=== PATIENT | male | born 1940 | race Caucasian/White ===

== ENCOUNTER 2017-08-26 16:28 | Inpatient (IN) | payer MEDICARE ==
--- NOTE | 2017-08-26 17:01 | C.PDOC ---
History Of Present Illness 76-year-old male BIBA s/p syncopal episode. As per him and , he went to the bathroom to have a bowel movement after which he got up, and became diaphoretic and lightheaed. states his lips turned blue, and he syncopized for "ten minutes". She denies head injury. Patient denies palpitations, chest pain or shortness of breath prior to episode. Patient had a similar episode in past, was told he had a mild stroke at the time. Patient denies visual changes, slurred speech, sensory changes, extremity weakness, facial droop. Time Seen by Provider: 08/26/17 16:44 Chief Complaint (Nursing): Weakness/Neurological Deficit History Per: Patient, Family History/Exam Limitations: no limitations Onset/Duration Of Symptoms: Other (Prior to arrival) Activity At Onset Of Symptoms: Standing Associated Symptoms Preceding Syncopal Episode: Lightheadedness Seizure Or Post-ictal Symptoms: None Fall Associated With With Symptoms: Yes, No Injury As Result Of Fall Past Medical History Reviewed: Historical Data, Nursing Documentation, Vital Signs Vital Signs: Last Vital Signs Temp 97.8 F 08/30/17 16:00 Pulse 87 08/30/17 16:00 Resp 20 08/30/17 16:00 BP 120/80 08/30/17 16:00 Pulse Ox 95 08/30/17 16:00 - Medical History PMH: No Chronic Diseases Family History: States: No Known Family Hx Review Of Systems Except As Marked, All Systems Reviewed And Found Negative. Constitutional: Negative for: Fever, Chills Cardiovascular: Negative for: Chest Pain, Palpitations Respiratory: Negative for: Shortness of Breath Gastrointestinal: Negative for: Nausea, Vomiting, Abdominal Pain, Diarrhea Musculoskeletal: Negative for: Neck Pain Neurological: Positive for: Dizziness, Other (syncope). Negative for: Weakness , Numbness, Change in Speech, Altered Mental Status, Headache Physical Exam - Physical Exam Appears: Well, Non-toxic, No Acute Distress Skin: Warm, Dry, No Rash Head: Atraumatic, Normacephalic Eye(s): bilateral: Normal Inspection (no nystagmus), PERRL, EOMI Oral Mucosa: Moist Neck: Normal, Normal ROM Cardiovascular: Rhythm Regular Respiratory: Normal Breath Sounds, No Rales, No Rhonchi, No Wheezing Gastrointestinal/Abdominal: Normal Exam, Bowel Sounds, Soft, No Tenderness Extremity: Normal ROM Extremity: Bilateral: Atraumatic, Normal Color And Temperature, Normal ROM Neurological/Psych: Oriented x3, Normal Speech, Normal Cognition, Normal Cranial Nerves, No Cerebellar Signs, Normal Motor, Normal Sensation ED Course And Treatment - Laboratory Results Result Diagrams: 08/29/17 08:35 08/30/17 08:12 ECG: Interpreted By Me, Viewed By Me ECG Rhythm: Sinus Rhythm ECG Interpretation: No Acute Changes (normal axis, no acute ST/T wave changes) O2 Sat by Pulse Oximetry: 100 (on RA) Pulse Ox Interpretation: Normal - CT Scan/US CT HEAD Other Rad Studies (CT/US): Read By Radiologist, Radiology Report Reviewed CT/US Interpretation: Accession No. : [id number]. Patient Name / ID : DAVID GONZALEZ / [id number]. Exam Date : 08/26/2017 17:40:21 ( Approved ). Study Comment : Sex / Age : M / 76Y. Creator : TAYO GONZALES. Dictator : Welder Experimental : Psychiatric Clinical Nurse Specialist : TAYO GONZALES. Approver2 : Report Date : 08/26/2017 18:03:00. My Comment : . [facility] Division of Radiology. [address] [place] [address]. Tel. no. . . . Patient Name: LISA HERNANDEZ . Pt. Address: [address] [place] [address] Rec #: [id number]. [place] [address]: Claudine Addison DO Pt Phone: Order Location: [facility] : 1940 Male Age: 76 Order #: [id number]. Reason for exam: syncope. . . . . . CT Scan. . . HEAD W/O CONTRAST Exam Date: 08/26/17. . This imaging exam was performed at [facility]. EXAM: CT Head Without Intravenous Contrast. . EXAM DATE/TIME: 08/26/2017 5:00 PM. . CLINICAL HISTORY: 76 years old, male; Signs and symptoms; Syncope and collapse. . TECHNIQUE: Axial computed tomography images of the head/brain without intravenous. contrast. All CT scans at this facility use one or more dose reduction. techniques, viz.: automated exposure control; ma/kV adjustment per patient size. (including targeted exams where dose is matched to indication; i.e. head); or. iterative reconstruction technique. . COMPARISON: There are no prior studies for comparison. . FINDINGS: Brain: There is dilatation of sulci gyri and ventricles. There is no midline. shift. There is decreased attenuation in periventricular white matter. There. are multiple small age-indeterminate lacunar infarcts in the basal ganglia. bilaterally. There are small focal age indeterminate lacunar type infarcts in. periventricular white matter bilaterally. There are no focal masses. There are. no focal hemorrhages. Garg- white differentiation is visualized. Ventricles: See above. Bones: Cranial vault is intact. Soft tissues: unremarkable. Sinuses: There is no acute sinusitis. Ears and mastoids: Middle ears and mastoids are unremarkable. Orbits: Orbital contents are unremarkable. . IMPRESSION: Atrophy and small vessel disease; age indeterminate basal ganglia. and white matter lacunar infarcts, and oblique. . Dictated By: Tayo Gonzales MD., MD. Dictated Date/Time: 08/26/171802. Signed By: Tayo Gonzales MD. Date Signed: 08/26/171802. Transcribed By: [facility] [place]. Transcribe Date/Time: 1802. MERVAT/CARMEN Progress Note: Blood work, EKG, CT Head and UA ordered and reviewed. Patient given PO tylenol for headache, IV NS bolus, IV insulin for hyperglycemia. PO ASA given after CT head (-) for bleed. - Physician Consult Information Physician Contacted: Jeana Brothers Outcome Of Conversation: Discussed patient with Dr. Brothers, agrees with admission for syncope, hypergylcemia, elevated BUN. Patient's production superintendent hydro is Dr. Unger, will enter consult. Medical Decision Making Medical Decision Making: differential diagnoses considered: syncope - vasovagal vs cardiogenic vs neurogenic, dehydration, renal failure, CVA/TIA,, PE Disposition - Disposition Disposition: HOSPITALIZED Disposition Time: 18:25 Condition: STABLE - Clinical Impression Clinical Impression: Hyperglycemia, Elevated BUN, Syncope - Scribe Statement The provider has reviewed the documentation as recorded by the Scribe (Francisca Chinchilla) All medical record entries made by the Scribe were at my direction and personally dictated by me. I have reviewed the chart and agree that the record accurately reflects my personal performance of the history, physical exam, medical decision making, and the department course for this patient. I have also personally directed, reviewed, and agree with the discharge instructions and disposition. Decision To Admit - Pt Status Changed To: Hospital Disposition Of: Inpatient - Admit Certification Admit to Inpatient:: After my assessment, the patient will require hospitalization for at least two midnights. This is because of the severity of symptoms shown, intensity of services needed, and/or the medical risk in this patient being treated as an outpatient. - InPatient: Physician Admission Certification: I certify that this patient requires 2 or more midnights of care for the following reason:: see notes - . Bed Request Type: Telemetry Admitting Physician: Jeana Brothers Patient Diagnosis: Syncope, Hyperglycemia, Elevated BUN
[2017-08-26 17:40] LABS: BASO # 0.1 K/uL (0.0-0.2); BASO % 1.1 % (0.0-2.0); EOS # 0.1 K/uL (0.0-0.7); EOS % 1.3 % (0.0-4.0); HEMATOCRIT 39.8 % (35.0-51.0); LYMPH % 9.1 % (20.0-40.0); MEAN CELL VOLUME 91.2 fL (80.0-94.0); MEAN CORPUSCULAR HEMOGLOBIN 30.5 pg (27.0-31.0); MEAN CORPUSCULAR HGB CONC 33.4 g/dL (33.0-37.0); MONO # 0.7 K/uL (0.0-0.8); MONO % 6.9 % (0.0-10.0); PLATELET COUNT 203 K/uL (130-400); RED CELL DISTRIBUTION WIDTH 12.3 % (11.5-14.5); WHITE BLOOD COUNT 10.4 K/uL (4.8-10.8)
[2017-08-26 17:58] LABS: TROPONIN I 0.028 ng/mL (0.00-0.120)
--- NOTE | 2017-08-26 18:04 | CT ---
EXAM: CT Head Without Intravenous Contrast EXAM DATE/TIME: 08/26/2017 5:00 PM CLINICAL HISTORY: 76 years old, male; Signs and symptoms; Syncope and collapse TECHNIQUE: Axial computed tomography images of the head/brain without intravenous contrast. All CT scans at this facility use one or more dose reduction techniques, viz.: automated exposure control; ma/kV adjustment per patient size (including targeted exams where dose is matched to indication; i.e. head); or iterative reconstruction technique. COMPARISON: There are no prior studies for comparison. FINDINGS: Brain: There is dilatation of sulci gyri and ventricles. There is no midline shift. There is decreased attenuation in periventricular white matter. There are multiple small age-indeterminate lacunar infarcts in the basal ganglia bilaterally. There are small focal age indeterminate lacunar type infarcts in periventricular white matter bilaterally. There are no focal masses. There are no focal hemorrhages. Garg-white differentiation is visualized. Ventricles: See above Bones: Cranial vault is intact. Soft tissues: unremarkable Sinuses: There is no acute sinusitis. Ears and mastoids: Middle ears and mastoids are unremarkable. Orbits: Orbital contents are unremarkable. IMPRESSION: Atrophy and small vessel disease; age indeterminate basal ganglia and white matter lacunar infarcts, and oblique
[2017-08-26 18:15] LABS: ALB/GLOB RATIO 1.3 (1.0-2.1); CALCIUM 9.7 mg/dl (8.6-10.4); POTASSIUM 5.1 mmol/L (3.6-5.2); TOTAL PROTEIN 7.3 g/dL (6.3-8.3)
[2017-08-26] MEDS ORDERED: Sodium Chloride 0.9% 1,000 ML IV ONE (18:15)
[2017-08-26] MEDS ORDERED: (Novolin R) Insulin Human Regular 100 units/ml vial IV STA (18:16)
[2017-08-26] MEDS ORDERED: Sodium Chloride 0.9% 1,000 ML ONE (18:21)
[2017-08-26] MEDS ORDERED: (Novolin R) Insulin Human Regular 100 units/ml vial ONE (18:21)
[2017-08-26 18:33] LABS: NEUTROPHIL 80 % (50-75); TOTAL CELLS COUNTED 100
[2017-08-27] MEDS ORDERED: (Novolin R) Insulin Human Regular 100 units/ml vial IV ONE (02:33)
[2017-08-27 07:23] LABS: HEMATOCRIT 33.9 % (35.0-51.0); MEAN CELL VOLUME 90.6 fL (80.0-94.0); MEAN CORPUSCULAR HEMOGLOBIN 30.9 pg (27.0-31.0); MEAN CORPUSCULAR HGB CONC 34.1 g/dL (33.0-37.0); MEAN PLATELET VOLUME 10.1 fL (7.2-11.7); RED CELL DISTRIBUTION WIDTH 12.1 % (11.5-14.5); WHITE BLOOD COUNT 9.1 K/uL (4.8-10.8)
[2017-08-27 08:07] LABS: CHOLESTEROL 114 mg/dL (0-199); IRON 34 ug/dL (49-181)
[2017-08-27 08:13] LABS: CALCIUM 9.1 mg/dl (8.6-10.4); POTASSIUM 4.2 mmol/L (3.6-5.2)
[2017-08-27] MEDS: (Novolin R) Insulin Human Regular 100 units/ml vial SC SCH ×4 (08:21→21:39)
[2017-08-27 08:28] LABS: THYROID STIMULATING HORMONE 1.4 mIU/L (0.46-4.68)
[2017-08-27 09:03] LABS: FOLATE > 20.0 ng/mL
[2017-08-27] MEDS ORDERED: Metoprolol Succinate 100 mg XL Tab PO SCH (10:00)
[2017-08-27] MEDS ORDERED: Pantoprazole 20 mg EC Tab PO SCH (10:00)
[2017-08-27 10:24] LABS: FREE T4 0.86 ng/dL (0.78-2.19)
[2017-08-27] MEDS: Multiple Vitamins Tab PO SCH (10:24)
[2017-08-27 10:38] LABS: THYROID STIMULATING HORMONE 1.51 mIU/L (0.46-4.68)
--- NOTE | 2017-08-27 12:52 | CP.PCM.CON ---
History of Present Illness - History of Present Illness History of Present Illness: I was asked to evaluate patient by Dr Brothers. Patient is a 76 year old male with PMH HTN, IDDM who present after a syncopal event. The patient states he was at home and attemtped to use the bathroom. After leaving the bathroom, he was noted to have dizziness and syncope. The patient denies associated chest pain or dyspnea. he i snot clear as to the stes of the events after his syncope. He was brought to [facility] for further evaluation. Review of Systems - Constitutional Constitutional: absent: As Per HPI, Anorexia, Chills, Daytime Sleepiness, Excessive Sweating, Fatigue, Fever, Frequent Falls, Headache, Increased Appetite , Lethargy, Malaise, Night Sweats, Snoring, Sleep Apnea, Weight Gain, Weight Loss, Weakness, Other - EENT Eyes: absent: As Per HPI, Blind Spots, Blurred Vision, Change in Vision, Decreased Night Vision, Diplopia, Discharge, Dry Eye, Exophthalmos, Floaters, Irritation, Itchy Eyes, Loss of Peripheral Vision, Pain, Photophobia, Requires Corrective Lenses, Sees Flashes, Spots in Vision, Tunnel Vision, Other Visual Disturbances, Loss of Vision, Other Ears: absent: As Per HPI, Decreased Hearing, Ear Discharge, Ear Pain, Tinnitus, Abnormal Hearing, Disequilibrium, Dizziness, Other Nose/Mouth/Throat: absent: As Per HPI, Epistaxis, Nasal Congestion, Nasal Discharge, Nasal Obstruction, Nasal Trauma, Nose Pain, Post Nasal Drip, Sinus Pain, Sinus Pressure, Bleeding Gums, Change in Voice, Dental Pain, Dry Mouth, Dysphagia, Halitosis, Hoarsness, Lip Swelling, Mouth Lesions, Mouth Pain, Odynophagia, Sore Throat, Throat Swelling, Tongue Swelling, Facial Pain, Neck Pain, Neck Mass, Other - Cardiovascular Cardiovascular: absent: As Per HPI, Acrocyanosis, Chest Pain, Chest Pain at Rest , Chest Pain with Activity, Claudication, Diaphoresis, Dyspnea, Dyspnea on Exertion, Edema, Irregular Heart Rhythm, Pain Radiating to Arm/Neck/Jaw, Leg Edema, Leg Ulcers, Lightheadedness, Orthopnea, Palpitations, Paroxysmal Nocturnal Dyspnea, Pedal Edema, Radiating Pain, Rapid Heart Rate, Slow Heart Rate, Syncope, Other - Respiratory Respiratory: absent: As Per HPI, Cough, Dyspnea, Hemoptysis, Dyspnea on Exertion , Wheezing, Snoring, Stridor, Pain on Inspiration, Chest Congestion, Excessive Mucous Production, Change in Mucous Color, Pain with Coughing, Other - Gastrointestinal Gastrointestinal: absent: As Per HPI, Abdominal Pain, Belching, Bloating, Change in Bowel Habits, Change in Stool Character, Coffee Ground Emesis, Constipation, Cramping, Diarrhea, Dyspepsia, Dysphagia, Early Satiety, Excessive Flatus, Fecal Incontinence, Heartburn, Hematemesis, Hematochezia, Loose Stools, Melena, Nausea, Odynophagia, Temesmus, Vomiting, Other - Genitourinary Genitourinary: absent: As Per HPI, Change in Urinary Stream, Difficulty Urinating, Dysuria, Flank Pain, Hematuria, Pyuria, Nocturia, Urinary Incontinence, Urinary Frequency, Urinary Hesitance, Urinary Urgency, Voiding Freq/Small Amts, Freq UTI, Hx Renal/Bladder Calculi, Hx /Renal Surgery, Bladder Distension, Other - Musculoskeletal Musculoskeletal: absent: As Per HPI, Abnormal Gait, Arthralgias, Atrophy, Back Pain, Deformity, Joint Swelling, Limited Range of Motion, Loss of Height, Muscle Cramps, Muscle Weakness, Myalgias, Neck Pain, Numbness, Radiating Pain into Limb, Stiffness, Tingling, Other - Integumentary Integumentary: absent: As Per HPI, Acne, Alopecia, Bleeding Lesions, Change in Hair, Change in Nails, Change in Pigmentation, Changing Lesions, Dry Skin, Erythema, Furuncle, Hirsutism, Lesions, New Lesions, Non-Healing Lesions, Photosensitivity, Pruritus, Rash, Skin Pain, Skin Ulcer, Sores, Striae, Swelling , Unusual Bruising, Wounds, Jaundice, Other - Neurological Neurological: Syncope - Psychiatric Psychiatric: absent: As Per HPI, Abnormal Sleep Pattern, Anhedonia, Anxiety, Auditory Hallucinations, Behavioral Changes, Change in Appetite, Change in Libido, Confusion, Depression, Difficulty Concentrating, Hallucinations, Homicidal Ideation, Hopelessness, Irritability, Memory Loss, Mood Swings, Panic Attacks, Paranoia, Suicidal Ideation, Visual Hallucinations, Tactile Hallucinations, Other - Endocrine Endocrine: absent: As Per HPI, Change in Body Appearance, Change in Libido, Cold Intolorance, Deepening of Voice, Excessive Sweating, Fatigue, Flushing, Heat Intolorance, Increase in Ring/Shoe/Hat Size, Palpitations, Polydipsia, Polyphagia, Polyuria, Other - Hematologic/Lymphatic Hematologic: absent: As Per HPI, Easy Bleeding, Easy Bruising, Lymphadenopathy, Other Past Patient History - Infectious Disease Hx of Infectious Diseases: None - Past Medical History & Family History Past Medical History?: Yes - Past Social History Smoking Status: Never Smoked - CARDIAC Hx Hypertension: Yes Other/Comment: hx of rheumatic fever - PULMONARY Hx Respiratory Disorders: No - NEUROLOGICAL Hx Neurological Disorder: Yes Hx Syncope: Yes - HEENT Hx HEENT Problems: No - RENAL Hx Chronic Kidney Disease: No - ENDOCRINE/METABOLIC Hx Endocrine Disorders: Yes Hx Diabetes Mellitus Type 2: Yes - HEMATOLOGICAL/ONCOLOGICAL Hx Blood Disorders: No - INTEGUMENTARY Hx Dermatological Problems: No - MUSCULOSKELETAL/RHEUMATOLOGICAL Hx Musculoskeletal Disorders: No Hx Falls: Yes - GASTROINTESTINAL Hx Gastrointestinal Disorders: No - GENITOURINARY/GYNECOLOGICAL Hx Genitourinary Disorders: No - PSYCHIATRIC Hx Psychophysiologic Disorder: No Hx Substance Use: No - SURGICAL HISTORY Hx Surgeries: Yes Other/Comment: left knee replacement, and left nerve repair, left and right hand nerve repair - ANESTHESIA Hx Anesthesia: Yes Hx Anesthesia Reactions: No Hx Malignant Hyperthermia: No Has any member of the family had a problem w/ anesthesia?: No Meds Allergies/Adverse Reactions: Allergies Allergy/AdvReac Type Severity Reaction Status Date / Time Penicillins Allergy Mild Verified 08/26/17 16:58 - Medications Medications: Current Medications Glipizide (Glucotrol) 10 mg PO BID [facility] Last Admin: 08/27/17 10:23 Dose: 10 mg Insulin Human Regular (Novolin R) 0 unit SC [facility] PRN Reason: Protocol Last Admin: 08/27/17 12:30 Dose: 5 unit Metoprolol Tartrate (Lopressor) 100 mg PO DAILY [facility] Last Admin: 08/27/17 10:23 Dose: 100 mg Multivitamins (Hexavitamin) 1 tab PO DAILY [facility] Last Admin: 08/27/17 10:24 Dose: 1 tab Pantoprazole Sodium (Protonix Ec Tab) 20 mg PO DAILY [facility] Last Admin: 08/27/17 10:23 Dose: 20 mg Rosuvastatin Calcium (Crestor) 5 mg PO [facility] Physical Exam - Constitutional Appears: Non-toxic - Head Exam Head Exam: NORMAL INSPECTION - Eye Exam Eye Exam: Normal appearance - Neck Exam Neck exam: Positive for: Full Rom - Respiratory Exam Respiratory Exam: NORMAL BREATHING PATTERN - Cardiovascular Exam Cardiovascular Exam: REGULAR RHYTHM - GI/Abdominal Exam GI & Abdominal Exam: Normal Bowel Sounds - Rectal Exam Rectal Exam: Deferred - Extremities Exam Extremities exam: Positive for: normal inspection, tenderness - Neurological Exam Neurological exam: Alert - Psychiatric Exam Psychiatric exam: Normal Mood - Skin Skin Exam: Intact Results - Vital Signs Recent Vital Signs: Last Vital Signs Temp 98.0 F 08/27/17 09:03 Pulse 79 08/27/17 09:03 Resp 20 08/27/17 09:03 BP 94/58 L 08/27/17 09:03 Pulse Ox 96 08/27/17 09:03 - Labs Result Diagrams: 08/27/17 07:12 08/27/17 07:12 Labs: Laboratory Results - last 24 hr 08/26/17 08/26/17 08/26/17 17:28 17:28 17:28 WBC 10.4 RBC 4.36 L Hgb 13.3 Hct 39.8 MCV 91.2 MCH 30.5 MCHC 33.4 RDW 12.3 Plt Count 203 MPV 10.0 Neut % (Auto) 81.6 H Lymph % (Auto) 9.1 L Child[place] % (Auto) 6.9 Eos % (Auto) 1.3 Baso % (Auto) 1.1 Neut # 8.5 H Lymph # 1.0 Childress # 0.7 Eos # 0.1 Baso # 0.1 Neutrophils % (Manual) 80 H Lymphocytes % (Manual) 16 L Monocytes % (Manual) 4 Platelet Estimate Normal PT 10.6 INR 1.0 APTT 27 Sodium 135 Potassium 5.1 Chloride 97 L Carbon Dioxide 26 Anion Gap 18 BUN 41 H Creatinine 2.1 H Est GFR ( Amer) 37 Est GFR (Non-Af Amer) 31 POC Glucose (mg/dL) Random Glucose 558 H* Hemoglobin A1c Calcium 9.7 Iron TIBC % Saturation Total Bilirubin 1.0 AST 25 ALT 36 Alkaline Phosphatase 92 Total Creatine Kinase 48 L CK-MB (Mass) 1.84 Troponin I 0.0280 Total Protein 7.3 Albumin 4.2 Globulin 3.1 Albumin/Globulin Ratio 1.3 Triglycerides Cholesterol LDL Cholesterol Direct HDL Cholesterol Vitamin B12 Folate Free T4 TSH 3rd Generation Prolactin Serum Ketones 08/26/17 08/26/17 08/26/17 19:50 20:00 21:12 WBC RBC Hgb Hct MCV MCH MCHC RDW Plt Count MPV Neut % (Auto) Lymph % (Auto) Child[place] % (Auto) Eos % (Auto) Baso % (Auto) Neut # Lymph # Child[place] # Eos # Baso # Neutrophils % (Manual) Lymphocytes % (Manual) Monocytes % (Manual) Platelet Estimate PT INR APTT Sodium Potassium Chloride Carbon Dioxide Anion Gap BUN Creatinine Est GFR ( Amer) Est GFR (Non-Af Amer) POC Glucose (mg/dL) 422 H* 438 H* Random Glucose Hemoglobin A1c Calcium Iron TIBC % Saturation Total Bilirubin AST ALT Alkaline Phosphatase Total Creatine Kinase CK-MB (Mass) Troponin I Total Protein Albumin Globulin Albumin/Globulin Ratio Triglycerides Cholesterol LDL Cholesterol Direct HDL Cholesterol Vitamin B12 Folate Free T4 TSH 3rd Generation Prolactin Serum Ketones Negative 08/27/17 08/27/17 08/27/17 02:01 06:39 07:12 WBC RBC Hgb Hct MCV MCH MCHC RDW Plt Count MPV Neut % (Auto) Lymph % (Auto) Child[place] % (Auto) Eos % (Auto) Baso % (Auto) Neut # Lymph # Child[place] # Eos # Baso # Neutrophils % (Manual) Lymphocytes % (Manual) Monocytes % (Manual) Platelet Estimate PT INR APTT Sodium Potassium Chloride Carbon Dioxide Anion Gap BUN Creatinine Est GFR ( Amer) Est GFR (Non-Af Amer) POC Glucose (mg/dL) 416 H* 316 H Random Glucose Hemoglobin A1c Calcium Iron TIBC % Saturation Total Bilirubin AST ALT Alkaline Phosphatase Total Creatine Kinase CK-MB (Mass) Troponin I Total Protein Albumin Globulin Albumin/Globulin Ratio Triglycerides 114 Cholesterol 114 LDL Cholesterol Direct 43 HDL Cholesterol 38 Vitamin B12 751 Folate > 20.0 Free T4 TSH 3rd Generation Prolactin 5.2 Serum Ketones 08/27/17 08/27/17 08/27/17 07:12 07:12 07:12 WBC 9.1 RBC 3.75 L Hgb 11.6 L Hct 33.9 L MCV 90.6 MCH 30.9 MCHC 34.1 RDW 12.1 Plt Count 175 MPV 10.1 Neut % (Auto) Lymph % (Auto) Child[place] % (Auto) Eos % (Auto) Baso % (Auto) Neut # Lymph # Child[place] # Eos # Baso # Neutrophils % (Manual) Lymphocytes % (Manual) Monocytes % (Manual) Platelet Estimate PT INR APTT Sodium Potassium Chloride Carbon Dioxide Anion Gap BUN Creatinine Est GFR ( Amer) Est GFR (Non-Af Amer) POC Glucose (mg/dL) Random Glucose Hemoglobin A1c 12.6 H Calcium Iron 34 L TIBC 265 % Saturation 13 L Total Bilirubin AST ALT Alkaline Phosphatase Total Creatine Kinase CK-MB (Mass) Troponin I Total Protein Albumin Globulin Albumin/Globulin Ratio Triglycerides Cholesterol LDL Cholesterol Direct HDL Cholesterol Vitamin B12 Folate Free T4 TSH 3rd Generation Prolactin Serum Ketones 08/27/17 08/27/17 08/27/17 07:12 09:54 12:11 WBC RBC Hgb Hct MCV MCH MCHC RDW Plt Count MPV Neut % (Auto) Lymph % (Auto) Child[place] % (Auto) Eos % (Auto) Baso % (Auto) Neut # Lymph # Child[place] # Eos # Baso # Neutrophils % (Manual) Lymphocytes % (Manual) Monocytes % (Manual) Platelet Estimate PT INR APTT Sodium 138 Potassium 4.2 Chloride 103 Carbon Dioxide 28 Anion Gap 11 BUN 37 H Creatinine 1.8 H Est GFR ( Amer) 44 Est GFR (Non-Af Amer) 37 POC Glucose (mg/dL) 352 H Random Glucose 316 H Hemoglobin A1c Calcium 9.1 Iron TIBC % Saturation Total Bilirubin AST ALT Alkaline Phosphatase Total Creatine Kinase CK-MB (Mass) Troponin I Total Protein Albumin Globulin Albumin/Globulin Ratio Triglycerides Cholesterol LDL Cholesterol Direct HDL Cholesterol Vitamin B12 Folate Free T4 0.86 TSH 3rd Generation 1.40 1.51 Prolactin Serum Ketones - EKG Data EKG Interpreted by: Myself EKG shows normal: Sinus rhythm Assessment & Plan (1) Syncope Assessment and Plan: uclear etiology. recommend evaluation of left ventricular function with echocardiogram. monitor on telemetry. neuro work up is in progress. Status: Acute (2) Diabetes mellitus Assessment and Plan: medical therapy and management of blood glucose. Status: Acute
[2017-08-27] MEDS: Enoxaparin 30 mg Syringe SC SCH (21:48)
--- NOTE | 2017-08-28 05:04 | CON ---
DATE: 08/27/2017 UNIT NUMBER: [id number] ATTENDING PHYSICIAN: Jeana Brothers MD. The patient is in room number 564, bed 8. REASON FOR CONSULTATION: Syncopal attack. CHIEF COMPLAINT: The patient was brought in by family members via ambulance with a history of passing out spell in the bathroom of his home. From neurologic point of view, I was called in to evaluate him for further management. HISTORY OF PRESENT ILLNESS: Mr. Suresh Aldana is 76-year-old right-handed male, usual state of health, around 1:30 p.m., he went to the bathroom for defecation. Following defecation, before he stood up, he felt dizzy and lightheaded. In spite of that, he went on to get up and then he realized he was on the floor for about 10 minutes. From the fall, he regained his consciousness. He called his grandson for help. They came in to help him out and they brought him here for further evaluation. PAST MEDICAL HISTORY: Hypertension, cardiac failure. History of similar attacks happened 4 years ago. He could not recall what workup was done at that time. History of significant weight loss and sleep disturbances, diabetes mellitus. PERSONAL HISTORY: Denies smoking or alcohol use. ALLERGIES: No known allergies. REVIEW OF SYSTEMS: Sixteen-point system been reviewed. From neuro, syncopal attack. MEDICATIONS: He is on glipizide,Crestor, Glucotrol XL, vitamin, Lopressor, Lovenox, Novolin and Protonix. PHYSICAL EXAMINATION: VITAL SIGNS: Blood pressure 118/75, mean arterial pressure of 89, respiratory rate 16, temperature afebrile. NECK: Supple. No carotid bruit. HEART: Sounds regular. CHEST: Fair entry. EXTREMITIES: No edema. NEUROLOGIC EXAMINATION: Mental status: He is awake, alert and oriented to person, place and time. No anterograde amnesia. Significant retrograde amnesia. No confabulation. No suicidal ideation. No sign of depression. Cranial nerve examination: Visual field intact. Pupil reactive. Extraocular movement normal. No nystagmus. No facial sensory deficit. Significant facial asymmetry manifesting as flattening of the right nasolabial fold. Hearing is normal. Tongue is midline. Good gag. Motor examination: On outpatient hand with eyes closed, no drift noted. Power is symmetric on either side. Sensory tremor noted on outstretched hand with eyes closed. No asterixis. Deep tendon reflexes are absent, both knees are absent, both ankles are absent. Plantars are upgoing on the right side. Right leg was externally rotated during the resting position. Coordination: Mild [id number] dysmetria noted on both sides, right more than his left side. LABORATORY DATA: Blood workup: WBC 9.1, hemoglobin 11.6, hematocrit 33.9, platelet 175. Sodium 138, potassium 4.2, chloride 103, bicarbonate 28, BUN 37, creatinine 1.8, GFR 37, glucose 273. Cholesterol 114, LDL 114, HDL 43. B12 of 751, prolactin 5.2. TSH 1.40. During the admission, the initial CAT scan was reviewed, no acute pathology is noted except atrophy and periventricular ischemic changes. CONCLUSION: 1. As per neurologic examination, patient does show the evidence of syncopal attack, which probably is secondary to his defecation. From neurological point of view, vertebrobasilar insufficiency and drop attack should be ruled out. There is also evidence of bilateral distal symmetric sensory motor neuropathy, which probably is secondary to his diabetes mellitus. 3. The patient also showed evidence of left subcortical dysfunction manifesting as mild right nasolabial fold flattening with Babinski sign on his right side. RECOMMENDATIONS: 1. MRI of the brain. 2. The patient should be on antiplatelets. 3. Blood pressure medication and statin can be given at a lower dose. 4. The patient should be kept out of the bed and physical therapy should be initiated while he is in the hospital. Salas Boyce MD
[2017-08-28] MEDS: (Novolin R) Insulin Human Regular 100 units/ml vial SC SCH ×5 (08:10→21:56)
[2017-08-28] MEDS ORDERED: Perflutren Lipid Microsphere 1.5 ML SUS IV ONE ×2 (08:43→09:00)
[2017-08-28] MEDS: Multiple Vitamins Tab PO SCH (11:06)
[2017-08-28] MEDS: Enoxaparin 30 mg Syringe SC SCH ×2 (11:07→22:45)
--- NOTE | 2017-08-28 11:57 | HP ---
CHIEF COMPLAINT: Syncopal attack. HISTORY OF PRESENT ILLNESS: Mr. Suresh Aldana is a 76-year-old male with past medical history of hypertension and insulin-dependent diabetes mellitus, who came to the emergency room after syncopal attack. The patient stated that he was at home and attempted to use the bathroom. After getting into the bathroom, he was noted to have dizziness and syncope and passed out. He does not remember what happened. Then, patient's nephew called 911. Patient denies associated chest pain or dyspnea. He was brought to [facility] for evaluation, admitted the patient, called Neurology consult, and Cardiology consulted to rule out arrhythmia. The patient's private quality assistant is Dr. Justin Unger, and his consult was called. PAST MEDICAL HISTORY: History of hypertension. FAMILY HISTORY: Father and mother, noncontributory. HABITS: No smoking. No drug. No ethanol. ALLERGIES: PATIENT IS ALLERGIC TO PENICILLIN. HOME MEDICATIONS: Reviewed by me. REVIEW OF SYSTEMS: Patient was seen and examined at the bedside, looking comfortable at the time of examination. No chest pain. No shortness of breath. No nausea, vomiting, or diarrhea. No hematochezia. No swelling of the legs. No palpitation. No headache or dizziness. PHYSICAL EXAMINATION: VITAL SIGNS: Temperature 98, pulse 78, respiratory rate 20, blood pressure 118/75. HEENT: Head is normocephalic and atraumatic. Eyes, PERRLA. Extraocular muscles intact. Conjunctivae clear. Nose patent. Mucous membranes are moist. NECK: Supple. No carotid bruits, JVD, or thyromegaly. CHEST: Bilaterally symmetrical. HEART: S1 and S2 positive. LUNGS: Clear to auscultation. ABDOMEN: Soft. Bowel sounds present. No organomegaly. EXTREMITIES: No edema. No cyanosis. NEUROLOGIC: The patient is awake and alert. Moving all four extremities. No focal deficit. MEDICATIONS: Crestor, Glucotrol, multivitamin, Lopressor, Lovenox, Novolin, Pepcid, and Plavix. LABORATORY DATA: White blood cell is 9.5, hemoglobin 11.6, hematocrit 33.9, platelet 175,000. Sodium 138; potassium 4.2; BUN 37; creatinine 1.8; glucose 272, 273; hemoglobin A1c 12.6. ASSESSMENT AND PLAN: Mr. Suresh Aldana is a 76-year-old male with anemia; renal insufficiency; uncontrolled diabetes mellitus, hemoglobin A1c 12.6. TSH is within normal limits. Cholesterol within normal limits. Serum ketones are negative. CAT scan of the head done, reviewed by me, atrophy and small vessel disease, age indeterminate, basal ganglia and white matter lacunar infarcts on oblique. Required Cardiology consult to rule out arrhythmias and Neurology consult for syncopal attack, but unclear etiology. Recommended evaluation of left ventricular function with echocardiography as per quality assistant. Patient is in telemetry. Neuro workup is in the process. Put patient on sliding scale. Fall precautions. Gastrointestinal and deep venous thrombosis prophylaxes. Repeat labs. We will follow up. Jeana Brothers MD MTDD
--- NOTE | 2017-08-28 18:42 | CP.PCM.PN ---
Subjective - Date & Time of Evaluation Date of Evaluation: 08/28/17 Time of Evaluation: 18:40 - Subjective Subjective: I reviewed the echocardiogram. Left ventricular function is normal. The [facility]'s [facility] Objective - Vital Signs/Intake and Output Vital Signs (last 24 hours): Temp Pulse Resp BP Pulse Ox 98.1 F 68 20 120/70 95 08/28/17 15:26 08/28/17 15:26 08/28/17 15:26 08/28/17 15:26 08/28/17 15:26 Intake and Output: 08/28/17 08/28/17 06:59 18:59 Intake Total 700 850 Balance 700 850 - Medications Medications: Current Medications Clopidogrel Bisulfate (Plavix) 75 mg PO DAILY [facility] Last Admin: 08/28/17 11:06 Dose: 75 mg Enoxaparin Sodium (Lovenox) 30 mg SC Q12 [facility] Last Admin: 08/28/17 11:07 Dose: 30 mg Famotidine (Pepcid) 20 mg PO DAILY [facility] Last Admin: 08/28/17 11:06 Dose: 20 mg Glipizide (Glucotrol) 10 mg PO BID [facility] Last Admin: 08/28/17 18:11 Dose: 10 mg Insulin Human Regular (Novolin R) 0 unit SC ACHS [facility] PRN Reason: Protocol Last Admin: 08/28/17 18:12 Dose: 12 unit Metoprolol Tartrate (Lopressor) 100 mg PO DAILY [facility] Last Admin: 08/28/17 11:10 Dose: 100 mg Multivitamins (Hexavitamin) 1 tab PO DAILY [facility] Last Admin: 08/28/17 11:06 Dose: 1 tab Rosuvastatin Calcium (Crestor) 5 mg PO HS [facility] Last Admin: 08/27/17 21:12 Dose: 5 mg - Labs Labs: 08/27/17 07:12 08/27/17 07:12 PT 10.6 SECONDS (9.7-12.2) 08/26/17 17:28 INR 1.0 08/26/17 17:28 APTT 27 SECONDS (21-34) 08/26/17 17:28 Assessment and Plan (1) Syncope Status: Acute (2) Diabetes mellitus Status: Acute
--- NOTE | 2017-08-28 18:43 | MRI ---
PROCEDURE: MRI BRAIN WITHOUT CONTRAST HISTORY: STROKE COMPARISON: None. TECHNIQUE: Multiplanar, multisequence MR images of the brain were obtained without intravenous contrast enhancement. FINDINGS: HEMORRHAGE: Small cavernoma suggests at the right cerebellum inferomedially as well as at the left caudate head. No additional hemosiderin is appreciated throughout the remaining supra and infratentorial compartments. DWI: No evidence of an acute or early subacute infarction. BRAIN PARENCHYMA: Diffuse cerebral atrophy chronic microangiopathy are reiterated as well as the left thalamic lacune or infarction and likely bilateral basal ganglia and bilateral cerebellar hemispheres inferiorly. There is no mass effect. There is no suspicious extra-axial collection identified. VENTRICLES: Unremarkable. No hydrocephalus. CRANIUM: Unremarkable. ORBITS: Perineural edema is questioned related to the majority of the left optic nerve in the left orbit. Follow-up Orbits MRI without contrast is advised for additional characterization. PARANASAL SINUSES/MASTOIDS: Clear VASCULAR SYSTEM: Skull base flow voids intact. OTHER FINDINGS: None. IMPRESSION: No definite acute intracranial findings are appreciated when correlated with head CT 08/26/2017. 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 Chronic lacune infarcts are appreciated as described above as well as age related neuro degenerative changes. Perineural reaction at the left optic nerve is identified in the left orbit and follow-up Orbits MRI is advised without contrast for additional characterization.
[2017-08-29] MEDS: (Novolin R) Insulin Human Regular 100 units/ml vial SC SCH ×4 (08:50→21:08)
[2017-08-29 08:53] LABS: BASO # 0.1 K/uL (0.0-0.2); BASO % 0.6 % (0.0-2.0); EOS # 0.2 K/uL (0.0-0.7); EOS % 2.7 % (0.0-4.0); HEMATOCRIT 36.1 % (35.0-51.0); LYMPH # 1.5 K/uL (1.0-4.3); LYMPH % 16.7 % (20.0-40.0); MEAN CELL VOLUME 91.4 fL (80.0-94.0); MEAN CORPUSCULAR HEMOGLOBIN 31.2 pg (27.0-31.0); MEAN CORPUSCULAR HGB CONC 34.1 g/dL (33.0-37.0); MEAN PLATELET VOLUME 10.4 fL (7.2-11.7); MONO # 0.8 K/uL (0.0-0.8); RED CELL DISTRIBUTION WIDTH 12.1 % (11.5-14.5); WHITE BLOOD COUNT 9.1 K/uL (4.8-10.8)
[2017-08-29 09:14] LABS: ALB/GLOB RATIO 0.9 (1.0-2.1); CALCIUM 9.9 mg/dl (8.6-10.4); POTASSIUM 4.3 mmol/L (3.6-5.2); TOTAL PROTEIN 7.8 g/dL (6.3-8.3)
[2017-08-29] MEDS: Multiple Vitamins Tab PO SCH (09:37)
[2017-08-29] MEDS: Enoxaparin 30 mg Syringe SC SCH ×2 (09:37→21:53)
--- NOTE | 2017-08-29 12:55 | PN ---
DATE: The patient is a 76-year-old male. SUBJECTIVE: The patient is seen and examined at bedside, looking comfortable. No change in the status. The patient's presentation do not look like cardiac as per utility bag assembler. No fever. No chills. No nausea, vomiting or diarrhea. Now, no headache or dizziness. PHYSICAL EXAMINATION: VITAL SIGNS: Temperature 98.1, pulse 58, respiratory rate 20, blood pressure 130/70, and pulse oximetry 95%. HEENT: Head, normocephalic and atraumatic. Eyes, PERRLA. Extraocular muscles intact. Conjunctivae clear. Nose patent. Mucous membranes moist. NECK: Supple. No carotid bruits, JVD or thyromegaly. CHEST: Bilaterally symmetrical. HEART: S1 and S2 positive. LUNGS: Clear to auscultation. ABDOMEN: Soft. Bowel sounds present. No organomegaly. EXTREMITIES: No edema. No cyanosis. NEUROLOGIC: The patient is awake and alert. Follows simple commands. MEDICATIONS: Lovenox, Pepcid, Glucotrol, Novolin, Lopressor, multivitamins, and Crestor. LABORATORY DATA: White blood cells 9.1, hemoglobin 11.6, hematocrit 36.9, platelets 175,000. Sodium 138, potassium 4.2, BUN 37, creatinine 1.2, and glucose 216. ASSESSMENT: Mr. Rosi Prince is a 76-year-old male with anemia, renal insufficiency, hyperglycemia, came with syncopal attack, seen by the utility bag assembler, Dr. Justin Unger. Of note, per Dr. Unger, any presentation is directly cardiac in origin. The patient went for brain MRI, reviewed by me. No definite acute intracranial findings are appreciated. PLAN: Correlated with the head scan on 08/25/2017; two cavernomas, chronic lacunar infarctions are appreciated. Perineural reaction at the left optic nerve identified the left orbit and need followup orbit MRI. Went for carotid Doppler of the neck, these are pending. Seen by Dr. Salas Boyce, neurologist. According to him, as per neurologic examination, the patient does show the evidence of syncopal attack, which probably was secondary to his desiccation. From neurological point of view, vertebrobasilar insufficiency and drop attack should be ruled out. There is also evidence of bilateral distal asymmetrical level. The patient also showed evidence of left subcortical dysfunction manifested in mild right nasolabial fold attack. Flattening with Babinski sign on the right side. The patient should be on antiplatelets as per Neurology. Blood pressure medication pattern should be given at the lower dose. The patient should be kept out of bed and physical therapy should be appropriate. Gastrointestinal and deep vein thrombosis prophylaxes. Repeat labs. We will follow up. Jeana Brothers MD MTDSiddharth
--- NOTE | 2017-08-29 15:18 | VASCLAB ---
PROCEDURE: HISTORY: syncopy COMPARISON: None available. TECHNIQUE: Grayscale and duplex Doppler evaluation of the cervical carotid and vertebral arteries were performed. The common carotid, carotid bifurcations and cervical Internal Carotid Artery (ICA) and proximal External Carotid Artery (ECA) were evaluated. The vertebral arteries were evaluated for gross patency and flow direction. Report prepared by Elbert Garcia, BS, RVT FINDINGS: RIGHT CAROTID ARTERIES: 1. Common Carotid Artery: No significant focal plaque formation of the right common carotid artery. Maximum Peak Systolic velocity: 93 cm/sec: End-diastolic velocity 16 cm/sec. 2. Carotid Bifurcation: Calcific plaque formation. Maximum Peak Systolic velocity: 80 cm/sec: End-diastolic velocity 15 cm/sec. 3. Internal Carotid Artery: Minimal plaque formation of the right proximal ICA which does not result in hemodynamically significant stenosis. Plaque description: Calcific 3.1. Proximal Segment: Peak systolic velocity 62 cm/sec: End-diastolic velocity 21 cm/sec - % stenosis 0-15% 3.2. Middle Segment: Peak systolic velocity 66 cm/sec: End-diastolic velocity 21 cm/sec - % stenosis 0-15% 3.3. Distal Segment: Peak systolic velocity 60 cm/sec: End-diastolic velocity 22 cm/sec - % stenosis 0-15% 4. External Carotid Artery: No significant focal plaque formation. Peak systolic velocity 54 cm/sec 5. ICA/CCA Ratio: 0.9 LEFT CAROTID ARTERIES: 1. Common Carotid Artery: No significant focal plaque formation of the left common carotid artery. Maximum Peak Systolic velocity: 75 cm/sec: End-diastolic velocity 15 cm/sec. 2. Carotid Bifurcation: Calcific plaque formation. Maximum Peak Systolic velocity: 63 cm/sec: End-diastolic velocity 13 cm/sec. 3. Internal Carotid Artery: Minimal plaque formation of the left proximal ICA which does not result in hemodynamically significant stenosis. Plaque description: Heterogeneous 3.1. Proximal Segment: Peak systolic velocity 77 cm/sec: End-diastolic velocity 25 cm/sec - % stenosis 0-15% 3.2. Middle Segment: Peak systolic velocity 42 cm/sec: End-diastolic velocity 12 cm/sec - % stenosis 0-15% 3.3. Distal Segment: Peak systolic velocity 55 cm/sec: End-diastolic velocity 15 cm/sec - % stenosis 0-15% 4. External Carotid Artery: No significant focal plaque formation. Peak systolic velocity 69 cm/sec 5. ICA/CCA Ratio: 1.0 VERTEBRAL ARTERIES: 1. Right Vertebral Artery: The right vertebral artery flow direction is antegrade. 2. Left Vertebral Artery: The left vertebral artery flow direction is antegrade. OTHER FINDINGS: 1. Right Brachial Blood pressure: 118 mmHg. 2. Left Brachial Blood pressure: 122 mmHg. IMPRESSION: RIGHT: Duplex scan does not suggest hemodynamically significant stenosis of the right extracranial carotid arteries. LEFT: Duplex scan does not suggest hemodynamically significant stenosis of the left extracranial carotid arteries.
--- NOTE | 2017-08-29 16:13 | MRI ---
PROCEDURE: MRI OF THE BRAIN AND ORBITS WITHOUT CONTRAST HISTORY: abnormal mri brain /orbits COMPARISON: None. TECHNIQUE: Multiplanar, multisequence MR images of the brain and orbits were obtained without contrast enhancement. FINDINGS: ORBITS: Fluid signal intensity representing CSF surrounding the head of the left optic nerve is again seen to be somewhat more prominent at the right however no prominent intracranial masses appreciated and this pattern of fluid does not appear masslike. Given that is a unilateral finding and at there is prominent cerebral atrophy comment is likely of there is asymmetric atrophy related to left greater than right optic nerves which is highly favored over other intrinsic pathology such is optic neuritis, particularly in apparently asymptomatic patient relative to the left orbit. The lack of intravenous gadolinium limits interpretation. Clinically correlate further. Globes, extraocular muscles, and retrobulbar fat are unremarkable. No intraorbital mass or infectious/inflammatory changes. PERIORBITAL SPACE: Unremarkable. SINUSES: Grossly clear. BRAIN: No interval change compared to brain MRI 08/28/2017 as imaged. OTHER FINDINGS: None. IMPRESSION: Findings likely represent asymmetric atrophy of the left greater the right optic nerves exposing surrounding CSF greater the left optic nerve at the right as result. Please see discussion above. The lack of intravenous gadolinium limits interpretation somewhat.
[2017-08-29] MEDS ORDERED: Insulin Detemir 100 units/ml Vial (Levemir) SC SCH (22:00)
--- NOTE | 2017-08-29 22:54 | CP.PCM.CON ---
History of Present Illness - History of Present Illness History of Present Illness: uncontrolled DM Past Patient History - Infectious Disease Hx of Infectious Diseases: None - Past Medical History & Family History Past Medical History?: Yes - Past Social History Smoking Status: Never Smoked - CARDIAC Hx Cardiac Disorders: (Cardiac failure) Hx Hypertension: Yes - PULMONARY Hx Respiratory Disorders: No - NEUROLOGICAL Hx Neurological Disorder: Yes Hx Syncope: Yes - HEENT Hx HEENT Problems: No - RENAL Hx Chronic Kidney Disease: No - ENDOCRINE/METABOLIC Hx Endocrine Disorders: Yes Hx Diabetes Mellitus Type 2: Yes - HEMATOLOGICAL/ONCOLOGICAL Hx Blood Disorders: No - INTEGUMENTARY Hx Dermatological Problems: No - MUSCULOSKELETAL/RHEUMATOLOGICAL Hx Musculoskeletal Disorders: No Hx Falls: Yes - GASTROINTESTINAL Hx Gastrointestinal Disorders: No - GENITOURINARY/GYNECOLOGICAL Hx Genitourinary Disorders: No - PSYCHIATRIC Hx Psychophysiologic Disorder: No Hx Substance Use: No - SURGICAL HISTORY Hx Surgeries: Yes Other/Comment: left knee replacement, and left nerve repair, left and right hand nerve repair - ANESTHESIA Hx Anesthesia: Yes Hx Anesthesia Reactions: No Hx Malignant Hyperthermia: No Has any member of the family had a problem w/ anesthesia?: No Meds Allergies/Adverse Reactions: Allergies Allergy/AdvReac Type Severity Reaction Status Date / Time Penicillins Allergy Mild Verified 08/26/17 16:58 - Medications Medications: Current Medications Clopidogrel Bisulfate (Plavix) 75 mg PO DAILY [facility] Last Admin: 08/29/17 09:37 Dose: 75 mg Enoxaparin Sodium (Lovenox) 30 mg SC Q12 [facility] Last Admin: 08/29/17 21:53 Dose: 30 mg Famotidine (Pepcid) 20 mg PO DAILY [facility] Last Admin: 08/29/17 09:38 Dose: 20 mg Glipizide (Glucotrol) 10 mg PO BID [facility] Last Admin: 08/29/17 17:50 Dose: 10 mg Insulin Detemir (Levemir) 15 unit SC HS [facility] Last Admin: 08/29/17 21:53 Dose: 15 unit Insulin Human Regular (Novolin R) 0 unit SC ACHS [facility] PRN Reason: Protocol Last Admin: 08/29/17 21:08 Dose: Not Given Insulin Human Regular (Novolin R) 6 unit SC TIDCC [facility] Metoprolol Tartrate (Lopressor) 100 mg PO DAILY [facility] Last Admin: 08/29/17 09:37 Dose: 100 mg Multivitamins (Hexavitamin) 1 tab PO DAILY [facility] Last Admin: 08/29/17 09:37 Dose: 1 tab Rosuvastatin Calcium (Crestor) 5 mg PO HS [facility] Last Admin: 08/29/17 21:53 Dose: 5 mg Results - Vital Signs Recent Vital Signs: Last Vital Signs Temp 98.0 F 08/29/17 15:15 Pulse 68 08/29/17 18:00 Resp 20 08/29/17 15:15 BP 111/68 08/29/17 15:15 Pulse Ox 95 08/29/17 15:15 - Labs Result Diagrams: 08/29/17 08:35 08/29/17 08:35 Labs: Laboratory Results - last 24 hr 08/29/17 08/29/17 08/29/17 06:14 08:35 08:35 WBC 9.1 RBC 3.95 L Hgb 12.3 Hct 36.1 MCV 91.4 MCH 31.2 H MCHC 34.1 RDW 12.1 Plt Count 169 MPV 10.4 Neut % (Auto) 71.0 Lymph % (Auto) 16.7 L Pacific % (Auto) 9.0 Eos % (Auto) 2.7 Baso % (Auto) 0.6 Neut # 6.4 Lymph # 1.5 Pacific # 0.8 Eos # 0.2 Baso # 0.1 Sodium 134 Potassium 4.3 Chloride 99 Carbon Dioxide 26 Anion Gap 14 BUN 34 H Creatinine 1.7 H Est GFR ( Amer) 48 Est GFR (Non-Af Amer) 39 POC Glucose (mg/dL) 225 H Random Glucose 246 H Calcium 9.9 Total Bilirubin 1.0 AST 19 ALT 29 Alkaline Phosphatase 63 Total Protein 7.8 Albumin 3.6 Globulin 4.2 H Albumin/Globulin Ratio 0.9 L 08/29/17 08/29/17 08/29/17 11:28 16:22 20:59 WBC RBC Hgb Hct MCV MCH MCHC RDW Plt Count MPV Neut % (Auto) Lymph % (Auto) Pacific % (Auto) Eos % (Auto) Baso % (Auto) Neut # Lymph # Pacific # Eos # Baso # Sodium Potassium Chloride Carbon Dioxide Anion Gap BUN Creatinine Est GFR ( Amer) Est GFR (Non-Af Amer) POC Glucose (mg/dL) > 500 H* 293 H 193 H Random Glucose Calcium Total Bilirubin AST ALT Alkaline Phosphatase Total Protein Albumin Globulin Albumin/Globulin Ratio Assessment & Plan (1) Hyperosmolar non-ketotic state in patient with type 2 diabetes mellitus Assessment and Plan: Endocrine consult reason for consult: uncontrolled diabetes Source : patient Mr. Aldana is 76 y/o admitted for syncope , denies hypoglycemia , glucose 558 as per pt. has DM since 1996 (-) neuropathy , (-) retinopathy , (-) nephropathy (-) CAD (-) PVD outpatient diabetes management regimen : glipzide 10 mg po bid inpatient diabetes management regimen : high dose novolog coverage , glipizide 10 mg po bid blood glucose log :200-> 500 , as per nurse in charge eat almost 100 % NO hypoglycemia Allergy PCN Past medical history :HTN , hyperlipidemia Past surgical history : Left knee surgery Psychiatry history : denies Social history : denies smoking , ETOH use , illicit drug use Family history : denies ROS: Constitutional: denies fever ,tiredness/weakness .HEENT: denies earache, change in voice .Respiratory: denies cough, sob . CVS :no chest pain, no palpitations . Abdomen : no abdominal pain, no nausea /vomiting , no change bowel movement . CARTON REPAIRER : denies light-headedness, dizziness. Extremities : no edema , no tremors . Skin: no itching, no rash Physical exam Well developed AAO x3 , ,NAD , frail , pale VSS HEENT: norm cephalic, atraumatic , no lid lag , no exophthalmos NECK: supple, no palpable lymphadenopathy THYROID: no palpable thyromegaly , not tender CHEST: fair air entry, bilateral, CVS: S1,S2 ABDOMEN: bowel sound present, benign, obese, no wide purple striae , no bruises EXTREMITIES: no edema, clubbing or cyanosis, no palpable hand tremors Skin : acanthosis nigricans lab: tsh 1.51 , a1c 12.6 , AG 34, Hco3 26 cr 1.7 was 2 on admission Assessment hyperosmolar hyperglycemic state HHS ?diabetic nephropathy plan start IV NS @ 100 cc /h d/c glipizide start levemir 15 units first today stop Novolog start Novoloin R low dose coverage, no 3 am coverage start novoloin R 6 units tid with meals if eat > 60% obtain c-peptide , serum ketones , bmp plan communicated with nurse in charge who read back the instructions correctly Thank you for allowing me to participate in the care of the patient, we will follow with you. Status: Acute (2) Diabetic nephropathy Status: Acute - Date & Time Time: 09:00
[2017-08-29] MEDS: Sodium Chloride 0.9% 1,000 ML IV SCH (23:40)
--- NOTE | 2017-08-30 03:29 | EEG ---
DATE: This is a 16-channel electroencephalogram of an awake and drowsy adult. During the study, photic stimulation was performed. Hyperventilation was not performed. The resting electroencephalogram consists of 5 Hz to 7 Hz theta activity seen throughout the bilateral cortical leads. There is no focal slowing or paroxysmal activity is noted. The photic stimulation did not evoke driving response noted at 2 Hz to 20 Hz. IMPRESSION: This is a mildly abnormal electroencephalogram because the patient persistent flowing throughout the record suggestive of bilateral cerebral dysfunction This probably is secondary to metabolic, vascular or degenerative process. Please correlate the findings with neurological and radiological studies. I strongly recommend that if the clinical suspicion is high, the patient should have extended-hour ambulatory video electroencephalogram, which can be done as an outpatient. Salas Boyce MD
[2017-08-30] MEDS: (Novolin R) Insulin Human Regular 100 units/ml vial SC SCH ×6 (07:16→19:01)
--- NOTE | 2017-08-30 07:28 | PN ---
DATE: 08/29/2017 NEUROLOGICAL PROBLEM: Syncopal attack. PHYSICAL EXAMINATION: VITAL SIGNS: Blood pressure 117/75, mean arterial pressure of 89, respiratory rate 16, temperature 99.3, pulse rate 86, regular. NEUROLOGIC: The patient is more awake, alert, oriented to person, place and time. No confusion. No depression. Speech is clear. Cranial nerve examination: Sensory, motor examination all within normal as compared with the previous exam. 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 The patient also showed a periventricular old ischemic changes, all consistent with angiopathic changes secondary to his underlying chronic illness. The patient also showed some perineural reaction of MRI brain in left optic nerve. However, the patient does not have clear any evidence of visual disturbances in his left eye. Electroencephalogram had been reviewed. The patient showed bilateral slow activities, theta waves without any focal slowing noted. No paroxysmal activities noted. ASSESSMENT AND PLAN: If medically stable, the patient can be discharged following MRI of the orbits and should have a followup visit with me as outpatient. In the meantime, I do not want to start any antiepileptic drugs for now. Salas Boyce MD
--- NOTE | 2017-08-30 07:41 | PN ---
The patient is 76-year-old male. SUBJECTIVE: The patient is seen and examined at the bedside, looking comfortable. No nausea, vomiting or diarrhea. No hematuria or hematochezia. No swelling of the leg. No chest pain. No palpitations. No headache. No dizziness. PHYSICAL EXAMINATION: VITAL SIGNS: Temperature 98.0, pulse 58, respiratory rate 20, blood pressure 111/68, pulse oximetry of 95%. HEENT: Head: Normocephalic, atraumatic. Eyes: PERRLA. Extraocular muscles are intact. Conjunctivae clear. Nose: Patent. Mucous membranes are moist. NECK: Supple. No carotid bruits. No thyromegaly. CHEST: Bilaterally symmetrical. HEART: S1 and S2 positive. LUNGS: Clear to auscultation. ABDOMEN: Soft. Bowel sounds present. No organomegaly. EXTREMITIES: No edema, no cyanosis. NEUROLOGIC: The patient is awake and alert, moving all 4 extremities. No focal deficit. LABORATORY DATA: White blood cells 9.1, hemoglobin 12.3, hematocrit 36.1, platelets 169. Sodium 135, potassium 4.3, BUN 34, creatinine 1.7, glucose 246. ASSESSMENT AND PLAN: Suresh Mckinnon is a 76-year-old male, admitted for syncope with history of hypertension, hyperlipidemia, has hyperosmolar hyperglycemic state, diabetic nephropathy. Started the patient on IV fluid [address] Epstein discontinued glipizide, started Levemir; stopped Novolog, started Novolin R, low dosage coverage. Start NovoLog R 6 units, tie it with meals if eat more than 50%. Obtain C-peptide, serum ketones, BNP. Discussion done with the nursing staff. Reviewed Dr. Tete Augustin's notes, diabetic nephropathy. Computer Science Teacher is on the case. I did MRA of face and neck. Seen by Dr. Justin Unger, boilermaker ship and neurologist, Dr. Salas Boyce, out of bed physical therapy. Repeat labs. We will follow up. Jeana Brothers MD OLE
[2017-08-30] MEDS: Sodium Chloride 0.9% 1,000 ML IV SCH ×2 (08:50→19:00)
[2017-08-30 08:59] LABS: BLOOD UREA NITROGEN 32 mg/dL (9-20); CALCIUM 9.9 mg/dl (8.6-10.4); CARBON DIOXIDE 28 mmol/L (22-30); CHLORIDE 102 mmol/L (98-107); GFR AFRICAN-AMERICAN 48; GLUCOSE,RANDOM 74 mg/dL (75-110); POTASSIUM 3.9 mmol/L (3.6-5.2); SODIUM 137 mmol/L (132-148)
[2017-08-30] MEDS: Multiple Vitamins Tab PO SCH (10:01)
[2017-08-30] MEDS: Enoxaparin 30 mg Syringe SC SCH (10:01)
--- NOTE | 2017-08-30 14:57 | CP.PCM.PN ---
Subjective - Date & Time of Evaluation Date of Evaluation: 08/30/17 Time of Evaluation: 14:57 - Subjective Subjective: PT SEEN AND CLEARED BY DR. BARTLETT FOR D/C TODAY. CLEARED BY CONSULTS. I LEFT SEVERAL VOICE MESSAGE FOR DR. BOB REGARDING PT'S D/C INSULIN, HOWEVER, NO CALL BACK. [employer] PROVIDED RX FOR ALL MEDS INCLUDING INSULINS. PT STATES HE HAS A GLUCOMETER AT HOME AND HIS SISTER IN LAW CAN ALSO GIVE HIM INSULIN. GURVINDER PEREA TOLD BY ME TO DO INSULIN AND DIABETIC TEACHING W PT WITH [employer]. HOME CARE REFERRAL WITH [facility], BUT PT REFUSED. CM REFERRED TO DIFFERENT COMPANY AND THEY WILL FOLLOW UP WITH THE PT TOMORROW AT THE HOME. [employer] HAD LENGTHY DISCUSSION WITH THE PT REGARDING D/C PLAN, MEDICATIONS, INSULIN, FOLLOW UP VISITS. NO FURTHER ORDERS; BELOW PLEASE SEE THE D/C INFORMATION SENT WITH PT. FOLLOW UP WITH DR. BARTLETT IN HER OFFICE ON 09/05/17 AT 2 PM PER HER REQUEST. FOLLOW UP WITH DR. BOB (DOCTOR FOR YOUR SUGAR) IN HER OFFICE NEXT WEEK---CALL THE OFFICE TOMORROW AND MAKE AN APPOINTMENT FOR NEXT WEEK. DURING THIS VISIT DR. BOB CAN DISCUSS WITH YOU FURTHER RECOMMENDATIONS FOR YOUR DIABETES. FOLLOW UP WITH DR. BOX (NEUROLOGY) AND DR. GAITAN (HEART DOCTOR) IN THE OFFICE WITHIN 1-2 WEEKS----CALL FOR APPT TIME. WE HAVE ARRANGED A HOME CARE COMPANY TO VISIT YOU YOU ARE TAKING INSULIN FOR THE FIRST TIME. THEY WILL CONTACT YOU TO SEE WHAT DAY AND TIME THEY WILL SEE YOU. YOU HAVE SHOWN AND TAUGHT HOW TO GIVE YOURSELF INSULIN. TAKE EXACTLY PRESCRIBED TO YOU: NOVOLOG FLEXPEN 6 UNITS INJECTED 3 TIMES A DAY (BEFORE EACH MEAL); IT IS VERY IMPORTANT FOR YOU TO REMEMBER THAT IF YOU DO NOT EAT A MEAL , DO NOT TAKE YOUR INSULIN DOSE! TAKE THE INSULIN LONG YOU EAT. ALSO, HAVE A BEDTIME SNACK SO THAT YOUR SUGAR WILL NOT DROP WHILE YOU SLEEP. CHECK YOUR SUGAR THREE TIMES DAY BEFORE EACH MEAL, AND RECORD ON PAPER/ TAKE THIS WHEN YOU SEE DR. BOB IN THE OFFICE. CONTINUE YOUR OTHER MEDICATIONS AT HOME USUAL. FOR FURTHER QUESTIONS, CONTACT DR. BARTLETT'S OFFICE. Objective - Vital Signs/Intake and Output Vital Signs (last 24 hours): Temp Pulse Resp BP Pulse Ox 97.2 F L 98 H 18 103/67 95 08/30/17 08:21 08/30/17 10:00 08/30/17 08:21 08/30/17 10:00 08/30/17 08:21 - Medications Medications: Current Medications Clopidogrel Bisulfate (Plavix) 75 mg PO DAILY [facility] Last Admin: 08/30/17 10:01 Dose: 75 mg Enoxaparin Sodium (Lovenox) 30 mg SC Q12 [facility] Last Admin: 08/30/17 10:01 Dose: 30 mg Famotidine (Pepcid) 20 mg PO DAILY [facility] Last Admin: 08/30/17 10:01 Dose: 20 mg Sodium Chloride (Sodium Chloride 0.9%) 1,000 mls @ 100 mls/hr IV .Q10H [facility] Last Admin: 08/30/17 08:50 Dose: Not Given Insulin Detemir (Levemir) 15 unit SC [facility] Last Admin: 08/29/17 21:53 Dose: 15 unit Insulin Human Regular (Novolin R) 0 unit SC ACHS [facility] PRN Reason: Protocol Last Admin: 08/30/17 12:54 Dose: 3 unit Insulin Human Regular (Novolin R) 6 unit SC TIDCC [facility] Last Admin: 08/30/17 12:53 Dose: 6 unit Metoprolol Tartrate (Lopressor) 100 mg PO DAILY [facility] Last Admin: 08/30/17 10:01 Dose: Not Given Multivitamins (Hexavitamin) 1 tab PO DAILY [facility] Last Admin: 08/30/17 10:01 Dose: 1 tab Rosuvastatin Calcium (Crestor) 5 mg PO HS [facility] Last Admin: 08/29/17 21:53 Dose: 5 mg - Labs Labs: 08/29/17 08:35 08/30/17 08:12 PT 10.6 SECONDS (9.7-12.2) 08/26/17 17:28 INR 1.0 08/26/17 17:28 APTT 27 SECONDS (21-34) 08/26/17 17:28
[2017-08-30 16:50] VITALS: BP 120/80; PULSE 87; RESP 20; TEMP 97.8
--- NOTE | 2017-08-30 19:30 | CP.PCM.CON ---
Past Patient History - Infectious Disease Hx of Infectious Diseases: None - Past Medical History & Family History Past Medical History?: Yes - Past Social History Smoking Status: Never Smoked - CARDIAC Hx Cardiac Disorders: (Cardiac failure) Hx Hypertension: Yes - PULMONARY Hx Respiratory Disorders: No - NEUROLOGICAL Hx Neurological Disorder: Yes Hx Syncope: Yes - HEENT Hx HEENT Problems: No - RENAL Hx Chronic Kidney Disease: No - ENDOCRINE/METABOLIC Hx Diabetes Mellitus Type 2: Yes - HEMATOLOGICAL/ONCOLOGICAL Hx Blood Disorders: No - INTEGUMENTARY Hx Dermatological Problems: No - MUSCULOSKELETAL/RHEUMATOLOGICAL Hx Musculoskeletal Disorders: No Hx Falls: Yes - GASTROINTESTINAL Hx Gastrointestinal Disorders: No - GENITOURINARY/GYNECOLOGICAL Hx Genitourinary Disorders: No - PSYCHIATRIC Hx Psychophysiologic Disorder: No Hx Substance Use: No - SURGICAL HISTORY Hx Surgeries: Yes Other/Comment: left knee replacement, and left nerve repair, left and right hand nerve repair - ANESTHESIA Hx Anesthesia: Yes Hx Anesthesia Reactions: No Hx Malignant Hyperthermia: No Has any member of the family had a problem w/ anesthesia?: No Meds Home Medications: Home Medication List Medication Instructions Recorded Confirmed Type Clopidogrel [Plavix] 75 mg PO DAILY #30 tab 08/30/17 Rx Insulin Aspart [Novolog FLEXPEN] 6 unit SQ TIDCC #1 08/30/17 Rx Insulin Detemir [Levemir] 15 unit SQ HS #1 08/30/17 Rx Allergies/Adverse Reactions: Allergies Allergy/AdvReac Type Severity Reaction Status Date / Time Penicillins Allergy Mild Verified 08/26/17 16:58 - Medications Medications: Current Medications Clopidogrel Bisulfate (Plavix) 75 mg PO DAILY [facility] Last Admin: 08/30/17 10:01 Dose: 75 mg Enoxaparin Sodium (Lovenox) 30 mg SC Q12 [facility] Last Admin: 08/30/17 10:01 Dose: 30 mg Famotidine (Pepcid) 20 mg PO DAILY [facility] Last Admin: 08/30/17 10:01 Dose: 20 mg Sodium Chloride (Sodium Chloride 0.9%) 1,000 mls @ 100 mls/hr IV .Q10H [facility] Last Admin: 08/30/17 19:00 Dose: Not Given Insulin Detemir (Levemir) 15 unit SC HS [facility] Last Admin: 08/29/17 21:53 Dose: 15 unit Insulin Human Regular (Novolin R) 0 unit SC ACHS [facility] PRN Reason: Protocol Last Admin: 08/30/17 19:01 Dose: 1 unit Insulin Human Regular (Novolin R) 6 unit SC TIDCC [facility] Last Admin: 08/30/17 18:59 Dose: Not Given Metoprolol Tartrate (Lopressor) 100 mg PO DAILY [facility] Last Admin: 08/30/17 10:01 Dose: Not Given Multivitamins (Hexavitamin) 1 tab PO DAILY [facility] Last Admin: 08/30/17 10:01 Dose: 1 tab Rosuvastatin Calcium (Crestor) 5 mg PO HS [facility] Last Admin: 08/29/17 21:53 Dose: 5 mg Physical Exam - Constitutional Appears: Well - Head Exam Head Exam: ATRAUMATIC, NORMAL INSPECTION, NORMOCEPHALIC - Eye Exam Eye Exam: EOMI, Normal appearance, PERRL Pupil Exam: NORMAL ACCOMODATION, PERRL - ENT Exam ENT Exam: Mucous Membranes Moist, Normal Exam - Neck Exam Neck exam: Positive for: Normal Inspection - Respiratory Exam Respiratory Exam: Decreased Breath Sounds - Cardiovascular Exam Cardiovascular Exam: REGULAR RHYTHM, +S1, +S2 - GI/Abdominal Exam GI & Abdominal Exam: Diminished Bowel Sounds, Soft - Rectal Exam Rectal Exam: Deferred Results - Vital Signs Recent Vital Signs: Last Vital Signs Temp 97.8 F 08/30/17 16:00 Pulse 87 08/30/17 16:00 Resp 20 08/30/17 16:00 BP 120/80 08/30/17 16:00 Pulse Ox 95 08/30/17 16:00 - Labs Result Diagrams: 08/29/17 08:35 08/30/17 08:12 Labs: Laboratory Results - last 24 hr 08/29/17 08/30/17 08/30/17 20:59 06:08 08:12 Sodium 137 Potassium 3.9 Chloride 102 Carbon Dioxide 28 Anion Gap 11 BUN 32 H Creatinine 1.7 H Est GFR ( Amer) 48 Est GFR (Non-Af Amer) 39 POC Glucose (mg/dL) 193 H 77 Random Glucose 74 L Calcium 9.9 Serum Ketones Negative 08/30/17 08/30/17 11:19 16:23 Sodium Potassium Chloride Carbon Dioxide Anion Gap BUN Creatinine Est GFR ( Amer) Est GFR (Non-Af Amer) POC Glucose (mg/dL) 261 H 184 H Random Glucose Calcium Serum Ketones
[2017-08-30 19:38] VITALS: O2SAT 100
--- NOTE | 2017-09-02 13:44 | CARD ---
APPROVED REPORT EXAM: Two-dimensional and M-mode echocardiogram with Doppler, color Doppler with contrast. Other Information Quality : GoodRhythm : INDICATION Syncope Definity Contrast Used. RISK FACTORS Diabetes 2D DIMENSIONS IVSd1.1 (0.7-1.1cm)LVDd4.1 (3.9-5.9cm) PWd1.1 (0.7-1.1cm)LVDs2.9 (2.5-4.0cm) FS (%) 28.0 %LVEF (%)54.6 (>50%) M-Mode DIMENSIONS Left Atrium (MM)3.14 (2.5-4.0cm)Aortic Root4.35 (2.2-3.7cm) Aortic Cusp Exc.2.32 (1.5-2.0cm) Aortic Valve AI P 1/2 [id number] Mitral Valve MV E Qygasulx27.8cm/sMV A Axkdnkul645.4cm/sE/A ratio0.6 TDI E/Lateral E'0.0E/Medial E'0.0 Tricuspid Valve TR Peak [id number]/sTR Peak Gr.[id number] <Conclusion> Technically limited and diffciult study. Normal LV systoli cfunction. Trace to mild AR. Normal chamber size.
--- NOTE | 2017-09-05 22:34 | CARD ---
APPROVED REPORT EKG Measurement Heart [id number] <Conclusion> Sinus rhythm with premature atrial complexes Left axis deviation Abnormal ECG
--- NOTE | 2017-09-06 05:16 | DS ---
CHIEF COMPLAINT: Syncopal attack. HISTORY OF PRESENT ILLNESS: Mr. Suresh Aldana is a 76-year-old male with past medical history of hypertension, syncope, and diabetes mellitus, who came to the emergency room after syncopal attack. The patient stated that he was at home and attempting to use bathroom. After getting into the bathroom, he noted that he has dizziness and syncope and passed out. Does not remember what happened. Then patient's nephew called 911 and transferred the patient to [facility]. We did CAT scan of the head; carotid Doppler of the neck; orbit, face, and neck MRI. Seen by the farm forestry and garden workers. He stayed in the hospital for a couple of days, then cleared by the Neurology and discharged home to follow up with primary care physician. Patient is seen by Dr. Tete Augustin, technical data analyst; Dr. Salas Boyce, neurologist; Dr. Oj Washington, homicide squad sergeant. Prescription of medications is given. PAST MEDICAL HISTORY: Hypertension. FAMILY HISTORY: Father and mother, noncontributory. HABITS: No smoking. No drug. No ethanol. ALLERGIES: PATIENT IS ALLERGIC TO PENICILLIN. HOME MEDICATIONS: Reviewed by me. REVIEW OF SYSTEMS: Patient was seen and examined at the bedside, looking comfortable. No nausea, vomiting, or diarrhea. No hematemesis or hematochezia. No swelling of the legs. No chest pain. No palpitation. No headache. No dizziness. No fever. No chills. PHYSICAL EXAMINATION: VITAL SIGNS: Temperature 97.6, pulse 87, blood pressure 120/80, respiratory rate 20. HEENT: Head is normocephalic and atraumatic. Eyes, PERRLA. Extraocular muscles intact. Conjunctivae clear. Nose patent. Mucous membranes are moist. NECK: Supple. No carotid bruits, JVD, or thyromegaly. CHEST: Bilaterally symmetrical. HEART: S1 and S2 positive. LUNGS: Clear to auscultation. ABDOMEN: Soft. Bowel sounds present. No organomegaly. EXTREMITIES: No edema. No cyanosis. NEUROLOGIC: The patient is awake and alert. Moving all four extremities. No focal deficit. LABORATORY DATA: White blood cells 9.1, hemoglobin 12.3, hematocrit 36.1, platelet 169. Sodium 137, potassium 3.9, BUN 32, creatinine 1.7, glucose 187. ASSESSMENT AND PLAN: Mr. Suresh Aldana is a 76-year-old male, came with syncopal attack, has renal insufficiency, seen by Dr. Kimberly Washington, hyperglycemia, diabetes mellitus, looks like noncompliant. Cholesterol, triglycerides are within normal limits. Did CAT scan and MRI of the head, seen by neurologist. History of hypertension, hypercholesterolemia, hyperosmolar hyperglycemia, diabetic nephropathy, given IV fluid. Dr. Epstein discontinued the glipizide, started patient on Levemir and Novolin. I reviewed Dr. Tete Augustin's notes. Dr. Kimberly Washington is treating him for diabetic nephropathy. MRA of the face and neck done, reviewed by me. Seen by the farm forestry and garden workers, Dr. Justin Unger, patient's private farm forestry and garden workers. Patient improved. Plan was to give physical therapy and send for rehab. Patient refused to go to rehab. PT given and discharged home with prescription to follow primary care physician and Neurology. Jeana Brothers MD
== END 2017-08-30 20:12 | disposition home or self-care (01) | DRG 312 ==
LOC: C.ER 16:28 → C.9E 18:25 → C.5S 19:45
PROVIDERS: ADMIT Internal Medicine; ATTEND Internal Medicine
DX: R55 Syncope and collapse (principal); E11.00 Type 2 diabetes mellitus with hyperosmolarity without nonketotic hyperglycemic-hyperosmolar coma (NKHHC); E11.51 Type 2 diabetes mellitus with diabetic peripheral angiopathy without gangrene; E11.21 Type 2 diabetes mellitus with diabetic nephropathy; G62.9 Polyneuropathy, unspecified; I11.0 Hypertensive heart disease with heart failure; I50.9 Heart failure, unspecified; E78.5 Hyperlipidemia, unspecified; N28.9 Disorder of kidney and ureter, unspecified; D64.9 Anemia, unspecified; Z96.652 Presence of left artificial knee joint; Z79.02 Long term (current) use of antithrombotics/antiplatelets; Z79.4 Long term (current) use of insulin

== ENCOUNTER 2017-10-28 17:28 | Inpatient (IN) | payer MEDICARE ==
[2017-10-28] MEDS ORDERED: Oxycodone/Acetaminophen 5/325 mg Tab PO STA (18:35)
[2017-10-28] MEDS ORDERED: Oxycodone/Acetaminophen 5/325 mg Tab ONE (18:45)
[2017-10-28 18:54] LABS: BASO % 0.8 % (0.0-2.0); EOS # 0.3 K/uL (0.0-0.7); HEMOGLOBIN 12.3 g/dL (12.0-18.0); LYMPH # 1.6 K/uL (1.0-4.3); MEAN CELL VOLUME 90.6 fL (80.0-94.0); MEAN CORPUSCULAR HEMOGLOBIN 30.2 pg (27.0-31.0); MEAN CORPUSCULAR HGB CONC 33.3 g/dL (33.0-37.0); MEAN PLATELET VOLUME 9.1 fL (7.2-11.7); MONO # 0.4 K/uL (0.0-0.8); MONO % 6.9 % (0.0-10.0); NEUT # 3.2 K/uL (1.8-7.0); NEUT % 58.3 % (50.0-75.0); NRBC % 0.1 % (0.0-2.0); RBC 4.07 Mil/uL (4.40-5.90); RED CELL DISTRIBUTION WIDTH 12.7 % (11.5-14.5); WHITE BLOOD COUNT 5.4 K/uL (4.8-10.8)
--- NOTE | 2017-10-28 19:05 | C.PDOC ---
History Of Present Illness Suresh Aldana is a 77 year old male, whose past medical history includes HTN and HLD, who presents to the emergency department complaining of left lower dental pain along with burning chest discomfort with reflux that is not digitally reproducible since last night. Patient notes having a neurological and heart evaluation taken on August 2016 and the results came back negative. According to , patient cannot ambulate due to weakness in bilateral legs and states he is unsafe to be home. Patient denies shortness of breath, headache, fever, chills cough, nausea, vomiting, diarrhea, diaphoresis, jaw pain, back pain, or other complaints. Time Seen by Provider: 10/28/17 18:26 Chief Complaint (Nursing): Chest Pain History Per: Patient, Family History/Exam Limitations: no limitations Onset/Duration Of Symptoms: Days (last night ) Current Symptoms Are (Timing): Still Present Quality: Burning Associated Symptoms: denies: Nausea, Syncope Exacerbating Factors: None Alleviating Factors: None Recent travel outside of the [place]: No Additional History Per: Family Past Medical History Reviewed: Historical Data, Nursing Documentation, Vital Signs Vital Signs: Last Vital Signs Temp 97.4 F L 10/28/17 17:56 Pulse 91 H 10/28/17 17:56 Resp 16 10/28/17 17:56 BP 122/78 10/28/17 17:56 Pulse Ox 96 10/28/17 20:13 - Medical History PMH: HTN, Hyperlipidemia Denies: Chronic Kidney Disease Family History: States: No Known Family Hx - Social History Hx Alcohol Use: No Hx Substance Use: No - Immunization History Hx Tetanus Toxoid Vaccination: No Hx Influenza Vaccination: Yes Hx Pneumococcal Vaccination: Yes Review Of Systems Constitutional: Negative for: Fever, Chills ENT: Positive for: Mouth Pain (left lower dental pain ) Cardiovascular: Positive for: Chest Pain (burning discomfort with reflux) Respiratory: Negative for: Cough, Shortness of Breath Gastrointestinal: Negative for: Nausea, Vomiting, Abdominal Pain Genitourinary: Negative for: Dysuria, Frequency Musculoskeletal: Negative for: Neck Pain Neurological: Positive for: Weakness (bilateral legs). Negative for: Headache Physical Exam - Physical Exam Appears: Well, Non-toxic, In Acute Distress (moderate distress due to dental pain) Skin: Normal Color, Warm, Dry Head: Atraumatic, Normacephalic Eye(s): bilateral: Normal Inspection Teeth: No Normal Dentition, Other (foul mouth odor and cap on left moral area without swelling and no thrush) Throat: Normal, No Erythema, No Exudate Cardiovascular: Rhythm Regular, No Murmur Respiratory: Normal Breath Sounds, No Rales, No Rhonchi, No Wheezing Gastrointestinal/Abdominal: Normal Exam, Bowel Sounds (Normal), Soft, No Tenderness, No Distention, No Guarding, No Rebound Neurological/Psych: Oriented x3, Normal Speech ED Course And Treatment - Laboratory Results Result Diagrams: 10/28/17 18:46 10/28/17 18:46 Lab Interpretation: Normal (bnp/trop neg.) ECG: Interpreted By Me ECG Rhythm: Sinus Rhythm ECG Interpretation: Normal Rate From EC O2 Sat by Pulse Oximetry: 96 (room air) Pulse Ox Interpretation: Normal - Radiology CXR: Interpreted by Me CXR Interpretation: Yes: No Acute Disease Progress Note: clinda, pepcid, percocet Medical Decision Making Medical Decision Making: Impression: 77 y/o male with foul mouth odor and cap on left moral area without swelling and no thrush Differential Diagnosis included but are not limited to: GERD, dental infection vs gingival dz, gait apraxia- feels too unstable gait to take home. Hgb nl Plan: -- EKG -- CXR -- Maalox, Clindamycin, and Oxycodone -- Reassess and disposition Progress Notes: Case discussed with Dr. Srinivasan who admitted patient August 2017 and referred him to on-call medicine. Case also discussed with Dr. Washington, who is on-call medicine, and accepts patient to his care. Disposition Doctor Will See Patient In The: Office Counseled Patient/Family Regarding: Studies Performed, Diagnosis - Disposition Disposition: HOSPITALIZED Disposition Time: 19:23 Condition: GOOD - Clinical Impression Clinical Impression: Chest discomfort, GERD (gastroesophageal reflux disease), Dentalgia, Gait apraxia of elderly - Scribe Statement The provider has reviewed the documentation as recorded by the Scribe Scribe Attestation: Wendy Mendoza MD Scribe Attestation: All medical record entries made by the Scribe were at my direction and personally dictated by me. I have reviewed the chart and agree that the record accurately reflects my personal performance of the history, physical exam, medical decision making, and the department course for this patient. I have also personally directed, reviewed, and agree with the discharge instructions and disposition.
[2017-10-28 19:06] LABS: ALB/GLOB RATIO 1.1 (1.0-2.1); ALBUMIN 4.1 g/dL (3.5-5.0); CALCIUM 10.3 mg/dl (8.6-10.4)
[2017-10-28 19:10] LABS: PROTHROMBIN TIME 11.1 SECONDS (9.7-12.2)
[2017-10-28] MEDS ORDERED: Clindamycin 600mg/50ml D5W 600 MG/50 ML VIAL IVPB SCH (19:15)
[2017-10-28 19:17] LABS: TROPONIN I 0.022 ng/mL (0.00-0.120)
[2017-10-28] MEDS ORDERED: Alum-Mag Hydrox-Simethicone Susp (30 mL) PO STA (19:34)
[2017-10-28] MEDS ORDERED: Aluminum Hydroxide/Magnesium Hydroxide Susp (30 mL) ONE (19:56)
[2017-10-28] MEDS ORDERED: Clindamycin 600mg/50ml NS 600 MG/50 ML BAG IVPB ONE (19:56)
--- NOTE | 2017-10-29 08:18 | RAD ---
PROCEDURE: CHEST RADIOGRAPH, 1 VIEW HISTORY: SOB COMPARISON: None available. FINDINGS: LUNGS: There is focal opacity/consolidation at the left lower lung. There is a smaller consolidation at the right lung base. The possibility of pneumonia or atelectasis should be considered. PLEURA: Blunting of both costophrenic angle larger on the left. CARDIOVASCULAR: The cardiac silhouette is enlarged. OSSEOUS STRUCTURES: No significant abnormalities. VISUALIZED UPPER ABDOMEN: Normal. OTHER FINDINGS: None. IMPRESSION: Bilateral lower lobes consolidation larger on the left. Differential consideration include pneumonia atelectasis or less likely neoplasm. Further assessment is suggested.
--- NOTE | 2017-10-29 08:19 | RAD ---
HISTORY: repeat- prior unacceptble COMPARISON: Comparison is made with the previous same-day exam FINDINGS: LUNGS: Interval significant and almost complete resolving of the previously seen bibasilar opacities compared to the previous exam likely due to atelectasis. The patient is rotated to the right. PLEURA: No significant pleural effusion identified, no pneumothorax apparent. CARDIOVASCULAR: Normal. OSSEOUS STRUCTURES: No significant abnormalities. VISUALIZED UPPER ABDOMEN: Normal. OTHER FINDINGS: None. IMPRESSION: Interval significant improvement and almost complete resolving of the previously seen bilateral lower lobe opacities likely represent atelectasis.
[2017-10-29] MEDS ORDERED: Oxycodone/Acetaminophen 5/325 mg Tab PO PRN (09:34)
[2017-10-29] MEDS ORDERED: Moxifloxacin IV 400mg/250ml NS 400 MG/250 ML BAG IVPB SCH (09:45)
[2017-10-29] MEDS: Pantoprazole 40 mg EC Tab PO SCH (10:33)
[2017-10-29] MEDS: Ciprofloxacin 400mg/200ml D5W 400 MG/200 ML BAG IVPB SCH ×2 (10:33→21:31)
[2017-10-29] MEDS: Enoxaparin 40 mg Syringe SC SCH (10:33)
[2017-10-29] MEDS ORDERED: Oxycodone/Acetaminophen 5/325 mg Tab ONE (10:52)
--- NOTE | 2017-10-29 11:44 | CT ---
PROCEDURE: CT HEAD WITHOUT CONTRAST. HISTORY: r/o stroke COMPARISON: Comparison is made with the previous study dated 08/26/2017 TECHNIQUE: Axial computed tomography images were obtained through the head/brain without intravenous contrast. Radiation dose: Total exam DLP = 997.4 mGy-cm. This CT exam was performed using one or more of the following dose reduction techniques: Automated exposure control, adjustment of the mA and/or kV according to patient size, and/or use of iterative reconstruction technique. FINDINGS: HEMORRHAGE: No intracranial hemorrhage. BRAIN: Moderate atrophy and chronic microvascular ischemic disease are again noted. Small less than 5 millimeter foci of encephalomalacia again noted at the right intraforaminal kilos left caudate head likely represent lacunar chronic infarctions. Small less than 5 millimeter encephalomalacia is also noted at the left thalamus. No evidence of mass effect or midline shift. VENTRICLES: Unremarkable. No hydrocephalus. CALVARIUM: Unremarkable. PARANASAL SINUSES: Unremarkable as visualized. No significant inflammatory changes. MASTOID AIR CELLS: Unremarkable as visualized. No inflammatory changes. OTHER FINDINGS: None. IMPRESSION: No evidence of acute intracranial hemorrhage or territorial infarction. No significant interval change when compared to the previous study dated 08/26/2017.
[2017-10-29] MEDS: Azithromycin 500 MG in Sodium Chloride 0.9% 250 ML IVPB SCH (12:30)
--- NOTE | 2017-10-29 13:09 | CP.PCM.CON ---
History of Present Illness - History of Present Illness History of Present Illness: CONSULT DICTATED 23 YRS OF GAIT DISTURBANCE SEVERE DIABETIC NEUROPATHY NEEDS WORK UP PT EMG/NCV OP NO FURTHER WORK UP FROM NEURO NOW Past Patient History - Infectious Disease Hx of Infectious Diseases: None - Past Medical History & Family History Past Medical History?: Yes - Past Social History Smoking Status: Never Smoked - CARDIAC Hx Hypertension: Yes - PULMONARY Hx Respiratory Disorders: No - NEUROLOGICAL Hx Neurological Disorder: Yes Hx Syncope: Yes - HEENT Hx HEENT Problems: No - RENAL Hx Chronic Kidney Disease: No - ENDOCRINE/METABOLIC Hx Diabetes Mellitus Type 2: Yes - HEMATOLOGICAL/ONCOLOGICAL Hx Blood Disorders: No - INTEGUMENTARY Hx Dermatological Problems: No - MUSCULOSKELETAL/RHEUMATOLOGICAL Hx Musculoskeletal Disorders: No Hx Falls: Yes - GASTROINTESTINAL Hx Gastrointestinal Disorders: No - GENITOURINARY/GYNECOLOGICAL Hx Genitourinary Disorders: No - PSYCHIATRIC Hx Substance Use: No - SURGICAL HISTORY Hx Surgeries: Yes Other/Comment: left knee replacement, and left nerve repair, left and right hand nerve repair - ANESTHESIA Hx Anesthesia: Yes Hx Anesthesia Reactions: No Hx Malignant Hyperthermia: No Meds Allergies/Adverse Reactions: Allergies Allergy/AdvReac Type Severity Reaction Status Date / Time Penicillins Allergy Mild Verified 08/26/17 16:58 - Medications Medications: Current Medications Enoxaparin Sodium (Lovenox) 40 mg SC DAILY [facility] Last Admin: 10/29/17 10:33 Dose: 40 mg Clindamycin Phosphate (Cleocin) 600 mg in 50 mls @ 100 mls/hr IVPB STAT [facility] Azithromycin 500 mg/ Sodium (Chloride) 250 mls @ 250 mls/hr IVPB DAILY [facility] Last Admin: 10/29/17 12:30 Dose: 250 mls/hr Ciprofloxacin (Cipro 400mg/200ml Dsw) 400 mg in 200 mls @ 133 mls/hr IVPB Q12H [facility] Last Admin: 10/29/17 10:33 Dose: 133 mls/hr Oxycodone/Acetaminophen (Percocet 5/325 Mg Tab) 1 tab PO Q6H PRN PRN Reason: Pain, moderate (4-7) Stop: 11/01/17 09:35 Last Admin: 10/29/17 10:52 Dose: 1 tab Pantoprazole Sodium (Protonix Ec Tab) 40 mg PO DAILY [facility] Last Admin: 10/29/17 10:33 Dose: 40 mg Results - Vital Signs Recent Vital Signs: Last Vital Signs Temp 98.0 F 10/29/17 07:25 Pulse 96 H 10/29/17 10:52 Resp 18 10/29/17 10:52 BP 126/79 10/29/17 10:52 Pulse Ox 96 10/29/17 10:52 - Labs Result Diagrams: 10/28/17 18:46 10/28/17 18:46 Labs: Laboratory Results - last 24 hr 10/28/17 10/28/17 10/28/17 18:34 18:46 18:46 WBC 5.4 RBC 4.07 L Hgb 12.3 Hct 36.9 MCV 90.6 MCH 30.2 MCHC 33.3 RDW 12.7 Plt Count 223 MPV 9.1 Neut % (Auto) 58.3 Lymph % (Auto) 29.0 [place] % (Auto) 6.9 Eos % (Auto) 5.0 H Baso % (Auto) 0.8 Neut # (Auto) 3.2 Lymph # (Auto) 1.6 [place] # (Auto) 0.4 Eos # (Auto) 0.3 Baso # (Auto) 0.0 PT 11.1 INR 1.0 APTT 30 Sodium Potassium Chloride Carbon Dioxide Anion Gap BUN Creatinine Est GFR ( Amer) Est GFR (Non-Af Amer) POC Glucose (mg/dL) Random Glucose Hemoglobin A1c Calcium Total Bilirubin AST ALT Alkaline Phosphatase Troponin I NT-Pro-B Natriuret Pep Total Protein Albumin Globulin Albumin/Globulin Ratio Influenza Typ A,B (EIA) Negative for flu a/b 10/28/17 10/29/17 10/29/17 18:46 10:37 12:44 WBC RBC Hgb Hct MCV MCH MCHC RDW Plt Count MPV Neut % (Auto) Lymph % (Auto) [place] % (Auto) Eos % (Auto) Baso % (Auto) Neut # (Auto) Lymph # (Auto) [place] # (Auto) Eos # (Auto) Baso # (Auto) PT INR APTT Sodium 136 Potassium 4.5 Chloride 99 Carbon Dioxide 22 Anion Gap 20 BUN 35 H Creatinine 2.0 H Est GFR ( Amer) 39 Est GFR (Non-Af Amer) 32 POC Glucose (mg/dL) 234 H Random Glucose 160 H Hemoglobin A1c 8.5 H D Calcium 10.3 Total Bilirubin 0.8 AST 19 ALT 19 L D Alkaline Phosphatase 60 Troponin I 0.0220 NT-Pro-B Natriuret Pep 293 Total Protein 7.9 Albumin 4.1 Globulin 3.8 Albumin/Globulin Ratio 1.1 Influenza Typ A,B (EIA)
[2017-10-29 13:46] LABS: FREE T4 1.21 ng/dL (0.78-2.19)
--- NOTE | 2017-10-29 14:04 | CP.PCM.HP ---
Past Patient History - Infectious Disease Hx of Infectious Diseases: None - Past Medical History & Family History Past Medical History?: Yes - Past Social History Smoking Status: Never Smoked - CARDIAC Hx Hypertension: Yes - PULMONARY Hx Respiratory Disorders: No - NEUROLOGICAL Hx Neurological Disorder: Yes Hx Syncope: Yes - HEENT Hx HEENT Problems: No - RENAL Hx Chronic Kidney Disease: No - ENDOCRINE/METABOLIC Hx Diabetes Mellitus Type 2: Yes - HEMATOLOGICAL/ONCOLOGICAL Hx Blood Disorders: No - INTEGUMENTARY Hx Dermatological Problems: No - MUSCULOSKELETAL/RHEUMATOLOGICAL Hx Musculoskeletal Disorders: No Hx Falls: Yes - GASTROINTESTINAL Hx Gastrointestinal Disorders: No - GENITOURINARY/GYNECOLOGICAL Hx Genitourinary Disorders: No - PSYCHIATRIC Hx Substance Use: No - SURGICAL HISTORY Hx Surgeries: Yes Other/Comment: left knee replacement, and left nerve repair, left and right hand nerve repair - ANESTHESIA Hx Anesthesia: Yes Hx Anesthesia Reactions: No Hx Malignant Hyperthermia: No Meds Allergies/Adverse Reactions: Allergies Allergy/AdvReac Type Severity Reaction Status Date / Time Penicillins Allergy Mild Verified 08/26/17 16:58 Physical Exam - Constitutional Appears: Well - Head Exam Head Exam: ATRAUMATIC, NORMAL INSPECTION, NORMOCEPHALIC - Eye Exam Eye Exam: EOMI, Normal appearance, PERRL Pupil Exam: NORMAL ACCOMODATION, PERRL - ENT Exam ENT Exam: Mucous Membranes Moist, Normal Exam - Neck Exam Neck exam: Positive for: Normal Inspection - Respiratory Exam Respiratory Exam: Decreased Breath Sounds - Cardiovascular Exam Cardiovascular Exam: REGULAR RHYTHM, +S1, +S2 - GI/Abdominal Exam GI & Abdominal Exam: Diminished Bowel Sounds, Soft - Rectal Exam Rectal Exam: Deferred Results - Vital Signs Recent Vital Signs: Last Vital Signs Temp 98.0 F 10/29/17 07:25 Pulse 86 10/29/17 12:42 Resp 18 10/29/17 12:42 BP 128/87 10/29/17 12:42 Pulse Ox 96 10/29/17 12:42 - Labs Result Diagrams: 10/28/17 18:46 10/28/17 18:46 Labs: Laboratory Results - last 24 hr 10/28/17 10/28/17 10/28/17 18:34 18:46 18:46 WBC 5.4 RBC 4.07 L Hgb 12.3 Hct 36.9 MCV 90.6 MCH 30.2 MCHC 33.3 RDW 12.7 Plt Count 223 MPV 9.1 Neut % (Auto) 58.3 Lymph % (Auto) 29.0 [place] % (Auto) 6.9 Eos % (Auto) 5.0 H Baso % (Auto) 0.8 Neut # (Auto) 3.2 Lymph # (Auto) 1.6 [place] # (Auto) 0.4 Eos # (Auto) 0.3 Baso # (Auto) 0.0 ESR PT 11.1 INR 1.0 APTT 30 Sodium Potassium Chloride Carbon Dioxide Anion Gap BUN Creatinine Est GFR ( Amer) Est GFR (Non-Af Amer) POC Glucose (mg/dL) Random Glucose Hemoglobin A1c Calcium Total Bilirubin AST ALT Alkaline Phosphatase Troponin I C-React Prot High Sens NT-Pro-B Natriuret Pep Total Protein Albumin Globulin Albumin/Globulin Ratio Free T4 TSH 3rd Generation Influenza Typ A,B (EIA) Negative for flu a/b 10/28/17 10/29/17 10/29/17 18:46 10:37 12:44 WBC RBC Hgb Hct MCV MCH MCHC RDW Plt Count MPV Neut % (Auto) Lymph % (Auto) [place] % (Auto) Eos % (Auto) Baso % (Auto) Neut # (Auto) Lymph # (Auto) [place] # (Auto) Eos # (Auto) Baso # (Auto) ESR 72 H PT INR APTT Sodium 136 Potassium 4.5 Chloride 99 Carbon Dioxide 22 Anion Gap 20 BUN 35 H Creatinine 2.0 H Est GFR ( Amer) 39 Est GFR (Non-Af Amer) 32 POC Glucose (mg/dL) 234 H Random Glucose 160 H Hemoglobin A1c Calcium 10.3 Total Bilirubin 0.8 AST 19 ALT 19 L D Alkaline Phosphatase 60 Troponin I 0.0220 C-React Prot High Sens NT-Pro-B Natriuret Pep 293 Total Protein 7.9 Albumin 4.1 Globulin 3.8 Albumin/Globulin Ratio 1.1 Free T4 TSH 3rd Generation Influenza Typ A,B (EIA) 10/29/17 10/29/17 12:44 12:44 WBC RBC Hgb Hct MCV MCH MCHC RDW Plt Count MPV Neut % (Auto) Lymph % (Auto) [place] % (Auto) Eos % (Auto) Baso % (Auto) Neut # (Auto) Lymph # (Auto) [place] # (Auto) Eos # (Auto) Baso # (Auto) ESR PT INR APTT Sodium Potassium Chloride Carbon Dioxide Anion Gap BUN Creatinine Est GFR ( Amer) Est GFR (Non-Af Amer) POC Glucose (mg/dL) Random Glucose Hemoglobin A1c 8.5 H D Calcium Total Bilirubin AST ALT Alkaline Phosphatase Troponin I C-React Prot High Sens > 15.00 H NT-Pro-B Natriuret Pep Total Protein Albumin Globulin Albumin/Globulin Ratio Free T4 1.21 TSH 3rd Generation 4.69 H Influenza Typ A,B (EIA)
[2017-10-29 14:15] LABS: FOLATE > 20.0 ng/mL
[2017-10-29] MEDS: Clindamycin 300 MG in Sodium Chloride 0.9% 50 ML IVPB SCH ×2 (15:11→20:42)
[2017-10-29 17:30] VITALS: RESP 20
[2017-10-29] MEDS: (Novolog) Insulin Aspart, Recombinant 100 u/ml 10 ml vial SC SCH (17:37)
[2017-10-29] MEDS: Insulin Detemir 100 units/ml Vial (Levemir) SC SCH (21:29)
--- NOTE | 2017-10-29 23:58 | CON ---
DATE: 10/28/2017 ATTENDING PHYSICIAN: Addison Washington M.D. ROOM NUMBER: Emergency room bed 13. REASON FOR CONSULTATION: Poor balance. CHIEF COMPLAINT: The patient was admitted for his worsening toothache. From neurological point of view, I was called into evaluate him because of his poor gait disturbances. HISTORY OF PRESENT ILLNESS: Mr. Suresh Aldana is a 77-year-old thinly built, right-handed male presenting with losing his balance for almost 23 years (since 1994). He has been using a cane. He was diagnosed of diabetes mellitus in 1992. No history of fall. No history of back pain. No history of bowel and bladder incontinence. No history of neck pain. No history of headache. No history of visual or bulbar dysfunction. Speech is clear. No history of involuntary movements. PAST MEDICAL HISTORY: Diabetes mellitus, history of arthritis, knee replacement in 2006 on his left side, hypertension, dyslipidemia. ALLERGIES: NO KNOWN ALLERGIES. PERSONAL HISTORY: Denies smoking or alcohol use. REVIEW OF SYSTEMS: A 12-point system being reviewed from [facility]. PHYSICAL EXAMINATION: VITAL SIGNS: Blood pressure 126/79, mean artery pressure of 94, respiratory 16, temperature 98.0, and pulse rate 96 and irregular. NECK: Supple. No carotid bruits. HEART: Heart sounds regular. CHEST: Fair air entry. EXTREMITIES: Distal muscle groups atrophy. Postsurgical scar seen over the left knee. NEUROLOGIC EXAMINATION: Mental status examination, he is awake, alert and oriented to person, place and time. Speech is clear. Naming, repetition, fluency, comprehension all within normal. CRANIAL NERVE EXAMINATION: Visual field intact. Pupils reactive. Extraocular movement decreased in all directions. No facial sensory deficit. No facial asymmetry. Hearing is normal. Tongue is midline. Good gag. MOTOR EXAMINATION: On an outstretched hand with eyes closed, mild tremor. Tone is equal in all four extremities. Strength is equal in all four extremities. DEEP TENDON REFLEXES: Biceps, brachialis, triceps absent, both knees are absent. Both ankles are absent. Plantars are equivocal in response. SENSORY EXAMINATION: Significant joint position sensed affected in both lower extremities affecting the foot joints. Increased to pinprick distally in both lower extremities. Significant decreased vibration sense also noted in both lower extremities. Finger-nose test is mildly dysmetria proportional to his neuropathy and atrophy of his muscle groups. WORKUP: WBC 5.4, hemoglobin 12.3, hematocrit 36.9, and platelets 223. PT 11.1, INR 1.0, PTT 30. Sodium 136, potassium 4.5, chloride 99, bicarbonate 22, BUN 35, creatinine 2.0, glucose 234. Hemoglobin A1c 8.5. Calcium 10.3. AST 19, ALT 19, and BNP 293. CONCLUSION: Mr. 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 This is probably secondary to his underlying poorly controlled diabetes mellitus, however, other possible causes for his neuropathy should be ruled out. The current examination does not show any long track sign or upper motor neuron dysfunction at this time. WORKUP: CT of the head reviewed by me, no acute pathology; however, significant atrophy and periventricular ischemic changes noted. RECOMMENDATIONS: 1. Aspirin is replaced for stroke prophylaxis. 2. Diabetic control. 3. Fall precaution. 4. Physical therapy. 5. Blood workup, carotid Doppler and MRI should be done to rule out any ischemic process. The patient should be getting physical therapy and should have electrodiagnostic studies and his neuropathy workup should be followed as outpatient. Salas Boyce MD
[2017-10-30] MEDS: Clindamycin 300 MG in Sodium Chloride 0.9% 50 ML IVPB SCH ×4 (02:32→21:00)
[2017-10-30] MEDS: (Novolog) Insulin Aspart, Recombinant 100 u/ml 10 ml vial SC SCH ×3 (08:07→17:02)
--- NOTE | 2017-10-30 08:24 | PN ---
DATE: 10/30/2017 TIME OF EVALUATION: 6:25 a.m. NEUROLOGIC PROBLEM: Ataxia superimposed with peripheral neuropathy. PHYSICAL EXAMINATION: VITAL SIGNS: Blood pressure 134/77, mean arterial pressure 93, respiratory rate 16, temperature 97.3. NEUROLOGIC: The patient is verbally arousable. No confusion. Speech is clear, and cranial nerve examination is normal. Motor examination,Distal sensory motor neuropathy secondary to his diabetes mellitus affecting large fiber more than small fibers. Blood workup and stroke workup had been requested which is all on progress. The patient should be get out of the bed and do physical therapy, with this, diabetic control should be strictly addressed. The patient will be followed closely with you. Salas Boyce MD MTDD
[2017-10-30] MEDS: Multiple Vitamins Tab PO SCH (09:57)
[2017-10-30] MEDS: Pantoprazole 40 mg EC Tab PO SCH (09:58)
[2017-10-30] MEDS: Enoxaparin 40 mg Syringe SC SCH (09:59)
[2017-10-30] MEDS ORDERED: Home Med 1 UNIT (Omeprazole [Omeprazole] 20 MG) PO SCH (10:00)
[2017-10-30] MEDS: Ciprofloxacin 400mg/200ml D5W 400 MG/200 ML BAG IVPB SCH (10:43)
[2017-10-30] MEDS: Azithromycin 500 MG in Sodium Chloride 0.9% 250 ML IVPB SCH (12:21)
--- NOTE | 2017-10-30 15:45 | MRI ---
PROCEDURE: MRI BRAIN WITHOUT CONTRAST HISTORY: EDUCATIONAL AID STROKE COMPARISON: Comparison made with prior scan and MRI of the brain dated 10/29/2017 and 08/28/2017 respectively. TECHNIQUE: Multiplanar, multisequence MR images of the brain were obtained without intravenous contrast enhancement. Note the examination is somewhat limited by motion artifact. FINDINGS: HEMORRHAGE: No acute parenchymal, subarachnoid or extra-axial hemorrhage. No evidence hemosiderin deposition identified on gradient echo weighted sequence. DWI: No evidence of acute or subacute infarcts seen on diffusion imaging. BRAIN PARENCHYMA: Moderate chronic periventricular white matter ischemic changes again seen extending peripherally into deep and subcortical white matter both cerebral hemispheres. Multiple more discrete chronic appearing lacunar type infarcts scattered about the deep and subcortical white matter well both basal nuclei and both cerebellar hemispheres. None of these changes exhibit restricted diffusion. Moderate to fairly significant generalized volume loss. VENTRICLES: No obstructive hydrocephalus. CRANIUM: Calvarium appears grossly intact ORBITS: Orbits and contents unremarkable. PARANASAL SINUSES/MASTOIDS: Minor mucosal thickening seen within the ethmoid air complex. . Mastoid air complexes are clear. VASCULAR SYSTEM: Visualized major vascular flow voids at skull base are patent. OTHER FINDINGS: None. IMPRESSION: The slightly limited motion degraded study. . No evidence of acute intracranial hemorrhage or acute infarct. 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 Moderate to fairly significant generalized volume loss.
--- NOTE | 2017-10-30 17:12 | CP.PCM.PN ---
Subjective - Date & Time of Evaluation Date of Evaluation: 10/30/17 Time of Evaluation: 10:00 - Subjective Subjective: clinically same Objective - Vital Signs/Intake and Output Vital Signs (last 24 hours): Temp Pulse Resp BP Pulse Ox 97.5 F L 110 H 20 99/66 L 95 10/30/17 16:00 10/30/17 16:00 10/30/17 16:00 10/30/17 16:00 10/30/17 16:00 Intake and Output: 10/30/17 10/30/17 06:59 18:59 Intake Total 1100 Balance 1100 - Medications Medications: Current Medications Aspirin (Ecotrin) 81 mg PO DAILY [facility] Aspirin (Aspirin Chewable) 81 mg PO DAILY [facility] Last Admin: 10/30/17 09:56 Dose: 81 mg Enoxaparin Sodium (Lovenox) 40 mg SC DAILY [facility] Last Admin: 10/30/17 09:59 Dose: Not Given Glipizide (Glucotrol) 10 mg PO BID [facility] Last Admin: 10/30/17 09:57 Dose: 10 mg Hydrochlorothiazide (Hydrodiuril) 25 mg PO DAILY [facility] Last Admin: 10/30/17 09:58 Dose: 25 mg Azithromycin 500 mg/ Sodium (Chloride) 250 mls @ 250 mls/hr IVPB DAILY [facility] Last Admin: 10/30/17 12:21 Dose: 250 mls/hr Ciprofloxacin (Cipro 400mg/200ml Dsw) 400 mg in 200 mls @ 133 mls/hr IVPB Q12H [facility] Last Admin: 10/30/17 10:43 Dose: 133 mls/hr Clindamycin Phosphate 300 mg/ (Sodium Chloride) 52 mls @ 104 mls/hr IVPB Q6H [facility] Last Admin: 10/30/17 15:50 Dose: 104 mls/hr Insulin Aspart (Novolog) 6 unit SC TIDCC [facility] Last Admin: 10/30/17 17:02 Dose: 6 unit Insulin Detemir (Levemir) 15 unit SC HS [facility] Last Admin: 10/29/17 21:29 Dose: 15 unit Lidocaine HCl (Lidocaine 2% Viscous) 15 ml PO Q3H PRN PRN Reason: dental pain Last Admin: 10/29/17 20:43 Dose: 15 ml Losartan Potassium (Cozaar) 100 mg PO DAILY [facility] Last Admin: 10/30/17 09:57 Dose: 100 mg Metformin HCl (Glucophage) 500 mg PO BID [facility] Multivitamins (Hexavitamin) 1 tab PO DAILY [facility] Last Admin: 10/30/17 09:57 Dose: 1 tab Oxycodone/Acetaminophen (Percocet 5/325 Mg Tab) 1 tab PO Q6H PRN PRN Reason: Pain, moderate (4-7) Stop: 11/01/17 09:35 Last Admin: 10/29/17 10:52 Dose: 1 tab Pantoprazole Sodium (Protonix Ec Tab) 40 mg PO DAILY [facility] Last Admin: 10/30/17 09:58 Dose: 40 mg Rosuvastatin Calcium (Crestor) 5 mg PO HS [facility] Last Admin: 10/29/17 21:29 Dose: 5 mg - Labs Labs: 10/28/17 18:46 10/28/17 18:46 PT 11.1 SECONDS (9.7-12.2) 10/28/17 18:46 INR 1.0 10/28/17 18:46 APTT 30 SECONDS (21-34) 10/28/17 18:46 - Constitutional Appears: Well - Head Exam Head Exam: ATRAUMATIC, NORMAL INSPECTION, NORMOCEPHALIC - Eye Exam Eye Exam: EOMI, Normal appearance, PERRL Pupil Exam: NORMAL ACCOMODATION, PERRL - ENT Exam ENT Exam: Mucous Membranes Moist, Normal Exam - Neck Exam Neck Exam: Full ROM, Normal Inspection. absent: Lymphadenopathy - Respiratory Exam Respiratory Exam: Decreased Breath Sounds - Cardiovascular Exam Cardiovascular Exam: REGULAR RHYTHM, +S1, +S2 - GI/Abdominal Exam GI & Abdominal Exam: Soft, Diminished Bowel Sounds - Rectal Exam Rectal Exam: Deferred
[2017-10-30] MEDS: Insulin Detemir 100 units/ml Vial (Levemir) SC SCH (21:42)
--- NOTE | 2017-10-30 22:23 | CARD ---
APPROVED REPORT EKG Measurement Heart [id number] <Conclusion> Normal sinus rhythm Left anterior fascicular block Abnormal ECG
[2017-10-31] MEDS: Clindamycin 300 MG in Sodium Chloride 0.9% 50 ML IVPB SCH ×4 (03:02→21:35)
[2017-10-31 07:31] LABS: BASO % 0.8 % (0.0-2.0); EOS # 0.6 K/uL (0.0-0.7); EOS % 11.6 % (0.0-4.0); HEMOGLOBIN 10.8 g/dL (12.0-18.0); LYMPH # 1.5 K/uL (1.0-4.3); LYMPH % 30.5 % (20.0-40.0); MEAN CELL VOLUME 90.2 fL (80.0-94.0); MEAN CORPUSCULAR HEMOGLOBIN 30.6 pg (27.0-31.0); MEAN CORPUSCULAR HGB CONC 33.9 g/dL (33.0-37.0); MEAN PLATELET VOLUME 9.5 fL (7.2-11.7); MONO # 0.5 K/uL (0.0-0.8); MONO % 10.6 % (0.0-10.0); NEUT # 2.3 K/uL (1.8-7.0); NEUT % 46.5 % (50.0-75.0); RBC 3.53 Mil/uL (4.40-5.90); RED CELL DISTRIBUTION WIDTH 12.8 % (11.5-14.5)
[2017-10-31 07:39] LABS: ALB/GLOB RATIO 1.2 (1.0-2.1); ALBUMIN 3.5 g/dL (3.5-5.0); CALCIUM 10.2 mg/dl (8.6-10.4)
[2017-10-31] MEDS: (Novolog) Insulin Aspart, Recombinant 100 u/ml 10 ml vial SC SCH ×3 (08:30→16:19)
[2017-10-31] MEDS: Ciprofloxacin 400mg/200ml D5W 400 MG/200 ML BAG IVPB SCH (09:30)
[2017-10-31] MEDS: Pantoprazole 40 mg EC Tab PO SCH (10:05)
[2017-10-31] MEDS: Multiple Vitamins Tab PO SCH (10:05)
[2017-10-31] MEDS: Enoxaparin 40 mg Syringe SC SCH (10:10)
[2017-10-31] MEDS: Azithromycin 500 MG in Sodium Chloride 0.9% 250 ML IVPB SCH (10:29)
--- NOTE | 2017-10-31 11:09 | PN ---
DATE: 10/31/2017 NEUROLOGICAL PROBLEM: Ataxia secondary to his worsening peripheral neuropathy. PHYSICAL EXAMINATION: VITAL SIGNS: Blood pressure 110/72, mean artery pressure 84, respiratory rate 16, temperature afebrile. The patient's examination was unchanged, consistent with peripheral distal sensory motor neuropathy involving large vessels and small fiber. Workup showed periventricular ischemic changes, all old, no new ischemic process. The patient should continue the current recommendation. The patient should get out of the bed and get physical therapy. Diabetic control is discussed with the patient. If medically stable, the patient can be discharged and should have followup visit with me as an outpatient. Salas Boyce MD
--- NOTE | 2017-10-31 16:22 | CP.PCM.PN ---
Subjective - Date & Time of Evaluation Date of Evaluation: 10/31/17 Time of Evaluation: 08:20 - Subjective Subjective: clinically same Objective - Vital Signs/Intake and Output Vital Signs (last 24 hours): Temp Pulse Resp BP Pulse Ox 98.3 F 76 20 117/78 95 10/31/17 08:13 10/31/17 08:13 10/31/17 08:13 10/31/17 08:13 10/31/17 08:13 Intake and Output: 10/31/17 10/31/17 06:59 18:59 Intake Total 950 900 Output Total 300 Balance 650 900 - Medications Medications: Current Medications Aspirin (Ecotrin) 81 mg PO DAILY [facility] Aspirin (Aspirin Chewable) 81 mg PO DAILY [facility] Last Admin: 10/31/17 10:05 Dose: 81 mg Enoxaparin Sodium (Lovenox) 40 mg SC DAILY [facility] Last Admin: 10/31/17 10:10 Dose: 40 mg Glipizide (Glucotrol) 10 mg PO BID [facility] Last Admin: 10/31/17 10:04 Dose: 10 mg Hydrochlorothiazide (Hydrodiuril) 25 mg PO DAILY [facility] Last Admin: 10/31/17 10:04 Dose: 25 mg Azithromycin 500 mg/ Sodium (Chloride) 250 mls @ 250 mls/hr IVPB DAILY [facility] Last Admin: 10/31/17 10:29 Dose: 250 mls/hr Clindamycin Phosphate 300 mg/ (Sodium Chloride) 52 mls @ 104 mls/hr IVPB Q6H [facility] Last Admin: 10/31/17 09:00 Dose: 104 mls/hr Ciprofloxacin (Cipro 400mg/200ml Dsw) 400 mg in 200 mls @ 133 mls/hr IVPB Q24H [facility] Last Admin: 10/31/17 09:30 Dose: 133 mls/hr Insulin Aspart (Novolog) 6 unit SC TIDCC [facility] Last Admin: 10/31/17 16:19 Dose: Not Given Insulin Detemir (Levemir) 15 unit SC HS [facility] Last Admin: 10/30/17 21:42 Dose: 15 unit Lidocaine HCl (Lidocaine 2% Viscous) 15 ml PO Q3H PRN PRN Reason: dental pain Last Admin: 10/29/17 20:43 Dose: 15 ml Losartan Potassium (Cozaar) 100 mg PO DAILY [facility] Last Admin: 10/31/17 10:05 Dose: 100 mg Multivitamins (Hexavitamin) 1 tab PO DAILY [facility] Last Admin: 10/31/17 10:05 Dose: 1 tab Oxycodone/Acetaminophen (Percocet 5/325 Mg Tab) 1 tab PO Q6H PRN PRN Reason: Pain, moderate (4-7) Stop: 11/01/17 09:35 Last Admin: 10/29/17 10:52 Dose: 1 tab Pantoprazole Sodium (Protonix Ec Tab) 40 mg PO DAILY [facility] Last Admin: 10/31/17 10:05 Dose: 40 mg Rosuvastatin Calcium (Crestor) 5 mg PO HS [facility] Last Admin: 10/30/17 21:40 Dose: 5 mg - Labs Labs: 10/31/17 07:06 10/31/17 07:06 PT 11.1 SECONDS (9.7-12.2) 10/28/17 18:46 INR 1.0 10/28/17 18:46 APTT 30 SECONDS (21-34) 10/28/17 18:46 - Constitutional Appears: Well - Head Exam Head Exam: ATRAUMATIC, NORMAL INSPECTION, NORMOCEPHALIC - Eye Exam Eye Exam: EOMI, Normal appearance, PERRL Pupil Exam: NORMAL ACCOMODATION, PERRL - ENT Exam ENT Exam: Mucous Membranes Moist, Normal Exam - Neck Exam Neck Exam: Full ROM, Normal Inspection. absent: Lymphadenopathy - Respiratory Exam Respiratory Exam: Decreased Breath Sounds - Cardiovascular Exam Cardiovascular Exam: REGULAR RHYTHM, +S1, +S2 - GI/Abdominal Exam GI & Abdominal Exam: Soft, Diminished Bowel Sounds - Rectal Exam Rectal Exam: Deferred
[2017-10-31] MEDS: Insulin Detemir 100 units/ml Vial (Levemir) SC SCH (21:38)
[2017-11-01] MEDS: Clindamycin 300 MG in Sodium Chloride 0.9% 50 ML IVPB SCH ×3 (03:55→14:50)
[2017-11-01] MEDS: (Novolog) Insulin Aspart, Recombinant 100 u/ml 10 ml vial SC SCH ×3 (08:30→17:00)
[2017-11-01] MEDS: Pantoprazole 40 mg EC Tab PO SCH (09:27)
[2017-11-01] MEDS: Multiple Vitamins Tab PO SCH (09:27)
[2017-11-01] MEDS: Enoxaparin 40 mg Syringe SC SCH (09:28)
[2017-11-01] MEDS: Ciprofloxacin 400mg/200ml D5W 400 MG/200 ML BAG IVPB SCH (10:14)
[2017-11-01] MEDS: Azithromycin 500 MG in Sodium Chloride 0.9% 250 ML IVPB SCH (10:15)
--- NOTE | 2017-11-01 13:55 | CP.PCM.PN ---
Subjective - Date & Time of Evaluation Date of Evaluation: 11/01/17 Time of Evaluation: 07:40 - Subjective Subjective: clinically same Objective - Vital Signs/Intake and Output Vital Signs (last 24 hours): Temp Pulse Resp BP Pulse Ox 98.1 F 103 H 20 99/68 L 96 11/01/17 08:57 11/01/17 08:57 11/01/17 08:57 11/01/17 08:57 11/01/17 08:57 Intake and Output: 11/01/17 11/01/17 06:59 18:59 Intake Total 200 Output Total 300 Balance -100 - Medications Medications: Current Medications Aspirin (Ecotrin) 81 mg PO DAILY [facility] Aspirin (Aspirin Chewable) 81 mg PO DAILY [facility] Last Admin: 11/01/17 09:31 Dose: 81 mg Enoxaparin Sodium (Lovenox) 40 mg SC DAILY [facility] Last Admin: 11/01/17 09:28 Dose: 40 mg Glipizide (Glucotrol) 10 mg PO BID [facility] Last Admin: 11/01/17 09:28 Dose: 10 mg Hydrochlorothiazide (Hydrodiuril) 25 mg PO DAILY [facility] Last Admin: 11/01/17 09:28 Dose: Not Given Azithromycin 500 mg/ Sodium (Chloride) 250 mls @ 250 mls/hr IVPB DAILY [facility] Last Admin: 11/01/17 10:15 Dose: 250 mls/hr Clindamycin Phosphate 300 mg/ (Sodium Chloride) 52 mls @ 104 mls/hr IVPB Q6H [facility] Last Admin: 11/01/17 09:27 Dose: 104 mls/hr Ciprofloxacin (Cipro 400mg/200ml Dsw) 400 mg in 200 mls @ 133 mls/hr IVPB Q24H [facility] Last Admin: 11/01/17 10:14 Dose: 133 mls/hr Insulin Aspart (Novolog) 6 unit SC TIDCC [facility] Last Admin: 11/01/17 12:55 Dose: 6 unit Insulin Detemir (Levemir) 15 unit SC HS [facility] Last Admin: 10/31/17 21:38 Dose: Not Given Lidocaine HCl (Lidocaine 2% Viscous) 15 ml PO Q3H PRN PRN Reason: dental pain Last Admin: 10/29/17 20:43 Dose: 15 ml Losartan Potassium (Cozaar) 100 mg PO DAILY [facility] Last Admin: 11/01/17 09:28 Dose: Not Given Multivitamins (Hexavitamin) 1 tab PO DAILY [facility] Last Admin: 11/01/17 09:27 Dose: 1 tab Pantoprazole Sodium (Protonix Ec Tab) 40 mg PO DAILY [facility] Last Admin: 11/01/17 09:27 Dose: 40 mg Rosuvastatin Calcium (Crestor) 5 mg PO HS [facility] Last Admin: 10/31/17 21:34 Dose: 5 mg - Labs Labs: 10/31/17 07:06 10/31/17 07:06 PT 11.1 SECONDS (9.7-12.2) 10/28/17 18:46 INR 1.0 10/28/17 18:46 APTT 30 SECONDS (21-34) 10/28/17 18:46 - Constitutional Appears: Well - Head Exam Head Exam: ATRAUMATIC, NORMAL INSPECTION, NORMOCEPHALIC - Eye Exam Eye Exam: EOMI, Normal appearance, PERRL Pupil Exam: NORMAL ACCOMODATION, PERRL - ENT Exam ENT Exam: Mucous Membranes Moist, Normal Exam - Neck Exam Neck Exam: Full ROM, Normal Inspection. absent: Lymphadenopathy - Respiratory Exam Respiratory Exam: Decreased Breath Sounds - Cardiovascular Exam Cardiovascular Exam: REGULAR RHYTHM, +S1, +S2 - GI/Abdominal Exam GI & Abdominal Exam: Soft, Diminished Bowel Sounds - Rectal Exam Rectal Exam: Deferred
--- NOTE | 2017-11-01 15:55 | CP.PCM.PN ---
Subjective - Date & Time of Evaluation Date of Evaluation: 11/01/17 Time of Evaluation: 15:46 - Subjective Subjective: PT SEEN AND EXAMINED, RESPIRATION EASY AND UNLABORED, NAD. Objective - Vital Signs/Intake and Output Vital Signs (last 24 hours): Temp Pulse Resp BP Pulse Ox 98.1 F 95 H 20 102/59 L 96 11/01/17 08:57 11/01/17 14:45 11/01/17 08:57 11/01/17 14:45 11/01/17 14:45 Intake and Output: 11/01/17 11/01/17 06:59 18:59 Intake Total 200 1030 Output Total 300 Balance -100 1030 - Medications Medications: Current Medications Aspirin (Ecotrin) 81 mg PO DAILY [facility] [place] Aspirin (Aspirin Chewable) 81 mg PO DAILY [facility] Last Admin: 11/01/17 09:31 Dose: 81 mg Enoxaparin Sodium (Lovenox) 40 mg SC DAILY [facility] [place] Last Admin: 11/01/17 09:28 Dose: 40 mg Glipizide (Glucotrol) 10 mg PO BID [facility] Last Admin: 11/01/17 09:28 Dose: 10 mg Hydrochlorothiazide (Hydrodiuril) 25 mg PO DAILY [facility] [place] Last Admin: 11/01/17 09:28 Dose: Not Given Azithromycin 500 mg/ Sodium (Chloride) 250 mls @ 250 mls/hr IVPB DAILY [facility] [place] Last Admin: 11/01/17 10:15 Dose: 250 mls/hr Clindamycin Phosphate 300 mg/ (Sodium Chloride) 52 mls @ 104 mls/hr IVPB Q6H [facility] [place] Last Admin: 11/01/17 14:50 Dose: 104 mls/hr Ciprofloxacin (Cipro 400mg/200ml Dsw) 400 mg in 200 mls @ 133 mls/hr IVPB Q24H [facility] [place] Last Admin: 11/01/17 10:14 Dose: 133 mls/hr Insulin Aspart (Novolog) 6 unit SC TIDCC [facility] [place] Last Admin: 11/01/17 12:55 Dose: 6 unit Insulin Detemir (Levemir) 15 unit SC HS [facility] [place] Last Admin: 10/31/17 21:38 Dose: Not Given Lidocaine HCl (Lidocaine 2% Viscous) 15 ml PO Q3H PRN PRN Reason: dental pain Last Admin: 10/29/17 20:43 Dose: 15 ml Losartan Potassium (Cozaar) 100 mg PO DAILY [facility] [place] Last Admin: 11/01/17 09:28 Dose: Not Given Multivitamins (Hexavitamin) 1 tab PO DAILY [facility] Last Admin: 11/01/17 09:27 Dose: 1 tab Pantoprazole Sodium (Protonix Ec Tab) 40 mg PO DAILY [facility] [place] Last Admin: 11/01/17 09:27 Dose: 40 mg Rosuvastatin Calcium (Crestor) 5 mg PO HS [facility] Last Admin: 10/31/17 21:34 Dose: 5 mg - Labs Labs: 10/31/17 07:06 10/31/17 07:06 PT 11.1 SECONDS (9.7-12.2) 10/28/17 18:46 INR 1.0 10/28/17 18:46 APTT 30 SECONDS (21-34) 10/28/17 18:46 Assessment and Plan - Assessment and Plan (Free Text) Plan: 77 Y/O MALE WITH PMHX HTN, HLD ADMITTED FOR GAIT APRAXIA, DENTAL PAIN, GERD, CHEST DISCOMFORT PT SEEN AND CLEARED BY DR BOX CT HEAD- NO ACUTE FINDINGS, MRI HEAD- NO ACUTE FINDINGS PT DISCHARGE HOME WITH PHYSICAL THERAPY, WALKER CLINDAMYCIN PO FOR 7 DAYS PT EDUCATED TO F/U WITH PMD, DENTIST AND NEURO OUTPT POC DISCUSSED WITH PT AND SISTER, AGREE, VERBALIZE UNDERSTANDING
[2017-11-01 16:15] VITALS: BP 122/74; PULSE 81; TEMP 97.4; O2SAT 95
[2017-11-01] MEDS ORDERED: Pneumococcal 23-Valent Vaccine IM ONE (18:30)
--- NOTE | 2017-11-02 10:10 | EEG ---
DATE: 10/30/2017 This is a 16-channel electroencephalogram of an awake adult. During the study, photic stimulation was performed. Hyperventilation was not performed. The resting electroencephalogram consists of 30 to 40 microvolt, 6 to 7 Hz theta activities noted at parietal and occipital leads. Intermittent muscle artifacts contaminated the background rhythm. There is EKG artifact also contaminating the background rhythm as well. The photic stimulation did not evoke driving response noted at 2 to 20 Hz. IMPRESSION: This is a mildly abnormal electroencephalogram because of persistent slowing throughout the record suggestive of bilateral cerebral dysfunction. This is probably secondary to metabolic, vascular, or degenerative process. However, during the study neither electroencephalographic paroxysmal activities nor focal slowing noted. Salas Boyce MD
== END 2017-11-01 20:10 | disposition home or self-care (01) | DRG 159 ==
LOC: C.ER 17:28 → C.9E 19:18 → C.3T 10-29 14:56
PROVIDERS: ADMIT Internal Medicine Nephrology; ATTEND Internal Medicine Nephrology
DX: K08.89 Other specified disorders of teeth and supporting structures (principal); E11.40 Type 2 diabetes mellitus with diabetic neuropathy, unspecified; E11.65 Type 2 diabetes mellitus with hyperglycemia; E78.5 Hyperlipidemia, unspecified; I10 Essential (primary) hypertension; K21.9 Gastro-esophageal reflux disease without esophagitis; Z96.652 Presence of left artificial knee joint

== ENCOUNTER 2017-12-22 11:37 | Inpatient (IN) | payer MEDICARE ==
[2017-12-22 11:53] VITALS: BMI 19.8
[2017-12-22 12:56] LABS: BASO % 0.4 % (0.0-2.0); HEMOGLOBIN 12.6 g/dL (12.0-18.0); LYMPH % 10.4 % (20.0-40.0); MEAN CELL VOLUME 90.6 fL (80.0-94.0); MEAN CORPUSCULAR HEMOGLOBIN 30.4 pg (27.0-31.0); MEAN CORPUSCULAR HGB CONC 33.5 g/dL (33.0-37.0); MEAN PLATELET VOLUME 9.5 fL (7.2-11.7); MONO # 0.4 K/uL (0.0-0.8); MONO % 3.8 % (0.0-10.0); NEUT # 8.1 K/uL (1.8-7.0); NEUT % 85.4 % (50.0-75.0); NRBC % 0.1 % (0.0-2.0); RBC 4.14 Mil/uL (4.40-5.90); RED CELL DISTRIBUTION WIDTH 12.8 % (11.5-14.5)
[2017-12-22 12:58] LABS: WHITE BLOOD COUNT 9.4 K/uL (4.8-10.8)
[2017-12-22] MEDS ORDERED: Sodium Chloride 0.9% 1,000 ML IV ONE (12:59)
[2017-12-22 13:08] LABS: ALB/GLOB RATIO 1.2 (1.0-2.1); ALBUMIN 4.1 g/dL (3.5-5.0); CALCIUM 10.6 mg/dl (8.6-10.4)
[2017-12-22] MEDS ORDERED: Sodium Chloride 0.9% 1,000 ML ONE (13:08)
--- NOTE | 2017-12-22 13:08 | C.PDOC ---
History Of Present Illness 77 y/o male with history of DM and High Cholesterol presents to ED with complaints of abdominal pain, vomiting and decreased appetite for 4 days. Patient did not take medication today and reports back pain. Patient denies fever, chills, dysuria, hematuria or any other complaints at this time. Time Seen by Provider: 12/22/17 12:20 Chief Complaint (Nursing): Abdominal Pain History Per: Patient History/Exam Limitations: no limitations Onset/Duration Of Symptoms: Days Current Symptoms Are (Timing): Still Present Location Of Pain/Discomfort: Diffuse Past Medical History Reviewed: Historical Data, Nursing Documentation, Vital Signs Vital Signs: Last Vital Signs Temp 98.2 F 12/25/17 18:30 Pulse 94 H 12/25/17 19:06 Resp 22 12/25/17 19:06 BP 110/60 12/25/17 19:06 Pulse Ox 96 12/25/17 19:48 - Medical History PMH: Arthritis (L TKR), HTN, Hypercholesterolemia, Hyperlipidemia Surgical History: No Surg Hx Family History: States: No Known Family Hx - Social History Hx Alcohol Use: No Hx Substance Use: No - Immunization History Hx Tetanus Toxoid Vaccination: No Hx Influenza Vaccination: Yes Hx Pneumococcal Vaccination: Yes Review Of Systems Constitutional: Negative for: Fever, Chills Gastrointestinal: Positive for: Nausea, Vomiting, Abdominal Pain. Negative for : Diarrhea Genitourinary: Negative for: Dysuria, Hematuria Skin: Negative for: Rash Physical Exam - Physical Exam Appears: Non-toxic, No Acute Distress Skin: Warm, Dry, No Rash, Jaundice Head: Atraumatic, Normacephalic Oral Mucosa: Moist Neck: Normal ROM, Supple Cardiovascular: Rhythm Regular Respiratory: Normal Breath Sounds, No Rales, No Rhonchi, No Wheezing Gastrointestinal/Abdominal: Soft, Tenderness (Epigastric), No Guarding, No Rebound Back: No CVA Tenderness Extremity: Normal ROM, Capillary Refill (<2 seconds) Neurological/Psych: Oriented x3, Normal Speech ED Course And Treatment - Laboratory Results Result Diagrams: 12/25/17 06:18 12/25/17 06:18 O2 Sat by Pulse Oximetry: 96 (RA) Pulse Ox Interpretation: Normal Critical Care Time - Critical Care Note Total Time (in mins): 35 Documented critical care: time excludes all time spent performing seperately billable procedures. Medical Decision Making Medical Decision Making: Plan: CT abdomen/pelvis, UA ordered. Toradol, Morphine, Zofran, Protonix and IV fluids administered On first re-exam, patient report only minimal improvement of symptoms. Patient' s states that the patient appears more confused. However patient remains awake, alert, and oriented x3. Radiologist called to state that the patient had perforation likely Duodudenal vs Diverticulitis. Stat surgical consult obtained and the case was discussed with Dr. Villa (surgery oncall) who states to admit the patient to Hospitalist and he will take the patient to the OR today. Patient were evaluated by the surgical residents. Blood cultures ordered. Patient found to now be febrile. NS IVF continued for sepsis protocol. IV antibiotics ordered. The case was discussed with Dr. Siddiqui who agrees to admit the patient medically. Disposition - Disposition Disposition: HOSPITALIZED Disposition Time: 16:15 Condition: GUARDED - POA Present On Arrival: None - Clinical Impression Clinical Impression: Perforated abdominal viscus - PA / SALES ENGINEERING MANAGER / Resident Statement MD/DO has reviewed & agrees with the documentation as recorded. - Scribe Statement The provider has reviewed the documentation as recorded by the [employer] Novoa All medical record entries made by the Sarai were at my direction and personally dictated by me. I have reviewed the chart and agree that the record accurately reflects my personal performance of the history, physical exam, medical decision making, and the department course for this patient. I have also personally directed, reviewed, and agree with the discharge instructions and disposition.
[2017-12-22] MEDS ORDERED: Morphine 4 MG/ML VIAL ONE ×2 (13:09→21:04)
--- NOTE | 2017-12-22 13:43 | RAD ---
PROCEDURE: CHEST RADIOGRAPH, 1 VIEW HISTORY: abd pain COMPARISON: Chest radiograph dated 10/28/2017. FINDINGS: LUNGS: Low lung volumes. Bibasilar atelectasis/scarring. PLEURA: No pneumothorax or pleural fluid seen. CARDIOVASCULAR: Atherosclerotic aortic calcifications. Cardiomediastinal silhouette unchanged. OSSEOUS STRUCTURES: Unchanged. VISUALIZED UPPER ABDOMEN: Normal. OTHER FINDINGS: None. IMPRESSION: No active disease.
[2017-12-22] MEDS ORDERED: Iodixanol 320 MG/ML 100 ML BOTTLE IV ONE (14:26)
[2017-12-22 14:52] LABS: URINE BILIRUBIN NEGATIVE (NEGATIVE); URINE BLOOD NEGATIVE (NEGATIVE); URINE CLARITY Clear (Clear); URINE COLOR Yellow (YELLOW); URINE GLUCOSE (UA) 3+ mg/dL (Normal); URINE LEUKOCYTE ESTERASE NEG Leu/uL (Negative); URINE PROTEIN NEGATIVE (NEGATIVE); URINE UROBILINOGEN NORMAL mg/dL (0.2-1.0)
--- NOTE | 2017-12-22 15:39 | CT ---
PROCEDURE: CT Abdomen and Pelvis with contrast HISTORY: abd pain COMPARISON: None. TECHNIQUE: Contrast dose: 100 mL Visipaque 320 Radiation dose: Total exam DLP = 388.1 mGy-cm. This CT exam was performed using one or more of the following dose reduction techniques: Automated exposure control, adjustment of the mA and/or kV according to patient size, and/or use of iterative reconstruction technique. FINDINGS: LOWER THORAX: Unremarkable. LIVER: Unremarkable. No gross lesion or ductal dilatation. GALLBLADDER AND BILE DUCTS: Gallbladder distention with questionable pericholecystic stranding. PANCREAS: Unremarkable. No gross lesion or ductal dilatation. SPLEEN: Unremarkable. ADRENALS: Unremarkable. No mass. KIDNEYS AND URETERS: Unremarkable. No hydronephrosis. No solid mass. VASCULATURE: Unremarkable. No aortic aneurysm. BOWEL: Colonic diverticulosis. No obstruction. No gross mural thickening. APPENDIX: Normal appendix. PERITONEUM: Trace perihepatic and perisplenic ascites. Small volume fluid in the left pericolic gutter. Foci of free air around the stomach and along the anterior peritoneum. Small right fat containing inguinal hernia. LYMPH NODES: Unremarkable. No enlarged lymph nodes. BLADDER: Unremarkable. REPRODUCTIVE: Unremarkable. BONES: Multilevel spinal degenerative changes. Grade 1-2 anterolisthesis of L5 on S1 OTHER FINDINGS: None. IMPRESSION: Foci of free air on the stomach along the anterior peritoneum consistent with perforated viscus. The source is difficult to discern. There is suggestion of a duodenal ulcer, but evaluation is limited due to motion artifact. There is focal hazy change along the anterior aspect of the mid descending colon which may be reactive or may represent an area of diverticulitis, although no discrete diverticulum is noted in this specific area (diverticulosis predominantly seen in the sigmoid colon). Gallbladder distention with suggestion of pericholecystic hazy change. This may be reactive or may represent in acute gallbladder process. Clinical correlation is recommended. Trace perihepatic, perisplenic and left paracolic gutter fluid. Additional findings as above. Findings conveyed to Dr. Garcia by Dr. Jacobsen at 3:32 p.m. on 12/22/2017.
[2017-12-22] MEDS ORDERED: Ciprofloxacin 400mg/200ml D5W 400 MG/200 ML BAG IV STA (15:58)
[2017-12-22] MEDS ORDERED: metroNIDAZOLE IV 500 mg/100 ml 500 MG/100 ML BAG IV SCH (16:00)
[2017-12-22 16:30] LABS: INR 1.1; PROTHROMBIN TIME 12.5 SECONDS (9.7-12.2)
[2017-12-22] MEDS ORDERED: Ciprofloxacin 400mg/200ml D5W 400 MG/200 ML BAG IVPB ONE (16:35)
[2017-12-22] MEDS ORDERED: HYDROmorphone 0.5 mg/0.5 ml ISec IVP PRN (16:44)
[2017-12-22] MEDS ORDERED: Morphine 4 MG/ML VIAL IVP PRN (16:47)
[2017-12-22] MEDS ORDERED: BUPIVACAINE 0.125%/0.9% NACL 600 ML IJ ONE (16:51)
--- NOTE | 2017-12-22 16:51 | CP.PCM.CON ---
<Albertina Tejada - Last Filed: 12/22/17 21:59> History of Present Illness - History of Present Illness History of Present Illness: General surgery consult note for Dr. Robel Tejada, PGY-1 Pt S & E at bedside. 77M w/PMH sig for reflux on omeprazole consulted for peritonitis. Pt reports severe, diffuse abdominal pain that started at 6am on day of evaluation. Pain is worse in epigastrium, non radiating, constant. Admits to emesis x 4, post- tussive, white fluid, nbnb. Admits to constipation. Last meal was 6pm on day prior to evaluation. Denies F & C, CP, SOB, changes in bladder habits, other complaints. CT in ED w/Foci of free air on the stomach along the anterior peritoneum consistent with perforated viscus. There is focal hazy change along the anterior aspect of the mid descending colon which may be reactive or may represent an area of diverticulitis, although no discrete diverticulum is noted in this specific area (diverticulosis predominantly seen in the sigmoid colon). Gallbladder distention with suggestion of pericholecystic hazy change. No leukocytosis. Febrile. Lactic Acid 2.8. Peritoneal. PMH: HTN, HLD, DM, refux PSH: R knee replacement All: PCN SH: Denies ETOH, tobacco or illicit drug use Review of Systems - Review of Systems All systems: reviewed and no additional remarkable complaints except - Constitutional Constitutional: absent: Chills, Fever - EENT Eyes: absent: Change in Vision Nose/Mouth/Throat: absent: Sore Throat - Cardiovascular Cardiovascular: absent: Chest Pain, Palpitations - Respiratory Respiratory: absent: Cough - Gastrointestinal Gastrointestinal: Abdominal Pain, Bloating, Change in Bowel Habits, Constipation , Nausea, Vomiting. absent: Diarrhea, Hematemesis, Hematochezia - Genitourinary Genitourinary: absent: Change in Urinary Stream - Musculoskeletal Musculoskeletal: absent: Neck Pain - Integumentary Integumentary: absent: Wounds - Neurological Neurological: absent: Dizziness Past Patient History - Infectious Disease Hx of Infectious Diseases: None - Past Medical History & Family History Past Medical History?: Yes - Past Social History Smoking Status: Never Smoked - CARDIAC Hx Hypercholesterolemia: Yes Hx Hypertension: Yes - PULMONARY Hx Respiratory Disorders: No - NEUROLOGICAL Hx Neurological Disorder: Yes Hx Syncope: Yes - HEENT Hx HEENT Problems: No - RENAL Hx Chronic Kidney Disease: No - ENDOCRINE/METABOLIC Hx Diabetes Mellitus Type 2: Yes - HEMATOLOGICAL/ONCOLOGICAL Hx Blood Disorders: No - INTEGUMENTARY Hx Dermatological Problems: No - MUSCULOSKELETAL/RHEUMATOLOGICAL Hx Arthritis: Yes (L TKR) - GASTROINTESTINAL Hx Gastrointestinal Disorders: Yes Hx Gastroesophageal Reflux: Yes - GENITOURINARY/GYNECOLOGICAL Hx Genitourinary Disorders: No - PSYCHIATRIC Hx Substance Use: No - SURGICAL HISTORY Hx Surgeries: Yes Other/Comment: left knee replacement, and left nerve repair, left and right hand nerve repair - ANESTHESIA Hx Anesthesia: Yes Hx Anesthesia Reactions: No Hx Malignant Hyperthermia: No Meds Allergies/Adverse Reactions: Allergies Allergy/AdvReac Type Severity Reaction Status Date / Time Penicillins Allergy Mild Verified 12/22/17 11:50 - Medications Medications: Current Medications Ciprofloxacin (Cipro 400mg/200ml Dsw) 400 mg in 200 mls @ 133.333 mls/hr IV STAT STA PRN Reason: Protocol Stop: 12/22/17 17:27 Last Admin: 12/22/17 16:36 Dose: 133.333 mls/hr Metronidazole (Flagyl) 500 mg in 100 mls @ 100 mls/hr IV STAT KAROLINE PRN Reason: Protocol Lactated Ringer's (Lactated Ringer's) 1,000 mls @ 150 mls/hr IV .Q6H40M KAROLINE Morphine Sulfate (Morphine) 4 mg IVP Q4 PRN PRN Reason: Pain, severe (8-10) Ondansetron HCl (Zofran Inj) 4 mg IVP Q6H PRN PRN Reason: Nausea/Vomiting Physical Exam - Constitutional Appears: Non-toxic, No Acute Distress - Head Exam Head Exam: ATRAUMATIC, NORMAL INSPECTION, NORMOCEPHALIC - Eye Exam Eye Exam: EOMI, Normal appearance - ENT Exam ENT Exam: Mucous Membranes Dry, Normal Exam (poor dentition) - Neck Exam Neck exam: Positive for: Normal Inspection (kyphosis) - Respiratory Exam Respiratory Exam: Clear to Auscultation Bilateral, NORMAL BREATHING PATTERN - Cardiovascular Exam Cardiovascular Exam: Tachycardia, +S1, +S2 - GI/Abdominal Exam GI & Abdominal Exam: Distended, Firm, Guarding, Tenderness (diffuse, sofía epigastric). absent: Hernia, Soft - Extremities Exam Extremities exam: Positive for: normal inspection - Neurological Exam Neurological exam: Alert, CN II-XII Intact, Oriented x3 - Psychiatric Exam Psychiatric exam: Normal Affect, Normal Mood - Skin Skin Exam: Dry, Intact, Normal Color, Warm Results - Vital Signs Recent Vital Signs: Last Vital Signs Temp 100.2 F H 12/22/17 15:54 Pulse 122 H 12/22/17 15:54 Resp 16 12/22/17 15:54 BP 124/72 12/22/17 15:54 Pulse Ox 96 12/22/17 16:15 - Labs Result Diagrams: 12/22/17 12:44 12/22/17 12:44 Labs: Laboratory Results - last 24 hr 12/22/17 12/22/17 12/22/17 11:45 12:44 12:44 WBC 9.4 D RBC 4.14 L Hgb 12.6 Hct 37.5 MCV 90.6 MCH 30.4 MCHC 33.5 RDW 12.8 Plt Count 274 MPV 9.5 Neut % (Auto) 85.4 H Lymph % (Auto) 10.4 L [place] % (Auto) 3.8 Eos % (Auto) 0.0 Baso % (Auto) 0.4 Neut # (Auto) 8.1 H Lymph # (Auto) 1.0 [place] # (Auto) 0.4 Eos # (Auto) 0.0 Baso # (Auto) 0.0 PT INR APTT Sodium 142 Potassium 4.4 Chloride 100 Carbon Dioxide 18 L Anion Gap 28 H BUN 31 H Creatinine 1.5 Est GFR ( Amer) 55 Est GFR (Non-Af Amer) 45 POC Glucose (mg/dL) 277 H Random Glucose 333 H Lactic Acid Calcium 10.6 H Total Bilirubin 0.8 AST 26 ALT 12 L Alkaline Phosphatase 75 Total Protein 7.7 Albumin 4.1 Globulin 3.5 Albumin/Globulin Ratio 1.2 Lipase 180 Urine Color Urine Clarity Urine pH Ur Specific [place] Urine Protein Urine Glucose (UA) Urine Ketones Urine Blood Urine Nitrate Urine Bilirubin Urine Urobilinogen Ur Leukocyte Esterase Urine WBC (Auto) 12/22/17 12/22/17 12/22/17 14:39 16:18 16:18 WBC RBC Hgb Hct MCV MCH MCHC RDW Plt Count MPV Neut % (Auto) Lymph % (Auto) [place] % (Auto) Eos % (Auto) Baso % (Auto) Neut # (Auto) Lymph # (Auto) [place] # (Auto) Eos # (Auto) Baso # (Auto) PT 12.5 H INR 1.1 APTT 25 Sodium Potassium Chloride Carbon Dioxide Anion Gap BUN Creatinine Est GFR ( Amer) Est GFR (Non-Af Amer) POC Glucose (mg/dL) Random Glucose Lactic Acid 2.8 H Calcium Total Bilirubin AST ALT Alkaline Phosphatase Total Protein Albumin Globulin Albumin/Globulin Ratio Lipase Urine Color Yellow Urine Clarity Clear Urine pH 5.0 Ur Specific [place] 1.013 Urine Protein Negative Urine Glucose (UA) 3+ H Urine Ketones 1+ H Urine Blood Negative Urine Nitrate Negative Urine Bilirubin Negative Urine Urobilinogen Normal Ur Leukocyte Esterase Neg Urine WBC (Auto) < 1 Assessment & Plan - Assessment and Plan (Free Text) Assessment: 77M w/PMH sig for reflux consulted for acute abdomen, free air on CT Plan: Plan for OR today Consent in chart NPO Pain control Anti-emetic Type & cross Blood consent in chart FU AM labs IVF ABx DW attending Mallory, PGY-1 - Date & Time Date: 12/22/17 Time: 17:10 <Fred Villa - Last Filed: 12/27/17 15:30> Meds - Medications Medications: Current Medications Aspirin (Aspirin Supp) 300 mg AL DAILY [facility] Last Admin: 12/27/17 11:37 Dose: 300 mg Digoxin (Lanoxin) 0.25 mg IVP DAILY@1800 KAROLINE Metronidazole (Flagyl) 500 mg in 100 mls @ 100 mls/hr IVPB Q8H KAROLINE PRN Reason: Protocol Last Admin: 12/27/17 11:19 Dose: 100 mls/hr Fluconazole (Diflucan Iv 200 Mg/100 Ml Ns) 100 mls @ 100 mls/hr IVPB DAILY KAROLINE PRN Reason: Protocol Last Admin: 12/27/17 10:22 Dose: 100 mls/hr Ciprofloxacin (Cipro 200mg/100ml D5w) 100 mls @ 67 mls/hr IVPB Q12H KAROLINE PRN Reason: Protocol Last Admin: 12/27/17 09:34 Dose: 67 mls/hr BUPIVACAINE 0.125%/0.9% NACL (Bupivacaine-Ns 0.125% On-Q [employer] Customer Service Representative) 600 mls @ 4 mls/ hr IJ ONCE ONE Stop: 12/31/17 16:54 Last Admin: 12/25/17 19:38 Dose: Not Given Furosemide 100 mg/ Sodium (Chloride) 100 mls @ 5 mls/hr IV .Q20H KAROLINE; 5 MG/HR PRN Reason: Protocol Last Admin: 12/27/17 04:00 Dose: Not Given Heparin Sodium/Sodium Chloride (Heparin 25578 Units/250ml 1/2 Normal Saline) 25 ,000 units in 250 mls @ 7.947 mls/hr IV .Q24H PRN; Protocol; 12 UNITS/KG/HR PRN Reason: PROTOCOL Last Admin: 12/26/17 22:50 Dose: 12 units/kg/hr, 7.947 mls/hr Vancomycin/Sodium Chloride (Vancomycin 1 Gm/Ns 200 Ml) 1 gm in 200 mls @ 133.333 mls/hr IVPB Q24H KAROLINE PRN Reason: Protocol Last Admin: 12/27/17 11:37 Dose: 133.333 mls/hr Multivitamins/Vitamin C 10 ml/Chromium/Copper/Manganese/Seleni/Zn 1 ml/ Amino Acids 1,011 mls @ 42 mls/hr IV .Q24H KAROLINE Stop: 12/27/17 17:59 Last Admin: 12/26/17 18:05 Dose: 42 mls/hr Aztreonam 1 gm/ Sodium (Chloride) 100 mls @ 100 mls/hr IVPB Q12H KAROLINE PRN Reason: Protocol Last Admin: 12/27/17 13:00 Dose: 100 mls/hr Acetaminophen (Ofirmev) 100 mls @ 400 mls/hr IV Q6 PRN PRN Reason: Pain, moderate (4-7) Stop: 12/28/17 09:34 Multivitamins/Vitamin C 10 ml/Chromium/Copper/Manganese/Zinc 1 ml/ Amino Acids 1,011 mls @ 42 mls/hr IV .Q24H ONE Stop: 12/28/17 17:59 Insulin Aspart (Novolog) 0 unit SC Q6 KAROLINE PRN Reason: Protocol Metoprolol Tartrate (Lopressor) 2.5 mg IVP Q12H [facility] Last Admin: 12/27/17 11:20 Dose: Not Given Morphine Sulfate (Morphine) 2 mg IVP Q4 PRN PRN Reason: Pain, severe (8-10) Last Admin: 04/18/18 11:19 Dose: 2 mg Ondansetron HCl (Zofran Inj) 4 mg IVP Q6H PRN PRN Reason: Nausea/Vomiting Pantoprazole Sodium (Protonix Inj) 40 mg IVP Q12H KAROLINE Last Admin: 12/27/17 09:35 Dose: 40 mg Results - Vital Signs Recent Vital Signs: Last Vital Signs Temp 98.5 F 12/27/17 12:00 Pulse 79 12/27/17 14:01 Resp 14 12/27/17 14:01 BP 98/62 L 12/27/17 14:01 Pulse Ox 95 12/27/17 14:01 - Labs Result Diagrams: 12/27/17 06:04 12/27/17 06:04 Labs: Laboratory Results - last 24 hr 12/26/17 12/26/17 12/26/17 16:23 17:29 23:29 WBC RBC Hgb Hct MCV MCH MCHC RDW Plt Count MPV Neut % (Auto) Lymph % (Auto) [place] % (Auto) Eos % (Auto) Baso % (Auto) Neut # (Auto) Lymph # (Auto) [place] # (Auto) Eos # (Auto) Baso # (Auto) Neutrophils % (Manual) Band Neutrophils % Lymphocytes % (Manual) Monocytes % (Manual) Toxic Granulation Dohle Bodies Platelet Estimate Large Platelets Poikilocytosis (manual Ovalocytes APTT 51 H D Sodium Potassium Chloride Carbon Dioxide Anion Gap BUN Creatinine Est GFR ( Amer) Est GFR (Non-Af Amer) POC Glucose (mg/dL) 211 H 254 H Random Glucose Calcium Phosphorus Magnesium Total Bilirubin AST ALT Alkaline Phosphatase Troponin I Total Protein Albumin Globulin Albumin/Globulin Ratio Triglycerides Cholesterol LDL Cholesterol Direct HDL Cholesterol 12/27/17 12/27/17 12/27/17 05:50 06:04 06:04 WBC 10.3 RBC 3.48 L Hgb 10.5 L Hct 31.1 L MCV 89.4 MCH 30.3 MCHC 33.9 RDW 13.0 Plt Count 182 MPV 9.7 Neut % (Auto) 90.7 H Lymph % (Auto) 4.2 L [place] % (Auto) 4.0 Eos % (Auto) 0.7 Baso % (Auto) 0.4 Neut # (Auto) 9.4 H Lymph # (Auto) 0.4 L [place] # (Auto) 0.4 Eos # (Auto) 0.1 Baso # (Auto) 0.0 Neutrophils % (Manual) 84 H Band Neutrophils % 3 H Lymphocytes % (Manual) 4 L Monocytes % (Manual) 9 Toxic Granulation Present Dohle Bodies Present Platelet Estimate Normal Large Platelets Present Poikilocytosis (manual Slight Ovalocytes Slight APTT Sodium 136 Potassium 3.1 L Chloride 100 Carbon Dioxide 26 Anion Gap 13 BUN 48 H Creatinine 1.6 H Est GFR ( Amer) 51 Est GFR (Non-Af Amer) 42 POC Glucose (mg/dL) 301 H Random Glucose 306 H Calcium 9.0 Phosphorus 3.3 Magnesium 1.8 Total Bilirubin 0.5 AST 16 L D ALT 26 Alkaline Phosphatase 51 Troponin I Total Protein 5.0 L Albumin 2.2 L Globulin 2.8 Albumin/Globulin Ratio 0.8 L Triglycerides 107 Cholesterol 69 LDL Cholesterol Direct < 30 HDL Cholesterol 25 L 12/27/17 12/27/17 12/27/17 06:04 11:15 13:05 WBC RBC Hgb Hct MCV MCH MCHC RDW Plt Count MPV Neut % (Auto) Lymph % (Auto) [place] % (Auto) Eos % (Auto) Baso % (Auto) Neut # (Auto) Lymph # (Auto) Gibson # (Auto) Eos # (Auto) Baso # (Auto) Neutrophils % (Manual) Band Neutrophils % Lymphocytes % (Manual) Monocytes % (Manual) Toxic Granulation Dohle Bodies Platelet Estimate Large Platelets Poikilocytosis (manual Ovalocytes APTT 54 H Sodium Potassium Chloride Carbon Dioxide Anion Gap BUN Creatinine Est GFR ( Amer) Est GFR (Non-Af Amer) POC Glucose (mg/dL) 267 H Random Glucose Calcium Phosphorus Magnesium Total Bilirubin AST ALT Alkaline Phosphatase Troponin I 2.2300 H* Total Protein Albumin Globulin Albumin/Globulin Ratio Triglycerides Cholesterol LDL Cholesterol Direct HDL Cholesterol Attending/Attestation - Attestation I have personally seen and examined this patient.: Yes I have fully participated in the care of the patient.: Yes I have reviewed all pertinent clinical information: Yes Notes (Text): Pt was seen and examined at bedside Agree with above note and assessment Pt with upper abdominal pain and tenderness Abdomen distended Labs and radiology reviewed Ass: Perforated viscus with leucocytosis IV antibiotics NPO, IVF OR for Exp lap and possible bowel resection Consent Plan d.w pt and in detail Risk and benefit explained in detail.
[2017-12-22] MEDS ORDERED: Lidocaine/Epinephrine 1% 1:100000 10 ML IJ ONE (17:12)
[2017-12-22] MEDS ORDERED: Bupivacaine HCl 0.25% PF (30 ml) Inj ONE (17:12)
--- NOTE | 2017-12-22 17:28 | RAD ---
HISTORY: NGT position COMPARISON: Chest radiograph performed earlier the same day FINDINGS: LUNGS: Low lung volumes. No active pulmonary disease. PLEURA: No significant pleural effusion identified, no pneumothorax apparent. CARDIOVASCULAR: Atherosclerotic aortic calcifications. Cardiomediastinal silhouette unchanged. OSSEOUS STRUCTURES: Unchanged. VISUALIZED UPPER ABDOMEN: Pneumoperitoneum seen under both diaphragms. OTHER FINDINGS: New enteric tube. IMPRESSION: New enteric tube without visualization of the tip. Abdominal radiograph may better penetrated the abdomen for better visualization of enteric tube tip. Pneumoperitoneum.
[2017-12-22] MEDS: Lactated Ringer's 1,000 ML IV SCH ×2 (17:40→23:50)
[2017-12-22] MEDS ORDERED: Propofol 10 mg/ml Inj (20 ML) ONE (17:52)
[2017-12-22] MEDS ORDERED: metroNIDAZOLE IV 500 mg/100 ml 500 MG/100 ML BAG ONE (18:49)
[2017-12-22] MEDS ORDERED: Clindamycin 600mg/50ml NS 600 MG/50 ML BAG IVPB ONE (19:03)
[2017-12-22] MEDS ORDERED: Neostigmine Methylsulfate 3mg/3ml Syringe IV ONE (20:33)
[2017-12-22] MEDS ORDERED: metroNIDAZOLE IV 500 mg/100 ml 500 MG/100 ML BAG IVPB SCH (22:00)
[2017-12-22] MEDS ORDERED: (Novolin R) Insulin Human Regular 100 units/ml vial SC SCH ×2 (22:00→22:15)
--- NOTE | 2017-12-22 22:02 | PCM.SURG1 ---
Surgeon's Initial Post Op Note - Surgeon's Notes Surgeon: Dr. Villa Bolting Machine Operator: Albertina Tejada, PGY-1 Type of Anesthesia: General Endo Pre-Operative Diagnosis: Acute abdomen Operative Findings: See op report Post-Operative Diagnosis: Perforation of duodenal ulcer Operation Performed: Ex-lap with Repair of peptic perforation with Colin patch Specimen/Specimens Removed: Peritoneal fluid Estimated Blood Loss: EBL {In ML}: 100 Blood Products Given: N/A Drains Used: Constantino Post-Op Condition: Fair Date of Surgery/Procedure: 12/22/17 Time of Surgery/Procedure: 22:02
[2017-12-22] MEDS ORDERED: Acetaminophen IV 1,000 MG in Premixed IV 1 EA IV PRN (22:16)
--- NOTE | 2017-12-22 22:22 | CP.PCM.CON ---
History of Present Illness - History of Present Illness History of Present Illness: 77yo M. PMHx HTN, HLD, DM, GERD. p/w perforated duodenal ulcer with peritoneal contamination, s/p rachelle patch repair with ex-lap and washout. Admitted to ICU for post-op monitoring. Review of Systems - Review of Systems All systems: reviewed and no additional remarkable complaints except - Gastrointestinal Gastrointestinal: Abdominal Pain (mild) Past Patient History - Infectious Disease Hx of Infectious Diseases: None - Past Medical History & Family History Past Medical History?: Yes - Past Social History Smoking Status: Never Smoked - CARDIAC Hx Hypercholesterolemia: Yes Hx Hypertension: Yes - PULMONARY Hx Respiratory Disorders: No - NEUROLOGICAL Hx Neurological Disorder: Yes Hx Syncope: Yes - HEENT Hx HEENT Problems: No - RENAL Hx Chronic Kidney Disease: No - ENDOCRINE/METABOLIC Hx Diabetes Mellitus Type 2: Yes - HEMATOLOGICAL/ONCOLOGICAL Hx Blood Disorders: No - INTEGUMENTARY Hx Dermatological Problems: No - MUSCULOSKELETAL/RHEUMATOLOGICAL Hx Arthritis: Yes (L TKR) - GASTROINTESTINAL Hx Gastrointestinal Disorders: Yes Hx Gastroesophageal Reflux: Yes - GENITOURINARY/GYNECOLOGICAL Hx Genitourinary Disorders: No - PSYCHIATRIC Hx Substance Use: No - SURGICAL HISTORY Hx Surgeries: Yes Other/Comment: left knee replacement, and left nerve repair, left and right hand nerve repair - ANESTHESIA Hx Anesthesia: Yes Hx Anesthesia Reactions: No Hx Malignant Hyperthermia: No Meds Allergies/Adverse Reactions: Allergies Allergy/AdvReac Type Severity Reaction Status Date / Time Penicillins Allergy Mild Verified 12/22/17 11:50 - Medications Medications: Current Medications Enoxaparin Sodium (Lovenox) 40 mg SC DAILY [facility] Metronidazole (Flagyl) 500 mg in 100 mls @ 100 mls/hr IV STAT KAROLINE PRN Reason: Protocol Lactated Ringer's (Lactated Ringer's) 1,000 mls @ 150 mls/hr IV .Q6H40M KAROLINE Last Admin: 12/22/17 17:40 Dose: 150 mls/hr BUPIVACAINE 0.125%/0.9% NACL (Bupivacaine-Ns 0.125% On-Q Camera Prototyping Engineer) 600 mls @ 4 mls/ hr IJ ONCE ONE Stop: 12/28/17 22:50 Ciprofloxacin (Cipro 400mg/200ml Dsw) 400 mg in 200 mls @ 133 mls/hr IVPB Q12H KAROLINE PRN Reason: Protocol Metronidazole (Flagyl) 500 mg in 100 mls @ 100 mls/hr IVPB Q8 KAROLINE PRN Reason: Protocol Insulin Human Regular (Novolin R) 0 unit SC Q6H KAROLINE PRN Reason: Protocol Ondansetron HCl (Zofran Inj) 4 mg IVP Q6H PRN PRN Reason: Nausea/Vomiting Pantoprazole Sodium (Protonix Inj) 40 mg IVP Q12H [facility] Physical Exam - Head Exam Head Exam: ATRAUMATIC, NORMAL INSPECTION, NORMOCEPHALIC - Eye Exam Eye Exam: EOMI, Normal appearance, PERRL - Respiratory Exam Respiratory Exam: Clear to Auscultation Bilateral, NORMAL BREATHING PATTERN - Cardiovascular Exam Cardiovascular Exam: REGULAR RHYTHM - GI/Abdominal Exam GI & Abdominal Exam: Tenderness Additional comments: onQ pump in place, surgical wound C/D/I - Neurological Exam Neurological exam: Alert, CN II-XII Intact Results - Vital Signs Recent Vital Signs: Last Vital Signs Temp 99.6 F 12/22/17 17:22 Pulse 89 12/22/17 17:22 Resp 20 12/22/17 17:22 BP 131/71 12/22/17 17:22 Pulse Ox 93 L 12/22/17 17:22 - Labs Result Diagrams: 12/22/17 12:44 12/22/17 12:44 Labs: Laboratory Results - last 24 hr 12/22/17 12/22/17 12/22/17 11:45 12:44 12:44 WBC 9.4 D RBC 4.14 L Hgb 12.6 Hct 37.5 MCV 90.6 MCH 30.4 MCHC 33.5 RDW 12.8 Plt Count 274 MPV 9.5 Neut % (Auto) 85.4 H Lymph % (Auto) 10.4 L [place] % (Auto) 3.8 Eos % (Auto) 0.0 Baso % (Auto) 0.4 Neut # (Auto) 8.1 H Lymph # (Auto) 1.0 [place] # (Auto) 0.4 Eos # (Auto) 0.0 Baso # (Auto) 0.0 PT INR APTT Sodium 142 Potassium 4.4 Chloride 100 Carbon Dioxide 18 L Anion Gap 28 H BUN 31 H Creatinine 1.5 Est GFR ( Amer) 55 Est GFR (Non-Af Amer) 45 POC Glucose (mg/dL) 277 H Random Glucose 333 H Lactic Acid Calcium 10.6 H Total Bilirubin 0.8 AST 26 ALT 12 L Alkaline Phosphatase 75 Total Protein 7.7 Albumin 4.1 Globulin 3.5 Albumin/Globulin Ratio 1.2 Lipase 180 Urine Color Urine Clarity Urine pH Ur Specific [place] Urine Protein Urine Glucose (UA) Urine Ketones Urine Blood Urine Nitrate Urine Bilirubin Urine Urobilinogen Ur Leukocyte Esterase Urine WBC (Auto) Blood Type Antibody Screen 12/22/17 12/22/17 12/22/17 14:39 16:18 16:18 WBC RBC Hgb Hct MCV MCH MCHC RDW Plt Count MPV Neut % (Auto) Lymph % (Auto) [place] % (Auto) Eos % (Auto) Baso % (Auto) Neut # (Auto) Lymph # (Auto) [place] # (Auto) Eos # (Auto) Baso # (Auto) PT 12.5 H INR 1.1 APTT 25 Sodium Potassium Chloride Carbon Dioxide Anion Gap BUN Creatinine Est GFR ( Amer) Est GFR (Non-Af Amer) POC Glucose (mg/dL) Random Glucose Lactic Acid 2.8 H Calcium Total Bilirubin AST ALT Alkaline Phosphatase Total Protein Albumin Globulin Albumin/Globulin Ratio Lipase Urine Color Yellow Urine Clarity Clear Urine pH 5.0 Ur Specific [place] 1.013 Urine Protein Negative Urine Glucose (UA) 3+ H Urine Ketones 1+ H Urine Blood Negative Urine Nitrate Negative Urine Bilirubin Negative Urine Urobilinogen Normal Ur Leukocyte Esterase Neg Urine WBC (Auto) < 1 Blood Type Antibody Screen 12/22/17 16:25 WBC RBC Hgb Hct MCV MCH MCHC RDW Plt Count MPV Neut % (Auto) Lymph % (Auto) [place] % (Auto) Eos % (Auto) Baso % (Auto) Neut # (Auto) Lymph # (Auto) [place] # (Auto) Eos # (Auto) Baso # (Auto) PT INR APTT Sodium Potassium Chloride Carbon Dioxide Anion Gap BUN Creatinine Est GFR ( Amer) Est GFR (Non-Af Amer) POC Glucose (mg/dL) Random Glucose Lactic Acid Calcium Total Bilirubin AST ALT Alkaline Phosphatase Total Protein Albumin Globulin Albumin/Globulin Ratio Lipase Urine Color Urine Clarity Urine pH Ur Specific [place] Urine Protein Urine Glucose (UA) Urine Ketones Urine Blood Urine Nitrate Urine Bilirubin Urine Urobilinogen Ur Leukocyte Esterase Urine WBC (Auto) Blood Type O POSITIVE Antibody Screen Negative Assessment & Plan (1) Perforated abdominal viscus Assessment and Plan: 77yo M. PMHx HTN, HLD, DM, GERD. p/w perforated duodenal ulcer with peritoneal contamination, s/p rachelle patch repair with ex-lap and washout. Admitted to ICU post-op for monitoring. Neuro: alert and oriented, pain control with IV Acetaminophen and Bupivicaine pump. Pulm: no acute issues, breathing spontaneously on room air. CV: hemodynamically stable Hem: no acute issues Renal: no acute issues, will monitor urine output. LR@150 Endo: DM type 2, SISS for coverage GI: NPO ID: sepsis from peritonitis, continue Cipro and Flagyl . DVT proph - lovenox GI proph - protonix moyer for strict I/O's during acute illness Code status - full code Critical Care Time spent 35 minutes The documented time is cumulative and includes review of patient data/exams/labs /chart review and examination of the patient on rounds and throughout the day; time is exclusive of any procedures or teaching time. Status: Acute
[2017-12-22] MEDS ORDERED: (Novolog) Insulin Aspart, Recombinant 100 u/ml 10 ml vial SC SCH (22:30)
[2017-12-22 22:42] LABS: ARTERIAL BLOOD GAS HCO3 16.8 mmol/L (21-28); ARTERIAL BLOOD GAS O2 SAT 93.1 % (95-98); ARTERIAL BLOOD GAS PCO2 36 mm/Hg (35-45); ARTERIAL BLOOD GAS PH 7.26 (7.35-7.45); ARTERIAL BLOOD GAS PO2 60 mm/Hg (80-100); ARTERIAL BLOOD GAS TCO2 17.3 mmol/L (22-28)
[2017-12-22 23:28] LABS: BASO % 0.3 % (0.0-2.0); HEMOGLOBIN 12.8 g/dL (12.0-18.0); LYMPH # 0.6 K/uL (1.0-4.3); LYMPH % 7.5 % (20.0-40.0); MEAN CELL VOLUME 92.2 fL (80.0-94.0); MEAN CORPUSCULAR HEMOGLOBIN 30.5 pg (27.0-31.0); MEAN CORPUSCULAR HGB CONC 33.1 g/dL (33.0-37.0); MEAN PLATELET VOLUME 10.1 fL (7.2-11.7); MONO # 0.4 K/uL (0.0-0.8); MONO % 5.1 % (0.0-10.0); NEUT # 7.3 K/uL (1.8-7.0); NEUT % 87.1 % (50.0-75.0); PLATELET COUNT 212 K/uL (130-400); RBC 4.18 Mil/uL (4.40-5.90); RED CELL DISTRIBUTION WIDTH 12.9 % (11.5-14.5); WHITE BLOOD COUNT 8.3 K/uL (4.8-10.8)
--- NOTE | 2017-12-22 23:41 | CP.PCM.HP ---
History of Present Illness - History of Present Illness History of Present Illness: 77yo M. PMHx HTN, HLD, DM, GERD. p/w perforated duodenal ulcer with peritoneal contamination, s/p rachelle patch repair with ex-lap and washout. Admitted to ICU for post-op monitoring. Past Patient History - Infectious Disease Hx of Infectious Diseases: None - Past Medical History & Family History Past Medical History?: Yes - Past Social History Smoking Status: Never Smoked - CARDIAC Hx Hypercholesterolemia: Yes Hx Hypertension: Yes - PULMONARY Hx Respiratory Disorders: No - NEUROLOGICAL Hx Neurological Disorder: Yes Hx Syncope: Yes - HEENT Hx HEENT Problems: No - RENAL Hx Chronic Kidney Disease: No - ENDOCRINE/METABOLIC Hx Diabetes Mellitus Type 2: Yes - HEMATOLOGICAL/ONCOLOGICAL Hx Blood Disorders: No - INTEGUMENTARY Hx Dermatological Problems: No - MUSCULOSKELETAL/RHEUMATOLOGICAL Hx Arthritis: Yes (L TKR) Hx Falls: No - GASTROINTESTINAL Hx Gastrointestinal Disorders: Yes Hx Gastroesophageal Reflux: Yes - GENITOURINARY/GYNECOLOGICAL Hx Genitourinary Disorders: No - PSYCHIATRIC Hx Substance Use: No - SURGICAL HISTORY Hx Surgeries: Yes Other/Comment: left knee replacement, and left nerve repair, left and right hand nerve repair - ANESTHESIA Hx Anesthesia: Yes Hx Anesthesia Reactions: No Hx Malignant Hyperthermia: No Has any member of the family had a problem w/ anesthesia?: No Meds Allergies/Adverse Reactions: Allergies Allergy/AdvReac Type Severity Reaction Status Date / Time Penicillins Allergy Mild Verified 12/22/17 11:50 Results - Vital Signs Recent Vital Signs: Last Vital Signs Temp 99.6 F 12/22/17 17:22 Pulse 89 12/22/17 17:22 Resp 16 12/22/17 22:34 BP 131/71 12/22/17 17:22 Pulse Ox 98 12/22/17 22:34 - Labs Result Diagrams: 12/22/17 23:25 12/22/17 12:44 Labs: Laboratory Results - last 24 hr 12/22/17 12/22/17 12/22/17 11:45 12:44 12:44 WBC 9.4 D RBC 4.14 L Hgb 12.6 Hct 37.5 MCV 90.6 MCH 30.4 MCHC 33.5 RDW 12.8 Plt Count 274 MPV 9.5 Neut % (Auto) 85.4 H Lymph % (Auto) 10.4 L Ellsworth % (Auto) 3.8 Eos % (Auto) 0.0 Baso % (Auto) 0.4 Neut # (Auto) 8.1 H Lymph # (Auto) 1.0 Ellsworth # (Auto) 0.4 Eos # (Auto) 0.0 Baso # (Auto) 0.0 PT INR APTT Puncture Site pCO2 pO2 HCO3 ABG pH ABG Total CO2 ABG O2 Saturation ABG Base Excess Eyal Test ABG Potassium A-a O2 Difference Respiratory Index Glucose Lactate Liter Flow FiO2 Crit Value Called To Crit Value Called By Crit Value Read Back Blood Gas Notified Time Sodium 142 Potassium 4.4 Chloride 100 Carbon Dioxide 18 L Anion Gap 28 H BUN 31 H Creatinine 1.5 Est GFR ( Amer) 55 Est GFR (Non-Af Amer) 45 POC Glucose (mg/dL) 277 H Random Glucose 333 H Lactic Acid Calcium 10.6 H Total Bilirubin 0.8 AST 26 ALT 12 L Alkaline Phosphatase 75 Total Protein 7.7 Albumin 4.1 Globulin 3.5 Albumin/Globulin Ratio 1.2 Lipase 180 Arterial Blood Potassium Urine Color Urine Clarity Urine pH Ur Specific Brock Urine Protein Urine Glucose (UA) Urine Ketones Urine Blood Urine Nitrate Urine Bilirubin Urine Urobilinogen Ur Leukocyte Esterase Urine WBC (Auto) Blood Type Antibody Screen 12/22/17 12/22/17 12/22/17 14:39 16:18 16:18 WBC RBC Hgb Hct MCV MCH MCHC RDW Plt Count MPV Neut % (Auto) Lymph % (Auto) Ellsworth % (Auto) Eos % (Auto) Baso % (Auto) Neut # (Auto) Lymph # (Auto) Ellsworth # (Auto) Eos # (Auto) Baso # (Auto) PT 12.5 H INR 1.1 APTT 25 Puncture Site pCO2 pO2 HCO3 ABG pH ABG Total CO2 ABG O2 Saturation ABG Base Excess Eyal Test ABG Potassium A-a O2 Difference Respiratory Index Glucose Lactate Liter Flow FiO2 Crit Value Called To Crit Value Called By Crit Value Read Back Blood Gas Notified Time Sodium Potassium Chloride Carbon Dioxide Anion Gap BUN Creatinine Est GFR ( Amer) Est GFR (Non-Af Amer) POC Glucose (mg/dL) Random Glucose Lactic Acid 2.8 H Calcium Total Bilirubin AST ALT Alkaline Phosphatase Total Protein Albumin Globulin Albumin/Globulin Ratio Lipase Arterial Blood Potassium Urine Color Yellow Urine Clarity Clear Urine pH 5.0 Ur Specific Brock 1.013 Urine Protein Negative Urine Glucose (UA) 3+ H Urine Ketones 1+ H Urine Blood Negative Urine Nitrate Negative Urine Bilirubin Negative Urine Urobilinogen Normal Ur Leukocyte Esterase Neg Urine WBC (Auto) < 1 Blood Type Antibody Screen 12/22/17 12/22/17 12/22/17 16:25 22:37 23:25 WBC 8.3 RBC 4.18 L Hgb 12.8 Hct 38.5 MCV 92.2 MCH 30.5 MCHC 33.1 RDW 12.9 Plt Count 212 MPV 10.1 Neut % (Auto) 87.1 H Lymph % (Auto) 7.5 L Ellsworth % (Auto) 5.1 Eos % (Auto) 0.0 Baso % (Auto) 0.3 Neut # (Auto) 7.3 H Lymph # (Auto) 0.6 L Ellsworth # (Auto) 0.4 Eos # (Auto) 0.0 Baso # (Auto) 0.0 PT INR APTT Puncture Site Lra pCO2 36 pO2 60 L HCO3 16.8 L ABG pH 7.26 L ABG Total CO2 17.3 L ABG O2 Saturation 93.1 L ABG Base Excess -10.0 L Eyal Test Na ABG Potassium 4.4 A-a O2 Difference 109.0 Respiratory Index 1.8 Glucose 366 H Lactate 4.3 H* Liter Flow 3.0 FiO2 30.0 Crit Value Called To Maria Luisa agricultural equipment operator Crit Value Called By Harlan Crit Value Read Back Y Blood Gas Notified Time 2241 Sodium 134.0 Potassium Chloride 102.0 Carbon Dioxide Anion Gap BUN Creatinine Est GFR ( Amer) Est GFR (Non-Af Amer) POC Glucose (mg/dL) Random Glucose Lactic Acid Calcium Total Bilirubin AST ALT Alkaline Phosphatase Total Protein Albumin Globulin Albumin/Globulin Ratio Lipase Arterial Blood Potassium 4.4 Urine Color Urine Clarity Urine pH Ur Specific Brock Urine Protein Urine Glucose (UA) Urine Ketones Urine Blood Urine Nitrate Urine Bilirubin Urine Urobilinogen Ur Leukocyte Esterase Urine WBC (Auto) Blood Type O POSITIVE Antibody Screen Negative
[2017-12-22 23:44] LABS: ALBUMIN 3.2 g/dL (3.5-5.0); CALCIUM 8.9 mg/dl (8.6-10.4)
[2017-12-22 23:53] LABS: BANDS 24 % (0-2); LYMPHOCYTE 6 % (20-40); METAMYELOCYTE 1 % (0-0); MONOCYTE 6 % (0-10); MYELOCYTE 1 % (0-0); NEUTROPHIL 62 % (50-75); PLATELET ESTIMATE NORMAL (NORMAL); TOTAL CELLS COUNTED 100
[2017-12-23] MEDS: (Novolog) Insulin Aspart, Recombinant 100 u/ml 10 ml vial SC SCH ×4 (00:09→17:41)
[2017-12-23] MEDS: metroNIDAZOLE IV 500 mg/100 ml 500 MG/100 ML BAG IVPB SCH ×3 (03:30→19:18)
[2017-12-23] MEDS: Ciprofloxacin 400mg/200ml D5W 400 MG/200 ML BAG IVPB SCH ×2 (03:36→16:24)
[2017-12-23 06:14] LABS: BASO % 0.1 % (0.0-2.0); HEMOGLOBIN 12.4 g/dL (12.0-18.0); LYMPH # 0.6 K/uL (1.0-4.3); MEAN CELL VOLUME 91.4 fL (80.0-94.0); MEAN CORPUSCULAR HEMOGLOBIN 30.2 pg (27.0-31.0); MEAN PLATELET VOLUME 9.2 fL (7.2-11.7); MONO # 0.5 K/uL (0.0-0.8); MONO % 4.6 % (0.0-10.0); NEUT # 9.4 K/uL (1.8-7.0); NEUT % 89.3 % (50.0-75.0); NRBC % 0.1 % (0.0-2.0); PLATELET COUNT 212 K/uL (130-400); RBC 4.12 Mil/uL (4.40-5.90); WHITE BLOOD COUNT 10.6 K/uL (4.8-10.8)
--- NOTE | 2017-12-23 06:27 | CP.PCM.PN ---
<Albertina Tejada - Last Filed: 12/23/17 07:09> Subjective - Date & Time of Evaluation Date of Evaluation: 12/23/17 Time of Evaluation: 06:25 - Subjective Subjective: General surgery progress note for Dr. Villa-Albertina Teajda, PGY-1 Pt S & E at bedside. Pt reports minimal pain over surgical site, pain well controlled. Denies N & V , F & C. No acute events per nursing, some tachycardia overnight into low 100' s. Constantino with 110cc/12H, serosanguinous output. UOP 47cc/hr. NGT w/110 cc dark brownish liquid output. Objective - Vital Signs/Intake and Output Vital Signs (last 24 hours): Temp Pulse Resp BP Pulse Ox 98.8 F 113 H 19 110/71 95 12/23/17 04:00 12/23/17 05:04 12/23/17 05:04 12/23/17 05:04 12/23/17 05:04 Intake and Output: 12/22/17 12/23/17 18:59 06:59 Intake Total 1600 1475 Output Total 825 Balance 1600 650 - Medications Medications: Current Medications Enoxaparin Sodium (Lovenox) 40 mg SC DAILY KAROLINE Metronidazole (Flagyl) 500 mg in 100 mls @ 100 mls/hr IV STAT KAROLINE PRN Reason: Protocol Lactated Ringer's (Lactated Ringer's) 1,000 mls @ 150 mls/hr IV .Q6H40M KAROLINE Last Admin: 12/22/17 23:50 Dose: 150 mls/hr BUPIVACAINE 0.125%/0.9% NACL (Bupivacaine-Ns 0.125% On-Q Intramural Director) 600 mls @ 4 mls/ hr IJ ONCE ONE Stop: 12/28/17 22:50 Ciprofloxacin (Cipro 400mg/200ml Dsw) 400 mg in 200 mls @ 133 mls/hr IVPB Q12H KAROLINE PRN Reason: Protocol Last Admin: 12/23/17 03:36 Dose: 133 mls/hr Acetaminophen 1,000 mg/ (Miscellaneous) 100 mls @ 400 mls/hr IV Q6 PRN PRN Reason: Pain, moderate (4-7) Stop: 12/23/17 22:17 Metronidazole (Flagyl) 500 mg in 100 mls @ 100 mls/hr IVPB Q8H KAROLINE PRN Reason: Protocol Last Admin: 12/23/17 03:30 Dose: 100 mls/hr Insulin Aspart (Novolog) 0 unit SC Q6 KAROLINE PRN Reason: Protocol Last Admin: 12/23/17 00:09 Dose: 3 unit Ondansetron HCl (Zofran Inj) 4 mg IVP Q6H PRN PRN Reason: Nausea/Vomiting Pantoprazole Sodium (Protonix Inj) 40 mg IVP Q12H [facility] Last Admin: 12/22/17 22:15 Dose: 40 mg - Labs Labs: 12/23/17 06:07 12/22/17 23:25 PT 12.5 SECONDS (9.7-12.2) H 12/22/17 16:18 INR 1.1 12/22/17 16:18 APTT 25 SECONDS (21-34) 12/22/17 16:18 - Constitutional Appears: Non-toxic, No Acute Distress - Head Exam Head Exam: ATRAUMATIC, NORMAL INSPECTION, NORMOCEPHALIC - Eye Exam Eye Exam: EOMI, Normal appearance - ENT Exam ENT Exam: Mucous Membranes Moist, Normal Exam (poor dentition) Additional comments: NGT in place - Neck Exam Neck Exam: absent: Normal Inspection (khyphosis) - Respiratory Exam Respiratory Exam: NORMAL BREATHING PATTERN. absent: Respiratory Distress - Cardiovascular Exam Cardiovascular Exam: Tachycardia, +S1, +S2 - GI/Abdominal Exam GI & Abdominal Exam: Soft, Tenderness (minimal, along midline incision). absent : Distended, Firm, Guarding, Rigid - Extremities Exam Extremities Exam: Normal Inspection - Neurological Exam Neurological Exam: Alert, Awake, CN II-XII Intact, Oriented x3 - Psychiatric Exam Psychiatric exam: Normal Affect, Normal Mood - Skin Skin Exam: Dry, Intact, Normal Color, Warm Additional comments: Midline dressing over abdomen, clean/dry/intact Assessment and Plan - Assessment and Plan (Free Text) Assessment: 77M POD#1 s/p Ex-lap with Repair of peptic perforation with Colin patch Plan: Cont pain control Cont NPO Maintain NGT, monitor output Monitor Constantino output OOBTC Activity as samantha with assistance Dressing re-inforced Hypomagnesium- replaced Further mgmt as per primary and ICU teams Will DW attending Mallory, PGY-1 <Fred Villa - Last Filed: 12/27/17 15:32> Objective - Vital Signs/Intake and Output Vital Signs (last 24 hours): Temp Pulse Resp BP Pulse Ox 98.5 F 79 14 98/62 L 95 12/27/17 12:00 12/27/17 14:01 12/27/17 14:01 12/27/17 14:01 12/27/17 14:01 Intake and Output: 12/27/17 12/27/17 06:59 18:59 Intake Total 1699.2 1179.2 Output Total 730 Balance 969.2 1179.2 - Medications Medications: Current Medications Aspirin (Aspirin Supp) 300 mg NH DAILY KAROLINE Last Admin: 12/27/17 11:37 Dose: 300 mg Digoxin (Lanoxin) 0.25 mg IVP DAILY@1800 KAROLINE Metronidazole (Flagyl) 500 mg in 100 mls @ 100 mls/hr IVPB Q8H KAROLINE PRN Reason: Protocol Last Admin: 12/27/17 11:19 Dose: 100 mls/hr Fluconazole (Diflucan Iv 200 Mg/100 Ml Ns) 100 mls @ 100 mls/hr IVPB DAILY KAROLINE PRN Reason: Protocol Last Admin: 12/27/17 10:22 Dose: 100 mls/hr Ciprofloxacin (Cipro 200mg/100ml D5w) 100 mls @ 67 mls/hr IVPB Q12H KAROLINE PRN Reason: Protocol Last Admin: 12/27/17 09:34 Dose: 67 mls/hr BUPIVACAINE 0.125%/0.9% NACL (Bupivacaine-Ns 0.125% On-Q Intramural Director) 600 mls @ 4 mls/ hr IJ ONCE ONE Stop: 12/31/17 16:54 Last Admin: 12/25/17 19:38 Dose: Not Given Furosemide 100 mg/ Sodium (Chloride) 100 mls @ 5 mls/hr IV .Q20H KAROLINE; 5 MG/HR PRN Reason: Protocol Last Admin: 12/27/17 04:00 Dose: Not Given Heparin Sodium/Sodium Chloride (Heparin 73477 Units/250ml 1/2 Normal Saline) 25 ,000 units in 250 mls @ 7.947 mls/hr IV .Q24H PRN; Protocol; 12 UNITS/KG/HR PRN Reason: PROTOCOL Last Admin: 12/26/17 22:50 Dose: 12 units/kg/hr, 7.947 mls/hr Vancomycin/Sodium Chloride (Vancomycin 1 Gm/Ns 200 Ml) 1 gm in 200 mls @ 133.333 mls/hr IVPB Q24H KAROLINE PRN Reason: Protocol Last Admin: 12/27/17 11:37 Dose: 133.333 mls/hr Multivitamins/Vitamin C 10 ml/Chromium/Copper/Manganese/Seleni/Zn 1 ml/ Amino Acids 1,011 mls @ 42 mls/hr IV .Q24H [facility] Stop: 12/27/17 17:59 Last Admin: 12/26/17 18:05 Dose: 42 mls/hr Aztreonam 1 gm/ Sodium (Chloride) 100 mls @ 100 mls/hr IVPB Q12H KAROLINE PRN Reason: Protocol Last Admin: 12/27/17 13:00 Dose: 100 mls/hr Acetaminophen (Ofirmev) 100 mls @ 400 mls/hr IV Q6 PRN PRN Reason: Pain, moderate (4-7) Stop: 12/28/17 09:34 Multivitamins/Vitamin C 10 ml/Chromium/Copper/Manganese/Zinc 1 ml/ Amino Acids 1,011 mls @ 42 mls/hr IV .Q24H ONE Stop: 12/28/17 17:59 Insulin Aspart (Novolog) 0 unit SC Q6 KAROLINE PRN Reason: Protocol Metoprolol Tartrate (Lopressor) 2.5 mg IVP Q12H [facility] Last Admin: 12/27/17 11:20 Dose: Not Given Morphine Sulfate (Morphine) 2 mg IVP Q4 PRN PRN Reason: Pain, severe (8-10) Last Admin: 12/27/17 11:19 Dose: 2 mg Ondansetron HCl (Zofran Inj) 4 mg IVP Q6H PRN PRN Reason: Nausea/Vomiting Pantoprazole Sodium (Protonix Inj) 40 mg IVP Q12H [facility] Last Admin: 12/27/17 09:35 Dose: 40 mg - Labs Labs: 12/27/17 06:04 12/27/17 06:04 PT 12.5 SECONDS (9.7-12.2) H 12/22/17 16:18 INR 1.1 12/22/17 16:18 APTT 54 SECONDS (21-34) H 12/27/17 06:04 Attending/Attestation - Attestation I have personally seen and examined this patient.: Yes I have fully participated in the care of the patient.: Yes I have reviewed all pertinent clinical information, including history, physical exam and plan: Yes Notes (Text): Pt was seen and examined at bedside Agree with above note and assessment Pt is improving clinically NPO, IVF, NG to LIS c/w current mx Plan d.w pt in detail
[2017-12-23 06:38] LABS: ALBUMIN 3.1 g/dL (3.5-5.0); CALCIUM 8.7 mg/dl (8.6-10.4)
[2017-12-23] MEDS: Lactated Ringer's 1,000 ML IV SCH ×3 (07:00→23:32)
[2017-12-23] MEDS: Magnesium Sulfate 1 gm in D5W 1 GM/100 ML BAG IVPB SCH ×4 (07:46→11:27)
--- NOTE | 2017-12-23 08:08 | CP.CCUPN ---
CCU Subjective - Physician Review Events Since Last Encounter (Free Text): 12/23/17 08:08 Postoperative day one Perforated duodenal ulcer, repair with a Colin patch. Postoperatively patient is currently doing well. Comparing of mild pain. NG tube drainage minimal He is not in any nausea, no vomiting now. Not in any distress. No chest pain, did not have a bowel movement. Currently on maintenance IV fluid On examination: Vital signs stable. Systolic blood pressure is 92, map 70 Chest good air entry bilaterally irregular heart sound. 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 CCU Objective - Vital Signs / Intake & Output Vital Signs (Last 4 hours): Vital Signs Pulse Resp BP Pulse Ox 12/23/17 08:04 103 H 21 92/64 L 96 12/23/17 08:00 102 H 21 96 12/23/17 07:34 101 H 19 95/58 L 97 12/23/17 07:04 104 H 26 H 94/60 L 97 12/23/17 07:00 105 H 23 97 12/23/17 06:34 110 H 22 94/67 L 96 12/23/17 06:04 108 H 23 111/72 96 12/23/17 06:00 113 H 26 H 97 12/23/17 05:34 107 H 23 101/66 97 12/23/17 05:04 113 H 19 110/71 95 12/23/17 05:00 116 H 22 95 12/23/17 04:34 104 H 16 106/72 97 12/23/17 04:10 102 H 21 97 Intake and Output (Last 8hrs): Intake & Output 12/22/17 12/23/17 12/23/17 22:59 06:59 14:59 Intake Total 2024 1200 150 Output Total 300 660 30 Balance 1725 540 120 Weight 140 lb 0.4 oz Intake: IV 1950 Intake, IV Amount 75 1200 150 Left Forearm 75 1200 150 Output: Gastric Amount 105 Left Nares 105 Drainage 110 Right Lower Abdomen 110 Urine 300 445 30 Urethral (Paulson) 150 445 30 Other: Voiding Method Indwelling Catheter - Medications Active Medications: Active Medications Generic Name Dose Route Start Last Admin Trade Name Freq PRN Reason Stop Dose Admin Enoxaparin Sodium 40 mg 12/23/17 10:00 Lovenox SC DAILY KAROLINE Metronidazole 500 mg in 100 mls @ 100 mls/hr 12/22/17 16:00 Flagyl IV STAT KAROLINE Protocol Lactated Ringer's 1,000 mls @ 150 mls/hr 12/22/17 16:45 12/23/17 07:00 Lactated Ringer's IV Not Given .[id number] KAROLINE BUPIVACAINE 0.125%/0.9% NACL 600 mls @ 4 mls/hr 12/22/17 16:51 Bupivacaine-Ns 0.125% On-Q Planning Specialist IJ 12/28/17 22:50 ONCE ONE Ciprofloxacin 400 mg in 200 mls @ 133 mls/hr 12/23/17 04:30 12/23/17 03:36 Cipro 400mg/200ml Dsw IVPB 133 mls/hr Q12H KAROILNE Administration Protocol Acetaminophen 1,000 mg/ 100 mls @ 400 mls/hr 12/22/17 22:16 Miscellaneous IV 12/23/17 22:17 Q6 PRN Pain, moderate (4-7) Metronidazole 500 mg in 100 mls @ 100 mls/hr 12/23/17 03:00 12/23/17 03:30 Flagyl IVPB 100 mls/hr Q8H KAROLINE Administration Protocol Magnesium Sulfate/Dextrose 1 gm in 100 mls @ 200 mls/hr 12/23/17 07:30 07:46 Magnesium Sulfate 1 Gm/100 Ml D5w IVPB 12/23/17 08:29 200 mls/hr Q30M KAROLINE Administration Magnesium Sulfate/Dextrose 1 gm in 100 mls @ 200 mls/hr 12/23/17 09:00 Magnesium Sulfate 1 Gm/100 Ml D5w IVPB 12/23/17 09:59 Q30M KAROLINE Insulin Aspart 0 unit 12/23/17 00:00 12/23/17 06:00 Novolog SC 6 unit Q6 KAROLINE Administration Protocol Ondansetron HCl 4 mg 12/22/17 16:46 Zofran Inj IVP Q6H PRN Nausea/Vomiting Pantoprazole Sodium 40 mg 12/22/17 22:15 12/22/17 22:15 Protonix Inj IVP 40 mg Q12H KAROLINE Administration - Patient Studies Lab Studies: Lab Studies 12/23/17 12/23/17 12/23/17 Range/Units 06:34 06:07 06:07 WBC 10.6 (4.8-10.8) K/uL RBC 4.12 L (4.40-5.90) Mil/uL Hgb 12.4 (12.0-18.0) g/dL Hct 37.7 (35.0-51.0) % MCV 91.4 (80.0-94.0) fL MCH 30.2 (27.0-31.0) pg MCHC 33.0 (33.0-37.0) g/dL RDW 13.0 (11.5-14.5) % Plt Count 212 (130-400) K/uL MPV 9.2 (7.2-11.7) fL Neut % (Auto) 89.3 H (50.0-75.0) % Lymph % (Auto) 6.0 L (20.0-40.0) % [place] % (Auto) 4.6 (0.0-10.0) % Eos % (Auto) 0.0 (0.0-4.0) % Baso % (Auto) 0.1 (0.0-2.0) % Neut # (Auto) 9.4 H (1.8-7.0) K/uL Lymph # (Auto) 0.6 L (1.0-4.3) K/uL [place] # (Auto) 0.5 (0.0-0.8) K/uL Eos # (Auto) 0.0 (0.0-0.7) K/uL Baso # (Auto) 0.0 (0.0-0.2) K/uL Neutrophils % (Manual) (50-75) % Band Neutrophils % (0-2) % Lymphocytes % (Manual) (20-40) % Monocytes % (Manual) (0-10) % Metamyelocytes % (0-0) % Myelocytes % (0-0) % Platelet Estimate (NORMAL) PT (9.7-12.2) SECONDS INR APTT (21-34) SECONDS Puncture Site pCO2 (35-45) mm/Hg pO2 (80-100) mm/Hg HCO3 (21-28) mmol/L ABG pH (7.35-7.45) ABG Total CO2 (22-28) mmol/L ABG O2 Saturation (95-98) % ABG Base Excess (-2.0-3.0) mmol/L Eyal Test ABG Potassium (3.6-5.2) mmol/L A-a O2 Difference mm/Hg Respiratory Index Glucose (75-110) mg/dl Lactate (0.7-2.1) mmol/L Liter Flow FiO2 % Crit Value Called To Crit Value Called By Crit Value Read Back Blood Gas Notified Time Sodium 138 (132-148) mmol/L Potassium 4.9 (3.6-5.2) mmol/L Chloride 103 (98-107) mmol/L Carbon Dioxide 19 L (22-30) mmol/L Anion Gap 21 H (10-20) BUN 30 H (9-20) mg/dL Creatinine 1.5 (0.8-1.5) mg/dL Est GFR ( Amer) 55 Est GFR (Non-Af Amer) 45 POC Glucose (mg/dL) 302 H (65-110) mg/dL Random Glucose 299 H (75-110) mg/dL Lactic Acid (0.7-2.1) mmol/L Calcium 8.7 (8.6-10.4) mg/dl Phosphorus 3.0 (2.5-4.5) mg/dL Magnesium 0.7 L* (1.6-2.3) mg/dL Total Bilirubin 0.8 (0.2-1.3) mg/dL AST 54 (17-59) U/L ALT 22 (21-72) U/L Alkaline Phosphatase 35 L (38-126) U/L Total Protein 6.0 L (6.3-8.3) g/dL Albumin 3.1 L (3.5-5.0) g/dL Globulin 3.0 (2.2-3.9) gm/dL Albumin/Globulin Ratio 1.0 (1.0-2.1) Lipase (23-300) U/L Arterial Blood Potassium (3.6-5.2) mmol/L Urine Color (YELLOW) Urine Clarity (Clear) Urine pH (5.0-8.0) Ur Specific [place] (1.003-1.030) Urine Protein (NEGATIVE) mg/dL Urine Glucose (UA) (Normal) mg/dL Urine Ketones (NEGATIVE) mg/dL Urine Blood (NEGATIVE) Urine Nitrate (NEGATIVE) Urine Bilirubin (NEGATIVE) Urine Urobilinogen (0.2-1.0) mg/dL Ur Leukocyte Esterase (Negative) [place]/uL Urine WBC (Auto) (0-5) /hpf Blood Type Antibody Screen 12/22/17 12/22/17 12/22/17 Range/Units 23:48 23:25 23:25 WBC 8.3 (4.8-10.8) K/uL RBC 4.18 L (4.40-5.90) Mil/uL Hgb 12.8 (12.0-18.0) g/dL Hct 38.5 (35.0-51.0) % MCV 92.2 (80.0-94.0) fL MCH 30.5 (27.0-31.0) pg MCHC 33.1 (33.0-37.0) g/dL RDW 12.9 (11.5-14.5) % Plt Count 212 (130-400) K/uL MPV 10.1 (7.2-11.7) fL Neut % (Auto) 87.1 H (50.0-75.0) % Lymph % (Auto) 7.5 L (20.0-40.0) % [place] % (Auto) 5.1 (0.0-10.0) % Eos % (Auto) 0.0 (0.0-4.0) % Baso % (Auto) 0.3 (0.0-2.0) % Neut # (Auto) 7.3 H (1.8-7.0) K/uL Lymph # (Auto) 0.6 L (1.0-4.3) K/uL [place] # (Auto) 0.4 (0.0-0.8) K/uL Eos # (Auto) 0.0 (0.0-0.7) K/uL Baso # (Auto) 0.0 (0.0-0.2) K/uL Neutrophils % (Manual) 62 (50-75) % Band Neutrophils % 24 H* (0-2) % Lymphocytes % (Manual) 6 L (20-40) % Monocytes % (Manual) 6 (0-10) % Metamyelocytes % 1 H (0-0) % Myelocytes % 1 H (0-0) % Platelet Estimate Normal (NORMAL) PT (9.7-12.2) SECONDS INR APTT (21-34) SECONDS Puncture Site pCO2 (35-45) mm/Hg pO2 (80-100) mm/Hg HCO3 (21-28) mmol/L ABG pH (7.35-7.45) ABG Total CO2 (22-28) mmol/L ABG O2 Saturation (95-98) % ABG Base Excess (-2.0-3.0) mmol/L Eyal Test ABG Potassium (3.6-5.2) mmol/L A-a O2 Difference mm/Hg Respiratory Index Glucose (75-110) mg/dl Lactate (0.7-2.1) mmol/L Liter Flow FiO2 % Crit Value Called To Crit Value Called By Crit Value Read Back Blood Gas Notified Time Sodium 137 (132-148) mmol/L Potassium 4.7 (3.6-5.2) mmol/L Chloride 103 (98-107) mmol/L Carbon Dioxide 16 L (22-30) mmol/L Anion Gap 23 H (10-20) BUN 28 H (9-20) mg/dL Creatinine 1.4 (0.8-1.5) mg/dL Est GFR ( Amer) 59 Est GFR (Non-Af Amer) 49 POC Glucose (mg/dL) 355 H (65-110) mg/dL Random Glucose 302 H (75-110) mg/dL Lactic Acid (0.7-2.1) mmol/L Calcium 8.9 (8.6-10.4) mg/dl Phosphorus (2.5-4.5) mg/dL Magnesium (1.6-2.3) mg/dL Total Bilirubin 1.3 (0.2-1.3) mg/dL AST 48 (17-59) U/L ALT 20 L D (21-72) U/L Alkaline Phosphatase 36 L D (38-126) U/L Total Protein 6.4 (6.3-8.3) g/dL Albumin 3.2 L D (3.5-5.0) g/dL Globulin 3.2 (2.2-3.9) gm/dL Albumin/Globulin Ratio 1.0 (1.0-2.1) Lipase (23-300) U/L Arterial Blood Potassium (3.6-5.2) mmol/L Urine Color (YELLOW) Urine Clarity (Clear) Urine pH (5.0-8.0) Ur Specific [place] (1.003-1.030) Urine Protein (NEGATIVE) mg/dL Urine Glucose (UA) (Normal) mg/dL Urine Ketones (NEGATIVE) mg/dL Urine Blood (NEGATIVE) Urine Nitrate (NEGATIVE) Urine Bilirubin (NEGATIVE) Urine Urobilinogen (0.2-1.0) mg/dL Ur Leukocyte Esterase (Negative) [place]/uL Urine WBC (Auto) (0-5) /hpf Blood Type Antibody Screen 12/22/17 12/22/17 12/22/17 Range/Units 22:37 16:25 16:18 WBC (4.8-10.8) K/uL RBC (4.40-5.90) Mil/uL Hgb (12.0-18.0) g/dL Hct (35.0-51.0) % MCV (80.0-94.0) fL MCH (27.0-31.0) pg MCHC (33.0-37.0) g/dL RDW (11.5-14.5) % Plt Count (130-400) K/uL MPV (7.2-11.7) fL Neut % (Auto) (50.0-75.0) % Lymph % (Auto) (20.0-40.0) % [place] % (Auto) (0.0-10.0) % Eos % (Auto) (0.0-4.0) % Baso % (Auto) (0.0-2.0) % Neut # (Auto) (1.8-7.0) K/uL Lymph # (Auto) (1.0-4.3) K/uL [place] # (Auto) (0.0-0.8) K/uL Eos # (Auto) (0.0-0.7) K/uL Baso # (Auto) (0.0-0.2) K/uL Neutrophils % (Manual) (50-75) % Band Neutrophils % (0-2) % Lymphocytes % (Manual) (20-40) % Monocytes % (Manual) (0-10) % Metamyelocytes % (0-0) % Myelocytes % (0-0) % Platelet Estimate (NORMAL) PT (9.7-12.2) SECONDS INR APTT (21-34) SECONDS Puncture Site Lra pCO2 36 (35-45) mm/Hg pO2 60 L (80-100) mm/Hg HCO3 16.8 L (21-28) mmol/L ABG pH 7.26 L (7.35-7.45) ABG Total CO2 17.3 L (22-28) mmol/L ABG O2 Saturation 93.1 L (95-98) % ABG Base Excess -10.0 L (-2.0-3.0) mmol/L Eyal Test Na ABG Potassium 4.4 (3.6-5.2) mmol/L A-a O2 Difference 109.0 mm/Hg Respiratory Index 1.8 Glucose 366 H (75-110) mg/dl Lactate 4.3 H* (0.7-2.1) mmol/L Liter Flow 3.0 FiO2 30.0 % Crit Value Called To Maria Luisa olericulturist Crit Value Called By Lendl Crit Value Read Back Y Blood Gas Notified Time 2242 Sodium 134.0 (132-148) mmol/L Potassium (3.6-5.2) mmol/L Chloride 102.0 (98-107) mmol/L Carbon Dioxide (22-30) mmol/L Anion Gap (10-20) BUN (9-20) mg/dL Creatinine (0.8-1.5) mg/dL Est GFR ( Amer) Est GFR (Non-Af Amer) POC Glucose (mg/dL) (65-110) mg/dL Random Glucose (75-110) mg/dL Lactic Acid 2.8 H (0.7-2.1) mmol/L Calcium (8.6-10.4) mg/dl Phosphorus (2.5-4.5) mg/dL Magnesium (1.6-2.3) mg/dL Total Bilirubin (0.2-1.3) mg/dL AST (17-59) U/L ALT (21-72) U/L Alkaline Phosphatase (38-126) U/L Total Protein (6.3-8.3) g/dL Albumin (3.5-5.0) g/dL Globulin (2.2-3.9) gm/dL Albumin/Globulin Ratio (1.0-2.1) Lipase (23-300) U/L Arterial Blood Potassium 4.4 (3.6-5.2) mmol/L Urine Color (YELLOW) Urine Clarity (Clear) Urine pH (5.0-8.0) Ur Specific [place] (1.003-1.030) Urine Protein (NEGATIVE) mg/dL Urine Glucose (UA) (Normal) mg/dL Urine Ketones (NEGATIVE) mg/dL Urine Blood (NEGATIVE) Urine Nitrate (NEGATIVE) Urine Bilirubin (NEGATIVE) Urine Urobilinogen (0.2-1.0) mg/dL Ur Leukocyte Esterase (Negative) [place]/uL Urine WBC (Auto) (0-5) /hpf Blood Type O POSITIVE Antibody Screen Negative 12/22/17 12/22/17 12/22/17 Range/Units 16:18 14:39 12:44 WBC (4.8-10.8) K/uL RBC (4.40-5.90) Mil/uL Hgb (12.0-18.0) g/dL Hct (35.0-51.0) % MCV (80.0-94.0) fL MCH (27.0-31.0) pg MCHC (33.0-37.0) g/dL RDW (11.5-14.5) % Plt Count (130-400) K/uL MPV (7.2-11.7) fL Neut % (Auto) (50.0-75.0) % Lymph % (Auto) (20.0-40.0) % [place] % (Auto) (0.0-10.0) % Eos % (Auto) (0.0-4.0) % Baso % (Auto) (0.0-2.0) % Neut # (Auto) (1.8-7.0) K/uL Lymph # (Auto) (1.0-4.3) K/uL [place] # (Auto) (0.0-0.8) K/uL Eos # (Auto) (0.0-0.7) K/uL Baso # (Auto) (0.0-0.2) K/uL Neutrophils % (Manual) (50-75) % Band Neutrophils % (0-2) % Lymphocytes % (Manual) (20-40) % Monocytes % (Manual) (0-10) % Metamyelocytes % (0-0) % Myelocytes % (0-0) % Platelet Estimate (NORMAL) PT 12.5 H (9.7-12.2) SECONDS INR 1.1 APTT 25 (21-34) SECONDS Puncture Site pCO2 (35-45) mm/Hg pO2 (80-100) mm/Hg HCO3 (21-28) mmol/L ABG pH (7.35-7.45) ABG Total CO2 (22-28) mmol/L ABG O2 Saturation (95-98) % ABG Base Excess (-2.0-3.0) mmol/L Eyal Test ABG Potassium (3.6-5.2) mmol/L A-a O2 Difference mm/Hg Respiratory Index Glucose (75-110) mg/dl Lactate (0.7-2.1) mmol/L Liter Flow FiO2 % Crit Value Called To Crit Value Called By Crit Value Read Back Blood Gas Notified Time Sodium 142 (132-148) mmol/L Potassium 4.4 (3.6-5.2) mmol/L Chloride 100 (98-107) mmol/L Carbon Dioxide 18 L (22-30) mmol/L Anion Gap 28 H (10-20) BUN 31 H (9-20) mg/dL Creatinine 1.5 (0.8-1.5) mg/dL Est GFR ( Amer) 55 Est GFR (Non-Af Amer) 45 POC Glucose (mg/dL) (65-110) mg/dL Random Glucose 333 H (75-110) mg/dL Lactic Acid (0.7-2.1) mmol/L Calcium 10.6 H (8.6-10.4) mg/dl Phosphorus (2.5-4.5) mg/dL Magnesium (1.6-2.3) mg/dL Total Bilirubin 0.8 (0.2-1.3) mg/dL AST 26 (17-59) U/L ALT 12 L (21-72) U/L Alkaline Phosphatase 75 (38-126) U/L Total Protein 7.7 (6.3-8.3) g/dL Albumin 4.1 (3.5-5.0) g/dL Globulin 3.5 (2.2-3.9) gm/dL Albumin/Globulin Ratio 1.2 (1.0-2.1) Lipase 180 (23-300) U/L Arterial Blood Potassium (3.6-5.2) mmol/L Urine Color Yellow (YELLOW) Urine Clarity Clear (Clear) Urine pH 5.0 (5.0-8.0) Ur Specific [place] 1.013 (1.003-1.030) Urine Protein Negative (NEGATIVE) mg/dL Urine Glucose (UA) 3+ H (Normal) mg/dL Urine Ketones 1+ H (NEGATIVE) mg/dL Urine Blood Negative (NEGATIVE) Urine Nitrate Negative (NEGATIVE) Urine Bilirubin Negative (NEGATIVE) Urine Urobilinogen Normal (0.2-1.0) mg/dL Ur Leukocyte Esterase Neg (Negative) [place]/uL Urine WBC (Auto) < 1 (0-5) /hpf Blood Type Antibody Screen 12/22/17 12/22/17 Range/Units 12:44 11:45 WBC 9.4 D (4.8-10.8) K/uL RBC 4.14 L (4.40-5.90) Mil/uL Hgb 12.6 (12.0-18.0) g/dL Hct 37.5 (35.0-51.0) % MCV 90.6 (80.0-94.0) fL MCH 30.4 (27.0-31.0) pg MCHC 33.5 (33.0-37.0) g/dL RDW 12.8 (11.5-14.5) % Plt Count 274 (130-400) K/uL MPV 9.5 (7.2-11.7) fL Neut % (Auto) 85.4 H (50.0-75.0) % Lymph % (Auto) 10.4 L (20.0-40.0) % [place] % (Auto) 3.8 (0.0-10.0) % Eos % (Auto) 0.0 (0.0-4.0) % Baso % (Auto) 0.4 (0.0-2.0) % Neut # (Auto) 8.1 H (1.8-7.0) K/uL Lymph # (Auto) 1.0 (1.0-4.3) K/uL [place] # (Auto) 0.4 (0.0-0.8) K/uL Eos # (Auto) 0.0 (0.0-0.7) K/uL Baso # (Auto) 0.0 (0.0-0.2) K/uL Neutrophils % (Manual) (50-75) % Band Neutrophils % (0-2) % Lymphocytes % (Manual) (20-40) % Monocytes % (Manual) (0-10) % Metamyelocytes % (0-0) % Myelocytes % (0-0) % Platelet Estimate (NORMAL) PT (9.7-12.2) SECONDS INR APTT (21-34) SECONDS Puncture Site pCO2 (35-45) mm/Hg pO2 (80-100) mm/Hg HCO3 (21-28) mmol/L ABG pH (7.35-7.45) ABG Total CO2 (22-28) mmol/L ABG O2 Saturation (95-98) % ABG Base Excess (-2.0-3.0) mmol/L Eyal Test ABG Potassium (3.6-5.2) mmol/L A-a O2 Difference mm/Hg Respiratory Index Glucose (75-110) mg/dl Lactate (0.7-2.1) mmol/L Liter Flow FiO2 % Crit Value Called To Crit Value Called By Crit Value Read Back Blood Gas Notified Time Sodium (132-148) mmol/L Potassium (3.6-5.2) mmol/L Chloride (98-107) mmol/L Carbon Dioxide (22-30) mmol/L Anion Gap (10-20) BUN (9-20) mg/dL Creatinine (0.8-1.5) mg/dL Est GFR ( Amer) Est GFR (Non-Af Amer) POC Glucose (mg/dL) 277 H (65-110) mg/dL Random Glucose (75-110) mg/dL Lactic Acid (0.7-2.1) mmol/L Calcium (8.6-10.4) mg/dl Phosphorus (2.5-4.5) mg/dL Magnesium (1.6-2.3) mg/dL Total Bilirubin (0.2-1.3) mg/dL AST (17-59) U/L ALT (21-72) U/L Alkaline Phosphatase (38-126) U/L Total Protein (6.3-8.3) g/dL Albumin (3.5-5.0) g/dL Globulin (2.2-3.9) gm/dL Albumin/Globulin Ratio (1.0-2.1) Lipase (23-300) U/L Arterial Blood Potassium (3.6-5.2) mmol/L Urine Color (YELLOW) Urine Clarity (Clear) Urine pH (5.0-8.0) Ur Specific [place] (1.003-1.030) Urine Protein (NEGATIVE) mg/dL Urine Glucose (UA) (Normal) mg/dL Urine Ketones (NEGATIVE) mg/dL Urine Blood (NEGATIVE) Urine Nitrate (NEGATIVE) Urine Bilirubin (NEGATIVE) Urine Urobilinogen (0.2-1.0) mg/dL Ur Leukocyte Esterase (Negative) [place]/uL Urine WBC (Auto) (0-5) /hpf Blood Type Antibody Screen Laboratory Results - last 24 hr 12/22/17 12/22/17 12/22/17 11:45 12:44 12:44 WBC 9.4 D RBC 4.14 L Hgb 12.6 Hct 37.5 MCV 90.6 MCH 30.4 MCHC 33.5 RDW 12.8 Plt Count 274 MPV 9.5 Neut % (Auto) 85.4 H Lymph % (Auto) 10.4 L [place] % (Auto) 3.8 Eos % (Auto) 0.0 Baso % (Auto) 0.4 Neut # (Auto) 8.1 H Lymph # (Auto) 1.0 [place] # (Auto) 0.4 Eos # (Auto) 0.0 Baso # (Auto) 0.0 Neutrophils % (Manual) Band Neutrophils % Lymphocytes % (Manual) Monocytes % (Manual) Metamyelocytes % Myelocytes % Platelet Estimate PT INR APTT Puncture Site pCO2 pO2 HCO3 ABG pH ABG Total CO2 ABG O2 Saturation ABG Base Excess Eyal Test ABG Potassium A-a O2 Difference Respiratory Index Glucose Lactate Liter Flow FiO2 Crit Value Called To Crit Value Called By Crit Value Read Back Blood Gas Notified Time Sodium 142 Potassium 4.4 Chloride 100 Carbon Dioxide 18 L Anion Gap 28 H BUN 31 H Creatinine 1.5 Est GFR ( Amer) 55 Est GFR (Non-Af Amer) 45 POC Glucose (mg/dL) 277 H Random Glucose 333 H Lactic Acid Calcium 10.6 H Phosphorus Magnesium Total Bilirubin 0.8 AST 26 ALT 12 L Alkaline Phosphatase 75 Total Protein 7.7 Albumin 4.1 Globulin 3.5 Albumin/Globulin Ratio 1.2 Lipase 180 Arterial Blood Potassium Urine Color Urine Clarity Urine pH Ur Specific [place] Urine Protein Urine Glucose (UA) Urine Ketones Urine Blood Urine Nitrate Urine Bilirubin Urine Urobilinogen Ur Leukocyte Esterase Urine WBC (Auto) Blood Type Antibody Screen 12/22/17 12/22/17 12/22/17 14:39 16:18 16:18 WBC RBC Hgb Hct MCV MCH MCHC RDW Plt Count MPV Neut % (Auto) Lymph % (Auto) [place] % (Auto) Eos % (Auto) Baso % (Auto) Neut # (Auto) Lymph # (Auto) [place] # (Auto) Eos # (Auto) Baso # (Auto) Neutrophils % (Manual) Band Neutrophils % Lymphocytes % (Manual) Monocytes % (Manual) Metamyelocytes % Myelocytes % Platelet Estimate PT 12.5 H INR 1.1 APTT 25 Puncture Site pCO2 pO2 HCO3 ABG pH ABG Total CO2 ABG O2 Saturation ABG Base Excess Eyal Test ABG Potassium A-a O2 Difference Respiratory Index Glucose Lactate Liter Flow FiO2 Crit Value Called To Crit Value Called By Crit Value Read Back Blood Gas Notified Time Sodium Potassium Chloride Carbon Dioxide Anion Gap BUN Creatinine Est GFR ( Amer) Est GFR (Non-Af Amer) POC Glucose (mg/dL) Random Glucose Lactic Acid 2.8 H Calcium Phosphorus Magnesium Total Bilirubin AST ALT Alkaline Phosphatase Total Protein Albumin Globulin Albumin/Globulin Ratio Lipase Arterial Blood Potassium Urine Color Yellow Urine Clarity Clear Urine pH 5.0 Ur Specific [place] 1.013 Urine Protein Negative Urine Glucose (UA) 3+ H Urine Ketones 1+ H Urine Blood Negative Urine Nitrate Negative Urine Bilirubin Negative Urine Urobilinogen Normal Ur Leukocyte Esterase Neg Urine WBC (Auto) < 1 Blood Type Antibody Screen 12/22/17 12/22/17 12/22/17 16:25 22:37 23:25 WBC 8.3 RBC 4.18 L Hgb 12.8 Hct 38.5 MCV 92.2 MCH 30.5 MCHC 33.1 RDW 12.9 Plt Count 212 MPV 10.1 Neut % (Auto) 87.1 H Lymph % (Auto) 7.5 L [place] % (Auto) 5.1 Eos % (Auto) 0.0 Baso % (Auto) 0.3 Neut # (Auto) 7.3 H Lymph # (Auto) 0.6 L [place] # (Auto) 0.4 Eos # (Auto) 0.0 Baso # (Auto) 0.0 Neutrophils % (Manual) 62 Band Neutrophils % 24 H* Lymphocytes % (Manual) 6 L Monocytes % (Manual) 6 Metamyelocytes % 1 H Myelocytes % 1 H Platelet Estimate Normal PT INR APTT Puncture Site Lra pCO2 36 pO2 60 L HCO3 16.8 L ABG pH 7.26 L ABG Total CO2 17.3 L ABG O2 Saturation 93.1 L ABG Base Excess -10.0 L Eyal Test Na ABG Potassium 4.4 A-a O2 Difference 109.0 Respiratory Index 1.8 Glucose 366 H Lactate 4.3 H* Liter Flow 3.0 FiO2 30.0 Crit Value Called To Maria Luisa olericulturist Crit Value Called By Harlan Crit Value Read Back Y Blood Gas Notified Time 2242 Sodium 134.0 Potassium Chloride 102.0 Carbon Dioxide Anion Gap BUN Creatinine Est GFR ( Amer) Est GFR (Non-Af Amer) POC Glucose (mg/dL) Random Glucose Lactic Acid Calcium Phosphorus Magnesium Total Bilirubin AST ALT Alkaline Phosphatase Total Protein Albumin Globulin Albumin/Globulin Ratio Lipase Arterial Blood Potassium 4.4 Urine Color Urine Clarity Urine pH Ur Specific [place] Urine Protein Urine Glucose (UA) Urine Ketones Urine Blood Urine Nitrate Urine Bilirubin Urine Urobilinogen Ur Leukocyte Esterase Urine WBC (Auto) Blood Type O POSITIVE Antibody Screen Negative 12/22/17 12/22/17 12/23/17 23:25 23:48 06:07 WBC 10.6 RBC 4.12 L Hgb 12.4 Hct 37.7 MCV 91.4 MCH 30.2 MCHC 33.0 RDW 13.0 Plt Count 212 MPV 9.2 Neut % (Auto) 89.3 H Lymph % (Auto) 6.0 L [place] % (Auto) 4.6 Eos % (Auto) 0.0 Baso % (Auto) 0.1 Neut # (Auto) 9.4 H Lymph # (Auto) 0.6 L [place] # (Auto) 0.5 Eos # (Auto) 0.0 Baso # (Auto) 0.0 Neutrophils % (Manual) Band Neutrophils % Lymphocytes % (Manual) Monocytes % (Manual) Metamyelocytes % Myelocytes % Platelet Estimate PT INR APTT Puncture Site pCO2 pO2 HCO3 ABG pH ABG Total CO2 ABG O2 Saturation ABG Base Excess Eyal Test ABG Potassium A-a O2 Difference Respiratory Index Glucose Lactate Liter Flow FiO2 Crit Value Called To Crit Value Called By Crit Value Read Back Blood Gas Notified Time Sodium 137 Potassium 4.7 Chloride 103 Carbon Dioxide 16 L Anion Gap 23 H BUN 28 H Creatinine 1.4 Est GFR ( Amer) 59 Est GFR (Non-Af Amer) 49 POC Glucose (mg/dL) 355 H Random Glucose 302 H Lactic Acid Calcium 8.9 Phosphorus Magnesium Total Bilirubin 1.3 AST 48 ALT 20 L D Alkaline Phosphatase 36 L D Total Protein 6.4 Albumin 3.2 L D Globulin 3.2 Albumin/Globulin Ratio 1.0 Lipase Arterial Blood Potassium Urine Color Urine Clarity Urine pH Ur Specific [place] Urine Protein Urine Glucose (UA) Urine Ketones Urine Blood Urine Nitrate Urine Bilirubin Urine Urobilinogen Ur Leukocyte Esterase Urine WBC (Auto) Blood Type Antibody Screen 12/23/17 12/23/17 06:07 06:34 WBC RBC Hgb Hct MCV MCH MCHC RDW Plt Count MPV Neut % (Auto) Lymph % (Auto) [place] % (Auto) Eos % (Auto) Baso % (Auto) Neut # (Auto) Lymph # (Auto) [place] # (Auto) Eos # (Auto) Baso # (Auto) Neutrophils % (Manual) Band Neutrophils % Lymphocytes % (Manual) Monocytes % (Manual) Metamyelocytes % Myelocytes % Platelet Estimate PT INR APTT Puncture Site pCO2 pO2 HCO3 ABG pH ABG Total CO2 ABG O2 Saturation ABG Base Excess Eyal Test ABG Potassium A-a O2 Difference Respiratory Index Glucose Lactate Liter Flow FiO2 Crit Value Called To Crit Value Called By Crit Value Read Back Blood Gas Notified Time Sodium 138 Potassium 4.9 Chloride 103 Carbon Dioxide 19 L Anion Gap 21 H BUN 30 H Creatinine 1.5 Est GFR ( Amer) 55 Est GFR (Non-Af Amer) 45 POC Glucose (mg/dL) 302 H Random Glucose 299 H Lactic Acid Calcium 8.7 Phosphorus 3.0 Magnesium 0.7 L* Total Bilirubin 0.8 AST 54 ALT 22 Alkaline Phosphatase 35 L Total Protein 6.0 L Albumin 3.1 L Globulin 3.0 Albumin/Globulin Ratio 1.0 Lipase Arterial Blood Potassium Urine Color Urine Clarity Urine pH Ur Specific [place] Urine Protein Urine Glucose (UA) Urine Ketones Urine Blood Urine Nitrate Urine Bilirubin Urine Urobilinogen Ur Leukocyte Esterase Urine WBC (Auto) Blood Type Antibody Screen EKG/Cardiology Studies: Cardiology / EKG Studies 12/22/17 12:09 EKG [ELECTROCARDIOGRAM] Stat Comment: Mode Of Transportation: BED Reason For Exam: cp Isolation: Contact 12/22/17 15:55 ELECTROCARDIOGRAM Stat Comment: Mode Of Transportation: Reason For Exam: Sepsis Patient Isolation: Contact 12/22/17 22:04 ELECTROCARDIOGRAM Stat Comment: Mode Of Transportation: Reason For Exam: post op Isolation: Contact Fingerstick Blood Sugar Results: 302 Critical Care Progress Note - Nutrition Nutrition: Nutrition Category Date Time Status NPO Diet [DIET] Diets 12/22/17 Dinner Active
[2017-12-23] MEDS ORDERED: Lactated Ringer's 1,000 ML IV SCH (08:15)
--- NOTE | 2017-12-23 09:05 | OP ---
PROCEDURE DATE: 12/22/2017 PREOPERATIVE DIAGNOSIS: Acute abdomen. POSTOPERATIVE DIAGNOSES: 1. Perforated peptic ulcer. 2. Multiple intraabdominal purulent collection. 3. Acute abdomen. PROCEDURES DONE: 1. Exploratory laparotomy. 2. Colin patch repair of peptic perforation. 3. Drainage of intraabdominal multiple collections. 4. ON-Q pain catheter pump placement bilaterally. SURGEON: Fred Villa MD TELEMARKETER SUPERVISOR: Noreen Tejada, PGY-2. Resident TYPE OF ANESTHESIA: General endotracheal tube anesthesia. ESTIMATED BLOOD LOSS: Around 10 mL DRAINS: None. PATHOLOGY: The pus was sent for culture and sensitivity. COMPLICATIONS: None. INTRAOPERATIVE FINDINGS: The patient had peptic perforation on the superior border of the first part of the duodenum and the left side dissection was done to identify any posterior extension of the perforation and kocherization of the duodenum was also done and the patient had multiple purulent abdominal collections that was drained and abdomen was washed out. DESCRIPTION OF PROCEDURE: On intraoperative steps, this is a 77-year-old male who was diagnosed with acute abdomen with significant finding of free air with possible perforated viscus and the patient was consented for exploratory laparotomy, possible bowel resection, possible ostomy, and patient was brought to the OR, placed supine on operating table, after induction of the anesthesia. The Paulson catheter and NG tube was placed and abdomen was prepped and draped in usual sterile fashion. The upper abdominal midline incision was made after incising skin, subcutaneous tissue and fascia. The peritoneal cavity was entered. The patient found to have multiple purulent collections all over the abdomen and the collection was drained and the patient had adhesions of the omentum at the perforation site and the lysis of adhesion was done in order to identify the perforation. The perforation appeared to be in the superior border of first part of the duodenum and now the lesser sac was opened up and the posterior part of the first part of the duodenum was inspected for any possible extension of the perforation from superior border. There was no extension identified in the posterior part of the duodenum and now the kocherization of the duodenum was done to facilitate further treatment. Now 2-0 silk suture was used to close the perforation and Colin patch repair was done with mobilized tongue of omentum and after proper Colin patch repair, the NG tube was placed close to the repaired part of the duodenum. Approximately 5 L of fluid was used to completely wash out the abdominal cavity and 19-Azeri Constantino drain was placed and after proper hemostasis, the abdominal cavity was closed in two layers, the fascia with #1 PDS continuous suture, and interrupted #1 Prolene suture and the bilateral ON-Q pain catheter pump was placed before closing the fascia and it was connected to the pain catheter pump. The skin was approximated with panda and dry sterile dressing was applied. The patient tolerated the procedure well. Count of instrument and gauze was correct. The patient was extubated in OR and sent to the Postanesthesia Care Unit in stable condition. Fred Villa MD
[2017-12-23 09:07] LABS: BANDS 23 % (0-2); BASOPHIL 1 % (0-2); LYMPHOCYTE 7 % (20-40); METAMYELOCYTE 1 % (0-0); MONOCYTE 4 % (0-10); NEUTROPHIL 64 % (50-75); PLATELET ESTIMATE NORMAL (NORMAL); TOTAL CELLS COUNTED 100
--- NOTE | 2017-12-23 11:19 | RAD ---
HISTORY: post op COMPARISON: Comparison is made to 12/22/2017 FINDINGS: LUNGS: Suboptimal poor inspiratory study. Possible mild pulmonary vascular congestion. PLEURA: No significant pleural effusion identified, no pneumothorax apparent. CARDIOVASCULAR: Normal. OSSEOUS STRUCTURES: No significant abnormalities. VISUALIZED UPPER ABDOMEN: The NG tube seen extending to the abdomen. OTHER FINDINGS: None. IMPRESSION: Poor inspiratory effort with possible bibasilar atelectasis and mild pulmonary congestion. Appropriate position of the NG tube.
[2017-12-23 15:26] LABS: BASO % 0.2 % (0.0-2.0); HEMOGLOBIN 11.2 g/dL (12.0-18.0); LYMPH # 0.5 K/uL (1.0-4.3); MEAN CELL VOLUME 90.1 fL (80.0-94.0); MEAN CORPUSCULAR HEMOGLOBIN 30.3 pg (27.0-31.0); MEAN CORPUSCULAR HGB CONC 33.6 g/dL (33.0-37.0); MEAN PLATELET VOLUME 9.4 fL (7.2-11.7); MONO # 0.4 K/uL (0.0-0.8); MONO % 4.2 % (0.0-10.0); NEUT # 8.2 K/uL (1.8-7.0); NEUT % 89.6 % (50.0-75.0); PLATELET COUNT 187 K/uL (130-400); RBC 3.68 Mil/uL (4.40-5.90); RED CELL DISTRIBUTION WIDTH 12.8 % (11.5-14.5); WHITE BLOOD COUNT 9.2 K/uL (4.8-10.8)
[2017-12-23 15:53] LABS: ALBUMIN 2.6 g/dL (3.5-5.0); CALCIUM 8.4 mg/dl (8.6-10.4)
[2017-12-23 16:02] LABS: BANDS 18 % (0-2); LYMPHOCYTE 10 % (20-40); METAMYELOCYTE 2 % (0-0); MONOCYTE 4 % (0-10); NEUTROPHIL 66 % (50-75); PLATELET ESTIMATE NORMAL (NORMAL); TOTAL CELLS COUNTED 100
--- NOTE | 2017-12-23 23:14 | CP.PCM.PN ---
Subjective - Date & Time of Evaluation Date of Evaluation: 12/23/17 Time of Evaluation: 19:00 - Subjective Subjective: Postoperative day one Perforated duodenal ulcer, repair with a Colin patch. Postoperatively patient is currently doing well. Comparing of mild pain. NG tube drainage minimal He is not in any nausea, no vomiting now. Not in any distress. No chest pain, did not have a bowel movement. Currently on maintenance IV fluid On examination: Vital signs stable. Systolic blood pressure is 92, map 70 Chest good air entry bilaterally irregular heart sound. 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 Objective - Vital Signs/Intake and Output Vital Signs (last 24 hours): Temp Pulse Resp BP Pulse Ox 98.5 F 123 H 27 H 101/69 92 L 12/23/17 20:00 12/23/17 23:04 12/23/17 23:04 12/23/17 23:04 12/23/17 23:04 Intake and Output: 12/23/17 12/24/17 18:59 06:59 Intake Total 1475 725 Output Total 485 400 Balance 990 325 - Medications Medications: Current Medications Enoxaparin Sodium (Lovenox) 40 mg SC DAILY [facility] BUPIVACAINE 0.125%/0.9% NACL (Bupivacaine-Ns 0.125% On-Q Liner Assembler) 600 mls @ 4 mls/ hr IJ ONCE ONE Stop: 12/28/17 22:50 Ciprofloxacin (Cipro 400mg/200ml Dsw) 400 mg in 200 mls @ 133 mls/hr IVPB Q12H [facility] PRN Reason: Protocol Last Admin: 12/23/17 16:24 Dose: 133 mls/hr Metronidazole (Flagyl) 500 mg in 100 mls @ 100 mls/hr IVPB Q8H [facility] PRN Reason: Protocol Last Admin: 12/23/17 19:18 Dose: 100 mls/hr Lactated Ringer's (Lactated Ringer's) 1,000 mls @ 125 mls/hr IV .Q8H [facility] Last Admin: 12/23/17 16:23 Dose: 125 mls/hr Insulin Aspart (Novolog) 0 unit SC Q6 [facility] PRN Reason: Protocol Last Admin: 12/23/17 17:41 Dose: 4 unit Ondansetron HCl (Zofran Inj) 4 mg IVP Q6H PRN PRN Reason: Nausea/Vomiting Pantoprazole Sodium (Protonix Inj) 40 mg IVP Q12H [facility] Last Admin: 12/23/17 21:15 Dose: 40 mg - Labs Labs: 12/23/17 15:12 12/23/17 15:12 PT 12.5 SECONDS (9.7-12.2) H 12/22/17 16:18 INR 1.1 12/22/17 16:18 APTT 25 SECONDS (21-34) 12/22/17 16:18
[2017-12-23 23:59] LABS: ABG ALLEN TEST POS; ARTERIAL BLOOD GAS HCO3 22.7 mmol/L (21-28); ARTERIAL BLOOD GAS O2 SAT 93.9 % (95-98); ARTERIAL BLOOD GAS PCO2 27 mm/Hg (35-45); ARTERIAL BLOOD GAS PH 7.47 (7.35-7.45); ARTERIAL BLOOD GAS PO2 57 mm/Hg (80-100); ARTERIAL BLOOD GAS TCO2 20.5 mmol/L (22-28)
[2017-12-24] MEDS: metroNIDAZOLE IV 500 mg/100 ml 500 MG/100 ML BAG IVPB SCH ×3 (02:27→18:06)
[2017-12-24] MEDS: Lactated Ringer's 1,000 ML IV SCH (02:31)
[2017-12-24] MEDS: Ciprofloxacin 400mg/200ml D5W 400 MG/200 ML BAG IVPB SCH ×2 (05:10→16:58)
[2017-12-24] MEDS: (Novolog) Insulin Aspart, Recombinant 100 u/ml 10 ml vial SC SCH ×4 (06:00→18:20)
[2017-12-24 06:24] LABS: BASO % 0.2 % (0.0-2.0); HEMOGLOBIN 11.2 g/dL (12.0-18.0); LYMPH # 0.5 K/uL (1.0-4.3); LYMPH % 4.3 % (20.0-40.0); MEAN CELL VOLUME 89.5 fL (80.0-94.0); MEAN CORPUSCULAR HGB CONC 34.6 g/dL (33.0-37.0); MEAN PLATELET VOLUME 9.4 fL (7.2-11.7); MONO # 0.3 K/uL (0.0-0.8); MONO % 3.1 % (0.0-10.0); NEUT # 9.8 K/uL (1.8-7.0); NEUT % 92.4 % (50.0-75.0); PLATELET COUNT 183 K/uL (130-400); RBC 3.61 Mil/uL (4.40-5.90); RED CELL DISTRIBUTION WIDTH 12.9 % (11.5-14.5); WHITE BLOOD COUNT 10.6 K/uL (4.8-10.8)
[2017-12-24 06:33] LABS: ALB/GLOB RATIO 0.9 (1.0-2.1); ALBUMIN 2.5 g/dL (3.5-5.0); CALCIUM 8.4 mg/dl (8.6-10.4)
--- NOTE | 2017-12-24 07:49 | CP.CCUPN ---
CCU Subjective - Physician Review Events Since Last Encounter (Free Text): 12/24/17 07:47 patient had an episode of respiratory distress last night. Oxygen flow increased. Currently patient is resting, in no distress Cough noted. NG tube percent. Denies any pain in the chest Abdominal discomfort present. No BM Urine output is improving on examination: Vital signs stable Chest bilateral minimal expiratory wheezing Regular heart sound Abdomen tenderness noted Edema negative Labs reviewed Nonspecific Elevation of the creatinine noted X-ray of the chest pending Assessment/recommendation: 77-year-old male with a history of diabetes, hypertension, hypercholesterolemia admitted with a duodenal ulcer, perforation, status post a surgery postoperative day 2 Currently doing well. But possible aspiration cannot be ruled out Currently on a Cipro and Flagyl Will continue Follow-up x-ray CCU Objective - Vital Signs / Intake & Output Vital Signs (Last 4 hours): Vital Signs Temp Pulse Resp BP Pulse Ox 12/24/17 07:34 108 H 28 H 111/69 98 12/24/17 07:04 108 H 26 H 105/71 99 12/24/17 07:00 108 H 29 H 100 12/24/17 06:34 110 H 29 H 109/72 97 12/24/17 06:04 114 H 26 H 116/76 89 L 12/24/17 06:00 111 H 22 105/75 89 L 12/24/17 05:34 115/71 12/24/17 05:33 109 H 28 H 97 12/24/17 05:04 112 H 31 H 115/77 97 12/24/17 05:00 111 H 29 H 97 12/24/17 04:34 110 H 24 119/76 97 12/24/17 04:04 97/70 L 12/24/17 04:00 98.7 F 111 H 28 H 97/70 L 97 Intake and Output (Last 8hrs): Intake & Output 12/23/17 12/24/17 12/24/17 22:59 06:59 14:59 Intake Total 1075 1008 125 Output Total 280 650 0 Balance 795 358 125 Weight 141 lb 0.2 oz Intake: Intake, IV Amount 1075 1008 125 Left Forearm 1075 1008 125 Output: Gastric Amount 100 60 Left Nares 100 60 Drainage 80 140 Right Lower Abdomen 80 140 Urine 100 450 Urethral (Paulson) 100 Urine, Voided 450 Stool 0 0 Other: # Voids Urine, Voided 0 1 - Medications Active Medications: Active Medications Generic Name Dose Route Start Last Admin Trade Name Freq PRN Reason Stop Dose Admin Enoxaparin Sodium 40 mg 12/23/17 10:00 Lovenox SC DAILY [facility] BUPIVACAINE 0.125%/0.9% NACL 600 mls @ 4 mls/hr 12/22/17 16:51 Bupivacaine-Ns 0.125% On-Q Rectangular Tank Cooper IJ 12/28/17 22:50 ONCE ONE Ciprofloxacin 400 mg in 200 mls @ 133 mls/hr 12/23/17 04:30 12/24/17 05:10 Cipro 400mg/200ml Dsw IVPB 133 mls/hr Q12H [facility] Administration Protocol Metronidazole 500 mg in 100 mls @ 100 mls/hr 12/23/17 03:00 12/24/17 02:27 Flagyl IVPB 100 mls/hr Q8H [facility] Administration Protocol Lactated Ringer's 1,000 mls @ 125 mls/hr 12/23/17 15:32 12/24/17 02:31 Lactated Ringer's IV 125 mls/hr .Q8H [facility] Administration Insulin Aspart 0 unit 12/23/17 00:00 12/24/17 06:00 Novolog SC 1 unit Q6 [facility] Administration Protocol Ondansetron HCl 4 mg 12/22/17 16:46 Zofran Inj IVP Q6H PRN Nausea/Vomiting Pantoprazole Sodium 40 mg 12/22/17 22:15 12/23/17 21:15 Protonix Inj IVP 40 mg Q12H [facility] Administration - Patient Studies Lab Studies: Microbiology Studies 12/22/17 16:24 Blood Culture - Preliminary Blood NO GROWTH AFTER 24 HOURS 12/22/17 16:10 Blood Culture - Preliminary Blood NO GROWTH AFTER 24 HOURS 12/22/17 22:35 Gram Stain - Final Peritoneal Fluid Lab Studies 12/24/17 12/24/17 12/24/17 Range/Units 06:41 06:10 06:10 WBC 10.6 (4.8-10.8) K/uL RBC 3.61 L (4.40-5.90) Mil/uL Hgb 11.2 L (12.0-18.0) g/dL Hct 32.3 L (35.0-51.0) % MCV 89.5 (80.0-94.0) fL MCH 31.0 (27.0-31.0) pg MCHC 34.6 (33.0-37.0) g/dL RDW 12.9 (11.5-14.5) % Plt Count 183 (130-400) K/uL MPV 9.4 (7.2-11.7) fL Neut % (Auto) 92.4 H (50.0-75.0) % Lymph % (Auto) 4.3 L (20.0-40.0) % Ector % (Auto) 3.1 (0.0-10.0) % Eos % (Auto) 0.0 (0.0-4.0) % Baso % (Auto) 0.2 (0.0-2.0) % Neut # (Auto) 9.8 H (1.8-7.0) K/uL Lymph # (Auto) 0.5 L (1.0-4.3) K/uL Ector # (Auto) 0.3 (0.0-0.8) K/uL Eos # (Auto) 0.0 (0.0-0.7) K/uL Baso # (Auto) 0.0 (0.0-0.2) K/uL Neutrophils % (Manual) (50-75) % Band Neutrophils % (0-2) % Lymphocytes % (Manual) (20-40) % Monocytes % (Manual) (0-10) % Basophils % (Manual) (0-2) % Metamyelocytes % (0-0) % Platelet Estimate (NORMAL) RBC Morphology Puncture Site pCO2 (35-45) mm/Hg pO2 (80-100) mm/Hg HCO3 (21-28) mmol/L ABG pH (7.35-7.45) ABG Total CO2 (22-28) mmol/L ABG O2 Saturation (95-98) % ABG Base Excess (-2.0-3.0) mmol/L Eyal Test ABG Potassium (3.6-5.2) mmol/L Glucose (75-110) mg/dl Lactate (0.7-2.1) mmol/L Liter Flow Sodium 135 (132-148) mmol/L Potassium 4.2 (3.6-5.2) mmol/L Chloride 102 (98-107) mmol/L Carbon Dioxide 20 L (22-30) mmol/L Anion Gap 17 (10-20) BUN 34 H (9-20) mg/dL Creatinine 1.9 H (0.8-1.5) mg/dL Est GFR ( Amer) 42 Est GFR (Non-Af Amer) 34 POC Glucose (mg/dL) 269 H (65-110) mg/dL Random Glucose 253 H (75-110) mg/dL Calcium 8.4 L (8.6-10.4) mg/dl Phosphorus 2.9 (2.5-4.5) mg/dL Magnesium 1.8 (1.6-2.3) mg/dL Total Bilirubin 0.6 (0.2-1.3) mg/dL AST 62 H (17-59) U/L ALT 33 (21-72) U/L Alkaline Phosphatase 41 (38-126) U/L Total Protein 5.2 L (6.3-8.3) g/dL Albumin 2.5 L (3.5-5.0) g/dL Globulin 2.7 (2.2-3.9) gm/dL Albumin/Globulin Ratio 0.9 L (1.0-2.1) Arterial Blood Potassium (3.6-5.2) mmol/L 12/23/17 12/23/17 12/23/17 Range/Units 23:37 23:19 17:36 WBC (4.8-10.8) K/uL RBC (4.40-5.90) Mil/uL Hgb (12.0-18.0) g/dL Hct (35.0-51.0) % MCV (80.0-94.0) fL MCH (27.0-31.0) pg MCHC (33.0-37.0) g/dL RDW (11.5-14.5) % Plt Count (130-400) K/uL MPV (7.2-11.7) fL Neut % (Auto) (50.0-75.0) % Lymph % (Auto) (20.0-40.0) % Ector % (Auto) (0.0-10.0) % Eos % (Auto) (0.0-4.0) % Baso % (Auto) (0.0-2.0) % Neut # (Auto) (1.8-7.0) K/uL Lymph # (Auto) (1.0-4.3) K/uL Ector # (Auto) (0.0-0.8) K/uL Eos # (Auto) (0.0-0.7) K/uL Baso # (Auto) (0.0-0.2) K/uL Neutrophils % (Manual) (50-75) % Band Neutrophils % (0-2) % Lymphocytes % (Manual) (20-40) % Monocytes % (Manual) (0-10) % Basophils % (Manual) (0-2) % Metamyelocytes % (0-0) % Platelet Estimate (NORMAL) RBC Morphology Puncture Site Lr pCO2 27 L (35-45) mm/Hg pO2 57 L (80-100) mm/Hg HCO3 22.7 (21-28) mmol/L ABG pH 7.47 H (7.35-7.45) ABG Total CO2 20.5 L (22-28) mmol/L ABG O2 Saturation 93.9 L (95-98) % ABG Base Excess -2.6 L (-2.0-3.0) mmol/L Eyal Test Pos ABG Potassium 4.0 (3.6-5.2) mmol/L Glucose 198 H (75-110) mg/dl Lactate 1.4 (0.7-2.1) mmol/L Liter Flow 4.0 Sodium 137.0 (132-148) mmol/L Potassium (3.6-5.2) mmol/L Chloride 106.0 (98-107) mmol/L Carbon Dioxide (22-30) mmol/L Anion Gap (10-20) BUN (9-20) mg/dL Creatinine (0.8-1.5) mg/dL Est GFR ( Amer) Est GFR (Non-Af Amer) POC Glucose (mg/dL) 178 H 279 H (65-110) mg/dL Random Glucose (75-110) mg/dL Calcium (8.6-10.4) mg/dl Phosphorus (2.5-4.5) mg/dL Magnesium (1.6-2.3) mg/dL Total Bilirubin (0.2-1.3) mg/dL AST (17-59) U/L ALT (21-72) U/L Alkaline Phosphatase (38-126) U/L Total Protein (6.3-8.3) g/dL Albumin (3.5-5.0) g/dL Globulin (2.2-3.9) gm/dL Albumin/Globulin Ratio (1.0-2.1) Arterial Blood Potassium 4.0 (3.6-5.2) mmol/L 12/23/17 12/23/17 12/23/17 Range/Units 15:12 15:12 11:48 WBC 9.2 (4.8-10.8) K/uL RBC 3.68 L (4.40-5.90) Mil/uL Hgb 11.2 L (12.0-18.0) g/dL Hct 33.2 L (35.0-51.0) % MCV 90.1 (80.0-94.0) fL MCH 30.3 (27.0-31.0) pg MCHC 33.6 (33.0-37.0) g/dL RDW 12.8 (11.5-14.5) % Plt Count 187 (130-400) K/uL MPV 9.4 (7.2-11.7) fL Neut % (Auto) 89.6 H (50.0-75.0) % Lymph % (Auto) 6.0 L (20.0-40.0) % Ector % (Auto) 4.2 (0.0-10.0) % Eos % (Auto) 0.0 (0.0-4.0) % Baso % (Auto) 0.2 (0.0-2.0) % Neut # (Auto) 8.2 H (1.8-7.0) K/uL Lymph # (Auto) 0.5 L (1.0-4.3) K/uL Ector # (Auto) 0.4 (0.0-0.8) K/uL Eos # (Auto) 0.0 (0.0-0.7) K/uL Baso # (Auto) 0.0 (0.0-0.2) K/uL Neutrophils % (Manual) 66 (50-75) % Band Neutrophils % 18 H* (0-2) % Lymphocytes % (Manual) 10 L (20-40) % Monocytes % (Manual) 4 (0-10) % Basophils % (Manual) (0-2) % Metamyelocytes % 2 H (0-0) % Platelet Estimate Normal (NORMAL) RBC Morphology Normal Puncture Site pCO2 (35-45) mm/Hg pO2 (80-100) mm/Hg HCO3 (21-28) mmol/L ABG pH (7.35-7.45) ABG Total CO2 (22-28) mmol/L ABG O2 Saturation (95-98) % ABG Base Excess (-2.0-3.0) mmol/L Eyal Test ABG Potassium (3.6-5.2) mmol/L Glucose (75-110) mg/dl Lactate (0.7-2.1) mmol/L Liter Flow Sodium 136 (132-148) mmol/L Potassium 4.3 (3.6-5.2) mmol/L Chloride 101 (98-107) mmol/L Carbon Dioxide 19 L (22-30) mmol/L Anion Gap 21 H (10-20) BUN 31 H (9-20) mg/dL Creatinine 1.6 H (0.8-1.5) mg/dL Est GFR ( Amer) 51 Est GFR (Non-Af Amer) 42 POC Glucose (mg/dL) 270 H (65-110) mg/dL Random Glucose 233 H (75-110) mg/dL Calcium 8.4 L (8.6-10.4) mg/dl Phosphorus (2.5-4.5) mg/dL Magnesium 2.7 H (1.6-2.3) mg/dL Total Bilirubin 0.6 (0.2-1.3) mg/dL AST 73 H D (17-59) U/L ALT 28 (21-72) U/L Alkaline Phosphatase 33 L (38-126) U/L Total Protein 5.4 L (6.3-8.3) g/dL Albumin 2.6 L (3.5-5.0) g/dL Globulin 2.8 (2.2-3.9) gm/dL Albumin/Globulin Ratio 1.0 (1.0-2.1) Arterial Blood Potassium (3.6-5.2) mmol/L 12/23/17 Range/Units 06:07 WBC (4.8-10.8) K/uL RBC (4.40-5.90) Mil/uL Hgb (12.0-18.0) g/dL Hct (35.0-51.0) % MCV (80.0-94.0) fL MCH (27.0-31.0) pg MCHC (33.0-37.0) g/dL RDW (11.5-14.5) % Plt Count (130-400) K/uL MPV (7.2-11.7) fL Neut % (Auto) (50.0-75.0) % Lymph % (Auto) (20.0-40.0) % Ector % (Auto) (0.0-10.0) % Eos % (Auto) (0.0-4.0) % Baso % (Auto) (0.0-2.0) % Neut # (Auto) (1.8-7.0) K/uL Lymph # (Auto) (1.0-4.3) K/uL Ector # (Auto) (0.0-0.8) K/uL Eos # (Auto) (0.0-0.7) K/uL Baso # (Auto) (0.0-0.2) K/uL Neutrophils % (Manual) 64 (50-75) % Band Neutrophils % 23 H* (0-2) % Lymphocytes % (Manual) 7 L (20-40) % Monocytes % (Manual) 4 (0-10) % Basophils % (Manual) 1 (0-2) % Metamyelocytes % 1 H (0-0) % Platelet Estimate Normal (NORMAL) RBC Morphology Normal Puncture Site pCO2 (35-45) mm/Hg pO2 (80-100) mm/Hg HCO3 (21-28) mmol/L ABG pH (7.35-7.45) ABG Total CO2 (22-28) mmol/L ABG O2 Saturation (95-98) % ABG Base Excess (-2.0-3.0) mmol/L Eyal Test ABG Potassium (3.6-5.2) mmol/L Glucose (75-110) mg/dl Lactate (0.7-2.1) mmol/L Liter Flow Sodium (132-148) mmol/L Potassium (3.6-5.2) mmol/L Chloride (98-107) mmol/L Carbon Dioxide (22-30) mmol/L Anion Gap (10-20) BUN (9-20) mg/dL Creatinine (0.8-1.5) mg/dL Est GFR ( Amer) Est GFR (Non-Af Amer) POC Glucose (mg/dL) (65-110) mg/dL Random Glucose (75-110) mg/dL Calcium (8.6-10.4) mg/dl Phosphorus (2.5-4.5) mg/dL Magnesium (1.6-2.3) mg/dL Total Bilirubin (0.2-1.3) mg/dL AST (17-59) U/L ALT (21-72) U/L Alkaline Phosphatase (38-126) U/L Total Protein (6.3-8.3) g/dL Albumin (3.5-5.0) g/dL Globulin (2.2-3.9) gm/dL Albumin/Globulin Ratio (1.0-2.1) Arterial Blood Potassium (3.6-5.2) mmol/L Laboratory Results - last 24 hr 12/23/17 12/23/17 12/23/17 06:07 11:48 15:12 WBC 9.2 RBC 3.68 L Hgb 11.2 L Hct 33.2 L MCV 90.1 MCH 30.3 MCHC 33.6 RDW 12.8 Plt Count 187 MPV 9.4 Neut % (Auto) 89.6 H Lymph % (Auto) 6.0 L Ector % (Auto) 4.2 Eos % (Auto) 0.0 Baso % (Auto) 0.2 Neut # (Auto) 8.2 H Lymph # (Auto) 0.5 L Ector # (Auto) 0.4 Eos # (Auto) 0.0 Baso # (Auto) 0.0 Neutrophils % (Manual) 64 66 Band Neutrophils % 23 H* 18 H* Lymphocytes % (Manual) 7 L 10 L Monocytes % (Manual) 4 4 Basophils % (Manual) 1 Metamyelocytes % 1 H 2 H Platelet Estimate Normal Normal RBC Morphology Normal Normal Puncture Site pCO2 pO2 HCO3 ABG pH ABG Total CO2 ABG O2 Saturation ABG Base Excess Eyal Test ABG Potassium Glucose Lactate Liter Flow Sodium Potassium Chloride Carbon Dioxide Anion Gap BUN Creatinine Est GFR ( Amer) Est GFR (Non-Af Amer) POC Glucose (mg/dL) 270 H Random Glucose Calcium Phosphorus Magnesium Total Bilirubin AST ALT Alkaline Phosphatase Total Protein Albumin Globulin Albumin/Globulin Ratio Arterial Blood Potassium 12/23/17 12/23/17 12/23/17 15:12 17:36 23:19 WBC RBC Hgb Hct MCV MCH MCHC RDW Plt Count MPV Neut % (Auto) Lymph % (Auto) Ector % (Auto) Eos % (Auto) Baso % (Auto) Neut # (Auto) Lymph # (Auto) Ector # (Auto) Eos # (Auto) Baso # (Auto) Neutrophils % (Manual) Band Neutrophils % Lymphocytes % (Manual) Monocytes % (Manual) Basophils % (Manual) Metamyelocytes % Platelet Estimate RBC Morphology Puncture Site pCO2 pO2 HCO3 ABG pH ABG Total CO2 ABG O2 Saturation ABG Base Excess Eyal Test ABG Potassium Glucose Lactate Liter Flow Sodium 136 Potassium 4.3 Chloride 101 Carbon Dioxide 19 L Anion Gap 21 H BUN 31 H Creatinine 1.6 H Est GFR ( Amer) 51 Est GFR (Non-Af Amer) 42 POC Glucose (mg/dL) 279 H 178 H Random Glucose 233 H Calcium 8.4 L Phosphorus Magnesium 2.7 H Total Bilirubin 0.6 AST 73 H D ALT 28 Alkaline Phosphatase 33 L Total Protein 5.4 L Albumin 2.6 L Globulin 2.8 Albumin/Globulin Ratio 1.0 Arterial Blood Potassium 12/23/17 12/24/17 12/24/17 23:37 06:10 06:10 WBC 10.6 RBC 3.61 L Hgb 11.2 L Hct 32.3 L MCV 89.5 MCH 31.0 MCHC 34.6 RDW 12.9 Plt Count 183 MPV 9.4 Neut % (Auto) 92.4 H Lymph % (Auto) 4.3 L Ector % (Auto) 3.1 Eos % (Auto) 0.0 Baso % (Auto) 0.2 Neut # (Auto) 9.8 H Lymph # (Auto) 0.5 L Ector # (Auto) 0.3 Eos # (Auto) 0.0 Baso # (Auto) 0.0 Neutrophils % (Manual) Band Neutrophils % Lymphocytes % (Manual) Monocytes % (Manual) Basophils % (Manual) Metamyelocytes % Platelet Estimate RBC Morphology Puncture Site Lr pCO2 27 L pO2 57 L HCO3 22.7 ABG pH 7.47 H ABG Total CO2 20.5 L ABG O2 Saturation 93.9 L ABG Base Excess -2.6 L Eyal Test Pos ABG Potassium 4.0 Glucose 198 H Lactate 1.4 Liter Flow 4.0 Sodium 137.0 135 Potassium 4.2 Chloride 106.0 102 Carbon Dioxide 20 L Anion Gap 17 BUN 34 H Creatinine 1.9 H Est GFR ( Amer) 42 Est GFR (Non-Af Amer) 34 POC Glucose (mg/dL) Random Glucose 253 H Calcium 8.4 L Phosphorus 2.9 Magnesium 1.8 Total Bilirubin 0.6 AST 62 H ALT 33 Alkaline Phosphatase 41 Total Protein 5.2 L Albumin 2.5 L Globulin 2.7 Albumin/Globulin Ratio 0.9 L Arterial Blood Potassium 4.0 12/24/17 06:41 WBC RBC Hgb Hct MCV MCH MCHC RDW Plt Count MPV Neut % (Auto) Lymph % (Auto) Ector % (Auto) Eos % (Auto) Baso % (Auto) Neut # (Auto) Lymph # (Auto) Ector # (Auto) Eos # (Auto) Baso # (Auto) Neutrophils % (Manual) Band Neutrophils % Lymphocytes % (Manual) Monocytes % (Manual) Basophils % (Manual) Metamyelocytes % Platelet Estimate RBC Morphology Puncture Site pCO2 pO2 HCO3 ABG pH ABG Total CO2 ABG O2 Saturation ABG Base Excess Eyal Test ABG Potassium Glucose Lactate Liter Flow Sodium Potassium Chloride Carbon Dioxide Anion Gap BUN Creatinine Est GFR ( Amer) Est GFR (Non-Af Amer) POC Glucose (mg/dL) 269 H Random Glucose Calcium Phosphorus Magnesium Total Bilirubin AST ALT Alkaline Phosphatase Total Protein Albumin Globulin Albumin/Globulin Ratio Arterial Blood Potassium Fingerstick Blood Sugar Results: 269 Critical Care Progress Note - Nutrition Nutrition: Nutrition Category Date Time Status NPO Diet [DIET] Diets 12/22/17 Dinner Active
[2017-12-24 08:32] LABS: METAMYELOCYTE 1 % (0-0)
[2017-12-24 08:35] LABS: BANDS 14 % (0-2); LYMPHOCYTE 6 % (20-40); MONOCYTE 3 % (0-10); NEUTROPHIL 76 % (50-75); TOTAL CELLS COUNTED 100
[2017-12-24 08:36] LABS: PLATELET ESTIMATE NORMAL (NORMAL)
--- NOTE | 2017-12-24 09:14 | RAD ---
HISTORY: aspiration pneumonia COMPARISON: Comparison is made to 12/22/2017 FINDINGS: LUNGS: Interval improvement in the lungs and partial resolving of the previously seen moderate pulmonary vascular congestion since the previous exam. PLEURA: Suspicious for small bilateral pleural effusions. CARDIOVASCULAR: The cardiac silhouette is enlarged P OSSEOUS STRUCTURES: No significant abnormalities. VISUALIZED UPPER ABDOMEN: NG tube seen extending to the abdomen. OTHER FINDINGS: None. IMPRESSION: Interval improvement in the lung and partial resolving of the pulmonary vascular congestion. Otherwise ,no significant interval change P
--- NOTE | 2017-12-24 09:42 | CP.PCM.PN ---
<Risa Hernandez - Last Filed: 12/24/17 09:39> Subjective - Date & Time of Evaluation Date of Evaluation: 12/24/17 Time of Evaluation: 09:39 - Subjective Subjective: Surgery; Dr. Villa Pt seen and examined. No acute overnight events. s/p Ex-lap for perf duodenal ulcer. Pt states he has post-op incisional pain but otherwise denies complaints. Denies N/V, F/C. Objective - Vital Signs/Intake and Output Vital Signs (last 24 hours): Temp Pulse Resp BP Pulse Ox 98.7 F 108 H 28 H 111/68 98 12/24/17 04:00 12/24/17 07:34 12/24/17 07:34 12/24/17 08:41 12/24/17 07:34 Intake and Output: 12/24/17 12/24/17 06:59 18:59 Intake Total 1608 125 Output Total 750 0 Balance 858 125 - Medications Medications: Current Medications Enoxaparin Sodium (Lovenox) 40 mg SC DAILY [facility] BUPIVACAINE 0.125%/0.9% NACL (Bupivacaine-Ns 0.125% On-Q [facility]) 600 mls @ 4 mls/ hr IJ ONCE ONE Stop: 12/28/17 22:50 Ciprofloxacin (Cipro 400mg/200ml Dsw) 400 mg in 200 mls @ 133 mls/hr IVPB Q12H [facility] PRN Reason: Protocol Last Admin: 12/24/17 05:10 Dose: 133 mls/hr Metronidazole (Flagyl) 500 mg in 100 mls @ 100 mls/hr IVPB Q8H [facility] PRN Reason: Protocol Last Admin: 12/24/17 02:27 Dose: 100 mls/hr Acetaminophen (Ofirmev) 100 mls @ 400 mls/hr IV Q6 PRN PRN Reason: Pain, moderate (4-7) Stop: 12/25/17 08:10 Last Admin: 12/24/17 08:26 Dose: 400 mls/hr Insulin Aspart (Novolog) 0 unit SC Q6 [facility] PRN Reason: Protocol Last Admin: 12/24/17 06:00 Dose: 4 unit Ondansetron HCl (Zofran Inj) 4 mg IVP Q6H PRN PRN Reason: Nausea/Vomiting Pantoprazole Sodium (Protonix Inj) 40 mg IVP Q12H [facility] Last Admin: 12/23/17 21:15 Dose: 40 mg - Labs Labs: 12/24/17 06:10 12/24/17 06:10 PT 12.5 SECONDS (9.7-12.2) H 12/22/17 16:18 INR 1.1 12/22/17 16:18 APTT 25 SECONDS (21-34) 12/22/17 16:18 - Constitutional Appears: No Acute Distress - Head Exam Head Exam: ATRAUMATIC, NORMOCEPHALIC - Respiratory Exam Respiratory Exam: NORMAL BREATHING PATTERN - Cardiovascular Exam Cardiovascular Exam: Tachycardia - GI/Abdominal Exam GI & Abdominal Exam: Soft, Tenderness (midline incision, yovany drain in place with serosang output; 220cc/24 hrs. On-Q catheters in place ) - Neurological Exam Neurological Exam: Alert, Awake, Oriented x3 - Skin Skin Exam: Dry, Warm Assessment and Plan - Assessment and Plan (Free Text) Assessment: 77M s/p Ex-Lap with rachelle patch repair for perforated duodenal ulcer; POD#2 Plan: - Keep NGT in place - Monitor yovany and NGT outputs - cont gentle fluid hydration due to elevated creatinine; monitor UOP - pain mangement - encourage out of bed to chair and ambulation with assistance - IS - d/w Dr. Daisy Hernandez, PGY-3 <Fred Villa B - Last Filed: 12/27/17 15:36> Objective - Vital Signs/Intake and Output Vital Signs (last 24 hours): Temp Pulse Resp BP Pulse Ox 98.5 F 79 14 98/62 L 95 12/27/17 12:00 12/27/17 14:01 12/27/17 14:01 12/27/17 14:01 12/27/17 14:01 Intake and Output: 12/27/17 12/27/17 06:59 18:59 Intake Total 1699.2 1179.2 Output Total 730 Balance 969.2 1179.2 - Medications Medications: Current Medications Aspirin (Aspirin Supp) 300 mg OR DAILY [facility] Last Admin: 12/27/17 11:37 Dose: 300 mg Digoxin (Lanoxin) 0.25 mg IVP DAILY@1800 [facility] Metronidazole (Flagyl) 500 mg in 100 mls @ 100 mls/hr IVPB Q8H [facility] PRN Reason: Protocol Last Admin: 12/27/17 11:19 Dose: 100 mls/hr Fluconazole (Diflucan Iv 200 Mg/100 Ml Ns) 100 mls @ 100 mls/hr IVPB DAILY [facility] PRN Reason: Protocol Last Admin: 12/27/17 10:22 Dose: 100 mls/hr Ciprofloxacin (Cipro 200mg/100ml D5w) 100 mls @ 67 mls/hr IVPB Q12H [facility] PRN Reason: Protocol Last Admin: 12/27/17 09:34 Dose: 67 mls/hr BUPIVACAINE 0.125%/0.9% NACL (Bupivacaine-Ns 0.125% On-Q [facility]) 600 mls @ 4 mls/ hr IJ ONCE ONE Stop: 12/31/17 16:54 Last Admin: 12/25/17 19:38 Dose: Not Given Furosemide 100 mg/ Sodium (Chloride) 100 mls @ 5 mls/hr IV .Q20H [facility]; 5 MG/HR PRN Reason: Protocol Last Admin: 12/27/17 04:00 Dose: Not Given Heparin Sodium/Sodium Chloride (Heparin 45609 Units/250ml 1/2 Normal Saline) 25 ,000 units in 250 mls @ 7.947 mls/hr IV .Q24H PRN; Protocol; 12 UNITS/KG/HR PRN Reason: PROTOCOL Last Admin: 12/26/17 22:50 Dose: 12 units/kg/hr, 7.947 mls/hr Vancomycin/Sodium Chloride (Vancomycin 1 Gm/Ns 200 Ml) 1 gm in 200 mls @ 133.333 mls/hr IVPB Q24H [facility] PRN Reason: Protocol Last Admin: 12/27/17 11:37 Dose: 133.333 mls/hr Multivitamins/Vitamin C 10 ml/Chromium/Copper/Manganese/Seleni/Zn 1 ml/ Amino Acids 1,011 mls @ 42 mls/hr IV .Q24H [facility] Stop: 12/27/17 17:59 Last Admin: 12/26/17 18:05 Dose: 42 mls/hr Aztreonam 1 gm/ Sodium (Chloride) 100 mls @ 100 mls/hr IVPB Q12H [facility] PRN Reason: Protocol Last Admin: 12/27/17 13:00 Dose: 100 mls/hr Acetaminophen (Ofirmev) 100 mls @ 400 mls/hr IV Q6 PRN PRN Reason: Pain, moderate (4-7) Stop: 12/28/17 09:34 Multivitamins/Vitamin C 10 ml/Chromium/Copper/Manganese/Zinc 1 ml/ Amino Acids 1,011 mls @ 42 mls/hr IV .Q24H ONE Stop: 12/28/17 17:59 Insulin Aspart (Novolog) 0 unit SC Q6 [facility] PRN Reason: Protocol Metoprolol Tartrate (Lopressor) 2.5 mg IVP Q12H [facility] Last Admin: 12/27/17 11:20 Dose: Not Given Morphine Sulfate (Morphine) 2 mg IVP Q4 PRN PRN Reason: Pain, severe (8-10) Last Admin: 12/27/17 11:19 Dose: 2 mg Ondansetron HCl (Zofran Inj) 4 mg IVP Q6H PRN PRN Reason: Nausea/Vomiting Pantoprazole Sodium (Protonix Inj) 40 mg IVP Q12H [facility] Last Admin: 12/27/17 09:35 Dose: 40 mg - Labs Labs: 12/27/17 06:04 12/27/17 06:04 PT 12.5 SECONDS (9.7-12.2) H 12/22/17 16:18 INR 1.1 12/22/17 16:18 APTT 54 SECONDS (21-34) H 12/27/17 06:04 Attending/Attestation - Attestation I have personally seen and examined this patient.: Yes I have fully participated in the care of the patient.: Yes I have reviewed all pertinent clinical information, including history, physical exam and plan: Yes Notes (Text): Pt was seen and examined at bedside Agree with above note and assessment Pt is improving clinically OOB to walk NG to LIS Plan d.w pt in detail Risk and benefit explained in detail.
[2017-12-24] MEDS: Enoxaparin 40 mg Syringe SC SCH (10:05)
[2017-12-24 12:06] LABS: ABG ALLEN TEST PO; ARTERIAL BLOOD GAS HCO3 23.7 mmol/L (21-28); ARTERIAL BLOOD GAS O2 SAT 96.5 % (95-98); ARTERIAL BLOOD GAS PCO2 30 mm/Hg (35-45); ARTERIAL BLOOD GAS PH 7.46 (7.35-7.45); ARTERIAL BLOOD GAS PO2 70 mm/Hg (80-100); ARTERIAL BLOOD GAS TCO2 22.2 mmol/L (22-28)
--- NOTE | 2017-12-24 13:19 | CT ---
PROCEDURE: CT Chest, Abdomen and Pelvis without intravenous contrast HISTORY: peritonitis COMPARISON: Comparison is made to the previous CT of the abdomen and pelvis dated 12/23/2027 TECHNIQUE: Radiation dose: Total exam DLP = 1113.3 mGy-cm. This CT exam was performed using one or more of the following dose reduction techniques: Automated exposure control, adjustment of the mA and/or kV according to patient size, and/or use of iterative reconstruction technique. FINDINGS: CT CHEST WITHOUT CONTRAST: LUNGS: Almost complete consolidation of both lower lobes due to compression by pleural effusion. Mild pulmonary vascular congestion noted in the upper lobes. MEDIASTINUM: The heart is mildly to moderately enlarged. The thoracic aorta is ectatic and tortuous. The main pulmonary artery is upper normal limit in size. LYMPH NODES: No evidence of significant lymphadenopathy in the chest. PLEURA: There are moderate to large bilateral pleural effusion larger on the left. BONES: Unremarkable. OTHER FINDINGS: None. CT ABDOMEN AND PELVIS: LIVER: No significant interval change in the liver noted since the previous exam. GALLBLADDER AND BILE DUCTS: High density noted in the gallbladder likely represent concentrated contrast from the prior study PANCREAS: No definite evidence of pancreatitis or dilated main pancreatic duct. SPLEEN: Unremarkable. ADRENALS: Unremarkable. No mass. KIDNEYS AND URETERS: Mild diffuse enlargement of the adrenal glands noted. VASCULATURE: Unremarkable. No aortic aneurysm. BOWEL: There is diffuse wall thickening of the large bowel noted. Scattered colonic diverticulosis are seen without evidence of diverticulitis. There is no evidence of high-grade bowel obstruction. APPENDIX: There is no evidence of appendicitis. PERITONEUM: There is fluid collection contains air-fluid level seen anterior to the pancreatic body and in between the stomach and liver measures 7.2 centimeter in the largest transverse diameter and 4.1 centimeter in the largest AP diameter may represent seroma or an early abscess formation. LYMPH NODES: Unremarkable. No enlarged lymph nodes. BLADDER: Mildly to moderately distended urinary bladder. Consider Paulson catheter insertion. REPRODUCTIVE: Enlargement of the prostate. BONES: Severe degenerative changes. [id number] anterior spondylolisthesis of L5 relative to S1 again noted. OTHER FINDINGS: There is a drainage catheter at the right aspect of the abdomen extending to the epigastric region anterior to the stomach and liver. IMPRESSION: Fluid collection noted in between the stomach and liver and anterior to the pancreas contains air-fluid level may represent seroma or hematoma or an early abscess formation. Moderate to large bilateral pleural effusions associated with atelectasis of the bilateral lower lobes. No definite evidence of pneumonia in the upper lobes. Diffuse large bowel wall thickening may represent colitis. Trace free fluid in the abdomen and pelvis.
--- NOTE | 2017-12-24 22:47 | CP.PCM.PN ---
Subjective - Date & Time of Evaluation Date of Evaluation: 12/24/17 Time of Evaluation: 18:00 - Subjective Subjective: Pt seen and examined, is post op improving, NG tube in suction on Iv fluids Objective - Vital Signs/Intake and Output Vital Signs (last 24 hours): Temp Pulse Resp BP Pulse Ox 98.2 F 107 H 25 H 108/68 95 12/24/17 20:00 12/24/17 22:06 12/24/17 22:06 12/24/17 22:06 12/24/17 22:06 Intake and Output: 12/24/17 12/25/17 18:59 06:59 Intake Total 625 100 Output Total 1375 450 Balance -750 -350 - Medications Medications: Current Medications Enoxaparin Sodium (Lovenox) 40 mg SC DAILY [facility] Last Admin: 12/24/17 10:05 Dose: 40 mg BUPIVACAINE 0.125%/0.9% NACL (Bupivacaine-Ns 0.125% On-Q [employer]) 600 mls @ 4 mls/ hr IJ ONCE ONE Stop: 12/28/17 22:50 Ciprofloxacin (Cipro 400mg/200ml Dsw) 400 mg in 200 mls @ 133 mls/hr IVPB Q12H [facility] PRN Reason: Protocol Last Admin: 12/24/17 16:58 Dose: 133 mls/hr Metronidazole (Flagyl) 500 mg in 100 mls @ 100 mls/hr IVPB Q8H [facility] PRN Reason: Protocol Last Admin: 12/24/17 18:06 Dose: 100 mls/hr Acetaminophen (Ofirmev) 100 mls @ 400 mls/hr IV Q6 PRN PRN Reason: Pain, moderate (4-7) Stop: 12/25/17 08:10 Last Admin: 12/24/17 18:22 Dose: 400 mls/hr Insulin Aspart (Novolog) 0 unit SC Q6 [facility] PRN Reason: Protocol Last Admin: 12/24/17 18:20 Dose: 3 unit Ondansetron HCl (Zofran Inj) 4 mg IVP Q6H PRN PRN Reason: Nausea/Vomiting Pantoprazole Sodium (Protonix Inj) 40 mg IVP Q12H [facility] Last Admin: 12/24/17 22:19 Dose: 40 mg - Labs Labs: 12/24/17 06:10 12/24/17 06:10 PT 12.5 SECONDS (9.7-12.2) H 12/22/17 16:18 INR 1.1 12/22/17 16:18 APTT 25 SECONDS (21-34) 12/22/17 16:18 - Constitutional Appears: No Acute Distress - Head Exam Head Exam: ATRAUMATIC, NORMAL INSPECTION, NORMOCEPHALIC - Eye Exam Eye Exam: EOMI, Normal appearance, PERRL Pupil Exam: NORMAL ACCOMODATION, PERRL - Respiratory Exam Respiratory Exam: Clear to Ausculation Bilateral, NORMAL BREATHING PATTERN - Cardiovascular Exam Cardiovascular Exam: REGULAR RHYTHM, +S1, +S2. absent: Murmur - GI/Abdominal Exam GI & Abdominal Exam: Diminished Bowel Sounds Assessment and Plan (1) Perforated abdominal viscus Assessment & Plan: s/p lapromtomy Status: Acute (2) Diabetes mellitus Status: Acute (3) GERD (gastroesophageal reflux disease) Status: Acute
[2017-12-25] MEDS: (Novolog) Insulin Aspart, Recombinant 100 u/ml 10 ml vial SC SCH ×5 (00:10→18:34)
[2017-12-25] MEDS: metroNIDAZOLE IV 500 mg/100 ml 500 MG/100 ML BAG IVPB SCH ×3 (03:03→18:33)
[2017-12-25] MEDS: Ciprofloxacin 400mg/200ml D5W 400 MG/200 ML BAG IVPB SCH (04:12)
[2017-12-25 06:22] LABS: BASO % 0.2 % (0.0-2.0); EOS % 0.1 % (0.0-4.0); HEMOGLOBIN 10.5 g/dL (12.0-18.0); LYMPH # 0.4 K/uL (1.0-4.3); LYMPH % 3.6 % (20.0-40.0); MEAN CELL VOLUME 89.2 fL (80.0-94.0); MEAN CORPUSCULAR HGB CONC 32.5 g/dL (33.0-37.0); MEAN PLATELET VOLUME 9.1 fL (7.2-11.7); MONO # 0.3 K/uL (0.0-0.8); MONO % 2.9 % (0.0-10.0); NEUT # 10.8 K/uL (1.8-7.0); NEUT % 93.2 % (50.0-75.0); PLATELET COUNT 190 K/uL (130-400); RBC 3.63 Mil/uL (4.40-5.90); RED CELL DISTRIBUTION WIDTH 13.4 % (11.5-14.5); WHITE BLOOD COUNT 11.6 K/uL (4.8-10.8)
[2017-12-25 07:01] LABS: ALB/GLOB RATIO 0.9 (1.0-2.1); ALBUMIN 2.4 g/dL (3.5-5.0); CALCIUM 8.4 mg/dl (8.6-10.4); CK-MB 3.27 ng/mL (0.0-3.38); TROPONIN I 8.38 ng/mL (0.00-0.120)
[2017-12-25 08:17] LABS: BANDS 7 % (0-2); LYMPHOCYTE 4 % (20-40); MONOCYTE 2 % (0-10); NEUTROPHIL 86 % (50-75); OVALOCYTES SLIGHT; PLASMACYTES 1 (0-0); PLATELET ESTIMATE NORMAL (NORMAL); POIKILOCYTOSIS SLIGHT; TOTAL CELLS COUNTED 100
[2017-12-25 08:18] LABS: BURR CELLS SLIGHT; TOXIC GRANULATION PRESENT
[2017-12-25] MEDS: Fluconazole IV 200mg/100 ml NS 100 ML IVPB SCH (09:57)
[2017-12-25] MEDS: Metoprolol 1 mg/ml Inj IVP SCH ×2 (10:06→21:44)
[2017-12-25] MEDS: Ciprofloxacin 200mg/100ml D5W 100 ML IVPB SCH ×2 (10:26→21:44)
[2017-12-25] MEDS: Enoxaparin 40 mg Syringe SC SCH (10:45)
--- NOTE | 2017-12-25 10:46 | RAD ---
Chest x-ray single frontal view History: Fluid status. Comparison: 12/24/2017 Findings: Moderate to severe venous congestion with patchy bibasilar airspace opacities and small bilateral pleural effusions. Enlarged ectatic aorta. Right hilar prominence. Cardiomegaly. Degenerative changes in the spine and shoulders. Scoliotic curvature of the spine. Lines and tubes in stable position. Impression: Moderate to severe venous congestion with patchy bibasilar airspace opacities and small bilateral pleural effusions. Enlarged ectatic aorta. Right hilar prominence. Cardiomegaly. Degenerative changes in the spine and shoulders. Scoliotic curvature of the spine. Lines and tubes in stable position.
[2017-12-25] MEDS ORDERED: BUPIVACAINE 0.125%/0.9% NACL 600 ML IJ ONE (10:55)
--- NOTE | 2017-12-25 11:01 | CP.PCM.PN ---
<Albertina Tejada - Last Filed: 12/25/17 18:59> Subjective - Date & Time of Evaluation Date of Evaluation: 12/25/17 Time of Evaluation: 07:20 - Subjective Subjective: General surgery progress note for Dr. Villa-Albertina Tejada, PGY-1 Pt S & E at bedside. Pt reports increased abdominal pain. Denies N & V, F & C. NGT with 150 cc dark brown output. Voiding. Objective - Vital Signs/Intake and Output Vital Signs (last 24 hours): Temp Pulse Resp BP Pulse Ox 98.2 F 102 H 21 118/77 96 12/25/17 08:00 12/25/17 08:06 12/25/17 08:06 12/25/17 09:50 12/25/17 08:06 Intake and Output: 12/25/17 12/25/17 06:59 18:59 Intake Total 500 Output Total 1160 Balance -660 - Medications Medications: Current Medications Enoxaparin Sodium (Lovenox) 40 mg SC DAILY [facility] Last Admin: 12/25/17 10:45 Dose: 40 mg Furosemide (Lasix) 20 mg IVP DAILY [facility] Last Admin: 12/25/17 09:50 Dose: 20 mg BUPIVACAINE 0.125%/0.9% NACL (Bupivacaine-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) 600 mls @ 4 mls/ hr IJ ONCE ONE Stop: 12/28/17 22:50 Metronidazole (Flagyl) 500 mg in 100 mls @ 100 mls/hr IVPB Q8H [facility] PRN Reason: Protocol Last Admin: 12/25/17 03:03 Dose: 100 mls/hr Fluconazole (Diflucan Iv 200 Mg/100 Ml Ns) 100 mls @ 100 mls/hr IVPB DAILY [facility] PRN Reason: Protocol Last Admin: 12/25/17 09:57 Dose: 100 mls/hr Ciprofloxacin (Cipro 200mg/100ml D5w) 100 mls @ 67 mls/hr IVPB Q12H [facility] PRN Reason: Protocol Last Admin: 12/25/17 10:26 Dose: 67 mls/hr BUPIVACAINE 0.125%/0.9% NACL (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-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) 600 mls @ 4 mls/ hr IJ ONCE ONE Stop: 12/31/17 16:54 Acetaminophen 1,000 mg/ (Miscellaneous) 100 mls @ 400 mls/hr IV Q6 PRN PRN Reason: Pain, moderate (4-7) Stop: 12/26/17 10:58 Insulin Aspart (Novolog) 0 unit SC Q6 [facility] PRN Reason: Protocol Last Admin: 12/25/17 06:49 Dose: 4 unit Metoprolol Tartrate (Lopressor) 2.5 mg IVP Q12H [facility] Last Admin: 12/25/17 10:06 Dose: 2.5 mg Morphine Sulfate (Morphine) 2 mg IVP Q4 PRN PRN Reason: Pain, severe (8-10) Ondansetron HCl (Zofran Inj) 4 mg IVP Q6H PRN PRN Reason: Nausea/Vomiting Pantoprazole Sodium (Protonix Inj) 40 mg IVP Q12H [facility] Last Admin: 12/25/17 09:49 Dose: 40 mg - Labs Labs: 12/25/17 06:18 12/25/17 06:18 PT 12.5 SECONDS (9.7-12.2) H 12/22/17 16:18 INR 1.1 12/22/17 16:18 APTT 25 SECONDS (21-34) 12/22/17 16:18 - Constitutional Appears: Non-toxic, In Acute Distress - Head Exam Head Exam: ATRAUMATIC, NORMAL INSPECTION, NORMOCEPHALIC - Eye Exam Eye Exam: EOMI, Normal appearance - ENT Exam ENT Exam: Mucous Membranes Moist, Normal Exam Additional comments: NGT in place - Neck Exam Neck Exam: Full ROM, Normal Inspection - Respiratory Exam Respiratory Exam: NORMAL BREATHING PATTERN - Cardiovascular Exam Cardiovascular Exam: Tachycardia, +S1, +S2 - GI/Abdominal Exam GI & Abdominal Exam: Guarding, Soft, Tenderness (Diffuse, mostly along incision site). absent: Distended, Firm, Rigid Additional comments: Midline abdominal dressing in place- clean/dry/intact. Constantino dressing in place - saturated with sanguinous output - Extremities Exam Extremities Exam: Normal Inspection. absent: Pedal Edema - Neurological Exam Neurological Exam: Alert, Awake, CN II-XII Intact, Oriented x3 - Psychiatric Exam Psychiatric exam: Normal Affect, Normal Mood - Skin Skin Exam: Dry, Intact, Normal Color, Warm Assessment and Plan - Assessment and Plan (Free Text) Assessment: 77M POD #3 s/p ex-lap with Colin patch repair of duodenal ulcer, now with pneumonia Plan: Cont ICU care for pneumonia Pain control- re-ordered On-Q Cont Abx IVF- gentle hydration Monitor NGT output Monitor UOP OOBTC Ambulation with assistance Encourage IS use Continue On-Q Drain dressing changed Ok to start anticoagulation Will DW attending Mallory, PGY-1 <Fred Villa - Last Filed: 12/27/17 15:39> Objective - Vital Signs/Intake and Output Vital Signs (last 24 hours): Temp Pulse Resp BP Pulse Ox 98.5 F 79 14 98/62 L 95 12/27/17 12:00 12/27/17 14:01 12/27/17 14:01 12/27/17 14:01 12/27/17 14:01 Intake and Output: 12/27/17 12/27/17 06:59 18:59 Intake Total 1699.2 1179.2 Output Total 730 Balance 969.2 1179.2 - Medications Medications: Current Medications Aspirin (Aspirin Supp) 300 mg [place] DAILY [facility] Last Admin: 12/27/17 11:37 Dose: 300 mg Digoxin (Lanoxin) 0.25 mg IVP DAILY@1800 [facility] Metronidazole (Flagyl) 500 mg in 100 mls @ 100 mls/hr IVPB Q8H [facility] PRN Reason: Protocol Last Admin: 12/27/17 11:19 Dose: 100 mls/hr Fluconazole (Diflucan Iv 200 Mg/100 Ml Ns) 100 mls @ 100 mls/hr IVPB DAILY [facility] PRN Reason: Protocol Last Admin: 12/27/17 10:22 Dose: 100 mls/hr Ciprofloxacin (Cipro 200mg/100ml D5w) 100 mls @ 67 mls/hr IVPB Q12H [facility] PRN Reason: Protocol Last Admin: 12/27/17 09:34 Dose: 67 mls/hr BUPIVACAINE 0.125%/0.9% NACL (Bupivacaine-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) 600 mls @ 4 mls/ hr IJ ONCE ONE Stop: 12/31/17 16:54 Last Admin: 12/25/17 19:38 Dose: Not Given Furosemide 100 mg/ Sodium (Chloride) 100 mls @ 5 mls/hr IV .Q20H [facility]; 5 MG/HR PRN Reason: Protocol Last Admin: 12/27/17 04:00 Dose: Not Given Heparin Sodium/Sodium Chloride (Heparin 46707 Units/250ml 1/2 Normal Saline) 25 ,000 units in 250 mls @ 7.947 mls/hr IV .Q24H PRN; Protocol; 12 UNITS/KG/HR PRN Reason: PROTOCOL Last Admin: 12/26/17 22:50 Dose: 12 units/kg/hr, 7.947 mls/hr Vancomycin/Sodium Chloride (Vancomycin 1 Gm/Ns 200 Ml) 1 gm in 200 mls @ 133.333 mls/hr IVPB Q24H [facility] PRN Reason: Protocol Last Admin: 12/27/17 11:37 Dose: 133.333 mls/hr Multivitamins/Vitamin C 10 ml/Chromium/Copper/Manganese/Seleni/Zn 1 ml/ Amino Acids 1,011 mls @ 42 mls/hr IV .Q24H [facility] Stop: 12/27/17 17:59 Last Admin: 12/26/17 18:05 Dose: 42 mls/hr Aztreonam 1 gm/ Sodium (Chloride) 100 mls @ 100 mls/hr IVPB Q12H [facility] PRN Reason: Protocol Last Admin: 12/27/17 13:00 Dose: 100 mls/hr Acetaminophen (Ofirmev) 100 mls @ 400 mls/hr IV Q6 PRN PRN Reason: Pain, moderate (4-7) Stop: 12/28/17 09:34 Multivitamins/Vitamin C 10 ml/Chromium/Copper/Manganese/Zinc 1 ml/ Amino Acids 1,011 mls @ 42 mls/hr IV .Q24H ONE Stop: 12/28/17 17:59 Insulin Aspart (Novolog) 0 unit SC Q6 [facility] PRN Reason: Protocol Metoprolol Tartrate (Lopressor) 2.5 mg IVP Q12H [facility] Last Admin: 12/27/17 11:20 Dose: Not Given Morphine Sulfate (Morphine) 2 mg IVP Q4 PRN PRN Reason: Pain, severe (8-10) Last Admin: 12/27/17 11:19 Dose: 2 mg Ondansetron HCl (Zofran Inj) 4 mg IVP Q6H PRN PRN Reason: Nausea/Vomiting Pantoprazole Sodium (Protonix Inj) 40 mg IVP Q12H [facility] Last Admin: 12/27/17 09:35 Dose: 40 mg - Labs Labs: 12/27/17 06:04 12/27/17 06:04 PT 12.5 SECONDS (9.7-12.2) H 12/22/17 16:18 INR 1.1 12/22/17 16:18 APTT 54 SECONDS (21-34) H 12/27/17 06:04 Attending/Attestation - Attestation I have personally seen and examined this patient.: Yes I have fully participated in the care of the patient.: Yes I have reviewed all pertinent clinical information, including history, physical exam and plan: Yes Notes (Text): Pt was seen and examined at bedside Agree with above note and assessment Pt has pneumonin C.W IV antibiotics C.w management as per ICU team Plan d.w pt in detail Risk and benefit explained in detail.
--- NOTE | 2017-12-25 11:14 | CP.CCUPN ---
<Clement Vincent S - Last Filed: 12/25/17 11:03> CCU Subjective - Physician Review Subjective (Free Text): 12/25/17 11:03 Patient seen and examined. Patient complaining of continued abdominal pain and some dyspnea. Denies chest pain at this time. CCU Objective - Vital Signs / Intake & Output Vital Signs (Last 4 hours): Vital Signs Temp Pulse Resp BP Pulse Ox 12/25/17 09:50 118/77 12/25/17 08:06 102 H 21 84/62 L 96 12/25/17 08:00 98.2 F 107 H 20 95 12/25/17 07:06 104 H 18 101/64 97 Intake and Output (Last 8hrs): Intake & Output 12/24/17 12/25/17 12/25/17 22:59 06:59 14:59 Intake Total 400 400 Output Total 1315 410 Balance -915 -10 Weight 146 lb Intake: Intake, IV Amount 400 400 Left Forearm 400 400 Output: Gastric Amount 150 Left Nares 150 Drainage 20 60 Right Lower Abdomen 20 60 Urine 1295 200 Urine, Voided 1295 200 Other: # Voids Urine, Voided 1 - Physical Exam Head: Positive for: Atraumatic, Normocephalic Pupils: Positive for: PERRL Extroacular Muscles: Positive for: EOMI Mouth: Positive for: Moist Mucous Membranes Respiratory/Chest: Positive for: Clear to Auscultation. Negative for: Wheezes, Rales, Rhonchi Cardiovascular: Positive for: Normal S1, S2, Tachycardic Abdomen: Positive for: Tenderness, Guarding, Other (Abdominal dressing clean,dry ,intact) Upper Extremity: Positive for: Normal Inspection Lower Extremity: Positive for: Normal Inspection Neurological: Positive for: GCS=15 Skin: Positive for: Warm, Dry Psychiatric: Positive for: Alert, Oriented x 3 - Medications Active Medications: Active Medications Generic Name Dose Route Start Last Admin Trade Name Freq PRN Reason Stop Dose Admin Enoxaparin Sodium 40 mg 12/23/17 10:00 12/25/17 10:45 Lovenox SC 40 mg DAILY KAROLINE Administration Furosemide 20 mg 12/25/17 10:00 12/25/17 09:50 Lasix IVP 20 mg DAILY KAROLINE Administration BUPIVACAINE 0.125%/0.9% NACL 600 mls @ 4 mls/hr 12/22/17 16:51 Bupivacaine-Ns 0.125% On-Q Venipuncturist IJ 12/28/17 22:50 ONCE ONE Metronidazole 500 mg in 100 mls @ 100 mls/hr 12/23/17 03:00 12/25/17 03:03 Flagyl IVPB 100 mls/hr Q8H KAROLINE Administration Protocol Fluconazole 100 mls @ 100 mls/hr 12/25/17 10:00 12/25/17 09:57 Diflucan Iv 200 Mg/100 Ml Ns IVPB 100 mls/hr DAILY KAROLINE Administration Protocol Ciprofloxacin 100 mls @ 67 mls/hr 12/25/17 09:30 12/25/17 10:26 Cipro 200mg/100ml D5w IVPB 67 mls/hr Q12H KAROLINE Administration Protocol BUPIVACAINE 0.125%/0.9% NACL 600 mls @ 4 mls/hr 12/25/17 10:55 Bupivacaine-Ns 0.125% On-Q Venipuncturist IJ 12/31/17 16:54 ONCE ONE Acetaminophen 1,000 mg/ 100 mls @ 400 mls/hr 12/25/17 10:57 Miscellaneous IV 12/26/17 10:58 Q6 PRN Pain, moderate (4-7) Insulin Aspart 0 unit 12/23/17 00:00 12/25/17 06:49 Novolog SC 4 unit Q6 KAROLINE Administration Protocol Metoprolol Tartrate 2.5 mg 12/25/17 09:30 12/25/17 10:06 Lopressor IVP 2.5 mg Q12H KAROLINE Administration Morphine Sulfate 2 mg 12/25/17 07:43 Morphine IVP Q4 PRN Pain, severe (8-10) Ondansetron HCl 4 mg 12/22/17 16:46 Zofran Inj IVP Q6H PRN Nausea/Vomiting Pantoprazole Sodium 40 mg 12/22/17 22:15 12/25/17 09:49 Protonix Inj IVP 40 mg Q12H KAROLINE Administration - Patient Studies Lab Studies: Microbiology Studies 12/22/17 16:24 Blood Culture - Preliminary Blood NO GROWTH AFTER 48 HOURS 12/22/17 16:10 Blood Culture - Preliminary Blood NO GROWTH AFTER 48 HOURS 12/22/17 Unknown MRSA Culture (Admit) - Final Nose MRSA NOT DETECTED 12/22/17 17:15 Urine Culture - Final Urine,[place] No Growth (<1,000 CFU/ML) 12/22/17 22:35 Gram Stain - Final Peritoneal Fluid Body Fluid Culture - Preliminary NO GROWTH AFTER 24 HOURS Lab Studies 12/25/17 12/25/17 12/25/17 Range/Units 06:18 06:18 06:00 WBC 11.6 H (4.8-10.8) K/uL RBC 3.63 L (4.40-5.90) Mil/uL Hgb 10.5 L (12.0-18.0) g/dL Hct 32.4 L (35.0-51.0) % MCV 89.2 (80.0-94.0) fL MCH 29.0 (27.0-31.0) pg MCHC 32.5 L (33.0-37.0) g/dL RDW 13.4 (11.5-14.5) % Plt Count 190 (130-400) K/uL MPV 9.1 (7.2-11.7) fL Neut % (Auto) 93.2 H (50.0-75.0) % Lymph % (Auto) 3.6 L (20.0-40.0) % [place] % (Auto) 2.9 (0.0-10.0) % Eos % (Auto) 0.1 (0.0-4.0) % Baso % (Auto) 0.2 (0.0-2.0) % Neut # (Auto) 10.8 H (1.8-7.0) K/uL Lymph # (Auto) 0.4 L (1.0-4.3) K/uL [place] # (Auto) 0.3 (0.0-0.8) K/uL Eos # (Auto) 0.0 (0.0-0.7) K/uL Baso # (Auto) 0.0 (0.0-0.2) K/uL Neutrophils % (Manual) 86 H (50-75) % Band Neutrophils % 7 H (0-2) % Lymphocytes % (Manual) 4 L (20-40) % Monocytes % (Manual) 2 (0-10) % Plasma Cell % (Manual) 1 H (0-0) Toxic Granulation Present Platelet Estimate Normal (NORMAL) Poikilocytosis (manual Slight Ovalocytes Slight Serjio Cells Slight Puncture Site pCO2 (35-45) mm/Hg pO2 (80-100) mm/Hg HCO3 (21-28) mmol/L ABG pH (7.35-7.45) ABG Total CO2 (22-28) mmol/L ABG O2 Saturation (95-98) % ABG Base Excess (-2.0-3.0) mmol/L Eyal Test ABG Potassium (3.6-5.2) mmol/L A-a O2 Difference mm/Hg Respiratory Index Sodium 134 (132-148) mmol/l Chloride 99 (98-107) mmol/L Glucose (75-110) mg/dl Lactate (0.7-2.1) mmol/L Liter Flow FiO2 % Potassium 3.4 L (3.6-5.2) mmol/L Carbon Dioxide 23 (22-30) mmol/L Anion Gap 16 (10-20) BUN 37 H (9-20) mg/dL Creatinine 1.9 H (0.8-1.5) mg/dL Est GFR ( Amer) 42 Est GFR (Non-Af Amer) 34 POC Glucose (mg/dL) 274 H (65-110) mg/dL Random Glucose 252 H (75-110) mg/dL Calcium 8.4 L (8.6-10.4) mg/dl Phosphorus 3.7 (2.5-4.5) mg/dL Magnesium 1.7 (1.6-2.3) mg/dL Total Bilirubin 0.5 (0.2-1.3) mg/dL AST 33 (17-59) U/L ALT 27 (21-72) U/L Alkaline Phosphatase 43 (38-126) U/L Total Creatine Kinase 261 H (55-170) U/L CK-MB (Mass) 3.27 (0.0-3.38) ng/mL Troponin I 8.3800 H* (0.00-0.120) ng/mL Total Protein 5.0 L (6.3-8.3) g/dL Albumin 2.4 L (3.5-5.0) g/dL Globulin 2.6 (2.2-3.9) gm/dL Albumin/Globulin Ratio 0.9 L (1.0-2.1) Arterial Blood Potassium (3.6-5.2) mmol/L 12/24/17 12/24/17 12/24/17 Range/Units 23:33 17:29 12:00 WBC (4.8-10.8) K/uL RBC (4.40-5.90) Mil/uL Hgb (12.0-18.0) g/dL Hct (35.0-51.0) % MCV (80.0-94.0) fL MCH (27.0-31.0) pg MCHC (33.0-37.0) g/dL RDW (11.5-14.5) % Plt Count (130-400) K/uL MPV (7.2-11.7) fL Neut % (Auto) (50.0-75.0) % Lymph % (Auto) (20.0-40.0) % [place] % (Auto) (0.0-10.0) % Eos % (Auto) (0.0-4.0) % Baso % (Auto) (0.0-2.0) % Neut # (Auto) (1.8-7.0) K/uL Lymph # (Auto) (1.0-4.3) K/uL [place] # (Auto) (0.0-0.8) K/uL Eos # (Auto) (0.0-0.7) K/uL Baso # (Auto) (0.0-0.2) K/uL Neutrophils % (Manual) (50-75) % Band Neutrophils % (0-2) % Lymphocytes % (Manual) (20-40) % Monocytes % (Manual) (0-10) % Plasma Cell % (Manual) (0-0) Toxic Granulation Platelet Estimate (NORMAL) Poikilocytosis (manual Ovalocytes Serjio Cells Puncture Site Rra pCO2 30 L (35-45) mm/Hg pO2 70 L (80-100) mm/Hg HCO3 23.7 (21-28) mmol/L ABG pH 7.46 H (7.35-7.45) ABG Total CO2 22.2 (22-28) mmol/L ABG O2 Saturation 96.5 (95-98) % ABG Base Excess -1.5 (-2.0-3.0) mmol/L Eyal Test Po ABG Potassium 3.6 (3.6-5.2) mmol/L A-a O2 Difference 142.0 mm/Hg Respiratory Index 2.0 Sodium 136.0 (132-148) mmol/l Chloride 105.0 (98-107) mmol/L Glucose 219 H (75-110) mg/dl Lactate 1.3 (0.7-2.1) mmol/L Liter Flow 4.0 FiO2 35.0 % Potassium (3.6-5.2) mmol/L Carbon Dioxide (22-30) mmol/L Anion Gap (10-20) BUN (9-20) mg/dL Creatinine (0.8-1.5) mg/dL Est GFR ( Amer) Est GFR (Non-Af Amer) POC Glucose (mg/dL) 220 H 214 H (65-110) mg/dL Random Glucose (75-110) mg/dL Calcium (8.6-10.4) mg/dl Phosphorus (2.5-4.5) mg/dL Magnesium (1.6-2.3) mg/dL Total Bilirubin (0.2-1.3) mg/dL AST (17-59) U/L ALT (21-72) U/L Alkaline Phosphatase (38-126) U/L Total Creatine Kinase (55-170) U/L CK-MB (Mass) (0.0-3.38) ng/mL Troponin I (0.00-0.120) ng/mL Total Protein (6.3-8.3) g/dL Albumin (3.5-5.0) g/dL Globulin (2.2-3.9) gm/dL Albumin/Globulin Ratio (1.0-2.1) Arterial Blood Potassium 3.6 (3.6-5.2) mmol/L 12/24/17 Range/Units 11:36 WBC (4.8-10.8) K/uL RBC (4.40-5.90) Mil/uL Hgb (12.0-18.0) g/dL Hct (35.0-51.0) % MCV (80.0-94.0) fL MCH (27.0-31.0) pg MCHC (33.0-37.0) g/dL RDW (11.5-14.5) % Plt Count (130-400) K/uL MPV (7.2-11.7) fL Neut % (Auto) (50.0-75.0) % Lymph % (Auto) (20.0-40.0) % [place] % (Auto) (0.0-10.0) % Eos % (Auto) (0.0-4.0) % Baso % (Auto) (0.0-2.0) % Neut # (Auto) (1.8-7.0) K/uL Lymph # (Auto) (1.0-4.3) K/uL [place] # (Auto) (0.0-0.8) K/uL Eos # (Auto) (0.0-0.7) K/uL Baso # (Auto) (0.0-0.2) K/uL Neutrophils % (Manual) (50-75) % Band Neutrophils % (0-2) % Lymphocytes % (Manual) (20-40) % Monocytes % (Manual) (0-10) % Plasma Cell % (Manual) (0-0) Toxic Granulation Platelet Estimate (NORMAL) Poikilocytosis (manual Ovalocytes [place] Cells Puncture Site pCO2 (35-45) mm/Hg pO2 (80-100) mm/Hg HCO3 (21-28) mmol/L ABG pH (7.35-7.45) ABG Total CO2 (22-28) mmol/L ABG O2 Saturation (95-98) % ABG Base Excess (-2.0-3.0) mmol/L Eyal Test ABG Potassium (3.6-5.2) mmol/L A-a O2 Difference mm/Hg Respiratory Index Sodium (132-148) mmol/l Chloride (98-107) mmol/L Glucose (75-110) mg/dl Lactate (0.7-2.1) mmol/L Liter Flow FiO2 % Potassium (3.6-5.2) mmol/L Carbon Dioxide (22-30) mmol/L Anion Gap (10-20) BUN (9-20) mg/dL Creatinine (0.8-1.5) mg/dL Est GFR ( Amer) Est GFR (Non-Af Amer) POC Glucose (mg/dL) 207 H (65-110) mg/dL Random Glucose (75-110) mg/dL Calcium (8.6-10.4) mg/dl Phosphorus (2.5-4.5) mg/dL Magnesium (1.6-2.3) mg/dL Total Bilirubin (0.2-1.3) mg/dL AST (17-59) U/L ALT (21-72) U/L Alkaline Phosphatase (38-126) U/L Total Creatine Kinase (55-170) U/L CK-MB (Mass) (0.0-3.38) ng/mL Troponin I (0.00-0.120) ng/mL Total Protein (6.3-8.3) g/dL Albumin (3.5-5.0) g/dL Globulin (2.2-3.9) gm/dL Albumin/Globulin Ratio (1.0-2.1) Arterial Blood Potassium (3.6-5.2) mmol/L Laboratory Results - last 24 hr 12/24/17 12/24/17 12/24/17 11:36 12:00 17:29 WBC RBC Hgb Hct MCV MCH MCHC RDW Plt Count MPV Neut % (Auto) Lymph % (Auto) [place] % (Auto) Eos % (Auto) Baso % (Auto) Neut # (Auto) Lymph # (Auto) [place] # (Auto) Eos # (Auto) Baso # (Auto) Neutrophils % (Manual) Band Neutrophils % Lymphocytes % (Manual) Monocytes % (Manual) Plasma Cell % (Manual) Toxic Granulation Platelet Estimate Poikilocytosis (manual Ovalocytes [place] Cells Puncture Site Rra pCO2 30 L pO2 70 L HCO3 23.7 ABG pH 7.46 H ABG Total CO2 22.2 ABG O2 Saturation 96.5 ABG Base Excess -1.5 Eyal Test Po ABG Potassium 3.6 A-a O2 Difference 142.0 Respiratory Index 2.0 Sodium 136.0 Chloride 105.0 Glucose 219 H Lactate 1.3 Liter Flow 4.0 FiO2 35.0 Potassium Carbon Dioxide Anion Gap BUN Creatinine Est GFR ( Amer) Est GFR (Non-Af Amer) POC Glucose (mg/dL) 207 H 214 H Random Glucose Calcium Phosphorus Magnesium Total Bilirubin AST ALT Alkaline Phosphatase Total Creatine Kinase CK-MB (Mass) Troponin I Total Protein Albumin Globulin Albumin/Globulin Ratio Arterial Blood Potassium 3.6 12/24/17 12/25/17 12/25/17 23:33 06:00 06:18 WBC 11.6 H RBC 3.63 L Hgb 10.5 L Hct 32.4 L MCV 89.2 MCH 29.0 MCHC 32.5 L RDW 13.4 Plt Count 190 MPV 9.1 Neut % (Auto) 93.2 H Lymph % (Auto) 3.6 L [place] % (Auto) 2.9 Eos % (Auto) 0.1 Baso % (Auto) 0.2 Neut # (Auto) 10.8 H Lymph # (Auto) 0.4 L [place] # (Auto) 0.3 Eos # (Auto) 0.0 Baso # (Auto) 0.0 Neutrophils % (Manual) 86 H Band Neutrophils % 7 H Lymphocytes % (Manual) 4 L Monocytes % (Manual) 2 Plasma Cell % (Manual) 1 H Toxic Granulation Present Platelet Estimate Normal Poikilocytosis (manual Slight Ovalocytes Slight Serjio Cells Slight Puncture Site pCO2 pO2 HCO3 ABG pH ABG Total CO2 ABG O2 Saturation ABG Base Excess Eyal Test ABG Potassium A-a O2 Difference Respiratory Index Sodium Chloride Glucose Lactate Liter Flow FiO2 Potassium Carbon Dioxide Anion Gap BUN Creatinine Est GFR ( Amer) Est GFR (Non-Af Amer) POC Glucose (mg/dL) 220 H 274 H Random Glucose Calcium Phosphorus Magnesium Total Bilirubin AST ALT Alkaline Phosphatase Total Creatine Kinase CK-MB (Mass) Troponin I Total Protein Albumin Globulin Albumin/Globulin Ratio Arterial Blood Potassium 12/25/17 06:18 WBC RBC Hgb Hct MCV MCH MCHC RDW Plt Count MPV Neut % (Auto) Lymph % (Auto) [place] % (Auto) Eos % (Auto) Baso % (Auto) Neut # (Auto) Lymph # (Auto) [place] # (Auto) Eos # (Auto) Baso # (Auto) Neutrophils % (Manual) Band Neutrophils % Lymphocytes % (Manual) Monocytes % (Manual) Plasma Cell % (Manual) Toxic Granulation Platelet Estimate Poikilocytosis (manual Ovalocytes Serjio Cells Puncture Site pCO2 pO2 HCO3 ABG pH ABG Total CO2 ABG O2 Saturation ABG Base Excess Eyal Test ABG Potassium A-a O2 Difference Respiratory Index Sodium 134 Chloride 99 Glucose Lactate Liter Flow FiO2 Potassium 3.4 L Carbon Dioxide 23 Anion Gap 16 BUN 37 H Creatinine 1.9 H Est GFR ( Amer) 42 Est GFR (Non-Af Amer) 34 POC Glucose (mg/dL) Random Glucose 252 H Calcium 8.4 L Phosphorus 3.7 Magnesium 1.7 Total Bilirubin 0.5 AST 33 ALT 27 Alkaline Phosphatase 43 Total Creatine Kinase 261 H CK-MB (Mass) 3.27 Troponin I 8.3800 H* Total Protein 5.0 L Albumin 2.4 L Globulin 2.6 Albumin/Globulin Ratio 0.9 L Arterial Blood Potassium Fingerstick Blood Sugar Results: 274 Critical Care Progress Note - Nutrition Nutrition: Nutrition Category Date Time Status NPO Diet [DIET] Diets 12/22/17 Dinner Active Assessment/Plan - Assessment and Plan (Free Text) Assessment: This is a 77 year old male with PMHx diabetes, hypertension, hypercholesterolemia admitted with perforated duodenal ulcer status post exploratory laparotomy with Repair of peptic perforation with Colin patch on . POD #3 Neuro Awake, verbal Cardio Elevated troponins Likely CHF exacerbation Cardiology consulted Echo ordered Lopressor 2.5 mg IV Q12H with holding parameters Lasix drip because patient has borderline BP ASA 300 mg PA Pulm Saturating well on nasal cannula Lasix drip to improve congestion GI NPO for now Protonix 40 mg IV Q12 Endocrine Accuchecks Q6H Novolog sliding scale Q6H Infectious Disease Cipro dose lowered to 200 mg IV Q12 due to renal status Flagyl 500 mg IV Q8H Prophylaxis Lovenox 40 mg SC daily--switched to Heparin SC due to renal status Protonix 40 mg IV Q12 Discussed with Dr. Chavira <Ana Chavira - Last Filed: 01/01/18 08:56> CCU Objective - Vital Signs / Intake & Output Vital Signs (Last 4 hours): Vital Signs Pulse Resp BP Pulse Ox 01/01/18 08:08 101 H 22 124/70 98 01/01/18 08:00 105 H 17 100 01/01/18 07:08 91 H 19 119/63 99 01/01/18 07:00 99 H 18 99 01/01/18 06:08 98 H 20 127/82 98 01/01/18 06:00 100 H 18 97 01/01/18 05:50 112 H 18 126/83 98 01/01/18 05:08 84 17 107/65 97 01/01/18 05:00 86 17 98 Intake and Output (Last 8hrs): Intake & Output 12/31/17 01/01/18 01/01/18 22:59 06:59 14:59 Intake Total 420 340 260 Output Total 400 790 Balance 20 -450 260 Weight 140 lb 9.6 oz Intake: Intake, IV Amount 200 100 200 Left Forearm 0 Left Forearm #2 0 Left Proximal Port 200 100 200 Internal Jugular Right Forearm 0 Oral 0 0 Tube Feeding 220 240 60 Output: Drainage 40 Right Lower Abdomen 40 Urine 400 750 Urine, Voided 400 750 - Medications Active Medications: Active Medications Generic Name Dose Route Start Last Admin Trade Name Freq PRN Reason Stop Dose Admin Albuterol/Ipratropium 3 ml 12/28/17 14:00 01/01/18 02:27 Duoneb 3 Mg/0.5 Mg (3 Ml) Ud INH Not Given RQ6 KAROLINE Aspirin 325 mg 12/29/17 10:00 12/31/17 09:59 Aspirin PO 325 mg DAILY KAROLINE Administration Digoxin 0.25 mg 12/27/17 18:00 12/31/17 17:59 Lanoxin IVP 0.25 mg DAILY@1800 KAROLINE Administration Metronidazole 500 mg in 100 mls @ 100 mls/hr 12/23/17 03:00 01/01/18 02:00 Flagyl IVPB 100 mls/hr Q8H KAROLINE Administration Protocol Aztreonam 1 gm/ Sodium 100 mls @ 100 mls/hr 12/27/17 11:00 12/31/17 22:00 Chloride IVPB 100 mls/hr Q12H KAROLINE Administration Protocol Magnesium Sulfate/Dextrose 1 gm in 100 mls @ 100 mls/hr 01/01/18 07:15 08:42 Magnesium Sulfate 1 Gm/100 Ml D5w IVPB 01/01/18 09:14 100 mls/hr Q1H KAROLINE Administration Insulin Detemir 15 unit 12/31/17 10:00 12/31/17 20:59 Levemir SC 15 unit Q12 KAROLINE Administration Insulin Human Regular 0 unit 12/31/17 12:00 01/01/18 08:46 Novolin R SC Not Given Q4H KAROLINE Protocol Metoprolol Tartrate 12.5 mg 12/29/17 11:00 12/31/17 17:59 Lopressor PO 12.5 mg BID KAROLINE Administration Morphine Sulfate 2 mg 12/25/17 07:43 12/29/17 07:34 Morphine IVP 2 mg Q4 PRN Administration Pain, severe (8-10) Ondansetron HCl 4 mg 12/22/17 16:46 Zofran Inj IVP Q6H PRN Nausea/Vomiting Oxycodone HCl 5 mg 12/30/17 19:24 Oxycodone Immediate Release Tab PO Q6 PRN Pain, moderate (4-7) Pantoprazole Sodium 40 mg 12/22/17 22:15 12/31/17 21:14 Protonix Inj IVP 40 mg Q12H KAROLINE Administration Rosuvastatin Calcium 20 mg 12/28/17 22:00 12/31/17 20:59 Crestor PO 20 mg HS KAROLINE Administration - Patient Studies Lab Studies: Microbiology Studies 12/26/17 11:30 Blood Culture - Final Blood NO GROWTH AFTER 5 DAYS Gram Stain - Final TEST NOT PERFORMED 12/26/17 11:00 Blood Culture - Final Blood NO GROWTH AFTER 5 DAYS Gram Stain - Final TEST NOT PERFORMED Lab Studies 01/01/18 01/01/18 01/01/18 Range/Units 08:46 06:01 06:01 WBC 13.5 H (4.8-10.8) K/uL RBC 3.02 L (4.40-5.90) Mil/uL Hgb 8.8 L (12.0-18.0) g/dL Hct 27.8 L (35.0-51.0) % MCV 92.0 (80.0-94.0) fL MCH 29.3 (27.0-31.0) pg MCHC 31.8 L (33.0-37.0) g/dL RDW 13.6 (11.5-14.5) % Plt Count 334 (130-400) K/uL MPV 10.1 (7.2-11.7) fL Neut % (Auto) 86.4 H (50.0-75.0) % Lymph % (Auto) 5.9 L (20.0-40.0) % [place] % (Auto) 5.1 (0.0-10.0) % Eos % (Auto) 2.3 (0.0-4.0) % Baso % (Auto) 0.3 (0.0-2.0) % Neut # (Auto) 11.7 H (1.8-7.0) K/uL Lymph # (Auto) 0.8 L (1.0-4.3) K/uL [place] # (Auto) 0.7 (0.0-0.8) K/uL Eos # (Auto) 0.3 (0.0-0.7) K/uL Baso # (Auto) 0.0 (0.0-0.2) K/uL Neutrophils % (Manual) 94 H (50-75) % Lymphocytes % (Manual) 4 L (20-40) % Monocytes % (Manual) 1 (0-10) % Eosinophils % (Manual) 1 (0-4) % Toxic Granulation Platelet Estimate Normal (NORMAL) Large Platelets Giant Platelets Polychromasia Slight Hypochromasia (manual) Slight Poikilocytosis (manual Anisocytosis (manual) Target Cells Slight Ovalocytes Sodium 150 H (132-148) mmol/L Potassium 3.6 (3.6-5.2) mmol/L Chloride 115 H (98-107) mmol/L Carbon Dioxide 25 (22-30) mmol/L Anion Gap 14 (10-20) BUN 42 H (9-20) mg/dL Creatinine 1.4 (0.8-1.5) mg/dL Est GFR ( Amer) 59 Est GFR (Non-Af Amer) 49 POC Glucose (mg/dL) 134 H (65-110) mg/dL Random Glucose 114 H (75-110) mg/dL Calcium 9.8 (8.6-10.4) mg/dl Phosphorus 2.3 L (2.5-4.5) mg/dL Magnesium 1.5 L (1.6-2.3) mg/dL Total Bilirubin 0.3 (0.2-1.3) mg/dL AST 31 (17-59) U/L ALT 22 (21-72) U/L Alkaline Phosphatase 89 (38-126) U/L Total Protein 5.4 L (6.3-8.3) g/dL Albumin 2.3 L (3.5-5.0) g/dL Globulin 3.1 (2.2-3.9) gm/dL Albumin/Globulin Ratio 0.7 L (1.0-2.1) 01/01/18 01/01/18 12/31/17 Range/Units 04:52 03:15 23:51 WBC (4.8-10.8) K/uL RBC (4.40-5.90) Mil/uL Hgb (12.0-18.0) g/dL Hct (35.0-51.0) % MCV (80.0-94.0) fL MCH (27.0-31.0) pg MCHC (33.0-37.0) g/dL RDW (11.5-14.5) % Plt Count (130-400) K/uL MPV (7.2-11.7) fL Neut % (Auto) (50.0-75.0) % Lymph % (Auto) (20.0-40.0) % [place] % (Auto) (0.0-10.0) % Eos % (Auto) (0.0-4.0) % Baso % (Auto) (0.0-2.0) % Neut # (Auto) (1.8-7.0) K/uL Lymph # (Auto) (1.0-4.3) K/uL [place] # (Auto) (0.0-0.8) K/uL Eos # (Auto) (0.0-0.7) K/uL Baso # (Auto) (0.0-0.2) K/uL Neutrophils % (Manual) (50-75) % Lymphocytes % (Manual) (20-40) % Monocytes % (Manual) (0-10) % Eosinophils % (Manual) (0-4) % Toxic Granulation Platelet Estimate (NORMAL) Large Platelets Giant Platelets Polychromasia Hypochromasia (manual) Poikilocytosis (manual Anisocytosis (manual) Target Cells Ovalocytes Sodium (132-148) mmol/L Potassium (3.6-5.2) mmol/L Chloride (98-107) mmol/L Carbon Dioxide (22-30) mmol/L Anion Gap (10-20) BUN (9-20) mg/dL Creatinine (0.8-1.5) mg/dL Est GFR ( Amer) Est GFR (Non-Af Amer) POC Glucose (mg/dL) 150 H 181 H 197 H (65-110) mg/dL Random Glucose (75-110) mg/dL Calcium (8.6-10.4) mg/dl Phosphorus (2.5-4.5) mg/dL Magnesium (1.6-2.3) mg/dL Total Bilirubin (0.2-1.3) mg/dL AST (17-59) U/L ALT (21-72) U/L Alkaline Phosphatase (38-126) U/L Total Protein (6.3-8.3) g/dL Albumin (3.5-5.0) g/dL Globulin (2.2-3.9) gm/dL Albumin/Globulin Ratio (1.0-2.1) 12/31/17 12/31/17 12/31/17 Range/Units 19:58 16:01 11:51 WBC (4.8-10.8) K/uL RBC (4.40-5.90) Mil/uL Hgb (12.0-18.0) g/dL Hct (35.0-51.0) % MCV (80.0-94.0) fL MCH (27.0-31.0) pg MCHC (33.0-37.0) g/dL RDW (11.5-14.5) % Plt Count (130-400) K/uL MPV (7.2-11.7) fL Neut % (Auto) (50.0-75.0) % Lymph % (Auto) (20.0-40.0) % [place] % (Auto) (0.0-10.0) % Eos % (Auto) (0.0-4.0) % Baso % (Auto) (0.0-2.0) % Neut # (Auto) (1.8-7.0) K/uL Lymph # (Auto) (1.0-4.3) K/uL [place] # (Auto) (0.0-0.8) K/uL Eos # (Auto) (0.0-0.7) K/uL Baso # (Auto) (0.0-0.2) K/uL Neutrophils % (Manual) (50-75) % Lymphocytes % (Manual) (20-40) % Monocytes % (Manual) (0-10) % Eosinophils % (Manual) (0-4) % Toxic Granulation Platelet Estimate (NORMAL) Large Platelets Giant Platelets Polychromasia Hypochromasia (manual) Poikilocytosis (manual Anisocytosis (manual) Target Cells Ovalocytes Sodium (132-148) mmol/L Potassium (3.6-5.2) mmol/L Chloride (98-107) mmol/L Carbon Dioxide (22-30) mmol/L Anion Gap (10-20) BUN (9-20) mg/dL Creatinine (0.8-1.5) mg/dL Est GFR ( Amer) Est GFR (Non-Af Amer) POC Glucose (mg/dL) 198 H 277 H 323 H (65-110) mg/dL Random Glucose (75-110) mg/dL Calcium (8.6-10.4) mg/dl Phosphorus (2.5-4.5) mg/dL Magnesium (1.6-2.3) mg/dL Total Bilirubin (0.2-1.3) mg/dL AST (17-59) U/L ALT (21-72) U/L Alkaline Phosphatase (38-126) U/L Total Protein (6.3-8.3) g/dL Albumin (3.5-5.0) g/dL Globulin (2.2-3.9) gm/dL Albumin/Globulin Ratio (1.0-2.1) 12/31/17 12/31/17 Range/Units 10:42 06:17 WBC (4.8-10.8) K/uL RBC (4.40-5.90) Mil/uL Hgb (12.0-18.0) g/dL Hct (35.0-51.0) % MCV (80.0-94.0) fL MCH (27.0-31.0) pg MCHC (33.0-37.0) g/dL RDW (11.5-14.5) % Plt Count (130-400) K/uL MPV (7.2-11.7) fL Neut % (Auto) (50.0-75.0) % Lymph % (Auto) (20.0-40.0) % [place] % (Auto) (0.0-10.0) % Eos % (Auto) (0.0-4.0) % Baso % (Auto) (0.0-2.0) % Neut # (Auto) (1.8-7.0) K/uL Lymph # (Auto) (1.0-4.3) K/uL [place] # (Auto) (0.0-0.8) K/uL Eos # (Auto) (0.0-0.7) K/uL Baso # (Auto) (0.0-0.2) K/uL Neutrophils % (Manual) 86 H (50-75) % Lymphocytes % (Manual) 4 L (20-40) % Monocytes % (Manual) 8 (0-10) % Eosinophils % (Manual) 2 (0-4) % Toxic Granulation Present Platelet Estimate Normal (NORMAL) Large Platelets Present Giant Platelets Present Polychromasia Slight Hypochromasia (manual) Slight Poikilocytosis (manual Slight Anisocytosis (manual) Slight Target Cells Ovalocytes Slight Sodium (132-148) mmol/L Potassium (3.6-5.2) mmol/L Chloride (98-107) mmol/L Carbon Dioxide (22-30) mmol/L Anion Gap (10-20) BUN (9-20) mg/dL Creatinine (0.8-1.5) mg/dL Est GFR ( Amer) Est GFR (Non-Af Amer) POC Glucose (mg/dL) 346 H (65-110) mg/dL Random Glucose (75-110) mg/dL Calcium (8.6-10.4) mg/dl Phosphorus (2.5-4.5) mg/dL Magnesium (1.6-2.3) mg/dL Total Bilirubin (0.2-1.3) mg/dL AST (17-59) U/L ALT (21-72) U/L Alkaline Phosphatase (38-126) U/L Total Protein (6.3-8.3) g/dL Albumin (3.5-5.0) g/dL Globulin (2.2-3.9) gm/dL Albumin/Globulin Ratio (1.0-2.1) Laboratory Results - last 24 hr 12/31/17 12/31/17 12/31/17 06:17 10:42 11:51 WBC RBC Hgb Hct MCV MCH MCHC RDW Plt Count MPV Neut % (Auto) Lymph % (Auto) [place] % (Auto) Eos % (Auto) Baso % (Auto) Neut # (Auto) Lymph # (Auto) [place] # (Auto) Eos # (Auto) Baso # (Auto) Neutrophils % (Manual) 86 H Lymphocytes % (Manual) 4 L Monocytes % (Manual) 8 Eosinophils % (Manual) 2 Toxic Granulation Present Platelet Estimate Normal Large Platelets Present Giant Platelets Present Polychromasia Slight Hypochromasia (manual) Slight Poikilocytosis (manual Slight Anisocytosis (manual) Slight Target Cells Ovalocytes Slight Sodium Potassium Chloride Carbon Dioxide Anion Gap BUN Creatinine Est GFR ( Amer) Est GFR (Non-Af Amer) POC Glucose (mg/dL) 346 H 323 H Random Glucose Calcium Phosphorus Magnesium Total Bilirubin AST ALT Alkaline Phosphatase Total Protein Albumin Globulin Albumin/Globulin Ratio 12/31/17 12/31/17 12/31/17 16:01 19:58 23:51 WBC RBC Hgb Hct MCV MCH MCHC RDW Plt Count MPV Neut % (Auto) Lymph % (Auto) [place] % (Auto) Eos % (Auto) Baso % (Auto) Neut # (Auto) Lymph # (Auto) [place] # (Auto) Eos # (Auto) Baso # (Auto) Neutrophils % (Manual) Lymphocytes % (Manual) Monocytes % (Manual) Eosinophils % (Manual) Toxic Granulation Platelet Estimate Large Platelets Giant Platelets Polychromasia Hypochromasia (manual) Poikilocytosis (manual Anisocytosis (manual) Target Cells Ovalocytes Sodium Potassium Chloride Carbon Dioxide Anion Gap BUN Creatinine Est GFR ( Amer) Est GFR (Non-Af Amer) POC Glucose (mg/dL) 277 H 198 H 197 H Random Glucose Calcium Phosphorus Magnesium Total Bilirubin AST ALT Alkaline Phosphatase Total Protein Albumin Globulin Albumin/Globulin Ratio 01/01/18 01/01/18 01/01/18 03:15 04:52 06:01 WBC 13.5 H RBC 3.02 L Hgb 8.8 L Hct 27.8 L MCV 92.0 MCH 29.3 MCHC 31.8 L RDW 13.6 Plt Count 334 MPV 10.1 Neut % (Auto) 86.4 H Lymph % (Auto) 5.9 L [place] % (Auto) 5.1 Eos % (Auto) 2.3 Baso % (Auto) 0.3 Neut # (Auto) 11.7 H Lymph # (Auto) 0.8 L [place] # (Auto) 0.7 Eos # (Auto) 0.3 Baso # (Auto) 0.0 Neutrophils % (Manual) 94 H Lymphocytes % (Manual) 4 L Monocytes % (Manual) 1 Eosinophils % (Manual) 1 Toxic Granulation Platelet Estimate Normal Large Platelets Giant Platelets Polychromasia Slight Hypochromasia (manual) Slight Poikilocytosis (manual Anisocytosis (manual) Target Cells Slight Ovalocytes Sodium Potassium Chloride Carbon Dioxide Anion Gap BUN Creatinine Est GFR ( Amer) Est GFR (Non-Af Amer) POC Glucose (mg/dL) 181 H 150 H Random Glucose Calcium Phosphorus Magnesium Total Bilirubin AST ALT Alkaline Phosphatase Total Protein Albumin Globulin Albumin/Globulin Ratio 01/01/18 01/01/18 06:01 08:46 WBC RBC Hgb Hct MCV MCH MCHC RDW Plt Count MPV Neut % (Auto) Lymph % (Auto) [place] % (Auto) Eos % (Auto) Baso % (Auto) Neut # (Auto) Lymph # (Auto) [place] # (Auto) Eos # (Auto) Baso # (Auto) Neutrophils % (Manual) Lymphocytes % (Manual) Monocytes % (Manual) Eosinophils % (Manual) Toxic Granulation Platelet Estimate Large Platelets Giant Platelets Polychromasia Hypochromasia (manual) Poikilocytosis (manual Anisocytosis (manual) Target Cells Ovalocytes Sodium 150 H Potassium 3.6 Chloride 115 H Carbon Dioxide 25 Anion Gap 14 BUN 42 H Creatinine 1.4 Est GFR ( Amer) 59 Est GFR (Non-Af Amer) 49 POC Glucose (mg/dL) 134 H Random Glucose 114 H Calcium 9.8 Phosphorus 2.3 L Magnesium 1.5 L Total Bilirubin 0.3 AST 31 ALT 22 Alkaline Phosphatase 89 Total Protein 5.4 L Albumin 2.3 L Globulin 3.1 Albumin/Globulin Ratio 0.7 L Critical Care Progress Note - Nutrition Nutrition: Nutrition Category Date Time Status Liquid Diet [DIET] Diets 12/27/17 Lunch Active Attending/Attestation - Attestation I have personally seen and examined this patient.: Yes I have fully participated in the care of the patient.: Yes I have reviewed all pertinent clinical information: Yes
[2017-12-25] MEDS: Furosemide 100 MG in Sodium Chloride 0.9% 90 ML IV SCH (12:00)
[2017-12-25] MEDS ORDERED: Heparin25000 units/250ml 1/2NS 25,000 UNITS/250 ML BAG IV PRN (19:01)
[2017-12-25] MEDS: Morphine 4 MG/ML VIAL IVP PRN (19:55)
[2017-12-25 20:06] LABS: CK-MB 1.88 ng/mL (0.0-3.38); TROPONIN I 5.52 ng/mL (0.00-0.120)
--- NOTE | 2017-12-25 20:35 | CARD ---
APPROVED REPORT EKG Measurement Heart [id number] <Conclusion> Sinus rhythm with premature atrial complexes Low voltage QRS Left anterior fascicular block Abnormal ECG
--- NOTE | 2017-12-25 20:43 | CARD ---
APPROVED REPORT EKG Measurement Heart [id number] <Conclusion> Normal sinus rhythm Left axis deviation Abnormal ECG
--- NOTE | 2017-12-25 22:22 | CP.PCM.CON ---
History of Present Illness - History of Present Illness History of Present Illness: Patient seen and evaluated Denies chest pain and dyspnea s/p Abdominal surgery Review Of Systems Constitutional: Negative for: Fever, Chills Gastrointestinal: Positive for: Nausea, Vomiting, Abdominal Pain. Negative for : Diarrhea Genitourinary: Negative for: Dysuria, Hematuria Skin: Negative for: Rash Physical Exam - Physical Exam Appears: Non-toxic, No Acute Distress Skin: Warm, Dry, No Rash, Jaundice Head: Atraumatic, Normacephalic Oral Mucosa: Moist Neck: Normal ROM, Supple Cardiovascular: Rhythm Regular Respiratory: Normal Breath Sounds, No Rales, No Rhonchi, No Wheezing Gastrointestinal/Abdominal: Soft, Tenderness (Epigastric), No Guarding, No Rebound Back: No CVA Tenderness Extremity: Normal ROM, Capillary Refill (<2 seconds) Neurological/Psych: Oriented x3, Normal Speech Past Patient History - Infectious Disease Hx of Infectious Diseases: None - Past Medical History & Family History Past Medical History?: Yes - Past Social History Smoking Status: Never Smoked - CARDIAC Hx Hypercholesterolemia: Yes Hx Hypertension: Yes - PULMONARY Hx Respiratory Disorders: No - NEUROLOGICAL Hx Neurological Disorder: Yes Hx Syncope: Yes - HEENT Hx HEENT Problems: No - RENAL Hx Chronic Kidney Disease: No - ENDOCRINE/METABOLIC Hx Diabetes Mellitus Type 2: Yes - HEMATOLOGICAL/ONCOLOGICAL Hx Blood Disorders: No - INTEGUMENTARY Hx Dermatological Problems: No - MUSCULOSKELETAL/RHEUMATOLOGICAL Hx Arthritis: Yes (L TKR) - GASTROINTESTINAL Hx Gastrointestinal Disorders: Yes Hx Gastroesophageal Reflux: Yes - GENITOURINARY/GYNECOLOGICAL Hx Genitourinary Disorders: No - PSYCHIATRIC Hx Substance Use: No - SURGICAL HISTORY Hx Surgeries: Yes Other/Comment: left knee replacement, and left nerve repair, left and right hand nerve repair - ANESTHESIA Hx Anesthesia: Yes Hx Anesthesia Reactions: No Hx Malignant Hyperthermia: No Has any member of the family had a problem w/ anesthesia?: No Meds Allergies/Adverse Reactions: Allergies Allergy/AdvReac Type Severity Reaction Status Date / Time Penicillins Allergy Mild Verified 12/22/17 11:50 - Medications Medications: Current Medications Aspirin (Aspirin Supp) 300 mg [place] DAILY [facility] Last Admin: 12/25/17 12:38 Dose: 300 mg Metronidazole (Flagyl) 500 mg in 100 mls @ 100 mls/hr IVPB Q8H [facility] PRN Reason: Protocol Last Admin: 12/25/17 18:33 Dose: 100 mls/hr Fluconazole (Diflucan Iv 200 Mg/100 Ml Ns) 100 mls @ 100 mls/hr IVPB DAILY [facility] PRN Reason: Protocol Last Admin: 12/25/17 09:57 Dose: 100 mls/hr Ciprofloxacin (Cipro 200mg/100ml D5w) 100 mls @ 67 mls/hr IVPB Q12H [facility] PRN Reason: Protocol Last Admin: 12/25/17 21:44 Dose: 67 mls/hr BUPIVACAINE 0.125%/0.9% NACL (Bupivacaine-Ns 0.125% On-Q Mining Speculator) 600 mls @ 4 mls/ hr IJ ONCE ONE Stop: 12/31/17 16:54 Last Admin: 12/25/17 19:38 Dose: Not Given Acetaminophen (Ofirmev) 100 mls @ 400 mls/hr IV Q6 PRN PRN Reason: Pain, moderate (4-7) Stop: 12/26/17 10:58 Last Admin: 12/25/17 12:34 Dose: 400 mls/hr Furosemide 100 mg/ Sodium (Chloride) 100 mls @ 5 mls/hr IV .Q20H [facility]; 5 MG/HR PRN Reason: Protocol Last Admin: 12/25/17 12:00 Dose: 5 mls/hr Heparin Sodium/Sodium Chloride (Heparin 53350 Units/250ml 1/2 Normal Saline) 25 ,000 units in 250 mls @ 6.622 mls/hr IV .Q24H PRN; Protocol; 10 UNITS/KG/HR PRN Reason: PROTOCOL Last Admin: 12/25/17 19:43 Dose: 10 units/kg/hr, 6.622 mls/hr Insulin Aspart (Novolog) 0 unit SC Q6 [facility] PRN Reason: Protocol Last Admin: 12/25/17 18:34 Dose: 3 unit Metoprolol Tartrate (Lopressor) 2.5 mg IVP Q12H [facility] Last Admin: 12/25/17 21:44 Dose: 2.5 mg Morphine Sulfate (Morphine) 2 mg IVP Q4 PRN PRN Reason: Pain, severe (8-10) Last Admin: 12/25/17 19:55 Dose: 2 mg Ondansetron HCl (Zofran Inj) 4 mg IVP Q6H PRN PRN Reason: Nausea/Vomiting Pantoprazole Sodium (Protonix Inj) 40 mg IVP Q12H [facility] Last Admin: 12/25/17 21:43 Dose: 40 mg Results - Vital Signs Recent Vital Signs: Last Vital Signs Temp 98.2 F 12/25/17 18:30 Pulse 98 H 12/25/17 20:06 Resp 20 12/25/17 20:06 BP 101/66 12/25/17 20:06 Pulse Ox 94 L 12/25/17 20:06 - Labs Result Diagrams: 12/25/17 06:18 12/25/17 06:18 Labs: Laboratory Results - last 24 hr 12/24/17 12/25/17 12/25/17 23:33 06:00 06:18 WBC 11.6 H RBC 3.63 L Hgb 10.5 L Hct 32.4 L MCV 89.2 MCH 29.0 MCHC 32.5 L RDW 13.4 Plt Count 190 MPV 9.1 Neut % (Auto) 93.2 H Lymph % (Auto) 3.6 L [place] % (Auto) 2.9 Eos % (Auto) 0.1 Baso % (Auto) 0.2 Neut # (Auto) 10.8 H Lymph # (Auto) 0.4 L [place] # (Auto) 0.3 Eos # (Auto) 0.0 Baso # (Auto) 0.0 Neutrophils % (Manual) 86 H Band Neutrophils % 7 H Lymphocytes % (Manual) 4 L Monocytes % (Manual) 2 Plasma Cell % (Manual) 1 H Toxic Granulation Present Platelet Estimate Normal Poikilocytosis (manual Slight Ovalocytes Slight Serjio Cells Slight APTT Sodium Potassium Chloride Carbon Dioxide Anion Gap BUN Creatinine Est GFR ( Amer) Est GFR (Non-Af Amer) POC Glucose (mg/dL) 220 H 274 H Random Glucose Calcium Phosphorus Magnesium Total Bilirubin AST ALT Alkaline Phosphatase Total Creatine Kinase CK-MB (Mass) Troponin I Total Protein Albumin Globulin Albumin/Globulin Ratio 12/25/17 12/25/17 12/25/17 06:18 12:01 17:46 WBC RBC Hgb Hct MCV MCH MCHC RDW Plt Count MPV Neut % (Auto) Lymph % (Auto) [place] % (Auto) Eos % (Auto) Baso % (Auto) Neut # (Auto) Lymph # (Auto) [place] # (Auto) Eos # (Auto) Baso # (Auto) Neutrophils % (Manual) Band Neutrophils % Lymphocytes % (Manual) Monocytes % (Manual) Plasma Cell % (Manual) Toxic Granulation Platelet Estimate Poikilocytosis (manual Ovalocytes Serjio Cells APTT Sodium 134 Potassium 3.4 L Chloride 99 Carbon Dioxide 23 Anion Gap 16 BUN 37 H Creatinine 1.9 H Est GFR ( Amer) 42 Est GFR (Non-Af Amer) 34 POC Glucose (mg/dL) 219 H 211 H Random Glucose 252 H Calcium 8.4 L Phosphorus 3.7 Magnesium 1.7 Total Bilirubin 0.5 AST 33 ALT 27 Alkaline Phosphatase 43 Total Creatine Kinase 261 H CK-MB (Mass) 3.27 Troponin I 8.3800 H* Total Protein 5.0 L Albumin 2.4 L Globulin 2.6 Albumin/Globulin Ratio 0.9 L 18 12/25/17 19:30 19:30 WBC RBC Hgb Hct MCV MCH MCHC RDW Plt Count MPV Neut % (Auto) Lymph % (Auto) [place] % (Auto) Eos % (Auto) Baso % (Auto) Neut # (Auto) Lymph # (Auto) [place] # (Auto) Eos # (Auto) Baso # (Auto) Neutrophils % (Manual) Band Neutrophils % Lymphocytes % (Manual) Monocytes % (Manual) Plasma Cell % (Manual) Toxic Granulation Platelet Estimate Poikilocytosis (manual Ovalocytes Serjio Cells APTT 34 Sodium Potassium Chloride Carbon Dioxide Anion Gap BUN Creatinine Est GFR ( Amer) Est GFR (Non-Af Amer) POC Glucose (mg/dL) Random Glucose Calcium Phosphorus Magnesium Total Bilirubin AST ALT Alkaline Phosphatase Total Creatine Kinase 153 CK-MB (Mass) 1.88 Troponin I 5.5200 H* Total Protein Albumin Globulin Albumin/Globulin Ratio Assessment & Plan - Assessment and Plan (Free Text) Assessment: This is a 77 year old male with PMHx diabetes, hypertension, hypercholesterolemia admitted with perforated duodenal ulcer status post exploratory laparotomy with Repair of peptic perforation with Colin patch on . POD #3 Neuro Awake, verbal Cardio Elevated troponins/Non ST elevation SC CHF exacerbation Echo pending Lopressor 2.5 mg IV Q12H with holding parameters Lasix drip because patient has borderline BP ASA 300 mg [place] Pulm Saturating well on nasal cannula Lasix drip to improve congestion GI NPO for now Protonix 40 mg IV Q12 Endocrine Accuchecks Q6H Novolog sliding scale Q6H Infectious Disease Cipro dose lowered to 200 mg IV Q12 due to renal status Flagyl 500 mg IV Q8H Prophylaxis Lovenox 40 mg SC daily--switched to Heparin SC due to renal status Protonix 40 mg IV Q12 Recommend IV Heparin with ACLS protocol
--- NOTE | 2017-12-25 22:58 | CP.PCM.PN ---
Subjective - Date & Time of Evaluation Date of Evaluation: 12/25/17 Time of Evaluation: 19:35 - Subjective Subjective: Pt is seen and examined, taycardic with positove troponons, acute non stemi for heparin Objective - Vital Signs/Intake and Output Vital Signs (last 24 hours): Temp Pulse Resp BP Pulse Ox 98.6 F 93 H 20 111/69 92 L 12/25/17 22:00 12/25/17 22:00 12/25/17 22:00 12/25/17 21:06 12/25/17 22:00 Intake and Output: 12/25/17 12/26/17 18:59 06:59 Intake Total 705 134.8 Output Total 1195 750 Balance -490 -615.2 - Medications Medications: Current Medications Aspirin (Aspirin Supp) 300 mg [place] DAILY [facility] Last Admin: 12/25/17 12:38 Dose: 300 mg Metronidazole (Flagyl) 500 mg in 100 mls @ 100 mls/hr IVPB Q8H [facility] PRN Reason: Protocol Last Admin: 12/25/17 18:33 Dose: 100 mls/hr Fluconazole (Diflucan Iv 200 Mg/100 Ml Ns) 100 mls @ 100 mls/hr IVPB DAILY [facility] PRN Reason: Protocol Last Admin: 12/25/17 09:57 Dose: 100 mls/hr Ciprofloxacin (Cipro 200mg/100ml D5w) 100 mls @ 67 mls/hr IVPB Q12H [facility] PRN Reason: Protocol Last Admin: 12/25/17 21:44 Dose: 67 mls/hr BUPIVACAINE 0.125%/0.9% NACL (Bupivacaine-Ns 0.125% On-Q [employer]) 600 mls @ 4 mls/ hr IJ ONCE ONE Stop: 12/31/17 16:54 Last Admin: 12/25/17 19:38 Dose: Not Given Acetaminophen (Ofirmev) 100 mls @ 400 mls/hr IV Q6 PRN PRN Reason: Pain, moderate (4-7) Stop: 12/26/17 10:58 Last Admin: 12/25/17 12:34 Dose: 400 mls/hr Furosemide 100 mg/ Sodium (Chloride) 100 mls @ 5 mls/hr IV .Q20H [facility]; 5 MG/HR PRN Reason: Protocol Last Admin: 12/25/17 12:00 Dose: 5 mls/hr Heparin Sodium/Sodium Chloride (Heparin 24500 Units/250ml 1/2 Normal Saline) 25 ,000 units in 250 mls @ 6.622 mls/hr IV .Q24H PRN; Protocol; 10 UNITS/KG/HR PRN Reason: PROTOCOL Last Admin: 12/25/17 19:43 Dose: 10 units/kg/hr, 6.622 mls/hr Insulin Aspart (Novolog) 0 unit SC Q6 [facility] PRN Reason: Protocol Last Admin: 12/25/17 18:34 Dose: 3 unit Metoprolol Tartrate (Lopressor) 2.5 mg IVP Q12H [facility] Last Admin: 12/25/17 21:44 Dose: 2.5 mg Morphine Sulfate (Morphine) 2 mg IVP Q4 PRN PRN Reason: Pain, severe (8-10) Last Admin: 12/25/17 19:55 Dose: 2 mg Ondansetron HCl (Zofran Inj) 4 mg IVP Q6H PRN PRN Reason: Nausea/Vomiting Pantoprazole Sodium (Protonix Inj) 40 mg IVP Q12H [facility] Last Admin: 12/25/17 21:43 Dose: 40 mg - Labs Labs: 12/25/17 06:18 12/25/17 06:18 PT 12.5 SECONDS (9.7-12.2) H 12/22/17 16:18 INR 1.1 12/22/17 16:18 APTT 34 SECONDS (21-34) 12/25/17 19:30 - Constitutional Appears: No Acute Distress - Head Exam Head Exam: ATRAUMATIC, NORMAL INSPECTION, NORMOCEPHALIC - Eye Exam Eye Exam: EOMI, Normal appearance, PERRL Pupil Exam: NORMAL ACCOMODATION, PERRL - Respiratory Exam Respiratory Exam: Clear to Ausculation Bilateral, NORMAL BREATHING PATTERN - Cardiovascular Exam Cardiovascular Exam: Tachycardia, +S1, +S2. absent: Murmur - GI/Abdominal Exam GI & Abdominal Exam: Soft, Normal Bowel Sounds. absent: Tenderness - Neurological Exam Neurological Exam: Alert, Awake, CN II-XII Intact, Normal Gait, Oriented x3 - Psychiatric Exam Psychiatric exam: Normal Affect, Normal Mood Assessment and Plan (1) Perforated abdominal viscus Status: Acute (2) Diabetes mellitus Status: Acute (3) GERD (gastroesophageal reflux disease) Status: Acute (4) Acute non-ST elevation myocardial infarction (NSTEMI) Assessment & Plan: heparin Status: Acute
[2017-12-26] MEDS: (Novolog) Insulin Aspart, Recombinant 100 u/ml 10 ml vial SC SCH ×4 (00:31→18:11)
--- NOTE | 2017-12-26 01:07 | CARD ---
APPROVED REPORT EXAM: Two-dimensional and M-mode echocardiogram with Doppler and color Doppler. Other Information Quality : TDSRhythm : INDICATION Chest Pain 2D DIMENSIONS IVSd1.4 (0.7-1.1cm)LVDd3.4 (3.9-5.9cm) PWd1.2 (0.7-1.1cm)LVDs2.5 (2.5-4.0cm) FS (%) 26.8 %LVEF (%)55.0 (>50%) M-Mode DIMENSIONS Left Atrium (MM)3.51 (2.5-4.0cm)Aortic Root4.40 (2.2-3.7cm) Aortic Cusp Exc.2.50 (1.5-2.0cm) Aortic Valve AI P 1/2 [id number] Mitral Valve MV E Axzgvtfq87.5cm/sMV A Qqsfwlvm53.8cm/sE/A ratio0.6 TDI E/Lateral E'0.0E/Medial E'0.0 Tricuspid Valve TR Peak [id number] Peak Gr.26mmHg LEFT VENTRICLE The left ventricle is normal size. There is mild concentric left ventricular hypertrophy. Left ventricle systolic function is normal. The Ejection Fraction is 65-70%. There is normal LV segmental wall motion. Transmitral Doppler flow pattern is Grade I-abnormal relaxation pattern. There is no ventricular septal defect visualized. RIGHT VENTRICLE The right ventricle is normal size. The right ventricular systolic function is normal. ATRIA The left atrium is mildly dilated. The right atrium size is normal. AORTIC VALVE The aortic valve is mildly to moderately sclerotic. The aortic valve is tri-cuspid. There is mild aortic regurgitation. There is no aortic valvular stenosis. MITRAL VALVE Mitral annular calcification is moderate. There is no evidence of mitral valve prolapse. Mitral regurgitation is mild. TRICUSPID VALVE The tricuspid valve is normal in structure. There is trace tricuspid regurgitation. Right ventricular systolic pressure is estimated at less than 30 mmHg. There is no pulmonary hypertension. PULMONIC VALVE The pulmonic valve is not well visualized. There is no pulmonic valvular regurgitation. GREAT VESSELS The aortic root is normal in size.not accurate measurement. The IVC was not visualized. <Conclusion> There is mild concentric left ventricular hypertrophy. Left ventricle systolic function is normal. The Ejection Fraction is 65-70%. Transmitral Doppler flow pattern is Grade I-abnormal relaxation pattern. There is mild aortic regurgitation. Mitral regurgitation is mild.
[2017-12-26 02:39] LABS: CK-MB 1.79 ng/mL (0.0-3.38)
[2017-12-26 02:40] LABS: TROPONIN I 4.57 ng/mL (0.00-0.120)
[2017-12-26] MEDS: metroNIDAZOLE IV 500 mg/100 ml 500 MG/100 ML BAG IVPB SCH ×3 (03:09→18:05)
[2017-12-26] MEDS: Heparin25000 units/250ml 1/2NS 25,000 UNITS/250 ML BAG IV PRN ×2 (03:15→22:50)
[2017-12-26 04:08] LABS: ALB/GLOB RATIO 0.9 (1.0-2.1); ALBUMIN 2.7 g/dL (3.5-5.0); CALCIUM 9.3 mg/dl (8.6-10.4)
[2017-12-26] MEDS: Morphine 4 MG/ML VIAL IVP PRN (04:20)
[2017-12-26] MEDS: Magnesium Sulfate 1 gm in D5W 1 GM/100 ML BAG IVPB SCH ×2 (04:41→05:07)
[2017-12-26] MEDS ORDERED: Magnesium Sulfate 1 gm in D5W 1 GM/100 ML BAG IVPB SCH (07:15)
--- NOTE | 2017-12-26 08:56 | CP.CCUPN ---
<Clement Vincent - Last Filed: 12/26/17 15:30> CCU Subjective - Physician Review Subjective (Free Text): 12/25/17 11:03 Patient seen and examined. Patient complaining of continued abdominal pain and some dyspnea. Denies chest pain at this time. 12/26/17 08:54 Patient seen and examined. Patient continues to complain of pain. Overnight, patient had episode of A-fib and was started on Amiodarone drip. CCU Objective - Vital Signs / Intake & Output Vital Signs (Last 4 hours): Vital Signs Temp Pulse Resp BP Pulse Ox 12/26/17 08:06 137 H 20 79/58 L 88 L 12/26/17 08:00 97.4 F L 129 H 17 90 L 12/26/17 07:42 137 H 18 93/60 L 90 L 12/26/17 07:06 152 H 18 84/58 L 90 L 12/26/17 07:00 151 H 17 90 L 12/26/17 06:50 137 H 18 85/65 L 93 L 12/26/17 06:09 130 H 85/65 L 93 L 12/26/17 06:00 98.3 F 134 H 18 91 L 12/26/17 05:06 123 H 16 80/57 L 94 L 12/26/17 05:00 125 H 21 93 L Intake and Output (Last 8hrs): Intake & Output 12/25/17 12/26/17 12/26/17 22:59 06:59 14:59 Intake Total 234.8 528.4 216 Output Total 1415 1130 0 Balance -1180.2 -601.6 216 Weight 141 lb Intake: Intake, IV Amount 234.8 528.4 216 Left Forearm 115 20 Left Upper arm 100 450 200 Right Hand 19.8 58.4 16 Oral 0 Output: Gastric Amount 50 Left Nares 50 Drainage 15 50 Right Lower Abdomen 15 50 Urine 1350 1080 Urine, Voided 1350 1080 Stool 0 0 - Physical Exam Head: Positive for: Atraumatic, Normocephalic Pupils: Positive for: PERRL Extroacular Muscles: Positive for: EOMI Mouth: Positive for: Moist Mucous Membranes Respiratory/Chest: Positive for: Clear to Auscultation. Negative for: Wheezes, Rales, Rhonchi Cardiovascular: Positive for: Normal S1, S2, Irregular Rhythm, Tachycardic Abdomen: Positive for: Tenderness, Guarding, Other (Abdominal dressing clean,dry ,intact) Upper Extremity: Positive for: Normal Inspection Lower Extremity: Positive for: Normal Inspection Neurological: Positive for: GCS=15 Skin: Positive for: Warm, Dry Psychiatric: Positive for: Alert, Oriented x 3 - Medications Active Medications: Active Medications Generic Name Dose Route Start Last Admin Trade Name Freq PRN Reason Stop Dose Admin Aspirin 300 mg 12/25/17 12:00 12/25/17 12:38 Aspirin Supp GA 300 mg DAILY KAROLINE Administration Metronidazole 500 mg in 100 mls @ 100 mls/hr 12/23/17 03:00 12/26/17 03:09 Flagyl IVPB 100 mls/hr Q8H KAROLINE Administration Protocol Fluconazole 100 mls @ 100 mls/hr 12/25/17 10:00 12/25/17 09:57 Diflucan Iv 200 Mg/100 Ml Ns IVPB 100 mls/hr DAILY KAROLINE Administration Protocol Ciprofloxacin 100 mls @ 67 mls/hr 12/25/17 09:30 12/25/17 21:44 Cipro 200mg/100ml D5w IVPB 67 mls/hr Q12H KAROLINE Administration Protocol BUPIVACAINE 0.125%/0.9% NACL 600 mls @ 4 mls/hr 12/25/17 10:55 12/25/17 19:38 Bupivacaine-Ns 0.125% On-Q [employer] IJ 12/31/17 16:54 Not Given ONCE ONE Acetaminophen 100 mls @ 400 mls/hr 12/25/17 10:57 12/26/17 08:13 Ofirmev IV 12/26/17 10:58 400 mls/hr Q6 PRN Administration Pain, moderate (4-7) Furosemide 100 mg/ Sodium 100 mls @ 5 mls/hr 12/25/17 12:00 12/25/17 12:00 Chloride IV 5 mls/hr .Q20H KAROLINE Administration Protocol 5 MG/HR Heparin Sodium/Sodium Chloride 25,000 units in 250 mls @ 7.947 mls/hr 03:15 12/26/17 03:15 Heparin 64631 Units/250ml 1/2 Normal Saline IV 12 units/kg/hr .Q24H PRN 7.947 mls/hr PROTOCOL Administration Protocol 12 UNITS/KG/HR Amiodarone HCl 900 mg/ 500 mls @ 33.33 mls/hr 12/26/17 03:19 12/26/17 06:50 Dextrose IV 12/26/17 18:19 33.33 mls/hr .Q15H1M ONE Administration Protocol 1 MG/MIN Insulin Aspart 0 unit 12/23/17 00:00 12/26/17 06:55 Novolog SC 3 unit Q6 KAROLINE Administration Protocol Metoprolol Tartrate 2.5 mg 12/25/17 09:30 12/25/17 21:44 Lopressor IVP 2.5 mg Q12H KAROLINE Administration Morphine Sulfate 2 mg 12/25/17 07:43 12/26/17 04:20 Morphine IVP 2 mg Q4 PRN Administration Pain, severe (8-10) Ondansetron HCl 4 mg 12/22/17 16:46 Zofran Inj IVP Q6H PRN Nausea/Vomiting Pantoprazole Sodium 40 mg 12/22/17 22:15 12/25/17 21:43 Protonix Inj IVP 40 mg Q12H KAROLINE Administration - Patient Studies Lab Studies: Microbiology Studies 12/22/17 16:24 Blood Culture - Preliminary Blood NO GROWTH AFTER 3 DAYS 12/22/17 16:10 Blood Culture - Preliminary Blood NO GROWTH AFTER 3 DAYS 12/22/17 22:35 Gram Stain - Final Peritoneal Fluid Body Fluid Culture - Preliminary NO GROWTH AFTER 2 DAYS Lab Studies 12/26/17 12/26/17 12/26/17 Range/Units 06:30 03:53 01:50 APTT 41 H D (21-34) SECONDS Sodium 140 (132-148) mmol/L Potassium 3.3 L (3.6-5.2) mmol/L Chloride 103 (98-107) mmol/L Carbon Dioxide 22 (22-30) mmol/L Anion Gap 19 (10-20) BUN 43 H (9-20) mg/dL Creatinine 1.9 H (0.8-1.5) mg/dL Est GFR ( Amer) 42 Est GFR (Non-Af Amer) 34 POC Glucose (mg/dL) 272 H (65-110) mg/dL Random Glucose 238 H (75-110) mg/dL Calcium 9.3 (8.6-10.4) mg/dl Phosphorus 3.2 (2.5-4.5) mg/dL Magnesium 1.5 L (1.6-2.3) mg/dL Total Bilirubin 0.6 (0.2-1.3) mg/dL AST 23 (17-59) U/L ALT 29 (21-72) U/L Alkaline Phosphatase 53 (38-126) U/L Total Creatine Kinase (55-170) U/L CK-MB (Mass) (0.0-3.38) ng/mL Troponin I (0.00-0.120) ng/mL Total Protein 5.6 L (6.3-8.3) g/dL Albumin 2.7 L (3.5-5.0) g/dL Globulin 2.9 (2.2-3.9) gm/dL Albumin/Globulin Ratio 0.9 L (1.0-2.1) 12/26/17 12/26/17 12/25/17 Range/Units 01:50 00:26 19:30 APTT 34 (21-34) SECONDS Sodium (132-148) mmol/L Potassium (3.6-5.2) mmol/L Chloride (98-107) mmol/L Carbon Dioxide (22-30) mmol/L Anion Gap (10-20) BUN (9-20) mg/dL Creatinine (0.8-1.5) mg/dL Est GFR ( Amer) Est GFR (Non-Af Amer) POC Glucose (mg/dL) 229 H (65-110) mg/dL Random Glucose (75-110) mg/dL Calcium (8.6-10.4) mg/dl Phosphorus (2.5-4.5) mg/dL Magnesium (1.6-2.3) mg/dL Total Bilirubin (0.2-1.3) mg/dL AST (17-59) U/L ALT (21-72) U/L Alkaline Phosphatase (38-126) U/L Total Creatine Kinase 108 (55-170) U/L CK-MB (Mass) 1.79 (0.0-3.38) ng/mL Troponin I 4.5700 H* (0.00-0.120) ng/mL Total Protein (6.3-8.3) g/dL Albumin (3.5-5.0) g/dL Globulin (2.2-3.9) gm/dL Albumin/Globulin Ratio (1.0-2.1) 12/25/17 12/25/17 12/25/17 Range/Units 19:30 17:46 12:01 APTT (21-34) SECONDS Sodium (132-148) mmol/L Potassium (3.6-5.2) mmol/L Chloride (98-107) mmol/L Carbon Dioxide (22-30) mmol/L Anion Gap (10-20) BUN (9-20) mg/dL Creatinine (0.8-1.5) mg/dL Est GFR ( Amer) Est GFR (Non-Af Amer) POC Glucose (mg/dL) 211 H 219 H (65-110) mg/dL Random Glucose (75-110) mg/dL Calcium (8.6-10.4) mg/dl Phosphorus (2.5-4.5) mg/dL Magnesium (1.6-2.3) mg/dL Total Bilirubin (0.2-1.3) mg/dL AST (17-59) U/L ALT (21-72) U/L Alkaline Phosphatase (38-126) U/L Total Creatine Kinase 153 (55-170) U/L CK-MB (Mass) 1.88 (0.0-3.38) ng/mL Troponin I 5.5200 H* (0.00-0.120) ng/mL Total Protein (6.3-8.3) g/dL Albumin (3.5-5.0) g/dL Globulin (2.2-3.9) gm/dL Albumin/Globulin Ratio (1.0-2.1) Laboratory Results - last 24 hr 12/25/17 12/25/17 12/25/17 12:01 17:46 19:30 APTT Sodium Potassium Chloride Carbon Dioxide Anion Gap BUN Creatinine Est GFR ( Amer) Est GFR (Non-Af Amer) POC Glucose (mg/dL) 219 H 211 H Random Glucose Calcium Phosphorus Magnesium Total Bilirubin AST ALT Alkaline Phosphatase Total Creatine Kinase 153 CK-MB (Mass) 1.88 Troponin I 5.5200 H* Total Protein Albumin Globulin Albumin/Globulin Ratio 12/25/17 12/26/17 12/26/17 19:30 00:26 01:50 APTT 34 Sodium Potassium Chloride Carbon Dioxide Anion Gap BUN Creatinine Est GFR ( Amer) Est GFR (Non-Af Amer) POC Glucose (mg/dL) 229 H Random Glucose Calcium Phosphorus Magnesium Total Bilirubin AST ALT Alkaline Phosphatase Total Creatine Kinase 108 CK-MB (Mass) 1.79 Troponin I 4.5700 H* Total Protein Albumin Globulin Albumin/Globulin Ratio 12/26/17 12/26/17 12/26/17 01:50 03:53 06:30 APTT 41 H D Sodium 140 Potassium 3.3 L Chloride 103 Carbon Dioxide 22 Anion Gap 19 BUN 43 H Creatinine 1.9 H Est GFR ( Amer) 42 Est GFR (Non-Af Amer) 34 POC Glucose (mg/dL) 272 H Random Glucose 238 H Calcium 9.3 Phosphorus 3.2 Magnesium 1.5 L Total Bilirubin 0.6 AST 23 ALT 29 Alkaline Phosphatase 53 Total Creatine Kinase CK-MB (Mass) Troponin I Total Protein 5.6 L Albumin 2.7 L Globulin 2.9 Albumin/Globulin Ratio 0.9 L EKG/Cardiology Studies: Cardiology / EKG Studies 12/25/17 20:43 EKG [ELECTROCARDIOGRAM] Stat Comment: Mode Of Transportation: PORTABLE Reason For Exam: ELEVATED TROPONIN Isolation: Contact PERFORMING PHYSICIAN/PROVIDER:: Iglesia Moreno Fingerstick Blood Sugar Results: 238 Critical Care Progress Note - Nutrition Nutrition: Nutrition Category Date Time Status NPO Diet [DIET] Diets 12/22/17 Dinner Active Assessment/Plan - Assessment and Plan (Free Text) Assessment: This is a 77 year old male with PMHx diabetes, hypertension, hypercholesterolemia admitted with perforated duodenal ulcer status post exploratory laparotomy with Repair of peptic perforation with Colin patch on . POD #4 Neuro Awake, verbal Cardio Elevated troponins now downtrending Likely CHF exacerbation Cardiology consulted Echo ordered Lopressor 2.5 mg IV Q12H with holding parameters Lasix drip because patient has borderline BP ASA 300 mg GA Heparin drip Amiodarone drip f/u cardiology recommendations Pulm Saturating well on nasal cannula Lasix drip to improve congestion GI NPO for now Protonix 40 mg IV Q12 PPN ordered by surgery at low rate Endocrine Accuchecks Q6H Novolog sliding scale Q6H Infectious Disease Cipro dose lowered to 200 mg IV Q12 due to renal status Flagyl 500 mg IV Q8H ID consulted Vancomycin 1 gm Q24H started on 12/26/17 Prophylaxis Heparin drip Protonix 40 mg IV Q12 PPN ordered by surgery at low rate Disposition: f/u cardiology recommendations Discussed with Dr. Faye <Obed Faye S - Last Filed: 12/26/17 16:04> CCU Objective - Vital Signs / Intake & Output Vital Signs (Last 4 hours): Vital Signs Pulse Resp BP Pulse Ox 12/26/17 15:19 109 H 14 84/49 L 97 12/26/17 15:16 100 H 15 78/53 L 97 12/26/17 15:06 90 14 72/45 L 98 12/26/17 15:00 105 H 13 98 12/26/17 14:27 107 H 17 80/58 L 89 L 12/26/17 14:26 116 H 20 74/52 L 94 L 12/26/17 14:06 116 H 15 76/51 L 95 12/26/17 14:00 109 H 16 94 L 12/26/17 13:06 114 H 18 94/53 L 89 L 12/26/17 13:00 114 H 17 100 12/26/17 12:06 108 H 16 84/43 L 96 Intake and Output (Last 8hrs): Intake & Output 12/26/17 12/26/17 12/26/17 06:59 14:59 22:59 Intake Total 528.4 947.0 24.6 Output Total 1130 200 Balance -601.6 747.0 24.6 Weight 141 lb Intake: Intake, IV Amount 528.4 947.0 24.6 Left Distal Port Forearm 183.0 16.6 Left Forearm 20 Left Upper arm 450 700 Right Hand 58.4 64 8 Output: Drainage 50 Right Lower Abdomen 50 Urine 1080 200 Urine, Voided 1080 200 Stool 0 0 - Medications Active Medications: Active Medications Generic Name Dose Route Start Last Admin Trade Name Freq PRN Reason Stop Dose Admin Aspirin 300 mg 12/25/17 12:00 12/26/17 11:19 Aspirin Supp GA 300 mg DAILY KAROLINE Administration Metronidazole 500 mg in 100 mls @ 100 mls/hr 12/23/17 03:00 12/26/17 11:25 Flagyl IVPB 100 mls/hr Q8H KAROLINE Administration Protocol Fluconazole 100 mls @ 100 mls/hr 12/25/17 10:00 12/26/17 11:20 Diflucan Iv 200 Mg/100 Ml Ns IVPB 100 mls/hr DAILY KAROLINE Administration Protocol Ciprofloxacin 100 mls @ 67 mls/hr 12/25/17 09:30 12/26/17 10:00 Cipro 200mg/100ml D5w IVPB 67 mls/hr Q12H KAROLINE Administration Protocol BUPIVACAINE 0.125%/0.9% NACL 600 mls @ 4 mls/hr 12/25/17 10:55 12/25/17 19:38 Bupivacaine-Ns 0.125% On-Q [employer] IJ 12/31/17 16:54 Not Given ONCE ONE Furosemide 100 mg/ Sodium 100 mls @ 5 mls/hr 12/25/17 12:00 12/25/17 12:00 Chloride IV 5 mls/hr .Q20H KAROLINE Administration Protocol 5 MG/HR Heparin Sodium/Sodium Chloride 25,000 units in 250 mls @ 7.947 mls/hr 03:15 12/26/17 03:15 Heparin 44128 Units/250ml 1/2 Normal Saline IV 12 units/kg/hr .Q24H PRN 7.947 mls/hr PROTOCOL Administration Protocol 12 UNITS/KG/HR Amiodarone HCl 900 mg/ 500 mls @ 33.33 mls/hr 12/26/17 03:19 12/26/17 06:50 Dextrose IV 12/26/17 18:19 33.33 mls/hr .Q15H1M ONE Administration Protocol 1 MG/MIN Vancomycin/Sodium Chloride 1 gm in 200 mls @ 133.333 mls/hr 12/26/17 12:00 12:35 Vancomycin 1 Gm/Ns 200 Ml IVPB 133.333 mls/hr Q24H KAROLINE Administration Protocol Multivitamins/Vitamin C 10 ml/ 1,011 mls @ 42 mls/hr 12/26/17 18:00 Chromium/Copper/Manganese/ IV 12/27/17 17:59 Seleni/Zn 1 ml/ Amino Acids .Q24H KAROLINE Acetaminophen 100 mls @ 400 mls/hr 12/26/17 15:00 Ofirmev IV 12/27/17 15:01 Q6H KAROLINE Insulin Aspart 0 unit 12/23/17 00:00 12/26/17 12:35 Novolog SC 4 unit Q6 KAROLINE Administration Protocol Metoprolol Tartrate 2.5 mg 12/25/17 09:30 12/26/17 11:56 Lopressor IVP Not Given Q12H [facility] Morphine Sulfate 2 mg 12/25/17 07:43 12/26/17 04:20 Morphine IVP 2 mg Q4 PRN Administration Pain, severe (8-10) Ondansetron HCl 4 mg 12/22/17 16:46 Zofran Inj IVP Q6H PRN Nausea/Vomiting Pantoprazole Sodium 40 mg 12/22/17 22:15 12/26/17 11:19 Protonix Inj IVP 40 mg Q12H [facility] Administration - Patient Studies Lab Studies: Microbiology Studies 12/22/17 22:35 Gram Stain - Final Peritoneal Fluid Body Fluid Culture - Preliminary NO GROWTH AFTER 3 DAYS 12/22/17 16:24 Blood Culture - Preliminary Blood NO GROWTH AFTER 3 DAYS 12/22/17 16:10 Blood Culture - Preliminary Blood NO GROWTH AFTER 3 DAYS Lab Studies 12/26/17 12/26/17 12/26/17 Range/Units 11:57 09:03 09:03 WBC (4.8-10.8) K/uL RBC (4.40-5.90) Mil/uL Hgb (12.0-18.0) g/dL Hct (35.0-51.0) % MCV (80.0-94.0) fL MCH (27.0-31.0) pg MCHC (33.0-37.0) g/dL RDW (11.5-14.5) % Plt Count (130-400) K/uL MPV (7.2-11.7) fL Neut % (Auto) (50.0-75.0) % Lymph % (Auto) (20.0-40.0) % [place] % (Auto) (0.0-10.0) % Eos % (Auto) (0.0-4.0) % Baso % (Auto) (0.0-2.0) % Neut # (Auto) (1.8-7.0) K/uL Lymph # (Auto) (1.0-4.3) K/uL [place] # (Auto) (0.0-0.8) K/uL Eos # (Auto) (0.0-0.7) K/uL Baso # (Auto) (0.0-0.2) K/uL Neutrophils % (Manual) (50-75) % Lymphocytes % (Manual) (20-40) % Monocytes % (Manual) (0-10) % Platelet Estimate (NORMAL) Polychromasia Hypochromasia (manual) Ovalocytes APTT 61 H D (21-34) SECONDS Sodium 138 (132-148) mmol/L Potassium 3.5 L (3.6-5.2) mmol/L Chloride 99 (98-107) mmol/L Carbon Dioxide 24 (22-30) mmol/L Anion Gap 19 (10-20) BUN 46 H (9-20) mg/dL Creatinine 1.8 H (0.8-1.5) mg/dL Est GFR ( Amer) 44 Est GFR (Non-Af Amer) 37 POC Glucose (mg/dL) 261 H (65-110) mg/dL Random Glucose 259 H (75-110) mg/dL Calcium 9.2 (8.6-10.4) mg/dl Phosphorus 3.0 (2.5-4.5) mg/dL Magnesium 2.2 (1.6-2.3) mg/dL Total Bilirubin 0.6 (0.2-1.3) mg/dL AST 22 (17-59) U/L ALT 23 (21-72) U/L Alkaline Phosphatase 53 (38-126) U/L Total Creatine Kinase (55-170) U/L CK-MB (Mass) (0.0-3.38) ng/mL Troponin I (0.00-0.120) ng/mL Total Protein 5.8 L (6.3-8.3) g/dL Albumin 2.7 L (3.5-5.0) g/dL Globulin 3.1 (2.2-3.9) gm/dL Albumin/Globulin Ratio 0.9 L (1.0-2.1) 12/26/17 12/26/17 12/26/17 Range/Units 09:03 06:30 03:53 WBC 13.9 H (4.8-10.8) K/uL RBC 3.77 L (4.40-5.90) Mil/uL Hgb 11.2 L (12.0-18.0) g/dL Hct 33.6 L (35.0-51.0) % MCV 89.3 (80.0-94.0) fL MCH 29.7 (27.0-31.0) pg MCHC 33.2 (33.0-37.0) g/dL RDW 13.1 (11.5-14.5) % Plt Count 209 (130-400) K/uL MPV 9.5 (7.2-11.7) fL Neut % (Auto) 93.4 H (50.0-75.0) % Lymph % (Auto) 2.4 L (20.0-40.0) % [place] % (Auto) 3.9 (0.0-10.0) % Eos % (Auto) 0.1 (0.0-4.0) % Baso % (Auto) 0.2 (0.0-2.0) % Neut # (Auto) 12.9 H (1.8-7.0) K/uL Lymph # (Auto) 0.3 L (1.0-4.3) K/uL [place] # (Auto) 0.5 (0.0-0.8) K/uL Eos # (Auto) 0.0 (0.0-0.7) K/uL Baso # (Auto) 0.0 (0.0-0.2) K/uL Neutrophils % (Manual) 90 H (50-75) % Lymphocytes % (Manual) 2 L (20-40) % Monocytes % (Manual) 8 (0-10) % Platelet Estimate Normal (NORMAL) Polychromasia Slight Hypochromasia (manual) Slight Ovalocytes Slight APTT (21-34) SECONDS Sodium 140 (132-148) mmol/L Potassium 3.3 L (3.6-5.2) mmol/L Chloride 103 (98-107) mmol/L Carbon Dioxide 22 (22-30) mmol/L Anion Gap 19 (10-20) BUN 43 H (9-20) mg/dL Creatinine 1.9 H (0.8-1.5) mg/dL Est GFR ( Amer) 42 Est GFR (Non-Af Amer) 34 POC Glucose (mg/dL) 272 H (65-110) mg/dL Random Glucose 238 H (75-110) mg/dL Calcium 9.3 (8.6-10.4) mg/dl Phosphorus 3.2 (2.5-4.5) mg/dL Magnesium 1.5 L (1.6-2.3) mg/dL Total Bilirubin 0.6 (0.2-1.3) mg/dL AST 23 (17-59) U/L ALT 29 (21-72) U/L Alkaline Phosphatase 53 (38-126) U/L Total Creatine Kinase (55-170) U/L CK-MB (Mass) (0.0-3.38) ng/mL Troponin I (0.00-0.120) ng/mL Total Protein 5.6 L (6.3-8.3) g/dL Albumin 2.7 L (3.5-5.0) g/dL Globulin 2.9 (2.2-3.9) gm/dL Albumin/Globulin Ratio 0.9 L (1.0-2.1) 12/26/17 12/26/17 12/26/17 Range/Units 01:50 01:50 00:26 WBC (4.8-10.8) K/uL RBC (4.40-5.90) Mil/uL Hgb (12.0-18.0) g/dL Hct (35.0-51.0) % MCV (80.0-94.0) fL MCH (27.0-31.0) pg MCHC (33.0-37.0) g/dL RDW (11.5-14.5) % Plt Count (130-400) K/uL MPV (7.2-11.7) fL Neut % (Auto) (50.0-75.0) % Lymph % (Auto) (20.0-40.0) % [place] % (Auto) (0.0-10.0) % Eos % (Auto) (0.0-4.0) % Baso % (Auto) (0.0-2.0) % Neut # (Auto) (1.8-7.0) K/uL Lymph # (Auto) (1.0-4.3) K/uL [place] # (Auto) (0.0-0.8) K/uL Eos # (Auto) (0.0-0.7) K/uL Baso # (Auto) (0.0-0.2) K/uL Neutrophils % (Manual) (50-75) % Lymphocytes % (Manual) (20-40) % Monocytes % (Manual) (0-10) % Platelet Estimate (NORMAL) Polychromasia Hypochromasia (manual) Ovalocytes APTT 41 H D (21-34) SECONDS Sodium (132-148) mmol/L Potassium (3.6-5.2) mmol/L Chloride (98-107) mmol/L Carbon Dioxide (22-30) mmol/L Anion Gap (10-20) BUN (9-20) mg/dL Creatinine (0.8-1.5) mg/dL Est GFR ( Amer) Est GFR (Non-Af Amer) POC Glucose (mg/dL) 229 H (65-110) mg/dL Random Glucose (75-110) mg/dL Calcium (8.6-10.4) mg/dl Phosphorus (2.5-4.5) mg/dL Magnesium (1.6-2.3) mg/dL Total Bilirubin (0.2-1.3) mg/dL AST (17-59) U/L ALT (21-72) U/L Alkaline Phosphatase (38-126) U/L Total Creatine Kinase 108 (55-170) U/L CK-MB (Mass) 1.79 (0.0-3.38) ng/mL Troponin I 4.5700 H* (0.00-0.120) ng/mL Total Protein (6.3-8.3) g/dL Albumin (3.5-5.0) g/dL Globulin (2.2-3.9) gm/dL Albumin/Globulin Ratio (1.0-2.1) 12/25/17 12/25/17 12/25/17 Range/Units 19:30 19:30 17:46 WBC (4.8-10.8) K/uL RBC (4.40-5.90) Mil/uL Hgb (12.0-18.0) g/dL Hct (35.0-51.0) % MCV (80.0-94.0) fL MCH (27.0-31.0) pg MCHC (33.0-37.0) g/dL RDW (11.5-14.5) % Plt Count (130-400) K/uL MPV (7.2-11.7) fL Neut % (Auto) (50.0-75.0) % Lymph % (Auto) (20.0-40.0) % [place] % (Auto) (0.0-10.0) % Eos % (Auto) (0.0-4.0) % Baso % (Auto) (0.0-2.0) % Neut # (Auto) (1.8-7.0) K/uL Lymph # (Auto) (1.0-4.3) K/uL [place] # (Auto) (0.0-0.8) K/uL Eos # (Auto) (0.0-0.7) K/uL Baso # (Auto) (0.0-0.2) K/uL Neutrophils % (Manual) (50-75) % Lymphocytes % (Manual) (20-40) % Monocytes % (Manual) (0-10) % Platelet Estimate (NORMAL) Polychromasia Hypochromasia (manual) Ovalocytes APTT 34 (21-34) SECONDS Sodium (132-148) mmol/L Potassium (3.6-5.2) mmol/L Chloride (98-107) mmol/L Carbon Dioxide (22-30) mmol/L Anion Gap (10-20) BUN (9-20) mg/dL Creatinine (0.8-1.5) mg/dL Est GFR ( Amer) Est GFR (Non-Af Amer) POC Glucose (mg/dL) 211 H (65-110) mg/dL Random Glucose (75-110) mg/dL Calcium (8.6-10.4) mg/dl Phosphorus (2.5-4.5) mg/dL Magnesium (1.6-2.3) mg/dL Total Bilirubin (0.2-1.3) mg/dL AST (17-59) U/L ALT (21-72) U/L Alkaline Phosphatase (38-126) U/L Total Creatine Kinase 153 (55-170) U/L CK-MB (Mass) 1.88 (0.0-3.38) ng/mL Troponin I 5.5200 H* (0.00-0.120) ng/mL Total Protein (6.3-8.3) g/dL Albumin (3.5-5.0) g/dL Globulin (2.2-3.9) gm/dL Albumin/Globulin Ratio (1.0-2.1) Laboratory Results - last 24 hr 12/25/17 12/25/17 12/25/17 17:46 19:30 19:30 WBC RBC Hgb Hct MCV MCH MCHC RDW Plt Count MPV Neut % (Auto) Lymph % (Auto) [place] % (Auto) Eos % (Auto) Baso % (Auto) Neut # (Auto) Lymph # (Auto) [place] # (Auto) Eos # (Auto) Baso # (Auto) Neutrophils % (Manual) Lymphocytes % (Manual) Monocytes % (Manual) Platelet Estimate Polychromasia Hypochromasia (manual) Ovalocytes APTT 34 Sodium Potassium Chloride Carbon Dioxide Anion Gap BUN Creatinine Est GFR ( Amer) Est GFR (Non-Af Amer) POC Glucose (mg/dL) 211 H Random Glucose Calcium Phosphorus Magnesium Total Bilirubin AST ALT Alkaline Phosphatase Total Creatine Kinase 153 CK-MB (Mass) 1.88 Troponin I 5.5200 H* Total Protein Albumin Globulin Albumin/Globulin Ratio 12/26/17 12/26/17 12/26/17 00:26 01:50 01:50 WBC RBC Hgb Hct MCV MCH MCHC RDW Plt Count MPV Neut % (Auto) Lymph % (Auto) [place] % (Auto) Eos % (Auto) Baso % (Auto) Neut # (Auto) Lymph # (Auto) [place] # (Auto) Eos # (Auto) Baso # (Auto) Neutrophils % (Manual) Lymphocytes % (Manual) Monocytes % (Manual) Platelet Estimate Polychromasia Hypochromasia (manual) Ovalocytes APTT 41 H D Sodium Potassium Chloride Carbon Dioxide Anion Gap BUN Creatinine Est GFR ( Amer) Est GFR (Non-Af Amer) POC Glucose (mg/dL) 229 H Random Glucose Calcium Phosphorus Magnesium Total Bilirubin AST ALT Alkaline Phosphatase Total Creatine Kinase 108 CK-MB (Mass) 1.79 Troponin I 4.5700 H* Total Protein Albumin Globulin Albumin/Globulin Ratio 12/26/17 12/26/17 12/26/17 03:53 06:30 09:03 WBC 13.9 H RBC 3.77 L Hgb 11.2 L Hct 33.6 L MCV 89.3 MCH 29.7 MCHC 33.2 RDW 13.1 Plt Count 209 MPV 9.5 Neut % (Auto) 93.4 H Lymph % (Auto) 2.[address] [place] % (Auto) 3.9 Eos % (Auto) 0.1 Baso % (Auto) 0.2 Neut # (Auto) 12.9 H Lymph # (Auto) 0.[address] [place] # (Auto) 0.5 Eos # (Auto) 0.0 Baso # (Auto) 0.0 Neutrophils % (Manual) 90 H Lymphocytes % (Manual) 2 L Monocytes % (Manual) 8 Platelet Estimate Normal Polychromasia Slight Hypochromasia (manual) Slight Ovalocytes Slight APTT Sodium 140 Potassium 3.3 L Chloride 103 Carbon Dioxide 22 Anion Gap 19 BUN 43 H Creatinine 1.9 H Est GFR ( Amer) 42 Est GFR (Non-Af Amer) 34 POC Glucose (mg/dL) 272 H Random Glucose 238 H Calcium 9.3 Phosphorus 3.2 Magnesium 1.5 L Total Bilirubin 0.6 AST 23 ALT 29 Alkaline Phosphatase 53 Total Creatine Kinase CK-MB (Mass) Troponin I Total Protein 5.6 L Albumin 2.7 L Globulin 2.9 Albumin/Globulin Ratio 0.9 L 12/26/17 12/26/17 12/26/17 09:03 09:03 11:57 WBC RBC Hgb Hct MCV MCH MCHC RDW Plt Count MPV Neut % (Auto) Lymph % (Auto) [place] % (Auto) Eos % (Auto) Baso % (Auto) Neut # (Auto) Lymph # (Auto) [place] # (Auto) Eos # (Auto) Baso # (Auto) Neutrophils % (Manual) Lymphocytes % (Manual) Monocytes % (Manual) Platelet Estimate Polychromasia Hypochromasia (manual) Ovalocytes APTT 61 H D Sodium 138 Potassium 3.5 L Chloride 99 Carbon Dioxide 24 Anion Gap 19 BUN 46 H Creatinine 1.8 H Est GFR ( Amer) 44 Est GFR (Non-Af Amer) 37 POC Glucose (mg/dL) 261 H Random Glucose 259 H Calcium 9.2 Phosphorus 3.0 Magnesium 2.2 Total Bilirubin 0.6 AST 22 ALT 23 Alkaline Phosphatase 53 Total Creatine Kinase CK-MB (Mass) Troponin I Total Protein 5.8 L Albumin 2.7 L Globulin 3.1 Albumin/Globulin Ratio 0.9 L EKG/Cardiology Studies: Cardiology / EKG Studies 12/25/17 20:43 EKG [ELECTROCARDIOGRAM] Stat Comment: Mode Of Transportation: PORTABLE Reason For Exam: ELEVATED TROPONIN Isolation: Contact PERFORMING PHYSICIAN/PROVIDER:: Iglesia Moreno [facility] Progress Note - Nutrition Nutrition: Nutrition Category Date Time Status NPO Diet [DIET] Diets 12/22/17 Dinner Active Attending/Attestation - Attestation I have personally seen and examined this patient.: Yes I have fully participated in the care of the patient.: Yes I have reviewed all pertinent clinical information: Yes Notes (Text): 12/26/17 16:01 patient seen and examined in the intensive care unit. Case discussed with house staff in the morning. Started on amiodarone drip overnight for A. fib with rapid ventricular rate and hypotension On her both Lopressor Lasix drip discontinued for hypotension Possible cardiac cath once stable Started on IV antibiotics iD evaluation Follow-up culture and sensitivity Continue to monitor in ICU Continue heparin drip Consider cardioversion for A. fib with rapid rate and hypotension
[2017-12-26 09:07] LABS: BASO % 0.2 % (0.0-2.0); EOS % 0.1 % (0.0-4.0); HEMOGLOBIN 11.2 g/dL (12.0-18.0); LYMPH # 0.3 K/uL (1.0-4.3); LYMPH % 2.4 % (20.0-40.0); MEAN CELL VOLUME 89.3 fL (80.0-94.0); MEAN CORPUSCULAR HEMOGLOBIN 29.7 pg (27.0-31.0); MEAN CORPUSCULAR HGB CONC 33.2 g/dL (33.0-37.0); MEAN PLATELET VOLUME 9.5 fL (7.2-11.7); MONO # 0.5 K/uL (0.0-0.8); MONO % 3.9 % (0.0-10.0); NEUT # 12.9 K/uL (1.8-7.0); NEUT % 93.4 % (50.0-75.0); PLATELET COUNT 209 K/uL (130-400); RBC 3.77 Mil/uL (4.40-5.90); RED CELL DISTRIBUTION WIDTH 13.1 % (11.5-14.5); WHITE BLOOD COUNT 13.9 K/uL (4.8-10.8)
[2017-12-26 09:25] LABS: ALB/GLOB RATIO 0.9 (1.0-2.1); ALBUMIN 2.7 g/dL (3.5-5.0); CALCIUM 9.2 mg/dl (8.6-10.4)
[2017-12-26 09:50] LABS: LYMPHOCYTE 2 % (20-40); MONOCYTE 8 % (0-10); NEUTROPHIL 90 % (50-75); TOTAL CELLS COUNTED 100
[2017-12-26 09:51] LABS: PLATELET ESTIMATE NORMAL (NORMAL)
[2017-12-26 09:53] LABS: HYPOCHROMIC SLIGHT; OVALOCYTES SLIGHT; POLYCHROMIC SLIGHT
[2017-12-26] MEDS: Ciprofloxacin 200mg/100ml D5W 100 ML IVPB SCH ×2 (10:00→22:30)
--- NOTE | 2017-12-26 10:18 | CP.PCM.PN ---
<Barby Monteiro - Last Filed: 12/26/17 10:13> Subjective - Date & Time of Evaluation Date of Evaluation: 12/26/17 Time of Evaluation: 06:50 - Subjective Subjective: Patient seen and examined at bedside this AM. Patient has persistent Afib with RVR tachycardia and hypotension. Patient also had NSTEMI yesterday and heparin drip was initiated by cardio. Patient is complaining of pain but denies any nausea, vomiting. Patient has not passed gas or had a BM. NGT has 250cc output per 24 hours. Constantino drain with 95cc/s serosanguinous fluid output Objective - Vital Signs/Intake and Output Vital Signs (last 24 hours): Temp Pulse Resp BP Pulse Ox 97.4 F L 137 H 20 79/58 L 88 L 12/26/17 08:00 12/26/17 08:06 12/26/17 08:06 12/26/17 08:06 12/26/17 08:06 Intake and Output: 12/26/17 12/26/17 06:59 18:59 Intake Total 663.2 216 Output Total 1880 0 Balance -1216.8 216 - Medications Medications: Current Medications Aspirin (Aspirin Supp) 300 mg [place] DAILY K[facility]INE Last Admin: 12/25/17 12:38 Dose: 300 mg Metronidazole (Flagyl) 500 mg in 100 mls @ 100 mls/hr IVPB Q8H [facility] PRN Reason: Protocol Last Admin: 12/26/17 03:09 Dose: 100 mls/hr Fluconazole (Diflucan Iv 200 Mg/100 Ml Ns) 100 mls @ 100 mls/hr IVPB DAILY [facility] PRN Reason: Protocol Last Admin: 12/25/17 09:57 Dose: 100 mls/hr Ciprofloxacin (Cipro 200mg/100ml D5w) 100 mls @ 67 mls/hr IVPB Q12H [facility] PRN Reason: Protocol Last Admin: 12/25/17 21:44 Dose: 67 mls/hr BUPIVACAINE 0.125%/0.9% NACL (Bupivacaine-Ns 0.125% On-Q [employer] Duster) 600 mls @ 4 mls/ hr IJ ONCE ONE Stop: 12/31/17 16:54 Last Admin: 12/25/17 19:38 Dose: Not Given Acetaminophen (Ofirmev) 100 mls @ 400 mls/hr IV Q6 PRN PRN Reason: Pain, moderate (4-7) Stop: 12/26/17 10:58 Last Admin: 12/26/17 08:13 Dose: 400 mls/hr Furosemide 100 mg/ Sodium (Chloride) 100 mls @ 5 mls/hr IV .Q20H [facility]; 5 MG/HR PRN Reason: Protocol Last Admin: 12/25/17 12:00 Dose: 5 mls/hr Heparin Sodium/Sodium Chloride (Heparin 89513 Units/250ml 1/2 Normal Saline) 25 ,000 units in 250 mls @ 7.947 mls/hr IV .Q24H PRN; Protocol; 12 UNITS/KG/HR PRN Reason: PROTOCOL Last Admin: 12/26/17 03:15 Dose: 12 units/kg/hr, 7.947 mls/hr Amiodarone HCl 900 mg/ (Dextrose) 500 mls @ 33.33 mls/hr IV .Q15H1M ONE; 1 MG/ MIN PRN Reason: Protocol Stop: 12/26/17 18:19 Last Admin: 12/26/17 06:50 Dose: 33.33 mls/hr Insulin Aspart (Novolog) 0 unit SC Q6 [facility] PRN Reason: Protocol Last Admin: 12/26/17 06:55 Dose: 3 unit Metoprolol Tartrate (Lopressor) 2.5 mg IVP Q12H [facility] Last Admin: 12/25/17 21:44 Dose: 2.5 mg Morphine Sulfate (Morphine) 2 mg IVP Q4 PRN PRN Reason: Pain, severe (8-10) Last Admin: 12/26/17 04:20 Dose: 2 mg Ondansetron HCl (Zofran Inj) 4 mg IVP Q6H PRN PRN Reason: Nausea/Vomiting Pantoprazole Sodium (Protonix Inj) 40 mg IVP Q12H [facility] Last Admin: 12/25/17 21:43 Dose: 40 mg - Labs Labs: 12/26/17 09:03 12/26/17 09:03 PT 12.5 SECONDS (9.7-12.2) H 12/22/17 16:18 INR 1.1 12/22/17 16:18 APTT 61 SECONDS (21-34) H D 12/26/17 09:03 - Constitutional Appears: Toxic, No Acute Distress - Head Exam Head Exam: ATRAUMATIC, NORMOCEPHALIC - ENT Exam ENT Exam: Mucous Membranes Moist, Normal Oropharynx - Respiratory Exam Respiratory Exam: NORMAL BREATHING PATTERN. absent: Accessory Muscle Use, Respiratory Distress - Cardiovascular Exam Cardiovascular Exam: Tachycardia, Irregular Rhythm - GI/Abdominal Exam GI & Abdominal Exam: Soft, Tenderness (epigastric). absent: Distended Additional comments: Surgical incision well approximated by panda. On-q catheters displaced outside of the skin and leaking--removed by surgery team - Neurological Exam Neurological Exam: Alert, Awake, Oriented x3 - Psychiatric Exam Psychiatric exam: Normal Affect, Normal Mood - Skin Skin Exam: Diaphoretic, Intact, Normal Color, Warm Assessment and Plan - Assessment and Plan (Free Text) Assessment: 77M POD#4 s/p exploratory lap and rachelle patch for duodenal perforation Plan: -Continue NGT to low continuous wall suction and NPO until bowel function -Continue to monitor drain output -Continue IV antibiotics -initiate PPN -Continue ot follow up cardio and ICU recs -Prn pain medication Seen and discussed with Dr. Daisy Monteiro, PGY2 <Fred Villa - Last Filed: 12/27/17 15:45> Objective - Vital Signs/Intake and Output Vital Signs (last 24 hours): Temp Pulse Resp BP Pulse Ox 98.5 F 79 14 98/62 L 95 12/27/17 12:00 12/27/17 14:01 12/27/17 14:01 12/27/17 14:01 12/27/17 14:01 Intake and Output: 12/27/17 12/27/17 06:59 18:59 Intake Total 1699.2 1179.2 Output Total 730 Balance 969.2 1179.2 - Medications Medications: Current Medications Aspirin (Aspirin Supp) 300 mg AK DAILY K[facility]OLINE Last Admin: 12/27/17 11:37 Dose: 300 mg Digoxin (Lanoxin) 0.25 mg IVP DAILY@1800 [facility] Metronidazole (Flagyl) 500 mg in 100 mls @ 100 mls/hr IVPB Q8H [facility] PRN Reason: Protocol Last Admin: 12/27/17 11:19 Dose: 100 mls/hr Fluconazole (Diflucan Iv 200 Mg/100 Ml Ns) 100 mls @ 100 mls/hr IVPB DAILY [facility] PRN Reason: Protocol Last Admin: 12/27/17 10:22 Dose: 100 mls/hr Ciprofloxacin (Cipro 200mg/100ml D5w) 100 mls @ 67 mls/hr IVPB Q12H [facility] PRN Reason: Protocol Last Admin: 12/27/17 09:34 Dose: 67 mls/hr BUPIVACAINE 0.125%/0.9% NACL (Bupivacaine-Ns 0.125% On-Q [employer]) 600 mls @ 4 mls/ hr IJ ONCE ONE Stop: 12/31/17 16:54 Last Admin: 12/25/17 19:38 Dose: Not Given Furosemide 100 mg/ Sodium (Chloride) 100 mls @ 5 mls/hr IV .Q20H [facility]; 5 MG/HR PRN Reason: Protocol Last Admin: 12/27/17 04:00 Dose: Not Given Heparin Sodium/Sodium Chloride (Heparin 62743 Units/250ml 1/2 Normal Saline) 25 ,000 units in 250 mls @ 7.947 mls/hr IV .Q24H PRN; Protocol; 12 UNITS/KG/HR PRN Reason: PROTOCOL Last Admin: 12/26/17 22:50 Dose: 12 units/kg/hr, 7.947 mls/hr Vancomycin/Sodium Chloride (Vancomycin 1 Gm/Ns 200 Ml) 1 gm in 200 mls @ 133.333 mls/hr IVPB Q24H [facility] PRN Reason: Protocol Last Admin: 12/27/17 11:37 Dose: 133.333 mls/hr Multivitamins/Vitamin C 10 ml/Chromium/Copper/Manganese/Seleni/Zn 1 ml/ Amino Acids 1,011 mls @ 42 mls/hr IV .Q24H [facility] Stop: 12/27/17 17:59 Last Admin: 12/26/17 18:05 Dose: 42 mls/hr Aztreonam 1 gm/ Sodium (Chloride) 100 mls @ 100 mls/hr IVPB Q12H [facility] PRN Reason: Protocol Last Admin: 12/27/17 13:00 Dose: 100 mls/hr Acetaminophen (Ofirmev) 100 mls @ 400 mls/hr IV Q6 PRN PRN Reason: Pain, moderate (4-7) Stop: 12/28/17 09:34 Multivitamins/Vitamin C 10 ml/Chromium/Copper/Manganese/Zinc 1 ml/ Amino Acids 1,011 mls @ 42 mls/hr IV .Q24H ONE Stop: 12/28/17 17:59 Insulin Aspart (Novolog) 0 unit SC Q6 [facility] PRN Reason: Protocol Metoprolol Tartrate (Lopressor) 2.5 mg IVP Q12H [facility] Last Admin: 12/27/17 11:20 Dose: Not Given Morphine Sulfate (Morphine) 2 mg IVP Q4 PRN PRN Reason: Pain, severe (8-10) Last Admin: 12/27/17 11:19 Dose: 2 mg Ondansetron HCl (Zofran Inj) 4 mg IVP Q6H PRN PRN Reason: Nausea/Vomiting Pantoprazole Sodium (Protonix Inj) 40 mg IVP Q12H [facility] Last Admin: 12/27/17 09:35 Dose: 40 mg - Labs Labs: 12/27/17 06:04 12/27/17 06:04 PT 12.5 SECONDS (9.7-12.2) H 12/22/17 16:18 INR 1.1 12/22/17 16:18 APTT 54 SECONDS (21-34) H 12/27/17 06:04 Attending/Attestation - Attestation I have personally seen and examined this patient.: Yes I have fully participated in the care of the patient.: Yes I have reviewed all pertinent clinical information, including history, physical exam and plan: Yes Notes (Text): Pt was seen and examined at bedside Agree with above note and assessment Pt has some incisional pain Cardiac enzymes are elevated Cardiology consult c.w current mx DC NG tube in am Plan dLaviniaw pt in detail
[2017-12-26] MEDS: Fluconazole IV 200mg/100 ml NS 100 ML IVPB SCH (11:20)
[2017-12-26] MEDS: Metoprolol 1 mg/ml Inj IVP SCH ×2 (11:56→21:30)
[2017-12-26] MEDS: Vancomycin 1 gm/NS 200 ml 1 GM/200 ML BAG IVPB SCH (12:35)
--- NOTE | 2017-12-26 16:15 | CP.PCM.CON ---
History of Present Illness - History of Present Illness History of Present Illness: INFECTIOUS DISEASE CONSULT; HPI 77yo M. PMHx HTN, HLD, DM, GERD. p/w perforated duodenal ulcer with peritoneal contamination, s/p Colin Patch Repair with Ex-Laparotomy on 12/22/17 and washout. Admitted to ICU for post-op monitoring. POSTOPERATIVE COURSE WITH HYPOTENSION AND POSITIVE TROPONINS CONSISTENT WITH NSTEMI. PATIENT ALSO COMPLAINING OF SHORTNESS OF BREATH WITH LARGE PLEURAL EFFUSIONS, AND PRESENTLY ON HEPARIN DRIP REPORTED BY RN. PATIENT ALSO WITH INCREASING LEUKOCYTOSIS. PATIENT CONTINUES TO COMPLAIN OF ABDOMINAL PAIN. INFECTIOUS DISEASE CONSULTATION REQUESTED BY DR PITTMAN FOR HYPOTENSION/SEPSIS. Patient had a CT chest abdomen and pelvis w/o oral contrast 12/24/17 which showed complete consolidation both lower lobes consistent with compressive atelectasis by pleural effusions.fluid collection between stomach liver anterior to the pancreas consistent with air-fluid levels ? seroma vs hematoma versus developing abscess. Moderate to large bilateral pleural effusions .( see full report ) chest x-ray 12/25/17 consistent with moderate venous congestion. Patchy bibasilar air space opacities with small bilateral pleural effusions. Right hilar prominence also noted. PATIENT PRESENTLY ON CIPRO 200 MG EVERY 12 HOURLY. IV fLAGYL 500 EVERY 8 HOURLY. IV FLUCONAZOLE 100 MG ONCE A DAY. PMH: Arthritis (L TKR), HTN, Hypercholesterolemia, Hyperlipidemia Surgical History: No Surg Hx Family History: States: No Known Family Hx - Social History Hx Alcohol Use: No Hx Substance Use: No - Immunization History Hx Tetanus Toxoid Vaccination: No Hx Influenza Vaccination: Yes Hx Pneumococcal Vaccination: Yes ALLERGY; PENICILLIN. Review of Systems - Constitutional Constitutional: As Per HPI - EENT Eyes: absent: Change in Vision Nose/Mouth/Throat: Dry Mouth. absent: Mouth Lesions - Cardiovascular Cardiovascular: Dyspnea. absent: Chest Pain - Respiratory Respiratory: Chest Congestion. absent: Cough, Hemoptysis - Gastrointestinal Gastrointestinal: Abdominal Pain. absent: Diarrhea, Nausea, Vomiting - Genitourinary Genitourinary: absent: Dysuria, Freq UTI, Hx Renal/Bladder Calculi - Neurological Neurological: As Per HPI. absent: Headaches - Hematologic/Lymphatic Hematologic: As Per HPI. absent: Easy Bleeding, Easy Bruising, Lymphadenopathy Past Patient History - Infectious Disease Hx of Infectious Diseases: None - Past Medical History & Family History Past Medical History?: Yes - Past Social History Smoking Status: Never Smoked - CARDIAC Hx Hypercholesterolemia: Yes Hx Hypertension: Yes - PULMONARY Hx Respiratory Disorders: No - NEUROLOGICAL Hx Neurological Disorder: Yes Hx Syncope: Yes - HEENT Hx HEENT Problems: No - RENAL Hx Chronic Kidney Disease: No - ENDOCRINE/METABOLIC Hx Diabetes Mellitus Type 2: Yes - HEMATOLOGICAL/ONCOLOGICAL Hx Blood Disorders: No - INTEGUMENTARY Hx Dermatological Problems: No - MUSCULOSKELETAL/RHEUMATOLOGICAL Hx Arthritis: Yes (L TKR) - GASTROINTESTINAL Hx Gastrointestinal Disorders: Yes Hx Gastroesophageal Reflux: Yes - GENITOURINARY/GYNECOLOGICAL Hx Genitourinary Disorders: No - PSYCHIATRIC Hx Substance Use: No - SURGICAL HISTORY Hx Surgeries: Yes Other/Comment: left knee replacement, and left nerve repair, left and right hand nerve repair - ANESTHESIA Hx Anesthesia: Yes Hx Anesthesia Reactions: No Hx Malignant Hyperthermia: No Has any member of the family had a problem w/ anesthesia?: No Meds Allergies/Adverse Reactions: Allergies Allergy/AdvReac Type Severity Reaction Status Date / Time Penicillins Allergy Mild Verified 12/22/17 11:50 - Medications Medications: Current Medications Aspirin (Aspirin Supp) 300 mg [place] DAILY KAROLINE Last Admin: 12/26/17 11:19 Dose: 300 mg Metronidazole (Flagyl) 500 mg in 100 mls @ 100 mls/hr IVPB Q8H [facility] PRN Reason: Protocol Last Admin: 12/26/17 11:25 Dose: 100 mls/hr Fluconazole (Diflucan Iv 200 Mg/100 Ml Ns) 100 mls @ 100 mls/hr IVPB DAILY K[facility]OLINE PRN Reason: Protocol Last Admin: 12/26/17 11:20 Dose: 100 mls/hr Ciprofloxacin (Cipro 200mg/100ml D5w) 100 mls @ 67 mls/hr IVPB Q12H [facility] PRN Reason: Protocol Last Admin: 12/26/17 10:00 Dose: 67 mls/hr BUPIVACAINE 0.125%/0.9% NACL (Bupivacaine-Ns 0.125% On-Q Heavy Machinery Assembler) 600 mls @ 4 mls/ hr IJ ONCE ONE Stop: 12/31/17 16:54 Last Admin: 12/25/17 19:38 Dose: Not Given Furosemide 100 mg/ Sodium (Chloride) 100 mls @ 5 mls/hr IV .Q20H [facility]INE; 5 MG/HR PRN Reason: Protocol Last Admin: 12/25/17 12:00 Dose: 5 mls/hr Heparin Sodium/Sodium Chloride (Heparin 48374 Units/250ml 1/2 Normal Saline) 25 ,000 units in 250 mls @ 7.947 mls/hr IV .Q24H PRN; Protocol; 12 UNITS/KG/HR PRN Reason: PROTOCOL Last Admin: 12/26/17 03:15 Dose: 12 units/kg/hr, 7.947 mls/hr Amiodarone HCl 900 mg/ (Dextrose) 500 mls @ 33.33 mls/hr IV .Q15H1M ONE; 1 MG/ MIN PRN Reason: Protocol Stop: 12/26/17 18:19 Last Admin: 12/26/17 06:50 Dose: 33.33 mls/hr Vancomycin/Sodium Chloride (Vancomycin 1 Gm/Ns 200 Ml) 1 gm in 200 mls @ 133.333 mls/hr IVPB Q24H [facility] PRN Reason: Protocol Last Admin: 12/26/17 12:35 Dose: 133.333 mls/hr Multivitamins/Vitamin C 10 ml/Chromium/Copper/Manganese/Seleni/Zn 1 ml/ Amino Acids 1,011 mls @ 42 mls/hr IV .Q24H [facility] Stop: 12/27/17 17:59 Acetaminophen (Ofirmev) 100 mls @ 400 mls/hr IV Q6H [facility] Stop: 12/27/17 15:01 Insulin Aspart (Novolog) 0 unit SC Q6 K[facility]OLINE PRN Reason: Protocol Last Admin: 12/26/17 12:35 Dose: 4 unit Metoprolol Tartrate (Lopressor) 2.5 mg IVP Q12H [facility] Last Admin: 12/26/17 11:56 Dose: Not Given Morphine Sulfate (Morphine) 2 mg IVP Q4 PRN PRN Reason: Pain, severe (8-10) Last Admin: 12/26/17 04:20 Dose: 2 mg Ondansetron HCl (Zofran Inj) 4 mg IVP Q6H PRN PRN Reason: Nausea/Vomiting Pantoprazole Sodium (Protonix Inj) 40 mg IVP Q12H [facility] Last Admin: 12/26/17 11:19 Dose: 40 mg Physical Exam - Constitutional Appears: No Acute Distress, Cachectic - Head Exam Head Exam: NORMAL INSPECTION - Eye Exam Eye Exam: EOMI, PERRL. absent: Scleral icterus - ENT Exam ENT Exam: Normal Oropharynx - Respiratory Exam Respiratory Exam: Decreased Breath Sounds, Rales, Rhonchi - Cardiovascular Exam Cardiovascular Exam: Tachycardia, REGULAR RHYTHM, +S1, +S2 - GI/Abdominal Exam GI & Abdominal Exam: Diminished Bowel Sounds, Soft, Tenderness - Extremities Exam Extremities exam: Positive for: pedal pulses present. Negative for: calf tenderness, pedal edema - Neurological Exam Neurological exam: Alert, CN II-XII Intact, Oriented x3, Reflexes Normal - Psychiatric Exam Psychiatric exam: Normal Mood - Skin Skin Exam: Normal Color, Warm Results - Vital Signs Recent Vital Signs: Last Vital Signs Temp 97.4 F L 12/26/17 12:00 Pulse 109 H 12/26/17 15:19 Resp 14 12/26/17 15:19 BP 84/49 L 12/26/17 15:19 Pulse Ox 97 12/26/17 15:19 - Labs Result Diagrams: 12/26/17 09:03 12/26/17 09:03 Labs: Laboratory Results - last 24 hr 12/25/17 12/25/17 12/25/17 17:46 19:30 19:30 WBC RBC Hgb Hct MCV MCH MCHC RDW Plt Count MPV Neut % (Auto) Lymph % (Auto) Tripp % (Auto) Eos % (Auto) Baso % (Auto) Neut # (Auto) Lymph # (Auto) Tripp # (Auto) Eos # (Auto) Baso # (Auto) Neutrophils % (Manual) Lymphocytes % (Manual) Monocytes % (Manual) Platelet Estimate Polychromasia Hypochromasia (manual) Ovalocytes APTT 34 Sodium Potassium Chloride Carbon Dioxide Anion Gap BUN Creatinine Est GFR ( Amer) Est GFR (Non-Af Amer) POC Glucose (mg/dL) 211 H Random Glucose Calcium Phosphorus Magnesium Total Bilirubin AST ALT Alkaline Phosphatase Total Creatine Kinase 153 CK-MB (Mass) 1.88 Troponin I 5.5200 H* Total Protein Albumin Globulin Albumin/Globulin Ratio 12/26/17 12/26/17 12/26/17 00:26 01:50 01:50 WBC RBC Hgb Hct MCV MCH MCHC RDW Plt Count MPV Neut % (Auto) Lymph % (Auto) Tripp % (Auto) Eos % (Auto) Baso % (Auto) Neut # (Auto) Lymph # (Auto) Tripp # (Auto) Eos # (Auto) Baso # (Auto) Neutrophils % (Manual) Lymphocytes % (Manual) Monocytes % (Manual) Platelet Estimate Polychromasia Hypochromasia (manual) Ovalocytes APTT 41 H D Sodium Potassium Chloride Carbon Dioxide Anion Gap BUN Creatinine Est GFR ( Amer) Est GFR (Non-Af Amer) POC Glucose (mg/dL) 229 H Random Glucose Calcium Phosphorus Magnesium Total Bilirubin AST ALT Alkaline Phosphatase Total Creatine Kinase 108 CK-MB (Mass) 1.79 Troponin I 4.5700 H* Total Protein Albumin Globulin Albumin/Globulin Ratio 12/26/17 12/26/17 12/26/17 03:53 06:30 09:03 WBC 13.9 H RBC 3.77 L Hgb 11.2 L Hct 33.6 L MCV 89.3 MCH 29.7 MCHC 33.2 RDW 13.1 Plt Count 209 MPV 9.5 Neut % (Auto) 93.4 H Lymph % (Auto) 2.4 L Tripp % (Auto) 3.9 Eos % (Auto) 0.1 Baso % (Auto) 0.2 Neut # (Auto) 12.9 H Lymph # (Auto) 0.3 L Tripp # (Auto) 0.5 Eos # (Auto) 0.0 Baso # (Auto) 0.0 Neutrophils % (Manual) 90 H Lymphocytes % (Manual) 2 L Monocytes % (Manual) 8 Platelet Estimate Normal Polychromasia Slight Hypochromasia (manual) Slight Ovalocytes Slight APTT Sodium 140 Potassium 3.3 L Chloride 103 Carbon Dioxide 22 Anion Gap 19 BUN 43 H Creatinine 1.9 H Est GFR ( Amer) 42 Est GFR (Non-Af Amer) 34 POC Glucose (mg/dL) 272 H Random Glucose 238 H Calcium 9.3 Phosphorus 3.2 Magnesium 1.5 L Total Bilirubin 0.6 AST 23 ALT 29 Alkaline Phosphatase 53 Total Creatine Kinase CK-MB (Mass) Troponin I Total Protein 5.6 L Albumin 2.7 L Globulin 2.9 Albumin/Globulin Ratio 0.9 L 12/26/17 12/26/17 12/26/17 09:03 09:03 11:57 WBC RBC Hgb Hct MCV MCH MCHC RDW Plt Count MPV Neut % (Auto) Lymph % (Auto) Tripp % (Auto) Eos % (Auto) Baso % (Auto) Neut # (Auto) Lymph # (Auto) Tripp # (Auto) Eos # (Auto) Baso # (Auto) Neutrophils % (Manual) Lymphocytes % (Manual) Monocytes % (Manual) Platelet Estimate Polychromasia Hypochromasia (manual) Ovalocytes APTT 61 H D Sodium 138 Potassium 3.5 L Chloride 99 Carbon Dioxide 24 Anion Gap 19 BUN 46 H Creatinine 1.8 H Est GFR ( Amer) 44 Est GFR (Non-Af Amer) 37 POC Glucose (mg/dL) 261 H Random Glucose 259 H Calcium 9.2 Phosphorus 3.0 Magnesium 2.2 Total Bilirubin 0.6 AST 22 ALT 23 Alkaline Phosphatase 53 Total Creatine Kinase CK-MB (Mass) Troponin I Total Protein 5.8 L Albumin 2.7 L Globulin 3.1 Albumin/Globulin Ratio 0.9 L - Imaging and Cardiology Chest x-ray Status: Report reviewed by me Assessment & Plan (1) Sepsis associated hypotension Status: Acute (2) Perforated abdominal viscus Status: Acute (3) Status post exploratory laparotomy Status: Acute (4) Acute non-ST elevation myocardial infarction (NSTEMI) Status: Acute (5) CHF (congestive heart failure) Status: Acute (6) Diabetes mellitus Status: Acute - Assessment and Plan (Free Text) Plan: pancultures dc iv Cipro.. Start IV Azactam 1 g IV piggyback every 12 hourly. Infuse first dose slowly over 90 minutes and watch for any rash or itching.12/26/17 Add IV vancomycin 1 g once a day daily for gram-positive/enterococcal coverage with intra-abdominal sepsis.12/26/17 Continue IV Flagyl 500 every 8 hourly 12/22/17 continue IV fluconazole 100 mg once a day daily 12/22/17. follow-up Vanco trough level prior to the third dose and keep it between 10 and 20. Follow-up cultures to adjust antibiotics. IV fluids and diuretics as per surgery and operator engineer. Will check 2-D echo to rule out pericardial effusion because of persistent hypotension. Will follow along with you and make further recommendations as needed.
[2017-12-26] MEDS ORDERED: Sodium Chloride 0.9% 250 ML IV ONE (17:25)
[2017-12-26] MEDS ORDERED: Digoxin 500 mcg/2ml (0.5 mg/2ml) Inj IVP ONE (17:25)
[2017-12-26] MEDS: Furosemide 100 MG in Sodium Chloride 0.9% 90 ML IV SCH (17:59)
[2017-12-26] MEDS ORDERED: Digoxin 500 mcg/2ml (0.5 mg/2ml) Inj IVP SCH (18:00)
[2017-12-26] MEDS ORDERED: PPN IV SCH (18:00)
[2017-12-26] MEDS ORDERED: WATER IVPB ONE (22:51)
[2017-12-26] MEDS ORDERED: DEXTROSE 5% IVPB ONE (22:51)
[2017-12-26] MEDS ORDERED: AMIODARONE IVPB ONE (22:51)
[2017-12-26] MEDS ORDERED: SODIUM CHLORIDE 0.9% IVPB ONE (23:00)
[2017-12-26] MEDS ORDERED: AZTREONAM IVPB ONE (23:00)
--- NOTE | 2017-12-26 23:35 | CP.PCM.PN ---
Subjective - Date & Time of Evaluation Date of Evaluation: 12/26/17 Time of Evaluation: 18:20 - Subjective Subjective: Patient seen and evaluated Denies chest pain and dyspnea Cardiac cath prior to discharge Objective - Vital Signs/Intake and Output Vital Signs (last 24 hours): Temp Pulse Resp BP Pulse Ox 97.8 F 78 19 97/63 L 93 L 12/26/17 16:00 12/26/17 19:06 12/26/17 19:06 12/26/17 19:06 12/26/17 19:06 Intake and Output: 12/26/17 12/27/17 18:59 06:59 Intake Total 1437.4 316.6 Output Total 560 Balance 877.4 316.6 - Medications Medications: Current Medications Aspirin (Aspirin Supp) 300 mg [place] DAILY [facility] Last Admin: 12/26/17 11:19 Dose: 300 mg Digoxin (Lanoxin) 0.25 mg IVP DAILY@1800 [facility] Metronidazole (Flagyl) 500 mg in 100 mls @ 100 mls/hr IVPB Q8H [facility] PRN Reason: Protocol Last Admin: 12/26/17 18:05 Dose: 100 mls/hr Fluconazole (Diflucan Iv 200 Mg/100 Ml Ns) 100 mls @ 100 mls/hr IVPB DAILY [facility] PRN Reason: Protocol Last Admin: 12/26/17 11:20 Dose: 100 mls/hr Ciprofloxacin (Cipro 200mg/100ml D5w) 100 mls @ 67 mls/hr IVPB Q12H [facility] PRN Reason: Protocol Last Admin: 12/26/17 22:30 Dose: 67 mls/hr BUPIVACAINE 0.125%/0.9% NACL (Bupivacaine-Ns 0.125% On-Q Tinning Equipment Tender) 600 mls @ 4 mls/ hr IJ ONCE ONE Stop: 12/31/17 16:54 Last Admin: 12/25/17 19:38 Dose: Not Given Furosemide 100 mg/ Sodium (Chloride) 100 mls @ 5 mls/hr IV .Q20H [facility]; 5 MG/HR PRN Reason: Protocol Last Admin: 12/26/17 17:59 Dose: Not Given Heparin Sodium/Sodium Chloride (Heparin 23497 Units/250ml 1/2 Normal Saline) 25 ,000 units in 250 mls @ 7.947 mls/hr IV .Q24H PRN; Protocol; 12 UNITS/KG/HR PRN Reason: PROTOCOL Last Admin: 12/26/17 22:50 Dose: 12 units/kg/hr, 7.947 mls/hr Vancomycin/Sodium Chloride (Vancomycin 1 Gm/Ns 200 Ml) 1 gm in 200 mls @ 133.333 mls/hr IVPB Q24H [facility] PRN Reason: Protocol Last Admin: 12/26/17 12:35 Dose: 133.333 mls/hr Multivitamins/Vitamin C 10 ml/Chromium/Copper/Manganese/Seleni/Zn 1 ml/ Amino Acids 1,011 mls @ 42 mls/hr IV .Q24H [facility] Stop: 12/27/17 17:59 Last Admin: 12/26/17 18:05 Dose: 42 mls/hr Acetaminophen (Ofirmev) 100 mls @ 400 mls/hr IV Q6H [facility] Stop: 12/27/17 15:01 Last Admin: 12/26/17 22:00 Dose: 400 mls/hr Amiodarone HCl 540 mg/ (Dextrose) 510.8 mls @ 28.37 mls/hr IVPB ONCE ONE; 0.5 MG/MIN PRN Reason: Protocol Stop: 12/27/17 16:51 Insulin Aspart (Novolog) 0 unit SC Q6 [facility] PRN Reason: Protocol Last Admin: 12/26/17 18:11 Dose: 1 unit Metoprolol Tartrate (Lopressor) 2.5 mg IVP Q12H [facility] Last Admin: 12/26/17 21:30 Dose: Not Given Morphine Sulfate (Morphine) 2 mg IVP Q4 PRN PRN Reason: Pain, severe (8-10) Last Admin: 12/26/17 04:20 Dose: 2 mg Ondansetron HCl (Zofran Inj) 4 mg IVP Q6H PRN PRN Reason: Nausea/Vomiting Pantoprazole Sodium (Protonix Inj) 40 mg IVP Q12H [facility] Last Admin: 12/26/17 22:55 Dose: 40 mg - Labs Labs: 12/26/17 09:03 12/26/17 09:03 PT 12.5 SECONDS (9.7-12.2) H 12/22/17 16:18 INR 1.1 12/22/17 16:18 APTT 51 SECONDS (21-34) H D 12/26/17 16:23
[2017-12-26] MEDS ORDERED: Aztreonam 1 GM in Sodium Chloride 0.9% 100 ML IVPB SCH (23:45)
--- NOTE | 2017-12-26 23:57 | CP.PCM.PN ---
Subjective - Date & Time of Evaluation Date of Evaluation: 12/26/17 Time of Evaluation: 17:00 - Subjective Subjective: Patient seen and evaluated Denies chest pain and dyspnea Pt is for Cardiac cath prior to discharge Objective - Vital Signs/Intake and Output Vital Signs (last 24 hours): Temp Pulse Resp BP Pulse Ox 97.2 F L 77 14 125/71 94 L 12/26/17 20:00 12/26/17 23:50 12/26/17 23:50 12/26/17 23:50 12/26/17 23:50 Intake and Output: 12/26/17 12/27/17 18:59 06:59 Intake Total 1437.4 783.0 Output Total 560 200 Balance 877.4 583.0 - Medications Medications: Current Medications Aspirin (Aspirin Supp) 300 mg TX DAILY [facility] Last Admin: 12/26/17 11:19 Dose: 300 mg Digoxin (Lanoxin) 0.25 mg IVP DAILY@1800 [facility] Metronidazole (Flagyl) 500 mg in 100 mls @ 100 mls/hr IVPB Q8H [facility] PRN Reason: Protocol Last Admin: 12/26/17 18:05 Dose: 100 mls/hr Fluconazole (Diflucan Iv 200 Mg/100 Ml Ns) 100 mls @ 100 mls/hr IVPB DAILY [facility] PRN Reason: Protocol Last Admin: 12/26/17 11:20 Dose: 100 mls/hr Ciprofloxacin (Cipro 200mg/100ml D5w) 100 mls @ 67 mls/hr IVPB Q12H [facility] PRN Reason: Protocol Last Admin: 12/26/17 22:30 Dose: 67 mls/hr BUPIVACAINE 0.125%/0.9% NACL (Bupivacaine-Ns 0.125% On-Q [employer]) 600 mls @ 4 mls/ hr IJ ONCE ONE Stop: 12/31/17 16:54 Last Admin: 12/25/17 19:38 Dose: Not Given Furosemide 100 mg/ Sodium (Chloride) 100 mls @ 5 mls/hr IV .Q20H [facility]; 5 MG/HR PRN Reason: Protocol Last Admin: 12/26/17 17:59 Dose: Not Given Heparin Sodium/Sodium Chloride (Heparin 94331 Units/250ml 1/2 Normal Saline) 25 ,000 units in 250 mls @ 7.947 mls/hr IV .Q24H PRN; Protocol; 12 UNITS/KG/HR PRN Reason: PROTOCOL Last Admin: 12/26/17 22:50 Dose: 12 units/kg/hr, 7.947 mls/hr Vancomycin/Sodium Chloride (Vancomycin 1 Gm/Ns 200 Ml) 1 gm in 200 mls @ 133.333 mls/hr IVPB Q24H [facility] PRN Reason: Protocol Last Admin: 12/26/17 12:35 Dose: 133.333 mls/hr Multivitamins/Vitamin C 10 ml/Chromium/Copper/Manganese/Seleni/Zn 1 ml/ Amino Acids 1,011 mls @ 42 mls/hr IV .Q24H [facility] Stop: 12/27/17 17:59 Last Admin: 12/26/17 18:05 Dose: 42 mls/hr Acetaminophen (Ofirmev) 100 mls @ 400 mls/hr IV Q6H [facility] Stop: 12/27/17 15:01 Last Admin: 12/26/17 22:00 Dose: 400 mls/hr Amiodarone HCl 540 mg/ (Dextrose) 510.8 mls @ 28.37 mls/hr IVPB ONCE ONE; 0.5 MG/MIN PRN Reason: Protocol Stop: 12/27/17 16:51 Last Admin: 12/26/17 23:50 Dose: 28.37 mls/hr Aztreonam 1 gm/ Sodium (Chloride) 250 mls @ 100 mls/hr IVPB ONCE ONE PRN Reason: Protocol Stop: 12/27/17 01:29 Aztreonam 1 gm/ Sodium (Chloride) 100 mls @ 100 mls/hr IVPB Q12H [facility] PRN Reason: Protocol Insulin Aspart (Novolog) 0 unit SC Q6 [facility] PRN Reason: Protocol Last Admin: 12/26/17 18:11 Dose: 1 unit Metoprolol Tartrate (Lopressor) 2.5 mg IVP Q12H [facility] Last Admin: 12/26/17 21:30 Dose: Not Given Morphine Sulfate (Morphine) 2 mg IVP Q4 PRN PRN Reason: Pain, severe (8-10) Last Admin: 12/26/17 04:20 Dose: 2 mg Ondansetron HCl (Zofran Inj) 4 mg IVP Q6H PRN PRN Reason: Nausea/Vomiting Pantoprazole Sodium (Protonix Inj) 40 mg IVP Q12H [facility] Last Admin: 12/26/17 22:55 Dose: 40 mg - Labs Labs: 12/26/17 09:03 12/26/17 09:03 PT 12.5 SECONDS (9.7-12.2) H 12/22/17 16:18 INR 1.1 12/22/17 16:18 APTT 51 SECONDS (21-34) H D 12/26/17 16:23 Assessment and Plan (1) Perforated abdominal viscus Status: Acute (2) Diabetes mellitus Status: Acute (3) GERD (gastroesophageal reflux disease) Status: Acute (4) Acute non-ST elevation myocardial infarction (NSTEMI) Status: Acute
[2017-12-27] MEDS: (Novolog) Insulin Aspart, Recombinant 100 u/ml 10 ml vial SC SCH ×5 (00:05→23:45)
[2017-12-27] MEDS: metroNIDAZOLE IV 500 mg/100 ml 500 MG/100 ML BAG IVPB SCH ×3 (04:00→18:04)
[2017-12-27] MEDS: Furosemide 100 MG in Sodium Chloride 0.9% 90 ML IV SCH (04:00)
[2017-12-27 06:15] LABS: BASO % 0.4 % (0.0-2.0); EOS # 0.1 K/uL (0.0-0.7); EOS % 0.7 % (0.0-4.0); HEMOGLOBIN 10.5 g/dL (12.0-18.0); LYMPH # 0.4 K/uL (1.0-4.3); LYMPH % 4.2 % (20.0-40.0); MEAN CELL VOLUME 89.4 fL (80.0-94.0); MEAN CORPUSCULAR HEMOGLOBIN 30.3 pg (27.0-31.0); MEAN CORPUSCULAR HGB CONC 33.9 g/dL (33.0-37.0); MEAN PLATELET VOLUME 9.7 fL (7.2-11.7); MONO # 0.4 K/uL (0.0-0.8); NEUT # 9.4 K/uL (1.8-7.0); NEUT % 90.7 % (50.0-75.0); NRBC % 0.1 % (0.0-2.0); PLATELET COUNT 182 K/uL (130-400); RBC 3.48 Mil/uL (4.40-5.90); WHITE BLOOD COUNT 10.3 K/uL (4.8-10.8)
[2017-12-27 06:40] LABS: ALB/GLOB RATIO 0.8 (1.0-2.1); ALBUMIN 2.2 g/dL (3.5-5.0); ALT/SGPT 26 U/L (21-72); AST/SGOT 16 U/L (17-59); BLOOD UREA NITROGEN 48 mg/dL (9-20); GFR AFRICAN-AMERICAN 51; GFR NON-AFRICAN AMERICAN 42; HDL CHOLESTEROL 25 mg/dL (30-70); LDL CHOLESTEROL < 30 mg/dL (0-129)
[2017-12-27 07:57] LABS: BANDS 3 % (0-2); LYMPHOCYTE 4 % (20-40); MONOCYTE 9 % (0-10); PLATELET ESTIMATE NORMAL (NORMAL); TOTAL CELLS COUNTED 100
[2017-12-27 07:58] LABS: POIKILOCYTOSIS SLIGHT
[2017-12-27 07:59] LABS: LARGE PLATELETS PRESENT; OVALOCYTES SLIGHT; TOXIC GRANULATION PRESENT
[2017-12-27 08:00] LABS: NEUTROPHIL 84 % (50-75)
[2017-12-27] MEDS: Ciprofloxacin 200mg/100ml D5W 100 ML IVPB SCH ×2 (09:34→21:57)
[2017-12-27] MEDS: Fluconazole IV 200mg/100 ml NS 100 ML IVPB SCH (10:22)
--- NOTE | 2017-12-27 10:53 | CP.CCUPN ---
<Clement Vincent - Last Filed: 12/27/17 10:47> CCU Subjective - Physician Review Subjective (Free Text): 12/25/17 11:03 Patient seen and examined. Patient complaining of continued abdominal pain and some dyspnea. Denies chest pain at this time. 12/26/17 08:54 Patient seen and examined. Patient continues to complain of pain. Overnight, patient had episode of A-fib and was started on Amiodarone drip. 12/27/17 10:47 Patient seen and examined. Patient complaining of some dyspnea. Patient states that he is still in pain although it is reduced. CCU Objective - Vital Signs / Intake & Output Vital Signs (Last 4 hours): Vital Signs Temp Pulse Resp BP Pulse Ox 12/27/17 10:01 89 19 100/61 94 L 12/27/17 09:19 100 H 16 106/67 96 12/27/17 08:01 87 15 90/54 L 94 L 12/27/17 08:00 98.1 F 12/27/17 07:01 90 17 103/61 94 L Intake and Output (Last 8hrs): Intake & Output 12/26/17 12/27/17 12/27/17 22:59 06:59 14:59 Intake Total 1206.8 982.8 317.2 Output Total 560 530 Balance 646.8 452.8 317.2 Weight 140 lb 8 oz Intake: IV 250 Intake, IV Amount 956.8 982.8 317.2 Left Distal Port Forearm 83.0 Left Forearm 50.1 133.6 33.4 Left Forearm #2 200 450 100 Left Upper arm 350 Right Forearm 210 336 168 Right Hand 63.7 63.2 15.8 Output: Gastric Amount 300 Left Nares 300 Drainage 60 530 Left Nare 500 Right Lower Abdomen 60 30 Urine 200 Urine, Voided 200 Other: # Voids Urine, Voided 1 - Physical Exam Head: Positive for: Atraumatic, Normocephalic Pupils: Positive for: PERRL Extroacular Muscles: Positive for: EOMI Mouth: Positive for: Moist Mucous Membranes Nose (External): Positive for: Other (NGT in place on suction) Respiratory/Chest: Positive for: Clear to Auscultation. Negative for: Wheezes, Rales, Rhonchi Cardiovascular: Positive for: Normal S1, S2, Irregular Rhythm, Tachycardic Abdomen: Positive for: Tenderness, Guarding, Other (Abdominal dressing clean,dry ,intact) Upper Extremity: Positive for: Normal Inspection Lower Extremity: Positive for: Normal Inspection Neurological: Positive for: GCS=15 Skin: Positive for: Warm, Dry Psychiatric: Positive for: Alert, Oriented x 3 - Medications Active Medications: Active Medications Generic Name Dose Route Start Last Admin Trade Name Freq PRN Reason Stop Dose Admin Aspirin 300 mg 12/25/17 12:00 12/26/17 11:19 Aspirin Supp WV 300 mg DAILY KAROLINE Administration Digoxin 0.25 mg 12/27/17 18:00 Lanoxin IVP DAILY@1800 KAROLINE Metronidazole 500 mg in 100 mls @ 100 mls/hr 12/23/17 03:00 12/27/17 04:00 Flagyl IVPB 100 mls/hr Q8H KAROLINE Administration Protocol Fluconazole 100 mls @ 100 mls/hr 12/25/17 10:00 12/27/17 10:22 Diflucan Iv 200 Mg/100 Ml Ns IVPB 100 mls/hr DAILY KAROLINE Administration Protocol Ciprofloxacin 100 mls @ 67 mls/hr 12/25/17 09:30 12/27/17 09:34 Cipro 200mg/100ml D5w IVPB 67 mls/hr Q12H KAROLINE Administration Protocol BUPIVACAINE 0.125%/0.9% NACL 600 mls @ 4 mls/hr 12/25/17 10:55 12/25/17 19:38 Bupivacaine-Ns 0.125% On-Q [employer] IJ 12/31/17 16:54 Not Given ONCE ONE Furosemide 100 mg/ Sodium 100 mls @ 5 mls/hr 12/25/17 12:00 12/27/17 04:00 Chloride IV Not Given .Q20H KAROLINE Protocol 5 MG/HR Heparin Sodium/Sodium Chloride 25,000 units in 250 mls @ 7.947 mls/hr 03:15 12/26/17 22:50 Heparin 09993 Units/250ml 1/2 Normal Saline IV 12 units/kg/hr .Q24H PRN 7.947 mls/hr PROTOCOL Administration Protocol 12 UNITS/KG/HR Vancomycin/Sodium Chloride 1 gm in 200 mls @ 133.333 mls/hr 12/26/17 12:00 12:35 Vancomycin 1 Gm/Ns 200 Ml IVPB 133.333 mls/hr Q24H KAROLINE Administration Protocol Multivitamins/Vitamin C 10 ml/ 1,011 mls @ 42 mls/hr 12/26/17 18:00 12/26/17 18:05 Chromium/Copper/Manganese/ IV 12/27/17 17:59 42 mls/hr Seleni/Zn 1 ml/ Amino Acids .Q24H KAROLINE Administration Acetaminophen 100 mls @ 400 mls/hr 12/26/17 15:00 12/27/17 09:55 Ofirmev IV 12/27/17 15:01 400 mls/hr Q6H KAROLINE Administration Aztreonam 1 gm/ Sodium 100 mls @ 100 mls/hr 12/27/17 11:00 Chloride IVPB Q12H [facility] Protocol Potassium Chloride 20 meq in 100 mls @ 50 mls/hr 12/27/17 07:30 Potassium Chloride 20 Meq/100 Ml IVPB 12/27/17 12:29 Q3H KAROLINE Acetaminophen 100 mls @ 400 mls/hr 12/27/17 09:33 Ofirmev IV 12/28/17 09:34 Q6 PRN Pain, moderate (4-7) Insulin Aspart 0 unit 12/23/17 00:00 12/27/17 06:55 Novolog SC 6 unit Q6 [facility] Administration Protocol Metoprolol Tartrate 2.5 mg 12/25/17 09:30 12/26/17 21:30 Lopressor IVP Not Given Q12H [facility] Morphine Sulfate 2 mg 12/25/17 07:43 12/26/17 04:20 Morphine IVP 2 mg Q4 PRN Administration Pain, severe (8-10) Ondansetron HCl 4 mg 12/22/17 16:46 Zofran Inj IVP Q6H PRN Nausea/Vomiting Pantoprazole Sodium 40 mg 12/22/17 22:15 12/27/17 09:35 Protonix Inj IVP 40 mg Q12H KAROLINE Administration - Patient Studies Lab Studies: Microbiology Studies 12/22/17 16:24 Blood Culture - Preliminary Blood NO GROWTH AFTER 4 DAYS 12/22/17 16:10 Blood Culture - Preliminary Blood NO GROWTH AFTER 4 DAYS 12/22/17 22:35 Gram Stain - Final Peritoneal Fluid Body Fluid Culture - Preliminary NO GROWTH AFTER 3 DAYS Lab Studies 0412/27/17 12/27/17 Range/Units 06:04 06:04 06:04 WBC 10.3 (4.8-10.8) K/uL RBC 3.48 L (4.40-5.90) Mil/uL Hgb 10.5 L (12.0-18.0) g/dL Hct 31.1 L (35.0-51.0) % MCV 89.4 (80.0-94.0) fL MCH 30.3 (27.0-31.0) pg MCHC 33.9 (33.0-37.0) g/dL RDW 13.0 (11.5-14.5) % Plt Count 182 (130-400) K/uL MPV 9.7 (7.2-11.7) fL Neut % (Auto) 90.7 H (50.0-75.0) % Lymph % (Auto) 4.2 L (20.0-40.0) % Blanco % (Auto) 4.0 (0.0-10.0) % Eos % (Auto) 0.7 (0.0-4.0) % Baso % (Auto) 0.4 (0.0-2.0) % Neut # (Auto) 9.4 H (1.8-7.0) K/uL Lymph # (Auto) 0.4 L (1.0-4.3) K/uL Blanco # (Auto) 0.4 (0.0-0.8) K/uL Eos # (Auto) 0.1 (0.0-0.7) K/uL Baso # (Auto) 0.0 (0.0-0.2) K/uL Neutrophils % (Manual) 84 H (50-75) % Band Neutrophils % 3 H (0-2) % Lymphocytes % (Manual) 4 L (20-40) % Monocytes % (Manual) 9 (0-10) % Toxic Granulation Present Dohle Bodies Present Platelet Estimate Normal (NORMAL) Large Platelets Present Poikilocytosis (manual Slight Ovalocytes Slight APTT 54 H (21-34) SECONDS Sodium 136 (132-148) mmol/L Potassium 3.1 L (3.6-5.2) mmol/L Chloride 100 (98-107) mmol/L Carbon Dioxide 26 (22-30) mmol/L Anion Gap 13 (10-20) BUN 48 H (9-20) mg/dL Creatinine 1.6 H (0.8-1.5) mg/dL Est GFR ( Amer) 51 Est GFR (Non-Af Amer) 42 POC Glucose (mg/dL) (65-110) mg/dL Random Glucose 306 H (75-110) mg/dL Calcium 9.0 (8.6-10.4) mg/dl Phosphorus 3.3 (2.5-4.5) mg/dL Magnesium 1.8 (1.6-2.3) mg/dL Total Bilirubin 0.5 (0.2-1.3) mg/dL AST 16 L D (17-59) U/L ALT 26 (21-72) U/L Alkaline Phosphatase 51 (38-126) U/L Total Protein 5.0 L (6.3-8.3) g/dL Albumin 2.2 L (3.5-5.0) g/dL Globulin 2.8 (2.2-3.9) gm/dL Albumin/Globulin Ratio 0.8 L (1.0-2.1) Triglycerides 107 (0-149) mg/dL Cholesterol 69 (0-199) mg/dL LDL Cholesterol Direct < 30 (0-129) mg/dL HDL Cholesterol 25 L (30-70) mg/dL 12/27/17 12/26/17 12/26/17 Range/Units 05:50 23:29 17:29 WBC (4.8-10.8) K/uL RBC (4.40-5.90) Mil/uL Hgb (12.0-18.0) g/dL Hct (35.0-51.0) % MCV (80.0-94.0) fL MCH (27.0-31.0) pg MCHC (33.0-37.0) g/dL RDW (11.5-14.5) % Plt Count (130-400) K/uL MPV (7.2-11.7) fL Neut % (Auto) (50.0-75.0) % Lymph % (Auto) (20.0-40.0) % Blanco % (Auto) (0.0-10.0) % Eos % (Auto) (0.0-4.0) % Baso % (Auto) (0.0-2.0) % Neut # (Auto) (1.8-7.0) K/uL Lymph # (Auto) (1.0-4.3) K/uL Blanco # (Auto) (0.0-0.8) K/uL Eos # (Auto) (0.0-0.7) K/uL Baso # (Auto) (0.0-0.2) K/uL Neutrophils % (Manual) (50-75) % Band Neutrophils % (0-2) % Lymphocytes % (Manual) (20-40) % Monocytes % (Manual) (0-10) % Toxic Granulation Dohle Bodies Platelet Estimate (NORMAL) Large Platelets Poikilocytosis (manual Ovalocytes APTT (21-34) SECONDS Sodium (132-148) mmol/L Potassium (3.6-5.2) mmol/L Chloride (98-107) mmol/L Carbon Dioxide (22-30) mmol/L Anion Gap (10-20) BUN (9-20) mg/dL Creatinine (0.8-1.5) mg/dL Est GFR ( Amer) Est GFR (Non-Af Amer) POC Glucose (mg/dL) 301 H 254 H 211 H (65-110) mg/dL Random Glucose (75-110) mg/dL Calcium (8.6-10.4) mg/dl Phosphorus (2.5-4.5) mg/dL Magnesium (1.6-2.3) mg/dL Total Bilirubin (0.2-1.3) mg/dL AST (17-59) U/L ALT (21-72) U/L Alkaline Phosphatase (38-126) U/L Total Protein (6.3-8.3) g/dL Albumin (3.5-5.0) g/dL Globulin (2.2-3.9) gm/dL Albumin/Globulin Ratio (1.0-2.1) Triglycerides (0-149) mg/dL Cholesterol (0-199) mg/dL LDL Cholesterol Direct (0-129) mg/dL HDL Cholesterol (30-70) mg/dL 12/26/17 12/26/17 Range/Units 16:23 11:57 WBC (4.8-10.8) K/uL RBC (4.40-5.90) Mil/uL Hgb (12.0-18.0) g/dL Hct (35.0-51.0) % MCV (80.0-94.0) fL MCH (27.0-31.0) pg MCHC (33.0-37.0) g/dL RDW (11.5-14.5) % Plt Count (130-400) K/uL MPV (7.2-11.7) fL Neut % (Auto) (50.0-75.0) % Lymph % (Auto) (20.0-40.0) % Blanco % (Auto) (0.0-10.0) % Eos % (Auto) (0.0-4.0) % Baso % (Auto) (0.0-2.0) % Neut # (Auto) (1.8-7.0) K/uL Lymph # (Auto) (1.0-4.3) K/uL Blanco # (Auto) (0.0-0.8) K/uL Eos # (Auto) (0.0-0.7) K/uL Baso # (Auto) (0.0-0.2) K/uL Neutrophils % (Manual) (50-75) % Band Neutrophils % (0-2) % Lymphocytes % (Manual) (20-40) % Monocytes % (Manual) (0-10) % Toxic Granulation Dohle Bodies Platelet Estimate (NORMAL) Large Platelets Poikilocytosis (manual Ovalocytes APTT 51 H D (21-34) SECONDS Sodium (132-148) mmol/L Potassium (3.6-5.2) mmol/L Chloride (98-107) mmol/L Carbon Dioxide (22-30) mmol/L Anion Gap (10-20) BUN (9-20) mg/dL Creatinine (0.8-1.5) mg/dL Est GFR ( Amer) Est GFR (Non-Af Amer) POC Glucose (mg/dL) 261 H (65-110) mg/dL Random Glucose (75-110) mg/dL Calcium (8.6-10.4) mg/dl Phosphorus (2.5-4.5) mg/dL Magnesium (1.6-2.3) mg/dL Total Bilirubin (0.2-1.3) mg/dL AST (17-59) U/L ALT (21-72) U/L Alkaline Phosphatase (38-126) U/L Total Protein (6.3-8.3) g/dL Albumin (3.5-5.0) g/dL Globulin (2.2-3.9) gm/dL Albumin/Globulin Ratio (1.0-2.1) Triglycerides (0-149) mg/dL Cholesterol (0-199) mg/dL LDL Cholesterol Direct (0-129) mg/dL HDL Cholesterol (30-70) mg/dL Laboratory Results - last 24 hr 12/26/17 12/26/17 12/26/17 11:57 16:23 17:29 WBC RBC Hgb Hct MCV MCH MCHC RDW Plt Count MPV Neut % (Auto) Lymph % (Auto) Blanco % (Auto) Eos % (Auto) Baso % (Auto) Neut # (Auto) Lymph # (Auto) Blanco # (Auto) Eos # (Auto) Baso # (Auto) Neutrophils % (Manual) Band Neutrophils % Lymphocytes % (Manual) Monocytes % (Manual) Toxic Granulation Dohle Bodies Platelet Estimate Large Platelets Poikilocytosis (manual Ovalocytes APTT 51 H D Sodium Potassium Chloride Carbon Dioxide Anion Gap BUN Creatinine Est GFR ( Amer) Est GFR (Non-Af Amer) POC Glucose (mg/dL) 261 H 211 H Random Glucose Calcium Phosphorus Magnesium Total Bilirubin AST ALT Alkaline Phosphatase Total Protein Albumin Globulin Albumin/Globulin Ratio Triglycerides Cholesterol LDL Cholesterol Direct HDL Cholesterol 12/26/17 12/27/17 12/27/17 23:29 05:50 06:04 WBC 10.3 RBC 3.48 L Hgb 10.5 L Hct 31.1 L MCV 89.4 MCH 30.3 MCHC 33.9 RDW 13.0 Plt Count 182 MPV 9.7 Neut % (Auto) 90.7 H Lymph % (Auto) 4.2 L Blanco % (Auto) 4.0 Eos % (Auto) 0.7 Baso % (Auto) 0.4 Neut # (Auto) 9.4 H Lymph # (Auto) 0.4 L Blanco # (Auto) 0.4 Eos # (Auto) 0.1 Baso # (Auto) 0.0 Neutrophils % (Manual) 84 H Band Neutrophils % 3 H Lymphocytes % (Manual) 4 L Monocytes % (Manual) 9 Toxic Granulation Present Dohle Bodies Present Platelet Estimate Normal Large Platelets Present Poikilocytosis (manual Slight Ovalocytes Slight APTT Sodium Potassium Chloride Carbon Dioxide Anion Gap BUN Creatinine Est GFR ( Amer) Est GFR (Non-Af Amer) POC Glucose (mg/dL) 254 H 301 H Random Glucose Calcium Phosphorus Magnesium Total Bilirubin AST ALT Alkaline Phosphatase Total Protein Albumin Globulin Albumin/Globulin Ratio Triglycerides Cholesterol LDL Cholesterol Direct HDL Cholesterol 12/27/17 12/27/17 06:04 06:04 WBC RBC Hgb Hct MCV MCH MCHC RDW Plt Count MPV Neut % (Auto) Lymph % (Auto) Blanco % (Auto) Eos % (Auto) Baso % (Auto) Neut # (Auto) Lymph # (Auto) Blanco # (Auto) Eos # (Auto) Baso # (Auto) Neutrophils % (Manual) Band Neutrophils % Lymphocytes % (Manual) Monocytes % (Manual) Toxic Granulation Dohle Bodies Platelet Estimate Large Platelets Poikilocytosis (manual Ovalocytes APTT 54 H Sodium 136 Potassium 3.1 L Chloride 100 Carbon Dioxide 26 Anion Gap 13 BUN 48 H Creatinine 1.6 H Est GFR ( Amer) 51 Est GFR (Non-Af Amer) 42 POC Glucose (mg/dL) Random Glucose 306 H Calcium 9.0 Phosphorus 3.3 Magnesium 1.8 Total Bilirubin 0.5 AST 16 L D ALT 26 Alkaline Phosphatase 51 Total Protein 5.0 L Albumin 2.2 L Globulin 2.8 Albumin/Globulin Ratio 0.8 L Triglycerides 107 Cholesterol 69 LDL Cholesterol Direct < 30 HDL Cholesterol 25 L Fingerstick Blood Sugar Results: 301 Critical Care Progress Note - Nutrition Nutrition: Nutrition Category Date Time Status NPO Diet [DIET] Diets 12/22/17 Dinner Active Assessment/Plan - Assessment and Plan (Free Text) Assessment: This is a 77 year old male with PMHx diabetes, hypertension, hypercholesterolemia admitted with perforated duodenal ulcer status post exploratory laparotomy with Repair of peptic perforation with Colin patch on . POD #5 Neuro Awake, verbal Cardio Elevated troponins now downtrending Likely CHF exacerbation Cardiology consulted Echo ordered Lopressor 2.5 mg IV Q12H with holding parameters Lasix drip because patient has borderline BP ASA 300 mg WV Heparin drip Digoxin 0.25 mg IV daily Per cardiology, unable to perform cardiac catheterization until patient can take medication by mouth as he will need to be loaded on Plavix first Pulm Saturating well on nasal cannula Lasix drip to improve congestion but is held intermittently due to hypotension GI NPO for now until surgery clears Protonix 40 mg IV Q12 PPN ordered by surgery at low rate Endocrine Accuchecks Q6H Novolog sliding scale Q6H Infectious Disease Cipro 200 mg IV Q12 due to renal status Flagyl 500 mg IV Q8H ID consulted Vancomycin 1 gm Q24H started on 12/26/17 Prophylaxis Heparin drip Protonix 40 mg IV Q12 PPN ordered by surgery at low rate Disposition: Will place central line later today Discussed with Dr. Faye <Obed Faye S - Last Filed: 12/27/17 17:51> CCU Objective - Vital Signs / Intake & Output Vital Signs (Last 4 hours): Vital Signs Temp Pulse Resp BP Pulse Ox 12/27/17 17:10 109 H 19 124/75 92 L 12/27/17 17:06 107 H 24 81/57 L 88 L 12/27/17 17:01 93 H 15 98 12/27/17 16:01 90 15 94/59 L 98 12/27/17 16:00 97.3 F L 103 H 15 98 12/27/17 15:02 91/67 L 12/27/17 15:00 94 H 22 94 L 12/27/17 14:01 79 14 98/62 L 95 12/27/17 14:00 89 19 94 L Intake and Output (Last 8hrs): Intake & Output 12/27/17 12/27/17 12/27/17 06:59 14:59 22:59 Intake Total 982.8 1260.2 341.8 Output Total 530 275 Balance 452.8 1260.2 66.8 Weight 140 lb 8 oz Intake: IV 75 0 Intake, IV Amount 982.8 1185.2 341.8 Left Forearm 133.6 533.4 Left Forearm #2 450 100 Left Medial Port 126 126 Left Proximal Port 200 200 Internal Jugular Right Forearm 336 210 Right Hand 63.2 15.8 15.8 Output: Drainage 530 275 Left Nare 500 275 Right Lower Abdomen 30 - Medications Active Medications: Active Medications Generic Name Dose Route Start Last Admin Trade Name Freq PRN Reason Stop Dose Admin Aspirin 300 mg 12/25/17 12:00 12/27/17 11:37 Aspirin Supp WV 300 mg DAILY KAROLINE Administration Digoxin 0.25 mg 12/27/17 18:00 12/27/17 17:23 Lanoxin IVP 0.25 mg DAILY@1800 KAROLINE Administration Metronidazole 500 mg in 100 mls @ 100 mls/hr 12/23/17 03:00 12/27/17 11:19 Flagyl IVPB 100 mls/hr Q8H KAROLINE Administration Protocol Fluconazole 100 mls @ 100 mls/hr 12/25/17 10:00 12/27/17 10:22 Diflucan Iv 200 Mg/100 Ml Ns IVPB 100 mls/hr DAILY KAROLINE Administration Protocol Ciprofloxacin 100 mls @ 67 mls/hr 12/25/17 09:30 12/27/17 09:34 Cipro 200mg/100ml D5w IVPB 67 mls/hr Q12H KAROLINE Administration Protocol BUPIVACAINE 0.125%/0.9% NACL 600 mls @ 4 mls/hr 12/25/17 10:55 12/25/17 19:38 Bupivacaine-Ns 0.125% On-Q [employer] IJ 12/31/17 16:54 Not Given ONCE ONE Furosemide 100 mg/ Sodium 100 mls @ 5 mls/hr 12/25/17 12:00 12/27/17 04:00 Chloride IV Not Given .Q20H KAROLINE Protocol 5 MG/HR Heparin Sodium/Sodium Chloride 25,000 units in 250 mls @ 7.947 mls/hr 03:15 12/27/17 15:45 Heparin 88928 Units/250ml 1/2 Normal Saline IV 12 units/kg/hr .Q24H PRN 7.947 mls/hr PROTOCOL Titration Protocol 12 UNITS/KG/HR Vancomycin/Sodium Chloride 1 gm in 200 mls @ 133.333 mls/hr 12/26/17 12:00 11:37 Vancomycin 1 Gm/Ns 200 Ml IVPB 133.333 mls/hr Q24H KAROLINE Administration Protocol Multivitamins/Vitamin C 10 ml/ 1,011 mls @ 42 mls/hr 12/26/17 18:00 12/26/17 18:05 Chromium/Copper/Manganese/ IV 12/27/17 17:59 42 mls/hr Seleni/Zn 1 ml/ Amino Acids .Q24H KAROLINE Administration Aztreonam 1 gm/ Sodium 100 mls @ 100 mls/hr 12/27/17 11:00 12/27/17 13:00 Chloride IVPB 100 mls/hr Q12H [facility] Administration Protocol Acetaminophen 100 mls @ 400 mls/hr 12/27/17 09:33 Ofirmev IV 12/28/17 09:34 Q6 PRN Pain, moderate (4-7) Multivitamins/Vitamin C 10 ml/ 1,011 mls @ 42 mls/hr 12/27/17 18:00 12/27/17 17:20 Chromium/Copper/Manganese/ IV 12/28/17 17:59 42 mls/hr Zinc 1 ml/ Amino Acids .Q24H ONE Administration Insulin Aspart 0 unit 12/27/17 13:17 Novolog SC Q6 [facility] Protocol Metoprolol Tartrate 2.5 mg 12/25/17 09:30 12/27/17 11:20 Lopressor IVP Not Given Q12H [facility] Morphine Sulfate 2 mg 12/25/17 07:43 12/27/17 11:19 Morphine IVP 2 mg Q4 PRN Administration Pain, severe (8-10) Ondansetron HCl 4 mg 12/22/17 16:46 Zofran Inj IVP Q6H PRN Nausea/Vomiting Pantoprazole Sodium 40 mg 12/22/17 22:15 12/27/17 09:35 Protonix Inj IVP 40 mg Q12H [facility] Administration - Patient Studies Lab Studies: Microbiology Studies 12/26/17 11:30 Blood Culture - Preliminary Blood NO GROWTH AFTER 24 HOURS 12/26/17 11:00 Blood Culture - Preliminary Blood NO GROWTH AFTER 24 HOURS 12/22/17 22:35 Gram Stain - Final Peritoneal Fluid Body Fluid Culture - Final No growth. 12/22/17 16:24 Blood Culture - Preliminary Blood NO GROWTH AFTER 4 DAYS 12/22/17 16:10 Blood Culture - Preliminary Blood NO GROWTH AFTER 4 DAYS Lab Studies 12/27/17 12/27/17 12/27/17 Range/Units 13:05 11:15 06:04 WBC (4.8-10.8) K/uL RBC (4.40-5.90) Mil/uL Hgb (12.0-18.0) g/dL Hct (35.0-51.0) % MCV (80.0-94.0) fL MCH (27.0-31.0) pg MCHC (33.0-37.0) g/dL RDW (11.5-14.5) % Plt Count (130-400) K/uL MPV (7.2-11.7) fL Neut % (Auto) (50.0-75.0) % Lymph % (Auto) (20.0-40.0) % Blanco % (Auto) (0.0-10.0) % Eos % (Auto) (0.0-4.0) % Baso % (Auto) (0.0-2.0) % Neut # (Auto) (1.8-7.0) K/uL Lymph # (Auto) (1.0-4.3) K/uL Blanco # (Auto) (0.0-0.8) K/uL Eos # (Auto) (0.0-0.7) K/uL Baso # (Auto) (0.0-0.2) K/uL Neutrophils % (Manual) (50-75) % Band Neutrophils % (0-2) % Lymphocytes % (Manual) (20-40) % Monocytes % (Manual) (0-10) % Toxic Granulation Dohle Bodies Platelet Estimate (NORMAL) Large Platelets Poikilocytosis (manual Ovalocytes APTT 54 H (21-34) SECONDS Sodium (132-148) mmol/L Potassium (3.6-5.2) mmol/L Chloride (98-107) mmol/L Carbon Dioxide (22-30) mmol/L Anion Gap (10-20) BUN (9-20) mg/dL Creatinine (0.8-1.5) mg/dL Est GFR ( Amer) Est GFR (Non-Af Amer) POC Glucose (mg/dL) 267 H (65-110) mg/dL Random Glucose (75-110) mg/dL Calcium (8.6-10.4) mg/dl Phosphorus (2.5-4.5) mg/dL Magnesium (1.6-2.3) mg/dL Total Bilirubin (0.2-1.3) mg/dL AST (17-59) U/L ALT (21-72) U/L Alkaline Phosphatase (38-126) U/L Troponin I 2.2300 H* (0.00-0.120) ng/mL Total Protein (6.3-8.3) g/dL Albumin (3.5-5.0) g/dL Globulin (2.2-3.9) gm/dL Albumin/Globulin Ratio (1.0-2.1) Triglycerides (0-149) mg/dL Cholesterol (0-199) mg/dL LDL Cholesterol Direct (0-129) mg/dL HDL Cholesterol (30-70) mg/dL 12/27/17 12/27/17 12/27/17 Range/Units 06:04 06:04 05:50 WBC 10.3 (4.8-10.8) K/uL RBC 3.48 L (4.40-5.90) Mil/uL Hgb 10.5 L (12.0-18.0) g/dL Hct 31.1 L (35.0-51.0) % MCV 89.4 (80.0-94.0) fL MCH 30.3 (27.0-31.0) pg MCHC 33.9 (33.0-37.0) g/dL RDW 13.0 (11.5-14.5) % Plt Count 182 (130-400) K/uL MPV 9.7 (7.2-11.7) fL Neut % (Auto) 90.7 H (50.0-75.0) % Lymph % (Auto) 4.2 L (20.0-40.0) % Blanco % (Auto) 4.0 (0.0-10.0) % Eos % (Auto) 0.7 (0.0-4.0) % Baso % (Auto) 0.4 (0.0-2.0) % Neut # (Auto) 9.4 H (1.8-7.0) K/uL Lymph # (Auto) 0.4 L (1.0-4.3) K/uL Blanco # (Auto) 0.4 (0.0-0.8) K/uL Eos # (Auto) 0.1 (0.0-0.7) K/uL Baso # (Auto) 0.0 (0.0-0.2) K/uL Neutrophils % (Manual) 84 H (50-75) % Band Neutrophils % 3 H (0-2) % Lymphocytes % (Manual) 4 L (20-40) % Monocytes % (Manual) 9 (0-10) % Toxic Granulation Present Dohle Bodies Present Platelet Estimate Normal (NORMAL) Large Platelets Present Poikilocytosis (manual Slight Ovalocytes Slight APTT (21-34) SECONDS Sodium 136 (132-148) mmol/L Potassium 3.1 L (3.6-5.2) mmol/L Chloride 100 (98-107) mmol/L Carbon Dioxide 26 (22-30) mmol/L Anion Gap 13 (10-20) BUN 48 H (9-20) mg/dL Creatinine 1.6 H (0.8-1.5) mg/dL Est GFR ( Amer) 51 Est GFR (Non-Af Amer) 42 POC Glucose (mg/dL) 301 H (65-110) mg/dL Random Glucose 306 H (75-110) mg/dL Calcium 9.0 (8.6-10.4) mg/dl Phosphorus 3.3 (2.5-4.5) mg/dL Magnesium 1.8 (1.6-2.3) mg/dL Total Bilirubin 0.5 (0.2-1.3) mg/dL AST 16 L D (17-59) U/L ALT 26 (21-72) U/L Alkaline Phosphatase 51 (38-126) U/L Troponin I (0.00-0.120) ng/mL Total Protein 5.0 L (6.3-8.3) g/dL Albumin 2.2 L (3.5-5.0) g/dL Globulin 2.8 (2.2-3.9) gm/dL Albumin/Globulin Ratio 0.8 L (1.0-2.1) Triglycerides 107 (0-149) mg/dL Cholesterol 69 (0-199) mg/dL LDL Cholesterol Direct < 30 (0-129) mg/dL HDL Cholesterol 25 L (30-70) mg/dL 12/26/17 12/26/17 Range/Units 23:29 17:29 WBC (4.8-10.8) K/uL RBC (4.40-5.90) Mil/uL Hgb (12.0-18.0) g/dL Hct (35.0-51.0) % MCV (80.0-94.0) fL MCH (27.0-31.0) pg MCHC (33.0-37.0) g/dL RDW (11.5-14.5) % Plt Count (130-400) K/uL MPV (7.2-11.7) fL Neut % (Auto) (50.0-75.0) % Lymph % (Auto) (20.0-40.0) % Blanco % (Auto) (0.0-10.0) % Eos % (Auto) (0.0-4.0) % Baso % (Auto) (0.0-2.0) % Neut # (Auto) (1.8-7.0) K/uL Lymph # (Auto) (1.0-4.3) K/uL Blanco # (Auto) (0.0-0.8) K/uL Eos # (Auto) (0.0-0.7) K/uL Baso # (Auto) (0.0-0.2) K/uL Neutrophils % (Manual) (50-75) % Band Neutrophils % (0-2) % Lymphocytes % (Manual) (20-40) % Monocytes % (Manual) (0-10) % Toxic Granulation Dohle Bodies Platelet Estimate (NORMAL) Large Platelets Poikilocytosis (manual Ovalocytes APTT (21-34) SECONDS Sodium (132-148) mmol/L Potassium (3.6-5.2) mmol/L Chloride (98-107) mmol/L Carbon Dioxide (22-30) mmol/L Anion Gap (10-20) BUN (9-20) mg/dL Creatinine (0.8-1.5) mg/dL Est GFR ( Amer) Est GFR (Non-Af Amer) POC Glucose (mg/dL) 254 H 211 H (65-110) mg/dL Random Glucose (75-110) mg/dL Calcium (8.6-10.4) mg/dl Phosphorus (2.5-4.5) mg/dL Magnesium (1.6-2.3) mg/dL Total Bilirubin (0.2-1.3) mg/dL AST (17-59) U/L ALT (21-72) U/L Alkaline Phosphatase (38-126) U/L Troponin I (0.00-0.120) ng/mL Total Protein (6.3-8.3) g/dL Albumin (3.5-5.0) g/dL Globulin (2.2-3.9) gm/dL Albumin/Globulin Ratio (1.0-2.1) Triglycerides (0-149) mg/dL Cholesterol (0-199) mg/dL LDL Cholesterol Direct (0-129) mg/dL HDL Cholesterol (30-70) mg/dL Laboratory Results - last 24 hr 12/26/17 12/26/17 12/27/17 17:29 23:29 05:50 WBC RBC Hgb Hct MCV MCH MCHC RDW Plt Count MPV Neut % (Auto) Lymph % (Auto) Blanco % (Auto) Eos % (Auto) Baso % (Auto) Neut # (Auto) Lymph # (Auto) Blanco # (Auto) Eos # (Auto) Baso # (Auto) Neutrophils % (Manual) Band Neutrophils % Lymphocytes % (Manual) Monocytes % (Manual) Toxic Granulation Dohle Bodies Platelet Estimate Large Platelets Poikilocytosis (manual Ovalocytes APTT Sodium Potassium Chloride Carbon Dioxide Anion Gap BUN Creatinine Est GFR ( Amer) Est GFR (Non-Af Amer) POC Glucose (mg/dL) 211 H 254 H 301 H Random Glucose Calcium Phosphorus Magnesium Total Bilirubin AST ALT Alkaline Phosphatase Troponin I Total Protein Albumin Globulin Albumin/Globulin Ratio Triglycerides Cholesterol LDL Cholesterol Direct HDL Cholesterol 12/27/17 12/27/17 12/27/17 06:04 06:04 06:04 WBC 10.3 RBC 3.48 L Hgb 10.5 L Hct 31.1 L MCV 89.4 MCH 30.3 MCHC 33.9 RDW 13.0 Plt Count 182 MPV 9.7 Neut % (Auto) 90.7 H Lymph % (Auto) 4.2 L Blanco % (Auto) 4.0 Eos % (Auto) 0.7 Baso % (Auto) 0.4 Neut # (Auto) 9.4 H Lymph # (Auto) 0.4 L Blanco # (Auto) 0.4 Eos # (Auto) 0.1 Baso # (Auto) 0.0 Neutrophils % (Manual) 84 H Band Neutrophils % 3 H Lymphocytes % (Manual) 4 L Monocytes % (Manual) 9 Toxic Granulation Present Dohle Bodies Present Platelet Estimate Normal Large Platelets Present Poikilocytosis (manual Slight Ovalocytes Slight APTT 54 H Sodium 136 Potassium 3.1 L Chloride 100 Carbon Dioxide 26 Anion Gap 13 BUN 48 H Creatinine 1.6 H Est GFR ( Amer) 51 Est GFR (Non-Af Amer) 42 POC Glucose (mg/dL) Random Glucose 306 H Calcium 9.0 Phosphorus 3.3 Magnesium 1.8 Total Bilirubin 0.5 AST 16 L D ALT 26 Alkaline Phosphatase 51 Troponin I Total Protein 5.0 L Albumin 2.2 L Globulin 2.8 Albumin/Globulin Ratio 0.8 L Triglycerides 107 Cholesterol 69 LDL Cholesterol Direct < 30 HDL Cholesterol 25 L 12/27/17 12/27/17 11:15 13:05 WBC RBC Hgb Hct MCV MCH MCHC RDW Plt Count MPV Neut % (Auto) Lymph % (Auto) Blanco % (Auto) Eos % (Auto) Baso % (Auto) Neut # (Auto) Lymph # (Auto) Blanco # (Auto) Eos # (Auto) Baso # (Auto) Neutrophils % (Manual) Band Neutrophils % Lymphocytes % (Manual) Monocytes % (Manual) Toxic Granulation Dohle Bodies Platelet Estimate Large Platelets Poikilocytosis (manual Ovalocytes APTT Sodium Potassium Chloride Carbon Dioxide Anion Gap BUN Creatinine Est GFR ( Amer) Est GFR (Non-Af Amer) POC Glucose (mg/dL) 267 H Random Glucose Calcium Phosphorus Magnesium Total Bilirubin AST ALT Alkaline Phosphatase Troponin I 2.2300 H* Total Protein Albumin Globulin Albumin/Globulin Ratio Triglycerides Cholesterol LDL Cholesterol Direct HDL Cholesterol Critical Care Progress Note - Nutrition Nutrition: Nutrition Category Date Time Status Liquid Diet [DIET] Diets 12/27/17 Lunch Active Attending/Attestation - Attestation I have personally seen and examined this patient.: Yes I have fully participated in the care of the patient.: Yes I have reviewed all pertinent clinical information: Yes Notes (Text): 12/27/17 17:38 Patient seen and examined in the intensive care unit. Case discussed with staff in the morning around Triple lumen catheter inserted and left internal jugular vein under aseptic conditions Continue patient on IV antibiotics as per infectious disease Seen by cardiology and the plan is for cardiac cath once patient is stable Patient is off amiodarone drip Continue heparin drip Monitor renal function
[2017-12-27] MEDS: Morphine 4 MG/ML VIAL IVP PRN (11:19)
[2017-12-27] MEDS: Metoprolol 1 mg/ml Inj IVP SCH ×2 (11:20→21:56)
[2017-12-27] MEDS: Vancomycin 1 gm/NS 200 ml 1 GM/200 ML BAG IVPB SCH (11:37)
[2017-12-27] MEDS ORDERED: PPN#2 IV ONE ×3 (12:00→18:00)
--- NOTE | 2017-12-27 12:05 | CP.PCM.PN ---
<Rafi Ferrari - Last Filed: 12/27/17 17:39> Subjective - Date & Time of Evaluation Date of Evaluation: 12/27/17 Time of Evaluation: 12:03 - Subjective Subjective: PGY-[address] Milan's service: Pt seen and examined at bedside. Nursing reports not acute events overnight. Patient found lying in chair at bedside. Patient only complains that his mouth is dry but denies chest pain, palpitations, SOB Objective - Vital Signs/Intake and Output Vital Signs (last 24 hours): Temp Pulse Resp BP Pulse Ox 98.1 F 95 H 20 116/60 94 L 12/27/17 08:00 12/27/17 11:02 12/27/17 11:02 12/27/17 11:02 12/27/17 11:02 Intake and Output: 12/27/17 12/27/17 06:59 18:59 Intake Total 1699.2 659.2 Output Total 730 Balance 969.2 659.2 - Medications Medications: Current Medications Aspirin (Aspirin Supp) 300 mg [place] DAILY [facility]INE Last Admin: 12/27/17 11:37 Dose: 300 mg Digoxin (Lanoxin) 0.25 mg IVP DAILY@1800 [facility] Metronidazole (Flagyl) 500 mg in 100 mls @ 100 mls/hr IVPB Q8H [facility] PRN Reason: Protocol Last Admin: 12/27/17 11:19 Dose: 100 mls/hr Fluconazole (Diflucan Iv 200 Mg/100 Ml Ns) 100 mls @ 100 mls/hr IVPB DAILY [facility] PRN Reason: Protocol Last Admin: 12/27/17 10:22 Dose: 100 mls/hr Ciprofloxacin (Cipro 200mg/100ml D5w) 100 mls @ 67 mls/hr IVPB Q12H [facility] PRN Reason: Protocol Last Admin: 12/27/17 09:34 Dose: 67 mls/hr BUPIVACAINE 0.125%/0.9% NACL (Bupivacaine-Ns 0.125% On-Q Electronic Induction Hardener) 600 mls @ 4 mls/ hr IJ ONCE ONE Stop: 12/31/17 16:54 Last Admin: 12/25/17 19:38 Dose: Not Given Furosemide 100 mg/ Sodium (Chloride) 100 mls @ 5 mls/hr IV .Q20H [facility]; 5 MG/HR PRN Reason: Protocol Last Admin: 12/27/17 04:00 Dose: Not Given Heparin Sodium/Sodium Chloride (Heparin 85952 Units/250ml 1/2 Normal Saline) 25 ,000 units in 250 mls @ 7.947 mls/hr IV .Q24H PRN; Protocol; 12 UNITS/KG/HR PRN Reason: PROTOCOL Last Admin: 12/26/17 22:50 Dose: 12 units/kg/hr, 7.947 mls/hr Vancomycin/Sodium Chloride (Vancomycin 1 Gm/Ns 200 Ml) 1 gm in 200 mls @ 133.333 mls/hr IVPB Q24H [facility] PRN Reason: Protocol Last Admin: 12/27/17 11:37 Dose: 133.333 mls/hr Multivitamins/Vitamin C 10 ml/Chromium/Copper/Manganese/Seleni/Zn 1 ml/ Amino Acids 1,011 mls @ 42 mls/hr IV .Q24H [facility] Stop: 12/27/17 17:59 Last Admin: 12/26/17 18:05 Dose: 42 mls/hr Acetaminophen (Ofirmev) 100 mls @ 400 mls/hr IV Q6H [facility] Stop: 12/27/17 15:01 Last Admin: 12/27/17 09:55 Dose: 400 mls/hr Aztreonam 1 gm/ Sodium (Chloride) 100 mls @ 100 mls/hr IVPB Q12H [facility] PRN Reason: Protocol Potassium Chloride (Potassium Chloride 20 Meq/100 Ml) 20 meq in 100 mls @ 50 mls/hr IVPB Q3H [facility] Stop: 12/27/17 12:29 Acetaminophen (Ofirmev) 100 mls @ 400 mls/hr IV Q6 PRN PRN Reason: Pain, moderate (4-7) Stop: 12/28/17 09:34 Insulin Aspart (Novolog) 0 unit SC Q6 [facility] PRN Reason: Protocol Last Admin: 12/27/17 11:38 Dose: 4 unit Metoprolol Tartrate (Lopressor) 2.5 mg IVP Q12H [facility] Last Admin: 12/27/17 11:20 Dose: Not Given Morphine Sulfate (Morphine) 2 mg IVP Q4 PRN PRN Reason: Pain, severe (8-10) Last Admin: 12/27/17 11:19 Dose: 2 mg Ondansetron HCl (Zofran Inj) 4 mg IVP Q6H PRN PRN Reason: Nausea/Vomiting Pantoprazole Sodium (Protonix Inj) 40 mg IVP Q12H [facility] Last Admin: 12/27/17 09:35 Dose: 40 mg - Labs Labs: 12/27/17 06:04 12/27/17 06:04 PT 12.5 SECONDS (9.7-12.2) H 12/22/17 16:18 INR 1.1 12/22/17 16:18 APTT 54 SECONDS (21-34) H 12/27/17 06:04 - Constitutional Appears: Older Than Stated Age, Chronically Ill - Head Exam Head Exam: ATRAUMATIC, NORMAL INSPECTION - Eye Exam Eye Exam: EOMI. absent: Scleral icterus Pupil Exam: PERRL - ENT Exam ENT Exam: Mucous Membranes Dry (NGT suction in place) - Respiratory Exam Respiratory Exam: Clear to Ausculation Bilateral, NORMAL BREATHING PATTERN - Cardiovascular Exam Cardiovascular Exam: Irregular Rhythm, +S1, +S2 - GI/Abdominal Exam GI & Abdominal Exam: Soft, Normal Bowel Sounds Additional comments: Dressing on abdomen d/c/i - Extremities Exam Extremities Exam: Normal Inspection. absent: Pedal Edema - Back Exam Back Exam: absent: CVA tenderness (L), CVA tenderness (R) - Neurological Exam Neurological Exam: Alert, Awake, Oriented x3 - Psychiatric Exam Psychiatric exam: Normal Affect - Skin Skin Exam: Normal Color, Warm Assessment and Plan - Assessment and Plan (Free Text) Plan: Elevated troponins/NSTEMI Continue heparin drip Following EKG/troponin daily to monitor for worsening blockage Patient will need cardiac cath; potentially on Monday, if he is able to tolerate oral feeds - Pt will need to be loaded with plavix first - f/u troponin - anticipate downtrending ECHO (12/25/17): EF 65-70%, mild LVH. Grade I abnml relaxation pattern. Mild Aortic regurgitation. ASA 300mg IL Afib/HTN Digoxin 0.25mg IV Daily Lopressor 2.5mg IV Q12H Discussed with Dr. Bjorn Ferrari PGY-2 <Brandon Milan - Last Filed: 12/27/17 22:03> Objective - Vital Signs/Intake and Output Vital Signs (last 24 hours): Temp Pulse Resp BP Pulse Ox 97.3 F L 87 19 108/59 L 94 L 12/27/17 16:00 12/27/17 19:01 12/27/17 19:01 12/27/17 19:01 12/27/17 19:01 Intake and Output: 12/27/17 12/28/17 18:59 06:59 Intake Total 1851.9 49.9 Output Total 915 40 Balance 936.9 9.9 - Medications Medications: Current Medications Aspirin (Aspirin Supp) 300 mg [place] DAILY KAROLINE Last Admin: 12/27/17 11:37 Dose: 300 mg Digoxin (Lanoxin) 0.25 mg IVP DAILY@1800 [facility] Last Admin: 12/27/17 17:23 Dose: 0.25 mg Metronidazole (Flagyl) 500 mg in 100 mls @ 100 mls/hr IVPB Q8H [facility] PRN Reason: Protocol Last Admin: 12/27/17 18:04 Dose: 100 mls/hr Fluconazole (Diflucan Iv 200 Mg/100 Ml Ns) 100 mls @ 100 mls/hr IVPB DAILY [facility] PRN Reason: Protocol Last Admin: 12/27/17 10:22 Dose: 100 mls/hr Ciprofloxacin (Cipro 200mg/100ml D5w) 100 mls @ 67 mls/hr IVPB Q12H [facility] PRN Reason: Protocol Last Admin: 12/27/17 21:57 Dose: 67 mls/hr BUPIVACAINE 0.125%/0.9% NACL (Bupivacaine-Ns 0.125% On-Q Electronic Induction Hardener) 600 mls @ 4 mls/ hr IJ ONCE ONE Stop: 12/31/17 16:54 Last Admin: 12/25/17 19:38 Dose: Not Given Furosemide 100 mg/ Sodium (Chloride) 100 mls @ 5 mls/hr IV .Q20H [facility]; 5 MG/HR PRN Reason: Protocol Last Admin: 12/27/17 04:00 Dose: Not Given Heparin Sodium/Sodium Chloride (Heparin 79678 Units/250ml 1/2 Normal Saline) 25 ,000 units in 250 mls @ 7.947 mls/hr IV .Q24H PRN; Protocol; 12 UNITS/KG/HR PRN Reason: PROTOCOL Last Titration: 12/27/17 15:45 Dose: 12 units/kg/hr, 7.947 mls/hr Vancomycin/Sodium Chloride (Vancomycin 1 Gm/Ns 200 Ml) 1 gm in 200 mls @ 133.333 mls/hr IVPB Q24H [facility] PRN Reason: Protocol Last Admin: 12/27/17 11:37 Dose: 133.333 mls/hr Aztreonam 1 gm/ Sodium (Chloride) 100 mls @ 100 mls/hr IVPB Q12H [facility] PRN Reason: Protocol Last Admin: 12/27/17 22:00 Dose: 100 mls/hr Acetaminophen (Ofirmev) 100 mls @ 400 mls/hr IV Q6 PRN PRN Reason: Pain, moderate (4-7) Stop: 12/28/17 09:34 Multivitamins/Vitamin C 10 ml/Chromium/Copper/Manganese/Zinc 1 ml/ Amino Acids 1,011 mls @ 42 mls/hr IV .Q24H ONE Stop: 12/28/17 17:59 Last Admin: 12/27/17 17:20 Dose: 42 mls/hr Insulin Aspart (Novolog) 0 unit SC Q6 [facility] PRN Reason: Protocol Last Admin: 12/27/17 18:03 Dose: 4 unit Metoprolol Tartrate (Lopressor) 2.5 mg IVP Q12H [facility] Last Admin: 12/27/17 21:56 Dose: 2.5 mg Morphine Sulfate (Morphine) 2 mg IVP Q4 PRN PRN Reason: Pain, severe (8-10) Last Admin: 12/27/17 11:19 Dose: 2 mg Ondansetron HCl (Zofran Inj) 4 mg IVP Q6H PRN PRN Reason: Nausea/Vomiting Pantoprazole Sodium (Protonix Inj) 40 mg IVP Q12H [facility] Last Admin: 12/27/17 21:56 Dose: 40 mg - Labs Labs: 12/27/17 06:04 12/27/17 06:04 PT 12.5 SECONDS (9.7-12.2) H 12/22/17 16:18 INR 1.1 12/22/17 16:18 APTT 54 SECONDS (21-34) H 12/27/17 06:04 Assessment and Plan - Assessment and Plan (Free Text) Plan: Patient seen and evaluated personally by me Plan of care d/w the medical social consultant and as documented
[2017-12-27] MEDS: Aztreonam 1 GM in Sodium Chloride 0.9% 100 ML IVPB SCH ×2 (13:00→22:00)
--- NOTE | 2017-12-27 13:16 | CP.PCM.PN ---
<Albertina Tejada - Last Filed: 12/27/17 13:17> Subjective - Date & Time of Evaluation Date of Evaluation: 12/27/17 Time of Evaluation: 13:14 - Subjective Subjective: General surgery progress note for Dr. Villa-Albertina Tejada, PGY-1 Pt S & E at bedside. Pt reports continued ab pain. Pt off cardizem, now on heparin drip for NSTEMI- per ICU, cardio with plans to cath on Monday. Currently on PPN. Denies N & V, F & C, CP, SOB, BM or flatus, other complaints. Constantino with 55 cc serosanguinous output/12H. Objective - Vital Signs/Intake and Output Vital Signs (last 24 hours): Temp Pulse Resp BP Pulse Ox 98.1 F 95 H 20 116/60 94 L 12/27/17 08:00 12/27/17 11:02 12/27/17 11:02 12/27/17 11:02 12/27/17 11:02 Intake and Output: 12/27/17 12/27/17 06:59 18:59 Intake Total 1699.2 659.2 Output Total 730 Balance 969.2 659.2 - Medications Medications: Current Medications Aspirin (Aspirin Supp) 300 mg [place] DAILY KAROLINE Last Admin: 12/27/17 11:37 Dose: 300 mg Digoxin (Lanoxin) 0.25 mg IVP DAILY@1800 [facility] Metronidazole (Flagyl) 500 mg in 100 mls @ 100 mls/hr IVPB Q8H [facility] PRN Reason: Protocol Last Admin: 12/27/17 11:19 Dose: 100 mls/hr Fluconazole (Diflucan Iv 200 Mg/100 Ml Ns) 100 mls @ 100 mls/hr IVPB DAILY [facility] PRN Reason: Protocol Last Admin: 12/27/17 10:22 Dose: 100 mls/hr Ciprofloxacin (Cipro 200mg/100ml D5w) 100 mls @ 67 mls/hr IVPB Q12H [facility] PRN Reason: Protocol Last Admin: 12/27/17 09:34 Dose: 67 mls/hr BUPIVACAINE 0.125%/0.9% NACL (Bupivacaine-Ns 0.125% On-Q Finance Administrator) 600 mls @ 4 mls/ hr IJ ONCE ONE Stop: 12/31/17 16:54 Last Admin: 12/25/17 19:38 Dose: Not Given Furosemide 100 mg/ Sodium (Chloride) 100 mls @ 5 mls/hr IV .Q20H [facility]; 5 MG/HR PRN Reason: Protocol Last Admin: 12/27/17 04:00 Dose: Not Given Heparin Sodium/Sodium Chloride (Heparin 08911 Units/250ml 1/2 Normal Saline) 25 ,000 units in 250 mls @ 7.947 mls/hr IV .Q24H PRN; Protocol; 12 UNITS/KG/HR PRN Reason: PROTOCOL Last Admin: 12/26/17 22:50 Dose: 12 units/kg/hr, 7.947 mls/hr Vancomycin/Sodium Chloride (Vancomycin 1 Gm/Ns 200 Ml) 1 gm in 200 mls @ 133.333 mls/hr IVPB Q24H [facility] PRN Reason: Protocol Last Admin: 12/27/17 11:37 Dose: 133.333 mls/hr Multivitamins/Vitamin C 10 ml/Chromium/Copper/Manganese/Seleni/Zn 1 ml/ Amino Acids 1,011 mls @ 42 mls/hr IV .Q24H [facility] Stop: 12/27/17 17:59 Last Admin: 12/26/17 18:05 Dose: 42 mls/hr Acetaminophen (Ofirmev) 100 mls @ 400 mls/hr IV Q6H [facility] Stop: 12/27/17 15:01 Last Admin: 12/27/17 09:55 Dose: 400 mls/hr Aztreonam 1 gm/ Sodium (Chloride) 100 mls @ 100 mls/hr IVPB Q12H [facility] PRN Reason: Protocol Last Admin: 12/27/17 13:00 Dose: 100 mls/hr Acetaminophen (Ofirmev) 100 mls @ 400 mls/hr IV Q6 PRN PRN Reason: Pain, moderate (4-7) Stop: 12/28/17 09:34 Multivitamins/Vitamin C 10 ml/Chromium/Copper/Manganese/Zinc 1 ml/ Amino Acids 1,011 mls @ 42 mls/hr IV .Q24H ONE Stop: 12/28/17 17:59 Insulin Aspart (Novolog) 0 unit SC Q6 [facility] PRN Reason: Protocol Last Admin: 12/27/17 11:38 Dose: 4 unit Metoprolol Tartrate (Lopressor) 2.5 mg IVP Q12H [facility] Last Admin: 12/27/17 11:20 Dose: Not Given Morphine Sulfate (Morphine) 2 mg IVP Q4 PRN PRN Reason: Pain, severe (8-10) Last Admin: 12/27/17 11:19 Dose: 2 mg Ondansetron HCl (Zofran Inj) 4 mg IVP Q6H PRN PRN Reason: Nausea/Vomiting Pantoprazole Sodium (Protonix Inj) 40 mg IVP Q12H [facility] Last Admin: 12/27/17 09:35 Dose: 40 mg - Labs Labs: 12/27/17 06:04 12/27/17 06:04 PT 12.5 SECONDS (9.7-12.2) H 12/22/17 16:18 INR 1.1 12/22/17 16:18 APTT 54 SECONDS (21-34) H 12/27/17 06:04 - Constitutional Appears: Non-toxic, No Acute Distress - Head Exam Head Exam: ATRAUMATIC, NORMAL INSPECTION, NORMOCEPHALIC Additional comments: NGT in place - Eye Exam Eye Exam: EOMI, Normal appearance - ENT Exam ENT Exam: Mucous Membranes Moist, Normal Exam - Neck Exam Neck Exam: absent: Normal Inspection ([facility] TLC in place) - Respiratory Exam Respiratory Exam: NORMAL BREATHING PATTERN - Cardiovascular Exam Cardiovascular Exam: REGULAR RHYTHM, +S1, +S2 - GI/Abdominal Exam GI & Abdominal Exam: Soft, Tenderness (around incision sites). absent: Distended, Firm, Guarding, Rigid Additional comments: Midline dressing -clean/dry/intact. Constantino with 25 cc serosanguinous output - Extremities Exam Extremities Exam: Normal Inspection. absent: Pedal Edema - Neurological Exam Neurological Exam: Alert, Awake, CN II-XII Intact, Oriented x3 - Psychiatric Exam Psychiatric exam: Normal Affect, Normal Mood - Skin Skin Exam: Dry, Intact, Normal Color, Warm Assessment and Plan - Assessment and Plan (Free Text) Assessment: 77M POD#5 s/p ex-lap & Colin patch for duodenal perforation now with NSTEMI Plan: Cont NGT to low-cont suction NPO until bowel function Cont to monitor drain output Cont IV Abx Cont PPN Plan per cardio- cath on Monday 01/01 Further mgmt as per ICU & primary teams Cont pain mgmt Replace lytes PRN Will DW attending Mallory, PGY-1 <Fred Villa B - Last Filed: 12/27/17 15:46> Objective - Vital Signs/Intake and Output Vital Signs (last 24 hours): Temp Pulse Resp BP Pulse Ox 98.5 F 79 14 98/62 L 95 12/27/17 12:00 12/27/17 14:01 12/27/17 14:01 12/27/17 14:01 12/27/17 14:01 Intake and Output: 12/27/17 12/27/17 06:59 18:59 Intake Total 1699.2 1179.2 Output Total 730 Balance 969.2 1179.2 - Medications Medications: Current Medications Aspirin (Aspirin Supp) 300 mg SD DAILY K[facility]OLINE Last Admin: 12/27/17 11:37 Dose: 300 mg Digoxin (Lanoxin) 0.25 mg IVP DAILY@1800 [facility] Metronidazole (Flagyl) 500 mg in 100 mls @ 100 mls/hr IVPB Q8H [facility] PRN Reason: Protocol Last Admin: 12/27/17 11:19 Dose: 100 mls/hr Fluconazole (Diflucan Iv 200 Mg/100 Ml Ns) 100 mls @ 100 mls/hr IVPB DAILY [facility] PRN Reason: Protocol Last Admin: 12/27/17 10:22 Dose: 100 mls/hr Ciprofloxacin (Cipro 200mg/100ml D5w) 100 mls @ 67 mls/hr IVPB Q12H [facility] PRN Reason: Protocol Last Admin: 12/27/17 09:34 Dose: 67 mls/hr BUPIVACAINE 0.125%/0.9% NACL (Bupivacaine-Ns 0.125% On-Q Finance Administrator) 600 mls @ 4 mls/ hr IJ ONCE ONE Stop: 12/31/17 16:54 Last Admin: 12/25/17 19:38 Dose: Not Given Furosemide 100 mg/ Sodium (Chloride) 100 mls @ 5 mls/hr IV .Q20H [facility]; 5 MG/HR PRN Reason: Protocol Last Admin: 12/27/17 04:00 Dose: Not Given Heparin Sodium/Sodium Chloride (Heparin 74997 Units/250ml 1/2 Normal Saline) 25 ,000 units in 250 mls @ 7.947 mls/hr IV .Q24H PRN; Protocol; 12 UNITS/KG/HR PRN Reason: PROTOCOL Last Admin: 12/26/17 22:50 Dose: 12 units/kg/hr, 7.947 mls/hr Vancomycin/Sodium Chloride (Vancomycin 1 Gm/Ns 200 Ml) 1 gm in 200 mls @ 133.333 mls/hr IVPB Q24H [facility] PRN Reason: Protocol Last Admin: 12/27/17 11:37 Dose: 133.333 mls/hr Multivitamins/Vitamin C 10 ml/Chromium/Copper/Manganese/Seleni/Zn 1 ml/ Amino Acids 1,011 mls @ 42 mls/hr IV .Q24H [facility] Stop: 12/27/17 17:59 Last Admin: 12/26/17 18:05 Dose: 42 mls/hr Aztreonam 1 gm/ Sodium (Chloride) 100 mls @ 100 mls/hr IVPB Q12H [facility] PRN Reason: Protocol Last Admin: 12/27/17 13:00 Dose: 100 mls/hr Acetaminophen (Ofirmev) 100 mls @ 400 mls/hr IV Q6 PRN PRN Reason: Pain, moderate (4-7) Stop: 12/28/17 09:34 Multivitamins/Vitamin C 10 ml/Chromium/Copper/Manganese/Zinc 1 ml/ Amino Acids 1,011 mls @ 42 mls/hr IV .Q24H ONE Stop: 12/28/17 17:59 Insulin Aspart (Novolog) 0 unit SC Q6 [facility] PRN Reason: Protocol Metoprolol Tartrate (Lopressor) 2.5 mg IVP Q12H [facility] Last Admin: 12/27/17 11:20 Dose: Not Given Morphine Sulfate (Morphine) 2 mg IVP Q4 PRN PRN Reason: Pain, severe (8-10) Last Admin: 12/27/17 11:19 Dose: 2 mg Ondansetron HCl (Zofran Inj) 4 mg IVP Q6H PRN PRN Reason: Nausea/Vomiting Pantoprazole Sodium (Protonix Inj) 40 mg IVP Q12H [facility] Last Admin: 12/27/17 09:35 Dose: 40 mg - Labs Labs: 12/27/17 06:04 12/27/17 06:04 PT 12.5 SECONDS (9.7-12.2) H 12/22/17 16:18 INR 1.1 12/22/17 16:18 APTT 54 SECONDS (21-34) H 12/27/17 06:04 Attending/Attestation - Attestation I have personally seen and examined this patient.: Yes I have fully participated in the care of the patient.: Yes I have reviewed all pertinent clinical information, including history, physical exam and plan: Yes Notes (Text): Pt was seen and examined at bedside Agree with above note and assessment DC NG tube Start on liquid diet c.w current mx OOB to chair Plan d.w pt in detail
--- NOTE | 2017-12-27 13:34 | RAD ---
HISTORY: Left IJ TLC placed COMPARISON: 12/25/2017 FINDINGS: LUNGS: No active pulmonary disease. PLEURA: Small bilateral pleural effusion. No pneumothorax. CARDIOVASCULAR: Nasogastric tube grossly unchanged. New left internal jugular central venous catheter. OSSEOUS STRUCTURES: No significant abnormalities. VISUALIZED UPPER ABDOMEN: Normal. OTHER FINDINGS: None. IMPRESSION: New left IJ central venous catheter. No pneumothorax. Small bilateral pleural effusion.
--- NOTE | 2017-12-27 14:12 | CP.PCM.PN ---
Subjective - Date & Time of Evaluation Date of Evaluation: 12/27/17 Time of Evaluation: 14:12 - Subjective Subjective: CHIEF COMPLAINTS TODAY : afebrile. c/o abdominal pain but much less Started on clear liquids ROS. HEENT : N. Resp : No cough, wheezing ,pleuritic CP ,or hemoptysis Cardio : No anginal CP, PND, orthopnea, palpitation GI : +VE ABDOMINAL PAIN, NO n/v ,diarrhea or GI bleeding . PHARMACY CLERK : No headache, vertigo, focal deficit. Musculoskel : No joint swelling , Derm : No rash Psych : Normal affect. Ext : No swelling ,calf pain PE. Pt. is alert awake in no distress. V.S As noted in the chart Head ,ear nose,throat and eyes : Normal. Neck : Supple with normal carotids. Lungs: Clear air entry. Heart : S1 & S2 normal with S4. No murmur. Abd : SOFT, MILD TENDERNESS POSTOPERATIVE SITE, +VE J.PEREZ SEROUS SANGUINOUS DRAINAGE Neuro : Moves all ext. with no localized deficit. Ext : No edema with intact pulses.Non tender calves Derm : No rashes or decubitus ulcer. LABS/RADIOLOGY: REVIEWED cREATININE 1.6/bun 48 wbc 10.3 tROPONINS DECREASING. BLOOD CULTURES 12/26/17 -VE GROWTH TO DATE. chest x-ray 12/27/17-no active disease. Objective - Vital Signs/Intake and Output Vital Signs (last 24 hours): Temp Pulse Resp BP Pulse Ox 98.5 F 91 H 16 102/64 92 L 12/27/17 12:00 12/27/17 13:01 12/27/17 13:01 12/27/17 13:01 12/27/17 13:01 Intake and Output: 12/27/17 12/27/17 06:59 18:59 Intake Total 1699.2 1139.2 Output Total 730 Balance 969.2 1139.2 - Medications Medications: Current Medications Aspirin (Aspirin Supp) 300 mg [place] DAILY [facility] Last Admin: 12/27/17 11:37 Dose: 300 mg Digoxin (Lanoxin) 0.25 mg IVP DAILY@1800 [facility] Metronidazole (Flagyl) 500 mg in 100 mls @ 100 mls/hr IVPB Q8H [facility] PRN Reason: Protocol Last Admin: 12/27/17 11:19 Dose: 100 mls/hr Fluconazole (Diflucan Iv 200 Mg/100 Ml Ns) 100 mls @ 100 mls/hr IVPB DAILY [facility] PRN Reason: Protocol Last Admin: 12/27/17 10:22 Dose: 100 mls/hr Ciprofloxacin (Cipro 200mg/100ml D5w) 100 mls @ 67 mls/hr IVPB Q12H [facility] PRN Reason: Protocol Last Admin: 12/27/17 09:34 Dose: 67 mls/hr BUPIVACAINE 0.125%/0.9% NACL (Bupivacaine-Ns 0.125% On-Q Supervisor Telephone Information) 600 mls @ 4 mls/ hr IJ ONCE ONE Stop: 12/31/17 16:54 Last Admin: 12/25/17 19:38 Dose: Not Given Furosemide 100 mg/ Sodium (Chloride) 100 mls @ 5 mls/hr IV .Q20H [facility]; 5 MG/HR PRN Reason: Protocol Last Admin: 12/27/17 04:00 Dose: Not Given Heparin Sodium/Sodium Chloride (Heparin 89983 Units/250ml 1/2 Normal Saline) 25 ,000 units in 250 mls @ 7.947 mls/hr IV .Q24H PRN; Protocol; 12 UNITS/KG/HR PRN Reason: PROTOCOL Last Admin: 12/26/17 22:50 Dose: 12 units/kg/hr, 7.947 mls/hr Vancomycin/Sodium Chloride (Vancomycin 1 Gm/Ns 200 Ml) 1 gm in 200 mls @ 133.333 mls/hr IVPB Q24H [facility] PRN Reason: Protocol Last Admin: 12/27/17 11:37 Dose: 133.333 mls/hr Multivitamins/Vitamin C 10 ml/Chromium/Copper/Manganese/Seleni/Zn 1 ml/ Amino Acids 1,011 mls @ 42 mls/hr IV .Q24H [facility] Stop: 12/27/17 17:59 Last Admin: 12/26/17 18:05 Dose: 42 mls/hr Acetaminophen (Ofirmev) 100 mls @ 400 mls/hr IV Q6H [facility] Stop: 12/27/17 15:01 Last Admin: 12/27/17 09:55 Dose: 400 mls/hr Aztreonam 1 gm/ Sodium (Chloride) 100 mls @ 100 mls/hr IVPB Q12H [facility] PRN Reason: Protocol Last Admin: 12/27/17 13:00 Dose: 100 mls/hr Acetaminophen (Ofirmev) 100 mls @ 400 mls/hr IV Q6 PRN PRN Reason: Pain, moderate (4-7) Stop: 12/28/17 09:34 Multivitamins/Vitamin C 10 ml/Chromium/Copper/Manganese/Zinc 1 ml/ Amino Acids 1,011 mls @ 42 mls/hr IV .Q24H ONE Stop: 12/28/17 17:59 Potassium Chloride (Potassium Chloride 20 Meq/100 Ml) 20 meq in 100 mls @ 50 mls/hr IVPB ONCE ONE Stop: 12/27/17 15:29 Last Admin: 12/27/17 14:09 Dose: 50 mls/hr Insulin Aspart (Novolog) 0 unit SC Q6 KAROLINE PRN Reason: Protocol Metoprolol Tartrate (Lopressor) 2.5 mg IVP Q12H KAROLINE Last Admin: 12/27/17 11:20 Dose: Not Given Morphine Sulfate (Morphine) 2 mg IVP Q4 PRN PRN Reason: Pain, severe (8-10) Last Admin: 12/27/17 11:19 Dose: 2 mg Ondansetron HCl (Zofran Inj) 4 mg IVP Q6H PRN PRN Reason: Nausea/Vomiting Pantoprazole Sodium (Protonix Inj) 40 mg IVP Q12H [facility] Last Admin: 12/27/17 09:35 Dose: 40 mg - Labs Labs: 12/27/17 06:04 12/27/17 06:04 PT 12.5 SECONDS (9.7-12.2) H 12/22/17 16:18 INR 1.1 12/22/17 16:18 APTT 54 SECONDS (21-34) H 12/27/17 06:04 Assessment and Plan (1) Sepsis associated hypotension Status: Acute (2) Perforated abdominal viscus Status: Acute (3) Status post exploratory laparotomy Status: Acute (4) Acute non-ST elevation myocardial infarction (NSTEMI) Status: Acute (5) CHF (congestive heart failure) Status: Acute (6) Diabetes mellitus Status: Acute - Assessment and Plan (Free Text) Plan: CONTINUE IV Azactam 1 g IV piggyback every 12 hourly. 12/26/17 PATIENT TOLERATED FIRST DOSE WITHOUT ANY REACTIONS. ON IV vancomycin 1 g once a day daily for gram-positive/enterococcal coverage with intra-abdominal sepsis.12/26/17 Continue IV Flagyl 500 every 8 hourly 12/22/17 continue IV fluconazole 100 mg once a day daily 12/22/17. follow-up cultures and adjust antibiotics.
[2017-12-27] MEDS: Digoxin 500 mcg/2ml (0.5 mg/2ml) Inj IVP SCH (17:23)
--- NOTE | 2017-12-27 23:07 | CP.PCM.PN ---
Subjective - Date & Time of Evaluation Date of Evaluation: 12/27/17 Time of Evaluation: 18:45 - Subjective Subjective: Patient seen and examined Objective - Vital Signs/Intake and Output Vital Signs (last 24 hours): Temp Pulse Resp BP Pulse Ox 97.3 F L 87 19 108/59 L 94 L 12/27/17 16:00 12/27/17 19:01 12/27/17 19:01 12/27/17 19:01 12/27/17 19:01 Intake and Output: 12/27/17 12/28/17 18:59 06:59 Intake Total 1851.9 49.9 Output Total 915 40 Balance 936.9 9.9 - Medications Medications: Current Medications Aspirin (Aspirin Supp) 300 mg OR DAILY [facility] Last Admin: 12/27/17 11:37 Dose: 300 mg Digoxin (Lanoxin) 0.25 mg IVP DAILY@1800 [facility] Last Admin: 12/27/17 17:23 Dose: 0.25 mg Metronidazole (Flagyl) 500 mg in 100 mls @ 100 mls/hr IVPB Q8H [facility] PRN Reason: Protocol Last Admin: 12/27/17 18:04 Dose: 100 mls/hr Fluconazole (Diflucan Iv 200 Mg/100 Ml Ns) 100 mls @ 100 mls/hr IVPB DAILY [facility] PRN Reason: Protocol Last Admin: 12/27/17 10:22 Dose: 100 mls/hr Ciprofloxacin (Cipro 200mg/100ml D5w) 100 mls @ 67 mls/hr IVPB Q12H [facility] PRN Reason: Protocol Last Admin: 12/27/17 21:57 Dose: 67 mls/hr BUPIVACAINE 0.125%/0.9% NACL (Bupivacaine-Ns 0.125% On-Q [employer]) 600 mls @ 4 mls/ hr IJ ONCE ONE Stop: 12/31/17 16:54 Last Admin: 12/25/17 19:38 Dose: Not Given Heparin Sodium/Sodium Chloride (Heparin 18954 Units/250ml 1/2 Normal Saline) 25 ,000 units in 250 mls @ 7.947 mls/hr IV .Q24H PRN; Protocol; 12 UNITS/KG/HR PRN Reason: PROTOCOL Last Titration: 12/27/17 15:45 Dose: 12 units/kg/hr, 7.947 mls/hr Vancomycin/Sodium Chloride (Vancomycin 1 Gm/Ns 200 Ml) 1 gm in 200 mls @ 133.333 mls/hr IVPB Q24H [facility] PRN Reason: Protocol Last Admin: 12/27/17 11:37 Dose: 133.333 mls/hr Aztreonam 1 gm/ Sodium (Chloride) 100 mls @ 100 mls/hr IVPB Q12H [facility] PRN Reason: Protocol Last Admin: 12/27/17 22:00 Dose: 100 mls/hr Acetaminophen (Ofirmev) 100 mls @ 400 mls/hr IV Q6 PRN PRN Reason: Pain, moderate (4-7) Stop: 12/28/17 09:34 Multivitamins/Vitamin C 10 ml/Chromium/Copper/Manganese/Zinc 1 ml/ Amino Acids 1,011 mls @ 42 mls/hr IV .Q24H ONE Stop: 12/28/17 17:59 Last Admin: 12/27/17 17:20 Dose: 42 mls/hr Insulin Aspart (Novolog) 0 unit SC Q6 [facility] PRN Reason: Protocol Last Admin: 12/27/17 18:03 Dose: 4 unit Metoprolol Tartrate (Lopressor) 2.5 mg IVP Q12H [facility] Last Admin: 12/27/17 21:56 Dose: 2.5 mg Morphine Sulfate (Morphine) 2 mg IVP Q4 PRN PRN Reason: Pain, severe (8-10) Last Admin: 12/27/17 11:19 Dose: 2 mg Ondansetron HCl (Zofran Inj) 4 mg IVP Q6H PRN PRN Reason: Nausea/Vomiting Pantoprazole Sodium (Protonix Inj) 40 mg IVP Q12H [facility] Last Admin: 12/27/17 21:56 Dose: 40 mg - Labs Labs: 12/27/17 06:04 12/27/17 06:04 PT 12.5 SECONDS (9.7-12.2) H 12/22/17 16:18 INR 1.1 12/22/17 16:18 APTT 42 SECONDS (21-34) H D 12/27/17 21:54 Assessment and Plan (1) Perforated abdominal viscus Status: Acute (2) Diabetes mellitus Status: Acute (3) GERD (gastroesophageal reflux disease) Status: Acute (4) Acute non-ST elevation myocardial infarction (NSTEMI) Status: Acute
[2017-12-28] MEDS: Morphine 4 MG/ML VIAL IVP PRN ×4 (01:16→19:03)
[2017-12-28] MEDS: metroNIDAZOLE IV 500 mg/100 ml 500 MG/100 ML BAG IVPB SCH ×4 (02:49→18:00)
[2017-12-28 06:02] LABS: BASO # 0.1 K/uL (0.0-0.2); BASO % 0.5 % (0.0-2.0); EOS # 0.1 K/uL (0.0-0.7); EOS % 0.5 % (0.0-4.0); HEMOGLOBIN 9.9 g/dL (12.0-18.0); LYMPH # 0.7 K/uL (1.0-4.3); LYMPH % 6.3 % (20.0-40.0); MEAN CELL VOLUME 90.6 fL (80.0-94.0); MEAN CORPUSCULAR HEMOGLOBIN 29.4 pg (27.0-31.0); MEAN CORPUSCULAR HGB CONC 32.4 g/dL (33.0-37.0); MEAN PLATELET VOLUME 10.1 fL (7.2-11.7); MONO # 0.6 K/uL (0.0-0.8); MONO % 5.7 % (0.0-10.0); NEUT # 9.6 K/uL (1.8-7.0); PLATELET COUNT 193 K/uL (130-400); RBC 3.37 Mil/uL (4.40-5.90)
[2017-12-28] MEDS: (Novolog) Insulin Aspart, Recombinant 100 u/ml 10 ml vial SC SCH ×4 (06:13→22:32)
[2017-12-28 06:36] LABS: ALB/GLOB RATIO 0.8 (1.0-2.1); ALBUMIN 2.4 g/dL (3.5-5.0); CALCIUM 9.3 mg/dl (8.6-10.4)
[2017-12-28 08:28] LABS: EOSINOPHIL 1 % (0-4); NEUTROPHIL 86 % (50-75); TOTAL CELLS COUNTED 100
[2017-12-28 08:29] LABS: ANISOCYTOSIS SLIGHT; BURR CELLS SLIGHT; HYPOCHROMIC SLIGHT; LYMPHOCYTE 8 % (20-40); MONOCYTE 5 % (0-10); OVALOCYTES SLIGHT; PLATELET ESTIMATE NORMAL (NORMAL); POIKILOCYTOSIS SLIGHT
[2017-12-28 08:30] LABS: GIANT PLATELETS PRESENT; LARGE PLATELETS PRESENT
[2017-12-28] MEDS: Metoprolol 1 mg/ml Inj IVP SCH ×2 (08:55→21:43)
[2017-12-28] MEDS ORDERED: Magnesium Sulfate 1 gm in D5W 1 GM/100 ML BAG IVPB ONE (09:00)
--- NOTE | 2017-12-28 10:05 | CP.PCM.PN ---
<Sophie Gutierrez - Last Filed: 12/28/17 10:02> Subjective - Date & Time of Evaluation Date of Evaluation: 12/28/17 Time of Evaluation: 10:03 - Subjective Subjective: General Surgery - Dr. Villa Pt S&E. JYOTI. Pt has mild abdominal pain from incision and complaints of being thirsty. Otherwise no complaints. He is going for cardiac cath today, remains NPO this morning for procedure. He tolerated clear liquids yesterday. no N/V, F/C, SOb/Cp. Objective - Vital Signs/Intake and Output Vital Signs (last 24 hours): Temp Pulse Resp BP Pulse Ox 99.4 F 83 17 116/69 91 L 12/28/17 08:00 12/28/17 09:01 12/28/17 09:01 12/28/17 09:01 12/28/17 08:01 Intake and Output: 12/28/17 12/28/17 06:59 18:59 Intake Total 959.2 253.6 Output Total 1160 Balance -200.8 253.6 - Medications Medications: Current Medications Albuterol/Ipratropium (Duoneb 3 Mg/0.5 Mg (3 Ml) Ud) 3 ml INH RQ6 [facility] Aspirin (Aspirin Supp) 300 mg IN DAILY [facility] Last Admin: 12/28/17 09:14 Dose: 300 mg Digoxin (Lanoxin) 0.25 mg IVP DAILY@1800 [facility] Last Admin: 12/27/17 17:23 Dose: 0.25 mg Metronidazole (Flagyl) 500 mg in 100 mls @ 100 mls/hr IVPB Q8H [facility] PRN Reason: Protocol Last Admin: 12/28/17 03:30 Dose: 100 mls/hr Fluconazole (Diflucan Iv 200 Mg/100 Ml Ns) 100 mls @ 100 mls/hr IVPB DAILY [facility] PRN Reason: Protocol Last Admin: 12/27/17 10:22 Dose: 100 mls/hr BUPIVACAINE 0.125%/0.9% NACL (Bupivacaine-Ns 0.125% On-Q [employer]) 600 mls @ 4 mls/ hr IJ ONCE ONE Stop: 12/31/17 16:54 Last Admin: 12/25/17 19:38 Dose: Not Given Heparin Sodium/Sodium Chloride (Heparin 51622 Units/250ml 1/2 Normal Saline) 25 ,000 units in 250 mls @ 7.947 mls/hr IV .Q24H PRN; Protocol; 12 UNITS/KG/HR PRN Reason: PROTOCOL Last Titration: 12/27/17 15:45 Dose: 12 units/kg/hr, 7.947 mls/hr Vancomycin/Sodium Chloride (Vancomycin 1 Gm/Ns 200 Ml) 1 gm in 200 mls @ 133.333 mls/hr IVPB Q24H [facility] PRN Reason: Protocol Last Admin: 12/27/17 11:37 Dose: 133.333 mls/hr Aztreonam 1 gm/ Sodium (Chloride) 100 mls @ 100 mls/hr IVPB Q12H [facility] PRN Reason: Protocol Last Admin: 12/27/17 22:00 Dose: 100 mls/hr Multivitamins/Vitamin C 10 ml/Chromium/Copper/Manganese/Zinc 1 ml/ Amino Acids 1,011 mls @ 42 mls/hr IV .Q24H ONE Stop: 12/28/17 17:59 Last Admin: 12/27/17 17:20 Dose: 42 mls/hr Insulin Aspart (Novolog) 0 unit SC Q6 [facility] PRN Reason: Protocol Last Admin: 12/28/17 06:13 Dose: 6 unit Metoprolol Tartrate (Lopressor) 2.5 mg IVP Q12H [facility] Last Admin: 12/28/17 08:55 Dose: 2.5 mg Morphine Sulfate (Morphine) 2 mg IVP Q4 PRN PRN Reason: Pain, severe (8-10) Last Admin: 12/28/17 06:44 Dose: 2 mg Ondansetron HCl (Zofran Inj) 4 mg IVP Q6H PRN PRN Reason: Nausea/Vomiting Pantoprazole Sodium (Protonix Inj) 40 mg IVP Q12H [facility] Last Admin: 12/28/17 09:14 Dose: 40 mg - Labs Labs: 12/28/17 05:53 12/28/17 05:53 PT 12.5 SECONDS (9.7-12.2) H 12/22/17 16:18 INR 1.1 12/22/17 16:18 APTT 48 SECONDS (21-34) H D 12/28/17 05:53 - Constitutional Appears: No Acute Distress - Head Exam Head Exam: ATRAUMATIC, NORMAL INSPECTION, NORMOCEPHALIC - Eye Exam Eye Exam: Normal appearance - Respiratory Exam Respiratory Exam: NORMAL BREATHING PATTERN. absent: Respiratory Distress - Cardiovascular Exam Cardiovascular Exam: Tachycardia - GI/Abdominal Exam GI & Abdominal Exam: Soft. absent: Distended, Guarding, Tenderness, Rebound Additional comments: incision C/D/I with panda, Constantino drain in RLQ with serosanguinous drainage, 150cc/24hrs - Neurological Exam Neurological Exam: Alert, Oriented x3 - Psychiatric Exam Psychiatric exam: Normal Affect, Normal Mood - Skin Skin Exam: Dry, Intact Assessment and Plan - Assessment and Plan (Free Text) Assessment: 77M POD#6 s/p ex-lap & Colin patch for duodenal perforation, post-op NSTEMI Plan: NPO until Cardiac cath today, then may resume Clear liquid diet Continue PPN until adequate PO intake Encourage OOB to chair Physical therapy Pain control PRN Dw Dr Villa <Fred Villa - Last Filed: 01/06/18 18:45> Objective - Vital Signs/Intake and Output Vital Signs (last 24 hours): Temp Pulse Resp BP Pulse Ox 97.1 F L 94 H 16 137/77 95 01/06/18 18:00 01/06/18 18:00 01/06/18 18:00 01/06/18 18:22 01/06/18 18:00 Intake and Output: 01/06/18 01/06/18 06:59 18:59 Intake Total 960 Output Total 300 Balance 660 - Medications Medications: Current Medications Albuterol/Ipratropium (Duoneb 3 Mg/0.5 Mg (3 Ml) Ud) 3 ml INH RQ6 [facility] Last Admin: 01/06/18 07:36 Dose: 3 ml Aspirin (Aspirin) 325 mg PO DAILY [facility] Last Admin: 01/06/18 09:52 Dose: 325 mg Heparin Sodium (Porcine) (Heparin) 5,000 units SC Q12 [facility] Last Admin: 01/06/18 09:52 Dose: 5,000 units Insulin Detemir (Levemir) 15 unit SC Q12 [facility] Last Admin: 01/06/18 09:52 Dose: 15 unit Insulin Human Regular (Novolin R) 0 unit SC Q6H [facility] PRN Reason: Protocol Last Admin: 01/06/18 18:22 Dose: 6 unit Metoprolol Tartrate (Lopressor) 25 mg PO BID [facility] Last Admin: 01/06/18 18:22 Dose: 25 mg Ondansetron HCl (Zofran Inj) 4 mg IVP Q6H PRN PRN Reason: Nausea/Vomiting Oxycodone/Acetaminophen (Percocet 5/325 Mg Tab) 1 tab PO Q4H PRN PRN Reason: Pain, moderate (4-7) Stop: 01/07/18 20:10 Last Admin: 01/05/18 04:38 Dose: 1 tab Pantoprazole Sodium (Protonix Inj) 40 mg IVP Q12H [facility] Last Admin: 01/06/18 09:51 Dose: 40 mg Rosuvastatin Calcium (Crestor) 20 mg PO HS [facility] Last Admin: 01/05/18 21:19 Dose: 20 mg Sertraline HCl (Zoloft) 25 mg PO DAILY [facility] Last Admin: 01/06/18 09:53 Dose: 25 mg Trazodone HCl (Desyrel) 25 mg PO [facility] Last Admin: 01/05/18 21:19 Dose: 25 mg - Labs Labs: 01/06/18 06:21 01/06/18 06:21 PT 12.5 SECONDS (9.7-12.2) H 12/22/17 16:18 INR 1.1 12/22/17 16:18 APTT 48 SECONDS (21-34) H D 12/28/17 05:53 Attending/Attestation - Attestation I have personally seen and examined this patient.: Yes I have fully participated in the care of the patient.: Yes I have reviewed all pertinent clinical information, including history, physical exam and plan: Yes Notes (Text): Pt was seen and examined at bedside Agree with above note and assessment Pt is stable with Pneumonia and post op DC Tolerating liquids only Passing gas, No BM C/w IV antibiotics c/w current mx Plan d.w pt and primary team in detail
[2017-12-28] MEDS ORDERED: Verapamil 2 ML ONE (10:06)
[2017-12-28] MEDS ORDERED: Midazolam 2 MG/2 ML VIAL ONE (10:06)
[2017-12-28] MEDS ORDERED: DiphenhydrAMINE 50 mg/ml Inj ONE (10:35)
[2017-12-28] MEDS ORDERED: Lidocaine/Epinephrine 1% 1:100000 10 ML IJ ONE ×2 (10:58→11:35)
--- NOTE | 2017-12-28 11:51 | CP.PCM.PN ---
Subjective - Date & Time of Evaluation Date of Evaluation: 12/28/17 Time of Evaluation: 11:48 - Subjective Subjective: Patient s/p cath 1. L Main: Distal 60% 2. LAD: Ostial and proximal 85%, Mid LAD 90% stenosis 3. L Cx: patent 4. RCA: Mid 60% 5. EF by ECHO 65% CT surgery consult for CABG. If Surgery refuses will schedule for high risk PCI of Lt. Main after 1 week ASA, Statins, b blockers D/C IV Heparin and change to HepSQ for DVT prophylaxis Objective - Vital Signs/Intake and Output Vital Signs (last 24 hours): Temp Pulse Resp BP Pulse Ox 99.4 F 83 17 116/69 91 L 12/28/17 08:00 12/28/17 09:01 12/28/17 09:01 12/28/17 09:01 12/28/17 08:01 Intake and Output: 12/28/17 12/28/17 06:59 18:59 Intake Total 959.2 253.6 Output Total 1160 Balance -200.8 253.6 - Medications Medications: Current Medications Albuterol/Ipratropium (Duoneb 3 Mg/0.5 Mg (3 Ml) Ud) 3 ml INH RQ6 [facility] Aspirin (Aspirin) 325 mg PO DAILY [facility] Digoxin (Lanoxin) 0.25 mg IVP DAILY@1800 [facility] Last Admin: 12/27/17 17:23 Dose: 0.25 mg Metronidazole (Flagyl) 500 mg in 100 mls @ 100 mls/hr IVPB Q8H [facility] PRN Reason: Protocol Last Admin: 12/28/17 03:30 Dose: 100 mls/hr Fluconazole (Diflucan Iv 200 Mg/100 Ml Ns) 100 mls @ 100 mls/hr IVPB DAILY [facility] PRN Reason: Protocol Last Admin: 12/27/17 10:22 Dose: 100 mls/hr BUPIVACAINE 0.125%/0.9% NACL (Bupivacaine-Ns 0.125% On-Q [employer]) 600 mls @ 4 mls/ hr IJ ONCE ONE Stop: 12/31/17 16:54 Last Admin: 12/25/17 19:38 Dose: Not Given Heparin Sodium/Sodium Chloride (Heparin 74051 Units/250ml 1/2 Normal Saline) 25 ,000 units in 250 mls @ 7.947 mls/hr IV .Q24H PRN; Protocol; 12 UNITS/KG/HR PRN Reason: PROTOCOL Last Titration: 12/27/17 15:45 Dose: 12 units/kg/hr, 7.947 mls/hr Vancomycin/Sodium Chloride (Vancomycin 1 Gm/Ns 200 Ml) 1 gm in 200 mls @ 133.333 mls/hr IVPB Q24H [facility] PRN Reason: Protocol Last Admin: 12/27/17 11:37 Dose: 133.333 mls/hr Aztreonam 1 gm/ Sodium (Chloride) 100 mls @ 100 mls/hr IVPB Q12H [facility] PRN Reason: Protocol Last Admin: 12/27/17 22:00 Dose: 100 mls/hr Multivitamins/Vitamin C 10 ml/Chromium/Copper/Manganese/Zinc 1 ml/ Amino Acids 1,011 mls @ 42 mls/hr IV .Q24H ONE Stop: 12/28/17 17:59 Last Admin: 12/27/17 17:20 Dose: 42 mls/hr Insulin Aspart (Novolog) 0 unit SC Q6 [facility] PRN Reason: Protocol Last Admin: 12/28/17 06:13 Dose: 6 unit Metoprolol Tartrate (Lopressor) 2.5 mg IVP Q12H [facility] Last Admin: 12/28/17 08:55 Dose: 2.5 mg Morphine Sulfate (Morphine) 2 mg IVP Q4 PRN PRN Reason: Pain, severe (8-10) Last Admin: 12/28/17 06:44 Dose: 2 mg Ondansetron HCl (Zofran Inj) 4 mg IVP Q6H PRN PRN Reason: Nausea/Vomiting Pantoprazole Sodium (Protonix Inj) 40 mg IVP Q12H [facility] Last Admin: 12/28/17 09:14 Dose: 40 mg Rosuvastatin Calcium (Crestor) 20 mg PO HS [facility] - Labs Labs: 12/28/17 05:53 12/28/17 05:53 PT 12.5 SECONDS (9.7-12.2) H 12/22/17 16:18 INR 1.1 12/22/17 16:18 APTT 48 SECONDS (21-34) H D 12/28/17 05:53
--- NOTE | 2017-12-28 12:05 | CARD ---
APPROVED REPORT EKG Measurement Heart [id number] <Conclusion> Atrial fibrillation Left axis deviation Inferior infarct, age undetermined Anterolateral infarct, age undetermined Abnormal ECG
[2017-12-28] MEDS: Fluconazole IV 200mg/100 ml NS 100 ML IVPB SCH (12:38)
[2017-12-28] MEDS: Aztreonam 1 GM in Sodium Chloride 0.9% 100 ML IVPB SCH ×2 (12:38→23:47)
[2017-12-28] MEDS: Sodium Chloride 0.45% 1,000 ML IV SCH (12:40)
--- NOTE | 2017-12-28 13:08 | CP.CCUPN ---
<Clement Vincent - Last Filed: 12/28/17 12:51> CCU Subjective - Physician Review Subjective (Free Text): 12/25/17 11:03 Patient seen and examined. Patient complaining of continued abdominal pain and some dyspnea. Denies chest pain at this time. 12/26/17 08:54 Patient seen and examined. Patient continues to complain of pain. Overnight, patient had episode of A-fib and was started on Amiodarone drip. 12/27/17 10:47 Patient seen and examined. Patient complaining of some dyspnea. Patient states that he is still in pain although it is reduced. 12/28/17 12:52 Patient seen and examined. Patient reports continued intermittent dyspnea. Patient went for cardiac cath this morning. CCU Objective - Vital Signs / Intake & Output Vital Signs (Last 4 hours): Vital Signs Pulse Resp BP 12/28/17 09:01 83 17 116/69 Intake and Output (Last 8hrs): Intake & Output 12/27/17 12/28/17 12/28/17 22:59 06:59 14:59 Intake Total 941.3 609.6 253.6 Output Total 955 1120 Balance -13.7 -510.4 253.6 Weight 143 lb 7 oz Intake: IV 0 Intake, IV Amount 791.3 609.6 253.6 Left Medial Port 336 336 126 Left Proximal Port 400 200 100 Internal Jugular Right Hand 55.3 73.6 27.6 Oral 150 0 Output: Drainage 355 70 Left Nare 275 Right Lower Abdomen 80 70 Urine 600 1050 Urine, Voided 600 1050 - Physical Exam Head: Positive for: Atraumatic, Normocephalic Pupils: Positive for: PERRL Extroacular Muscles: Positive for: EOMI Mouth: Positive for: Moist Mucous Membranes Nose (External): Positive for: Other (NGT in place on suction) Neck: Positive for: Other (left IJ TLC) Respiratory/Chest: Positive for: Clear to Auscultation. Negative for: Wheezes, Rales, Rhonchi Cardiovascular: Positive for: Normal S1, S2, Irregular Rhythm, Tachycardic Abdomen: Positive for: Tenderness, Guarding, Other (Abdominal dressing clean,dry ,intact) Upper Extremity: Positive for: Normal Inspection Lower Extremity: Positive for: Normal Inspection Neurological: Positive for: GCS=15 Skin: Positive for: Warm, Dry Psychiatric: Positive for: Alert, Oriented x 3 - Medications Active Medications: Active Medications Generic Name Dose Route Start Last Admin Trade Name Freq PRN Reason Stop Dose Admin Albuterol/Ipratropium 3 ml 12/28/17 14:00 Duoneb 3 Mg/0.5 Mg (3 Ml) Ud INH RQ6 [facility] Aspirin 325 mg 12/29/17 10:00 Aspirin PO DAILY [facility] Digoxin 0.25 mg 12/27/17 18:00 12/27/17 17:23 Lanoxin IVP 0.25 mg DAILY@1800 [facility] Administration Heparin Sodium (Porcine) 5,000 units 12/28/17 22:00 Heparin SC Q12 [facility] Metronidazole 500 mg in 100 mls @ 100 mls/hr 12/23/17 03:00 12/28/17 03:30 Flagyl IVPB 100 mls/hr Q8H [facility] Administration Protocol Fluconazole 100 mls @ 100 mls/hr 12/25/17 10:00 12/28/17 12:38 Diflucan Iv 200 Mg/100 Ml Ns IVPB 100 mls/hr DAILY [facility] Administration Protocol BUPIVACAINE 0.125%/0.9% NACL 600 mls @ 4 mls/hr 12/25/17 10:55 12/25/17 19:38 Bupivacaine-Ns 0.125% On-Q [employer] IJ 12/31/17 16:54 Not Given ONCE ONE Vancomycin/Sodium Chloride 1 gm in 200 mls @ 133.333 mls/hr 12/26/17 12:00 11:37 Vancomycin 1 Gm/Ns 200 Ml IVPB 133.333 mls/hr Q24H [facility] Administration Protocol Aztreonam 1 gm/ Sodium 100 mls @ 100 mls/hr 12/27/17 11:00 12/28/17 12:38 Chloride IVPB 100 mls/hr Q12H [facility] Administration Protocol Multivitamins/Vitamin C 10 ml/ 1,011 mls @ 42 mls/hr 12/27/17 18:00 12/27/17 17:20 Chromium/Copper/Manganese/ IV 12/28/17 17:59 42 mls/hr Zinc 1 ml/ Amino Acids .Q24H ONE Administration Sodium Chloride 1,000 mls @ 50 mls/hr 12/28/17 12:00 12/28/17 12:40 Sodium Chloride 0.45% IV 12/29/17 23:59 50 mls/hr .Q20H [facility] Administration Insulin Aspart 0 unit 12/27/17 13:17 12/28/17 12:39 Novolog SC 4 unit Q6 [facility] Administration Protocol Metoprolol Tartrate 2.5 mg 12/25/17 09:30 12/28/17 08:55 Lopressor IVP 2.5 mg Q12H [facility] Administration Morphine Sulfate 2 mg 12/25/17 07:43 12/28/17 06:44 Morphine IVP 2 mg Q4 PRN Administration Pain, severe (8-10) Ondansetron HCl 4 mg 12/22/17 16:46 Zofran Inj IVP Q6H PRN Nausea/Vomiting Pantoprazole Sodium 40 mg 12/22/17 22:15 12/28/17 09:14 Protonix Inj IVP 40 mg Q12H [facility] Administration Rosuvastatin Calcium 20 mg 12/28/17 22:00 Crestor PO HS [facility] - Patient Studies Lab Studies: Microbiology Studies 12/22/17 16:24 Blood Culture - Final Blood NO GROWTH AFTER 5 DAYS Gram Stain - Final TEST NOT PERFORMED 12/22/17 16:10 Blood Culture - Final Blood NO GROWTH AFTER 5 DAYS Gram Stain - Final TEST NOT PERFORMED 12/26/17 11:30 Blood Culture - Preliminary Blood NO GROWTH AFTER 24 HOURS 12/26/17 11:00 Blood Culture - Preliminary Blood NO GROWTH AFTER 24 HOURS 12/22/17 22:35 Gram Stain - Final Peritoneal Fluid Body Fluid Culture - Final No growth. Lab Studies 12/28/17 12/28/17 12/28/17 Range/Units 12:14 05:53 05:53 WBC (4.8-10.8) K/uL RBC (4.40-5.90) Mil/uL Hgb (12.0-18.0) g/dL Hct (35.0-51.0) % MCV (80.0-94.0) fL MCH (27.0-31.0) pg MCHC (33.0-37.0) g/dL RDW (11.5-14.5) % Plt Count (130-400) K/uL MPV (7.2-11.7) fL Neut % (Auto) (50.0-75.0) % Lymph % (Auto) (20.0-40.0) % [place] % (Auto) (0.0-10.0) % Eos % (Auto) (0.0-4.0) % Baso % (Auto) (0.0-2.0) % Neut # (Auto) (1.8-7.0) K/uL Lymph # (Auto) (1.0-4.3) K/uL [place] # (Auto) (0.0-0.8) K/uL Eos # (Auto) (0.0-0.7) K/uL Baso # (Auto) (0.0-0.2) K/uL Neutrophils % (Manual) (50-75) % Lymphocytes % (Manual) (20-40) % Monocytes % (Manual) (0-10) % Eosinophils % (Manual) (0-4) % Platelet Estimate (NORMAL) Large Platelets Giant Platelets Hypochromasia (manual) Poikilocytosis (manual Anisocytosis (manual) Ovalocytes Serjio Cells APTT 48 H D (21-34) SECONDS Sodium (132-148) mmol/L Potassium (3.6-5.2) mmol/L Chloride (98-107) mmol/L Carbon Dioxide (22-30) mmol/L Anion Gap (10-20) BUN (9-20) mg/dL Creatinine (0.8-1.5) mg/dL Est GFR ( Amer) Est GFR (Non-Af Amer) POC Glucose (mg/dL) 249 H (65-110) mg/dL Random Glucose (75-110) mg/dL Calcium (8.6-10.4) mg/dl Phosphorus (2.5-4.5) mg/dL Magnesium (1.6-2.3) mg/dL Total Bilirubin (0.2-1.3) mg/dL AST (17-59) U/L ALT (21-72) U/L Alkaline Phosphatase (38-126) U/L Troponin I (0.00-0.120) ng/mL Total Protein (6.3-8.3) g/dL Albumin (3.5-5.0) g/dL Globulin (2.2-3.9) gm/dL Albumin/Globulin Ratio (1.0-2.1) Digoxin 1.7 (0.8-2.0) ng/mL 12/28/17 12/28/17 12/28/17 Range/Units 05:53 05:53 05:42 WBC 11.0 H (4.8-10.8) K/uL RBC 3.37 L (4.40-5.90) Mil/uL Hgb 9.9 L (12.0-18.0) g/dL Hct 30.6 L (35.0-51.0) % MCV 90.6 (80.0-94.0) fL MCH 29.4 (27.0-31.0) pg MCHC 32.4 L (33.0-37.0) g/dL RDW 13.0 (11.5-14.5) % Plt Count 193 (130-400) K/uL MPV 10.1 (7.2-11.7) fL Neut % (Auto) 87.0 H (50.0-75.0) % Lymph % (Auto) 6.3 L (20.0-40.0) % [place] % (Auto) 5.7 (0.0-10.0) % Eos % (Auto) 0.5 (0.0-4.0) % Baso % (Auto) 0.5 (0.0-2.0) % Neut # (Auto) 9.6 H (1.8-7.0) K/uL Lymph # (Auto) 0.7 L (1.0-4.3) K/uL [place] # (Auto) 0.6 (0.0-0.8) K/uL Eos # (Auto) 0.1 (0.0-0.7) K/uL Baso # (Auto) 0.1 (0.0-0.2) K/uL Neutrophils % (Manual) 86 H (50-75) % Lymphocytes % (Manual) 8 L (20-40) % Monocytes % (Manual) 5 (0-10) % Eosinophils % (Manual) 1 (0-4) % Platelet Estimate Normal (NORMAL) Large Platelets Present Giant Platelets Present Hypochromasia (manual) Slight Poikilocytosis (manual Slight Anisocytosis (manual) Slight Ovalocytes Slight [place] Cells Slight APTT (21-34) SECONDS Sodium 138 (132-148) mmol/L Potassium 4.0 (3.6-5.2) mmol/L Chloride 102 (98-107) mmol/L Carbon Dioxide 24 (22-30) mmol/L Anion Gap 16 (10-20) BUN 46 H (9-20) mg/dL Creatinine 1.4 (0.8-1.5) mg/dL Est GFR ( Amer) 59 Est GFR (Non-Af Amer) 49 POC Glucose (mg/dL) 277 H (65-110) mg/dL Random Glucose 278 H (75-110) mg/dL Calcium 9.3 (8.6-10.4) mg/dl Phosphorus 3.2 (2.5-4.5) mg/dL Magnesium 1.6 (1.6-2.3) mg/dL Total Bilirubin 0.4 (0.2-1.3) mg/dL AST 19 (17-59) U/L ALT 28 (21-72) U/L Alkaline Phosphatase 65 (38-126) U/L Troponin I (0.00-0.120) ng/mL Total Protein 5.2 L (6.3-8.3) g/dL Albumin 2.4 L (3.5-5.0) g/dL Globulin 2.8 (2.2-3.9) gm/dL Albumin/Globulin Ratio 0.8 L (1.0-2.1) Digoxin (0.8-2.0) ng/mL 12/27/17 12/27/17 12/27/17 Range/Units 23:33 21:54 17:41 WBC (4.8-10.8) K/uL RBC (4.40-5.90) Mil/uL Hgb (12.0-18.0) g/dL Hct (35.0-51.0) % MCV (80.0-94.0) fL MCH (27.0-31.0) pg MCHC (33.0-37.0) g/dL RDW (11.5-14.5) % Plt Count (130-400) K/uL MPV (7.2-11.7) fL Neut % (Auto) (50.0-75.0) % Lymph % (Auto) (20.0-40.0) % [place] % (Auto) (0.0-10.0) % Eos % (Auto) (0.0-4.0) % Baso % (Auto) (0.0-2.0) % Neut # (Auto) (1.8-7.0) K/uL Lymph # (Auto) (1.0-4.3) K/uL [place] # (Auto) (0.0-0.8) K/uL Eos # (Auto) (0.0-0.7) K/uL Baso # (Auto) (0.0-0.2) K/uL Neutrophils % (Manual) (50-75) % Lymphocytes % (Manual) (20-40) % Monocytes % (Manual) (0-10) % Eosinophils % (Manual) (0-4) % Platelet Estimate (NORMAL) Large Platelets Giant Platelets Hypochromasia (manual) Poikilocytosis (manual Anisocytosis (manual) Ovalocytes Serjio Cells APTT 42 H D (21-34) SECONDS Sodium (132-148) mmol/L Potassium (3.6-5.2) mmol/L Chloride (98-107) mmol/L Carbon Dioxide (22-30) mmol/L Anion Gap (10-20) BUN (9-20) mg/dL Creatinine (0.8-1.5) mg/dL Est GFR ( Amer) Est GFR (Non-Af Amer) POC Glucose (mg/dL) 232 H 227 H (65-110) mg/dL Random Glucose (75-110) mg/dL Calcium (8.6-10.4) mg/dl Phosphorus (2.5-4.5) mg/dL Magnesium (1.6-2.3) mg/dL Total Bilirubin (0.2-1.3) mg/dL AST (17-59) U/L ALT (21-72) U/L Alkaline Phosphatase (38-126) U/L Troponin I (0.00-0.120) ng/mL Total Protein (6.3-8.3) g/dL Albumin (3.5-5.0) g/dL Globulin (2.2-3.9) gm/dL Albumin/Globulin Ratio (1.0-2.1) Digoxin (0.8-2.0) ng/mL 12/27/17 Range/Units 13:05 WBC (4.8-10.8) K/uL RBC (4.40-5.90) Mil/uL Hgb (12.0-18.0) g/dL Hct (35.0-51.0) % MCV (80.0-94.0) fL MCH (27.0-31.0) pg MCHC (33.0-37.0) g/dL RDW (11.5-14.5) % Plt Count (130-400) K/uL MPV (7.2-11.7) fL Neut % (Auto) (50.0-75.0) % Lymph % (Auto) (20.0-40.0) % [place] % (Auto) (0.0-10.0) % Eos % (Auto) (0.0-4.0) % Baso % (Auto) (0.0-2.0) % Neut # (Auto) (1.8-7.0) K/uL Lymph # (Auto) (1.0-4.3) K/uL [place] # (Auto) (0.0-0.8) K/uL Eos # (Auto) (0.0-0.7) K/uL Baso # (Auto) (0.0-0.2) K/uL Neutrophils % (Manual) (50-75) % Lymphocytes % (Manual) (20-40) % Monocytes % (Manual) (0-10) % Eosinophils % (Manual) (0-4) % Platelet Estimate (NORMAL) Large Platelets Giant Platelets Hypochromasia (manual) Poikilocytosis (manual Anisocytosis (manual) Ovalocytes Serjio Cells APTT (21-34) SECONDS Sodium (132-148) mmol/L Potassium (3.6-5.2) mmol/L Chloride (98-107) mmol/L Carbon Dioxide (22-30) mmol/L Anion Gap (10-20) BUN (9-20) mg/dL Creatinine (0.8-1.5) mg/dL Est GFR ( Amer) Est GFR (Non-Af Amer) POC Glucose (mg/dL) (65-110) mg/dL Random Glucose (75-110) mg/dL Calcium (8.6-10.4) mg/dl Phosphorus (2.5-4.5) mg/dL Magnesium (1.6-2.3) mg/dL Total Bilirubin (0.2-1.3) mg/dL AST (17-59) U/L ALT (21-72) U/L Alkaline Phosphatase (38-126) U/L Troponin I 2.2300 H* (0.00-0.120) ng/mL Total Protein (6.3-8.3) g/dL Albumin (3.5-5.0) g/dL Globulin (2.2-3.9) gm/dL Albumin/Globulin Ratio (1.0-2.1) Digoxin (0.8-2.0) ng/mL Laboratory Results - last 24 hr 12/27/17 12/27/17 12/27/17 13:05 17:41 21:54 WBC RBC Hgb Hct MCV MCH MCHC RDW Plt Count MPV Neut % (Auto) Lymph % (Auto) [place] % (Auto) Eos % (Auto) Baso % (Auto) Neut # (Auto) Lymph # (Auto) [place] # (Auto) Eos # (Auto) Baso # (Auto) Neutrophils % (Manual) Lymphocytes % (Manual) Monocytes % (Manual) Eosinophils % (Manual) Platelet Estimate Large Platelets Giant Platelets Hypochromasia (manual) Poikilocytosis (manual Anisocytosis (manual) Ovalocytes [place] Cells APTT 42 H D Sodium Potassium Chloride Carbon Dioxide Anion Gap BUN Creatinine Est GFR ( Amer) Est GFR (Non-Af Amer) POC Glucose (mg/dL) 227 H Random Glucose Calcium Phosphorus Magnesium Total Bilirubin AST ALT Alkaline Phosphatase Troponin I 2.2300 H* Total Protein Albumin Globulin Albumin/Globulin Ratio Digoxin 12/27/17 12/28/17 12/28/17 23:33 05:42 05:53 WBC 11.0 H RBC 3.37 L Hgb 9.9 L Hct 30.6 L MCV 90.6 MCH 29.4 MCHC 32.4 L RDW 13.0 Plt Count 193 MPV 10.1 Neut % (Auto) 87.0 H Lymph % (Auto) 6.3 L [place] % (Auto) 5.7 Eos % (Auto) 0.5 Baso % (Auto) 0.5 Neut # (Auto) 9.6 H Lymph # (Auto) 0.7 L [place] # (Auto) 0.6 Eos # (Auto) 0.1 Baso # (Auto) 0.1 Neutrophils % (Manual) 86 H Lymphocytes % (Manual) 8 L Monocytes % (Manual) 5 Eosinophils % (Manual) 1 Platelet Estimate Normal Large Platelets Present Giant Platelets Present Hypochromasia (manual) Slight Poikilocytosis (manual Slight Anisocytosis (manual) Slight Ovalocytes Slight Serjio Cells Slight APTT Sodium Potassium Chloride Carbon Dioxide Anion Gap BUN Creatinine Est GFR ( Amer) Est GFR (Non-Af Amer) POC Glucose (mg/dL) 232 H 277 H Random Glucose Calcium Phosphorus Magnesium Total Bilirubin AST ALT Alkaline Phosphatase Troponin I Total Protein Albumin Globulin Albumin/Globulin Ratio Digoxin 12/28/17 12/28/17 12/28/17 05:53 05:53 05:53 WBC RBC Hgb Hct MCV MCH MCHC RDW Plt Count MPV Neut % (Auto) Lymph % (Auto) [place] % (Auto) Eos % (Auto) Baso % (Auto) Neut # (Auto) Lymph # (Auto) [place] # (Auto) Eos # (Auto) Baso # (Auto) Neutrophils % (Manual) Lymphocytes % (Manual) Monocytes % (Manual) Eosinophils % (Manual) Platelet Estimate Large Platelets Giant Platelets Hypochromasia (manual) Poikilocytosis (manual Anisocytosis (manual) Ovalocytes [place] Cells APTT 48 H D Sodium 138 Potassium 4.0 Chloride 102 Carbon Dioxide 24 Anion Gap 16 BUN 46 H Creatinine 1.4 Est GFR ( Amer) 59 Est GFR (Non-Af Amer) 49 POC Glucose (mg/dL) Random Glucose 278 H Calcium 9.3 Phosphorus 3.2 Magnesium 1.6 Total Bilirubin 0.4 AST 19 ALT 28 Alkaline Phosphatase 65 Troponin I Total Protein 5.2 L Albumin 2.4 L Globulin 2.8 Albumin/Globulin Ratio 0.8 L Digoxin 1.7 12/28/17 12:14 WBC RBC Hgb Hct MCV MCH MCHC RDW Plt Count MPV Neut % (Auto) Lymph % (Auto) [place] % (Auto) Eos % (Auto) Baso % (Auto) Neut # (Auto) Lymph # (Auto) [place] # (Auto) Eos # (Auto) Baso # (Auto) Neutrophils % (Manual) Lymphocytes % (Manual) Monocytes % (Manual) Eosinophils % (Manual) Platelet Estimate Large Platelets Giant Platelets Hypochromasia (manual) Poikilocytosis (manual Anisocytosis (manual) Ovalocytes Serjio Cells APTT Sodium Potassium Chloride Carbon Dioxide Anion Gap BUN Creatinine Est GFR ( Amer) Est GFR (Non-Af Amer) POC Glucose (mg/dL) 249 H Random Glucose Calcium Phosphorus Magnesium Total Bilirubin AST ALT Alkaline Phosphatase Troponin I Total Protein Albumin Globulin Albumin/Globulin Ratio Digoxin Fingerstick Blood Sugar Results: 277 Critical Care Progress Note - Nutrition Nutrition: Nutrition Category Date Time Status Liquid Diet [DIET] Diets 12/27/17 Lunch Active Assessment/Plan - Assessment and Plan (Free Text) Assessment: This is a 77 year old male with PMHx diabetes, hypertension, hypercholesterolemia admitted with perforated duodenal ulcer status post exploratory laparotomy with Repair of peptic perforation with Colin patch on . POD #6. Patient is s/p cardiac cath which showed multi vessel disease. Neuro Awake, verbal Cardio Elevated troponins now downtrending NSTEMI leading to new onset CHF Cardiology consulted Lopressor 2.5 mg IV Q12H with holding parameters ASA 325 mg PO daily Digoxin 0.25 mg IV daily Crestor 20 mg PO HS Cardiac cath on 12/28/17 shows multi-vessel disease. Patient will need CABG, but if CT surgery refuses, high risk PCI will need to be performed. Pulm Saturating well on nasal cannula Duoneb Q6H [facility] Liquid Diet per surgery Protonix 40 mg IV Q12 PPN ordered by surgery at low rate Endocrine Accuchecks ACHS Novolog sliding scale ACHS Renal Gentle IV hydration post cardiac cath Infectious Disease Fluconazole 100 mg IV daily Flagyl 500 mg IV Q8H Vancomycin 1 gm IV Q24H ID on consult Prophylaxis Heparin SC Q12H Protonix 40 mg IV Q12 Discussed with Dr[address] Carter <Jesus Carter - Last Filed: 12/28/17 15:19> CCU Objective - Vital Signs / Intake & Output Vital Signs (Last 4 hours): Vital Signs Temp Pulse Resp BP Pulse Ox 12/28/17 13:15 99 H 16 114/72 12/28/17 13:02 95 H 17 107/66 92 L 12/28/17 13:00 95 H 14 93 L 12/28/17 12:48 97 H 14 107/68 91 L 12/28/17 12:45 94 H 15 107/66 12/28/17 12:32 96 H 16 125/61 90 L 12/28/17 12:30 95 H 15 107/68 12/28/17 12:15 94 H 16 125/61 12/28/17 12:06 120/75 12/28/17 12:00 98.4 F 96 H 17 120/75 Intake and Output (Last 8hrs): Intake & Output 12/27/17 12/28/17 12/28/17 22:59 06:59 14:59 Intake Total 941.3 609.6 473.6 Output Total 955 1120 300 Balance -13.7 -510.4 173.6 Weight 143 lb 7 oz Intake: IV 0 Intake, IV Amount 791.3 609.6 353.6 Left Medial Port 336 336 126 Left Proximal Port 400 200 200 Internal Jugular Right Hand 55.3 73.6 27.6 Oral 150 120 Output: Drainage 355 70 Left Nare 275 Right Lower Abdomen 80 70 Urine 600 1050 300 Urine, Voided 600 1050 300 - Medications Active Medications: Active Medications Generic Name Dose Route Start Last Admin Trade Name Freq PRN Reason Stop Dose Admin Albuterol/Ipratropium 3 ml 12/28/17 14:00 Duoneb 3 Mg/0.5 Mg (3 Ml) Ud INH RQ6 [facility] Aspirin 325 mg 12/29/17 10:00 Aspirin PO DAILY [facility] Digoxin 0.25 mg 12/27/17 18:00 12/27/17 17:23 Lanoxin IVP 0.25 mg DAILY@1800 [facility] Administration Heparin Sodium (Porcine) 5,000 units 12/28/17 22:00 Heparin SC Q12 [facility] Metronidazole 500 mg in 100 mls @ 100 mls/hr 12/23/17 03:00 12/28/17 13:42 Flagyl IVPB 100 mls/hr Q8H [facility] Administration Protocol Fluconazole 100 mls @ 100 mls/hr 12/25/17 10:00 12/28/17 12:38 Diflucan Iv 200 Mg/100 Ml Ns IVPB 100 mls/hr DAILY [facility] Administration Protocol BUPIVACAINE 0.125%/0.9% NACL 600 mls @ 4 mls/hr 12/25/17 10:55 12/25/17 19:38 Bupivacaine-Ns 0.125% On-Q [employer] IJ 12/31/17 16:54 Not Given ONCE ONE Vancomycin/Sodium Chloride 1 gm in 200 mls @ 133.333 mls/hr 12/26/17 12:00 13:43 Vancomycin 1 Gm/Ns 200 Ml IVPB 133.333 mls/hr Q24H [facility] Administration Protocol Aztreonam 1 gm/ Sodium 100 mls @ 100 mls/hr 12/27/17 11:00 12/28/17 12:38 Chloride IVPB 100 mls/hr Q12H [facility] Administration Protocol Sodium Chloride 1,000 mls @ 50 mls/hr 12/28/17 12:00 12/28/17 12:40 Sodium Chloride 0.45% IV 12/29/17 23:59 50 mls/hr .Q20H [facility] Administration Insulin Aspart 0 unit 12/28/17 16:30 Novolog SC ACHS [facility] Protocol Metoprolol Tartrate 2.5 mg 12/25/17 09:30 12/28/17 08:55 Lopressor IVP 2.5 mg Q12H [facility] Administration Morphine Sulfate 2 mg 12/25/17 07:43 12/28/17 06:44 Morphine IVP 2 mg Q4 PRN Administration Pain, severe (8-10) Ondansetron HCl 4 mg 12/22/17 16:46 Zofran Inj IVP Q6H PRN Nausea/Vomiting Pantoprazole Sodium 40 mg 12/22/17 22:15 12/28/17 09:14 Protonix Inj IVP 40 mg Q12H [facility] Administration Rosuvastatin Calcium 20 mg 12/28/17 22:00 Crestor PO HS [facility] - Patient Studies Lab Studies: Microbiology Studies 12/22/17 16:24 Blood Culture - Final Blood NO GROWTH AFTER 5 DAYS Gram Stain - Final TEST NOT PERFORMED 12/22/17 16:10 Blood Culture - Final Blood NO GROWTH AFTER 5 DAYS Gram Stain - Final TEST NOT PERFORMED 12/26/17 11:30 Blood Culture - Preliminary Blood NO GROWTH AFTER 24 HOURS 12/26/17 11:00 Blood Culture - Preliminary Blood NO GROWTH AFTER 24 HOURS 12/22/17 22:35 Gram Stain - Final Peritoneal Fluid Body Fluid Culture - Final No growth. Lab Studies 12/28/17 12/28/17 12/28/17 Range/Units 12:14 05:53 05:53 WBC (4.8-10.8) K/uL RBC (4.40-5.90) Mil/uL Hgb (12.0-18.0) g/dL Hct (35.0-51.0) % MCV (80.0-94.0) fL MCH (27.0-31.0) pg MCHC (33.0-37.0) g/dL RDW (11.5-14.5) % Plt Count (130-400) K/uL MPV (7.2-11.7) fL Neut % (Auto) (50.0-75.0) % Lymph % (Auto) (20.0-40.0) % [place] % (Auto) (0.0-10.0) % Eos % (Auto) (0.0-4.0) % Baso % (Auto) (0.0-2.0) % Neut # (Auto) (1.8-7.0) K/uL Lymph # (Auto) (1.0-4.3) K/uL [place] # (Auto) (0.0-0.8) K/uL Eos # (Auto) (0.0-0.7) K/uL Baso # (Auto) (0.0-0.2) K/uL Neutrophils % (Manual) (50-75) % Lymphocytes % (Manual) (20-40) % Monocytes % (Manual) (0-10) % Eosinophils % (Manual) (0-4) % Platelet Estimate (NORMAL) Large Platelets Giant Platelets Hypochromasia (manual) Poikilocytosis (manual Anisocytosis (manual) Ovalocytes [place] Cells APTT 48 H D (21-34) SECONDS Sodium (132-148) mmol/L Potassium (3.6-5.2) mmol/L Chloride (98-107) mmol/L Carbon Dioxide (22-30) mmol/L Anion Gap (10-20) BUN (9-20) mg/dL Creatinine (0.8-1.5) mg/dL Est GFR ( Amer) Est GFR (Non-Af Amer) POC Glucose (mg/dL) 249 H (65-110) mg/dL Random Glucose (75-110) mg/dL Calcium (8.6-10.4) mg/dl Phosphorus (2.5-4.5) mg/dL Magnesium (1.6-2.3) mg/dL Total Bilirubin (0.2-1.3) mg/dL AST (17-59) U/L ALT (21-72) U/L Alkaline Phosphatase (38-126) U/L Total Protein (6.3-8.3) g/dL Albumin (3.5-5.0) g/dL Globulin (2.2-3.9) gm/dL Albumin/Globulin Ratio (1.0-2.1) Digoxin 1.7 (0.8-2.0) ng/mL 12/28/17 12/28/17 12/28/17 Range/Units 05:53 05:53 05:42 WBC 11.0 H (4.8-10.8) K/uL RBC 3.37 L (4.40-5.90) Mil/uL Hgb 9.9 L (12.0-18.0) g/dL Hct 30.6 L (35.0-51.0) % MCV 90.6 (80.0-94.0) fL MCH 29.4 (27.0-31.0) pg MCHC 32.4 L (33.0-37.0) g/dL RDW 13.0 (11.5-14.5) % Plt Count 193 (130-400) K/uL MPV 10.1 (7.2-11.7) fL Neut % (Auto) 87.0 H (50.0-75.0) % Lymph % (Auto) 6.3 L (20.0-40.0) % [place] % (Auto) 5.7 (0.0-10.0) % Eos % (Auto) 0.5 (0.0-4.0) % Baso % (Auto) 0.5 (0.0-2.0) % Neut # (Auto) 9.6 H (1.8-7.0) K/uL Lymph # (Auto) 0.7 L (1.0-4.3) K/uL [place] # (Auto) 0.6 (0.0-0.8) K/uL Eos # (Auto) 0.1 (0.0-0.7) K/uL Baso # (Auto) 0.1 (0.0-0.2) K/uL Neutrophils % (Manual) 86 H (50-75) % Lymphocytes % (Manual) 8 L (20-40) % Monocytes % (Manual) 5 (0-10) % Eosinophils % (Manual) 1 (0-4) % Platelet Estimate Normal (NORMAL) Large Platelets Present Giant Platelets Present Hypochromasia (manual) Slight Poikilocytosis (manual Slight Anisocytosis (manual) Slight Ovalocytes Slight Serjio Cells Slight APTT (21-34) SECONDS Sodium 138 (132-148) mmol/L Potassium 4.0 (3.6-5.2) mmol/L Chloride 102 (98-107) mmol/L Carbon Dioxide 24 (22-30) mmol/L Anion Gap 16 (10-20) BUN 46 H (9-20) mg/dL Creatinine 1.4 (0.8-1.5) mg/dL Est GFR ( Amer) 59 Est GFR (Non-Af Amer) 49 POC Glucose (mg/dL) 277 H (65-110) mg/dL Random Glucose 278 H (75-110) mg/dL Calcium 9.3 (8.6-10.4) mg/dl Phosphorus 3.2 (2.5-4.5) mg/dL Magnesium 1.6 (1.6-2.3) mg/dL Total Bilirubin 0.4 (0.2-1.3) mg/dL AST 19 (17-59) U/L ALT 28 (21-72) U/L Alkaline Phosphatase 65 (38-126) U/L Total Protein 5.2 L (6.3-8.3) g/dL Albumin 2.4 L (3.5-5.0) g/dL Globulin 2.8 (2.2-3.9) gm/dL Albumin/Globulin Ratio 0.8 L (1.0-2.1) Digoxin (0.8-2.0) ng/mL 12/27/17 12/27/17 12/27/17 Range/Units 23:33 21:54 17:41 WBC (4.8-10.8) K/uL RBC (4.40-5.90) Mil/uL Hgb (12.0-18.0) g/dL Hct (35.0-51.0) % MCV (80.0-94.0) fL MCH (27.0-31.0) pg MCHC (33.0-37.0) g/dL RDW (11.5-14.5) % Plt Count (130-400) K/uL MPV (7.2-11.7) fL Neut % (Auto) (50.0-75.0) % Lymph % (Auto) (20.0-40.0) % [place] % (Auto) (0.0-10.0) % Eos % (Auto) (0.0-4.0) % Baso % (Auto) (0.0-2.0) % Neut # (Auto) (1.8-7.0) K/uL Lymph # (Auto) (1.0-4.3) K/uL [place] # (Auto) (0.0-0.8) K/uL Eos # (Auto) (0.0-0.7) K/uL Baso # (Auto) (0.0-0.2) K/uL Neutrophils % (Manual) (50-75) % Lymphocytes % (Manual) (20-40) % Monocytes % (Manual) (0-10) % Eosinophils % (Manual) (0-4) % Platelet Estimate (NORMAL) Large Platelets Giant Platelets Hypochromasia (manual) Poikilocytosis (manual Anisocytosis (manual) Ovalocytes [place] Cells APTT 42 H D (21-34) SECONDS Sodium (132-148) mmol/L Potassium (3.6-5.2) mmol/L Chloride (98-107) mmol/L Carbon Dioxide (22-30) mmol/L Anion Gap (10-20) BUN (9-20) mg/dL Creatinine (0.8-1.5) mg/dL Est GFR ( Amer) Est GFR (Non-Af Amer) POC Glucose (mg/dL) 232 H 227 H (65-110) mg/dL Random Glucose (75-110) mg/dL Calcium (8.6-10.4) mg/dl Phosphorus (2.5-4.5) mg/dL Magnesium (1.6-2.3) mg/dL Total Bilirubin (0.2-1.3) mg/dL AST (17-59) U/L ALT (21-72) U/L Alkaline Phosphatase (38-126) U/L Total Protein (6.3-8.3) g/dL Albumin (3.5-5.0) g/dL Globulin (2.2-3.9) gm/dL Albumin/Globulin Ratio (1.0-2.1) Digoxin (0.8-2.0) ng/mL Laboratory Results - last 24 hr 12/27/17 12/27/17 12/27/17 17:41 21:54 23:33 WBC RBC Hgb Hct MCV MCH MCHC RDW Plt Count MPV Neut % (Auto) Lymph % (Auto) [place] % (Auto) Eos % (Auto) Baso % (Auto) Neut # (Auto) Lymph # (Auto) [place] # (Auto) Eos # (Auto) Baso # (Auto) Neutrophils % (Manual) Lymphocytes % (Manual) Monocytes % (Manual) Eosinophils % (Manual) Platelet Estimate Large Platelets Giant Platelets Hypochromasia (manual) Poikilocytosis (manual Anisocytosis (manual) Ovalocytes Ser[place]io Cells APTT 42 H D Sodium Potassium Chloride Carbon Dioxide Anion Gap BUN Creatinine Est GFR ( Amer) Est GFR (Non-Af Amer) POC Glucose (mg/dL) 227 H 232 H Random Glucose Calcium Phosphorus Magnesium Total Bilirubin AST ALT Alkaline Phosphatase Total Protein Albumin Globulin Albumin/Globulin Ratio Digoxin 12/28/17 12/28/17 12/28/17 05:42 05:53 05:53 WBC 11.0 H RBC 3.37 L Hgb 9.9 L Hct 30.6 L MCV 90.6 MCH 29.4 MCHC 32.4 L RDW 13.0 Plt Count 193 MPV 10.1 Neut % (Auto) 87.0 H Lymph % (Auto) 6.3 L [place] % (Auto) 5.7 Eos % (Auto) 0.5 Baso % (Auto) 0.5 Neut # (Auto) 9.6 H Lymph # (Auto) 0.7 L [place] # (Auto) 0.6 Eos # (Auto) 0.1 Baso # (Auto) 0.1 Neutrophils % (Manual) 86 H Lymphocytes % (Manual) 8 L Monocytes % (Manual) 5 Eosinophils % (Manual) 1 Platelet Estimate Normal Large Platelets Present Giant Platelets Present Hypochromasia (manual) Slight Poikilocytosis (manual Slight Anisocytosis (manual) Slight Ovalocytes Slight Serjio Cells Slight APTT Sodium 138 Potassium 4.0 Chloride 102 Carbon Dioxide 24 Anion Gap 16 BUN 46 H Creatinine 1.4 Est GFR ( Amer) 59 Est GFR (Non-Af Amer) 49 POC Glucose (mg/dL) 277 H Random Glucose 278 H Calcium 9.3 Phosphorus 3.2 Magnesium 1.6 Total Bilirubin 0.4 AST 19 ALT 28 Alkaline Phosphatase 65 Total Protein 5.2 L Albumin 2.4 L Globulin 2.8 Albumin/Globulin Ratio 0.8 L Digoxin 12/28/17 12/28/17 12/28/17 05:53 05:53 12:14 WBC RBC Hgb Hct MCV MCH MCHC RDW Plt Count MPV Neut % (Auto) Lymph % (Auto) [place] % (Auto) Eos % (Auto) Baso % (Auto) Neut # (Auto) Lymph # (Auto) [place] # (Auto) Eos # (Auto) Baso # (Auto) Neutrophils % (Manual) Lymphocytes % (Manual) Monocytes % (Manual) Eosinophils % (Manual) Platelet Estimate Large Platelets Giant Platelets Hypochromasia (manual) Poikilocytosis (manual Anisocytosis (manual) Ovalocytes [place] Cells APTT 48 H D Sodium Potassium Chloride Carbon Dioxide Anion Gap BUN Creatinine Est GFR ( Amer) Est GFR (Non-Af Amer) POC Glucose (mg/dL) 249 H Random Glucose Calcium Phosphorus Magnesium Total Bilirubin AST ALT Alkaline Phosphatase Total Protein Albumin Globulin Albumin/Globulin Ratio Digoxin 1.7 Critical Care Progress Note - Nutrition Nutrition: Nutrition Category Date Time Status Liquid Diet [DIET] Diets 12/27/17 Lunch Active Assessment/Plan (1) Perforated abdominal viscus Current Visit: Yes Status: Acute Attending/Attestation - Attestation I have personally seen and examined this patient.: Yes I have fully participated in the care of the patient.: Yes I have reviewed all pertinent clinical information: Yes Notes (Text): 12/28/17 14:01 I have seen and examined the patient. Medical records, lab studies, and imaging were reviewed by me and a management plan was formulated on multidisciplinary rounds with resident Dr. Vincent. I agree with their documented assessment and plan. 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 Considering CABG vs re-stenting. Continue medical therapy with ASA, beta blockers and statins. Sepsis from recent duodenal perforation and aspiration pneumonia is stable and improving. Critical Care Time 35 minutes. Multi-disciplinary rounds were performed with house staff, nursing, speech therapy, respiratory therapy, pharmacy and nutrition with integrated input from the primary team/attending and other consulting services. The documented time is cumulative and includes review of patient data/exams/labs/chart review and examination of the patient on rounds and throughout the day; time is exclusive of any procedures or teaching time. 12/28/17 14:12 12/28/17 15:18
[2017-12-28] MEDS: Vancomycin 1 gm/NS 200 ml 1 GM/200 ML BAG IVPB SCH (13:43)
[2017-12-28] MEDS: Albuterol-Ipratrop 3 mg / 0.5 (3 ml) UD INH SCH ×2 (14:40→20:11)
[2017-12-28] MEDS: Digoxin 500 mcg/2ml (0.5 mg/2ml) Inj IVP SCH (17:17)
[2017-12-28] MEDS ORDERED: PPN IV ONE (18:00)
[2017-12-28] MEDS ORDERED: (Lantus) Insulin Glargine, Recombinant SC SCH (22:00)
--- NOTE | 2017-12-28 22:58 | CP.PCM.PN ---
Subjective - Date & Time of Evaluation Date of Evaluation: 12/28/17 Time of Evaluation: 22:58 - Subjective Subjective: CHIEF COMPLAINTS TODAY : afebrile. c/o abdominal pain but much less TOLERATED clear liquids yesterday. He is going for cardiac cath today, remains NPO this morning for procedure. ROS. HEENT : N. Resp : No cough, wheezing ,pleuritic CP ,or hemoptysis Cardio : No anginal CP, PND, orthopnea, palpitation GI : +VE ABDOMINAL PAIN, NO n/v ,diarrhea or GI bleeding . BANKING MANAGER : No headache, vertigo, focal deficit. Musculoskel : No joint swelling , Derm : No rash Psych : Normal affect. Ext : No swelling ,calf pain PE. Pt. is alert awake in no distress. V.S As noted in the chart Head ,ear nose,throat and eyes : Normal. Neck : Supple with normal carotids. Lungs: Clear air entry. Heart : S1 & S2 normal with S4. No murmur. Abd : SOFT, MILD TENDERNESS POSTOPERATIVE SITE, +VE J.PEREZ SEROUS SANGUINOUS DRAINAGE Neuro : Moves all ext. with no localized deficit. Ext : No edema with intact pulses.Non tender calves Derm : No rashes or decubitus ulcer. LABS/RADIOLOGY: REVIEWED CREATININE 1.6/bun 48 wbc 10.3 TROPONINS DECREASING. BLOOD CULTURES 12/26/17 -VE GROWTH TO DATE. chest x-ray 12/27/17-no active disease. Objective - Vital Signs/Intake and Output Vital Signs (last 24 hours): Temp Pulse Resp BP Pulse Ox 98.4 F 111 H 13 120/63 94 L 12/28/17 20:00 12/28/17 21:08 12/28/17 21:08 12/28/17 21:08 12/28/17 21:08 Intake and Output: 12/28/17 12/29/17 18:59 06:59 Intake Total 1213.6 200 Output Total 920 420 Balance 293.6 -220 - Medications Medications: Current Medications Albuterol/Ipratropium (Duoneb 3 Mg/0.5 Mg (3 Ml) Ud) 3 ml INH RQ6 [facility] Last Admin: 12/28/17 20:11 Dose: 3 ml Aspirin (Aspirin) 325 mg PO DAILY [facility] Digoxin (Lanoxin) 0.25 mg IVP DAILY@1800 [facility] Last Admin: 12/28/17 17:17 Dose: 0.25 mg Heparin Sodium (Porcine) (Heparin) 5,000 units SC Q12 [facility] Last Admin: 12/28/17 21:44 Dose: 5,000 units Metronidazole (Flagyl) 500 mg in 100 mls @ 100 mls/hr IVPB Q8H [facility] PRN Reason: Protocol Last Admin: 12/28/17 18:00 Dose: 100 mls/hr Fluconazole (Diflucan Iv 200 Mg/100 Ml Ns) 100 mls @ 100 mls/hr IVPB DAILY [facility] PRN Reason: Protocol Last Admin: 12/28/17 12:38 Dose: 100 mls/hr BUPIVACAINE 0.125%/0.9% NACL (Bupivacaine-Ns 0.125% On-Q Head Still Operator) 600 mls @ 4 mls/ hr IJ ONCE ONE Stop: 12/31/17 16:54 Last Admin: 12/25/17 19:38 Dose: Not Given Vancomycin/Sodium Chloride (Vancomycin 1 Gm/Ns 200 Ml) 1 gm in 200 mls @ 133.333 mls/hr IVPB Q24H [facility] PRN Reason: Protocol Last Admin: 12/28/17 13:43 Dose: 133.333 mls/hr Aztreonam 1 gm/ Sodium (Chloride) 100 mls @ 100 mls/hr IVPB Q12H [facility] PRN Reason: Protocol Last Admin: 12/28/17 12:38 Dose: 100 mls/hr Sodium Chloride (Sodium Chloride 0.45%) 1,000 mls @ 50 mls/hr IV .Q20H [facility] Stop: 12/29/17 23:59 Last Admin: 12/28/17 12:40 Dose: 50 mls/hr Insulin Aspart (Novolog) 0 unit SC ACHS [facility] PRN Reason: Protocol Last Admin: 12/28/17 16:18 Dose: 4 unit Metoprolol Tartrate (Lopressor) 2.5 mg IVP Q12H [facility] Last Admin: 12/28/17 21:43 Dose: 2.5 mg Morphine Sulfate (Morphine) 2 mg IVP Q4 PRN PRN Reason: Pain, severe (8-10) Last Admin: 12/28/17 19:03 Dose: 2 mg Ondansetron HCl (Zofran Inj) 4 mg IVP Q6H PRN PRN Reason: Nausea/Vomiting Pantoprazole Sodium (Protonix Inj) 40 mg IVP Q12H [facility] Last Admin: 12/28/17 21:44 Dose: 40 mg Rosuvastatin Calcium (Crestor) 20 mg PO HS [facility] Last Admin: 12/28/17 21:44 Dose: 20 mg - Labs Labs: 12/28/17 05:53 12/28/17 05:53 PT 12.5 SECONDS (9.7-12.2) H 12/22/17 16:18 INR 1.1 12/22/17 16:18 APTT 48 SECONDS (21-34) H D 12/28/17 05:53 Assessment and Plan (1) Sepsis associated hypotension Status: Acute (2) Perforated abdominal viscus Status: Acute (3) Status post exploratory laparotomy Status: Acute (4) Acute non-ST elevation myocardial infarction (NSTEMI) Status: Acute (5) CHF (congestive heart failure) Status: Acute (6) Diabetes mellitus Status: Acute - Assessment and Plan (Free Text) Plan: CONTINUE IV Azactam 1 g IV piggyback every 12 hourly. 12/26/17 PATIENT TOLERATED FIRST DOSE WITHOUT ANY REACTIONS. ON IV vancomycin 1 g once a day daily for gram-positive/enterococcal coverage with intra-abdominal sepsis.12/26/17 Continue IV Flagyl 500 every 8 hourly 12/22/17 continue IV fluconazole 100 mg once a day daily 12/22/17. PATIENT FOR CARDIAC CATH TODAY. NPO SINCE MIDNIGHT.
--- NOTE | 2017-12-28 23:29 | CP.PCM.PN ---
Objective - Vital Signs/Intake and Output Vital Signs (last 24 hours): Temp Pulse Resp BP Pulse Ox 98.4 F 111 H 13 120/63 94 L 12/28/17 20:00 12/28/17 21:08 12/28/17 21:08 12/28/17 21:08 12/28/17 21:08 Intake and Output: 12/28/17 12/29/17 18:59 06:59 Intake Total 1213.6 200 Output Total 920 420 Balance 293.6 -220 - Medications Medications: Current Medications Albuterol/Ipratropium (Duoneb 3 Mg/0.5 Mg (3 Ml) Ud) 3 ml INH RQ6 [facility] Last Admin: 12/28/17 20:11 Dose: 3 ml Aspirin (Aspirin) 325 mg PO DAILY [facility] Digoxin (Lanoxin) 0.25 mg IVP DAILY@1800 [facility] Last Admin: 12/28/17 17:17 Dose: 0.25 mg Heparin Sodium (Porcine) (Heparin) 5,000 units SC Q12 [facility] Last Admin: 12/28/17 21:44 Dose: 5,000 units Metronidazole (Flagyl) 500 mg in 100 mls @ 100 mls/hr IVPB Q8H [facility] PRN Reason: Protocol Last Admin: 12/28/17 18:00 Dose: 100 mls/hr Fluconazole (Diflucan Iv 200 Mg/100 Ml Ns) 100 mls @ 100 mls/hr IVPB DAILY [facility] PRN Reason: Protocol Last Admin: 12/28/17 12:38 Dose: 100 mls/hr BUPIVACAINE 0.125%/0.9% NACL (Bupivacaine-Ns 0.125% On-Q Tea Leaf Reader) 600 mls @ 4 mls/ hr IJ ONCE ONE Stop: 12/31/17 16:54 Last Admin: 12/25/17 19:38 Dose: Not Given Vancomycin/Sodium Chloride (Vancomycin 1 Gm/Ns 200 Ml) 1 gm in 200 mls @ 133.333 mls/hr IVPB Q24H [facility] PRN Reason: Protocol Last Admin: 12/28/17 13:43 Dose: 133.333 mls/hr Aztreonam 1 gm/ Sodium (Chloride) 100 mls @ 100 mls/hr IVPB Q12H [facility] PRN Reason: Protocol Last Admin: 12/28/17 12:38 Dose: 100 mls/hr Sodium Chloride (Sodium Chloride 0.45%) 1,000 mls @ 50 mls/hr IV .Q20H [facility] Stop: 12/29/17 23:59 Last Admin: 12/28/17 12:40 Dose: 50 mls/hr Insulin Aspart (Novolog) 0 unit SC ACHS [facility] PRN Reason: Protocol Last Admin: 12/28/17 16:18 Dose: 4 unit Metoprolol Tartrate (Lopressor) 2.5 mg IVP Q12H [facility] Last Admin: 12/28/17 21:43 Dose: 2.5 mg Morphine Sulfate (Morphine) 2 mg IVP Q4 PRN PRN Reason: Pain, severe (8-10) Last Admin: 12/28/17 19:03 Dose: 2 mg Ondansetron HCl (Zofran Inj) 4 mg IVP Q6H PRN PRN Reason: Nausea/Vomiting Pantoprazole Sodium (Protonix Inj) 40 mg IVP Q12H [facility] Last Admin: 12/28/17 21:44 Dose: 40 mg Rosuvastatin Calcium (Crestor) 20 mg PO HS [facility] Last Admin: 12/28/17 21:44 Dose: 20 mg - Labs Labs: 12/28/17 05:53 12/28/17 05:53 PT 12.5 SECONDS (9.7-12.2) H 12/22/17 16:18 INR 1.1 12/22/17 16:18 APTT 48 SECONDS (21-34) H D 12/28/17 05:53 Assessment and Plan (1) Perforated abdominal viscus Status: Acute (2) Diabetes mellitus Status: Acute (3) GERD (gastroesophageal reflux disease) Status: Acute (4) Acute non-ST elevation myocardial infarction (NSTEMI) Status: Acute
[2017-12-29] MEDS: Albuterol-Ipratrop 3 mg / 0.5 (3 ml) UD INH SCH ×4 (01:52→21:04)
[2017-12-29] MEDS: Morphine 4 MG/ML VIAL IVP PRN ×2 (02:40→07:34)
[2017-12-29 06:24] LABS: BASO % 0.3 % (0.0-2.0); EOS % 0.1 % (0.0-4.0); HEMOGLOBIN 9.2 g/dL (12.0-18.0); LYMPH # 0.4 K/uL (1.0-4.3); LYMPH % 3.3 % (20.0-40.0); MEAN CELL VOLUME 90.9 fL (80.0-94.0); MEAN PLATELET VOLUME 9.8 fL (7.2-11.7); MONO # 0.6 K/uL (0.0-0.8); MONO % 5.2 % (0.0-10.0); NEUT # 10.6 K/uL (1.8-7.0); NEUT % 91.1 % (50.0-75.0); PLATELET COUNT 244 K/uL (130-400); RBC 3.07 Mil/uL (4.40-5.90); WHITE BLOOD COUNT 11.6 K/uL (4.8-10.8)
[2017-12-29 06:44] LABS: ALB/GLOB RATIO 0.8 (1.0-2.1); ALBUMIN 2.4 g/dL (3.5-5.0); CALCIUM 9.2 mg/dl (8.6-10.4)
[2017-12-29] MEDS: Magnesium Sulfate 1 gm in D5W 1 GM/100 ML BAG IVPB ONE ×2 (08:01→08:02)
[2017-12-29] MEDS: (Novolog) Insulin Aspart, Recombinant 100 u/ml 10 ml vial SC SCH ×4 (08:01→21:43)
[2017-12-29] MEDS: Sodium Chloride 0.45% 1,000 ML IV SCH (08:02)
[2017-12-29 08:13] LABS: ANISOCYTOSIS SLIGHT; HYPOCHROMIC SLIGHT; LYMPHOCYTE 2 % (20-40); MONOCYTE 5 % (0-10); NEUTROPHIL 93 % (50-75); PLATELET ESTIMATE NORMAL (NORMAL); POIKILOCYTOSIS SLIGHT; TOTAL CELLS COUNTED 100
[2017-12-29 08:14] LABS: BURR CELLS SLIGHT
--- NOTE | 2017-12-29 08:49 | CP.PCM.PN ---
<Albertina Tejada - Last Filed: 12/29/17 09:05> Subjective - Date & Time of Evaluation Date of Evaluation: 12/29/17 Time of Evaluation: 07:30 - Subjective Subjective: General surgery progress note for Dr. Villa-Albertina Tejada, PGY-1 Pt S & E at bedside. Pt reports continued pain overnight, is on VM due to poor saturation. Tolerating CLD. Reports some SOB, no CP. Denies N & V, F & C. Has a [place] catheter in place. Had cardiac cath yesterday with findings of multivessel disease, CT surgery consulted. Constantino with 20cc serosanguinous output/12H. Objective - Vital Signs/Intake and Output Vital Signs (last 24 hours): Temp Pulse Resp BP Pulse Ox 98.5 F 105 H 12 106/60 97 12/29/17 04:00 12/29/17 06:08 12/29/17 06:08 12/29/17 06:08 12/29/17 06:08 Intake and Output: 12/29/17 12/29/17 06:59 18:59 Intake Total 990 Output Total 1270 Balance -280 - Medications Medications: Current Medications Albuterol/Ipratropium (Duoneb 3 Mg/0.5 Mg (3 Ml) Ud) 3 ml INH RQ6 [facility] Last Admin: 12/29/17 08:31 Dose: Not Given Aspirin (Aspirin) 325 mg PO DAILY [facility] Digoxin (Lanoxin) 0.25 mg IVP DAILY@1800 [facility] Last Admin: 12/28/17 17:17 Dose: 0.25 mg Heparin Sodium (Porcine) (Heparin) 5,000 units SC Q12 [facility] Last Admin: 12/28/17 21:44 Dose: 5,000 units Metronidazole (Flagyl) 500 mg in 100 mls @ 100 mls/hr IVPB Q8H [facility] PRN Reason: Protocol Last Admin: 12/28/17 18:00 Dose: 100 mls/hr Fluconazole (Diflucan Iv 200 Mg/100 Ml Ns) 100 mls @ 100 mls/hr IVPB DAILY [facility] PRN Reason: Protocol Last Admin: 12/28/17 12:38 Dose: 100 mls/hr BUPIVACAINE 0.125%/0.9% NACL (Bupivacaine-Ns 0.125% On-Q Marketing Information Coordinator) 600 mls @ 4 mls/ hr IJ ONCE ONE Stop: 12/31/17 16:54 Last Admin: 12/25/17 19:38 Dose: Not Given Vancomycin/Sodium Chloride (Vancomycin 1 Gm/Ns 200 Ml) 1 gm in 200 mls @ 133.333 mls/hr IVPB Q24H [facility] PRN Reason: Protocol Last Admin: 12/28/17 13:43 Dose: 133.333 mls/hr Aztreonam 1 gm/ Sodium (Chloride) 100 mls @ 100 mls/hr IVPB Q12H [facility] PRN Reason: Protocol Last Admin: 12/28/17 23:47 Dose: 100 mls/hr Sodium Chloride (Sodium Chloride 0.45%) 1,000 mls @ 50 mls/hr IV .Q20H [facility] Stop: 12/29/17 23:59 Last Admin: 12/29/17 08:02 Dose: Not Given Magnesium Sulfate/Dextrose (Magnesium Sulfate 1 Gm/100 Ml D5w) 1 gm in 100 mls @ 100 mls/hr IVPB ONCE ONE Stop: 12/29/17 08:59 Last Admin: 12/29/17 08:02 Dose: Not Given Insulin Aspart (Novolog) 0 unit SC ACHS [facility] PRN Reason: Protocol Last Admin: 12/29/17 08:01 Dose: 8 unit Metoprolol Tartrate (Lopressor) 2.5 mg IVP Q12H [facility] Last Admin: 12/28/17 21:43 Dose: 2.5 mg Morphine Sulfate (Morphine) 2 mg IVP Q4 PRN PRN Reason: Pain, severe (8-10) Last Admin: 12/29/17 07:34 Dose: 2 mg Ondansetron HCl (Zofran Inj) 4 mg IVP Q6H PRN PRN Reason: Nausea/Vomiting Pantoprazole Sodium (Protonix Inj) 40 mg IVP Q12H [facility] Last Admin: 12/28/17 21:44 Dose: 40 mg Rosuvastatin Calcium (Crestor) 20 mg PO HS [facility] Last Admin: 12/28/17 21:44 Dose: 20 mg - Labs Labs: 12/29/17 06:15 12/29/17 06:15 PT 12.5 SECONDS (9.7-12.2) H 12/22/17 16:18 INR 1.1 12/22/17 16:18 APTT 48 SECONDS (21-34) H D 12/28/17 05:53 - Constitutional Appears: Non-toxic, No Acute Distress - Head Exam Head Exam: ATRAUMATIC, NORMAL INSPECTION, NORMOCEPHALIC - Eye Exam Eye Exam: EOMI, Normal appearance - ENT Exam ENT Exam: Mucous Membranes Moist, Normal Exam - Neck Exam Neck Exam: Full ROM. absent: Normal Inspection ([facility] TLC in place) - Respiratory Exam Respiratory Exam: NORMAL BREATHING PATTERN (on VM) - Cardiovascular Exam Cardiovascular Exam: REGULAR RHYTHM, +S1, +S2 - GI/Abdominal Exam GI & Abdominal Exam: Guarding, Soft, Tenderness (Over surgical midline incision site). absent: Distended, Firm - Extremities Exam Extremities Exam: Normal Inspection - Neurological Exam Neurological Exam: Alert, Awake, CN II-XII Intact, Oriented x3 - Psychiatric Exam Psychiatric exam: Normal Affect, Normal Mood - Skin Skin Exam: Dry, Intact, Normal Color, Warm Additional comments: Midline incision with panda in place, no erythema or drainage noted. Constantino insertion site with dressing in place- clean/dry/intact Assessment and Plan - Assessment and Plan (Free Text) Assessment: 77M POD#7 s/p ex-lap & Colin patch for duodenal perforation, post-op NSTEMI Plan: Cont CLD Con PPN until adequate PO intake OOBTC PT Pain control Monitor drain output Encourage IS use Further mgmt as per ICU, primary, cardiac and CT surgery teams DW attending Mallory, PGY-1 <Fred Villa B - Last Filed: 01/06/18 18:46> Objective - Vital Signs/Intake and Output Vital Signs (last 24 hours): Temp Pulse Resp BP Pulse Ox 97.1 F L 94 H 16 137/77 95 01/06/18 18:00 01/06/18 18:00 01/06/18 18:00 01/06/18 18:22 01/06/18 18:00 Intake and Output: 01/06/18 01/06/18 06:59 18:59 Intake Total 960 Output Total 300 Balance 660 - Medications Medications: Current Medications Albuterol/Ipratropium (Duoneb 3 Mg/0.5 Mg (3 Ml) Ud) 3 ml INH RQ6 [facility] Last Admin: 01/06/18 07:36 Dose: 3 ml Aspirin (Aspirin) 325 mg PO DAILY [facility] Last Admin: 01/06/18 09:52 Dose: 325 mg Heparin Sodium (Porcine) (Heparin) 5,000 units SC Q12 [facility] Last Admin: 01/06/18 09:52 Dose: 5,000 units Insulin Detemir (Levemir) 15 unit SC Q12 [facility] Last Admin: 01/06/18 09:52 Dose: 15 unit Insulin Human Regular (Novolin R) 0 unit SC Q6H [facility] PRN Reason: Protocol Last Admin: 01/06/18 18:22 Dose: 6 unit Metoprolol Tartrate (Lopressor) 25 mg PO BID [facility] Last Admin: 01/06/18 18:22 Dose: 25 mg Ondansetron HCl (Zofran Inj) 4 mg IVP Q6H PRN PRN Reason: Nausea/Vomiting Oxycodone/Acetaminophen (Percocet 5/325 Mg Tab) 1 tab PO Q4H PRN PRN Reason: Pain, moderate (4-7) Stop: 01/07/18 20:10 Last Admin: 01/05/18 04:38 Dose: 1 tab Pantoprazole Sodium (Protonix Inj) 40 mg IVP Q12H [facility] Last Admin: 01/06/18 09:51 Dose: 40 mg Rosuvastatin Calcium (Crestor) 20 mg PO [facility] Last Admin: 01/05/18 21:19 Dose: 20 mg Sertraline HCl (Zoloft) 25 mg PO DAILY [facility] Last Admin: 01/06/18 09:53 Dose: 25 mg Trazodone HCl (Desyrel) 25 mg PO [facility] Last Admin: 01/05/18 21:19 Dose: 25 mg - Labs Labs: 01/06/18 06:21 01/06/18 06:21 PT 12.5 SECONDS (9.7-12.2) H 12/22/17 16:18 INR 1.1 12/22/17 16:18 APTT 48 SECONDS (21-34) H D 12/28/17 05:53 Attending/Attestation - Attestation I have personally seen and examined this patient.: Yes I have fully participated in the care of the patient.: Yes I have reviewed all pertinent clinical information, including history, physical exam and plan: Yes Notes (Text): Pt was seen and examined at bedside Agree with above note and assessment Pt is stable Tolerating liquids, Unable to eat soft diet C/w IV antibiotics c/w current mx as per ICU team Plan d.w pt and primary team in detail
--- NOTE | 2017-12-29 08:55 | CP.PCM.CON ---
History of Present Illness - History of Present Illness History of Present Illness: Cardiothoracic consult for Dr. Martinez Consulted for: CAD with need for CABG Patient is a 77M with PMH of GERD, HTN, DM, and HLD who presented to the ED 7 days ago for perforated duodenal ulcer and underwent exploratory laparotomy with rachelle patch. Patient was admitted tot the ICU and had severe tachycardia post op. Patient was found to have pneumonia, pleural effusions, and an elevated troponin on hospital day 3. EKG showed no ST elevations and patient was started on IV heparin for NSTEMI, echo was performed showing normal EF. Patient went for a cardiac catheterization on 12/28 which showed, L Main: Distal 60%, LAD: Ostial and proximal 85%, Mid LAD 90% stenosis, RCA: Mid 60%. Consult for cardiothoracic surgery for CABG was placed. Patient was placed on non-rebreather mask after the cardiac cath for low SPO2 and has some SOB and epigastric pain. Patient denies any chest pain, pain radiating to the jaw or left arm. Patient has no history of any coronary events or heart disease. PMH: HTN, HLD, DM, refux PSH: R knee replacement All: PCN SH: Denies ETOH, tobacco or illicit drug use Review of Systems - Review of Systems All systems: reviewed and no additional remarkable complaints except (as per HPI ) Past Patient History - Infectious Disease Hx of Infectious Diseases: None - Past Medical History & Family History Past Medical History?: Yes - Past Social History Smoking Status: Never Smoked Alcohol: None Drugs: Denies - CARDIAC Hx Hypercholesterolemia: Yes Hx Hypertension: Yes - PULMONARY Hx Respiratory Disorders: No - NEUROLOGICAL Hx Neurological Disorder: Yes Hx Syncope: Yes - HEENT Hx HEENT Problems: No - RENAL Hx Chronic Kidney Disease: No - ENDOCRINE/METABOLIC Hx Diabetes Mellitus Type 2: Yes - HEMATOLOGICAL/ONCOLOGICAL Hx Blood Disorders: No - INTEGUMENTARY Hx Dermatological Problems: No - MUSCULOSKELETAL/RHEUMATOLOGICAL Hx Arthritis: Yes (L TKR) - GASTROINTESTINAL Hx Gastrointestinal Disorders: Yes Hx Gastroesophageal Reflux: Yes - GENITOURINARY/GYNECOLOGICAL Hx Genitourinary Disorders: No - PSYCHIATRIC Hx Substance Use: No - SURGICAL HISTORY Hx Surgeries: Yes Other/Comment: left knee replacement, and left nerve repair, left and right hand nerve repair - ANESTHESIA Hx Anesthesia: Yes Hx Anesthesia Reactions: No Hx Malignant Hyperthermia: No Has any member of the family had a problem w/ anesthesia?: No Meds Allergies/Adverse Reactions: Allergies Allergy/AdvReac Type Severity Reaction Status Date / Time Penicillins Allergy Mild Verified 12/22/17 11:50 - Medications Medications: Current Medications Albuterol/Ipratropium (Duoneb 3 Mg/0.5 Mg (3 Ml) Ud) 3 ml INH RQ6 [facility] Last Admin: 12/29/17 08:31 Dose: Not Given Aspirin (Aspirin) 325 mg PO DAILY [facility] Digoxin (Lanoxin) 0.25 mg IVP DAILY@1800 [facility] Last Admin: 12/28/17 17:17 Dose: 0.25 mg Heparin Sodium (Porcine) (Heparin) 5,000 units SC Q12 [facility] Last Admin: 12/28/17 21:44 Dose: 5,000 units Metronidazole (Flagyl) 500 mg in 100 mls @ 100 mls/hr IVPB Q8H [facility] PRN Reason: Protocol Last Admin: 12/28/17 18:00 Dose: 100 mls/hr Fluconazole (Diflucan Iv 200 Mg/100 Ml Ns) 100 mls @ 100 mls/hr IVPB DAILY [facility] PRN Reason: Protocol Last Admin: 12/28/17 12:38 Dose: 100 mls/hr BUPIVACAINE 0.125%/0.9% NACL (Bupivacaine-Ns 0.125% On-Q Engine [place]) 600 mls @ 4 mls/ hr IJ ONCE ONE Stop: 12/31/17 16:54 Last Admin: 12/25/17 19:38 Dose: Not Given Vancomycin/Sodium Chloride (Vancomycin 1 Gm/Ns 200 Ml) 1 gm in 200 mls @ 133.333 mls/hr IVPB Q24H [facility] PRN Reason: Protocol Last Admin: 12/28/17 13:43 Dose: 133.333 mls/hr Aztreonam 1 gm/ Sodium (Chloride) 100 mls @ 100 mls/hr IVPB Q12H [facility] PRN Reason: Protocol Last Admin: 12/28/17 23:47 Dose: 100 mls/hr Sodium Chloride (Sodium Chloride 0.45%) 1,000 mls @ 50 mls/hr IV .Q20H [facility] Stop: 12/29/17 23:59 Last Admin: 12/29/17 08:02 Dose: Not Given Magnesium Sulfate/Dextrose (Magnesium Sulfate 1 Gm/100 Ml D5w) 1 gm in 100 mls @ 100 mls/hr IVPB ONCE ONE Stop: 12/29/17 08:59 Last Admin: 12/29/17 08:02 Dose: Not Given Insulin Aspart (Novolog) 0 unit SC ACHS [facility] PRN Reason: Protocol Last Admin: 12/29/17 08:01 Dose: 8 unit Metoprolol Tartrate (Lopressor) 2.5 mg IVP Q12H [facility] Last Admin: 12/28/17 21:43 Dose: 2.5 mg Morphine Sulfate (Morphine) 2 mg IVP Q4 PRN PRN Reason: Pain, severe (8-10) Last Admin: 12/29/17 07:34 Dose: 2 mg Ondansetron HCl (Zofran Inj) 4 mg IVP Q6H PRN PRN Reason: Nausea/Vomiting Pantoprazole Sodium (Protonix Inj) 40 mg IVP Q12H [facility] Last Admin: 12/28/17 21:44 Dose: 40 mg Rosuvastatin Calcium (Crestor) 20 mg PO HS [facility] Last Admin: 12/28/17 21:44 Dose: 20 mg Physical Exam - Constitutional Appears: In Acute Distress (d/t pain) - Head Exam Head Exam: ATRAUMATIC, NORMOCEPHALIC - Eye Exam Eye Exam: Normal appearance. absent: Conjunctival injection, Scleral icterus - ENT Exam ENT Exam: Mucous Membranes Moist, Normal Oropharynx - Respiratory Exam Respiratory Exam: Rhonchi. absent: Accessory Muscle Use Additional comments: tachypnea - GI/Abdominal Exam GI & Abdominal Exam: Soft, Tenderness (epigastric and dariusz-incisional tenderness ). absent: Distended, Rebound Additional comments: incision well approximated with panda, no drainage, Constantino drain with minimal amount of sero-sanguinous output - Extremities Exam Extremities exam: Negative for: calf tenderness, pedal edema - Neurological Exam Neurological exam: Alert, Oriented x3 - Psychiatric Exam Psychiatric exam: Normal Affect, Normal Mood - Skin Skin Exam: Dry, Normal Color, Warm Results - Vital Signs Recent Vital Signs: Last Vital Signs Temp 98.5 F 12/29/17 04:00 Pulse 105 H 12/29/17 06:08 Resp 12 12/29/17 06:08 BP 106/60 12/29/17 06:08 Pulse Ox 97 12/29/17 06:08 - Labs Result Diagrams: 12/29/17 06:15 12/29/17 06:15 Labs: Laboratory Results - last 24 hr 12/28/17 12/28/17 12/28/17 12:14 16:06 21:11 WBC RBC Hgb Hct MCV MCH MCHC RDW Plt Count MPV Neut % (Auto) Lymph % (Auto) [place] % (Auto) Eos % (Auto) Baso % (Auto) Neut # (Auto) Lymph # (Auto) [place] # (Auto) Eos # (Auto) Baso # (Auto) Neutrophils % (Manual) Lymphocytes % (Manual) Monocytes % (Manual) Platelet Estimate Hypochromasia (manual) Poikilocytosis (manual Anisocytosis (manual) Serjio Cells Sodium Potassium Chloride Carbon Dioxide Anion Gap BUN Creatinine Est GFR ( Amer) Est GFR (Non-Af Amer) POC Glucose (mg/dL) 249 H 241 H 230 H Random Glucose Calcium Phosphorus Magnesium Total Bilirubin AST ALT Alkaline Phosphatase Total Protein Albumin Globulin Albumin/Globulin Ratio Vancomycin Trough 12/29/17 12/29/17 12/29/17 06:15 06:15 06:15 WBC 11.6 H RBC 3.07 L Hgb 9.2 L Hct 27.9 L MCV 90.9 MCH 30.0 MCHC 33.0 RDW 13.0 Plt Count 244 MPV 9.8 Neut % (Auto) 91.1 H Lymph % (Auto) 3.3 L [place] % (Auto) 5.2 Eos % (Auto) 0.1 Baso % (Auto) 0.3 Neut # (Auto) 10.6 H Lymph # (Auto) 0.4 L [place] # (Auto) 0.6 Eos # (Auto) 0.0 Baso # (Auto) 0.0 Neutrophils % (Manual) 93 H Lymphocytes % (Manual) 2 L Monocytes % (Manual) 5 Platelet Estimate Normal Hypochromasia (manual) Slight Poikilocytosis (manual Slight Anisocytosis (manual) Slight Serjio Cells Slight Sodium 140 Potassium 4.3 Chloride 103 Carbon Dioxide 21 L Anion Gap 21 H BUN 42 H Creatinine 1.4 Est GFR ( Amer) 59 Est GFR (Non-Af Amer) 49 POC Glucose (mg/dL) Random Glucose 309 H Calcium 9.2 Phosphorus 4.2 Magnesium 1.6 Total Bilirubin 0.5 AST 20 ALT 21 D Alkaline Phosphatase 63 Total Protein 5.4 L Albumin 2.4 L Globulin 3.0 Albumin/Globulin Ratio 0.8 L Vancomycin Trough 14.2 H 12/29/17 07:43 WBC RBC Hgb Hct MCV MCH MCHC RDW Plt Count MPV Neut % (Auto) Lymph % (Auto) [place] % (Auto) Eos % (Auto) Baso % (Auto) Neut # (Auto) Lymph # (Auto) [place] # (Auto) Eos # (Auto) Baso # (Auto) Neutrophils % (Manual) Lymphocytes % (Manual) Monocytes % (Manual) Platelet Estimate Hypochromasia (manual) Poikilocytosis (manual Anisocytosis (manual) Serjio Cells Sodium Potassium Chloride Carbon Dioxide Anion Gap BUN Creatinine Est GFR ( Amer) Est GFR (Non-Af Amer) POC Glucose (mg/dL) 304 H Random Glucose Calcium Phosphorus Magnesium Total Bilirubin AST ALT Alkaline Phosphatase Total Protein Albumin Globulin Albumin/Globulin Ratio Vancomycin Trough Assessment & Plan - Assessment and Plan (Free Text) Assessment: 77M with multivessel coronary disease Plan: -Troponin 2 today, down from 8 5 days ago -Continue heparin drip -ICU management -Follow cardiology consult -Dr. Martinez contacted, awaiting further plans per him Barby Monteiro, PGY2
--- NOTE | 2017-12-29 09:20 | RAD ---
Chest x-ray single frontal view History: Shortness of breath. Comparison: 12/27/2017 Findings: Moderate to severe venous congestion. Moderate bilateral pleural effusions. Moderate airspace opacification in the mid to lower lung zones. Cardiomegaly. Scoliotic curvature of the spine. Impression: Moderate to severe venous congestion. Moderate bilateral pleural effusions. Moderate airspace opacification in the mid to lower lung zones. Cardiomegaly.
--- NOTE | 2017-12-29 09:24 | RAD ---
Chest x-ray single frontal view History: Dyspnea. Comparison: 12/28/2017 Findings: Left central venous catheter tip extending to the confluence of the right brachial /SVC junction. Moderate venous congestion. Patchy bibasilar airspace opacities. Small bilateral pleural effusions. Cardiomegaly. Enlarged ectatic aorta. Scoliotic curvature of the spine. Degenerative changes in the spine and shoulders. Impression: Left central venous catheter tip extending to the confluence of the right brachial /SVC junction. Moderate venous congestion. Patchy bibasilar airspace opacities. Small bilateral pleural effusions. Cardiomegaly. Enlarged ectatic aorta. Scoliotic curvature of the spine.
[2017-12-29] MEDS: Fluconazole IV 200mg/100 ml NS 100 ML IVPB SCH (09:55)
--- NOTE | 2017-12-29 10:02 | CT ---
PROCEDURE: CT Chest without contrast HISTORY: assess for effusions COMPARISON: 12/24/2017 TECHNIQUE: Contiguous axial images were obtained through the chest without intravenous contrast enhancement. Sagittal and coronal reconstructions were performed. Radiation dose (DLP): 734.87 mGy-cm. This CT exam was performed using one or more of the following dose reduction techniques: Automated exposure control, adjustment of the mA and/or kV according to patient size, and/or use of iterative reconstruction technique. FINDINGS: LUNGS: Persistent consolidative changes both lower lobes with air bronchograms. Modest interval improvement, a re-expansion bilaterally. MEDIASTINUM: Unremarkable thoracic aorta. No aneurysm. Normal sized heart. Main pulmonary artery unremarkable. No vascular congestion. No lymphadenopathy. PLEURA: Decrease in pleural effusions bilaterally. BONES: No fracture. No destructive lesion. UPPER ABDOMEN: Stable loculated collection primarily in the lesser sac interposed between the stomach and pancreas. Distended gallbladder. OTHER FINDINGS: None. IMPRESSION: Decrease in bilateral pleural effusions, commensurate albeit mild improved aeration of both lower lobes. Stable collection of air in the lesser sac without associated pathologic process.
[2017-12-29] MEDS: Aztreonam 1 GM in Sodium Chloride 0.9% 100 ML IVPB SCH ×2 (10:56→21:59)
[2017-12-29] MEDS: metroNIDAZOLE IV 500 mg/100 ml 500 MG/100 ML BAG IVPB SCH ×2 (10:56→18:37)
[2017-12-29] MEDS: Metoprolol 1 mg/ml Inj IVP SCH (10:57)
--- NOTE | 2017-12-29 11:03 | CP.CCUPN ---
<Clement Vincent - Last Filed: 12/29/17 10:44> CCU Subjective - Physician Review Subjective (Free Text): 12/25/17 11:03 Patient seen and examined. Patient complaining of continued abdominal pain and some dyspnea. Denies chest pain at this time. 12/26/17 08:54 Patient seen and examined. Patient continues to complain of pain. Overnight, patient had episode of A-fib and was started on Amiodarone drip. 12/27/17 10:47 Patient seen and examined. Patient complaining of some dyspnea. Patient states that he is still in pain although it is reduced. 12/28/17 12:52 Patient seen and examined. Patient reports continued intermittent dyspnea. Patient went for cardiac cath this morning. 12/29/17 10:45 Patient seen and examined. Patient reports that he is very short of breath and is not eating very much. He was counselled on the need to ingest protein to aid in recovery. CCU Objective - Vital Signs / Intake & Output Vital Signs (Last 4 hours): Vital Signs Pulse Resp BP Pulse Ox 12/29/17 09:08 94 H 14 111/63 96 12/29/17 09:00 102 H 16 94 L 12/29/17 08:00 104 H 12 95 12/29/17 07:08 97 H 14 109/64 97 12/29/17 07:00 101 H 14 98 Intake and Output (Last 8hrs): Intake & Output 12/28/17 12/29/17 12/29/17 22:59 06:59 14:59 Intake Total 890 740 50 Output Total 1240 650 35 Balance -350 90 15 Intake: Intake, IV Amount 650 500 50 Left Proximal Port 650 500 50 Internal Jugular Oral 240 240 0 Output: Drainage 40 10 Right Lower Abdomen 40 10 Urine 1200 650 25 Urine, Voided 1200 650 25 - Physical Exam Head: Positive for: Atraumatic, Normocephalic Pupils: Positive for: PERRL Extroacular Muscles: Positive for: EOMI Mouth: Positive for: Moist Mucous Membranes Nose (External): Positive for: Other (NGT in place on suction) Neck: Positive for: Other (left IJ TLC) Respiratory/Chest: Positive for: Clear to Auscultation. Negative for: Wheezes, Rales, Rhonchi Cardiovascular: Positive for: Normal S1, S2, Irregular Rhythm, Tachycardic Abdomen: Positive for: Tenderness, Guarding, Other (Abdominal dressing clean,dry ,intact) Upper Extremity: Positive for: Normal Inspection Lower Extremity: Positive for: Normal Inspection Neurological: Positive for: GCS=15 Skin: Positive for: Warm, Dry Psychiatric: Positive for: Alert, Oriented x 3 - Medications Active Medications: Active Medications Generic Name Dose Route Start Last Admin Trade Name Freq PRN Reason Stop Dose Admin Albuterol/Ipratropium 3 ml 12/28/17 14:00 12/29/17 08:31 Duoneb 3 Mg/0.5 Mg (3 Ml) Ud INH Not Given RQ6 K[facility]INE Aspirin 325 mg 12/29/17 10:00 Aspirin PO DAILY K[facility]INE Digoxin 0.25 mg 12/27/17 18:00 12/28/17 17:17 Lanoxin IVP 0.25 mg DAILY@1800 K[facility]INE Administration Heparin Sodium (Porcine) 5,000 units 12/28/17 22:00 12/28/17 21:44 Heparin SC 5,000 units Q12 K[facility]INE Administration Metronidazole 500 mg in 100 mls @ 100 mls/hr 12/23/17 03:00 12/28/17 18:00 Flagyl IVPB 100 mls/hr Q8H K[facility]INE Administration Protocol Fluconazole 100 mls @ 100 mls/hr 12/25/17 10:00 12/28/17 12:38 Diflucan Iv 200 Mg/100 Ml Ns IVPB 100 mls/hr DAILY K[facility]OLINE Administration Protocol BUPIVACAINE 0.125%/0.9% NACL 600 mls @ 4 mls/hr 12/25/17 10:55 12/25/17 19:38 Bupivacaine-Ns 0.125% On-Q Maintenance Mechanic Elevators IJ 12/31/17 16:54 Not Given ONCE ONE Vancomycin/Sodium Chloride 1 gm in 200 mls @ 133.333 mls/hr 12/26/17 12:00 13:43 Vancomycin 1 Gm/Ns 200 Ml IVPB 133.333 mls/hr Q24H [facility] Administration Protocol Aztreonam 1 gm/ Sodium 100 mls @ 100 mls/hr 12/27/17 11:00 12/28/17 23:47 Chloride IVPB 100 mls/hr Q12H [facility] Administration Protocol Sodium Chloride 1,000 mls @ 50 mls/hr 12/28/17 12:00 12/29/17 08:02 Sodium Chloride 0.45% IV 12/29/17 23:59 Not Given .Q20H [facility] Insulin Aspart 0 unit 12/28/17 16:30 12/29/17 08:01 Novolog SC 8 unit ACHS K[facility]OLINE Administration Protocol Metoprolol Tartrate 2.5 mg 12/25/17 09:30 12/28/17 21:43 Lopressor IVP 2.5 mg Q12H [facility]INE Administration Morphine Sulfate 2 mg 12/25/17 07:43 12/29/17 07:34 Morphine IVP 2 mg Q4 PRN Administration Pain, severe (8-10) Ondansetron HCl 4 mg 12/22/17 16:46 Zofran Inj IVP Q6H PRN Nausea/Vomiting Pantoprazole Sodium 40 mg 12/22/17 22:15 12/28/17 21:44 Protonix Inj IVP 40 mg Q12H [facility] Administration Rosuvastatin Calcium 20 mg 12/28/17 22:00 12/28/17 21:44 Crestor PO 20 mg HS [facility]INE Administration - Patient Studies Lab Studies: Microbiology Studies 12/26/17 11:30 Blood Culture - Preliminary Blood NO GROWTH AFTER 48 HOURS 12/26/17 11:00 Blood Culture - Preliminary Blood NO GROWTH AFTER 48 HOURS Lab Studies 12/29/17 12/29/17 12/29/17 Range/Units 07:43 06:15 06:15 WBC 11.6 H (4.8-10.8) K/uL RBC 3.07 L (4.40-5.90) Mil/uL Hgb 9.2 L (12.0-18.0) g/dL Hct 27.9 L (35.0-51.0) % MCV 90.9 (80.0-94.0) fL MCH 30.0 (27.0-31.0) pg MCHC 33.0 (33.0-37.0) g/dL RDW 13.0 (11.5-14.5) % Plt Count 244 (130-400) K/uL MPV 9.8 (7.2-11.7) fL Neut % (Auto) 91.1 H (50.0-75.0) % Lymph % (Auto) 3.3 L (20.0-40.0) % Bracken % (Auto) 5.2 (0.0-10.0) % Eos % (Auto) 0.1 (0.0-4.0) % Baso % (Auto) 0.3 (0.0-2.0) % Neut # (Auto) 10.6 H (1.8-7.0) K/uL Lymph # (Auto) 0.4 L (1.0-4.3) K/uL Bracken # (Auto) 0.6 (0.0-0.8) K/uL Eos # (Auto) 0.0 (0.0-0.7) K/uL Baso # (Auto) 0.0 (0.0-0.2) K/uL Neutrophils % (Manual) 93 H (50-75) % Lymphocytes % (Manual) 2 L (20-40) % Monocytes % (Manual) 5 (0-10) % Platelet Estimate Normal (NORMAL) Hypochromasia (manual) Slight Poikilocytosis (manual Slight Anisocytosis (manual) Slight Serjio Cells Slight Sodium 140 (132-148) mmol/L Potassium 4.3 (3.6-5.2) mmol/L Chloride 103 (98-107) mmol/L Carbon Dioxide 21 L (22-30) mmol/L Anion Gap 21 H (10-20) BUN 42 H (9-20) mg/dL Creatinine 1.4 (0.8-1.5) mg/dL Est GFR ( Amer) 59 Est GFR (Non-Af Amer) 49 POC Glucose (mg/dL) 304 H (65-110) mg/dL Random Glucose 309 H (75-110) mg/dL Calcium 9.2 (8.6-10.4) mg/dl Phosphorus 4.2 (2.5-4.5) mg/dL Magnesium 1.6 (1.6-2.3) mg/dL Total Bilirubin 0.5 (0.2-1.3) mg/dL AST 20 (17-59) U/L ALT 21 D (21-72) U/L Alkaline Phosphatase 63 (38-126) U/L Total Protein 5.4 L (6.3-8.3) g/dL Albumin 2.4 L (3.5-5.0) g/dL Globulin 3.0 (2.2-3.9) gm/dL Albumin/Globulin Ratio 0.8 L (1.0-2.1) Vancomycin Trough (5.0-10.0) ug/mL 12/29/17 12/28/17 12/28/17 Range/Units 06:15 21:11 16:06 WBC (4.8-10.8) K/uL RBC (4.40-5.90) Mil/uL Hgb (12.0-18.0) g/dL Hct (35.0-51.0) % MCV (80.0-94.0) fL MCH (27.0-31.0) pg MCHC (33.0-37.0) g/dL RDW (11.5-14.5) % Plt Count (130-400) K/uL MPV (7.2-11.7) fL Neut % (Auto) (50.0-75.0) % Lymph % (Auto) (20.0-40.0) % Bracken % (Auto) (0.0-10.0) % Eos % (Auto) (0.0-4.0) % Baso % (Auto) (0.0-2.0) % Neut # (Auto) (1.8-7.0) K/uL Lymph # (Auto) (1.0-4.3) K/uL Bracken # (Auto) (0.0-0.8) K/uL Eos # (Auto) (0.0-0.7) K/uL Baso # (Auto) (0.0-0.2) K/uL Neutrophils % (Manual) (50-75) % Lymphocytes % (Manual) (20-40) % Monocytes % (Manual) (0-10) % Platelet Estimate (NORMAL) Hypochromasia (manual) Poikilocytosis (manual Anisocytosis (manual) Serjio Cells Sodium (132-148) mmol/L Potassium (3.6-5.2) mmol/L Chloride (98-107) mmol/L Carbon Dioxide (22-30) mmol/L Anion Gap (10-20) BUN (9-20) mg/dL Creatinine (0.8-1.5) mg/dL Est GFR ( Amer) Est GFR (Non-Af Amer) POC Glucose (mg/dL) 230 H 241 H (65-110) mg/dL Random Glucose (75-110) mg/dL Calcium (8.6-10.4) mg/dl Phosphorus (2.5-4.5) mg/dL Magnesium (1.6-2.3) mg/dL Total Bilirubin (0.2-1.3) mg/dL AST (17-59) U/L ALT (21-72) U/L Alkaline Phosphatase (38-126) U/L Total Protein (6.3-8.3) g/dL Albumin (3.5-5.0) g/dL Globulin (2.2-3.9) gm/dL Albumin/Globulin Ratio (1.0-2.1) Vancomycin Trough 14.2 H (5.0-10.0) ug/mL 12/28/17 Range/Units 12:14 WBC (4.8-10.8) K/uL RBC (4.40-5.90) Mil/uL Hgb (12.0-18.0) g/dL Hct (35.0-51.0) % MCV (80.0-94.0) fL MCH (27.0-31.0) pg MCHC (33.0-37.0) g/dL RDW (11.5-14.5) % Plt Count (130-400) K/uL MPV (7.2-11.7) fL Neut % (Auto) (50.0-75.0) % Lymph % (Auto) (20.0-40.0) % Bracken % (Auto) (0.0-10.0) % Eos % (Auto) (0.0-4.0) % Baso % (Auto) (0.0-2.0) % Neut # (Auto) (1.8-7.0) K/uL Lymph # (Auto) (1.0-4.3) K/uL Bracken # (Auto) (0.0-0.8) K/uL Eos # (Auto) (0.0-0.7) K/uL Baso # (Auto) (0.0-0.2) K/uL Neutrophils % (Manual) (50-75) % Lymphocytes % (Manual) (20-40) % Monocytes % (Manual) (0-10) % Platelet Estimate (NORMAL) Hypochromasia (manual) Poikilocytosis (manual Anisocytosis (manual) Dent Cells Sodium (132-148) mmol/L Potassium (3.6-5.2) mmol/L Chloride (98-107) mmol/L Carbon Dioxide (22-30) mmol/L Anion Gap (10-20) BUN (9-20) mg/dL Creatinine (0.8-1.5) mg/dL Est GFR ( Amer) Est GFR (Non-Af Amer) POC Glucose (mg/dL) 249 H (65-110) mg/dL Random Glucose (75-110) mg/dL Calcium (8.6-10.4) mg/dl Phosphorus (2.5-4.5) mg/dL Magnesium (1.6-2.3) mg/dL Total Bilirubin (0.2-1.3) mg/dL AST (17-59) U/L ALT (21-72) U/L Alkaline Phosphatase (38-126) U/L Total Protein (6.3-8.3) g/dL Albumin (3.5-5.0) g/dL Globulin (2.2-3.9) gm/dL Albumin/Globulin Ratio (1.0-2.1) Vancomycin Trough (5.0-10.0) ug/mL Laboratory Results - last 24 hr 12/28/17 12/28/17 12/28/17 12:14 16:06 21:11 WBC RBC Hgb Hct MCV MCH MCHC RDW Plt Count MPV Neut % (Auto) Lymph % (Auto) Bracken % (Auto) Eos % (Auto) Baso % (Auto) Neut # (Auto) Lymph # (Auto) Bracken # (Auto) Eos # (Auto) Baso # (Auto) Neutrophils % (Manual) Lymphocytes % (Manual) Monocytes % (Manual) Platelet Estimate Hypochromasia (manual) Poikilocytosis (manual Anisocytosis (manual) Serjio Cells Sodium Potassium Chloride Carbon Dioxide Anion Gap BUN Creatinine Est GFR ( Amer) Est GFR (Non-Af Amer) POC Glucose (mg/dL) 249 H 241 H 230 H Random Glucose Calcium Phosphorus Magnesium Total Bilirubin AST ALT Alkaline Phosphatase Total Protein Albumin Globulin Albumin/Globulin Ratio Vancomycin Trough 12/29/17 12/29/17 12/29/17 06:15 06:15 06:15 WBC 11.6 H RBC 3.07 L Hgb 9.2 L Hct 27.9 L MCV 90.9 MCH 30.0 MCHC 33.0 RDW 13.0 Plt Count 244 MPV 9.8 Neut % (Auto) 91.1 H Lymph % (Auto) 3.3 L Bracken % (Auto) 5.2 Eos % (Auto) 0.1 Baso % (Auto) 0.3 Neut # (Auto) 10.6 H Lymph # (Auto) 0.4 L Bracken # (Auto) 0.6 Eos # (Auto) 0.0 Baso # (Auto) 0.0 Neutrophils % (Manual) 93 H Lymphocytes % (Manual) 2 L Monocytes % (Manual) 5 Platelet Estimate Normal Hypochromasia (manual) Slight Poikilocytosis (manual Slight Anisocytosis (manual) Slight Serjio Cells Slight Sodium 140 Potassium 4.3 Chloride 103 Carbon Dioxide 21 L Anion Gap 21 H BUN 42 H Creatinine 1.4 Est GFR ( Amer) 59 Est GFR (Non-Af Amer) 49 POC Glucose (mg/dL) Random Glucose 309 H Calcium 9.2 Phosphorus 4.2 Magnesium 1.6 Total Bilirubin 0.5 AST 20 ALT 21 D Alkaline Phosphatase 63 Total Protein 5.4 L Albumin 2.4 L Globulin 3.0 Albumin/Globulin Ratio 0.8 L Vancomycin Trough 14.2 H 12/29/17 07:43 WBC RBC Hgb Hct MCV MCH MCHC RDW Plt Count MPV Neut % (Auto) Lymph % (Auto) Bracken % (Auto) Eos % (Auto) Baso % (Auto) Neut # (Auto) Lymph # (Auto) Bracken # (Auto) Eos # (Auto) Baso # (Auto) Neutrophils % (Manual) Lymphocytes % (Manual) Monocytes % (Manual) Platelet Estimate Hypochromasia (manual) Poikilocytosis (manual Anisocytosis (manual) Dent Cells Sodium Potassium Chloride Carbon Dioxide Anion Gap BUN Creatinine Est GFR ( Amer) Est GFR (Non-Af Amer) POC Glucose (mg/dL) 304 H Random Glucose Calcium Phosphorus Magnesium Total Bilirubin AST ALT Alkaline Phosphatase Total Protein Albumin Globulin Albumin/Globulin Ratio Vancomycin Trough Fingerstick Blood Sugar Results: 230 Critical Care Progress Note - Nutrition Nutrition: Nutrition Category Date Time Status Liquid Diet [DIET] Diets 12/27/17 Lunch Active Assessment/Plan - Assessment and Plan (Free Text) Assessment: This is a 77 year old male with PMHx diabetes, hypertension, hypercholesterolemia admitted with perforated duodenal ulcer status post exploratory laparotomy with Repair of peptic perforation with Colin patch on . POD #7. Patient is s/p cardiac cath which showed multi vessel disease. Patient will need CABG, but if CT surgery refuses, high risk PCI will need to be performed. Tentative plan is for CABG after improvement in patient's clinical picture. Patient hypoxic this morning, switched onto BiPAP and will assess for PE. 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 f/u CTA PE protocol Duoneb Q6H [facility] GI Assessment: s/p Duodenal perforation Liquid Diet per surgery--encouraged eating Protonix 40 mg IV Q12 Supplements: Ensure Clear 2 with every meal Endocrine Assessment: DM 2 Accuchecks ACHS Novolog sliding scale ACHS Renal Gentle IV hydration due to contrast from cardiac cath and now for CTA Infectious Disease Assessment: Purulent drainage from duodenal perforation (POD #7) Azactam 1 gm IV Q12H Vancomycin 1 gm IV Q24H ID on consult Prophylaxis Heparin SC Q12H Protonix 40 mg IV Q12 Discussed with Dr[address] Carter <Jesus Carter - Last Filed: 01/12/18 14:05> CCU Objective - Vital Signs / Intake & Output Vital Signs (Last 4 hours): Vital Signs Pulse Resp BP Pulse Ox 12/29/17 09:30 111 H 12/29/17 09:08 94 H 14 111/63 96 12/29/17 09:00 102 H 16 94 L Intake and Output (Last 8hrs): Intake & Output 12/28/17 12/29/17 12/29/17 22:59 06:59 14:59 Intake Total 890 740 50 Output Total 1240 650 35 Balance -350 90 15 Intake: Intake, IV Amount 650 500 50 Left Proximal Port 650 500 50 Internal Jugular Oral 240 240 0 Output: Drainage 40 10 Right Lower Abdomen 40 10 Urine 1200 650 25 Urine, Voided 1200 650 25 - Medications Active Medications: Active Medications Generic Name Dose Route Start Last Admin Trade Name Freq PRN Reason Stop Dose Admin Albuterol/Ipratropium 3 ml 12/28/17 14:00 12/29/17 08:31 Duoneb 3 Mg/0.5 Mg (3 Ml) Ud INH Not Given RQ6 K[facility]INE Aspirin 325 mg 12/29/17 10:00 12/29/17 10:55 Aspirin PO 325 mg DAILY KAROLINE Administration Digoxin 0.25 mg 12/27/17 18:00 12/28/17 17:17 Lanoxin IVP 0.25 mg DAILY@1800 KAROLINE Administration Heparin Sodium (Porcine) 5,000 units 12/28/17 22:00 12/29/17 10:55 Heparin SC 5,000 units Q12 KAROLINE Administration Metronidazole 500 mg in 100 mls @ 100 mls/hr 12/23/17 03:00 12/29/17 10:56 Flagyl IVPB 100 mls/hr Q8H K[facility]OLINE Administration Protocol Fluconazole 100 mls @ 100 mls/hr 12/25/17 10:00 12/29/17 09:55 Diflucan Iv 200 Mg/100 Ml Ns IVPB 100 mls/hr DAILY KAROLINE Administration Protocol BUPIVACAINE 0.125%/0.9% NACL 600 mls @ 4 mls/hr 12/25/17 10:55 12/25/17 19:38 Bupivacaine-Ns 0.125% On-Q Maintenance Mechanic Elevators IJ 12/31/17 16:54 Not Given ONCE ONE Vancomycin/Sodium Chloride 1 gm in 200 mls @ 133.333 mls/hr 12/26/17 12:00 11:05 Vancomycin 1 Gm/Ns 200 Ml IVPB 133.333 mls/hr Q24H K[facility]OLINE Administration Protocol Aztreonam 1 gm/ Sodium 100 mls @ 100 mls/hr 12/27/17 11:00 12/29/17 10:56 Chloride IVPB 100 mls/hr Q12H K[facility]OLINE Administration Protocol Sodium Chloride 1,000 mls @ 50 mls/hr 12/28/17 12:00 12/29/17 08:02 Sodium Chloride 0.45% IV 12/29/17 23:59 Not Given .Q20H K[facility]INE Insulin Aspart 0 unit 12/28/17 16:30 12/29/17 08:01 Novolog SC 8 unit ACHS KAROLINE Administration Protocol Metoprolol Tartrate 12.5 mg 12/29/17 11:00 12/29/17 11:07 Lopressor PO 12.5 mg BID KAROLINE Administration Morphine Sulfate 2 mg 12/25/17 07:43 12/29/17 07:34 Morphine IVP 2 mg Q4 PRN Administration Pain, severe (8-10) Ondansetron HCl 4 mg 12/22/17 16:46 Zofran Inj IVP Q6H PRN Nausea/Vomiting Pantoprazole Sodium 40 mg 12/22/17 22:15 12/29/17 10:55 Protonix Inj IVP 40 mg Q12H K[facility]OLINE Administration Rosuvastatin Calcium 20 mg 12/28/17 22:00 12/28/17 21:44 Crestor PO 20 mg HS KAROLINE Administration - Patient Studies Lab Studies: Microbiology Studies 12/26/17 11:30 Blood Culture - Preliminary Blood NO GROWTH AFTER 48 HOURS 12/26/17 11:00 Blood Culture - Preliminary Blood NO GROWTH AFTER 48 HOURS Lab Studies 12/29/17 12/29/17 12/29/17 Range/Units 11:01 07:43 06:15 WBC (4.8-10.8) K/uL RBC (4.40-5.90) Mil/uL Hgb (12.0-18.0) g/dL Hct (35.0-51.0) % MCV (80.0-94.0) fL MCH (27.0-31.0) pg MCHC (33.0-37.0) g/dL RDW (11.5-14.5) % Plt Count (130-400) K/uL MPV (7.2-11.7) fL Neut % (Auto) (50.0-75.0) % Lymph % (Auto) (20.0-40.0) % Bracken % (Auto) (0.0-10.0) % Eos % (Auto) (0.0-4.0) % Baso % (Auto) (0.0-2.0) % Neut # (Auto) (1.8-7.0) K/uL Lymph # (Auto) (1.0-4.3) K/uL Bracken # (Auto) (0.0-0.8) K/uL Eos # (Auto) (0.0-0.7) K/uL Baso # (Auto) (0.0-0.2) K/uL Neutrophils % (Manual) (50-75) % Lymphocytes % (Manual) (20-40) % Monocytes % (Manual) (0-10) % Platelet Estimate (NORMAL) Hypochromasia (manual) Poikilocytosis (manual Anisocytosis (manual) Serjio Cells Sodium 140 (132-148) mmol/L Potassium 4.3 (3.6-5.2) mmol/L Chloride 103 (98-107) mmol/L Carbon Dioxide 21 L (22-30) mmol/L Anion Gap 21 H (10-20) BUN 42 H (9-20) mg/dL Creatinine 1.4 (0.8-1.5) mg/dL Est GFR ( Amer) 59 Est GFR (Non-Af Amer) 49 POC Glucose (mg/dL) 274 H 304 H (65-110) mg/dL Random Glucose 309 H (75-110) mg/dL Calcium 9.2 (8.6-10.4) mg/dl Phosphorus 4.2 (2.5-4.5) mg/dL Magnesium 1.6 (1.6-2.3) mg/dL Total Bilirubin 0.5 (0.2-1.3) mg/dL AST 20 (17-59) U/L ALT 21 D (21-72) U/L Alkaline Phosphatase 63 (38-126) U/L Total Protein 5.4 L (6.3-8.3) g/dL Albumin 2.4 L (3.5-5.0) g/dL Globulin 3.0 (2.2-3.9) gm/dL Albumin/Globulin Ratio 0.8 L (1.0-2.1) Vancomycin Trough (5.0-10.0) ug/mL 12/29/17 12/29/17 12/28/17 Range/Units 06:15 06:15 21:11 WBC 11.6 H (4.8-10.8) K/uL RBC 3.07 L (4.40-5.90) Mil/uL Hgb 9.2 L (12.0-18.0) g/dL Hct 27.9 L (35.0-51.0) % MCV 90.9 (80.0-94.0) fL MCH 30.0 (27.0-31.0) pg MCHC 33.0 (33.0-37.0) g/dL RDW 13.0 (11.5-14.5) % Plt Count 244 (130-400) K/uL MPV 9.8 (7.2-11.7) fL Neut % (Auto) 91.1 H (50.0-75.0) % Lymph % (Auto) 3.3 L (20.0-40.0) % Bracken % (Auto) 5.2 (0.0-10.0) % Eos % (Auto) 0.1 (0.0-4.0) % Baso % (Auto) 0.3 (0.0-2.0) % Neut # (Auto) 10.6 H (1.8-7.0) K/uL Lymph # (Auto) 0.4 L (1.0-4.3) K/uL Bracken # (Auto) 0.6 (0.0-0.8) K/uL Eos # (Auto) 0.0 (0.0-0.7) K/uL Baso # (Auto) 0.0 (0.0-0.2) K/uL Neutrophils % (Manual) 93 H (50-75) % Lymphocytes % (Manual) 2 L (20-40) % Monocytes % (Manual) 5 (0-10) % Platelet Estimate Normal (NORMAL) Hypochromasia (manual) Slight Poikilocytosis (manual Slight Anisocytosis (manual) Slight Serjio Cells Slight Sodium (132-148) mmol/L Potassium (3.6-5.2) mmol/L Chloride (98-107) mmol/L Carbon Dioxide (22-30) mmol/L Anion Gap (10-20) BUN (9-20) mg/dL Creatinine (0.8-1.5) mg/dL Est GFR ( Amer) Est GFR (Non-Af Amer) POC Glucose (mg/dL) 230 H (65-110) mg/dL Random Glucose (75-110) mg/dL Calcium (8.6-10.4) mg/dl Phosphorus (2.5-4.5) mg/dL Magnesium (1.6-2.3) mg/dL Total Bilirubin (0.2-1.3) mg/dL AST (17-59) U/L ALT (21-72) U/L Alkaline Phosphatase (38-126) U/L Total Protein (6.3-8.3) g/dL Albumin (3.5-5.0) g/dL Globulin (2.2-3.9) gm/dL Albumin/Globulin Ratio (1.0-2.1) Vancomycin Trough 14.2 H (5.0-10.0) ug/mL 12/28/17 12/28/17 Range/Units 16:06 12:14 WBC (4.8-10.8) K/uL RBC (4.40-5.90) Mil/uL Hgb (12.0-18.0) g/dL Hct (35.0-51.0) % MCV (80.0-94.0) fL MCH (27.0-31.0) pg MCHC (33.0-37.0) g/dL RDW (11.5-14.5) % Plt Count (130-400) K/uL MPV (7.2-11.7) fL Neut % (Auto) (50.0-75.0) % Lymph % (Auto) (20.0-40.0) % Bracken % (Auto) (0.0-10.0) % Eos % (Auto) (0.0-4.0) % Baso % (Auto) (0.0-2.0) % Neut # (Auto) (1.8-7.0) K/uL Lymph # (Auto) (1.0-4.3) K/uL Bracken # (Auto) (0.0-0.8) K/uL Eos # (Auto) (0.0-0.7) K/uL Baso # (Auto) (0.0-0.2) K/uL Neutrophils % (Manual) (50-75) % Lymphocytes % (Manual) (20-40) % Monocytes % (Manual) (0-10) % Platelet Estimate (NORMAL) Hypochromasia (manual) Poikilocytosis (manual Anisocytosis (manual) Serjio Cells Sodium (132-148) mmol/L Potassium (3.6-5.2) mmol/L Chloride (98-107) mmol/L Carbon Dioxide (22-30) mmol/L Anion Gap (10-20) BUN (9-20) mg/dL Creatinine (0.8-1.5) mg/dL Est GFR ( Amer) Est GFR (Non-Af Amer) POC Glucose (mg/dL) 241 H 249 H (65-110) mg/dL Random Glucose (75-110) mg/dL Calcium (8.6-10.4) mg/dl Phosphorus (2.5-4.5) mg/dL Magnesium (1.6-2.3) mg/dL Total Bilirubin (0.2-1.3) mg/dL AST (17-59) U/L ALT (21-72) U/L Alkaline Phosphatase (38-126) U/L Total Protein (6.3-8.3) g/dL Albumin (3.5-5.0) g/dL Globulin (2.2-3.9) gm/dL Albumin/Globulin Ratio (1.0-2.1) Vancomycin Trough (5.0-10.0) ug/mL Laboratory Results - last 24 hr 12/28/17 12/28/17 12/28/17 12:14 16:06 21:11 WBC RBC Hgb Hct MCV MCH MCHC RDW Plt Count MPV Neut % (Auto) Lymph % (Auto) Bracken % (Auto) Eos % (Auto) Baso % (Auto) Neut # (Auto) Lymph # (Auto) [place]acken # (Auto) Eos # (Auto) Baso # (Auto) Neutrophils % (Manual) Lymphocytes % (Manual) Monocytes % (Manual) Platelet Estimate Hypochromasia (manual) Poikilocytosis (manual Anisocytosis (manual) Dent Cells Sodium Potassium Chloride Carbon Dioxide Anion Gap BUN Creatinine Est GFR ( Amer) Est GFR (Non-Af Amer) POC Glucose (mg/dL) 249 H 241 H 230 H Random Glucose Calcium Phosphorus Magnesium Total Bilirubin AST ALT Alkaline Phosphatase Total Protein Albumin Globulin Albumin/Globulin Ratio Vancomycin Trough 12/29/17 12/29/17 12/29/17 06:15 06:15 06:15 WBC 11.6 H RBC 3.07 L Hgb 9.2 L Hct 27.9 L MCV 90.9 MCH 30.0 MCHC 33.0 RDW 13.0 Plt Count 244 MPV 9.8 Neut % (Auto) 91.1 H Lymph % (Auto) 3.3 L [place]acken % (Auto) 5.2 Eos % (Auto) 0.1 Baso % (Auto) 0.3 Neut # (Auto) 10.6 H Lymph # (Auto) 0.4 L [place]acken # (Auto) 0.6 Eos # (Auto) 0.0 Baso # (Auto) 0.0 Neutrophils % (Manual) 93 H Lymphocytes % (Manual) 2 L Monocytes % (Manual) 5 Platelet Estimate Normal Hypochromasia (manual) Slight Poikilocytosis (manual Slight Anisocytosis (manual) Slight Dent Cells Slight Sodium 140 Potassium 4.3 Chloride 103 Carbon Dioxide 21 L Anion Gap 21 H BUN 42 H Creatinine 1.4 Est GFR ( Amer) 59 Est GFR (Non-Af Amer) 49 POC Glucose (mg/dL) Random Glucose 309 H Calcium 9.2 Phosphorus 4.2 Magnesium 1.6 Total Bilirubin 0.5 AST 20 ALT 21 D Alkaline Phosphatase 63 Total Protein 5.4 L Albumin 2.4 L Globulin 3.0 Albumin/Globulin Ratio 0.8 L Vancomycin Trough 14.2 H 12/29/17 12/29/17 07:43 11:01 WBC RBC Hgb Hct MCV MCH MCHC RDW Plt Count MPV Neut % (Auto) Lymph % (Auto) [place]ack[place] % (Auto) Eos % (Auto) Baso % (Auto) Neut # (Auto) Lymph # (Auto) [place]acken # (Auto) Eos # (Auto) Baso # (Auto) Neutrophils % (Manual) Lymphocytes % (Manual) Monocytes % (Manual) Platelet Estimate Hypochromasia (manual) Poikilocytosis (manual Anisocytosis (manual) Serjio Cells Sodium Potassium Chloride Carbon Dioxide Anion Gap BUN Creatinine Est GFR ( Amer) Est GFR (Non-Af Amer) POC Glucose (mg/dL) 304 H 274 H Random Glucose Calcium Phosphorus Magnesium Total Bilirubin AST ALT Alkaline Phosphatase Total Protein Albumin Globulin Albumin/Globulin Ratio Vancomycin Trough Critical Care Progress Note - Nutrition Nutrition: Nutrition Category Date Time Status Liquid Diet [DIET] Diets 12/27/17 Lunch Active Assessment/Plan (1) Perforated abdominal viscus Current Visit: Yes Status: Acute Attending/Attestation - Attestation I have personally seen and examined this patient.: Yes I have fully participated in the care of the patient.: Yes I have reviewed all pertinent clinical information: Yes Notes (Text): I have seen and examined the patient. Medical records, lab studies, and imaging were reviewed by me and a management plan was formulated on multidisciplinary rounds with resident Dr. Vincent. I agree with their documented assessment and plan. Critical Care Time 35 minutes. Multi-disciplinary rounds were performed with house staff, nursing, speech therapy, respiratory therapy, pharmacy and nutrition with integrated input from the primary team/attending and other consulting services. The documented time is cumulative and includes review of patient data/exams/labs/chart review and examination of the patient on rounds and throughout the day; time is exclusive of any procedures or teaching time.
[2017-12-29] MEDS: Vancomycin 1 gm/NS 200 ml 1 GM/200 ML BAG IVPB SCH (11:05)
[2017-12-29] MEDS ORDERED: Iodixanol 320 MG/ML 100 ML BOTTLE IV ONE (13:39)
--- NOTE | 2017-12-29 16:24 | CT ---
PROCEDURE: CT Chest with contrast (Pulmonary Angiogram) HISTORY: severe hypoxia. r/o PE COMPARISON: None available. TECHNIQUE: Axial computed tomography images were obtained of the chest in the pulmonary arterial phase of enhancement. Coronal and sagittal reformatted images were created and reviewed. Intravenous contrast dose: Visipaque 320, 100 cc Radiation dose: Total exam DLP = 499.76 mGy-cm. This CT exam was performed using one or more of the following dose reduction techniques: Automated exposure control, adjustment of the mA and/or kV according to patient size, and/or use of iterative reconstruction technique. FINDINGS: No pulmonary embolism. Clinically correlate for potential pulmonary artery hypertension. bilateral pleural effusions persist however remained moderate to large in overall volume but greater the left and right sides. Extensive compressive atelectasis further affects the bilateral lower lobes with nearly the entire left lower lobe atelectatic. There is no pneumothorax and limited bilateral dependent atelectasis is seen related to the bilateral upper lobes which are otherwise well aerated. The central airways appear clear. Limited septal changes at the bilateral apices may reflect an element pulmonary vascular congestion. Left central venous line is again identified with the thoracic inlet otherwise unremarkable. Cardiomegaly is stable with trace pericardial thickening or effusion evident. The main pulmonary artery appears somewhat prominent measuring 3.3 cm. LYMPH NODES: No lymphadenopathy. BONES, CHEST WALL: Unremarkable. No fracture or destructive lesion OTHER FINDINGS: Sliding hiatal hernia increased in volume. Distended gallbladder. No radiodense cholelithiasis. IMPRESSION: A limited increase in moderate to large bilateral pleural effusions is seen with left side remaining greater in volume than the right. Extensive compression atelectasis affects the bilateral lower lobes once again with nearly although left lower lobe appearing atelectatic and more than half of the right lower lobe. The interval change does not not appear dramatic however. Subtle pulmonary vascular congestion pattern questioned. Cardiomegaly and prominent main pulmonary artery. Clinically correlate for potential pulmonary artery hypertension.
[2017-12-29] MEDS: Digoxin 500 mcg/2ml (0.5 mg/2ml) Inj IVP SCH (18:36)
--- NOTE | 2017-12-29 19:55 | CP.PCM.PN ---
Subjective - Date & Time of Evaluation Date of Evaluation: 12/29/17 Time of Evaluation: 19:55 - Subjective Subjective: CHIEF COMPLAINTS TODAY : afebrile. C/O SOB on rebreather mask denies any chest pain. c/o abdominal pain but much less. s/p cardiac catheterization 12/28/17- triple vessel disease Patient for cardiothoracic surgical evaluation for CABG as noted. ROS. HEENT : N. Resp : No cough, wheezing ,pleuritic CP ,or hemoptysis Cardio : No anginal CP, PND, orthopnea, palpitation GI : +VE ABDOMINAL PAIN, NO n/v ,diarrhea or GI bleeding . VENEER SORTER : No headache, vertigo, focal deficit. Musculoskel : No joint swelling , Derm : No rash Psych : Normal affect. Ext : No swelling ,calf pain PE. Pt. is alert awake in no distress. V.S As noted in the chart Head ,ear nose,throat and eyes : Normal. Neck : Supple with normal carotids. Lungs: Clear air entry. Heart : S1 & S2 normal with S4. No murmur. Abd : SOFT, MILD TENDERNESS POSTOPERATIVE SITE Midline incision with panda in place, no erythema or drainage noted. Constantino insertion site with dressing in place- clean/dry/intact Neuro : Moves all ext. with no localized deficit. Ext : No edema with intact pulses.Non tender calves Derm : No rashes or decubitus ulcer. LABS/RADIOLOGY: REVIEWED CREATININE 1.4/bun 46 vanco trough 14.5 OK wbc 10.3 TROPONINS DECREASING. BLOOD CULTURES 12/26/17 -VE GROWTH TO DATE. chest x-ray 12/27/17-no active disease. Objective - Vital Signs/Intake and Output Vital Signs (last 24 hours): Temp Pulse Resp BP Pulse Ox 97.8 F 94 H 17 116/63 93 L 12/29/17 16:00 12/29/17 18:00 12/29/17 18:00 12/29/17 15:08 12/29/17 18:00 Intake and Output: 12/29/17 12/30/17 18:59 06:59 Intake Total 1165 Output Total 545 Balance 620 - Medications Medications: Current Medications Albuterol/Ipratropium (Duoneb 3 Mg/0.5 Mg (3 Ml) Ud) 3 ml INH RQ6 [facility] Last Admin: 12/29/17 13:47 Dose: 3 ml Aspirin (Aspirin) 325 mg PO DAILY [facility] Last Admin: 12/29/17 10:55 Dose: 325 mg Digoxin (Lanoxin) 0.25 mg IVP DAILY@1800 [facility] Last Admin: 12/29/17 18:36 Dose: 0.25 mg Heparin Sodium (Porcine) (Heparin) 5,000 units SC Q12 [facility] Last Admin: 12/29/17 10:55 Dose: 5,000 units Metronidazole (Flagyl) 500 mg in 100 mls @ 100 mls/hr IVPB Q8H [facility] PRN Reason: Protocol Last Admin: 12/29/17 18:37 Dose: 100 mls/hr Fluconazole (Diflucan Iv 200 Mg/100 Ml Ns) 100 mls @ 100 mls/hr IVPB DAILY [facility] PRN Reason: Protocol Last Admin: 12/29/17 09:55 Dose: 100 mls/hr BUPIVACAINE 0.125%/0.9% NACL (Bupivacaine-Ns 0.125% On-Q Japanese Interpreter) 600 mls @ 4 mls/ hr IJ ONCE ONE Stop: 12/31/17 16:54 Last Admin: 12/25/17 19:38 Dose: Not Given Vancomycin/Sodium Chloride (Vancomycin 1 Gm/Ns 200 Ml) 1 gm in 200 mls @ 133.333 mls/hr IVPB Q24H [facility] PRN Reason: Protocol Last Admin: 12/29/17 11:05 Dose: 133.333 mls/hr Aztreonam 1 gm/ Sodium (Chloride) 100 mls @ 100 mls/hr IVPB Q12H [facility] PRN Reason: Protocol Last Admin: 12/29/17 10:56 Dose: 100 mls/hr Sodium Chloride (Sodium Chloride 0.45%) 1,000 mls @ 50 mls/hr IV .Q20H [facility] Stop: 12/29/17 23:59 Last Admin: 12/29/17 08:02 Dose: Not Given Insulin Aspart (Novolog) 0 unit SC ACHS [facility] PRN Reason: Protocol Last Admin: 12/29/17 17:20 Dose: 8 unit Insulin Glargine (Lantus) 5 unit SC QAM [facility] Metoprolol Tartrate (Lopressor) 12.5 mg PO BID [facility] Last Admin: 12/29/17 18:37 Dose: 12.5 mg Morphine Sulfate (Morphine) 2 mg IVP Q4 PRN PRN Reason: Pain, severe (8-10) Last Admin: 12/29/17 07:34 Dose: 2 mg Ondansetron HCl (Zofran Inj) 4 mg IVP Q6H PRN PRN Reason: Nausea/Vomiting Pantoprazole Sodium (Protonix Inj) 40 mg IVP Q12H [facility] Last Admin: 12/29/17 10:55 Dose: 40 mg Rosuvastatin Calcium (Crestor) 20 mg PO HS [facility] Last Admin: 12/28/17 21:44 Dose: 20 mg - Labs Labs: 12/29/17 06:15 12/29/17 06:15 PT 12.5 SECONDS (9.7-12.2) H 12/22/17 16:18 INR 1.1 12/22/17 16:18 APTT 48 SECONDS (21-34) H D 12/28/17 05:53 Assessment and Plan (1) Sepsis associated hypotension Status: Acute (2) Perforated abdominal viscus Status: Acute (3) Status post exploratory laparotomy Status: Acute (4) Acute non-ST elevation myocardial infarction (NSTEMI) Assessment & Plan: S/P CARDIAC CATH 12/28/17. CARDIOTHORACIC SURGERY ON BOARD FOR EVAL FOR CABG, Status: Acute (5) CHF (congestive heart failure) Status: Acute (6) Diabetes mellitus Status: Acute - Assessment and Plan (Free Text) Plan: CONTINUE IV Azactam 1 g IV piggyback every 12 hourly. 12/26/17 ( PATIENT TOLERATED FIRST DOSE WITHOUT ANY REACTIONS. ) ON IV vancomycin 1 g once a day daily for gram-positive/enterococcal coverage with intra-abdominal sepsis.12/26/17 Continue IV Flagyl 500 every 8 hourly 12/22/17 dc IV fluconazole 100 mg once a day daily 12/22/17.-day 8
[2017-12-29] MEDS ORDERED: (Lantus) Insulin Glargine, Recombinant SC SCH (22:00)
--- NOTE | 2017-12-29 23:34 | CP.PCM.PN ---
Subjective - Date & Time of Evaluation Date of Evaluation: 12/29/17 Time of Evaluation: 19:00 - Subjective Subjective: Pt seen and examined at bedside Objective - Vital Signs/Intake and Output Vital Signs (last 24 hours): Temp Pulse Resp BP Pulse Ox 97.8 F 83 20 118/64 96 12/29/17 16:00 12/29/17 21:07 12/29/17 20:08 12/29/17 20:08 12/29/17 20:08 Intake and Output: 12/29/17 12/30/17 18:59 06:59 Intake Total 1165 Output Total 545 Balance 620 - Medications Medications: Current Medications Albuterol/Ipratropium (Duoneb 3 Mg/0.5 Mg (3 Ml) Ud) 3 ml INH RQ6 [facility] Last Admin: 12/29/17 21:04 Dose: 3 ml Aspirin (Aspirin) 325 mg PO DAILY [facility] Last Admin: 12/29/17 10:55 Dose: 325 mg Digoxin (Lanoxin) 0.25 mg IVP DAILY@1800 [facility] Last Admin: 12/29/17 18:36 Dose: 0.25 mg Heparin Sodium (Porcine) (Heparin) 5,000 units SC Q12 [facility] Last Admin: 12/29/17 21:44 Dose: 5,000 units Metronidazole (Flagyl) 500 mg in 100 mls @ 100 mls/hr IVPB Q8H [facility] PRN Reason: Protocol Last Admin: 12/29/17 18:37 Dose: 100 mls/hr Fluconazole (Diflucan Iv 200 Mg/100 Ml Ns) 100 mls @ 100 mls/hr IVPB DAILY [facility] PRN Reason: Protocol Last Admin: 12/29/17 09:55 Dose: 100 mls/hr BUPIVACAINE 0.125%/0.9% NACL (Bupivacaine-Ns 0.125% On-Q Application Services Manager) 600 mls @ 4 mls/ hr IJ ONCE ONE Stop: 12/31/17 16:54 Last Admin: 12/25/17 19:38 Dose: Not Given Vancomycin/Sodium Chloride (Vancomycin 1 Gm/Ns 200 Ml) 1 gm in 200 mls @ 133.333 mls/hr IVPB Q24H [facility] PRN Reason: Protocol Last Admin: 12/29/17 11:05 Dose: 133.333 mls/hr Aztreonam 1 gm/ Sodium (Chloride) 100 mls @ 100 mls/hr IVPB Q12H [facility] PRN Reason: Protocol Last Admin: 12/29/17 21:59 Dose: 100 mls/hr Sodium Chloride (Sodium Chloride 0.45%) 1,000 mls @ 50 mls/hr IV .Q20H [facility] Stop: 12/29/17 23:59 Last Admin: 12/29/17 08:02 Dose: Not Given Insulin Aspart (Novolog) 0 unit SC Q4H [facility] PRN Reason: Protocol Last Admin: 12/29/17 21:43 Dose: 4 unit Insulin Glargine (Lantus) 20 unit SC [facility] Last Admin: 12/29/17 21:43 Dose: 20 u Metoprolol Tartrate (Lopressor) 12.5 mg PO BID [facility] Last Admin: 12/29/17 18:37 Dose: 12.5 mg Morphine Sulfate (Morphine) 2 mg IVP Q4 PRN PRN Reason: Pain, severe (8-10) Last Admin: 12/29/17 07:34 Dose: 2 mg Ondansetron HCl (Zofran Inj) 4 mg IVP Q6H PRN PRN Reason: Nausea/Vomiting Pantoprazole Sodium (Protonix Inj) 40 mg IVP Q12H [facility] Last Admin: 12/29/17 21:44 Dose: 40 mg Rosuvastatin Calcium (Crestor) 20 mg PO [facility] Last Admin: 12/28/17 21:44 Dose: 20 mg - Labs Labs: 12/29/17 06:15 12/29/17 06:15 PT 12.5 SECONDS (9.7-12.2) H 12/22/17 16:18 INR 1.1 12/22/17 16:18 APTT 48 SECONDS (21-34) H D 12/28/17 05:53 Assessment and Plan (1) Perforated abdominal viscus Status: Acute (2) Diabetes mellitus Status: Acute (3) GERD (gastroesophageal reflux disease) Status: Acute (4) Acute non-ST elevation myocardial infarction (NSTEMI) Status: Acute
[2017-12-30] MEDS: Albuterol-Ipratrop 3 mg / 0.5 (3 ml) UD INH SCH ×4 (01:15→20:30)
[2017-12-30] MEDS: metroNIDAZOLE IV 500 mg/100 ml 500 MG/100 ML BAG IVPB SCH ×3 (02:00→18:56)
[2017-12-30] MEDS: (Novolog) Insulin Aspart, Recombinant 100 u/ml 10 ml vial SC SCH ×5 (02:07→20:53)
[2017-12-30] MEDS ORDERED: (Lantus) Insulin Glargine, Recombinant SC SCH (05:00)
[2017-12-30] MEDS ORDERED: (Novolog) Insulin Aspart, Recombinant 100 u/ml 10 ml vial SC SCH ×2 (05:13→06:00)
--- NOTE | 2017-12-30 05:50 | CP.PCM.PN ---
<Albertina Tejada - Last Filed: 12/30/17 05:48> Subjective - Date & Time of Evaluation Date of Evaluation: 12/30/17 Time of Evaluation: 05:00 - Subjective Subjective: General surgery progress note for Dr. Villa-Albertina Tejada, PGY-1 Pt S & E at bedside. Pt with desaturation overnight, now on Bipap. Continues to c/o of abdominal pain. Now c/o SOB. Tolerating CLD, denies N & V, F & C, flatus, BM, chest pain. Constantino with ~20cc serous output. Objective - Vital Signs/Intake and Output Vital Signs (last 24 hours): Temp Pulse Resp BP Pulse Ox 98.2 F 82 16 123/66 98 12/30/17 04:00 12/30/17 05:08 12/30/17 05:08 12/30/17 05:08 12/30/17 05:08 Intake and Output: 12/29/17 12/30/17 18:59 06:59 Intake Total 1165 810 Output Total 545 Balance 620 810 - Medications Medications: Current Medications Albuterol/Ipratropium (Duoneb 3 Mg/0.5 Mg (3 Ml) Ud) 3 ml INH RQ6 [facility] Last Admin: 12/30/17 01:15 Dose: 3 ml Aspirin (Aspirin) 325 mg PO DAILY [facility] Last Admin: 12/29/17 10:55 Dose: 325 mg Digoxin (Lanoxin) 0.25 mg IVP DAILY@1800 [facility] Last Admin: 12/29/17 18:36 Dose: 0.25 mg Heparin Sodium (Porcine) (Heparin) 5,000 units SC Q12 [facility] Last Admin: 12/29/17 21:44 Dose: 5,000 units Metronidazole (Flagyl) 500 mg in 100 mls @ 100 mls/hr IVPB Q8H [facility] PRN Reason: Protocol Last Admin: 12/30/17 02:00 Dose: 100 mls/hr BUPIVACAINE 0.125%/0.9% NACL (Bupivacaine-Ns 0.125% On-Q Chemical Applicator) 600 mls @ 4 mls/ hr IJ ONCE ONE Stop: 12/31/17 16:54 Last Admin: 12/25/17 19:38 Dose: Not Given Vancomycin/Sodium Chloride (Vancomycin 1 Gm/Ns 200 Ml) 1 gm in 200 mls @ 133.333 mls/hr IVPB Q24H [facility] PRN Reason: Protocol Last Admin: 12/29/17 11:05 Dose: 133.333 mls/hr Aztreonam 1 gm/ Sodium (Chloride) 100 mls @ 100 mls/hr IVPB Q12H [facility] PRN Reason: Protocol Last Admin: 12/29/17 21:59 Dose: 100 mls/hr Insulin Aspart (Novolog) 0 unit SC Q4H [facility] PRN Reason: Protocol Last Admin: 12/30/17 05:38 Dose: Not Given Insulin Glargine (Lantus) 20 unit SC [facility] Last Admin: 12/29/17 21:43 Dose: 20 u Metoprolol Tartrate (Lopressor) 12.5 mg PO BID [facility] Last Admin: 12/29/17 18:37 Dose: 12.5 mg Morphine Sulfate (Morphine) 2 mg IVP Q4 PRN PRN Reason: Pain, severe (8-10) Last Admin: 12/29/17 07:34 Dose: 2 mg Ondansetron HCl (Zofran Inj) 4 mg IVP Q6H PRN PRN Reason: Nausea/Vomiting Pantoprazole Sodium (Protonix Inj) 40 mg IVP Q12H [facility] Last Admin: 12/29/17 21:44 Dose: 40 mg Rosuvastatin Calcium (Crestor) 20 mg PO [facility] Last Admin: 12/29/17 22:00 Dose: 20 mg - Labs Labs: 12/29/17 06:15 12/29/17 06:15 PT 12.5 SECONDS (9.7-12.2) H 12/22/17 16:18 INR 1.1 12/22/17 16:18 APTT 48 SECONDS (21-34) H D 12/28/17 05:53 - Constitutional Appears: Non-toxic, No Acute Distress - Head Exam Head Exam: ATRAUMATIC, NORMAL INSPECTION, NORMOCEPHALIC - Eye Exam Eye Exam: EOMI, Normal appearance - ENT Exam ENT Exam: Mucous Membranes Moist, Normal Exam - Neck Exam Neck Exam: Full ROM Additional comments: LIJ TLC in place - Respiratory Exam Respiratory Exam: NORMAL BREATHING PATTERN (on Bipap). absent: Chest Wall Tenderness, Respiratory Distress - Cardiovascular Exam Cardiovascular Exam: REGULAR RHYTHM, +S1, +S2 - GI/Abdominal Exam GI & Abdominal Exam: Soft, Tenderness (Along midline incision site, Constantino insertion site). absent: Distended, Firm, Guarding, Rigid, Mass Additional comments: Midline panda in place, no drainage noted - Extremities Exam Extremities Exam: Normal Inspection. absent: Tenderness - Neurological Exam Neurological Exam: Alert, Awake, CN II-XII Intact, Oriented x3 - Psychiatric Exam Psychiatric exam: Normal Affect, Normal Mood - Skin Skin Exam: Dry, Intact, Normal Color, Warm Assessment and Plan - Assessment and Plan (Free Text) Assessment: 77M POD#8 s/p ex-lap & Colin patch for duodenal perforation, post-op NSTEMI and pneumonia Plan: Monitor for bowel function Cont CLD Con PPN until adequate PO intake OOBTC PT Pain control Monitor drain output Encourage IS use Cont ABx for Pneumonia Further mgmt as per ICU, primary, cardiac and CT surgery teams DW attending Mallory, PGY-1 <Fred Villa B - Last Filed: 01/06/18 18:47> Objective - Vital Signs/Intake and Output Vital Signs (last 24 hours): Temp Pulse Resp BP Pulse Ox 97.1 F L 94 H 16 137/77 95 01/06/18 18:00 01/06/18 18:00 01/06/18 18:00 01/06/18 18:22 01/06/18 18:00 Intake and Output: 01/06/18 01/06/18 06:59 18:59 Intake Total 960 Output Total 300 Balance 660 - Medications Medications: Current Medications Albuterol/Ipratropium (Duoneb 3 Mg/0.5 Mg (3 Ml) Ud) 3 ml INH RQ6 [facility] Last Admin: 01/06/18 07:36 Dose: 3 ml Aspirin (Aspirin) 325 mg PO DAILY [facility] Last Admin: 01/06/18 09:52 Dose: 325 mg Heparin Sodium (Porcine) (Heparin) 5,000 units SC Q12 [facility] Last Admin: 01/06/18 09:52 Dose: 5,000 units Insulin Detemir (Levemir) 15 unit SC Q12 [facility] Last Admin: 01/06/18 09:52 Dose: 15 unit Insulin Human Regular (Novolin R) 0 unit SC Q6H [facility] PRN Reason: Protocol Last Admin: 01/06/18 18:22 Dose: 6 unit Metoprolol Tartrate (Lopressor) 25 mg PO BID [facility] Last Admin: 01/06/18 18:22 Dose: 25 mg Ondansetron HCl (Zofran Inj) 4 mg IVP Q6H PRN PRN Reason: Nausea/Vomiting Oxycodone/Acetaminophen (Percocet 5/325 Mg Tab) 1 tab PO Q4H PRN PRN Reason: Pain, moderate (4-7) Stop: 01/07/18 20:10 Last Admin: 01/05/18 04:38 Dose: 1 tab Pantoprazole Sodium (Protonix Inj) 40 mg IVP Q12H [facility] Last Admin: 01/06/18 09:51 Dose: 40 mg Rosuvastatin Calcium (Crestor) 20 mg PO HS [facility] Last Admin: 01/05/18 21:19 Dose: 20 mg Sertraline HCl (Zoloft) 25 mg PO DAILY [facility] Last Admin: 01/06/18 09:53 Dose: 25 mg Trazodone HCl (Desyrel) 25 mg PO HS [facility] Last Admin: 01/05/18 21:19 Dose: 25 mg - Labs Labs: 01/06/18 06:21 01/06/18 06:21 PT 12.5 SECONDS (9.7-12.2) H 12/22/17 16:18 INR 1.1 12/22/17 16:18 APTT 48 SECONDS (21-34) H D 12/28/17 05:53 Attending/Attestation - Attestation I have fully participated in the care of the patient.: Yes I have reviewed all pertinent clinical information, including history, physical exam and plan: Yes Notes (Text): Pt is stable with Pneumonia and post op SD start tube feed C/w IV antibiotics c/w current mx Plan d.w pt and primary team in detail
[2017-12-30 06:25] LABS: BASO % 0.3 % (0.0-2.0); EOS # 0.1 K/uL (0.0-0.7); EOS % 1.1 % (0.0-4.0); HEMOGLOBIN 9.1 g/dL (12.0-18.0); LYMPH # 0.6 K/uL (1.0-4.3); LYMPH % 5.3 % (20.0-40.0); MEAN CELL VOLUME 90.4 fL (80.0-94.0); MEAN CORPUSCULAR HEMOGLOBIN 29.6 pg (27.0-31.0); MEAN CORPUSCULAR HGB CONC 32.7 g/dL (33.0-37.0); MEAN PLATELET VOLUME 9.9 fL (7.2-11.7); MONO # 0.6 K/uL (0.0-0.8); MONO % 5.5 % (0.0-10.0); NEUT # 10.1 K/uL (1.8-7.0); NEUT % 87.8 % (50.0-75.0); PLATELET COUNT 270 K/uL (130-400); RBC 3.09 Mil/uL (4.40-5.90); RED CELL DISTRIBUTION WIDTH 13.2 % (11.5-14.5); WHITE BLOOD COUNT 11.5 K/uL (4.8-10.8)
[2017-12-30 06:53] LABS: ALB/GLOB RATIO 0.8 (1.0-2.1); ALBUMIN 2.4 g/dL (3.5-5.0); CALCIUM 9.7 mg/dl (8.6-10.4)
--- NOTE | 2017-12-30 07:45 | CP.PCM.PN ---
Subjective - Date & Time of Evaluation Date of Evaluation: 12/30/17 Time of Evaluation: 06:30 - Subjective Subjective: Cardiothoracic progress note for Dr. Martinez Patient seen and examined this AM in the ICU. Pt's respiratory status deteriorated since yesterday and is now on BIPAP. CTA was negative for embolism but showed persistent BL pleural effusions and compressive atelectasis. IR was consulted but stated collections were too small to be drained percutaneously. Patient reports persistent epigastric pain but no nausea or vomiting. Per nursing his is passing flatus yesterday but no BM, patient is tolerating clear liquid ensure Objective - Vital Signs/Intake and Output Vital Signs (last 24 hours): Temp Pulse Resp BP Pulse Ox 98.2 F 83 16 99/53 L 96 12/30/17 04:00 12/30/17 06:08 12/30/17 06:08 12/30/17 06:08 12/30/17 06:08 Intake and Output: 12/30/17 12/30/17 06:59 18:59 Intake Total 930 Output Total 420 Balance 510 - Medications Medications: Current Medications Albuterol/Ipratropium (Duoneb 3 Mg/0.5 Mg (3 Ml) Ud) 3 ml INH RQ6 [facility] Last Admin: 12/30/17 01:15 Dose: 3 ml Aspirin (Aspirin) 325 mg PO DAILY [facility] Last Admin: 12/29/17 10:55 Dose: 325 mg Digoxin (Lanoxin) 0.25 mg IVP DAILY@1800 [facility] Last Admin: 12/29/17 18:36 Dose: 0.25 mg Heparin Sodium (Porcine) (Heparin) 5,000 units SC Q12 [facility] Last Admin: 12/29/17 21:44 Dose: 5,000 units Metronidazole (Flagyl) 500 mg in 100 mls @ 100 mls/hr IVPB Q8H [facility] PRN Reason: Protocol Last Admin: 12/30/17 02:00 Dose: 100 mls/hr BUPIVACAINE 0.125%/0.9% [facility] (Bupivacaine-Ns 0.125% On-Q Insurance Claims Representative) 600 mls @ 4 mls/ hr IJ ONCE ONE Stop: 12/31/17 16:54 Last Admin: 12/25/17 19:38 Dose: Not Given Vancomycin/Sodium Chloride (Vancomycin 1 Gm/Ns 200 Ml) 1 gm in 200 mls @ 133.333 mls/hr IVPB Q24H [facility] PRN Reason: Protocol Last Admin: 12/29/17 11:05 Dose: 133.333 mls/hr Aztreonam 1 gm/ Sodium (Chloride) 100 mls @ 100 mls/hr IVPB Q12H [facility] PRN Reason: Protocol Last Admin: 12/29/17 21:59 Dose: 100 mls/hr Insulin Aspart (Novolog) 0 unit SC Q4H [facility] PRN Reason: Protocol Last Admin: 12/30/17 05:38 Dose: Not Given Insulin Glargine (Lantus) 20 unit SC [facility] Last Admin: 12/29/17 21:43 Dose: 20 u Metoprolol Tartrate (Lopressor) 12.5 mg PO BID [facility] Last Admin: 12/29/17 18:37 Dose: 12.5 mg Morphine Sulfate (Morphine) 2 mg IVP Q4 PRN PRN Reason: Pain, severe (8-10) Last Admin: 12/29/17 07:34 Dose: 2 mg Ondansetron HCl (Zofran Inj) 4 mg IVP Q6H PRN PRN Reason: Nausea/Vomiting Pantoprazole Sodium (Protonix Inj) 40 mg IVP Q12H [facility] Last Admin: 12/29/17 21:44 Dose: 40 mg Rosuvastatin Calcium (Crestor) 20 mg PO [facility] Last Admin: 12/29/17 22:00 Dose: 20 mg - Labs Labs: 12/30/17 06:18 12/30/17 06:18 PT 12.5 SECONDS (9.7-12.2) H 12/22/17 16:18 INR 1.1 12/22/17 16:18 APTT 48 SECONDS (21-34) H D 12/28/17 05:53 - Constitutional Appears: No Acute Distress - Head Exam Head Exam: ATRAUMATIC, NORMOCEPHALIC - Eye Exam Eye Exam: Normal appearance. absent: Conjunctival injection, Scleral icterus - ENT Exam ENT Exam: Mucous Membranes Moist, Normal Oropharynx - Respiratory Exam Respiratory Exam: absent: Respiratory Distress (on BIPAP) - Cardiovascular Exam Cardiovascular Exam: Irregular Rhythm. absent: Bradycardia, Tachycardia - GI/Abdominal Exam GI & Abdominal Exam: Soft, Tenderness (in the epigastrium). absent: Distended Additional comments: surgical incision well approximated by panda - Extremities Exam Extremities Exam: absent: Calf Tenderness, Pedal Edema - Neurological Exam Neurological Exam: Alert, Awake, Oriented x3 - Psychiatric Exam Psychiatric exam: Flat Affect, Normal Mood - Skin Skin Exam: Dry, Normal Color, Warm Assessment and Plan - Assessment and Plan (Free Text) Assessment: 77M with multivessel coronary artery disease Plan: -Patient is a very poor surgical candidate at this time with his poor respiratory status, recent surgery, and overall health. No surgical intervention in the near future--will need to recover and be medically optimized , and then may consider surgery in a month's time. -Please re-consult the cardiothoracic surgery team for any further questions or concerns. Thank you for this consult Discussed with Dr. Martinez who agrees with above Barby Monteiro, PGY2
[2017-12-30 08:47] LABS: BANDS 1 % (0-2); EOSINOPHIL 1 % (0-4); LYMPHOCYTE 6 % (20-40); MONOCYTE 4 % (0-10); NEUTROPHIL 88 % (50-75); PLATELET ESTIMATE NORMAL (NORMAL); TOTAL CELLS COUNTED 100
[2017-12-30 08:50] LABS: ANISOCYTOSIS SLIGHT
[2017-12-30 08:51] LABS: HYPOCHROMIC SLIGHT; OVALOCYTES SLIGHT; POIKILOCYTOSIS SLIGHT; POLYCHROMIC SLIGHT
[2017-12-30 08:52] LABS: BURR CELLS SLIGHT; LARGE PLATELETS PRESENT; TOXIC GRANULATION PRESENT
[2017-12-30] MEDS: Aztreonam 1 GM in Sodium Chloride 0.9% 100 ML IVPB SCH ×2 (10:05→22:00)
--- NOTE | 2017-12-30 10:20 | CP.PCM.PN ---
Subjective - Date & Time of Evaluation Date of Evaluation: 12/29/17 Time of Evaluation: 21:05 - Subjective Subjective: Patient seen and evaluated On BiPAP Denies chest pain and palpitations Physical Exam - Constitutional Appears: In Acute Distress (d/t pain) - Head Exam Head Exam: ATRAUMATIC, NORMOCEPHALIC - Eye Exam Eye Exam: Normal appearance. absent: Conjunctival injection, Scleral icterus - ENT Exam ENT Exam: Mucous Membranes Moist, Normal Oropharynx - Respiratory Exam Respiratory Exam: Rhonchi. absent: Accessory Muscle Use Additional comments: tachypnea - GI/Abdominal Exam GI & Abdominal Exam: Soft, Tenderness (epigastric and dariusz-incisional tenderness ). absent: Distended, Rebound Additional comments: incision well approximated with panda, no drainage, Constantino drain with minimal amount of sero-sanguinous output - Extremities Exam Extremities exam: Negative for: calf tenderness, pedal edema - Neurological Exam Neurological exam: Alert, Oriented x3 - Psychiatric Exam Psychiatric exam: Normal Affect, Normal Mood - Skin Skin Exam: Dry, Normal Color, Warm Objective - Vital Signs/Intake and Output Vital Signs (last 24 hours): Temp Pulse Resp BP Pulse Ox 98.2 F 98 H 16 99/53 L 96 12/30/17 04:00 12/30/17 08:10 12/30/17 06:08 12/30/17 06:08 12/30/17 06:08 Intake and Output: 12/30/17 12/30/17 06:59 18:59 Intake Total 930 Output Total 420 Balance 510 - Medications Medications: Current Medications Albuterol/Ipratropium (Duoneb 3 Mg/0.5 Mg (3 Ml) Ud) 3 ml INH RQ6 [facility] Last Admin: 12/30/17 08:10 Dose: 3 ml Aspirin (Aspirin) 325 mg PO DAILY [facility] Last Admin: 12/30/17 09:30 Dose: 325 mg Digoxin (Lanoxin) 0.25 mg IVP DAILY@1800 [facility] Last Admin: 12/29/17 18:36 Dose: 0.25 mg Heparin Sodium (Porcine) (Heparin) 5,000 units SC Q12 [facility] Last Admin: 12/30/17 09:29 Dose: 5,000 units Metronidazole (Flagyl) 500 mg in 100 mls @ 100 mls/hr IVPB Q8H [facility] PRN Reason: Protocol Last Admin: 12/30/17 10:06 Dose: 100 mls/hr BUPIVACAINE 0.125%/0.9% NACL (Bupivacaine-Ns 0.125% On-Q Field Staff) 600 mls @ 4 mls/ hr IJ ONCE ONE Stop: 12/31/17 16:54 Last Admin: 12/25/17 19:38 Dose: Not Given Vancomycin/Sodium Chloride (Vancomycin 1 Gm/Ns 200 Ml) 1 gm in 200 mls @ 133.333 mls/hr IVPB Q24H [facility] PRN Reason: Protocol Last Admin: 12/29/17 11:05 Dose: 133.333 mls/hr Aztreonam 1 gm/ Sodium (Chloride) 100 mls @ 100 mls/hr IVPB Q12H [facility] PRN Reason: Protocol Last Admin: 12/30/17 10:05 Dose: 100 mls/hr Insulin Aspart (Novolog) 0 unit SC Q4H [facility] PRN Reason: Protocol Insulin Glargine (Lantus) 20 unit SC [facility] Last Admin: 12/29/17 21:43 Dose: 20 u Metoprolol Tartrate (Lopressor) 12.5 mg PO BID [facility] Last Admin: 12/30/17 09:29 Dose: 12.5 mg Morphine Sulfate (Morphine) 2 mg IVP Q4 PRN PRN Reason: Pain, severe (8-10) Last Admin: 12/29/17 07:34 Dose: 2 mg Ondansetron HCl (Zofran Inj) 4 mg IVP Q6H PRN PRN Reason: Nausea/Vomiting Pantoprazole Sodium (Protonix Inj) 40 mg IVP Q12H [facility] Last Admin: 12/30/17 09:29 Dose: 40 mg Rosuvastatin Calcium (Crestor) 20 mg PO [facility] Last Admin: 12/29/17 22:00 Dose: 20 mg - Labs Labs: 12/30/17 06:18 12/30/17 06:18 PT 12.5 SECONDS (9.7-12.2) H 12/22/17 16:18 INR 1.1 12/22/17 16:18 APTT 48 SECONDS (21-34) H D 12/28/17 05:53 Assessment and Plan - Assessment and Plan (Free Text) Assessment: This is a 77 year old male with PMHx diabetes, hypertension, hypercholesterolemia admitted with perforated duodenal ulcer status post exploratory laparotomy with Repair of peptic perforation with Colin patch on 18. POD #7. Patient is s/p cardiac cath which showed multi vessel disease. Patient will need CABG, but if CT surgery refuses, high risk PCI will need to be performed. Tentative plan is for CABG after improvement in patient's clinical picture. Patient hypoxic this morning, switched onto BiPAP and will assess for PE. 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 f/u CTA PE protocol Duoneb Q6H [facility] Assessment: s/p Duodenal perforation Liquid Diet per surgery--encouraged eating Protonix 40 mg IV Q12 Supplements: Ensure Clear 2 with every meal Endocrine Assessment: DM 2 Accuchecks ACHS Novolog sliding scale ACHS Renal Gentle IV hydration due to contrast from cardiac cath and now for CTA Infectious Disease Assessment: Purulent drainage from duodenal perforation (POD #7) Azactam 1 gm IV Q12H Vancomycin 1 gm IV Q24H ID on consult Prophylaxis Heparin SC Q12H Protonix 40 mg IV Q12 Patient for CABG after 3-4 weeks once patient is more stable
--- NOTE | 2017-12-30 11:27 | RAD ---
HISTORY: evaluate for abdominal free air COMPARISON: Portable chest 12/29/2017. FINDINGS: Left central venous line unchanged in position. LUNGS: Pulmonary venous congestion pattern appears to have nearly completely resolved with left pleural effusion slightly increased in right pleural effusion remaining minimal. No pneumothorax bilaterally. Cardiac size appears stable. Left basilar atelectasis or infiltrate is unchanged. PLEURA: As above. CARDIOVASCULAR: As above. OSSEOUS STRUCTURES: No significant abnormalities. VISUALIZED UPPER ABDOMEN: Postop changes are again identified including skin panda at the midline and surgical tubing at the upper abdomen. Gas identified within what appears to be bowel loops and likely stomach. A large amount of free intrarenal gas is not identified. OTHER FINDINGS: None. IMPRESSION: Diminished if not resolved CHF pattern. Limited right pleural effusions a again evident with slight increase in a mild left pleural effusion. Rule tubing is again seen in the upper abdomen with skin panda also noted near the midline. A prominent free intrarenal gas collection is not evident. A free intrarenal gas is of clinical concern than consider follow-up abdomen radiograph obstructive series if patient is able to stand. If not then CT of the abdomen can be performed.
[2017-12-30] MEDS: Vancomycin 1 gm/NS 200 ml 1 GM/200 ML BAG IVPB SCH (12:58)
--- NOTE | 2017-12-30 15:22 | CP.CCUPN ---
CCU Subjective - Physician Review Events Since Last Encounter (Free Text): 12/30/17 15:20 alert and oriented, no complaints. CCU Objective - Vital Signs / Intake & Output Vital Signs (Last 4 hours): Vital Signs Pulse Resp BP Pulse Ox 12/30/17 14:08 103 H 23 138/70 97 12/30/17 14:00 100 H 24 92 L 12/30/17 13:08 108 H 20 134/69 92 L 12/30/17 13:00 102 H 25 H 96 12/30/17 12:08 105 H 25 H 116/67 96 12/30/17 12:00 97 H 19 96 Intake and Output (Last 8hrs): Intake & Output 12/30/17 12/30/17 12/30/17 06:59 14:59 22:59 Intake Total 560 750 Output Total 420 Balance 140 750 Intake: Intake, IV Amount 200 400 Left Proximal Port 200 400 Internal Jugular Oral 360 350 Output: Drainage 20 Right Lower Abdomen 20 Urine 400 Urine, Voided 400 - Physical Exam Head: Positive for: Atraumatic, Normocephalic Pupils: Positive for: PERRL Extroacular Muscles: Positive for: EOMI Mouth: Positive for: Moist Mucous Membranes Nose (External): Positive for: Other (NGT in place on suction) Neck: Positive for: Other (left IJ TLC) Respiratory/Chest: Positive for: Clear to Auscultation, Decreased Breath Sounds (at bases). Negative for: Wheezes, Rales, Rhonchi Cardiovascular: Positive for: Normal S1, S2, Irregular Rhythm, Tachycardic Abdomen: Positive for: Tenderness, Guarding, Other (Abdominal dressing clean,dry ,intact) Upper Extremity: Positive for: Normal Inspection Lower Extremity: Positive for: Normal Inspection Neurological: Positive for: GCS=15 Skin: Positive for: Warm, Dry Psychiatric: Positive for: Alert, Oriented x 3 Other physical findings (Free Text): cachexia - Medications Active Medications: Active Medications Generic Name Dose Route Start Last Admin Trade Name Freq PRN Reason Stop Dose Admin Albuterol/Ipratropium 3 ml 12/28/17 14:00 12/30/17 08:10 Duoneb 3 Mg/0.5 Mg (3 Ml) Ud INH 3 ml RQ6 [facility] Administration Aspirin 325 mg 12/29/17 10:00 12/30/17 09:30 Aspirin PO 325 mg DAILY [facility] Administration Digoxin 0.25 mg 12/27/17 18:00 12/29/17 18:36 Lanoxin IVP 0.25 mg DAILY@1800 [facility] Administration Heparin Sodium (Porcine) 5,000 units 12/28/17 22:00 12/30/17 09:29 Heparin SC 5,000 units Q12 [facility] Administration Metronidazole 500 mg in 100 mls @ 100 mls/hr 12/23/17 03:00 12/30/17 10:06 Flagyl IVPB 100 mls/hr Q8H [facility] Administration Protocol BUPIVACAINE 0.125%/0.9% NACL 600 mls @ 4 mls/hr 12/25/17 10:55 12/25/17 19:38 Bupivacaine-Ns 0.125% On-Q Finishing Supervisor [employer] IJ 12/31/17 16:54 Not Given ONCE ONE Vancomycin/Sodium Chloride 1 gm in 200 mls @ 133.333 mls/hr 12/26/17 12:00 11:05 Vancomycin 1 Gm/Ns 200 Ml IVPB 133.333 mls/hr Q24H [facility] Administration Protocol Aztreonam 1 gm/ Sodium 100 mls @ 100 mls/hr 12/27/17 11:00 12/30/17 10:05 Chloride IVPB 100 mls/hr Q12H [facility] Administration Protocol Insulin Aspart 0 unit 12/30/17 12:00 Novolog SC Q4H [facility] Protocol Insulin Glargine 20 unit 12/29/17 22:00 12/29/17 21:43 Lantus SC 20 u HS [facility] Administration Metoprolol Tartrate 12.5 mg 12/29/17 11:00 12/30/17 09:29 Lopressor PO 12.5 mg BID [facility] Administration Morphine Sulfate 2 mg 12/25/17 07:43 12/29/17 07:34 Morphine IVP 2 mg Q4 PRN Administration Pain, severe (8-10) Ondansetron HCl 4 mg 12/22/17 16:46 Zofran Inj IVP Q6H PRN Nausea/Vomiting Pantoprazole Sodium 40 mg 12/22/17 22:15 12/30/17 09:29 Protonix Inj IVP 40 mg Q12H [facility] Administration Rosuvastatin Calcium 20 mg 12/28/17 22:00 12/29/17 22:00 Crestor PO 20 mg HS [facility] Administration - Patient Studies Lab Studies: Microbiology Studies 12/26/17 11:30 Blood Culture - Preliminary Blood NO GROWTH AFTER 3 DAYS 12/26/17 11:00 Blood Culture - Preliminary Blood NO GROWTH AFTER 3 DAYS Lab Studies 12/30/17 12/30/17 12/30/17 Range/Units 12:18 06:18 06:18 WBC (4.8-10.8) K/uL RBC (4.40-5.90) Mil/uL Hgb (12.0-18.0) g/dL Hct (35.0-51.0) % MCV (80.0-94.0) fL MCH (27.0-31.0) pg MCHC (33.0-37.0) g/dL RDW (11.5-14.5) % Plt Count (130-400) K/uL MPV (7.2-11.7) fL Neut % (Auto) (50.0-75.0) % Lymph % (Auto) (20.0-40.0) % [place] % (Auto) (0.0-10.0) % Eos % (Auto) (0.0-4.0) % Baso % (Auto) (0.0-2.0) % Neut # (Auto) (1.8-7.0) K/uL Lymph # (Auto) (1.0-4.3) K/uL [place] # (Auto) (0.0-0.8) K/uL Eos # (Auto) (0.0-0.7) K/uL Baso # (Auto) (0.0-0.2) K/uL Neutrophils % (Manual) (50-75) % Band Neutrophils % (0-2) % Lymphocytes % (Manual) (20-40) % Monocytes % (Manual) (0-10) % Eosinophils % (Manual) (0-4) % Toxic Granulation Platelet Estimate (NORMAL) Large Platelets Polychromasia Hypochromasia (manual) Poikilocytosis (manual Anisocytosis (manual) Ovalocytes [place] Cells Sodium 144 (132-148) mmol/L Potassium 3.6 (3.6-5.2) mmol/L Chloride 106 (98-107) mmol/L Carbon Dioxide 26 (22-30) mmol/L Anion Gap 15 (10-20) BUN 46 H (9-20) mg/dL Creatinine 1.5 (0.8-1.5) mg/dL Est GFR ( Amer) 55 Est GFR (Non-Af Amer) 45 POC Glucose (mg/dL) 276 H (65-110) mg/dL Random Glucose 253 H (75-110) mg/dL Calcium 9.7 (8.6-10.4) mg/dl Phosphorus 2.5 (2.5-4.5) mg/dL Magnesium 1.9 (1.6-2.3) mg/dL Total Bilirubin 0.4 (0.2-1.3) mg/dL AST 18 (17-59) U/L ALT 22 (21-72) U/L Alkaline Phosphatase 79 (38-126) U/L Total Protein 5.6 L (6.3-8.3) g/dL Albumin 2.4 L (3.5-5.0) g/dL Globulin 3.2 (2.2-3.9) gm/dL Albumin/Globulin Ratio 0.8 L (1.0-2.1) Serum Ketones Negative (NEGATIVE) 12/30/17 12/30/17 12/30/17 Range/Units 06:18 05:03 01:23 WBC 11.5 H (4.8-10.8) K/uL RBC 3.09 L (4.40-5.90) Mil/uL Hgb 9.1 L (12.0-18.0) g/dL Hct 27.9 L (35.0-51.0) % MCV 90.4 (80.0-94.0) fL MCH 29.6 (27.0-31.0) pg MCHC 32.7 L (33.0-37.0) g/dL RDW 13.2 (11.5-14.5) % Plt Count 270 (130-400) K/uL MPV 9.9 (7.2-11.7) fL Neut % (Auto) 87.8 H (50.0-75.0) % Lymph % (Auto) 5.3 L (20.0-40.0) % [place] % (Auto) 5.5 (0.0-10.0) % Eos % (Auto) 1.1 (0.0-4.0) % Baso % (Auto) 0.3 (0.0-2.0) % Neut # (Auto) 10.1 H (1.8-7.0) K/uL Lymph # (Auto) 0.6 L (1.0-4.3) K/uL [place] # (Auto) 0.6 (0.0-0.8) K/uL Eos # (Auto) 0.1 (0.0-0.7) K/uL Baso # (Auto) 0.0 (0.0-0.2) K/uL Neutrophils % (Manual) 88 H (50-75) % Band Neutrophils % 1 (0-2) % Lymphocytes % (Manual) 6 L (20-40) % Monocytes % (Manual) 4 (0-10) % Eosinophils % (Manual) 1 (0-4) % Toxic Granulation Present Platelet Estimate Normal (NORMAL) Large Platelets Present Polychromasia Slight Hypochromasia (manual) Slight Poikilocytosis (manual Slight Anisocytosis (manual) Slight Ovalocytes Slight Ser[place]io Cells Slight Sodium (132-148) mmol/L Potassium (3.6-5.2) mmol/L Chloride (98-107) mmol/L Carbon Dioxide (22-30) mmol/L Anion Gap (10-20) BUN (9-20) mg/dL Creatinine (0.8-1.5) mg/dL Est GFR ( Amer) Est GFR (Non-Af Amer) POC Glucose (mg/dL) 278 H 382 H (65-110) mg/dL Random Glucose (75-110) mg/dL Calcium (8.6-10.4) mg/dl Phosphorus (2.5-4.5) mg/dL Magnesium (1.6-2.3) mg/dL Total Bilirubin (0.2-1.3) mg/dL AST (17-59) U/L ALT (21-72) U/L Alkaline Phosphatase (38-126) U/L Total Protein (6.3-8.3) g/dL Albumin (3.5-5.0) g/dL Globulin (2.2-3.9) gm/dL Albumin/Globulin Ratio (1.0-2.1) Serum Ketones (NEGATIVE) 04/20/18 04/20/18 04/20/18 Range/Units 21:23 21:20 16:07 WBC (4.8-10.8) K/uL RBC (4.40-5.90) Mil/uL Hgb (12.0-18.0) g/dL Hct (35.0-51.0) % MCV (80.0-94.0) fL MCH (27.0-31.0) pg MCHC (33.0-37.0) g/dL RDW (11.5-14.5) % Plt Count (130-400) K/uL MPV (7.2-11.7) fL Neut % (Auto) (50.0-75.0) % Lymph % (Auto) (20.0-40.0) % [place] % (Auto) (0.0-10.0) % Eos % (Auto) (0.0-4.0) % Baso % (Auto) (0.0-2.0) % Neut # (Auto) (1.8-7.0) K/uL Lymph # (Auto) (1.0-4.3) K/uL [place] # (Auto) (0.0-0.8) K/uL Eos # (Auto) (0.0-0.7) K/uL Baso # (Auto) (0.0-0.2) K/uL Neutrophils % (Manual) (50-75) % Band Neutrophils % (0-2) % Lymphocytes % (Manual) (20-40) % Monocytes % (Manual) (0-10) % Eosinophils % (Manual) (0-4) % Toxic Granulation Platelet Estimate (NORMAL) Large Platelets Polychromasia Hypochromasia (manual) Poikilocytosis (manual Anisocytosis (manual) Ovalocytes [place] Cells Sodium (132-148) mmol/L Potassium (3.6-5.2) mmol/L Chloride (98-107) mmol/L Carbon Dioxide (22-30) mmol/L Anion Gap (10-20) BUN (9-20) mg/dL Creatinine (0.8-1.5) mg/dL Est GFR ( Amer) Est GFR (Non-Af Amer) POC Glucose (mg/dL) > 500 H* > 500 H* 339 H (65-110) mg/dL Random Glucose (75-110) mg/dL Calcium (8.6-10.4) mg/dl Phosphorus (2.5-4.5) mg/dL Magnesium (1.6-2.3) mg/dL Total Bilirubin (0.2-1.3) mg/dL AST (17-59) U/L ALT (21-72) U/L Alkaline Phosphatase (38-126) U/L Total Protein (6.3-8.3) g/dL Albumin (3.5-5.0) g/dL Globulin (2.2-3.9) gm/dL Albumin/Globulin Ratio (1.0-2.1) Serum Ketones (NEGATIVE) Laboratory Results - last 24 hr 12/29/17 12/29/17 12/29/17 16:07 21:20 21:23 WBC RBC Hgb Hct MCV MCH MCHC RDW Plt Count MPV Neut % (Auto) Lymph % (Auto) [place] % (Auto) Eos % (Auto) Baso % (Auto) Neut # (Auto) Lymph # (Auto) [place] # (Auto) Eos # (Auto) Baso # (Auto) Neutrophils % (Manual) Band Neutrophils % Lymphocytes % (Manual) Monocytes % (Manual) Eosinophils % (Manual) Toxic Granulation Platelet Estimate Large Platelets Polychromasia Hypochromasia (manual) Poikilocytosis (manual Anisocytosis (manual) Ovalocytes [place] Cells Sodium Potassium Chloride Carbon Dioxide Anion Gap BUN Creatinine Est GFR ( Amer) Est GFR (Non-Af Amer) POC Glucose (mg/dL) 339 H > 500 H* > 500 H* Random Glucose Calcium Phosphorus Magnesium Total Bilirubin AST ALT Alkaline Phosphatase Total Protein Albumin Globulin Albumin/Globulin Ratio Serum Ketones 12/30/17 12/30/17 12/30/17 01:23 05:03 06:18 WBC 11.5 H RBC 3.09 L Hgb 9.1 L Hct 27.9 L MCV 90.4 MCH 29.6 MCHC 32.7 L RDW 13.2 Plt Count 270 MPV 9.9 Neut % (Auto) 87.8 H Lymph % (Auto) 5.3 L [place] % (Auto) 5.5 Eos % (Auto) 1.1 Baso % (Auto) 0.3 Neut # (Auto) 10.1 H Lymph # (Auto) 0.6 L [place] # (Auto) 0.6 Eos # (Auto) 0.1 Baso # (Auto) 0.0 Neutrophils % (Manual) 88 H Band Neutrophils % 1 Lymphocytes % (Manual) 6 L Monocytes % (Manual) 4 Eosinophils % (Manual) 1 Toxic Granulation Present Platelet Estimate Normal Large Platelets Present Polychromasia Slight Hypochromasia (manual) Slight Poikilocytosis (manual Slight Anisocytosis (manual) Slight Ovalocytes Slight [place] Cells Slight Sodium Potassium Chloride Carbon Dioxide Anion Gap BUN Creatinine Est GFR ( Amer) Est GFR (Non-Af Amer) POC Glucose (mg/dL) 382 H 278 H Random Glucose Calcium Phosphorus Magnesium Total Bilirubin AST ALT Alkaline Phosphatase Total Protein Albumin Globulin Albumin/Globulin Ratio Serum Ketones 12/30/17 12/30/17 12/30/17 06:18 06:18 12:18 WBC RBC Hgb Hct MCV MCH MCHC RDW Plt Count MPV Neut % (Auto) Lymph % (Auto) [place] % (Auto) Eos % (Auto) Baso % (Auto) Neut # (Auto) Lymph # (Auto) [place] # (Auto) Eos # (Auto) Baso # (Auto) Neutrophils % (Manual) Band Neutrophils % Lymphocytes % (Manual) Monocytes % (Manual) Eosinophils % (Manual) Toxic Granulation Platelet Estimate Large Platelets Polychromasia Hypochromasia (manual) Poikilocytosis (manual Anisocytosis (manual) Ovalocytes [place] Cells Sodium 144 Potassium 3.6 Chloride 106 Carbon Dioxide 26 Anion Gap 15 BUN 46 H Creatinine 1.5 Est GFR ( Amer) 55 Est GFR (Non-Af Amer) 45 POC Glucose (mg/dL) 276 H Random Glucose 253 H Calcium 9.7 Phosphorus 2.5 Magnesium 1.9 Total Bilirubin 0.4 AST 18 ALT 22 Alkaline Phosphatase 79 Total Protein 5.6 L Albumin 2.4 L Globulin 3.2 Albumin/Globulin Ratio 0.8 L Serum Ketones Negative Fingerstick Blood Sugar Results: 382 Review of Systems - Review of Systems All systems: reviewed and no additional remarkable complaints except (no complaints) Critical Care Progress Note - Nutrition Nutrition: Nutrition Category Date Time Status Liquid Diet [DIET] Diets 12/27/17 Lunch Active Assessment/Plan (1) Perforated abdominal viscus Assessment and plan: 77 year old male with PMHx diabetes, hypertension, hypercholesterolemia admitted with perforated duodenal ulcer status post exploratory laparotomy with Repair of peptic perforation with Colin patch on 12/22/17. POD #7. 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 Patient will need CABG, but if CT surgery refuses, high risk PCI will need to be performed. Tentative plan is for CABG after improvement in patient's clinical picture. Neuro: alert and oriented x 3. Weak, cachectic and deconditioned. Pulm: acute hypoxic respiratory failure secondary to atlectasis with shunting. CT chest showed significant bibasilar atelecatsis, no PE, no PNA. Encouraging incentive spirometer use, OOB to chair and Physical Therapy. Weaned off BIPAP to 40% NRB. With every use of incentive spirometer his oxygen saturation improves. CV: hemodynamically stable. Hem: anemia of chronic disease Renal: urine output wnl. Endo: DM type 2, hyperglycemic on Clinamix. Lantus 20 units qhs and SISS for coverage. GI: advanced to full liquid diet, with protein supplementation, Prostat tid and ensure clear tid. high dose protonix for recent perforated duodenal ulcer. ID: sepsis from duodenal ulcer perforation with peritonitis now improved and stable, continue Azactam 1 g IV piggyback every 12 hourly (12/26/17), vancomycin 1 g once a day daily for gram-positive/enterococcal coverage with intra-abdominal sepsis (12/26/17), Continue IV Flagyl 500 every 8 hourly (). D/C IV fluconazole 100 mg once a day (12/22/17-day 8). ID - Dr. Ly DVT proph - heparin sq GI proph - protonix IV q12h moyer for strict I/O's during acute illness Code status - full code Critical Care Time spent 35 minutes Multi-disciplinary rounds were performed with house staff, nursing, speech therapy, respiratory therapy, pharmacy and nutrition with integrated input from the primary team/attending and other consulting services. The documented time is cumulative and includes review of patient data/exams/labs/chart review and examination of the patient on rounds and throughout the day; time is exclusive of any procedures or teaching time. Current Visit: Yes Status: Acute
--- NOTE | 2017-12-30 18:07 | CP.PCM.PN ---
Subjective - Date & Time of Evaluation Date of Evaluation: 12/30/17 Time of Evaluation: 19:00 - Subjective Subjective: Pt seen and examined, afebrile, is feeling better Objective - Vital Signs/Intake and Output Vital Signs (last 24 hours): Temp Pulse Resp BP Pulse Ox 98.0 F 108 H 28 H 138/70 94 L 12/30/17 16:05 12/30/17 17:00 12/30/17 17:00 12/30/17 14:08 12/30/17 17:00 Intake and Output: 12/30/17 12/30/17 06:59 18:59 Intake Total 930 750 Output Total 420 Balance 510 750 - Medications Medications: Current Medications Albuterol/Ipratropium (Duoneb 3 Mg/0.5 Mg (3 Ml) Ud) 3 ml INH RQ6 [facility] Last Admin: 12/30/17 08:10 Dose: 3 ml Aspirin (Aspirin) 325 mg PO DAILY [facility] Last Admin: 12/30/17 09:30 Dose: 325 mg Digoxin (Lanoxin) 0.25 mg IVP DAILY@1800 [facility] Last Admin: 12/29/17 18:36 Dose: 0.25 mg Heparin Sodium (Porcine) (Heparin) 5,000 units SC Q12 [facility] Last Admin: 12/30/17 09:29 Dose: 5,000 units Metronidazole (Flagyl) 500 mg in 100 mls @ 100 mls/hr IVPB Q8H [facility] PRN Reason: Protocol Last Admin: 12/30/17 10:06 Dose: 100 mls/hr BUPIVACAINE 0.125%/0.9% NACL (Bupivacaine-Ns 0.125% On-Q Nuclear Medicine Specialist) 600 mls @ 4 mls/ hr IJ ONCE ONE Stop: 12/31/17 16:54 Last Admin: 12/25/17 19:38 Dose: Not Given Vancomycin/Sodium Chloride (Vancomycin 1 Gm/Ns 200 Ml) 1 gm in 200 mls @ 133.333 mls/hr IVPB Q24H [facility] PRN Reason: Protocol Last Admin: 12/29/17 11:05 Dose: 133.333 mls/hr Aztreonam 1 gm/ Sodium (Chloride) 100 mls @ 100 mls/hr IVPB Q12H [facility] PRN Reason: Protocol Last Admin: 12/30/17 10:05 Dose: 100 mls/hr Insulin Aspart (Novolog) 0 unit SC Q4H [facility] PRN Reason: Protocol Insulin Glargine (Lantus) 20 unit SC HS [facility] Last Admin: 12/29/17 21:43 Dose: 20 u Metoprolol Tartrate (Lopressor) 12.5 mg PO BID [facility] Last Admin: 12/30/17 09:29 Dose: 12.5 mg Morphine Sulfate (Morphine) 2 mg IVP Q4 PRN PRN Reason: Pain, severe (8-10) Last Admin: 12/29/17 07:34 Dose: 2 mg Ondansetron HCl (Zofran Inj) 4 mg IVP Q6H PRN PRN Reason: Nausea/Vomiting Pantoprazole Sodium (Protonix Inj) 40 mg IVP Q12H [facility] Last Admin: 12/30/17 09:29 Dose: 40 mg Rosuvastatin Calcium (Crestor) 20 mg PO [facility] Last Admin: 12/29/17 22:00 Dose: 20 mg - Labs Labs: 12/30/17 06:18 12/30/17 06:18 PT 12.5 SECONDS (9.7-12.2) H 12/22/17 16:18 INR 1.1 12/22/17 16:18 APTT 48 SECONDS (21-34) H D 12/28/17 05:53 Assessment and Plan (1) Perforated abdominal viscus Status: Acute (2) Diabetes mellitus Status: Acute (3) GERD (gastroesophageal reflux disease) Status: Acute (4) Acute non-ST elevation myocardial infarction (NSTEMI) Status: Acute
[2017-12-30] MEDS: Digoxin 500 mcg/2ml (0.5 mg/2ml) Inj IVP SCH (18:56)
[2017-12-30] MEDS ORDERED: oxyCODONE 5 mg Immediate Release Tab PO PRN (19:24)
[2017-12-30] MEDS ORDERED: Insulin Human Regular 100 UNIT in Sodium Chloride 0.9% 99 ML SC SCH (21:00)
[2017-12-30] MEDS ORDERED: Insulin Human Regular 100 UNIT in Sodium Chloride 0.9% 99 ML SC PRN ×4 (22:00→23:00)
[2017-12-30] MEDS ORDERED: Insulin Human Regular 100 UNIT in Sodium Chloride 0.9% 99 ML IV SCH (22:45)
--- NOTE | 2017-12-30 23:33 | CP.PCM.PN ---
Subjective - Date & Time of Evaluation Date of Evaluation: 12/30/17 Time of Evaluation: 19:05 - Subjective Subjective: Patient seen and evaluated On BiPAP Denies chest pain and palpitations Physical Exam - Constitutional Appears: In Acute Distress (d/t pain) - Head Exam Head Exam: ATRAUMATIC, NORMOCEPHALIC - Eye Exam Eye Exam: Normal appearance. absent: Conjunctival injection, Scleral icterus - ENT Exam ENT Exam: Mucous Membranes Moist, Normal Oropharynx - Respiratory Exam Respiratory Exam: Rhonchi. absent: Accessory Muscle Use Additional comments: tachypnea - GI/Abdominal Exam GI & Abdominal Exam: Soft, Tenderness (epigastric and dariusz-incisional tenderness ). absent: Distended, Rebound Additional comments: incision well approximated with panda, no drainage, Constantino drain with minimal amount of sero-sanguinous output - Extremities Exam Extremities exam: Negative for: calf tenderness, pedal edema - Neurological Exam Neurological exam: Alert, Oriented x3 - Psychiatric Exam Psychiatric exam: Normal Affect, Normal Mood - Skin Skin Exam: Dry, Normal Color, Warm Objective - Vital Signs/Intake and Output Vital Signs (last 24 hours): Temp Pulse Resp BP Pulse Ox 98.0 F 97 H 18 108/65 99 12/30/17 16:05 12/30/17 23:00 12/30/17 23:00 12/30/17 22:08 12/30/17 23:00 Intake and Output: 12/30/17 12/31/17 18:59 06:59 Intake Total 870 Output Total 530 Balance 340 - Medications Medications: Current Medications Albuterol/Ipratropium (Duoneb 3 Mg/0.5 Mg (3 Ml) Ud) 3 ml INH RQ6 [facility] Last Admin: 12/30/17 20:30 Dose: 3 ml Aspirin (Aspirin) 325 mg PO DAILY [facility] Last Admin: 12/30/17 09:30 Dose: 325 mg Digoxin (Lanoxin) 0.25 mg IVP DAILY@1800 [facility] Last Admin: 12/30/17 18:56 Dose: 0.25 mg Heparin Sodium (Porcine) (Heparin) 5,000 units SC Q12 [facility] Last Admin: 12/30/17 20:59 Dose: 5,000 units Metronidazole (Flagyl) 500 mg in 100 mls @ 100 mls/hr IVPB Q8H [facility] PRN Reason: Protocol Last Admin: 12/30/17 18:56 Dose: 100 mls/hr BUPIVACAINE 0.125%/0.9% NACL (Bupivacaine-Ns 0.125% On-Q Hat Measurer) 600 mls @ 4 mls/ hr IJ ONCE ONE Stop: 12/31/17 16:54 Last Admin: 12/25/17 19:38 Dose: Not Given Vancomycin/Sodium Chloride (Vancomycin 1 Gm/Ns 200 Ml) 1 gm in 200 mls @ 133.333 mls/hr IVPB Q24H [facility] PRN Reason: Protocol Last Admin: 12/30/17 12:58 Dose: 133.333 mls/hr Aztreonam 1 gm/ Sodium (Chloride) 100 mls @ 100 mls/hr IVPB Q12H [facility] PRN Reason: Protocol Last Admin: 12/30/17 22:00 Dose: 100 mls/hr Insulin Human Regular 100 unit (/ Sodium Chloride) 100 mls @ 16 mls/hr SC .Q6H15M PRN PRN Reason: Protocol Last Admin: 12/30/17 23:00 Dose: 16 mls/hr Metoprolol Tartrate (Lopressor) 12.5 mg PO BID [facility] Last Admin: 12/30/17 18:56 Dose: 12.5 mg Morphine Sulfate (Morphine) 2 mg IVP Q4 PRN PRN Reason: Pain, severe (8-10) Last Admin: 12/29/17 07:34 Dose: 2 mg Ondansetron HCl (Zofran Inj) 4 mg IVP Q6H PRN PRN Reason: Nausea/Vomiting Oxycodone HCl (Oxycodone Immediate Release Tab) 5 mg PO Q6 PRN PRN Reason: Pain, moderate (4-7) Pantoprazole Sodium (Protonix Inj) 40 mg IVP Q12H [facility] Last Admin: 12/30/17 21:17 Dose: 40 mg Rosuvastatin Calcium (Crestor) 20 mg PO HS [facility] Last Admin: 12/30/17 20:59 Dose: 20 mg - Labs Labs: 12/30/17 06:18 12/30/17 06:18 PT 12.5 SECONDS (9.7-12.2) H 12/22/17 16:18 INR 1.1 12/22/17 16:18 APTT 48 SECONDS (21-34) H D 04/19/18 05:53 Assessment and Plan - Assessment and Plan (Free Text) Assessment: This is a 77 year old male with PMHx diabetes, hypertension, hypercholesterolemia admitted with perforated duodenal ulcer status post exploratory laparotomy with Repair of peptic perforation with Colin patch on 418. POD #7. Patient is s/p cardiac cath which showed multi vessel disease. Patient will need CABG, but if CT surgery refuses, high risk PCI will need to be performed. Tentative plan is for CABG after improvement in patient's clinical picture. Patient hypoxic this morning, switched onto BiPAP and will assess for PE. 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 f/u CTA PE protocol Duoneb Q6H [facility] GI Assessment: s/p Duodenal perforation Liquid Diet per surgery--encouraged eating Protonix 40 mg IV Q12 Supplements: Ensure Clear 2 with every meal Endocrine Assessment: DM 2 Accuchecks ACHS Novolog sliding scale ACHS Renal Gentle IV hydration due to contrast from cardiac cath and now for CTA Infectious Disease Assessment: Purulent drainage from duodenal perforation (POD #7) Azactam 1 gm IV Q12H Vancomycin 1 gm IV Q24H ID on consult Prophylaxis Heparin SC Q12H Protonix 40 mg IV Q12 Patient for CABG after 3-4 weeks once patient is more stable
--- NOTE | 2017-12-30 23:53 | CP.PCM.PN ---
Subjective - Date & Time of Evaluation Date of Evaluation: 12/30/17 Time of Evaluation: 23:52 - Subjective Subjective: CHIEF COMPLAINTS TODAY : TEMP 99.4 ON BIPAP C/O ABDOMINAL DISCMFORT s/p cardiac catheterization 12/28/17- triple vessel disease Patient for cardiothoracic surgical evaluation for CABG as noted. ROS. HEENT : N. Resp : No cough, wheezing ,pleuritic CP ,or hemoptysis Cardio : No anginal CP, PND, orthopnea, palpitation GI : +VE ABDOMINAL PAIN, NO n/v ,diarrhea or GI bleeding . INDUSTRIAL PRODUCTION MANAGER : No headache, vertigo, focal deficit. Musculoskel : No joint swelling , Derm : No rash Psych : Normal affect. Ext : No swelling ,calf pain PE. Pt. awake in no distress. V.S As noted in the chart Head ,ear nose,throat and eyes : Normal. Neck : Supple with normal carotids. Lungs: DIMINISHED BS AT BASIS. Heart : S1 & S2 normal with S4. No murmur. Abd : SOFT, MILD TENDERNESS POSTOPERATIVE SITE Midline incision with panda in place, no erythema or drainage noted. Constantino insertion site with dressing in place- clean/dry/intact Neuro : Moves all ext. with no localized deficit. Ext : No edema with intact pulses.Non tender calves Derm : No rashes or decubitus ulcer. LABS/RADIOLOGY: REVIEWED CREATININE 1.4/bun 46 vanco trough 14.5 OK wbc 10.3 TROPONINS DECREASING. BLOOD CULTURES 12/26/17 -VE GROWTH TO DATE. chest x-ray 12/27/17-no active disease. Objective - Vital Signs/Intake and Output Vital Signs (last 24 hours): Temp Pulse Resp BP Pulse Ox 98.0 F 97 H 18 108/65 99 12/30/17 16:05 12/30/17 23:00 12/30/17 23:00 12/30/17 22:08 12/30/17 23:00 Intake and Output: 12/30/17 12/31/17 18:59 06:59 Intake Total 870 Output Total 530 Balance 340 - Medications Medications: Current Medications Albuterol/Ipratropium (Duoneb 3 Mg/0.5 Mg (3 Ml) Ud) 3 ml INH RQ6 [facility] Last Admin: 12/30/17 20:30 Dose: 3 ml Aspirin (Aspirin) 325 mg PO DAILY [facility] Last Admin: 12/30/17 09:30 Dose: 325 mg Digoxin (Lanoxin) 0.25 mg IVP DAILY@1800 [facility] Last Admin: 12/30/17 18:56 Dose: 0.25 mg Heparin Sodium (Porcine) (Heparin) 5,000 units SC Q12 [facility] Last Admin: 12/30/17 20:59 Dose: 5,000 units Metronidazole (Flagyl) 500 mg in 100 mls @ 100 mls/hr IVPB Q8H [facility] PRN Reason: Protocol Last Admin: 12/30/17 18:56 Dose: 100 mls/hr BUPIVACAINE 0.125%/0.9% NACL (Bupivacaine-Ns 0.125% On-Q Analytic Manager) 600 mls @ 4 mls/ hr IJ ONCE ONE Stop: 12/31/17 16:54 Last Admin: 12/25/17 19:38 Dose: Not Given Vancomycin/Sodium Chloride (Vancomycin 1 Gm/Ns 200 Ml) 1 gm in 200 mls @ 133.333 mls/hr IVPB Q24H [facility] PRN Reason: Protocol Last Admin: 12/30/17 12:58 Dose: 133.333 mls/hr Aztreonam 1 gm/ Sodium (Chloride) 100 mls @ 100 mls/hr IVPB Q12H [facility] PRN Reason: Protocol Last Admin: 12/30/17 22:00 Dose: 100 mls/hr Insulin Human Regular 100 unit (/ Sodium Chloride) 100 mls @ 16 mls/hr SC .Q6H15M PRN PRN Reason: Protocol Last Admin: 12/30/17 23:00 Dose: 16 mls/hr Metoprolol Tartrate (Lopressor) 12.5 mg PO BID [facility] Last Admin: 12/30/17 18:56 Dose: 12.5 mg Morphine Sulfate (Morphine) 2 mg IVP Q4 PRN PRN Reason: Pain, severe (8-10) Last Admin: 12/29/17 07:34 Dose: 2 mg Ondansetron HCl (Zofran Inj) 4 mg IVP Q6H PRN PRN Reason: Nausea/Vomiting Oxycodone HCl (Oxycodone Immediate Release Tab) 5 mg PO Q6 PRN PRN Reason: Pain, moderate (4-7) Pantoprazole Sodium (Protonix Inj) 40 mg IVP Q12H [facility] Last Admin: 12/30/17 21:17 Dose: 40 mg Rosuvastatin Calcium (Crestor) 20 mg PO HS [facility] Last Admin: 12/30/17 20:59 Dose: 20 mg - Labs Labs: 12/30/17 06:18 12/30/17 06:18 PT 12.5 SECONDS (9.7-12.2) H 12/22/17 16:18 INR 1.1 12/22/17 16:18 APTT 48 SECONDS (21-34) H D 12/28/17 05:53 Assessment and Plan (1) Sepsis associated hypotension Status: Acute (2) Perforated abdominal viscus Status: Acute (3) Status post exploratory laparotomy Status: Acute (4) Acute non-ST elevation myocardial infarction (NSTEMI) Status: Acute (5) CHF (congestive heart failure) Status: Acute (6) Diabetes mellitus Status: Acute - Assessment and Plan (Free Text) Plan: CONTINUE IV Azactam 1 g IV piggyback every 12 hourly. 12/26/17 ( PATIENT TOLERATED FIRST DOSE WITHOUT ANY REACTIONS. ) ON IV vancomycin 1 g once a day daily for gram-positive/enterococcal coverage with intra-abdominal sepsis.12/26/17 Continue IV Flagyl 500 every 8 hourly 12/22/17 PULMONARY TOILET
[2017-12-31] MEDS ORDERED: Insulin Human Regular 100 UNIT in Sodium Chloride 0.9% 99 ML SC PRN ×3 (01:06→03:00)
[2017-12-31] MEDS: Albuterol-Ipratrop 3 mg / 0.5 (3 ml) UD INH SCH ×4 (01:18→19:35)
[2017-12-31] MEDS: metroNIDAZOLE IV 500 mg/100 ml 500 MG/100 ML BAG IVPB SCH ×3 (02:00→18:00)
[2017-12-31 06:26] LABS: BASO % 0.2 % (0.0-2.0); EOS # 0.2 K/uL (0.0-0.7); EOS % 1.2 % (0.0-4.0); HEMOGLOBIN 9.4 g/dL (12.0-18.0); LYMPH # 0.6 K/uL (1.0-4.3); LYMPH % 4.2 % (20.0-40.0); MEAN CELL VOLUME 91.1 fL (80.0-94.0); MEAN CORPUSCULAR HEMOGLOBIN 29.3 pg (27.0-31.0); MEAN CORPUSCULAR HGB CONC 32.2 g/dL (33.0-37.0); MEAN PLATELET VOLUME 9.9 fL (7.2-11.7); MONO % 6.9 % (0.0-10.0); NEUT # 13.3 K/uL (1.8-7.0); NEUT % 87.5 % (50.0-75.0); PLATELET COUNT 344 K/uL (130-400); RBC 3.21 Mil/uL (4.40-5.90); RED CELL DISTRIBUTION WIDTH 13.4 % (11.5-14.5); WHITE BLOOD COUNT 15.2 K/uL (4.8-10.8)
[2017-12-31 06:41] LABS: ALB/GLOB RATIO 0.8 (1.0-2.1); ALBUMIN 2.5 g/dL (3.5-5.0)
--- NOTE | 2017-12-31 08:36 | CP.PCM.PN ---
<Sophie Gutierrez - Last Filed: 12/31/17 08:33> Subjective - Date & Time of Evaluation Date of Evaluation: 12/31/17 Time of Evaluation: 08:33 - Subjective Subjective: General Surgery- Dr. Villa Pt S&ELavinia MONTES. Pt is OOB in chair this morning. On non-rebreather. He complains of epigastric abdominal pain. He is tolerating full liquid diet. No N/V, F/C, SOB/CP. Objective - Vital Signs/Intake and Output Vital Signs (last 24 hours): Temp Pulse Resp BP Pulse Ox 98.4 F 111 H 22 122/78 98 12/31/17 04:00 12/31/17 07:09 12/31/17 07:09 12/31/17 07:09 12/31/17 07:09 Intake and Output: 12/31/17 12/31/17 06:59 18:59 Intake Total 611 0 Output Total 1000 Balance -389 0 - Medications Medications: Current Medications Albuterol/Ipratropium (Duoneb 3 Mg/0.5 Mg (3 Ml) Ud) 3 ml INH RQ6 [facility] Last Admin: 12/31/17 01:18 Dose: 3 ml Aspirin (Aspirin) 325 mg PO DAILY [facility] Last Admin: 12/30/17 09:30 Dose: 325 mg Digoxin (Lanoxin) 0.25 mg IVP DAILY@1800 [facility] Last Admin: 12/30/17 18:56 Dose: 0.25 mg Heparin Sodium (Porcine) (Heparin) 5,000 units SC Q12 [facility] Last Admin: 12/30/17 20:59 Dose: 5,000 units Metronidazole (Flagyl) 500 mg in 100 mls @ 100 mls/hr IVPB Q8H [facility] PRN Reason: Protocol Last Admin: 12/31/17 02:00 Dose: 100 mls/hr BUPIVACAINE 0.125%/0.9% NACL (Bupivacaine-Ns 0.125% On-Q Health Assessment And Treatment Teacher) 600 mls @ 4 mls/ hr IJ ONCE ONE Stop: 12/31/17 16:54 Last Admin: 12/25/17 19:38 Dose: Not Given Vancomycin/Sodium Chloride (Vancomycin 1 Gm/Ns 200 Ml) 1 gm in 200 mls @ 133.333 mls/hr IVPB Q24H [facility] PRN Reason: Protocol Last Admin: 12/30/17 12:58 Dose: 133.333 mls/hr Aztreonam 1 gm/ Sodium (Chloride) 100 mls @ 100 mls/hr IVPB Q12H [facility] PRN Reason: Protocol Last Admin: 12/30/17 22:00 Dose: 100 mls/hr Insulin Human Regular 100 unit (/ Sodium Chloride) 100 mls @ 4 mls/hr SC .Q24H PRN PRN Reason: Protocol Last Admin: 12/31/17 03:00 Dose: 4 mls/hr Metoprolol Tartrate (Lopressor) 12.5 mg PO BID [facility] Last Admin: 12/30/17 18:56 Dose: 12.5 mg Morphine Sulfate (Morphine) 2 mg IVP Q4 PRN PRN Reason: Pain, severe (8-10) Last Admin: 12/29/17 07:34 Dose: 2 mg Ondansetron HCl (Zofran Inj) 4 mg IVP Q6H PRN PRN Reason: Nausea/Vomiting Oxycodone HCl (Oxycodone Immediate Release Tab) 5 mg PO Q6 PRN PRN Reason: Pain, moderate (4-7) Pantoprazole Sodium (Protonix Inj) 40 mg IVP Q12H [facility] Last Admin: 12/30/17 21:17 Dose: 40 mg Rosuvastatin Calcium (Crestor) 20 mg PO HS [facility] Last Admin: 12/30/17 20:59 Dose: 20 mg - Labs Labs: 12/31/17 06:17 12/31/17 06:17 PT 12.5 SECONDS (9.7-12.2) H 12/22/17 16:18 INR 1.1 12/22/17 16:18 APTT 48 SECONDS (21-34) H D 12/28/17 05:53 - Constitutional Appears: No Acute Distress - Head Exam Head Exam: ATRAUMATIC, NORMAL INSPECTION, NORMOCEPHALIC - Eye Exam Eye Exam: Normal appearance - Respiratory Exam Respiratory Exam: NORMAL BREATHING PATTERN. absent: Respiratory Distress - GI/Abdominal Exam GI & Abdominal Exam: Guarding, Soft, Tenderness (epigastric). absent: Distended , Firm, Rigid, Rebound Additional comments: staple line c/d/i Constantino drain with serosanguinous drainage - Neurological Exam Neurological Exam: Alert, Oriented x3 - Psychiatric Exam Psychiatric exam: Normal Affect, Normal Mood - Skin Skin Exam: Dry, Intact Assessment and Plan - Assessment and Plan (Free Text) Assessment: 77M POD#9 s/p ex-lap & Colin patch for duodenal perforation, post-op NSTEMI and pneumonia Plan: Cont Full liquid diet and PPN until adequate PO intake OOB to chair and Physical therapy Pain control prn Encourage IS Further management as per primary team DW Dr Villa <Fred Villa - Last Filed: 01/06/18 18:40> Objective - Vital Signs/Intake and Output Vital Signs (last 24 hours): Temp Pulse Resp BP Pulse Ox 97.1 F L 94 H 16 137/77 95 01/06/18 18:00 01/06/18 18:00 01/06/18 18:00 01/06/18 18:22 01/06/18 18:00 Intake and Output: 01/06/18 01/06/18 06:59 18:59 Intake Total 960 Output Total 300 Balance 660 - Medications Medications: Current Medications Albuterol/Ipratropium (Duoneb 3 Mg/0.5 Mg (3 Ml) Ud) 3 ml INH RQ6 [facility] Last Admin: 01/06/18 07:36 Dose: 3 ml Aspirin (Aspirin) 325 mg PO DAILY [facility] Last Admin: 01/06/18 09:52 Dose: 325 mg Heparin Sodium (Porcine) (Heparin) 5,000 units SC Q12 [facility] Last Admin: 01/06/18 09:52 Dose: 5,000 units Insulin Detemir (Levemir) 15 unit SC Q12 [facility] Last Admin: 01/06/18 09:52 Dose: 15 unit Insulin Human Regular (Novolin R) 0 unit SC Q6H [facility] PRN Reason: Protocol Last Admin: 01/06/18 18:22 Dose: 6 unit Metoprolol Tartrate (Lopressor) 25 mg PO BID [facility] Last Admin: 01/06/18 18:22 Dose: 25 mg Ondansetron HCl (Zofran Inj) 4 mg IVP Q6H PRN PRN Reason: Nausea/Vomiting Oxycodone/Acetaminophen (Percocet 5/325 Mg Tab) 1 tab PO Q4H PRN PRN Reason: Pain, moderate (4-7) Stop: 01/07/18 20:10 Last Admin: 01/05/18 04:38 Dose: 1 tab Pantoprazole Sodium (Protonix Inj) 40 mg IVP Q12H [facility] Last Admin: 01/06/18 09:51 Dose: 40 mg Rosuvastatin Calcium (Crestor) 20 mg PO HS [facility] Last Admin: 01/05/18 21:19 Dose: 20 mg Sertraline HCl (Zoloft) 25 mg PO DAILY [facility] Last Admin: 01/06/18 09:53 Dose: 25 mg Trazodone HCl (Desyrel) 25 mg PO HS [facility] Last Admin: 01/05/18 21:19 Dose: 25 mg - Labs Labs: 01/06/18 06:21 01/06/18 06:21 PT 12.5 SECONDS (9.7-12.2) H 12/22/17 16:18 INR 1.1 12/22/17 16:18 APTT 48 SECONDS (21-34) H D 12/28/17 05:53 Attending/Attestation - Attestation I have fully participated in the care of the patient.: Yes I have reviewed all pertinent clinical information, including history, physical exam and plan: Yes Notes (Text): Pt is stable with Pneumonia and post op RI On tube feed C/w IV antibiotics c/w current mx Plan d.w pt and primary team in detail
[2017-12-31] MEDS: Insulin Detemir 100 units/ml Vial (Levemir) SC SCH ×2 (09:58→20:59)
[2017-12-31] MEDS: Aztreonam 1 GM in Sodium Chloride 0.9% 100 ML IVPB SCH ×2 (10:39→22:00)
--- NOTE | 2017-12-31 10:40 | CARDCATH ---
PROCEDURE DATE: 12/25/2017. PROCEDURES: 1. Left heart catheterization. 2. Coronary angiogram. 3. Radiological supervision and radiological interpretation of the above-mentioned procedure. CLINICAL INDICATIONS: 1. Chest pain. 2. Mwy-HY-rosfhdgmc myocardial infarction. 3. Coronary artery disease. 4. Hypertension. 5. Hyperlipidemia. 6. Diabetes. REFERRING PHYSICIAN: Alex Siddiqui MD. PERFORMING PHYSICIAN: Brandon Milan MD. BRIEF CLINICAL HISTORY: Suresh Aldana is a 77-year-old gentleman originally admitted to [facility] Intensive [facility] Unit after abdominal surgery. During the postop recovery time, the patient sustained a [id number] myocardial infarction with a peak troponin of 8. The patient was started on anti-ischemic therapy and anticoagulation therapy and today the patient brought to cardiac distillery laborer to study the coronary anatomy. PROCEDURE: After informed consent, the patient was prepped and draped in the usual sterile fashion. A 2% lidocaine was given in the right wrist for local anesthesia. Using micropuncture technique, a 6-Icelandic sheath was introduced into the right common femoral artery. However, radiologic catheterizations were not successful as the patient has extreme tortuosities in the axillary and subclavian area. The procedure was switched to right groin access. A 6-Icelandic JL4 diagnostic catheter engaged into the left main coronary artery. Contrast injected and left coronary angiogram was done. Then a JR4 6-Icelandic diagnostic catheter engaged into right coronary artery. The contrast injected and right coronary angiogram was done. The patient tolerated the procedures well. FINDINGS: 1. Distal left main coronary artery has a 50% to 60% concentric stenosis. 2. Proximal LAD has a 80% to 85% concentric stenosis. Distal LAD has a 95% eccentric stenosis. Diagonal branches are patent. 3. Left circumflex and obtuse marginal branches are patent. 4. Right coronary artery is dominant. Distal right coronary artery has 60% eccentric stenosis. PDA and PLV branches are patent. 5. LV ejection fraction by echo is approximately 70%. IMPRESSION: Distal left main 50% to 60% and significant left anterior descending (coronary artery) disease. PLAN: Recommend coronary artery bypass grafting, but he is not a candidate for CT surgery due to high risk intervention of the left main and LAD coronary arteries. Brandon Milan MD [facility] # [id number]
[2017-12-31 10:53] LABS: EOSINOPHIL 2 % (0-4); LYMPHOCYTE 4 % (20-40); MONOCYTE 8 % (0-10); NEUTROPHIL 86 % (50-75); PLATELET ESTIMATE NORMAL (NORMAL); TOTAL CELLS COUNTED 100
[2017-12-31 10:54] LABS: ANISOCYTOSIS SLIGHT; LARGE PLATELETS PRESENT
[2017-12-31 10:55] LABS: HYPOCHROMIC SLIGHT; POIKILOCYTOSIS SLIGHT; POLYCHROMIC SLIGHT; TOXIC GRANULATION PRESENT
[2017-12-31 10:56] LABS: GIANT PLATELETS PRESENT; OVALOCYTES SLIGHT
[2017-12-31] MEDS ORDERED: (Novolin R) Insulin Human Regular 100 units/ml vial SC SCH (11:45)
[2017-12-31] MEDS ORDERED: (Novolin R) Insulin Human Regular 100 units/ml vial IV ONE (12:04)
[2017-12-31] MEDS: Vancomycin 1 gm/NS 200 ml 1 GM/200 ML BAG IVPB SCH (12:24)
[2017-12-31] MEDS: (Novolin R) Insulin Human Regular 100 units/ml vial SC SCH ×3 (12:25→20:55)
--- NOTE | 2017-12-31 13:43 | CP.CCUPN ---
CCU Subjective - Physician Review Events Since Last Encounter (Free Text): 12/31/17 13:23 weak, cachectic, deconditioned, alert, oriented, no complaints. CCU Objective - Vital Signs / Intake & Output Vital Signs (Last 4 hours): Vital Signs Temp Pulse Resp BP Pulse Ox 12/31/17 12:08 89 15 106/61 99 12/31/17 12:00 98.8 F 88 17 114/69 98 12/31/17 11:10 94 H 22 114/69 96 12/31/17 10:08 103 H 21 113/70 95 12/31/17 10:00 111 H 20 100 Intake and Output (Last 8hrs): Intake & Output 12/30/17 12/31/17 12/31/17 22:59 06:59 14:59 Intake Total 460 271 810 Output Total 530 1000 Balance -70 -729 810 Weight 140 lb 141 lb 4.8 oz Intake: Intake, IV Amount 100 151 500 Left Forearm 0 Left Forearm #2 0 Left Medial Port 51 100 Left Proximal Port 100 100 400 Internal Jugular Right Forearm 0 Oral 360 120 310 Output: Drainage 30 Right Lower Abdomen 30 Urine 500 1000 Urine, Voided 500 1000 - Physical Exam Head: Positive for: Atraumatic, Normocephalic Pupils: Positive for: PERRL Extroacular Muscles: Positive for: EOMI Mouth: Positive for: Moist Mucous Membranes Nose (External): Positive for: Other (NGT in place on suction) Neck: Positive for: Other (left IJ TLC) Respiratory/Chest: Positive for: Clear to Auscultation, Decreased Breath Sounds (at bases). Negative for: Wheezes, Rales, Rhonchi Cardiovascular: Positive for: Normal S1, S2, Irregular Rhythm, Tachycardic Abdomen: Positive for: Tenderness, Guarding, Other (Abdominal dressing clean,dry ,intact) Upper Extremity: Positive for: Normal Inspection Lower Extremity: Positive for: Normal Inspection Neurological: Positive for: GCS=15 Skin: Positive for: Warm, Dry Psychiatric: Positive for: Alert, Oriented x 3 - Medications Active Medications: Active Medications Generic Name Dose Route Start Last Admin Trade Name Freq PRN Reason Stop Dose Admin Albuterol/Ipratropium 3 ml 12/28/17 14:00 12/31/17 08:40 Duoneb 3 Mg/0.5 Mg (3 Ml) Ud INH 3 ml RQ6 KAROLINE Administration Aspirin 325 mg 12/29/17 10:00 12/31/17 09:59 Aspirin PO 325 mg DAILY KAROLINE Administration Digoxin 0.25 mg 12/27/17 18:00 12/30/17 18:56 Lanoxin IVP 0.25 mg DAILY@1800 KAROLINE Administration Heparin Sodium (Porcine) 5,000 units 12/28/17 22:00 12/31/17 09:59 Heparin SC 5,000 units Q12 KAROLINE Administration Metronidazole 500 mg in 100 mls @ 100 mls/hr 12/23/17 03:00 12/31/17 10:39 Flagyl IVPB 100 mls/hr Q8H KAROLINE Administration Protocol BUPIVACAINE 0.125%/0.9% NACL 600 mls @ 4 mls/hr 12/25/17 10:55 12/25/17 19:38 Bupivacaine-Ns 0.125% On-Q Developmental Writing Instructor IJ 12/31/17 16:54 Not Given ONCE ONE Aztreonam 1 gm/ Sodium 100 mls @ 100 mls/hr 12/27/17 11:00 12/31/17 10:39 Chloride IVPB 100 mls/hr Q12H [facility] Administration Protocol Potassium Chloride 20 meq in 100 mls @ 50 mls/hr 12/31/17 11:43 12/31/17 12: 22 Potassium Chloride 20 Meq/100 Ml IVPB 12/31/17 13:42 50 mls/hr ONCE ONE Administration Insulin Detemir 15 unit 12/31/17 10:00 12/31/17 09:58 Levemir SC 15 unit Q12 KAROLINE Administration Insulin Human Regular 0 unit 12/31/17 12:00 12/31/17 12:25 Novolin R SC Not Given Q4H [facility] Protocol Metoprolol Tartrate 12.5 mg 12/29/17 11:00 12/31/17 09:59 Lopressor PO 12.5 mg BID KAROLINE Administration Morphine Sulfate 2 mg 12/25/17 07:43 12/29/17 07:34 Morphine IVP 2 mg Q4 PRN Administration Pain, severe (8-10) Ondansetron HCl 4 mg 12/22/17 16:46 Zofran Inj IVP Q6H PRN Nausea/Vomiting Oxycodone HCl 5 mg 12/30/17 19:24 Oxycodone Immediate Release Tab PO Q6 PRN Pain, moderate (4-7) Pantoprazole Sodium 40 mg 12/22/17 22:15 12/31/17 09:59 Protonix Inj IVP 40 mg Q12H KAROLINE Administration Rosuvastatin Calcium 20 mg 12/28/17 22:00 12/30/17 20:59 Crestor PO 20 mg HS KAROLINE Administration - Patient Studies Lab Studies: Microbiology Studies 12/26/17 11:30 Blood Culture - Preliminary Blood NO GROWTH AFTER 4 DAYS 12/26/17 11:00 Blood Culture - Preliminary Blood NO GROWTH AFTER 4 DAYS Lab Studies 12/31/17 12/31/17 12/31/17 Range/Units 10:42 08:33 07:14 WBC (4.8-10.8) K/uL RBC (4.40-5.90) Mil/uL Hgb (12.0-18.0) g/dL Hct (35.0-51.0) % MCV (80.0-94.0) fL MCH (27.0-31.0) pg MCHC (33.0-37.0) g/dL RDW (11.5-14.5) % Plt Count (130-400) K/uL MPV (7.2-11.7) fL Neut % (Auto) (50.0-75.0) % Lymph % (Auto) (20.0-40.0) % Vilas % (Auto) (0.0-10.0) % Eos % (Auto) (0.0-4.0) % Baso % (Auto) (0.0-2.0) % Neut # (Auto) (1.8-7.0) K/uL Lymph # (Auto) (1.0-4.3) K/uL Vilas # (Auto) (0.0-0.8) K/uL Eos # (Auto) (0.0-0.7) K/uL Baso # (Auto) (0.0-0.2) K/uL Neutrophils % (Manual) (50-75) % Lymphocytes % (Manual) (20-40) % Monocytes % (Manual) (0-10) % Eosinophils % (Manual) (0-4) % Toxic Granulation Platelet Estimate (NORMAL) Large Platelets Giant Platelets Polychromasia Hypochromasia (manual) Poikilocytosis (manual Anisocytosis (manual) Ovalocytes Sodium (132-148) mmol/L Potassium (3.6-5.2) mmol/L Chloride (98-107) mmol/L Carbon Dioxide (22-30) mmol/L Anion Gap (10-20) BUN (9-20) mg/dL Creatinine (0.8-1.5) mg/dL Est GFR ( Amer) Est GFR (Non-Af Amer) POC Glucose (mg/dL) 346 H 200 H 169 H (65-110) mg/dL Random Glucose (75-110) mg/dL Calcium (8.6-10.4) mg/dl Phosphorus (2.5-4.5) mg/dL Magnesium (1.6-2.3) mg/dL Total Bilirubin (0.2-1.3) mg/dL AST (17-59) U/L ALT (21-72) U/L Alkaline Phosphatase (38-126) U/L Total Protein (6.3-8.3) g/dL Albumin (3.5-5.0) g/dL Globulin (2.2-3.9) gm/dL Albumin/Globulin Ratio (1.0-2.1) 12/31/17 12/31/17 12/31/17 Range/Units 06:17 06:17 06:14 WBC 15.2 H (4.8-10.8) K/uL RBC 3.21 L (4.40-5.90) Mil/uL Hgb 9.4 L (12.0-18.0) g/dL Hct 29.2 L (35.0-51.0) % MCV 91.1 (80.0-94.0) fL MCH 29.3 (27.0-31.0) pg MCHC 32.2 L (33.0-37.0) g/dL RDW 13.4 (11.5-14.5) % Plt Count 344 (130-400) K/uL MPV 9.9 (7.2-11.7) fL Neut % (Auto) 87.5 H (50.0-75.0) % Lymph % (Auto) 4.2 L (20.0-40.0) % Vilas % (Auto) 6.9 (0.0-10.0) % Eos % (Auto) 1.2 (0.0-4.0) % Baso % (Auto) 0.2 (0.0-2.0) % Neut # (Auto) 13.3 H (1.8-7.0) K/uL Lymph # (Auto) 0.6 L (1.0-4.3) K/uL Vilas # (Auto) 1.0 H (0.0-0.8) K/uL Eos # (Auto) 0.2 (0.0-0.7) K/uL Baso # (Auto) 0.0 (0.0-0.2) K/uL Neutrophils % (Manual) 86 H (50-75) % Lymphocytes % (Manual) 4 L (20-40) % Monocytes % (Manual) 8 (0-10) % Eosinophils % (Manual) 2 (0-4) % Toxic Granulation Present Platelet Estimate Normal (NORMAL) Large Platelets Present Giant Platelets Present Polychromasia Slight Hypochromasia (manual) Slight Poikilocytosis (manual Slight Anisocytosis (manual) Slight Ovalocytes Slight Sodium 149 H (132-148) mmol/L Potassium 3.3 L (3.6-5.2) mmol/L Chloride 112 H (98-107) mmol/L Carbon Dioxide 25 (22-30) mmol/L Anion Gap 15 (10-20) BUN 43 H (9-20) mg/dL Creatinine 1.5 (0.8-1.5) mg/dL Est GFR ( Amer) 55 Est GFR (Non-Af Amer) 45 POC Glucose (mg/dL) 122 H (65-110) mg/dL Random Glucose 74 L (75-110) mg/dL Calcium 10.0 (8.6-10.4) mg/dl Phosphorus 2.1 L (2.5-4.5) mg/dL Magnesium 1.7 (1.6-2.3) mg/dL Total Bilirubin 0.4 (0.2-1.3) mg/dL AST 21 (17-59) U/L ALT 18 L (21-72) U/L Alkaline Phosphatase 85 (38-126) U/L Total Protein 5.8 L (6.3-8.3) g/dL Albumin 2.5 L (3.5-5.0) g/dL Globulin 3.3 (2.2-3.9) gm/dL Albumin/Globulin Ratio 0.8 L (1.0-2.1) 12/31/17 12/31/17 12/31/17 Range/Units 04:59 04:06 02:51 WBC (4.8-10.8) K/uL RBC (4.40-5.90) Mil/uL Hgb (12.0-18.0) g/dL Hct (35.0-51.0) % MCV (80.0-94.0) fL MCH (27.0-31.0) pg MCHC (33.0-37.0) g/dL RDW (11.5-14.5) % Plt Count (130-400) K/uL MPV (7.2-11.7) fL Neut % (Auto) (50.0-75.0) % Lymph % (Auto) (20.0-40.0) % Vilas % (Auto) (0.0-10.0) % Eos % (Auto) (0.0-4.0) % Baso % (Auto) (0.0-2.0) % Neut # (Auto) (1.8-7.0) K/uL Lymph # (Auto) (1.0-4.3) K/uL Vilas # (Auto) (0.0-0.8) K/uL Eos # (Auto) (0.0-0.7) K/uL Baso # (Auto) (0.0-0.2) K/uL Neutrophils % (Manual) (50-75) % Lymphocytes % (Manual) (20-40) % Monocytes % (Manual) (0-10) % Eosinophils % (Manual) (0-4) % Toxic Granulation Platelet Estimate (NORMAL) Large Platelets Giant Platelets Polychromasia Hypochromasia (manual) Poikilocytosis (manual Anisocytosis (manual) Ovalocytes Sodium (132-148) mmol/L Potassium (3.6-5.2) mmol/L Chloride (98-107) mmol/L Carbon Dioxide (22-30) mmol/L Anion Gap (10-20) BUN (9-20) mg/dL Creatinine (0.8-1.5) mg/dL Est GFR ( Amer) Est GFR (Non-Af Amer) POC Glucose (mg/dL) 89 108 175 H (65-110) mg/dL Random Glucose (75-110) mg/dL Calcium (8.6-10.4) mg/dl Phosphorus (2.5-4.5) mg/dL Magnesium (1.6-2.3) mg/dL Total Bilirubin (0.2-1.3) mg/dL AST (17-59) U/L ALT (21-72) U/L Alkaline Phosphatase (38-126) U/L Total Protein (6.3-8.3) g/dL Albumin (3.5-5.0) g/dL Globulin (2.2-3.9) gm/dL Albumin/Globulin Ratio (1.0-2.1) 12/31/17 12/31/17 12/31/17 Range/Units 02:03 01:04 00:03 WBC (4.8-10.8) K/uL RBC (4.40-5.90) Mil/uL Hgb (12.0-18.0) g/dL Hct (35.0-51.0) % MCV (80.0-94.0) fL MCH (27.0-31.0) pg MCHC (33.0-37.0) g/dL RDW (11.5-14.5) % Plt Count (130-400) K/uL MPV (7.2-11.7) fL Neut % (Auto) (50.0-75.0) % Lymph % (Auto) (20.0-40.0) % Vilas % (Auto) (0.0-10.0) % Eos % (Auto) (0.0-4.0) % Baso % (Auto) (0.0-2.0) % Neut # (Auto) (1.8-7.0) K/uL Lymph # (Auto) (1.0-4.3) K/uL Vilas # (Auto) (0.0-0.8) K/uL Eos # (Auto) (0.0-0.7) K/uL Baso # (Auto) (0.0-0.2) K/uL Neutrophils % (Manual) (50-75) % Lymphocytes % (Manual) (20-40) % Monocytes % (Manual) (0-10) % Eosinophils % (Manual) (0-4) % Toxic Granulation Platelet Estimate (NORMAL) Large Platelets Giant Platelets Polychromasia Hypochromasia (manual) Poikilocytosis (manual Anisocytosis (manual) Ovalocytes Sodium (132-148) mmol/L Potassium (3.6-5.2) mmol/L Chloride (98-107) mmol/L Carbon Dioxide (22-30) mmol/L Anion Gap (10-20) BUN (9-20) mg/dL Creatinine (0.8-1.5) mg/dL Est GFR ( Amer) Est GFR (Non-Af Amer) POC Glucose (mg/dL) 198 H 295 H 457 H* (65-110) mg/dL Random Glucose (75-110) mg/dL Calcium (8.6-10.4) mg/dl Phosphorus (2.5-4.5) mg/dL Magnesium (1.6-2.3) mg/dL Total Bilirubin (0.2-1.3) mg/dL AST (17-59) U/L ALT (21-72) U/L Alkaline Phosphatase (38-126) U/L Total Protein (6.3-8.3) g/dL Albumin (3.5-5.0) g/dL Globulin (2.2-3.9) gm/dL Albumin/Globulin Ratio (1.0-2.1) 12/30/17 12/30/17 12/30/17 Range/Units 23:12 22:05 19:59 WBC (4.8-10.8) K/uL RBC (4.40-5.90) Mil/uL Hgb (12.0-18.0) g/dL Hct (35.0-51.0) % MCV (80.0-94.0) fL MCH (27.0-31.0) pg MCHC (33.0-37.0) g/dL RDW (11.5-14.5) % Plt Count (130-400) K/uL MPV (7.2-11.7) fL Neut % (Auto) (50.0-75.0) % Lymph % (Auto) (20.0-40.0) % Vilas % (Auto) (0.0-10.0) % Eos % (Auto) (0.0-4.0) % Baso % (Auto) (0.0-2.0) % Neut # (Auto) (1.8-7.0) K/uL Lymph # (Auto) (1.0-4.3) K/uL Vilas # (Auto) (0.0-0.8) K/uL Eos # (Auto) (0.0-0.7) K/uL Baso # (Auto) (0.0-0.2) K/uL Neutrophils % (Manual) (50-75) % Lymphocytes % (Manual) (20-40) % Monocytes % (Manual) (0-10) % Eosinophils % (Manual) (0-4) % Toxic Granulation Platelet Estimate (NORMAL) Large Platelets Giant Platelets Polychromasia Hypochromasia (manual) Poikilocytosis (manual Anisocytosis (manual) Ovalocytes Sodium (132-148) mmol/L Potassium (3.6-5.2) mmol/L Chloride (98-107) mmol/L Carbon Dioxide (22-30) mmol/L Anion Gap (10-20) BUN (9-20) mg/dL Creatinine (0.8-1.5) mg/dL Est GFR ( Amer) Est GFR (Non-Af Amer) POC Glucose (mg/dL) 441 H* > 500 H* > 500 H* (65-110) mg/dL Random Glucose (75-110) mg/dL Calcium (8.6-10.4) mg/dl Phosphorus (2.5-4.5) mg/dL Magnesium (1.6-2.3) mg/dL Total Bilirubin (0.2-1.3) mg/dL AST (17-59) U/L ALT (21-72) U/L Alkaline Phosphatase (38-126) U/L Total Protein (6.3-8.3) g/dL Albumin (3.5-5.0) g/dL Globulin (2.2-3.9) gm/dL Albumin/Globulin Ratio (1.0-2.1) 12/30/17 12/30/17 Range/Units 19:56 16:14 WBC (4.8-10.8) K/uL RBC (4.40-5.90) Mil/uL Hgb (12.0-18.0) g/dL Hct (35.0-51.0) % MCV (80.0-94.0) fL MCH (27.0-31.0) pg MCHC (33.0-37.0) g/dL RDW (11.5-14.5) % Plt Count (130-400) K/uL MPV (7.2-11.7) fL Neut % (Auto) (50.0-75.0) % Lymph % (Auto) (20.0-40.0) % Vilas % (Auto) (0.0-10.0) % Eos % (Auto) (0.0-4.0) % Baso % (Auto) (0.0-2.0) % Neut # (Auto) (1.8-7.0) K/uL Lymph # (Auto) (1.0-4.3) K/uL Vil[place] # (Auto) (0.0-0.8) K/uL Eos # (Auto) (0.0-0.7) K/uL Baso # (Auto) (0.0-0.2) K/uL Neutrophils % (Manual) (50-75) % Lymphocytes % (Manual) (20-40) % Monocytes % (Manual) (0-10) % Eosinophils % (Manual) (0-4) % Toxic Granulation Platelet Estimate (NORMAL) Large Platelets Giant Platelets Polychromasia Hypochromasia (manual) Poikilocytosis (manual Anisocytosis (manual) Ovalocytes Sodium (132-148) mmol/L Potassium (3.6-5.2) mmol/L Chloride (98-107) mmol/L Carbon Dioxide (22-30) mmol/L Anion Gap (10-20) BUN (9-20) mg/dL Creatinine (0.8-1.5) mg/dL Est GFR ( Amer) Est GFR (Non-Af Amer) POC Glucose (mg/dL) > 500 H* > 500 H* (65-110) mg/dL Random Glucose (75-110) mg/dL Calcium (8.6-10.4) mg/dl Phosphorus (2.5-4.5) mg/dL Magnesium (1.6-2.3) mg/dL Total Bilirubin (0.2-1.3) mg/dL AST (17-59) U/L ALT (21-72) U/L Alkaline Phosphatase (38-126) U/L Total Protein (6.3-8.3) g/dL Albumin (3.5-5.0) g/dL Globulin (2.2-3.9) gm/dL Albumin/Globulin Ratio (1.0-2.1) Laboratory Results - last 24 hr 12/30/17 12/30/17 12/30/17 16:14 19:56 19:59 WBC RBC Hgb Hct MCV MCH MCHC RDW Plt Count MPV Neut % (Auto) Lymph % (Auto) Vilas % (Auto) Eos % (Auto) Baso % (Auto) Neut # (Auto) Lymph # (Auto) Vil[place] # (Auto) Eos # (Auto) Baso # (Auto) Neutrophils % (Manual) Lymphocytes % (Manual) Monocytes % (Manual) Eosinophils % (Manual) Toxic Granulation Platelet Estimate Large Platelets Giant Platelets Polychromasia Hypochromasia (manual) Poikilocytosis (manual Anisocytosis (manual) Ovalocytes Sodium Potassium Chloride Carbon Dioxide Anion Gap BUN Creatinine Est GFR ( Amer) Est GFR (Non-Af Amer) POC Glucose (mg/dL) > 500 H* > 500 H* > 500 H* Random Glucose Calcium Phosphorus Magnesium Total Bilirubin AST ALT Alkaline Phosphatase Total Protein Albumin Globulin Albumin/Globulin Ratio 12/30/17 12/30/17 12/31/17 22:05 23:12 00:03 WBC RBC Hgb Hct MCV MCH MCHC RDW Plt Count MPV Neut % (Auto) Lymph % (Auto) Vil[place] % (Auto) Eos % (Auto) Baso % (Auto) Neut # (Auto) Lymph # (Auto) [place] # (Auto) Eos # (Auto) Baso # (Auto) Neutrophils % (Manual) Lymphocytes % (Manual) Monocytes % (Manual) Eosinophils % (Manual) Toxic Granulation Platelet Estimate Large Platelets Giant Platelets Polychromasia Hypochromasia (manual) Poikilocytosis (manual Anisocytosis (manual) Ovalocytes Sodium Potassium Chloride Carbon Dioxide Anion Gap BUN Creatinine Est GFR ( Amer) Est GFR (Non-Af Amer) POC Glucose (mg/dL) > 500 H* 441 H* 457 H* Random Glucose Calcium Phosphorus Magnesium Total Bilirubin AST ALT Alkaline Phosphatase Total Protein Albumin Globulin Albumin/Globulin Ratio 12/31/17 12/31/17 12/31/17 01:04 02:03 02:51 WBC RBC Hgb Hct MCV MCH MCHC RDW Plt Count MPV Neut % (Auto) Lymph % (Auto) Vil[place] % (Auto) Eos % (Auto) Baso % (Auto) Neut # (Auto) Lymph # (Auto) [place] # (Auto) Eos # (Auto) Baso # (Auto) Neutrophils % (Manual) Lymphocytes % (Manual) Monocytes % (Manual) Eosinophils % (Manual) Toxic Granulation Platelet Estimate Large Platelets Giant Platelets Polychromasia Hypochromasia (manual) Poikilocytosis (manual Anisocytosis (manual) Ovalocytes Sodium Potassium Chloride Carbon Dioxide Anion Gap BUN Creatinine Est GFR ( Amer) Est GFR (Non-Af Amer) POC Glucose (mg/dL) 295 H 198 H 175 H Random Glucose Calcium Phosphorus Magnesium Total Bilirubin AST ALT Alkaline Phosphatase Total Protein Albumin Globulin Albumin/Globulin Ratio 12/31/17 12/31/17 12/31/17 04:06 04:59 06:14 WBC RBC Hgb Hct MCV MCH MCHC RDW Plt Count MPV Neut % (Auto) Lymph % (Auto) Vil[place] % (Auto) Eos % (Auto) Baso % (Auto) Neut # (Auto) Lymph # (Auto) [place] # (Auto) Eos # (Auto) Baso # (Auto) Neutrophils % (Manual) Lymphocytes % (Manual) Monocytes % (Manual) Eosinophils % (Manual) Toxic Granulation Platelet Estimate Large Platelets Giant Platelets Polychromasia Hypochromasia (manual) Poikilocytosis (manual Anisocytosis (manual) Ovalocytes Sodium Potassium Chloride Carbon Dioxide Anion Gap BUN Creatinine Est GFR ( Amer) Est GFR (Non-Af Amer) POC Glucose (mg/dL) 108 89 122 H Random Glucose Calcium Phosphorus Magnesium Total Bilirubin AST ALT Alkaline Phosphatase Total Protein Albumin Globulin Albumin/Globulin Ratio 12/31/17 12/31/17 12/31/17 06:17 06:17 07:14 WBC 15.2 H RBC 3.21 L Hgb 9.4 L Hct 29.2 L MCV 91.1 MCH 29.3 MCHC 32.2 L RDW 13.4 Plt Count 344 MPV 9.9 Neut % (Auto) 87.5 H Lymph % (Auto) 4.2 L Vil[place] % (Auto) 6.9 Eos % (Auto) 1.2 Baso % (Auto) 0.2 Neut # (Auto) 13.3 H Lymph # (Auto) 0.6 L [place] # (Auto) 1.0 H Eos # (Auto) 0.2 Baso # (Auto) 0.0 Neutrophils % (Manual) 86 H Lymphocytes % (Manual) 4 L Monocytes % (Manual) 8 Eosinophils % (Manual) 2 Toxic Granulation Present Platelet Estimate Normal Large Platelets Present Giant Platelets Present Polychromasia Slight Hypochromasia (manual) Slight Poikilocytosis (manual Slight Anisocytosis (manual) Slight Ovalocytes Slight Sodium 149 H Potassium 3.3 L Chloride 112 H Carbon Dioxide 25 Anion Gap 15 BUN 43 H Creatinine 1.5 Est GFR ( Amer) 55 Est GFR (Non-Af Amer) 45 POC Glucose (mg/dL) 169 H Random Glucose 74 L Calcium 10.0 Phosphorus 2.1 L Magnesium 1.7 Total Bilirubin 0.4 AST 21 ALT 18 L Alkaline Phosphatase 85 Total Protein 5.8 L Albumin 2.5 L Globulin 3.3 Albumin/Globulin Ratio 0.8 L 12/31/17 12/31/17 08:33 10:42 WBC RBC Hgb Hct MCV MCH MCHC RDW Plt Count MPV Neut % (Auto) Lymph % (Auto) Vil[place] % (Auto) Eos % (Auto) Baso % (Auto) Neut # (Auto) Lymph # (Auto) [place] # (Auto) Eos # (Auto) Baso # (Auto) Neutrophils % (Manual) Lymphocytes % (Manual) Monocytes % (Manual) Eosinophils % (Manual) Toxic Granulation Platelet Estimate Large Platelets Giant Platelets Polychromasia Hypochromasia (manual) Poikilocytosis (manual Anisocytosis (manual) Ovalocytes Sodium Potassium Chloride Carbon Dioxide Anion Gap BUN Creatinine Est GFR ( Amer) Est GFR (Non-Af Amer) POC Glucose (mg/dL) 200 H 346 H Random Glucose Calcium Phosphorus Magnesium Total Bilirubin AST ALT Alkaline Phosphatase Total Protein Albumin Globulin Albumin/Globulin Ratio Fingerstick Blood Sugar Results: 323 Review of Systems - Review of Systems All systems: reviewed and no additional remarkable complaints except (no complaints) Critical Care Progress Note - Nutrition Nutrition: Nutrition Category Date Time Status Liquid Diet [DIET] Diets 12/27/17 Lunch Active Assessment/Plan (1) Perforated abdominal viscus Assessment and plan: 77 year old male with PMHx diabetes, hypertension, hypercholesterolemia admitted with perforated duodenal ulcer status post exploratory laparotomy with Repair of peptic perforation with Colin patch on 12/22/17. POD #7. 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 Patient will need CABG, but if CT surgery refuses, high risk PCI will need to be performed. Tentative plan is for CABG after improvement in patient's clinical picture. Neuro: alert and oriented x 3. Weak, cachectic and deconditioned. Pulm: acute hypoxic respiratory failure secondary to atlectasis with shunting. CT chest showed significant bibasilar atelecatsis, no PE, no PNA. Encouraging incentive spirometer use, OOB to chair and Physical Therapy. Weaned off BIPAP to 40% NRB. With every use of incentive spirometer his oxygen saturation improves. CV: hemodynamically stable. Hem: anemia of chronic disease Renal: urine output wnl. Endo: DM type 2, hyperglycemic on Clinamix. Levemir 15 units q12h and Regular ISS for coverage. GI: severe protein calorie malnutrition, advanced to full liquid diet, with protein supplementation, Prostat tid and ensure clear tid. Poor oral intake, will drop an NGT and start tube feeds, Glucerna. q12h protonix for recent perforated duodenal ulcer. ID: sepsis from duodenal ulcer perforation with peritonitis now improved and stable, continue Azactam 1 g IV piggyback every 12 hourly (12/26/17), vancomycin 1 g once a day daily for gram-positive/enterococcal coverage with intra-abdominal sepsis (12/26/17), Continue IV Flagyl 500 every 8 hourly (). D/C IV fluconazole 100 mg once a day (12/22/17-day 8). ID - Dr. Ly DVT proph - heparin sq GI proph - protonix IV q12h moyer for strict I/O's during acute illness Code status - full code Critical Care Time spent 35 minutes Multi-disciplinary rounds were performed with house staff, nursing, speech therapy, respiratory therapy, pharmacy and nutrition with integrated input from the primary team/attending and other consulting services. The documented time is cumulative and includes review of patient data/exams/labs/chart review and examination of the patient on rounds and throughout the day; time is exclusive of any procedures or teaching time. Current Visit: Yes Status: Acute
--- NOTE | 2017-12-31 16:00 | RAD ---
HISTORY: ngt placement COMPARISON: Portable chest 12/30/2017. FINDINGS: LUNGS: Inspiratory volume appears diminished. Left basilar airspace disease unchanged. Limited atelectasis is suggests at the right base. PLEURA: No interval change in mild left pleural effusion. None is seen the right. No pneumothorax bilaterally. Patient's lower face obscures the medial apices bilaterally. CARDIOVASCULAR: Left central venous line unchanged. Limited CHF pattern in question. OSSEOUS STRUCTURES: No significant abnormalities. VISUALIZED UPPER ABDOMEN: Median or paramedian skin panda again seen as well as surgical tubing in the upper abdomen. OTHER FINDINGS: None. IMPRESSION: Normal change in mild left pleural effusion and left basilar airspace disease. Limited atelectasis favored over infiltrate right base. Minimal CHF pattern questioned.
[2017-12-31] MEDS: Digoxin 500 mcg/2ml (0.5 mg/2ml) Inj IVP SCH (17:59)
--- NOTE | 2017-12-31 20:40 | CP.PCM.PN ---
Subjective - Date & Time of Evaluation Date of Evaluation: 12/31/17 Time of Evaluation: 18:30 - Subjective Subjective: Pt seen and evaluated. On bipap Feels weak Denies any chest pain and shortness of breath. Objective - Vital Signs/Intake and Output Vital Signs (last 24 hours): Temp Pulse Resp BP Pulse Ox 97.7 F 81 16 103/68 98 12/31/17 16:00 12/31/17 19:08 12/31/17 19:08 12/31/17 19:08 12/31/17 19:08 Intake and Output: 12/31/17 01/01/18 18:59 06:59 Intake Total 1510 30 Output Total 400 Balance 1110 30 - Medications Medications: Current Medications Albuterol/Ipratropium (Duoneb 3 Mg/0.5 Mg (3 Ml) Ud) 3 ml INH RQ6 [facility] Last Admin: 12/31/17 19:35 Dose: 3 ml Aspirin (Aspirin) 325 mg PO DAILY [facility] Last Admin: 12/31/17 09:59 Dose: 325 mg Digoxin (Lanoxin) 0.25 mg IVP DAILY@1800 [facility] Last Admin: 12/31/17 17:59 Dose: 0.25 mg Heparin Sodium (Porcine) (Heparin) 5,000 units SC Q12 [facility] Last Admin: 12/31/17 09:59 Dose: 5,000 units Metronidazole (Flagyl) 500 mg in 100 mls @ 100 mls/hr IVPB Q8H [facility] PRN Reason: Protocol Last Admin: 12/31/17 18:00 Dose: 100 mls/hr Aztreonam 1 gm/ Sodium (Chloride) 100 mls @ 100 mls/hr IVPB Q12H [facility] PRN Reason: Protocol Last Admin: 12/31/17 10:39 Dose: 100 mls/hr Insulin Detemir (Levemir) 15 unit SC Q12 [facility] Last Admin: 12/31/17 09:58 Dose: 15 unit Insulin Human Regular (Novolin R) 0 unit SC Q4H [facility] PRN Reason: Protocol Last Admin: 12/31/17 16:19 Dose: 6 unit Metoprolol Tartrate (Lopressor) 12.5 mg PO BID [facility] Last Admin: 12/31/17 17:59 Dose: 12.5 mg Morphine Sulfate (Morphine) 2 mg IVP Q4 PRN PRN Reason: Pain, severe (8-10) Last Admin: 12/29/17 07:34 Dose: 2 mg Ondansetron HCl (Zofran Inj) 4 mg IVP Q6H PRN PRN Reason: Nausea/Vomiting Oxycodone HCl (Oxycodone Immediate Release Tab) 5 mg PO Q6 PRN PRN Reason: Pain, moderate (4-7) Pantoprazole Sodium (Protonix Inj) 40 mg IVP Q12H [facility] Last Admin: 12/31/17 09:59 Dose: 40 mg Rosuvastatin Calcium (Crestor) 20 mg PO HS [facility] Last Admin: 12/30/17 20:59 Dose: 20 mg - Labs Labs: 12/31/17 06:17 12/31/17 06:17 PT 12.5 SECONDS (9.7-12.2) H 12/22/17 16:18 INR 1.1 12/22/17 16:18 APTT 48 SECONDS (21-34) H D 12/28/17 05:53 - Constitutional Appears: Other (appears ill) - Eye Exam Eye Exam: EOMI, Normal appearance - ENT Exam ENT Exam: Mucous Membranes Moist - Neck Exam Neck Exam: Normal Inspection - Respiratory Exam Respiratory Exam: Decreased Breath Sounds - Cardiovascular Exam Cardiovascular Exam: REGULAR RHYTHM, +S1, +S2. absent: Murmur - GI/Abdominal Exam GI & Abdominal Exam: Tenderness - Extremities Exam Extremities Exam: absent: Pedal Edema - Neurological Exam Additional comments: drowsy - Skin Skin Exam: Dry, Intact Assessment and Plan - Assessment and Plan (Free Text) Assessment: 1. 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 s/p NSTEMI 3.S/P Abdominal surgery 4. Respiratory insufficiency Plan: 1. Patient at present is not a candidate for CABG or PCI due to his general condition. 2. Continue Aspirin, statin and subcu Heparin. 3. Add beta blockers if pt can tolerate.
--- NOTE | 2017-12-31 23:35 | CP.PCM.PN ---
Subjective - Date & Time of Evaluation Date of Evaluation: 12/31/17 Time of Evaluation: 17:00 - Subjective Subjective: Pt is seen and examined today during rounds Objective - Vital Signs/Intake and Output Vital Signs (last 24 hours): Temp Pulse Resp BP Pulse Ox 97.7 F 81 16 103/68 98 12/31/17 16:00 12/31/17 19:08 12/31/17 19:08 12/31/17 19:08 12/31/17 19:08 Intake and Output: 12/31/17 01/01/18 18:59 06:59 Intake Total 1510 30 Output Total 400 Balance 1110 30 - Medications Medications: Current Medications Albuterol/Ipratropium (Duoneb 3 Mg/0.5 Mg (3 Ml) Ud) 3 ml INH RQ6 [facility] Last Admin: 12/31/17 19:35 Dose: 3 ml Aspirin (Aspirin) 325 mg PO DAILY [facility] Last Admin: 12/31/17 09:59 Dose: 325 mg Digoxin (Lanoxin) 0.25 mg IVP DAILY@1800 [facility] Last Admin: 12/31/17 17:59 Dose: 0.25 mg Metronidazole (Flagyl) 500 mg in 100 mls @ 100 mls/hr IVPB Q8H [facility] PRN Reason: Protocol Last Admin: 12/31/17 18:00 Dose: 100 mls/hr Aztreonam 1 gm/ Sodium (Chloride) 100 mls @ 100 mls/hr IVPB Q12H [facility] PRN Reason: Protocol Last Admin: 12/31/17 10:39 Dose: 100 mls/hr Insulin Detemir (Levemir) 15 unit SC Q12 [facility] Last Admin: 12/31/17 20:59 Dose: 15 unit Insulin Human Regular (Novolin R) 0 unit SC Q4H [facility] PRN Reason: Protocol Last Admin: 12/31/17 20:55 Dose: 2 unit Metoprolol Tartrate (Lopressor) 12.5 mg PO BID [facility] Last Admin: 12/31/17 17:59 Dose: 12.5 mg Morphine Sulfate (Morphine) 2 mg IVP Q4 PRN PRN Reason: Pain, severe (8-10) Last Admin: 12/29/17 07:34 Dose: 2 mg Ondansetron HCl (Zofran Inj) 4 mg IVP Q6H PRN PRN Reason: Nausea/Vomiting Oxycodone HCl (Oxycodone Immediate Release Tab) 5 mg PO Q6 PRN PRN Reason: Pain, moderate (4-7) Pantoprazole Sodium (Protonix Inj) 40 mg IVP Q12H [facility] Last Admin: 12/31/17 21:14 Dose: 40 mg Rosuvastatin Calcium (Crestor) 20 mg PO HS [facility] Last Admin: 12/31/17 20:59 Dose: 20 mg - Labs Labs: 12/31/17 06:17 12/31/17 06:17 PT 12.5 SECONDS (9.7-12.2) H 12/22/17 16:18 INR 1.1 12/22/17 16:18 APTT 48 SECONDS (21-34) H D 12/28/17 05:53 Assessment and Plan (1) Perforated abdominal viscus Status: Acute (2) Diabetes mellitus Status: Acute (3) GERD (gastroesophageal reflux disease) Status: Acute (4) Acute non-ST elevation myocardial infarction (NSTEMI) Status: Acute
[2018-01-01] MEDS: (Novolin R) Insulin Human Regular 100 units/ml vial SC SCH ×7 (01:00→23:37)
[2018-01-01] MEDS: metroNIDAZOLE IV 500 mg/100 ml 500 MG/100 ML BAG IVPB SCH ×3 (02:00→18:11)
[2018-01-01] MEDS: Albuterol-Ipratrop 3 mg / 0.5 (3 ml) UD INH SCH ×4 (02:27→20:32)
[2018-01-01 06:26] LABS: BASO % 0.3 % (0.0-2.0); EOS # 0.3 K/uL (0.0-0.7); EOS % 2.3 % (0.0-4.0); HEMOGLOBIN 8.8 g/dL (12.0-18.0); LYMPH # 0.8 K/uL (1.0-4.3); LYMPH % 5.9 % (20.0-40.0); MEAN CORPUSCULAR HEMOGLOBIN 29.3 pg (27.0-31.0); MEAN CORPUSCULAR HGB CONC 31.8 g/dL (33.0-37.0); MEAN PLATELET VOLUME 10.1 fL (7.2-11.7); MONO # 0.7 K/uL (0.0-0.8); MONO % 5.1 % (0.0-10.0); NEUT # 11.7 K/uL (1.8-7.0); NEUT % 86.4 % (50.0-75.0); PLATELET COUNT 334 K/uL (130-400); RBC 3.02 Mil/uL (4.40-5.90); RED CELL DISTRIBUTION WIDTH 13.6 % (11.5-14.5); WHITE BLOOD COUNT 13.5 K/uL (4.8-10.8)
[2018-01-01 06:41] LABS: ALB/GLOB RATIO 0.7 (1.0-2.1); ALBUMIN 2.3 g/dL (3.5-5.0); CALCIUM 9.8 mg/dl (8.6-10.4)
--- NOTE | 2018-01-01 07:35 | CP.PCM.PN ---
Subjective - Date & Time of Evaluation Date of Evaluation: 01/01/18 Time of Evaluation: 07:34 - Subjective Subjective: General surgery progress note for Dr. Robel Tejada, PGY-1 Pt S & E at bedside. Pt sitting up in chair on venti mask. Continues to c/o of ab pain, is not taking liquids- NGT placed for enternal feeds. Denies N & V, F & C, SOB, CP. Constantino with 40cc serous output/12H Objective - Vital Signs/Intake and Output Vital Signs (last 24 hours): Temp Pulse Resp BP Pulse Ox 98.8 F 91 H 19 119/63 99 01/01/18 04:00 01/01/18 07:08 01/01/18 07:08 01/01/18 07:08 01/01/18 07:08 Intake and Output: 01/01/18 01/01/18 06:59 18:59 Intake Total 560 30 Output Total 790 Balance -230 30 - Medications Medications: Current Medications Albuterol/Ipratropium (Duoneb 3 Mg/0.5 Mg (3 Ml) Ud) 3 ml INH RQ6 [facility] Last Admin: 01/01/18 02:27 Dose: Not Given Aspirin (Aspirin) 325 mg PO DAILY [facility] Last Admin: 12/31/17 09:59 Dose: 325 mg Digoxin (Lanoxin) 0.25 mg IVP DAILY@1800 [facility] Last Admin: 12/31/17 17:59 Dose: 0.25 mg Metronidazole (Flagyl) 500 mg in 100 mls @ 100 mls/hr IVPB Q8H [facility] PRN Reason: Protocol Last Admin: 01/01/18 02:00 Dose: 100 mls/hr Aztreonam 1 gm/ Sodium (Chloride) 100 mls @ 100 mls/hr IVPB Q12H [facility] PRN Reason: Protocol Last Admin: 12/31/17 22:00 Dose: 100 mls/hr Magnesium Sulfate/Dextrose (Magnesium Sulfate 1 Gm/100 Ml D5w) 1 gm in 100 mls @ 100 mls/hr IVPB Q1H [facility] Stop: 01/01/18 09:14 Insulin Detemir (Levemir) 15 unit SC Q12 [facility] Last Admin: 12/31/17 20:59 Dose: 15 unit Insulin Human Regular (Novolin R) 0 unit SC Q4H [facility] PRN Reason: Protocol Last Admin: 01/01/18 03:16 Dose: Not Given Metoprolol Tartrate (Lopressor) 12.5 mg PO BID [facility] Last Admin: 12/31/17 17:59 Dose: 12.5 mg Morphine Sulfate (Morphine) 2 mg IVP Q4 PRN PRN Reason: Pain, severe (8-10) Last Admin: 12/29/17 07:34 Dose: 2 mg Ondansetron HCl (Zofran Inj) 4 mg IVP Q6H PRN PRN Reason: Nausea/Vomiting Oxycodone HCl (Oxycodone Immediate Release Tab) 5 mg PO Q6 PRN PRN Reason: Pain, moderate (4-7) Pantoprazole Sodium (Protonix Inj) 40 mg IVP Q12H [facility] Last Admin: 12/31/17 21:14 Dose: 40 mg Rosuvastatin Calcium (Crestor) 20 mg PO HS [facility] Last Admin: 12/31/17 20:59 Dose: 20 mg - Labs Labs: 01/01/18 06:01 01/01/18 06:01 PT 12.5 SECONDS (9.7-12.2) H 12/22/17 16:18 INR 1.1 12/22/17 16:18 APTT 48 SECONDS (21-34) H D 12/28/17 05:53 - Constitutional Appears: Non-toxic, No Acute Distress - Head Exam Head Exam: ATRAUMATIC, NORMAL INSPECTION, NORMOCEPHALIC - Eye Exam Eye Exam: EOMI, Normal appearance - ENT Exam ENT Exam: Mucous Membranes Moist, Normal Exam - Neck Exam Neck Exam: Full ROM - Respiratory Exam Respiratory Exam: NORMAL BREATHING PATTERN - Cardiovascular Exam Cardiovascular Exam: REGULAR RHYTHM, +S1, +S2 - GI/Abdominal Exam GI & Abdominal Exam: Soft, Tenderness (Along midline incision). absent: Distended, Firm, Guarding, Rigid, Diminished Bowel Sounds Additional comments: Some induration at distal aspect of midline incision, no fluctuance or drainage noted - Extremities Exam Extremities Exam: Normal Inspection - Neurological Exam Neurological Exam: Alert, Awake, CN II-XII Intact, Oriented x3 - Psychiatric Exam Psychiatric exam: Normal Affect, Normal Mood - Skin Skin Exam: Dry, Intact, Normal Color, Warm Assessment and Plan - Assessment and Plan (Free Text) Assessment: 77M POD#10 s/p ex-lap & Colin patch for duodenal perforation, post-op NSTEMI and pneumonia Plan: NGT w/enteral feeds OOBTC PT Pain control PRN Encourage IS use Further mgmt as per primary team Will SHERLY attending Mallory, PGY-1
[2018-01-01 08:09] LABS: EOSINOPHIL 1 % (0-4); LYMPHOCYTE 4 % (20-40); MONOCYTE 1 % (0-10); NEUTROPHIL 94 % (50-75); PLATELET ESTIMATE NORMAL (NORMAL); TOTAL CELLS COUNTED 100
[2018-01-01 08:10] LABS: HYPOCHROMIC SLIGHT; POLYCHROMIC SLIGHT; TARGET CELLS SLIGHT
--- NOTE | 2018-01-01 08:36 | CP.CCUPN ---
CCU Subjective - Physician Review Subjective (Free Text): 01/01/18 08:31 Patient seen and examined. Patient remains with some abdominal pain from his surgery. He states that his breathing is so-so. CCU Objective - Vital Signs / Intake & Output Vital Signs (Last 4 hours): Vital Signs Pulse Resp BP Pulse Ox 01/01/18 07:08 91 H 19 119/63 99 01/01/18 07:00 99 H 18 99 01/01/18 06:08 98 H 20 127/82 98 01/01/18 06:00 100 H 18 97 01/01/18 05:50 112 H 18 126/83 98 01/01/18 05:08 84 17 107/65 97 01/01/18 05:00 86 17 98 Intake and Output (Last 8hrs): Intake & Output 12/31/17 01/01/18 01/01/18 22:59 06:59 14:59 Intake Total 420 340 30 Output Total 400 790 Balance 20 -450 30 Intake: Intake, IV Amount 200 100 0 Left Forearm 0 Left Forearm #2 0 Left Proximal Port 200 100 Internal Jugular Right Forearm 0 Oral 0 0 Tube Feeding 220 240 30 Output: Drainage 40 Right Lower Abdomen 40 Urine 400 750 Urine, Voided 400 750 - Physical Exam Head: Positive for: Atraumatic, Normocephalic Pupils: Positive for: PERRL Extroacular Muscles: Positive for: EOMI Mouth: Positive for: Moist Mucous Membranes Nose (External): Positive for: Other (NGT in place) Neck: Positive for: Other (left IJ TLC) Respiratory/Chest: Positive for: Clear to Auscultation, Decreased Breath Sounds (at bases). Negative for: Wheezes, Rales, Rhonchi Cardiovascular: Positive for: Normal S1, S2, Irregular Rhythm, Tachycardic Abdomen: Positive for: Tenderness, Guarding, Other (Abdominal dressing clean,dry ,intact) Upper Extremity: Positive for: Normal Inspection Lower Extremity: Positive for: Normal Inspection Neurological: Positive for: GCS=15 Skin: Positive for: Warm, Dry Psychiatric: Positive for: Alert, Oriented x 3 - Medications Active Medications: Active Medications Generic Name Dose Route Start Last Admin Trade Name Freq PRN Reason Stop Dose Admin Albuterol/Ipratropium 3 ml 12/28/17 14:00 01/01/18 02:27 Duoneb 3 Mg/0.5 Mg (3 Ml) Ud INH Not Given RQ6 [facility] Aspirin 325 mg 12/29/17 10:00 12/31/17 09:59 Aspirin PO 325 mg DAILY [facility] Administration Digoxin 0.25 mg 12/27/17 18:00 12/31/17 17:59 Lanoxin IVP 0.25 mg DAILY@1800 [facility] Administration Metronidazole 500 mg in 100 mls @ 100 mls/hr 12/23/17 03:00 01/01/18 02:00 Flagyl IVPB 100 mls/hr Q8H [facility] Administration Protocol Aztreonam 1 gm/ Sodium 100 mls @ 100 mls/hr 12/27/17 11:00 12/31/17 22:00 Chloride IVPB 100 mls/hr Q12H [facility] Administration Protocol Magnesium Sulfate/Dextrose 1 gm in 100 mls @ 100 mls/hr 01/01/18 07:15 Magnesium Sulfate 1 Gm/100 Ml D5w IVPB 01/01/18 09:14 Q1H [facility] Insulin Detemir 15 unit 12/31/17 10:00 12/31/17 20:59 Levemir SC 15 unit Q12 [facility] Administration Insulin Human Regular 0 unit 12/31/17 12:00 01/01/18 03:16 Novolin R SC Not Given Q4H [facility] Protocol Metoprolol Tartrate 12.5 mg 12/29/17 11:00 12/31/17 17:59 Lopressor PO 12.5 mg BID [facility] Administration Morphine Sulfate 2 mg 12/25/17 07:43 12/29/17 07:34 Morphine IVP 2 mg Q4 PRN Administration Pain, severe (8-10) Ondansetron HCl 4 mg 12/22/17 16:46 Zofran Inj IVP Q6H PRN Nausea/Vomiting Oxycodone HCl 5 mg 12/30/17 19:24 Oxycodone Immediate Release Tab PO Q6 PRN Pain, moderate (4-7) Pantoprazole Sodium 40 mg 12/22/17 22:15 12/31/17 21:14 Protonix Inj IVP 40 mg Q12H [facility] Administration Rosuvastatin Calcium 20 mg 12/28/17 22:00 12/31/17 20:59 Crestor PO 20 mg HS [facility] Administration - Patient Studies Lab Studies: Microbiology Studies 12/26/17 11:30 Blood Culture - Final Blood NO GROWTH AFTER 5 DAYS Gram Stain - Final TEST NOT PERFORMED 12/26/17 11:00 Blood Culture - Final Blood NO GROWTH AFTER 5 DAYS Gram Stain - Final TEST NOT PERFORMED Lab Studies 01/01/18 01/01/18 01/01/18 Range/Units 06:01 06:01 04:52 WBC 13.5 H (4.8-10.8) K/uL RBC 3.02 L (4.40-5.90) Mil/uL Hgb 8.8 L (12.0-18.0) g/dL Hct 27.8 L (35.0-51.0) % MCV 92.0 (80.0-94.0) fL MCH 29.3 (27.0-31.0) pg MCHC 31.8 L (33.0-37.0) g/dL RDW 13.6 (11.5-14.5) % Plt Count 334 (130-400) K/uL MPV 10.1 (7.2-11.7) fL Neut % (Auto) 86.4 H (50.0-75.0) % Lymph % (Auto) 5.9 L (20.0-40.0) % Stephens % (Auto) 5.1 (0.0-10.0) % Eos % (Auto) 2.3 (0.0-4.0) % Baso % (Auto) 0.3 (0.0-2.0) % Neut # (Auto) 11.7 H (1.8-7.0) K/uL Lymph # (Auto) 0.8 L (1.0-4.3) K/uL Stephens # (Auto) 0.7 (0.0-0.8) K/uL Eos # (Auto) 0.3 (0.0-0.7) K/uL Baso # (Auto) 0.0 (0.0-0.2) K/uL Neutrophils % (Manual) 94 H (50-75) % Lymphocytes % (Manual) 4 L (20-40) % Monocytes % (Manual) 1 (0-10) % Eosinophils % (Manual) 1 (0-4) % Toxic Granulation Platelet Estimate Normal (NORMAL) Large Platelets Giant Platelets Polychromasia Slight Hypochromasia (manual) Slight Poikilocytosis (manual Anisocytosis (manual) Target Cells Slight Ovalocytes Sodium 150 H (132-148) mmol/L Potassium 3.6 (3.6-5.2) mmol/L Chloride 115 H (98-107) mmol/L Carbon Dioxide 25 (22-30) mmol/L Anion Gap 14 (10-20) BUN 42 H (9-20) mg/dL Creatinine 1.4 (0.8-1.5) mg/dL Est GFR ( Amer) 59 Est GFR (Non-Af Amer) 49 POC Glucose (mg/dL) 150 H (65-110) mg/dL Random Glucose 114 H (75-110) mg/dL Calcium 9.8 (8.6-10.4) mg/dl Phosphorus 2.3 L (2.5-4.5) mg/dL Magnesium 1.5 L (1.6-2.3) mg/dL Total Bilirubin 0.3 (0.2-1.3) mg/dL AST 31 (17-59) U/L ALT 22 (21-72) U/L Alkaline Phosphatase 89 (38-126) U/L Total Protein 5.4 L (6.3-8.3) g/dL Albumin 2.3 L (3.5-5.0) g/dL Globulin 3.1 (2.2-3.9) gm/dL Albumin/Globulin Ratio 0.7 L (1.0-2.1) 01/01/18 12/31/17 12/31/17 Range/Units 03:15 23:51 19:58 WBC (4.8-10.8) K/uL RBC (4.40-5.90) Mil/uL Hgb (12.0-18.0) g/dL Hct (35.0-51.0) % MCV (80.0-94.0) fL MCH (27.0-31.0) pg MCHC (33.0-37.0) g/dL RDW (11.5-14.5) % Plt Count (130-400) K/uL MPV (7.2-11.7) fL Neut % (Auto) (50.0-75.0) % Lymph % (Auto) (20.0-40.0) % Stephens % (Auto) (0.0-10.0) % Eos % (Auto) (0.0-4.0) % Baso % (Auto) (0.0-2.0) % Neut # (Auto) (1.8-7.0) K/uL Lymph # (Auto) (1.0-4.3) K/uL Stephens # (Auto) (0.0-0.8) K/uL Eos # (Auto) (0.0-0.7) K/uL Baso # (Auto) (0.0-0.2) K/uL Neutrophils % (Manual) (50-75) % Lymphocytes % (Manual) (20-40) % Monocytes % (Manual) (0-10) % Eosinophils % (Manual) (0-4) % Toxic Granulation Platelet Estimate (NORMAL) Large Platelets Giant Platelets Polychromasia Hypochromasia (manual) Poikilocytosis (manual Anisocytosis (manual) Target Cells Ovalocytes Sodium (132-148) mmol/L Potassium (3.6-5.2) mmol/L Chloride (98-107) mmol/L Carbon Dioxide (22-30) mmol/L Anion Gap (10-20) BUN (9-20) mg/dL Creatinine (0.8-1.5) mg/dL Est GFR ( Amer) Est GFR (Non-Af Amer) POC Glucose (mg/dL) 181 H 197 H 198 H (65-110) mg/dL Random Glucose (75-110) mg/dL Calcium (8.6-10.4) mg/dl Phosphorus (2.5-4.5) mg/dL Magnesium (1.6-2.3) mg/dL Total Bilirubin (0.2-1.3) mg/dL AST (17-59) U/L ALT (21-72) U/L Alkaline Phosphatase (38-126) U/L Total Protein (6.3-8.3) g/dL Albumin (3.5-5.0) g/dL Globulin (2.2-3.9) gm/dL Albumin/Globulin Ratio (1.0-2.1) 12/31/17 12/31/17 12/31/17 Range/Units 16:01 11:51 10:42 WBC (4.8-10.8) K/uL RBC (4.40-5.90) Mil/uL Hgb (12.0-18.0) g/dL Hct (35.0-51.0) % MCV (80.0-94.0) fL MCH (27.0-31.0) pg MCHC (33.0-37.0) g/dL RDW (11.5-14.5) % Plt Count (130-400) K/uL MPV (7.2-11.7) fL Neut % (Auto) (50.0-75.0) % Lymph % (Auto) (20.0-40.0) % Stephens % (Auto) (0.0-10.0) % Eos % (Auto) (0.0-4.0) % Baso % (Auto) (0.0-2.0) % Neut # (Auto) (1.8-7.0) K/uL Lymph # (Auto) (1.0-4.3) K/uL Stephens # (Auto) (0.0-0.8) K/uL Eos # (Auto) (0.0-0.7) K/uL Baso # (Auto) (0.0-0.2) K/uL Neutrophils % (Manual) (50-75) % Lymphocytes % (Manual) (20-40) % Monocytes % (Manual) (0-10) % Eosinophils % (Manual) (0-4) % Toxic Granulation Platelet Estimate (NORMAL) Large Platelets Giant Platelets Polychromasia Hypochromasia (manual) Poikilocytosis (manual Anisocytosis (manual) Target Cells Ovalocytes Sodium (132-148) mmol/L Potassium (3.6-5.2) mmol/L Chloride (98-107) mmol/L Carbon Dioxide (22-30) mmol/L Anion Gap (10-20) BUN (9-20) mg/dL Creatinine (0.8-1.5) mg/dL Est GFR ( Amer) Est GFR (Non-Af Amer) POC Glucose (mg/dL) 277 H 323 H 346 H (65-110) mg/dL Random Glucose (75-110) mg/dL Calcium (8.6-10.4) mg/dl Phosphorus (2.5-4.5) mg/dL Magnesium (1.6-2.3) mg/dL Total Bilirubin (0.2-1.3) mg/dL AST (17-59) U/L ALT (21-72) U/L Alkaline Phosphatase (38-126) U/L Total Protein (6.3-8.3) g/dL Albumin (3.5-5.0) g/dL Globulin (2.2-3.9) gm/dL Albumin/Globulin Ratio (1.0-2.1) 12/31/17 12/31/17 Range/Units 08:33 06:17 WBC (4.8-10.8) K/uL RBC (4.40-5.90) Mil/uL Hgb (12.0-18.0) g/dL Hct (35.0-51.0) % MCV (80.0-94.0) fL MCH (27.0-31.0) pg MCHC (33.0-37.0) g/dL RDW (11.5-14.5) % Plt Count (130-400) K/uL MPV (7.2-11.7) fL Neut % (Auto) (50.0-75.0) % Lymph % (Auto) (20.0-40.0) % Stephens % (Auto) (0.0-10.0) % Eos % (Auto) (0.0-4.0) % Baso % (Auto) (0.0-2.0) % Neut # (Auto) (1.8-7.0) K/uL Lymph # (Auto) (1.0-4.3) K/uL Stephens # (Auto) (0.0-0.8) K/uL Eos # (Auto) (0.0-0.7) K/uL Baso # (Auto) (0.0-0.2) K/uL Neutrophils % (Manual) 86 H (50-75) % Lymphocytes % (Manual) 4 L (20-40) % Monocytes % (Manual) 8 (0-10) % Eosinophils % (Manual) 2 (0-4) % Toxic Granulation Present Platelet Estimate Normal (NORMAL) Large Platelets Present Giant Platelets Present Polychromasia Slight Hypochromasia (manual) Slight Poikilocytosis (manual Slight Anisocytosis (manual) Slight Target Cells Ovalocytes Slight Sodium (132-148) mmol/L Potassium (3.6-5.2) mmol/L Chloride (98-107) mmol/L Carbon Dioxide (22-30) mmol/L Anion Gap (10-20) BUN (9-20) mg/dL Creatinine (0.8-1.5) mg/dL Est GFR ( Amer) Est GFR (Non-Af Amer) POC Glucose (mg/dL) 200 H (65-110) mg/dL Random Glucose (75-110) mg/dL Calcium (8.6-10.4) mg/dl Phosphorus (2.5-4.5) mg/dL Magnesium (1.6-2.3) mg/dL Total Bilirubin (0.2-1.3) mg/dL AST (17-59) U/L ALT (21-72) U/L Alkaline Phosphatase (38-126) U/L Total Protein (6.3-8.3) g/dL Albumin (3.5-5.0) g/dL Globulin (2.2-3.9) gm/dL Albumin/Globulin Ratio (1.0-2.1) Laboratory Results - last 24 hr 12/31/17 12/31/17 12/31/17 06:17 08:33 10:42 WBC RBC Hgb Hct MCV MCH MCHC RDW Plt Count MPV Neut % (Auto) Lymph % (Auto) Stephens % (Auto) Eos % (Auto) Baso % (Auto) Neut # (Auto) Lymph # (Auto) Stephens # (Auto) Eos # (Auto) Baso # (Auto) Neutrophils % (Manual) 86 H Lymphocytes % (Manual) 4 L Monocytes % (Manual) 8 Eosinophils % (Manual) 2 Toxic Granulation Present Platelet Estimate Normal Large Platelets Present Giant Platelets Present Polychromasia Slight Hypochromasia (manual) Slight Poikilocytosis (manual Slight Anisocytosis (manual) Slight Target Cells Ovalocytes Slight Sodium Potassium Chloride Carbon Dioxide Anion Gap BUN Creatinine Est GFR ( Amer) Est GFR (Non-Af Amer) POC Glucose (mg/dL) 200 H 346 H Random Glucose Calcium Phosphorus Magnesium Total Bilirubin AST ALT Alkaline Phosphatase Total Protein Albumin Globulin Albumin/Globulin Ratio 12/31/17 12/31/17 12/31/17 11:51 16:01 19:58 WBC RBC Hgb Hct MCV MCH MCHC RDW Plt Count MPV Neut % (Auto) Lymph % (Auto) Stephens % (Auto) Eos % (Auto) Baso % (Auto) Neut # (Auto) Lymph # (Auto) Stephens # (Auto) Eos # (Auto) Baso # (Auto) Neutrophils % (Manual) Lymphocytes % (Manual) Monocytes % (Manual) Eosinophils % (Manual) Toxic Granulation Platelet Estimate Large Platelets Giant Platelets Polychromasia Hypochromasia (manual) Poikilocytosis (manual Anisocytosis (manual) Target Cells Ovalocytes Sodium Potassium Chloride Carbon Dioxide Anion Gap BUN Creatinine Est GFR ( Amer) Est GFR (Non-Af Amer) POC Glucose (mg/dL) 323 H 277 H 198 H Random Glucose Calcium Phosphorus Magnesium Total Bilirubin AST ALT Alkaline Phosphatase Total Protein Albumin Globulin Albumin/Globulin Ratio 12/31/17 01/01/18 01/01/18 23:51 03:15 04:52 WBC RBC Hgb Hct MCV MCH MCHC RDW Plt Count MPV Neut % (Auto) Lymph % (Auto) Stephens % (Auto) Eos % (Auto) Baso % (Auto) Neut # (Auto) Lymph # (Auto) Stephens # (Auto) Eos # (Auto) Baso # (Auto) Neutrophils % (Manual) Lymphocytes % (Manual) Monocytes % (Manual) Eosinophils % (Manual) Toxic Granulation Platelet Estimate Large Platelets Giant Platelets Polychromasia Hypochromasia (manual) Poikilocytosis (manual Anisocytosis (manual) Target Cells Ovalocytes Sodium Potassium Chloride Carbon Dioxide Anion Gap BUN Creatinine Est GFR ( Amer) Est GFR (Non-Af Amer) POC Glucose (mg/dL) 197 H 181 H 150 H Random Glucose Calcium Phosphorus Magnesium Total Bilirubin AST ALT Alkaline Phosphatase Total Protein Albumin Globulin Albumin/Globulin Ratio 01/01/18 01/01/18 06:01 06:01 WBC 13.5 H RBC 3.02 L Hgb 8.8 L Hct 27.8 L MCV 92.0 MCH 29.3 MCHC 31.8 L RDW 13.6 Plt Count 334 MPV 10.1 Neut % (Auto) 86.4 H Lymph % (Auto) 5.9 L Stephens % (Auto) 5.1 Eos % (Auto) 2.3 Baso % (Auto) 0.3 Neut # (Auto) 11.7 H Lymph # (Auto) 0.8 L Stephens # (Auto) 0.7 Eos # (Auto) 0.3 Baso # (Auto) 0.0 Neutrophils % (Manual) 94 H Lymphocytes % (Manual) 4 L Monocytes % (Manual) 1 Eosinophils % (Manual) 1 Toxic Granulation Platelet Estimate Normal Large Platelets Giant Platelets Polychromasia Slight Hypochromasia (manual) Slight Poikilocytosis (manual Anisocytosis (manual) Target Cells Slight Ovalocytes Sodium 150 H Potassium 3.6 Chloride 115 H Carbon Dioxide 25 Anion Gap 14 BUN 42 H Creatinine 1.4 Est GFR ( Amer) 59 Est GFR (Non-Af Amer) 49 POC Glucose (mg/dL) Random Glucose 114 H Calcium 9.8 Phosphorus 2.3 L Magnesium 1.5 L Total Bilirubin 0.3 AST 31 ALT 22 Alkaline Phosphatase 89 Total Protein 5.4 L Albumin 2.3 L Globulin 3.1 Albumin/Globulin Ratio 0.7 L Fingerstick Blood Sugar Results: 197 Critical Care Progress Note - Nutrition Nutrition: Nutrition Category Date Time Status Liquid Diet [DIET] Diets 18 Lunch Active Assessment/Plan - Assessment and Plan (Free Text) Assessment: This is a 77 year old male with PMHx diabetes, hypertension, hypercholesterolemia admitted with perforated duodenal ulcer status post exploratory laparotomy with Repair of peptic perforation with Colin patch on 18. POD #10. Patient is s/p cardiac cath which showed multi vessel disease. Patient will need CABG, but if CT surgery refuses, high risk PCI will need to be performed. Tentative plan is for CABG after improvement in patient's clinical picture. 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 Duoneb Q6H [facility] Incentive spirometer GI Assessment: s/p Duodenal perforation, failure to thrive Liquid Diet per surgery--encouraged eating Tube feeds Protonix 40 mg IV Q12 Supplements: Ensure Clear 2 with every meal along with Prostat Endocrine Assessment: DM 2 Accuchecks ACHS Novolog sliding scale ACHS Levemir 15 units SC Q12H Infectious Disease Assessment: Purulent drainage from duodenal perforation (POD #10) Azactam 1 gm IV Q12H Flagyl 500 mg IV Q8H ID on consult Prophylaxis Protonix 40 mg IV Q12 Heparin SC Q12 Discuss[address] Chavira
[2018-01-01] MEDS: Magnesium Sulfate 1 gm in D5W 1 GM/100 ML BAG IVPB SCH (08:42)
[2018-01-01] MEDS: Insulin Detemir 100 units/ml Vial (Levemir) SC SCH ×2 (10:16→21:28)
[2018-01-01] MEDS: Aztreonam 1 GM in Sodium Chloride 0.9% 100 ML IVPB SCH ×2 (10:21→22:29)
[2018-01-01] MEDS: Digoxin 500 mcg/2ml (0.5 mg/2ml) Inj IVP SCH (18:11)
--- NOTE | 2018-01-01 18:41 | CP.PCM.PN ---
Subjective - Date & Time of Evaluation Date of Evaluation: 01/01/18 Time of Evaluation: 18:41 - Subjective Subjective: CHIEF COMPLAINTS TODAY : AFEBRILE C/O ABDOMINAL DISCMFORT. +VE NGT -FEEDINGS. REFUSES TO EAT. 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 ROS. HEENT : N. Resp : No cough, wheezing ,pleuritic CP ,or hemoptysis Cardio : No anginal CP, PND, orthopnea, palpitation GI : +VE ABDOMINAL PAIN, NO n/v ,diarrhea or GI bleeding . [employer]TENA[employer]CE [employer] : No headache, vertigo, focal deficit. Musculoskel : No joint swelling , Derm : No rash Psych : Normal affect. Ext : No swelling ,calf pain PE. Pt. awake in no distress. V.S As noted in the chart Head ,ear nose,throat and eyes : Normal. Neck : Supple with normal carotids. Lungs: DIMINISHED BS AT BASIS. Heart : S1 & S2 normal with S4. No murmur. Abd : SOFT, MILD TENDERNESS POSTOPERATIVE SITE Midline incision with panda in place, no erythema or drainage noted. DRESSING DRY ,CLEAN. Neuro : Moves all ext. with no localized deficit. Ext : No edema with intact pulses.Non tender calves Derm : No rashes or decubitus ulcer. LABS/RADIOLOGY: REVIEWED WBC13.5 H/H 8.8/27.8 CREAT 1.4 NA150 BLOOD CULTURES 12/26/17 -VE GROWTH TO DATE. chest x-ray 12/27/17-no active disease. Objective - Vital Signs/Intake and Output Vital Signs (last 24 hours): Temp Pulse Resp BP Pulse Ox 98.1 F 88 18 134/68 98 01/01/18 16:00 01/01/18 18:08 01/01/18 18:08 01/01/18 18:08 01/01/18 18:08 Intake and Output: 01/01/18 01/01/18 06:59 18:59 Intake Total 560 880 Output Total 790 450 Balance -230 430 - Medications Medications: Current Medications Albuterol/Ipratropium (Duoneb 3 Mg/0.5 Mg (3 Ml) Ud) 3 ml INH RQ6 [facility] Last Admin: 01/01/18 13:53 Dose: 3 ml Aspirin (Aspirin) 325 mg PO DAILY [facility] [place] Last Admin: 01/01/18 10:15 Dose: 325 mg Digoxin (Lanoxin) 0.25 mg IVP DAILY@1800 [facility] [place] Last Admin: 01/01/18 18:11 Dose: 0.25 mg Heparin Sodium (Porcine) (Heparin) 5,000 units SC Q12 [facility] [place] Last Admin: 01/01/18 10:19 Dose: 5,000 units Metronidazole (Flagyl) 500 mg in 100 mls @ 100 mls/hr IVPB Q8H [facility] [place] PRN Reason: Protocol Last Admin: 01/01/18 18:11 Dose: 100 mls/hr Aztreonam 1 gm/ Sodium (Chloride) 100 mls @ 100 mls/hr IVPB Q12H [facility] [place] PRN Reason: Protocol Last Admin: 01/01/18 10:21 Dose: 100 mls/hr Insulin Detemir (Levemir) 15 unit SC Q12 [facility] [place] Last Admin: 01/01/18 10:16 Dose: 15 unit Insulin Human Regular (Novolin R) 0 unit SC Q4H [facility] [place] PRN Reason: Protocol Last Admin: 01/01/18 16:24 Dose: 6 unit Metoprolol Tartrate (Lopressor) 12.5 mg PO BID [facility] [place] Last Admin: 01/01/18 18:11 Dose: 12.5 mg Morphine Sulfate (Morphine) 2 mg IVP Q4 PRN PRN Reason: Pain, severe (8-10) Last Admin: 12/29/17 07:34 Dose: 2 mg Ondansetron HCl (Zofran Inj) 4 mg IVP Q6H PRN PRN Reason: Nausea/Vomiting Oxycodone HCl (Oxycodone Immediate Release Tab) 5 mg PO Q6 PRN PRN Reason: Pain, moderate (4-7) Pantoprazole Sodium (Protonix Inj) 40 mg IVP Q12H [facility] [place] Last Admin: 01/01/18 10:15 Dose: 40 mg Rosuvastatin Calcium (Crestor) 20 mg PO HS [facility] [place] Last Admin: 12/31/17 20:59 Dose: 20 mg - Labs Labs: 01/01/18 06:01 01/01/18 06:01 PT 12.5 SECONDS (9.7-12.2) H 12/22/17 16:18 INR 1.1 12/22/17 16:18 APTT 48 SECONDS (21-34) H D 12/28/17 05:53 Assessment and Plan (1) Sepsis associated hypotension Status: Acute (2) Perforated abdominal viscus Status: Acute (3) Status post exploratory laparotomy Status: Acute (4) Acute non-ST elevation myocardial infarction (NSTEMI) Status: Acute (5) CHF (congestive heart failure) Status: Acute (6) Diabetes mellitus Status: Acute - Assessment and Plan (Free Text) Plan: CONTINUE IV Azactam 1 g IV piggyback every 12 hourly. 12/26/17 ( PATIENT TOLERATED FIRST DOSE WITHOUT ANY REACTIONS. ) ON IV vancomycin 1 g once a day daily for gram-positive/enterococcal coverage with intra-abdominal sepsis.12/26/17 Continue IV Flagyl 500 every 8 hourly 12/22/17 PULMONARY TOILET
--- NOTE | 2018-01-01 23:35 | CP.PCM.PN ---
Subjective - Date & Time of Evaluation Date of Evaluation: 01/01/18 Time of Evaluation: 19:00 - Subjective Subjective: Pt seen and examined at bedside Objective - Vital Signs/Intake and Output Vital Signs (last 24 hours): Temp Pulse Resp BP Pulse Ox 98.3 F 86 20 118/58 L 98 01/01/18 20:00 01/01/18 23:08 01/01/18 23:08 01/01/18 23:08 01/01/18 23:08 Intake and Output: 01/01/18 01/02/18 18:59 06:59 Intake Total 880 350 Output Total 450 50 Balance 430 300 - Medications Medications: Current Medications Albuterol/Ipratropium (Duoneb 3 Mg/0.5 Mg (3 Ml) Ud) 3 ml INH RQ6 [facility] Last Admin: 01/01/18 20:32 Dose: 3 ml Aspirin (Aspirin) 325 mg PO DAILY [facility] Last Admin: 01/01/18 10:15 Dose: 325 mg Digoxin (Lanoxin) 0.25 mg IVP DAILY@1800 [facility] Last Admin: 01/01/18 18:11 Dose: 0.25 mg Heparin Sodium (Porcine) (Heparin) 5,000 units SC Q12 [facility] Last Admin: 01/01/18 21:28 Dose: 5,000 units Metronidazole (Flagyl) 500 mg in 100 mls @ 100 mls/hr IVPB Q8H [facility] PRN Reason: Protocol Last Admin: 01/01/18 18:11 Dose: 100 mls/hr Aztreonam 1 gm/ Sodium (Chloride) 100 mls @ 100 mls/hr IVPB Q12H [facility] PRN Reason: Protocol Last Admin: 01/01/18 22:29 Dose: 100 mls/hr Insulin Detemir (Levemir) 15 unit SC Q12 [facility] Last Admin: 01/01/18 21:28 Dose: 15 unit Insulin Human Regular (Novolin R) 0 unit SC Q4H [facility] PRN Reason: Protocol Last Admin: 01/01/18 20:00 Dose: 4 unit Metoprolol Tartrate (Lopressor) 12.5 mg PO BID [facility] Last Admin: 01/01/18 18:11 Dose: 12.5 mg Morphine Sulfate (Morphine) 2 mg IVP Q4 PRN PRN Reason: Pain, severe (8-10) Last Admin: 12/29/17 07:34 Dose: 2 mg Ondansetron HCl (Zofran Inj) 4 mg IVP Q6H PRN PRN Reason: Nausea/Vomiting Oxycodone HCl (Oxycodone Immediate Release Tab) 5 mg PO Q6 PRN PRN Reason: Pain, moderate (4-7) Pantoprazole Sodium (Protonix Inj) 40 mg IVP Q12H [facility] Last Admin: 01/01/18 21:27 Dose: 40 mg Rosuvastatin Calcium (Crestor) 20 mg PO HS [facility] Last Admin: 01/01/18 21:28 Dose: 20 mg - Labs Labs: 01/01/18 06:01 01/01/18 06:01 PT 12.5 SECONDS (9.7-12.2) H 12/22/17 16:18 INR 1.1 12/22/17 16:18 APTT 48 SECONDS (21-34) H D 12/28/17 05:53 Assessment and Plan (1) Perforated abdominal viscus Status: Acute (2) Diabetes mellitus Status: Acute (3) GERD (gastroesophageal reflux disease) Status: Acute (4) Acute non-ST elevation myocardial infarction (NSTEMI) Status: Acute
--- NOTE | 2018-01-01 23:46 | CP.PCM.PN ---
Subjective - Date & Time of Evaluation Date of Evaluation: 01/01/18 Time of Evaluation: 09:05 Objective - Vital Signs/Intake and Output Vital Signs (last 24 hours): Temp Pulse Resp BP Pulse Ox 98.3 F 86 20 118/58 L 98 01/01/18 20:00 01/01/18 23:08 01/01/18 23:08 01/01/18 23:08 01/01/18 23:08 Intake and Output: 01/01/18 01/02/18 18:59 06:59 Intake Total 880 350 Output Total 450 50 Balance 430 300 - Medications Medications: Current Medications Albuterol/Ipratropium (Duoneb 3 Mg/0.5 Mg (3 Ml) Ud) 3 ml INH RQ6 [facility] Last Admin: 01/01/18 20:32 Dose: 3 ml Aspirin (Aspirin) 325 mg PO DAILY [facility] Last Admin: 01/01/18 10:15 Dose: 325 mg Digoxin (Lanoxin) 0.25 mg IVP DAILY@1800 [facility] Last Admin: 01/01/18 18:11 Dose: 0.25 mg Heparin Sodium (Porcine) (Heparin) 5,000 units SC Q12 [facility] Last Admin: 01/01/18 21:28 Dose: 5,000 units Metronidazole (Flagyl) 500 mg in 100 mls @ 100 mls/hr IVPB Q8H [facility] PRN Reason: Protocol Last Admin: 01/01/18 18:11 Dose: 100 mls/hr Aztreonam 1 gm/ Sodium (Chloride) 100 mls @ 100 mls/hr IVPB Q12H [facility] PRN Reason: Protocol Last Admin: 01/01/18 22:29 Dose: 100 mls/hr Insulin Detemir (Levemir) 15 unit SC Q12 [facility] Last Admin: 01/01/18 21:28 Dose: 15 unit Insulin Human Regular (Novolin R) 0 unit SC Q4H [facility] PRN Reason: Protocol Last Admin: 01/01/18 23:37 Dose: 2 unit Metoprolol Tartrate (Lopressor) 12.5 mg PO BID [facility] Last Admin: 01/01/18 18:11 Dose: 12.5 mg Morphine Sulfate (Morphine) 2 mg IVP Q4 PRN PRN Reason: Pain, severe (8-10) Last Admin: 12/29/17 07:34 Dose: 2 mg Ondansetron HCl (Zofran Inj) 4 mg IVP Q6H PRN PRN Reason: Nausea/Vomiting Oxycodone HCl (Oxycodone Immediate Release Tab) 5 mg PO Q6 PRN PRN Reason: Pain, moderate (4-7) Pantoprazole Sodium (Protonix Inj) 40 mg IVP Q12H [facility] Last Admin: 01/01/18 21:27 Dose: 40 mg Rosuvastatin Calcium (Crestor) 20 mg PO HS [facility] Last Admin: 01/01/18 21:28 Dose: 20 mg - Labs Labs: 01/01/18 06:01 01/01/18 06:01 PT 12.5 SECONDS (9.7-12.2) H 12/22/17 16:18 INR 1.1 12/22/17 16:18 APTT 48 SECONDS (21-34) H D 12/28/17 05:53
[2018-01-02] MEDS: Albuterol-Ipratrop 3 mg / 0.5 (3 ml) UD INH SCH ×4 (01:05→19:54)
[2018-01-02] MEDS: metroNIDAZOLE IV 500 mg/100 ml 500 MG/100 ML BAG IVPB SCH ×3 (03:22→18:09)
[2018-01-02] MEDS: (Novolin R) Insulin Human Regular 100 units/ml vial SC SCH ×5 (03:57→20:00)
[2018-01-02] MEDS ORDERED: Vancomycin 1 gm/NS 200 ml 1 GM/200 ML BAG IVPB SCH ×2 (04:00→05:00)
[2018-01-02 06:15] LABS: BASO # 0.1 K/uL (0.0-0.2); BASO % 0.5 % (0.0-2.0); EOS # 0.2 K/uL (0.0-0.7); EOS % 1.4 % (0.0-4.0); HEMOGLOBIN 9.1 g/dL (12.0-18.0); LYMPH # 0.6 K/uL (1.0-4.3); LYMPH % 4.6 % (20.0-40.0); MEAN CELL VOLUME 91.1 fL (80.0-94.0); MEAN CORPUSCULAR HEMOGLOBIN 30.1 pg (27.0-31.0); MEAN CORPUSCULAR HGB CONC 33.1 g/dL (33.0-37.0); MONO # 0.6 K/uL (0.0-0.8); MONO % 4.9 % (0.0-10.0); NEUT # 11.6 K/uL (1.8-7.0); NEUT % 88.6 % (50.0-75.0); PLATELET COUNT 343 K/uL (130-400); RBC 3.02 Mil/uL (4.40-5.90); WHITE BLOOD COUNT 13.1 K/uL (4.8-10.8)
[2018-01-02 06:38] LABS: ALB/GLOB RATIO 0.7 (1.0-2.1); ALBUMIN 2.4 g/dL (3.5-5.0); ALT/SGPT 18 U/L (21-72); AST/SGOT 25 U/L (17-59); BLOOD UREA NITROGEN 37 mg/dL (9-20); CALCIUM 9.6 mg/dl (8.6-10.4); GFR AFRICAN-AMERICAN > 60; GFR NON-AFRICAN AMERICAN 53
--- NOTE | 2018-01-02 08:13 | CP.CCUPN ---
<Clement Vincent - Last Filed: 01/02/18 10:28> CCU Subjective - Physician Review Subjective (Free Text): 01/01/18 08:31 Patient seen and examined. Patient remains with some abdominal pain from his surgery. He states that his breathing is so-so. 01/02/18 08:09 Patient seen and examined. Patient complaining of general malaise. He was again encouraged not to refuse physical therapy. CCU Objective - Vital Signs / Intake & Output Vital Signs (Last 4 hours): Vital Signs Pulse Resp BP Pulse Ox 01/02/18 07:08 112 H 26 H 125/74 98 01/02/18 07:00 92 H 22 98 01/02/18 06:00 100 H 23 97 01/02/18 05:08 105 H 21 117/68 96 01/02/18 05:00 104 H 25 H 96 Intake and Output (Last 8hrs): Intake & Output 01/01/18 01/02/18 01/02/18 22:59 06:59 14:59 Intake Total 460 640 30 Output Total 500 800 Balance -40 -160 30 Intake: Intake, IV Amount 100 200 Left Forearm 0 Left Forearm #2 0 Left Proximal Port 100 200 Internal Jugular Right Forearm 0 Oral 20 100 Tube Feeding 240 240 30 Other 100 100 Output: Drainage 50 Right Lower Abdomen 50 Urine 450 800 Urine, Voided 450 800 Other: # Voids Urine, Voided 3 # Bowel Movements 0 - Physical Exam Head: Positive for: Atraumatic, Normocephalic Pupils: Positive for: PERRL Extroacular Muscles: Positive for: EOMI Mouth: Positive for: Moist Mucous Membranes Nose (External): Positive for: Other (NGT in place) Neck: Positive for: Other (left IJ TLC) Respiratory/Chest: Positive for: Clear to Auscultation, Decreased Breath Sounds (at bases). Negative for: Wheezes, Rales, Rhonchi Cardiovascular: Positive for: Normal S1, S2, Irregular Rhythm, Tachycardic Abdomen: Positive for: Tenderness, Guarding, Other (Abdominal dressing clean,dry ,intact) Upper Extremity: Positive for: Normal Inspection Lower Extremity: Positive for: Normal Inspection Neurological: Positive for: GCS=15 Skin: Positive for: Warm, Dry Psychiatric: Positive for: Alert, Oriented x 3 - Medications Active Medications: Active Medications Generic Name Dose Route Start Last Admin Trade Name Freq PRN Reason Stop Dose Admin Albuterol/Ipratropium 3 ml 12/28/17 14:00 01/02/18 07:56 Duoneb 3 Mg/0.5 Mg (3 Ml) Ud INH 3 ml RQ6 KAROLINE Administration Aspirin 325 mg 12/29/17 10:00 01/01/18 10:15 Aspirin PO 325 mg DAILY KAROLINE Administration Digoxin 0.25 mg 12/27/17 18:00 01/01/18 18:11 Lanoxin IVP 0.25 mg DAILY@1800 KAROLINE Administration Heparin Sodium (Porcine) 5,000 units 01/01/18 10:00 01/01/18 21:28 Heparin SC 5,000 units Q12 KAROLINE Administration Metronidazole 500 mg in 100 mls @ 100 mls/hr 12/23/17 03:00 01/02/18 03:22 Flagyl IVPB 100 mls/hr Q8H KAROLINE Administration Protocol Aztreonam 1 gm/ Sodium 100 mls @ 100 mls/hr 12/27/17 11:00 01/01/18 22:29 Chloride IVPB 100 mls/hr Q12H KAROLINE Administration Protocol Vancomycin/Sodium Chloride 1 gm in 200 mls @ 166.7 mls/hr 01/02/18 10:00 Vancomycin 1 Gm/Ns 200 Ml IVPB 01/07/18 10:01 Q24H KAROLINE Protocol Insulin Detemir 15 unit 12/31/17 10:00 01/01/18 21:28 Levemir SC 15 unit Q12 KAROLINE Administration Insulin Human Regular 0 unit 12/31/17 12:00 01/02/18 07:50 Novolin R SC 4 unit Q4H KAROLINE Administration Protocol Metoprolol Tartrate 12.5 mg 12/29/17 11:00 01/01/18 18:11 Lopressor PO 12.5 mg BID KAROLINE Administration Morphine Sulfate 2 mg 12/25/17 07:43 12/29/17 07:34 Morphine IVP 2 mg Q4 PRN Administration Pain, severe (8-10) Ondansetron HCl 4 mg 12/22/17 16:46 Zofran Inj IVP Q6H PRN Nausea/Vomiting Oxycodone HCl 5 mg 12/30/17 19:24 Oxycodone Immediate Release Tab PO Q6 PRN Pain, moderate (4-7) Pantoprazole Sodium 40 mg 12/22/17 22:15 01/01/18 21:27 Protonix Inj IVP 40 mg Q12H KAROLINE Administration Rosuvastatin Calcium 20 mg 12/28/17 22:00 01/01/18 21:28 Crestor PO 20 mg HS KAROLINE Administration - Patient Studies Lab Studies: Lab Studies 01/02/18 01/02/18 01/02/18 Range/Units 07:39 06:07 06:06 WBC 13.1 H (4.8-10.8) K/uL RBC 3.02 L (4.40-5.90) Mil/uL Hgb 9.1 L (12.0-18.0) g/dL Hct 27.5 L (35.0-51.0) % MCV 91.1 (80.0-94.0) fL MCH 30.1 (27.0-31.0) pg MCHC 33.1 (33.0-37.0) g/dL RDW 14.0 (11.5-14.5) % Plt Count 343 (130-400) K/uL MPV 10.0 (7.2-11.7) fL Neut % (Auto) 88.6 H (50.0-75.0) % Lymph % (Auto) 4.6 L (20.0-40.0) % [place] % (Auto) 4.9 (0.0-10.0) % Eos % (Auto) 1.4 (0.0-4.0) % Baso % (Auto) 0.5 (0.0-2.0) % Neut # (Auto) 11.6 H (1.8-7.0) K/uL Lymph # (Auto) 0.6 L (1.0-4.3) K/uL [place] # (Auto) 0.6 (0.0-0.8) K/uL Eos # (Auto) 0.2 (0.0-0.7) K/uL Baso # (Auto) 0.1 (0.0-0.2) K/uL Neutrophils % (Manual) (50-75) % Lymphocytes % (Manual) (20-40) % Monocytes % (Manual) (0-10) % Eosinophils % (Manual) (0-4) % Platelet Estimate (NORMAL) Polychromasia Hypochromasia (manual) Target Cells Sodium 149 H (132-148) mmol/L Potassium 3.9 (3.6-5.2) mmol/L Chloride 114 H (98-107) mmol/L Carbon Dioxide 26 (22-30) mmol/L Anion Gap 14 (10-20) BUN 37 H (9-20) mg/dL Creatinine 1.3 (0.8-1.5) mg/dL Est GFR ( Amer) > 60 Est GFR (Non-Af Amer) 53 POC Glucose (mg/dL) 221 H (65-110) mg/dL Random Glucose 183 H (75-110) mg/dL Calcium 9.6 (8.6-10.4) mg/dl Phosphorus 2.5 (2.5-4.5) mg/dL Magnesium 1.8 (1.6-2.3) mg/dL Total Bilirubin 0.2 (0.2-1.3) mg/dL AST 25 (17-59) U/L ALT 18 L (21-72) U/L Alkaline Phosphatase 102 (38-126) U/L Total Protein 5.6 L (6.3-8.3) g/dL Albumin 2.4 L (3.5-5.0) g/dL Globulin 3.2 (2.2-3.9) gm/dL Albumin/Globulin Ratio 0.7 L (1.0-2.1) 01/02/18 01/01/18 01/01/18 Range/Units 03:53 23:24 19:51 WBC (4.8-10.8) K/uL RBC (4.40-5.90) Mil/uL Hgb (12.0-18.0) g/dL Hct (35.0-51.0) % MCV (80.0-94.0) fL MCH (27.0-31.0) pg MCHC (33.0-37.0) g/dL RDW (11.5-14.5) % Plt Count (130-400) K/uL MPV (7.2-11.7) fL Neut % (Auto) (50.0-75.0) % Lymph % (Auto) (20.0-40.0) % [place] % (Auto) (0.0-10.0) % Eos % (Auto) (0.0-4.0) % Baso % (Auto) (0.0-2.0) % Neut # (Auto) (1.8-7.0) K/uL Lymph # (Auto) (1.0-4.3) K/uL [place] # (Auto) (0.0-0.8) K/uL Eos # (Auto) (0.0-0.7) K/uL Baso # (Auto) (0.0-0.2) K/uL Neutrophils % (Manual) (50-75) % Lymphocytes % (Manual) (20-40) % Monocytes % (Manual) (0-10) % Eosinophils % (Manual) (0-4) % Platelet Estimate (NORMAL) Polychromasia Hypochromasia (manual) Target Cells Sodium (132-148) mmol/L Potassium (3.6-5.2) mmol/L Chloride (98-107) mmol/L Carbon Dioxide (22-30) mmol/L Anion Gap (10-20) BUN (9-20) mg/dL Creatinine (0.8-1.5) mg/dL Est GFR ( Amer) Est GFR (Non-Af Amer) POC Glucose (mg/dL) 189 H 192 H 238 H (65-110) mg/dL Random Glucose (75-110) mg/dL Calcium (8.6-10.4) mg/dl Phosphorus (2.5-4.5) mg/dL Magnesium (1.6-2.3) mg/dL Total Bilirubin (0.2-1.3) mg/dL AST (17-59) U/L ALT (21-72) U/L Alkaline Phosphatase (38-126) U/L Total Protein (6.3-8.3) g/dL Albumin (3.5-5.0) g/dL Globulin (2.2-3.9) gm/dL Albumin/Globulin Ratio (1.0-2.1) 01/01/18 01/01/18 01/01/18 Range/Units 15:50 11:13 08:46 WBC (4.8-10.8) K/uL RBC (4.40-5.90) Mil/uL Hgb (12.0-18.0) g/dL Hct (35.0-51.0) % MCV (80.0-94.0) fL MCH (27.0-31.0) pg MCHC (33.0-37.0) g/dL RDW (11.5-14.5) % Plt Count (130-400) K/uL MPV (7.2-11.7) fL Neut % (Auto) (50.0-75.0) % Lymph % (Auto) (20.0-40.0) % [place] % (Auto) (0.0-10.0) % Eos % (Auto) (0.0-4.0) % Baso % (Auto) (0.0-2.0) % Neut # (Auto) (1.8-7.0) K/uL Lymph # (Auto) (1.0-4.3) K/uL [place] # (Auto) (0.0-0.8) K/uL Eos # (Auto) (0.0-0.7) K/uL Baso # (Auto) (0.0-0.2) K/uL Neutrophils % (Manual) (50-75) % Lymphocytes % (Manual) (20-40) % Monocytes % (Manual) (0-10) % Eosinophils % (Manual) (0-4) % Platelet Estimate (NORMAL) Polychromasia Hypochromasia (manual) Target Cells Sodium (132-148) mmol/L Potassium (3.6-5.2) mmol/L Chloride (98-107) mmol/L Carbon Dioxide (22-30) mmol/L Anion Gap (10-20) BUN (9-20) mg/dL Creatinine (0.8-1.5) mg/dL Est GFR ( Amer) Est GFR (Non-Af Amer) POC Glucose (mg/dL) 278 H 334 H 134 H (65-110) mg/dL Random Glucose (75-110) mg/dL Calcium (8.6-10.4) mg/dl Phosphorus (2.5-4.5) mg/dL Magnesium (1.6-2.3) mg/dL Total Bilirubin (0.2-1.3) mg/dL AST (17-59) U/L ALT (21-72) U/L Alkaline Phosphatase (38-126) U/L Total Protein (6.3-8.3) g/dL Albumin (3.5-5.0) g/dL Globulin (2.2-3.9) gm/dL Albumin/Globulin Ratio (1.0-2.1) 01/01/18 Range/Units 06:01 WBC (4.8-10.8) K/uL RBC (4.40-5.90) Mil/uL Hgb (12.0-18.0) g/dL Hct (35.0-51.0) % MCV (80.0-94.0) fL MCH (27.0-31.0) pg MCHC (33.0-37.0) g/dL RDW (11.5-14.5) % Plt Count (130-400) K/uL MPV (7.2-11.7) fL Neut % (Auto) (50.0-75.0) % Lymph % (Auto) (20.0-40.0) % [place] % (Auto) (0.0-10.0) % Eos % (Auto) (0.0-4.0) % Baso % (Auto) (0.0-2.0) % Neut # (Auto) (1.8-7.0) K/uL Lymph # (Auto) (1.0-4.3) K/uL [place] # (Auto) (0.0-0.8) K/uL Eos # (Auto) (0.0-0.7) K/uL Baso # (Auto) (0.0-0.2) K/uL Neutrophils % (Manual) 94 H (50-75) % Lymphocytes % (Manual) 4 L (20-40) % Monocytes % (Manual) 1 (0-10) % Eosinophils % (Manual) 1 (0-4) % Platelet Estimate Normal (NORMAL) Polychromasia Slight Hypochromasia (manual) Slight Target Cells Slight Sodium (132-148) mmol/L Potassium (3.6-5.2) mmol/L Chloride (98-107) mmol/L Carbon Dioxide (22-30) mmol/L Anion Gap (10-20) BUN (9-20) mg/dL Creatinine (0.8-1.5) mg/dL Est GFR ( Amer) Est GFR (Non-Af Amer) POC Glucose (mg/dL) (65-110) mg/dL Random Glucose (75-110) mg/dL Calcium (8.6-10.4) mg/dl Phosphorus (2.5-4.5) mg/dL Magnesium (1.6-2.3) mg/dL Total Bilirubin (0.2-1.3) mg/dL AST (17-59) U/L ALT (21-72) U/L Alkaline Phosphatase (38-126) U/L Total Protein (6.3-8.3) g/dL Albumin (3.5-5.0) g/dL Globulin (2.2-3.9) gm/dL Albumin/Globulin Ratio (1.0-2.1) Laboratory Results - last 24 hr 01/01/18 01/01/18 01/01/18 06:01 08:46 11:13 WBC RBC Hgb Hct MCV MCH MCHC RDW Plt Count MPV Neut % (Auto) Lymph % (Auto) [place] % (Auto) Eos % (Auto) Baso % (Auto) Neut # (Auto) Lymph # (Auto) [place] # (Auto) Eos # (Auto) Baso # (Auto) Neutrophils % (Manual) 94 H Lymphocytes % (Manual) 4 L Monocytes % (Manual) 1 Eosinophils % (Manual) 1 Platelet Estimate Normal Polychromasia Slight Hypochromasia (manual) Slight Target Cells Slight Sodium Potassium Chloride Carbon Dioxide Anion Gap BUN Creatinine Est GFR ( Amer) Est GFR (Non-Af Amer) POC Glucose (mg/dL) 134 H 334 H Random Glucose Calcium Phosphorus Magnesium Total Bilirubin AST ALT Alkaline Phosphatase Total Protein Albumin Globulin Albumin/Globulin Ratio 01/01/18 01/01/18 01/01/18 15:50 19:51 23:24 WBC RBC Hgb Hct MCV MCH MCHC RDW Plt Count MPV Neut % (Auto) Lymph % (Auto) [place] % (Auto) Eos % (Auto) Baso % (Auto) Neut # (Auto) Lymph # (Auto) [place] # (Auto) Eos # (Auto) Baso # (Auto) Neutrophils % (Manual) Lymphocytes % (Manual) Monocytes % (Manual) Eosinophils % (Manual) Platelet Estimate Polychromasia Hypochromasia (manual) Target Cells Sodium Potassium Chloride Carbon Dioxide Anion Gap BUN Creatinine Est GFR ( Amer) Est GFR (Non-Af Amer) POC Glucose (mg/dL) 278 H 238 H 192 H Random Glucose Calcium Phosphorus Magnesium Total Bilirubin AST ALT Alkaline Phosphatase Total Protein Albumin Globulin Albumin/Globulin Ratio 01/02/18 01/02/18 01/02/18 03:53 06:06 06:07 WBC 13.1 H RBC 3.02 L Hgb 9.1 L Hct 27.5 L MCV 91.1 MCH 30.1 MCHC 33.1 RDW 14.0 Plt Count 343 MPV 10.0 Neut % (Auto) 88.6 H Lymph % (Auto) 4.6 L [place] % (Auto) 4.9 Eos % (Auto) 1.4 Baso % (Auto) 0.5 Neut # (Auto) 11.6 H Lymph # (Auto) 0.6 L [place] # (Auto) 0.6 Eos # (Auto) 0.2 Baso # (Auto) 0.1 Neutrophils % (Manual) Lymphocytes % (Manual) Monocytes % (Manual) Eosinophils % (Manual) Platelet Estimate Polychromasia Hypochromasia (manual) Target Cells Sodium 149 H Potassium 3.9 Chloride 114 H Carbon Dioxide 26 Anion Gap 14 BUN 37 H Creatinine 1.3 Est GFR ( Amer) > 60 Est GFR (Non-Af Amer) 53 POC Glucose (mg/dL) 189 H Random Glucose 183 H Calcium 9.6 Phosphorus 2.5 Magnesium 1.8 Total Bilirubin 0.2 AST 25 ALT 18 L Alkaline Phosphatase 102 Total Protein 5.6 L Albumin 2.4 L Globulin 3.2 Albumin/Globulin Ratio 0.7 L 01/02/18 07:39 WBC RBC Hgb Hct MCV MCH MCHC RDW Plt Count MPV Neut % (Auto) Lymph % (Auto) [place] % (Auto) Eos % (Auto) Baso % (Auto) Neut # (Auto) Lymph # (Auto) [place] # (Auto) Eos # (Auto) Baso # (Auto) Neutrophils % (Manual) Lymphocytes % (Manual) Monocytes % (Manual) Eosinophils % (Manual) Platelet Estimate Polychromasia Hypochromasia (manual) Target Cells Sodium Potassium Chloride Carbon Dioxide Anion Gap BUN Creatinine Est GFR ( Amer) Est GFR (Non-Af Amer) POC Glucose (mg/dL) 221 H Random Glucose Calcium Phosphorus Magnesium Total Bilirubin AST ALT Alkaline Phosphatase Total Protein Albumin Globulin Albumin/Globulin Ratio Fingerstick Blood Sugar Results: 221 Critical Care Progress Note - Nutrition Nutrition: Nutrition Category Date Time Status Liquid Diet [DIET] Diets 12/27/17 Lunch Active Assessment/Plan - Assessment and Plan (Free Text) Assessment: This is a 77 year old male with PMHx diabetes, hypertension, hypercholesterolemia admitted with perforated duodenal ulcer status post exploratory laparotomy with Repair of peptic perforation with Colin patch on . POD #11. Patient is s/p cardiac cath which showed multi vessel disease. Patient will need CABG, but if CT surgery refuses, high risk PCI will need to be performed. Tentative plan is for CABG after improvement in patient's clinical picture. However, the current issue is failure to thrive. 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 Duoneb Q6H KAROLINE Incentive spirometer--however patient refuses intermittently GI Assessment: s/p Duodenal perforation, failure to thrive Liquid Diet per surgery--encouraged eating and pleasure feeds Tube feeds Protonix 40 mg IV Q12 Dietary Supplements Endocrine Assessment: DM 2 Accuchecks ACHS Novolog sliding scale ACHS Levemir 15 units SC Q12H Infectious Disease Assessment: Purulent drainage from duodenal perforation (POD #11) Azactam 1 gm IV Q12H Flagyl 500 mg IV Q8H ID on consult Prophylaxis Protonix 40 mg IV Q12 Heparin SC Q[address]iscuss[address] Faye <Obed Faye S - Last Filed: 01/02/18 16:18> CCU Objective - Vital Signs / Intake & Output Vital Signs (Last 4 hours): Vital Signs Temp Pulse Resp BP Pulse Ox 01/02/18 16:09 102 H 19 107/54 L 100 01/02/18 16:00 98 F 101 H 17 99 01/02/18 15:09 107 H 15 102/55 L 94 L 01/02/18 15:00 95 H 17 99 01/02/18 14:09 87 17 110/54 L 100 01/02/18 14:00 98 H 18 100 01/02/18 13:09 94 H 19 123/69 95 01/02/18 13:00 98 H 18 100 Intake and Output (Last 8hrs): Intake & Output 01/02/18 01/02/18 01/02/18 06:59 14:59 22:59 Intake Total 640 790 60 Output Total 800 Balance -160 790 60 Weight 145 lb 5 oz Intake: Intake, IV Amount 200 400 Left Proximal Port 200 400 Internal Jugular Oral 100 Tube Feeding 240 240 60 Other 100 150 Output: Urine 800 Urine, Voided 800 Other: # Bowel Movements 0 1 - Medications Active Medications: Active Medications Generic Name Dose Route Start Last Admin Trade Name Freq PRN Reason Stop Dose Admin Albuterol/Ipratropium 3 ml 12/28/17 14:00 01/02/18 14:12 Duoneb 3 Mg/0.5 Mg (3 Ml) Ud INH 3 ml RQ6 KAROLINE Administration Aspirin 325 mg 12/29/17 10:00 01/02/18 09:12 Aspirin PO 325 mg DAILY KAROLINE Administration Digoxin 0.25 mg 12/27/17 18:00 01/01/18 18:11 Lanoxin IVP 0.25 mg DAILY@1800 KAROLINE Administration Heparin Sodium (Porcine) 5,000 units 01/01/18 10:00 01/02/18 09:12 Heparin SC 5,000 units Q12 KAROLINE Administration Metronidazole 500 mg in 100 mls @ 100 mls/hr 12/23/17 03:00 01/02/18 11:03 Flagyl IVPB 100 mls/hr Q8H KAROLINE Administration Protocol Aztreonam 1 gm/ Sodium 100 mls @ 100 mls/hr 12/27/17 11:00 01/02/18 11:21 Chloride IVPB 100 mls/hr Q12H KAROLINE Administration Protocol Vancomycin/Sodium Chloride 1 gm in 200 mls @ 166.7 mls/hr 01/02/18 10:00 09:30 Vancomycin 1 Gm/Ns 200 Ml IVPB 01/07/18 10:01 166.7 mls/hr Q24H KAROLINE Administration Protocol Insulin Detemir 15 unit 12/31/17 10:00 01/02/18 09:12 Levemir SC 15 unit Q12 KAROLINE Administration Insulin Human Regular 0 unit 12/31/17 12:00 01/02/18 12:11 Novolin R SC 4 unit Q4H KAROLINE Administration Protocol Metoprolol Tartrate 12.5 mg 12/29/17 11:00 01/02/18 09:11 Lopressor PO 12.5 mg BID KAROLINE Administration Morphine Sulfate 2 mg 12/25/17 07:43 12/29/17 07:34 Morphine IVP 2 mg Q4 PRN Administration Pain, severe (8-10) Ondansetron HCl 4 mg 12/22/17 16:46 Zofran Inj IVP Q6H PRN Nausea/Vomiting Oxycodone HCl 5 mg 12/30/17 19:24 Oxycodone Immediate Release Tab PO Q6 PRN Pain, moderate (4-7) Pantoprazole Sodium 40 mg 12/22/17 22:15 01/02/18 09:27 Protonix Inj IVP 40 mg Q12H KAROLINE Administration Rosuvastatin Calcium 20 mg 12/28/17 22:00 01/01/18 21:28 Crestor PO 20 mg HS KAROLINE Administration - Patient Studies Lab Studies: Lab Studies 01/02/18 01/02/18 01/02/18 Range/Units 15:53 12:01 07:39 WBC (4.8-10.8) K/uL RBC (4.40-5.90) Mil/uL Hgb (12.0-18.0) g/dL Hct (35.0-51.0) % MCV (80.0-94.0) fL MCH (27.0-31.0) pg MCHC (33.0-37.0) g/dL RDW (11.5-14.5) % Plt Count (130-400) K/uL MPV (7.2-11.7) fL Neut % (Auto) (50.0-75.0) % Lymph % (Auto) (20.0-40.0) % [place] % (Auto) (0.0-10.0) % Eos % (Auto) (0.0-4.0) % Baso % (Auto) (0.0-2.0) % Neut # (Auto) (1.8-7.0) K/uL Lymph # (Auto) (1.0-4.3) K/uL [place] # (Auto) (0.0-0.8) K/uL Eos # (Auto) (0.0-0.7) K/uL Baso # (Auto) (0.0-0.2) K/uL Neutrophils % (Manual) (50-75) % Lymphocytes % (Manual) (20-40) % Monocytes % (Manual) (0-10) % Platelet Estimate (NORMAL) Large Platelets RBC Morphology Sodium (132-148) mmol/L Potassium (3.6-5.2) mmol/L Chloride (98-107) mmol/L Carbon Dioxide (22-30) mmol/L Anion Gap (10-20) BUN (9-20) mg/dL Creatinine (0.8-1.5) mg/dL Est GFR ( Amer) Est GFR (Non-Af Amer) POC Glucose (mg/dL) 185 H 213 H 221 H (65-110) mg/dL Random Glucose (75-110) mg/dL Calcium (8.6-10.4) mg/dl Phosphorus (2.5-4.5) mg/dL Magnesium (1.6-2.3) mg/dL Total Bilirubin (0.2-1.3) mg/dL AST (17-59) U/L ALT (21-72) U/L Alkaline Phosphatase (38-126) U/L Total Protein (6.3-8.3) g/dL Albumin (3.5-5.0) g/dL Globulin (2.2-3.9) gm/dL Albumin/Globulin Ratio (1.0-2.1) 01/02/18 01/02/18 01/02/18 Range/Units 06:07 06:06 03:53 WBC 13.1 H (4.8-10.8) K/uL RBC 3.02 L (4.40-5.90) Mil/uL Hgb 9.1 L (12.0-18.0) g/dL Hct 27.5 L (35.0-51.0) % MCV 91.1 (80.0-94.0) fL MCH 30.1 (27.0-31.0) pg MCHC 33.1 (33.0-37.0) g/dL RDW 14.0 (11.5-14.5) % Plt Count 343 (130-400) K/uL MPV 10.0 (7.2-11.7) fL Neut % (Auto) 88.6 H (50.0-75.0) % Lymph % (Auto) 4.6 L (20.0-40.0) % [place] % (Auto) 4.9 (0.0-10.0) % Eos % (Auto) 1.4 (0.0-4.0) % Baso % (Auto) 0.5 (0.0-2.0) % Neut # (Auto) 11.6 H (1.8-7.0) K/uL Lymph # (Auto) 0.6 L (1.0-4.3) K/uL [place] # (Auto) 0.6 (0.0-0.8) K/uL Eos # (Auto) 0.2 (0.0-0.7) K/uL Baso # (Auto) 0.1 (0.0-0.2) K/uL Neutrophils % (Manual) 90 H (50-75) % Lymphocytes % (Manual) 4 L (20-40) % Monocytes % (Manual) 6 (0-10) % Platelet Estimate Normal (NORMAL) Large Platelets Present RBC Morphology Normal Sodium 149 H (132-148) mmol/L Potassium 3.9 (3.6-5.2) mmol/L Chloride 114 H (98-107) mmol/L Carbon Dioxide 26 (22-30) mmol/L Anion Gap 14 (10-20) BUN 37 H (9-20) mg/dL Creatinine 1.3 (0.8-1.5) mg/dL Est GFR ( Amer) > 60 Est GFR (Non-Af Amer) 53 POC Glucose (mg/dL) 189 H (65-110) mg/dL Random Glucose 183 H (75-110) mg/dL Calcium 9.6 (8.6-10.4) mg/dl Phosphorus 2.5 (2.5-4.5) mg/dL Magnesium 1.8 (1.6-2.3) mg/dL Total Bilirubin 0.2 (0.2-1.3) mg/dL AST 25 (17-59) U/L ALT 18 L (21-72) U/L Alkaline Phosphatase 102 (38-126) U/L Total Protein 5.6 L (6.3-8.3) g/dL Albumin 2.4 L (3.5-5.0) g/dL Globulin 3.2 (2.2-3.9) gm/dL Albumin/Globulin Ratio 0.7 L (1.0-2.1) 01/01/18 01/01/18 Range/Units 23:24 19:51 WBC (4.8-10.8) K/uL RBC (4.40-5.90) Mil/uL Hgb (12.0-18.0) g/dL Hct (35.0-51.0) % MCV (80.0-94.0) fL MCH (27.0-31.0) pg MCHC (33.0-37.0) g/dL RDW (11.5-14.5) % Plt Count (130-400) K/uL MPV (7.2-11.7) fL Neut % (Auto) (50.0-75.0) % Lymph % (Auto) (20.0-40.0) % [place] % (Auto) (0.0-10.0) % Eos % (Auto) (0.0-4.0) % Baso % (Auto) (0.0-2.0) % Neut # (Auto) (1.8-7.0) K/uL Lymph # (Auto) (1.0-4.3) K/uL [place] # (Auto) (0.0-0.8) K/uL Eos # (Auto) (0.0-0.7) K/uL Baso # (Auto) (0.0-0.2) K/uL Neutrophils % (Manual) (50-75) % Lymphocytes % (Manual) (20-40) % Monocytes % (Manual) (0-10) % Platelet Estimate (NORMAL) Large Platelets RBC Morphology Sodium (132-148) mmol/L Potassium (3.6-5.2) mmol/L Chloride (98-107) mmol/L Carbon Dioxide (22-30) mmol/L Anion Gap (10-20) BUN (9-20) mg/dL Creatinine (0.8-1.5) mg/dL Est GFR ( Amer) Est GFR (Non-Af Amer) POC Glucose (mg/dL) 192 H 238 H (65-110) mg/dL Random Glucose (75-110) mg/dL Calcium (8.6-10.4) mg/dl Phosphorus (2.5-4.5) mg/dL Magnesium (1.6-2.3) mg/dL Total Bilirubin (0.2-1.3) mg/dL AST (17-59) U/L ALT (21-72) U/L Alkaline Phosphatase (38-126) U/L Total Protein (6.3-8.3) g/dL Albumin (3.5-5.0) g/dL Globulin (2.2-3.9) gm/dL Albumin/Globulin Ratio (1.0-2.1) Laboratory Results - last 24 hr 01/01/18 01/01/18 01/02/18 19:51 23:24 03:53 WBC RBC Hgb Hct MCV MCH MCHC RDW Plt Count MPV Neut % (Auto) Lymph % (Auto) [place] % (Auto) Eos % (Auto) Baso % (Auto) Neut # (Auto) Lymph # (Auto) [place] # (Auto) Eos # (Auto) Baso # (Auto) Neutrophils % (Manual) Lymphocytes % (Manual) Monocytes % (Manual) Platelet Estimate Large Platelets RBC Morphology Sodium Potassium Chloride Carbon Dioxide Anion Gap BUN Creatinine Est GFR ( Amer) Est GFR (Non-Af Amer) POC Glucose (mg/dL) 238 H 192 H 189 H Random Glucose Calcium Phosphorus Magnesium Total Bilirubin AST ALT Alkaline Phosphatase Total Protein Albumin Globulin Albumin/Globulin Ratio 01/02/18 01/02/18 01/02/18 06:06 06:07 07:39 WBC 13.1 H RBC 3.02 L Hgb 9.1 L Hct 27.5 L MCV 91.1 MCH 30.1 MCHC 33.1 RDW 14.0 Plt Count 343 MPV 10.0 Neut % (Auto) 88.6 H Lymph % (Auto) 4.6 L [place] % (Auto) 4.9 Eos % (Auto) 1.4 Baso % (Auto) 0.5 Neut # (Auto) 11.6 H Lymph # (Auto) 0.6 L [place] # (Auto) 0.6 Eos # (Auto) 0.2 Baso # (Auto) 0.1 Neutrophils % (Manual) 90 H Lymphocytes % (Manual) 4 L Monocytes % (Manual) 6 Platelet Estimate Normal Large Platelets Present RBC Morphology Normal Sodium 149 H Potassium 3.9 Chloride 114 H Carbon Dioxide 26 Anion Gap 14 BUN 37 H Creatinine 1.3 Est GFR ( Amer) > 60 Est GFR (Non-Af Amer) 53 POC Glucose (mg/dL) 221 H Random Glucose 183 H Calcium 9.6 Phosphorus 2.5 Magnesium 1.8 Total Bilirubin 0.2 AST 25 ALT 18 L Alkaline Phosphatase 102 Total Protein 5.6 L Albumin 2.4 L Globulin 3.2 Albumin/Globulin Ratio 0.7 L 01/02/18 01/02/18 12:01 15:53 WBC RBC Hgb Hct MCV MCH MCHC RDW Plt Count MPV Neut % (Auto) Lymph % (Auto) [place] % (Auto) Eos % (Auto) Baso % (Auto) Neut # (Auto) Lymph # (Auto) [place] # (Auto) Eos # (Auto) Baso # (Auto) Neutrophils % (Manual) Lymphocytes % (Manual) Monocytes % (Manual) Platelet Estimate Large Platelets RBC Morphology Sodium Potassium Chloride Carbon Dioxide Anion Gap BUN Creatinine Est GFR ( Amer) Est GFR (Non-Af Amer) POC Glucose (mg/dL) 213 H 185 H Random Glucose Calcium Phosphorus Magnesium Total Bilirubin AST ALT Alkaline Phosphatase Total Protein Albumin Globulin Albumin/Globulin Ratio Critical Care Progress Note - Nutrition Nutrition: Nutrition Category Date Time Status Liquid Diet [DIET] Diets 12/27/17 Lunch Active Attending/Attestation - Attestation I have personally seen and examined this patient.: Yes I have fully participated in the care of the patient.: Yes I have reviewed all pertinent clinical information: Yes Notes (Text): 01/02/18 16:17 Patient seen and examined in the intensive care unit. Off BiPAP in no respiratory distress Continue IV antibiotics Tolerating feeding Non-ST elevation MD status post cardiac cath with triple-vessel disease Continue present treatment for now Physical therapy
[2018-01-02 08:20] LABS: LYMPHOCYTE 4 % (20-40); MONOCYTE 6 % (0-10); NEUTROPHIL 90 % (50-75); PLATELET ESTIMATE NORMAL (NORMAL); TOTAL CELLS COUNTED 100
[2018-01-02 08:21] LABS: LARGE PLATELETS PRESENT
--- NOTE | 2018-01-02 09:06 | CP.PCM.PN ---
<Albertina Tejada - Last Filed: 01/02/18 09:04> Subjective - Date & Time of Evaluation Date of Evaluation: 01/02/18 Time of Evaluation: 07:30 - Subjective Subjective: General surgery progress note for Dr. Villa-Albertina Tejada, PGY-1 Pt S & E at chair side. Pt resting comfortably in chair on non-rebreather. Pt continues to c/o diffuse abdominal pain, SOB, CP. Denies N & V, F & C, flatus, BM. Is refusing PT. NGT in place for tube feeds. Constantino with 50cc serous output. Objective - Vital Signs/Intake and Output Vital Signs (last 24 hours): Temp Pulse Resp BP Pulse Ox 97.3 F L 111 H 27 H 128/72 99 01/02/18 08:00 01/02/18 08:08 01/02/18 08:08 01/02/18 08:08 01/02/18 08:08 Intake and Output: 01/02/18 01/02/18 06:59 18:59 Intake Total 860 60 Output Total 850 Balance 10 60 - Medications Medications: Current Medications Albuterol/Ipratropium (Duoneb 3 Mg/0.5 Mg (3 Ml) Ud) 3 ml INH RQ6 [facility] Last Admin: 01/02/18 07:56 Dose: 3 ml Aspirin (Aspirin) 325 mg PO DAILY [facility] Last Admin: 01/01/18 10:15 Dose: 325 mg Digoxin (Lanoxin) 0.25 mg IVP DAILY@1800 [facility] Last Admin: 01/01/18 18:11 Dose: 0.25 mg Heparin Sodium (Porcine) (Heparin) 5,000 units SC Q12 [facility] Last Admin: 01/01/18 21:28 Dose: 5,000 units Metronidazole (Flagyl) 500 mg in 100 mls @ 100 mls/hr IVPB Q8H [facility] PRN Reason: Protocol Last Admin: 01/02/18 03:22 Dose: 100 mls/hr Aztreonam 1 gm/ Sodium (Chloride) 100 mls @ 100 mls/hr IVPB Q12H [facility] PRN Reason: Protocol Last Admin: 01/01/18 22:29 Dose: 100 mls/hr Vancomycin/Sodium Chloride (Vancomycin 1 Gm/Ns 200 Ml) 1 gm in 200 mls @ 166.7 mls/hr IVPB Q24H [facility] PRN Reason: Protocol Stop: 01/07/18 10:01 Insulin Detemir (Levemir) 15 unit SC Q12 [facility] Last Admin: 01/01/18 21:28 Dose: 15 unit Insulin Human Regular (Novolin R) 0 unit SC Q4H [facility] PRN Reason: Protocol Last Admin: 01/02/18 07:50 Dose: 4 unit Metoprolol Tartrate (Lopressor) 12.5 mg PO BID [facility] Last Admin: 01/01/18 18:11 Dose: 12.5 mg Morphine Sulfate (Morphine) 2 mg IVP Q4 PRN PRN Reason: Pain, severe (8-10) Last Admin: 12/29/17 07:34 Dose: 2 mg Ondansetron HCl (Zofran Inj) 4 mg IVP Q6H PRN PRN Reason: Nausea/Vomiting Oxycodone HCl (Oxycodone Immediate Release Tab) 5 mg PO Q6 PRN PRN Reason: Pain, moderate (4-7) Pantoprazole Sodium (Protonix Inj) 40 mg IVP Q12H [facility] Last Admin: 01/01/18 21:27 Dose: 40 mg Rosuvastatin Calcium (Crestor) 20 mg PO HS [facility] Last Admin: 01/01/18 21:28 Dose: 20 mg - Labs Labs: 01/02/18 06:06 01/02/18 06:07 PT 12.5 SECONDS (9.7-12.2) H 12/22/17 16:18 INR 1.1 12/22/17 16:18 APTT 48 SECONDS (21-34) H D 12/28/17 05:53 - Constitutional Appears: Non-toxic, No Acute Distress - Head Exam Head Exam: ATRAUMATIC, NORMAL INSPECTION, NORMOCEPHALIC - Eye Exam Eye Exam: EOMI, Normal appearance - ENT Exam ENT Exam: Mucous Membranes Moist, Normal Exam - Neck Exam Neck Exam: Full ROM, Normal Inspection Additional comments: LIJ TLC - Respiratory Exam Respiratory Exam: NORMAL BREATHING PATTERN - Cardiovascular Exam Cardiovascular Exam: REGULAR RHYTHM, +S1, +S2 - GI/Abdominal Exam GI & Abdominal Exam: Soft, Tenderness (Minimal over surgical incision site). absent: Distended, Firm, Guarding - Extremities Exam Extremities Exam: Normal Inspection - Neurological Exam Neurological Exam: Alert, Awake, CN II-XII Intact, Oriented x3 - Psychiatric Exam Psychiatric exam: Normal Affect, Normal Mood - Skin Skin Exam: Dry, Intact, Normal Color, Warm Assessment and Plan - Assessment and Plan (Free Text) Assessment: 77M POD#11 s/p ex-lap & Colin patch for duodenal perforation, post-op NSTEMI and pneumonia Plan: Monitor bowel function NGT for tube feeds OOBTC Encouraged to participate in PT Encourge IS use Pain control PRN Needs to be optimized for CABG Further mgmt as per primary and ICU teams Will DW attending Mallory, PGY-1 <Fred Villa B - Last Filed: 01/06/18 18:40> Objective - Vital Signs/Intake and Output Vital Signs (last 24 hours): Temp Pulse Resp BP Pulse Ox 97.1 F L 94 H 16 137/77 95 01/06/18 18:00 01/06/18 18:00 01/06/18 18:00 01/06/18 18:22 01/06/18 18:00 Intake and Output: 01/06/18 01/06/18 06:59 18:59 Intake Total 960 Output Total 300 Balance 660 - Medications Medications: Current Medications Albuterol/Ipratropium (Duoneb 3 Mg/0.5 Mg (3 Ml) Ud) 3 ml INH RQ6 [facility] Last Admin: 01/06/18 07:36 Dose: 3 ml Aspirin (Aspirin) 325 mg PO DAILY [facility] Last Admin: 01/06/18 09:52 Dose: 325 mg Heparin Sodium (Porcine) (Heparin) 5,000 units SC Q12 [facility] Last Admin: 01/06/18 09:52 Dose: 5,000 units Insulin Detemir (Levemir) 15 unit SC Q12 [facility] Last Admin: 01/06/18 09:52 Dose: 15 unit Insulin Human Regular (Novolin R) 0 unit SC Q6H [facility] PRN Reason: Protocol Last Admin: 01/06/18 18:22 Dose: 6 unit Metoprolol Tartrate (Lopressor) 25 mg PO BID [facility] Last Admin: 01/06/18 18:22 Dose: 25 mg Ondansetron HCl (Zofran Inj) 4 mg IVP Q6H PRN PRN Reason: Nausea/Vomiting Oxycodone/Acetaminophen (Percocet 5/325 Mg Tab) 1 tab PO Q4H PRN PRN Reason: Pain, moderate (4-7) Stop: 01/07/18 20:10 Last Admin: 01/05/18 04:38 Dose: 1 tab Pantoprazole Sodium (Protonix Inj) 40 mg IVP Q12H [facility] Last Admin: 01/06/18 09:51 Dose: 40 mg Rosuvastatin Calcium (Crestor) 20 mg PO HS [facility] Last Admin: 01/05/18 21:19 Dose: 20 mg Sertraline HCl (Zoloft) 25 mg PO DAILY [facility] Last Admin: 01/06/18 09:53 Dose: 25 mg Trazodone HCl (Desyrel) 25 mg PO HS [facility] Last Admin: 01/05/18 21:19 Dose: 25 mg - Labs Labs: 01/06/18 06:21 01/06/18 06:21 PT 12.5 SECONDS (9.7-12.2) H 12/22/17 16:18 INR 1.1 12/22/17 16:18 APTT 48 SECONDS (21-34) H D 12/28/17 05:53 Attending/Attestation - Attestation I have personally seen and examined this patient.: Yes I have fully participated in the care of the patient.: Yes I have reviewed all pertinent clinical information, including history, physical exam and plan: Yes Notes (Text): Pt was seen and examined at bedside Agree with above note and assessment Pt is stable Toleratin tube feed C/w IV antibiotics c/w current mx Plan d.w pt and primary team in detail
[2018-01-02] MEDS: Insulin Detemir 100 units/ml Vial (Levemir) SC SCH ×2 (09:12→21:20)
[2018-01-02] MEDS: Vancomycin 1 gm/NS 200 ml 1 GM/200 ML BAG IVPB SCH (09:30)
[2018-01-02] MEDS: Aztreonam 1 GM in Sodium Chloride 0.9% 100 ML IVPB SCH ×2 (11:21→23:00)
[2018-01-02] MEDS: Digoxin 500 mcg/2ml (0.5 mg/2ml) Inj IVP SCH (17:05)
--- NOTE | 2018-01-02 20:43 | CP.PCM.PN ---
Subjective - Date & Time of Evaluation Date of Evaluation: 01/02/18 Time of Evaluation: 18:20 - Subjective Subjective: Patient seen and examined. Patient remains with some abdominal pain from his surgery. He states that his breathing is not better Physical examination - Physical Exam Head: Positive for: Atraumatic, Normocephalic Pupils: Positive for: PERRL Extroacular Muscles: Positive for: EOMI Mouth: Positive for: Moist Mucous Membranes Nose (External): Positive for: Other (NGT in place) Neck: Positive for: Other (left IJ TLC) Respiratory/Chest: Positive for: Clear to Auscultation, Decreased Breath Sounds (at bases). Negative for: Wheezes, Rales, Rhonchi Cardiovascular: Positive for: Normal S1, S2, Irregular Rhythm, Tachycardic Abdomen: Positive for: Tenderness, Guarding, Other (Abdominal dressing clean,dry ,intact) Upper Extremity: Positive for: Normal Inspection Lower Extremity: Positive for: Normal Inspection Neurological: Positive for: GCS=15 Skin: Positive for: Warm, Dry Psychiatric: Positive for: Alert, Oriented x 3 Objective - Vital Signs/Intake and Output Vital Signs (last 24 hours): Temp Pulse Resp BP Pulse Ox 98 F 95 H 22 120/60 100 01/02/18 16:00 01/02/18 19:09 01/02/18 19:09 01/02/18 19:09 01/02/18 19:09 Intake and Output: 01/02/18 01/03/18 18:59 06:59 Intake Total 1280 30 Output Total 350 Balance 930 30 - Medications Medications: Current Medications Albuterol/Ipratropium (Duoneb 3 Mg/0.5 Mg (3 Ml) Ud) 3 ml INH RQ6 [facility] Last Admin: 01/02/18 19:54 Dose: 3 ml Aspirin (Aspirin) 325 mg PO DAILY [facility] Last Admin: 01/02/18 09:12 Dose: 325 mg Digoxin (Lanoxin) 0.25 mg IVP DAILY@1800 [facility] Last Admin: 01/02/18 17:05 Dose: 0.25 mg Heparin Sodium (Porcine) (Heparin) 5,000 units SC Q12 [facility] Last Admin: 01/02/18 09:12 Dose: 5,000 units Metronidazole (Flagyl) 500 mg in 100 mls @ 100 mls/hr IVPB Q8H [facility] PRN Reason: Protocol Last Admin: 01/02/18 18:09 Dose: 100 mls/hr Aztreonam 1 gm/ Sodium (Chloride) 100 mls @ 100 mls/hr IVPB Q12H [facility] PRN Reason: Protocol Last Admin: 01/02/18 11:21 Dose: 100 mls/hr Vancomycin/Sodium Chloride (Vancomycin 1 Gm/Ns 200 Ml) 1 gm in 200 mls @ 166.7 mls/hr IVPB Q24H [facility] PRN Reason: Protocol Stop: 01/07/18 10:01 Last Admin: 01/02/18 09:30 Dose: 166.7 mls/hr Insulin Detemir (Levemir) 15 unit SC Q12 [facility] Last Admin: 01/02/18 09:12 Dose: 15 unit Insulin Human Regular (Novolin R) 0 unit SC Q4H [facility] PRN Reason: Protocol Last Admin: 01/02/18 16:27 Dose: 2 unit Metoprolol Tartrate (Lopressor) 12.5 mg PO BID [facility] Last Admin: 01/02/18 17:05 Dose: 12.5 mg Morphine Sulfate (Morphine) 2 mg IVP Q4 PRN PRN Reason: Pain, severe (8-10) Last Admin: 12/29/17 07:34 Dose: 2 mg Ondansetron HCl (Zofran Inj) 4 mg IVP Q6H PRN PRN Reason: Nausea/Vomiting Oxycodone HCl (Oxycodone Immediate Release Tab) 5 mg PO Q6 PRN PRN Reason: Pain, moderate (4-7) Pantoprazole Sodium (Protonix Inj) 40 mg IVP Q12H [facility] Last Admin: 01/02/18 09:27 Dose: 40 mg Rosuvastatin Calcium (Crestor) 20 mg PO HS [facility] Last Admin: 01/01/18 21:28 Dose: 20 mg - Labs Labs: 01/02/18 06:06 01/02/18 06:07 PT 12.5 SECONDS (9.7-12.2) H 12/22/17 16:18 INR 1.1 12/22/17 16:18 APTT 48 SECONDS (21-34) H D 12/28/17 05:53 Assessment and Plan - Assessment and Plan (Free Text) Plan: This is a 77 year old male with PMHx diabetes, hypertension, hypercholesterolemia admitted with perforated duodenal ulcer status post exploratory laparotomy with Repair of peptic perforation with Colin patch on 18. POD #11. Patient is s/p cardiac cath which showed multi vessel disease. Patient will need CABG, but if CT surgery refuses, high risk PCI will need to be performed. Tentative plan is for CABG after improvement in patient's clinical picture. However, the current issue is failure to thrive. 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 Duoneb Q6H [facility] Incentive spirometer--however patient refuses intermittently GI Assessment: s/p Duodenal perforation, failure to thrive Liquid Diet per surgery--encouraged eating and pleasure feeds Tube feeds Protonix 40 mg IV Q12 Dietary Supplements Endocrine Assessment: DM 2 Accuchecks ACHS Novolog sliding scale ACHS Levemir 15 units SC Q12H Infectious Disease Assessment: Purulent drainage from duodenal perforation (POD #11) Azactam 1 gm IV Q12H Flagyl 500 mg IV Q8H ID on consult Prophylaxis Protonix 40 mg IV Q12 Heparin SC Q12
--- NOTE | 2018-01-02 23:50 | CP.PCM.PN ---
Subjective - Date & Time of Evaluation Date of Evaluation: 01/02/18 Time of Evaluation: 18:00 - Subjective Subjective: Pt seen and examined at bedside Objective - Vital Signs/Intake and Output Vital Signs (last 24 hours): Temp Pulse Resp BP Pulse Ox 98.7 F 93 H 18 135/76 97 01/02/18 20:00 01/02/18 23:09 01/02/18 23:09 01/02/18 23:09 01/02/18 23:09 Intake and Output: 01/02/18 01/03/18 18:59 06:59 Intake Total 1280 310 Output Total 350 Balance 930 310 - Medications Medications: Current Medications Albuterol/Ipratropium (Duoneb 3 Mg/0.5 Mg (3 Ml) Ud) 3 ml INH RQ6 [facility] Last Admin: 01/02/18 19:54 Dose: 3 ml Aspirin (Aspirin) 325 mg PO DAILY [facility] Last Admin: 01/02/18 09:12 Dose: 325 mg Digoxin (Lanoxin) 0.25 mg IVP DAILY@1800 [facility] Last Admin: 01/02/18 17:05 Dose: 0.25 mg Heparin Sodium (Porcine) (Heparin) 5,000 units SC Q12 [facility] Last Admin: 01/02/18 21:21 Dose: 5,000 units Metronidazole (Flagyl) 500 mg in 100 mls @ 100 mls/hr IVPB Q8H [facility] PRN Reason: Protocol Last Admin: 01/02/18 18:09 Dose: 100 mls/hr Aztreonam 1 gm/ Sodium (Chloride) 100 mls @ 100 mls/hr IVPB Q12H [facility] PRN Reason: Protocol Last Admin: 01/02/18 23:00 Dose: 100 mls/hr Vancomycin/Sodium Chloride (Vancomycin 1 Gm/Ns 200 Ml) 1 gm in 200 mls @ 166.7 mls/hr IVPB Q24H [facility] PRN Reason: Protocol Stop: 01/07/18 10:01 Last Admin: 01/02/18 09:30 Dose: 166.7 mls/hr Insulin Detemir (Levemir) 15 unit SC Q12 [facility] Last Admin: 01/02/18 21:20 Dose: 15 unit Insulin Human Regular (Novolin R) 0 unit SC Q4H [facility] PRN Reason: Protocol Last Admin: 01/02/18 20:00 Dose: 4 unit Metoprolol Tartrate (Lopressor) 12.5 mg PO BID [facility] Last Admin: 01/02/18 17:05 Dose: 12.5 mg Morphine Sulfate (Morphine) 2 mg IVP Q4 PRN PRN Reason: Pain, severe (8-10) Last Admin: 12/29/17 07:34 Dose: 2 mg Ondansetron HCl (Zofran Inj) 4 mg IVP Q6H PRN PRN Reason: Nausea/Vomiting Oxycodone HCl (Oxycodone Immediate Release Tab) 5 mg PO Q6 PRN PRN Reason: Pain, moderate (4-7) Pantoprazole Sodium (Protonix Inj) 40 mg IVP Q12H [facility] Last Admin: 01/02/18 21:22 Dose: 40 mg Rosuvastatin Calcium (Crestor) 20 mg PO HS [facility] Last Admin: 01/02/18 21:21 Dose: 20 mg - Labs Labs: 01/02/18 06:06 01/02/18 06:07 PT 12.5 SECONDS (9.7-12.2) H 12/22/17 16:18 INR 1.1 12/22/17 16:18 APTT 48 SECONDS (21-34) H D 12/28/17 05:53 Assessment and Plan (1) Perforated abdominal viscus Status: Acute (2) Diabetes mellitus Status: Acute (3) GERD (gastroesophageal reflux disease) Status: Acute (4) Acute non-ST elevation myocardial infarction (NSTEMI) Status: Acute
[2018-01-03] MEDS: Albuterol-Ipratrop 3 mg / 0.5 (3 ml) UD INH SCH ×4 (01:32→19:28)
[2018-01-03] MEDS: metroNIDAZOLE IV 500 mg/100 ml 500 MG/100 ML BAG IVPB SCH ×3 (02:58→18:32)
[2018-01-03] MEDS: Morphine 4 MG/ML VIAL IVP PRN (03:33)
[2018-01-03] MEDS: (Novolin R) Insulin Human Regular 100 units/ml vial SC SCH ×6 (04:00→20:00)
[2018-01-03 06:38] LABS: BASO % 0.4 % (0.0-2.0); EOS # 0.1 K/uL (0.0-0.7); HEMOGLOBIN 9.1 g/dL (12.0-18.0); LYMPH # 0.6 K/uL (1.0-4.3); LYMPH % 4.8 % (20.0-40.0); MEAN CELL VOLUME 91.4 fL (80.0-94.0); MEAN CORPUSCULAR HEMOGLOBIN 29.3 pg (27.0-31.0); MEAN CORPUSCULAR HGB CONC 32.1 g/dL (33.0-37.0); MEAN PLATELET VOLUME 9.9 fL (7.2-11.7); MONO # 0.8 K/uL (0.0-0.8); MONO % 6.5 % (0.0-10.0); NEUT # 10.1 K/uL (1.8-7.0); NEUT % 87.3 % (50.0-75.0); PLATELET COUNT 394 K/uL (130-400); RBC 3.09 Mil/uL (4.40-5.90); RED CELL DISTRIBUTION WIDTH 13.5 % (11.5-14.5); WHITE BLOOD COUNT 11.6 K/uL (4.8-10.8)
[2018-01-03 06:53] LABS: ALB/GLOB RATIO 0.8 (1.0-2.1); ALBUMIN 2.4 g/dL (3.5-5.0); ALT/SGPT 19 U/L (21-72); AST/SGOT 29 U/L (17-59); BLOOD UREA NITROGEN 34 mg/dL (9-20); CALCIUM 9.5 mg/dl (8.6-10.4); GFR AFRICAN-AMERICAN > 60; GFR NON-AFRICAN AMERICAN > 60
[2018-01-03] MEDS: Insulin Detemir 100 units/ml Vial (Levemir) SC SCH ×2 (10:10→22:40)
[2018-01-03] MEDS: Aztreonam 1 GM in Sodium Chloride 0.9% 100 ML IVPB SCH (10:13)
[2018-01-03] MEDS: Vancomycin 1 gm/NS 200 ml 1 GM/200 ML BAG IVPB SCH (10:27)
--- NOTE | 2018-01-03 10:54 | CP.CCUPN ---
<Clement Vincent - Last Filed: 01/03/18 10:48> CCU Subjective - Physician Review Subjective (Free Text): 01/01/18 08:31 Patient seen and examined. Patient remains with some abdominal pain from his surgery. He states that his breathing is so-so. 01/02/18 08:09 Patient seen and examined. Patient complaining of general malaise. He was again encouraged not to refuse physical therapy. 01/03/18 10:48 Patient seen and examined. Patient has no new complaints at this time. CCU Objective - Vital Signs / Intake & Output Vital Signs (Last 4 hours): Vital Signs Temp Pulse Resp BP Pulse Ox 01/03/18 10:19 120 H 29 H 117/69 97 01/03/18 10:00 108 H 25 H 99 01/03/18 09:13 114 H 30 H 112/68 93 L 01/03/18 09:00 110 H 26 H 93 L 01/03/18 08:13 117 H 19 116/64 94 L 01/03/18 08:00 98.3 F 111 H 20 97 01/03/18 07:13 113/65 01/03/18 07:00 100 H 16 98 Intake and Output (Last 8hrs): Intake & Output 01/02/18 01/03/18 01/03/18 22:59 06:59 14:59 Intake Total 650 440 80 Output Total 350 1450 Balance 300 -1010 80 Intake: Intake, IV Amount 100 200 Left Proximal Port 100 200 Internal Jugular Oral 110 20 Tube Feeding 240 240 60 Other 200 Output: Drainage 50 Right Lower Abdomen 50 Urine 350 1400 Urine, Voided 350 1400 Other: # Bowel Movements 1 - Physical Exam Head: Positive for: Atraumatic, Normocephalic Pupils: Positive for: PERRL Extroacular Muscles: Positive for: EOMI Mouth: Positive for: Moist Mucous Membranes Nose (External): Positive for: Other (NGT in place) Neck: Positive for: Other (left IJ TLC) Respiratory/Chest: Positive for: Clear to Auscultation, Decreased Breath Sounds (at bases). Negative for: Wheezes, Rales, Rhonchi Cardiovascular: Positive for: Normal S1, S2, Irregular Rhythm, Tachycardic Abdomen: Positive for: Tenderness, Guarding, Other (Abdominal dressing clean,dry ,intact) Upper Extremity: Positive for: Normal Inspection Lower Extremity: Positive for: Normal Inspection Neurological: Positive for: GCS=15 Skin: Positive for: Warm, Dry Psychiatric: Positive for: Alert, Oriented x 3 - Medications Active Medications: Active Medications Generic Name Dose Route Start Last Admin Trade Name Freq PRN Reason Stop Dose Admin Albuterol/Ipratropium 3 ml 12/28/17 14:00 01/03/18 07:20 Duoneb 3 Mg/0.5 Mg (3 Ml) Ud INH 3 ml RQ6 KAROLINE Administration Aspirin 325 mg 12/29/17 10:00 01/03/18 10:12 Aspirin PO 325 mg DAILY KAROLINE Administration Digoxin 0.25 mg 12/27/17 18:00 01/02/18 17:05 Lanoxin IVP 0.25 mg DAILY@1800 KAROLINE Administration Heparin Sodium (Porcine) 5,000 units 01/01/18 10:00 01/03/18 10:09 Heparin SC 5,000 units Q12 KAROLINE Administration Metronidazole 500 mg in 100 mls @ 100 mls/hr 12/23/17 03:00 01/03/18 10:12 Flagyl IVPB 100 mls/hr Q8H KAROLINE Administration Protocol Aztreonam 1 gm/ Sodium 100 mls @ 100 mls/hr 12/27/17 11:00 01/03/18 10:13 Chloride IVPB 100 mls/hr Q12H KAROLINE Administration Protocol Vancomycin/Sodium Chloride 1 gm in 200 mls @ 166.7 mls/hr 01/02/18 10:00 10:27 Vancomycin 1 Gm/Ns 200 Ml IVPB 01/07/18 10:01 166.7 mls/hr Q24H KAROLINE Administration Protocol Insulin Detemir 15 unit 12/31/17 10:00 01/03/18 10:10 Levemir SC 15 unit Q12 KAROLINE Administration Insulin Human Regular 0 unit 12/31/17 12:00 01/03/18 08:00 Novolin R SC 2 unit Q4H KAROLINE Administration Protocol Metoprolol Tartrate 12.5 mg 12/29/17 11:00 01/03/18 10:12 Lopressor PO 12.5 mg BID KAROLINE Administration Morphine Sulfate 2 mg 12/25/17 07:43 01/03/18 03:33 Morphine IVP 2 mg Q4 PRN Administration Pain, severe (8-10) Ondansetron HCl 4 mg 12/22/17 16:46 Zofran Inj IVP Q6H PRN Nausea/Vomiting Oxycodone HCl 5 mg 12/30/17 19:24 Oxycodone Immediate Release Tab PO Q6 PRN Pain, moderate (4-7) Pantoprazole Sodium 40 mg 12/22/17 22:15 01/03/18 10:10 Protonix Inj IVP 40 mg Q12H KAROLINE Administration Rosuvastatin Calcium 20 mg 12/28/17 22:00 01/02/18 21:21 Crestor PO 20 mg HS KAROLINE Administration - Patient Studies Lab Studies: Lab Studies 01/03/18 01/03/18 01/03/18 Range/Units 07:57 06:28 06:28 WBC 11.6 H (4.8-10.8) K/uL RBC 3.09 L (4.40-5.90) Mil/uL Hgb 9.1 L (12.0-18.0) g/dL Hct 28.3 L (35.0-51.0) % MCV 91.4 (80.0-94.0) fL MCH 29.3 (27.0-31.0) pg MCHC 32.1 L (33.0-37.0) g/dL RDW 13.5 (11.5-14.5) % Plt Count 394 (130-400) K/uL MPV 9.9 (7.2-11.7) fL Neut % (Auto) 87.3 H (50.0-75.0) % Lymph % (Auto) 4.8 L (20.0-40.0) % [place] % (Auto) 6.5 (0.0-10.0) % Eos % (Auto) 1.0 (0.0-4.0) % Baso % (Auto) 0.4 (0.0-2.0) % Neut # (Auto) 10.1 H (1.8-7.0) K/uL Lymph # (Auto) 0.6 L (1.0-4.3) K/uL [place] # (Auto) 0.8 (0.0-0.8) K/uL Eos # (Auto) 0.1 (0.0-0.7) K/uL Baso # (Auto) 0.0 (0.0-0.2) K/uL Sodium 152 H (132-148) mmol/L Potassium 3.6 (3.6-5.2) mmol/L Chloride 115 H (98-107) mmol/L Carbon Dioxide 27 (22-30) mmol/L Anion Gap 15 (10-20) BUN 34 H (9-20) mg/dL Creatinine 1.1 (0.8-1.5) mg/dL Est GFR ( Amer) > 60 Est GFR (Non-Af Amer) > 60 POC Glucose (mg/dL) 157 H (65-110) mg/dL Random Glucose 110 (75-110) mg/dL Calcium 9.5 (8.6-10.4) mg/dl Phosphorus 2.7 (2.5-4.5) mg/dL Magnesium 1.6 (1.6-2.3) mg/dL Total Bilirubin 0.3 (0.2-1.3) mg/dL AST 29 (17-59) U/L ALT 19 L (21-72) U/L Alkaline Phosphatase 95 (38-126) U/L Total Protein 5.6 L (6.3-8.3) g/dL Albumin 2.4 L (3.5-5.0) g/dL Globulin 3.1 (2.2-3.9) gm/dL Albumin/Globulin Ratio 0.8 L (1.0-2.1) 01/03/18 01/02/18 01/02/18 Range/Units 05:02 23:26 19:58 WBC (4.8-10.8) K/uL RBC (4.40-5.90) Mil/uL Hgb (12.0-18.0) g/dL Hct (35.0-51.0) % MCV (80.0-94.0) fL MCH (27.0-31.0) pg MCHC (33.0-37.0) g/dL RDW (11.5-14.5) % Plt Count (130-400) K/uL MPV (7.2-11.7) fL Neut % (Auto) (50.0-75.0) % Lymph % (Auto) (20.0-40.0) % [place] % (Auto) (0.0-10.0) % Eos % (Auto) (0.0-4.0) % Baso % (Auto) (0.0-2.0) % Neut # (Auto) (1.8-7.0) K/uL Lymph # (Auto) (1.0-4.3) K/uL [place] # (Auto) (0.0-0.8) K/uL Eos # (Auto) (0.0-0.7) K/uL Baso # (Auto) (0.0-0.2) K/uL Sodium (132-148) mmol/L Potassium (3.6-5.2) mmol/L Chloride (98-107) mmol/L Carbon Dioxide (22-30) mmol/L Anion Gap (10-20) BUN (9-20) mg/dL Creatinine (0.8-1.5) mg/dL Est GFR ( Amer) Est GFR (Non-Af Amer) POC Glucose (mg/dL) 127 H 226 H 207 H (65-110) mg/dL Random Glucose (75-110) mg/dL Calcium (8.6-10.4) mg/dl Phosphorus (2.5-4.5) mg/dL Magnesium (1.6-2.3) mg/dL Total Bilirubin (0.2-1.3) mg/dL AST (17-59) U/L ALT (21-72) U/L Alkaline Phosphatase (38-126) U/L Total Protein (6.3-8.3) g/dL Albumin (3.5-5.0) g/dL Globulin (2.2-3.9) gm/dL Albumin/Globulin Ratio (1.0-2.1) 01/02/18 01/02/18 Range/Units 15:53 12:01 WBC (4.8-10.8) K/uL RBC (4.40-5.90) Mil/uL Hgb (12.0-18.0) g/dL Hct (35.0-51.0) % MCV (80.0-94.0) fL MCH (27.0-31.0) pg MCHC (33.0-37.0) g/dL RDW (11.5-14.5) % Plt Count (130-400) K/uL MPV (7.2-11.7) fL Neut % (Auto) (50.0-75.0) % Lymph % (Auto) (20.0-40.0) % [place] % (Auto) (0.0-10.0) % Eos % (Auto) (0.0-4.0) % Baso % (Auto) (0.0-2.0) % Neut # (Auto) (1.8-7.0) K/uL Lymph # (Auto) (1.0-4.3) K/uL [place] # (Auto) (0.0-0.8) K/uL Eos # (Auto) (0.0-0.7) K/uL Baso # (Auto) (0.0-0.2) K/uL Sodium (132-148) mmol/L Potassium (3.6-5.2) mmol/L Chloride (98-107) mmol/L Carbon Dioxide (22-30) mmol/L Anion Gap (10-20) BUN (9-20) mg/dL Creatinine (0.8-1.5) mg/dL Est GFR ( Amer) Est GFR (Non-Af Amer) POC Glucose (mg/dL) 185 H 213 H (65-110) mg/dL Random Glucose (75-110) mg/dL Calcium (8.6-10.4) mg/dl Phosphorus (2.5-4.5) mg/dL Magnesium (1.6-2.3) mg/dL Total Bilirubin (0.2-1.3) mg/dL AST (17-59) U/L ALT (21-72) U/L Alkaline Phosphatase (38-126) U/L Total Protein (6.3-8.3) g/dL Albumin (3.5-5.0) g/dL Globulin (2.2-3.9) gm/dL Albumin/Globulin Ratio (1.0-2.1) Laboratory Results - last 24 hr 01/02/18 01/02/18 01/02/18 12:01 15:53 19:58 WBC RBC Hgb Hct MCV MCH MCHC RDW Plt Count MPV Neut % (Auto) Lymph % (Auto) [place] % (Auto) Eos % (Auto) Baso % (Auto) Neut # (Auto) Lymph # (Auto) [place] # (Auto) Eos # (Auto) Baso # (Auto) Sodium Potassium Chloride Carbon Dioxide Anion Gap BUN Creatinine Est GFR ( Amer) Est GFR (Non-Af Amer) POC Glucose (mg/dL) 213 H 185 H 207 H Random Glucose Calcium Phosphorus Magnesium Total Bilirubin AST ALT Alkaline Phosphatase Total Protein Albumin Globulin Albumin/Globulin Ratio 01/02/18 01/03/18 01/03/18 23:26 05:02 06:28 WBC 11.6 H RBC 3.09 L Hgb 9.1 L Hct 28.3 L MCV 91.4 MCH 29.3 MCHC 32.1 L RDW 13.5 Plt Count 394 MPV 9.9 Neut % (Auto) 87.3 H Lymph % (Auto) 4.8 L [place] % (Auto) 6.5 Eos % (Auto) 1.0 Baso % (Auto) 0.4 Neut # (Auto) 10.1 H Lymph # (Auto) 0.6 L [place] # (Auto) 0.8 Eos # (Auto) 0.1 Baso # (Auto) 0.0 Sodium Potassium Chloride Carbon Dioxide Anion Gap BUN Creatinine Est GFR ( Amer) Est GFR (Non-Af Amer) POC Glucose (mg/dL) 226 H 127 H Random Glucose Calcium Phosphorus Magnesium Total Bilirubin AST ALT Alkaline Phosphatase Total Protein Albumin Globulin Albumin/Globulin Ratio 01/03/18 01/03/18 06:28 07:57 WBC RBC Hgb Hct MCV MCH MCHC RDW Plt Count MPV Neut % (Auto) Lymph % (Auto) [place] % (Auto) Eos % (Auto) Baso % (Auto) Neut # (Auto) Lymph # (Auto) [place] # (Auto) Eos # (Auto) Baso # (Auto) Sodium 152 H Potassium 3.6 Chloride 115 H Carbon Dioxide 27 Anion Gap 15 BUN 34 H Creatinine 1.1 Est GFR ( Amer) > 60 Est GFR (Non-Af Amer) > 60 POC Glucose (mg/dL) 157 H Random Glucose 110 Calcium 9.5 Phosphorus 2.7 Magnesium 1.6 Total Bilirubin 0.3 AST 29 ALT 19 L Alkaline Phosphatase 95 Total Protein 5.6 L Albumin 2.4 L Globulin 3.1 Albumin/Globulin Ratio 0.8 L Fingerstick Blood Sugar Results: 157 Critical Care Progress Note - Nutrition Nutrition: Nutrition Category Date Time Status Liquid Diet [DIET] Diets 12/27/17 Lunch Active Assessment/Plan - Assessment and Plan (Free Text) Assessment: This is a 77 year old male with PMHx diabetes, hypertension, hypercholesterolemia admitted with perforated duodenal ulcer status post exploratory laparotomy with Repair of peptic perforation with Colin patch on . POD #12. Patient is s/p cardiac cath which showed multi vessel disease. Patient will need CABG, but if CT surgery refuses, high risk PCI will need to be performed. Tentative plan is for CABG after improvement in patient's clinical picture. However, the current issue is failure to thrive. 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 Duoneb Q6H KAROLINE Incentive spirometer--however patient refuses intermittently GI Assessment: s/p Duodenal perforation, failure to thrive Liquid Diet per surgery--encouraged eating and pleasure feeds Tube feeds Protonix 40 mg IV Q12 Dietary Supplements Endocrine Assessment: DM 2 Accuchecks ACHS Novolog sliding scale ACHS Levemir 15 units SC Q12H Infectious Disease Assessment: Purulent drainage from duodenal perforation (POD #12) Azactam 1 gm IV Q12H Flagyl 500 mg IV Q8H ID on consult Prophylaxis Protonix 40 mg IV Q12 Heparin SC Q12 Disposition: Will remove TLC and downgrade to telemetry. Discussed with Dr. Faye <Obed Faye S - Last Filed: 01/03/18 15:40> CCU Objective - Vital Signs / Intake & Output Vital Signs (Last 4 hours): Vital Signs Temp Pulse Resp BP Pulse Ox 01/03/18 14:00 96 H 21 99 01/03/18 13:13 96 H 19 136/67 95 01/03/18 13:00 92 H 16 96 01/03/18 12:13 97 H 22 133/76 98 01/03/18 12:00 98.8 F 95 H 22 98 Intake and Output (Last 8hrs): Intake & Output 01/03/18 01/03/18 01/03/18 06:59 14:59 22:59 Intake Total 440 860 Output Total 1450 200 Balance -1010 660 Intake: Intake, IV Amount 200 400 Left Proximal Port 200 400 Internal Jugular Oral 120 Tube Feeding 240 240 Other 100 Output: Drainage 50 Right Lower Abdomen 50 Urine 1400 200 Urine, Voided 1400 200 Other: # Bowel Movements 1 1 - Medications Active Medications: Active Medications Generic Name Dose Route Start Last Admin Trade Name Elizabeth PRN Reason Stop Dose Admin Albuterol/Ipratropium 3 ml 12/28/17 14:00 01/03/18 13:33 Duoneb 3 Mg/0.5 Mg (3 Ml) Ud INH 3 ml RQ6 KAROLINE Administration Aspirin 325 mg 12/29/17 10:00 01/03/18 10:12 Aspirin PO 325 mg DAILY KAROLINE Administration Digoxin 0.25 mg 12/27/17 18:00 01/02/18 17:05 Lanoxin IVP 0.25 mg DAILY@1800 KAROLINE Administration Heparin Sodium (Porcine) 5,000 units 01/01/18 10:00 01/03/18 10:09 Heparin SC 5,000 units Q12 KAROLINE Administration Metronidazole 500 mg in 100 mls @ 100 mls/hr 12/23/17 03:00 01/03/18 10:12 Flagyl IVPB 100 mls/hr Q8H KAROLINE Administration Protocol Aztreonam 1 gm/ Sodium 100 mls @ 100 mls/hr 12/27/17 11:00 01/03/18 10:13 Chloride IVPB 100 mls/hr Q12H KAROLINE Administration Protocol Vancomycin/Sodium Chloride 1 gm in 200 mls @ 166.7 mls/hr 01/02/18 10:00 10:27 Vancomycin 1 Gm/Ns 200 Ml IVPB 01/07/18 10:01 166.7 mls/hr Q24H KAROLINE Administration Protocol Insulin Detemir 15 unit 12/31/17 10:00 01/03/18 10:10 Levemir SC 15 unit Q12 KAROLINE Administration Insulin Human Regular 0 unit 12/31/17 12:00 01/03/18 12:53 Novolin R SC 2 unit Q4H KAROLINE Administration Protocol Metoprolol Tartrate 12.5 mg 12/29/17 11:00 01/03/18 10:12 Lopressor PO 12.5 mg BID KAROLINE Administration Morphine Sulfate 2 mg 12/25/17 07:43 01/03/18 03:33 Morphine IVP 2 mg Q4 PRN Administration Pain, severe (8-10) Ondansetron HCl 4 mg 12/22/17 16:46 Zofran Inj IVP Q6H PRN Nausea/Vomiting Oxycodone HCl 5 mg 12/30/17 19:24 Oxycodone Immediate Release Tab PO Q6 PRN Pain, moderate (4-7) Pantoprazole Sodium 40 mg 12/22/17 22:15 01/03/18 10:10 Protonix Inj IVP 40 mg Q12H KAROLINE Administration Rosuvastatin Calcium 20 mg 12/28/17 22:00 01/02/18 21:21 Crestor PO 20 mg HS KAROLINE Administration Sertraline HCl 25 mg 01/03/18 12:30 01/03/18 13:53 Zoloft PO 25 mg DAILY KAROLINE Administration Trazodone HCl 25 mg 01/03/18 22:00 Desyrel PO HS KAROLINE - Patient Studies Lab Studies: Lab Studies 01/03/18 01/03/18 01/03/18 Range/Units 11:25 07:57 06:28 WBC (4.8-10.8) K/uL RBC (4.40-5.90) Mil/uL Hgb (12.0-18.0) g/dL Hct (35.0-51.0) % MCV (80.0-94.0) fL MCH (27.0-31.0) pg MCHC (33.0-37.0) g/dL RDW (11.5-14.5) % Plt Count (130-400) K/uL MPV (7.2-11.7) fL Neut % (Auto) (50.0-75.0) % Lymph % (Auto) (20.0-40.0) % [place] % (Auto) (0.0-10.0) % Eos % (Auto) (0.0-4.0) % Baso % (Auto) (0.0-2.0) % Neut # (Auto) (1.8-7.0) K/uL Lymph # (Auto) (1.0-4.3) K/uL [place] # (Auto) (0.0-0.8) K/uL Eos # (Auto) (0.0-0.7) K/uL Baso # (Auto) (0.0-0.2) K/uL Neutrophils % (Manual) (50-75) % Band Neutrophils % (0-2) % Lymphocytes % (Manual) (20-40) % Monocytes % (Manual) (0-10) % Eosinophils % (Manual) (0-4) % Platelet Estimate (NORMAL) Hypochromasia (manual) Sodium 152 H (132-148) mmol/L Potassium 3.6 (3.6-5.2) mmol/L Chloride 115 H (98-107) mmol/L Carbon Dioxide 27 (22-30) mmol/L Anion Gap 15 (10-20) BUN 34 H (9-20) mg/dL Creatinine 1.1 (0.8-1.5) mg/dL Est GFR ( Amer) > 60 Est GFR (Non-Af Amer) > 60 POC Glucose (mg/dL) 184 H 157 H (65-110) mg/dL Random Glucose 110 (75-110) mg/dL Calcium 9.5 (8.6-10.4) mg/dl Phosphorus 2.7 (2.5-4.5) mg/dL Magnesium 1.6 (1.6-2.3) mg/dL Total Bilirubin 0.3 (0.2-1.3) mg/dL AST 29 (17-59) U/L ALT 19 L (21-72) U/L Alkaline Phosphatase 95 (38-126) U/L Total Protein 5.6 L (6.3-8.3) g/dL Albumin 2.4 L (3.5-5.0) g/dL Globulin 3.1 (2.2-3.9) gm/dL Albumin/Globulin Ratio 0.8 L (1.0-2.1) 01/03/18 01/03/18 01/02/18 Range/Units 06:28 05:02 23:26 WBC 11.6 H (4.8-10.8) K/uL RBC 3.09 L (4.40-5.90) Mil/uL Hgb 9.1 L (12.0-18.0) g/dL Hct 28.3 L (35.0-51.0) % MCV 91.4 (80.0-94.0) fL MCH 29.3 (27.0-31.0) pg MCHC 32.1 L (33.0-37.0) g/dL RDW 13.5 (11.5-14.5) % Plt Count 394 (130-400) K/uL MPV 9.9 (7.2-11.7) fL Neut % (Auto) 87.3 H (50.0-75.0) % Lymph % (Auto) 4.8 L (20.0-40.0) % [place] % (Auto) 6.5 (0.0-10.0) % Eos % (Auto) 1.0 (0.0-4.0) % Baso % (Auto) 0.4 (0.0-2.0) % Neut # (Auto) 10.1 H (1.8-7.0) K/uL Lymph # (Auto) 0.6 L (1.0-4.3) K/uL [place] # (Auto) 0.8 (0.0-0.8) K/uL Eos # (Auto) 0.1 (0.0-0.7) K/uL Baso # (Auto) 0.0 (0.0-0.2) K/uL Neutrophils % (Manual) 84 H (50-75) % Band Neutrophils % 3 H (0-2) % Lymphocytes % (Manual) 5 L (20-40) % Monocytes % (Manual) 6 (0-10) % Eosinophils % (Manual) 2 (0-4) % Platelet Estimate Normal (NORMAL) Hypochromasia (manual) Slight Sodium (132-148) mmol/L Potassium (3.6-5.2) mmol/L Chloride (98-107) mmol/L Carbon Dioxide (22-30) mmol/L Anion Gap (10-20) BUN (9-20) mg/dL Creatinine (0.8-1.5) mg/dL Est GFR ( Amer) Est GFR (Non-Af Amer) POC Glucose (mg/dL) 127 H 226 H (65-110) mg/dL Random Glucose (75-110) mg/dL Calcium (8.6-10.4) mg/dl Phosphorus (2.5-4.5) mg/dL Magnesium (1.6-2.3) mg/dL Total Bilirubin (0.2-1.3) mg/dL AST (17-59) U/L ALT (21-72) U/L Alkaline Phosphatase (38-126) U/L Total Protein (6.3-8.3) g/dL Albumin (3.5-5.0) g/dL Globulin (2.2-3.9) gm/dL Albumin/Globulin Ratio (1.0-2.1) 01/02/18 01/02/18 Range/Units 19:58 15:53 WBC (4.8-10.8) K/uL RBC (4.40-5.90) Mil/uL Hgb (12.0-18.0) g/dL Hct (35.0-51.0) % MCV (80.0-94.0) fL MCH (27.0-31.0) pg MCHC (33.0-37.0) g/dL RDW (11.5-14.5) % Plt Count (130-400) K/uL MPV (7.2-11.7) fL Neut % (Auto) (50.0-75.0) % Lymph % (Auto) (20.0-40.0) % [place] % (Auto) (0.0-10.0) % Eos % (Auto) (0.0-4.0) % Baso % (Auto) (0.0-2.0) % Neut # (Auto) (1.8-7.0) K/uL Lymph # (Auto) (1.0-4.3) K/uL [place] # (Auto) (0.0-0.8) K/uL Eos # (Auto) (0.0-0.7) K/uL Baso # (Auto) (0.0-0.2) K/uL Neutrophils % (Manual) (50-75) % Band Neutrophils % (0-2) % Lymphocytes % (Manual) (20-40) % Monocytes % (Manual) (0-10) % Eosinophils % (Manual) (0-4) % Platelet Estimate (NORMAL) Hypochromasia (manual) Sodium (132-148) mmol/L Potassium (3.6-5.2) mmol/L Chloride (98-107) mmol/L Carbon Dioxide (22-30) mmol/L Anion Gap (10-20) BUN (9-20) mg/dL Creatinine (0.8-1.5) mg/dL Est GFR ( Amer) Est GFR (Non-Af Amer) POC Glucose (mg/dL) 207 H 185 H (65-110) mg/dL Random Glucose (75-110) mg/dL Calcium (8.6-10.4) mg/dl Phosphorus (2.5-4.5) mg/dL Magnesium (1.6-2.3) mg/dL Total Bilirubin (0.2-1.3) mg/dL AST (17-59) U/L ALT (21-72) U/L Alkaline Phosphatase (38-126) U/L Total Protein (6.3-8.3) g/dL Albumin (3.5-5.0) g/dL Globulin (2.2-3.9) gm/dL Albumin/Globulin Ratio (1.0-2.1) Laboratory Results - last 24 hr 01/02/18 01/02/18 01/02/18 15:53 19:58 23:26 WBC RBC Hgb Hct MCV MCH MCHC RDW Plt Count MPV Neut % (Auto) Lymph % (Auto) [place] % (Auto) Eos % (Auto) Baso % (Auto) Neut # (Auto) Lymph # (Auto) [place] # (Auto) Eos # (Auto) Baso # (Auto) Neutrophils % (Manual) Band Neutrophils % Lymphocytes % (Manual) Monocytes % (Manual) Eosinophils % (Manual) Platelet Estimate Hypochromasia (manual) Sodium Potassium Chloride Carbon Dioxide Anion Gap BUN Creatinine Est GFR ( Amer) Est GFR (Non-Af Amer) POC Glucose (mg/dL) 185 H 207 H 226 H Random Glucose Calcium Phosphorus Magnesium Total Bilirubin AST ALT Alkaline Phosphatase Total Protein Albumin Globulin Albumin/Globulin Ratio 01/03/18 01/03/18 01/03/18 05:02 06:28 06:28 WBC 11.6 H RBC 3.09 L Hgb 9.1 L Hct 28.3 L MCV 91.4 MCH 29.3 MCHC 32.1 L RDW 13.5 Plt Count 394 MPV 9.9 Neut % (Auto) 87.3 H Lymph % (Auto) 4.8 L [place] % (Auto) 6.5 Eos % (Auto) 1.0 Baso % (Auto) 0.4 Neut # (Auto) 10.1 H Lymph # (Auto) 0.6 L [place] # (Auto) 0.8 Eos # (Auto) 0.1 Baso # (Auto) 0.0 Neutrophils % (Manual) 84 H Band Neutrophils % 3 H Lymphocytes % (Manual) 5 L Monocytes % (Manual) 6 Eosinophils % (Manual) 2 Platelet Estimate Normal Hypochromasia (manual) Slight Sodium 152 H Potassium 3.6 Chloride 115 H Carbon Dioxide 27 Anion Gap 15 BUN 34 H Creatinine 1.1 Est GFR ( Amer) > 60 Est GFR (Non-Af Amer) > 60 POC Glucose (mg/dL) 127 H Random Glucose 110 Calcium 9.5 Phosphorus 2.7 Magnesium 1.6 Total Bilirubin 0.3 AST 29 ALT 19 L Alkaline Phosphatase 95 Total Protein 5.6 L Albumin 2.4 L Globulin 3.1 Albumin/Globulin Ratio 0.8 L 01/03/18 01/03/18 07:57 11:25 WBC RBC Hgb Hct MCV MCH MCHC RDW Plt Count MPV Neut % (Auto) Lymph % (Auto) [place] % (Auto) Eos % (Auto) Baso % (Auto) Neut # (Auto) Lymph # (Auto) [place] # (Auto) Eos # (Auto) Baso # (Auto) Neutrophils % (Manual) Band Neutrophils % Lymphocytes % (Manual) Monocytes % (Manual) Eosinophils % (Manual) Platelet Estimate Hypochromasia (manual) Sodium Potassium Chloride Carbon Dioxide Anion Gap BUN Creatinine Est GFR ( Amer) Est GFR (Non-Af Amer) POC Glucose (mg/dL) 157 H 184 H Random Glucose Calcium Phosphorus Magnesium Total Bilirubin AST ALT Alkaline Phosphatase Total Protein Albumin Globulin Albumin/Globulin Ratio Critical Care Progress Note - Nutrition Nutrition: Nutrition Category Date Time Status Liquid Diet [DIET] Diets 12/27/17 Lunch Active Attending/Attestation - Attestation I have personally seen and examined this patient.: Yes I have fully participated in the care of the patient.: Yes I have reviewed all pertinent clinical information: Yes Notes (Text): 01/03/18 15:38 Patient seen and examined in the intensive care unit. Case discussed with house staff in the morning. Seen by psychiatry for possible depression Started on clear liquid Stable for transfer to floor Continue present treatment
[2018-01-03 12:19] LABS: BANDS 3 % (0-2); EOSINOPHIL 2 % (0-4); LYMPHOCYTE 5 % (20-40); MONOCYTE 6 % (0-10); NEUTROPHIL 84 % (50-75); PLATELET ESTIMATE NORMAL (NORMAL); TOTAL CELLS COUNTED 100
[2018-01-03 12:20] LABS: HYPOCHROMIC SLIGHT
--- NOTE | 2018-01-03 12:26 | PCM.PSYCH ---
Initial Psychiatric Evaluation - Initial Psychiatric Evaluation Type of Admission: Voluntary Legal Status: Capacity Chief Complaint (in patient's own words): I am feeling depressed.' History of Present Illness and Precipitating Events: Pt is a 77 y/o male with history of DM and High Cholesterol presents to ED with complaints of abdominal pain, vomiting and decreased appetite. Pt was operated. Pt appeared very depressed soon after operation. Today pt was consulted for depressed mood. As per the staff, pt became isolated, depressed and withdrawn. He reports depressed mood and reports feelings of hopelessness and helplessness. He also reports difficulty in going to sleep. However he denies any suicidal ideation or any homicidal ideation. He denies any auditory or visual hallucinations or any paranoia. He denies any drinking or any substance abuse. Current Medications: Active Medications Generic Name Dose Route Start Last Admin Trade Name Stevenq PRN Reason Stop Dose Admin Albuterol/Ipratropium 3 ml 12/28/17 14:00 01/03/18 07:20 Duoneb 3 Mg/0.5 Mg (3 Ml) Ud INH 3 ml RQ6 [facility] Administration Aspirin 325 mg 12/29/17 10:00 01/03/18 10:12 Aspirin PO 325 mg DAILY [facility] Administration Digoxin 0.25 mg 12/27/17 18:00 01/02/18 17:05 Lanoxin IVP 0.25 mg DAILY@1800 [facility] Administration Heparin Sodium (Porcine) 5,000 units 01/01/18 10:00 01/03/18 10:09 Heparin SC 5,000 units Q12 [facility] Administration Metronidazole 500 mg in 100 mls @ 100 mls/hr 12/23/17 03:00 01/03/18 10:12 Flagyl IVPB 100 mls/hr Q8H [facility] Administration Protocol Aztreonam 1 gm/ Sodium 100 mls @ 100 mls/hr 12/27/17 11:00 01/03/18 10:13 Chloride IVPB 100 mls/hr Q12H [facility] Administration Protocol Vancomycin/Sodium Chloride 1 gm in 200 mls @ 166.7 mls/hr 01/02/18 10:00 10:27 Vancomycin 1 Gm/Ns 200 Ml IVPB 01/07/18 10:01 166.7 mls/hr Q24H [facility] Administration Protocol Insulin Detemir 15 unit 12/31/17 10:00 01/03/18 10:10 Levemir SC 15 unit Q12 [facility] Administration Insulin Human Regular 0 unit 12/31/17 12:00 01/03/18 08:00 Novolin R SC 2 unit Q4H [facility] Administration Protocol Metoprolol Tartrate 12.5 mg 12/29/17 11:00 01/03/18 10:12 Lopressor PO 12.5 mg BID [facility] Administration Morphine Sulfate 2 mg 12/25/17 07:43 01/03/18 03:33 Morphine IVP 2 mg Q4 PRN Administration Pain, severe (8-10) Ondansetron HCl 4 mg 12/22/17 16:46 Zofran Inj IVP Q6H PRN Nausea/Vomiting Oxycodone HCl 5 mg 12/30/17 19:24 Oxycodone Immediate Release Tab PO Q6 PRN Pain, moderate (4-7) Pantoprazole Sodium 40 mg 12/22/17 22:15 01/03/18 10:10 Protonix Inj IVP 40 mg Q12H [facility] Administration Rosuvastatin Calcium 20 mg 12/28/17 22:00 01/02/18 21:21 Crestor PO 20 mg HS [facility] Administration Past Psychiatric History - Past Psychiatric History Previous Treatment History: None Pertinent Medical Hx (Current Medical&Sleep Prob, Allergies): Allergies Allergy/AdvReac Type Severity Reaction Status Date / Time Penicillins Allergy Mild Verified 12/22/17 11:50 GlipiZIDE [Glucotrol] 10 tab PO BID 08/26/17 Losartan/Hydrochlorothiazide [Losartan-Hctz 100-25 mg Tab] 1 each PO DAILY 08/26 Metoprolol Tartrate [Lopressor] 100 mg PO DAILY 08/26/17 Multivitamin/Iron/Folic Acid [Centrum Adults Tablet] 1 each PO DAILY 08/26/17 Omeprazole 20 mg PO DAILY 08/26/17 Simvastatin 10 mg PO HS 08/26/17 metFORMIN [glucOPHAGE] 500 mg PO BID 10/28/17 Aspirin [Ecotrin] 81 mg PO DAILY tabec 11/01/17 Review of Systems - Review of Systems All systems: reviewed and no additional remarkable complaints except - Psychiatric Psychiatric: Anxiety, Depression, Irritability. absent: Suicidal Ideation Mental Status Examination - Personal Presentation Personal Presentation: Looks stated age - Affect Affect: Constricted, Depressed - Motor Activity Motor Activity: Calm - Reliability in Providing Information Reliability in Providing Information: Good - Speech Speech: Organized - Mood Mood: Depressed, Anxious - Formal Thought Process Formal Thought Process: No Impairment - Obsessions/Compulsions Obsessions: No Compulsions: No - Cognitive Functions Orientation: Person, Place, Situation, Time Sensorium: Alert Attention/Concentration: Attentive Abstract Thinking: Garden Estimate of Intelligence: Below average Judgement: Imparied, as evidence by: Poor judgement, Imparied, as evidence by: Lack of insight into illness - Risk Risk: Diminished functioning - Strength & Assets Inventory Strength & Assets Inventory: Family support DSM 5 DX - DSM 5 DSM 5 Diagnosis: Major depressive disorder single episode severe - Recommended/Plan of Treatment Treatment Recommendations and Plan of Treatment: Major depressive disorder single episode severe -Supportive therapy and psychoeducation -Strat Zoloft 25 mg -Strat Trazodone 25 mg - Smoking Cessation Smoking Cessation Initiated: No
--- NOTE | 2018-01-03 12:51 | CP.PCM.PN ---
<Bertin Fink R - Last Filed: 01/03/18 12:49> Subjective - Date & Time of Evaluation Date of Evaluation: 01/03/18 Time of Evaluation: 12:49 - Subjective Subjective: PGY-1 general surgery progress note for Dr. Villa Patient seen and examined resting comfortably in chair on non-rebreather. Pt continues to c/o diffuse abdominal pain, SOB, CP. Denies N & V, F & C, flatus, BM. Is refusing PT. NGT in place for tube feeds. Constantino with 25cc serous output. Objective - Vital Signs/Intake and Output Vital Signs (last 24 hours): Temp Pulse Resp BP Pulse Ox 98.3 F 120 H 29 H 117/69 97 01/03/18 08:00 01/03/18 10:19 01/03/18 10:19 01/03/18 10:19 01/03/18 10:19 Intake and Output: 01/03/18 01/03/18 06:59 18:59 Intake Total 620 80 Output Total 1450 Balance -830 80 - Medications Medications: Current Medications Albuterol/Ipratropium (Duoneb 3 Mg/0.5 Mg (3 Ml) Ud) 3 ml INH RQ6 [facility] Last Admin: 01/03/18 07:20 Dose: 3 ml Aspirin (Aspirin) 325 mg PO DAILY [facility] Last Admin: 01/03/18 10:12 Dose: 325 mg Digoxin (Lanoxin) 0.25 mg IVP DAILY@1800 [facility] Last Admin: 01/02/18 17:05 Dose: 0.25 mg Heparin Sodium (Porcine) (Heparin) 5,000 units SC Q12 [facility] Last Admin: 01/03/18 10:09 Dose: 5,000 units Metronidazole (Flagyl) 500 mg in 100 mls @ 100 mls/hr IVPB Q8H [facility] PRN Reason: Protocol Last Admin: 01/03/18 10:12 Dose: 100 mls/hr Aztreonam 1 gm/ Sodium (Chloride) 100 mls @ 100 mls/hr IVPB Q12H [facility] PRN Reason: Protocol Last Admin: 01/03/18 10:13 Dose: 100 mls/hr Vancomycin/Sodium Chloride (Vancomycin 1 Gm/Ns 200 Ml) 1 gm in 200 mls @ 166.7 mls/hr IVPB Q24H [facility] PRN Reason: Protocol Stop: 01/07/18 10:01 Last Admin: 01/03/18 10:27 Dose: 166.7 mls/hr Insulin Detemir (Levemir) 15 unit SC Q12 [facility] Last Admin: 01/03/18 10:10 Dose: 15 unit Insulin Human Regular (Novolin R) 0 unit SC Q4H [facility] PRN Reason: Protocol Last Admin: 01/03/18 08:00 Dose: 2 unit Metoprolol Tartrate (Lopressor) 12.5 mg PO BID [facility] Last Admin: 01/03/18 10:12 Dose: 12.5 mg Morphine Sulfate (Morphine) 2 mg IVP Q4 PRN PRN Reason: Pain, severe (8-10) Last Admin: 01/03/18 03:33 Dose: 2 mg Ondansetron HCl (Zofran Inj) 4 mg IVP Q6H PRN PRN Reason: Nausea/Vomiting Oxycodone HCl (Oxycodone Immediate Release Tab) 5 mg PO Q6 PRN PRN Reason: Pain, moderate (4-7) Pantoprazole Sodium (Protonix Inj) 40 mg IVP Q12H [facility] Last Admin: 01/03/18 10:10 Dose: 40 mg Rosuvastatin Calcium (Crestor) 20 mg PO HS [facility] Last Admin: 01/02/18 21:21 Dose: 20 mg Sertraline HCl (Zoloft) 25 mg PO DAILY [facility] Trazodone HCl (Desyrel) 25 mg PO [facility] - Labs Labs: 01/03/18 06:28 01/03/18 06:28 PT 12.5 SECONDS (9.7-12.2) H 12/22/17 16:18 INR 1.1 12/22/17 16:18 APTT 48 SECONDS (21-34) H D 12/28/17 05:53 - Additional Findings Additional findings: - Constitutional Appears: Non-toxic, No Acute Distress - Head Exam Head Exam: ATRAUMATIC, NORMAL INSPECTION, NORMOCEPHALIC - Eye Exam Eye Exam: EOMI, Normal appearance - ENT Exam ENT Exam: Mucous Membranes Moist, Normal Exam - Neck Exam Neck Exam: Full ROM, Normal Inspection Additional comments: [facility] TLC - Respiratory Exam Respiratory Exam: NORMAL BREATHING PATTERN - Cardiovascular Exam Cardiovascular Exam: REGULAR RHYTHM, +S1, +S2 - GI/Abdominal Exam GI & Abdominal Exam: Soft, Tenderness (Minimal over surgical incision site). absent: Distended, Firm, Guarding - Extremities Exam Extremities Exam: Normal Inspection - Neurological Exam Neurological Exam: Alert, Awake, CN II-XII Intact, Oriented x3 - Psychiatric Exam Psychiatric exam: Normal Affect, Normal Mood - Skin Skin Exam: Dry, Intact, Normal Color, Warm Assessment and Plan - Assessment and Plan (Free Text) Assessment: 77M POD#12 s/p ex-lap & Colin patch for duodenal perforation, post-op NSTEMI and pneumonia Plan: Monitor bowel function NGT for tube feeds OOBTC Encouraged to participate in PT Encourge IS use Pain control PRN Needs to be optimized for CABG Further mgmt as per primary and ICU teams Will DW attending <Fred Villa - Last Filed: 01/06/18 18:42> Objective - Vital Signs/Intake and Output Vital Signs (last 24 hours): Temp Pulse Resp BP Pulse Ox 97.1 F L 94 H 16 137/77 95 01/06/18 18:00 01/06/18 18:00 01/06/18 18:00 01/06/18 18:22 01/06/18 18:00 Intake and Output: 01/06/18 01/06/18 06:59 18:59 Intake Total 960 Output Total 300 Balance 660 - Medications Medications: Current Medications Albuterol/Ipratropium (Duoneb 3 Mg/0.5 Mg (3 Ml) Ud) 3 ml INH RQ6 [facility] Last Admin: 01/06/18 07:36 Dose: 3 ml Aspirin (Aspirin) 325 mg PO DAILY [facility] Last Admin: 01/06/18 09:52 Dose: 325 mg Heparin Sodium (Porcine) (Heparin) 5,000 units SC Q12 [facility] Last Admin: 01/06/18 09:52 Dose: 5,000 units Insulin Detemir (Levemir) 15 unit SC Q12 [facility] Last Admin: 01/06/18 09:52 Dose: 15 unit Insulin Human Regular (Novolin R) 0 unit SC Q6H [facility] PRN Reason: Protocol Last Admin: 01/06/18 18:22 Dose: 6 unit Metoprolol Tartrate (Lopressor) 25 mg PO BID [facility] Last Admin: 01/06/18 18:22 Dose: 25 mg Ondansetron HCl (Zofran Inj) 4 mg IVP Q6H PRN PRN Reason: Nausea/Vomiting Oxycodone/Acetaminophen (Percocet 5/325 Mg Tab) 1 tab PO Q4H PRN PRN Reason: Pain, moderate (4-7) Stop: 01/07/18 20:10 Last Admin: 01/05/18 04:38 Dose: 1 tab Pantoprazole Sodium (Protonix Inj) 40 mg IVP Q12H [facility] Last Admin: 01/06/18 09:51 Dose: 40 mg Rosuvastatin Calcium (Crestor) 20 mg PO HS [facility] Last Admin: 01/05/18 21:19 Dose: 20 mg Sertraline HCl (Zoloft) 25 mg PO DAILY [facility] Last Admin: 01/06/18 09:53 Dose: 25 mg Trazodone HCl (Desyrel) 25 mg PO HS [facility] Last Admin: 01/05/18 21:19 Dose: 25 mg - Labs Labs: 01/06/18 06:21 01/06/18 06:21 PT 12.5 SECONDS (9.7-12.2) H 12/22/17 16:18 INR 1.1 12/22/17 16:18 APTT 48 SECONDS (21-34) H D 12/28/17 05:53 Attending/Attestation - Attestation I have personally seen and examined this patient.: Yes I have fully participated in the care of the patient.: Yes I have reviewed all pertinent clinical information, including history, physical exam and plan: Yes Notes (Text): Pt was seen and examined at bedside Agree with above note and assessment except Pt is stable and had BM On tube feed C/w IV antibiotics c/w current mx Plan d.w pt and primary team in detail
[2018-01-03] MEDS: Digoxin 500 mcg/2ml (0.5 mg/2ml) Inj IVP SCH (17:11)
--- NOTE | 2018-01-03 19:36 | CP.PCM.PN ---
<Rafi Ferrari - Last Filed: 01/03/18 19:33> Subjective - Date & Time of Evaluation Date of Evaluation: 01/03/18 Time of Evaluation: 19:33 - Subjective Subjective: PGY-[address] Milan's service: Pt seen and examined at bedside. Nursing reports not acute events overnight. Patient found lying in chair at bedside on non-rebreather. Patient c/o abdominal pain, worst in epigastric region. Admits reproducible chest pain as well. Denies SOB, palpitations. Objective - Vital Signs/Intake and Output Vital Signs (last 24 hours): Temp Pulse Resp BP Pulse Ox 97.4 F L 78 20 131/71 95 01/03/18 16:00 01/03/18 19:00 01/03/18 19:00 01/03/18 18:13 01/03/18 19:00 Intake and Output: 01/03/18 01/04/18 18:59 06:59 Intake Total 1080 130 Output Total 200 700 Balance 880 -570 - Medications Medications: Current Medications Albuterol/Ipratropium (Duoneb 3 Mg/0.5 Mg (3 Ml) Ud) 3 ml INH RQ6 [facility] Last Admin: 01/03/18 19:28 Dose: 3 ml Aspirin (Aspirin) 325 mg PO DAILY [facility] Last Admin: 01/03/18 10:12 Dose: 325 mg Digoxin (Lanoxin) 0.25 mg IVP DAILY@1800 [facility] Last Admin: 01/03/18 17:11 Dose: 0.25 mg Heparin Sodium (Porcine) (Heparin) 5,000 units SC Q12 [facility] Last Admin: 01/03/18 10:09 Dose: 5,000 units Metronidazole (Flagyl) 500 mg in 100 mls @ 100 mls/hr IVPB Q8H [facility] PRN Reason: Protocol Last Admin: 01/03/18 18:32 Dose: 100 mls/hr Insulin Detemir (Levemir) 15 unit SC Q12 [facility] Last Admin: 01/03/18 10:10 Dose: 15 unit Insulin Human Regular (Novolin R) 0 unit SC Q4H [facility] PRN Reason: Protocol Last Admin: 01/03/18 17:11 Dose: 2 unit Metoprolol Tartrate (Lopressor) 12.5 mg PO BID [facility] Last Admin: 01/03/18 17:10 Dose: 12.5 mg Ondansetron HCl (Zofran Inj) 4 mg IVP Q6H PRN PRN Reason: Nausea/Vomiting Pantoprazole Sodium (Protonix Inj) 40 mg IVP Q12H [facility] Last Admin: 01/03/18 10:10 Dose: 40 mg Rosuvastatin Calcium (Crestor) 20 mg PO HS [facility] Last Admin: 01/02/18 21:21 Dose: 20 mg Sertraline HCl (Zoloft) 25 mg PO DAILY [facility] Last Admin: 01/03/18 13:53 Dose: 25 mg Trazodone HCl (Desyrel) 25 mg PO HS [facility] - Labs Labs: 01/03/18 06:28 01/03/18 06:28 PT 12.5 SECONDS (9.7-12.2) H 12/22/17 16:18 INR 1.1 12/22/17 16:18 APTT 48 SECONDS (21-34) H D 12/28/17 05:53 - Additional Findings Additional findings: - Constitutional Appears: Non-toxic, No Acute Distress - Head Exam Head Exam: ATRAUMATIC, NORMAL INSPECTION, NORMOCEPHALIC - Eye Exam Eye Exam: EOMI, Normal appearance - ENT Exam ENT Exam: Mucous Membranes Moist, Normal Exam - feeding tube in place - Neck Exam Neck Exam: Full ROM, Normal Inspection Additional comments: [facility] TLC - Respiratory Exam Respiratory Exam: NORMAL BREATHING PATTERN - Cardiovascular Exam Cardiovascular Exam: REGULAR RHYTHM, +S1, +S2 - GI/Abdominal Exam GI & Abdominal Exam: Soft, Tenderness (appropriate over surg incision site). 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 Grade I abnml relaxation pattern. Mild Aortic regurgitation. Digoxin 0.25mg IV Daily Lopressor 12.5mg PO BID Afib/HTN Digoxin 0.25mg IV Daily Lopressor 12.5mg PO BID Discussed with Dr. Bjorn Ferrari PGY-2 <Brandon Milan - Last Filed: 01/03/18 22:22> Objective - Vital Signs/Intake and Output Vital Signs (last 24 hours): Temp Pulse Resp BP Pulse Ox 97.8 F 88 18 135/77 99 01/03/18 20:00 01/03/18 20:00 01/03/18 20:00 01/03/18 20:00 01/03/18 20:00 Intake and Output: 01/03/18 01/04/18 18:59 06:59 Intake Total 1190 220 Output Total 200 700 Balance 990 -480 - Medications Medications: Current Medications Albuterol/Ipratropium (Duoneb 3 Mg/0.5 Mg (3 Ml) Ud) 3 ml INH RQ6 [facility] Last Admin: 01/03/18 19:28 Dose: 3 ml Aspirin (Aspirin) 325 mg PO DAILY [facility] Last Admin: 01/03/18 10:12 Dose: 325 mg Digoxin (Lanoxin) 0.25 mg IVP DAILY@1800 [facility] Last Admin: 01/03/18 17:11 Dose: 0.25 mg Heparin Sodium (Porcine) (Heparin) 5,000 units SC Q12 [facility] Last Admin: 01/03/18 10:09 Dose: 5,000 units Metronidazole (Flagyl) 500 mg in 100 mls @ 100 mls/hr IVPB Q8H [facility] PRN Reason: Protocol Last Admin: 01/03/18 18:32 Dose: 100 mls/hr Insulin Detemir (Levemir) 15 unit SC Q12 [facility] Last Admin: 01/03/18 10:10 Dose: 15 unit Insulin Human Regular (Novolin R) 0 unit SC Q4H [facility] PRN Reason: Protocol Last Admin: 01/03/18 20:00 Dose: Not Given Metoprolol Tartrate (Lopressor) 12.5 mg PO BID [facility] Last Admin: 01/03/18 17:10 Dose: 12.5 mg Ondansetron HCl (Zofran Inj) 4 mg IVP Q6H PRN PRN Reason: Nausea/Vomiting Pantoprazole Sodium (Protonix Inj) 40 mg IVP Q12H [facility] Last Admin: 01/03/18 10:10 Dose: 40 mg Rosuvastatin Calcium (Crestor) 20 mg PO HS [facility] Last Admin: 01/02/18 21:21 Dose: 20 mg Sertraline HCl (Zoloft) 25 mg PO DAILY [facility] Last Admin: 01/03/18 13:53 Dose: 25 mg Trazodone HCl (Desyrel) 25 mg PO HS [facility] - Labs Labs: 01/03/18 06:28 01/03/18 06:28 PT 12.5 SECONDS (9.7-12.2) H 12/22/17 16:18 INR 1.1 12/22/17 16:18 APTT 48 SECONDS (21-34) H D 12/28/17 05:53 Assessment and Plan - Assessment and Plan (Free Text) Plan: Patient seen and evaluated personally by me Plan of care d/w the medical lead and as documented
--- NOTE | 2018-01-03 22:21 | CP.PCM.PN ---
Subjective - Date & Time of Evaluation Date of Evaluation: 01/03/18 Time of Evaluation: 22:20 - Subjective Subjective: CHIEF COMPLAINTS TODAY : AFEBRILE C/O ABDOMINAL DISCMFORT. +VE NGT -FEEDINGS. REFUSES TO EAT. WEAK. +VE LOOSE BM TODAY s/p cardiac catheterization 12/28/17- triple vessel disease Patient for cardiothoracic surgical evaluation for CABG as noted. ROS. HEENT : N. Resp : No cough, wheezing ,pleuritic CP ,or hemoptysis Cardio : No anginal CP, PND, orthopnea, palpitation GI : +VE ABDOMINAL PAIN, NO n/v ,diarrhea or GI bleeding . PROTOZOOLOGIST : No headache, vertigo, focal deficit. Musculoskel : No joint swelling , Derm : No rash Psych : Normal affect. Ext : No swelling ,calf pain PE. Pt. awake in no distress. V.S As noted in the chart Head ,ear nose,throat and eyes : Normal. Neck : Supple with normal carotids. Lungs: DIMINISHED BS AT BASIS. Heart : S1 & S2 normal with S4. No murmur. Abd : SOFT, MILD TENDERNESS POSTOPERATIVE SITE +VE BETH + SEROSANGIOUS DRAINAGE Midline incision with panda in place, no erythema or drainage noted. DRESSING DRY ,CLEAN. Neuro : Moves all ext. with no localized deficit. Ext : No edema with intact pulses.Non tender calves Derm : No rashes or decubitus ulcer. LABS/RADIOLOGY: REVIEWED [facility]-NOTED CXR 12/31/17 MINIMAL CHF/AND B/L ATELECTASIS. BLOOD CULTURES 12/26/17 -VE GROWTH TO DATE. Objective - Vital Signs/Intake and Output Vital Signs (last 24 hours): Temp Pulse Resp BP Pulse Ox 97.8 F 88 18 135/77 99 01/03/18 20:00 01/03/18 20:00 01/03/18 20:00 01/03/18 20:00 01/03/18 20:00 Intake and Output: 01/03/18 01/04/18 18:59 06:59 Intake Total 1190 220 Output Total 200 700 Balance 990 -480 - Medications Medications: Current Medications Albuterol/Ipratropium (Duoneb 3 Mg/0.5 Mg (3 Ml) Ud) 3 ml INH RQ6 [facility] Last Admin: 01/03/18 19:28 Dose: 3 ml Aspirin (Aspirin) 325 mg PO DAILY [facility] Last Admin: 01/03/18 10:12 Dose: 325 mg Digoxin (Lanoxin) 0.25 mg IVP DAILY@1800 [facility] Last Admin: 01/03/18 17:11 Dose: 0.25 mg Heparin Sodium (Porcine) (Heparin) 5,000 units SC Q12 [facility] Last Admin: 01/03/18 10:09 Dose: 5,000 units Metronidazole (Flagyl) 500 mg in 100 mls @ 100 mls/hr IVPB Q8H [facility] PRN Reason: Protocol Last Admin: 01/03/18 18:32 Dose: 100 mls/hr Insulin Detemir (Levemir) 15 unit SC Q12 [facility] Last Admin: 01/03/18 10:10 Dose: 15 unit Insulin Human Regular (Novolin R) 0 unit SC Q4H [facility] PRN Reason: Protocol Last Admin: 01/03/18 20:00 Dose: Not Given Metoprolol Tartrate (Lopressor) 12.5 mg PO BID [facility] Last Admin: 01/03/18 17:10 Dose: 12.5 mg Ondansetron HCl (Zofran Inj) 4 mg IVP Q6H PRN PRN Reason: Nausea/Vomiting Pantoprazole Sodium (Protonix Inj) 40 mg IVP Q12H [facility] Last Admin: 01/03/18 10:10 Dose: 40 mg Rosuvastatin Calcium (Crestor) 20 mg PO HS [facility] Last Admin: 01/02/18 21:21 Dose: 20 mg Sertraline HCl (Zoloft) 25 mg PO DAILY [facility] Last Admin: 01/03/18 13:53 Dose: 25 mg Trazodone HCl (Desyrel) 25 mg PO [facility] - Labs Labs: 01/03/18 06:28 01/03/18 06:28 PT 12.5 SECONDS (9.7-12.2) H 12/22/17 16:18 INR 1.1 12/22/17 16:18 APTT 48 SECONDS (21-34) H D 12/28/17 05:53 Assessment and Plan (1) Sepsis associated hypotension Status: Acute (2) Perforated abdominal viscus Status: Acute (3) Status post exploratory laparotomy Status: Acute (4) Acute non-ST elevation myocardial infarction (NSTEMI) Status: Acute (5) CHF (congestive heart failure) Status: Acute (6) Diabetes mellitus Status: Acute - Assessment and Plan (Free Text) Plan: DC IV Azactam 1 g IV piggyback every 12 hourly. 12/26/17 ( PATIENT TOLERATED FIRST DOSE WITHOUT ANY REACTIONS. ) DC IV vancomycin 1 g once a day daily for gram-positive/enterococcal coverage with intra-abdominal sepsis.12/26/17 Continue IV Flagyl 500 every 8 hourly 12/22/17 PULMONARY TOILET CASE DISCUSSED WITH RESIDENT.
[2018-01-03] MEDS: traZODone 25 mg Tab PO SCH (22:40)
--- NOTE | 2018-01-04 00:32 | CP.PCM.PN ---
Subjective - Date & Time of Evaluation Date of Evaluation: 01/03/18 Time of Evaluation: 18:00 - Subjective Subjective: Pt seen and examined Objective - Vital Signs/Intake and Output Vital Signs (last 24 hours): Temp Pulse Resp BP Pulse Ox 97.8 F 88 18 135/77 99 01/03/18 20:00 01/03/18 20:00 01/03/18 20:00 01/03/18 20:00 01/03/18 20:00 Intake and Output: 01/03/18 01/04/18 18:59 06:59 Intake Total 1190 220 Output Total 200 700 Balance 990 -480 - Medications Medications: Current Medications Albuterol/Ipratropium (Duoneb 3 Mg/0.5 Mg (3 Ml) Ud) 3 ml INH RQ6 [facility] Last Admin: 01/03/18 19:28 Dose: 3 ml Aspirin (Aspirin) 325 mg PO DAILY [facility] Last Admin: 01/03/18 10:12 Dose: 325 mg Digoxin (Lanoxin) 0.25 mg IVP DAILY@1800 [facility] Last Admin: 01/03/18 17:11 Dose: 0.25 mg Heparin Sodium (Porcine) (Heparin) 5,000 units SC Q12 [facility] Last Admin: 01/03/18 22:40 Dose: 5,000 units Metronidazole (Flagyl) 500 mg in 100 mls @ 100 mls/hr IVPB Q8H [facility] PRN Reason: Protocol Last Admin: 01/03/18 18:32 Dose: 100 mls/hr Insulin Detemir (Levemir) 15 unit SC Q12 [facility] Last Admin: 01/03/18 22:40 Dose: 15 unit Insulin Human Regular (Novolin R) 0 unit SC Q4H [facility] PRN Reason: Protocol Last Admin: 01/03/18 20:00 Dose: Not Given Metoprolol Tartrate (Lopressor) 12.5 mg PO BID [facility] Last Admin: 01/03/18 17:10 Dose: 12.5 mg Ondansetron HCl (Zofran Inj) 4 mg IVP Q6H PRN PRN Reason: Nausea/Vomiting Pantoprazole Sodium (Protonix Inj) 40 mg IVP Q12H [facility] Last Admin: 01/03/18 22:40 Dose: 40 mg Rosuvastatin Calcium (Crestor) 20 mg PO HS [facility] Last Admin: 01/03/18 22:40 Dose: 20 mg Sertraline HCl (Zoloft) 25 mg PO DAILY [facility] Last Admin: 01/03/18 13:53 Dose: 25 mg Trazodone HCl (Desyrel) 25 mg PO HS [facility] Last Admin: 01/03/18 22:40 Dose: 25 mg - Labs Labs: 01/03/18 06:28 01/03/18 06:28 PT 12.5 SECONDS (9.7-12.2) H 12/22/17 16:18 INR 1.1 12/22/17 16:18 APTT 48 SECONDS (21-34) H D 12/28/17 05:53 Assessment and Plan (1) Perforated abdominal viscus Status: Acute (2) Diabetes mellitus Status: Acute (3) GERD (gastroesophageal reflux disease) Status: Acute (4) Acute non-ST elevation myocardial infarction (NSTEMI) Status: Acute
[2018-01-04] MEDS: Albuterol-Ipratrop 3 mg / 0.5 (3 ml) UD INH SCH ×4 (01:24→19:43)
[2018-01-04] MEDS: metroNIDAZOLE IV 500 mg/100 ml 500 MG/100 ML BAG IVPB SCH ×3 (04:00→18:10)
[2018-01-04] MEDS: (Novolin R) Insulin Human Regular 100 units/ml vial SC SCH ×6 (04:00→20:25)
[2018-01-04] MEDS: Insulin Detemir 100 units/ml Vial (Levemir) SC SCH ×2 (09:30→21:09)
--- NOTE | 2018-01-04 09:33 | CP.PCM.PN ---
<Bertin Fink R - Last Filed: 01/04/18 09:29> Subjective - Date & Time of Evaluation Date of Evaluation: 01/04/18 Time of Evaluation: 09:29 - Subjective Subjective: PGY-1 general surgery progress note for Dr. Villa No acute events noted overnight. Patient complained of abdominal pain. Patient not very talkative, appears depressed, was seen by psych yesterday. NGT to feeding. Mid-abdominal incision with panda intact. Right BETH intact with serous drainage. Objective - Vital Signs/Intake and Output Vital Signs (last 24 hours): Temp Pulse Resp BP Pulse Ox 97.4 F L 108 H 21 111/60 96 01/04/18 08:00 01/04/18 08:00 01/04/18 08:00 01/04/18 08:00 01/04/18 08:00 Intake and Output: 01/04/18 01/04/18 06:59 18:59 Intake Total 620 Output Total 1540 Balance -920 - Medications Medications: Current Medications Albuterol/Ipratropium (Duoneb 3 Mg/0.5 Mg (3 Ml) Ud) 3 ml INH RQ6 [facility] Last Admin: 01/04/18 07:25 Dose: 3 ml Aspirin (Aspirin) 325 mg PO DAILY [facility] Last Admin: 01/03/18 10:12 Dose: 325 mg Digoxin (Lanoxin) 0.25 mg IVP DAILY@1800 [facility] Last Admin: 01/03/18 17:11 Dose: 0.25 mg Heparin Sodium (Porcine) (Heparin) 5,000 units SC Q12 [facility] Last Admin: 01/03/18 22:40 Dose: 5,000 units Metronidazole (Flagyl) 500 mg in 100 mls @ 100 mls/hr IVPB Q8H [facility] PRN Reason: Protocol Last Admin: 01/04/18 04:00 Dose: 100 mls/hr Insulin Detemir (Levemir) 15 unit SC Q12 [facility] Last Admin: 01/03/18 22:40 Dose: 15 unit Insulin Human Regular (Novolin R) 0 unit SC Q4H [facility] PRN Reason: Protocol Last Admin: 01/04/18 07:46 Dose: 2 unit Metoprolol Tartrate (Lopressor) 12.5 mg PO BID [facility] Last Admin: 01/03/18 17:10 Dose: 12.5 mg Ondansetron HCl (Zofran Inj) 4 mg IVP Q6H PRN PRN Reason: Nausea/Vomiting Pantoprazole Sodium (Protonix Inj) 40 mg IVP Q12H [facility] Last Admin: 01/03/18 22:40 Dose: 40 mg Rosuvastatin Calcium (Crestor) 20 mg PO HS [facility] Last Admin: 01/03/18 22:40 Dose: 20 mg Sertraline HCl (Zoloft) 25 mg PO DAILY [facility] Last Admin: 01/03/18 13:53 Dose: 25 mg Trazodone HCl (Desyrel) 25 mg PO HS [facility] Last Admin: 01/03/18 22:40 Dose: 25 mg - Labs Labs: 01/03/18 06:28 01/03/18 06:28 PT 12.5 SECONDS (9.7-12.2) H 12/22/17 16:18 INR 1.1 12/22/17 16:18 APTT 48 SECONDS (21-34) H D 12/28/17 05:53 - Additional Findings Additional findings: - Constitutional Appears: Non-toxic, No Acute Distress - Head Exam Head Exam: ATRAUMATIC, NORMAL INSPECTION, NORMOCEPHALIC - Eye Exam Eye Exam: EOMI, Normal appearance - ENT Exam ENT Exam: Mucous Membranes Moist, Normal Exam - Neck Exam Neck Exam: Full ROM, Normal Inspection Additional comments: [facility] TLC - Respiratory Exam Respiratory Exam: NORMAL BREATHING PATTERN - Cardiovascular Exam Cardiovascular Exam: REGULAR RHYTHM, +S1, +S2 - GI/Abdominal Exam GI & Abdominal Exam: Soft, Tenderness (Minimal over surgical incision site). absent: Distended, Firm, Guarding +VE BETH + serosanginous drainage, Midline incision with panda in place, no erythema or drainage noted. Dressing d/c/i - Extremities Exam Extremities Exam: Normal Inspection - Neurological Exam Neurological Exam: Alert, Awake, CN II-XII Intact, Oriented x3 - Psychiatric Exam Psychiatric exam: Flat affect - Skin Skin Exam: Dry, Intact, Normal Color, Warm Assessment and Plan - Assessment and Plan (Free Text) Assessment: 77M POD#13 s/p ex-lap & Colin patch for duodenal perforation, post-op NSTEMI and pneumonia Plan: Monitor bowel function NGT for tube feeds OOBTC Encouraged to participate in PT Encourge IS use Pain control PRN Needs to be optimized for CABG Seen by psychiatry Further mgmt as per primary and ICU teams Will DW attending <Fred Villa - Last Filed: 01/06/18 18:44> Objective - Vital Signs/Intake and Output Vital Signs (last 24 hours): Temp Pulse Resp BP Pulse Ox 97.1 F L 94 H 16 137/77 95 01/06/18 18:00 01/06/18 18:00 01/06/18 18:00 01/06/18 18:22 01/06/18 18:00 Intake and Output: 01/06/18 01/06/18 06:59 18:59 Intake Total 960 Output Total 300 Balance 660 - Medications Medications: Current Medications Albuterol/Ipratropium (Duoneb 3 Mg/0.5 Mg (3 Ml) Ud) 3 ml INH RQ6 [facility] Last Admin: 01/06/18 07:36 Dose: 3 ml Aspirin (Aspirin) 325 mg PO DAILY [facility] Last Admin: 01/06/18 09:52 Dose: 325 mg Heparin Sodium (Porcine) (Heparin) 5,000 units SC Q12 [facility] Last Admin: 01/06/18 09:52 Dose: 5,000 units Insulin Detemir (Levemir) 15 unit SC Q12 [facility] Last Admin: 01/06/18 09:52 Dose: 15 unit Insulin Human Regular (Novolin R) 0 unit SC Q6H [facility] PRN Reason: Protocol Last Admin: 01/06/18 18:22 Dose: 6 unit Metoprolol Tartrate (Lopressor) 25 mg PO BID [facility] Last Admin: 01/06/18 18:22 Dose: 25 mg Ondansetron HCl (Zofran Inj) 4 mg IVP Q6H PRN PRN Reason: Nausea/Vomiting Oxycodone/Acetaminophen (Percocet 5/325 Mg Tab) 1 tab PO Q4H PRN PRN Reason: Pain, moderate (4-7) Stop: 01/07/18 20:10 Last Admin: 01/05/18 04:38 Dose: 1 tab Pantoprazole Sodium (Protonix Inj) 40 mg IVP Q12H [facility] Last Admin: 01/06/18 09:51 Dose: 40 mg Rosuvastatin Calcium (Crestor) 20 mg PO HS [facility] Last Admin: 01/05/18 21:19 Dose: 20 mg Sertraline HCl (Zoloft) 25 mg PO DAILY [facility] Last Admin: 01/06/18 09:53 Dose: 25 mg Trazodone HCl (Desyrel) 25 mg PO HS [facility] Last Admin: 01/05/18 21:19 Dose: 25 mg - Labs Labs: 01/06/18 06:21 01/06/18 06:21 PT 12.5 SECONDS (9.7-12.2) H 12/22/17 16:18 INR 1.1 12/22/17 16:18 APTT 48 SECONDS (21-34) H D 12/28/17 05:53 Attending/Attestation - Attestation I have personally seen and examined this patient.: Yes I have fully participated in the care of the patient.: Yes I have reviewed all pertinent clinical information, including history, physical exam and plan: Yes Notes (Text): Pt was seen and examined at bedside Agree with above note and assessment Pt is stable, tolerating TF and have normal BM No acute general surgery issues at present f/u prn c.w current rx as per ICU team Plan d.w pt and primary team in detail
[2018-01-04 17:28] LABS: BETA-HYDROXYBUTYRIC ACID None Detected
[2018-01-04] MEDS: Digoxin 500 mcg/2ml (0.5 mg/2ml) Inj IVP SCH (17:33)
[2018-01-04 17:34] VITALS: PULSE 95
[2018-01-04] MEDS: Oxycodone/Acetaminophen 5/325 mg Tab PO PRN (20:26)
[2018-01-04] MEDS: traZODone 25 mg Tab PO SCH (21:09)
--- NOTE | 2018-01-04 23:19 | CP.PCM.PN ---
Subjective - Date & Time of Evaluation Date of Evaluation: 01/04/18 Time of Evaluation: 23:19 - Subjective Subjective: CHIEF COMPLAINTS TODAY : AFEBRILE C/O ABDOMINAL DISCMFORT. ENCOURAGED TO EAT TO EAT. 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 ROS. HEENT : N. Resp : No cough, wheezing ,pleuritic CP ,or hemoptysis Cardio : No anginal CP, PND, orthopnea, palpitation GI : +VE ABDOMINAL PAIN, NO n/v ,diarrhea or GI bleeding . SEED PELLETER : No headache, vertigo, focal deficit. Musculoskel : No joint swelling , Derm : No rash Psych : Normal affect. Ext : No swelling ,calf pain PE. Pt. awake in no distress. V.S As noted in the chart Head ,ear nose,throat and eyes : Normal. Neck : Supple with normal carotids. Lungs: DIMINISHED BS AT BASIS. Heart : S1 & S2 normal with S4. No murmur. Abd : SOFT, MILD TENDERNESS POSTOPERATIVE SITE +VE BETH + SEROSANGIOUS DRAINAGE Midline incision with panda in place, no erythema or drainage noted. DRESSING DRY ,CLEAN. Neuro : Moves all ext. with no localized deficit. Ext : No edema with intact pulses.Non tender calves Derm : No rashes or decubitus ulcer. LABS/RADIOLOGY: REVIEWED [facility]HEST-NOTED CXR 12/31/17 MINIMAL CHF/AND B/L ATELECTASIS. BLOOD CULTURES 12/26/17 -VE GROWTH TO DATE. Objective - Vital Signs/Intake and Output Vital Signs (last 24 hours): Temp Pulse Resp BP Pulse Ox 98.7 F 93 H 24 122/78 98 01/04/18 20:00 01/04/18 21:00 01/04/18 21:00 01/04/18 20:01 01/04/18 21:00 Intake and Output: 01/04/18 01/05/18 18:59 06:59 Intake Total 870 Output Total 340 Balance 530 - Medications Medications: Current Medications Albuterol/Ipratropium (Duoneb 3 Mg/0.5 Mg (3 Ml) Ud) 3 ml INH RQ6 [facility] Last Admin: 01/04/18 19:43 Dose: 3 ml Aspirin (Aspirin) 325 mg PO DAILY [facility] Last Admin: 01/04/18 09:30 Dose: 325 mg Digoxin (Lanoxin) 0.25 mg IVP DAILY@1800 [facility] Last Admin: 01/04/18 17:33 Dose: 0.25 mg Heparin Sodium (Porcine) (Heparin) 5,000 units SC Q12 [facility] Last Admin: 01/04/18 21:09 Dose: 5,000 units Metronidazole (Flagyl) 500 mg in 100 mls @ 100 mls/hr IVPB Q8H [facility] PRN Reason: Protocol Last Admin: 01/04/18 18:10 Dose: 100 mls/hr Insulin Detemir (Levemir) 15 unit SC Q12 [facility] Last Admin: 01/04/18 21:09 Dose: 15 unit Insulin Human Regular (Novolin R) 0 unit SC Q4H [facility] PRN Reason: Protocol Last Admin: 01/04/18 20:25 Dose: 4 unit Metoprolol Tartrate (Lopressor) 12.5 mg PO BID [facility] Last Admin: 01/04/18 17:33 Dose: 12.5 mg Ondansetron HCl (Zofran Inj) 4 mg IVP Q6H PRN PRN Reason: Nausea/Vomiting Oxycodone/Acetaminophen (Percocet 5/325 Mg Tab) 1 tab PO Q4H PRN PRN Reason: Pain, moderate (4-7) Stop: 01/07/18 20:10 Last Admin: 01/04/18 20:26 Dose: 1 tab Pantoprazole Sodium (Protonix Inj) 40 mg IVP Q12H [facility] Last Admin: 01/04/18 21:17 Dose: 40 mg Rosuvastatin Calcium (Crestor) 20 mg PO [facility] Last Admin: 01/04/18 21:09 Dose: 20 mg Sertraline HCl (Zoloft) 25 mg PO DAILY [facility] Last Admin: 01/04/18 09:33 Dose: 25 mg Trazodone HCl (Desyrel) 25 mg PO HS [facility] Last Admin: 01/04/18 21:09 Dose: 25 mg - Labs Labs: 01/03/18 06:28 01/03/18 06:28 PT 12.5 SECONDS (9.7-12.2) H 12/22/17 16:18 INR 1.1 12/22/17 16:18 APTT 48 SECONDS (21-34) H D 12/28/17 05:53 Assessment and Plan (1) Sepsis associated hypotension Status: Acute (2) Perforated abdominal viscus Status: Acute (3) Status post exploratory laparotomy Status: Acute (4) Acute non-ST elevation myocardial infarction (NSTEMI) Status: Acute (5) CHF (congestive heart failure) Status: Acute (6) Diabetes mellitus Status: Acute - Assessment and Plan (Free Text) Plan: OFF IV AZACTAM OFF IV VANCOMYCIN Continue IV Flagyl 500 every 8 hourly 12/22/17 PULMONARY TOILET CASE DISCUSSED WITH RESIDENT.
--- NOTE | 2018-01-04 23:59 | CP.PCM.PN ---
Subjective - Date & Time of Evaluation Date of Evaluation: 01/04/18 Time of Evaluation: 19:00 Objective - Vital Signs/Intake and Output Vital Signs (last 24 hours): Temp Pulse Resp BP Pulse Ox 98.7 F 93 H 24 122/78 98 01/04/18 20:00 01/04/18 21:00 01/04/18 21:00 01/04/18 20:01 01/04/18 21:00 Intake and Output: 01/04/18 01/05/18 18:59 06:59 Intake Total 870 Output Total 340 Balance 530 - Medications Medications: Current Medications Albuterol/Ipratropium (Duoneb 3 Mg/0.5 Mg (3 Ml) Ud) 3 ml INH RQ6 [facility] Last Admin: 01/04/18 19:43 Dose: 3 ml Aspirin (Aspirin) 325 mg PO DAILY [facility] Last Admin: 01/04/18 09:30 Dose: 325 mg Digoxin (Lanoxin) 0.25 mg IVP DAILY@1800 [facility] Last Admin: 01/04/18 17:33 Dose: 0.25 mg Heparin Sodium (Porcine) (Heparin) 5,000 units SC Q12 [facility] Last Admin: 01/04/18 21:09 Dose: 5,000 units Metronidazole (Flagyl) 500 mg in 100 mls @ 100 mls/hr IVPB Q8H [facility] PRN Reason: Protocol Last Admin: 01/04/18 18:10 Dose: 100 mls/hr Insulin Detemir (Levemir) 15 unit SC Q12 [facility] Last Admin: 01/04/18 21:09 Dose: 15 unit Insulin Human Regular (Novolin R) 0 unit SC Q4H [facility] PRN Reason: Protocol Last Admin: 01/04/18 20:25 Dose: 4 unit Metoprolol Tartrate (Lopressor) 12.5 mg PO BID [facility] Last Admin: 01/04/18 17:33 Dose: 12.5 mg Ondansetron HCl (Zofran Inj) 4 mg IVP Q6H PRN PRN Reason: Nausea/Vomiting Oxycodone/Acetaminophen (Percocet 5/325 Mg Tab) 1 tab PO Q4H PRN PRN Reason: Pain, moderate (4-7) Stop: 01/07/18 20:10 Last Admin: 01/04/18 20:26 Dose: 1 tab Pantoprazole Sodium (Protonix Inj) 40 mg IVP Q12H [facility] Last Admin: 01/04/18 21:17 Dose: 40 mg Rosuvastatin Calcium (Crestor) 20 mg PO HS [facility] Last Admin: 01/04/18 21:09 Dose: 20 mg Sertraline HCl (Zoloft) 25 mg PO DAILY [facility] Last Admin: 01/04/18 09:33 Dose: 25 mg Trazodone HCl (Desyrel) 25 mg PO HS [facility] Last Admin: 01/04/18 21:09 Dose: 25 mg - Labs Labs: 01/03/18 06:28 01/03/18 06:28 PT 12.5 SECONDS (9.7-12.2) H 12/22/17 16:18 INR 1.1 12/22/17 16:18 APTT 48 SECONDS (21-34) H D 12/28/17 05:53 Assessment and Plan (1) Perforated abdominal viscus Status: Acute (2) Diabetes mellitus Status: Acute (3) GERD (gastroesophageal reflux disease) Status: Acute (4) Acute non-ST elevation myocardial infarction (NSTEMI) Status: Acute
[2018-01-05] MEDS: metroNIDAZOLE IV 500 mg/100 ml 500 MG/100 ML BAG IVPB SCH ×3 (03:00→18:24)
[2018-01-05] MEDS: Oxycodone/Acetaminophen 5/325 mg Tab PO PRN (04:38)
[2018-01-05] MEDS: (Novolin R) Insulin Human Regular 100 units/ml vial SC SCH ×5 (04:41→18:25)
--- NOTE | 2018-01-05 07:31 | CP.PCM.PN ---
Subjective - Date & Time of Evaluation Date of Evaluation: 01/04/18 Time of Evaluation: 17:20 - Subjective Subjective: Pt seen and examined at bedside. On non-rebreather. Patient c/o abdominal pain, worst in epigastric region. Admits reproducible chest pain as well. Denies SOB, palpitations. Physical Examination - Additional Findings Additional findings: - Constitutional Appears: Non-toxic, No Acute Distress - Head Exam Head Exam: ATRAUMATIC, NORMAL INSPECTION, NORMOCEPHALIC - Eye Exam Eye Exam: EOMI, Normal appearance - ENT Exam ENT Exam: Mucous Membranes Moist, Normal Exam - feeding tube in place - Neck Exam Neck Exam: Full ROM, Normal Inspection Additional comments: [facility] TLC - Respiratory Exam Respiratory Exam: NORMAL BREATHING PATTERN - Cardiovascular Exam Cardiovascular Exam: REGULAR RHYTHM, +S1, +S2 - GI/Abdominal Exam GI & Abdominal Exam: Soft, Tenderness (appropriate over surg incision site). absent: Distended, Firm, Guarding - Extremities Exam Extremities Exam: Normal Inspection - Neurological Exam Neurological Exam: Alert, Awake, CN II-XII Intact, Oriented x3 - Psychiatric Exam Psychiatric exam: Normal Affect, Normal Mood - Skin Skin Exam: Dry, Intact, Normal Color, Warm Objective - Vital Signs/Intake and Output Vital Signs (last 24 hours): Temp Pulse Resp BP Pulse Ox 98.9 F 94 H 16 111/68 97 01/05/18 04:00 01/05/18 06:00 01/05/18 06:00 01/05/18 05:21 01/05/18 06:00 - Medications Medications: Current Medications Albuterol/Ipratropium (Duoneb 3 Mg/0.5 Mg (3 Ml) Ud) 3 ml INH RQ6 [facility] Last Admin: 01/04/18 19:43 Dose: 3 ml Aspirin (Aspirin) 325 mg PO DAILY [facility] Last Admin: 01/04/18 09:30 Dose: 325 mg Digoxin (Lanoxin) 0.25 mg IVP DAILY@1800 [facility] Last Admin: 01/04/18 17:33 Dose: 0.25 mg Heparin Sodium (Porcine) (Heparin) 5,000 units SC Q12 [facility] Last Admin: 01/04/18 21:09 Dose: 5,000 units Metronidazole (Flagyl) 500 mg in 100 mls @ 100 mls/hr IVPB Q8H [facility] PRN Reason: Protocol Last Admin: 01/05/18 03:00 Dose: 100 mls/hr Insulin Detemir (Levemir) 15 unit SC Q12 [facility] Last Admin: 01/04/18 21:09 Dose: 15 unit Insulin Human Regular (Novolin R) 0 unit SC Q4H [facility] PRN Reason: Protocol Last Admin: 01/05/18 04:41 Dose: Not Given Metoprolol Tartrate (Lopressor) 12.5 mg PO BID [facility] Last Admin: 01/04/18 17:33 Dose: 12.5 mg Ondansetron HCl (Zofran Inj) 4 mg IVP Q6H PRN PRN Reason: Nausea/Vomiting Oxycodone/Acetaminophen (Percocet 5/325 Mg Tab) 1 tab PO Q4H PRN PRN Reason: Pain, moderate (4-7) Stop: 01/07/18 20:10 Last Admin: 01/05/18 04:38 Dose: 1 tab Pantoprazole Sodium (Protonix Inj) 40 mg IVP Q12H [facility] Last Admin: 01/04/18 21:17 Dose: 40 mg Rosuvastatin Calcium (Crestor) 20 mg PO HS [facility] Last Admin: 01/04/18 21:09 Dose: 20 mg Sertraline HCl (Zoloft) 25 mg PO DAILY [facility] Last Admin: 01/04/18 09:33 Dose: 25 mg Trazodone HCl (Desyrel) 25 mg PO HS [facility] Last Admin: 01/04/18 21:09 Dose: 25 mg - Labs Labs: 01/03/18 06:28 01/03/18 06:28 PT 12.5 SECONDS (9.7-12.2) H 12/22/17 16:18 INR 1.1 12/22/17 16:18 APTT 48 SECONDS (21-34) H D 12/28/17 05:53 Assessment and Plan - Assessment and Plan (Free Text) Assessment: Triple vessel Dz--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 Grade I abnml relaxation pattern. Mild Aortic regurgitation. Digoxin 0.25mg IV Daily Lopressor 12.5mg PO BID Afib/HTN Digoxin 0.25mg IV Daily Lopressor 12.5mg PO BID d/c digoxin
[2018-01-05] MEDS: Albuterol-Ipratrop 3 mg / 0.5 (3 ml) UD INH SCH ×3 (07:40→19:39)
[2018-01-05] MEDS: Insulin Detemir 100 units/ml Vial (Levemir) SC SCH ×2 (09:48→21:19)
--- NOTE | 2018-01-05 09:56 | CP.PCM.PN ---
<Rafi Ferrari - Last Filed: 01/05/18 20:37> Subjective - Date & Time of Evaluation Date of Evaluation: 01/05/18 Time of Evaluation: 09:54 - Subjective Subjective: PGY-[address] Milan's Cardio service: Pt seen and examined at bedside. Nursing reports not acute events overnight. Pt deneis chest pain or shortness of breath. Objective - Vital Signs/Intake and Output Vital Signs (last 24 hours): Temp Pulse Resp BP Pulse Ox 97.7 F 100 H 13 101/59 L 98 01/05/18 08:00 01/05/18 08:01 01/05/18 08:01 01/05/18 08:01 01/05/18 08:00 - Medications Medications: Current Medications Albuterol/Ipratropium (Duoneb 3 Mg/0.5 Mg (3 Ml) Ud) 3 ml INH RQ6 [facility] Last Admin: 01/05/18 07:40 Dose: 3 ml Aspirin (Aspirin) 325 mg PO DAILY [facility] Last Admin: 01/05/18 09:46 Dose: 325 mg Heparin Sodium (Porcine) (Heparin) 5,000 units SC Q12 [facility] Last Admin: 01/05/18 09:45 Dose: 5,000 units Metronidazole (Flagyl) 500 mg in 100 mls @ 100 mls/hr IVPB Q8H [facility] PRN Reason: Protocol Last Admin: 01/05/18 03:00 Dose: 100 mls/hr Insulin Detemir (Levemir) 15 unit SC Q12 [facility] Last Admin: 01/05/18 09:48 Dose: 15 unit Insulin Human Regular (Novolin R) 0 unit SC Q4H [facility] PRN Reason: Protocol Last Admin: 01/05/18 07:43 Dose: Not Given Metoprolol Tartrate (Lopressor) 25 mg PO BID [facility] Ondansetron HCl (Zofran Inj) 4 mg IVP Q6H PRN PRN Reason: Nausea/Vomiting Oxycodone/Acetaminophen (Percocet 5/325 Mg Tab) 1 tab PO Q4H PRN PRN Reason: Pain, moderate (4-7) Stop: 01/07/18 20:10 Last Admin: 01/05/18 04:38 Dose: 1 tab Pantoprazole Sodium (Protonix Inj) 40 mg IVP Q12H [facility] Last Admin: 01/05/18 09:45 Dose: 40 mg Rosuvastatin Calcium (Crestor) 20 mg PO HS [facility] Last Admin: 01/04/18 21:09 Dose: 20 mg Sertraline HCl (Zoloft) 25 mg PO DAILY [facility] Last Admin: 01/05/18 09:47 Dose: 25 mg Trazodone HCl (Desyrel) 25 mg PO HS [facility] Last Admin: 01/04/18 21:09 Dose: 25 mg - Labs Labs: 01/03/18 06:28 01/03/18 06:28 PT 12.5 SECONDS (9.7-12.2) H 12/22/17 16:18 INR 1.1 12/22/17 16:18 APTT 48 SECONDS (21-34) H D 12/28/17 05:53 - Additional Findings Additional findings: - Constitutional Appears: Non-toxic, No Acute Distress - Head Exam Head Exam: ATRAUMATIC, NORMAL INSPECTION, NORMOCEPHALIC - Eye Exam Eye Exam: EOMI, Normal appearance - ENT Exam ENT Exam: Mucous Membranes Moist, Normal Exam - feeding tube in place - Neck Exam Neck Exam: Full ROM, Normal Inspection Additional comments: [facility] TLC - Respiratory Exam Respiratory Exam: NORMAL BREATHING PATTERN - Cardiovascular Exam Cardiovascular Exam: REGULAR RHYTHM, +S1, +S2 - GI/Abdominal Exam GI & Abdominal Exam: Soft, Tenderness (appropriate over surg incision site). 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 Grade I abnml relaxation pattern. Mild Aortic regurgitation. Lopressor 12.5mg PO BID Afib/HTN Afib on monitor rate controlled Lopressor 12.5mg PO BID <Brandon Milan - Last Filed: 01/06/18 06:28> Objective - Vital Signs/Intake and Output Vital Signs (last 24 hours): Temp Pulse Resp BP Pulse Ox 98.5 F 97 H 22 113/68 95 01/05/18 16:00 01/06/18 06:00 01/06/18 06:00 01/06/18 04:01 01/06/18 06:00 Intake and Output: 01/05/18 01/06/18 18:59 06:59 Intake Total 760 Output Total 500 Balance 260 - Medications Medications: Current Medications Albuterol/Ipratropium (Duoneb 3 Mg/0.5 Mg (3 Ml) Ud) 3 ml INH RQ6 [facility] Last Admin: 01/06/18 01:17 Dose: 3 ml Aspirin (Aspirin) 325 mg PO DAILY [facility] Last Admin: 01/05/18 09:46 Dose: 325 mg Heparin Sodium (Porcine) (Heparin) 5,000 units SC Q12 [facility] Last Admin: 01/05/18 21:19 Dose: 5,000 units Metronidazole (Flagyl) 500 mg in 100 mls @ 100 mls/hr IVPB Q8H [facility] PRN Reason: Protocol Last Admin: 01/05/18 18:24 Dose: 100 mls/hr Insulin Detemir (Levemir) 15 unit SC Q12 [facility] Last Admin: 01/05/18 21:19 Dose: 15 unit Insulin Human Regular (Novolin R) 0 unit SC Q6H [facility] PRN Reason: Protocol Last Admin: 01/06/18 00:00 Dose: Not Given Metoprolol Tartrate (Lopressor) 25 mg PO BID [facility] Last Admin: 01/05/18 18:25 Dose: 25 mg Ondansetron HCl (Zofran Inj) 4 mg IVP Q6H PRN PRN Reason: Nausea/Vomiting Oxycodone/Acetaminophen (Percocet 5/325 Mg Tab) 1 tab PO Q4H PRN PRN Reason: Pain, moderate (4-7) Stop: 01/07/18 20:10 Last Admin: 01/05/18 04:38 Dose: 1 tab Pantoprazole Sodium (Protonix Inj) 40 mg IVP Q12H [facility] Last Admin: 01/05/18 21:19 Dose: 40 mg Rosuvastatin Calcium (Crestor) 20 mg PO HS [facility] Last Admin: 01/05/18 21:19 Dose: 20 mg Sertraline HCl (Zoloft) 25 mg PO DAILY [facility] Last Admin: 01/05/18 09:47 Dose: 25 mg Trazodone HCl (Desyrel) 25 mg PO HS [facility] Last Admin: 01/05/18 21:19 Dose: 25 mg - Labs Labs: 01/03/18 06:28 01/03/18 06:28 PT 12.5 SECONDS (9.7-12.2) H 12/22/17 16:18 INR 1.1 12/22/17 16:18 APTT 48 SECONDS (21-34) H D 12/28/17 05:53 Assessment and Plan - Assessment and Plan (Free Text) Plan: Patient seen and evaluated personally by me Plan of care d/w the medical billing and coding instructor and as documented
[2018-01-05] MEDS: traZODone 25 mg Tab PO SCH (21:19)
--- NOTE | 2018-01-05 22:27 | CP.PCM.PN ---
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 ROS. HEENT : N. Resp : No cough, wheezing ,pleuritic CP ,or hemoptysis Cardio : No anginal CP, PND, orthopnea, palpitation GI : +VE ABDOMINAL PAIN, NO n/v ,diarrhea or GI bleeding . 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 Musculoskel : No joint swelling , Derm : No rash Psych : Normal affect. Ext : No swelling ,calf pain PE. Pt. awake in no distress. V.S As noted in the chart Head ,ear nose,throat and eyes : Normal. Neck : Supple with normal carotids. Lungs: DIMINISHED BS AT BASIS. Heart : S1 & S2 normal with S4. No murmur. Abd : SOFT, MILD TENDERNESS POSTOPERATIVE SITE +VE BETH + SEROSANGIOUS DRAINAGE Midline incision with panda in place, no erythema or drainage noted. DRESSING DRY ,CLEAN. Neuro : Moves all ext. with no localized deficit. Ext : No edema with intact pulses.Non tender calves Derm : No rashes or decubitus ulcer. LABS/RADIOLOGY: REVIEWED [facility]ST-NOTED CXR 12/31/17 MINIMAL CHF/AND B/L ATELECTASIS. BLOOD CULTURES 12/26/17 -VE GROWTH TO DATE. Objective - Vital Signs/Intake and Output Vital Signs (last 24 hours): Temp Pulse Resp BP Pulse Ox 98.5 F 92 H 21 116/67 95 01/05/18 16:00 01/05/18 20:00 01/05/18 20:00 01/05/18 20:01 01/05/18 20:00 Intake and Output: 01/05/18 01/06/18 18:59 06:59 Intake Total 760 Output Total 500 Balance 260 - Medications Medications: Current Medications Albuterol/Ipratropium (Duoneb 3 Mg/0.5 Mg (3 Ml) Ud) 3 ml INH RQ6 [facility] Last Admin: 01/05/18 19:39 Dose: 3 ml Aspirin (Aspirin) 325 mg PO DAILY [facility] Last Admin: 01/05/18 09:46 Dose: 325 mg Heparin Sodium (Porcine) (Heparin) 5,000 units SC Q12 [facility] Last Admin: 01/05/18 21:19 Dose: 5,000 units Metronidazole (Flagyl) 500 mg in 100 mls @ 100 mls/hr IVPB Q8H [facility] PRN Reason: Protocol Last Admin: 01/05/18 18:24 Dose: 100 mls/hr Insulin Detemir (Levemir) 15 unit SC Q12 [facility] Last Admin: 01/05/18 21:19 Dose: 15 unit Insulin Human Regular (Novolin R) 0 unit SC Q6H [facility] PRN Reason: Protocol Last Admin: 01/05/18 18:25 Dose: 2 unit Metoprolol Tartrate (Lopressor) 25 mg PO BID [facility] Last Admin: 01/05/18 18:25 Dose: 25 mg Ondansetron HCl (Zofran Inj) 4 mg IVP Q6H PRN PRN Reason: Nausea/Vomiting Oxycodone/Acetaminophen (Percocet 5/325 Mg Tab) 1 tab PO Q4H PRN PRN Reason: Pain, moderate (4-7) Stop: 01/07/18 20:10 Last Admin: 01/05/18 04:38 Dose: 1 tab Pantoprazole Sodium (Protonix Inj) 40 mg IVP Q12H [facility] Last Admin: 01/05/18 21:19 Dose: 40 mg Rosuvastatin Calcium (Crestor) 20 mg PO [facility] Last Admin: 01/05/18 21:19 Dose: 20 mg Sertraline HCl (Zoloft) 25 mg PO DAILY [facility] Last Admin: 01/05/18 09:47 Dose: 25 mg Trazodone HCl (Desyrel) 25 mg PO [facility] Last Admin: 01/05/18 21:19 Dose: 25 mg - Labs Labs: 01/03/18 06:28 01/03/18 06:28 PT 12.5 SECONDS (9.7-12.2) H 12/22/17 16:18 INR 1.1 12/22/17 16:18 APTT 48 SECONDS (21-34) H D 12/28/17 05:53 Assessment and Plan (1) Sepsis associated hypotension Status: Acute (2) Perforated abdominal viscus Status: Acute (3) Status post exploratory laparotomy Status: Acute (4) Acute non-ST elevation myocardial infarction (NSTEMI) Status: Acute (5) CHF (congestive heart failure) Status: Acute (6) Diabetes mellitus Status: Acute - Assessment and Plan (Free Text) Plan: Continue IV Flagyl 500 every 8 hourly 12/22/17 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 CASE DISCUSSED WITH RESIDENT.
[2018-01-06] MEDS: Albuterol-Ipratrop 3 mg / 0.5 (3 ml) UD INH SCH ×3 (01:17→19:26)
[2018-01-06] MEDS: metroNIDAZOLE IV 500 mg/100 ml 500 MG/100 ML BAG IVPB SCH ×2 (02:00→10:00)
--- NOTE | 2018-01-06 02:44 | CP.PCM.PN ---
Subjective - Date & Time of Evaluation Date of Evaluation: 01/05/18 Time of Evaluation: 19:00 - Subjective Subjective: Pt seen and evaluated, remains on NGtube feeding, hemodynamaically stable, HR is in 90 Objective - Vital Signs/Intake and Output Vital Signs (last 24 hours): Temp Pulse Resp BP Pulse Ox 98.5 F 92 H 21 116/67 95 01/05/18 16:00 01/05/18 20:00 01/05/18 20:00 01/05/18 20:01 01/05/18 20:00 Intake and Output: 01/05/18 01/06/18 18:59 06:59 Intake Total 760 Output Total 500 Balance 260 - Medications Medications: Current Medications Albuterol/Ipratropium (Duoneb 3 Mg/0.5 Mg (3 Ml) Ud) 3 ml INH RQ6 [facility] Last Admin: 01/06/18 01:17 Dose: 3 ml Aspirin (Aspirin) 325 mg PO DAILY [facility] Last Admin: 01/05/18 09:46 Dose: 325 mg Heparin Sodium (Porcine) (Heparin) 5,000 units SC Q12 [facility] Last Admin: 01/05/18 21:19 Dose: 5,000 units Metronidazole (Flagyl) 500 mg in 100 mls @ 100 mls/hr IVPB Q8H [facility] PRN Reason: Protocol Last Admin: 01/05/18 18:24 Dose: 100 mls/hr Insulin Detemir (Levemir) 15 unit SC Q12 [facility] Last Admin: 01/05/18 21:19 Dose: 15 unit Insulin Human Regular (Novolin R) 0 unit SC Q6H [facility] PRN Reason: Protocol Last Admin: 01/05/18 18:25 Dose: 2 unit Metoprolol Tartrate (Lopressor) 25 mg PO BID [facility] Last Admin: 01/05/18 18:25 Dose: 25 mg Ondansetron HCl (Zofran Inj) 4 mg IVP Q6H PRN PRN Reason: Nausea/Vomiting Oxycodone/Acetaminophen (Percocet 5/325 Mg Tab) 1 tab PO Q4H PRN PRN Reason: Pain, moderate (4-7) Stop: 01/07/18 20:10 Last Admin: 01/05/18 04:38 Dose: 1 tab Pantoprazole Sodium (Protonix Inj) 40 mg IVP Q12H [facility] Last Admin: 01/05/18 21:19 Dose: 40 mg Rosuvastatin Calcium (Crestor) 20 mg PO HS [facility] Last Admin: 01/05/18 21:19 Dose: 20 mg Sertraline HCl (Zoloft) 25 mg PO DAILY [facility] Last Admin: 01/05/18 09:47 Dose: 25 mg Trazodone HCl (Desyrel) 25 mg PO HS [facility] Last Admin: 01/05/18 21:19 Dose: 25 mg - Labs Labs: 01/03/18 06:28 01/03/18 06:28 PT 12.5 SECONDS (9.7-12.2) H 12/22/17 16:18 INR 1.1 12/22/17 16:18 APTT 48 SECONDS (21-34) H D 12/28/17 05:53 - Constitutional Appears: No Acute Distress - Head Exam Head Exam: ATRAUMATIC, NORMAL INSPECTION, NORMOCEPHALIC - Respiratory Exam Respiratory Exam: Decreased Breath Sounds, Rales - Cardiovascular Exam Cardiovascular Exam: REGULAR RHYTHM, +S1, +S2. absent: Murmur - GI/Abdominal Exam GI & Abdominal Exam: Soft, Normal Bowel Sounds. absent: Tenderness Assessment and Plan (1) Perforated abdominal viscus Status: Acute (2) Diabetes mellitus Status: Acute (3) GERD (gastroesophageal reflux disease) Status: Acute (4) Acute non-ST elevation myocardial infarction (NSTEMI) Status: Acute
[2018-01-06 06:31] LABS: BASO # 0.1 K/uL (0.0-0.2); BASO % 0.5 % (0.0-2.0); EOS # 0.2 K/uL (0.0-0.7); EOS % 1.3 % (0.0-4.0); HEMOGLOBIN 9.4 g/dL (12.0-18.0); LYMPH # 1.1 K/uL (1.0-4.3); LYMPH % 9.7 % (20.0-40.0); MEAN CORPUSCULAR HEMOGLOBIN 29.5 pg (27.0-31.0); MEAN PLATELET VOLUME 10.2 fL (7.2-11.7); MONO # 0.9 K/uL (0.0-0.8); MONO % 8.1 % (0.0-10.0); NEUT % 80.4 % (50.0-75.0); PLATELET COUNT 418 K/uL (130-400); RBC 3.18 Mil/uL (4.40-5.90); RED CELL DISTRIBUTION WIDTH 13.7 % (11.5-14.5); WHITE BLOOD COUNT 11.3 K/uL (4.8-10.8)
[2018-01-06] MEDS: (Novolin R) Insulin Human Regular 100 units/ml vial SC SCH ×4 (06:36→18:22)
[2018-01-06 06:50] LABS: ALB/GLOB RATIO 0.7 (1.0-2.1); ALBUMIN 2.4 g/dL (3.5-5.0); ALT/SGPT 18 U/L (21-72); AST/SGOT 31 U/L (17-59); BLOOD UREA NITROGEN 51 mg/dL (9-20); CALCIUM 10.3 mg/dl (8.6-10.4); GFR AFRICAN-AMERICAN > 60; GFR NON-AFRICAN AMERICAN 59
[2018-01-06 09:05] LABS: EOSINOPHIL 3 % (0-4); NEUTROPHIL 78 % (50-75); TOTAL CELLS COUNTED 100
[2018-01-06 09:06] LABS: BANDS 2 % (0-2); LYMPHOCYTE 10 % (20-40); MONOCYTE 7 % (0-10); PLATELET ESTIMATE NORMAL (NORMAL)
--- NOTE | 2018-01-06 09:42 | CP.PCM.PN ---
<Rafi Ferrari - Last Filed: 01/06/18 14:46> Subjective - Date & Time of Evaluation Date of Evaluation: 01/06/18 Time of Evaluation: 09:42 - Subjective Subjective: PGY-[address] Milan's Cardio service: Pt seen and examined at bedside. Nursing reports not acute events overnight. Pt deneis chest pain or shortness of breath. Objective - Vital Signs/Intake and Output Vital Signs (last 24 hours): Temp Pulse Resp BP Pulse Ox 98.6 F 111 H 22 120/77 100 01/06/18 04:00 01/06/18 08:01 01/06/18 08:01 01/06/18 08:01 01/06/18 08:01 - Medications Medications: Current Medications Albuterol/Ipratropium (Duoneb 3 Mg/0.5 Mg (3 Ml) Ud) 3 ml INH RQ6 [facility] Last Admin: 01/06/18 07:36 Dose: 3 ml Aspirin (Aspirin) 325 mg PO DAILY [facility] Last Admin: 01/05/18 09:46 Dose: 325 mg Heparin Sodium (Porcine) (Heparin) 5,000 units SC Q12 [facility] Last Admin: 01/05/18 21:19 Dose: 5,000 units Metronidazole (Flagyl) 500 mg in 100 mls @ 100 mls/hr IVPB Q8H [facility] PRN Reason: Protocol Last Admin: 01/06/18 02:00 Dose: 100 mls/hr Insulin Detemir (Levemir) 15 unit SC Q12 [facility] Last Admin: 01/05/18 21:19 Dose: 15 unit Insulin Human Regular (Novolin R) 0 unit SC Q6H [facility] PRN Reason: Protocol Last Admin: 01/06/18 06:36 Dose: Not Given Metoprolol Tartrate (Lopressor) 25 mg PO BID [facility] Last Admin: 01/05/18 18:25 Dose: 25 mg Ondansetron HCl (Zofran Inj) 4 mg IVP Q6H PRN PRN Reason: Nausea/Vomiting Oxycodone/Acetaminophen (Percocet 5/325 Mg Tab) 1 tab PO Q4H PRN PRN Reason: Pain, moderate (4-7) Stop: 01/07/18 20:10 Last Admin: 01/05/18 04:38 Dose: 1 tab Pantoprazole Sodium (Protonix Inj) 40 mg IVP Q12H [facility] Last Admin: 01/05/18 21:19 Dose: 40 mg Rosuvastatin Calcium (Crestor) 20 mg PO HS [facility] Last Admin: 01/05/18 21:19 Dose: 20 mg Sertraline HCl (Zoloft) 25 mg PO DAILY [facility] Last Admin: 01/05/18 09:47 Dose: 25 mg Trazodone HCl (Desyrel) 25 mg PO HS [facility] Last Admin: 01/05/18 21:19 Dose: 25 mg - Labs Labs: 01/06/18 06:21 01/06/18 06:21 PT 12.5 SECONDS (9.7-12.2) H 12/22/17 16:18 INR 1.1 12/22/17 16:18 APTT 48 SECONDS (21-34) H D 12/28/17 05:53 - Additional Findings Additional findings: - Constitutional Appears: Non-toxic, No Acute Distress - Head Exam Head Exam: ATRAUMATIC, NORMAL INSPECTION, NORMOCEPHALIC - Eye Exam Eye Exam: EOMI, Normal appearance - ENT Exam ENT Exam: Mucous Membranes Moist, Normal Exam - feeding tube in place - Neck Exam Neck Exam: Full ROM, Normal Inspection - Respiratory Exam Respiratory Exam: NORMAL BREATHING PATTERN - Cardiovascular Exam Cardiovascular Exam: REGULAR RHYTHM, +S1, +S2 - GI/Abdominal Exam GI & Abdominal Exam: Soft. 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 Grade I abnml relaxation pattern. Mild Aortic regurgitation. Lopressor 12.5mg PO BID Afib/HTN BP well controlled Afib on monitor rate controlled Lopressor 12.5mg PO BID Rafi Ferrari PGY-2 D/w Dr. Milan <Brandon Milan - Last Filed: 01/06/18 23:08> Objective - Vital Signs/Intake and Output Vital Signs (last 24 hours): Temp Pulse Resp BP Pulse Ox 97.4 F L 94 H 16 137/77 95 01/06/18 20:00 01/06/18 18:00 01/06/18 18:00 01/06/18 18:22 01/06/18 18:00 Intake and Output: 01/06/18 01/07/18 18:59 06:59 Intake Total 960 Output Total 300 Balance 660 - Medications Medications: Current Medications Albuterol/Ipratropium (Duoneb 3 Mg/0.5 Mg (3 Ml) Ud) 3 ml INH RQ6 [facility] Last Admin: 01/06/18 19:26 Dose: 3 ml Aspirin (Aspirin) 325 mg PO DAILY [facility] Last Admin: 01/06/18 09:52 Dose: 325 mg Heparin Sodium (Porcine) (Heparin) 5,000 units SC Q12 [facility] Last Admin: 01/06/18 21:22 Dose: 5,000 units Insulin Detemir (Levemir) 15 unit SC Q12 [facility] Last Admin: 01/06/18 21:22 Dose: 15 unit Insulin Human Regular (Novolin R) 0 unit SC Q6H [facility] PRN Reason: Protocol Last Admin: 01/06/18 18:22 Dose: 6 unit Metoprolol Tartrate (Lopressor) 25 mg PO BID [facility] Last Admin: 01/06/18 18:22 Dose: 25 mg Ondansetron HCl (Zofran Inj) 4 mg IVP Q6H PRN PRN Reason: Nausea/Vomiting Oxycodone/Acetaminophen (Percocet 5/325 Mg Tab) 1 tab PO Q4H PRN PRN Reason: Pain, moderate (4-7) Stop: 01/07/18 20:10 Last Admin: 01/05/18 04:38 Dose: 1 tab Pantoprazole Sodium (Protonix Inj) 40 mg IVP Q12H [facility] Last Admin: 01/06/18 21:22 Dose: 40 mg Rosuvastatin Calcium (Crestor) 20 mg PO HS [facility] Last Admin: 01/06/18 21:22 Dose: 20 mg Sertraline HCl (Zoloft) 25 mg PO DAILY [facility] Last Admin: 01/06/18 09:53 Dose: 25 mg Trazodone HCl (Desyrel) 25 mg PO HS [facility] Last Admin: 01/06/18 21:22 Dose: 25 mg - Labs Labs: 01/06/18 06:21 01/06/18 06:21 PT 12.5 SECONDS (9.7-12.2) H 12/22/17 16:18 INR 1.1 12/22/17 16:18 APTT 48 SECONDS (21-34) H D 12/28/17 05:53 Assessment and Plan - Assessment and Plan (Free Text) Plan: Patient seen and evaluated personally by me Plan of care d/w the medical technologist chief and as documented
[2018-01-06] MEDS: Insulin Detemir 100 units/ml Vial (Levemir) SC SCH ×2 (09:52→21:22)
--- NOTE | 2018-01-06 09:53 | CP.PCM.PN ---
Subjective - Date & Time of Evaluation Date of Evaluation: 01/06/18 - Subjective Subjective: Pt seen and evalauted today Objective - Vital Signs/Intake and Output Vital Signs (last 24 hours): Temp Pulse Resp BP Pulse Ox 98.6 F 111 H 22 120/77 100 01/06/18 04:00 01/06/18 08:01 01/06/18 08:01 01/06/18 08:01 01/06/18 08:01 - Medications Medications: Current Medications Albuterol/Ipratropium (Duoneb 3 Mg/0.5 Mg (3 Ml) Ud) 3 ml INH RQ6 [facility] Last Admin: 01/06/18 07:36 Dose: 3 ml Aspirin (Aspirin) 325 mg PO DAILY [facility] Last Admin: 01/05/18 09:46 Dose: 325 mg Heparin Sodium (Porcine) (Heparin) 5,000 units SC Q12 [facility] Last Admin: 01/05/18 21:19 Dose: 5,000 units Metronidazole (Flagyl) 500 mg in 100 mls @ 100 mls/hr IVPB Q8H [facility] PRN Reason: Protocol Last Admin: 01/06/18 02:00 Dose: 100 mls/hr Insulin Detemir (Levemir) 15 unit SC Q12 [facility] Last Admin: 01/05/18 21:19 Dose: 15 unit Insulin Human Regular (Novolin R) 0 unit SC Q6H [facility] PRN Reason: Protocol Last Admin: 01/06/18 06:36 Dose: Not Given Metoprolol Tartrate (Lopressor) 25 mg PO BID [facility] Last Admin: 01/05/18 18:25 Dose: 25 mg Ondansetron HCl (Zofran Inj) 4 mg IVP Q6H PRN PRN Reason: Nausea/Vomiting Oxycodone/Acetaminophen (Percocet 5/325 Mg Tab) 1 tab PO Q4H PRN PRN Reason: Pain, moderate (4-7) Stop: 01/07/18 20:10 Last Admin: 01/05/18 04:38 Dose: 1 tab Pantoprazole Sodium (Protonix Inj) 40 mg IVP Q12H [facility] Last Admin: 01/05/18 21:19 Dose: 40 mg Rosuvastatin Calcium (Crestor) 20 mg PO HS [facility] Last Admin: 01/05/18 21:19 Dose: 20 mg Sertraline HCl (Zoloft) 25 mg PO DAILY [facility] Last Admin: 01/05/18 09:47 Dose: 25 mg Trazodone HCl (Desyrel) 25 mg PO [facility] Last Admin: 01/05/18 21:19 Dose: 25 mg - Labs Labs: 01/06/18 06:21 01/06/18 06:21 PT 12.5 SECONDS (9.7-12.2) H 12/22/17 16:18 INR 1.1 12/22/17 16:18 APTT 48 SECONDS (21-34) H D 12/28/17 05:53 Assessment and Plan (1) Perforated abdominal viscus Status: Acute (2) Diabetes mellitus Status: Acute (3) GERD (gastroesophageal reflux disease) Status: Acute (4) Acute non-ST elevation myocardial infarction (NSTEMI) Status: Acute
--- NOTE | 2018-01-06 14:26 | CP.PCM.PN ---
Subjective - Date & Time of Evaluation Date of Evaluation: 01/06/18 Time of Evaluation: 14:26 - Subjective Subjective: CHIEF COMPLAINTS TODAY : AFEBRILE NO ACUTE EVENTS VSS ON NGT FEEDINGS DENIES CHEST PAIN. 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 ROS. HEENT : N. Resp : No cough, wheezing ,pleuritic CP ,or hemoptysis Cardio : No anginal CP, PND, orthopnea, palpitation GI : +VE ABDOMINAL PAIN, NO n/v ,diarrhea or GI bleeding . 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 Musculoskel : No joint swelling , Derm : No rash Psych : Normal affect. Ext : No swelling ,calf pain PE. Pt. awake in no distress. V.S As noted in the chart Head ,ear nose,throat and eyes : Normal. Neck : Supple with normal carotids. Lungs: DIMINISHED BS AT BASIS. Heart : S1 & S2 normal with S4. No murmur. Abd : SOFT, MILD TENDERNESS POSTOPERATIVE SITE +VE BETH + SEROSANGIOUS DRAINAGE Midline incision with panda in place, no erythema or drainage noted. DRESSING DRY ,CLEAN. Neuro : Moves all ext. with no localized deficit. Ext : No edema with intact pulses.Non tender calves Derm : No rashes or decubitus ulcer. LABS/RADIOLOGY: REVIEWED CTCHEST-NOTED CXR 12/31/17 MINIMAL CHF/AND B/L ATELECTASIS. BLOOD CULTURES 12/26/17 -VE GROWTH TO DATE. Objective - Vital Signs/Intake and Output Vital Signs (last 24 hours): Temp Pulse Resp BP Pulse Ox 98.6 F 98 H 16 124/75 99 01/06/18 12:00 01/06/18 12:01 01/06/18 12:01 01/06/18 12:01 01/06/18 12:01 - Medications Medications: Current Medications Albuterol/Ipratropium (Duoneb 3 Mg/0.5 Mg (3 Ml) Ud) 3 ml INH RQ6 [facility] Last Admin: 01/06/18 07:36 Dose: 3 ml Aspirin (Aspirin) 325 mg PO DAILY [facility] Last Admin: 01/06/18 09:52 Dose: 325 mg Heparin Sodium (Porcine) (Heparin) 5,000 units SC Q12 [facility] Last Admin: 01/06/18 09:52 Dose: 5,000 units Metronidazole (Flagyl) 500 mg in 100 mls @ 100 mls/hr IVPB Q8H [facility] PRN Reason: Protocol Last Admin: 01/06/18 10:00 Dose: 100 mls/hr Insulin Detemir (Levemir) 15 unit SC Q12 [facility] Last Admin: 01/06/18 09:52 Dose: 15 unit Insulin Human Regular (Novolin R) 0 unit SC Q6H [facility] PRN Reason: Protocol Last Admin: 01/06/18 06:36 Dose: Not Given Metoprolol Tartrate (Lopressor) 25 mg PO BID [facility] Last Admin: 01/06/18 09:52 Dose: 25 mg Ondansetron HCl (Zofran Inj) 4 mg IVP Q6H PRN PRN Reason: Nausea/Vomiting Oxycodone/Acetaminophen (Percocet 5/325 Mg Tab) 1 tab PO Q4H PRN PRN Reason: Pain, moderate (4-7) Stop: 01/07/18 20:10 Last Admin: 01/05/18 04:38 Dose: 1 tab Pantoprazole Sodium (Protonix Inj) 40 mg IVP Q12H [facility] Last Admin: 01/06/18 09:51 Dose: 40 mg Rosuvastatin Calcium (Crestor) 20 mg PO [facility] Last Admin: 01/05/18 21:19 Dose: 20 mg Sertraline HCl (Zoloft) 25 mg PO DAILY [facility] Last Admin: 01/06/18 09:53 Dose: 25 mg Trazodone HCl (Desyrel) 25 mg PO [facility] Last Admin: 01/05/18 21:19 Dose: 25 mg - Labs Labs: 01/06/18 06:21 01/06/18 06:21 PT 12.5 SECONDS (9.7-12.2) H 12/22/17 16:18 INR 1.1 12/22/17 16:18 APTT 48 SECONDS (21-34) H D 12/28/17 05:53 Assessment and Plan (1) Sepsis associated hypotension Status: Acute (2) Perforated abdominal viscus Status: Acute (3) Status post exploratory laparotomy Status: Acute (4) Acute non-ST elevation myocardial infarction (NSTEMI) Status: Acute (5) CHF (congestive heart failure) Status: Acute (6) Diabetes mellitus Status: Acute - Assessment and Plan (Free Text) Plan: DC IV Flagyl 500 every 8 hourly 12/22/17--01/06/18 F/U BLOOD WORKS. CASE DISCUSSED WITH RESIDENT.
[2018-01-06] MEDS: traZODone 25 mg Tab PO SCH (21:22)
[2018-01-07] MEDS: Albuterol-Ipratrop 3 mg / 0.5 (3 ml) UD INH SCH ×4 (01:18→19:21)
[2018-01-07] MEDS: (Novolin R) Insulin Human Regular 100 units/ml vial SC SCH ×4 (06:57→17:48)
--- NOTE | 2018-01-07 07:49 | CP.PCM.PN ---
<Rafi Ferrari - Last Filed: 01/07/18 14:13> Subjective - Date & Time of Evaluation Date of Evaluation: 01/07/18 Time of Evaluation: 07:48 - Subjective Subjective: PGY-[address] Milan's Cardio service: Pt seen and examined at bedside. Nursing reports not acute events overnight. Patient resting in chair at bedside. Pt denies chest pain or shortness of breath. Objective - Vital Signs/Intake and Output Vital Signs (last 24 hours): Temp Pulse Resp BP Pulse Ox 98.9 F 70 17 104/71 99 01/07/18 04:00 01/07/18 07:30 01/07/18 06:23 01/07/18 06:23 01/07/18 06:23 - Medications Medications: Current Medications Albuterol/Ipratropium (Duoneb 3 Mg/0.5 Mg (3 Ml) Ud) 3 ml INH RQ6 [facility] Last Admin: 01/07/18 07:26 Dose: 3 ml Aspirin (Aspirin) 325 mg PO DAILY [facility] Last Admin: 01/06/18 09:52 Dose: 325 mg Heparin Sodium (Porcine) (Heparin) 5,000 units SC Q12 [facility] Last Admin: 01/06/18 21:22 Dose: 5,000 units Insulin Detemir (Levemir) 15 unit SC Q12 [facility] Last Admin: 01/06/18 21:22 Dose: 15 unit Insulin Human Regular (Novolin R) 0 unit SC Q6H [facility] PRN Reason: Protocol Last Admin: 01/07/18 06:57 Dose: Not Given Metoprolol Tartrate (Lopressor) 25 mg PO BID [facility] Last Admin: 01/06/18 18:22 Dose: 25 mg Ondansetron HCl (Zofran Inj) 4 mg IVP Q6H PRN PRN Reason: Nausea/Vomiting Oxycodone/Acetaminophen (Percocet 5/325 Mg Tab) 1 tab PO Q4H PRN PRN Reason: Pain, moderate (4-7) Stop: 01/07/18 20:10 Last Admin: 01/05/18 04:38 Dose: 1 tab Pantoprazole Sodium (Protonix Inj) 40 mg IVP Q12H [facility] Last Admin: 01/06/18 21:22 Dose: 40 mg Rosuvastatin Calcium (Crestor) 20 mg PO HS [facility] Last Admin: 01/06/18 21:22 Dose: 20 mg Sertraline HCl (Zoloft) 25 mg PO DAILY [facility] Last Admin: 01/06/18 09:53 Dose: 25 mg Trazodone HCl (Desyrel) 25 mg PO HS [facility] Last Admin: 01/06/18 21:22 Dose: 25 mg - Labs Labs: 01/06/18 06:21 01/06/18 06:21 PT 12.5 SECONDS (9.7-12.2) H 12/22/17 16:18 INR 1.1 12/22/17 16:18 APTT 48 SECONDS (21-34) H D 12/28/17 05:53 - Additional Findings Additional findings: - Constitutional Appears: Non-toxic, No Acute Distress - Head Exam Head Exam: ATRAUMATIC, NORMAL INSPECTION, NORMOCEPHALIC - Eye Exam Eye Exam: EOMI, Normal appearance - ENT Exam ENT Exam: Mucous Membranes Moist, Normal Exam - feeding tube in place - Neck Exam Neck Exam: Full ROM, Normal Inspection - Respiratory Exam Respiratory Exam: NORMAL BREATHING PATTERN - Cardiovascular Exam Cardiovascular Exam: REGULAR RHYTHM, +S1, +S2 - GI/Abdominal Exam GI & Abdominal Exam: Soft. 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 Grade I abnml relaxation pattern. Mild Aortic regurgitation. Lopressor 12.5mg PO BID Afib/HTN BP well controlled Afib on monitor rate controlled Lopressor 12.5mg PO BID Rafi Ferrari PGY-2 D/w Dr. Milan <Brandon Milan - Last Filed: 01/07/18 20:55> Objective - Vital Signs/Intake and Output Vital Signs (last 24 hours): Temp Pulse Resp BP Pulse Ox 98.2 F 82 17 126/75 97 01/07/18 16:00 01/07/18 18:00 01/07/18 18:00 01/07/18 17:10 01/07/18 18:00 Intake and Output: 01/07/18 01/08/18 18:59 06:59 Intake Total 0 Balance 0 - Medications Medications: Current Medications Albuterol/Ipratropium (Duoneb 3 Mg/0.5 Mg (3 Ml) Ud) 3 ml INH RQ6 [facility] Last Admin: 01/07/18 19:21 Dose: 3 ml Aspirin (Aspirin) 325 mg PO DAILY [facility] Last Admin: 01/07/18 10:24 Dose: 325 mg Heparin Sodium (Porcine) (Heparin) 5,000 units SC Q12 [facility] Last Admin: 01/07/18 10:25 Dose: 5,000 units Insulin Detemir (Levemir) 15 unit SC Q12 [facility] Last Admin: 01/07/18 10:26 Dose: 15 unit Insulin Human Regular (Novolin R) 0 unit SC Q6H [facility] PRN Reason: Protocol Last Admin: 01/07/18 17:48 Dose: 2 unit Metoprolol Tartrate (Lopressor) 25 mg PO BID [facility] Last Admin: 01/07/18 17:10 Dose: 25 mg Ondansetron HCl (Zofran Inj) 4 mg IVP Q6H PRN PRN Reason: Nausea/Vomiting Pantoprazole Sodium (Protonix Susp) 40 mg PO DAILY [facility] Last Admin: 01/07/18 10:26 Dose: 40 mg Rosuvastatin Calcium (Crestor) 20 mg PO HS [facility] Last Admin: 01/06/18 21:22 Dose: 20 mg Sertraline HCl (Zoloft) 25 mg PO DAILY [facility] Last Admin: 01/07/18 10:26 Dose: 25 mg Trazodone HCl (Desyrel) 25 mg PO HS [facility] Last Admin: 01/06/18 21:22 Dose: 25 mg - Labs Labs: 01/06/18 06:21 01/06/18 06:21 PT 12.5 SECONDS (9.7-12.2) H 04/13/18 16:18 INR 1.1 12/22/17 16:18 APTT 48 SECONDS (21-34) H D 12/28/17 05:53 Assessment and Plan - Assessment and Plan (Free Text) Plan: Patient seen and evaluated Plan of care d/w the medical sales associate and as documented
[2018-01-07] MEDS: Pantoprazole 40 mg Susp UD PO SCH (10:26)
[2018-01-07] MEDS: Insulin Detemir 100 units/ml Vial (Levemir) SC SCH ×2 (10:26→21:38)
[2018-01-07] MEDS: traZODone 25 mg Tab PO SCH (21:39)
--- NOTE | 2018-01-08 01:02 | CP.PCM.PN ---
Subjective - Date & Time of Evaluation Date of Evaluation: 01/07/18 Time of Evaluation: 19:00 - Subjective Subjective: Pt seen and examined at bedside Objective - Vital Signs/Intake and Output Vital Signs (last 24 hours): Temp Pulse Resp BP Pulse Ox 98.2 F 82 17 126/75 97 01/07/18 16:00 01/07/18 18:00 01/07/18 18:00 01/07/18 17:10 01/07/18 18:00 Intake and Output: 01/07/18 01/08/18 18:59 06:59 Intake Total 0 Balance 0 - Medications Medications: Current Medications Albuterol/Ipratropium (Duoneb 3 Mg/0.5 Mg (3 Ml) Ud) 3 ml INH RQ6 [facility] Last Admin: 01/07/18 19:21 Dose: 3 ml Aspirin (Aspirin) 325 mg PO DAILY [facility] Last Admin: 01/07/18 10:24 Dose: 325 mg Heparin Sodium (Porcine) (Heparin) 5,000 units SC Q12 [facility] Last Admin: 01/07/18 21:37 Dose: 5,000 units Insulin Detemir (Levemir) 15 unit SC Q12 [facility] Last Admin: 01/07/18 21:38 Dose: 15 unit Insulin Human Regular (Novolin R) 0 unit SC Q6H [facility] PRN Reason: Protocol Last Admin: 01/07/18 17:48 Dose: 2 unit Metoprolol Tartrate (Lopressor) 25 mg PO BID [facility] Last Admin: 01/07/18 17:10 Dose: 25 mg Ondansetron HCl (Zofran Inj) 4 mg IVP Q6H PRN PRN Reason: Nausea/Vomiting Pantoprazole Sodium (Protonix Susp) 40 mg PO DAILY [facility] Last Admin: 01/07/18 10:26 Dose: 40 mg Rosuvastatin Calcium (Crestor) 20 mg PO HS [facility] Last Admin: 01/07/18 21:38 Dose: 20 mg Sertraline HCl (Zoloft) 25 mg PO DAILY [facility] Last Admin: 01/07/18 10:26 Dose: 25 mg Trazodone HCl (Desyrel) 25 mg PO HS [facility] Last Admin: 01/07/18 21:39 Dose: 25 mg - Labs Labs: 01/06/18 06:21 01/06/18 06:21 PT 12.5 SECONDS (9.7-12.2) H 12/22/17 16:18 INR 1.1 12/22/17 16:18 APTT 48 SECONDS (21-34) H D 12/28/17 05:53 Assessment and Plan (1) Perforated abdominal viscus Status: Acute (2) Diabetes mellitus Status: Acute (3) GERD (gastroesophageal reflux disease) Status: Acute (4) Acute non-ST elevation myocardial infarction (NSTEMI) Status: Acute
[2018-01-08] MEDS: Albuterol-Ipratrop 3 mg / 0.5 (3 ml) UD INH SCH ×4 (01:15→20:27)
[2018-01-08] MEDS: (Novolin R) Insulin Human Regular 100 units/ml vial SC SCH ×4 (06:52→18:21)
[2018-01-08 07:11] LABS: BLOOD UREA NITROGEN 36 mg/dL (9-20); CALCIUM 10.1 mg/dl (8.6-10.4); GFR AFRICAN-AMERICAN > 60; GFR NON-AFRICAN AMERICAN > 60
[2018-01-08] MEDS: Insulin Detemir 100 units/ml Vial (Levemir) SC SCH ×2 (09:41→21:23)
[2018-01-08] MEDS: Pantoprazole 40 mg Susp UD PO SCH (09:41)
--- NOTE | 2018-01-08 14:03 | CP.PCM.PN ---
<Rafi Ferrari - Last Filed: 01/08/18 20:55> Subjective - Date & Time of Evaluation Date of Evaluation: 01/08/18 Time of Evaluation: 14:02 - Subjective Subjective: PGY-[address] Milan's Cardio service: Pt seen and examined at bedside. Nursing reports not acute events overnight. Patient resting in chair at bedside. Pt denies chest pain or shortness of breath. Objective - Vital Signs/Intake and Output Vital Signs (last 24 hours): Temp Pulse Resp BP Pulse Ox 98.3 F 81 14 109/35 L 97 01/08/18 12:00 01/08/18 13:00 01/08/18 13:00 01/08/18 12:01 01/08/18 13:00 Intake and Output: 01/08/18 01/08/18 06:59 18:59 Intake Total 360 360 Output Total 420 Balance -60 360 - Medications Medications: Current Medications Albuterol/Ipratropium (Duoneb 3 Mg/0.5 Mg (3 Ml) Ud) 3 ml INH RQ6 [facility] Last Admin: 01/08/18 13:23 Dose: 3 ml Aspirin (Aspirin) 325 mg PO DAILY [facility] Last Admin: 01/08/18 09:40 Dose: 325 mg Heparin Sodium (Porcine) (Heparin) 5,000 units SC Q12 [facility] Last Admin: 01/08/18 09:40 Dose: 5,000 units Insulin Detemir (Levemir) 15 unit SC Q12 [facility] Last Admin: 01/08/18 09:41 Dose: 15 unit Insulin Human Regular (Novolin R) 0 unit SC Q6H [facility] PRN Reason: Protocol Last Admin: 01/08/18 11:44 Dose: Not Given Metoprolol Tartrate (Lopressor) 25 mg PO BID [facility] Last Admin: 01/08/18 09:41 Dose: 25 mg Ondansetron HCl (Zofran Inj) 4 mg IVP Q6H PRN PRN Reason: Nausea/Vomiting Pantoprazole Sodium (Protonix Susp) 40 mg PO DAILY [facility] Last Admin: 01/08/18 09:41 Dose: 40 mg Rosuvastatin Calcium (Crestor) 20 mg PO HS [facility] Last Admin: 01/07/18 21:38 Dose: 20 mg Sertraline HCl (Zoloft) 25 mg PO DAILY [facility] Last Admin: 01/08/18 09:40 Dose: 25 mg Trazodone HCl (Desyrel) 25 mg PO HS [facility] Last Admin: 01/07/18 21:39 Dose: 25 mg - Labs Labs: 01/06/18 06:21 01/08/18 06:20 PT 12.5 SECONDS (9.7-12.2) H 12/22/17 16:18 INR 1.1 12/22/17 16:18 APTT 48 SECONDS (21-34) H D 12/28/17 05:53 - Additional Findings Additional findings: - Constitutional Appears: Non-toxic, No Acute Distress - Head Exam Head Exam: ATRAUMATIC, NORMAL INSPECTION, NORMOCEPHALIC - Eye Exam Eye Exam: EOMI, Normal appearance - ENT Exam ENT Exam: Mucous Membranes Moist, Normal Exam - feeding tube in place - Neck Exam Neck Exam: Full ROM, Normal Inspection - Respiratory Exam Respiratory Exam: NORMAL BREATHING PATTERN - Cardiovascular Exam Cardiovascular Exam: REGULAR RHYTHM, +S1, +S2 - GI/Abdominal Exam GI & Abdominal Exam: Soft. 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 Grade I abnml relaxation pattern. Mild Aortic regurgitation. Lopressor 12.5mg PO BID Afib/HTN BP well controlled Afib on monitor rate controlled Lopressor 12.5mg PO BID Rafi Ferrari PGY-2 D/w Dr. Milan <Brandon Milan - Last Filed: 01/10/18 06:41> Objective - Vital Signs/Intake and Output Vital Signs (last 24 hours): Temp Pulse Resp BP Pulse Ox 99.4 F 108 H 26 H 102/58 L 99 01/10/18 00:00 01/10/18 06:00 01/10/18 06:00 01/10/18 04:01 01/10/18 06:00 Intake and Output: 01/09/18 01/10/18 18:59 06:59 Intake Total 860 1800 Output Total 500 300 Balance 360 1500 - Medications Medications: Current Medications Albuterol/Ipratropium (Duoneb 3 Mg/0.5 Mg (3 Ml) Ud) 3 ml INH RQ6 [facility] Last Admin: 01/10/18 02:28 Dose: 3 ml Aspirin (Aspirin) 325 mg PO DAILY [facility] Last Admin: 01/09/18 09:11 Dose: 325 mg Heparin Sodium (Porcine) (Heparin) 5,000 units SC Q12H [facility] Last Admin: 01/10/18 01:53 Dose: 5,000 units Insulin Detemir (Levemir) 15 unit SC Q12 [facility] Last Admin: 01/09/18 21:44 Dose: 15 unit Insulin Human Regular (Novolin R) 0 unit SC Q6H [facility] PRN Reason: Protocol Last Admin: 01/10/18 05:38 Dose: 2 unit Metoprolol Tartrate (Lopressor) 25 mg PO BID [facility] Last Admin: 01/09/18 17:12 Dose: 25 mg Ondansetron HCl (Zofran Inj) 4 mg IVP Q6H PRN PRN Reason: Nausea/Vomiting Pantoprazole Sodium (Protonix Susp) 40 mg PO DAILY [facility] Last Admin: 01/09/18 09:12 Dose: 40 mg Rosuvastatin Calcium (Crestor) 20 mg PO [facility] Last Admin: 01/09/18 21:47 Dose: 20 mg Sertraline HCl (Zoloft) 25 mg PO DAILY [facility] Last Admin: 01/09/18 09:11 Dose: 25 mg Trazodone HCl (Desyrel) 25 mg PO [facility] Last Admin: 01/09/18 21:47 Dose: 25 mg - Labs Labs: 01/09/18 06:44 01/09/18 06:41 PT 12.5 SECONDS (9.7-12.2) H 12/22/17 16:18 INR 1.1 12/22/17 16:18 APTT 48 SECONDS (21-34) H D 12/28/17 05:53 Assessment and Plan - Assessment and Plan (Free Text) Plan: Patient seen and evaluated personally by me Plan of care d/w the resident and as documented
[2018-01-08] MEDS: traZODone 25 mg Tab PO SCH (21:23)
--- NOTE | 2018-01-08 22:45 | CP.PCM.PN ---
Subjective - Date & Time of Evaluation Date of Evaluation: 01/08/18 Time of Evaluation: 22:45 - Subjective Subjective: CHIEF COMPLAINTS TODAY : AFEBRILE NO ACUTE EVENTS VSS, ON VENTIMASK DENIES CHEST PAIN. s/p cardiac catheterization 12/28/17- triple vessel disease Patient for cardiothoracic surgical evaluation for CABG as noted. ROS. HEENT : N. Resp : No cough, wheezing ,pleuritic CP ,or hemoptysis Cardio : No anginal CP, PND, orthopnea, palpitation GI : SOFT +VE MILD ABD.DISCOMFORT, NO n/v ,diarrhea or GI bleeding . 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 Musculoskel : No joint swelling , Derm : No rash Psych : Normal affect. Ext : No swelling ,calf pain PE. Pt. awake in no distress. V.S As noted in the chart Head ,ear nose,throat and eyes : Normal. Neck : Supple with normal carotids. Lungs: DIMINISHED BS AT BASIS. Heart : S1 & S2 normal with S4. No murmur. Abd : SOFT, MILD TENDERNESS POST OPERATIVE SITE Midline incision with panda in place, no erythema or drainage noted. DRESSING DRY ,CLEAN. Neuro : Moves all ext. with no localized deficit. Ext : No edema with intact pulses.Non tender calves Derm : No rashes or decubitus ulcer. LABS/RADIOLOGY: REVIEWED CT CHEST-NOTED CXR 12/31/17 MINIMAL CHF/AND B/L ATELECTASIS. BLOOD CULTURES 12/26/17 -VE GROWTH TO DATE. Objective - Vital Signs/Intake and Output Vital Signs (last 24 hours): Temp Pulse Resp BP Pulse Ox 98.5 F 90 17 127/58 L 99 01/08/18 16:00 01/08/18 20:01 01/08/18 20:01 01/08/18 20:01 01/08/18 20:01 Intake and Output: 01/08/18 01/09/18 18:59 06:59 Intake Total 690 Output Total 400 Balance 290 - Medications Medications: Current Medications Albuterol/Ipratropium (Duoneb 3 Mg/0.5 Mg (3 Ml) Ud) 3 ml INH RQ6 [facility] Last Admin: 01/08/18 20:27 Dose: 3 ml Aspirin (Aspirin) 325 mg PO DAILY [facility] Last Admin: 01/08/18 09:40 Dose: 325 mg Insulin Detemir (Levemir) 15 unit SC Q12 [facility] Last Admin: 01/08/18 21:23 Dose: 15 unit Insulin Human Regular (Novolin R) 0 unit SC Q6H [facility] PRN Reason: Protocol Last Admin: 01/08/18 18:21 Dose: 2 unit Metoprolol Tartrate (Lopressor) 25 mg PO BID [facility] Last Admin: 01/08/18 18:21 Dose: 25 mg Ondansetron HCl (Zofran Inj) 4 mg IVP Q6H PRN PRN Reason: Nausea/Vomiting Pantoprazole Sodium (Protonix Susp) 40 mg PO DAILY [facility] Last Admin: 01/08/18 09:41 Dose: 40 mg Rosuvastatin Calcium (Crestor) 20 mg PO HS [facility] Last Admin: 01/08/18 21:23 Dose: 20 mg Sertraline HCl (Zoloft) 25 mg PO DAILY [facility] Last Admin: 01/08/18 09:40 Dose: 25 mg Trazodone HCl (Desyrel) 25 mg PO HS [facility] Last Admin: 01/08/18 21:23 Dose: 25 mg - Labs Labs: 01/06/18 06:21 01/08/18 06:20 PT 12.5 SECONDS (9.7-12.2) H 12/22/17 16:18 INR 1.1 12/22/17 16:18 APTT 48 SECONDS (21-34) H D 12/28/17 05:53 Assessment and Plan (1) Sepsis associated hypotension Status: Acute (2) Perforated abdominal viscus Status: Acute (3) Status post exploratory laparotomy Status: Acute (4) Acute non-ST elevation myocardial infarction (NSTEMI) Status: Acute (5) CHF (congestive heart failure) Status: Acute (6) Diabetes mellitus Status: Acute - Assessment and Plan (Free Text) Plan: DC IV Flagyl 500 every 8 hourly 12/22/17--01/06/18 OFF ALL ANTIBIOTICS F/U BLOOD WORKS. CASE DISCUSSED WITH STAFF
--- NOTE | 2018-01-08 23:30 | CP.PCM.PN ---
Subjective - Date & Time of Evaluation Date of Evaluation: 01/08/18 Time of Evaluation: 19:00 - Subjective Subjective: Pt seen and examined at bedside pt c/o some post op pain however his woudn is healing he is on oxygen NG tube present with feeding undergoing Objective - Vital Signs/Intake and Output Vital Signs (last 24 hours): Temp Pulse Resp BP Pulse Ox 98.5 F 90 17 127/58 L 99 01/08/18 16:00 01/08/18 20:01 01/08/18 20:01 01/08/18 20:01 01/08/18 20:01 Intake and Output: 01/08/18 01/09/18 18:59 06:59 Intake Total 690 Output Total 400 Balance 290 - Medications Medications: Current Medications Albuterol/Ipratropium (Duoneb 3 Mg/0.5 Mg (3 Ml) Ud) 3 ml INH RQ6 [facility] Last Admin: 01/08/18 20:27 Dose: 3 ml Aspirin (Aspirin) 325 mg PO DAILY [facility] Last Admin: 01/08/18 09:40 Dose: 325 mg Insulin Detemir (Levemir) 15 unit SC Q12 [facility] Last Admin: 01/08/18 21:23 Dose: 15 unit Insulin Human Regular (Novolin R) 0 unit SC Q6H [facility] PRN Reason: Protocol Last Admin: 01/08/18 18:21 Dose: 2 unit Metoprolol Tartrate (Lopressor) 25 mg PO BID [facility] Last Admin: 01/08/18 18:21 Dose: 25 mg Ondansetron HCl (Zofran Inj) 4 mg IVP Q6H PRN PRN Reason: Nausea/Vomiting Pantoprazole Sodium (Protonix Susp) 40 mg PO DAILY [facility] Last Admin: 01/08/18 09:41 Dose: 40 mg Rosuvastatin Calcium (Crestor) 20 mg PO HS [facility] Last Admin: 01/08/18 21:23 Dose: 20 mg Sertraline HCl (Zoloft) 25 mg PO DAILY [facility] Last Admin: 01/08/18 09:40 Dose: 25 mg Trazodone HCl (Desyrel) 25 mg PO HS [facility] Last Admin: 01/08/18 21:23 Dose: 25 mg - Labs Labs: 01/06/18 06:21 01/08/18 06:20 PT 12.5 SECONDS (9.7-12.2) H 12/22/17 16:18 INR 1.1 12/22/17 16:18 APTT 48 SECONDS (21-34) H D 12/28/17 05:53 - Constitutional Appears: No Acute Distress - Head Exam Head Exam: ATRAUMATIC, NORMAL INSPECTION, NORMOCEPHALIC - Eye Exam Eye Exam: EOMI, Normal appearance, PERRL Pupil Exam: NORMAL ACCOMODATION, PERRL - Respiratory Exam Respiratory Exam: Clear to Ausculation Bilateral, NORMAL BREATHING PATTERN - Cardiovascular Exam Cardiovascular Exam: REGULAR RHYTHM, +S1, +S2. absent: Murmur - GI/Abdominal Exam GI & Abdominal Exam: Soft, Normal Bowel Sounds. absent: Tenderness - Rectal Exam Rectal Exam: Deferred Assessment and Plan (1) Perforated abdominal viscus Status: Acute (2) Diabetes mellitus Status: Acute (3) GERD (gastroesophageal reflux disease) Status: Acute (4) Acute non-ST elevation myocardial infarction (NSTEMI) Status: Acute
[2018-01-09] MEDS: Albuterol-Ipratrop 3 mg / 0.5 (3 ml) UD INH SCH ×4 (01:33→20:05)
[2018-01-09] MEDS: (Novolin R) Insulin Human Regular 100 units/ml vial SC SCH ×4 (06:00→18:09)
[2018-01-09 06:54] LABS: BASO # 0.1 K/uL (0.0-0.2); BASO % 0.7 % (0.0-2.0); EOS # 0.1 K/uL (0.0-0.7); EOS % 1.4 % (0.0-4.0); HEMOGLOBIN 10.1 g/dL (12.0-18.0); LYMPH # 1.1 K/uL (1.0-4.3); LYMPH % 11.5 % (20.0-40.0); MEAN CELL VOLUME 92.3 fL (80.0-94.0); MEAN CORPUSCULAR HEMOGLOBIN 29.8 pg (27.0-31.0); MEAN CORPUSCULAR HGB CONC 32.3 g/dL (33.0-37.0); MEAN PLATELET VOLUME 10.6 fL (7.2-11.7); MONO # 0.8 K/uL (0.0-0.8); MONO % 8.8 % (0.0-10.0); NEUT # 7.3 K/uL (1.8-7.0); NEUT % 77.6 % (50.0-75.0); NRBC % 0.1 % (0.0-2.0); RBC 3.37 Mil/uL (4.40-5.90); RED CELL DISTRIBUTION WIDTH 13.9 % (11.5-14.5); WHITE BLOOD COUNT 9.4 K/uL (4.8-10.8)
[2018-01-09 06:58] LABS: ALB/GLOB RATIO 0.7 (1.0-2.1); ALBUMIN 2.6 g/dL (3.5-5.0); ALT/SGPT 27 U/L (21-72); AST/SGOT 42 U/L (17-59); BLOOD UREA NITROGEN 30 mg/dL (9-20); CALCIUM 10.1 mg/dl (8.6-10.4); GFR AFRICAN-AMERICAN > 60; GFR NON-AFRICAN AMERICAN > 60
[2018-01-09] MEDS: Insulin Detemir 100 units/ml Vial (Levemir) SC SCH ×2 (09:11→21:44)
[2018-01-09] MEDS: Pantoprazole 40 mg Susp UD PO SCH (09:12)
--- NOTE | 2018-01-09 13:34 | RAD ---
HISTORY: chf COMPARISON: 12/31/2017 FINDINGS: LUNGS: No active pulmonary disease. PLEURA: No significant pleural effusion identified, no pneumothorax apparent. CARDIOVASCULAR: Normal heart size. Nasogastric tube extends to left upper quadrant of the abdomen. OSSEOUS STRUCTURES: No significant abnormalities. VISUALIZED UPPER ABDOMEN: Normal. OTHER FINDINGS: None. IMPRESSION: No evidence of pulmonary edema.
--- NOTE | 2018-01-09 16:38 | CP.PCM.PN ---
Subjective - Date & Time of Evaluation Date of Evaluation: 01/09/18 Time of Evaluation: 19:00 - Subjective Subjective: PT SEEN AND EXAMINED, AFEBRILE NO ACUTE EVENTS VSS, ON VENTIMASK DENIES CHEST PAIN. s/p cardiac catheterization 12/28/17- triple vessel disease Patient for cardiothoracic surgical evaluation for CABG as noted. Objective - Vital Signs/Intake and Output Vital Signs (last 24 hours): Temp Pulse Resp BP Pulse Ox 98.2 F 95 H 17 102/62 99 01/09/18 12:00 01/09/18 15:00 01/09/18 15:00 01/09/18 12:01 01/09/18 15:00 Intake and Output: 01/09/18 01/09/18 06:59 18:59 Intake Total 760 Output Total 1001 Balance -241 - Medications Medications: Current Medications Albuterol/Ipratropium (Duoneb 3 Mg/0.5 Mg (3 Ml) Ud) 3 ml INH RQ6 [facility] Last Admin: 01/09/18 13:16 Dose: 3 ml Aspirin (Aspirin) 325 mg PO DAILY [facility] Last Admin: 01/09/18 09:11 Dose: 325 mg Heparin Sodium (Porcine) (Heparin) 5,000 units SC Q12H [facility] Last Admin: 01/09/18 13:28 Dose: 5,000 units Insulin Detemir (Levemir) 15 unit SC Q12 [facility] Last Admin: 01/09/18 09:11 Dose: 15 unit Insulin Human Regular (Novolin R) 0 unit SC Q6H [facility] PRN Reason: Protocol Last Admin: 01/09/18 11:41 Dose: 2 unit Metoprolol Tartrate (Lopressor) 25 mg PO BID [facility] Last Admin: 01/09/18 09:12 Dose: 25 mg Ondansetron HCl (Zofran Inj) 4 mg IVP Q6H PRN PRN Reason: Nausea/Vomiting Pantoprazole Sodium (Protonix Susp) 40 mg PO DAILY [facility] Last Admin: 01/09/18 09:12 Dose: 40 mg Rosuvastatin Calcium (Crestor) 20 mg PO HS [facility] Last Admin: 01/08/18 21:23 Dose: 20 mg Sertraline HCl (Zoloft) 25 mg PO DAILY [facility] Last Admin: 01/09/18 09:11 Dose: 25 mg Trazodone HCl (Desyrel) 25 mg PO HS [facility] Last Admin: 01/08/18 21:23 Dose: 25 mg - Labs Labs: 01/09/18 06:44 01/09/18 06:41 PT 12.5 SECONDS (9.7-12.2) H 12/22/17 16:18 INR 1.1 12/22/17 16:18 APTT 48 SECONDS (21-34) H D 12/28/17 05:53 Assessment and Plan (1) Perforated abdominal viscus Status: Acute (2) Diabetes mellitus Status: Acute (3) GERD (gastroesophageal reflux disease) Status: Acute (4) Acute non-ST elevation myocardial infarction (NSTEMI) Status: Acute
[2018-01-09] MEDS: traZODone 25 mg Tab PO SCH (21:47)
[2018-01-10] MEDS: (Novolin R) Insulin Human Regular 100 units/ml vial SC SCH ×4 (00:08→17:52)
[2018-01-10] MEDS: Albuterol-Ipratrop 3 mg / 0.5 (3 ml) UD INH SCH ×3 (02:28→13:44)
--- NOTE | 2018-01-10 06:27 | CP.PCM.PN ---
Subjective - Date & Time of Evaluation Date of Evaluation: 01/08/18 Time of Evaluation: 16:10 - Subjective Subjective: Patient seen and evaluated On Facemask Remains weak and offers no compaints Objective - Vital Signs/Intake and Output Vital Signs (last 24 hours): Temp Pulse Resp BP Pulse Ox 99.4 F 108 H 26 H 102/58 L 99 01/10/18 00:00 01/10/18 06:00 01/10/18 06:00 01/10/18 04:01 01/10/18 06:00 Intake and Output: 01/09/18 01/10/18 18:59 06:59 Intake Total 860 1800 Output Total 500 300 Balance 360 1500 - Medications Medications: Current Medications Albuterol/Ipratropium (Duoneb 3 Mg/0.5 Mg (3 Ml) Ud) 3 ml INH RQ6 [facility] Last Admin: 01/10/18 02:28 Dose: 3 ml Aspirin (Aspirin) 325 mg PO DAILY [facility] Last Admin: 01/09/18 09:11 Dose: 325 mg Heparin Sodium (Porcine) (Heparin) 5,000 units SC Q12H [facility] Last Admin: 01/10/18 01:53 Dose: 5,000 units Insulin Detemir (Levemir) 15 unit SC Q12 [facility] Last Admin: 01/09/18 21:44 Dose: 15 unit Insulin Human Regular (Novolin R) 0 unit SC Q6H [facility] PRN Reason: Protocol Last Admin: 01/10/18 05:38 Dose: 2 unit Metoprolol Tartrate (Lopressor) 25 mg PO BID [facility] Last Admin: 01/09/18 17:12 Dose: 25 mg Ondansetron HCl (Zofran Inj) 4 mg IVP Q6H PRN PRN Reason: Nausea/Vomiting Pantoprazole Sodium (Protonix Susp) 40 mg PO DAILY [facility] Last Admin: 01/09/18 09:12 Dose: 40 mg Rosuvastatin Calcium (Crestor) 20 mg PO HS [facility] Last Admin: 01/09/18 21:47 Dose: 20 mg Sertraline HCl (Zoloft) 25 mg PO DAILY [facility] Last Admin: 01/09/18 09:11 Dose: 25 mg Trazodone HCl (Desyrel) 25 mg PO HS [facility] Last Admin: 01/09/18 21:47 Dose: 25 mg - Labs Labs: 01/09/18 06:44 05/01/18 06:41 PT 12.5 SECONDS (9.7-12.2) H 12/22/17 16:18 INR 1.1 12/22/17 16:18 APTT 48 SECONDS (21-34) H D 12/28/17 05:53
--- NOTE | 2018-01-10 06:28 | CP.PCM.PN ---
Subjective - Date & Time of Evaluation Date of Evaluation: 01/09/18 Time of Evaluation: 18:05 - Subjective Subjective: Patient seen and evaluated Continue to remain weak Objective - Vital Signs/Intake and Output Vital Signs (last 24 hours): Temp Pulse Resp BP Pulse Ox 99.4 F 108 H 26 H 102/58 L 99 01/10/18 00:00 01/10/18 06:00 01/10/18 06:00 01/10/18 04:01 01/10/18 06:00 Intake and Output: 01/09/18 01/10/18 18:59 06:59 Intake Total 860 1800 Output Total 500 300 Balance 360 1500 - Medications Medications: Current Medications Albuterol/Ipratropium (Duoneb 3 Mg/0.5 Mg (3 Ml) Ud) 3 ml INH RQ6 [facility] Last Admin: 01/10/18 02:28 Dose: 3 ml Aspirin (Aspirin) 325 mg PO DAILY [facility] Last Admin: 01/09/18 09:11 Dose: 325 mg Heparin Sodium (Porcine) (Heparin) 5,000 units SC Q12H [facility] Last Admin: 01/10/18 01:53 Dose: 5,000 units Insulin Detemir (Levemir) 15 unit SC Q12 [facility] Last Admin: 01/09/18 21:44 Dose: 15 unit Insulin Human Regular (Novolin R) 0 unit SC Q6H [facility] PRN Reason: Protocol Last Admin: 01/10/18 05:38 Dose: 2 unit Metoprolol Tartrate (Lopressor) 25 mg PO BID [facility] Last Admin: 01/09/18 17:12 Dose: 25 mg Ondansetron HCl (Zofran Inj) 4 mg IVP Q6H PRN PRN Reason: Nausea/Vomiting Pantoprazole Sodium (Protonix Susp) 40 mg PO DAILY [facility] Last Admin: 01/09/18 09:12 Dose: 40 mg Rosuvastatin Calcium (Crestor) 20 mg PO HS [facility] Last Admin: 01/09/18 21:47 Dose: 20 mg Sertraline HCl (Zoloft) 25 mg PO DAILY [facility] Last Admin: 01/09/18 09:11 Dose: 25 mg Trazodone HCl (Desyrel) 25 mg PO HS [facility] Last Admin: 01/09/18 21:47 Dose: 25 mg - Labs Labs: 01/09/18 06:44 01/09/18 06:41 PT 12.5 SECONDS (9.7-12.2) H 12/22/17 16:18 INR 1.1 12/22/17 16:18 APTT 48 SECONDS (21-34) H D 12/28/17 05:53
[2018-01-10 06:37] LABS: BASO % 0.6 % (0.0-2.0); EOS # 0.1 K/uL (0.0-0.7); EOS % 0.9 % (0.0-4.0); HEMOGLOBIN 8.7 g/dL (12.0-18.0); LYMPH % 12.6 % (20.0-40.0); MEAN CELL VOLUME 92.1 fL (80.0-94.0); MEAN CORPUSCULAR HEMOGLOBIN 30.3 pg (27.0-31.0); MEAN CORPUSCULAR HGB CONC 32.9 g/dL (33.0-37.0); MEAN PLATELET VOLUME 10.6 fL (7.2-11.7); MONO # 0.9 K/uL (0.0-0.8); MONO % 10.7 % (0.0-10.0); NEUT % 75.2 % (50.0-75.0); NRBC % 0.1 % (0.0-2.0); RBC 2.88 Mil/uL (4.40-5.90); RED CELL DISTRIBUTION WIDTH 13.7 % (11.5-14.5)
[2018-01-10 07:06] LABS: ALB/GLOB RATIO 0.8 (1.0-2.1); ALBUMIN 2.6 g/dL (3.5-5.0); ALT/SGPT 39 U/L (21-72); AST/SGOT 50 U/L (17-59); BLOOD UREA NITROGEN 42 mg/dL (9-20); CALCIUM 9.9 mg/dl (8.6-10.4); GFR AFRICAN-AMERICAN > 60; GFR NON-AFRICAN AMERICAN 59
[2018-01-10] MEDS: Pantoprazole 40 mg Susp UD PO SCH (10:05)
[2018-01-10] MEDS: Insulin Detemir 100 units/ml Vial (Levemir) SC SCH ×2 (10:05→21:44)
--- NOTE | 2018-01-10 16:00 | CP.PCM.PN ---
Subjective - Date & Time of Evaluation Date of Evaluation: 01/10/18 Time of Evaluation: 15:58 - Subjective Subjective: PLAN FOR DISPOSITION DISCUSSED WITH DR. PITTMAN AND CONSULTS. PT TO BE REFERRED TO [facility] FOR REHAB AND IF ACCEPTED HE WILL BE D/C'S THERE. PT IS DEPRESSED AND HAS NO DESIRE TO EAT; STILL HAS NGT WITH FEEDINGS IN PLACE. AGREEABLE TO PEG. SURGICAL TEAM TO EVAL PT FOR PEG PLACEMENT. I ALSO SPOKE WITH DR. GUPTA AND PT HAS COMPLETED ABX REGIMEN AND NO LONGER NEEDS ABX. DISCUSSED PLAN WITH DR. BRENNAN AND PT IS NOT A CANDIDATE FOR ANY INTERVENTION PER HIM; PT CAN CONTINUE STATIN, BETA BLOCKERS AND ASA 81 MG LONG HE TOLERATES THESE MEDS. D/C PLAN AT THIS POINT IS PENDING PEG PLACEMENT. DR. PITTMAN TO SEE PT DURING ROUNDS. NO FURTHER ORDERS. Objective - Vital Signs/Intake and Output Vital Signs (last 24 hours): Temp Pulse Resp BP Pulse Ox 97.8 F 87 18 114/70 99 01/10/18 12:00 01/10/18 15:00 01/10/18 15:00 01/10/18 12:01 01/10/18 06:00 Intake and Output: 01/10/18 01/10/18 06:59 18:59 Intake Total 1800 Output Total 300 Balance 1500 - Medications Medications: Current Medications Aspirin (Aspirin) 325 mg PO DAILY [facility] Last Admin: 01/10/18 10:06 Dose: 325 mg Heparin Sodium (Porcine) (Heparin) 5,000 units SC Q12H [facility] Last Admin: 01/10/18 01:53 Dose: 5,000 units Insulin Detemir (Levemir) 15 unit SC Q12 [facility] Last Admin: 01/10/18 10:05 Dose: 15 unit Insulin Human Regular (Novolin R) 0 unit SC Q6H [facility] PRN Reason: Protocol Last Admin: 01/10/18 05:38 Dose: 2 unit Metoprolol Tartrate (Lopressor) 25 mg PO BID [facility] Last Admin: 01/10/18 10:05 Dose: 25 mg Ondansetron HCl (Zofran Inj) 4 mg IVP Q6H PRN PRN Reason: Nausea/Vomiting Pantoprazole Sodium (Protonix Susp) 40 mg PO DAILY [facility] Last Admin: 01/10/18 10:05 Dose: 40 mg Rosuvastatin Calcium (Crestor) 20 mg PO [facility] Last Admin: 01/09/18 21:47 Dose: 20 mg Sertraline HCl (Zoloft) 25 mg PO DAILY [facility] Last Admin: 01/10/18 10:05 Dose: 25 mg Trazodone HCl (Desyrel) 25 mg PO [facility] Last Admin: 01/09/18 21:47 Dose: 25 mg - Labs Labs: 01/10/18 06:25 01/10/18 06:26 PT 12.5 SECONDS (9.7-12.2) H 12/22/17 16:18 INR 1.1 12/22/17 16:18 APTT 48 SECONDS (21-34) H D 12/28/17 05:53
--- NOTE | 2018-01-10 18:54 | CP.PCM.PN ---
<Rafi Ferrari - Last Filed: 01/10/18 18:52> Subjective - Date & Time of Evaluation Date of Evaluation: 01/10/18 Time of Evaluation: 18:52 - Subjective Subjective: PGY-[address] Milan's Cardio service: Pt seen and examined at bedside. Nursing reports not acute events overnight. Patient resting in chair at bedside. Pt denies chest pain or shortness of breath. Objective - Vital Signs/Intake and Output Vital Signs (last 24 hours): Temp Pulse Resp BP Pulse Ox 98.0 F 82 20 115/70 99 01/10/18 18:41 01/10/18 18:41 01/10/18 18:41 01/10/18 18:41 01/10/18 18:41 Intake and Output: 01/10/18 01/10/18 06:59 18:59 Intake Total 1800 Output Total 300 Balance 1500 - Medications Medications: Current Medications Aspirin (Aspirin) 325 mg PO DAILY [facility] Last Admin: 01/10/18 10:06 Dose: 325 mg Heparin Sodium (Porcine) (Heparin) 5,000 units SC Q12H [facility] Last Admin: 01/10/18 14:52 Dose: 5,000 units Insulin Detemir (Levemir) 15 unit SC Q12 [facility] Last Admin: 01/10/18 10:05 Dose: 15 unit Insulin Human Regular (Novolin R) 0 unit SC Q6H [facility] PRN Reason: Protocol Last Admin: 01/10/18 17:52 Dose: 8 unit Metoprolol Tartrate (Lopressor) 25 mg PO BID [facility] Last Admin: 01/10/18 17:52 Dose: 25 mg Ondansetron HCl (Zofran Inj) 4 mg IVP Q6H PRN PRN Reason: Nausea/Vomiting Pantoprazole Sodium (Protonix Susp) 40 mg PO DAILY [facility] Last Admin: 01/10/18 10:05 Dose: 40 mg Rosuvastatin Calcium (Crestor) 20 mg PO [facility] Last Admin: 01/09/18 21:47 Dose: 20 mg Sertraline HCl (Zoloft) 25 mg PO DAILY [facility] Last Admin: 01/10/18 10:05 Dose: 25 mg Trazodone HCl (Desyrel) 25 mg PO HS [facility] Last Admin: 01/09/18 21:47 Dose: 25 mg - Labs Labs: 01/10/18 06:25 01/10/18 06:26 PT 12.5 SECONDS (9.7-12.2) H 12/22/17 16:18 INR 1.1 12/22/17 16:18 APTT 48 SECONDS (21-34) H D 12/28/17 05:53 - Additional Findings Additional findings: - Constitutional Appears: Non-toxic, No Acute Distress - Head Exam Head Exam: ATRAUMATIC, NORMAL INSPECTION, NORMOCEPHALIC - Eye Exam Eye Exam: EOMI, Normal appearance - ENT Exam ENT Exam: Mucous Membranes Moist, Normal Exam - feeding tube in place - Neck Exam Neck Exam: Full ROM, Normal Inspection - Respiratory Exam Respiratory Exam: NORMAL BREATHING PATTERN - Cardiovascular Exam Cardiovascular Exam: REGULAR RHYTHM, +S1, +S2 - GI/Abdominal Exam GI & Abdominal Exam: Soft. 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 Grade I abnml relaxation pattern. Mild Aortic regurgitation. Lopressor 12.5mg PO BID Afib/HTN BP well controlled Afib on monitor rate controlled Lopressor 12.5mg PO BID Disposition: Per primary note, pt stable for discharge to [facility]. Pt not candidate for surgical intervention at this time. Continue ASA, Statin, BB. Rafi Ferrari PGY-2 D/w Dr. Milan <Brandon Milan - Last Filed: 01/10/18 23:26> Objective - Vital Signs/Intake and Output Vital Signs (last 24 hours): Temp Pulse Resp BP Pulse Ox 98.0 F 80 20 115/70 99 01/10/18 18:41 01/10/18 20:28 01/10/18 18:41 01/10/18 18:41 01/10/18 18:41 Intake and Output: 01/10/18 01/11/18 18:59 06:59 Intake Total 90 Output Total 0 Balance 90 - Medications Medications: Current Medications Aspirin (Aspirin) 325 mg PO DAILY [facility] Last Admin: 01/10/18 10:06 Dose: 325 mg Heparin Sodium (Porcine) (Heparin) 5,000 units SC Q12H [facility] Last Admin: 01/10/18 14:52 Dose: 5,000 units Insulin Detemir (Levemir) 15 unit SC Q12 [facility] Last Admin: 01/10/18 21:44 Dose: Not Given Insulin Human Regular (Novolin R) 0 unit SC Q6H [facility] PRN Reason: Protocol Last Admin: 01/10/18 17:52 Dose: 8 unit Metoprolol Tartrate (Lopressor) 25 mg PO BID [facility] Last Admin: 01/10/18 17:52 Dose: 25 mg Ondansetron HCl (Zofran Inj) 4 mg IVP Q6H PRN PRN Reason: Nausea/Vomiting Pantoprazole Sodium (Protonix Susp) 40 mg PO DAILY [facility] Last Admin: 01/10/18 10:05 Dose: 40 mg Rosuvastatin Calcium (Crestor) 20 mg PO [facility] Last Admin: 01/10/18 21:49 Dose: 20 mg Sertraline HCl (Zoloft) 25 mg PO DAILY [facility] Last Admin: 01/10/18 10:05 Dose: 25 mg Trazodone HCl (Desyrel) 25 mg PO HS [facility] Last Admin: 01/10/18 21:49 Dose: 25 mg - Labs Labs: 01/10/18 06:25 01/10/18 06:26 PT 12.5 SECONDS (9.7-12.2) H 12/22/17 16:18 INR 1.1 12/22/17 16:18 APTT 48 SECONDS (21-34) H D 12/28/17 05:53 Assessment and Plan - Assessment and Plan (Free Text) Plan: Patient seen and evaluated personally by nm Plan of care d/w the medical technologist generalist and as documented
[2018-01-10] MEDS: traZODone 25 mg Tab PO SCH (21:49)
--- NOTE | 2018-01-10 22:51 | CP.PCM.PN ---
Subjective - Date & Time of Evaluation Date of Evaluation: 01/10/18 Time of Evaluation: 18:00 Objective - Vital Signs/Intake and Output Vital Signs (last 24 hours): Temp Pulse Resp BP Pulse Ox 98.0 F 80 20 115/70 99 01/10/18 18:41 01/10/18 20:28 01/10/18 18:41 01/10/18 18:41 01/10/18 18:41 Intake and Output: 01/10/18 01/11/18 18:59 06:59 Intake Total 90 Output Total 0 Balance 90 - Medications Medications: Current Medications Aspirin (Aspirin) 325 mg PO DAILY [facility] Last Admin: 01/10/18 10:06 Dose: 325 mg Heparin Sodium (Porcine) (Heparin) 5,000 units SC Q12H [facility] Last Admin: 01/10/18 14:52 Dose: 5,000 units Insulin Detemir (Levemir) 15 unit SC Q12 [facility] Last Admin: 01/10/18 21:44 Dose: Not Given Insulin Human Regular (Novolin R) 0 unit SC Q6H [facility] PRN Reason: Protocol Last Admin: 01/10/18 17:52 Dose: 8 unit Metoprolol Tartrate (Lopressor) 25 mg PO BID [facility] Last Admin: 01/10/18 17:52 Dose: 25 mg Ondansetron HCl (Zofran Inj) 4 mg IVP Q6H PRN PRN Reason: Nausea/Vomiting Pantoprazole Sodium (Protonix Susp) 40 mg PO DAILY [facility] Last Admin: 01/10/18 10:05 Dose: 40 mg Rosuvastatin Calcium (Crestor) 20 mg PO HS [facility] Last Admin: 01/10/18 21:49 Dose: 20 mg Sertraline HCl (Zoloft) 25 mg PO DAILY [facility] Last Admin: 01/10/18 10:05 Dose: 25 mg Trazodone HCl (Desyrel) 25 mg PO HS [facility] Last Admin: 01/10/18 21:49 Dose: 25 mg - Labs Labs: 01/10/18 06:25 01/10/18 06:26 PT 12.5 SECONDS (9.7-12.2) H 12/22/17 16:18 INR 1.1 12/22/17 16:18 APTT 48 SECONDS (21-34) H D 12/28/17 05:53 Assessment and Plan (1) Perforated abdominal viscus Status: Acute (2) Diabetes mellitus Status: Acute (3) GERD (gastroesophageal reflux disease) Status: Acute (4) Acute non-ST elevation myocardial infarction (NSTEMI) Status: Acute
--- NOTE | 2018-01-10 23:22 | CP.PCM.PN ---
Subjective - Date & Time of Evaluation Date of Evaluation: 01/10/18 Time of Evaluation: 23:22 - Subjective Subjective: CHIEF COMPLAINTS TODAY : AFEBRILE NO ACUTE EVENTS VSS, ON VENTIMASK. on NGT feedings no desire to eat DENIES CHEST PAIN/SOB s/p cardiac catheterization 12/28/17- triple vessel disease PT NOT A CANDIDATE FOR SURGERY PER CARDIOLOGY ROS. HEENT : N. Resp : No cough, wheezing ,pleuritic CP ,or hemoptysis Cardio : No anginal CP, PND, orthopnea, palpitation GI : SOFT +VE MILD ABD.DISCOMFORT, NO n/v ,diarrhea or GI bleeding . [employer] : No headache, vertigo, focal deficit. Musculoskel : No joint swelling , Derm : No rash Psych : Normal affect. Ext : No swelling ,calf pain PE. Pt. awake in no distress. V.S As noted in the chart Head ,ear nose,throat and eyes : Normal. Neck : Supple with normal carotids. Lungs: DIMINISHED BS AT BASIS. Heart : S1 & S2 normal with S4. No murmur. Abd : SOFT, MILD TENDERNESS POST OPERATIVE SITE Midline incision with panda in place, no erythema or drainage noted. Neuro : Moves all ext. with no localized deficit. Ext : No edema with intact pulses.Non tender calves Derm : No rashes or decubitus ulcer. LABS/RADIOLOGY: REVIEWED CT CHEST-NOTED CXR 12/31/17 MINIMAL CHF/AND B/L ATELECTASIS. BLOOD CULTURES 12/26/17 -VE GROWTH TO DATE. Objective - Vital Signs/Intake and Output Vital Signs (last 24 hours): Temp Pulse Resp BP Pulse Ox 98.0 F 80 20 115/70 99 01/10/18 18:41 01/10/18 20:28 01/10/18 18:41 01/10/18 18:41 01/10/18 18:41 Intake and Output: 01/10/18 01/11/18 18:59 06:59 Intake Total 90 Output Total 0 Balance 90 - Medications Medications: Current Medications Aspirin (Aspirin) 325 mg PO DAILY [facility] Last Admin: 01/10/18 10:06 Dose: 325 mg Heparin Sodium (Porcine) (Heparin) 5,000 units SC Q12H [facility] Last Admin: 01/10/18 14:52 Dose: 5,000 units Insulin Detemir (Levemir) 15 unit SC Q12 [facility] Last Admin: 01/10/18 21:44 Dose: Not Given Insulin Human Regular (Novolin R) 0 unit SC Q6H [facility] PRN Reason: Protocol Last Admin: 01/10/18 17:52 Dose: 8 unit Metoprolol Tartrate (Lopressor) 25 mg PO BID [facility] Last Admin: 01/10/18 17:52 Dose: 25 mg Ondansetron HCl (Zofran Inj) 4 mg IVP Q6H PRN PRN Reason: Nausea/Vomiting Pantoprazole Sodium (Protonix Susp) 40 mg PO DAILY [facility] Last Admin: 01/10/18 10:05 Dose: 40 mg Rosuvastatin Calcium (Crestor) 20 mg PO HS [facility] Last Admin: 01/10/18 21:49 Dose: 20 mg Sertraline HCl (Zoloft) 25 mg PO DAILY [facility] Last Admin: 01/10/18 10:05 Dose: 25 mg Trazodone HCl (Desyrel) 25 mg PO [facility] Last Admin: 01/10/18 21:49 Dose: 25 mg - Labs Labs: 01/10/18 06:25 01/10/18 06:26 PT 12.5 SECONDS (9.7-12.2) H 12/22/17 16:18 INR 1.1 12/22/17 16:18 APTT 48 SECONDS (21-34) H D 12/28/17 05:53 Assessment and Plan (1) Sepsis associated hypotension Status: Acute (2) Perforated abdominal viscus Assessment & Plan: PT OFF ABX . PANDA IN PLACE. MID ABDOMEN SURGICAL WOUND HEALING. STABLE FROM INF. DISEASE POINT OF VIEW. ON NGT FEEDINGS . ? PEG FOR FEEDINGS. Status: Acute (3) Status post exploratory laparotomy Status: Acute (4) Acute non-ST elevation myocardial infarction (NSTEMI) Assessment & Plan: PER CARDIOLOGY- MEDICAL RX. Status: Acute (5) CHF (congestive heart failure) Status: Acute (6) Diabetes mellitus Status: Acute
[2018-01-11] MEDS: (Novolin R) Insulin Human Regular 100 units/ml vial SC SCH ×4 (00:21→18:32)
[2018-01-11 08:13] LABS: BASO % 0.5 % (0.0-2.0); EOS # 0.1 K/uL (0.0-0.7); EOS % 1.5 % (0.0-4.0); LYMPH % 10.6 % (20.0-40.0); MEAN CELL VOLUME 90.8 fL (80.0-94.0); MEAN PLATELET VOLUME 10.4 fL (7.2-11.7); MONO # 0.9 K/uL (0.0-0.8); MONO % 9.3 % (0.0-10.0); NEUT # 7.4 K/uL (1.8-7.0); NEUT % 78.1 % (50.0-75.0); RBC 3.01 Mil/uL (4.40-5.90); RED CELL DISTRIBUTION WIDTH 13.9 % (11.5-14.5); WHITE BLOOD COUNT 9.4 K/uL (4.8-10.8)
[2018-01-11 08:35] LABS: ALB/GLOB RATIO 0.7 (1.0-2.1); ALBUMIN 2.5 g/dL (3.5-5.0); ALT/SGPT 87 U/L (21-72); AST/SGOT 125 U/L (17-59); BLOOD UREA NITROGEN 39 mg/dL (9-20); CALCIUM 9.7 mg/dl (8.6-10.4); GFR AFRICAN-AMERICAN > 60; GFR NON-AFRICAN AMERICAN > 60
--- NOTE | 2018-01-11 10:14 | CP.PCM.CON ---
History of Present Illness - History of Present Illness History of Present Illness: Palliative consult requested by Gracie LOMAS for goals of care discussion Patient is a 77 yo male admitted from home with abdominal pain, nausea and poor apetite X 4 days. Patient also complained of lower back pain. The CT abdomen and pelvis was significant for bowel perforation and expl lap sugery was performed. patient continued to have poor appetite and refusing meds. NGT was inserted for feedings and meds. PEG tube is being considered if patient's appetite does not improve. PMH: DM, high cholesterol, HTN Soc. Hx: single lives with sister in law, brother , patient is not sure of cause of Fam. Hx: denies known family Hx Review of Systems - Constitutional Constitutional: Weakness - EENT Eyes: absent: As Per HPI, Blind Spots, Blurred Vision, Change in Vision, Decreased Night Vision, Diplopia, Discharge, Dry Eye, Exophthalmos, Floaters, Irritation, Itchy Eyes, Loss of Peripheral Vision, Pain, Photophobia, Requires Corrective Lenses, Sees Flashes, Spots in Vision, Tunnel Vision, Other Visual Disturbances, Loss of Vision, Other Additional comments: NGT - Cardiovascular Cardiovascular: absent: As Per HPI, Acrocyanosis, Chest Pain, Chest Pain at Rest , Chest Pain with Activity, Claudication, Diaphoresis, Dyspnea, Dyspnea on Exertion, Edema, Irregular Heart Rhythm, Pain Radiating to Arm/Neck/Jaw, Leg Edema, Leg Ulcers, Lightheadedness, Orthopnea, Palpitations, Paroxysmal Nocturnal Dyspnea, Pedal Edema, Radiating Pain, Rapid Heart Rate, Slow Heart Rate, Syncope, Other - Respiratory Respiratory: absent: As Per HPI, Cough, Dyspnea, Hemoptysis, Dyspnea on Exertion , Wheezing, Snoring, Stridor, Pain on Inspiration, Chest Congestion, Excessive Mucous Production, Change in Mucous Color, Pain with Coughing, Other - Gastrointestinal Gastrointestinal: Dyspepsia - Genitourinary Genitourinary: Urinary Incontinence - Musculoskeletal Musculoskeletal: Deformity - Integumentary Integumentary: absent: As Per HPI, Acne, Alopecia, Bleeding Lesions, Change in Hair, Change in Nails, Change in Pigmentation, Changing Lesions, Dry Skin, Erythema, Furuncle, Hirsutism, Lesions, New Lesions, Non-Healing Lesions, Photosensitivity, Pruritus, Rash, Skin Pain, Skin Ulcer, Sores, Striae, Swelling , Unusual Bruising, Wounds, Jaundice, Other - Neurological Neurological: Weakness - Psychiatric Psychiatric: Depression - Endocrine Endocrine: absent: As Per HPI, Change in Body Appearance, Change in Libido, Cold Intolorance, Deepening of Voice, Excessive Sweating, Fatigue, Flushing, Heat Intolorance, Increase in Ring/Shoe/Hat Size, Palpitations, Polydipsia, Polyphagia, Polyuria, Other - Hematologic/Lymphatic Hematologic: absent: As Per HPI, Easy Bleeding, Easy Bruising, Lymphadenopathy, Other Past Patient History - Infectious Disease Hx of Infectious Diseases: None - Past Medical History & Family History Past Medical History?: Yes - Past Social History Smoking Status: Never Smoked Alcohol: None Drugs: Denies - CARDIAC Hx Hypercholesterolemia: Yes Hx Hypertension: Yes - PULMONARY Hx Respiratory Disorders: No - NEUROLOGICAL Hx Neurological Disorder: Yes Hx Syncope: Yes - HEENT Hx HEENT Problems: No - RENAL Hx Chronic Kidney Disease: No - ENDOCRINE/METABOLIC Hx Diabetes Mellitus Type 2: Yes - HEMATOLOGICAL/ONCOLOGICAL Hx Blood Disorders: No - INTEGUMENTARY Hx Dermatological Problems: No - MUSCULOSKELETAL/RHEUMATOLOGICAL Hx Arthritis: Yes (L TKR) - GASTROINTESTINAL Hx Gastrointestinal Disorders: Yes Hx Gastroesophageal Reflux: Yes - GENITOURINARY/GYNECOLOGICAL Hx Genitourinary Disorders: No - PSYCHIATRIC Hx Substance Use: No - SURGICAL HISTORY Hx Surgeries: Yes Other/Comment: left knee replacement, and left nerve repair, left and right hand nerve repair - ANESTHESIA Hx Anesthesia: Yes Hx Anesthesia Reactions: No Hx Malignant Hyperthermia: No Has any member of the family had a problem w/ anesthesia?: No Meds Allergies/Adverse Reactions: Allergies Allergy/AdvReac Type Severity Reaction Status Date / Time Penicillins Allergy Mild Verified 12/22/17 11:50 - Medications Medications: Current Medications Aspirin (Aspirin) 325 mg PO DAILY [facility] Last Admin: 01/10/18 10:06 Dose: 325 mg Heparin Sodium (Porcine) (Heparin) 5,000 units SC Q12H [facility] Last Admin: 01/11/18 02:36 Dose: 5,000 units Insulin Detemir (Levemir) 15 unit SC Q12 [facility] Last Admin: 01/10/18 21:44 Dose: Not Given Insulin Human Regular (Novolin R) 0 unit SC Q6H [facility] PRN Reason: Protocol Last Admin: 01/11/18 06:30 Dose: Not Given Metoprolol Tartrate (Lopressor) 25 mg PO BID [facility] Last Admin: 01/10/18 17:52 Dose: 25 mg Ondansetron HCl (Zofran Inj) 4 mg IVP Q6H PRN PRN Reason: Nausea/Vomiting Pantoprazole Sodium (Protonix Susp) 40 mg PO DAILY [facility] Last Admin: 01/10/18 10:05 Dose: 40 mg Rosuvastatin Calcium (Crestor) 20 mg PO [facility] Last Admin: 01/10/18 21:49 Dose: 20 mg Sertraline HCl (Zoloft) 25 mg PO DAILY [facility] Last Admin: 01/10/18 10:05 Dose: 25 mg Trazodone HCl (Desyrel) 25 mg PO [facility] Last Admin: 01/10/18 21:49 Dose: 25 mg Physical Exam - Constitutional Appears: Chronically Ill - Head Exam Head Exam: ATRAUMATIC, NORMOCEPHALIC Additional comments: Neck rigidity and stifness, hyper extended - Eye Exam Eye Exam: EOMI, Normal appearance, PERRL Pupil Exam: NORMAL ACCOMODATION - ENT Exam ENT Exam: Mucous Membranes Dry - Neck Exam Additional comments: contracded - Respiratory Exam Respiratory Exam: NORMAL BREATHING PATTERN - Cardiovascular Exam Cardiovascular Exam: REGULAR RHYTHM - GI/Abdominal Exam GI & Abdominal Exam: Diminished Bowel Sounds - Rectal Exam Rectal Exam: Deferred - Exam Exam: NORMAL INSPECTION - Extremities Exam Extremities exam: Positive for: normal inspection - Back Exam Back exam: NORMAL INSPECTION - Neurological Exam Neurological exam: Alert, Oriented x3 - Psychiatric Exam Psychiatric exam: Depressed, Flat Affect - Skin Skin Exam: Normal Color Results - Vital Signs Recent Vital Signs: Last Vital Signs Temp 97.3 F L 01/11/18 07:40 Pulse 99 H 01/11/18 08:00 Resp 18 01/11/18 07:40 BP 122/65 01/11/18 07:40 Pulse Ox 97 01/11/18 07:40 - Labs Result Diagrams: 01/11/18 07:53 01/11/18 07:53 Labs: Laboratory Results - last 24 hr 01/10/18 01/10/18 01/10/18 11:13 17:40 21:39 WBC RBC Hgb Hct MCV MCH MCHC RDW Plt Count MPV Neut % (Auto) Lymph % (Auto) [place] % (Auto) Eos % (Auto) Baso % (Auto) Neut # (Auto) Lymph # (Auto) [place] # (Auto) Eos # (Auto) Baso # (Auto) Sodium Potassium Chloride Carbon Dioxide Anion Gap BUN Creatinine Est GFR ( Amer) Est GFR (Non-Af Amer) POC Glucose (mg/dL) 242 H 307 H 206 H Random Glucose Calcium Total Bilirubin AST ALT Alkaline Phosphatase Total Protein Albumin Globulin Albumin/Globulin Ratio 01/11/18 01/11/18 01/11/18 00:19 07:53 07:53 WBC 9.4 RBC 3.01 L Hgb 9.0 L Hct 27.4 L MCV 90.8 MCH 30.0 MCHC 33.0 RDW 13.9 Plt Count 306 MPV 10.4 Neut % (Auto) 78.1 H Lymph % (Auto) 10.6 L [place] % (Auto) 9.3 Eos % (Auto) 1.5 Baso % (Auto) 0.5 Neut # (Auto) 7.4 H Lymph # (Auto) 1.0 [place] # (Auto) 0.9 H Eos # (Auto) 0.1 Baso # (Auto) 0.0 Sodium 144 Potassium 4.6 Chloride 105 Carbon Dioxide 33 H Anion Gap 12 BUN 39 H Creatinine 1.1 Est GFR ( Amer) > 60 Est GFR (Non-Af Amer) > 60 POC Glucose (mg/dL) 147 H Random Glucose 167 H Calcium 9.7 Total Bilirubin 0.3 AST 125 H D ALT 87 H D Alkaline Phosphatase 154 H Total Protein 5.8 L Albumin 2.5 L Globulin 3.4 Albumin/Globulin Ratio 0.7 L Assessment & Plan - Assessment and Plan (Free Text) Assessment: Palliative consult Full Code, there is no Advance Directive on chart, PPS 30% I reviewed medical records, all diagnostic studies, examined and interviewed patient in the bed. Patient is alert, cooperative, answers questions appropriately. Affect depressed. NGT in for feedings, clogged as per nursing. Plan to replace NGT. Patient swallows well. I fed him oatmeal and ice cream and he had no difficulties swallowing. Neck is contracted and hyper extended to right side, its chronic condition. No Hx of CVA. Patient denies neck injuries. Breath sounds diminished, no cough, respirations regular. Abdominal surgical side healed. Diminished bowel sounds. Denies abdominal pain. Incontinent of urine, [place] catheter on. All extremities mobile. I discussed with patient his ability to swallow. He confirmed no difficulties. PEG discussed as an alternative if nutrition continues to be poor. Patient was not sure about it. I asked if I could talk to his sister in law for further goals of care. He agreed. Family meeting scheduled for 11 am today with patient's sister in law Laura. Met with patient's sister in law Laura. She reports that prior to this acute event, patient was ambulatory for short disctances in the house, was able to control his urine. Patient did not have issues with his neck, and Laura believes this happened due to decreased mobility. I discussed patient's nutritional status. She was happy to hear that patient ate this morning. per her patient looks much better today. Laura is aware of potential PEG insertion and is opposing it. She would like patient to be given few more days and fed by mouth. I also asked patient if is OK to talk to Laura in the furure regardig medical care in case he is not able to and he said : "Yes'. Impression * Depression * Clogged NGT * Neck stiffness * urinary incontinence * Weakness Suggestions * Remove NGT. That will help patient feel better about him self * Assist with feeds as needed, spoon if necessary * Depression management per Doctor Tony * Remove [place] Catheter and assist patient with using urinal * PT for neck exercises and OOB and crystal * PEG on hold for now * JESSICA planing I will fallow up with patient and his sister in law. Advance planing 45 min
[2018-01-11] MEDS: Pantoprazole 40 mg Susp UD PO SCH (10:52)
[2018-01-11] MEDS: Insulin Detemir 100 units/ml Vial (Levemir) SC SCH ×2 (10:52→21:30)
[2018-01-11] MEDS: traZODone 25 mg Tab PO SCH (21:30)
--- NOTE | 2018-01-11 23:19 | CP.PCM.PN ---
Subjective - Date & Time of Evaluation Date of Evaluation: 01/11/18 Time of Evaluation: 10:20 - Subjective Subjective: Pt seen and examined at bedside. Nursing reports not acute events overnight. Patient resting in chair at bedside. Pt denies chest pain or shortness of breath. Physical Examination - Additional Findings Additional findings: - Constitutional Appears: Non-toxic, No Acute Distress - Head Exam Head Exam: ATRAUMATIC, NORMAL INSPECTION, NORMOCEPHALIC - Eye Exam Eye Exam: EOMI, Normal appearance - ENT Exam ENT Exam: Mucous Membranes Moist, Normal Exam - feeding tube in place - Neck Exam Neck Exam: Full ROM, Normal Inspection - Respiratory Exam Respiratory Exam: NORMAL BREATHING PATTERN - Cardiovascular Exam Cardiovascular Exam: REGULAR RHYTHM, +S1, +S2 - GI/Abdominal Exam GI & Abdominal Exam: Soft. absent: Distended, Firm, Guarding - Extremities Exam Extremities Exam: Normal Inspection - Neurological Exam Neurological Exam: Alert, Awake, CN II-XII Intact, Oriented x3 - Psychiatric Exam Psychiatric exam: Normal Affect, Normal Mood - Skin Skin Exam: Dry, Intact, Normal Color, Wa Objective - Vital Signs/Intake and Output Vital Signs (last 24 hours): Temp Pulse Resp BP Pulse Ox 97.2 F L 89 20 114/63 98 01/11/18 15:00 01/11/18 16:12 01/11/18 15:00 01/11/18 18:34 01/11/18 15:00 Intake and Output: 01/11/18 01/12/18 18:59 06:59 Intake Total 700 Output Total 600 800 Balance 100 -800 - Medications Medications: Current Medications Aspirin (Aspirin) 325 mg PO DAILY [facility] Last Admin: 01/11/18 10:52 Dose: 325 mg Heparin Sodium (Porcine) (Heparin) 5,000 units SC Q12H [facility] Last Admin: 01/11/18 13:33 Dose: 5,000 units Insulin Detemir (Levemir) 15 unit SC Q12 [facility] Last Admin: 01/11/18 21:30 Dose: 15 unit Insulin Human Regular (Novolin R) 0 unit SC Q6H [facility] PRN Reason: Protocol Last Admin: 01/11/18 18:32 Dose: 4 unit Metoprolol Tartrate (Lopressor) 25 mg PO BID [facility] Last Admin: 01/11/18 18:34 Dose: 25 mg Ondansetron HCl (Zofran Inj) 4 mg IVP Q6H PRN PRN Reason: Nausea/Vomiting Pantoprazole Sodium (Protonix Susp) 40 mg PO DAILY [facility] Last Admin: 01/11/18 10:52 Dose: 40 mg Rosuvastatin Calcium (Crestor) 20 mg PO HS [facility] Last Admin: 01/11/18 21:30 Dose: 20 mg Sertraline HCl (Zoloft) 25 mg PO DAILY [facility] Last Admin: 01/11/18 10:52 Dose: 25 mg Trazodone HCl (Desyrel) 25 mg PO HS [facility] Last Admin: 01/11/18 21:30 Dose: 25 mg - Labs Labs: 01/11/18 07:53 01/11/18 07:53 PT 12.5 SECONDS (9.7-12.2) H 12/22/17 16:18 INR 1.1 12/22/17 16:18 APTT 48 SECONDS (21-34) H D 12/28/17 05:53 Assessment and Plan - Assessment and Plan (Free Text) Assessment: 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 Grade I abnml relaxation pattern. Mild Aortic regurgitation. Lopressor 12.5mg PO BID Afib/HTN BP well controlled Afib on monitor rate controlled Lopressor 12.5mg PO BID Disposition: Per primary note, pt stable for discharge to [facility]. Pt not candidate for surgical intervention at this time. Continue ASA, Statin, BB.
[2018-01-12] MEDS: (Novolin R) Insulin Human Regular 100 units/ml vial SC SCH ×3 (00:06→18:58)
[2018-01-12] MEDS ORDERED: Dextrose 50% SYRINGE Inj (50 ml) IV STA (06:55)
[2018-01-12 07:36] LABS: BASO # 0.1 K/uL (0.0-0.2); EOS # 0.1 K/uL (0.0-0.7); EOS % 1.7 % (0.0-4.0); HEMOGLOBIN 9.7 g/dL (12.0-18.0); LYMPH # 1.3 K/uL (1.0-4.3); LYMPH % 18.5 % (20.0-40.0); MEAN CELL VOLUME 91.7 fL (80.0-94.0); MEAN CORPUSCULAR HEMOGLOBIN 29.8 pg (27.0-31.0); MEAN CORPUSCULAR HGB CONC 32.5 g/dL (33.0-37.0); MEAN PLATELET VOLUME 10.7 fL (7.2-11.7); MONO # 0.7 K/uL (0.0-0.8); MONO % 10.2 % (0.0-10.0); NEUT # 4.8 K/uL (1.8-7.0); NEUT % 68.6 % (50.0-75.0); NRBC % 0.1 % (0.0-2.0); RBC 3.26 Mil/uL (4.40-5.90); RED CELL DISTRIBUTION WIDTH 13.8 % (11.5-14.5)
[2018-01-12 08:15] LABS: ALB/GLOB RATIO 0.8 (1.0-2.1); ALBUMIN 2.7 g/dL (3.5-5.0); ALT/SGPT 112 U/L (21-72); AST/SGOT 111 U/L (17-59); BLOOD UREA NITROGEN 33 mg/dL (9-20); CALCIUM 10.1 mg/dl (8.6-10.4); GFR AFRICAN-AMERICAN > 60; GFR NON-AFRICAN AMERICAN > 60
--- NOTE | 2018-01-12 09:15 | CP.PCM.PN ---
<Rafi Ferrari - Last Filed: 01/12/18 19:44> Subjective - Date & Time of Evaluation Date of Evaluation: 01/12/18 Time of Evaluation: 09:15 - Subjective Subjective: PGY-[address] Milan's Cardio service: Pt seen and examined at bedside. Nursing reports hypoglycemia this AM. Patient resting in chair at bedside. Pt denies chest pain or shortness of breath. Objective - Vital Signs/Intake and Output Vital Signs (last 24 hours): Temp Pulse Resp BP Pulse Ox 98.5 F 86 18 118/72 98 01/12/18 07:40 01/12/18 08:39 01/12/18 07:40 01/12/18 07:40 01/12/18 07:40 Intake and Output: 01/12/18 01/12/18 06:59 18:59 Output Total 1175 Balance -1175 - Medications Medications: Current Medications Aspirin (Aspirin) 325 mg PO DAILY [facility] Last Admin: 01/11/18 10:52 Dose: 325 mg Heparin Sodium (Porcine) (Heparin) 5,000 units SC Q12H [facility] Last Admin: 01/12/18 02:14 Dose: 5,000 units Insulin Detemir (Levemir) 15 unit SC Q12 [facility] Last Admin: 01/11/18 21:30 Dose: 15 unit Insulin Human Regular (Novolin R) 0 unit SC Q6H [facility] PRN Reason: Protocol Last Admin: 01/12/18 06:48 Dose: Not Given Metoprolol Tartrate (Lopressor) 25 mg PO BID [facility] Last Admin: 01/11/18 18:34 Dose: 25 mg Ondansetron HCl (Zofran Inj) 4 mg IVP Q6H PRN PRN Reason: Nausea/Vomiting Pantoprazole Sodium (Protonix Susp) 40 mg PO DAILY [facility] Last Admin: 01/11/18 10:52 Dose: 40 mg Rosuvastatin Calcium (Crestor) 20 mg PO [facility] Last Admin: 01/11/18 21:30 Dose: 20 mg Sertraline HCl (Zoloft) 25 mg PO DAILY [facility] Last Admin: 01/11/18 10:52 Dose: 25 mg Trazodone HCl (Desyrel) 25 mg PO HS [facility] Last Admin: 01/11/18 21:30 Dose: 25 mg - Labs Labs: 01/12/18 07:18 01/12/18 07:18 PT 12.5 SECONDS (9.7-12.2) H 12/22/17 16:18 INR 1.1 12/22/17 16:18 APTT 48 SECONDS (21-34) H D 12/28/17 05:53 - Additional Findings Additional findings: - Constitutional Appears: Non-toxic, No Acute Distress - Head Exam Head Exam: ATRAUMATIC, NORMAL INSPECTION, NORMOCEPHALIC - Eye Exam Eye Exam: EOMI, Normal appearance - ENT Exam ENT Exam: Mucous Membranes Moist, Normal Exam - Neck Exam Neck Exam: Full ROM, Normal Inspection - Respiratory Exam Respiratory Exam: NORMAL BREATHING PATTERN - Cardiovascular Exam Cardiovascular Exam: REGULAR RHYTHM, +S1, +S2 - GI/Abdominal Exam GI & Abdominal Exam: Soft. 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 Grade I abnml relaxation pattern. Mild Aortic regurgitation. Lopressor 12.5mg PO BID Afib/HTN BP well controlled Afib on monitor rate controlled Lopressor 12.5mg PO BID Disposition: Pt not candidate for surgical intervention at this time. Continue ASA, Statin, BB. <Brandon Milan - Last Filed: 01/13/18 06:50> Objective - Vital Signs/Intake and Output Vital Signs (last 24 hours): Temp Pulse Resp BP Pulse Ox 98.1 F 95 H 20 110/66 98 01/13/18 04:00 01/13/18 04:00 01/13/18 04:00 01/13/18 04:00 01/13/18 04:00 Intake and Output: 01/12/18 01/13/18 18:59 06:59 Intake Total 360 Output Total 400 900 Balance -400 -540 - Medications Medications: Current Medications Aspirin (Aspirin) 325 mg PO DAILY [facility] Last Admin: 01/12/18 09:23 Dose: 325 mg Heparin Sodium (Porcine) (Heparin) 5,000 units SC Q12H [facility] Last Admin: 01/12/18 02:14 Dose: 5,000 units Insulin Human Regular (Novolin R) 0 unit SC Q6H [facility] PRN Reason: Protocol Last Admin: 01/13/18 00:03 Dose: Not Given Metoprolol Tartrate (Lopressor) 25 mg PO BID [facility] Last Admin: 01/12/18 18:43 Dose: 25 mg Ondansetron HCl (Zofran Inj) 4 mg IVP Q6H PRN PRN Reason: Nausea/Vomiting Pantoprazole Sodium (Protonix Susp) 40 mg PO DAILY [facility] Last Admin: 01/12/18 09:25 Dose: 40 mg Rosuvastatin Calcium (Crestor) 20 mg PO HS [facility] Last Admin: 01/12/18 22:09 Dose: 20 mg Sertraline HCl (Zoloft) 25 mg PO DAILY [facility] Last Admin: 01/12/18 09:23 Dose: 25 mg Trazodone HCl (Desyrel) 25 mg PO HS [facility] Last Admin: 01/12/18 22:09 Dose: 25 mg - Labs Labs: 01/12/18 07:18 01/12/18 07:18 PT 12.5 SECONDS (9.7-12.2) H 12/22/17 16:18 INR 1.1 12/22/17 16:18 APTT 48 SECONDS (21-34) H D 12/28/17 05:53 Assessment and Plan - Assessment and Plan (Free Text) Plan: Patient seen and evaluated personally by nj Plan of care d/w the medical information specialist and as documented
[2018-01-12] MEDS: Pantoprazole 40 mg Susp UD PO SCH (09:25)
[2018-01-12] MEDS: Insulin Detemir 100 units/ml Vial (Levemir) SC SCH (09:25)
--- NOTE | 2018-01-12 12:33 | CP.PCM.PN ---
Subjective - Date & Time of Evaluation Date of Evaluation: 01/11/18 Time of Evaluation: 18:00 - Subjective Subjective: Pt seen and examined at bedside, pt is afebrile, no shortness of breath, more alert, still have NG tibe, pt is out of ICU, pt is for swallowing eval Objective - Vital Signs/Intake and Output Vital Signs (last 24 hours): Temp Pulse Resp BP Pulse Ox 98.5 F 86 18 104/69 98 01/12/18 07:40 01/12/18 08:39 01/12/18 07:40 01/12/18 09:26 01/12/18 07:40 Intake and Output: 01/12/18 01/12/18 06:59 18:59 Output Total 1175 Balance -1175 - Medications Medications: Current Medications Aspirin (Aspirin) 325 mg PO DAILY [facility] Last Admin: 01/12/18 09:23 Dose: 325 mg Heparin Sodium (Porcine) (Heparin) 5,000 units SC Q12H [facility] Last Admin: 01/12/18 02:14 Dose: 5,000 units Insulin Detemir (Levemir) 15 unit SC Q12 [facility] Last Admin: 01/12/18 09:25 Dose: Not Given Insulin Human Regular (Novolin R) 0 unit SC Q6H [facility] PRN Reason: Protocol Last Admin: 01/12/18 06:48 Dose: Not Given Metoprolol Tartrate (Lopressor) 25 mg PO BID [facility] Last Admin: 01/12/18 09:26 Dose: 25 mg Ondansetron HCl (Zofran Inj) 4 mg IVP Q6H PRN PRN Reason: Nausea/Vomiting Pantoprazole Sodium (Protonix Susp) 40 mg PO DAILY [facility] Last Admin: 01/12/18 09:25 Dose: 40 mg Rosuvastatin Calcium (Crestor) 20 mg PO HS [facility] Last Admin: 01/11/18 21:30 Dose: 20 mg Sertraline HCl (Zoloft) 25 mg PO DAILY [facility] Last Admin: 01/12/18 09:23 Dose: 25 mg Trazodone HCl (Desyrel) 25 mg PO HS [facility] Last Admin: 01/11/18 21:30 Dose: 25 mg - Labs Labs: 01/12/18 07:18 01/12/18 07:18 PT 12.5 SECONDS (9.7-12.2) H 12/22/17 16:18 INR 1.1 12/22/17 16:18 APTT 48 SECONDS (21-34) H D 12/28/17 05:53 - Constitutional Appears: No Acute Distress, Chronically Ill - Head Exam Head Exam: ATRAUMATIC, NORMAL INSPECTION, NORMOCEPHALIC - Eye Exam Eye Exam: EOMI, Normal appearance, PERRL Pupil Exam: NORMAL ACCOMODATION, PERRL - ENT Exam ENT Exam: Mucous Membranes Moist, Normal Exam - Neck Exam Neck Exam: Full ROM, Normal Inspection. absent: Lymphadenopathy - Respiratory Exam Respiratory Exam: Decreased Breath Sounds, Rhonchi - Cardiovascular Exam Cardiovascular Exam: REGULAR RHYTHM, +S1, +S2. absent: Murmur - GI/Abdominal Exam GI & Abdominal Exam: Distended, Hypoactive Bowel Sounds Assessment and Plan (1) Perforated abdominal viscus Status: Acute (2) Diabetes mellitus Status: Acute (3) GERD (gastroesophageal reflux disease) Status: Acute (4) Acute non-ST elevation myocardial infarction (NSTEMI) Status: Acute
--- NOTE | 2018-01-12 14:34 | CP.PCM.PN ---
Subjective - Date & Time of Evaluation Date of Evaluation: 01/12/18 Time of Evaluation: 18:00 - Subjective Subjective: Pt is seen and examined at bedside, pt NG tube is out, he is eating bu mounth, he mostly staus drowsy Objective - Vital Signs/Intake and Output Vital Signs (last 24 hours): Temp Pulse Resp BP Pulse Ox 98.5 F 86 18 104/69 98 01/12/18 07:40 01/12/18 08:39 01/12/18 07:40 01/12/18 09:26 01/12/18 07:40 Intake and Output: 01/12/18 01/12/18 06:59 18:59 Output Total 1175 Balance -1175 - Medications Medications: Current Medications Aspirin (Aspirin) 325 mg PO DAILY [facility] Last Admin: 01/12/18 09:23 Dose: 325 mg Heparin Sodium (Porcine) (Heparin) 5,000 units SC Q12H [facility] Last Admin: 01/12/18 02:14 Dose: 5,000 units Insulin Detemir (Levemir) 15 unit SC Q12 [facility] Last Admin: 01/12/18 09:25 Dose: Not Given Insulin Human Regular (Novolin R) 0 unit SC Q6H [facility] PRN Reason: Protocol Last Admin: 01/12/18 06:48 Dose: Not Given Metoprolol Tartrate (Lopressor) 25 mg PO BID [facility] Last Admin: 01/12/18 09:26 Dose: 25 mg Ondansetron HCl (Zofran Inj) 4 mg IVP Q6H PRN PRN Reason: Nausea/Vomiting Pantoprazole Sodium (Protonix Susp) 40 mg PO DAILY [facility] Last Admin: 01/12/18 09:25 Dose: 40 mg Rosuvastatin Calcium (Crestor) 20 mg PO HS [facility] Last Admin: 01/11/18 21:30 Dose: 20 mg Sertraline HCl (Zoloft) 25 mg PO DAILY [facility] Last Admin: 01/12/18 09:23 Dose: 25 mg Trazodone HCl (Desyrel) 25 mg PO HS [facility] Last Admin: 01/11/18 21:30 Dose: 25 mg - Labs Labs: 01/12/18 07:18 01/12/18 07:18 PT 12.5 SECONDS (9.7-12.2) H 12/22/17 16:18 INR 1.1 12/22/17 16:18 APTT 48 SECONDS (21-34) H D 12/28/17 05:53 - Constitutional Appears: No Acute Distress - Head Exam Head Exam: ATRAUMATIC, NORMAL INSPECTION, NORMOCEPHALIC - Eye Exam Eye Exam: EOMI, Normal appearance, PERRL Pupil Exam: NORMAL ACCOMODATION, PERRL - Respiratory Exam Respiratory Exam: Clear to Ausculation Bilateral, NORMAL BREATHING PATTERN - Cardiovascular Exam Cardiovascular Exam: REGULAR RHYTHM, +S1, +S2. absent: Murmur - GI/Abdominal Exam GI & Abdominal Exam: Soft, Normal Bowel Sounds. absent: Tenderness - Rectal Exam Rectal Exam: Deferred Assessment and Plan (1) Perforated abdominal viscus Status: Acute (2) Diabetes mellitus Status: Acute (3) GERD (gastroesophageal reflux disease) Status: Acute (4) Acute non-ST elevation myocardial infarction (NSTEMI) Status: Acute
[2018-01-12] MEDS: traZODone 25 mg Tab PO SCH (22:09)
[2018-01-13] MEDS: (Novolin R) Insulin Human Regular 100 units/ml vial SC SCH ×4 (00:03→17:53)
[2018-01-13 06:38] LABS: BASO # 0.1 K/uL (0.0-0.2); BASO % 0.8 % (0.0-2.0); EOS # 0.1 K/uL (0.0-0.7); EOS % 1.1 % (0.0-4.0); HEMOGLOBIN 9.5 g/dL (12.0-18.0); LYMPH # 0.7 K/uL (1.0-4.3); LYMPH % 9.2 % (20.0-40.0); MEAN CELL VOLUME 91.6 fL (80.0-94.0); MEAN CORPUSCULAR HEMOGLOBIN 30.2 pg (27.0-31.0); MEAN PLATELET VOLUME 10.4 fL (7.2-11.7); MONO # 0.7 K/uL (0.0-0.8); MONO % 9.6 % (0.0-10.0); NEUT # 6.2 K/uL (1.8-7.0); NEUT % 79.3 % (50.0-75.0); NRBC % 0.1 % (0.0-2.0); PLATELET COUNT 275 K/uL (130-400); RBC 3.15 Mil/uL (4.40-5.90); RED CELL DISTRIBUTION WIDTH 13.7 % (11.5-14.5); WHITE BLOOD COUNT 7.8 K/uL (4.8-10.8)
[2018-01-13 06:50] LABS: ALB/GLOB RATIO 0.8 (1.0-2.1); ALBUMIN 2.6 g/dL (3.5-5.0); ALT/SGPT 128 U/L (21-72); AST/SGOT 112 U/L (17-59); BLOOD UREA NITROGEN 29 mg/dL (9-20); CALCIUM 9.9 mg/dl (8.6-10.4); GFR AFRICAN-AMERICAN > 60; GFR NON-AFRICAN AMERICAN 59
--- NOTE | 2018-01-13 08:40 | CP.PCM.PN ---
Subjective - Date & Time of Evaluation Date of Evaluation: 01/13/18 Time of Evaluation: 07:00 - Subjective Subjective: Pt seen and examined today , pt is eating well, adjusted his insulin regime, pt is more alert, undergoing physical therapy. he is for JESSICA. Objective - Vital Signs/Intake and Output Vital Signs (last 24 hours): Temp Pulse Resp BP Pulse Ox 98.8 F 95 H 18 100/65 98 01/13/18 08:10 01/13/18 08:10 01/13/18 08:10 01/13/18 08:10 01/13/18 08:10 Intake and Output: 01/13/18 01/13/18 06:59 18:59 Intake Total 360 Output Total 900 Balance -540 - Medications Medications: Current Medications Aspirin (Aspirin) 325 mg PO DAILY [facility] Last Admin: 01/12/18 09:23 Dose: 325 mg Heparin Sodium (Porcine) (Heparin) 5,000 units SC Q12H [facility] Last Admin: 01/13/18 07:12 Dose: 5,000 units Insulin Human Regular (Novolin R) 0 unit SC Q6H [facility] PRN Reason: Protocol Last Admin: 01/13/18 07:10 Dose: 6 unit Metoprolol Tartrate (Lopressor) 25 mg PO BID [facility] Last Admin: 01/12/18 18:43 Dose: 25 mg Ondansetron HCl (Zofran Inj) 4 mg IVP Q6H PRN PRN Reason: Nausea/Vomiting Pantoprazole Sodium (Protonix Susp) 40 mg PO DAILY [facility] Last Admin: 01/12/18 09:25 Dose: 40 mg Rosuvastatin Calcium (Crestor) 20 mg PO [facility] Last Admin: 01/12/18 22:09 Dose: 20 mg Sertraline HCl (Zoloft) 25 mg PO DAILY [facility] Last Admin: 01/12/18 09:23 Dose: 25 mg Trazodone HCl (Desyrel) 25 mg PO HS [facility] Last Admin: 01/12/18 22:09 Dose: 25 mg - Labs Labs: 01/13/18 06:29 01/13/18 06:29 PT 12.5 SECONDS (9.7-12.2) H 12/22/17 16:18 INR 1.1 12/22/17 16:18 APTT 48 SECONDS (21-34) H D 12/28/17 05:53 - Constitutional Appears: No Acute Distress - Head Exam Head Exam: ATRAUMATIC, NORMAL INSPECTION, NORMOCEPHALIC - Eye Exam Eye Exam: EOMI, Normal appearance, PERRL Pupil Exam: NORMAL ACCOMODATION, PERRL - Respiratory Exam Respiratory Exam: Clear to Ausculation Bilateral, NORMAL BREATHING PATTERN - Cardiovascular Exam Cardiovascular Exam: REGULAR RHYTHM, +S1, +S2. absent: Murmur - GI/Abdominal Exam GI & Abdominal Exam: Soft, Normal Bowel Sounds. absent: Tenderness Assessment and Plan (1) Perforated abdominal viscus Assessment & Plan: s/p OR Status: Acute (2) Diabetes mellitus Assessment & Plan: resume insulin once we know the amonut of insulin pt needs Status: Acute (3) GERD (gastroesophageal reflux disease) Status: Acute (4) Acute non-ST elevation myocardial infarction (NSTEMI) Status: Acute
[2018-01-13] MEDS: Pantoprazole 40 mg Susp UD PO SCH (10:14)
[2018-01-13 10:36] LABS: LYMPHOCYTE 6 % (20-40); MONOCYTE 12 % (0-10); NEUTROPHIL 82 % (50-75); TOTAL CELLS COUNTED 100
[2018-01-13 10:42] LABS: PLATELET ESTIMATE NORMAL (NORMAL)
[2018-01-13 10:50] LABS: ANISOCYTOSIS SLIGHT; LARGE PLATELETS PRESENT; TOXIC GRANULATION PRESENT
[2018-01-13 10:51] LABS: HYPOCHROMIC SLIGHT
[2018-01-13 10:54] LABS: POLYCHROMIC SLIGHT
[2018-01-13] MEDS: traZODone 25 mg Tab PO SCH (21:17)
--- NOTE | 2018-01-13 23:46 | CP.PCM.PN ---
Subjective - Date & Time of Evaluation Date of Evaluation: 01/13/18 Time of Evaluation: 23:46 - Subjective Subjective: CHIEF COMPLAINTS TODAY : AFEBRILE NO ACUTE EVENTS. STATES HE IS TRYING TO EAT DENIES CHEST PAIN/SOB s/p cardiac catheterization 12/28/17- triple vessel disease PT NOT A CANDIDATE FOR SURGERY PER CARDIOLOGY ROS. HEENT : N. Resp : No cough, wheezing ,pleuritic CP ,or hemoptysis Cardio : No anginal CP, PND, orthopnea, palpitation GI : SOFT +VE MILD ABD.DISCOMFORT, NO n/v ,diarrhea or GI bleeding . [employer] INTERIOR SURFACE : No headache, vertigo, focal deficit. Musculoskel : No joint swelling , Derm : No rash Psych : Normal affect. Ext : No swelling ,calf pain PE. Pt. awake in no distress. V.S As noted in the chart Head ,ear nose,throat and eyes : Normal. Neck : Supple with normal carotids. Lungs: DIMINISHED BS AT BASIS. Heart : S1 & S2 normal with S4. No murmur. Abd : SOFT, MILD TENDERNESS POST OPERATIVE SITE Midline incision with panda in place, no erythema or drainage noted. Neuro : Moves all ext. with no localized deficit. Ext : No edema with intact pulses.Non tender calves Derm : No rashes or decubitus ulcer. LABS/RADIOLOGY: REVIEWED CT CHEST-NOTED CXR 12/31/17 MINIMAL CHF/AND B/L ATELECTASIS. BLOOD CULTURES 12/26/17 -VE GROWTH TO DATE. Objective - Vital Signs/Intake and Output Vital Signs (last 24 hours): Temp Pulse Resp BP Pulse Ox 97.3 F L 79 20 107/67 100 01/13/18 15:02 01/13/18 15:02 01/13/18 15:02 01/13/18 17:39 01/13/18 15:02 Intake and Output: 01/13/18 01/14/18 18:59 06:59 Intake Total 600 100 Output Total 200 350 Balance 400 -250 - Medications Medications: Current Medications Aspirin (Aspirin) 325 mg PO DAILY [facility] Last Admin: 01/13/18 10:14 Dose: 325 mg Heparin Sodium (Porcine) (Heparin) 5,000 units SC Q12H [facility] Last Admin: 01/13/18 14:04 Dose: 5,000 units Insulin Human Regular (Novolin R) 0 unit SC Q6H [facility] PRN Reason: Protocol Last Admin: 01/13/18 17:53 Dose: 8 unit Metoprolol Tartrate (Lopressor) 25 mg PO BID [facility] Last Admin: 01/13/18 17:39 Dose: 25 mg Ondansetron HCl (Zofran Inj) 4 mg IVP Q6H PRN PRN Reason: Nausea/Vomiting Pantoprazole Sodium (Protonix Susp) 40 mg PO DAILY [facility] Last Admin: 01/13/18 10:14 Dose: 40 mg Rosuvastatin Calcium (Crestor) 20 mg PO HS [facility] Last Admin: 01/13/18 21:17 Dose: 20 mg Sertraline HCl (Zoloft) 25 mg PO DAILY [facility] Last Admin: 01/13/18 10:14 Dose: 25 mg Trazodone HCl (Desyrel) 25 mg PO HS [facility] Last Admin: 01/13/18 21:17 Dose: 25 mg - Labs Labs: 01/13/18 06:29 01/13/18 06:29 PT 12.5 SECONDS (9.7-12.2) H 12/22/17 16:18 INR 1.1 12/22/17 16:18 APTT 48 SECONDS (21-34) H D 12/28/17 05:53 Assessment and Plan (1) Sepsis associated hypotension Assessment & Plan: ALL CULTURES -VE TO DATE . OBSERVE OFF ANTIBIOTICS. Status: Acute (2) Perforated abdominal viscus Assessment & Plan: PT OFF ABX . PANDA IN PLACE. MID ABDOMEN SURGICAL WOUND HEALING. STABLE. Status: Acute (3) Status post exploratory laparotomy Status: Acute (4) Acute non-ST elevation myocardial infarction (NSTEMI) Status: Acute (5) CHF (congestive heart failure) Status: Acute (6) Diabetes mellitus Status: Acute (7) Failure to thrive in adult Assessment & Plan: PT FOR PT DIET TOLERATING . FOR JESSICA PER PMD. Status: Acute
--- NOTE | 2018-01-14 00:07 | CP.PCM.PN ---
Subjective - Date & Time of Evaluation Date of Evaluation: 01/13/18 Time of Evaluation: 17:10 - Subjective Subjective: Pt seen and examined at bedside. Nursing reports hypoglycemia this AM. Patient resting in chair at bedside. Pt denies chest pain or shortness of breath. Physical Examination - Constitutional Appears: Non-toxic, No Acute Distress - Head Exam Head Exam: ATRAUMATIC, NORMAL INSPECTION, NORMOCEPHALIC - Eye Exam Eye Exam: EOMI, Normal appearance - ENT Exam ENT Exam: Mucous Membranes Moist, Normal Exam - Neck Exam Neck Exam: Full ROM, Normal Inspection - Respiratory Exam Respiratory Exam: NORMAL BREATHING PATTERN - Cardiovascular Exam Cardiovascular Exam: REGULAR RHYTHM, +S1, +S2 - GI/Abdominal Exam GI & Abdominal Exam: Soft. absent: Distended, Firm, Guarding - Extremities Exam Extremities Exam: Normal Inspection - Neurological Exam Neurological Exam: Alert, Awake, CN II-XII Intact, Oriented x3 - Psychiatric Exam Psychiatric exam: Normal Affect, Normal Mood - Skin Skin Exam: Dry, Intact, Normal Color, Wa Objective - Vital Signs/Intake and Output Vital Signs (last 24 hours): Temp Pulse Resp BP Pulse Ox 97.3 F L 79 20 107/67 100 01/13/18 15:02 01/13/18 15:02 01/13/18 15:02 01/13/18 17:39 01/13/18 15:02 Intake and Output: 01/13/18 01/14/18 18:59 06:59 Intake Total 600 100 Output Total 200 350 Balance 400 -250 - Medications Medications: Current Medications Aspirin (Aspirin) 325 mg PO DAILY [facility] Last Admin: 01/13/18 10:14 Dose: 325 mg Heparin Sodium (Porcine) (Heparin) 5,000 units SC Q12H [facility] Last Admin: 01/13/18 14:04 Dose: 5,000 units Insulin Human Regular (Novolin R) 0 unit SC Q6H [facility] PRN Reason: Protocol Last Admin: 01/13/18 17:53 Dose: 8 unit Metoprolol Tartrate (Lopressor) 25 mg PO BID [facility] Last Admin: 01/13/18 17:39 Dose: 25 mg Ondansetron HCl (Zofran Inj) 4 mg IVP Q6H PRN PRN Reason: Nausea/Vomiting Pantoprazole Sodium (Protonix Susp) 40 mg PO DAILY [facility] Last Admin: 01/13/18 10:14 Dose: 40 mg Rosuvastatin Calcium (Crestor) 20 mg PO HS [facility] Last Admin: 01/13/18 21:17 Dose: 20 mg Sertraline HCl (Zoloft) 25 mg PO DAILY [facility] Last Admin: 01/13/18 10:14 Dose: 25 mg Trazodone HCl (Desyrel) 25 mg PO HS [facility] Last Admin: 01/13/18 21:17 Dose: 25 mg - Labs Labs: 01/13/18 06:29 01/13/18 06:29 PT 12.5 SECONDS (9.7-12.2) H 12/22/17 16:18 INR 1.1 12/22/17 16:18 APTT 48 SECONDS (21-34) H D 12/28/17 05:53 Assessment and Plan - Assessment and Plan (Free Text) Assessment: 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 Grade I abnml relaxation pattern. Mild Aortic regurgitation. Lopressor 12.5mg PO BID Afib/HTN BP well controlled Afib on monitor rate controlled Lopressor 12.5mg PO BID Disposition: Pt not candidate for surgical intervention at this time. Continue ASA, Statin, BB.
[2018-01-14] MEDS: (Novolin R) Insulin Human Regular 100 units/ml vial SC SCH ×5 (00:15→23:45)
--- NOTE | 2018-01-14 02:21 | CP.PCM.PN ---
Subjective - Date & Time of Evaluation Date of Evaluation: 01/14/18 Time of Evaluation: 17:00 - Subjective Subjective: pt seen and examined at bedside Objective - Vital Signs/Intake and Output Vital Signs (last 24 hours): Temp Pulse Resp BP Pulse Ox 99 F 80 18 102/59 L 99 01/13/18 23:13 01/13/18 23:13 01/13/18 23:13 01/13/18 23:13 01/13/18 23:13 Intake and Output: 01/13/18 01/14/18 18:59 06:59 Intake Total 600 100 Output Total 200 350 Balance 400 -250 - Medications Medications: Current Medications Aspirin (Aspirin) 325 mg PO DAILY [facility] Last Admin: 01/13/18 10:14 Dose: 325 mg Heparin Sodium (Porcine) (Heparin) 5,000 units SC Q12H [facility] Last Admin: 01/13/18 14:04 Dose: 5,000 units Insulin Human Regular (Novolin R) 0 unit SC Q6H [facility] PRN Reason: Protocol Last Admin: 01/14/18 00:15 Dose: Not Given Metoprolol Tartrate (Lopressor) 25 mg PO BID [facility] Last Admin: 01/13/18 17:39 Dose: 25 mg Ondansetron HCl (Zofran Inj) 4 mg IVP Q6H PRN PRN Reason: Nausea/Vomiting Pantoprazole Sodium (Protonix Susp) 40 mg PO DAILY [facility] Last Admin: 01/13/18 10:14 Dose: 40 mg Rosuvastatin Calcium (Crestor) 20 mg PO [facility] Last Admin: 01/13/18 21:17 Dose: 20 mg Sertraline HCl (Zoloft) 25 mg PO DAILY [facility] Last Admin: 01/13/18 10:14 Dose: 25 mg Trazodone HCl (Desyrel) 25 mg PO HS [facility] Last Admin: 01/13/18 21:17 Dose: 25 mg - Labs Labs: 01/13/18 06:29 01/13/18 06:29 PT 12.5 SECONDS (9.7-12.2) H 12/22/17 16:18 INR 1.1 12/22/17 16:18 APTT 48 SECONDS (21-34) H D 12/28/17 05:53 Assessment and Plan (1) Perforated abdominal viscus Status: Acute (2) Diabetes mellitus Status: Acute (3) GERD (gastroesophageal reflux disease) Status: Acute (4) Acute non-ST elevation myocardial infarction (NSTEMI) Status: Acute
[2018-01-14] MEDS: Pantoprazole 40 mg Susp UD PO SCH (09:21)
--- NOTE | 2018-01-14 21:47 | CP.PCM.PN ---
Subjective - Date & Time of Evaluation Date of Evaluation: 01/14/18 Time of Evaluation: 13:05 - Subjective Subjective: Pt seen and examined at bedside. No additional events noted Physical Examination - Constitutional Appears: Non-toxic, No Acute Distress - Head Exam Head Exam: ATRAUMATIC, NORMAL INSPECTION, NORMOCEPHALIC - Eye Exam Eye Exam: EOMI, Normal appearance - ENT Exam ENT Exam: Mucous Membranes Moist, Normal Exam - Neck Exam Neck Exam: Full ROM, Normal Inspection - Respiratory Exam Respiratory Exam: NORMAL BREATHING PATTERN - Cardiovascular Exam Cardiovascular Exam: REGULAR RHYTHM, +S1, +S2 - GI/Abdominal Exam GI & Abdominal Exam: Soft. absent: Distended, Firm, Guarding - Extremities Exam Extremities Exam: Normal Inspection - Neurological Exam Neurological Exam: Alert, Awake, CN II-XII Intact, Oriented x3 - Psychiatric Exam Psychiatric exam: Normal Affect, Normal Mood - Skin Skin Exam: Dry, Intact, Normal Color, Wa Objective - Vital Signs/Intake and Output Vital Signs (last 24 hours): Temp Pulse Resp BP Pulse Ox 97.2 F L 80 20 124/75 96 01/14/18 15:15 01/14/18 16:36 01/14/18 15:15 01/14/18 17:25 01/14/18 15:15 Intake and Output: 01/14/18 01/15/18 18:59 06:59 Intake Total 400 Output Total 200 Balance 200 - Medications Medications: Current Medications Aspirin (Aspirin) 325 mg PO DAILY [facility] Last Admin: 01/14/18 09:21 Dose: 325 mg Insulin Human Regular (Novolin R) 0 unit SC Q6H [facility] PRN Reason: Protocol Last Admin: 01/14/18 17:25 Dose: 6 unit Metoprolol Tartrate (Lopressor) 25 mg PO BID [facility] Last Admin: 01/14/18 17:25 Dose: 25 mg Ondansetron HCl (Zofran Inj) 4 mg IVP Q6H PRN PRN Reason: Nausea/Vomiting Pantoprazole Sodium (Protonix Susp) 40 mg PO DAILY [facility] Last Admin: 01/14/18 09:21 Dose: 40 mg Rosuvastatin Calcium (Crestor) 20 mg PO HS [facility] Last Admin: 01/13/18 21:17 Dose: 20 mg Sertraline HCl (Zoloft) 25 mg PO DAILY [facility] Last Admin: 01/14/18 09:21 Dose: 25 mg Trazodone HCl (Desyrel) 25 mg PO HS [facility] Last Admin: 01/13/18 21:17 Dose: 25 mg - Labs Labs: 01/13/18 06:29 01/13/18 06:29 PT 12.5 SECONDS (9.7-12.2) H 12/22/17 16:18 INR 1.1 12/22/17 16:18 APTT 48 SECONDS (21-34) H D 12/28/17 05:53 Assessment and Plan - Assessment and Plan (Free Text) Assessment: 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 Grade I abnml relaxation pattern. Mild Aortic regurgitation. Lopressor 12.5mg PO BID Afib/HTN BP well controlled Afib on monitor rate controlled Lopressor 12.5mg PO BID Disposition: Pt not candidate for surgical intervention at this time. Continue ASA, Statin, BB.
[2018-01-14] MEDS: traZODone 25 mg Tab PO SCH (21:54)
[2018-01-15] MEDS: (Novolin R) Insulin Human Regular 100 units/ml vial SC SCH ×3 (07:49→18:52)
[2018-01-15] MEDS: Pantoprazole 40 mg Susp UD PO SCH (09:42)
[2018-01-15] MEDS: traZODone 25 mg Tab PO SCH (22:29)
--- NOTE | 2018-01-16 00:57 | CP.PCM.PN ---
Subjective - Date & Time of Evaluation Date of Evaluation: 01/15/18 Time of Evaluation: 18:00 - Subjective Subjective: Pt is seen at bedside, is feeling better, cardiology also evalauted, Objective - Vital Signs/Intake and Output Vital Signs (last 24 hours): Temp Pulse Resp BP Pulse Ox 98.0 F 79 18 109/66 99 01/15/18 15:00 01/15/18 15:00 01/15/18 15:00 01/15/18 18:58 01/15/18 15:00 Intake and Output: 01/15/18 01/16/18 18:59 06:59 Output Total 550 Balance -550 - Medications Medications: Current Medications Aspirin (Aspirin) 325 mg PO DAILY [facility] Last Admin: 01/15/18 09:42 Dose: 325 mg Insulin Human Regular (Novolin R) 0 unit SC Q6H [facility] PRN Reason: Protocol Last Admin: 01/15/18 18:52 Dose: 8 unit Metoprolol Tartrate (Lopressor) 25 mg PO BID [facility] Last Admin: 01/15/18 18:58 Dose: 25 mg Ondansetron HCl (Zofran Inj) 4 mg IVP Q6H PRN PRN Reason: Nausea/Vomiting Pantoprazole Sodium (Protonix Susp) 40 mg PO DAILY [facility] Last Admin: 01/15/18 09:42 Dose: 40 mg Rosuvastatin Calcium (Crestor) 20 mg PO [facility] Last Admin: 01/15/18 22:28 Dose: 20 mg Sertraline HCl (Zoloft) 25 mg PO DAILY [facility] Last Admin: 01/15/18 09:42 Dose: 25 mg Trazodone HCl (Desyrel) 25 mg PO [facility] Last Admin: 01/15/18 22:29 Dose: 25 mg - Labs Labs: 01/13/18 06:29 01/13/18 06:29 PT 12.5 SECONDS (9.7-12.2) H 12/22/17 16:18 INR 1.1 12/22/17 16:18 APTT 48 SECONDS (21-34) H D 12/28/17 05:53 Assessment and Plan (1) Perforated abdominal viscus Status: Acute (2) Diabetes mellitus Status: Acute (3) GERD (gastroesophageal reflux disease) Status: Acute (4) Acute non-ST elevation myocardial infarction (NSTEMI) Assessment & Plan: 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 Grade I abnml relaxation pattern. Mild Aortic regurgitation. Lopressor 12.5mg PO BID Afib/HTN BP well controlled Afib on monitor rate controlled Lopressor 12.5mg PO BID Disposition: Pt not candidate for surgical intervention at this time. Continue ASA, Statin, BB. Status: Acute
[2018-01-16] MEDS: (Novolin R) Insulin Human Regular 100 units/ml vial SC SCH ×4 (01:00→18:28)
[2018-01-16 07:55] VITALS: O2SAT 100
[2018-01-16] MEDS: Pantoprazole 40 mg Susp UD PO SCH (10:31)
--- NOTE | 2018-01-16 12:35 | CP.PCM.PN ---
Subjective - Date & Time of Evaluation Date of Evaluation: 01/16/18 Time of Evaluation: 12:28 - Subjective Subjective: PT CLEARED FOR D/C TODAY TO [facility] PER DR. PITTMAN. DR. PITTMAN AND I SPOKE WITH THE PT ABOUT THE BENEFITS OF REHAB AND HE NODS "YES" THAT HE AGREES ON THE BENEFITS OF REHAB. HE IS AWARE THAT IT IS TEMPORARY AND AFTER 1-2 WEEKS OF REHAB HE CAN GO BACK HOME. SW TO ARRANGE FOR TRANSPORTATION TO [facility] THIS AFTERNOON. NO FURTHER ORDERS. Objective - Vital Signs/Intake and Output Vital Signs (last 24 hours): Temp Pulse Resp BP Pulse Ox 97.6 F 86 18 106/63 100 01/16/18 07:35 01/16/18 07:35 01/16/18 07:35 01/16/18 10:31 01/16/18 07:35 Intake and Output: 01/16/18 01/16/18 06:59 18:59 Intake Total 350 Output Total 600 Balance -250 - Medications Medications: Current Medications Aspirin (Aspirin) 325 mg PO DAILY [facility] Last Admin: 01/16/18 10:31 Dose: 325 mg Insulin Human Regular (Novolin R) 0 unit SC Q6H [facility] PRN Reason: Protocol Last Admin: 01/16/18 07:47 Dose: 2 unit Metoprolol Tartrate (Lopressor) 25 mg PO BID [facility] Last Admin: 01/16/18 10:31 Dose: 25 mg Ondansetron HCl (Zofran Inj) 4 mg IVP Q6H PRN PRN Reason: Nausea/Vomiting Pantoprazole Sodium (Protonix Susp) 40 mg PO DAILY [facility] Last Admin: 01/16/18 10:31 Dose: 40 mg Rosuvastatin Calcium (Crestor) 20 mg PO [facility] Last Admin: 01/15/18 22:28 Dose: 20 mg Sertraline HCl (Zoloft) 25 mg PO DAILY [facility] Last Admin: 01/16/18 10:31 Dose: 25 mg Sitagliptin Phosphate (Januvia) 50 mg PO DAILY [facility] Trazodone HCl (Desyrel) 25 mg PO [facility] Last Admin: 01/15/18 22:29 Dose: 25 mg - Labs Labs: 01/13/18 06:29 01/13/18 06:29 PT 12.5 SECONDS (9.7-12.2) H 12/22/17 16:18 INR 1.1 12/22/17 16:18 APTT 48 SECONDS (21-34) H D 12/28/17 05:53
[2018-01-16 16:08] VITALS: BP 110/77; PULSE 88; RESP 20; TEMP 97.5
--- NOTE | 2018-01-16 22:17 | CP.PCM.DIS ---
Provider - Provider Date of Admission: 12/22/17 16:17 Attending physician: Alex Siddiqui MD Time Spent in preparation of Discharge (in minutes): 56 Diagnosis - Discharge Diagnosis (1) Perforated abdominal viscus Status: Acute (2) Diabetes mellitus Status: Acute (3) GERD (gastroesophageal reflux disease) Status: Acute (4) Acute non-ST elevation myocardial infarction (NSTEMI) Status: Acute Hospital Course - Lab Results Lab Results: Micro Results 01/10/18 20:11 Nose MRSA Culture - Final MRSA NOT DETECTED 12/26/17 11:30 Blood Blood Culture - Final NO GROWTH AFTER 5 DAYS 12/26/17 11:30 Blood Gram Stain - Final TEST NOT PERFORMED 12/26/17 11:00 Blood Blood Culture - Final NO GROWTH AFTER 5 DAYS 12/26/17 11:00 Blood Gram Stain - Final TEST NOT PERFORMED 12/22/17 16:24 Blood Blood Culture - Final NO GROWTH AFTER 5 DAYS 12/22/17 16:24 Blood Gram Stain - Final TEST NOT PERFORMED 12/22/17 16:10 Blood Blood Culture - Final NO GROWTH AFTER 5 DAYS 12/22/17 16:10 Blood Gram Stain - Final TEST NOT PERFORMED 12/22/17 22:35 Peritoneal Fluid Gram Stain - Final 12/22/17 22:35 Peritoneal Fluid Body Fluid Culture - Final No growth. 12/22/17 Unknown Nose MRSA Culture (Admit) - Final MRSA NOT DETECTED 12/22/17 17:15 Urine,[place] Urine Culture - Final No Growth (<1,000 CFU/ML) Most Recent Lab Values WBC 7.8 K/uL (4.8-10.8) 01/13/18 06:29 RBC 3.15 Mil/uL (4.40-5.90) L 01/13/18 06:29 Hgb 9.5 g/dL (12.0-18.0) L 01/13/18 06:29 Hct 28.8 % (35.0-51.0) L 01/13/18 06:29 MCV 91.6 fL (80.0-94.0) 01/13/18 06:29 MCH 30.2 pg (27.0-31.0) 01/13/18 06:29 MCHC 33.0 g/dL (33.0-37.0) 01/13/18 06:29 RDW 13.7 % (11.5-14.5) 01/13/18 06:29 Plt Count 275 K/uL (130-400) 01/13/18 06:29 MPV 10.4 fL (7.2-11.7) 01/13/18 06:29 Neut % (Auto) 79.3 % (50.0-75.0) H 01/13/18 06:29 Lymph % (Auto) 9.2 % (20.0-40.0) L 01/13/18 06:29 [place] % (Auto) 9.6 % (0.0-10.0) 01/13/18 06:29 Eos % (Auto) 1.1 % (0.0-4.0) 01/13/18 06: Baso % (Auto) 0.8 % (0.0-2.0) 01/13/18 06:29 Neut # (Auto) 6.2 K/uL (1.8-7.0) 01/13/18 06:29 Lymph # (Auto) 0.7 K/uL (1.0-4.3) L 01/13/18 06:29 [place] # (Auto) 0.7 K/uL (0.0-0.8) 01/13/18 06:29 Eos # (Auto) 0.1 K/uL (0.0-0.7) 01/13/18 06:29 Baso # (Auto) 0.1 K/uL (0.0-0.2) 01/13/18 06:29 Neutrophils % (Manual) 82 % (50-75) H 01/13/18 06:29 Band Neutrophils % 2 % (0-2) 01/06/18 06:21 Lymphocytes % (Manual) 6 % (20-40) L 01/13/18 06:29 Monocytes % (Manual) 12 % (0-10) H 01/13/18 06:29 Eosinophils % (Manual) 3 % (0-4) 01/06/18 06:21 Basophils % (Manual) 1 % (0-2) 12/23/17 06:07 Metamyelocytes % 1 % (0-0) H 12/24/17 06:10 Myelocytes % 1 % (0-0) H 12/22/17 23:25 Plasma Cell % (Manual) 1 (0-0) H 12/25/17 06:18 Toxic Granulation Present 01/13/18 06:29 Dohle Bodies Present 12/27/17 06:04 Platelet Estimate Normal (NORMAL) 01/13/18 06:29 Large Platelets Present 01/13/18 06:29 Giant Platelets Present 12/31/17 06:17 RBC Morphology Normal 01/06/18 06:21 Polychromasia Slight 01/13/18 06:29 Hypochromasia (manual) Slight 01/13/18 06:29 Poikilocytosis (manual Slight 12/31/17 06:17 Anisocytosis (manual) Slight 01/13/18 06:29 Target Cells Slight 01/01/18 06:01 Ovalocytes Slight 12/31/17 06:17 [place] Cells Slight 12/30/17 06:18 PT 12.5 SECONDS (9.7-12.2) H 12/22/17 16:18 INR 1.1 12/22/17 16:18 APTT 48 SECONDS (21-34) H D 12/28/17 05:53 Puncture Site Rra 12/24/17 12:00 pCO2 30 mm/Hg (35-45) L 12/24/17 12:00 pO2 70 mm/Hg (80-100) L 12/24/17 12:00 HCO3 23.7 mmol/L (21-28) 12/24/17 12:00 ABG pH 7.46 (7.35-7.45) H 12/24/17 12:00 ABG Total CO2 22.2 mmol/L (22-28) 12/24/17 12:00 ABG O2 Saturation 96.5 % (95-98) 12/24/17 12:00 ABG Base Excess -1.5 mmol/L (-2.0-3.0) 12/24/17 12:00 Eyal Test Po 12/24/17 12:00 ABG Potassium 3.6 mmol/L (3.6-5.2) 12/24/17 12:00 A-a O2 Difference 142.0 mm/Hg 12/24/17 12:00 Respiratory Index 2.0 12/24/17 12:00 Sodium 136.0 mmol/l (132-148) 12/24/17 12:00 Chloride 105.0 mmol/L (98-107) 12/24/17 12:00 Glucose 219 mg/dl (75-110) H 12/24/17 12:00 Lactate 1.3 mmol/L (0.7-2.1) 12/24/17 12:00 Liter Flow 4.0 12/24/17 12:00 FiO2 35.0 % 12/24/17 12:00 Crit Value Called To Maria Luisa agricultural and forestry supervisor 12/22/17 22:37 Crit Value Called By Harlan 12/22/17 22:37 Crit Value Read Back Y 12/22/17 22:37 Blood Gas Notified Time 224112/22/17 22:37 Sodium 144 mmol/L (132-148) 01/13/18 06:29 Potassium 4.7 mmol/L (3.6-5.2) 01/13/18 06:29 Chloride 105 mmol/L (98-107) 01/13/18 06:29 Carbon Dioxide 31 mmol/L (22-30) H 01/13/18 06:29 Anion Gap 14 (10-20) 01/13/18 06:29 BUN 29 mg/dL (9-20) H 01/13/18 06:29 Creatinine 1.2 mg/dL (0.8-1.5) 01/13/18 06:29 Est GFR ( Amer) > 60 01/13/18 06:29 Est GFR (Non-Af Amer) 59 01/13/18 06:29 POC Glucose (mg/dL) 383 mg/dL (65-110) H 01/16/18 16:43 Random Glucose 293 mg/dL (75-110) H 01/13/18 06:29 Lactic Acid 2.8 mmol/L (0.7-2.1) H 12/22/17 16:18 Calcium 9.9 mg/dl (8.6-10.4) 01/13/18 06:29 Phosphorus 2.7 mg/dL (2.5-4.5) 01/03/18 06:28 Magnesium 1.6 mg/dL (1.6-2.3) 01/03/18 06:28 Total Bilirubin 0.5 mg/dL (0.2-1.3) 01/13/18 06:29 AST 112 U/L (17-59) H 01/13/18 06:29 ALT 128 U/L (21-72) H 01/13/18 06:29 Alkaline Phosphatase 173 U/L (38-126) H 01/13/18 06:29 Total Creatine Kinase 108 U/L (55-170) 12/26/17 01:50 CK-MB (Mass) 1.79 ng/mL (0.0-3.38) 12/26/17 01:50 Troponin I 2.2300 ng/mL (0.00-0.120) H* 12/27/17 13:05 Total Protein 6.1 g/dL (6.3-8.3) L 01/13/18 06:29 Albumin 2.6 g/dL (3.5-5.0) L 01/13/18 06:29 Globulin 3.5 gm/dL (2.2-3.9) 01/13/18 06:29 Albumin/Globulin Ratio 0.8 (1.0-2.1) L 01/13/18 06:29 Triglycerides 107 mg/dL (0-149) 12/27/17 06:04 Cholesterol 69 mg/dL (0-199) 12/27/17 06:04 LDL Cholesterol Direct < 30 mg/dL (0-129) 12/27/17 06:04 HDL Cholesterol 25 mg/dL (30-70) L 12/27/17 06:04 Lipase 180 U/L (23-300) 12/22/17 12:44 Beta-Hydroxybutyric Acd None detected mcg/mL 12/30/17 06:18 Arterial Blood Potassium 3.6 mmol/L (3.6-5.2) 12/24/17 12:00 Urine Color Yellow (YELLOW) 12/22/17 14:39 Urine Clarity Clear (Clear) 12/22/17 14:39 Urine pH 5.0 (5.0-8.0) 12/22/17 14:39 Ur Specific [place] 1.013 (1.003-1.030) 12/22/17 14:39 Urine Protein Negative mg/dL (NEGATIVE) 12/22/17 14:39 Urine Glucose (UA) 3+ mg/dL (Normal) H 12/22/17 14:39 Urine Ketones 1+ mg/dL (NEGATIVE) H 12/22/17 14:39 Urine Blood Negative (NEGATIVE) 12/22/17 14:39 Urine Nitrate Negative (NEGATIVE) 12/22/17 14:39 Urine Bilirubin Negative (NEGATIVE) 12/22/17 14:39 Urine Urobilinogen Normal mg/dL (0.2-1.0) 12/22/17 14:39 Ur Leukocyte Esterase Neg Lenore/uL (Negative) 12/22/17 14:39 Urine WBC (Auto) < 1 /hpf (0-5) 12/22/17 14:39 Vancomycin Trough 14.2 ug/mL (5.0-10.0) H 12/29/17 06:15 Digoxin 1.7 ng/mL (0.8-2.0) 12/28/17 05:53 Serum Ketones Negative (NEGATIVE) 12/30/17 06:18 Blood Type O POSITIVE 12/22/17 16:25 Antibody Screen Negative 12/22/17 16:25 - Hospital Course Hospital Course: PT CLEARED FOR D/C TODAY TO [facility] , I SPOKE WITH THE PT ABOUT THE BENEFITS OF REHAB AND HE NODS "YES" THAT HE AGREES ON THE BENEFITS OF REHAB. HE IS AWARE THAT IT IS TEMPORARY AND AFTER 1-2 WEEKS OF REHAB HE CAN GO BACK HOME. SW TO ARRANGE FOR TRANSPORTATION TO [facility] THIS AFTERNOON. NO FURTHER ORDERS. Discharge Exam - Head Exam Head Exam: ATRAUMATIC, NORMAL INSPECTION, NORMOCEPHALIC Discharge Plan - Follow Up Plan Condition: GUARDED Disposition: REHAB FACILITY/REHAB UNIT Instructions: Heart Healthy Diet, Heart Failure, Adult (DC), Cardiac Catheterization (DC), Exploratory Laparotomy (DC), Perforation of the GI Tract ( DC) Additional Instructions: -PLEASE PLACE UNDER THE SERVICE OF DR. SIDDIQUI WHILE AT [facility]--CALL UPON ARRIVAL TO FACILITY FOR ADMITTING ORDERS. -CONTINUE MEDICATIONS PER THE MED REC FORM---CHANGES PER DR. SIDDIQUI. -PHYSICAL THERAPY TOLERATED. -FOR FOLLOW UP WITH DR. MILAN AND DR. OLIVIER AFTER DISCHARGE FROM REHAB. Referrals: Brandon Milan MD [Staff Provider] - Kd Jimenez MD [Staff Provider] - Joselyn Ly MD [Staff Provider] - Alex Siddiqui MD [Staff Provider] - Fred Olivier MD [Staff Provider] - Mark Martinez MD [Medical Doctor] -
== END 2018-01-16 19:45 | DRG 853 ==
LOC: C.ER 11:37 → C.9E 16:17 → C.3T 17:24 → C.9S 18:50 → C.9I 21:16 → UNDODISIN 12-28 16:40 → C.9I 01-03 00:53 → C.6T 01-10 18:28
PROVIDERS: ADMIT Internal Medicine; ATTEND Internal Medicine
PROC: 0W9F00Z Drainage of Abdominal Wall with Drainage Device, Open Approach (ICD-10-PCS; 2017-12-22)
PROC: 0JH80VZ Insertion of Infusion Pump into Abdomen Subcutaneous Tissue and Fascia, Open Approach (ICD-10-PCS; 2017-12-22)
PROC: 3E013NZ Introduction of Analgesics, Hypnotics, Sedatives into Subcutaneous Tissue, Percutaneous Approach (ICD-10-PCS; 2017-12-22)
PROC: 0DU907Z Supplement Duodenum with Autologous Tissue Substitute, Open Approach (ICD-10-PCS; principal; 2017-12-22 18:00)
PROC: 4A023N7 Measurement of Cardiac Sampling and Pressure, Left Heart, Percutaneous Approach (ICD-10-PCS; 2017-12-25)
PROC: B211YZZ Fluoroscopy of Multiple Coronary Arteries using Other Contrast (ICD-10-PCS; 2017-12-25)
PROC: B215YZZ Fluoroscopy of Left Heart using Other Contrast (ICD-10-PCS; 2017-12-25)
PROC: 5A09457 Assistance with Respiratory Ventilation, 24-96 Consecutive Hours, Continuous Positive Airway Pressure (ICD-10-PCS; 2017-12-29)
DX: A41.9 Sepsis, unspecified organism (principal); K26.1 Acute duodenal ulcer with perforation; E43 Unspecified severe protein-calorie malnutrition; I21.4 Non-ST elevation (NSTEMI) myocardial infarction; J18.9 Pneumonia, unspecified organism; J96.01 Acute respiratory failure with hypoxia; K65.9 Peritonitis, unspecified; F32.2 Major depressive disorder, single episode, severe without psychotic features; I50.30 Unspecified diastolic (congestive) heart failure; I97.191 Other postprocedural cardiac functional disturbances following other surgery; I48.1 Persistent atrial fibrillation; J98.11 Atelectasis; R64 Cachexia; E78.00 Pure hypercholesterolemia, unspecified; I25.10 Atherosclerotic heart disease of native coronary artery without angina pectoris; I11.0 Hypertensive heart disease with heart failure; R65.20 Severe sepsis without septic shock; E11.65 Type 2 diabetes mellitus with hyperglycemia; I35.1 Nonrheumatic aortic (valve) insufficiency; Y83.8 Other surgical procedures as the cause of abnormal reaction of the patient, or of later complication, without mention of misadventure at the time of the procedure; R62.7 Adult failure to thrive; K21.9 Gastro-esophageal reflux disease without esophagitis; M43.6 Torticollis; Z88.0 Allergy status to penicillin; Z96.651 Presence of right artificial knee joint; Z79.4 Long term (current) use of insulin

== ENCOUNTER 2018-01-26 14:58 | Inpatient (IN) | payer MEDICARE ==
--- NOTE | 2018-01-26 15:44 | C.PDOC ---
History Of Present Illness Patient is a 77 y/o male who presents to the ED from [facility] for worsening abdominal pain, decreased appetite, and constipation since a surgery performed for perforated gastric ulcer by Dr. Villa. Post surgery, [facility] when weakness and symptoms gradually developed. Patient has no other physical complaints at this time. Time Seen by Provider: 01/26/18 15:29 Chief Complaint (Nursing): Abdominal Pain History Per: Patient, Other (prison) History/Exam Limitations: no limitations Onset/Duration Of Symptoms: Days (surgery on 12/22/17), Gradual, Worse Since Current Symptoms Are (Timing): Still Present Associated Symptoms: Loss Of Appetite, Constipation, Other (weakness) Past Medical History Reviewed: Historical Data, Nursing Documentation, Vital Signs Vital Signs: Last Vital Signs Temp 97.8 F 01/26/18 15:04 Pulse 93 H 01/26/18 18:06 Resp 27 H 01/26/18 18:06 BP 113/64 01/26/18 18:06 Pulse Ox 100 01/26/18 18:06 - Medical History PMH: Arthritis (L TKR), HTN, Hypercholesterolemia, Hyperlipidemia Denies: Chronic Kidney Disease - [facility] Procedures ASSISTANCE WITH RESPIRATORY VENTILATION, 24-96 HRS, CPAP (12/22/17) DRAINAGE OF ABDOMINAL WALL WITH DRAIN DEV, OPEN APPROACH (12/22/17) FLUOROSCOPY OF LEFT HEART USING OTHER CONTRAST (12/22/17) FLUOROSCOPY OF MULTIPLE CORONARY ARTERIES USING OTH CONTRAST (12/22/17) INSERT OF INFUSION PUMP INTO ABD SUBCU/FASCIA, OPEN APPROACH (12/22/17) INTRODUCTION OF ANALG/HYPNOT/SEDAT INTO SUBCU, PERC APPROACH (12/22/17) MEASURE OF CARDIAC SAMPL & PRESSURE, L HEART, PERC APPROACH (12/22/17) SUPPLEMENT DUODENUM WITH AUTOL SUB, OPEN APPROACH (12/22/17) Family History: States: No Known Family Hx - Social History Hx Tobacco Use: No Hx Alcohol Use: No Hx Substance Use: No - Immunization History Hx Tetanus Toxoid Vaccination: No Hx Influenza Vaccination: Yes Hx Pneumococcal Vaccination: Yes Review Of Systems Constitutional: Positive for: Weakness Gastrointestinal: Positive for: Abdominal Pain, Constipation, Other (decreased appetite) Physical Exam - Physical Exam Appears: Non-toxic, No Acute Distress, Chronically Ill, Other (lethargic) Skin: Normal Color, Warm, Dry Head: Atraumatic, Normacephalic Oral Mucosa: Dry Chest: Symmetrical Cardiovascular: Rhythm Regular, No Murmur Respiratory: Normal Breath Sounds, No Rales, No Rhonchi, No Wheezing Gastrointestinal/Abdominal: Soft, Tenderness (upper abdomen), Other (healed midline surgical scar, negative discharge or erythema) Neurological/Psych: Normal Speech, Normal Cognition ED Course And Treatment - Laboratory Results Result Diagrams: 01/26/18 16:27 01/26/18 16:27 O2 Sat by Pulse Oximetry: 97 Progress Note: CT abdomen/pelvis ordered. Zofran and IV fluids administered. Disposition - Disposition Disposition: HOSPITALIZED Disposition Time: 19:00 Condition: SERIOUS Forms: [facility] (Kenyan) - Clinical Impression Clinical Impression: Abdominal pain - Scribe Statement The provider has reviewed the documentation as recorded by the Scribe Lily Norman All medical record entries made by the Scribe were at my direction and personally dictated by me. I have reviewed the chart and agree that the record accurately reflects my personal performance of the history, physical exam, medical decision making, and the department course for this patient. I have also personally directed, reviewed, and agree with the discharge instructions and disposition. Physician Patient Turnover Patient Signed Over To: Dwayne Romero Handoff Comments: CT abd/pelvis, dispo
[2018-01-26] MEDS ORDERED: Sodium Chloride 0.9% 500 ML IV STA (16:09)
[2018-01-26 16:34] LABS: BASO # 0.1 K/uL (0.0-0.2); BASO % 0.7 % (0.0-2.0); EOS % 0.4 % (0.0-4.0); HEMOGLOBIN 10.4 g/dL (12.0-18.0); LYMPH # 1.8 K/uL (1.0-4.3); MEAN CELL VOLUME 91.7 fL (80.0-94.0); MEAN CORPUSCULAR HEMOGLOBIN 29.6 pg (27.0-31.0); MEAN CORPUSCULAR HGB CONC 32.3 g/dL (33.0-37.0); MEAN PLATELET VOLUME 9.9 fL (7.2-11.7); MONO # 0.7 K/uL (0.0-0.8); MONO % 5.1 % (0.0-10.0); NEUT # 10.3 K/uL (1.8-7.0); NEUT % 79.8 % (50.0-75.0); NRBC % 0.1 % (0.0-2.0); RBC 3.5 Mil/uL (4.40-5.90); RED CELL DISTRIBUTION WIDTH 14.3 % (11.5-14.5); WHITE BLOOD COUNT 12.9 K/uL (4.8-10.8)
[2018-01-26] MEDS ORDERED: Sodium Chloride 0.9% 500 ML IV ONE (16:38)
[2018-01-26 16:40] LABS: INR 1.1; PROTHROMBIN TIME 11.6 SECONDS (9.7-12.2)
[2018-01-26 17:21] LABS: ALB/GLOB RATIO 0.8 (1.0-2.1); ALBUMIN 3.2 g/dL (3.5-5.0); ALT/SGPT 138 U/L (21-72); AST/SGOT 86 U/L (17-59); BLOOD UREA NITROGEN 31 mg/dL (9-20); GFR AFRICAN-AMERICAN > 60; GFR NON-AFRICAN AMERICAN > 60; LIPASE 297 U/L (23-300)
[2018-01-26 17:45] LABS: URINE BACTERIA OCC (<OCC); URINE BILIRUBIN NEGATIVE (NEGATIVE); URINE BLOOD NEGATIVE (NEGATIVE); URINE CLARITY Clear (Clear); URINE COLOR Yellow (YELLOW); URINE GLUCOSE (UA) 3+ mg/dL (Normal); URINE LEUKOCYTE ESTERASE NEG Leu/uL (Negative); URINE PROTEIN 1+ mg/dL (NEGATIVE); URINE UROBILINOGEN NORMAL mg/dL (0.2-1.0)
[2018-01-26] MEDS ORDERED: Iodixanol 320 MG/ML 100 ML BOTTLE IV ONE (18:38)
[2018-01-26] MEDS ORDERED: Heparin25000 units/250ml 1/2NS 25,000 UNITS/250 ML BAG IV ONE (21:33)
[2018-01-26] MEDS ORDERED: traZODone 25 mg Tab PO SCH (22:00)
[2018-01-26] MEDS ORDERED: Heparin25000 units/250ml 1/2NS 25,000 UNITS/250 ML BAG IV PRN (22:03)
[2018-01-26] MEDS: (Novolin R) Insulin Human Regular 100 units/ml vial SC SCH (22:29)
[2018-01-27] MEDS ORDERED: Sodium Chloride 0.9% 500 ML IV ONE ×2 (02:39→04:19)
[2018-01-27] MEDS ORDERED: Metoprolol 1 mg/ml Inj IVP ONE ×2 (03:10→11:15)
[2018-01-27 03:29] LABS: BASO # 0.1 K/uL (0.0-0.2); BASO % 0.4 % (0.0-2.0); EOS % 0.1 % (0.0-4.0); HEMOGLOBIN 8.4 g/dL (12.0-18.0); LYMPH # 2.4 K/uL (1.0-4.3); LYMPH % 14.7 % (20.0-40.0); MEAN CELL VOLUME 92.8 fL (80.0-94.0); MEAN CORPUSCULAR HEMOGLOBIN 30.4 pg (27.0-31.0); MEAN CORPUSCULAR HGB CONC 32.7 g/dL (33.0-37.0); MEAN PLATELET VOLUME 9.7 fL (7.2-11.7); MONO % 5.9 % (0.0-10.0); NEUT # 12.9 K/uL (1.8-7.0); NEUT % 78.9 % (50.0-75.0); RBC 2.75 Mil/uL (4.40-5.90); RED CELL DISTRIBUTION WIDTH 14.9 % (11.5-14.5); WHITE BLOOD COUNT 16.4 K/uL (4.8-10.8)
[2018-01-27 03:37] LABS: INR 1.4; PROTHROMBIN TIME 15.5 SECONDS (9.7-12.2)
[2018-01-27 03:41] LABS: ALB/GLOB RATIO 0.8 (1.0-2.1); ALBUMIN 2.4 g/dL (3.5-5.0); ALT/SGPT 92 U/L (21-72); AST/SGOT 45 U/L (17-59); BLOOD UREA NITROGEN 37 mg/dL (9-20); CALCIUM 9.6 mg/dl (8.6-10.4); GFR AFRICAN-AMERICAN > 60; GFR NON-AFRICAN AMERICAN 59
[2018-01-27] MEDS ORDERED: Albumin Human 25% (12.5 gm/50 ml) IV ONE (03:43)
[2018-01-27 03:47] VITALS: BMI 26.4
[2018-01-27 04:20] LABS: VENOUS BLOOD GAS PCO2 40 mmHg (40-60); VENOUS BLOOD GAS PO2 22 mm/Hg (30-55); VENOUS BLOOD PH 7.37 (7.32-7.43)
[2018-01-27] MEDS: Aztreonam 2 GM in Sodium Chloride 0.9% 100 ML IVPB SCH ×3 (05:09→21:00)
--- NOTE | 2018-01-27 05:12 | CP.PCM.PN ---
<Brigitte Tom - Last Filed: 01/27/18 06:22> Subjective - Date & Time of Evaluation Date of Evaluation: 01/27/18 Time of Evaluation: 02:00 - Subjective Subjective: Patient was seen and examined at bedside for hypotension and tachycardia. Patient has been admitted to the hospital for pulmonary embolism. B/P 73/46, HR 135, O2 97 on 3L NC. Patient states he does not feel well and everything hurts. Patient is oriented x3. 500ml of NS is ordered and blood pressure remains the same 79/47 and HR 150. Patient is given 2.5mg Metoprolol IV and blood pressure 91/54 and HR 130. Patient is given albumin 12.5 and another bolus 500ml of NS. Blood work is ordered: CBC, CMP, Mag, Phos, VBG Shock, Type & Cross, 2units of PRBC. Hemoglobin decreased from 10.4 --> 8.4. One unit of PRBC was ordered for administration. Spoke with ICU attending Dr. Chavira for possible transfer to ICU if patient does not improve. Dr. Siddiqui was notified. Dr. Siddiqui requested orders of: Protonix 40mg IV once, stool occult, and Pulmonary consult, Dr. Faye. Objective - Vital Signs/Intake and Output Vital Signs (last 24 hours): Temp Pulse Resp BP Pulse Ox 98.2 F 132 H 20 89/57 L 97 01/27/18 02:35 01/27/18 04:33 01/27/18 02:35 01/27/18 04:55 01/27/18 02:35 - Medications Medications: Current Medications Aspirin (Ecotrin) 81 mg PO DAILY [facility] Heparin Sodium/Sodium Chloride (Heparin 73651 Units/250ml 1/2 Normal Saline) 25 ,000 units in 250 mls @ 10.614 mls/hr IV .[id number] PRN; Protocol; 18 UNITS/KG/HR PRN Reason: ADJUST RATE PER PROTOCOL Last Admin: 01/26/18 22:23 Dose: 18 units/kg/hr, 10.614 mls/hr Aztreonam 2 gm/ Sodium (Chloride) 100 mls @ 200 mls/hr IVPB Q8H [facility] PRN Reason: Protocol Vancomycin HCl 1 gm/ Sodium (Chloride) 200 mls @ 133.333 mls/hr IVPB Q24H [facility] PRN Reason: Protocol Insulin Human Regular (Novolin R) 0 unit SC ACHS [facility] PRN Reason: Protocol Last Admin: 01/26/18 22:29 Dose: Not Given Metoprolol Tartrate (Lopressor) 25 mg PO BID [facility] Multivitamins (Hexavitamin) 1 tab PO DAILY [facility] Pantoprazole Sodium (Protonix Susp) 40 mg PO DAILY [facility] Rosuvastatin Calcium (Crestor) 20 mg PO HS [facility] Last Admin: 01/26/18 22:05 Dose: 20 mg Sertraline HCl (Zoloft) 25 mg PO DAILY [facility] Sitagliptin Phosphate (Januvia) 50 mg PO DAILY [facility] Trazodone HCl (Desyrel) 25 mg PO HS [facility] Last Admin: 01/26/18 22:26 Dose: 25 mg - Labs Labs: 01/27/18 03:25 01/27/18 03:11 PT 15.5 SECONDS (9.7-12.2) H 01/27/18 03:11 INR 1.4 01/27/18 03:11 APTT 104 SECONDS (21-34) H* D 01/27/18 03:11 <Ray Garcia P - Last Filed: 02/10/18 19:24> Objective - Vital Signs/Intake and Output Vital Signs (last 24 hours): Temp Pulse Resp BP Pulse Ox 98.7 F 83 20 115/64 96 02/10/18 16:00 02/10/18 16:30 02/10/18 16:00 02/10/18 16:00 02/10/18 16:00 Intake and Output: 02/10/18 02/11/18 18:59 06:59 Intake Total 964 Output Total 200 Balance 764 - Medications Medications: Current Medications Docusate Sodium (Colace) 100 mg PO BID [facility] Last Admin: 02/10/18 17:42 Dose: 100 mg Hydromorphone HCl (Dilaudid) 0.5 mg IVP Q4H PRN PRN Reason: Pain, severe (8-10) Last Admin: 02/09/18 08:17 Dose: 0.5 mg Multivitamins/Vitamin C 10 ml/Chromium/Copper/Manganese/Zinc 1 ml/ Amino Acids 1,011 mls @ 42 mls/hr IV .Q24H [facility] Stop: 02/11/18 17:59 Last Admin: 02/10/18 17:41 Dose: 42 mls/hr Insulin Aspart (Novolog) 0 unit SC Q6H [facility] PRN Reason: Protocol Last Admin: 02/10/18 18:12 Dose: 4 unit Insulin Glargine (Lantus) 10 unit SC DAILY [facility] Last Admin: 02/10/18 09:38 Dose: 10 units Metoprolol Succinate (Toprol Xl) 12.5 mg PO DAILY [facility] Last Admin: 02/10/18 09:38 Dose: Not Given Midodrine (Proamatine) 2.5 mg PO TID [facility] Last Admin: 02/10/18 17:45 Dose: 2.5 mg Multivitamins (Hexavitamin) 1 tab PO DAILY [facility] Last Admin: 02/09/18 09:35 Dose: 1 tab Pantoprazole Sodium (Protonix Susp) 40 mg PO BID [facility] Last Admin: 02/10/18 17:43 Dose: 40 mg Rosuvastatin Calcium (Crestor) 5 mg PO [facility] Last Admin: 02/09/18 21:22 Dose: 5 mg Sertraline HCl (Zoloft) 25 mg PO DAILY [facility] Last Admin: 02/10/18 09:38 Dose: 25 mg Trazodone HCl (Desyrel) 25 mg PO [facility] Last Admin: 02/09/18 21:21 Dose: 25 mg - Labs Labs: 02/07/18 06:32 02/07/18 06:32 PT 15.9 SECONDS (9.7-12.2) H 02/04/18 06:22 INR 1.5 02/04/18 06:22 APTT 32 SECONDS (21-34) 02/04/18 06:22 Attending/Attestation - Attestation I have personally seen and examined this patient.: Yes I have fully participated in the care of the patient.: Yes I have reviewed all pertinent clinical information, including history, physical exam and plan: Yes
--- NOTE | 2018-01-27 05:53 | CP.PCM.HP ---
History of Present Illness - History of Present Illness History of Present Illness: Patient was seen and examined at bedside for hypotension and tachycardia. Patient has been admitted to the hospital for pulmonary embolism. B/P 73/46, HR 135, O2 97 on 3L NC. Patient states he does not feel well and everything hurts. Patient is oriented x3. 500ml of NS is ordered and blood pressure remains the same 79/47 and HR 150. Patient is given 2.5mg Metoprolol IV and blood pressure 91/54 and HR 130. Patient is given albumin 12.5 and another bolus 500ml of NS. Blood work is ordered: CBC, CMP, Mag, Phos, VBG Shock, Type & Cross, 2units of PRBC. Hemoglobin decreased from 10.4 --> 8.4. One unit of PRBC was ordered for administration. Spoke with ICU attending Dr. Chavira for possible transfer to ICU if patient does not improve. Present on Admission - Present on Admission Any Indicators Present on Admission: No Past Patient History - Infectious Disease Hx of Infectious Diseases: None - Past Medical History & Family History Past Medical History?: Yes - Past Social History Smoking Status: Former Smoker - CARDIAC Hx Hypercholesterolemia: Yes Hx Hypertension: Yes - PULMONARY Hx Respiratory Disorders: No - NEUROLOGICAL Hx Neurological Disorder: Yes Hx Syncope: Yes - HEENT Hx HEENT Problems: No - RENAL Hx Chronic Kidney Disease: No - ENDOCRINE/METABOLIC Hx Diabetes Mellitus Type 2: Yes - HEMATOLOGICAL/ONCOLOGICAL Hx Blood Disorders: No - INTEGUMENTARY Hx Dermatological Problems: No - MUSCULOSKELETAL/RHEUMATOLOGICAL Hx Falls: No - GASTROINTESTINAL Hx Gastrointestinal Disorders: Yes Hx Gastroesophageal Reflux: Yes - GENITOURINARY/GYNECOLOGICAL Hx Genitourinary Disorders: No - PSYCHIATRIC Hx Substance Use: No - SURGICAL HISTORY Hx Surgeries: Yes Other/Comment: left knee replacement, and left nerve repair, left and right hand nerve repair, Exp.Lap 12/22/17, - ANESTHESIA Hx Anesthesia: Yes Hx Anesthesia Reactions: No Hx Malignant Hyperthermia: No Has any member of the family had a problem w/ anesthesia?: No Meds Allergies/Adverse Reactions: Allergies Allergy/AdvReac Type Severity Reaction Status Date / Time Penicillins Allergy Mild Verified 01/26/18 15:08 Results - Vital Signs Recent Vital Signs: Last Vital Signs Temp 98.2 F 01/27/18 02:35 Pulse 132 H 01/27/18 04:33 Resp 20 01/27/18 02:35 BP 89/57 L 01/27/18 04:55 Pulse Ox 97 01/27/18 02:35 - Labs Result Diagrams: 01/30/18 06:06 01/30/18 06:06 Labs: Laboratory Results - last 24 hr 01/26/18 01/26/18 01/26/18 16:27 16:27 16:27 WBC 12.9 H D RBC 3.50 L Hgb 10.4 L Hct 32.1 L MCV 91.7 MCH 29.6 MCHC 32.3 L RDW 14.3 Plt Count 248 MPV 9.9 Neut % (Auto) 79.8 H Lymph % (Auto) 14.0 L Peach % (Auto) 5.1 Eos % (Auto) 0.4 Baso % (Auto) 0.7 Neut # (Auto) 10.3 H Lymph # (Auto) 1.8 [place] # (Auto) 0.7 Eos # (Auto) 0.0 Baso # (Auto) 0.1 PT 11.6 INR 1.1 APTT 27 pO2 VBG pH VBG pCO2 VBG HCO3 VBG Total CO2 VBG O2 Sat (Calc) VBG Base Excess VBG Potassium Glucose Lactate Crit Value Called To Crit Value Called By Crit Value Read Back Blood Gas Notified Time Sodium 142 Potassium 4.2 Chloride 100 Carbon Dioxide 33 H Anion Gap 13 BUN 31 H Creatinine 0.9 Est GFR ( Amer) > 60 Est GFR (Non-Af Amer) > 60 Random Glucose 173 H Lactic Acid Calcium 11.0 H Phosphorus Magnesium Total Bilirubin 0.5 AST 86 H D ALT 138 H Alkaline Phosphatase 174 H Total Protein 7.2 Albumin 3.2 L D Globulin 4.1 H Albumin/Globulin Ratio 0.8 L Lipase 297 Venous Blood Potassium Urine Color Urine Clarity Urine pH Ur Specific Gordon Urine Protein Urine Glucose (UA) Urine Ketones Urine Blood Urine Nitrate Urine Bilirubin Urine Urobilinogen Ur Leukocyte Esterase Urine WBC (Auto) Urine RBC (Auto) Urine Bacteria 01/26/18 01/26/18 01/27/18 16:39 17:31 03:11 WBC RBC Hgb Hct MCV MCH MCHC RDW Plt Count MPV Neut % (Auto) Lymph % (Auto) Peach % (Auto) Eos % (Auto) Baso % (Auto) Neut # (Auto) Lymph # (Auto) Peach # (Auto) Eos # (Auto) Baso # (Auto) PT 15.5 H INR 1.4 APTT 104 H* D pO2 VBG pH VBG pCO2 VBG HCO3 VBG Total CO2 VBG O2 Sat (Calc) VBG Base Excess VBG Potassium Glucose Lactate Crit Value Called To Crit Value Called By Crit Value Read Back Blood Gas Notified Time Sodium Potassium Chloride Carbon Dioxide Anion Gap BUN Creatinine Est GFR ( Amer) Est GFR (Non-Af Amer) Random Glucose Lactic Acid 1.8 Calcium Phosphorus Magnesium Total Bilirubin AST ALT Alkaline Phosphatase Total Protein Albumin Globulin Albumin/Globulin Ratio Lipase Venous Blood Potassium Urine Color Yellow Urine Clarity Clear Urine pH 6.0 Ur Specific Gordon 1.023 Urine Protein 1+ H Urine Glucose (UA) 3+ H Urine Ketones Negative Urine Blood Negative Urine Nitrate Negative Urine Bilirubin Negative Urine Urobilinogen Normal Ur Leukocyte Esterase Neg Urine WBC (Auto) < 1 Urine RBC (Auto) < 1 Urine Bacteria Occ H 01/27/18 01/27/18 01/27/18 03:11 03:25 04:00 WBC 16.4 H RBC 2.75 L Hgb 8.4 L D Hct 25.6 L MCV 92.8 MCH 30.4 MCHC 32.7 L RDW 14.9 H Plt Count 223 MPV 9.7 Neut % (Auto) 78.9 H Lymph % (Auto) 14.7 L Peach % (Auto) 5.9 Eos % (Auto) 0.1 Baso % (Auto) 0.4 Neut # (Auto) 12.9 H Lymph # (Auto) 2.4 Peach # (Auto) 1.0 H Eos # (Auto) 0.0 Baso # (Auto) 0.1 PT INR APTT pO2 22 L VBG pH 7.37 VBG pCO2 40 VBG HCO3 21.7 VBG Total CO2 24.3 VBG O2 Sat (Calc) 40.6 VBG Base Excess -2.0 L VBG Potassium 3.5 L Glucose 273 H Lactate 3.1 H Crit Value Called To Anjana lu 6t rn Crit Value Called By Paulina worley rt Crit Value Read Back Y Blood Gas Notified Time 420 Sodium 144 148.0 Potassium 5.0 Chloride 102 118.0 H Carbon Dioxide 29 Anion Gap 18 BUN 37 H Creatinine 1.2 Est GFR ( Amer) > 60 Est GFR (Non-Af Amer) 59 Random Glucose 360 H Lactic Acid Calcium 9.6 Phosphorus 2.8 Magnesium 1.3 L Total Bilirubin 0.4 AST 45 ALT 92 H D Alkaline Phosphatase 118 Total Protein 5.5 L Albumin 2.4 L D Globulin 3.0 Albumin/Globulin Ratio 0.8 L Lipase Venous Blood Potassium 3.5 L Urine Color Urine Clarity Urine pH Ur Specific Gordon Urine Protein Urine Glucose (UA) Urine Ketones Urine Blood Urine Nitrate Urine Bilirubin Urine Urobilinogen Ur Leukocyte Esterase Urine WBC (Auto) Urine RBC (Auto) Urine Bacteria
[2018-01-27] MEDS ORDERED: Sodium Chloride 0.9% 500 ML IV SCH (07:00)
--- NOTE | 2018-01-27 07:03 | CP.PCM.CON ---
History of Present Illness - History of Present Illness History of Present Illness: Patient was transferred to ICU because of the hypotension, tachycardia. Patient is a [id number] male with a history of hypertension and hypercholesteremia hyperlipidemia osteoarthritis, recently underwent Duodenal ulcer perforation repair. Patient was recovering from detention, but he started having abdominal pain, and unable to go to the bathroom, patient was sent to the emergency room. Patient was admitted to the medical floor, then he started having increasing heart rate, hypotension, then patient was transferred to ICU. The patient did not respond to IV fluid, and also medications. Patient underwent a CAT scan of the abdomen and pelvis, and they have there was mild evidence of PE Patient is now drowsy, sleepy, restless, tachycardia, and dry looking. Past medical history: Hypertension high cholesterol hyperlipidemia recent history of pneumonia. Postoperative, also recently had duodenal ulcer repair. Surgical history noted Allergic to penicillin Personal history nonsmoker nonalcoholic Review of systems noted from the chart. 10.0 system was noted Patient is drowsy sleepy, restless, tachycardia On examination: Vital signs unstable Heartbeat is 138 blood pressure 60/30 Saturation is 99% HEENT PERRLA Chest good air entry Regular heart sound Tachycardia noted. Abdomen soft dehydration noted Extremities edema negative Labs reviewed WBC elevation noted. Neutrophilic Chemistry showing elevated blood glucose liver function test is normal albumin is on the low side Assessment and recommendation: Patient is a 77-year-old male admitted to the hospital with a abdominal pain. CAT scan is nonspecific. Questionable pulmonary embolism Patient is currently on heparin. Hypotension tachycardia Sepsis possible Will start the patient on antibiotic IV fluid IV hydration. We will also do the blood transfusion. Patient may need vasopressors if he does not respond. Blood transfusion. Condition critical. Past Patient History - Infectious Disease Hx of Infectious Diseases: None - Past Medical History & Family History Past Medical History?: Yes - Past Social History Smoking Status: Former Smoker - CARDIAC Hx Hypercholesterolemia: Yes Hx Hypertension: Yes - PULMONARY Hx Respiratory Disorders: No - NEUROLOGICAL Hx Neurological Disorder: Yes Hx Syncope: Yes - HEENT Hx HEENT Problems: No - RENAL Hx Chronic Kidney Disease: No - ENDOCRINE/METABOLIC Hx Diabetes Mellitus Type 2: Yes - HEMATOLOGICAL/ONCOLOGICAL Hx Blood Disorders: No - INTEGUMENTARY Hx Dermatological Problems: No - MUSCULOSKELETAL/RHEUMATOLOGICAL Hx Falls: No - GASTROINTESTINAL Hx Gastrointestinal Disorders: Yes Hx Gastroesophageal Reflux: Yes - GENITOURINARY/GYNECOLOGICAL Hx Genitourinary Disorders: No - PSYCHIATRIC Hx Substance Use: No - SURGICAL HISTORY Hx Surgeries: Yes Other/Comment: left knee replacement, and left nerve repair, left and right hand nerve repair, Exp.Lap 12/22/17, - ANESTHESIA Hx Anesthesia: Yes Hx Anesthesia Reactions: No Hx Malignant Hyperthermia: No Has any member of the family had a problem w/ anesthesia?: No Meds Allergies/Adverse Reactions: Allergies Allergy/AdvReac Type Severity Reaction Status Date / Time Penicillins Allergy Mild Verified 01/26/18 15:08 - Medications Medications: Current Medications Aspirin (Ecotrin) 81 mg PO DAILY [facility] Heparin Sodium/Sodium Chloride (Heparin 71251 Units/250ml 1/2 Normal Saline) 25 ,000 units in 250 mls @ 10.614 mls/hr IV .[id number] PRN; Protocol; 18 UNITS/KG/HR PRN Reason: ADJUST RATE PER PROTOCOL Last Titration: 01/27/18 06:00 Dose: 15 units/kg/hr, 8.845 mls/hr Aztreonam 2 gm/ Sodium (Chloride) 100 mls @ 200 mls/hr IVPB Q8H [facility] PRN Reason: Protocol Last Admin: 01/27/18 05:09 Dose: 200 mls/hr Vancomycin HCl 1 gm/ Sodium (Chloride) 200 mls @ 133.333 mls/hr IVPB Q24H [facility] PRN Reason: Protocol Phenylephrine HCl 30 mg/ (Sodium Chloride) 253 mls @ 10.12 mls/hr IV .Q24H PRN ; Protocol; 20 MCG/MIN PRN Reason: TITRATE PER MD ORDER Sodium Chloride (Sodium Chloride 0.9%) 500 mls @ 999 mls/hr IV .Q31M [facility] Magnesium Sulfate/Dextrose (Magnesium Sulfate 1 Gm/100 Ml D5w) 1 gm in 100 mls @ 200 mls/hr IVPB Q30M [facility] Stop: 01/27/18 07:59 Insulin Human Regular (Novolin R) 0 unit SC ACHS [facility] PRN Reason: Protocol Last Admin: 01/26/18 22:29 Dose: Not Given Metoprolol Tartrate (Lopressor) 25 mg PO BID [facility] Multivitamins (Hexavitamin) 1 tab PO DAILY [facility] Pantoprazole Sodium (Protonix Susp) 40 mg PO DAILY [facility] Rosuvastatin Calcium (Crestor) 20 mg PO HS [facility] Last Admin: 01/26/18 22:05 Dose: 20 mg Sertraline HCl (Zoloft) 25 mg PO DAILY [facility] Sitagliptin Phosphate (Januvia) 50 mg PO DAILY [facility] Trazodone HCl (Desyrel) 25 mg PO HS [facility] Last Admin: 01/26/18 22:26 Dose: 25 mg Results - Vital Signs Recent Vital Signs: Last Vital Signs Temp 98.2 F 01/27/18 02:35 Pulse 132 H 01/27/18 04:33 Resp 20 01/27/18 02:35 BP 89/57 L 01/27/18 04:55 Pulse Ox 97 01/27/18 02:35 - Labs Result Diagrams: 01/27/18 03:25 01/27/18 03:11 Labs: Laboratory Results - last 24 hr 01/26/18 01/26/18 01/26/18 16:27 16:27 16:27 WBC 12.9 H D RBC 3.50 L Hgb 10.4 L Hct 32.1 L MCV 91.7 MCH 29.6 MCHC 32.3 L RDW 14.3 Plt Count 248 MPV 9.9 Neut % (Auto) 79.8 H Lymph % (Auto) 14.0 L Fisher % (Auto) 5.1 Eos % (Auto) 0.4 Baso % (Auto) 0.7 Neut # (Auto) 10.3 H Lymph # (Auto) 1.8 Fisher # (Auto) 0.7 Eos # (Auto) 0.0 Baso # (Auto) 0.1 PT 11.6 INR 1.1 APTT 27 pO2 VBG pH VBG pCO2 VBG HCO3 VBG Total CO2 VBG O2 Sat (Calc) VBG Base Excess VBG Potassium Glucose Lactate Crit Value Called To Crit Value Called By Crit Value Read Back Blood Gas Notified Time Sodium 142 Potassium 4.2 Chloride 100 Carbon Dioxide 33 H Anion Gap 13 BUN 31 H Creatinine 0.9 Est GFR ( Amer) > 60 Est GFR (Non-Af Amer) > 60 Random Glucose 173 H Lactic Acid Calcium 11.0 H Phosphorus Magnesium Total Bilirubin 0.5 AST 86 H D ALT 138 H Alkaline Phosphatase 174 H Total Protein 7.2 Albumin 3.2 L D Globulin 4.1 H Albumin/Globulin Ratio 0.8 L Lipase 297 Venous Blood Potassium Urine Color Urine Clarity Urine pH Ur Specific [place] Urine Protein Urine Glucose (UA) Urine Ketones Urine Blood Urine Nitrate Urine Bilirubin Urine Urobilinogen Ur Leukocyte Esterase Urine WBC (Auto) Urine RBC (Auto) Urine Bacteria Blood Type Antibody Screen 01/26/18 01/26/18 01/27/18 16:39 17:31 03:11 WBC RBC Hgb Hct MCV MCH MCHC RDW Plt Count MPV Neut % (Auto) Lymph % (Auto) Fisher % (Auto) Eos % (Auto) Baso % (Auto) Neut # (Auto) Lymph # (Auto) Fisher # (Auto) Eos # (Auto) Baso # (Auto) PT 15.5 H INR 1.4 APTT 104 H* D pO2 VBG pH VBG pCO2 VBG HCO3 VBG Total CO2 VBG O2 Sat (Calc) VBG Base Excess VBG Potassium Glucose Lactate Crit Value Called To Crit Value Called By Crit Value Read Back Blood Gas Notified Time Sodium Potassium Chloride Carbon Dioxide Anion Gap BUN Creatinine Est GFR ( Amer) Est GFR (Non-Af Amer) Random Glucose Lactic Acid 1.8 Calcium Phosphorus Magnesium Total Bilirubin AST ALT Alkaline Phosphatase Total Protein Albumin Globulin Albumin/Globulin Ratio Lipase Venous Blood Potassium Urine Color Yellow Urine Clarity Clear Urine pH 6.0 Ur Specific [place] 1.023 Urine Protein 1+ H Urine Glucose (UA) 3+ H Urine Ketones Negative Urine Blood Negative Urine Nitrate Negative Urine Bilirubin Negative Urine Urobilinogen Normal Ur Leukocyte Esterase Neg Urine WBC (Auto) < 1 Urine RBC (Auto) < 1 Urine Bacteria Occ H Blood Type Antibody Screen 01/27/18 01/27/18 01/27/18 03:11 03:25 04:00 WBC 16.4 H RBC 2.75 L Hgb 8.4 L D Hct 25.6 L MCV 92.8 MCH 30.4 MCHC 32.7 L RDW 14.9 H Plt Count 223 MPV 9.7 Neut % (Auto) 78.9 H Lymph % (Auto) 14.7 L Fisher % (Auto) 5.9 Eos % (Auto) 0.1 Baso % (Auto) 0.4 Neut # (Auto) 12.9 H Lymph # (Auto) 2.4 Fisher # (Auto) 1.0 H Eos # (Auto) 0.0 Baso # (Auto) 0.1 PT INR APTT pO2 22 L VBG pH 7.37 VBG pCO2 40 VBG HCO3 21.7 VBG Total CO2 24.3 VBG O2 Sat (Calc) 40.6 VBG Base Excess -2.0 L VBG Potassium 3.5 L Glucose 273 H Lactate 3.1 H Crit Value Called To Anjana Bat rn Crit Value Called By Paulina worley rt Crit Value Read Back Y Blood Gas Notified Time 420 Sodium 144 148.0 Potassium 5.0 Chloride 102 118.0 H Carbon Dioxide 29 Anion Gap 18 BUN 37 H Creatinine 1.2 Est GFR ( Amer) > 60 Est GFR (Non-Af Amer) 59 Random Glucose 360 H Lactic Acid Calcium 9.6 Phosphorus 2.8 Magnesium 1.3 L Total Bilirubin 0.4 AST 45 ALT 92 H D Alkaline Phosphatase 118 Total Protein 5.5 L Albumin 2.4 L D Globulin 3.0 Albumin/Globulin Ratio 0.8 L Lipase Venous Blood Potassium 3.5 L Urine Color Urine Clarity Urine pH Ur Specific [place] Urine Protein Urine Glucose (UA) Urine Ketones Urine Blood Urine Nitrate Urine Bilirubin Urine Urobilinogen Ur Leukocyte Esterase Urine WBC (Auto) Urine RBC (Auto) Urine Bacteria Blood Type Antibody Screen 01/27/18 05:17 WBC RBC Hgb Hct MCV MCH MCHC RDW Plt Count MPV Neut % (Auto) Lymph % (Auto) Fisher % (Auto) Eos % (Auto) Baso % (Auto) Neut # (Auto) Lymph # (Auto) Fisher # (Auto) Eos # (Auto) Baso # (Auto) PT INR APTT pO2 VBG pH VBG pCO2 VBG HCO3 VBG Total CO2 VBG O2 Sat (Calc) VBG Base Excess VBG Potassium Glucose Lactate Crit Value Called To Crit Value Called By Crit Value Read Back Blood Gas Notified Time Sodium Potassium Chloride Carbon Dioxide Anion Gap BUN Creatinine Est GFR ( Amer) Est GFR (Non-Af Amer) Random Glucose Lactic Acid Calcium Phosphorus Magnesium Total Bilirubin AST ALT Alkaline Phosphatase Total Protein Albumin Globulin Albumin/Globulin Ratio Lipase Venous Blood Potassium Urine Color Urine Clarity Urine pH Ur Specific [place] Urine Protein Urine Glucose (UA) Urine Ketones Urine Blood Urine Nitrate Urine Bilirubin Urine Urobilinogen Ur Leukocyte Esterase Urine WBC (Auto) Urine RBC (Auto) Urine Bacteria Blood Type O POSITIVE Antibody Screen Negative
[2018-01-27 07:04] LABS: ABG ALLEN TEST POS; ARTERIAL BLOOD GAS HCO3 25.3 mmol/L (21-28); ARTERIAL BLOOD GAS O2 SAT 99.1 % (95-98); ARTERIAL BLOOD GAS PCO2 30 mm/Hg (35-45); ARTERIAL BLOOD GAS PH 7.49 (7.35-7.45); ARTERIAL BLOOD GAS PO2 99 mm/Hg (80-100); ARTERIAL BLOOD GAS TCO2 23.8 mmol/L (22-28)
[2018-01-27] MEDS: Vancomycin 1 GM in Sodium Chloride 0.9% 200 ML IVPB SCH (07:26)
[2018-01-27] MEDS: Magnesium Sulfate 1 gm in D5W 1 GM/100 ML BAG IVPB SCH ×2 (08:38→09:31)
[2018-01-27] MEDS: (Novolin R) Insulin Human Regular 100 units/ml vial SC SCH (08:38)
[2018-01-27] MEDS: (Novolog) Insulin Aspart, Recombinant 100 u/ml 10 ml vial SC SCH ×2 (08:42→11:48)
[2018-01-27] MEDS ORDERED: Lactated Ringer's 1,000 ML IV ONE ×2 (08:45→13:00)
--- NOTE | 2018-01-27 08:54 | RAD ---
Chest x-ray single frontal view History: Pneumonia. Comparison: 01/09/2018 Findings: Patient rotated limiting evaluation. Bibasilar airspace consolidative changes suggestive for infiltrate and or atelectasis; right greater than left. Right hilar prominence/consolidation. Small bilateral pleural effusions. Enlarged ectatic aorta. Cardiomegaly. Degenerative changes in the spine and shoulders. Biapical pleural thickening with upper lobe granulomatous changes. Impression: Patient rotated limiting evaluation. Bibasilar airspace consolidative changes suggestive for infiltrate and or atelectasis; right greater than left. Right hilar prominence/consolidation. Small bilateral pleural effusions. Enlarged ectatic aorta. Cardiomegaly. Degenerative changes in the spine and shoulders. Biapical pleural thickening with upper lobe granulomatous changes.
[2018-01-27] MEDS ORDERED: Magnesium Sulfate 1 gm in D5W 1 GM/100 ML BAG IVPB SCH (09:00)
[2018-01-27] MEDS ORDERED: Digoxin 500 mcg/2ml (0.5 mg/2ml) Inj IVP ONE (09:00)
[2018-01-27] MEDS: Multiple Vitamins Tab PO SCH (09:36)
[2018-01-27] MEDS ORDERED: Pantoprazole 40 mg Susp UD PO SCH (10:00)
--- NOTE | 2018-01-27 10:32 | CP.PCM.CON ---
Past Patient History - Infectious Disease Hx of Infectious Diseases: None - Past Medical History & Family History Past Medical History?: Yes - Past Social History Smoking Status: Former Smoker - CARDIAC Hx Hypercholesterolemia: Yes Hx Hypertension: Yes - PULMONARY Hx Respiratory Disorders: No - NEUROLOGICAL Hx Neurological Disorder: Yes Hx Syncope: Yes - HEENT Hx HEENT Problems: No - RENAL Hx Chronic Kidney Disease: No - ENDOCRINE/METABOLIC Hx Diabetes Mellitus Type 2: Yes - HEMATOLOGICAL/ONCOLOGICAL Hx Blood Disorders: No - INTEGUMENTARY Hx Dermatological Problems: No - MUSCULOSKELETAL/RHEUMATOLOGICAL Hx Falls: No - GASTROINTESTINAL Hx Gastrointestinal Disorders: Yes Hx Gastroesophageal Reflux: Yes - GENITOURINARY/GYNECOLOGICAL Hx Genitourinary Disorders: No - PSYCHIATRIC Hx Substance Use: No - SURGICAL HISTORY Hx Surgeries: Yes Other/Comment: left knee replacement, and left nerve repair, left and right hand nerve repair, Exp.Lap 12/22/17, - ANESTHESIA Hx Anesthesia: Yes Hx Anesthesia Reactions: No Hx Malignant Hyperthermia: No Has any member of the family had a problem w/ anesthesia?: No Meds Allergies/Adverse Reactions: Allergies Allergy/AdvReac Type Severity Reaction Status Date / Time Penicillins Allergy Mild Verified 01/26/18 15:08 - Medications Medications: Current Medications Aspirin (Ecotrin) 81 mg PO DAILY [facility] Aztreonam 2 gm/ Sodium (Chloride) 100 mls @ 200 mls/hr IVPB Q8H [facility] PRN Reason: Protocol Last Admin: 01/27/18 05:09 Dose: 200 mls/hr Vancomycin HCl 1 gm/ Sodium (Chloride) 200 mls @ 133.333 mls/hr IVPB Q24H [facility] PRN Reason: Protocol Last Admin: 01/27/18 07:26 Dose: 133.333 mls/hr Phenylephrine HCl 30 mg/ (Sodium Chloride) 253 mls @ 10.12 mls/hr IV .Q24H PRN ; Protocol; 20 MCG/MIN PRN Reason: TITRATE PER MD ORDER Metronidazole (Flagyl) 500 mg in 100 mls @ 100 mls/hr IVPB Q8 [facility] PRN Reason: Protocol Insulin Aspart (Novolog) 0 unit SC Q4H [facility] PRN Reason: Protocol Last Admin: 01/27/18 08:42 Dose: Not Given Multivitamins (Hexavitamin) 1 tab PO DAILY [facility] Last Admin: 01/27/18 09:36 Dose: Not Given Pantoprazole Sodium (Protonix Inj) 40 mg IVP DAILY [facility] Last Admin: 01/27/18 09:31 Dose: Not Given Rosuvastatin Calcium (Crestor) 20 mg PO HS [facility] Last Admin: 01/26/18 22:05 Dose: 20 mg Results - Vital Signs Recent Vital Signs: Last Vital Signs Temp 98.4 F 01/27/18 07:43 Pulse 139 H 01/27/18 07:43 Resp 25 H 01/27/18 07:43 BP 95/59 L 01/27/18 07:43 Pulse Ox 100 01/27/18 06:00 - Labs Result Diagrams: 01/27/18 03:25 01/27/18 03:11 Labs: Laboratory Results - last 24 hr 01/26/18 01/26/18 01/26/18 16:27 16:27 16:27 WBC 12.9 H D RBC 3.50 L Hgb 10.4 L Hct 32.1 L MCV 91.7 MCH 29.6 MCHC 32.3 L RDW 14.3 Plt Count 248 MPV 9.9 Neut % (Auto) 79.8 H Lymph % (Auto) 14.0 L [place] % (Auto) 5.1 Eos % (Auto) 0.4 Baso % (Auto) 0.7 Neut # (Auto) 10.3 H Lymph # (Auto) 1.8 [place] # (Auto) 0.7 Eos # (Auto) 0.0 Baso # (Auto) 0.1 PT 11.6 INR 1.1 APTT 27 Puncture Site pCO2 pO2 HCO3 ABG pH ABG Total CO2 ABG O2 Saturation ABG Base Excess Eyal Test ABG Potassium VBG pH VBG pCO2 VBG HCO3 VBG Total CO2 VBG O2 Sat (Calc) VBG Base Excess VBG Potassium Glucose Lactate Liter Flow Crit Value Called To Crit Value Called By Crit Value Read Back Blood Gas Notified Time Sodium 142 Potassium 4.2 Chloride 100 Carbon Dioxide 33 H Anion Gap 13 BUN 31 H Creatinine 0.9 Est GFR ( Amer) > 60 Est GFR (Non-Af Amer) > 60 Random Glucose 173 H Lactic Acid Calcium 11.0 H Phosphorus Magnesium Total Bilirubin 0.5 AST 86 H D ALT 138 H Alkaline Phosphatase 174 H Troponin I Total Protein 7.2 Albumin 3.2 L D Globulin 4.1 H Albumin/Globulin Ratio 0.8 L Lipase 297 Arterial Blood Potassium Venous Blood Potassium Urine Color Urine Clarity Urine pH Ur Specific [place] Urine Protein Urine Glucose (UA) Urine Ketones Urine Blood Urine Nitrate Urine Bilirubin Urine Urobilinogen Ur Leukocyte Esterase Urine WBC (Auto) Urine RBC (Auto) Urine Bacteria Stool Occult Blood Blood Type Antibody Screen 01/26/18 01/26/18 01/27/18 16:39 17:31 03:11 WBC RBC Hgb Hct MCV MCH MCHC RDW Plt Count MPV Neut % (Auto) Lymph % (Auto) [place] % (Auto) Eos % (Auto) Baso % (Auto) Neut # (Auto) Lymph # (Auto) [place] # (Auto) Eos # (Auto) Baso # (Auto) PT 15.5 H INR 1.4 APTT 104 H* D Puncture Site pCO2 pO2 HCO3 ABG pH ABG Total CO2 ABG O2 Saturation ABG Base Excess Eyal Test ABG Potassium VBG pH VBG pCO2 VBG HCO3 VBG Total CO2 VBG O2 Sat (Calc) VBG Base Excess VBG Potassium Glucose Lactate Liter Flow Crit Value Called To Crit Value Called By Crit Value Read Back Blood Gas Notified Time Sodium Potassium Chloride Carbon Dioxide Anion Gap BUN Creatinine Est GFR ( Amer) Est GFR (Non-Af Amer) Random Glucose Lactic Acid 1.8 Calcium Phosphorus Magnesium Total Bilirubin AST ALT Alkaline Phosphatase Troponin I Total Protein Albumin Globulin Albumin/Globulin Ratio Lipase Arterial Blood Potassium Venous Blood Potassium Urine Color Yellow Urine Clarity Clear Urine pH 6.0 Ur Specific [place] 1.023 Urine Protein 1+ H Urine Glucose (UA) 3+ H Urine Ketones Negative Urine Blood Negative Urine Nitrate Negative Urine Bilirubin Negative Urine Urobilinogen Normal Ur Leukocyte Esterase Neg Urine WBC (Auto) < 1 Urine RBC (Auto) < 1 Urine Bacteria Occ H Stool Occult Blood Blood Type Antibody Screen 01/27/18 01/27/18 01/27/18 03:11 03:25 04:00 WBC 16.4 H RBC 2.75 L Hgb 8.4 L D Hct 25.6 L MCV 92.8 MCH 30.4 MCHC 32.7 L RDW 14.9 H Plt Count 223 MPV 9.7 Neut % (Auto) 78.9 H Lymph % (Auto) 14.7 L [place] % (Auto) 5.9 Eos % (Auto) 0.1 Baso % (Auto) 0.4 Neut # (Auto) 12.9 H Lymph # (Auto) 2.4 [place] # (Auto) 1.0 H Eos # (Auto) 0.0 Baso # (Auto) 0.1 PT INR APTT Puncture Site pCO2 pO2 22 L HCO3 ABG pH ABG Total CO2 ABG O2 Saturation ABG Base Excess Eyal Test ABG Potassium VBG pH 7.37 VBG pCO2 40 VBG HCO3 21.7 VBG Total CO2 24.3 VBG O2 Sat (Calc) 40.6 VBG Base Excess -2.0 L VBG Potassium 3.5 L Glucose 273 H Lactate 3.1 H Liter Flow Crit Value Called To Anjana Bat rn Crit Value Called By Paulina worley rt Crit Value Read Back Y Blood Gas Notified Time 420 Sodium 144 148.0 Potassium 5.0 Chloride 102 118.0 H Carbon Dioxide 29 Anion Gap 18 BUN 37 H Creatinine 1.2 Est GFR ( Amer) > 60 Est GFR (Non-Af Amer) 59 Random Glucose 360 H Lactic Acid Calcium 9.6 Phosphorus 2.8 Magnesium 1.3 L Total Bilirubin 0.4 AST 45 ALT 92 H D Alkaline Phosphatase 118 Troponin I 0.1310 H* Total Protein 5.5 L Albumin 2.4 L D Globulin 3.0 Albumin/Globulin Ratio 0.8 L Lipase Arterial Blood Potassium Venous Blood Potassium 3.5 L Urine Color Urine Clarity Urine pH Ur Specific [place] Urine Protein Urine Glucose (UA) Urine Ketones Urine Blood Urine Nitrate Urine Bilirubin Urine Urobilinogen Ur Leukocyte Esterase Urine WBC (Auto) Urine RBC (Auto) Urine Bacteria Stool Occult Blood Blood Type Antibody Screen 01/27/18 01/27/18 01/27/18 05:17 06:55 07:55 WBC RBC Hgb Hct MCV MCH MCHC RDW Plt Count MPV Neut % (Auto) Lymph % (Auto) [place] % (Auto) Eos % (Auto) Baso % (Auto) Neut # (Auto) Lymph # (Auto) [place] # (Auto) Eos # (Auto) Baso # (Auto) PT INR APTT Puncture Site Rr pCO2 30 L pO2 99 HCO3 25.3 ABG pH 7.49 H ABG Total CO2 23.8 ABG O2 Saturation 99.1 H ABG Base Excess 0.4 Eyal Test Pos ABG Potassium 5.2 VBG pH VBG pCO2 VBG HCO3 VBG Total CO2 VBG O2 Sat (Calc) VBG Base Excess VBG Potassium Glucose 388 H Lactate 6.6 H* Liter Flow 2.0 Crit Value Called To Dr. chua Crit Value Called By Simon blower feeder dyed raw stock Crit Value Read Back Y Blood Gas Notified Time 703 Sodium 142.0 Potassium Chloride 107.0 Carbon Dioxide Anion Gap BUN Creatinine Est GFR ( Amer) Est GFR (Non-Af Amer) Random Glucose Lactic Acid Calcium Phosphorus Magnesium Total Bilirubin AST ALT Alkaline Phosphatase Troponin I Total Protein Albumin Globulin Albumin/Globulin Ratio Lipase Arterial Blood Potassium 5.2 Venous Blood Potassium Urine Color Urine Clarity Urine pH Ur Specific [place] Urine Protein Urine Glucose (UA) Urine Ketones Urine Blood Urine Nitrate Urine Bilirubin Urine Urobilinogen Ur Leukocyte Esterase Urine WBC (Auto) Urine RBC (Auto) Urine Bacteria Stool Occult Blood Negative Blood Type O POSITIVE Antibody Screen Negative Assessment & Plan - Assessment and Plan (Free Text) Assessment: findings noted PE on ct done to evaluate abdominal pain( filled with stool) plan enemas. hydration full anticoagulation eventually needs venous duplex scan
[2018-01-27 12:09] LABS: HEMOGLOBIN 7.4 g/dL (12.0-18.0); MEAN CELL VOLUME 93.6 fL (80.0-94.0); MEAN CORPUSCULAR HEMOGLOBIN 30.3 pg (27.0-31.0); MEAN CORPUSCULAR HGB CONC 32.4 g/dL (33.0-37.0); MEAN PLATELET VOLUME 9.6 fL (7.2-11.7); RBC 2.44 Mil/uL (4.40-5.90); RED CELL DISTRIBUTION WIDTH 14.3 % (11.5-14.5); WHITE BLOOD COUNT 13.5 K/uL (4.8-10.8)
--- NOTE | 2018-01-27 12:20 | PCM.PROC ---
Procedures Attestation:: I certify that I have explained the specified Operation(s) or Procedure(s), risks, benefits and reasonable alternatives to the Patient and/or other person responsible. The opportunity was given to ask questions and all questions answered - Central Line Placement Left Femoral Triple Lumen Catheter Aseptic technique was employed throughout the procedure: Full sterile barriers ( mask, hair cover, sterile gown, sterile gloves), Full body sterile drape, Chloraprep Antiseptic: 30 second prep for IJ or SC sites, Chloraprep Antiseptic : 2 minute prep for Femoral CVP Time Out Performed: Yes Pt. Placed on Pulse Ox Monitor: Yes Central Line Prep: Chlorhexidine-Alcohol Combination Local Anesthesia Used: Lidocaine 1% Amount of Anesthesia Used (mls): 5 Ultrasound Used for Placement: No Central Line Lumen Inserted: triple Central Line Length: 20 cm Post Procedure: Sutured in Place, Good Blood Return, All Ports Aspirated, Flushed, Capped, Sterile Dressing Applied Secured by: Suture Post procedure dressing: Clear vapor permeable, Chlorhexidine disc (Biopatch) Post Procedure X-Ray: No Patient Tolerated Procedure: Well (NO Ultra sound available)
--- NOTE | 2018-01-27 12:26 | CP.PCM.CON ---
History of Present Illness - History of Present Illness History of Present Illness: Reason for consultatio: pulmonary embolism 77yo M. PMHx HTN, HLD, DM, GERD. perforated duodenal ulcer with peritoneal contamination, s/p Colin Patch Repair with Ex-Laparotomy on 12/22/17 and washout , status post cardiac catheter with triple-vessel disease was transferred from halfway for abdominal pain. Patient transferred to ICU for hypotension, tachycardia and CAT scan of the abdomen showed subsegmental pulmonary embolism. patient ALSO FOUND TO HAVE ELEATED LACTATE LEVEL Past Patient History - Infectious Disease Hx of Infectious Diseases: None - Past Medical History & Family History Past Medical History?: Yes - Past Social History Smoking Status: Former Smoker - CARDIAC Hx Hypercholesterolemia: Yes Hx Hypertension: Yes - PULMONARY Hx Respiratory Disorders: No - NEUROLOGICAL Hx Neurological Disorder: Yes Hx Syncope: Yes - HEENT Hx HEENT Problems: No - RENAL Hx Chronic Kidney Disease: No - ENDOCRINE/METABOLIC Hx Diabetes Mellitus Type 2: Yes - HEMATOLOGICAL/ONCOLOGICAL Hx Blood Disorders: No - INTEGUMENTARY Hx Dermatological Problems: No - MUSCULOSKELETAL/RHEUMATOLOGICAL Hx Falls: No - GASTROINTESTINAL Hx Gastrointestinal Disorders: Yes Hx Gastroesophageal Reflux: Yes - GENITOURINARY/GYNECOLOGICAL Hx Genitourinary Disorders: No - PSYCHIATRIC Hx Substance Use: No - SURGICAL HISTORY Hx Surgeries: Yes Other/Comment: left knee replacement, and left nerve repair, left and right hand nerve repair, Exp.Lap 12/22/17, - ANESTHESIA Hx Anesthesia: Yes Hx Anesthesia Reactions: No Hx Malignant Hyperthermia: No Has any member of the family had a problem w/ anesthesia?: No Meds Allergies/Adverse Reactions: Allergies Allergy/AdvReac Type Severity Reaction Status Date / Time Penicillins Allergy Mild Verified 01/26/18 15:08 - Medications Medications: Current Medications Aspirin (Ecotrin) 81 mg PO DAILY [facility] Last Admin: 01/27/18 11:44 Dose: Not Given Hydromorphone HCl (Dilaudid) 0.5 mg IVP Q4H PRN PRN Reason: Pain, severe (8-10) Aztreonam 2 gm/ Sodium (Chloride) 100 mls @ 200 mls/hr IVPB Q8H KAROLINE PRN Reason: Protocol Last Admin: 01/27/18 11:48 Dose: 200 mls/hr Vancomycin HCl 1 gm/ Sodium (Chloride) 200 mls @ 133.333 mls/hr IVPB Q24H KAROLINE PRN Reason: Protocol Last Admin: 01/27/18 07:26 Dose: 133.333 mls/hr Phenylephrine HCl 30 mg/ (Sodium Chloride) 253 mls @ 10.12 mls/hr IV .Q24H PRN ; Protocol; 20 MCG/MIN PRN Reason: TITRATE PER MD ORDER Metronidazole (Flagyl) 500 mg in 100 mls @ 100 mls/hr IVPB Q8 KAROLINE PRN Reason: Protocol Lactated Ringer's (Lactated Ringer's) 1,000 mls @ 1,000 mls/hr IV .Q1H ONE Stop: 01/27/18 13:20 Lactated Ringer's (Lactated Ringer's) 1,000 mls @ 100 mls/hr IV .Q10H [facility] Norepinephrine Bitartrate 4 mg (/ Sodium Chloride) 254 mls @ 15.24 mls/hr IV .[id number] PRN; Protocol; 4 MCG/MIN PRN Reason: TITRATE PER MD ORDER Insulin Human Regular 100 unit (/ Sodium Chloride) 100 mls @ 1.07 mls/hr SC .Q24H KAROLINE; 0.02 UNIT/KG/HR PRN Reason: Protocol Multivitamins (Hexavitamin) 1 tab PO DAILY [facility] Last Admin: 01/27/18 09:36 Dose: Not Given Pantoprazole Sodium (Protonix Inj) 40 mg IVP DAILY [facility] Last Admin: 01/27/18 09:31 Dose: Not Given Rosuvastatin Calcium (Crestor) 20 mg PO HS [facility] Last Admin: 01/26/18 22:05 Dose: 20 mg Results - Vital Signs Recent Vital Signs: Last Vital Signs Temp 98.4 F 01/27/18 07:43 Pulse 139 H 01/27/18 07:43 Resp 25 H 01/27/18 07:43 BP 95/59 L 01/27/18 07:43 Pulse Ox 100 01/27/18 06:00 - Labs Result Diagrams: 01/27/18 11:58 01/27/18 03:11 Labs: Laboratory Results - last 24 hr 01/26/18 01/26/18 01/26/18 16:27 16:27 16:27 WBC 12.9 H D RBC 3.50 L Hgb 10.4 L Hct 32.1 L MCV 91.7 MCH 29.6 MCHC 32.3 L RDW 14.3 Plt Count 248 MPV 9.9 Neut % (Auto) 79.8 H Lymph % (Auto) 14.0 L [place] % (Auto) 5.1 Eos % (Auto) 0.4 Baso % (Auto) 0.7 Neut # (Auto) 10.3 H Lymph # (Auto) 1.8 [place] # (Auto) 0.7 Eos # (Auto) 0.0 Baso # (Auto) 0.1 PT 11.6 INR 1.1 APTT 27 Puncture Site pCO2 pO2 HCO3 ABG pH ABG Total CO2 ABG O2 Saturation ABG Base Excess Eyal Test ABG Potassium VBG pH VBG pCO2 VBG HCO3 VBG Total CO2 VBG O2 Sat (Calc) VBG Base Excess VBG Potassium Glucose Lactate Liter Flow Crit Value Called To Crit Value Called By Crit Value Read Back Blood Gas Notified Time Sodium 142 Potassium 4.2 Chloride 100 Carbon Dioxide 33 H Anion Gap 13 BUN 31 H Creatinine 0.9 Est GFR ( Amer) > 60 Est GFR (Non-Af Amer) > 60 Random Glucose 173 H Lactic Acid Calcium 11.0 H Phosphorus Magnesium Total Bilirubin 0.5 AST 86 H D ALT 138 H Alkaline Phosphatase 174 H Troponin I Total Protein 7.2 Albumin 3.2 L D Globulin 4.1 H Albumin/Globulin Ratio 0.8 L Lipase 297 Arterial Blood Potassium Venous Blood Potassium Urine Color Urine Clarity Urine pH Ur Specific [place] Urine Protein Urine Glucose (UA) Urine Ketones Urine Blood Urine Nitrate Urine Bilirubin Urine Urobilinogen Ur Leukocyte Esterase Urine WBC (Auto) Urine RBC (Auto) Urine Bacteria Stool Occult Blood Blood Type Antibody Screen 01/26/18 01/26/18 01/27/18 16:39 17:31 03:11 WBC RBC Hgb Hct MCV MCH MCHC RDW Plt Count MPV Neut % (Auto) Lymph % (Auto) [place] % (Auto) Eos % (Auto) Baso % (Auto) Neut # (Auto) Lymph # (Auto) [place] # (Auto) Eos # (Auto) Baso # (Auto) PT 15.5 H INR 1.4 APTT 104 H* D Puncture Site pCO2 pO2 HCO3 ABG pH ABG Total CO2 ABG O2 Saturation ABG Base Excess Eyal Test ABG Potassium VBG pH VBG pCO2 VBG HCO3 VBG Total CO2 VBG O2 Sat (Calc) VBG Base Excess VBG Potassium Glucose Lactate Liter Flow Crit Value Called To Crit Value Called By Crit Value Read Back Blood Gas Notified Time Sodium Potassium Chloride Carbon Dioxide Anion Gap BUN Creatinine Est GFR ( Amer) Est GFR (Non-Af Amer) Random Glucose Lactic Acid 1.8 Calcium Phosphorus Magnesium Total Bilirubin AST ALT Alkaline Phosphatase Troponin I Total Protein Albumin Globulin Albumin/Globulin Ratio Lipase Arterial Blood Potassium Venous Blood Potassium Urine Color Yellow Urine Clarity Clear Urine pH 6.0 Ur Specific [place] 1.023 Urine Protein 1+ H Urine Glucose (UA) 3+ H Urine Ketones Negative Urine Blood Negative Urine Nitrate Negative Urine Bilirubin Negative Urine Urobilinogen Normal Ur Leukocyte Esterase Neg Urine WBC (Auto) < 1 Urine RBC (Auto) < 1 Urine Bacteria Occ H Stool Occult Blood Blood Type Antibody Screen 01/27/18 01/27/18 01/27/18 03:11 03:25 04:00 WBC 16.4 H RBC 2.75 L Hgb 8.4 L D Hct 25.6 L MCV 92.8 MCH 30.4 MCHC 32.7 L RDW 14.9 H Plt Count 223 MPV 9.7 Neut % (Auto) 78.9 H Lymph % (Auto) 14.7 L [place] % (Auto) 5.9 Eos % (Auto) 0.1 Baso % (Auto) 0.4 Neut # (Auto) 12.9 H Lymph # (Auto) 2.4 [place] # (Auto) 1.0 H Eos # (Auto) 0.0 Baso # (Auto) 0.1 PT INR APTT Puncture Site pCO2 pO2 22 L HCO3 ABG pH ABG Total CO2 ABG O2 Saturation ABG Base Excess Eyal Test ABG Potassium VBG pH 7.37 VBG pCO2 40 VBG HCO3 21.7 VBG Total CO2 24.3 VBG O2 Sat (Calc) 40.6 VBG Base Excess -2.0 L VBG Potassium 3.5 L Glucose 273 H Lactate 3.1 H Liter Flow Crit Value Called To Anjana Bat rn Crit Value Called By Paulina worley rt Crit Value Read Back Y Blood Gas Notified Time 420 Sodium 144 148.0 Potassium 5.0 Chloride 102 118.0 H Carbon Dioxide 29 Anion Gap 18 BUN 37 H Creatinine 1.2 Est GFR ( Amer) > 60 Est GFR (Non-Af Amer) 59 Random Glucose 360 H Lactic Acid Calcium 9.6 Phosphorus 2.8 Magnesium 1.3 L Total Bilirubin 0.4 AST 45 ALT 92 H D Alkaline Phosphatase 118 Troponin I 0.1310 H* Total Protein 5.5 L Albumin 2.4 L D Globulin 3.0 Albumin/Globulin Ratio 0.8 L Lipase Arterial Blood Potassium Venous Blood Potassium 3.5 L Urine Color Urine Clarity Urine pH Ur Specific [place] Urine Protein Urine Glucose (UA) Urine Ketones Urine Blood Urine Nitrate Urine Bilirubin Urine Urobilinogen Ur Leukocyte Esterase Urine WBC (Auto) Urine RBC (Auto) Urine Bacteria Stool Occult Blood Blood Type Antibody Screen 01/27/18 01/27/18 01/27/18 05:17 06:55 07:55 WBC RBC Hgb Hct MCV MCH MCHC RDW Plt Count MPV Neut % (Auto) Lymph % (Auto) [place] % (Auto) Eos % (Auto) Baso % (Auto) Neut # (Auto) Lymph # (Auto) [place] # (Auto) Eos # (Auto) Baso # (Auto) PT INR APTT Puncture Site Rr pCO2 30 L pO2 99 HCO3 25.3 ABG pH 7.49 H ABG Total CO2 23.8 ABG O2 Saturation 99.1 H ABG Base Excess 0.4 Eyal Test Pos ABG Potassium 5.2 VBG pH VBG pCO2 VBG HCO3 VBG Total CO2 VBG O2 Sat (Calc) VBG Base Excess VBG Potassium Glucose 388 H Lactate 6.6 H* Liter Flow 2.0 Crit Value Called To Dr. chua Crit Value Called By Simon analog design engineer Crit Value Read Back Y Blood Gas Notified Time 703 Sodium 142.0 Potassium Chloride 107.0 Carbon Dioxide Anion Gap BUN Creatinine Est GFR ( Amer) Est GFR (Non-Af Amer) Random Glucose Lactic Acid Calcium Phosphorus Magnesium Total Bilirubin AST ALT Alkaline Phosphatase Troponin I Total Protein Albumin Globulin Albumin/Globulin Ratio Lipase Arterial Blood Potassium 5.2 Venous Blood Potassium Urine Color Urine Clarity Urine pH Ur Specific [place] Urine Protein Urine Glucose (UA) Urine Ketones Urine Blood Urine Nitrate Urine Bilirubin Urine Urobilinogen Ur Leukocyte Esterase Urine WBC (Auto) Urine RBC (Auto) Urine Bacteria Stool Occult Blood Negative Blood Type O POSITIVE Antibody Screen Negative 01/27/18 01/27/18 01/27/18 10:56 10:56 11:58 WBC 13.5 H RBC 2.44 L Hgb 7.4 L Hct 22.8 L MCV 93.6 MCH 30.3 MCHC 32.4 L RDW 14.3 Plt Count 197 MPV 9.6 Neut % (Auto) Lymph % (Auto) [place] % (Auto) Eos % (Auto) Baso % (Auto) Neut # (Auto) Lymph # (Auto) [place] # (Auto) Eos # (Auto) Baso # (Auto) PT INR APTT Puncture Site pCO2 pO2 HCO3 ABG pH ABG Total CO2 ABG O2 Saturation ABG Base Excess Eyal Test ABG Potassium VBG pH VBG pCO2 VBG HCO3 VBG Total CO2 VBG O2 Sat (Calc) VBG Base Excess VBG Potassium Glucose Lactate Liter Flow Crit Value Called To Crit Value Called By Crit Value Read Back Blood Gas Notified Time Sodium Potassium Chloride Carbon Dioxide Anion Gap BUN Creatinine Est GFR ( Amer) Est GFR (Non-Af Amer) Random Glucose Lactic Acid 9.0 H* Calcium Phosphorus Magnesium Total Bilirubin AST ALT Alkaline Phosphatase Troponin I 0.3250 H* Total Protein Albumin Globulin Albumin/Globulin Ratio Lipase Arterial Blood Potassium Venous Blood Potassium Urine Color Urine Clarity Urine pH Ur Specific [place] Urine Protein Urine Glucose (UA) Urine Ketones Urine Blood Urine Nitrate Urine Bilirubin Urine Urobilinogen Ur Leukocyte Esterase Urine WBC (Auto) Urine RBC (Auto) Urine Bacteria Stool Occult Blood Blood Type Antibody Screen
[2018-01-27 12:29] LABS: ARTERIAL BLOOD GAS HCO3 20.6 mmol/L (21-28); ARTERIAL BLOOD GAS O2 SAT 99.3 % (95-98); ARTERIAL BLOOD GAS PCO2 29 mm/Hg (35-45); ARTERIAL BLOOD GAS PO2 98 mm/Hg (80-100); ARTERIAL BLOOD GAS TCO2 18.9 mmol/L (22-28)
[2018-01-27] MEDS: Phenylephrine 30 MG in Sodium Chloride 0.9% 250 ML IV PRN (12:35)
--- NOTE | 2018-01-27 12:37 | CP.PCM.CON ---
History of Present Illness - History of Present Illness History of Present Illness: Reason for consultatio: pulmonary embolism 77yo M. PMHx HTN, HLD, DM, GERD. perforated duodenal ulcer with peritoneal contamination, s/p Colin Patch Repair with Ex-Laparotomy on 12/22/17 and washout , status post cardiac catheter with triple-vessel disease was transferred from care home for abdominal pain. Patient transferred to ICU for hypotension, tachycardia and CAT scan of the abdomen showed subsegmental pulmonary embolism. patient also found to have elevated lactate level and started on IV antibiotic Patient remains hypotensive after fluid challenge. Echocardiogram done during last admission showed ejection fraction of 60%. Review of Systems - Review of Systems All systems: reviewed and no additional remarkable complaints except ( complaining of abdominal pain) Past Patient History - Infectious Disease Hx of Infectious Diseases: None - Past Medical History & Family History Past Medical History?: Yes - Past Social History Smoking Status: Former Smoker - CARDIAC Hx Hypercholesterolemia: Yes Hx Hypertension: Yes - PULMONARY Hx Respiratory Disorders: No - NEUROLOGICAL Hx Neurological Disorder: Yes Hx Syncope: Yes - HEENT Hx HEENT Problems: No - RENAL Hx Chronic Kidney Disease: No - ENDOCRINE/METABOLIC Hx Diabetes Mellitus Type 2: Yes - HEMATOLOGICAL/ONCOLOGICAL Hx Blood Disorders: No - INTEGUMENTARY Hx Dermatological Problems: No - MUSCULOSKELETAL/RHEUMATOLOGICAL Hx Falls: No - GASTROINTESTINAL Hx Gastrointestinal Disorders: Yes Hx Gastroesophageal Reflux: Yes - GENITOURINARY/GYNECOLOGICAL Hx Genitourinary Disorders: No - PSYCHIATRIC Hx Substance Use: No - SURGICAL HISTORY Hx Surgeries: Yes Other/Comment: left knee replacement, and left nerve repair, left and right hand nerve repair, Exp.Lap 12/22/17, - ANESTHESIA Hx Anesthesia: Yes Hx Anesthesia Reactions: No Hx Malignant Hyperthermia: No Has any member of the family had a problem w/ anesthesia?: No Meds Allergies/Adverse Reactions: Allergies Allergy/AdvReac Type Severity Reaction Status Date / Time Penicillins Allergy Mild Verified 01/26/18 15:08 - Medications Medications: Current Medications Aspirin (Ecotrin) 81 mg PO DAILY [facility] Last Admin: 01/27/18 11:44 Dose: Not Given Hydrocortisone Sodium Succinate (Solu-Cortef) 100 mg IV Q8H KAROLINE Hydromorphone HCl (Dilaudid) 0.5 mg IVP Q4H PRN PRN Reason: Pain, severe (8-10) Aztreonam 2 gm/ Sodium (Chloride) 100 mls @ 200 mls/hr IVPB Q8H KAROLINE PRN Reason: Protocol Last Admin: 01/27/18 11:48 Dose: 200 mls/hr Vancomycin HCl 1 gm/ Sodium (Chloride) 200 mls @ 133.333 mls/hr IVPB Q24H KAROLINE PRN Reason: Protocol Last Admin: 01/27/18 07:26 Dose: 133.333 mls/hr Phenylephrine HCl 30 mg/ (Sodium Chloride) 253 mls @ 10.12 mls/hr IV .Q24H PRN ; Protocol; 20 MCG/MIN PRN Reason: TITRATE PER MD ORDER Metronidazole (Flagyl) 500 mg in 100 mls @ 100 mls/hr IVPB Q8 KAROLINE PRN Reason: Protocol Lactated Ringer's (Lactated Ringer's) 1,000 mls @ 1,000 mls/hr IV .Q1H ONE Stop: 01/27/18 13:20 Lactated Ringer's (Lactated Ringer's) 1,000 mls @ 100 mls/hr IV .Q10H [facility] Norepinephrine Bitartrate 4 mg (/ Sodium Chloride) 254 mls @ 15.24 mls/hr IV .[id number] PRN; Protocol; 4 MCG/MIN PRN Reason: TITRATE PER MD ORDER Insulin Human Regular 100 unit (/ Sodium Chloride) 100 mls @ 1.07 mls/hr SC .Q24H KAROLINE; 0.02 UNIT/KG/HR PRN Reason: Protocol Multivitamins (Hexavitamin) 1 tab PO DAILY [facility] Last Admin: 01/27/18 09:36 Dose: Not Given Pantoprazole Sodium (Protonix Inj) 40 mg IVP DAILY [facility] Last Admin: 01/27/18 09:31 Dose: Not Given Rosuvastatin Calcium (Crestor) 20 mg PO HS [facility] Last Admin: 01/26/18 22:05 Dose: 20 mg Physical Exam - Head Exam Head Exam: ATRAUMATIC, NORMOCEPHALIC - ENT Exam ENT Exam: Mucous Membranes Moist - Neck Exam Neck exam: Positive for: Normal Inspection - Respiratory Exam Respiratory Exam: Clear to Auscultation Bilateral - Cardiovascular Exam Cardiovascular Exam: REGULAR RHYTHM - GI/Abdominal Exam GI & Abdominal Exam: Normal Bowel Sounds, Soft - Extremities Exam Extremities exam: Positive for: normal inspection - Neurological Exam Neurological exam: Alert Results - Vital Signs Recent Vital Signs: Last Vital Signs Temp 98.4 F 01/27/18 07:43 Pulse 139 H 01/27/18 07:43 Resp 25 H 01/27/18 07:43 BP 95/59 L 01/27/18 07:43 Pulse Ox 100 01/27/18 06:00 - Labs Result Diagrams: 01/28/18 07:09 01/28/18 07:09 Labs: Laboratory Results - last 24 hr 01/26/18 01/26/18 01/26/18 16:27 16:27 16:27 WBC 12.9 H D RBC 3.50 L Hgb 10.4 L Hct 32.1 L MCV 91.7 MCH 29.6 MCHC 32.3 L RDW 14.3 Plt Count 248 MPV 9.9 Neut % (Auto) 79.8 H Lymph % (Auto) 14.0 L [place] % (Auto) 5.1 Eos % (Auto) 0.4 Baso % (Auto) 0.7 Neut # (Auto) 10.3 H Lymph # (Auto) 1.8 [place] # (Auto) 0.7 Eos # (Auto) 0.0 Baso # (Auto) 0.1 PT 11.6 INR 1.1 APTT 27 Puncture Site pCO2 pO2 HCO3 ABG pH ABG Total CO2 ABG O2 Saturation ABG Base Excess Eyal Test ABG Potassium VBG pH VBG pCO2 VBG HCO3 VBG Total CO2 VBG O2 Sat (Calc) VBG Base Excess VBG Potassium A-a O2 Difference Respiratory Index Glucose Lactate Liter Flow FiO2 Crit Value Called To Crit Value Called By Crit Value Read Back Blood Gas Notified Time Sodium 142 Potassium 4.2 Chloride 100 Carbon Dioxide 33 H Anion Gap 13 BUN 31 H Creatinine 0.9 Est GFR ( Amer) > 60 Est GFR (Non-Af Amer) > 60 Random Glucose 173 H Lactic Acid Calcium 11.0 H Phosphorus Magnesium Total Bilirubin 0.5 AST 86 H D ALT 138 H Alkaline Phosphatase 174 H Troponin I Total Protein 7.2 Albumin 3.2 L D Globulin 4.1 H Albumin/Globulin Ratio 0.8 L Lipase 297 Arterial Blood Potassium Venous Blood Potassium Urine Color Urine Clarity Urine pH Ur Specific [place] Urine Protein Urine Glucose (UA) Urine Ketones Urine Blood Urine Nitrate Urine Bilirubin Urine Urobilinogen Ur Leukocyte Esterase Urine WBC (Auto) Urine RBC (Auto) Urine Bacteria Stool Occult Blood Blood Type Antibody Screen 01/26/18 01/26/18 01/27/18 16:39 17:31 03:11 WBC RBC Hgb Hct MCV MCH MCHC RDW Plt Count MPV Neut % (Auto) Lymph % (Auto) [place] % (Auto) Eos % (Auto) Baso % (Auto) Neut # (Auto) Lymph # (Auto) [place] # (Auto) Eos # (Auto) Baso # (Auto) PT 15.5 H INR 1.4 APTT 104 H* D Puncture Site pCO2 pO2 HCO3 ABG pH ABG Total CO2 ABG O2 Saturation ABG Base Excess Eyal Test ABG Potassium VBG pH VBG pCO2 VBG HCO3 VBG Total CO2 VBG O2 Sat (Calc) VBG Base Excess VBG Potassium A-a O2 Difference Respiratory Index Glucose Lactate Liter Flow FiO2 Crit Value Called To Crit Value Called By Crit Value Read Back Blood Gas Notified Time Sodium Potassium Chloride Carbon Dioxide Anion Gap BUN Creatinine Est GFR ( Amer) Est GFR (Non-Af Amer) Random Glucose Lactic Acid 1.8 Calcium Phosphorus Magnesium Total Bilirubin AST ALT Alkaline Phosphatase Troponin I Total Protein Albumin Globulin Albumin/Globulin Ratio Lipase Arterial Blood Potassium Venous Blood Potassium Urine Color Yellow Urine Clarity Clear Urine pH 6.0 Ur Specific [place] 1.023 Urine Protein 1+ H Urine Glucose (UA) 3+ H Urine Ketones Negative Urine Blood Negative Urine Nitrate Negative Urine Bilirubin Negative Urine Urobilinogen Normal Ur Leukocyte Esterase Neg Urine WBC (Auto) < 1 Urine RBC (Auto) < 1 Urine Bacteria Occ H Stool Occult Blood Blood Type Antibody Screen 01/27/18 01/27/18 01/27/18 03:11 03:25 04:00 WBC 16.4 H RBC 2.75 L Hgb 8.4 L D Hct 25.6 L MCV 92.8 MCH 30.4 MCHC 32.7 L RDW 14.9 H Plt Count 223 MPV 9.7 Neut % (Auto) 78.9 H Lymph % (Auto) 14.7 L [place] % (Auto) 5.9 Eos % (Auto) 0.1 Baso % (Auto) 0.4 Neut # (Auto) 12.9 H Lymph # (Auto) 2.4 [place] # (Auto) 1.0 H Eos # (Auto) 0.0 Baso # (Auto) 0.1 PT INR APTT Puncture Site pCO2 pO2 22 L HCO3 ABG pH ABG Total CO2 ABG O2 Saturation ABG Base Excess Eyal Test ABG Potassium VBG pH 7.37 VBG pCO2 40 VBG HCO3 21.7 VBG Total CO2 24.3 VBG O2 Sat (Calc) 40.6 VBG Base Excess -2.0 L VBG Potassium 3.5 L A-a O2 Difference Respiratory Index Glucose 273 H Lactate 3.1 H Liter Flow FiO2 Crit Value Called To Anjana Bat rn Crit Value Called By Paulina worley rt Crit Value Read Back Y Blood Gas Notified Time 420 Sodium 144 148.0 Potassium 5.0 Chloride 102 118.0 H Carbon Dioxide 29 Anion Gap 18 BUN 37 H Creatinine 1.2 Est GFR ( Amer) > 60 Est GFR (Non-Af Amer) 59 Random Glucose 360 H Lactic Acid Calcium 9.6 Phosphorus 2.8 Magnesium 1.3 L Total Bilirubin 0.4 AST 45 ALT 92 H D Alkaline Phosphatase 118 Troponin I 0.1310 H* Total Protein 5.5 L Albumin 2.4 L D Globulin 3.0 Albumin/Globulin Ratio 0.8 L Lipase Arterial Blood Potassium Venous Blood Potassium 3.5 L Urine Color Urine Clarity Urine pH Ur Specific [place] Urine Protein Urine Glucose (UA) Urine Ketones Urine Blood Urine Nitrate Urine Bilirubin Urine Urobilinogen Ur Leukocyte Esterase Urine WBC (Auto) Urine RBC (Auto) Urine Bacteria Stool Occult Blood Blood Type Antibody Screen 01/27/18 01/27/18 01/27/18 05:17 06:55 07:55 WBC RBC Hgb Hct MCV MCH MCHC RDW Plt Count MPV Neut % (Auto) Lymph % (Auto) [place] % (Auto) Eos % (Auto) Baso % (Auto) Neut # (Auto) Lymph # (Auto) [place] # (Auto) Eos # (Auto) Baso # (Auto) PT INR APTT Puncture Site Rr pCO2 30 L pO2 99 HCO3 25.3 ABG pH 7.49 H ABG Total CO2 23.8 ABG O2 Saturation 99.1 H ABG Base Excess 0.4 Eyal Test Pos ABG Potassium 5.2 VBG pH VBG pCO2 VBG HCO3 VBG Total CO2 VBG O2 Sat (Calc) VBG Base Excess VBG Potassium A-a O2 Difference Respiratory Index Glucose 388 H Lactate 6.6 H* Liter Flow 2.0 FiO2 Crit Value Called To Dr. harshil Crit Value Called By Simon cream separator operator Crit Value Read Back Y Blood Gas Notified Time 703 Sodium 142.0 Potassium Chloride 107.0 Carbon Dioxide Anion Gap BUN Creatinine Est GFR ( Amer) Est GFR (Non-Af Amer) Random Glucose Lactic Acid Calcium Phosphorus Magnesium Total Bilirubin AST ALT Alkaline Phosphatase Troponin I Total Protein Albumin Globulin Albumin/Globulin Ratio Lipase Arterial Blood Potassium 5.2 Venous Blood Potassium Urine Color Urine Clarity Urine pH Ur Specific [place] Urine Protein Urine Glucose (UA) Urine Ketones Urine Blood Urine Nitrate Urine Bilirubin Urine Urobilinogen Ur Leukocyte Esterase Urine WBC (Auto) Urine RBC (Auto) Urine Bacteria Stool Occult Blood Negative Blood Type O POSITIVE Antibody Screen Negative 01/27/18 01/27/18 01/27/18 10:56 10:56 11:58 WBC 13.5 H RBC 2.44 L Hgb 7.4 L Hct 22.8 L MCV 93.6 MCH 30.3 MCHC 32.4 L RDW 14.3 Plt Count 197 MPV 9.6 Neut % (Auto) Lymph % (Auto) [place] % (Auto) Eos % (Auto) Baso % (Auto) Neut # (Auto) Lymph # (Auto) [place] # (Auto) Eos # (Auto) Baso # (Auto) PT INR APTT Puncture Site pCO2 pO2 HCO3 ABG pH ABG Total CO2 ABG O2 Saturation ABG Base Excess Eyal Test ABG Potassium VBG pH VBG pCO2 VBG HCO3 VBG Total CO2 VBG O2 Sat (Calc) VBG Base Excess VBG Potassium A-a O2 Difference Respiratory Index Glucose Lactate Liter Flow FiO2 Crit Value Called To Crit Value Called By Crit Value Read Back Blood Gas Notified Time Sodium Potassium Chloride Carbon Dioxide Anion Gap BUN Creatinine Est GFR ( Amer) Est GFR (Non-Af Amer) Random Glucose Lactic Acid 9.0 H* Calcium Phosphorus Magnesium Total Bilirubin AST ALT Alkaline Phosphatase Troponin I 0.3250 H* Total Protein Albumin Globulin Albumin/Globulin Ratio Lipase Arterial Blood Potassium Venous Blood Potassium Urine Color Urine Clarity Urine pH Ur Specific [place] Urine Protein Urine Glucose (UA) Urine Ketones Urine Blood Urine Nitrate Urine Bilirubin Urine Urobilinogen Ur Leukocyte Esterase Urine WBC (Auto) Urine RBC (Auto) Urine Bacteria Stool Occult Blood Blood Type Antibody Screen 01/27/18 12:24 WBC RBC Hgb Hct MCV MCH MCHC RDW Plt Count MPV Neut % (Auto) Lymph % (Auto) [place] % (Auto) Eos % (Auto) Baso % (Auto) Neut # (Auto) Lymph # (Auto) [place] # (Auto) Eos # (Auto) Baso # (Auto) PT INR APTT Puncture Site Rb pCO2 29 L pO2 98 HCO3 20.6 L ABG pH 7.40 ABG Total CO2 18.9 L ABG O2 Saturation 99.3 H ABG Base Excess -5.5 L Eyal Test Na ABG Potassium 4.3 VBG pH VBG pCO2 VBG HCO3 VBG Total CO2 VBG O2 Sat (Calc) VBG Base Excess VBG Potassium A-a O2 Difference 80.0 Respiratory Index 0.8 Glucose 406 H* Lactate 4.2 H* Liter Flow 3.0 FiO2 30.0 Crit Value Called To Dr sherine mcleod Crit Value Called By Sonam hinkle cream separator operator Crit Value Read Back Y Blood Gas Notified Time 1230 Sodium 140.0 Potassium Chloride 111.0 H Carbon Dioxide Anion Gap BUN Creatinine Est GFR ( Amer) Est GFR (Non-Af Amer) Random Glucose Lactic Acid Calcium Phosphorus Magnesium Total Bilirubin AST ALT Alkaline Phosphatase Troponin I Total Protein Albumin Globulin Albumin/Globulin Ratio Lipase Arterial Blood Potassium 4.3 Venous Blood Potassium Urine Color Urine Clarity Urine pH Ur Specific [place] Urine Protein Urine Glucose (UA) Urine Ketones Urine Blood Urine Nitrate Urine Bilirubin Urine Urobilinogen Ur Leukocyte Esterase Urine WBC (Auto) Urine RBC (Auto) Urine Bacteria Stool Occult Blood Blood Type Antibody Screen Assessment & Plan (1) Hypotension (arterial) Status: Acute Comment: unlikely secondary to subsegmental pulmonary embolism. Hypotension multifactorial. Sepsis/anemia/ CAD. Transfuse packed RBCs. surgical evaluation. Pressors. Continue IV antibiotic. Followup lactate level. Intubation if condition worsen. Cardiology for evaluation. Heparin on hold because of anemia (2) Abdominal pain Status: Acute (3) Pulmonary embolism Status: Acute (4) Acute non-ST elevation myocardial infarction (NSTEMI) Status: Acute
[2018-01-27] MEDS ORDERED: Insulin Human Regular 100 UNIT in Sodium Chloride 0.9% 99 ML IV SCH (13:00)
[2018-01-27] MEDS: HYDROmorphone 0.5 mg/0.5 ml ISec IVP PRN (13:15)
[2018-01-27] MEDS ORDERED: metroNIDAZOLE IV 250mg/50 ml 250 MG/50 ML BAG IVPB SCH (14:00)
[2018-01-27] MEDS: Lactated Ringer's 1,000 ML IV SCH ×2 (14:40→21:54)
[2018-01-27] MEDS: metroNIDAZOLE IV 500 mg/100 ml 500 MG/100 ML BAG IVPB SCH ×2 (14:51→21:52)
--- NOTE | 2018-01-27 14:52 | CP.PCM.CON ---
<Kobi Schwartz - Last Filed: 01/27/18 14:54> History of Present Illness - History of Present Illness History of Present Illness: General Surgery- Dr. Villa Reason for Consult: Abdominal Pain 77M pmhx significant for perforated duodenal ulcer 12/2017 s/p exlap and rachelle patch repair, CAD s/p cardiac cath, chronic constipation presents to [facility] from assisted with abdominal pain, and shortness of breath. During work up patient was found to have a pulmonary embolism. Surgery was consulted due to abdominal pain on examination. Patient is a poor historian. Denies: fevers, chills, nausea, numbness/tingling in extremities PMH: CAD w/ tripple vessel disease, HTN, HLD, DM, GERD, perforated duodenal ulcer PSH: perforated duodenal ulcer exlap & rachelle patch, CABG ALL: PCN SocialHx: Denies tobacco, etoh, recreational drug use Review of Systems - Review of Systems All systems: reviewed and no additional remarkable complaints except - Constitutional Constitutional: As Per HPI Past Patient History - Infectious Disease Hx of Infectious Diseases: None - Past Medical History & Family History Past Medical History?: Yes - Past Social History Smoking Status: Former Smoker - CARDIAC Hx Hypercholesterolemia: Yes Hx Hypertension: Yes - PULMONARY Hx Respiratory Disorders: No - NEUROLOGICAL Hx Neurological Disorder: Yes Hx Syncope: Yes - HEENT Hx HEENT Problems: No - RENAL Hx Chronic Kidney Disease: No - ENDOCRINE/METABOLIC Hx Diabetes Mellitus Type 2: Yes - HEMATOLOGICAL/ONCOLOGICAL Hx Blood Disorders: No - INTEGUMENTARY Hx Dermatological Problems: No - MUSCULOSKELETAL/RHEUMATOLOGICAL Hx Falls: No - GASTROINTESTINAL Hx Gastrointestinal Disorders: Yes Hx Gastroesophageal Reflux: Yes - GENITOURINARY/GYNECOLOGICAL Hx Genitourinary Disorders: No - PSYCHIATRIC Hx Substance Use: No - SURGICAL HISTORY Hx Surgeries: Yes Other/Comment: left knee replacement, and left nerve repair, left and right hand nerve repair, Exp.Lap 12/22/17, - ANESTHESIA Hx Anesthesia: Yes Hx Anesthesia Reactions: No Hx Malignant Hyperthermia: No Has any member of the family had a problem w/ anesthesia?: No Meds Allergies/Adverse Reactions: Allergies Allergy/AdvReac Type Severity Reaction Status Date / Time Penicillins Allergy Mild Verified 01/26/18 15:08 - Medications Medications: Current Medications Aspirin (Ecotrin) 81 mg PO DAILY [facility] Last Admin: 01/27/18 11:44 Dose: Not Given Hydrocortisone Sodium Succinate (Solu-Cortef) 100 mg IV Q8H [facility] Last Admin: 01/27/18 13:15 Dose: 100 mg Hydromorphone HCl (Dilaudid) 0.5 mg IVP Q4H PRN PRN Reason: Pain, severe (8-10) Last Admin: 01/27/18 13:15 Dose: 0.5 mg Aztreonam 2 gm/ Sodium (Chloride) 100 mls @ 200 mls/hr IVPB Q8H [facility]INE PRN Reason: Protocol Last Admin: 01/27/18 11:48 Dose: 200 mls/hr Vancomycin HCl 1 gm/ Sodium (Chloride) 200 mls @ 133.333 mls/hr IVPB Q24H [facility] PRN Reason: Protocol Last Admin: 01/27/18 07:26 Dose: 133.333 mls/hr Phenylephrine HCl 30 mg/ (Sodium Chloride) 253 mls @ 10.12 mls/hr IV .Q24H PRN ; Protocol; 20 MCG/MIN PRN Reason: TITRATE PER MD ORDER Last Admin: 01/27/18 12:35 Dose: 30 mcg/min, 15.18 mls/hr Metronidazole (Flagyl) 500 mg in 100 mls @ 100 mls/hr IVPB Q8 [facility] PRN Reason: Protocol Lactated Ringer's (Lactated Ringer's) 1,000 mls @ 100 mls/hr IV .Q10H [facility] Norepinephrine Bitartrate 4 mg (/ Sodium Chloride) 250 mls @ 15 mls/hr IV .[id number] PRN; Protocol; 4 MCG/MIN PRN Reason: TITRATE PER MD ORDER Insulin Human Regular 100 unit (/ Sodium Chloride) 100 mls @ 1.07 mls/hr IV .Q24H [facility]OLINE; 0.02 UNIT/KG/HR PRN Reason: Protocol Pantoprazole Sodium 80 mg/ (Sodium Chloride) 100 mls @ 10 mls/hr IVP .Q10H [facility] PRN Reason: 8 MG/HR Multivitamins (Hexavitamin) 1 tab PO DAILY [facility] Last Admin: 01/27/18 09:36 Dose: Not Given Rosuvastatin Calcium (Crestor) 20 mg PO HS [facility] Last Admin: 01/26/18 22:05 Dose: 20 mg Physical Exam - Constitutional Appears: No Acute Distress, Chronically Ill - Head Exam Head Exam: ATRAUMATIC - Eye Exam Eye Exam: EOMI - ENT Exam ENT Exam: Mucous Membranes Moist - Respiratory Exam Respiratory Exam: NORMAL BREATHING PATTERN. absent: Accessory Muscle Use, Respiratory Distress - Cardiovascular Exam Cardiovascular Exam: +S1, +S2. absent: Bradycardia, Tachycardia - GI/Abdominal Exam GI & Abdominal Exam: Soft, Tenderness (tender in LLQ). absent: Firm, Guarding, Hernia Additional comments: Incision from surgery clean dry intact, no erythema or discharge noted - Neurological Exam Neurological exam: Alert - Psychiatric Exam Psychiatric exam: Normal Affect - Skin Skin Exam: Intact, Warm Results - Vital Signs Recent Vital Signs: Last Vital Signs Temp 98.4 F 01/27/18 07:43 Pulse 115 H 01/27/18 12:35 Resp 25 H 01/27/18 07:43 BP 76/54 L 01/27/18 12:35 Pulse Ox 100 01/27/18 06:00 - Labs Result Diagrams: 01/27/18 11:58 01/27/18 03:11 Labs: Laboratory Results - last 24 hr 01/26/18 01/26/18 01/26/18 16:27 16:27 16:27 WBC 12.9 H D RBC 3.50 L Hgb 10.4 L Hct 32.1 L MCV 91.7 MCH 29.6 MCHC 32.3 L RDW 14.3 Plt Count 248 MPV 9.9 Neut % (Auto) 79.8 H Lymph % (Auto) 14.0 L [place] % (Auto) 5.1 Eos % (Auto) 0.4 Baso % (Auto) 0.7 Neut # (Auto) 10.3 H Lymph # (Auto) 1.8 [place] # (Auto) 0.7 Eos # (Auto) 0.0 Baso # (Auto) 0.1 PT 11.6 INR 1.1 APTT 27 Puncture Site pCO2 pO2 HCO3 ABG pH ABG Total CO2 ABG O2 Saturation ABG Base Excess Eyal Test ABG Potassium VBG pH VBG pCO2 VBG HCO3 VBG Total CO2 VBG O2 Sat (Calc) VBG Base Excess VBG Potassium A-a O2 Difference Respiratory Index Glucose Lactate Liter Flow FiO2 Crit Value Called To Crit Value Called By Crit Value Read Back Blood Gas Notified Time Sodium 142 Potassium 4.2 Chloride 100 Carbon Dioxide 33 H Anion Gap 13 BUN 31 H Creatinine 0.9 Est GFR ( Amer) > 60 Est GFR (Non-Af Amer) > 60 Random Glucose 173 H Lactic Acid Calcium 11.0 H Phosphorus Magnesium Total Bilirubin 0.5 AST 86 H D ALT 138 H Alkaline Phosphatase 174 H Troponin I Total Protein 7.2 Albumin 3.2 L D Globulin 4.1 H Albumin/Globulin Ratio 0.8 L Lipase 297 Arterial Blood Potassium Venous Blood Potassium Urine Color Urine Clarity Urine pH Ur Specific [place] Urine Protein Urine Glucose (UA) Urine Ketones Urine Blood Urine Nitrate Urine Bilirubin Urine Urobilinogen Ur Leukocyte Esterase Urine WBC (Auto) Urine RBC (Auto) Urine Bacteria Stool Occult Blood Blood Type Antibody Screen 01/26/18 01/26/18 01/27/18 16:39 17:31 03:11 WBC RBC Hgb Hct MCV MCH MCHC RDW Plt Count MPV Neut % (Auto) Lymph % (Auto) [place] % (Auto) Eos % (Auto) Baso % (Auto) Neut # (Auto) Lymph # (Auto) [place] # (Auto) Eos # (Auto) Baso # (Auto) PT 15.5 H INR 1.4 APTT 104 H* D Puncture Site pCO2 pO2 HCO3 ABG pH ABG Total CO2 ABG O2 Saturation ABG Base Excess Eyal Test ABG Potassium VBG pH VBG pCO2 VBG HCO3 VBG Total CO2 VBG O2 Sat (Calc) VBG Base Excess VBG Potassium A-a O2 Difference Respiratory Index Glucose Lactate Liter Flow FiO2 Crit Value Called To Crit Value Called By Crit Value Read Back Blood Gas Notified Time Sodium Potassium Chloride Carbon Dioxide Anion Gap BUN Creatinine Est GFR ( Amer) Est GFR (Non-Af Amer) Random Glucose Lactic Acid 1.8 Calcium Phosphorus Magnesium Total Bilirubin AST ALT Alkaline Phosphatase Troponin I Total Protein Albumin Globulin Albumin/Globulin Ratio Lipase Arterial Blood Potassium Venous Blood Potassium Urine Color Yellow Urine Clarity Clear Urine pH 6.0 Ur Specific [place] 1.023 Urine Protein 1+ H Urine Glucose (UA) 3+ H Urine Ketones Negative Urine Blood Negative Urine Nitrate Negative Urine Bilirubin Negative Urine Urobilinogen Normal Ur Leukocyte Esterase Neg Urine WBC (Auto) < 1 Urine RBC (Auto) < 1 Urine Bacteria Occ H Stool Occult Blood Blood Type Antibody Screen 01/27/18 01/27/18 01/27/18 03:11 03:25 04:00 WBC 16.4 H RBC 2.75 L Hgb 8.4 L D Hct 25.6 L MCV 92.8 MCH 30.4 MCHC 32.7 L RDW 14.9 H Plt Count 223 MPV 9.7 Neut % (Auto) 78.9 H Lymph % (Auto) 14.7 L [place] % (Auto) 5.9 Eos % (Auto) 0.1 Baso % (Auto) 0.4 Neut # (Auto) 12.9 H Lymph # (Auto) 2.4 [place] # (Auto) 1.0 H Eos # (Auto) 0.0 Baso # (Auto) 0.1 PT INR APTT Puncture Site pCO2 pO2 22 L HCO3 ABG pH ABG Total CO2 ABG O2 Saturation ABG Base Excess Eyal Test ABG Potassium VBG pH 7.37 VBG pCO2 40 VBG HCO3 21.7 VBG Total CO2 24.3 VBG O2 Sat (Calc) 40.6 VBG Base Excess -2.0 L VBG Potassium 3.5 L A-a O2 Difference Respiratory Index Glucose 273 H Lactate 3.1 H Liter Flow FiO2 Crit Value Called To Anjana Bat rn Crit Value Called By Paulina worley rt Crit Value Read Back Y Blood Gas Notified Time 420 Sodium 144 148.0 Potassium 5.0 Chloride 102 118.0 H Carbon Dioxide 29 Anion Gap 18 BUN 37 H Creatinine 1.2 Est GFR ( Amer) > 60 Est GFR (Non-Af Amer) 59 Random Glucose 360 H Lactic Acid Calcium 9.6 Phosphorus 2.8 Magnesium 1.3 L Total Bilirubin 0.4 AST 45 ALT 92 H D Alkaline Phosphatase 118 Troponin I 0.1310 H* Total Protein 5.5 L Albumin 2.4 L D Globulin 3.0 Albumin/Globulin Ratio 0.8 L Lipase Arterial Blood Potassium Venous Blood Potassium 3.5 L Urine Color Urine Clarity Urine pH Ur Specific [place] Urine Protein Urine Glucose (UA) Urine Ketones Urine Blood Urine Nitrate Urine Bilirubin Urine Urobilinogen Ur Leukocyte Esterase Urine WBC (Auto) Urine RBC (Auto) Urine Bacteria Stool Occult Blood Blood Type Antibody Screen 01/27/18 01/27/18 01/27/18 05:17 06:55 07:55 WBC RBC Hgb Hct MCV MCH MCHC RDW Plt Count MPV Neut % (Auto) Lymph % (Auto) [place] % (Auto) Eos % (Auto) Baso % (Auto) Neut # (Auto) Lymph # (Auto) [place] # (Auto) Eos # (Auto) Baso # (Auto) PT INR APTT Puncture Site Rr pCO2 30 L pO2 99 HCO3 25.3 ABG pH 7.49 H ABG Total CO2 23.8 ABG O2 Saturation 99.1 H ABG Base Excess 0.4 Eyal Test Pos ABG Potassium 5.2 VBG pH VBG pCO2 VBG HCO3 VBG Total CO2 VBG O2 Sat (Calc) VBG Base Excess VBG Potassium A-a O2 Difference Respiratory Index Glucose 388 H Lactate 6.6 H* Liter Flow 2.0 FiO2 Crit Value Called To Dr. chua Crit Value Called By Simon process designer Crit Value Read Back Y Blood Gas Notified Time 703 Sodium 142.0 Potassium Chloride 107.0 Carbon Dioxide Anion Gap BUN Creatinine Est GFR ( Amer) Est GFR (Non-Af Amer) Random Glucose Lactic Acid Calcium Phosphorus Magnesium Total Bilirubin AST ALT Alkaline Phosphatase Troponin I Total Protein Albumin Globulin Albumin/Globulin Ratio Lipase Arterial Blood Potassium 5.2 Venous Blood Potassium Urine Color Urine Clarity Urine pH Ur Specific [place] Urine Protein Urine Glucose (UA) Urine Ketones Urine Blood Urine Nitrate Urine Bilirubin Urine Urobilinogen Ur Leukocyte Esterase Urine WBC (Auto) Urine RBC (Auto) Urine Bacteria Stool Occult Blood Negative Blood Type O POSITIVE Antibody Screen Negative 01/27/18 01/27/18 01/27/18 10:56 10:56 11:58 WBC 13.5 H RBC 2.44 L Hgb 7.4 L Hct 22.8 L MCV 93.6 MCH 30.3 MCHC 32.4 L RDW 14.3 Plt Count 197 MPV 9.6 Neut % (Auto) Lymph % (Auto) [place] % (Auto) Eos % (Auto) Baso % (Auto) Neut # (Auto) Lymph # (Auto) [place] # (Auto) Eos # (Auto) Baso # (Auto) PT INR APTT Puncture Site pCO2 pO2 HCO3 ABG pH ABG Total CO2 ABG O2 Saturation ABG Base Excess Eyal Test ABG Potassium VBG pH VBG pCO2 VBG HCO3 VBG Total CO2 VBG O2 Sat (Calc) VBG Base Excess VBG Potassium A-a O2 Difference Respiratory Index Glucose Lactate Liter Flow FiO2 Crit Value Called To Crit Value Called By Crit Value Read Back Blood Gas Notified Time Sodium Potassium Chloride Carbon Dioxide Anion Gap BUN Creatinine Est GFR ( Amer) Est GFR (Non-Af Amer) Random Glucose Lactic Acid 9.0 H* Calcium Phosphorus Magnesium Total Bilirubin AST ALT Alkaline Phosphatase Troponin I 0.3250 H* Total Protein Albumin Globulin Albumin/Globulin Ratio Lipase Arterial Blood Potassium Venous Blood Potassium Urine Color Urine Clarity Urine pH Ur Specific [place] Urine Protein Urine Glucose (UA) Urine Ketones Urine Blood Urine Nitrate Urine Bilirubin Urine Urobilinogen Ur Leukocyte Esterase Urine WBC (Auto) Urine RBC (Auto) Urine Bacteria Stool Occult Blood Blood Type Antibody Screen 01/27/18 12:24 WBC RBC Hgb Hct MCV MCH MCHC RDW Plt Count MPV Neut % (Auto) Lymph % (Auto) [place] % (Auto) Eos % (Auto) Baso % (Auto) Neut # (Auto) Lymph # (Auto) [place] # (Auto) Eos # (Auto) Baso # (Auto) PT INR APTT Puncture Site Rb pCO2 29 L pO2 98 HCO3 20.6 L ABG pH 7.40 ABG Total CO2 18.9 L ABG O2 Saturation 99.3 H ABG Base Excess -5.5 L Eyal Test Na ABG Potassium 4.3 VBG pH VBG pCO2 VBG HCO3 VBG Total CO2 VBG O2 Sat (Calc) VBG Base Excess VBG Potassium A-a O2 Difference 80.0 Respiratory Index 0.8 Glucose 406 H* Lactate 4.2 H* Liter Flow 3.0 FiO2 30.0 Crit Value Called To Dr sherine mcleod Crit Value Called By Sonam hinkle process designer Crit Value Read Back Y Blood Gas Notified Time 1230 Sodium 140.0 Potassium Chloride 111.0 H Carbon Dioxide Anion Gap BUN Creatinine Est GFR ( Amer) Est GFR (Non-Af Amer) Random Glucose Lactic Acid Calcium Phosphorus Magnesium Total Bilirubin AST ALT Alkaline Phosphatase Troponin I Total Protein Albumin Globulin Albumin/Globulin Ratio Lipase Arterial Blood Potassium 4.3 Venous Blood Potassium Urine Color Urine Clarity Urine pH Ur Specific [place] Urine Protein Urine Glucose (UA) Urine Ketones Urine Blood Urine Nitrate Urine Bilirubin Urine Urobilinogen Ur Leukocyte Esterase Urine WBC (Auto) Urine RBC (Auto) Urine Bacteria Stool Occult Blood Blood Type Antibody Screen Assessment & Plan - Assessment and Plan (Free Text) Assessment: 77M pmhx perforated duodenal ulcer, currently dx of PE CT Scan reviewed: shows large amount of stool in the rectum Plan: - recommend NGT placement - soap water enema - serial abd exams - medical management for PE per primary and ICU team - will follow - [facility] w/ [facility] <Fred Villa - Last Filed: 01/27/18 22:36> Meds - Medications Medications: Current Medications Aspirin (Ecotrin) 81 mg PO DAILY [facility] Last Admin: 01/27/18 11:44 Dose: Not Given Hydrocortisone Sodium Succinate (Solu-Cortef) 100 mg IV Q8H [facility] Last Admin: 01/27/18 21:54 Dose: 100 mg Hydromorphone HCl (Dilaudid) 0.5 mg IVP Q4H PRN PRN Reason: Pain, severe (8-10) Last Admin: 01/27/18 13:15 Dose: 0.5 mg Aztreonam 2 gm/ Sodium (Chloride) 100 mls @ 200 mls/hr IVPB Q8H [facility] PRN Reason: Protocol Last Admin: 01/27/18 21:00 Dose: 200 mls/hr Vancomycin HCl 1 gm/ Sodium (Chloride) 200 mls @ 133.333 mls/hr IVPB Q24H [facility] PRN Reason: Protocol Last Admin: 01/27/18 07:26 Dose: 133.333 mls/hr Phenylephrine HCl 30 mg/ (Sodium Chloride) 253 mls @ 10.12 mls/hr IV .Q24H PRN ; Protocol; 20 MCG/MIN PRN Reason: TITRATE PER MD ORDER Last Admin: 01/27/18 12:35 Dose: 30 mcg/min, 15.18 mls/hr Metronidazole (Flagyl) 500 mg in 100 mls @ 100 mls/hr IVPB Q8 [facility]INE PRN Reason: Protocol Last Admin: 01/27/18 21:52 Dose: 100 mls/hr Lactated Ringer's (Lactated Ringer's) 1,000 mls @ 100 mls/hr IV .Q10H [facility] Last Admin: 01/27/18 21:54 Dose: Not Given Norepinephrine Bitartrate 4 mg (/ Sodium Chloride) 250 mls @ 15 mls/hr IV .[id number] PRN; Protocol; 4 MCG/MIN PRN Reason: TITRATE PER MD ORDER Pantoprazole Sodium 80 mg/ (Sodium Chloride) 100 mls @ 10 mls/hr IVP .Q10H [facility] PRN Reason: 8 MG/HR Last Admin: 01/27/18 15:43 Dose: 10 mls/hr Insulin Aspart (Novolog) 0 unit SC Q6H [facility] PRN Reason: Protocol Multivitamins (Hexavitamin) 1 tab PO DAILY [facility] Last Admin: 01/27/18 09:36 Dose: Not Given Rosuvastatin Calcium (Crestor) 20 mg PO HS [facility] Last Admin: 01/27/18 21:53 Dose: 20 mg Results - Vital Signs Recent Vital Signs: Last Vital Signs Temp 97.7 F 01/27/18 18:15 Pulse 77 01/27/18 18:15 Resp 18 01/27/18 18:15 BP 113/68 01/27/18 18:15 Pulse Ox 93 L 01/27/18 18:00 - Labs Result Diagrams: 01/27/18 21:01 01/27/18 03:11 Labs: Laboratory Results - last 24 hr 01/27/18 01/27/18 01/27/18 03:11 03:11 03:25 WBC 16.4 H RBC 2.75 L Hgb 8.4 L D Hct 25.6 L MCV 92.8 MCH 30.4 MCHC 32.7 L RDW 14.9 H Plt Count 223 MPV 9.7 Neut % (Auto) 78.9 H Lymph % (Auto) 14.7 L [place] % (Auto) 5.9 Eos % (Auto) 0.1 Baso % (Auto) 0.4 Neut # (Auto) 12.9 H Lymph # (Auto) 2.4 [place] # (Auto) 1.0 H Eos # (Auto) 0.0 Baso # (Auto) 0.1 PT 15.5 H INR 1.4 APTT 104 H* D Puncture Site pCO2 pO2 HCO3 ABG pH ABG Total CO2 ABG O2 Saturation ABG Base Excess Eyal Test ABG Potassium VBG pH VBG pCO2 VBG HCO3 VBG Total CO2 VBG O2 Sat (Calc) VBG Base Excess VBG Potassium A-a O2 Difference Respiratory Index Glucose Lactate Liter Flow FiO2 Crit Value Called To Crit Value Called By Crit Value Read Back Blood Gas Notified Time Sodium 144 Potassium 5.0 Chloride 102 Carbon Dioxide 29 Anion Gap 18 BUN 37 H Creatinine 1.2 Est GFR ( Amer) > 60 Est GFR (Non-Af Amer) 59 Random Glucose 360 H Lactic Acid Calcium 9.6 Phosphorus 2.8 Magnesium 1.3 L Total Bilirubin 0.4 AST 45 ALT 92 H D Alkaline Phosphatase 118 Troponin I 0.1310 H* Total Protein 5.5 L Albumin 2.4 L D Globulin 3.0 Albumin/Globulin Ratio 0.8 L Arterial Blood Potassium Venous Blood Potassium Stool Occult Blood Urine Opiates Screen Urine Methadone Screen Ur Barbiturates Screen Ur Phencyclidine Scrn Ur Amphetamines Screen U Benzodiazepines Scrn U Oth Cocaine Metabols U Cannabinoids Screen Blood Type Antibody Screen 01/27/18 01/27/18 01/27/18 04:00 05:17 06:55 WBC RBC Hgb Hct MCV MCH MCHC RDW Plt Count MPV Neut % (Auto) Lymph % (Auto) [place] % (Auto) Eos % (Auto) Baso % (Auto) Neut # (Auto) Lymph # (Auto) [place] # (Auto) Eos # (Auto) Baso # (Auto) PT INR APTT Puncture Site Rr pCO2 30 L pO2 22 L 99 HCO3 25.3 ABG pH 7.49 H ABG Total CO2 23.8 ABG O2 Saturation 99.1 H ABG Base Excess 0.4 Eyal Test Pos ABG Potassium 5.2 VBG pH 7.37 VBG pCO2 40 VBG HCO3 21.7 VBG Total CO2 24.3 VBG O2 Sat (Calc) 40.6 VBG Base Excess -2.0 L VBG Potassium 3.5 L A-a O2 Difference Respiratory Index Glucose 273 H 388 H Lactate 3.1 H 6.6 H* Liter Flow 2.0 FiO2 Crit Value Called To Anjana chua Crit Value Called By Paulina Montes process designer Crit Value Read Back Y Y Blood Gas Notified Time 420 703 Sodium 148.0 142.0 Potassium Chloride 118.0 H 107.0 Carbon Dioxide Anion Gap BUN Creatinine Est GFR ( Amer) Est GFR (Non-Af Amer) Random Glucose Lactic Acid Calcium Phosphorus Magnesium Total Bilirubin AST ALT Alkaline Phosphatase Troponin I Total Protein Albumin Globulin Albumin/Globulin Ratio Arterial Blood Potassium 5.2 Venous Blood Potassium 3.5 L Stool Occult Blood Urine Opiates Screen Urine Methadone Screen Ur Barbiturates Screen Ur Phencyclidine Scrn Ur Amphetamines Screen U Benzodiazepines Scrn U Oth Cocaine Metabols U Cannabinoids Screen Blood Type O POSITIVE Antibody Screen Negative 01/27/18 01/27/18 01/27/18 07:55 10:56 10:56 WBC RBC Hgb Hct MCV MCH MCHC RDW Plt Count MPV Neut % (Auto) Lymph % (Auto) [place] % (Auto) Eos % (Auto) Baso % (Auto) Neut # (Auto) Lymph # (Auto) [place] # (Auto) Eos # (Auto) Baso # (Auto) PT INR APTT Puncture Site pCO2 pO2 HCO3 ABG pH ABG Total CO2 ABG O2 Saturation ABG Base Excess Eyal Test ABG Potassium VBG pH VBG pCO2 VBG HCO3 VBG Total CO2 VBG O2 Sat (Calc) VBG Base Excess VBG Potassium A-a O2 Difference Respiratory Index Glucose Lactate Liter Flow FiO2 Crit Value Called To Crit Value Called By Crit Value Read Back Blood Gas Notified Time Sodium Potassium Chloride Carbon Dioxide Anion Gap BUN Creatinine Est GFR ( Amer) Est GFR (Non-Af Amer) Random Glucose Lactic Acid 9.0 H* Calcium Phosphorus Magnesium Total Bilirubin AST ALT Alkaline Phosphatase Troponin I 0.3250 H* Total Protein Albumin Globulin Albumin/Globulin Ratio Arterial Blood Potassium Venous Blood Potassium Stool Occult Blood Negative Urine Opiates Screen Urine Methadone Screen Ur Barbiturates Screen Ur Phencyclidine Scrn Ur Amphetamines Screen U Benzodiazepines Scrn U Oth Cocaine Metabols U Cannabinoids Screen Blood Type Antibody Screen 01/27/18 01/27/18 01/27/18 11:58 12:24 14:56 WBC 13.5 H RBC 2.44 L Hgb 7.4 L Hct 22.8 L MCV 93.6 MCH 30.3 MCHC 32.4 L RDW 14.3 Plt Count 197 MPV 9.6 Neut % (Auto) Lymph % (Auto) [place] % (Auto) Eos % (Auto) Baso % (Auto) Neut # (Auto) Lymph # (Auto) [place] # (Auto) Eos # (Auto) Baso # (Auto) PT INR APTT Puncture Site Rb pCO2 29 L pO2 98 HCO3 20.6 L ABG pH 7.40 ABG Total CO2 18.9 L ABG O2 Saturation 99.3 H ABG Base Excess -5.5 L Eyal Test Na ABG Potassium 4.3 VBG pH VBG pCO2 VBG HCO3 VBG Total CO2 VBG O2 Sat (Calc) VBG Base Excess VBG Potassium A-a O2 Difference 80.0 Respiratory Index 0.8 Glucose 406 H* Lactate 4.2 H* Liter Flow 3.0 FiO2 30.0 Crit Value Called To Dr sherine mcleod Crit Value Called By Sonam hinkle process designer Crit Value Read Back Y Blood Gas Notified Time 1230 Sodium 140.0 Potassium Chloride 111.0 H Carbon Dioxide Anion Gap BUN Creatinine Est GFR ( Amer) Est GFR (Non-Af Amer) Random Glucose Lactic Acid Calcium Phosphorus Magnesium Total Bilirubin AST ALT Alkaline Phosphatase Troponin I Total Protein Albumin Globulin Albumin/Globulin Ratio Arterial Blood Potassium 4.3 Venous Blood Potassium Stool Occult Blood Urine Opiates Screen Negative Urine Methadone Screen Negative Ur Barbiturates Screen Positive H Ur Phencyclidine Scrn Negative Ur Amphetamines Screen Negative U Benzodiazepines Scrn Negative U Oth Cocaine Metabols Negative U Cannabinoids Screen Negative Blood Type Antibody Screen 01/27/18 01/27/18 01/27/18 17:01 17:01 21:01 WBC 13.5 H RBC 3.03 L Hgb 9.2 L Hct 27.4 L MCV 90.2 D MCH 30.4 MCHC 33.7 RDW 14.3 Plt Count 171 MPV 9.3 Neut % (Auto) Lymph % (Auto) [place] % (Auto) Eos % (Auto) Baso % (Auto) Neut # (Auto) Lymph # (Auto) [place] # (Auto) Eos # (Auto) Baso # (Auto) PT INR APTT Puncture Site pCO2 pO2 HCO3 ABG pH ABG Total CO2 ABG O2 Saturation ABG Base Excess Eyal Test ABG Potassium VBG pH VBG pCO2 VBG HCO3 VBG Total CO2 VBG O2 Sat (Calc) VBG Base Excess VBG Potassium A-a O2 Difference Respiratory Index Glucose Lactate Liter Flow FiO2 Crit Value Called To Crit Value Called By Crit Value Read Back Blood Gas Notified Time Sodium Potassium Chloride Carbon Dioxide Anion Gap BUN Creatinine Est GFR ( Amer) Est GFR (Non-Af Amer) Random Glucose Lactic Acid 1.6 Calcium Phosphorus Magnesium Total Bilirubin AST ALT Alkaline Phosphatase Troponin I 0.4990 H* Total Protein Albumin Globulin Albumin/Globulin Ratio Arterial Blood Potassium Venous Blood Potassium Stool Occult Blood Urine Opiates Screen Urine Methadone Screen Ur Barbiturates Screen Ur Phencyclidine Scrn Ur Amphetamines Screen U Benzodiazepines Scrn U Oth Cocaine Metabols U Cannabinoids Screen Blood Type Antibody Screen Attending/Attestation - Attestation I have personally seen and examined this patient.: Yes I have fully participated in the care of the patient.: Yes I have reviewed all pertinent clinical information: Yes Notes (Text): Pt was seen and examined at bedside Agree with above note and assessment Pt with abdominal pain and tenderness Labs and radiology reviewed Ass: PE, RI, fluid collection in upper abdomen Plan : NG tube to LIS IV antibiotics NPO, IVF IR consult for drainage collection Plan d.w primary team in detail Risk and benefit explained in detail.
[2018-01-27 15:16] LABS: BENZODIAZEPINES, UR NEGATIVE (NEGATIVE); OPIATES, UR NEGATIVE (NEGATIVE); PHENCYCLIDINE, UR NEGATIVE (NEGATIVE)
[2018-01-27 15:17] LABS: BARBITURATES, UR POSITIVE (NEGATIVE)
--- NOTE | 2018-01-27 15:34 | CT ---
CT abdomen and pelvis History: Abdominal pain. Comparison: 12/24/2017 Technique multiple contiguous axial images were performed through the abdomen and pelvis without the use of intravenous contrast. Subsequently, sagittal and coronal reformatted images were obtained. This CT exam was performed using one or more of the following dose reduction techniques: Automated exposure control, adjustment of the mA and/or kV according to patient size, and/or use of iterative reconstruction technique. Findings: Atelectasis and or fibrosis at the lung bases. Some focal areas of nodular consolidation at the lung bases. Pulmonary emboli are noted in the lower lobe arteries images 4-10 bilaterally. Clinical correlation. Mild fatty infiltration of the liver. Contracted and or resected gallbladder. Clinical correlation. Spleen preserved. Perisplenic ascites. Pancreas grossly preserved. Nodular thickening of the adrenal glands bilaterally for example a 1 centimeter adrenal nodule is seen in the left adrenal gland demonstrating a Hounsfield unit attenuation of 87, indeterminate. This may be better evaluated with multiphasic CT. Kidneys and ureters are grossly preserved. Heterogeneous prostate and seminal vesicles. Moderate to severe fecal retention in the colon. Wall thickening identified in the distal stomach and possible duodenal region with an air-fluid level in the stomach. Correlate for gastroduodenitis. Appendix not well identified. Fluid in the upper abdomen is again identified measuring up to 6.6 x 1.7 centimeters with peripheral enhancement and a few punctate foci of air. This is of uncertain clinical etiology and may represent a seroma or abscess or additional etiology. Degenerative changes in the spine with a spinal stenosis noted. Prominent anterior listhesis of L5 on S1. Vascular calcifications in the coronary arteries. Stranding in the right upper quadrant presumably postprocedural. Patient had a drainage catheter previously. Impression: Pulmonary emboli are noted in the lower lobe pulmonary arteries as described above. Clinical correlation. Fluid collection which appears enhancing and containing air seen in the upper abdomen measuring up to 6.6 centimeters. This is of uncertain clinical etiology and may represent an abscess and or seroma and or additional etiology. Clinical correlation. Stranding in the right upper quadrant may represent some postprocedural changes. Patient had a drainage catheter in prior reports. Clinical correlation. Moderate to severe fecal retention. Wall thickening identified at the level of the distal stomach and possible duodenal region with an air-fluid level in the stomach. Correlate for gastroduodenitis. Additional findings as above. These findings were preliminarily reported at 9:13 p.m. on 01/26/[address] Arash Lamb from [employer].
[2018-01-27] MEDS ORDERED: Pantoprazole 80 MG in Sodium Chloride 0.9% 100 ML IVP SCH (16:00)
--- NOTE | 2018-01-27 19:31 | CP.PCM.CON ---
History of Present Illness - History of Present Illness History of Present Illness: GI EMERGENCY CONSULT. I was asked today to see pt for GI bleed- coffee frounds NG tube. PMH: CAD, perf ulcer surgery 12/27 with abdom wall infection s/p drain, HTN Now admitted with abdom pain and hypotension. Found to have pulm embolii on CT > Given IV heparin. Hb dropped 9 to 7 and NG tube shows coffee grounds. Stool recently reported as brown. No melena. Discussed with tableau analyst of Systems - Constitutional Constitutional: Weight Loss. absent: Fever - EENT Eyes: absent: Photophobia - Cardiovascular Cardiovascular: Dyspnea. absent: Chest Pain - Respiratory Respiratory: Dyspnea. absent: Hemoptysis - Gastrointestinal Gastrointestinal: Abdominal Pain, Bloating, Coffee Ground Emesis, Constipation. absent: Diarrhea, Hematochezia, Loose Stools, Melena, Vomiting - Genitourinary Genitourinary: absent: Hematuria - Musculoskeletal Musculoskeletal: absent: Muscle Cramps - Integumentary Integumentary: absent: Jaundice - Neurological Neurological: absent: Convulsions Past Patient History - Infectious Disease Hx of Infectious Diseases: None - Past Medical History & Family History Past Medical History?: Yes - Past Social History Smoking Status: Former Smoker - CARDIAC Hx Hypercholesterolemia: Yes Hx Hypertension: Yes - PULMONARY Hx Respiratory Disorders: No - NEUROLOGICAL Hx Neurological Disorder: Yes Hx Syncope: Yes - HEENT Hx HEENT Problems: No - RENAL Hx Chronic Kidney Disease: No - ENDOCRINE/METABOLIC Hx Diabetes Mellitus Type 2: Yes - HEMATOLOGICAL/ONCOLOGICAL Hx Blood Disorders: No - INTEGUMENTARY Hx Dermatological Problems: No - MUSCULOSKELETAL/RHEUMATOLOGICAL Hx Falls: No - GASTROINTESTINAL Hx Gastrointestinal Disorders: Yes Hx Gastroesophageal Reflux: Yes - GENITOURINARY/GYNECOLOGICAL Hx Genitourinary Disorders: No - PSYCHIATRIC Hx Substance Use: No - SURGICAL HISTORY Hx Surgeries: Yes Other/Comment: left knee replacement, and left nerve repair, left and right hand nerve repair, Exp.Lap 12/22/17, - ANESTHESIA Hx Anesthesia: Yes Hx Anesthesia Reactions: No Hx Malignant Hyperthermia: No Has any member of the family had a problem w/ anesthesia?: No Meds Allergies/Adverse Reactions: Allergies Allergy/AdvReac Type Severity Reaction Status Date / Time Penicillins Allergy Mild Verified 01/26/18 15:08 - Medications Medications: Current Medications Aspirin (Ecotrin) 81 mg PO DAILY [facility] Last Admin: 01/27/18 11:44 Dose: Not Given Hydrocortisone Sodium Succinate (Solu-Cortef) 100 mg IV Q8H [facility] Last Admin: 01/27/18 13:15 Dose: 100 mg Hydromorphone HCl (Dilaudid) 0.5 mg IVP Q4H PRN PRN Reason: Pain, severe (8-10) Last Admin: 01/27/18 13:15 Dose: 0.5 mg Aztreonam 2 gm/ Sodium (Chloride) 100 mls @ 200 mls/hr IVPB Q8H [facility]OL[facility] PRN Reason: Protocol Last Admin: 01/27/18 11:48 Dose: 200 mls/hr Vancomycin HCl 1 gm/ Sodium (Chloride) 200 mls @ 133.333 mls/hr IVPB Q24H [facility] PRN Reason: Protocol Last Admin: 01/27/18 07:26 Dose: 133.333 mls/hr Phenylephrine HCl 30 mg/ (Sodium Chloride) 253 mls @ 10.12 mls/hr IV .Q24H PRN ; Protocol; 20 MCG/MIN PRN Reason: TITRATE PER MD ORDER Last Admin: 01/27/18 12:35 Dose: 30 mcg/min, 15.18 mls/hr Metronidazole (Flagyl) 500 mg in 100 mls @ 100 mls/hr IVPB Q8 [facility] PRN Reason: Protocol Last Admin: 01/27/18 14:51 Dose: 100 mls/hr Lactated Ringer's (Lactated Ringer's) 1,000 mls @ 100 mls/hr IV .Q10H [facility] Last Admin: 01/27/18 14:40 Dose: 100 mls/hr Norepinephrine Bitartrate 4 mg (/ Sodium Chloride) 250 mls @ 15 mls/hr IV .[id number] PRN; Protocol; 4 MCG/MIN PRN Reason: TITRATE PER MD ORDER Pantoprazole Sodium 80 mg/ (Sodium Chloride) 100 mls @ 10 mls/hr IVP .Q10H [facility]OLINE PRN Reason: 8 MG/HR Last Admin: 01/27/18 15:43 Dose: 10 mls/hr Insulin Aspart (Novolog) 0 unit SC Q6H [facility] PRN Reason: Protocol Multivitamins (Hexavitamin) 1 tab PO DAILY [facility] Last Admin: 01/27/18 09:36 Dose: Not Given Rosuvastatin Calcium (Crestor) 20 mg PO HS [facility]INE Last Admin: 01/26/18 22:05 Dose: 20 mg Physical Exam - Constitutional Additional comments: Appears ill. - Neck Exam Neck exam: Negative for: Tenderness - Respiratory Exam Respiratory Exam: Rhonchi - Cardiovascular Exam Cardiovascular Exam: Tachycardia - GI/Abdominal Exam GI & Abdominal Exam: Normal Bowel Sounds, Soft. absent: Distended, Guarding, Mass, Rebound, Tenderness Additional comments: scar noted. - Neurological Exam Additional comments: Responds, confused Results - Vital Signs Recent Vital Signs: Last Vital Signs Temp 97.7 F 01/27/18 16:00 Pulse 79 01/27/18 18:00 Resp 14 01/27/18 18:00 BP 113/69 01/27/18 17:56 Pulse Ox 93 L 01/27/18 18:00 - Labs Result Diagrams: 01/27/18 11:58 01/27/18 03:11 Labs: Laboratory Results - last 24 hr 01/27/18 01/27/18 01/27/18 03:11 03:11 03:25 WBC 16.4 H RBC 2.75 L Hgb 8.4 L D Hct 25.6 L MCV 92.8 MCH 30.4 MCHC 32.7 L RDW 14.9 H Plt Count 223 MPV 9.7 Neut % (Auto) 78.9 H Lymph % (Auto) 14.7 L [place] % (Auto) 5.9 Eos % (Auto) 0.1 Baso % (Auto) 0.4 Neut # (Auto) 12.9 H Lymph # (Auto) 2.4 [place] # (Auto) 1.0 H Eos # (Auto) 0.0 Baso # (Auto) 0.1 PT 15.5 H INR 1.4 APTT 104 H* D Puncture Site pCO2 pO2 HCO3 ABG pH ABG Total CO2 ABG O2 Saturation ABG Base Excess Eyal Test ABG Potassium VBG pH VBG pCO2 VBG HCO3 VBG Total CO2 VBG O2 Sat (Calc) VBG Base Excess VBG Potassium A-a O2 Difference Respiratory Index Glucose Lactate Liter Flow FiO2 Crit Value Called To Crit Value Called By Crit Value Read Back Blood Gas Notified Time Sodium 144 Potassium 5.0 Chloride 102 Carbon Dioxide 29 Anion Gap 18 BUN 37 H Creatinine 1.2 Est GFR ( Amer) > 60 Est GFR (Non-Af Amer) 59 Random Glucose 360 H Lactic Acid Calcium 9.6 Phosphorus 2.8 Magnesium 1.3 L Total Bilirubin 0.4 AST 45 ALT 92 H D Alkaline Phosphatase 118 Troponin I 0.1310 H* Total Protein 5.5 L Albumin 2.4 L D Globulin 3.0 Albumin/Globulin Ratio 0.8 L Arterial Blood Potassium Venous Blood Potassium Stool Occult Blood Urine Opiates Screen Urine Methadone Screen Ur Barbiturates Screen Ur Phencyclidine Scrn Ur Amphetamines Screen U Benzodiazepines Scrn U Oth Cocaine Metabols U Cannabinoids Screen Blood Type Antibody Screen 01/27/18 01/27/18 01/27/18 04:00 05:17 06:55 WBC RBC Hgb Hct MCV MCH MCHC RDW Plt Count MPV Neut % (Auto) Lymph % (Auto) [place] % (Auto) Eos % (Auto) Baso % (Auto) Neut # (Auto) Lymph # (Auto) [place] # (Auto) Eos # (Auto) Baso # (Auto) PT INR APTT Puncture Site Rr pCO2 30 L pO2 22 L 99 HCO3 25.3 ABG pH 7.49 H ABG Total CO2 23.8 ABG O2 Saturation 99.1 H ABG Base Excess 0.4 Eyal Test Pos ABG Potassium 5.2 VBG pH 7.37 VBG pCO2 40 VBG HCO3 21.7 VBG Total CO2 24.3 VBG O2 Sat (Calc) 40.6 VBG Base Excess -2.0 L VBG Potassium 3.5 L A-a O2 Difference Respiratory Index Glucose 273 H 388 H Lactate 3.1 H 6.6 H* Liter Flow 2.0 FiO2 Crit Value Called To Anjana Bat felisa chua Crit Value Called By Paulina Montes asset protection specialist Crit Value Read Back Y Y Blood Gas Notified Time 420 703 Sodium 148.0 142.0 Potassium Chloride 118.0 H 107.0 Carbon Dioxide Anion Gap BUN Creatinine Est GFR ( Amer) Est GFR (Non-Af Amer) Random Glucose Lactic Acid Calcium Phosphorus Magnesium Total Bilirubin AST ALT Alkaline Phosphatase Troponin I Total Protein Albumin Globulin Albumin/Globulin Ratio Arterial Blood Potassium 5.2 Venous Blood Potassium 3.5 L Stool Occult Blood Urine Opiates Screen Urine Methadone Screen Ur Barbiturates Screen Ur Phencyclidine Scrn Ur Amphetamines Screen U Benzodiazepines Scrn U Oth Cocaine Metabols U Cannabinoids Screen Blood Type O POSITIVE Antibody Screen Negative 01/27/18 01/27/18 01/27/18 07:55 10:56 10:56 WBC RBC Hgb Hct MCV MCH MCHC RDW Plt Count MPV Neut % (Auto) Lymph % (Auto) [place] % (Auto) Eos % (Auto) Baso % (Auto) Neut # (Auto) Lymph # (Auto) [place] # (Auto) Eos # (Auto) Baso # (Auto) PT INR APTT Puncture Site pCO2 pO2 HCO3 ABG pH ABG Total CO2 ABG O2 Saturation ABG Base Excess Eyal Test ABG Potassium VBG pH VBG pCO2 VBG HCO3 VBG Total CO2 VBG O2 Sat (Calc) VBG Base Excess VBG Potassium A-a O2 Difference Respiratory Index Glucose Lactate Liter Flow FiO2 Crit Value Called To Crit Value Called By Crit Value Read Back Blood Gas Notified Time Sodium Potassium Chloride Carbon Dioxide Anion Gap BUN Creatinine Est GFR ( Amer) Est GFR (Non-Af Amer) Random Glucose Lactic Acid 9.0 H* Calcium Phosphorus Magnesium Total Bilirubin AST ALT Alkaline Phosphatase Troponin I 0.3250 H* Total Protein Albumin Globulin Albumin/Globulin Ratio Arterial Blood Potassium Venous Blood Potassium Stool Occult Blood Negative Urine Opiates Screen Urine Methadone Screen Ur Barbiturates Screen Ur Phencyclidine Scrn Ur Amphetamines Screen U Benzodiazepines Scrn U Oth Cocaine Metabols U Cannabinoids Screen Blood Type Antibody Screen 01/27/18 01/27/18 01/27/18 11:58 12:24 14:56 WBC 13.5 H RBC 2.44 L Hgb 7.4 L Hct 22.8 L MCV 93.6 MCH 30.3 MCHC 32.4 L RDW 14.3 Plt Count 197 MPV 9.6 Neut % (Auto) Lymph % (Auto) [place] % (Auto) Eos % (Auto) Baso % (Auto) Neut # (Auto) Lymph # (Auto) [place] # (Auto) Eos # (Auto) Baso # (Auto) PT INR APTT Puncture Site Rb pCO2 29 L pO2 98 HCO3 20.6 L ABG pH 7.40 ABG Total CO2 18.9 L ABG O2 Saturation 99.3 H ABG Base Excess -5.5 L Eyal Test Na ABG Potassium 4.3 VBG pH VBG pCO2 VBG HCO3 VBG Total CO2 VBG O2 Sat (Calc) VBG Base Excess VBG Potassium A-a O2 Difference 80.0 Respiratory Index 0.8 Glucose 406 H* Lactate 4.2 H* Liter Flow 3.0 FiO2 30.0 Crit Value Called To Dr sherine mcleod Crit Value Called By Sonam hinkle asset protection specialist Crit Value Read Back Y Blood Gas Notified Time 1230 Sodium 140.0 Potassium Chloride 111.0 H Carbon Dioxide Anion Gap BUN Creatinine Est GFR ( Amer) Est GFR (Non-Af Amer) Random Glucose Lactic Acid Calcium Phosphorus Magnesium Total Bilirubin AST ALT Alkaline Phosphatase Troponin I Total Protein Albumin Globulin Albumin/Globulin Ratio Arterial Blood Potassium 4.3 Venous Blood Potassium Stool Occult Blood Urine Opiates Screen Negative Urine Methadone Screen Negative Ur Barbiturates Screen Positive H Ur Phencyclidine Scrn Negative Ur Amphetamines Screen Negative U Benzodiazepines Scrn Negative U Oth Cocaine Metabols Negative U Cannabinoids Screen Negative Blood Type Antibody Screen 01/27/18 01/27/18 17:01 17:01 WBC RBC Hgb Hct MCV MCH MCHC RDW Plt Count MPV Neut % (Auto) Lymph % (Auto) [place] % (Auto) Eos % (Auto) Baso % (Auto) Neut # (Auto) Lymph # (Auto) [place] # (Auto) Eos # (Auto) Baso # (Auto) PT INR APTT Puncture Site pCO2 pO2 HCO3 ABG pH ABG Total CO2 ABG O2 Saturation ABG Base Excess Eyal Test ABG Potassium VBG pH VBG pCO2 VBG HCO3 VBG Total CO2 VBG O2 Sat (Calc) VBG Base Excess VBG Potassium A-a O2 Difference Respiratory Index Glucose Lactate Liter Flow FiO2 Crit Value Called To Crit Value Called By Crit Value Read Back Blood Gas Notified Time Sodium Potassium Chloride Carbon Dioxide Anion Gap BUN Creatinine Est GFR ( Amer) Est GFR (Non-Af Amer) Random Glucose Lactic Acid 1.6 Calcium Phosphorus Magnesium Total Bilirubin AST ALT Alkaline Phosphatase Troponin I 0.4990 H* Total Protein Albumin Globulin Albumin/Globulin Ratio Arterial Blood Potassium Venous Blood Potassium Stool Occult Blood Urine Opiates Screen Urine Methadone Screen Ur Barbiturates Screen Ur Phencyclidine Scrn Ur Amphetamines Screen U Benzodiazepines Scrn U Oth Cocaine Metabols U Cannabinoids Screen Blood Type Antibody Screen Assessment & Plan (1) Upper GI bleed Assessment and Plan: Coffee grounds in NG tube. No vomiting red blood. No melena. Stool now is brown. Most likely is gastritis or stress gastritis. Had recent surgery 1 mo ago for perforated ulcer.I discussed the case in person now with Meter Reader Inspector. Recommends observing, following Hb, IV protonix, and hold EGD at this time. Holding heparin due to GI bleed and drop in Hb. If bleeding worsens, will consider EGD if stable. Other severe medical issues: PE, CAD, NSTEMI, hypotension, sepsis, lactate elev, recent surgery for perf ulcer. Status: Acute (2) Constipation Assessment and Plan: On CT. Now having BMs. Enemas given. Status: Acute (3) Abdominal pain Assessment and Plan: Consider from constipation. Abdom is soft. Consdier gastritis, ulcer Status: Acute (4) Hypotension (arterial) Assessment and Plan: Multifactorial: sepsis, cardiac, GI bleed, PE. On pressors. Status: Acute (5) Pulmonary embolism Status: Acute (6) Acute non-ST elevation myocardial infarction (NSTEMI) Status: Acute (7) Diabetes mellitus Status: Acute (8) GERD (gastroesophageal reflux disease) Assessment and Plan: GERD reported on last admission. Status: Acute (9) Perforated abdominal viscus Status: Acute (10) Sepsis associated hypotension Status: Acute (11) Status post exploratory laparotomy Assessment and Plan: For ulcer Status: Acute
[2018-01-27 21:03] LABS: HEMOGLOBIN 9.2 g/dL (12.0-18.0); MEAN CELL VOLUME 90.2 fL (80.0-94.0); MEAN CORPUSCULAR HEMOGLOBIN 30.4 pg (27.0-31.0); MEAN CORPUSCULAR HGB CONC 33.7 g/dL (33.0-37.0); MEAN PLATELET VOLUME 9.3 fL (7.2-11.7); RBC 3.03 Mil/uL (4.40-5.90); RED CELL DISTRIBUTION WIDTH 14.3 % (11.5-14.5); WHITE BLOOD COUNT 13.5 K/uL (4.8-10.8)
--- NOTE | 2018-01-27 22:37 | CT ---
EXAM: CT Angiography Chest With Intravenous Contrast EXAM DATE/TIME: 01/27/2018 9:25 PM CLINICAL HISTORY: 77 years old, male; Pain and signs and symptoms; Shortness of breath; Chest pain; Additional info: Pulm. Embolism TECHNIQUE: Axial computed tomographic angiography images of the chest with intravenous contrast using pulmonary embolism protocol. All CT scans at this facility use one or more dose reduction techniques, viz.: automated exposure control; ma/kV adjustment per patient size (including targeted exams where dose is matched to indication; i.e. head); or iterative reconstruction technique. MIP reconstructed images were created and reviewed. Coronal and sagittal reformatted images were created and reviewed. CONTRAST: 100 mL of visipaque 320 administered intravenously. COMPARISON: There are no prior studies for comparison. FINDINGS: Artifacts: Motion artifact degrades image quality. Heart, aorta and Pulmonary arteries: The heart is enlarged. There are coronary artery calcifications. Aorta is ectatic. There is perfusion of the 3 arch vessels. There are vascular calcifications. There is iatrogenic air in the main pulmonary artery with streak artifact. Patient motion and streak artifact limit evaluation of pulmonary arteries. There is a nonocclusive embolus in the right main pulmonary artery. Embolus extends into upper and lower lobe vessels. There are small peripheral left lower lobe pulmonary emboli. Lungs and pleural spaces: Trachea and main bronchi are patent. The lungs are mildly hyperinflated. There is atelectasis in thickening along the right major fissure. There is elevation of the right diaphragm with compressive atelectasis at the right base. There is a left pleural effusion. There is left lower lobe airspace disease. There is subsegmental atelectasis in the left lower lobe.There is nodular thickening along the left major fissure. Mediastinum: The esophagus is collapsed around the nasogastric tube. There are no pathologically enlarged mediastinal or hilar nodes. Thyroid: Right lobe of the thyroid is prominent. Thyroid is heterogeneous and Bones/joints: There is exaggeration of the thoracic kyphosis. There is multilevel degenerative change. Soft tissues: unremarkable Upper abdomen: There are no acute abnormalities in the visualized portion of the abdomen. There is nodular thickening of both adrenals. Nasogastric tube tip is in the stomach IMPRESSION: Limited by patient motion and artifact, small bilateral pulmonary emboli most likely acute; small left effusion with left lower lobe airspace disease atelectasis and/or infiltrate; compressive atelectasis at the right base Additional nonemergent findings as described above.
[2018-01-28] MEDS: (Novolog) Insulin Aspart, Recombinant 100 u/ml 10 ml vial SC SCH ×4 (00:22→18:10)
[2018-01-28] MEDS: HYDROmorphone 0.5 mg/0.5 ml ISec IVP PRN ×3 (01:57→17:05)
[2018-01-28] MEDS: Phenylephrine 30 MG in Sodium Chloride 0.9% 250 ML IV PRN (03:04)
[2018-01-28] MEDS: Pantoprazole 80 MG in Sodium Chloride 0.9% 100 ML IVPB SCH ×3 (03:15→23:48)
[2018-01-28] MEDS: Aztreonam 2 GM in Sodium Chloride 0.9% 100 ML IVPB SCH ×3 (04:45→20:06)
[2018-01-28] MEDS: metroNIDAZOLE IV 500 mg/100 ml 500 MG/100 ML BAG IVPB SCH ×3 (05:50→21:27)
[2018-01-28] MEDS: Vancomycin 1 GM in Sodium Chloride 0.9% 200 ML IVPB SCH (05:52)
--- NOTE | 2018-01-28 05:59 | CP.PCM.PN ---
<Kobi Schwartz - Last Filed: 01/28/18 05:56> Subjective - Date & Time of Evaluation Date of Evaluation: 01/28/18 Time of Evaluation: 05:30 - Subjective Subjective: Surgery- Dr. Villa Patient seen and examined at bedside this AM. NGT in place w/ coffee ground emesis. Pt awake however falls asleep during encounter. No abd pain at this time. Afebrile overnight Objective - Vital Signs/Intake and Output Vital Signs (last 24 hours): Temp Pulse Resp BP Pulse Ox 68.3 F L 94 H 16 105/60 95 01/28/18 01:00 01/28/18 01:00 01/28/18 01:00 01/28/18 03:04 01/28/18 01:00 Intake and Output: 01/27/18 01/28/18 18:59 06:59 Intake Total 3942.1 1378 Output Total 680 500 Balance 3262.1 878 - Medications Medications: Current Medications Aspirin (Ecotrin) 81 mg PO DAILY [facility] Last Admin: 01/27/18 11:44 Dose: Not Given Hydrocortisone Sodium Succinate (Solu-Cortef) 100 mg IV Q8H [facility] Last Admin: 01/28/18 05:51 Dose: 100 mg Hydromorphone HCl (Dilaudid) 0.5 mg IVP Q4H PRN PRN Reason: Pain, severe (8-10) Last Admin: 01/28/18 01:57 Dose: 0.5 mg Aztreonam 2 gm/ Sodium (Chloride) 100 mls @ 200 mls/hr IVPB Q8H [facility] PRN Reason: Protocol Last Admin: 01/28/18 04:45 Dose: 200 mls/hr Vancomycin HCl 1 gm/ Sodium (Chloride) 200 mls @ 133.333 mls/hr IVPB Q24H [facility] PRN Reason: Protocol Last Admin: 01/28/18 05:52 Dose: 133.333 mls/hr Phenylephrine HCl 30 mg/ (Sodium Chloride) 253 mls @ 10.12 mls/hr IV .Q24H PRN ; Protocol; 20 MCG/MIN PRN Reason: TITRATE PER MD ORDER Last Admin: 01/28/18 03:04 Dose: 30 mcg/min, 15.18 mls/hr Metronidazole (Flagyl) 500 mg in 100 mls @ 100 mls/hr IVPB Q8 [facility] PRN Reason: Protocol Last Admin: 01/28/18 05:50 Dose: 100 mls/hr Lactated Ringer's (Lactated Ringer's) 1,000 mls @ 100 mls/hr IV .Q10H [facility] Last Admin: 01/27/18 21:54 Dose: Not Given Norepinephrine Bitartrate 4 mg (/ Sodium Chloride) 250 mls @ 15 mls/hr IV .[id number] PRN; Protocol; 4 MCG/MIN PRN Reason: TITRATE PER MD ORDER Pantoprazole Sodium 80 mg/ (Sodium Chloride) 100 mls @ 10 mls/hr IVPB .Q10H [facility] PRN Reason: 8 MG/HR Last Admin: 01/28/18 03:15 Dose: 10 mls/hr Insulin Aspart (Novolog) 0 unit SC Q6H [facility] PRN Reason: Protocol Last Admin: 01/28/18 00:22 Dose: Not Given Multivitamins (Hexavitamin) 1 tab PO DAILY [facility] Last Admin: 01/27/18 09:36 Dose: Not Given Rosuvastatin Calcium (Crestor) 20 mg PO HS [facility] Last Admin: 01/27/18 21:53 Dose: 20 mg - Labs Labs: 01/27/18 21:01 01/27/18 03:11 PT 15.5 SECONDS (9.7-12.2) H 01/27/18 03:11 INR 1.4 01/27/18 03:11 APTT 104 SECONDS (21-34) H* D 01/27/18 03:11 - Constitutional Appears: Non-toxic, No Acute Distress, Chronically Ill - Head Exam Head Exam: ATRAUMATIC - Eye Exam Eye Exam: absent: Scleral icterus - ENT Exam ENT Exam: Mucous Membranes Moist - Respiratory Exam Respiratory Exam: NORMAL BREATHING PATTERN. absent: Accessory Muscle Use, Respiratory Distress - Cardiovascular Exam Cardiovascular Exam: +S1, +S2. absent: Bradycardia, Tachycardia - GI/Abdominal Exam GI & Abdominal Exam: Guarding (voluntary guarding). absent: Distended, Firm, Rigid, Soft, Tenderness Additional comments: Incision C/D/I no signs of erythema or discharge - Neurological Exam Neurological Exam: Awake - Skin Skin Exam: Intact, Warm Assessment and Plan - Assessment and Plan (Free Text) Assessment: 77M w/ PE, chronic constipation, intra-abdominal abscess on CT Plan: - NPO - NGT to suction - monitor I/O - IR consult drainage of abscess - Monitor H/H; transfuse PRN - medical management for PE per primary and ICU team - d/w Dr. Villa surgical attending [facility] PGY1 <Fred Villa - Last Filed: 01/29/18 19:44> Objective - Vital Signs/Intake and Output Vital Signs (last 24 hours): Temp Pulse Resp BP Pulse Ox 98.6 F 97 H 17 128/69 99 01/29/18 16:00 01/29/18 19:00 01/29/18 19:00 01/29/18 18:45 01/29/18 19:00 Intake and Output: 01/29/18 01/30/18 18:59 06:59 Intake Total 1314 184 Output Total 610 40 Balance 704 144 - Medications Medications: Current Medications Hydrocortisone Sodium Succinate (Solu-Cortef) 50 mg IV Q12 [facility] Last Admin: 01/29/18 09:40 Dose: 50 mg Aztreonam 2 gm/ Sodium (Chloride) 100 mls @ 200 mls/hr IVPB Q8H [facility] PRN Reason: Protocol Last Admin: 01/29/18 11:59 Dose: 200 mls/hr Vancomycin HCl 1 gm/ Sodium (Chloride) 200 mls @ 133.333 mls/hr IVPB Q24H [facility] PRN Reason: Protocol Last Admin: 01/29/18 04:28 Dose: 133.333 mls/hr Phenylephrine HCl 30 mg/ (Sodium Chloride) 253 mls @ 10.12 mls/hr IV .Q24H PRN ; Protocol; 20 MCG/MIN PRN Reason: TITRATE PER MD ORDER Last Titration: 01/28/18 11:00 Dose: 10 mcg/min, 5.05 mls/hr Metronidazole (Flagyl) 500 mg in 100 mls @ 100 mls/hr IVPB Q8 [facility] PRN Reason: Protocol Last Admin: 01/29/18 13:14 Dose: 100 mls/hr Norepinephrine Bitartrate 4 mg (/ Sodium Chloride) 250 mls @ 15 mls/hr IV .[id number] PRN; Protocol; 4 MCG/MIN PRN Reason: TITRATE PER MD ORDER Multivitamins/Vitamin C 10 ml/Chromium/Copper/Manganese/Zinc 1 ml/ Insulin Human Regular 10 unit/ Amino Acids 1,011.1 mls @ 42.129 mls/hr IV .Q24H [facility] Stop: 01/30/18 17:59 Last Admin: 01/29/18 17:32 Dose: 42.129 mls/hr Fat Emulsion Intravenous (Intralipid 20%) 500 mls @ 42 mls/hr IV QOD [facility] Last Admin: 01/29/18 17:28 Dose: 42 mls/hr Insulin Aspart (Novolog) 0 unit SC Q6H [facility] PRN Reason: Protocol Last Admin: 01/29/18 18:31 Dose: 4 unit Multivitamins (Hexavitamin) 1 tab PO DAILY [facility] Last Admin: 01/29/18 09:39 Dose: 1 tab Pantoprazole Sodium (Protonix Inj) 40 mg IVP Q12 [facility] Last Admin: 01/29/18 09:39 Dose: 40 mg Rosuvastatin Calcium (Crestor) 20 mg PO HS [facility] Last Admin: 01/28/18 21:26 Dose: 20 mg - Labs Labs: 01/29/18 06:55 01/29/18 06:55 PT 15.5 SECONDS (9.7-12.2) H 01/27/18 03:11 INR 1.4 01/27/18 03:11 APTT 29 SECONDS (21-34) D 01/28/18 07:09 Attending/Attestation - Attestation I have fully participated in the care of the patient.: Yes I have reviewed all pertinent clinical information, including history, physical exam and plan: Yes Notes (Text): Pt is improving clinically IR drainage of abdominal collection in am c.w current mx Plan d.w primary team in detail.
[2018-01-28 07:13] LABS: BASO % 0.2 % (0.0-2.0); HEMOGLOBIN 8.5 g/dL (12.0-18.0); LYMPH % 7.9 % (20.0-40.0); MEAN CELL VOLUME 91.5 fL (80.0-94.0); MEAN CORPUSCULAR HGB CONC 32.7 g/dL (33.0-37.0); MEAN PLATELET VOLUME 9.5 fL (7.2-11.7); MONO # 0.4 K/uL (0.0-0.8); MONO % 3.2 % (0.0-10.0); NEUT # 11.4 K/uL (1.8-7.0); NEUT % 88.7 % (50.0-75.0); PLATELET COUNT 177 K/uL (130-400); RBC 2.82 Mil/uL (4.40-5.90); RED CELL DISTRIBUTION WIDTH 14.7 % (11.5-14.5); WHITE BLOOD COUNT 12.9 K/uL (4.8-10.8)
[2018-01-28 07:26] LABS: ALB/GLOB RATIO 0.9 (1.0-2.1); ALBUMIN 2.7 g/dL (3.5-5.0); ALT/SGPT 75 U/L (21-72); AST/SGOT 38 U/L (17-59); BLOOD UREA NITROGEN 55 mg/dL (9-20); GFR AFRICAN-AMERICAN > 60; GFR NON-AFRICAN AMERICAN > 60
[2018-01-28 08:50] LABS: ANISOCYTOSIS SLIGHT; BANDS 4 % (0-2); LYMPHOCYTE 3 % (20-40); MONOCYTE 2 % (0-10); NEUTROPHIL 91 % (50-75); PLATELET ESTIMATE NORMAL (NORMAL); TOTAL CELLS COUNTED 100
[2018-01-28 08:51] LABS: HYPOCHROMIC SLIGHT; LARGE PLATELETS PRESENT; POLYCHROMIC SLIGHT
[2018-01-28 08:53] LABS: GIANT PLATELETS PRESENT
[2018-01-28 08:54] LABS: TOXIC GRANULATION PRESENT
--- NOTE | 2018-01-28 09:43 | CP.PCM.PN ---
Subjective - Date & Time of Evaluation Date of Evaluation: 01/28/18 Time of Evaluation: 09:20 - Subjective Subjective: F/u GI bleed. Coffee grounds in NG time. BMs brown- no black stool. No vomiting, vomiting blood, RB, SZ, hematuria, hemoptysis, HOLLAND, tremor, myalgia , dysuria, diarrhea, constip Objective - Vital Signs/Intake and Output Vital Signs (last 24 hours): Temp Pulse Resp BP Pulse Ox 97.9 F 100 H 14 123/68 100 01/28/18 08:38 01/28/18 08:30 01/28/18 08:30 01/28/18 08:11 01/28/18 08:30 Intake and Output: 01/28/18 01/28/18 06:59 18:59 Intake Total 1853 370 Output Total 715 355 Balance 1138 15 - Medications Medications: Current Medications Aspirin (Ecotrin) 81 mg PO DAILY [facility] Last Admin: 01/27/18 11:44 Dose: Not Given Hydrocortisone Sodium Succinate (Solu-Cortef) 100 mg IV Q8H [facility] Last Admin: 01/28/18 05:51 Dose: 100 mg Hydromorphone HCl (Dilaudid) 0.5 mg IVP Q4H PRN PRN Reason: Pain, severe (8-10) Last Admin: 01/28/18 01:57 Dose: 0.5 mg Aztreonam 2 gm/ Sodium (Chloride) 100 mls @ 200 mls/hr IVPB Q8H [facility] PRN Reason: Protocol Last Admin: 01/28/18 04:45 Dose: 200 mls/hr Vancomycin HCl 1 gm/ Sodium (Chloride) 200 mls @ 133.333 mls/hr IVPB Q24H [facility] PRN Reason: Protocol Last Admin: 01/28/18 05:52 Dose: 133.333 mls/hr Phenylephrine HCl 30 mg/ (Sodium Chloride) 253 mls @ 10.12 mls/hr IV .Q24H PRN ; Protocol; 20 MCG/MIN PRN Reason: TITRATE PER MD ORDER Last Admin: 01/28/18 03:04 Dose: 30 mcg/min, 15.18 mls/hr Metronidazole (Flagyl) 500 mg in 100 mls @ 100 mls/hr IVPB Q8 [facility] PRN Reason: Protocol Last Admin: 01/28/18 05:50 Dose: 100 mls/hr Lactated Ringer's (Lactated Ringer's) 1,000 mls @ 100 mls/hr IV .Q10H [facility] Last Admin: 01/27/18 21:54 Dose: Not Given Norepinephrine Bitartrate 4 mg (/ Sodium Chloride) 250 mls @ 15 mls/hr IV .[id number] PRN; Protocol; 4 MCG/MIN PRN Reason: TITRATE PER MD ORDER Pantoprazole Sodium 80 mg/ (Sodium Chloride) 100 mls @ 10 mls/hr IVPB .Q10H [facility] PRN Reason: 8 MG/HR Last Admin: 01/28/18 03:15 Dose: 10 mls/hr Insulin Aspart (Novolog) 0 unit SC Q6H [facility] PRN Reason: Protocol Last Admin: 01/28/18 06:00 Dose: 8 unit Multivitamins (Hexavitamin) 1 tab PO DAILY [facility] Last Admin: 01/27/18 09:36 Dose: Not Given Rosuvastatin Calcium (Crestor) 20 mg PO HS [facility] Last Admin: 01/27/18 21:53 Dose: 20 mg - Labs Labs: 01/28/18 07:09 01/28/18 07:09 PT 15.5 SECONDS (9.7-12.2) H 01/27/18 03:11 INR 1.4 01/27/18 03:11 APTT 29 SECONDS (21-34) D 01/28/18 07:09 - Constitutional Appears: Confused - Neck Exam Neck Exam: absent: Tenderness - Respiratory Exam Respiratory Exam: Clear to Ausculation Bilateral - Cardiovascular Exam Cardiovascular Exam: RRR - GI/Abdominal Exam GI & Abdominal Exam: Soft, Tenderness, Normal Bowel Sounds. absent: Guarding, Mass, Rebound - Extremities Exam Extremities Exam: absent: Pedal Edema - Neurological Exam Neurological Exam: Alert, Awake. absent: Oriented x3 Assessment and Plan (1) Upper GI bleed Assessment & Plan: Coffee grounds. No melena. Stool brown. Does not seem like significant upper GI bleed. Likely gastritis. Transfused 2 units. Status: Acute (2) Constipation Assessment & Plan: Having BMs Status: Acute (3) Abdominal pain Assessment & Plan: GAstritis, abdominal collection, constipation Status: Acute (4) Hypotension (arterial) Status: Acute (5) Pulmonary embolism Assessment & Plan: Chest CT done Status: Acute (6) Acute non-ST elevation myocardial infarction (NSTEMI) Status: Acute (7) Diabetes mellitus Status: Acute (8) GERD (gastroesophageal reflux disease) Status: Acute (9) Perforated abdominal viscus Assessment & Plan: 1 mo ago- s/p surgery for ulcer Status: Acute (10) Sepsis associated hypotension Status: Acute (11) Status post exploratory laparotomy Status: Acute (12) Abnormal CT of the abdomen Assessment & Plan: upper abdomen collection. Consider abscess or blood collection. For tap. Status: Acute
[2018-01-28] MEDS: Lactated Ringer's 1,000 ML IV SCH ×3 (09:57→23:53)
[2018-01-28] MEDS: Multiple Vitamins Tab PO SCH (09:57)
[2018-01-28] MEDS ORDERED: Sodium Phosphate 15 MMOLE in Dextrose 5% In Water 250 ML IV SCH (16:30)
--- NOTE | 2018-01-28 16:34 | CP.CCUPN ---
CCU Subjective - Physician Review Subjective (Free Text): Patient seen and examined at bedside. Patient's abdominal pain better, tachycardia resolved and urine output good. Patient had multiple bowel movement with enema. 01/28/18 16:22 Critical Care Time Spent (in minutes): 35 CCU Objective - Vital Signs / Intake & Output Intake and Output (Last 8hrs): Intake & Output 01/28/18 01/28/18 01/28/18 06:59 14:59 22:59 Intake Total 1353 943 Output Total 500 545 Balance 853 398 Weight 121 lb 0.7 oz Intake: IV 253 103 Intake, IV Amount 1100 840 Right Medial Port Femoral 120 70 Right Proximal 1 900 700 Right Proximal 2 80 70 Output: Gastric Amount 175 Left Nares 175 Urine 500 370 Urethral (Paulson) 500 370 - Physical Exam Physical Exam Limitations: Positive for: Clinical Condition Head: Positive for: Atraumatic, Normocephalic Pupils: Positive for: PERRL Mouth: Positive for: Moist Mucous Membranes Neck: Positive for: Normal Range of Motion Cardiovascular: Positive for: Regular Rate and Rhythm, Normal S1, S2 Abdomen: Positive for: Normal Bowel Sounds. Negative for: Tenderness, Peritoneal Signs Upper Extremity: Positive for: Normal Inspection Lower Extremity: Positive for: Normal Inspection - Medications Active Medications: Active Medications Generic Name Dose Route Start Last Admin Trade Name Freq PRN Reason Stop Dose Admin Aspirin 81 mg 01/27/18 10:00 01/28/18 09:57 Ecotrin PO 81 mg DAILY [facility] Administration Hydrocortisone Sodium Succinate 100 mg 01/27/18 13:00 01/28/18 12:17 Solu-Cortef IV 100 mg Q8H [facility] Administration Hydromorphone HCl 0.5 mg 01/27/18 11:38 01/28/18 09:47 Dilaudid IVP 0.5 mg Q4H PRN Administration Pain, severe (8-10) Aztreonam 2 gm/ Sodium 100 mls @ 200 mls/hr 01/27/18 04:45 01/28/18 12:14 Chloride IVPB 200 mls/hr Q8H [facility] Administration Protocol Vancomycin HCl 1 gm/ Sodium 200 mls @ 133.333 mls/hr 01/27/18 05:00 01/28/18 05:52 Chloride IVPB 133.333 mls/hr Q24H [facility] Administration Protocol Phenylephrine HCl 30 mg/ 253 mls @ 10.12 mls/hr 01/27/18 06:45 01/28/18 08:00 Sodium Chloride IV 20 mcg/min .Q24H PRN 10.12 mls/hr TITRATE PER MD ORDER Titration Protocol 20 MCG/MIN Metronidazole 500 mg in 100 mls @ 100 mls/hr 01/27/18 14:00 01/28/18 05:50 Flagyl IVPB 100 mls/hr Q8 [facility] Administration Protocol Lactated Ringer's 1,000 mls @ 100 mls/hr 01/27/18 12:30 01/28/18 09:57 Lactated Ringer's IV 100 mls/hr .Q10H [facility] Administration Norepinephrine Bitartrate 4 mg 250 mls @ 15 mls/hr 01/27/18 13:00 / Sodium Chloride IV .[id number] PRN TITRATE PER MD ORDER Protocol 4 MCG/MIN Pantoprazole Sodium 80 mg/ 100 mls @ 10 mls/hr 01/28/18 03:15 01/28/18 12:17 Sodium Chloride IVPB 10 mls/hr .Q10H [facility] Administration 8 MG/HR Sodium Phosphate 15 mmole/ 255 mls @ 50 mls/hr 01/28/18 16:30 Dextrose IV 01/29/18 02:29 .Q5H6M [facility] Insulin Aspart 0 unit 01/28/18 00:00 01/28/18 12:15 Novolog SC 6 unit Q6H [facility] Administration Protocol Multivitamins 1 tab 01/27/18 10:00 01/28/18 09:57 Hexavitamin PO 1 tab DAILY [facility] Administration Rosuvastatin Calcium 20 mg 01/26/18 22:00 01/27/18 21:53 Crestor PO 20 mg HS [facility] Administration - Patient Studies Lab Studies: Microbiology Studies 01/27/18 08:57 Urine Culture - Final Urine,Catheterized No Growth (<1,000 CFU/ML) 01/27/18 07:09 MRSA Culture (Admit) - Final Nose MRSA NOT DETECTED 01/27/18 08:57 Blood Culture - Preliminary Blood-Venous NO GROWTH AFTER 24 HOURS 01/27/18 08:57 Blood Culture - Preliminary Blood-Venous NO GROWTH AFTER 24 HOURS Lab Studies 01/28/18 01/28/18 01/28/18 Range/Units 07:09 07:09 07:09 WBC (4.8-10.8) K/uL RBC (4.40-5.90) Mil/uL Hgb (12.0-18.0) g/dL Hct (35.0-51.0) % MCV (80.0-94.0) fL MCH (27.0-31.0) pg MCHC (33.0-37.0) g/dL RDW (11.5-14.5) % Plt Count (130-400) K/uL MPV (7.2-11.7) fL Neut % (Auto) (50.0-75.0) % Lymph % (Auto) (20.0-40.0) % Dundy % (Auto) (0.0-10.0) % Eos % (Auto) (0.0-4.0) % Baso % (Auto) (0.0-2.0) % Neut # (Auto) (1.8-7.0) K/uL Lymph # (Auto) (1.0-4.3) K/uL Dundy # (Auto) (0.0-0.8) K/uL Eos # (Auto) (0.0-0.7) K/uL Baso # (Auto) (0.0-0.2) K/uL Neutrophils % (Manual) (50-75) % Band Neutrophils % (0-2) % Lymphocytes % (Manual) (20-40) % Monocytes % (Manual) (0-10) % Toxic Granulation Platelet Estimate (NORMAL) Large Platelets Giant Platelets Polychromasia Hypochromasia (manual) Anisocytosis (manual) APTT (21-34) SECONDS Sodium (132-148) mmol/L Potassium (3.6-5.2) mmol/L Chloride (98-107) mmol/L Carbon Dioxide (22-30) mmol/L Anion Gap (10-20) BUN (9-20) mg/dL Creatinine (0.8-1.5) mg/dL Est GFR ( Amer) Est GFR (Non-Af Amer) Random Glucose (75-110) mg/dL Lactic Acid 0.7 (0.7-2.1) mmol/L Calcium (8.6-10.4) mg/dl Phosphorus 2.4 L (2.5-4.5) mg/dL Magnesium 1.9 (1.6-2.3) mg/dL Total Bilirubin (0.2-1.3) mg/dL AST (17-59) U/L ALT (21-72) U/L Alkaline Phosphatase (38-126) U/L Troponin I 0.5170 H* (0.00-0.120) ng/mL Total Protein (6.3-8.3) g/dL Albumin (3.5-5.0) g/dL Globulin (2.2-3.9) gm/dL Albumin/Globulin Ratio (1.0-2.1) 01/28/18 01/28/18 01/28/18 Range/Units 07:09 07:09 07:09 WBC 12.9 H (4.8-10.8) K/uL RBC 2.82 L (4.40-5.90) Mil/uL Hgb 8.5 L (12.0-18.0) g/dL Hct 25.8 L (35.0-51.0) % MCV 91.5 (80.0-94.0) fL MCH 30.0 (27.0-31.0) pg MCHC 32.7 L (33.0-37.0) g/dL RDW 14.7 H (11.5-14.5) % Plt Count 177 (130-400) K/uL MPV 9.5 (7.2-11.7) fL Neut % (Auto) 88.7 H (50.0-75.0) % Lymph % (Auto) 7.9 L (20.0-40.0) % Dundy % (Auto) 3.2 (0.0-10.0) % Eos % (Auto) 0.0 (0.0-4.0) % Baso % (Auto) 0.2 (0.0-2.0) % Neut # (Auto) 11.4 H (1.8-7.0) K/uL Lymph # (Auto) 1.0 (1.0-4.3) K/uL Dundy # (Auto) 0.4 (0.0-0.8) K/uL Eos # (Auto) 0.0 (0.0-0.7) K/uL Baso # (Auto) 0.0 (0.0-0.2) K/uL Neutrophils % (Manual) 91 H (50-75) % Band Neutrophils % 4 H (0-2) % Lymphocytes % (Manual) 3 L (20-40) % Monocytes % (Manual) 2 (0-10) % Toxic Granulation Present Platelet Estimate Normal (NORMAL) Large Platelets Present Giant Platelets Present Polychromasia Slight Hypochromasia (manual) Slight Anisocytosis (manual) Slight APTT 29 D (21-34) SECONDS Sodium 143 (132-148) mmol/L Potassium 5.2 (3.6-5.2) mmol/L Chloride 110 H (98-107) mmol/L Carbon Dioxide 25 (22-30) mmol/L Anion Gap 13 (10-20) BUN 55 H (9-20) mg/dL Creatinine 1.1 (0.8-1.5) mg/dL Est GFR ( Amer) > 60 Est GFR (Non-Af Amer) > 60 Random Glucose 136 H (75-110) mg/dL Lactic Acid (0.7-2.1) mmol/L Calcium 9.0 (8.6-10.4) mg/dl Phosphorus (2.5-4.5) mg/dL Magnesium (1.6-2.3) mg/dL Total Bilirubin 1.0 (0.2-1.3) mg/dL AST 38 (17-59) U/L ALT 75 H (21-72) U/L Alkaline Phosphatase 113 (38-126) U/L Troponin I (0.00-0.120) ng/mL Total Protein 5.7 L (6.3-8.3) g/dL Albumin 2.7 L (3.5-5.0) g/dL Globulin 3.0 (2.2-3.9) gm/dL Albumin/Globulin Ratio 0.9 L (1.0-2.1) 01/27/18 01/27/18 01/27/18 Range/Units 21:01 17:01 17:01 WBC 13.5 H (4.8-10.8) K/uL RBC 3.03 L (4.40-5.90) Mil/uL Hgb 9.2 L (12.0-18.0) g/dL Hct 27.4 L (35.0-51.0) % MCV 90.2 D (80.0-94.0) fL MCH 30.4 (27.0-31.0) pg MCHC 33.7 (33.0-37.0) g/dL RDW 14.3 (11.5-14.5) % Plt Count 171 (130-400) K/uL MPV 9.3 (7.2-11.7) fL Neut % (Auto) (50.0-75.0) % Lymph % (Auto) (20.0-40.0) % Dundy % (Auto) (0.0-10.0) % Eos % (Auto) (0.0-4.0) % Baso % (Auto) (0.0-2.0) % Neut # (Auto) (1.8-7.0) K/uL Lymph # (Auto) (1.0-4.3) K/uL Dundy # (Auto) (0.0-0.8) K/uL Eos # (Auto) (0.0-0.7) K/uL Baso # (Auto) (0.0-0.2) K/uL Neutrophils % (Manual) (50-75) % Band Neutrophils % (0-2) % Lymphocytes % (Manual) (20-40) % Monocytes % (Manual) (0-10) % Toxic Granulation Platelet Estimate (NORMAL) Large Platelets Giant Platelets Polychromasia Hypochromasia (manual) Anisocytosis (manual) APTT (21-34) SECONDS Sodium (132-148) mmol/L Potassium (3.6-5.2) mmol/L Chloride (98-107) mmol/L Carbon Dioxide (22-30) mmol/L Anion Gap (10-20) BUN (9-20) mg/dL Creatinine (0.8-1.5) mg/dL Est GFR ( Amer) Est GFR (Non-Af Amer) Random Glucose (75-110) mg/dL Lactic Acid 1.6 (0.7-2.1) mmol/L Calcium (8.6-10.4) mg/dl Phosphorus (2.5-4.5) mg/dL Magnesium (1.6-2.3) mg/dL Total Bilirubin (0.2-1.3) mg/dL AST (17-59) U/L ALT (21-72) U/L Alkaline Phosphatase (38-126) U/L Troponin I 0.4990 H* (0.00-0.120) ng/mL Total Protein (6.3-8.3) g/dL Albumin (3.5-5.0) g/dL Globulin (2.2-3.9) gm/dL Albumin/Globulin Ratio (1.0-2.1) Laboratory Results - last 24 hr 01/27/18 01/27/18 01/27/18 17:01 17:01 21:01 WBC 13.5 H RBC 3.03 L Hgb 9.2 L Hct 27.4 L MCV 90.2 D MCH 30.4 MCHC 33.7 RDW 14.3 Plt Count 171 MPV 9.3 Neut % (Auto) Lymph % (Auto) Dundy % (Auto) Eos % (Auto) Baso % (Auto) Neut # (Auto) Lymph # (Auto) Dundy # (Auto) Eos # (Auto) Baso # (Auto) Neutrophils % (Manual) Band Neutrophils % Lymphocytes % (Manual) Monocytes % (Manual) Toxic Granulation Platelet Estimate Large Platelets Giant Platelets Polychromasia Hypochromasia (manual) Anisocytosis (manual) APTT Sodium Potassium Chloride Carbon Dioxide Anion Gap BUN Creatinine Est GFR ( Amer) Est GFR (Non-Af Amer) Random Glucose Lactic Acid 1.6 Calcium Phosphorus Magnesium Total Bilirubin AST ALT Alkaline Phosphatase Troponin I 0.4990 H* Total Protein Albumin Globulin Albumin/Globulin Ratio 01/28/18 01/28/18 01/28/18 07:09 07:09 07:09 WBC 12.9 H RBC 2.82 L Hgb 8.5 L Hct 25.8 L MCV 91.5 MCH 30.0 MCHC 32.7 L RDW 14.7 H Plt Count 177 MPV 9.5 Neut % (Auto) 88.7 H Lymph % (Auto) 7.9 L Dundy % (Auto) 3.2 Eos % (Auto) 0.0 Baso % (Auto) 0.2 Neut # (Auto) 11.4 H Lymph # (Auto) 1.0 Dundy # (Auto) 0.4 Eos # (Auto) 0.0 Baso # (Auto) 0.0 Neutrophils % (Manual) 91 H Band Neutrophils % 4 H Lymphocytes % (Manual) 3 L Monocytes % (Manual) 2 Toxic Granulation Present Platelet Estimate Normal Large Platelets Present Giant Platelets Present Polychromasia Slight Hypochromasia (manual) Slight Anisocytosis (manual) Slight APTT 29 D Sodium 143 Potassium 5.2 Chloride 110 H Carbon Dioxide 25 Anion Gap 13 BUN 55 H Creatinine 1.1 Est GFR ( Amer) > 60 Est GFR (Non-Af Amer) > 60 Random Glucose 136 H Lactic Acid Calcium 9.0 Phosphorus Magnesium Total Bilirubin 1.0 AST 38 ALT 75 H Alkaline Phosphatase 113 Troponin I Total Protein 5.7 L Albumin 2.7 L Globulin 3.0 Albumin/Globulin Ratio 0.9 L 01/28/18 01/28/18 01/28/18 07:09 07:09 07:09 WBC RBC Hgb Hct MCV MCH MCHC RDW Plt Count MPV Neut % (Auto) Lymph % (Auto) Dundy % (Auto) Eos % (Auto) Baso % (Auto) Neut # (Auto) Lymph # (Auto) Dundy # (Auto) Eos # (Auto) Baso # (Auto) Neutrophils % (Manual) Band Neutrophils % Lymphocytes % (Manual) Monocytes % (Manual) Toxic Granulation Platelet Estimate Large Platelets Giant Platelets Polychromasia Hypochromasia (manual) Anisocytosis (manual) APTT Sodium Potassium Chloride Carbon Dioxide Anion Gap BUN Creatinine Est GFR ( Amer) Est GFR (Non-Af Amer) Random Glucose Lactic Acid 0.7 Calcium Phosphorus 2.4 L Magnesium 1.9 Total Bilirubin AST ALT Alkaline Phosphatase Troponin I 0.5170 H* Total Protein Albumin Globulin Albumin/Globulin Ratio Fingerstick Blood Sugar Results: 318 Review of Systems - Review of Systems Review of Systems: ROS reviewed, see subjective Assessment/Plan - Assessment and Plan (Free Text) Plan: 77 y/o amle with pmx of DM, PVD, h/o duodenal perforation s/p surgical correction presents to [facility] with abdominal pain and dx with incidental finding of pulmonary embolism. -Abdominal pain: suspect 2nd Upper Gi bleed, protoinx ggt, s/p 2 units PRBC transfusion, NPO, GI follow up, conservative measure -Sepsis: empirically rx with abx, lactic resolved with resusitation, titrate off pressors, CT reveals fluid collection, possible IR guided drainage -PE: Oxygen requirement low, nasal canula, obtain LE dopplers, if LE dopplers (+ ), offer IVC filter, currently given upper Gi bleed, Systemic AC is contraindicated, benefits of no-IV heparin more than IV heparin (Gastric bleeding) -NSTEMI: likely type II ID, hold asa and IV heparin (2nd Gi bleed), dig and verapail as BP tolerates -Anemia: s/p 2 units of PRBC infusion, monitor serial cbc to keep hb/hct > 8/24 -NPO -DVT ppx SCD -PUD ppx protonix continue to monitor d/w nursing - Date & Time Date: 01/28/18 Time: 16:34
--- NOTE | 2018-01-28 16:41 | CP.PCM.PN ---
Subjective - Date & Time of Evaluation Date of Evaluation: 01/28/18 Time of Evaluation: 15:30 - Subjective Subjective: patient seen and examined Response to vocal commands Afebrile On low-dose pressors Good urine output No more abdominal pain Status post transfusion of packed RBCs Possible IR drainage of abdominal fluid collection Continue IV antibiotics Patient oxygenating well and given small subsegmental defect on CT of abdomen and anemia there is no indication for full anticoagulation. Objective - Vital Signs/Intake and Output Vital Signs (last 24 hours): Temp Pulse Resp BP Pulse Ox 97.9 F 100 H 14 123/68 100 01/28/18 08:38 01/28/18 08:30 01/28/18 08:30 01/28/18 08:11 01/28/18 08:30 Intake and Output: 01/28/18 01/28/18 06:59 18:59 Intake Total 1853 943 Output Total 715 545 Balance 1138 398 - Medications Medications: Current Medications Hydrocortisone Sodium Succinate (Solu-Cortef) 100 mg IV Q8H [facility] Last Admin: 01/28/18 12:17 Dose: 100 mg Hydromorphone HCl (Dilaudid) 0.5 mg IVP Q4H PRN PRN Reason: Pain, severe (8-10) Last Admin: 01/28/18 09:47 Dose: 0.5 mg Aztreonam 2 gm/ Sodium (Chloride) 100 mls @ 200 mls/hr IVPB Q8H [facility] PRN Reason: Protocol Last Admin: 01/28/18 12:14 Dose: 200 mls/hr Vancomycin HCl 1 gm/ Sodium (Chloride) 200 mls @ 133.333 mls/hr IVPB Q24H [facility] PRN Reason: Protocol Last Admin: 01/28/18 05:52 Dose: 133.333 mls/hr Phenylephrine HCl 30 mg/ (Sodium Chloride) 253 mls @ 10.12 mls/hr IV .Q24H PRN ; Protocol; 20 MCG/MIN PRN Reason: TITRATE PER MD ORDER Last Titration: 01/28/18 08:00 Dose: 20 mcg/min, 10.12 mls/hr Metronidazole (Flagyl) 500 mg in 100 mls @ 100 mls/hr IVPB Q8 [facility] PRN Reason: Protocol Last Admin: 01/28/18 05:50 Dose: 100 mls/hr Lactated Ringer's (Lactated Ringer's) 1,000 mls @ 100 mls/hr IV .Q10H [facility] Last Admin: 01/28/18 09:57 Dose: 100 mls/hr Norepinephrine Bitartrate 4 mg (/ Sodium Chloride) 250 mls @ 15 mls/hr IV .[id number] PRN; Protocol; 4 MCG/MIN PRN Reason: TITRATE PER MD ORDER Pantoprazole Sodium 80 mg/ (Sodium Chloride) 100 mls @ 10 mls/hr IVPB .Q10H [facility] PRN Reason: 8 MG/HR Last Admin: 01/28/18 12:17 Dose: 10 mls/hr Sodium Phosphate 15 mmole/ (Dextrose) 255 mls @ 50 mls/hr IV .Q5H6M [facility] Stop: 01/29/18 02:29 Insulin Aspart (Novolog) 0 unit SC Q6H [facility] PRN Reason: Protocol Last Admin: 01/28/18 12:15 Dose: 6 unit Multivitamins (Hexavitamin) 1 tab PO DAILY [facility] Last Admin: 01/28/18 09:57 Dose: 1 tab Rosuvastatin Calcium (Crestor) 20 mg PO HS [facility] Last Admin: 01/27/18 21:53 Dose: 20 mg - Labs Labs: 01/28/18 07:09 01/28/18 07:09 PT 15.5 SECONDS (9.7-12.2) H 01/27/18 03:11 INR 1.4 01/27/18 03:11 APTT 29 SECONDS (21-34) D 01/28/18 07:09 Assessment and Plan (1) Hypotension (arterial) Status: Acute (2) Abdominal pain Status: Acute (3) Pulmonary embolism Status: Acute (4) Acute non-ST elevation myocardial infarction (NSTEMI) Status: Acute
--- NOTE | 2018-01-28 22:28 | CP.PCM.PN ---
Subjective - Date & Time of Evaluation Date of Evaluation: 01/28/18 Time of Evaluation: 18:45 - Subjective Subjective: Pt seen and examined at bedside Objective - Vital Signs/Intake and Output Vital Signs (last 24 hours): Temp Pulse Resp BP Pulse Ox 97.6 F 89 17 121/67 98 01/28/18 20:00 01/28/18 21:18 01/28/18 21:18 01/28/18 21:18 01/28/18 21:18 Intake and Output: 01/28/18 01/29/18 18:59 06:59 Intake Total 1653 510 Output Total 915 90 Balance 738 420 - Medications Medications: Current Medications Hydrocortisone Sodium Succinate (Solu-Cortef) 100 mg IV Q8H [facility] Last Admin: 01/28/18 20:14 Dose: 100 mg Hydromorphone HCl (Dilaudid) 0.5 mg IVP Q4H PRN PRN Reason: Pain, severe (8-10) Last Admin: 01/28/18 17:05 Dose: 0.5 mg Aztreonam 2 gm/ Sodium (Chloride) 100 mls @ 200 mls/hr IVPB Q8H [facility] PRN Reason: Protocol Last Admin: 01/28/18 20:06 Dose: 200 mls/hr Vancomycin HCl 1 gm/ Sodium (Chloride) 200 mls @ 133.333 mls/hr IVPB Q24H [facility] PRN Reason: Protocol Last Admin: 01/28/18 05:52 Dose: 133.333 mls/hr Phenylephrine HCl 30 mg/ (Sodium Chloride) 253 mls @ 10.12 mls/hr IV .Q24H PRN ; Protocol; 20 MCG/MIN PRN Reason: TITRATE PER MD ORDER Last Titration: 01/28/18 11:00 Dose: 10 mcg/min, 5.05 mls/hr Metronidazole (Flagyl) 500 mg in 100 mls @ 100 mls/hr IVPB Q8 [facility] PRN Reason: Protocol Last Admin: 01/28/18 21:27 Dose: 100 mls/hr Lactated Ringer's (Lactated Ringer's) 1,000 mls @ 100 mls/hr IV .Q10H [facility] Last Admin: 01/28/18 18:46 Dose: Not Given Norepinephrine Bitartrate 4 mg (/ Sodium Chloride) 250 mls @ 15 mls/hr IV .[id number] PRN; Protocol; 4 MCG/MIN PRN Reason: TITRATE PER MD ORDER Pantoprazole Sodium 80 mg/ (Sodium Chloride) 100 mls @ 10 mls/hr IVPB .Q10H [facility] PRN Reason: 8 MG/HR Last Admin: 01/28/18 12:17 Dose: 10 mls/hr Sodium Phosphate 15 mmole/ (Dextrose) 255 mls @ 50 mls/hr IV .Q5H6M [facility] Stop: 01/29/18 02:29 Last Admin: 01/28/18 17:04 Dose: 50 mls/hr Insulin Aspart (Novolog) 0 unit SC Q6H [facility] PRN Reason: Protocol Last Admin: 01/28/18 18:10 Dose: 6 unit Multivitamins (Hexavitamin) 1 tab PO DAILY [facility] Last Admin: 01/28/18 09:57 Dose: 1 tab Rosuvastatin Calcium (Crestor) 20 mg PO HS [facility] Last Admin: 01/28/18 21:26 Dose: 20 mg - Labs Labs: 01/28/18 07:09 01/28/18 07:09 PT 15.5 SECONDS (9.7-12.2) H 01/27/18 03:11 INR 1.4 01/27/18 03:11 APTT 29 SECONDS (21-34) D 01/28/18 07:09
[2018-01-28 23:00] LABS: BASO % 0.2 % (0.0-2.0); EOS % 0.1 % (0.0-4.0); LYMPH # 0.8 K/uL (1.0-4.3); LYMPH % 7.9 % (20.0-40.0); MEAN CELL VOLUME 90.3 fL (80.0-94.0); MEAN CORPUSCULAR HEMOGLOBIN 29.9 pg (27.0-31.0); MEAN CORPUSCULAR HGB CONC 33.1 g/dL (33.0-37.0); MEAN PLATELET VOLUME 8.8 fL (7.2-11.7); MONO # 0.4 K/uL (0.0-0.8); MONO % 3.7 % (0.0-10.0); NEUT # 8.8 K/uL (1.8-7.0); NEUT % 88.1 % (50.0-75.0); PLATELET COUNT 183 K/uL (130-400); RBC 2.67 Mil/uL (4.40-5.90); RED CELL DISTRIBUTION WIDTH 14.8 % (11.5-14.5); WHITE BLOOD COUNT 9.9 K/uL (4.8-10.8)
[2018-01-28 23:39] LABS: LYMPHOCYTE 4 % (20-40); MONOCYTE 3 % (0-10); NEUTROPHIL 93 % (50-75); TOTAL CELLS COUNTED 100
[2018-01-28 23:40] LABS: PLATELET ESTIMATE NORMAL (NORMAL)
[2018-01-28 23:41] LABS: ANISOCYTOSIS SLIGHT; OVALOCYTES SLIGHT; POIKILOCYTOSIS SLIGHT
[2018-01-29] MEDS: HYDROmorphone 0.5 mg/0.5 ml ISec IVP PRN (00:07)
[2018-01-29] MEDS: Aztreonam 2 GM in Sodium Chloride 0.9% 100 ML IVPB SCH ×3 (04:21→20:45)
[2018-01-29] MEDS: Vancomycin 1 GM in Sodium Chloride 0.9% 200 ML IVPB SCH (04:28)
[2018-01-29] MEDS: Lactated Ringer's 1,000 ML IV SCH ×3 (04:31→16:35)
[2018-01-29] MEDS: metroNIDAZOLE IV 500 mg/100 ml 500 MG/100 ML BAG IVPB SCH ×3 (05:25→21:36)
[2018-01-29] MEDS: (Novolog) Insulin Aspart, Recombinant 100 u/ml 10 ml vial SC SCH ×4 (05:35→18:31)
--- NOTE | 2018-01-29 06:57 | CP.PCM.PN ---
<Kobi Schwartz - Last Filed: 01/29/18 06:54> Subjective - Date & Time of Evaluation Date of Evaluation: 01/29/18 Time of Evaluation: 06:50 - Subjective Subjective: Surgery- Dr. Villa Patient seen and examined at bedside this AM. NGT in place w/ 275cc of bilious output. Unable to obtain ROS due to mental status. Objective - Vital Signs/Intake and Output Vital Signs (last 24 hours): Temp Pulse Resp BP Pulse Ox 97.7 F 88 18 121/67 100 01/29/18 04:00 01/29/18 04:00 01/29/18 04:00 01/28/18 21:18 01/29/18 04:00 Intake and Output: 01/28/18 01/29/18 18:59 06:59 Intake Total 1653 1250 Output Total 915 375 Balance 738 875 - Medications Medications: Current Medications Hydrocortisone Sodium Succinate (Solu-Cortef) 100 mg IV Q8H [facility] Last Admin: 01/29/18 04:30 Dose: 100 mg Hydromorphone HCl (Dilaudid) 0.5 mg IVP Q4H PRN PRN Reason: Pain, severe (8-10) Last Admin: 01/29/18 00:07 Dose: 0.5 mg Aztreonam 2 gm/ Sodium (Chloride) 100 mls @ 200 mls/hr IVPB Q8H [facility] PRN Reason: Protocol Last Admin: 01/29/18 04:21 Dose: 200 mls/hr Vancomycin HCl 1 gm/ Sodium (Chloride) 200 mls @ 133.333 mls/hr IVPB Q24H [facility] PRN Reason: Protocol Last Admin: 01/29/18 04:28 Dose: 133.333 mls/hr Phenylephrine HCl 30 mg/ (Sodium Chloride) 253 mls @ 10.12 mls/hr IV .Q24H PRN ; Protocol; 20 MCG/MIN PRN Reason: TITRATE PER MD ORDER Last Titration: 01/28/18 11:00 Dose: 10 mcg/min, 5.05 mls/hr Metronidazole (Flagyl) 500 mg in 100 mls @ 100 mls/hr IVPB Q8 [facility] PRN Reason: Protocol Last Admin: 01/29/18 05:25 Dose: 100 mls/hr Lactated Ringer's (Lactated Ringer's) 1,000 mls @ 100 mls/hr IV .Q10H [facility] Last Admin: 01/29/18 04:31 Dose: Not Given Norepinephrine Bitartrate 4 mg (/ Sodium Chloride) 250 mls @ 15 mls/hr IV .[id number] PRN; Protocol; 4 MCG/MIN PRN Reason: TITRATE PER MD ORDER Pantoprazole Sodium 80 mg/ (Sodium Chloride) 100 mls @ 10 mls/hr IVPB .Q10H [facility] PRN Reason: 8 MG/HR Last Admin: 01/28/18 23:48 Dose: 10 mls/hr Insulin Aspart (Novolog) 0 unit SC Q6H [facility] PRN Reason: Protocol Last Admin: 01/29/18 05:35 Dose: 8 unit Multivitamins (Hexavitamin) 1 tab PO DAILY [facility] Last Admin: 01/28/18 09:57 Dose: 1 tab Rosuvastatin Calcium (Crestor) 20 mg PO HS [facility] Last Admin: 01/28/18 21:26 Dose: 20 mg - Labs Labs: 01/28/18 22:58 01/28/18 07:09 PT 15.5 SECONDS (9.7-12.2) H 01/27/18 03:11 INR 1.4 01/27/18 03:11 APTT 29 SECONDS (21-34) D 01/28/18 07:09 - Constitutional Appears: No Acute Distress, Chronically Ill - Head Exam Head Exam: ATRAUMATIC - Eye Exam Eye Exam: absent: Scleral icterus - ENT Exam ENT Exam: Mucous Membranes Moist - Respiratory Exam Respiratory Exam: NORMAL BREATHING PATTERN. absent: Accessory Muscle Use, Respiratory Distress - Cardiovascular Exam Cardiovascular Exam: +S1, +S2. absent: Bradycardia, Tachycardia - GI/Abdominal Exam GI & Abdominal Exam: Soft, Tenderness (patient would moan during abdominal examination. Unable to specfically identify if patient has a tender abdomen). absent: Distended, Firm, Guarding, Rigid, Rebound - Extremities Exam Extremities Exam: absent: Calf Tenderness - Neurological Exam Neurological Exam: Awake - Skin Skin Exam: Intact, Warm Assessment and Plan - Assessment and Plan (Free Text) Assessment: 77M w/ PE and intra-abdominal abscess Plan: - IR consult for intra-abdominal abscess- all recs appreciated - monitor H/H - transfue PRN - medical management per primary and ICU team - no acute surgical intervention at this time - will follow - further recs [facility] Dr[facility]Y1 <Fred Villa - Last Filed: 01/29/18 20:05> Objective - Vital Signs/Intake and Output Vital Signs (last 24 hours): Temp Pulse Resp BP Pulse Ox 98.6 F 97 H 17 128/69 99 01/29/18 16:00 01/29/18 19:00 01/29/18 19:00 01/29/18 18:45 01/29/18 19:00 Intake and Output: 01/29/18 01/30/18 18:59 06:59 Intake Total 1314 184 Output Total 610 40 Balance 704 144 - Medications Medications: Current Medications Hydrocortisone Sodium Succinate (Solu-Cortef) 50 mg IV Q12 [facility] Last Admin: 01/29/18 09:40 Dose: 50 mg Aztreonam 2 gm/ Sodium (Chloride) 100 mls @ 200 mls/hr IVPB Q8H [facility] PRN Reason: Protocol Last Admin: 01/29/18 11:59 Dose: 200 mls/hr Vancomycin HCl 1 gm/ Sodium (Chloride) 200 mls @ 133.333 mls/hr IVPB Q24H [facility] PRN Reason: Protocol Last Admin: 01/29/18 04:28 Dose: 133.333 mls/hr Phenylephrine HCl 30 mg/ (Sodium Chloride) 253 mls @ 10.12 mls/hr IV .Q24H PRN ; Protocol; 20 MCG/MIN PRN Reason: TITRATE PER MD ORDER Last Titration: 01/28/18 11:00 Dose: 10 mcg/min, 5.05 mls/hr Metronidazole (Flagyl) 500 mg in 100 mls @ 100 mls/hr IVPB Q8 [facility] PRN Reason: Protocol Last Admin: 01/29/18 13:14 Dose: 100 mls/hr Norepinephrine Bitartrate 4 mg (/ Sodium Chloride) 250 mls @ 15 mls/hr IV .[id number] PRN; Protocol; 4 MCG/MIN PRN Reason: TITRATE PER MD ORDER Multivitamins/Vitamin C 10 ml/Chromium/Copper/Manganese/Zinc 1 ml/ Insulin Human Regular 10 unit/ Amino Acids 1,011.1 mls @ 42.129 mls/hr IV .Q24H [facility] Stop: 01/30/18 17:59 Last Admin: 01/29/18 17:32 Dose: 42.129 mls/hr Fat Emulsion Intravenous (Intralipid 20%) 500 mls @ 42 mls/hr IV QOD [facility] Last Admin: 01/29/18 17:28 Dose: 42 mls/hr Insulin Aspart (Novolog) 0 unit SC Q6H [facility] PRN Reason: Protocol Last Admin: 01/29/18 18:31 Dose: 4 unit Multivitamins (Hexavitamin) 1 tab PO DAILY [facility] Last Admin: 01/29/18 09:39 Dose: 1 tab Pantoprazole Sodium (Protonix Inj) 40 mg IVP Q12 [facility] Last Admin: 01/29/18 09:39 Dose: 40 mg Rosuvastatin Calcium (Crestor) 20 mg PO HS [facility] Last Admin: 01/28/18 21:26 Dose: 20 mg - Labs Labs: 01/29/18 06:55 01/29/18 06:55 PT 15.5 SECONDS (9.7-12.2) H 01/27/18 03:11 INR 1.4 01/27/18 03:11 APTT 29 SECONDS (21-34) D 01/28/18 07:09 Attending/Attestation - Attestation I have personally seen and examined this patient.: Yes I have fully participated in the care of the patient.: Yes I have reviewed all pertinent clinical information, including history, physical exam and plan: Yes Notes (Text): Pt was seen and examined at bedside Agree with above note and assessment Pt is improving clinically Awaiting IR drainage of collection C/w current mx IV antibiotics Plan d.w pt in detail.
[2018-01-29 07:03] LABS: BASO % 0.1 % (0.0-2.0); HEMOGLOBIN 8.3 g/dL (12.0-18.0); LYMPH # 1.2 K/uL (1.0-4.3); LYMPH % 12.2 % (20.0-40.0); MEAN CELL VOLUME 91.3 fL (80.0-94.0); MEAN PLATELET VOLUME 9.2 fL (7.2-11.7); MONO # 0.4 K/uL (0.0-0.8); MONO % 3.7 % (0.0-10.0); NEUT # 8.1 K/uL (1.8-7.0); NRBC % 0.1 % (0.0-2.0); RBC 2.67 Mil/uL (4.40-5.90); RED CELL DISTRIBUTION WIDTH 15.1 % (11.5-14.5); WHITE BLOOD COUNT 9.6 K/uL (4.8-10.8)
[2018-01-29 07:40] LABS: ALB/GLOB RATIO 0.8 (1.0-2.1); ALT/SGPT 61 U/L (21-72); AST/SGOT 23 U/L (17-59); BLOOD UREA NITROGEN 45 mg/dL (9-20); CALCIUM 9.5 mg/dl (8.6-10.4); GFR AFRICAN-AMERICAN > 60; GFR NON-AFRICAN AMERICAN > 60
--- NOTE | 2018-01-29 08:00 | CP.PCM.CON ---
History of Present Illness - History of Present Illness History of Present Illness: I was asked to see patient by Dr aguila. Patient is a 77 year old male with PNHHTn hypercholestrolemia, CAD who presents with tachycardia and hypotension. He had a previous duodenal perforeation, s/p surgery. He had a post op NSTEMI. he was found to have multivessel CAD, but will require medical therapy as he is not a candidate for CABG. He currently has a NGT in place. Review of Systems - Constitutional Constitutional: absent: As Per HPI, Anorexia, Chills, Daytime Sleepiness, Excessive Sweating, Fatigue, Fever, Frequent Falls, Headache, Increased Appetite , Lethargy, Malaise, Night Sweats, Snoring, Sleep Apnea, Weight Gain, Weight Loss, Weakness, Other - EENT Eyes: absent: As Per HPI, Blind Spots, Blurred Vision, Change in Vision, Decreased Night Vision, Diplopia, Discharge, Dry Eye, Exophthalmos, Floaters, Irritation, Itchy Eyes, Loss of Peripheral Vision, Pain, Photophobia, Requires Corrective Lenses, Sees Flashes, Spots in Vision, Tunnel Vision, Other Visual Disturbances, Loss of Vision, Other Ears: absent: As Per HPI, Decreased Hearing, Ear Discharge, Ear Pain, Tinnitus, Abnormal Hearing, Disequilibrium, Dizziness, Other Nose/Mouth/Throat: absent: As Per HPI, Epistaxis, Nasal Congestion, Nasal Discharge, Nasal Obstruction, Nasal Trauma, Nose Pain, Post Nasal Drip, Sinus Pain, Sinus Pressure, Bleeding Gums, Change in Voice, Dental Pain, Dry Mouth, Dysphagia, Halitosis, Hoarsness, Lip Swelling, Mouth Lesions, Mouth Pain, Odynophagia, Sore Throat, Throat Swelling, Tongue Swelling, Facial Pain, Neck Pain, Neck Mass, Other - Cardiovascular Cardiovascular: absent: As Per HPI, Acrocyanosis, Chest Pain, Chest Pain at Rest , Chest Pain with Activity, Claudication, Diaphoresis, Dyspnea, Dyspnea on Exertion, Edema, Irregular Heart Rhythm, Pain Radiating to Arm/Neck/Jaw, Leg Edema, Leg Ulcers, Lightheadedness, Orthopnea, Palpitations, Paroxysmal Nocturnal Dyspnea, Pedal Edema, Radiating Pain, Rapid Heart Rate, Slow Heart Rate, Syncope, Other - Respiratory Respiratory: absent: As Per HPI, Cough, Dyspnea, Hemoptysis, Dyspnea on Exertion , Wheezing, Snoring, Stridor, Pain on Inspiration, Chest Congestion, Excessive Mucous Production, Change in Mucous Color, Pain with Coughing, Other - Gastrointestinal Gastrointestinal: Abdominal Pain - Genitourinary Genitourinary: absent: As Per HPI, Change in Urinary Stream, Difficulty Urinating, Dysuria, Flank Pain, Hematuria, Pyuria, Nocturia, Urinary Incontinence, Urinary Frequency, Urinary Hesitance, Urinary Urgency, Voiding Freq/Small Amts, Freq UTI, Hx Renal/Bladder Calculi, Hx /Renal Surgery, Bladder Distension, Other - Musculoskeletal Musculoskeletal: absent: As Per HPI, Abnormal Gait, Arthralgias, Atrophy, Back Pain, Deformity, Joint Swelling, Limited Range of Motion, Loss of Height, Muscle Cramps, Muscle Weakness, Myalgias, Neck Pain, Numbness, Radiating Pain into Limb, Stiffness, Tingling, Other - Integumentary Integumentary: absent: As Per HPI, Acne, Alopecia, Bleeding Lesions, Change in Hair, Change in Nails, Change in Pigmentation, Changing Lesions, Dry Skin, Erythema, Furuncle, Hirsutism, Lesions, New Lesions, Non-Healing Lesions, Photosensitivity, Pruritus, Rash, Skin Pain, Skin Ulcer, Sores, Striae, Swelling , Unusual Bruising, Wounds, Jaundice, Other - Neurological Neurological: absent: As Per HPI, Abnormal Gait, Abnormal Hearing, Abnormal Movements, Abnormal Speech, Behavioral Changes, Burning Sensations, Confusion, Convulsions, Disequilibrium, Dizziness, Numbness, Focal Weakness, Frequent Falls , Headaches, Lack of Coordination, Loss of Vision, Memory Loss, Paresthesias, Radicular Pain, Restless Legs, Sensory Deficit, Syncope, Tingling, Tremor, Vertigo, Weakness, Other Visual Disturbances, Other - Psychiatric Psychiatric: absent: As Per HPI, Abnormal Sleep Pattern, Anhedonia, Anxiety, Auditory Hallucinations, Behavioral Changes, Change in Appetite, Change in Libido, Confusion, Depression, Difficulty Concentrating, Hallucinations, Homicidal Ideation, Hopelessness, Irritability, Memory Loss, Mood Swings, Panic Attacks, Paranoia, Suicidal Ideation, Visual Hallucinations, Tactile Hallucinations, Other - Endocrine Endocrine: absent: As Per HPI, Change in Body Appearance, Change in Libido, Cold Intolorance, Deepening of Voice, Excessive Sweating, Fatigue, Flushing, Heat Intolorance, Increase in Ring/Shoe/Hat Size, Palpitations, Polydipsia, Polyphagia, Polyuria, Other - Hematologic/Lymphatic Hematologic: absent: As Per HPI, Easy Bleeding, Easy Bruising, Lymphadenopathy, Other Past Patient History - Infectious Disease Hx of Infectious Diseases: None - Past Medical History & Family History Past Medical History?: Yes - Past Social History Smoking Status: Former Smoker - CARDIAC Hx Hypercholesterolemia: Yes Hx Hypertension: Yes - PULMONARY Hx Respiratory Disorders: No - NEUROLOGICAL Hx Neurological Disorder: Yes Hx Syncope: Yes - HEENT Hx HEENT Problems: No - RENAL Hx Chronic Kidney Disease: No - ENDOCRINE/METABOLIC Hx Diabetes Mellitus Type 2: Yes - HEMATOLOGICAL/ONCOLOGICAL Hx Blood Disorders: No - INTEGUMENTARY Hx Dermatological Problems: No - MUSCULOSKELETAL/RHEUMATOLOGICAL Hx Falls: No - GASTROINTESTINAL Hx Gastrointestinal Disorders: Yes Hx Gastroesophageal Reflux: Yes - GENITOURINARY/GYNECOLOGICAL Hx Genitourinary Disorders: No - PSYCHIATRIC Hx Substance Use: No - SURGICAL HISTORY Hx Surgeries: Yes Other/Comment: left knee replacement, and left nerve repair, left and right hand nerve repair, Exp.Lap 12/22/17, - ANESTHESIA Hx Anesthesia: Yes Hx Anesthesia Reactions: No Hx Malignant Hyperthermia: No Has any member of the family had a problem w/ anesthesia?: No Meds Allergies/Adverse Reactions: Allergies Allergy/AdvReac Type Severity Reaction Status Date / Time Penicillins Allergy Mild Verified 01/26/18 15:08 - Medications Medications: Current Medications Hydrocortisone Sodium Succinate (Solu-Cortef) 100 mg IV Q8H [facility] Last Admin: 01/29/18 04:30 Dose: 100 mg Hydromorphone HCl (Dilaudid) 0.5 mg IVP Q4H PRN PRN Reason: Pain, severe (8-10) Last Admin: 01/29/18 00:07 Dose: 0.5 mg Aztreonam 2 gm/ Sodium (Chloride) 100 mls @ 200 mls/hr IVPB Q8H [facility] PRN Reason: Protocol Last Admin: 01/29/18 04:21 Dose: 200 mls/hr Vancomycin HCl 1 gm/ Sodium (Chloride) 200 mls @ 133.333 mls/hr IVPB Q24H [facility] PRN Reason: Protocol Last Admin: 01/29/18 04:28 Dose: 133.333 mls/hr Phenylephrine HCl 30 mg/ (Sodium Chloride) 253 mls @ 10.12 mls/hr IV .Q24H PRN ; Protocol; 20 MCG/MIN PRN Reason: TITRATE PER MD ORDER Last Titration: 01/28/18 11:00 Dose: 10 mcg/min, 5.05 mls/hr Metronidazole (Flagyl) 500 mg in 100 mls @ 100 mls/hr IVPB Q8 [facility] PRN Reason: Protocol Last Admin: 01/29/18 05:25 Dose: 100 mls/hr Lactated Ringer's (Lactated Ringer's) 1,000 mls @ 100 mls/hr IV .Q10H [facility] Last Admin: 01/29/18 04:31 Dose: Not Given Norepinephrine Bitartrate 4 mg (/ Sodium Chloride) 250 mls @ 15 mls/hr IV .[id number] PRN; Protocol; 4 MCG/MIN PRN Reason: TITRATE PER MD ORDER Pantoprazole Sodium 80 mg/ (Sodium Chloride) 100 mls @ 10 mls/hr IVPB .Q10H [facility] PRN Reason: 8 MG/HR Last Admin: 01/28/18 23:48 Dose: 10 mls/hr Insulin Aspart (Novolog) 0 unit SC Q6H [facility] PRN Reason: Protocol Last Admin: 01/29/18 05:35 Dose: 8 unit Multivitamins (Hexavitamin) 1 tab PO DAILY [facility] Last Admin: 01/28/18 09:57 Dose: 1 tab Rosuvastatin Calcium (Crestor) 20 mg PO HS [facility] Last Admin: 01/28/18 21:26 Dose: 20 mg Physical Exam - Constitutional Appears: Chronically Ill - Head Exam Head Exam: NORMAL INSPECTION - Eye Exam Eye Exam: Normal appearance - ENT Exam ENT Exam: Mucous Membranes Moist - Neck Exam Neck exam: Positive for: Normal Inspection - Respiratory Exam Respiratory Exam: Decreased Breath Sounds - Cardiovascular Exam Cardiovascular Exam: REGULAR RHYTHM - GI/Abdominal Exam GI & Abdominal Exam: Hypoactive Bowel Sounds - Rectal Exam Rectal Exam: Deferred - Extremities Exam Extremities exam: Negative for: pedal edema - Back Exam Back exam: NORMAL INSPECTION - Neurological Exam Neurological exam: Alert - Skin Skin Exam: Normal Color Results - Vital Signs Recent Vital Signs: Last Vital Signs Temp 97.7 F 01/29/18 04:00 Pulse 88 01/29/18 04:00 Resp 18 01/29/18 04:00 BP 121/67 01/28/18 21:18 Pulse Ox 100 05/21/18 04:00 - Labs Result Diagrams: 01/29/18 06:55 01/29/18 06:55 Labs: Laboratory Results - last 24 hr 01/28/18 01/28/18 01/28/18 07:09 07:09 22:58 WBC 9.9 RBC 2.67 L Hgb 8.0 L Hct 24.1 L MCV 90.3 MCH 29.9 MCHC 33.1 RDW 14.8 H Plt Count 183 MPV 8.8 Neut % (Auto) 88.1 H Lymph % (Auto) 7.9 L [place] % (Auto) 3.7 Eos % (Auto) 0.1 Baso % (Auto) 0.2 Neut # (Auto) 8.8 H Lymph # (Auto) 0.8 L [place] # (Auto) 0.4 Eos # (Auto) 0.0 Baso # (Auto) 0.0 Neutrophils % (Manual) 91 H 93 H Band Neutrophils % 4 H Lymphocytes % (Manual) 3 L 4 L Monocytes % (Manual) 2 3 Toxic Granulation Present Platelet Estimate Normal Normal Large Platelets Present Giant Platelets Present Polychromasia Slight Hypochromasia (manual) Slight Poikilocytosis (manual Slight Anisocytosis (manual) Slight Slight Ovalocytes Slight APTT 29 D Sodium Potassium Chloride Carbon Dioxide Anion Gap BUN Creatinine Est GFR ( Amer) Est GFR (Non-Af Amer) Random Glucose Calcium Phosphorus Magnesium Total Bilirubin AST ALT Alkaline Phosphatase Total Protein Albumin Globulin Albumin/Globulin Ratio 01/29/18 01/29/18 06:55 06:55 WBC 9.6 RBC 2.67 L Hgb 8.3 L Hct 24.3 L MCV 91.3 MCH 31.0 MCHC 34.0 RDW 15.1 H Plt Count 185 MPV 9.2 Neut % (Auto) 84.0 H Lymph % (Auto) 12.2 L [place] % (Auto) 3.7 Eos % (Auto) 0.0 Baso % (Auto) 0.1 Neut # (Auto) 8.1 H Lymph # (Auto) 1.2 [place] # (Auto) 0.4 Eos # (Auto) 0.0 Baso # (Auto) 0.0 Neutrophils % (Manual) Band Neutrophils % Lymphocytes % (Manual) Monocytes % (Manual) Toxic Granulation Platelet Estimate Large Platelets Giant Platelets Polychromasia Hypochromasia (manual) Poikilocytosis (manual Anisocytosis (manual) Ovalocytes APTT Sodium 145 Potassium 3.6 Chloride 114 H Carbon Dioxide 20 L Anion Gap 15 BUN 45 H Creatinine 1.0 Est GFR ( Amer) > 60 Est GFR (Non-Af Amer) > 60 Random Glucose 273 H Calcium 9.5 Phosphorus 4.2 Magnesium 1.6 Total Bilirubin 0.4 AST 23 ALT 61 Alkaline Phosphatase 90 Total Protein 4.6 L Albumin 2.0 L D Globulin 2.6 Albumin/Globulin Ratio 0.8 L - EKG Data EKG Interpreted by: Myself Assessment & Plan (1) CAD (coronary artery disease) Assessment and Plan: medical therapy. patient is not a candidate for CABG. supportive care. betablocker as blood pressure permits. Status: Acute
--- NOTE | 2018-01-29 09:16 | VASCLAB ---
PROCEDURE: Lower Extremity Venous Duplex Exam. HISTORY: r/o DVT B/L LE Kingsley, Resp failure/Sepsis PRIORS: None. TECHNIQUE: Bilateral common femoral, femoral, popliteal and posterior tibial, peroneal and great saphenous veins were evaluated. Flow was assessed with color Doppler, compressibility, assessment of phasic flow and augmentation response. Report prepared by Aly Smyth, T FINDINGS: RIGHT: 1. Common Femoral Vein: 1.1. Compressibility - : Thrombus - : Flow - : Augmentation -: Reflux - . 2. Femoral Vein: 2.1. Compressibility - Fully compressible: Thrombus - None : Flow - Phasic: Augmentation -Normal: Reflux - . 3. Popliteal Vein: 3.1. Compressibility - Fully compressible: Thrombus - None : Flow - Phasic: Augmentation -Normal: Reflux - . 4. Posterior Tibial Vein: 4.1. Compressibility - Fully compressible: Thrombus - None: Flow - : Augmentation -: Reflux - . 5. Peroneal Vein: 5.1. Compressibility - Fully compressible: Thrombus - None: Flow - : Augmentation -: Reflux - . 6. Great Saphenous Vein: 6.1. Compressibility - Fully compressible: Thrombus - None: Flow - Phasic: Augmentation - l: Reflux - . LEFT: 1. Common Femoral Vein: 1.1. Compressibility - Fully compressible: Thrombus - None: Flow - Phasic: Augmentation -Normal: Reflux - . 2. Femoral Vein: 2.1. Compressibility - Fully compressible: Thrombus - None: Flow - Phasic: Augmentation -Normal: Reflux - . 3. Popliteal Vein: 3.1. Compressibility - Fully compressible: Thrombus - None : Flow - Phasic: Augmentation -Normal: Reflux - . 4. Posterior Tibial Vein: 4.1. Compressibility - Fully compressible: Thrombus - None: Flow - : Augmentation -: Reflux - . 5. Peroneal Vein: 5.1. Compressibility - Fully compressible: Thrombus - None: Flow - : Augmentation -: Reflux - . 6. Great Saphenous Vein: 6.1. Compressibility - Fully compressible: Thrombus - None: Flow - Phasic: Augmentation - : Reflux - . OTHER FINDINGS: Right: None significant. Left: None significant. IMPRESSION: Right: The common femoral vein and the sapheno-femoral junction were not evaluated due to central IV line in place. Limited Study. No evidence of deep or superficial vein thrombosis for those clearly visualized veins in the right lower extremity. Left: No evidence of deep or superficial vein thrombosis of the left lower extremity.
--- NOTE | 2018-01-29 09:29 | PCM.IRP ---
History of Present Illness - History of Present Illness History of Present Illness: IR consulted for abdominal fluid collection. CT reviewed. Peripancreatic fluid collection measured 7 cm x 4 cm on 12/24/2017. It currently measures 6 x 1. 5cm. The small peripancreatic fluid collection is not amenable to percutaneous drainage. Objective - Vital Signs/Intake and Output Vital Signs (last 24 hours): Vital Signs - 24 hr 01/28/18 01/28/18 01/28/18 12:48 13:00 13:17 Temperature 97.4 F L Pulse Rate 93 H 94 H 101 H Respiratory 11 L 15 19 Rate Blood Pressure 87/46 L O2 Sat by Pulse 98 100 97 Oximetry 01/28/18 01/28/18 01/28/18 13:22 13:48 14:00 Temperature Pulse Rate 97 H 102 H 94 H Respiratory 16 10 L 12 Rate Blood Pressure 100/40 L 90/44 L O2 Sat by Pulse 98 98 96 Oximetry 01/28/18 01/28/18 01/28/18 14:18 14:41 14:47 Temperature Pulse Rate 95 H 85 87 Respiratory 11 L 10 L 11 L Rate Blood Pressure 83/44 L 85/43 L 88/48 L O2 Sat by Pulse 99 99 98 Oximetry 01/28/18 01/28/18 01/28/18 14:53 15:00 15:18 Temperature Pulse Rate 89 87 93 H Respiratory 10 L 11 L 12 Rate Blood Pressure 89/46 L 126/75 O2 Sat by Pulse 97 100 Oximetry 01/28/18 01/28/18 01/28/18 15:48 16:00 16:18 Temperature Pulse Rate 84 95 H 96 H Respiratory 16 18 17 Rate Blood Pressure 122/61 96/54 L O2 Sat by Pulse 92 L 100 100 Oximetry 01/28/18 01/28/18 01/28/18 16:48 17:00 17:18 Temperature 97.4 F L Pulse Rate 95 H 94 H 93 H Respiratory 19 22 12 Rate Blood Pressure 106/61 111/60 O2 Sat by Pulse 98 96 100 Oximetry 01/28/18 01/28/18 01/28/18 17:48 18:00 18:18 Temperature Pulse Rate 88 88 91 H Respiratory 10 L 10 L 11 L Rate Blood Pressure 99/60 L 107/69 O2 Sat by Pulse 98 96 98 Oximetry 01/28/18 01/28/18 01/28/18 18:48 19:00 19:18 Temperature Pulse Rate 88 89 88 Respiratory 10 L 11 L 10 L Rate Blood Pressure 119/65 107/62 O2 Sat by Pulse 94 L 93 L 96 Oximetry 01/28/18 01/28/18 01/28/18 19:48 20:00 20:18 Temperature 97.6 F Pulse Rate 84 87 Respiratory 10 L 15 Rate Blood Pressure 105/53 L 111/63 O2 Sat by Pulse 98 100 Oximetry 01/28/18 01/28/18 01/29/18 20:48 21:18 00:00 Temperature 97.3 F L Pulse Rate 89 88 Respiratory 17 15 Rate Blood Pressure 114/57 L 121/67 O2 Sat by Pulse 98 100 Oximetry 01/29/18 01/29/18 04:00 08:00 Temperature 97.7 F 97.6 F Pulse Rate 88 95 H Respiratory 18 18 Rate Blood Pressure O2 Sat by Pulse 100 99 Oximetry Intake and Output (last 12 hours): Intake & Output 01/28/18 01/29/18 01/29/18 18:59 06:59 18:59 Intake Total 1653 1360 220 Output Total 915 655 130 Balance 738 705 90 Weight 126 lb Intake: IV 123 Intake, IV Amount 1530 1360 220 Right Medial Port Femoral 100 90 20 Right Proximal 1 1300 1250 200 Right Proximal 2 130 20 Output: Gastric Amount 275 200 Left Nares 275 200 Urine 640 455 130 Urethral (Paulson) 640 455 130 Other: # Bowel Movements 1 0 - Medications Medications: Current Medications Hydrocortisone Sodium Succinate (Solu-Cortef) 50 mg IV Q12 [facility] Aztreonam 2 gm/ Sodium (Chloride) 100 mls @ 200 mls/hr IVPB Q8H [facility] PRN Reason: Protocol Last Admin: 01/29/18 04:21 Dose: 200 mls/hr Vancomycin HCl 1 gm/ Sodium (Chloride) 200 mls @ 133.333 mls/hr IVPB Q24H [facility] PRN Reason: Protocol Last Admin: 01/29/18 04:28 Dose: 133.333 mls/hr Phenylephrine HCl 30 mg/ (Sodium Chloride) 253 mls @ 10.12 mls/hr IV .Q24H PRN ; Protocol; 20 MCG/MIN PRN Reason: TITRATE PER MD ORDER Last Titration: 01/28/18 11:00 Dose: 10 mcg/min, 5.05 mls/hr Metronidazole (Flagyl) 500 mg in 100 mls @ 100 mls/hr IVPB Q8 [facility] PRN Reason: Protocol Last Admin: 01/29/18 05:25 Dose: 100 mls/hr Lactated Ringer's (Lactated Ringer's) 1,000 mls @ 100 mls/hr IV .Q10H [facility] Last Admin: 01/29/18 04:31 Dose: Not Given Norepinephrine Bitartrate 4 mg (/ Sodium Chloride) 250 mls @ 15 mls/hr IV .[id number] PRN; Protocol; 4 MCG/MIN PRN Reason: TITRATE PER MD ORDER Acetaminophen (Ofirmev) 100 mls @ 100 mls/hr IV BID ONE Stop: 01/29/18 10:10 Insulin Aspart (Novolog) 0 unit SC Q6H [facility] PRN Reason: Protocol Last Admin: 01/29/18 05:35 Dose: 8 unit Multivitamins (Hexavitamin) 1 tab PO DAILY [facility] Last Admin: 01/28/18 09:57 Dose: 1 tab Pantoprazole Sodium (Protonix Inj) 40 mg IVP Q12 [facility] Rosuvastatin Calcium (Crestor) 20 mg PO HS [facility] Last Admin: 01/28/18 21:26 Dose: 20 mg - Labs Labs (last 24 hours): Laboratory Results - last 24 hr 01/28/18 01/29/18 01/29/18 22:58 06:55 06:55 WBC 9.9 9.6 RBC 2.67 L 2.67 L Hgb 8.0 L 8.3 L Hct 24.1 L 24.3 L MCV 90.3 91.3 MCH 29.9 31.0 MCHC 33.1 34.0 RDW 14.8 H 15.1 H Plt Count 183 185 MPV 8.8 9.2 Neut % (Auto) 88.1 H 84.0 H Lymph % (Auto) 7.9 L 12.2 L Jones % (Auto) 3.7 3.7 Eos % (Auto) 0.1 0.0 Baso % (Auto) 0.2 0.1 Neut # (Auto) 8.8 H 8.1 H Lymph # (Auto) 0.8 L 1.2 Jones # (Auto) 0.4 0.4 Eos # (Auto) 0.0 0.0 Baso # (Auto) 0.0 0.0 Neutrophils % (Manual) 93 H Lymphocytes % (Manual) 4 L Monocytes % (Manual) 3 Platelet Estimate Normal Poikilocytosis (manual Slight Anisocytosis (manual) Slight Ovalocytes Slight Sodium 145 Potassium 3.6 Chloride 114 H Carbon Dioxide 20 L Anion Gap 15 BUN 45 H Creatinine 1.0 Est GFR ( Amer) > 60 Est GFR (Non-Af Amer) > 60 Random Glucose 273 H Calcium 9.5 Phosphorus 4.2 Magnesium 1.6 Total Bilirubin 0.4 AST 23 ALT 61 Alkaline Phosphatase 90 Total Protein 4.6 L Albumin 2.0 L D Globulin 2.6 Albumin/Globulin Ratio 0.8 L
[2018-01-29] MEDS: Multiple Vitamins Tab PO SCH (09:39)
--- NOTE | 2018-01-29 10:55 | CP.CCUPN ---
CCU Subjective - Physician Review Subjective (Free Text): Patient has been seen and examined at bedside. ROS difficult due to patient's mental status but when asked if he has abdominal pain he answers "yes" with a head nod. CCU Objective - Vital Signs / Intake & Output Vital Signs (Last 4 hours): Vital Signs Temp Pulse Resp Pulse Ox 01/29/18 08:00 97.6 F 95 H 18 99 Intake and Output (Last 8hrs): Intake & Output 01/28/18 01/29/18 01/29/18 22:59 06:59 14:59 Intake Total 940 880 220 Output Total 430 515 130 Balance 510 365 90 Weight 126 lb Intake: Intake, IV Amount 940 880 220 Right Medial Port Femoral 30 80 20 Right Proximal 1 850 800 200 Right Proximal 2 60 Output: Gastric Amount 100 200 Left Nares 100 200 Urine 330 315 130 Urethral (Paulson) 330 315 130 Other: # Bowel Movements 0 - Physical Exam Head: Positive for: Atraumatic, Normocephalic Pupils: Positive for: PERRL Mouth: Positive for: Moist Mucous Membranes Neck: Positive for: Normal Range of Motion Cardiovascular: Positive for: Regular Rate and Rhythm, Normal S1, S2 Abdomen: Positive for: Tenderness (Diffuse), Normal Bowel Sounds, Other ( midline surgical Scar). Negative for: Peritoneal Signs Upper Extremity: Positive for: Edema Lower Extremity: Positive for: Edema - Medications Active Medications: Active Medications Generic Name Dose Route Start Last Admin Trade Name Freq PRN Reason Stop Dose Admin Hydrocortisone Sodium Succinate 50 mg 01/29/18 10:00 01/29/18 09:40 Solu-Cortef IV 50 mg Q12 KAROLINE Administration Aztreonam 2 gm/ Sodium 100 mls @ 200 mls/hr 01/27/18 04:45 01/29/18 04:21 Chloride IVPB 200 mls/hr Q8H [facility]OLINE Administration Protocol Vancomycin HCl 1 gm/ Sodium 200 mls @ 133.333 mls/hr 01/27/18 05:00 01/29/18 04:28 Chloride IVPB 133.333 mls/hr Q24H [facility]INE Administration Protocol Phenylephrine HCl 30 mg/ 253 mls @ 10.12 mls/hr 01/27/18 06:45 01/28/18 11:00 Sodium Chloride IV 10 mcg/min .Q24H PRN 5.05 mls/hr TITRATE PER MD ORDER Titration Protocol 20 MCG/MIN Metronidazole 500 mg in 100 mls @ 100 mls/hr 01/27/18 14:00 01/29/18 05:25 Flagyl IVPB 100 mls/hr Q8 [facility]OLINE Administration Protocol Lactated Ringer's 1,000 mls @ 100 mls/hr 01/27/18 12:30 01/29/18 04:31 Lactated Ringer's IV Not Given .Q10H [facility]OLINE Norepinephrine Bitartrate 4 mg 250 mls @ 15 mls/hr 01/27/18 13:00 / Sodium Chloride IV .[id number] PRN TITRATE PER MD ORDER Protocol 4 MCG/MIN Insulin Aspart 0 unit 01/28/18 00:00 01/29/18 05:35 Novolog SC 8 unit Q6H [facility]OLINE Administration Protocol Multivitamins 1 tab 01/27/18 10:00 01/29/18 09:39 Hexavitamin PO 1 tab DAILY [facility] Administration Pantoprazole Sodium 40 mg 01/29/18 10:00 01/29/18 09:39 Protonix Inj IVP 40 mg Q12 [facility]AROLINE Administration Rosuvastatin Calcium 20 mg 01/26/18 22:00 01/28/18 21:26 Crestor PO 20 mg HS [facility]INE Administration - Patient Studies Lab Studies: Microbiology Studies 01/27/18 08:57 Blood Culture - Preliminary Blood-Venous NO GROWTH AFTER 48 HOURS 01/27/18 08:57 Blood Culture - Preliminary Blood-Venous NO GROWTH AFTER 48 HOURS 01/27/18 08:57 Urine Culture - Final Urine,Catheterized No Growth (<1,000 CFU/ML) 01/27/18 07:09 MRSA Culture (Admit) - Final Nose MRSA NOT DETECTED Lab Studies 01/29/18 01/29/18 01/28/18 Range/Units 06:55 06:55 22:58 WBC 9.6 9.9 (4.8-10.8) K/uL RBC 2.67 L 2.67 L (4.40-5.90) Mil/uL Hgb 8.3 L 8.0 L (12.0-18.0) g/dL Hct 24.3 L 24.1 L (35.0-51.0) % MCV 91.3 90.3 (80.0-94.0) fL MCH 31.0 29.9 (27.0-31.0) pg MCHC 34.0 33.1 (33.0-37.0) g/dL RDW 15.1 H 14.8 H (11.5-14.5) % Plt Count 185 183 (130-400) K/uL MPV 9.2 8.8 (7.2-11.7) fL Neut % (Auto) 84.0 H 88.1 H (50.0-75.0) % Lymph % (Auto) 12.2 L 7.9 L (20.0-40.0) % Harper % (Auto) 3.7 3.7 (0.0-10.0) % Eos % (Auto) 0.0 0.1 (0.0-4.0) % Baso % (Auto) 0.1 0.2 (0.0-2.0) % Neut # (Auto) 8.1 H 8.8 H (1.8-7.0) K/uL Lymph # (Auto) 1.2 0.8 L (1.0-4.3) K/uL Harper # (Auto) 0.4 0.4 (0.0-0.8) K/uL Eos # (Auto) 0.0 0.0 (0.0-0.7) K/uL Baso # (Auto) 0.0 0.0 (0.0-0.2) K/uL Neutrophils % (Manual) 93 H (50-75) % Lymphocytes % (Manual) 4 L (20-40) % Monocytes % (Manual) 3 (0-10) % Platelet Estimate Normal (NORMAL) Poikilocytosis (manual Slight Anisocytosis (manual) Slight Ovalocytes Slight Sodium 145 (132-148) mmol/L Potassium 3.6 (3.6-5.2) mmol/L Chloride 114 H (98-107) mmol/L Carbon Dioxide 20 L (22-30) mmol/L Anion Gap 15 (10-20) BUN 45 H (9-20) mg/dL Creatinine 1.0 (0.8-1.5) mg/dL Est GFR ( Amer) > 60 Est GFR (Non-Af Amer) > 60 Random Glucose 273 H (75-110) mg/dL Calcium 9.5 (8.6-10.4) mg/dl Phosphorus 4.2 (2.5-4.5) mg/dL Magnesium 1.6 (1.6-2.3) mg/dL Total Bilirubin 0.4 (0.2-1.3) mg/dL AST 23 (17-59) U/L ALT 61 (21-72) U/L Alkaline Phosphatase 90 (38-126) U/L Total Protein 4.6 L (6.3-8.3) g/dL Albumin 2.0 L D (3.5-5.0) g/dL Globulin 2.6 (2.2-3.9) gm/dL Albumin/Globulin Ratio 0.8 L (1.0-2.1) Laboratory Results - last 24 hr 01/28/18 01/29/18 01/29/18 22:58 06:55 06:55 WBC 9.9 9.6 RBC 2.67 L 2.67 L Hgb 8.0 L 8.3 L Hct 24.1 L 24.3 L MCV 90.3 91.3 MCH 29.9 31.0 MCHC 33.1 34.0 RDW 14.8 H 15.1 H Plt Count 183 185 MPV 8.8 9.2 Neut % (Auto) 88.1 H 84.0 H Lymph % (Auto) 7.9 L 12.2 L Harper % (Auto) 3.7 3.7 Eos % (Auto) 0.1 0.0 Baso % (Auto) 0.2 0.1 Neut # (Auto) 8.8 H 8.1 H Lymph # (Auto) 0.8 L 1.2 Harper # (Auto) 0.4 0.4 Eos # (Auto) 0.0 0.0 Baso # (Auto) 0.0 0.0 Neutrophils % (Manual) 93 H Lymphocytes % (Manual) 4 L Monocytes % (Manual) 3 Platelet Estimate Normal Poikilocytosis (manual Slight Anisocytosis (manual) Slight Ovalocytes Slight Sodium 145 Potassium 3.6 Chloride 114 H Carbon Dioxide 20 L Anion Gap 15 BUN 45 H Creatinine 1.0 Est GFR ( Amer) > 60 Est GFR (Non-Af Amer) > 60 Random Glucose 273 H Calcium 9.5 Phosphorus 4.2 Magnesium 1.6 Total Bilirubin 0.4 AST 23 ALT 61 Alkaline Phosphatase 90 Total Protein 4.6 L Albumin 2.0 L D Globulin 2.6 Albumin/Globulin Ratio 0.8 L Fingerstick Blood Sugar Results: 310 Review of Systems - Constitutional Constitutional: absent: Fever, Chills - Cardiovascular Cardiovascular: absent: Chest Pain - Respiratory Respiratory: absent: Dyspnea - Gastrointestinal Gastrointestinal: Abdominal Pain Assessment/Plan - Assessment and Plan (Free Text) Assessment: 77 y/o male with pmx of DM, PVD, h/o duodenal perforation s/p surgical correction presents to [facility] with abdominal pain and dx with incidental finding of pulmonary embolism. Plan: Neuro: GCS: 15 Sedation: None Cardio: A: NSTEMI (Type II), Hypotension, HLD, Multivessel CAD, Wide Complex Tachycardia (Resolved) Pressors: Levophed 4mcg/min | Phenlyephrine 20mcg/min ECHO on 12/25 showed 65%-70% EF and Grade I Abnormal Relaxation Pattern. Heparin Held 2/2 to GI Bleed Cardiology on Consult, Recs Appreciated Not a candidate for CABG per Cardiology Continue Crestor 20 HS Dig and Verapamil as BP Tolerates Pulm: A: PE No indication for full Anticoagulation due to adequate Oxygenation, only a small subsegmental defect on CT and Anemia Pulmonology on Consult, Recs Appreciated. ID A: Sepsis Blood Culture - NEGATIVE | Urine Culture - NEGATIVE | MRSA - Negative Flagyl 500 Q8H, Vancomycin 1g Daily, Aztreonam 2gm Q8H [facility] GI A: s/p Duodenal ulcer perforation repair, Abdominal Abcess Peripancreatic fluid collection measured 7 cm x 4 cm on 12/24/2017. It currently measures 6 x 1. 5cm Small peripancreatic fluid collection is not amendable to percutaneious drainage per IR. GI on Conuslt, Recs Appreciated IR on Consult, Recs Appreciated Gen Surg on Consult, Recs Appreciated Intralipid 20% IV QOD| Clinimix Heme/Onc A: Anemia, S/P 2 Units of PRBC Monitor H/H Proph Protonix 40 IV Q12 SCD's PICC Line Ordered Femoral TLC to be removed. Patient seen and discussed with Attending
--- NOTE | 2018-01-29 12:20 | RAD ---
HISTORY: S/P PICC LINE INSERTION COMPARISON: Chest radiograph dated 01/27/2018 FINDINGS: LUNGS: Stable chronic prominence of the bilateral interstitial markings. Bibasilar atelectasis. PLEURA: Trace left pleural effusion. No pneumothorax apparent. CARDIOVASCULAR: Atherosclerotic aortic calcifications. Cardiomediastinal silhouette stably enlarged. OSSEOUS STRUCTURES: Unchanged. VISUALIZED UPPER ABDOMEN: Normal. OTHER FINDINGS: New right upper extremity PICC with tip at the cavoatrial junction. Enteric tube, unchanged. IMPRESSION: Right upper extremity PICC in satisfactory position. Trace left pleural effusion. No other significant interval change.
--- NOTE | 2018-01-29 17:11 | CP.PCM.PN ---
Subjective - Date & Time of Evaluation Date of Evaluation: 01/29/18 Time of Evaluation: 09:00 - Subjective Subjective: the patient seen and examined complaining of abdominal pain On pressors Number shortness of breath Afebrile Not enough peripancreatic fluid for drainage On antibiotics Objective - Vital Signs/Intake and Output Vital Signs (last 24 hours): Temp Pulse Resp BP Pulse Ox 98.8 F 92 H 14 126/73 96 01/29/18 12:00 01/29/18 15:00 01/29/18 15:00 01/29/18 14:45 01/29/18 15:00 Intake and Output: 01/29/18 01/29/18 06:59 18:59 Intake Total 1360 930 Output Total 655 340 Balance 705 590 - Medications Medications: Current Medications Hydrocortisone Sodium Succinate (Solu-Cortef) 50 mg IV Q12 [facility] Last Admin: 01/29/18 09:40 Dose: 50 mg Aztreonam 2 gm/ Sodium (Chloride) 100 mls @ 200 mls/hr IVPB Q8H [facility] PRN Reason: Protocol Last Admin: 01/29/18 11:59 Dose: 200 mls/hr Vancomycin HCl 1 gm/ Sodium (Chloride) 200 mls @ 133.333 mls/hr IVPB Q24H [facility]INE PRN Reason: Protocol Last Admin: 01/29/18 04:28 Dose: 133.333 mls/hr Phenylephrine HCl 30 mg/ (Sodium Chloride) 253 mls @ 10.12 mls/hr IV .Q24H PRN ; Protocol; 20 MCG/MIN PRN Reason: TITRATE PER MD ORDER Last Titration: 01/28/18 11:00 Dose: 10 mcg/min, 5.05 mls/hr Metronidazole (Flagyl) 500 mg in 100 mls @ 100 mls/hr IVPB Q8 [facility]INE PRN Reason: Protocol Last Admin: 01/29/18 13:14 Dose: 100 mls/hr Lactated Ringer's (Lactated Ringer's) 1,000 mls @ 100 mls/hr IV .Q10H [facility] Last Admin: 01/29/18 16:35 Dose: 100 mls/hr Norepinephrine Bitartrate 4 mg (/ Sodium Chloride) 250 mls @ 15 mls/hr IV .[id number] PRN; Protocol; 4 MCG/MIN PRN Reason: TITRATE PER MD ORDER Multivitamins/Vitamin C 10 ml/Chromium/Copper/Manganese/Zinc 1 ml/ Insulin Human Regular 10 unit/ Amino Acids 1,011.1 mls @ 42.129 mls/hr IV .Q24H [facility] Stop: 01/30/18 17:59 Fat Emulsion Intravenous (Intralipid 20%) 500 mls @ 42 mls/hr IV QOD [facility] Insulin Aspart (Novolog) 0 unit SC Q6H [facility]INE PRN Reason: Protocol Last Admin: 01/29/18 12:20 Dose: 6 unit Multivitamins (Hexavitamin) 1 tab PO DAILY [facility] Last Admin: 01/29/18 09:39 Dose: 1 tab Pantoprazole Sodium (Protonix Inj) 40 mg IVP Q12 [facility] Last Admin: 01/29/18 09:39 Dose: 40 mg Rosuvastatin Calcium (Crestor) 20 mg PO HS [facility] Last Admin: 01/28/18 21:26 Dose: 20 mg - Labs Labs: 01/29/18 06:55 01/29/18 06:55 PT 15.5 SECONDS (9.7-12.2) H 01/27/18 03:11 INR 1.4 01/27/18 03:11 APTT 29 SECONDS (21-34) D 01/28/18 07:09 Assessment and Plan (1) Hypotension (arterial) Status: Acute (2) Abdominal pain Status: Acute (3) Pulmonary embolism Status: Acute (4) Acute non-ST elevation myocardial infarction (NSTEMI) Status: Acute
[2018-01-29] MEDS: Fat Emulsion 20% IV 500 ML IV SCH (17:28)
--- NOTE | 2018-01-29 17:43 | CP.PCM.PN ---
Subjective - Date & Time of Evaluation Date of Evaluation: 01/29/18 Time of Evaluation: 17:25 - Subjective Subjective: F/U GI bleed. NG tube- less coffee grounds,. Abdom pain- ? - pt confused No report of melena, SZ, hematuria, hemoptysis, chills, HOLLAND, cough Objective - Vital Signs/Intake and Output Vital Signs (last 24 hours): Temp Pulse Resp BP Pulse Ox 98.8 F 92 H 14 126/73 96 01/29/18 12:00 01/29/18 15:00 01/29/18 15:00 01/29/18 14:45 01/29/18 15:00 Intake and Output: 01/29/18 01/29/18 06:59 18:59 Intake Total 1360 930 Output Total 655 340 Balance 705 590 - Medications Medications: Current Medications Hydrocortisone Sodium Succinate (Solu-Cortef) 50 mg IV Q12 [facility] Last Admin: 01/29/18 09:40 Dose: 50 mg Aztreonam 2 gm/ Sodium (Chloride) 100 mls @ 200 mls/hr IVPB Q8H [facility]OLINE PRN Reason: Protocol Last Admin: 01/29/18 11:59 Dose: 200 mls/hr Vancomycin HCl 1 gm/ Sodium (Chloride) 200 mls @ 133.333 mls/hr IVPB Q24H [facility]OLINE PRN Reason: Protocol Last Admin: 01/29/18 04:28 Dose: 133.333 mls/hr Phenylephrine HCl 30 mg/ (Sodium Chloride) 253 mls @ 10.12 mls/hr IV .Q24H PRN ; Protocol; 20 MCG/MIN PRN Reason: TITRATE PER MD ORDER Last Titration: 01/28/18 11:00 Dose: 10 mcg/min, 5.05 mls/hr Metronidazole (Flagyl) 500 mg in 100 mls @ 100 mls/hr IVPB Q8 [facility]OLINE PRN Reason: Protocol Last Admin: 01/29/18 13:14 Dose: 100 mls/hr Lactated Ringer's (Lactated Ringer's) 1,000 mls @ 100 mls/hr IV .Q10H [facility] Last Admin: 01/29/18 16:35 Dose: 100 mls/hr Norepinephrine Bitartrate 4 mg (/ Sodium Chloride) 250 mls @ 15 mls/hr IV .[id number] PRN; Protocol; 4 MCG/MIN PRN Reason: TITRATE PER MD ORDER Multivitamins/Vitamin C 10 ml/Chromium/Copper/Manganese/Zinc 1 ml/ Insulin Human Regular 10 unit/ Amino Acids 1,011.1 mls @ 42.129 mls/hr IV .Q24H [facility] Stop: 01/30/18 17:59 Last Admin: 01/29/18 17:32 Dose: 42.129 mls/hr Fat Emulsion Intravenous (Intralipid 20%) 500 mls @ 42 mls/hr IV QOD [facility] Last Admin: 01/29/18 17:28 Dose: 42 mls/hr Insulin Aspart (Novolog) 0 unit SC Q6H [facility]OLINE PRN Reason: Protocol Last Admin: 01/29/18 12:20 Dose: 6 unit Multivitamins (Hexavitamin) 1 tab PO DAILY [facility] Last Admin: 01/29/18 09:39 Dose: 1 tab Pantoprazole Sodium (Protonix Inj) 40 mg IVP Q12 [facility] Last Admin: 01/29/18 09:39 Dose: 40 mg Rosuvastatin Calcium (Crestor) 20 mg PO HS [facility] Last Admin: 01/28/18 21:26 Dose: 20 mg - Labs Labs: 01/29/18 06:55 01/29/18 06:55 PT 15.5 SECONDS (9.7-12.2) H 01/27/18 03:11 INR 1.4 01/27/18 03:11 APTT 29 SECONDS (21-34) D 01/28/18 07:09 - Constitutional Appears: Confused - Respiratory Exam Respiratory Exam: Rhonchi - Cardiovascular Exam Cardiovascular Exam: REGULAR RHYTHM - GI/Abdominal Exam GI & Abdominal Exam: Soft, Tenderness, Normal Bowel Sounds. absent: Guarding, Mass, Rebound Additional comments: mild epig tenderness - Extremities Exam Extremities Exam: absent: Calf Tenderness - Neurological Exam Neurological Exam: Alert. absent: Oriented x3 Assessment and Plan (1) Upper GI bleed Assessment & Plan: No melena. Hb about same at 8.3 REc: cont PPI, check Hb, consider EGD in future when stable., Status: Acute (2) Constipation Assessment & Plan: Better BMs- and brown. Status: Acute (3) Abdominal pain Status: Acute (4) Hypotension (arterial) Status: Acute (5) Pulmonary embolism Status: Acute (6) Acute non-ST elevation myocardial infarction (NSTEMI) Assessment & Plan: Seen by Dr Unger. Status: Acute (7) Diabetes mellitus Status: Acute (8) GERD (gastroesophageal reflux disease) Status: Acute (9) Perforated abdominal viscus Assessment & Plan: s/p surg 1 mo ago Status: Acute (10) Sepsis associated hypotension Assessment & Plan: WBC improving Status: Acute (11) Status post exploratory laparotomy Status: Acute (12) Abnormal CT of the abdomen Assessment & Plan: 7 cm collection. Seen by IR. WBC decreasing Status: Acute
[2018-01-29] MEDS ORDERED: TPN # 1 IV SCH (18:00)
[2018-01-29] MEDS ORDERED: Morphine 4 MG/ML VIAL IVP STA (21:01)
[2018-01-30] MEDS: (Novolog) Insulin Aspart, Recombinant 100 u/ml 10 ml vial SC SCH ×4 (00:08→19:00)
[2018-01-30] MEDS: Aztreonam 2 GM in Sodium Chloride 0.9% 100 ML IVPB SCH ×3 (03:58→20:53)
[2018-01-30] MEDS: metroNIDAZOLE IV 500 mg/100 ml 500 MG/100 ML BAG IVPB SCH ×3 (05:15→21:57)
[2018-01-30 06:15] LABS: BASO % 0.2 % (0.0-2.0); HEMOGLOBIN 8.3 g/dL (12.0-18.0); LYMPH # 0.9 K/uL (1.0-4.3); LYMPH % 9.8 % (20.0-40.0); MEAN CELL VOLUME 91.5 fL (80.0-94.0); MEAN CORPUSCULAR HEMOGLOBIN 33.5 pg (27.0-31.0); MEAN CORPUSCULAR HGB CONC 36.6 g/dL (33.0-37.0); MEAN PLATELET VOLUME 9.2 fL (7.2-11.7); MONO # 0.3 K/uL (0.0-0.8); NEUT # 7.6 K/uL (1.8-7.0); NRBC % 0.3 % (0.0-2.0); PLATELET COUNT 162 K/uL (130-400); RBC 2.47 Mil/uL (4.40-5.90); RED CELL DISTRIBUTION WIDTH 14.7 % (11.5-14.5); WHITE BLOOD COUNT 8.8 K/uL (4.8-10.8)
[2018-01-30 06:32] LABS: ALB/GLOB RATIO 0.8 (1.0-2.1); ALBUMIN 2.1 g/dL (3.5-5.0); ALT/SGPT 44 U/L (21-72); AST/SGOT 19 U/L (17-59); BLOOD UREA NITROGEN 39 mg/dL (9-20); CALCIUM 8.8 mg/dl (8.6-10.4); GFR AFRICAN-AMERICAN > 60; GFR NON-AFRICAN AMERICAN 59
[2018-01-30] MEDS: Vancomycin 1 GM in Sodium Chloride 0.9% 200 ML IVPB SCH (06:41)
--- NOTE | 2018-01-30 07:29 | CP.PCM.PN ---
<Kobi Schwartz - Last Filed: 01/30/18 07:20> Subjective - Date & Time of Evaluation Date of Evaluation: 01/30/18 Time of Evaluation: 07:00 - Subjective Subjective: Surgery Dr. Villa Patient seen and examined at bedside. Patient unable to provide full ROS. NGT to suction 250 out overnight.Multiple BM per day Objective - Vital Signs/Intake and Output Vital Signs (last 24 hours): Temp Pulse Resp BP Pulse Ox 98.4 F 95 H 14 118/64 92 L 01/30/18 04:00 01/30/18 06:45 01/30/18 06:45 01/30/18 06:45 01/30/18 06:45 Intake and Output: 01/30/18 01/30/18 06:59 18:59 Intake Total 1557 109 Output Total 665 30 Balance 892 79 - Medications Medications: Current Medications Hydrocortisone Sodium Succinate (Solu-Cortef) 50 mg IV Q12 [facility] Last Admin: 01/29/18 21:32 Dose: 50 mg Aztreonam 2 gm/ Sodium (Chloride) 100 mls @ 200 mls/hr IVPB Q8H [facility] PRN Reason: Protocol Last Admin: 01/30/18 03:58 Dose: 200 mls/hr Vancomycin HCl 1 gm/ Sodium (Chloride) 200 mls @ 133.333 mls/hr IVPB Q24H [facility] PRN Reason: Protocol Last Admin: 01/30/18 06:41 Dose: 133.333 mls/hr Phenylephrine HCl 30 mg/ (Sodium Chloride) 253 mls @ 10.12 mls/hr IV .Q24H PRN ; Protocol; 20 MCG/MIN PRN Reason: TITRATE PER MD ORDER Last Titration: 01/28/18 11:00 Dose: 10 mcg/min, 5.05 mls/hr Metronidazole (Flagyl) 500 mg in 100 mls @ 100 mls/hr IVPB Q8 [facility] PRN Reason: Protocol Last Admin: 01/30/18 05:15 Dose: 100 mls/hr Norepinephrine Bitartrate 4 mg (/ Sodium Chloride) 250 mls @ 15 mls/hr IV .[id number] PRN; Protocol; 4 MCG/MIN PRN Reason: TITRATE PER MD ORDER Multivitamins/Vitamin C 10 ml/Chromium/Copper/Manganese/Zinc 1 ml/ Insulin Human Regular 10 unit/ Amino Acids 1,011.1 mls @ 42.129 mls/hr IV .Q24H [facility] Stop: 01/30/18 17:59 Last Admin: 01/29/18 17:32 Dose: 42.129 mls/hr Fat Emulsion Intravenous (Intralipid 20%) 500 mls @ 42 mls/hr IV QOD [facility] Last Admin: 01/29/18 17:28 Dose: 42 mls/hr Insulin Aspart (Novolog) 0 unit SC Q6H [facility] PRN Reason: Protocol Last Admin: 01/30/18 06:40 Dose: 8 unit Multivitamins (Hexavitamin) 1 tab PO DAILY [facility] Last Admin: 01/29/18 09:39 Dose: 1 tab Pantoprazole Sodium (Protonix Inj) 40 mg IVP Q12 [facility] Last Admin: 01/29/18 21:33 Dose: 40 mg Rosuvastatin Calcium (Crestor) 20 mg PO HS [facility] Last Admin: 01/29/18 21:44 Dose: 20 mg - Labs Labs: 01/30/18 06:06 01/30/18 06:06 PT 15.5 SECONDS (9.7-12.2) H 01/27/18 03:11 INR 1.4 01/27/18 03:11 APTT 29 SECONDS (21-34) D 01/28/18 07:09 - Constitutional Appears: No Acute Distress, Chronically Ill - Head Exam Head Exam: ATRAUMATIC - Eye Exam Eye Exam: absent: Scleral icterus - Respiratory Exam Respiratory Exam: NORMAL BREATHING PATTERN. absent: Accessory Muscle Use, Respiratory Distress - Cardiovascular Exam Cardiovascular Exam: Tachycardia, +S1, +S2. absent: Bradycardia - GI/Abdominal Exam GI & Abdominal Exam: Soft. absent: Distended, Firm, Guarding, Rigid, Tenderness Additional comments: abdomen soft w/ multiple BM per day. - Extremities Exam Extremities Exam: absent: Calf Tenderness - Neurological Exam Neurological Exam: Awake - Skin Skin Exam: Intact, Warm Assessment and Plan - Assessment and Plan (Free Text) Assessment: 77M w/ PE, intra-abdominal abscess, and chronic constipation Plan: - recommend NGT off suction and start tube feeds - swallow Eval - transfuse H/H PRN - no acute surgical intervention at this time - further recs per Dr. Villa surgical attending [facility] PGY1 <Fred Villa B - Last Filed: 01/30/18 19:32> Objective - Vital Signs/Intake and Output Vital Signs (last 24 hours): Temp Pulse Resp BP Pulse Ox 97.7 F 79 14 131/81 100 01/30/18 16:00 01/30/18 17:00 01/30/18 17:00 01/30/18 16:45 01/30/18 17:00 Intake and Output: 01/30/18 01/31/18 18:59 06:59 Intake Total 1129 Output Total 270 Balance 859 - Medications Medications: Current Medications Hydrocortisone Sodium Succinate (Solu-Cortef) 50 mg IV Q12 [facility] Last Admin: 01/30/18 10:13 Dose: 50 mg Hydromorphone HCl (Dilaudid) 0.5 mg IVP Q4H PRN PRN Reason: Pain, severe (8-10) Last Admin: 01/30/18 17:04 Dose: 0.5 mg Aztreonam 2 gm/ Sodium (Chloride) 100 mls @ 200 mls/hr IVPB Q8H [facility] PRN Reason: Protocol Last Admin: 01/30/18 12:07 Dose: 200 mls/hr Vancomycin HCl 1 gm/ Sodium (Chloride) 200 mls @ 133.333 mls/hr IVPB Q24H [facility] PRN Reason: Protocol Last Admin: 01/30/18 06:41 Dose: 133.333 mls/hr Metronidazole (Flagyl) 500 mg in 100 mls @ 100 mls/hr IVPB Q8 [facility] PRN Reason: Protocol Last Admin: 01/30/18 13:35 Dose: 100 mls/hr Fat Emulsion Intravenous (Intralipid 20%) 500 mls @ 42 mls/hr IV QOD [facility] Last Admin: 01/29/18 17:28 Dose: 42 mls/hr Insulin Human Regular 20 unit/Chromium/Copper/Manganese/Zinc 1 ml/ Multivitamins /Vitamin C 10 ml/ Amino Acids 1,011.2 mls @ 60 mls/hr IV .[id number] [facility] Stop: 01/31/18 10:51 Last Admin: 01/30/18 17:03 Dose: 60 mls/hr Insulin Human Regular 20 unit/Chromium/Copper/Manganese/Zinc 1 ml/ Amino Acids 1,001.2 mls @ 60 mls/hr IV .[id number] [facility] Stop: 01/31/18 11:01 Insulin Aspart (Novolog) 0 unit SC Q6H [facility] PRN Reason: Protocol Last Admin: 01/30/18 19:00 Dose: 4 unit Multivitamins (Hexavitamin) 1 tab PO DAILY [facility] Last Admin: 01/30/18 10:09 Dose: 1 tab Pantoprazole Sodium (Protonix Inj) 40 mg IVP Q12 [facility] Last Admin: 01/30/18 10:10 Dose: 40 mg Rosuvastatin Calcium (Crestor) 20 mg PO HS [facility] Last Admin: 01/29/18 21:44 Dose: 20 mg - Labs Labs: 01/30/18 06:06 01/30/18 06:06 PT 15.5 SECONDS (9.7-12.2) H 01/27/18 03:11 INR 1.4 01/27/18 03:11 APTT 29 SECONDS (21-34) D 01/28/18 07:09 Attending/Attestation - Attestation I have personally seen and examined this patient.: Yes I have fully participated in the care of the patient.: Yes I have reviewed all pertinent clinical information, including history, physical exam and plan: Yes Notes (Text): Pt was seen and examined at bedside Agree with above note and assessment Pt is improving clinically As per IR, Collection is nondrainable. Can start liquid diet. Advance as tolerated Plan d.w pt and primary team in detail
[2018-01-30] MEDS ORDERED: Magnesium Sulfate 1 gm in D5W 1 GM/100 ML BAG IVPB ONE (08:00)
[2018-01-30 08:13] LABS: LYMPHOCYTE 2 % (20-40); MONOCYTE 2 % (0-10); NEUTROPHIL 96 % (50-75); TOTAL CELLS COUNTED 100
[2018-01-30 08:14] LABS: PLATELET ESTIMATE NORMAL (NORMAL)
[2018-01-30 08:17] LABS: HYPOCHROMIC SLIGHT; POLYCHROMIC SLIGHT
--- NOTE | 2018-01-30 08:18 | CP.PCM.PN ---
Subjective - Date & Time of Evaluation Date of Evaluation: 01/30/18 Time of Evaluation: 08:16 - Subjective Subjective: F/U GI bleed. Ni melena, RB, feever, SZ, cough, hematuria, hemoptysis, myalgia Objective - Vital Signs/Intake and Output Vital Signs (last 24 hours): Temp Pulse Resp BP Pulse Ox 98.4 F 97 H 15 105/56 L 95 01/30/18 04:00 01/30/18 07:18 01/30/18 07:18 01/30/18 07:19 01/30/18 07:18 Intake and Output: 01/30/18 01/30/18 06:59 18:59 Intake Total 1557 109 Output Total 665 30 Balance 892 79 - Medications Medications: Current Medications Hydrocortisone Sodium Succinate (Solu-Cortef) 50 mg IV Q12 [facility] Last Admin: 01/29/18 21:32 Dose: 50 mg Aztreonam 2 gm/ Sodium (Chloride) 100 mls @ 200 mls/hr IVPB Q8H [facility] PRN Reason: Protocol Last Admin: 01/30/18 03:58 Dose: 200 mls/hr Vancomycin HCl 1 gm/ Sodium (Chloride) 200 mls @ 133.333 mls/hr IVPB Q24H [facility] PRN Reason: Protocol Last Admin: 01/30/18 06:41 Dose: 133.333 mls/hr Metronidazole (Flagyl) 500 mg in 100 mls @ 100 mls/hr IVPB Q8 [facility] PRN Reason: Protocol Last Admin: 01/30/18 05:15 Dose: 100 mls/hr Multivitamins/Vitamin C 10 ml/Chromium/Copper/Manganese/Zinc 1 ml/ Insulin Human Regular 10 unit/ Amino Acids 1,011.1 mls @ 42.129 mls/hr IV .Q24H [facility] Stop: 01/30/18 17:59 Last Admin: 01/29/18 17:32 Dose: 42.129 mls/hr Fat Emulsion Intravenous (Intralipid 20%) 500 mls @ 42 mls/hr IV QOD [facility] Last Admin: 01/29/18 17:28 Dose: 42 mls/hr Potassium Chloride (Potassium Chloride 20 Meq/100 Ml) 20 meq in 100 mls @ 100 mls/hr IVPB ONCE ONE Stop: 01/30/18 08:27 Last Admin: 01/30/18 08:00 Dose: 100 mls/hr Potassium Chloride (Potassium Chloride 20 Meq/100 Ml) 20 meq in 100 mls @ 100 mls/hr IVPB ONCE ONE Stop: 01/30/18 09:29 Potassium Chloride (Potassium Chloride 20 Meq/100 Ml) 20 meq in 100 mls @ 100 mls/hr IVPB ONCE ONE Stop: 01/30/18 10:29 Potassium Chloride (Potassium Chloride 20 Meq/100 Ml) 20 meq in 100 mls @ 100 mls/hr IVPB ONCE ONE Stop: 01/30/18 10:29 Magnesium Sulfate/Dextrose (Magnesium Sulfate 1 Gm/100 Ml D5w) 1 gm in 100 mls @ 100 mls/hr IVPB ONCE ONE Stop: 01/30/18 08:59 Last Admin: 01/30/18 08:08 Dose: 100 mls/hr Insulin Aspart (Novolog) 0 unit SC Q6H [facility] PRN Reason: Protocol Last Admin: 01/30/18 06:40 Dose: 8 unit Multivitamins (Hexavitamin) 1 tab PO DAILY [facility] Last Admin: 01/29/18 09:39 Dose: 1 tab Pantoprazole Sodium (Protonix Inj) 40 mg IVP Q12 [facility] Last Admin: 01/29/18 21:33 Dose: 40 mg Rosuvastatin Calcium (Crestor) 20 mg PO HS [facility] Last Admin: 01/29/18 21:44 Dose: 20 mg - Labs Labs: 01/30/18 06:06 01/30/18 06:06 PT 15.5 SECONDS (9.7-12.2) H 01/27/18 03:11 INR 1.4 01/27/18 03:11 APTT 29 SECONDS (21-34) D 01/28/18 07:09 - Constitutional Appears: Confused - Respiratory Exam Respiratory Exam: Clear to Ausculation Bilateral - Cardiovascular Exam Cardiovascular Exam: RRR - GI/Abdominal Exam GI & Abdominal Exam: Soft, Normal Bowel Sounds. absent: Guarding, Mass, Rebound - Neurological Exam Neurological Exam: Awake. absent: Oriented x3 Assessment and Plan (1) Upper GI bleed Assessment & Plan: Hb is stable Status: Acute (2) Constipation Assessment & Plan: Better Status: Acute (3) Abdominal pain Status: Acute (4) Hypotension (arterial) Status: Acute (5) Pulmonary embolism Status: Acute (6) Acute non-ST elevation myocardial infarction (NSTEMI) Status: Acute (7) Diabetes mellitus Status: Acute (8) GERD (gastroesophageal reflux disease) Status: Acute (9) Perforated abdominal viscus Status: Acute (10) Sepsis associated hypotension Status: Acute (11) Status post exploratory laparotomy Status: Acute (12) Abnormal CT of the abdomen Assessment & Plan: collection 7 cm. Seen by IR. Collection was present 1 mo ago Status: Acute
--- NOTE | 2018-01-30 09:21 | CP.PCM.PN ---
Subjective - Date & Time of Evaluation Date of Evaluation: 01/29/18 Time of Evaluation: 20:00 - Subjective Subjective: Pt seen and examine at bedside Objective - Vital Signs/Intake and Output Vital Signs (last 24 hours): Temp Pulse Resp BP Pulse Ox 97.8 F 92 H 13 103/56 L 97 01/30/18 08:00 01/30/18 08:00 01/30/18 08:00 01/30/18 07:45 01/30/18 08:00 Intake and Output: 01/30/18 01/30/18 06:59 18:59 Intake Total 1557 251 Output Total 665 70 Balance 892 181 - Medications Medications: Current Medications Hydrocortisone Sodium Succinate (Solu-Cortef) 50 mg IV Q12 [facility] Last Admin: 01/29/18 21:32 Dose: 50 mg Hydromorphone HCl (Dilaudid) 0.5 mg IVP Q4H PRN PRN Reason: Pain, severe (8-10) Aztreonam 2 gm/ Sodium (Chloride) 100 mls @ 200 mls/hr IVPB Q8H [facility] PRN Reason: Protocol Last Admin: 01/30/18 03:58 Dose: 200 mls/hr Vancomycin HCl 1 gm/ Sodium (Chloride) 200 mls @ 133.333 mls/hr IVPB Q24H [facility] PRN Reason: Protocol Last Admin: 01/30/18 06:41 Dose: 133.333 mls/hr Metronidazole (Flagyl) 500 mg in 100 mls @ 100 mls/hr IVPB Q8 [facility] PRN Reason: Protocol Last Admin: 01/30/18 05:15 Dose: 100 mls/hr Multivitamins/Vitamin C 10 ml/Chromium/Copper/Manganese/Zinc 1 ml/ Insulin Human Regular 10 unit/ Amino Acids 1,011.1 mls @ 42.129 mls/hr IV .Q24H [facility] Stop: 01/30/18 17:59 Last Admin: 01/29/18 17:32 Dose: 42.129 mls/hr Fat Emulsion Intravenous (Intralipid 20%) 500 mls @ 42 mls/hr IV QOD [facility] Last Admin: 01/29/18 17:28 Dose: 42 mls/hr Potassium Chloride (Potassium Chloride 20 Meq/100 Ml) 20 meq in 100 mls @ 100 mls/hr IVPB ONCE ONE Stop: 01/30/18 09:29 Potassium Chloride (Potassium Chloride 20 Meq/100 Ml) 20 meq in 100 mls @ 100 mls/hr IVPB ONCE ONE Stop: 01/30/18 10:29 Potassium Chloride (Potassium Chloride 20 Meq/100 Ml) 20 meq in 100 mls @ 100 mls/hr IVPB ONCE ONE Stop: 01/30/18 10:29 Insulin Aspart (Novolog) 0 unit SC Q6H [facility] PRN Reason: Protocol Last Admin: 01/30/18 06:40 Dose: 8 unit Multivitamins (Hexavitamin) 1 tab PO DAILY [facility] Last Admin: 01/29/18 09:39 Dose: 1 tab Pantoprazole Sodium (Protonix Inj) 40 mg IVP Q12 [facility] Last Admin: 01/29/18 21:33 Dose: 40 mg Rosuvastatin Calcium (Crestor) 20 mg PO HS [facility] Last Admin: 01/29/18 21:44 Dose: 20 mg - Labs Labs: 01/30/18 06:06 01/30/18 06:06 PT 15.5 SECONDS (9.7-12.2) H 01/27/18 03:11 INR 1.4 01/27/18 03:11 APTT 29 SECONDS (21-34) D 01/28/18 07:09
[2018-01-30] MEDS: Multiple Vitamins Tab PO SCH (10:09)
--- NOTE | 2018-01-30 10:27 | CP.CCUPN ---
"<Francisco Baker - Last Filed: 01/30/18 10:24> CCU Subjective - Physician Review Subjective (Free Text): Patient has been seen and examined at bedside. ROS difficult due to patient's mental status but he states he has pain all over. Especially in the abdomen. CCU Objective - Vital Signs / Intake & Output Vital Signs (Last 4 hours): Vital Signs Temp Pulse Resp BP Pulse Ox 01/30/18 09:45 86 14 103/56 L 100 01/30/18 09:00 85 14 95 01/30/18 08:45 87 15 97/54 L 98 01/30/18 08:00 97.8 F 92 H 13 97 01/30/18 07:45 89 14 103/56 L 97 01/30/18 07:19 105/56 L 01/30/18 07:18 97 H 15 95 01/30/18 06:45 95 H 14 118/64 92 L Intake and Output (Last 8hrs): Intake & Output 01/29/18 01/30/18 01/30/18 22:59 06:59 14:59 Intake Total 1120 921 393 Output Total 445 520 120 Balance 675 401 273 Weight 126 lb 0.8 oz Intake: Intake, IV Amount 1120 921 393 Right Distal Port PICC 210 336 126 Right Medial Port Femoral 0 Right Proximal 1 310 252 Right Proximal Port PICC 600 333 267 Oral 0 0 0 Output: Gastric Amount 150 250 Left Nares 150 250 Urine 295 270 120 Urethral (Paulson) 295 270 120 Other: # Bowel Movements 0 0 0 - Physical Exam Head: Positive for: Atraumatic, Normocephalic Pupils: Positive for: PERRL Mouth: Positive for: Moist Mucous Membranes Neck: Positive for: Normal Range of Motion Cardiovascular: Positive for: Regular Rate and Rhythm, Normal S1, S2 Abdomen: Positive for: Tenderness (Diffuse), Normal Bowel Sounds, Other ( midline surgical Scar). Negative for: Peritoneal Signs Upper Extremity: Positive for: Edema Lower Extremity: Positive for: Edema - Medications Active Medications: Active Medications Generic Name Dose Route Start Last Admin Trade Name Freq PRN Reason Stop Dose Admin Hydrocortisone Sodium Succinate 50 mg 01/29/18 10:00 01/30/18 10:13 Solu-Cortef IV 50 mg Q12 KAROLINE Administration Hydromorphone HCl 0.5 mg 01/30/18 09:10 Dilaudid IVP Q4H PRN Pain, severe (8-10) Aztreonam 2 gm/ Sodium 100 mls @ 200 mls/hr 01/27/18 04:45 01/30/18 03:58 Chloride IVPB 200 mls/hr Q8H KAROLINE Administration Protocol Vancomycin HCl 1 gm/ Sodium 200 mls @ 133.333 mls/hr 01/27/18 05:00 01/30/18 06:41 Chloride IVPB 133.333 mls/hr Q24H KAROLINE Administration Protocol Metronidazole 500 mg in 100 mls @ 100 mls/hr 01/27/18 14:00 01/30/18 05:15 Flagyl IVPB 100 mls/hr Q8 KAROLINE Administration Protocol Multivitamins/Vitamin C 10 ml/ 1,011.1 mls @ 42.129 mls/hr 01/29/18 18:00 17:32 Chromium/Copper/Manganese/ IV 01/30/18 17:59 42.129 mls/hr Zinc 1 ml/ Insulin Human .Q24H KAROLINE Administration Regular 10 unit/ Amino Acids Fat Emulsion Intravenous 500 mls @ 42 mls/hr 01/29/18 18:00 01/29/18 17:28 Intralipid 20% IV 42 mls/hr QOD KAROLINE Administration Potassium Chloride 20 meq in 100 mls @ 100 mls/hr 01/30/18 09:30 Potassium Chloride 20 Meq/100 Ml IVPB 01/30/18 10:29 ONCE ONE Potassium Chloride 20 meq in 100 mls @ 100 mls/hr 01/30/18 09:30 Potassium Chloride 20 Meq/100 Ml IVPB 01/30/18 10:29 ONCE ONE Insulin Aspart 0 unit 01/28/18 00:00 01/30/18 06:40 Novolog SC 8 unit Q6H KAROLINE Administration Protocol Multivitamins 1 tab 01/27/18 10:00 01/30/18 10:09 Hexavitamin PO 1 tab DAILY KAROLINE Administration Pantoprazole Sodium 40 mg 01/29/18 10:00 01/30/18 10:10 Protonix Inj IVP 40 mg Q12 KAROLINE Administration Rosuvastatin Calcium 20 mg 01/26/18 22:00 01/29/18 21:44 Crestor PO 20 mg HS KAROLINE Administration - Patient Studies Lab Studies: Microbiology Studies 01/27/18 08:57 Blood Culture - Preliminary Blood-Venous NO GROWTH AFTER 3 DAYS 01/27/18 08:57 Blood Culture - Preliminary Blood-Venous NO GROWTH AFTER 3 DAYS Lab Studies 01/30/18 01/30/18 01/30/18 Range/Units 06:24 06:06 06:06 WBC 8.8 (4.8-10.8) K/uL RBC 2.47 L (4.40-5.90) Mil/uL Hgb 8.3 L (12.0-18.0) g/dL Hct 22.7 L (35.0-51.0) % MCV 91.5 (80.0-94.0) fL MCH 33.5 H (27.0-31.0) pg MCHC 36.6 (33.0-37.0) g/dL RDW 14.7 H (11.5-14.5) % Plt Count 162 (130-400) K/uL MPV 9.2 (7.2-11.7) fL Neut % (Auto) 86.0 H (50.0-75.0) % Lymph % (Auto) 9.8 L (20.0-40.0) % Hayes % (Auto) 4.0 (0.0-10.0) % Eos % (Auto) 0.0 (0.0-4.0) % Baso % (Auto) 0.2 (0.0-2.0) % Neut # (Auto) 7.6 H (1.8-7.0) K/uL Lymph # (Auto) 0.9 L (1.0-4.3) K/uL Hayes # (Auto) 0.3 (0.0-0.8) K/uL Eos # (Auto) 0.0 (0.0-0.7) K/uL Baso # (Auto) 0.0 (0.0-0.2) K/uL Neutrophils % (Manual) 96 H (50-75) % Lymphocytes % (Manual) 2 L (20-40) % Monocytes % (Manual) 2 (0-10) % Platelet Estimate Normal (NORMAL) Polychromasia Slight Hypochromasia (manual) Slight Sodium 145 (132-148) mmol/L Potassium 2.9 L (3.6-5.2) mmol/L Chloride 116 H (98-107) mmol/L Carbon Dioxide 20 L (22-30) mmol/L Anion Gap 12 (10-20) BUN 39 H (9-20) mg/dL Creatinine 1.2 (0.8-1.5) mg/dL Est GFR ( Amer) > 60 Est GFR (Non-Af Amer) 59 POC Glucose (mg/dL) 328 H (65-110) mg/dL Random Glucose 277 H (75-110) mg/dL Calcium 8.8 (8.6-10.4) mg/dl Phosphorus 3.5 (2.5-4.5) mg/dL Magnesium 1.5 L (1.6-2.3) mg/dL Total Bilirubin 0.4 (0.2-1.3) mg/dL AST 19 (17-59) U/L ALT 44 (21-72) U/L Alkaline Phosphatase 76 (38-126) U/L Total Protein 4.7 L (6.3-8.3) g/dL Albumin 2.1 L (3.5-5.0) g/dL Globulin 2.6 (2.2-3.9) gm/dL Albumin/Globulin Ratio 0.8 L (1.0-2.1) Random Vancomycin ug/mL 01/30/18 01/29/18 01/29/18 Range/Units 06:06 23:17 17:24 WBC (4.8-10.8) K/uL RBC (4.40-5.90) Mil/uL Hgb (12.0-18.0) g/dL Hct (35.0-51.0) % MCV (80.0-94.0) fL MCH (27.0-31.0) pg MCHC (33.0-37.0) g/dL RDW (11.5-14.5) % Plt Count (130-400) K/uL MPV (7.2-11.7) fL Neut % (Auto) (50.0-75.0) % Lymph % (Auto) (20.0-40.0) % Hayes % (Auto) (0.0-10.0) % Eos % (Auto) (0.0-4.0) % Baso % (Auto) (0.0-2.0) % Neut # (Auto) (1.8-7.0) K/uL Lymph # (Auto) (1.0-4.3) K/uL Hayes # (Auto) (0.0-0.8) K/uL Eos # (Auto) (0.0-0.7) K/uL Baso # (Auto) (0.0-0.2) K/uL Neutrophils % (Manual) (50-75) % Lymphocytes % (Manual) (20-40) % Monocytes % (Manual) (0-10) % Platelet Estimate (NORMAL) Polychromasia Hypochromasia (manual) Sodium (132-148) mmol/L Potassium (3.6-5.2) mmol/L Chloride (98-107) mmol/L Carbon Dioxide (22-30) mmol/L Anion Gap (10-20) BUN (9-20) mg/dL Creatinine (0.8-1.5) mg/dL Est GFR ( Amer) Est GFR (Non-Af Amer) POC Glucose (mg/dL) 228 H 243 H (65-110) mg/dL Random Glucose (75-110) mg/dL Calcium (8.6-10.4) mg/dl Phosphorus (2.5-4.5) mg/dL Magnesium (1.6-2.3) mg/dL Total Bilirubin (0.2-1.3) mg/dL AST (17-59) U/L ALT (21-72) U/L Alkaline Phosphatase (38-126) U/L Total Protein (6.3-8.3) g/dL Albumin (3.5-5.0) g/dL Globulin (2.2-3.9) gm/dL Albumin/Globulin Ratio (1.0-2.1) Random Vancomycin 15.3 ug/mL 01/29/18 01/29/18 01/28/18 Range/Units 11:45 05:33 23:41 WBC (4.8-10.8) K/uL RBC (4.40-5.90) Mil/uL Hgb (12.0-18.0) g/dL Hct (35.0-51.0) % MCV (80.0-94.0) fL MCH (27.0-31.0) pg MCHC (33.0-37.0) g/dL RDW (11.5-14.5) % Plt Count (130-400) K/uL MPV (7.2-11.7) fL Neut % (Auto) (50.0-75.0) % Lymph % (Auto) (20.0-40.0) % Hayes % (Auto) (0.0-10.0) % Eos % (Auto) (0.0-4.0) % Baso % (Auto) (0.0-2.0) % Neut # (Auto) (1.8-7.0) K/uL Lymph # (Auto) (1.0-4.3) K/uL Hayes # (Auto) (0.0-0.8) K/uL Eos # (Auto) (0.0-0.7) K/uL Baso # (Auto) (0.0-0.2) K/uL Neutrophils % (Manual) (50-75) % Lymphocytes % (Manual) (20-40) % Monocytes % (Manual) (0-10) % Platelet Estimate (NORMAL) Polychromasia Hypochromasia (manual) Sodium (132-148) mmol/L Potassium (3.6-5.2) mmol/L Chloride (98-107) mmol/L Carbon Dioxide (22-30) mmol/L Anion Gap (10-20) BUN (9-20) mg/dL Creatinine (0.8-1.5) mg/dL Est GFR ( Amer) Est GFR (Non-Af Amer) POC Glucose (mg/dL) 275 H 310 H 265 H (65-110) mg/dL Random Glucose (75-110) mg/dL Calcium (8.6-10.4) mg/dl Phosphorus (2.5-4.5) mg/dL Magnesium (1.6-2.3) mg/dL Total Bilirubin (0.2-1.3) mg/dL AST (17-59) U/L ALT (21-72) U/L Alkaline Phosphatase (38-126) U/L Total Protein (6.3-8.3) g/dL Albumin (3.5-5.0) g/dL Globulin (2.2-3.9) gm/dL Albumin/Globulin Ratio (1.0-2.1) Random Vancomycin ug/mL 05/20/18 05/20/18 05/20/18 Range/Units 17:42 11:39 07:02 WBC (4.8-10.8) K/uL RBC (4.40-5.90) Mil/uL Hgb (12.0-18.0) g/dL Hct (35.0-51.0) % MCV (80.0-94.0) fL MCH (27.0-31.0) pg MCHC (33.0-37.0) g/dL RDW (11.5-14.5) % Plt Count (130-400) K/uL MPV (7.2-11.7) fL Neut % (Auto) (50.0-75.0) % Lymph % (Auto) (20.0-40.0) % Hayes % (Auto) (0.0-10.0) % Eos % (Auto) (0.0-4.0) % Baso % (Auto) (0.0-2.0) % Neut # (Auto) (1.8-7.0) K/uL Lymph # (Auto) (1.0-4.3) K/uL Hayes # (Auto) (0.0-0.8) K/uL Eos # (Auto) (0.0-0.7) K/uL Baso # (Auto) (0.0-0.2) K/uL Neutrophils % (Manual) (50-75) % Lymphocytes % (Manual) (20-40) % Monocytes % (Manual) (0-10) % Platelet Estimate (NORMAL) Polychromasia Hypochromasia (manual) Sodium (132-148) mmol/L Potassium (3.6-5.2) mmol/L Chloride (98-107) mmol/L Carbon Dioxide (22-30) mmol/L Anion Gap (10-20) BUN (9-20) mg/dL Creatinine (0.8-1.5) mg/dL Est GFR ( Amer) Est GFR (Non-Af Amer) POC Glucose (mg/dL) 276 H 275 H 318 H (65-110) mg/dL Random Glucose (75-110) mg/dL Calcium (8.6-10.4) mg/dl Phosphorus (2.5-4.5) mg/dL Magnesium (1.6-2.3) mg/dL Total Bilirubin (0.2-1.3) mg/dL AST (17-59) U/L ALT (21-72) U/L Alkaline Phosphatase (38-126) U/L Total Protein (6.3-8.3) g/dL Albumin (3.5-5.0) g/dL Globulin (2.2-3.9) gm/dL Albumin/Globulin Ratio (1.0-2.1) Random Vancomycin ug/mL 01/27/18 01/27/18 01/27/18 Range/Units 23:44 17:55 17:02 WBC (4.8-10.8) K/uL RBC (4.40-5.90) Mil/uL Hgb (12.0-18.0) g/dL Hct (35.0-51.0) % MCV (80.0-94.0) fL MCH (27.0-31.0) pg MCHC (33.0-37.0) g/dL RDW (11.5-14.5) % Plt Count (130-400) K/uL MPV (7.2-11.7) fL Neut % (Auto) (50.0-75.0) % Lymph % (Auto) (20.0-40.0) % Hayes % (Auto) (0.0-10.0) % Eos % (Auto) (0.0-4.0) % Baso % (Auto) (0.0-2.0) % Neut # (Auto) (1.8-7.0) K/uL Lymph # (Auto) (1.0-4.3) K/uL Hayes # (Auto) (0.0-0.8) K/uL Eos # (Auto) (0.0-0.7) K/uL Baso # (Auto) (0.0-0.2) K/uL Neutrophils % (Manual) (50-75) % Lymphocytes % (Manual) (20-40) % Monocytes % (Manual) (0-10) % Platelet Estimate (NORMAL) Polychromasia Hypochromasia (manual) Sodium (132-148) mmol/L Potassium (3.6-5.2) mmol/L Chloride (98-107) mmol/L Carbon Dioxide (22-30) mmol/L Anion Gap (10-20) BUN (9-20) mg/dL Creatinine (0.8-1.5) mg/dL Est GFR ( Amer) Est GFR (Non-Af Amer) POC Glucose (mg/dL) 243 H 151 H 179 H (65-110) mg/dL Random Glucose (75-110) mg/dL Calcium (8.6-10.4) mg/dl Phosphorus (2.5-4.5) mg/dL Magnesium (1.6-2.3) mg/dL Total Bilirubin (0.2-1.3) mg/dL AST (17-59) U/L ALT (21-72) U/L Alkaline Phosphatase (38-126) U/L Total Protein (6.3-8.3) g/dL Albumin (3.5-5.0) g/dL Globulin (2.2-3.9) gm/dL Albumin/Globulin Ratio (1.0-2.1) Random Vancomycin ug/mL 01/27/18 01/27/18 01/27/18 Range/Units 16:00 14:53 11:33 WBC (4.8-10.8) K/uL RBC (4.40-5.90) Mil/uL Hgb (12.0-18.0) g/dL Hct (35.0-51.0) % MCV (80.0-94.0) fL MCH (27.0-31.0) pg MCHC (33.0-37.0) g/dL RDW (11.5-14.5) % Plt Count (130-400) K/uL MPV (7.2-11.7) fL Neut % (Auto) (50.0-75.0) % Lymph % (Auto) (20.0-40.0) % Hayes % (Auto) (0.0-10.0) % Eos % (Auto) (0.0-4.0) % Baso % (Auto) (0.0-2.0) % Neut # (Auto) (1.8-7.0) K/uL Lymph # (Auto) (1.0-4.3) K/uL Hayes # (Auto) (0.0-0.8) K/uL Eos # (Auto) (0.0-0.7) K/uL Baso # (Auto) (0.0-0.2) K/uL Neutrophils % (Manual) (50-75) % Lymphocytes % (Manual) (20-40) % Monocytes % (Manual) (0-10) % Platelet Estimate (NORMAL) Polychromasia Hypochromasia (manual) Sodium (132-148) mmol/L Potassium (3.6-5.2) mmol/L Chloride (98-107) mmol/L Carbon Dioxide (22-30) mmol/L Anion Gap (10-20) BUN (9-20) mg/dL Creatinine (0.8-1.5) mg/dL Est GFR ( Amer) Est GFR (Non-Af Amer) POC Glucose (mg/dL) 240 H 294 H 418 H* (65-110) mg/dL Random Glucose (75-110) mg/dL Calcium (8.6-10.4) mg/dl Phosphorus (2.5-4.5) mg/dL Magnesium (1.6-2.3) mg/dL Total Bilirubin (0.2-1.3) mg/dL AST (17-59) U/L ALT (21-72) U/L Alkaline Phosphatase (38-126) U/L Total Protein (6.3-8.3) g/dL Albumin (3.5-5.0) g/dL Globulin (2.2-3.9) gm/dL Albumin/Globulin Ratio (1.0-2.1) Random Vancomycin ug/mL 01/27/18 01/27/18 01/27/18 Range/Units 11:30 07:48 07:45 WBC (4.8-10.8) K/uL RBC (4.40-5.90) Mil/uL Hgb (12.0-18.0) g/dL Hct (35.0-51.0) % MCV (80.0-94.0) fL MCH (27.0-31.0) pg MCHC (33.0-37.0) g/dL RDW (11.5-14.5) % Plt Count (130-400) K/uL MPV (7.2-11.7) fL Neut % (Auto) (50.0-75.0) % Lymph % (Auto) (20.0-40.0) % Hayes % (Auto) (0.0-10.0) % Eos % (Auto) (0.0-4.0) % Baso % (Auto) (0.0-2.0) % Neut # (Auto) (1.8-7.0) K/uL Lymph # (Auto) (1.0-4.3) K/uL Hayes # (Auto) (0.0-0.8) K/uL Eos # (Auto) (0.0-0.7) K/uL Baso # (Auto) (0.0-0.2) K/uL Neutrophils % (Manual) (50-75) % Lymphocytes % (Manual) (20-40) % Monocytes % (Manual) (0-10) % Platelet Estimate (NORMAL) Polychromasia Hypochromasia (manual) Sodium (132-148) mmol/L Potassium (3.6-5.2) mmol/L Chloride (98-107) mmol/L Carbon Dioxide (22-30) mmol/L Anion Gap (10-20) BUN (9-20) mg/dL Creatinine (0.8-1.5) mg/dL Est GFR ( Amer) Est GFR (Non-Af Amer) POC Glucose (mg/dL) 428 H* 400 H* 430 H* (65-110) mg/dL Random Glucose (75-110) mg/dL Calcium (8.6-10.4) mg/dl Phosphorus (2.5-4.5) mg/dL Magnesium (1.6-2.3) mg/dL Total Bilirubin (0.2-1.3) mg/dL AST (17-59) U/L ALT (21-72) U/L Alkaline Phosphatase (38-126) U/L Total Protein (6.3-8.3) g/dL Albumin (3.5-5.0) g/dL Globulin (2.2-3.9) gm/dL Albumin/Globulin Ratio (1.0-2.1) Random Vancomycin ug/mL 01/26/18 Range/Units 22:18 WBC (4.8-10.8) K/uL RBC (4.40-5.90) Mil/uL Hgb (12.0-18.0) g/dL Hct (35.0-51.0) % MCV (80.0-94.0) fL MCH (27.0-31.0) pg MCHC (33.0-37.0) g/dL RDW (11.5-14.5) % Plt Count (130-400) K/uL MPV (7.2-11.7) fL Neut % (Auto) (50.0-75.0) % Lymph % (Auto) (20.0-40.0) % Hayes % (Auto) (0.0-10.0) % Eos % (Auto) (0.0-4.0) % Baso % (Auto) (0.0-2.0) % Neut # (Auto) (1.8-7.0) K/uL Lymph # (Auto) (1.0-4.3) K/uL Hayes # (Auto) (0.0-0.8) K/uL Eos # (Auto) (0.0-0.7) K/uL Baso # (Auto) (0.0-0.2) K/uL Neutrophils % (Manual) (50-75) % Lymphocytes % (Manual) (20-40) % Monocytes % (Manual) (0-10) % Platelet Estimate (NORMAL) Polychromasia Hypochromasia (manual) Sodium (132-148) mmol/L Potassium (3.6-5.2) mmol/L Chloride (98-107) mmol/L Carbon Dioxide (22-30) mmol/L Anion Gap (10-20) BUN (9-20) mg/dL Creatinine (0.8-1.5) mg/dL Est GFR ( Amer) Est GFR (Non-Af Amer) POC Glucose (mg/dL) 304 H (65-110) mg/dL Random Glucose (75-110) mg/dL Calcium (8.6-10.4) mg/dl Phosphorus (2.5-4.5) mg/dL Magnesium (1.6-2.3) mg/dL Total Bilirubin (0.2-1.3) mg/dL AST (17-59) U/L ALT (21-72) U/L Alkaline Phosphatase (38-126) U/L Total Protein (6.3-8.3) g/dL Albumin (3.5-5.0) g/dL Globulin (2.2-3.9) gm/dL Albumin/Globulin Ratio (1.0-2.1) Random Vancomycin ug/mL Laboratory Results - last 24 hr 01/26/18 01/27/18 01/27/18 22:18 07:45 07:48 WBC RBC Hgb Hct MCV MCH MCHC RDW Plt Count MPV Neut % (Auto) Lymph % (Auto) Hayes % (Auto) Eos % (Auto) Baso % (Auto) Neut # (Auto) Lymph # (Auto) Hayes # (Auto) Eos # (Auto) Baso # (Auto) Neutrophils % (Manual) Lymphocytes % (Manual) Monocytes % (Manual) Platelet Estimate Polychromasia Hypochromasia (manual) Sodium Potassium Chloride Carbon Dioxide Anion Gap BUN Creatinine Est GFR ( Amer) Est GFR (Non-Af Amer) POC Glucose (mg/dL) 304 H 430 H* 400 H* Random Glucose Calcium Phosphorus Magnesium Total Bilirubin AST ALT Alkaline Phosphatase Total Protein Albumin Globulin Albumin/Globulin Ratio Random Vancomycin 01/27/18 01/27/18 01/27/18 11:30 11:33 14:53 WBC RBC Hgb Hct MCV MCH MCHC RDW Plt Count MPV Neut % (Auto) Lymph % (Auto) Hayes % (Auto) Eos % (Auto) Baso % (Auto) Neut # (Auto) Lymph # (Auto) Hayes # (Auto) Eos # (Auto) Baso # (Auto) Neutrophils % (Manual) Lymphocytes % (Manual) Monocytes % (Manual) Platelet Estimate Polychromasia Hypochromasia (manual) Sodium Potassium Chloride Carbon Dioxide Anion Gap BUN Creatinine Est GFR ( Amer) Est GFR (Non-Af Amer) POC Glucose (mg/dL) 428 H* 418 H* 294 H Random Glucose Calcium Phosphorus Magnesium Total Bilirubin AST ALT Alkaline Phosphatase Total Protein Albumin Globulin Albumin/Globulin Ratio Random Vancomycin 01/27/18 01/27/18 01/27/18 16:00 17:02 17:55 WBC RBC Hgb Hct MCV MCH MCHC RDW Plt Count MPV Neut % (Auto) Lymph % (Auto) Hayes % (Auto) Eos % (Auto) Baso % (Auto) Neut # (Auto) Lymph # (Auto) Hayes # (Auto) Eos # (Auto) Baso # (Auto) Neutrophils % (Manual) Lymphocytes % (Manual) Monocytes % (Manual) Platelet Estimate Polychromasia Hypochromasia (manual) Sodium Potassium Chloride Carbon Dioxide Anion Gap BUN Creatinine Est GFR ( Amer) Est GFR (Non-Af Amer) POC Glucose (mg/dL) 240 H 179 H 151 H Random Glucose Calcium Phosphorus Magnesium Total Bilirubin AST ALT Alkaline Phosphatase Total Protein Albumin Globulin Albumin/Globulin Ratio Random Vancomycin 01/27/18 01/28/18 01/28/18 23:44 07:02 11:39 WBC RBC Hgb Hct MCV MCH MCHC RDW Plt Count MPV Neut % (Auto) Lymph % (Auto) Hayes % (Auto) Eos % (Auto) Baso % (Auto) Neut # (Auto) Lymph # (Auto) Hayes # (Auto) Eos # (Auto) Baso # (Auto) Neutrophils % (Manual) Lymphocytes % (Manual) Monocytes % (Manual) Platelet Estimate Polychromasia Hypochromasia (manual) Sodium Potassium Chloride Carbon Dioxide Anion Gap BUN Creatinine Est GFR ( Amer) Est GFR (Non-Af Amer) POC Glucose (mg/dL) 243 H 318 H 275 H Random Glucose Calcium Phosphorus Magnesium Total Bilirubin AST ALT Alkaline Phosphatase Total Protein Albumin Globulin Albumin/Globulin Ratio Random Vancomycin 01/28/18 01/28/18 01/29/18 17:42 23:41 05:33 WBC RBC Hgb Hct MCV MCH MCHC RDW Plt Count MPV Neut % (Auto) Lymph % (Auto) Hayes % (Auto) Eos % (Auto) Baso % (Auto) Neut # (Auto) Lymph # (Auto) Hayes # (Auto) Eos # (Auto) Baso # (Auto) Neutrophils % (Manual) Lymphocytes % (Manual) Monocytes % (Manual) Platelet Estimate Polychromasia Hypochromasia (manual) Sodium Potassium Chloride Carbon Dioxide Anion Gap BUN Creatinine Est GFR ( Amer) Est GFR (Non-Af Amer) POC Glucose (mg/dL) 276 H 265 H 310 H Random Glucose Calcium Phosphorus Magnesium Total Bilirubin AST ALT Alkaline Phosphatase Total Protein Albumin Globulin Albumin/Globulin Ratio Random Vancomycin 01/29/18 01/29/18 01/29/18 11:45 17:24 23:17 WBC RBC Hgb Hct MCV MCH MCHC RDW Plt Count MPV Neut % (Auto) Lymph % (Auto) Hayes % (Auto) Eos % (Auto) Baso % (Auto) Neut # (Auto) Lymph # (Auto) Hayes # (Auto) Eos # (Auto) Baso # (Auto) Neutrophils % (Manual) Lymphocytes % (Manual) Monocytes % (Manual) Platelet Estimate Polychromasia Hypochromasia (manual) Sodium Potassium Chloride Carbon Dioxide Anion Gap BUN Creatinine Est GFR ( Amer) Est GFR (Non-Af Amer) POC Glucose (mg/dL) 275 H 243 H 228 H Random Glucose Calcium Phosphorus Magnesium Total Bilirubin AST ALT Alkaline Phosphatase Total Protein Albumin Globulin Albumin/Globulin Ratio Random Vancomycin 01/30/18 01/30/18 01/30/18 06:06 06:06 06:06 WBC 8.8 RBC 2.47 L Hgb 8.3 L Hct 22.7 L MCV 91.5 MCH 33.5 H MCHC 36.6 RDW 14.7 H Plt Count 162 MPV 9.2 Neut % (Auto) 86.0 H Lymph % (Auto) 9.8 L Hayes % (Auto) 4.0 Eos % (Auto) 0.0 Baso % (Auto) 0.2 Neut # (Auto) 7.6 H Lymph # (Auto) 0.9 L Hayes # (Auto) 0.3 Eos # (Auto) 0.0 Baso # (Auto) 0.0 Neutrophils % (Manual) 96 H Lymphocytes % (Manual) 2 L Monocytes % (Manual) 2 Platelet Estimate Normal Polychromasia Slight Hypochromasia (manual) Slight Sodium 145 Potassium 2.9 L Chloride 116 H Carbon Dioxide 20 L Anion Gap 12 BUN 39 H Creatinine 1.2 Est GFR ( Amer) > 60 Est GFR (Non-Af Amer) 59 POC Glucose (mg/dL) Random Glucose 277 H Calcium 8.8 Phosphorus 3.5 Magnesium 1.5 L Total Bilirubin 0.4 AST 19 ALT 44 Alkaline Phosphatase 76 Total Protein 4.7 L Albumin 2.1 L Globulin 2.6 Albumin/Globulin Ratio 0.8 L Random Vancomycin 15.3 01/30/18 06:24 WBC RBC Hgb Hct MCV MCH MCHC RDW Plt Count MPV Neut % (Auto) Lymph % (Auto) Hayes % (Auto) Eos % (Auto) Baso % (Auto) Neut # (Auto) Lymph # (Auto) Hayes # (Auto) Eos # (Auto) Baso # (Auto) Neutrophils % (Manual) Lymphocytes % (Manual) Monocytes % (Manual) Platelet Estimate Polychromasia Hypochromasia (manual) Sodium Potassium Chloride Carbon Dioxide Anion Gap BUN Creatinine Est GFR ( Amer) Est GFR (Non-Af Amer) POC Glucose (mg/dL) 328 H Random Glucose Calcium Phosphorus Magnesium Total Bilirubin AST ALT Alkaline Phosphatase Total Protein Albumin Globulin Albumin/Globulin Ratio Random Vancomycin Fingerstick Blood Sugar Results: 328 Review of Systems - Constitutional Constitutional: absent: Fever, Chills - Cardiovascular Cardiovascular: absent: Chest Pain - Gastrointestinal Gastrointestinal: Abdominal Pain - Musculoskeletal Musculoskeletal: UNREMARKABLE - Integumentary Integumentary: UNREMARKABLE - Neurological Neurological: UNREMARKABLE Assessment/Plan - Assessment and Plan (Free Text) Assessment: 77 y/o male with pmx of DM, PVD, h/o duodenal perforation s/p surgical correction presents to [facility] with abdominal pain and dx with incidental finding of pulmonary embolism. Plan: Neuro: GCS: 15 Sedation: None Cardio: A: NSTEMI (Type II), Hypotension, HLD, Multivessel CAD, Wide Complex Tachycardia (Resolved) Pressors: Levophed 4mcg/min | Phenlyephrine 20mcg/min ECHO on 12/25 showed 65%-70% EF and Grade I Abnormal Relaxation Pattern. Heparin Held 2/2 to GI Bleed Cardiology on Consult, Recs Appreciated Not a candidate for CABG per Cardiology Continue Crestor 20 HS Dig and Verapamil as BP Tolerates Pulm: A: PE No indication for full Anticoagulation due to adequate Oxygenation, only a small subsegmental defect on CT and Anemia Pulmonology on Consult, Recs Appreciated. ID A: Sepsis Blood Culture - NEGATIVE | Urine Culture - NEGATIVE | MRSA - Negative Flagyl 500 Q8H, Vancomycin 1g Daily, Aztreonam 2gm Q8H [employer] Coverage GI A: s/p Duodenal ulcer perforation repair, Abdominal Abcess Peripancreatic fluid collection measured 7 cm x 4 cm on 12/24/2017. It currently measures 6 x 1. 5cm Small peripancreatic fluid collection is not amendable to percutaneious drainage per IR. GI on Conuslt, Recs Appreciated IR on Consult, Recs Appreciated Gen Surg on Consult, Recs Appreciated Intralipid 20% IV QOD| Clinimix Heme/Onc A: Anemia, S/P 2 Units of PRBC Monitor H/H Proph Protonix 40 IV Q12 SCD's Patient seen and discussed with Attending Francisco Willis, PGY-1 <Obed Faye S - Last Filed: 01/30/18 17:13> CCU Objective - Vital Signs / Intake & Output Intake and Output (Last 8hrs): Intake & Output 01/30/18 01/30/18 01/30/18 06:59 14:59 22:59 Intake Total 921 961 Output Total 520 230 Balance 401 731 Weight 126 lb 0.8 oz Intake: Intake, IV Amount 921 961 Right Distal Port PICC 336 294 Right Proximal 1 252 Right Proximal Port PICC 333 667 Oral 0 0 Output: Gastric Amount 250 Left Nares 250 Urine 270 230 Urethral (Paulson) 270 230 Other: # Bowel Movements 0 0 - Medications Active Medications: Active Medications Generic Name Dose Route Start Last Admin Trade Name Freq PRN Reason Stop Dose Admin Hydrocortisone Sodium Succinate 50 mg 01/29/18 10:00 01/30/18 10:13 Solu-Cortef IV 50 mg Q12 KAROLINE Administration Hydromorphone HCl 0.5 mg 01/30/18 09:10 01/30/18 17:04 Dilaudid IVP 0.5 mg Q4H PRN Administration Pain, severe (8-10) Aztreonam 2 gm/ Sodium 100 mls @ 200 mls/hr 01/27/18 04:45 01/30/18 12:07 Chloride IVPB 200 mls/hr Q8H KAROLINE Administration Protocol Vancomycin HCl 1 gm/ Sodium 200 mls @ 133.333 mls/hr 01/27/18 05:00 01/30/18 06:41 Chloride IVPB 133.333 mls/hr Q24H KAROLINE Administration Protocol Metronidazole 500 mg in 100 mls @ 100 mls/hr 01/27/18 14:00 01/30/18 13:35 Flagyl IVPB 100 mls/hr Q8 KAROLINE Administration Protocol Multivitamins/Vitamin C 10 ml/ 1,011.1 mls @ 42.129 mls/hr 01/29/18 18:00 17:32 Chromium/Copper/Manganese/ IV 01/30/18 17:59 42.129 mls/hr Zinc 1 ml/ Insulin Human .Q24H KAROLINE Administration Regular 10 unit/ Amino Acids Fat Emulsion Intravenous 500 mls @ 42 mls/hr 01/29/18 18:00 01/29/18 17:28 Intralipid 20% IV 42 mls/hr QOD KAROLINE Administration Insulin Human Regular 20 unit/ 1,011.2 mls @ 60 mls/hr 01/30/18 18:00 17:03 Chromium/Copper/Manganese/ IV 01/31/18 10:51 60 mls/hr Zinc 1 ml/ Multivitamins/ .[id number] KAROLINE Administration Vitamin C 10 ml/ Amino Acids Insulin Human Regular 20 unit/ 1,001.2 mls @ 60 mls/hr 01/31/18 11:00 Chromium/Copper/Manganese/ IV 01/31/18 11:01 Zinc 1 ml/ Amino Acids .[id number] KAROLINE Insulin Aspart 0 unit 01/28/18 00:00 01/30/18 12:32 Novolog SC 6 unit Q6H KAROLINE Administration Protocol Multivitamins 1 tab 01/27/18 10:00 01/30/18 10:09 Hexavitamin PO 1 tab DAILY KAROLINE Administration Pantoprazole Sodium 40 mg 01/29/18 10:00 01/30/18 10:10 Protonix Inj IVP 40 mg Q12 KAROLINE Administration Rosuvastatin Calcium 20 mg 01/26/18 22:00 01/29/18 21:44 Crestor PO 20 mg HS KAROLINE Administration - Patient Studies Lab Studies: Microbiology Studies 01/27/18 08:57 Blood Culture - Preliminary Blood-Venous NO GROWTH AFTER 3 DAYS 01/27/18 08:57 Blood Culture - Preliminary Blood-Venous NO GROWTH AFTER 3 DAYS Lab Studies 01/30/18 01/30/18 01/30/18 Range/Units 12:04 06:24 06:06 WBC (4.8-10.8) K/uL RBC (4.40-5.90) Mil/uL Hgb (12.0-18.0) g/dL Hct (35.0-51.0) % MCV (80.0-94.0) fL MCH (27.0-31.0) pg MCHC (33.0-37.0) g/dL RDW (11.5-14.5) % Plt Count (130-400) K/uL MPV (7.2-11.7) fL Neut % (Auto) (50.0-75.0) % Lymph % (Auto) (20.0-40.0) % Hayes % (Auto) (0.0-10.0) % Eos % (Auto) (0.0-4.0) % Baso % (Auto) (0.0-2.0) % Neut # (Auto) (1.8-7.0) K/uL Lymph # (Auto) (1.0-4.3) K/uL Hayes # (Auto) (0.0-0.8) K/uL Eos # (Auto) (0.0-0.7) K/uL Baso # (Auto) (0.0-0.2) K/uL Neutrophils % (Manual) (50-75) % Lymphocytes % (Manual) (20-40) % Monocytes % (Manual) (0-10) % Platelet Estimate (NORMAL) Polychromasia Hypochromasia (manual) Sodium 145 (132-148) mmol/L Potassium 2.9 L (3.6-5.2) mmol/L Chloride 116 H (98-107) mmol/L Carbon Dioxide 20 L (22-30) mmol/L Anion Gap 12 (10-20) BUN 39 H (9-20) mg/dL Creatinine 1.2 (0.8-1.5) mg/dL Est GFR ( Amer) > 60 Est GFR (Non-Af Amer) 59 POC Glucose (mg/dL) 262 H 328 H (65-110) mg/dL Random Glucose 277 H (75-110) mg/dL Calcium 8.8 (8.6-10.4) mg/dl Phosphorus 3.5 (2.5-4.5) mg/dL Magnesium 1.5 L (1.6-2.3) mg/dL Total Bilirubin 0.4 (0.2-1.3) mg/dL AST 19 (17-59) U/L ALT 44 (21-72) U/L Alkaline Phosphatase 76 (38-126) U/L Total Protein 4.7 L (6.3-8.3) g/dL Albumin 2.1 L (3.5-5.0) g/dL Globulin 2.6 (2.2-3.9) gm/dL Albumin/Globulin Ratio 0.8 L (1.0-2.1) Random Vancomycin ug/mL 01/30/18 01/30/18 01/29/18 Range/Units 06:06 06:06 23:17 WBC 8.8 (4.8-10.8) K/uL RBC 2.47 L (4.40-5.90) Mil/uL Hgb 8.3 L (12.0-18.0) g/dL Hct 22.7 L (35.0-51.0) % MCV 91.5 (80.0-94.0) fL MCH 33.5 H (27.0-31.0) pg MCHC 36.6 (33.0-37.0) g/dL RDW 14.7 H (11.5-14.5) % Plt Count 162 (130-400) K/uL MPV 9.2 (7.2-11.7) fL Neut % (Auto) 86.0 H (50.0-75.0) % Lymph % (Auto) 9.8 L (20.0-40.0) % Hayes % (Auto) 4.0 (0.0-10.0) % Eos % (Auto) 0.0 (0.0-4.0) % Baso % (Auto) 0.2 (0.0-2.0) % Neut # (Auto) 7.6 H (1.8-7.0) K/uL Lymph # (Auto) 0.9 L (1.0-4.3) K/uL Hayes # (Auto) 0.3 (0.0-0.8) K/uL Eos # (Auto) 0.0 (0.0-0.7) K/uL Baso # (Auto) 0.0 (0.0-0.2) K/uL Neutrophils % (Manual) 96 H (50-75) % Lymphocytes % (Manual) 2 L (20-40) % Monocytes % (Manual) 2 (0-10) % Platelet Estimate Normal (NORMAL) Polychromasia Slight Hypochromasia (manual) Slight Sodium (132-148) mmol/L Potassium (3.6-5.2) mmol/L Chloride (98-107) mmol/L Carbon Dioxide (22-30) mmol/L Anion Gap (10-20) BUN (9-20) mg/dL Creatinine (0.8-1.5) mg/dL Est GFR ( Amer) Est GFR (Non-Af Amer) POC Glucose (mg/dL) 228 H (65-110) mg/dL Random Glucose (75-110) mg/dL Calcium (8.6-10.4) mg/dl Phosphorus (2.5-4.5) mg/dL Magnesium (1.6-2.3) mg/dL Total Bilirubin (0.2-1.3) mg/dL AST (17-59) U/L ALT (21-72) U/L Alkaline Phosphatase (38-126) U/L Total Protein (6.3-8.3) g/dL Albumin (3.5-5.0) g/dL Globulin (2.2-3.9) gm/dL Albumin/Globulin Ratio (1.0-2.1) Random Vancomycin 15.3 ug/mL 01/29/18 01/29/18 01/29/18 Range/Units 17:24 11:45 05:33 WBC (4.8-10.8) K/uL RBC (4.40-5.90) Mil/uL Hgb (12.0-18.0) g/dL Hct (35.0-51.0) % MCV (80.0-94.0) fL MCH (27.0-31.0) pg MCHC (33.0-37.0) g/dL RDW (11.5-14.5) % Plt Count (130-400) K/uL MPV (7.2-11.7) fL Neut % (Auto) (50.0-75.0) % Lymph % (Auto) (20.0-40.0) % Hayes % (Auto) (0.0-10.0) % Eos % (Auto) (0.0-4.0) % Baso % (Auto) (0.0-2.0) % Neut # (Auto) (1.8-7.0) K/uL Lymph # (Auto) (1.0-4.3) K/uL Hayes # (Auto) (0.0-0.8) K/uL Eos # (Auto) (0.0-0.7) K/uL Baso # (Auto) (0.0-0.2) K/uL Neutrophils % (Manual) (50-75) % Lymphocytes % (Manual) (20-40) % Monocytes % (Manual) (0-10) % Platelet Estimate (NORMAL) Polychromasia Hypochromasia (manual) Sodium (132-148) mmol/L Potassium (3.6-5.2) mmol/L Chloride (98-107) mmol/L Carbon Dioxide (22-30) mmol/L Anion Gap (10-20) BUN (9-20) mg/dL Creatinine (0.8-1.5) mg/dL Est GFR ( Amer) Est GFR (Non-Af Amer) POC Glucose (mg/dL) 243 H 275 H 310 H (65-110) mg/dL Random Glucose (75-110) mg/dL Calcium (8.6-10.4) mg/dl Phosphorus (2.5-4.5) mg/dL Magnesium (1.6-2.3) mg/dL Total Bilirubin (0.2-1.3) mg/dL AST (17-59) U/L ALT (21-72) U/L Alkaline Phosphatase (38-126) U/L Total Protein (6.3-8.3) g/dL Albumin (3.5-5.0) g/dL Globulin (2.2-3.9) gm/dL Albumin/Globulin Ratio (1.0-2.1) Random Vancomycin ug/mL 01/28/18 01/28/18 01/27/18 Range/Units 11:39 07:02 23:44 WBC (4.8-10.8) K/uL RBC (4.40-5.90) Mil/uL Hgb (12.0-18.0) g/dL Hct (35.0-51.0) % MCV (80.0-94.0) fL MCH (27.0-31.0) pg MCHC (33.0-37.0) g/dL RDW (11.5-14.5) % Plt Count (130-400) K/uL MPV (7.2-11.7) fL Neut % (Auto) (50.0-75.0) % Lymph % (Auto) (20.0-40.0) % Hayes % (Auto) (0.0-10.0) % Eos % (Auto) (0.0-4.0) % Baso % (Auto) (0.0-2.0) % Neut # (Auto) (1.8-7.0) K/uL Lymph # (Auto) (1.0-4.3) K/uL Hayes # (Auto) (0.0-0.8) K/uL Eos # (Auto) (0.0-0.7) K/uL Baso # (Auto) (0.0-0.2) K/uL Neutrophils % (Manual) (50-75) % Lymphocytes % (Manual) (20-40) % Monocytes % (Manual) (0-10) % Platelet Estimate (NORMAL) Polychromasia Hypochromasia (manual) Sodium (132-148) mmol/L Potassium (3.6-5.2) mmol/L Chloride (98-107) mmol/L Carbon Dioxide (22-30) mmol/L Anion Gap (10-20) BUN (9-20) mg/dL Creatinine (0.8-1.5) mg/dL Est GFR ( Amer) Est GFR (Non-Af Amer) POC Glucose (mg/dL) 275 H 318 H 243 H (65-110) mg/dL Random Glucose (75-110) mg/dL Calcium (8.6-10.4) mg/dl Phosphorus (2.5-4.5) mg/dL Magnesium (1.6-2.3) mg/dL Total Bilirubin (0.2-1.3) mg/dL AST (17-59) U/L ALT (21-72) U/L Alkaline Phosphatase (38-126) U/L Total Protein (6.3-8.3) g/dL Albumin (3.5-5.0) g/dL Globulin (2.2-3.9) gm/dL Albumin/Globulin Ratio (1.0-2.1) Random Vancomycin ug/mL 01/27/18 01/27/18 01/27/18 Range/Units 17:55 17:02 16:00 WBC (4.8-10.8) K/uL RBC (4.40-5.90) Mil/uL Hgb (12.0-18.0) g/dL Hct (35.0-51.0) % MCV (80.0-94.0) fL MCH (27.0-31.0) pg MCHC (33.0-37.0) g/dL RDW (11.5-14.5) % Plt Count (130-400) K/uL MPV (7.2-11.7) fL Neut % (Auto) (50.0-75.0) % Lymph % (Auto) (20.0-40.0) % Hayes % (Auto) (0.0-10.0) % Eos % (Auto) (0.0-4.0) % Baso % (Auto) (0.0-2.0) % Neut # (Auto) (1.8-7.0) K/uL Lymph # (Auto) (1.0-4.3) K/uL Hayes # (Auto) (0.0-0.8) K/uL Eos # (Auto) (0.0-0.7) K/uL Baso # (Auto) (0.0-0.2) K/uL Neutrophils % (Manual) (50-75) % Lymphocytes % (Manual) (20-40) % Monocytes % (Manual) (0-10) % Platelet Estimate (NORMAL) Polychromasia Hypochromasia (manual) Sodium (132-148) mmol/L Potassium (3.6-5.2) mmol/L Chloride (98-107) mmol/L Carbon Dioxide (22-30) mmol/L Anion Gap (10-20) BUN (9-20) mg/dL Creatinine (0.8-1.5) mg/dL Est GFR ( Amer) Est GFR (Non-Af Amer) POC Glucose (mg/dL) 151 H 179 H 240 H (65-110) mg/dL Random Glucose (75-110) mg/dL Calcium (8.6-10.4) mg/dl Phosphorus (2.5-4.5) mg/dL Magnesium (1.6-2.3) mg/dL Total Bilirubin (0.2-1.3) mg/dL AST (17-59) U/L ALT (21-72) U/L Alkaline Phosphatase (38-126) U/L Total Protein (6.3-8.3) g/dL Albumin (3.5-5.0) g/dL Globulin (2.2-3.9) gm/dL Albumin/Globulin Ratio (1.0-2.1) Random Vancomycin ug/mL 01/27/18 01/27/18 01/27/18 Range/Units 14:53 11:33 11:30 WBC (4.8-10.8) K/uL RBC (4.40-5.90) Mil/uL Hgb (12.0-18.0) g/dL Hct (35.0-51.0) % MCV (80.0-94.0) fL MCH (27.0-31.0) pg MCHC (33.0-37.0) g/dL RDW (11.5-14.5) % Plt Count (130-400) K/uL MPV (7.2-11.7) fL Neut % (Auto) (50.0-75.0) % Lymph % (Auto) (20.0-40.0) % Hayes % (Auto) (0.0-10.0) % Eos % (Auto) (0.0-4.0) % Baso % (Auto) (0.0-2.0) % Neut # (Auto) (1.8-7.0) K/uL Lymph # (Auto) (1.0-4.3) K/uL Hayes # (Auto) (0.0-0.8) K/uL Eos # (Auto) (0.0-0.7) K/uL Baso # (Auto) (0.0-0.2) K/uL Neutrophils % (Manual) (50-75) % Lymphocytes % (Manual) (20-40) % Monocytes % (Manual) (0-10) % Platelet Estimate (NORMAL) Polychromasia Hypochromasia (manual) Sodium (132-148) mmol/L Potassium (3.6-5.2) mmol/L Chloride (98-107) mmol/L Carbon Dioxide (22-30) mmol/L Anion Gap (10-20) BUN (9-20) mg/dL Creatinine (0.8-1.5) mg/dL Est GFR ( Amer) Est GFR (Non-Af Amer) POC Glucose (mg/dL) 294 H 418 H* 428 H* (65-110) mg/dL Random Glucose (75-110) mg/dL Calcium (8.6-10.4) mg/dl Phosphorus (2.5-4.5) mg/dL Magnesium (1.6-2.3) mg/dL Total Bilirubin (0.2-1.3) mg/dL AST (17-59) U/L ALT (21-72) U/L Alkaline Phosphatase (38-126) U/L Total Protein (6.3-8.3) g/dL Albumin (3.5-5.0) g/dL Globulin (2.2-3.9) gm/dL Albumin/Globulin Ratio (1.0-2.1) Random Vancomycin ug/mL 01/27/18 01/27/18 Range/Units 07:48 07:45 WBC (4.8-10.8) K/uL RBC (4.40-5.90) Mil/uL Hgb (12.0-18.0) g/dL Hct (35.0-51.0) % MCV (80.0-94.0) fL MCH (27.0-31.0) pg MCHC (33.0-37.0) g/dL RDW (11.5-14.5) % Plt Count (130-400) K/uL MPV (7.2-11.7) fL Neut % (Auto) (50.0-75.0) % Lymph % (Auto) (20.0-40.0) % Hayes % (Auto) (0.0-10.0) % Eos % (Auto) (0.0-4.0) % Baso % (Auto) (0.0-2.0) % Neut # (Auto) (1.8-7.0) K/uL Lymph # (Auto) (1.0-4.3) K/uL Hayes # (Auto) (0.0-0.8) K/uL Eos # (Auto) (0.0-0.7) K/uL Baso # (Auto) (0.0-0.2) K/uL Neutrophils % (Manual) (50-75) % Lymphocytes % (Manual) (20-40) % Monocytes % (Manual) (0-10) % Platelet Estimate (NORMAL) Polychromasia Hypochromasia (manual) Sodium (132-148) mmol/L Potassium (3.6-5.2) mmol/L Chloride (98-107) mmol/L Carbon Dioxide (22-30) mmol/L Anion Gap (10-20) BUN (9-20) mg/dL Creatinine (0.8-1.5) mg/dL Est GFR ( Amer) Est GFR (Non-Af Amer) POC Glucose (mg/dL) 400 H* 430 H* (65-110) mg/dL Random Glucose (75-110) mg/dL Calcium (8.6-10.4) mg/dl Phosphorus (2.5-4.5) mg/dL Magnesium (1.6-2.3) mg/dL Total Bilirubin (0.2-1.3) mg/dL AST (17-59) U/L ALT (21-72) U/L Alkaline Phosphatase (38-126) U/L Total Protein (6.3-8.3) g/dL Albumin (3.5-5.0) g/dL Globulin (2.2-3.9) gm/dL Albumin/Globulin Ratio (1.0-2.1) Random Vancomycin ug/mL Laboratory Results - last 24 hr 01/27/18 01/27/18 01/27/18 07:45 07:48 11:30 WBC RBC Hgb Hct MCV MCH MCHC RDW Plt Count MPV Neut % (Auto) Lymph % (Auto) Hayes % (Auto) Eos % (Auto) Baso % (Auto) Neut # (Auto) Lymph # (Auto) Hayes # (Auto) Eos # (Auto) Baso # (Auto) Neutrophils % (Manual) Lymphocytes % (Manual) Monocytes % (Manual) Platelet Estimate Polychromasia Hypochromasia (manual) Sodium Potassium Chloride Carbon Dioxide Anion Gap BUN Creatinine Est GFR ( Amer) Est GFR (Non-Af Amer) POC Glucose (mg/dL) 430 H* 400 H* 428 H* Random Glucose Calcium Phosphorus Magnesium Total Bilirubin AST ALT Alkaline Phosphatase Total Protein Albumin Globulin Albumin/Globulin Ratio Random Vancomycin 01/27/18 01/27/18 01/27/18 11:33 14:53 16:00 WBC RBC Hgb Hct MCV MCH MCHC RDW Plt Count MPV Neut % (Auto) Lymph % (Auto) Hayes % (Auto) Eos % (Auto) Baso % (Auto) Neut # (Auto) Lymph # (Auto) Hayes # (Auto) Eos # (Auto) Baso # (Auto) Neutrophils % (Manual) Lymphocytes % (Manual) Monocytes % (Manual) Platelet Estimate Polychromasia Hypochromasia (manual) Sodium Potassium Chloride Carbon Dioxide Anion Gap BUN Creatinine Est GFR ( Amer) Est GFR (Non-Af Amer) POC Glucose (mg/dL) 418 H* 294 H 240 H Random Glucose Calcium Phosphorus Magnesium Total Bilirubin AST ALT Alkaline Phosphatase Total Protein Albumin Globulin Albumin/Globulin Ratio Random Vancomycin 01/27/18 01/27/18 01/27/18 17:02 17:55 23:44 WBC RBC Hgb Hct MCV MCH MCHC RDW Plt Count MPV Neut % (Auto) Lymph % (Auto) Hayes % (Auto) Eos % (Auto) Baso % (Auto) Neut # (Auto) Lymph # (Auto) Hayes # (Auto) Eos # (Auto) Baso # (Auto) Neutrophils % (Manual) Lymphocytes % (Manual) Monocytes % (Manual) Platelet Estimate Polychromasia Hypochromasia (manual) Sodium Potassium Chloride Carbon Dioxide Anion Gap BUN Creatinine Est GFR ( Amer) Est GFR (Non-Af Amer) POC Glucose (mg/dL) 179 H 151 H 243 H Random Glucose Calcium Phosphorus Magnesium Total Bilirubin AST ALT Alkaline Phosphatase Total Protein Albumin Globulin Albumin/Globulin Ratio Random Vancomycin 01/28/18 01/28/18 01/29/18 07:02 11:39 05:33 WBC RBC Hgb Hct MCV MCH MCHC RDW Plt Count MPV Neut % (Auto) Lymph % (Auto) Hayes % (Auto) Eos % (Auto) Baso % (Auto) Neut # (Auto) Lymph # (Auto) Hayes # (Auto) Eos # (Auto) Baso # (Auto) Neutrophils % (Manual) Lymphocytes % (Manual) Monocytes % (Manual) Platelet Estimate Polychromasia Hypochromasia (manual) Sodium Potassium Chloride Carbon Dioxide Anion Gap BUN Creatinine Est GFR ( Amer) Est GFR (Non-Af Amer) POC Glucose (mg/dL) 318 H 275 H 310 H Random Glucose Calcium Phosphorus Magnesium Total Bilirubin AST ALT Alkaline Phosphatase Total Protein Albumin Globulin Albumin/Globulin Ratio Random Vancomycin 01/29/18 01/29/18 01/29/18 11:45 17:24 23:17 WBC RBC Hgb Hct MCV MCH MCHC RDW Plt Count MPV Neut % (Auto) Lymph % (Auto) Hayes % (Auto) Eos % (Auto) Baso % (Auto) Neut # (Auto) Lymph # (Auto) Hayes # (Auto) Eos # (Auto) Baso # (Auto) Neutrophils % (Manual) Lymphocytes % (Manual) Monocytes % (Manual) Platelet Estimate Polychromasia Hypochromasia (manual) Sodium Potassium Chloride Carbon Dioxide Anion Gap BUN Creatinine Est GFR ( Amer) Est GFR (Non-Af Amer) POC Glucose (mg/dL) 275 H 243 H 228 H Random Glucose Calcium Phosphorus Magnesium Total Bilirubin AST ALT Alkaline Phosphatase Total Protein Albumin Globulin Albumin/Globulin Ratio Random Vancomycin 01/30/18 01/30/18 01/30/18 06:06 06:06 06:06 WBC 8.8 RBC 2.47 L Hgb 8.3 L Hct 22.7 L MCV 91.5 MCH 33.5 H MCHC 36.6 RDW 14.7 H Plt Count 162 MPV 9.2 Neut % (Auto) 86.0 H Lymph % (Auto) 9.8 L Hayes % (Auto) 4.0 Eos % (Auto) 0.0 Baso % (Auto) 0.2 Neut # (Auto) 7.6 H Lymph # (Auto) 0.9 L Hayes # (Auto) 0.3 Eos # (Auto) 0.0 Baso # (Auto) 0.0 Neutrophils % (Manual) 96 H Lymphocytes % (Manual) 2 L Monocytes % (Manual) 2 Platelet Estimate Normal Polychromasia Slight Hypochromasia (manual) Slight Sodium 145 Potassium 2.9 L Chloride 116 H Carbon Dioxide 20 L Anion Gap 12 BUN 39 H Creatinine 1.2 Est GFR ( Amer) > 60 Est GFR (Non-Af Amer) 59 POC Glucose (mg/dL) Random Glucose 277 H Calcium 8.8 Phosphorus 3.5 Magnesium 1.5 L Total Bilirubin 0.4 AST 19 ALT 44 Alkaline Phosphatase 76 Total Protein 4.7 L Albumin 2.1 L Globulin 2.6 Albumin/Globulin Ratio 0.8 L Random Vancomycin 15.3 01/30/18 01/30/18 06:24 12:04 WBC RBC Hgb Hct MCV MCH MCHC RDW Plt Count MPV Neut % (Auto) Lymph % (Auto) Hayes % (Auto) Eos % (Auto) Baso % (Auto) Neut # (Auto) Lymph # (Auto) Hayes # (Auto) Eos # (Auto) Baso # (Auto) Neutrophils % (Manual) Lymphocytes % (Manual) Monocytes % (Manual) Platelet Estimate Polychromasia Hypochromasia (manual) Sodium Potassium Chloride Carbon Dioxide Anion Gap BUN Creatinine Est GFR ( Amer) Est GFR (Non-Af Amer) POC Glucose (mg/dL) 328 H 262 H Random Glucose Calcium Phosphorus Magnesium Total Bilirubin AST ALT Alkaline Phosphatase Total Protein Albumin Globulin Albumin/Globulin Ratio Random Vancomycin Assessment/Plan (1) Hypotension (arterial) Current Visit: Yes Status: Acute (2) Abdominal pain Current Visit: Yes Status: Acute (3) Pulmonary embolism Current Visit: Yes Status: Acute (4) Acute non-ST elevation myocardial infarction (NSTEMI) Current Visit: No Status: Acute Attending/Attestation - Attestation I have personally seen and examined this patient.: Yes I have fully participated in the care of the patient.: Yes I have reviewed all pertinent clinical information: Yes Notes (Text): 01/30/18 17:12 patient seen and examined in the intensive care unit. Still complaining of abdominal pain though much better Afebrile Patient is off pressors On IV antibiotics Not enough fluid for drainage by IR Seen by surgery Continue TPN"
--- NOTE | 2018-01-30 10:30 | CP.PCM.PN ---
Subjective - Date & Time of Evaluation Date of Evaluation: 01/30/18 Time of Evaluation: 10:10 - Subjective Subjective: patient remains in ICU. no clincal change Objective - Vital Signs/Intake and Output Vital Signs (last 24 hours): Temp Pulse Resp BP Pulse Ox 97.8 F 86 14 103/56 L 100 01/30/18 08:00 01/30/18 09:45 01/30/18 09:45 01/30/18 09:45 01/30/18 09:45 Intake and Output: 01/30/18 01/30/18 06:59 18:59 Intake Total 1557 393 Output Total 665 120 Balance 892 273 - Medications Medications: Current Medications Hydrocortisone Sodium Succinate (Solu-Cortef) 50 mg IV Q12 [facility] Last Admin: 01/30/18 10:13 Dose: 50 mg Hydromorphone HCl (Dilaudid) 0.5 mg IVP Q4H PRN PRN Reason: Pain, severe (8-10) Aztreonam 2 gm/ Sodium (Chloride) 100 mls @ 200 mls/hr IVPB Q8H [facility] PRN Reason: Protocol Last Admin: 01/30/18 03:58 Dose: 200 mls/hr Vancomycin HCl 1 gm/ Sodium (Chloride) 200 mls @ 133.333 mls/hr IVPB Q24H [facility] PRN Reason: Protocol Last Admin: 01/30/18 06:41 Dose: 133.333 mls/hr Metronidazole (Flagyl) 500 mg in 100 mls @ 100 mls/hr IVPB Q8 [facility] PRN Reason: Protocol Last Admin: 01/30/18 05:15 Dose: 100 mls/hr Multivitamins/Vitamin C 10 ml/Chromium/Copper/Manganese/Zinc 1 ml/ Insulin Human Regular 10 unit/ Amino Acids 1,011.1 mls @ 42.129 mls/hr IV .Q24H [facility] Stop: 01/30/18 17:59 Last Admin: 01/29/18 17:32 Dose: 42.129 mls/hr Fat Emulsion Intravenous (Intralipid 20%) 500 mls @ 42 mls/hr IV QOD [facility] Last Admin: 01/29/18 17:28 Dose: 42 mls/hr Potassium Chloride (Potassium Chloride 20 Meq/100 Ml) 20 meq in 100 mls @ 100 mls/hr IVPB ONCE ONE Stop: 01/30/18 10:29 Potassium Chloride (Potassium Chloride 20 Meq/100 Ml) 20 meq in 100 mls @ 100 mls/hr IVPB ONCE ONE Stop: 01/30/18 10:29 Insulin Aspart (Novolog) 0 unit SC Q6H [facility] PRN Reason: Protocol Last Admin: 01/30/18 06:40 Dose: 8 unit Multivitamins (Hexavitamin) 1 tab PO DAILY [facility] Last Admin: 01/30/18 10:09 Dose: 1 tab Pantoprazole Sodium (Protonix Inj) 40 mg IVP Q12 [facility] Last Admin: 01/30/18 10:10 Dose: 40 mg Rosuvastatin Calcium (Crestor) 20 mg PO HS [facility] Last Admin: 01/29/18 21:44 Dose: 20 mg - Labs Labs: 01/30/18 06:06 01/30/18 06:06 PT 15.5 SECONDS (9.7-12.2) H 01/27/18 03:11 INR 1.4 01/27/18 03:11 APTT 29 SECONDS (21-34) D 01/28/18 07:09 - Constitutional Appears: Non-toxic, Cachectic, Chronically Ill - Head Exam Head Exam: NORMAL INSPECTION - Eye Exam Eye Exam: Normal appearance - ENT Exam ENT Exam: Mucous Membranes Dry - Neck Exam Neck Exam: Normal Inspection - Respiratory Exam Respiratory Exam: Decreased Breath Sounds - Cardiovascular Exam Cardiovascular Exam: REGULAR RHYTHM - GI/Abdominal Exam GI & Abdominal Exam: Hypoactive Bowel Sounds - Rectal Exam Rectal Exam: Deferred - Extremities Exam Extremities Exam: Pedal Edema - Back Exam Back Exam: NORMAL INSPECTION - Psychiatric Exam Psychiatric exam: Flat Affect - Skin Skin Exam: Normal Color Assessment and Plan (1) CAD (coronary artery disease) Assessment & Plan: medical therapy. not candidate for CABG. Status: Acute
[2018-01-30] MEDS: HYDROmorphone 0.5 mg/0.5 ml ISec IVP PRN ×2 (11:00→17:04)
--- NOTE | 2018-01-30 15:34 | CARD ---
APPROVED REPORT EKG Measurement Heart [id number] <Conclusion> Sinus tachycardia Left anterior fascicular block Cannot rule out Inferior infarct (masked by fascicular block?), age undetermined Possible Anterolateral infarct, age undetermined Abnormal ECG
[2018-01-30] MEDS ORDERED: *** PPN # 2 IV SCH (18:00)
[2018-01-31] MEDS: (Novolog) Insulin Aspart, Recombinant 100 u/ml 10 ml vial SC SCH ×4 (00:30→17:48)
--- NOTE | 2018-01-31 01:16 | CP.PCM.PN ---
Subjective - Date & Time of Evaluation Date of Evaluation: 01/30/18 Time of Evaluation: 20:00 - Subjective Subjective: Pt is weak, he has generalized aches and pain, he is seen by surgery, he is on accucheck, sliding scale insulin, pt power of assistant city attorney Laura is on bedside, she is considering DNR, DNI due to pt poor prognosis Objective - Vital Signs/Intake and Output Vital Signs (last 24 hours): Temp Pulse Resp BP Pulse Ox 97.5 F L 74 10 L 135/73 100 01/31/18 00:00 01/31/18 00:45 01/31/18 00:45 01/31/18 00:45 01/31/18 00:45 Intake and Output: 01/30/18 01/31/18 18:59 06:59 Intake Total 1189 560 Output Total 270 Balance 919 560 - Medications Medications: Current Medications Hydrocortisone Sodium Succinate (Solu-Cortef) 50 mg IV Q12 [facility] Last Admin: 01/30/18 21:58 Dose: 50 mg Hydromorphone HCl (Dilaudid) 0.5 mg IVP Q4H PRN PRN Reason: Pain, severe (8-10) Last Admin: 01/30/18 17:04 Dose: 0.5 mg Aztreonam 2 gm/ Sodium (Chloride) 100 mls @ 200 mls/hr IVPB Q8H [facility] PRN Reason: Protocol Last Admin: 01/30/18 20:53 Dose: 200 mls/hr Vancomycin HCl 1 gm/ Sodium (Chloride) 200 mls @ 133.333 mls/hr IVPB Q24H [facility] PRN Reason: Protocol Last Admin: 01/30/18 06:41 Dose: 133.333 mls/hr Metronidazole (Flagyl) 500 mg in 100 mls @ 100 mls/hr IVPB Q8 [facility] PRN Reason: Protocol Last Admin: 01/30/18 21:57 Dose: 100 mls/hr Fat Emulsion Intravenous (Intralipid 20%) 500 mls @ 42 mls/hr IV QOD [facility] Last Admin: 01/29/18 17:28 Dose: 42 mls/hr Insulin Human Regular 20 unit/Chromium/Copper/Manganese/Zinc 1 ml/ Multivitamins /Vitamin C 10 ml/ Amino Acids 1,011.2 mls @ 60 mls/hr IV .[id number] [facility] Stop: 01/31/18 10:51 Last Admin: 01/30/18 17:03 Dose: 60 mls/hr Insulin Human Regular 20 unit/Chromium/Copper/Manganese/Zinc 1 ml/ Amino Acids 1,001.2 mls @ 60 mls/hr IV .[id number] [facility] Stop: 01/31/18 11:01 Insulin Aspart (Novolog) 0 unit SC Q6H [facility] PRN Reason: Protocol Last Admin: 01/30/18 19:00 Dose: 4 unit Multivitamins (Hexavitamin) 1 tab PO DAILY [facility] Last Admin: 01/30/18 10:09 Dose: 1 tab Pantoprazole Sodium (Protonix Inj) 40 mg IVP Q12 [facility] Last Admin: 01/30/18 21:58 Dose: 40 mg Rosuvastatin Calcium (Crestor) 20 mg PO HS [facility] Last Admin: 01/30/18 21:50 Dose: Not Given - Labs Labs: 01/30/18 06:06 01/30/18 06:06 PT 15.5 SECONDS (9.7-12.2) H 01/27/18 03:11 INR 1.4 01/27/18 03:11 APTT 29 SECONDS (21-34) D 01/28/18 07:09 - Constitutional Appears: No Acute Distress - Head Exam Head Exam: ATRAUMATIC, NORMAL INSPECTION, NORMOCEPHALIC - Eye Exam Eye Exam: EOMI, Normal appearance, PERRL Pupil Exam: NORMAL ACCOMODATION, PERRL - Respiratory Exam Respiratory Exam: Clear to Ausculation Bilateral, NORMAL BREATHING PATTERN - Cardiovascular Exam Cardiovascular Exam: REGULAR RHYTHM, +S1, +S2. absent: Murmur - GI/Abdominal Exam GI & Abdominal Exam: Soft, Normal Bowel Sounds. absent: Tenderness Assessment and Plan (1) Abdominal pain Status: Acute (2) Hypotension (arterial) Status: Acute (3) Pulmonary embolism Status: Acute (4) Upper GI bleed Status: Acute (5) Acute non-ST elevation myocardial infarction (NSTEMI) Status: Acute (6) CHF (congestive heart failure) Status: Acute (7) Diabetes mellitus Status: Acute (8) Diabetic nephropathy Status: Acute (9) Failure to thrive in adult Status: Acute
[2018-01-31] MEDS: Aztreonam 2 GM in Sodium Chloride 0.9% 100 ML IVPB SCH ×3 (04:13→20:07)
[2018-01-31] MEDS: Vancomycin 1 GM in Sodium Chloride 0.9% 200 ML IVPB SCH (04:55)
[2018-01-31 06:35] LABS: BASO % 0.1 % (0.0-2.0); EOS % 0.3 % (0.0-4.0); HEMOGLOBIN 7.7 g/dL (12.0-18.0); LYMPH # 1.1 K/uL (1.0-4.3); LYMPH % 15.3 % (20.0-40.0); MEAN CELL VOLUME 90.6 fL (80.0-94.0); MEAN CORPUSCULAR HEMOGLOBIN 30.1 pg (27.0-31.0); MEAN CORPUSCULAR HGB CONC 33.2 g/dL (33.0-37.0); MEAN PLATELET VOLUME 8.9 fL (7.2-11.7); MONO # 0.4 K/uL (0.0-0.8); MONO % 5.4 % (0.0-10.0); NEUT # 5.5 K/uL (1.8-7.0); NEUT % 78.9 % (50.0-75.0); NRBC % 0.2 % (0.0-2.0); RBC 2.57 Mil/uL (4.40-5.90); RED CELL DISTRIBUTION WIDTH 14.7 % (11.5-14.5)
[2018-01-31] MEDS: metroNIDAZOLE IV 500 mg/100 ml 500 MG/100 ML BAG IVPB SCH ×3 (06:40→21:36)
[2018-01-31 06:48] LABS: ALB/GLOB RATIO 0.8 (1.0-2.1); ALBUMIN 2.1 g/dL (3.5-5.0); ALT/SGPT 36 U/L (21-72); AST/SGOT 23 U/L (17-59); BLOOD UREA NITROGEN 38 mg/dL (9-20); GFR AFRICAN-AMERICAN > 60; GFR NON-AFRICAN AMERICAN > 60
[2018-01-31] MEDS: *** PPN # 3 IV SCH ×2 (09:25→11:35)
--- NOTE | 2018-01-31 10:00 | CP.PCM.PN ---
<Kobi Schwartz - Last Filed: 01/31/18 14:40> Subjective - Date & Time of Evaluation Date of Evaluation: 01/31/18 Time of Evaluation: 09:00 - Subjective Subjective: Surgery- Dr. Villa Patient seen and examined at bedside this AM. upright in chair. Pt refused PO intake yesterday by speech and language patholgist. Continuing to pass flatus and have BM. Objective - Vital Signs/Intake and Output Vital Signs (last 24 hours): Temp Pulse Resp BP Pulse Ox 97.8 F 73 13 123/66 100 01/31/18 08:00 01/31/18 08:00 01/31/18 08:00 01/31/18 07:45 01/31/18 08:00 Intake and Output: 01/31/18 01/31/18 06:59 18:59 Intake Total 1220 220 Output Total 450 Balance 770 220 - Medications Medications: Current Medications Hydrocortisone Sodium Succinate (Solu-Cortef) 50 mg IV Q12 [facility] Last Admin: 01/31/18 09:27 Dose: 50 mg Hydromorphone HCl (Dilaudid) 0.5 mg IVP Q4H PRN PRN Reason: Pain, severe (8-10) Last Admin: 01/30/18 17:04 Dose: 0.5 mg Aztreonam 2 gm/ Sodium (Chloride) 100 mls @ 200 mls/hr IVPB Q8H [facility] PRN Reason: Protocol Last Admin: 01/31/18 04:13 Dose: 200 mls/hr Vancomycin HCl 1 gm/ Sodium (Chloride) 200 mls @ 133.333 mls/hr IVPB Q24H [facility] PRN Reason: Protocol Last Admin: 01/31/18 04:55 Dose: 133.333 mls/hr Metronidazole (Flagyl) 500 mg in 100 mls @ 100 mls/hr IVPB Q8 [facility] PRN Reason: Protocol Last Admin: 01/31/18 06:40 Dose: 100 mls/hr Fat Emulsion Intravenous (Intralipid 20%) 500 mls @ 42 mls/hr IV QOD [facility] Last Admin: 01/29/18 17:28 Dose: 42 mls/hr Insulin Human Regular 20 unit/Chromium/Copper/Manganese/Zinc 1 ml/ Multivitamins /Vitamin C 10 ml/ Amino Acids 1,011.2 mls @ 60 mls/hr IV .[id number] [facility] Stop: 01/31/18 10:51 Last Admin: 01/30/18 17:03 Dose: 60 mls/hr Insulin Human Regular 20 unit/Chromium/Copper/Manganese/Zinc 1 ml/ Amino Acids 1,001.2 mls @ 60 mls/hr IV .[id number] [facility] Stop: 01/31/18 11:01 Last Admin: 01/31/18 09:25 Dose: 60 mls/hr Insulin Human Regular 20 unit/Chromium/Copper/Manganese/Zinc 1 ml/ Multivitamins /Vitamin C 10 ml/ Amino Acids 1,011.2 mls @ 60 mls/hr IV .[id number] [facility] Stop: 02/01/18 10:51 Insulin Aspart (Novolog) 0 unit SC Q6H [facility] PRN Reason: Protocol Last Admin: 01/31/18 06:46 Dose: 6 unit Multivitamins (Hexavitamin) 1 tab PO DAILY [facility] Last Admin: 01/30/18 10:09 Dose: 1 tab Pantoprazole Sodium (Protonix Inj) 40 mg IVP Q12 [facility] Last Admin: 01/31/18 09:27 Dose: 40 mg Rosuvastatin Calcium (Crestor) 20 mg PO HS [facility] Last Admin: 01/30/18 21:50 Dose: Not Given - Labs Labs: 01/31/18 06:28 01/31/18 06:28 PT 15.5 SECONDS (9.7-12.2) H 01/27/18 03:11 INR 1.4 01/27/18 03:11 APTT 29 SECONDS (21-34) D 01/28/18 07:09 - Constitutional Appears: Non-toxic, No Acute Distress, Chronically Ill - Head Exam Head Exam: ATRAUMATIC - ENT Exam ENT Exam: Mucous Membranes Moist - Respiratory Exam Respiratory Exam: absent: Accessory Muscle Use, Respiratory Distress - Cardiovascular Exam Cardiovascular Exam: +S1, +S2. absent: Bradycardia, Tachycardia - GI/Abdominal Exam GI & Abdominal Exam: Soft. absent: Distended, Firm, Guarding, Rigid, Tenderness - Neurological Exam Neurological Exam: Awake - Skin Skin Exam: Intact, Warm Assessment and Plan - Assessment and Plan (Free Text) Assessment: 77M w/ PE, intra-abdominal abscess, and chronic constipation Plan: - recommend NGT off suction and start tube feeds - can start CLD if pt tolerates - no acute surgical intervention at this time - further recs [facility] Dr[facility] <Fred Villa - Last Filed: 02/04/18 14:48> Objective - Vital Signs/Intake and Output Vital Signs (last 24 hours): Temp Pulse Resp BP Pulse Ox 98.7 F 90 12 124/67 92 L 02/04/18 12:00 02/04/18 13:00 02/04/18 13:00 02/04/18 12:51 02/04/18 13:00 Intake and Output: 02/04/18 02/04/18 06:59 18:59 Intake Total 908 980 Output Total 1300 0 Balance -392 980 - Medications Medications: Current Medications Hydromorphone HCl (Dilaudid) 0.5 mg IVP Q4H PRN PRN Reason: Pain, severe (8-10) Last Admin: 02/03/18 22:41 Dose: 0.5 mg Dextrose (Dextrose 5% In Water 1000 Ml) 1,000 mls @ 42 mls/hr IV .[id number] [facility] Last Admin: 02/04/18 08:21 Dose: Not Given Pantoprazole Sodium 80 mg/ (Sodium Chloride) 100 mls @ 10 mls/hr IVPB .Q10H [facility] PRN Reason: 8 MG/HR Last Admin: 02/04/18 06:00 Dose: 10 mls/hr Aztreonam 2 gm/ Sodium (Chloride) 100 mls @ 100 mls/hr IVPB Q8H [facility] PRN Reason: Protocol Last Admin: 02/04/18 13:44 Dose: 100 mls/hr Metronidazole (Flagyl) 500 mg in 100 mls @ 100 mls/hr IVPB Q8 [facility] PRN Reason: Protocol Last Admin: 02/04/18 13:05 Dose: 100 mls/hr Insulin Aspart (Novolog) 0 unit SC Q6H [facility] PRN Reason: Protocol Last Admin: 02/04/18 12:29 Dose: 6 unit Insulin Glargine (Lantus) 10 unit SC DAILY [facility] Last Admin: 02/04/18 09:18 Dose: 10 units Midodrine (Proamatine) 2.5 mg PO TID [facility] Last Admin: 02/04/18 13:05 Dose: 2.5 mg Multivitamins (Hexavitamin) 1 tab PO DAILY [facility] Last Admin: 02/04/18 09:18 Dose: 1 tab Rosuvastatin Calcium (Crestor) 20 mg PO HS [facility] Last Admin: 02/03/18 21:32 Dose: 20 mg - Labs Labs: 02/04/18 06:19 02/04/18 06:19 PT 15.9 SECONDS (9.7-12.2) H 02/04/18 06:22 INR 1.5 02/04/18 06:22 APTT 32 SECONDS (21-34) 02/04/18 06:22 Attending/Attestation - Attestation I have personally seen and examined this patient.: Yes I have fully participated in the care of the patient.: Yes I have reviewed all pertinent clinical information, including history, physical exam and plan: Yes Notes (Text): Pt was seen and examined at bedside Agree with above note and assessment Pt is improving clinically Can start liquid diet c.w current mx Plan d.w pt in detail Risk and benefit explained in detail.
--- NOTE | 2018-01-31 11:09 | CP.PCM.PN ---
Subjective - Date & Time of Evaluation Date of Evaluation: 01/31/18 Time of Evaluation: 11:06 - Subjective Subjective: CC: GI bleed In ICU. Hgb drifting down without overt signs of GI bleeding. + Abdominal pain, though resting comfortably No reported BMs Objective - Vital Signs/Intake and Output Vital Signs (last 24 hours): Temp Pulse Resp BP Pulse Ox 97.8 F 73 13 123/66 100 01/31/18 08:00 01/31/18 08:00 01/31/18 08:00 01/31/18 07:45 01/31/18 08:00 Intake and Output: 01/31/18 01/31/18 06:59 18:59 Intake Total 1220 220 Output Total 450 Balance 770 220 - Medications Medications: Current Medications Hydrocortisone Sodium Succinate (Solu-Cortef) 50 mg IV Q12 [facility] Last Admin: 01/31/18 09:27 Dose: 50 mg Hydromorphone HCl (Dilaudid) 0.5 mg IVP Q4H PRN PRN Reason: Pain, severe (8-10) Last Admin: 01/30/18 17:04 Dose: 0.5 mg Aztreonam 2 gm/ Sodium (Chloride) 100 mls @ 200 mls/hr IVPB Q8H [facility] PRN Reason: Protocol Last Admin: 01/31/18 04:13 Dose: 200 mls/hr Vancomycin HCl 1 gm/ Sodium (Chloride) 200 mls @ 133.333 mls/hr IVPB Q24H [facility] PRN Reason: Protocol Last Admin: 01/31/18 04:55 Dose: 133.333 mls/hr Metronidazole (Flagyl) 500 mg in 100 mls @ 100 mls/hr IVPB Q8 [facility] PRN Reason: Protocol Last Admin: 01/31/18 06:40 Dose: 100 mls/hr Fat Emulsion Intravenous (Intralipid 20%) 500 mls @ 42 mls/hr IV QOD [facility] Last Admin: 01/29/18 17:28 Dose: 42 mls/hr Insulin Aspart (Novolog) 0 unit SC Q6H [facility] PRN Reason: Protocol Last Admin: 01/31/18 06:46 Dose: 6 unit Multivitamins (Hexavitamin) 1 tab PO DAILY [facility] Last Admin: 01/30/18 10:09 Dose: 1 tab Pantoprazole Sodium (Protonix Inj) 40 mg IVP Q12 [facility] Last Admin: 01/31/18 09:27 Dose: 40 mg Rosuvastatin Calcium (Crestor) 20 mg PO HS [facility] Last Admin: 01/30/18 21:50 Dose: Not Given - Labs Labs: 01/31/18 06:28 01/31/18 06:28 PT 15.5 SECONDS (9.7-12.2) H 01/27/18 03:11 INR 1.4 01/27/18 03:11 APTT 29 SECONDS (21-34) D 01/28/18 07:09 - Constitutional Appears: Chronically Ill - Head Exam Head Exam: NORMOCEPHALIC - Respiratory Exam Respiratory Exam: NORMAL BREATHING PATTERN - Cardiovascular Exam Cardiovascular Exam: REGULAR RHYTHM - GI/Abdominal Exam GI & Abdominal Exam: Soft, Tenderness Assessment and Plan (1) Abdominal pain Assessment & Plan: Stable S/P duodenal perforation last month. Now with collection, deemed not amenable to drainage via IR. Surgery following. This may be source of abdominal pain Status: Acute (2) Pulmonary embolism Assessment & Plan: Managed by pulmonary Status: Acute (3) Upper GI bleed Assessment & Plan: Reported coffee grounds a few days ago. Appears to be presently stable. Keep on Protonix. Too ill to safely do EGD at present. Status: Acute (4) Acute non-ST elevation myocardial infarction (NSTEMI) Status: Acute (5) Perforated abdominal viscus Assessment & Plan: Seroma noted on CT S/P Colin Patch in December 2017. Status: Acute
[2018-01-31] MEDS: Multiple Vitamins Tab PO SCH (11:35)
--- NOTE | 2018-01-31 11:40 | CP.CCUPN ---
"<Francisco Baker - Last Filed: 01/31/18 11:35> CCU Subjective - Physician Review Subjective (Free Text): Patient has been seen and examined at bedside. ROS difficult due to patient's mental status. Clinically the same. CCU Objective - Vital Signs / Intake & Output Vital Signs (Last 4 hours): Vital Signs Temp Pulse Resp BP Pulse Ox 01/31/18 08:00 97.8 F 73 13 100 01/31/18 07:45 76 13 123/66 99 Intake and Output (Last 8hrs): Intake & Output 01/30/18 01/31/18 01/31/18 22:59 06:59 14:59 Intake Total 626 780 220 Output Total 100 350 Balance 526 430 220 Weight 126 lb Intake: Intake, IV Amount 626 780 220 Right Distal Port PICC 426 480 120 Right Proximal Port PICC 200 300 100 Output: Urine 100 350 Urethral (Paulson) 100 350 - Physical Exam Head: Positive for: Atraumatic, Normocephalic Pupils: Positive for: PERRL Mouth: Positive for: Moist Mucous Membranes Neck: Positive for: Normal Range of Motion Cardiovascular: Positive for: Regular Rate and Rhythm, Normal S1, S2 Abdomen: Positive for: Tenderness (Diffuse), Normal Bowel Sounds, Other ( midline surgical Scar). Negative for: Peritoneal Signs Upper Extremity: Positive for: Edema Lower Extremity: Positive for: Edema - Medications Active Medications: Active Medications Generic Name Dose Route Start Last Admin Trade Name Freq PRN Reason Stop Dose Admin Hydrocortisone Sodium Succinate 50 mg 01/29/18 10:00 01/31/18 09:27 Solu-Cortef IV 50 mg Q12 KAROLINE Administration Hydromorphone HCl 0.5 mg 01/30/18 09:10 01/30/18 17:04 Dilaudid IVP 0.5 mg Q4H PRN Administration Pain, severe (8-10) Aztreonam 2 gm/ Sodium 100 mls @ 200 mls/hr 01/27/18 04:45 01/31/18 04:13 Chloride IVPB 200 mls/hr Q8H KAROLINE Administration Protocol Vancomycin HCl 1 gm/ Sodium 200 mls @ 133.333 mls/hr 01/27/18 05:00 01/31/18 04:55 Chloride IVPB 133.333 mls/hr Q24H KAROLINE Administration Protocol Metronidazole 500 mg in 100 mls @ 100 mls/hr 01/27/18 14:00 01/31/18 06:40 Flagyl IVPB 100 mls/hr Q8 KAROLINE Administration Protocol Fat Emulsion Intravenous 500 mls @ 42 mls/hr 01/29/18 18:00 01/29/18 17:28 Intralipid 20% IV 42 mls/hr QOD KAROLINE Administration Insulin Aspart 0 unit 01/28/18 00:00 01/31/18 06:46 Novolog SC 6 unit Q6H KAROLINE Administration Protocol Multivitamins 1 tab 01/27/18 10:00 01/30/18 10:09 Hexavitamin PO 1 tab DAILY KAROLINE Administration Pantoprazole Sodium 40 mg 01/29/18 10:00 01/31/18 09:27 Protonix Inj IVP 40 mg Q12 KAROLINE Administration Rosuvastatin Calcium 20 mg 01/26/18 22:00 01/30/18 21:50 Crestor PO Not Given HS KAROLINE - Patient Studies Lab Studies: Microbiology Studies 01/27/18 08:57 Blood Culture - Preliminary Blood-Venous NO GROWTH AFTER 4 DAYS 01/27/18 08:57 Blood Culture - Preliminary Blood-Venous NO GROWTH AFTER 4 DAYS Lab Studies 01/31/18 01/31/18 01/31/18 Range/Units 10:19 06:43 06:28 WBC (4.8-10.8) K/uL RBC (4.40-5.90) Mil/uL Hgb (12.0-18.0) g/dL Hct (35.0-51.0) % MCV (80.0-94.0) fL MCH (27.0-31.0) pg MCHC (33.0-37.0) g/dL RDW (11.5-14.5) % Plt Count (130-400) K/uL MPV (7.2-11.7) fL Neut % (Auto) (50.0-75.0) % Lymph % (Auto) (20.0-40.0) % [place] % (Auto) (0.0-10.0) % Eos % (Auto) (0.0-4.0) % Baso % (Auto) (0.0-2.0) % Neut # (Auto) (1.8-7.0) K/uL Lymph # (Auto) (1.0-4.3) K/uL [place] # (Auto) (0.0-0.8) K/uL Eos # (Auto) (0.0-0.7) K/uL Baso # (Auto) (0.0-0.2) K/uL Sodium 147 (132-148) mmol/L Potassium 3.8 (3.6-5.2) mmol/L Chloride 118 H (98-107) mmol/L Carbon Dioxide 24 (22-30) mmol/L Anion Gap 9 L (10-20) BUN 38 H (9-20) mg/dL Creatinine 1.0 (0.8-1.5) mg/dL Est GFR ( Amer) > 60 Est GFR (Non-Af Amer) > 60 POC Glucose (mg/dL) 261 H (65-110) mg/dL Random Glucose 196 H (75-110) mg/dL Calcium 9.0 (8.6-10.4) mg/dl Phosphorus 3.3 (2.5-4.5) mg/dL Magnesium 1.7 (1.6-2.3) mg/dL Total Bilirubin 0.3 (0.2-1.3) mg/dL AST 23 (17-59) U/L ALT 36 (21-72) U/L Alkaline Phosphatase 74 (38-126) U/L Total Protein 4.8 L (6.3-8.3) g/dL Albumin 2.1 L (3.5-5.0) g/dL Globulin 2.6 (2.2-3.9) gm/dL Albumin/Globulin Ratio 0.8 L (1.0-2.1) Blood Type O POSITIVE Antibody Screen Negative 01/31/18 01/31/18 01/30/18 Range/Units 06:28 00:03 17:22 WBC 7.0 (4.8-10.8) K/uL RBC 2.57 L (4.40-5.90) Mil/uL Hgb 7.7 L (12.0-18.0) g/dL Hct 23.3 L (35.0-51.0) % MCV 90.6 (80.0-94.0) fL MCH 30.1 (27.0-31.0) pg MCHC 33.2 (33.0-37.0) g/dL RDW 14.7 H (11.5-14.5) % Plt Count 137 (130-400) K/uL MPV 8.9 (7.2-11.7) fL Neut % (Auto) 78.9 H (50.0-75.0) % Lymph % (Auto) 15.3 L (20.0-40.0) % [place] % (Auto) 5.4 (0.0-10.0) % Eos % (Auto) 0.3 (0.0-4.0) % Baso % (Auto) 0.1 (0.0-2.0) % Neut # (Auto) 5.5 (1.8-7.0) K/uL Lymph # (Auto) 1.1 (1.0-4.3) K/uL [place] # (Auto) 0.4 (0.0-0.8) K/uL Eos # (Auto) 0.0 (0.0-0.7) K/uL Baso # (Auto) 0.0 (0.0-0.2) K/uL Sodium (132-148) mmol/L Potassium (3.6-5.2) mmol/L Chloride (98-107) mmol/L Carbon Dioxide (22-30) mmol/L Anion Gap (10-20) BUN (9-20) mg/dL Creatinine (0.8-1.5) mg/dL Est GFR ( Amer) Est GFR (Non-Af Amer) POC Glucose (mg/dL) 207 H 226 H (65-110) mg/dL Random Glucose (75-110) mg/dL Calcium (8.6-10.4) mg/dl Phosphorus (2.5-4.5) mg/dL Magnesium (1.6-2.3) mg/dL Total Bilirubin (0.2-1.3) mg/dL AST (17-59) U/L ALT (21-72) U/L Alkaline Phosphatase (38-126) U/L Total Protein (6.3-8.3) g/dL Albumin (3.5-5.0) g/dL Globulin (2.2-3.9) gm/dL Albumin/Globulin Ratio (1.0-2.1) Blood Type Antibody Screen 01/30/18 Range/Units 12:04 WBC (4.8-10.8) K/uL RBC (4.40-5.90) Mil/uL Hgb (12.0-18.0) g/dL Hct (35.0-51.0) % MCV (80.0-94.0) fL MCH (27.0-31.0) pg MCHC (33.0-37.0) g/dL RDW (11.5-14.5) % Plt Count (130-400) K/uL MPV (7.2-11.7) fL Neut % (Auto) (50.0-75.0) % Lymph % (Auto) (20.0-40.0) % [place] % (Auto) (0.0-10.0) % Eos % (Auto) (0.0-4.0) % Baso % (Auto) (0.0-2.0) % Neut # (Auto) (1.8-7.0) K/uL Lymph # (Auto) (1.0-4.3) K/uL [place] # (Auto) (0.0-0.8) K/uL Eos # (Auto) (0.0-0.7) K/uL Baso # (Auto) (0.0-0.2) K/uL Sodium (132-148) mmol/L Potassium (3.6-5.2) mmol/L Chloride (98-107) mmol/L Carbon Dioxide (22-30) mmol/L Anion Gap (10-20) BUN (9-20) mg/dL Creatinine (0.8-1.5) mg/dL Est GFR ( Amer) Est GFR (Non-Af Amer) POC Glucose (mg/dL) 262 H (65-110) mg/dL Random Glucose (75-110) mg/dL Calcium (8.6-10.4) mg/dl Phosphorus (2.5-4.5) mg/dL Magnesium (1.6-2.3) mg/dL Total Bilirubin (0.2-1.3) mg/dL AST (17-59) U/L ALT (21-72) U/L Alkaline Phosphatase (38-126) U/L Total Protein (6.3-8.3) g/dL Albumin (3.5-5.0) g/dL Globulin (2.2-3.9) gm/dL Albumin/Globulin Ratio (1.0-2.1) Blood Type Antibody Screen Laboratory Results - last 24 hr 01/30/18 01/30/18 01/31/18 12:04 17:22 00:03 WBC RBC Hgb Hct MCV MCH MCHC RDW Plt Count MPV Neut % (Auto) Lymph % (Auto) [place] % (Auto) Eos % (Auto) Baso % (Auto) Neut # (Auto) Lymph # (Auto) [place] # (Auto) Eos # (Auto) Baso # (Auto) Sodium Potassium Chloride Carbon Dioxide Anion Gap BUN Creatinine Est GFR ( Amer) Est GFR (Non-Af Amer) POC Glucose (mg/dL) 262 H 226 H 207 H Random Glucose Calcium Phosphorus Magnesium Total Bilirubin AST ALT Alkaline Phosphatase Total Protein Albumin Globulin Albumin/Globulin Ratio Blood Type Antibody Screen 01/31/18 01/31/18 01/31/18 06:28 06:28 06:43 WBC 7.0 RBC 2.57 L Hgb 7.7 L Hct 23.3 L MCV 90.6 MCH 30.1 MCHC 33.2 RDW 14.7 H Plt Count 137 MPV 8.9 Neut % (Auto) 78.9 H Lymph % (Auto) 15.3 L [place] % (Auto) 5.4 Eos % (Auto) 0.3 Baso % (Auto) 0.1 Neut # (Auto) 5.5 Lymph # (Auto) 1.1 [place] # (Auto) 0.4 Eos # (Auto) 0.0 Baso # (Auto) 0.0 Sodium 147 Potassium 3.8 Chloride 118 H Carbon Dioxide 24 Anion Gap 9 L BUN 38 H Creatinine 1.0 Est GFR ( Amer) > 60 Est GFR (Non-Af Amer) > 60 POC Glucose (mg/dL) 261 H Random Glucose 196 H Calcium 9.0 Phosphorus 3.3 Magnesium 1.7 Total Bilirubin 0.3 AST 23 ALT 36 Alkaline Phosphatase 74 Total Protein 4.8 L Albumin 2.1 L Globulin 2.6 Albumin/Globulin Ratio 0.8 L Blood Type Antibody Screen 01/31/18 10:19 WBC RBC Hgb Hct MCV MCH MCHC RDW Plt Count MPV Neut % (Auto) Lymph % (Auto) [place] % (Auto) Eos % (Auto) Baso % (Auto) Neut # (Auto) Lymph # (Auto) [place] # (Auto) Eos # (Auto) Baso # (Auto) Sodium Potassium Chloride Carbon Dioxide Anion Gap BUN Creatinine Est GFR ( Amer) Est GFR (Non-Af Amer) POC Glucose (mg/dL) Random Glucose Calcium Phosphorus Magnesium Total Bilirubin AST ALT Alkaline Phosphatase Total Protein Albumin Globulin Albumin/Globulin Ratio Blood Type O POSITIVE Antibody Screen Negative Fingerstick Blood Sugar Results: 261 Review of Systems - Review of Systems Systems not reviewed;Unavailable: Altered Mental Status (Baseline?) Assessment/Plan - Assessment and Plan (Free Text) Assessment: 77 y/o male with pmx of DM, PVD, h/o duodenal perforation s/p surgical correction presents to [facility] [place] with abdominal pain and dx with incidental finding of pulmonary embolism. Plan: Neuro: GCS: 15 Sedation: None Cardio: A: NSTEMI (Type II), Hypotension, HLD, Multivessel CAD, Wide Complex Tachycardia (Resolved) Pressors: None ECHO on 12/25 showed 65%-70% EF and Grade I Abnormal Relaxation Pattern. Heparin Held 2/2 to GI Bleed Cardiology on Consult, Recs Appreciated Not a candidate for CABG per Cardiology Continue Crestor 20 HS Dig and Verapamil as BP Tolerates Pulm: A: PE No indication for full Anticoagulation due to adequate Oxygenation, only a small subsegmental defect on CT and Anemia Pulmonology on Consult, Recs Appreciated. ID A: Sepsis Blood Culture - NEGATIVE | Urine Culture - NEGATIVE | MRSA - Negative Flagyl 500 Q8H, Vancomycin 1g Daily, Aztreonam 2gm Q8H [facility] GI A: s/p Duodenal ulcer perforation repair, Abdominal Abcess Peripancreatic fluid collection measured 7 cm x 4 cm on 12/24/2017. It currently measures 6 x 1. 5cm Small peripancreatic fluid collection is not amendable to percutaneious drainage per IR. GI on Conuslt, Recs Appreciated IR on Consult, Recs Appreciated Gen Surg on Consult, Recs Appreciated Intralipid 20% IV QOD| Clinimix Heme/Onc A: Anemia, S/P 2 Units of PRBC Monitor H/H HgB dropped today from 8.3 to 7.7 1 Unit of PRBC ordered. Proph Protonix 40 IV Q12 SCD's Patient seen and discussed with ICU Attending Francisco Baker, PGY-1 <Obed Faye S - Last Filed: 01/31/18 17:12> CCU Objective - Vital Signs / Intake & Output Vital Signs (Last 4 hours): Vital Signs Temp Pulse Resp BP Pulse Ox 01/31/18 15:13 82 18 127/80 100 01/31/18 15:00 84 17 96 01/31/18 14:58 86 21 134/79 96 01/31/18 14:55 97.4 F L 86 17 134/79 01/31/18 14:50 97.3 F L 86 16 141/79 01/31/18 14:43 84 18 141/79 100 01/31/18 14:28 87 19 131/77 94 L 01/31/18 14:13 88 13 132/86 94 L 01/31/18 14:00 88 14 95 01/31/18 13:58 88 20 126/77 93 L 01/31/18 13:50 97.3 F L 87 16 136/84 01/31/18 13:43 93 H 18 136/84 93 L 01/31/18 13:28 92 H 13 136/81 97 01/31/18 13:13 89 12 134/79 98 Intake and Output (Last 8hrs): Intake & Output 01/31/18 01/31/18 01/31/18 06:59 14:59 22:59 Intake Total 780 500 385 Output Total 350 300 Balance 430 200 385 Weight 126 lb Intake: Intake, IV Amount 780 500 60 Right Distal Port PICC 480 300 60 Right Proximal Port PICC 300 200 Blood Product 0 325 Red Blood Cells Cpd As1 0 325 Lr Unit [id number] Output: Urine 350 300 Urethral (Paulson) 350 300 - Medications Active Medications: Active Medications Generic Name Dose Route Start Last Admin Trade Name Freq PRN Reason Stop Dose Admin Hydrocortisone Sodium Succinate 50 mg 01/29/18 10:00 01/31/18 09:27 Solu-Cortef IV 50 mg Q12 KAROLINE Administration Hydromorphone HCl 0.5 mg 01/30/18 09:10 01/31/18 12:10 Dilaudid IVP 0.5 mg Q4H PRN Administration Pain, severe (8-10) Aztreonam 2 gm/ Sodium 100 mls @ 200 mls/hr 01/27/18 04:45 01/31/18 12:41 Chloride IVPB 200 mls/hr Q8H KAROLINE Administration Protocol Vancomycin HCl 1 gm/ Sodium 200 mls @ 133.333 mls/hr 01/27/18 05:00 01/31/18 04:55 Chloride IVPB 133.333 mls/hr Q24H KAROLINE Administration Protocol Metronidazole 500 mg in 100 mls @ 100 mls/hr 01/27/18 14:00 01/31/18 14:30 Flagyl IVPB 100 mls/hr Q8 KAROLINE Administration Protocol Multivitamins/Vitamin C 10 ml/ 1,011.2 mls @ 42 mls/hr 01/31/18 18:00 Chromium/Copper/Manganese/ IV 02/01/18 17:59 Seleni/Zn 1 ml/ Insulin Human .Q24H [facility] Regular 20 unit/ Amino Acids Fat Emulsion Intravenous 500 mls @ 21 mls/hr 02/01/18 10:00 Intralipid 20% IV 02/07/18 10:01 QOD [facility] Insulin Aspart 0 unit 01/28/18 00:00 01/31/18 12:40 Novolog SC 2 unit Q6H [facility] Administration Protocol Multivitamins 1 tab 01/27/18 10:00 01/31/18 11:35 Hexavitamin PO Not Given DAILY [facility] Pantoprazole Sodium 40 mg 01/29/18 10:00 01/31/18 09:27 Protonix Inj IVP 40 mg Q12 [facility] Administration Rosuvastatin Calcium 20 mg 01/26/18 22:00 01/30/18 21:50 Crestor PO Not Given HS KAROLINE - Patient Studies Lab Studies: Microbiology Studies 01/27/18 08:57 Blood Culture - Preliminary Blood-Venous NO GROWTH AFTER 4 DAYS 01/27/18 08:57 Blood Culture - Preliminary Blood-Venous NO GROWTH AFTER 4 DAYS Lab Studies 01/31/18 01/31/18 01/31/18 Range/Units 11:32 10:19 06:43 WBC (4.8-10.8) K/uL RBC (4.40-5.90) Mil/uL Hgb (12.0-18.0) g/dL Hct (35.0-51.0) % MCV (80.0-94.0) fL MCH (27.0-31.0) pg MCHC (33.0-37.0) g/dL RDW (11.5-14.5) % Plt Count (130-400) K/uL MPV (7.2-11.7) fL Neut % (Auto) (50.0-75.0) % Lymph % (Auto) (20.0-40.0) % [place] % (Auto) (0.0-10.0) % Eos % (Auto) (0.0-4.0) % Baso % (Auto) (0.0-2.0) % Neut # (Auto) (1.8-7.0) K/uL Lymph # (Auto) (1.0-4.3) K/uL [place] # (Auto) (0.0-0.8) K/uL Eos # (Auto) (0.0-0.7) K/uL Baso # (Auto) (0.0-0.2) K/uL Sodium (132-148) mmol/L Potassium (3.6-5.2) mmol/L Chloride (98-107) mmol/L Carbon Dioxide (22-30) mmol/L Anion Gap (10-20) BUN (9-20) mg/dL Creatinine (0.8-1.5) mg/dL Est GFR ( Amer) Est GFR (Non-Af Amer) POC Glucose (mg/dL) 181 H 261 H (65-110) mg/dL Random Glucose (75-110) mg/dL Calcium (8.6-10.4) mg/dl Phosphorus (2.5-4.5) mg/dL Magnesium (1.6-2.3) mg/dL Total Bilirubin (0.2-1.3) mg/dL AST (17-59) U/L ALT (21-72) U/L Alkaline Phosphatase (38-126) U/L Total Protein (6.3-8.3) g/dL Albumin (3.5-5.0) g/dL Globulin (2.2-3.9) gm/dL Albumin/Globulin Ratio (1.0-2.1) Blood Type O POSITIVE Antibody Screen Negative 01/31/18 01/31/18 01/31/18 Range/Units 06:28 06:28 00:03 WBC 7.0 (4.8-10.8) K/uL RBC 2.57 L (4.40-5.90) Mil/uL Hgb 7.7 L (12.0-18.0) g/dL Hct 23.3 L (35.0-51.0) % MCV 90.6 (80.0-94.0) fL MCH 30.1 (27.0-31.0) pg MCHC 33.2 (33.0-37.0) g/dL RDW 14.7 H (11.5-14.5) % Plt Count 137 (130-400) K/uL MPV 8.9 (7.2-11.7) fL Neut % (Auto) 78.9 H (50.0-75.0) % Lymph % (Auto) 15.3 L (20.0-40.0) % [place] % (Auto) 5.4 (0.0-10.0) % Eos % (Auto) 0.3 (0.0-4.0) % Baso % (Auto) 0.1 (0.0-2.0) % Neut # (Auto) 5.5 (1.8-7.0) K/uL Lymph # (Auto) 1.1 (1.0-4.3) K/uL [place] # (Auto) 0.4 (0.0-0.8) K/uL Eos # (Auto) 0.0 (0.0-0.7) K/uL Baso # (Auto) 0.0 (0.0-0.2) K/uL Sodium 147 (132-148) mmol/L Potassium 3.8 (3.6-5.2) mmol/L Chloride 118 H (98-107) mmol/L Carbon Dioxide 24 (22-30) mmol/L Anion Gap 9 L (10-20) BUN 38 H (9-20) mg/dL Creatinine 1.0 (0.8-1.5) mg/dL Est GFR ( Amer) > 60 Est GFR (Non-Af Amer) > 60 POC Glucose (mg/dL) 207 H (65-110) mg/dL Random Glucose 196 H (75-110) mg/dL Calcium 9.0 (8.6-10.4) mg/dl Phosphorus 3.3 (2.5-4.5) mg/dL Magnesium 1.7 (1.6-2.3) mg/dL Total Bilirubin 0.3 (0.2-1.3) mg/dL AST 23 (17-59) U/L ALT 36 (21-72) U/L Alkaline Phosphatase 74 (38-126) U/L Total Protein 4.8 L (6.3-8.3) g/dL Albumin 2.1 L (3.5-5.0) g/dL Globulin 2.6 (2.2-3.9) gm/dL Albumin/Globulin Ratio 0.8 L (1.0-2.1) Blood Type Antibody Screen 01/30/18 Range/Units 17:22 WBC (4.8-10.8) K/uL RBC (4.40-5.90) Mil/uL Hgb (12.0-18.0) g/dL Hct (35.0-51.0) % MCV (80.0-94.0) fL MCH (27.0-31.0) pg MCHC (33.0-37.0) g/dL RDW (11.5-14.5) % Plt Count (130-400) K/uL MPV (7.2-11.7) fL Neut % (Auto) (50.0-75.0) % Lymph % (Auto) (20.0-40.0) % [place] % (Auto) (0.0-10.0) % Eos % (Auto) (0.0-4.0) % Baso % (Auto) (0.0-2.0) % Neut # (Auto) (1.8-7.0) K/uL Lymph # (Auto) (1.0-4.3) K/uL [place] # (Auto) (0.0-0.8) K/uL Eos # (Auto) (0.0-0.7) K/uL Baso # (Auto) (0.0-0.2) K/uL Sodium (132-148) mmol/L Potassium (3.6-5.2) mmol/L Chloride (98-107) mmol/L Carbon Dioxide (22-30) mmol/L Anion Gap (10-20) BUN (9-20) mg/dL Creatinine (0.8-1.5) mg/dL Est GFR ( Amer) Est GFR (Non-Af Amer) POC Glucose (mg/dL) 226 H (65-110) mg/dL Random Glucose (75-110) mg/dL Calcium (8.6-10.4) mg/dl Phosphorus (2.5-4.5) mg/dL Magnesium (1.6-2.3) mg/dL Total Bilirubin (0.2-1.3) mg/dL AST (17-59) U/L ALT (21-72) U/L Alkaline Phosphatase (38-126) U/L Total Protein (6.3-8.3) g/dL Albumin (3.5-5.0) g/dL Globulin (2.2-3.9) gm/dL Albumin/Globulin Ratio (1.0-2.1) Blood Type Antibody Screen Laboratory Results - last 24 hr 01/30/18 01/31/18 01/31/18 17:22 00:03 06:28 WBC 7.0 RBC 2.57 L Hgb 7.7 L Hct 23.3 L MCV 90.6 MCH 30.1 MCHC 33.2 RDW 14.7 H Plt Count 137 MPV 8.9 Neut % (Auto) 78.9 H Lymph % (Auto) 15.3 L [place] % (Auto) 5.4 Eos % (Auto) 0.3 Baso % (Auto) 0.1 Neut # (Auto) 5.5 Lymph # (Auto) 1.1 [place] # (Auto) 0.4 Eos # (Auto) 0.0 Baso # (Auto) 0.0 Sodium Potassium Chloride Carbon Dioxide Anion Gap BUN Creatinine Est GFR ( Amer) Est GFR (Non-Af Amer) POC Glucose (mg/dL) 226 H 207 H Random Glucose Calcium Phosphorus Magnesium Total Bilirubin AST ALT Alkaline Phosphatase Total Protein Albumin Globulin Albumin/Globulin Ratio Blood Type Antibody Screen 01/31/18 01/31/18 01/31/18 06:28 06:43 10:19 WBC RBC Hgb Hct MCV MCH MCHC RDW Plt Count MPV Neut % (Auto) Lymph % (Auto) [place] % (Auto) Eos % (Auto) Baso % (Auto) Neut # (Auto) Lymph # (Auto) [place] # (Auto) Eos # (Auto) Baso # (Auto) Sodium 147 Potassium 3.8 Chloride 118 H Carbon Dioxide 24 Anion Gap 9 L BUN 38 H Creatinine 1.0 Est GFR ( Amer) > 60 Est GFR (Non-Af Amer) > 60 POC Glucose (mg/dL) 261 H Random Glucose 196 H Calcium 9.0 Phosphorus 3.3 Magnesium 1.7 Total Bilirubin 0.3 AST 23 ALT 36 Alkaline Phosphatase 74 Total Protein 4.8 L Albumin 2.1 L Globulin 2.6 Albumin/Globulin Ratio 0.8 L Blood Type O POSITIVE Antibody Screen Negative 01/31/18 11:32 WBC RBC Hgb Hct MCV MCH MCHC RDW Plt Count MPV Neut % (Auto) Lymph % (Auto) [place] % (Auto) Eos % (Auto) Baso % (Auto) Neut # (Auto) Lymph # (Auto) [place] # (Auto) Eos # (Auto) Baso # (Auto) Sodium Potassium Chloride Carbon Dioxide Anion Gap BUN Creatinine Est GFR ( Amer) Est GFR (Non-Af Amer) POC Glucose (mg/dL) 181 H Random Glucose Calcium Phosphorus Magnesium Total Bilirubin AST ALT Alkaline Phosphatase Total Protein Albumin Globulin Albumin/Globulin Ratio Blood Type Antibody Screen Assessment/Plan (1) Hypotension (arterial) Current Visit: Yes Status: Acute (2) Abdominal pain Current Visit: Yes Status: Acute (3) Pulmonary embolism Current Visit: Yes Status: Acute (4) Acute non-ST elevation myocardial infarction (NSTEMI) Current Visit: No Status: Acute Attending/Attestation - Attestation I have personally seen and examined this patient.: Yes I have fully participated in the care of the patient.: Yes I have reviewed all pertinent clinical information: Yes Notes (Text): 01/31/18 17:10 PATIENT SEEN AND EXAMINED Out of bed to chair, no respiratory distress Still very frail Continue PPN Continue IV antibiotics"
[2018-01-31] MEDS: HYDROmorphone 0.5 mg/0.5 ml ISec IVP PRN ×2 (12:10→21:31)
[2018-01-31] MEDS: Fat Emulsion 20% IV 500 ML IV SCH (14:31)
[2018-01-31] MEDS ORDERED: PPN IV SCH (18:00)
[2018-01-31] MEDS ORDERED: PPN#1 IV SCH (18:00)
--- NOTE | 2018-01-31 23:53 | CP.PCM.PN ---
Subjective - Date & Time of Evaluation Date of Evaluation: 01/31/18 Time of Evaluation: 19:35 - Subjective Subjective: Pt is seen and evaluated at bedside, pt is weak, septic and prognosis is poor, i discussed the case with her sister and advised her to consider DNR/DNI Objective - Vital Signs/Intake and Output Vital Signs (last 24 hours): Temp Pulse Resp BP Pulse Ox 98.7 F 79 12 115/67 100 01/31/18 16:00 01/31/18 19:00 01/31/18 19:00 01/31/18 18:58 01/31/18 19:00 Intake and Output: 01/31/18 02/01/18 18:59 06:59 Intake Total 1047 42 Output Total 300 Balance 747 42 - Medications Medications: Current Medications Hydrocortisone Sodium Succinate (Solu-Cortef) 50 mg IV Q12 [facility] Last Admin: 01/31/18 21:37 Dose: 50 mg Hydromorphone HCl (Dilaudid) 0.5 mg IVP Q4H PRN PRN Reason: Pain, severe (8-10) Last Admin: 01/31/18 21:31 Dose: 0.5 mg Aztreonam 2 gm/ Sodium (Chloride) 100 mls @ 200 mls/hr IVPB Q8H [facility] PRN Reason: Protocol Last Admin: 01/31/18 20:07 Dose: 200 mls/hr Vancomycin HCl 1 gm/ Sodium (Chloride) 200 mls @ 133.333 mls/hr IVPB Q24H [facility] PRN Reason: Protocol Last Admin: 01/31/18 04:55 Dose: 133.333 mls/hr Metronidazole (Flagyl) 500 mg in 100 mls @ 100 mls/hr IVPB Q8 [facility] PRN Reason: Protocol Last Admin: 01/31/18 21:36 Dose: 100 mls/hr Multivitamins/Vitamin C 10 ml/Chromium/Copper/Manganese/Seleni/Zn 1 ml/ Insulin Human Regular 20 unit/ Amino Acids 1,011.2 mls @ 42 mls/hr IV .Q24H [facility] Stop: 02/01/18 17:59 Last Admin: 01/31/18 17:29 Dose: 42 mls/hr Fat Emulsion Intravenous (Intralipid 20%) 500 mls @ 21 mls/hr IV QOD [facility] Stop: 02/07/18 10:01 Insulin Aspart (Novolog) 0 unit SC Q6H [facility] PRN Reason: Protocol Last Admin: 01/31/18 17:48 Dose: 6 unit Multivitamins (Hexavitamin) 1 tab PO DAILY [facility] Last Admin: 01/31/18 11:35 Dose: Not Given Pantoprazole Sodium (Protonix Inj) 40 mg IVP Q12 [facility] Last Admin: 01/31/18 21:37 Dose: 40 mg Rosuvastatin Calcium (Crestor) 20 mg PO HS [facility] Last Admin: 01/31/18 21:38 Dose: Not Given - Labs Labs: 01/31/18 06:28 01/31/18 06:28 PT 15.5 SECONDS (9.7-12.2) H 01/27/18 03:11 INR 1.4 01/27/18 03:11 APTT 29 SECONDS (21-34) D 01/28/18 07:09 - Constitutional Appears: Confused, Chronically Ill, Other (pt has generalizd Anasarca) - Head Exam Head Exam: ATRAUMATIC, NORMAL INSPECTION, NORMOCEPHALIC - Eye Exam Eye Exam: EOMI, Normal appearance, PERRL Pupil Exam: NORMAL ACCOMODATION, PERRL - Respiratory Exam Respiratory Exam: Decreased Breath Sounds, Rales, Rhonchi - Cardiovascular Exam Cardiovascular Exam: REGULAR RHYTHM, +S1, +S2. absent: Murmur - Neurological Exam Neurological Exam: Awake, CN II-XII Intact - Psychiatric Exam Psychiatric exam: Anxious, Normal Affect, Normal Mood Assessment and Plan (1) Abdominal pain Status: Acute (2) Hypotension (arterial) Status: Acute (3) Pulmonary embolism Status: Acute (4) Upper GI bleed Status: Acute (5) Acute non-ST elevation myocardial infarction (NSTEMI) Status: Acute (6) CHF (congestive heart failure) Status: Acute (7) Diabetes mellitus Status: Acute (8) Diabetic nephropathy Status: Acute (9) Failure to thrive in adult Status: Acute (10) Intraabdominal fluid collection Status: Acute (11) Pulmonary emboli Status: Suspected
[2018-02-01] MEDS: (Novolog) Insulin Aspart, Recombinant 100 u/ml 10 ml vial SC SCH ×5 (00:10→23:57)
[2018-02-01] MEDS: Aztreonam 2 GM in Sodium Chloride 0.9% 100 ML IVPB SCH ×3 (03:50→20:00)
[2018-02-01] MEDS: Vancomycin 1 GM in Sodium Chloride 0.9% 200 ML IVPB SCH (04:49)
[2018-02-01] MEDS: metroNIDAZOLE IV 500 mg/100 ml 500 MG/100 ML BAG IVPB SCH ×3 (06:25→21:00)
[2018-02-01 06:47] LABS: BASO % 0.1 % (0.0-2.0); EOS % 0.1 % (0.0-4.0); LYMPH # 1.1 K/uL (1.0-4.3); LYMPH % 14.3 % (20.0-40.0); MEAN CORPUSCULAR HEMOGLOBIN 30.5 pg (27.0-31.0); MEAN PLATELET VOLUME 9.1 fL (7.2-11.7); MONO # 0.3 K/uL (0.0-0.8); MONO % 4.2 % (0.0-10.0); NEUT # 6.1 K/uL (1.8-7.0); NEUT % 81.3 % (50.0-75.0); NRBC % 0.2 % (0.0-2.0); RBC 2.96 Mil/uL (4.40-5.90); RED CELL DISTRIBUTION WIDTH 16.6 % (11.5-14.5); WHITE BLOOD COUNT 7.5 K/uL (4.8-10.8)
[2018-02-01 06:57] LABS: ALB/GLOB RATIO 0.7 (1.0-2.1); ALBUMIN 1.8 g/dL (3.5-5.0); ALT/SGPT 31 U/L (21-72); AST/SGOT 16 U/L (17-59); BLOOD UREA NITROGEN 38 mg/dL (9-20); CALCIUM 9.2 mg/dl (8.6-10.4); GFR AFRICAN-AMERICAN > 60; GFR NON-AFRICAN AMERICAN > 60
--- NOTE | 2018-02-01 08:33 | CP.PCM.PN ---
Subjective - Date & Time of Evaluation Date of Evaluation: 02/01/18 Time of Evaluation: 08:30 - Subjective Subjective: f/u GI bleed. NG tube removed. feeling better. Denies chills, SZ, LOC, HOLLAND, cough, Rb melena, hematuria, hemoptysis, tremor, malgia Objective - Vital Signs/Intake and Output Vital Signs (last 24 hours): Temp Pulse Resp BP Pulse Ox 97.9 F 80 17 132/74 100 02/01/18 04:00 02/01/18 07:16 02/01/18 07:16 02/01/18 07:16 02/01/18 07:16 Intake and Output: 02/01/18 02/01/18 06:59 18:59 Intake Total 1004 142 Balance 1004 142 - Medications Medications: Current Medications Hydrocortisone Sodium Succinate (Solu-Cortef) 50 mg IV Q12 [facility] Last Admin: 01/31/18 21:37 Dose: 50 mg Hydromorphone HCl (Dilaudid) 0.5 mg IVP Q4H PRN PRN Reason: Pain, severe (8-10) Last Admin: 01/31/18 21:31 Dose: 0.5 mg Aztreonam 2 gm/ Sodium (Chloride) 100 mls @ 200 mls/hr IVPB Q8H [facility] PRN Reason: Protocol Last Admin: 02/01/18 03:50 Dose: 200 mls/hr Metronidazole (Flagyl) 500 mg in 100 mls @ 100 mls/hr IVPB Q8 [facility] PRN Reason: Protocol Last Admin: 02/01/18 06:25 Dose: 100 mls/hr Multivitamins/Vitamin C 10 ml/Chromium/Copper/Manganese/Seleni/Zn 1 ml/ Insulin Human Regular 20 unit/ Amino Acids 1,011.2 mls @ 42 mls/hr IV .Q24H [facility] Stop: 02/01/18 17:59 Last Admin: 01/31/18 17:29 Dose: 42 mls/hr Fat Emulsion Intravenous (Intralipid 20%) 500 mls @ 21 mls/hr IV QOD [facility] Stop: 02/07/18 10:01 Insulin Aspart (Novolog) 0 unit SC Q6H [facility] PRN Reason: Protocol Last Admin: 02/01/18 06:34 Dose: 6 unit Multivitamins (Hexavitamin) 1 tab PO DAILY [facility] Last Admin: 01/31/18 11:35 Dose: Not Given Pantoprazole Sodium (Protonix Inj) 40 mg IVP Q12 [facility] Last Admin: 01/31/18 21:37 Dose: 40 mg Rosuvastatin Calcium (Crestor) 20 mg PO HS [facility] Last Admin: 01/31/18 21:38 Dose: Not Given - Labs Labs: 02/01/18 06:28 02/01/18 06:28 PT 15.5 SECONDS (9.7-12.2) H 01/27/18 03:11 INR 1.4 01/27/18 03:11 APTT 29 SECONDS (21-34) D 01/28/18 07:09 - Constitutional Appears: No Acute Distress - Neck Exam Neck Exam: absent: Tenderness - Respiratory Exam Respiratory Exam: Clear to Ausculation Bilateral - Cardiovascular Exam Cardiovascular Exam: RRR - GI/Abdominal Exam GI & Abdominal Exam: Soft, Normal Bowel Sounds. absent: Tenderness, Mass, Rebound - Neurological Exam Neurological Exam: Alert. absent: Oriented x3 Assessment and Plan (1) Upper GI bleed Assessment & Plan: Hb 9. No melena. Status: Acute (2) Constipation Assessment & Plan: Check BMs. Laxatives Status: Acute (3) Abdominal pain Assessment & Plan: Improving Status: Acute (4) Hypotension (arterial) Status: Acute (5) Pulmonary embolism Status: Acute (6) Acute non-ST elevation myocardial infarction (NSTEMI) Status: Acute (7) Diabetes mellitus Status: Acute (8) GERD (gastroesophageal reflux disease) Status: Acute (9) Perforated abdominal viscus Assessment & Plan: surg 1 mo ago Status: Acute (10) Sepsis associated hypotension Status: Acute (11) Status post exploratory laparotomy Status: Acute (12) Abnormal CT of the abdomen Assessment & Plan: collection- consider abscess or hematoma.. Check Hb Status: Acute
[2018-02-01] MEDS ORDERED: Fat Emulsion 20% IV 500 ML IV SCH (10:00)
--- NOTE | 2018-02-01 10:13 | RAD ---
Chest x-ray single frontal view History: Shortness of breath. Comparison: 01/29/2018 Findings: Interval removal of the nasogastric tube. Other lines and tubes in stable position. Moderate venous congestion. Confluent opacification of the mid to lower lung zones bilaterally with associated moderate bilateral pleural effusions. Cardiomegaly. Enlarged ectatic aorta. Scoliotic curvature of the spine. Degenerative changes in the spine and shoulders. Impression: Interval removal of the nasogastric tube. Other lines and tubes in stable position. Moderate venous congestion. Confluent opacification of the mid to lower lung zones bilaterally with associated moderate bilateral pleural effusions. Cardiomegaly. Enlarged ectatic aorta. Scoliotic curvature of the spine. Degenerative changes in the spine and shoulders.
[2018-02-01] MEDS: Multiple Vitamins Tab PO SCH (10:22)
[2018-02-01 17:23] LABS: BASO % 0.2 % (0.0-2.0); EOS % 0.2 % (0.0-4.0); MONO # 0.3 K/uL (0.0-0.8)
--- NOTE | 2018-02-01 17:59 | CP.CCUPN ---
"<Francisco Baker - Last Filed: 02/01/18 17:56> CCU Subjective - Physician Review Subjective (Free Text): Patient has been seen and examined at bedside. Patients has no complaints today except generalized weakness. Denies fever, chills, headache, abdominal pain, N/V/ changes in bowel habits or urinary symptoms. CCU Objective - Vital Signs / Intake & Output Vital Signs (Last 4 hours): Vital Signs Temp Pulse Resp BP Pulse Ox 02/01/18 17:00 100 H 21 97 02/01/18 16:16 93 H 18 150/83 97 02/01/18 16:00 97.1 F L 91 H 24 95 02/01/18 15:16 90 19 155/80 H 98 02/01/18 15:00 83 16 98 02/01/18 14:16 102 H 18 145/71 95 02/01/18 14:00 88 17 97 Intake and Output (Last 8hrs): Intake & Output 02/01/18 02/01/18 02/01/18 06:59 14:59 22:59 Intake Total 636 720 189 Output Total 240 80 Balance 636 480 109 Weight 126 lb 1.6 oz Intake: Intake, IV Amount 636 342 Right Distal Port PICC 336 42 Right Proximal Port PICC 300 300 TPN/PPN 294 126 Lipid 84 63 Output: Urine 240 80 Urethral (Paulson) 240 80 Emesis 0 0 Other: # Voids Urethral (Paulson) 200 # Bowel Movements 1 0 0 - Physical Exam Head: Positive for: Atraumatic, Normocephalic Pupils: Positive for: PERRL Mouth: Positive for: Moist Mucous Membranes Neck: Positive for: Normal Range of Motion Cardiovascular: Positive for: Regular Rate and Rhythm, Normal S1, S2 Abdomen: Positive for: Normal Bowel Sounds, Other (midline surgical Scar). Negative for: Tenderness, Peritoneal Signs Upper Extremity: Positive for: Edema Lower Extremity: Positive for: Edema - Medications Active Medications: Active Medications Generic Name Dose Route Start Last Admin Trade Name Freq PRN Reason Stop Dose Admin Heparin Sodium (Porcine) 5,000 units 02/01/18 14:00 02/01/18 15:00 Heparin SC 5,000 units Q8 [facility] Administration Hydrocortisone Sodium Succinate 50 mg 01/29/18 10:00 02/01/18 10:22 Solu-Cortef IV 50 mg Q12 [facility] Administration Hydromorphone HCl 0.5 mg 01/30/18 09:10 01/31/18 21:31 Dilaudid IVP 0.5 mg Q4H PRN Administration Pain, severe (8-10) Metronidazole 500 mg in 100 mls @ 100 mls/hr 01/27/18 14:00 02/01/18 14:00 Flagyl IVPB 100 mls/hr Q8 [facility] Administration Protocol Multivitamins/Vitamin C 10 ml/ 1,011.2 mls @ 42 mls/hr 01/31/18 18:00 17:29 Chromium/Copper/Manganese/ IV 02/01/18 17:59 42 mls/hr Seleni/Zn 1 ml/ Insulin Human .Q24H [facility]INE Administration Regular 20 unit/ Amino Acids Fat Emulsion Intravenous 500 mls @ 21 mls/hr 02/01/18 10:00 02/01/18 10:29 Intralipid 20% IV 02/07/18 10:01 21 mls/hr QOD [facility] Administration Aztreonam 2 gm/ Sodium 100 mls @ 100 mls/hr 02/01/18 12:00 02/01/18 12:59 Chloride IVPB 100 mls/hr Q8H [facility] Administration Protocol Multivitamins/Vitamin C 10 ml/ 1,011.2 mls @ 42 mls/hr 02/01/18 18:00 17:24 Chromium/Copper/Manganese/ IV 02/02/18 17:59 42 mls/hr Seleni/Zn 1 ml/ Insulin Human .Q24H [facility]INE Administration Regular 20 unit/ Amino Acids Insulin Aspart 0 unit 01/28/18 00:00 02/01/18 17:28 Novolog SC 4 unit Q6H [facility] Administration Protocol Multivitamins 1 tab 01/27/18 10:00 02/01/18 10:22 Hexavitamin PO 1 tab DAILY [facility] Administration Rosuvastatin Calcium 20 mg 01/26/18 22:00 01/31/18 21:38 Crestor PO Not Given HS [facility] - Patient Studies Lab Studies: Microbiology Studies 01/27/18 08:57 Blood Culture - Final Blood-Venous NO GROWTH AFTER 5 DAYS 01/27/18 08:57 Blood Culture - Final Blood-Venous NO GROWTH AFTER 5 DAYS Lab Studies 05/2402/01/18 02/01/18 Range/Units 17:25 11:40 06:30 WBC (4.8-10.8) K/uL RBC (4.40-5.90) Mil/uL Hgb (12.0-18.0) g/dL Hct (35.0-51.0) % MCV (80.0-94.0) fL MCH (27.0-31.0) pg MCHC (33.0-37.0) g/dL RDW (11.5-14.5) % Plt Count (130-400) K/uL MPV (7.2-11.7) fL Neut % (Auto) (50.0-75.0) % Lymph % (Auto) (20.0-40.0) % [place] % (Auto) (0.0-10.0) % Eos % (Auto) (0.0-4.0) % Baso % (Auto) (0.0-2.0) % Neut # (Auto) (1.8-7.0) K/uL Lymph # (Auto) (1.0-4.3) K/uL [place] # (Auto) (0.0-0.8) K/uL Eos # (Auto) (0.0-0.7) K/uL Baso # (Auto) (0.0-0.2) K/uL Sodium (132-148) mmol/L Potassium (3.6-5.2) mmol/L Chloride (98-107) mmol/L Carbon Dioxide (22-30) mmol/L Anion Gap (10-20) BUN (9-20) mg/dL Creatinine (0.8-1.5) mg/dL Est GFR ( Amer) Est GFR (Non-Af Amer) POC Glucose (mg/dL) 263 H 231 H 277 H (65-110) mg/dL Random Glucose (75-110) mg/dL Calcium (8.6-10.4) mg/dl Phosphorus (2.5-4.5) mg/dL Magnesium (1.6-2.3) mg/dL Total Bilirubin (0.2-1.3) mg/dL AST (17-59) U/L ALT (21-72) U/L Alkaline Phosphatase (38-126) U/L Total Protein (6.3-8.3) g/dL Albumin (3.5-5.0) g/dL Globulin (2.2-3.9) gm/dL Albumin/Globulin Ratio (1.0-2.1) 02/01/18 02/01/18 01/31/18 Range/Units 06:28 06:28 23:43 WBC 7.5 (4.8-10.8) K/uL RBC 2.96 L (4.40-5.90) Mil/uL Hgb 9.0 L (12.0-18.0) g/dL Hct 26.6 L (35.0-51.0) % MCV 90.0 (80.0-94.0) fL MCH 30.5 (27.0-31.0) pg MCHC 34.0 (33.0-37.0) g/dL RDW 16.6 H (11.5-14.5) % Plt Count 113 L D (130-400) K/uL MPV 9.1 (7.2-11.7) fL Neut % (Auto) 81.3 H (50.0-75.0) % Lymph % (Auto) 14.3 L (20.0-40.0) % [place] % (Auto) 4.2 (0.0-10.0) % Eos % (Auto) 0.1 (0.0-4.0) % Baso % (Auto) 0.1 (0.0-2.0) % Neut # (Auto) 6.1 (1.8-7.0) K/uL Lymph # (Auto) 1.1 (1.0-4.3) K/uL [place] # (Auto) 0.3 (0.0-0.8) K/uL Eos # (Auto) 0.0 (0.0-0.7) K/uL Baso # (Auto) 0.0 (0.0-0.2) K/uL Sodium 147 (132-148) mmol/L Potassium 3.9 (3.6-5.2) mmol/L Chloride 116 H (98-107) mmol/L Carbon Dioxide 24 (22-30) mmol/L Anion Gap 11 (10-20) BUN 38 H (9-20) mg/dL Creatinine 0.9 (0.8-1.5) mg/dL Est GFR ( Amer) > 60 Est GFR (Non-Af Amer) > 60 POC Glucose (mg/dL) 197 H (65-110) mg/dL Random Glucose 210 H (75-110) mg/dL Calcium 9.2 (8.6-10.4) mg/dl Phosphorus 3.1 (2.5-4.5) mg/dL Magnesium 1.6 (1.6-2.3) mg/dL Total Bilirubin 0.3 (0.2-1.3) mg/dL AST 16 L D (17-59) U/L ALT 31 (21-72) U/L Alkaline Phosphatase 65 (38-126) U/L Total Protein 4.4 L (6.3-8.3) g/dL Albumin 1.8 L (3.5-5.0) g/dL Globulin 2.6 (2.2-3.9) gm/dL Albumin/Globulin Ratio 0.7 L (1.0-2.1) Laboratory Results - last 24 hr 01/31/18 02/01/18 02/01/18 23:43 06:28 06:28 WBC 7.5 RBC 2.96 L Hgb 9.0 L Hct 26.6 L MCV 90.0 MCH 30.5 MCHC 34.0 RDW 16.6 H Plt Count 113 L D MPV 9.1 Neut % (Auto) 81.3 H Lymph % (Auto) 14.3 L [place] % (Auto) 4.2 Eos % (Auto) 0.1 Baso % (Auto) 0.1 Neut # (Auto) 6.1 Lymph # (Auto) 1.1 [place] # (Auto) 0.3 Eos # (Auto) 0.0 Baso # (Auto) 0.0 Sodium 147 Potassium 3.9 Chloride 116 H Carbon Dioxide 24 Anion Gap 11 BUN 38 H Creatinine 0.9 Est GFR ( Amer) > 60 Est GFR (Non-Af Amer) > 60 POC Glucose (mg/dL) 197 H Random Glucose 210 H Calcium 9.2 Phosphorus 3.1 Magnesium 1.6 Total Bilirubin 0.3 AST 16 L D ALT 31 Alkaline Phosphatase 65 Total Protein 4.4 L Albumin 1.8 L Globulin 2.6 Albumin/Globulin Ratio 0.7 L 0502/01/18 02/01/18 06:30 11:40 17:25 WBC RBC Hgb Hct MCV MCH MCHC RDW Plt Count MPV Neut % (Auto) Lymph % (Auto) [place] % (Auto) Eos % (Auto) Baso % (Auto) Neut # (Auto) Lymph # (Auto) [place] # (Auto) Eos # (Auto) Baso # (Auto) Sodium Potassium Chloride Carbon Dioxide Anion Gap BUN Creatinine Est GFR ( Amer) Est GFR (Non-Af Amer) POC Glucose (mg/dL) 277 H 231 H 263 H Random Glucose Calcium Phosphorus Magnesium Total Bilirubin AST ALT Alkaline Phosphatase Total Protein Albumin Globulin Albumin/Globulin Ratio Fingerstick Blood Sugar Results: 263 Review of Systems - Review of Systems Review of Systems: As per subjective Assessment/Plan - Assessment and Plan (Free Text) Assessment: 77 y/o male with pmx of DM, PVD, h/o duodenal perforation s/p surgical correction presents to [facility] with abdominal pain and dx with incidental finding of pulmonary embolism. Plan: Neuro: GCS: 15 Sedation: None Cardio: A: NSTEMI (Type II), Hypotension, HLD, Multivessel CAD, Wide Complex Tachycardia (Resolved) Pressors: None ECHO on 12/25 showed 65%-70% EF and Grade I Abnormal Relaxation Pattern. Heparin Held 2/2 to GI Bleed Cardiology on Consult, Recs Appreciated Not a candidate for CABG per Cardiology Continue Crestor 20 HS Dig and Verapamil as BP Tolerates Pulm: A: PE No indication for full Anticoagulation due to adequate Oxygenation, only a small subsegmental defect on CT and Anemia Pulmonology on Consult, Recs Appreciated. ID A: Sepsis Blood Culture - NEGATIVE | Urine Culture - NEGATIVE | MRSA - Negative Flagyl 500 Q8H, Vancomycin 1g Daily, Aztreonam 2gm Q8H [employer] GI A: s/p Duodenal ulcer perforation repair, Abdominal Abcess Peripancreatic fluid collection measured 7 cm x 4 cm on 12/24/2017. It currently measures 6 x 1. 5cm Small peripancreatic fluid collection is not amendable to percutaneious drainage per IR. GI on Conuslt, Recs Appreciated IR on Consult, Recs Appreciated Gen Surg on Consult, Recs Appreciated Intralipid 20% IV QOD| Clinimix Heme/Onc A: Anemia, S/P 2 Units of PRBC, Thrombocytopenia Monitor H/H HgB Stable Monitor plts. Proph No indication for GI Proph . SCD's Patient seen and discussed with ICU Attending Francisco Baker, PGY-1 <Erasmo Estrella M - Last Filed: 02/01/18 18:39> CCU Objective - Vital Signs / Intake & Output Vital Signs (Last 4 hours): Vital Signs Temp Pulse Resp BP Pulse Ox 02/01/18 18:00 105 H 19 97 02/01/18 17:16 106 H 21 126/80 97 02/01/18 17:00 100 H 21 97 02/01/18 16:16 93 H 18 150/83 97 02/01/18 16:00 97.1 F L 91 H 24 95 02/01/18 15:16 90 19 155/80 H 98 02/01/18 15:00 83 16 98 Intake and Output (Last 8hrs): Intake & Output 02/01/18 02/01/18 02/01/18 06:59 14:59 22:59 Intake Total 636 720 252 Output Total 240 180 Balance 636 480 72 Weight 126 lb 1.6 oz Intake: Intake, IV Amount 636 342 Right Distal Port PICC 336 42 Right Proximal Port PICC 300 300 TPN/PPN 294 168 Lipid 84 84 Output: Urine 240 180 Urethral (Paulson) 240 180 Emesis 0 0 Other: # Voids Urethral (Paulson) 200 # Bowel Movements 1 0 1 - Medications Active Medications: Active Medications Generic Name Dose Route Start Last Admin Trade Name Freq PRN Reason Stop Dose Admin Hydrocortisone Sodium Succinate 50 mg 01/29/18 10:00 02/01/18 10:22 Solu-Cortef IV 50 mg Q12 [facility] Administration Hydromorphone HCl 0.5 mg 01/30/18 09:10 01/31/18 21:31 Dilaudid IVP 0.5 mg Q4H PRN Administration Pain, severe (8-10) Metronidazole 500 mg in 100 mls @ 100 mls/hr 01/27/18 14:00 02/01/18 14:00 Flagyl IVPB 100 mls/hr Q8 [facility] Administration Protocol Fat Emulsion Intravenous 500 mls @ 21 mls/hr 02/01/18 10:00 02/01/18 10:29 Intralipid 20% IV 02/07/18 10:01 21 mls/hr QOD [facility] Administration Aztreonam 2 gm/ Sodium 100 mls @ 100 mls/hr 02/01/18 12:00 02/01/18 12:59 Chloride IVPB 100 mls/hr Q8H [facility] Administration Protocol Multivitamins/Vitamin C 10 ml/ 1,011.2 mls @ 42 mls/hr 02/01/18 18:00 17:24 Chromium/Copper/Manganese/ IV 02/02/18 17:59 42 mls/hr Seleni/Zn 1 ml/ Insulin Human .Q24H K[facility]OLINE Administration Regular 20 unit/ Amino Acids Insulin Aspart 0 unit 01/28/18 00:00 02/01/18 17:28 Novolog SC 4 unit Q6H [facility] Administration Protocol Multivitamins 1 tab 01/27/18 10:00 02/01/18 10:22 Hexavitamin PO 1 tab DAILY [facility] Administration Pantoprazole Sodium 40 mg 02/01/18 18:45 Protonix Inj IVP Q12H [facility] Rosuvastatin Calcium 20 mg 01/26/18 22:00 01/31/18 21:38 Crestor PO Not Given HS K[facility]OLINE - Patient Studies Lab Studies: Microbiology Studies 01/27/18 08:57 Blood Culture - Final Blood-Venous NO GROWTH AFTER 5 DAYS 01/27/18 08:57 Blood Culture - Final Blood-Venous NO GROWTH AFTER 5 DAYS Lab Studies 02/01/18 02/01/18 02/01/18 Range/Units 17:25 17:20 11:40 WBC 7.1 (4.8-10.8) K/uL RBC 2.79 L (4.40-5.90) Mil/uL Hgb 9.3 L (12.0-18.0) g/dL Hct 25.4 L (35.0-51.0) % MCV 91.2 (80.0-94.0) fL MCH 33.2 H (27.0-31.0) pg MCHC 36.4 (33.0-37.0) g/dL RDW 17.8 H (11.5-14.5) % Plt Count 102 L (130-400) K/uL MPV 10.4 (7.2-11.7) fL Neut % (Auto) 85.3 H (50.0-75.0) % Lymph % (Auto) 10.6 L (20.0-40.0) % [place] % (Auto) 3.7 (0.0-10.0) % Eos % (Auto) 0.2 (0.0-4.0) % Baso % (Auto) 0.2 (0.0-2.0) % Neut # (Auto) 6.0 (1.8-7.0) K/uL Lymph # (Auto) 0.8 L (1.0-4.3) K/uL [place] # (Auto) 0.3 (0.0-0.8) K/uL Eos # (Auto) 0.0 (0.0-0.7) K/uL Baso # (Auto) 0.0 (0.0-0.2) K/uL Sodium (132-148) mmol/L Potassium (3.6-5.2) mmol/L Chloride (98-107) mmol/L Carbon Dioxide (22-30) mmol/L Anion Gap (10-20) BUN (9-20) mg/dL Creatinine (0.8-1.5) mg/dL Est GFR ( Amer) Est GFR (Non-Af Amer) POC Glucose (mg/dL) 263 H 231 H (65-110) mg/dL Random Glucose (75-110) mg/dL Calcium (8.6-10.4) mg/dl Phosphorus (2.5-4.5) mg/dL Magnesium (1.6-2.3) mg/dL Total Bilirubin (0.2-1.3) mg/dL AST (17-59) U/L ALT (21-72) U/L Alkaline Phosphatase (38-126) U/L Total Protein (6.3-8.3) g/dL Albumin (3.5-5.0) g/dL Globulin (2.2-3.9) gm/dL Albumin/Globulin Ratio (1.0-2.1) 02/01/18 02/01/18 02/01/18 Range/Units 06:30 06:28 06:28 WBC 7.5 (4.8-10.8) K/uL RBC 2.96 L (4.40-5.90) Mil/uL Hgb 9.0 L (12.0-18.0) g/dL Hct 26.6 L (35.0-51.0) % MCV 90.0 (80.0-94.0) fL MCH 30.5 (27.0-31.0) pg MCHC 34.0 (33.0-37.0) g/dL RDW 16.6 H (11.5-14.5) % Plt Count 113 L D (130-400) K/uL MPV 9.1 (7.2-11.7) fL Neut % (Auto) 81.3 H (50.0-75.0) % Lymph % (Auto) 14.3 L (20.0-40.0) % [place] % (Auto) 4.2 (0.0-10.0) % Eos % (Auto) 0.1 (0.0-4.0) % Baso % (Auto) 0.1 (0.0-2.0) % Neut # (Auto) 6.1 (1.8-7.0) K/uL Lymph # (Auto) 1.1 (1.0-4.3) K/uL [place] # (Auto) 0.3 (0.0-0.8) K/uL Eos # (Auto) 0.0 (0.0-0.7) K/uL Baso # (Auto) 0.0 (0.0-0.2) K/uL Sodium 147 (132-148) mmol/L Potassium 3.9 (3.6-5.2) mmol/L Chloride 116 H (98-107) mmol/L Carbon Dioxide 24 (22-30) mmol/L Anion Gap 11 (10-20) BUN 38 H (9-20) mg/dL Creatinine 0.9 (0.8-1.5) mg/dL Est GFR ( Amer) > 60 Est GFR (Non-Af Amer) > 60 POC Glucose (mg/dL) 277 H (65-110) mg/dL Random Glucose 210 H (75-110) mg/dL Calcium 9.2 (8.6-10.4) mg/dl Phosphorus 3.1 (2.5-4.5) mg/dL Magnesium 1.6 (1.6-2.3) mg/dL Total Bilirubin 0.3 (0.2-1.3) mg/dL AST 16 L D (17-59) U/L ALT 31 (21-72) U/L Alkaline Phosphatase 65 (38-126) U/L Total Protein 4.4 L (6.3-8.3) g/dL Albumin 1.8 L (3.5-5.0) g/dL Globulin 2.6 (2.2-3.9) gm/dL Albumin/Globulin Ratio 0.7 L (1.0-2.1) 01/31/18 Range/Units 23:43 WBC (4.8-10.8) K/uL RBC (4.40-5.90) Mil/uL Hgb (12.0-18.0) g/dL Hct (35.0-51.0) % MCV (80.0-94.0) fL MCH (27.0-31.0) pg MCHC (33.0-37.0) g/dL RDW (11.5-14.5) % Plt Count (130-400) K/uL MPV (7.2-11.7) fL Neut % (Auto) (50.0-75.0) % Lymph % (Auto) (20.0-40.0) % [place] % (Auto) (0.0-10.0) % Eos % (Auto) (0.0-4.0) % Baso % (Auto) (0.0-2.0) % Neut # (Auto) (1.8-7.0) K/uL Lymph # (Auto) (1.0-4.3) K/uL [place] # (Auto) (0.0-0.8) K/uL Eos # (Auto) (0.0-0.7) K/uL Baso # (Auto) (0.0-0.2) K/uL Sodium (132-148) mmol/L Potassium (3.6-5.2) mmol/L Chloride (98-107) mmol/L Carbon Dioxide (22-30) mmol/L Anion Gap (10-20) BUN (9-20) mg/dL Creatinine (0.8-1.5) mg/dL Est GFR ( Amer) Est GFR (Non-Af Amer) POC Glucose (mg/dL) 197 H (65-110) mg/dL Random Glucose (75-110) mg/dL Calcium (8.6-10.4) mg/dl Phosphorus (2.5-4.5) mg/dL Magnesium (1.6-2.3) mg/dL Total Bilirubin (0.2-1.3) mg/dL AST (17-59) U/L ALT (21-72) U/L Alkaline Phosphatase (38-126) U/L Total Protein (6.3-8.3) g/dL Albumin (3.5-5.0) g/dL Globulin (2.2-3.9) gm/dL Albumin/Globulin Ratio (1.0-2.1) Laboratory Results - last 24 hr 01/31/18 02/01/18 02/01/18 23:43 06:28 06:28 WBC 7.5 RBC 2.96 L Hgb 9.0 L Hct 26.6 L MCV 90.0 MCH 30.5 MCHC 34.0 RDW 16.6 H Plt Count 113 L D MPV 9.1 Neut % (Auto) 81.3 H Lymph % (Auto) 14.3 L [place] % (Auto) 4.2 Eos % (Auto) 0.1 Baso % (Auto) 0.1 Neut # (Auto) 6.1 Lymph # (Auto) 1.1 [place] # (Auto) 0.3 Eos # (Auto) 0.0 Baso # (Auto) 0.0 Sodium 147 Potassium 3.9 Chloride 116 H Carbon Dioxide 24 Anion Gap 11 BUN 38 H Creatinine 0.9 Est GFR ( Amer) > 60 Est GFR (Non-Af Amer) > 60 POC Glucose (mg/dL) 197 H Random Glucose 210 H Calcium 9.2 Phosphorus 3.1 Magnesium 1.6 Total Bilirubin 0.3 AST 16 L D ALT 31 Alkaline Phosphatase 65 Total Protein 4.4 L Albumin 1.8 L Globulin 2.6 Albumin/Globulin Ratio 0.7 L 02/01/18 02/01/18 02/01/18 06:30 11:40 17:20 WBC 7.1 RBC 2.79 L Hgb 9.3 L Hct 25.4 L MCV 91.2 MCH 33.2 H MCHC 36.4 RDW 17.8 H Plt Count 102 L MPV 10.4 Neut % (Auto) 85.3 H Lymph % (Auto) 10.6 L [place] % (Auto) 3.7 Eos % (Auto) 0.2 Baso % (Auto) 0.2 Neut # (Auto) 6.0 Lymph # (Auto) 0.8 L [place] # (Auto) 0.3 Eos # (Auto) 0.0 Baso # (Auto) 0.0 Sodium Potassium Chloride Carbon Dioxide Anion Gap BUN Creatinine Est GFR ( Amer) Est GFR (Non-Af Amer) POC Glucose (mg/dL) 277 H 231 H Random Glucose Calcium Phosphorus Magnesium Total Bilirubin AST ALT Alkaline Phosphatase Total Protein Albumin Globulin Albumin/Globulin Ratio 02/01/18 17:25 WBC RBC Hgb Hct MCV MCH MCHC RDW Plt Count MPV Neut % (Auto) Lymph % (Auto) [place] % (Auto) Eos % (Auto) Baso % (Auto) Neut # (Auto) Lymph # (Auto) [place] # (Auto) Eos # (Auto) Baso # (Auto) Sodium Potassium Chloride Carbon Dioxide Anion Gap BUN Creatinine Est GFR ( Amer) Est GFR (Non-Af Amer) POC Glucose (mg/dL) 263 H Random Glucose Calcium Phosphorus Magnesium Total Bilirubin AST ALT Alkaline Phosphatase Total Protein Albumin Globulin Albumin/Globulin Ratio Attending/Attestation - Attestation I have personally seen and examined this patient.: Yes I have fully participated in the care of the patient.: Yes I have reviewed all pertinent clinical information: Yes Notes (Text): 02/01/18 18:34 The Patient was seen and examined at the bedside, Medical records reviewed, and management issues were discussed and formulated with the house staff. I have reviewed all the relevant clinical, laboratory, hemodynamic, radiographic data and medications Events reviewed Pain issues, skin care, head of the bed elevation, glycemic control were addressed. Agree with above resident's assessment and treatment plans of care as transcribed in Dr. Vasquez note. Patient confused, intermittently follow commands Afebrile Critically ill patient with acute hypoxemic respiratory failure, septic shock ( Patient now off pressors) and Toxic metabolic Now with Acute GI bleeding, will hold SQ heparin, start IV Protonix BID, close monitoring of H/H Continue current management, medications reviewed, IV antibiotics, avoid all sedative. Seen by surgery and IR Swallow evaluation, Continue TPN Discussed with the family in details diagnosis, treatment plans and alternatives. Code status: Full code Total critical care time 38 minutes"
[2018-02-01] MEDS ORDERED: PPN#2 IV SCH (18:00)
[2018-02-01 18:20] LABS: LYMPH # 0.8 K/uL (1.0-4.3); LYMPH % 10.6 % (20.0-40.0); MONO % 3.7 % (0.0-10.0); NEUT % 85.3 % (50.0-75.0); NRBC % 0.1 % (0.0-2.0); WHITE BLOOD COUNT 7.1 K/uL (4.8-10.8)
[2018-02-01 18:21] LABS: HEMOGLOBIN 9.3 g/dL (12.0-18.0); MEAN CELL VOLUME 91.2 fL (80.0-94.0); MEAN CORPUSCULAR HEMOGLOBIN 33.2 pg (27.0-31.0); MEAN CORPUSCULAR HGB CONC 36.4 g/dL (33.0-37.0); RBC 2.79 Mil/uL (4.40-5.90); RED CELL DISTRIBUTION WIDTH 17.8 % (11.5-14.5)
[2018-02-01 18:22] LABS: MEAN PLATELET VOLUME 10.4 fL (7.2-11.7)
[2018-02-01] MEDS: HYDROmorphone 0.5 mg/0.5 ml ISec IVP PRN (20:09)
[2018-02-01] MEDS ORDERED: Albumin Human 25% (12.5 gm/50 ml) IV ONE (22:01)
[2018-02-01 22:22] LABS: MEAN CORPUSCULAR HEMOGLOBIN 33.6 pg (27.0-31.0); RBC 2.68 Mil/uL (4.40-5.90); RED CELL DISTRIBUTION WIDTH 17.2 % (11.5-14.5); WHITE BLOOD COUNT 9.6 K/uL (4.8-10.8)
[2018-02-01 22:23] LABS: MEAN PLATELET VOLUME 9.2 fL (7.2-11.7)
[2018-02-01] MEDS: Pantoprazole 80 MG in Sodium Chloride 0.9% 100 ML IVP SCH (23:20)
[2018-02-02] MEDS: Aztreonam 2 GM in Sodium Chloride 0.9% 100 ML IVPB SCH (03:00)
[2018-02-02] MEDS: metroNIDAZOLE IV 500 mg/100 ml 500 MG/100 ML BAG IVPB SCH (05:00)
[2018-02-02] MEDS: HYDROmorphone 0.5 mg/0.5 ml ISec IVP PRN ×2 (05:41→21:31)
[2018-02-02] MEDS: (Novolog) Insulin Aspart, Recombinant 100 u/ml 10 ml vial SC SCH ×3 (05:42→17:50)
--- NOTE | 2018-02-02 05:50 | CP.PCM.PN ---
Subjective - Date & Time of Evaluation Date of Evaluation: 02/01/18 Time of Evaluation: 17:00 - Subjective Subjective: Patient has been seen and examined at bedside. Patients has no complaints today except generalized weakness. Denies fever, chills, headache, abdominal pain, N/V/ changes in bowel habits or urinary symptoms. Objective - Vital Signs/Intake and Output Vital Signs (last 24 hours): Temp Pulse Resp BP Pulse Ox 97.1 F L 103 H 14 119/62 97 02/01/18 16:00 02/02/18 03:16 02/02/18 03:16 02/02/18 03:16 02/02/18 03:16 Intake and Output: 02/01/18 02/02/18 18:59 06:59 Intake Total 972 1117 Output Total 420 0 Balance 552 1117 - Medications Medications: Current Medications Hydromorphone HCl (Dilaudid) 0.5 mg IVP Q4H PRN PRN Reason: Pain, severe (8-10) Last Admin: 02/02/18 05:41 Dose: 0.5 mg Metronidazole (Flagyl) 500 mg in 100 mls @ 100 mls/hr IVPB Q8 [facility] PRN Reason: Protocol Last Admin: 02/02/18 05:00 Dose: 100 mls/hr Fat Emulsion Intravenous (Intralipid 20%) 500 mls @ 21 mls/hr IV QOD [facility] Stop: 02/07/18 10:01 Last Admin: 02/01/18 10:29 Dose: 21 mls/hr Aztreonam 2 gm/ Sodium (Chloride) 100 mls @ 100 mls/hr IVPB Q8H [facility] PRN Reason: Protocol Last Admin: 02/02/18 03:00 Dose: 100 mls/hr Multivitamins/Vitamin C 10 ml/Chromium/Copper/Manganese/Seleni/Zn 1 ml/ Insulin Human Regular 20 unit/ Amino Acids 1,011.2 mls @ 42 mls/hr IV .Q24H [facility] Stop: 02/02/18 17:59 Last Admin: 02/01/18 17:24 Dose: 42 mls/hr Pantoprazole Sodium 80 mg/ (Sodium Chloride) 100 mls @ 10 mls/hr IVP .Q10H [facility] PRN Reason: 8 MG/HR Last Admin: 02/01/18 23:20 Dose: 10 mls/hr Insulin Aspart (Novolog) 0 unit SC Q6H [facility] PRN Reason: Protocol Last Admin: 02/02/18 05:42 Dose: 10 unit Multivitamins (Hexavitamin) 1 tab PO DAILY [facility] Last Admin: 02/01/18 10:22 Dose: 1 tab Rosuvastatin Calcium (Crestor) 20 mg PO HS [facility] Last Admin: 02/01/18 21:55 Dose: 20 mg - Labs Labs: 02/01/18 22:05 02/01/18 06:28 PT 15.5 SECONDS (9.7-12.2) H 01/27/18 03:11 INR 1.4 01/27/18 03:11 APTT 29 SECONDS (21-34) D 01/28/18 07:09 Assessment and Plan (1) Abdominal pain Status: Acute (2) Hypotension (arterial) Status: Acute (3) Pulmonary embolism Status: Acute (4) Upper GI bleed Status: Acute (5) Acute non-ST elevation myocardial infarction (NSTEMI) Status: Acute (6) CHF (congestive heart failure) Status: Acute (7) Diabetes mellitus Status: Acute (8) Diabetic nephropathy Status: Acute (9) Failure to thrive in adult Status: Acute (10) Intraabdominal fluid collection Status: Acute (11) Pulmonary emboli Status: Suspected
[2018-02-02 06:16] LABS: EOS % 0.1 % (0.0-4.0); HEMOGLOBIN 7.1 g/dL (12.0-18.0); LYMPH # 1.2 K/uL (1.0-4.3); LYMPH % 15.2 % (20.0-40.0); MEAN CELL VOLUME 90.5 fL (80.0-94.0); MEAN CORPUSCULAR HEMOGLOBIN 30.3 pg (27.0-31.0); MEAN CORPUSCULAR HGB CONC 33.5 g/dL (33.0-37.0); MEAN PLATELET VOLUME 10.1 fL (7.2-11.7); MONO # 0.2 K/uL (0.0-0.8); MONO % 2.8 % (0.0-10.0); NEUT # 6.7 K/uL (1.8-7.0); NEUT % 81.9 % (50.0-75.0); NRBC % 0.1 % (0.0-2.0); RBC 2.35 Mil/uL (4.40-5.90); RED CELL DISTRIBUTION WIDTH 16.6 % (11.5-14.5); WHITE BLOOD COUNT 8.2 K/uL (4.8-10.8)
[2018-02-02 06:40] LABS: ALB/GLOB RATIO 0.9 (1.0-2.1); ALBUMIN 2.1 g/dL (3.5-5.0); ALT/SGPT 24 U/L (21-72); AST/SGOT 23 U/L (17-59); BLOOD UREA NITROGEN 46 mg/dL (9-20); CALCIUM 9.1 mg/dl (8.6-10.4); GFR AFRICAN-AMERICAN > 60; GFR NON-AFRICAN AMERICAN > 60
--- NOTE | 2018-02-02 08:39 | CP.PCM.PN ---
Subjective - Date & Time of Evaluation Date of Evaluation: 02/02/18 Time of Evaluation: 08:30 - Subjective Subjective: remains weak. Objective - Vital Signs/Intake and Output Vital Signs (last 24 hours): Temp Pulse Resp BP Pulse Ox 98.2 F 114 H 12 103/55 L 94 L 02/02/18 04:00 02/02/18 06:16 02/02/18 06:16 02/02/18 06:16 02/02/18 06:16 Intake and Output: 02/02/18 02/02/18 06:59 18:59 Intake Total 1436 Output Total 600 Balance 836 - Medications Medications: Current Medications Hydromorphone HCl (Dilaudid) 0.5 mg IVP Q4H PRN PRN Reason: Pain, severe (8-10) Last Admin: 02/02/18 05:41 Dose: 0.5 mg Metronidazole (Flagyl) 500 mg in 100 mls @ 100 mls/hr IVPB Q8 [facility] PRN Reason: Protocol Last Admin: 02/02/18 05:00 Dose: 100 mls/hr Fat Emulsion Intravenous (Intralipid 20%) 500 mls @ 21 mls/hr IV QOD [facility] Stop: 02/07/18 10:01 Last Admin: 02/01/18 10:29 Dose: 21 mls/hr Aztreonam 2 gm/ Sodium (Chloride) 100 mls @ 100 mls/hr IVPB Q8H [facility] PRN Reason: Protocol Last Admin: 02/02/18 03:00 Dose: 100 mls/hr Multivitamins/Vitamin C 10 ml/Chromium/Copper/Manganese/Seleni/Zn 1 ml/ Insulin Human Regular 20 unit/ Amino Acids 1,011.2 mls @ 42 mls/hr IV .Q24H [facility] Stop: 02/02/18 17:59 Last Admin: 02/01/18 17:24 Dose: 42 mls/hr Pantoprazole Sodium 80 mg/ (Sodium Chloride) 100 mls @ 10 mls/hr IVP .Q10H [facility] PRN Reason: 8 MG/HR Last Admin: 02/01/18 23:20 Dose: 10 mls/hr Insulin Aspart (Novolog) 0 unit SC Q6H [facility] PRN Reason: Protocol Last Admin: 02/02/18 05:42 Dose: 10 unit Multivitamins (Hexavitamin) 1 tab PO DAILY [facility] Last Admin: 02/01/18 10:22 Dose: 1 tab Rosuvastatin Calcium (Crestor) 20 mg PO HS [facility] Last Admin: 02/01/18 21:55 Dose: 20 mg - Labs Labs: 02/02/18 05:53 02/02/18 05:55 PT 15.5 SECONDS (9.7-12.2) H 01/27/18 03:11 INR 1.4 01/27/18 03:11 APTT 29 SECONDS (21-34) D 01/28/18 07:09 - Constitutional Appears: Toxic, Chronically Ill - Head Exam Head Exam: NORMAL INSPECTION - Eye Exam Eye Exam: Normal appearance - ENT Exam ENT Exam: Mucous Membranes Dry - Neck Exam Neck Exam: Normal Inspection - Respiratory Exam Respiratory Exam: Decreased Breath Sounds - Cardiovascular Exam Cardiovascular Exam: Irregular Rhythm - Rectal Exam Rectal Exam: Deferred - Extremities Exam Extremities Exam: absent: Pedal Edema - Back Exam Back Exam: NORMAL INSPECTION - Neurological Exam Neurological Exam: Alert - Psychiatric Exam Psychiatric exam: Normal Affect - Skin Skin Exam: Normal Color Assessment and Plan (1) CAD (coronary artery disease) Assessment & Plan: not a candidate for CABG Status: Acute (2) Atrial fibrillation Assessment & Plan: rate control. not a candidate for anticaogulation Status: Acute
[2018-02-02] MEDS ORDERED: Digoxin 500 mcg/2ml (0.5 mg/2ml) Inj IVP ONE (09:30)
[2018-02-02] MEDS: Pantoprazole 80 MG in Sodium Chloride 0.9% 100 ML IVP SCH (09:31)
[2018-02-02] MEDS: (Lantus) Insulin Glargine, Recombinant SC SCH (09:58)
[2018-02-02] MEDS: Multiple Vitamins Tab PO SCH (09:58)
[2018-02-02] MEDS ORDERED: Magnesium Sulfate 1 gm in D5W 1 GM/100 ML BAG IVPB SCH (10:00)
[2018-02-02] MEDS: Magnesium Sulfate 1 gm in D5W 1 GM/100 ML BAG IVPB SCH (10:03)
[2018-02-02 10:54] LABS: INR 1.8; PROTHROMBIN TIME 19.5 SECONDS (9.7-12.2)
--- NOTE | 2018-02-02 13:23 | CP.CCUPN ---
"Addendum entered and electronically signed by Francisco Baker DO 02/02/18 14:33: GI plans for endoscopy tomorrow. Patient needs Cardiac Clearance. Original Note: <Francisco Baker - Last Filed: 02/02/18 13:17> CCU Subjective - Physician Review Subjective (Free Text): Patient has been seen and examined at bedside. Patients still complains of generalized weakness Denies fever, chills, headache, abdominal pain, N/V or urinary symptoms. CCU Objective - Vital Signs / Intake & Output Vital Signs (Last 4 hours): Vital Signs Temp Pulse Resp BP Pulse Ox 02/02/18 12:42 97.6 F 116 H 20 97/58 L 02/02/18 12:00 116 H 25 H 02/02/18 11:54 97.7 F 02/02/18 11:16 126 H 21 97/50 L 100 02/02/18 11:00 115 H 13 83 L 02/02/18 10:16 129 H 21 102/67 99 02/02/18 10:00 129 H 17 Intake and Output (Last 8hrs): Intake & Output 02/01/18 02/02/18 02/02/18 22:59 06:59 14:59 Intake Total 704 984 409 Output Total 180 600 Balance 524 384 409 Weight 124 lb 10 oz Intake: Intake, IV Amount 200 480 220 Right Distal Port PICC 80 220 Right Proximal Port PICC 200 400 TPN/PPN 336 336 126 Blood Product 0 Apheresis Rbc Cp2d As3 Lr 0 1st Unit [id number] Lipid 168 168 63 Output: Urine 180 600 Urethral (Paulson) 180 600 Emesis 0 Other: # Bowel Movements 0 3 - Physical Exam Head: Positive for: Atraumatic, Normocephalic Pupils: Positive for: PERRL Mouth: Positive for: Moist Mucous Membranes Neck: Positive for: Normal Range of Motion Cardiovascular: Positive for: Regular Rate and Rhythm, Normal S1, S2 Abdomen: Positive for: Normal Bowel Sounds, Other (midline surgical Scar). Negative for: Tenderness, Peritoneal Signs Upper Extremity: Positive for: Edema Lower Extremity: Positive for: Edema - Medications Active Medications: Active Medications Generic Name Dose Route Start Last Admin Trade Name Freq PRN Reason Stop Dose Admin Hydromorphone HCl 0.5 mg 01/30/18 09:10 02/02/18 05:41 Dilaudid IVP 0.5 mg Q4H PRN Administration Pain, severe (8-10) Insulin Aspart 0 unit 02/02/18 12:00 Novolog SC Q6H KAROLINE Protocol Insulin Glargine 10 unit 02/02/18 10:00 02/02/18 09:58 Lantus SC 10 units DAILY KAROLINE Administration Midodrine 2.5 mg 02/02/18 10:00 02/02/18 10:29 Proamatine PO 2.5 mg TID KAROLINE Administration Multivitamins 1 tab 01/27/18 10:00 02/02/18 09:58 Hexavitamin PO 1 tab DAILY KAROLINE Administration Pantoprazole Sodium 40 mg 02/02/18 09:45 02/02/18 09:58 Protonix Inj IVP 40 mg Q12H KAROLINE Administration Rosuvastatin Calcium 20 mg 01/26/18 22:00 02/01/18 21:55 Crestor PO 20 mg HS KAROLINE Administration - Patient Studies Lab Studies: Lab Studies 02/02/18 02/02/18 02/02/18 Range/Units 11:11 10:21 05:55 WBC (4.8-10.8) K/uL RBC (4.40-5.90) Mil/uL Hgb (12.0-18.0) g/dL Hct (35.0-51.0) % MCV (80.0-94.0) fL MCH (27.0-31.0) pg MCHC (33.0-37.0) g/dL RDW (11.5-14.5) % Plt Count (130-400) K/uL MPV (7.2-11.7) fL Neut % (Auto) (50.0-75.0) % Lymph % (Auto) (20.0-40.0) % Starr % (Auto) (0.0-10.0) % Eos % (Auto) (0.0-4.0) % Baso % (Auto) (0.0-2.0) % Neut # (Auto) (1.8-7.0) K/uL Lymph # (Auto) (1.0-4.3) K/uL Starr # (Auto) (0.0-0.8) K/uL Eos # (Auto) (0.0-0.7) K/uL Baso # (Auto) (0.0-0.2) K/uL PT 19.5 H (9.7-12.2) SECONDS INR 1.8 APTT 36 H (21-34) SECONDS Sodium 148 (132-148) mmol/L Potassium 4.5 (3.6-5.2) mmol/L Chloride 119 H (98-107) mmol/L Carbon Dioxide 20 L (22-30) mmol/L Anion Gap 13 (10-20) BUN 46 H (9-20) mg/dL Creatinine 0.9 (0.8-1.5) mg/dL Est GFR ( Amer) > 60 Est GFR (Non-Af Amer) > 60 POC Glucose (mg/dL) 315 H (65-110) mg/dL Random Glucose 256 H (75-110) mg/dL Calcium 9.1 (8.6-10.4) mg/dl Phosphorus 3.0 (2.5-4.5) mg/dL Magnesium 1.4 L (1.6-2.3) mg/dL Total Bilirubin 0.4 (0.2-1.3) mg/dL AST 23 (17-59) U/L ALT 24 (21-72) U/L Alkaline Phosphatase 44 (38-126) U/L Total Protein 4.5 L (6.3-8.3) g/dL Albumin 2.1 L (3.5-5.0) g/dL Globulin 2.4 (2.2-3.9) gm/dL Albumin/Globulin Ratio 0.9 L (1.0-2.1) Blood Type Antibody Screen 02/02/18 02/02/18 02/02/18 Range/Units 05:53 05:30 05:28 WBC 8.2 (4.8-10.8) K/uL RBC 2.35 L (4.40-5.90) Mil/uL Hgb 7.1 L (12.0-18.0) g/dL Hct 21.2 L (35.0-51.0) % MCV 90.5 (80.0-94.0) fL MCH 30.3 (27.0-31.0) pg MCHC 33.5 (33.0-37.0) g/dL RDW 16.6 H (11.5-14.5) % Plt Count 107 L (130-400) K/uL MPV 10.1 (7.2-11.7) fL Neut % (Auto) 81.9 H (50.0-75.0) % Lymph % (Auto) 15.2 L (20.0-40.0) % Starr % (Auto) 2.8 (0.0-10.0) % Eos % (Auto) 0.1 (0.0-4.0) % Baso % (Auto) 0.0 (0.0-2.0) % Neut # (Auto) 6.7 (1.8-7.0) K/uL Lymph # (Auto) 1.2 (1.0-4.3) K/uL Starr # (Auto) 0.2 (0.0-0.8) K/uL Eos # (Auto) 0.0 (0.0-0.7) K/uL Baso # (Auto) 0.0 (0.0-0.2) K/uL PT (9.7-12.2) SECONDS INR APTT (21-34) SECONDS Sodium (132-148) mmol/L Potassium (3.6-5.2) mmol/L Chloride (98-107) mmol/L Carbon Dioxide (22-30) mmol/L Anion Gap (10-20) BUN (9-20) mg/dL Creatinine (0.8-1.5) mg/dL Est GFR ( Amer) Est GFR (Non-Af Amer) POC Glucose (mg/dL) 383 H 340 H (65-110) mg/dL Random Glucose (75-110) mg/dL Calcium (8.6-10.4) mg/dl Phosphorus (2.5-4.5) mg/dL Magnesium (1.6-2.3) mg/dL Total Bilirubin (0.2-1.3) mg/dL AST (17-59) U/L ALT (21-72) U/L Alkaline Phosphatase (38-126) U/L Total Protein (6.3-8.3) g/dL Albumin (3.5-5.0) g/dL Globulin (2.2-3.9) gm/dL Albumin/Globulin Ratio (1.0-2.1) Blood Type Antibody Screen 02/01/18 02/01/18 02/01/18 Range/Units 23:22 22:05 17:25 WBC 9.6 (4.8-10.8) K/uL RBC 2.68 L (4.40-5.90) Mil/uL Hgb 9.0 L (12.0-18.0) g/dL Hct 24.4 L (35.0-51.0) % MCV 91.0 (80.0-94.0) fL MCH 33.6 H (27.0-31.0) pg MCHC 37.0 (33.0-37.0) g/dL RDW 17.2 H (11.5-14.5) % Plt Count 108 L (130-400) K/uL MPV 9.2 (7.2-11.7) fL Neut % (Auto) (50.0-75.0) % Lymph % (Auto) (20.0-40.0) % Starr % (Auto) (0.0-10.0) % Eos % (Auto) (0.0-4.0) % Baso % (Auto) (0.0-2.0) % Neut # (Auto) (1.8-7.0) K/uL Lymph # (Auto) (1.0-4.3) K/uL Starr # (Auto) (0.0-0.8) K/uL Eos # (Auto) (0.0-0.7) K/uL Baso # (Auto) (0.0-0.2) K/uL PT (9.7-12.2) SECONDS INR APTT (21-34) SECONDS Sodium (132-148) mmol/L Potassium (3.6-5.2) mmol/L Chloride (98-107) mmol/L Carbon Dioxide (22-30) mmol/L Anion Gap (10-20) BUN (9-20) mg/dL Creatinine (0.8-1.5) mg/dL Est GFR ( Amer) Est GFR (Non-Af Amer) POC Glucose (mg/dL) 308 H 263 H (65-110) mg/dL Random Glucose (75-110) mg/dL Calcium (8.6-10.4) mg/dl Phosphorus (2.5-4.5) mg/dL Magnesium (1.6-2.3) mg/dL Total Bilirubin (0.2-1.3) mg/dL AST (17-59) U/L ALT (21-72) U/L Alkaline Phosphatase (38-126) U/L Total Protein (6.3-8.3) g/dL Albumin (3.5-5.0) g/dL Globulin (2.2-3.9) gm/dL Albumin/Globulin Ratio (1.0-2.1) Blood Type Antibody Screen 02/01/18 01/31/18 Range/Units 17:20 10:19 WBC 7.1 (4.8-10.8) K/uL RBC 2.79 L (4.40-5.90) Mil/uL Hgb 9.3 L (12.0-18.0) g/dL Hct 25.4 L (35.0-51.0) % MCV 91.2 (80.0-94.0) fL MCH 33.2 H (27.0-31.0) pg MCHC 36.4 (33.0-37.0) g/dL RDW 17.8 H (11.5-14.5) % Plt Count 102 L (130-400) K/uL MPV 10.4 (7.2-11.7) fL Neut % (Auto) 85.3 H (50.0-75.0) % Lymph % (Auto) 10.6 L (20.0-40.0) % Starr % (Auto) 3.7 (0.0-10.0) % Eos % (Auto) 0.2 (0.0-4.0) % Baso % (Auto) 0.2 (0.0-2.0) % Neut # (Auto) 6.0 (1.8-7.0) K/uL Lymph # (Auto) 0.8 L (1.0-4.3) K/uL Starr # (Auto) 0.3 (0.0-0.8) K/uL Eos # (Auto) 0.0 (0.0-0.7) K/uL Baso # (Auto) 0.0 (0.0-0.2) K/uL PT (9.7-12.2) SECONDS INR APTT (21-34) SECONDS Sodium (132-148) mmol/L Potassium (3.6-5.2) mmol/L Chloride (98-107) mmol/L Carbon Dioxide (22-30) mmol/L Anion Gap (10-20) BUN (9-20) mg/dL Creatinine (0.8-1.5) mg/dL Est GFR ( Amer) Est GFR (Non-Af Amer) POC Glucose (mg/dL) (65-110) mg/dL Random Glucose (75-110) mg/dL Calcium (8.6-10.4) mg/dl Phosphorus (2.5-4.5) mg/dL Magnesium (1.6-2.3) mg/dL Total Bilirubin (0.2-1.3) mg/dL AST (17-59) U/L ALT (21-72) U/L Alkaline Phosphatase (38-126) U/L Total Protein (6.3-8.3) g/dL Albumin (3.5-5.0) g/dL Globulin (2.2-3.9) gm/dL Albumin/Globulin Ratio (1.0-2.1) Blood Type O POSITIVE Antibody Screen Negative Laboratory Results - last 24 hr 01/31/18 02/01/18 02/01/18 10:19 17:20 17:25 WBC 7.1 RBC 2.79 L Hgb 9.3 L Hct 25.4 L MCV 91.2 MCH 33.2 H MCHC 36.4 RDW 17.8 H Plt Count 102 L MPV 10.4 Neut % (Auto) 85.3 H Lymph % (Auto) 10.6 L Starr % (Auto) 3.7 Eos % (Auto) 0.2 Baso % (Auto) 0.2 Neut # (Auto) 6.0 Lymph # (Auto) 0.8 L Starr # (Auto) 0.3 Eos # (Auto) 0.0 Baso # (Auto) 0.0 PT INR APTT Sodium Potassium Chloride Carbon Dioxide Anion Gap BUN Creatinine Est GFR ( Amer) Est GFR (Non-Af Amer) POC Glucose (mg/dL) 263 H Random Glucose Calcium Phosphorus Magnesium Total Bilirubin AST ALT Alkaline Phosphatase Total Protein Albumin Globulin Albumin/Globulin Ratio Blood Type O POSITIVE Antibody Screen Negative 02/01/18 02/01/18 02/02/18 22:05 23:22 05:28 WBC 9.6 RBC 2.68 L Hgb 9.0 L Hct 24.4 L MCV 91.0 MCH 33.6 H MCHC 37.0 RDW 17.2 H Plt Count 108 L MPV 9.2 Neut % (Auto) Lymph % (Auto) Starr % (Auto) Eos % (Auto) Baso % (Auto) Neut # (Auto) Lymph # (Auto) Starr # (Auto) Eos # (Auto) Baso # (Auto) PT INR APTT Sodium Potassium Chloride Carbon Dioxide Anion Gap BUN Creatinine Est GFR ( Amer) Est GFR (Non-Af Amer) POC Glucose (mg/dL) 308 H 340 H Random Glucose Calcium Phosphorus Magnesium Total Bilirubin AST ALT Alkaline Phosphatase Total Protein Albumin Globulin Albumin/Globulin Ratio Blood Type Antibody Screen 02/02/18 02/02/18 02/02/18 05:30 05:53 05:55 WBC 8.2 RBC 2.35 L Hgb 7.1 L Hct 21.2 L MCV 90.5 MCH 30.3 MCHC 33.5 RDW 16.6 H Plt Count 107 L MPV 10.1 Neut % (Auto) 81.9 H Lymph % (Auto) 15.2 L Starr % (Auto) 2.8 Eos % (Auto) 0.1 Baso % (Auto) 0.0 Neut # (Auto) 6.7 Lymph # (Auto) 1.2 Starr # (Auto) 0.2 Eos # (Auto) 0.0 Baso # (Auto) 0.0 PT INR APTT Sodium 148 Potassium 4.5 Chloride 119 H Carbon Dioxide 20 L Anion Gap 13 BUN 46 H Creatinine 0.9 Est GFR ( Amer) > 60 Est GFR (Non-Af Amer) > 60 POC Glucose (mg/dL) 383 H Random Glucose 256 H Calcium 9.1 Phosphorus 3.0 Magnesium 1.4 L Total Bilirubin 0.4 AST 23 ALT 24 Alkaline Phosphatase 44 Total Protein 4.5 L Albumin 2.1 L Globulin 2.4 Albumin/Globulin Ratio 0.9 L Blood Type Antibody Screen 02/02/18 02/02/18 10:21 11:11 WBC RBC Hgb Hct MCV MCH MCHC RDW Plt Count MPV Neut % (Auto) Lymph % (Auto) Starr % (Auto) Eos % (Auto) Baso % (Auto) Neut # (Auto) Lymph # (Auto) Starr # (Auto) Eos # (Auto) Baso # (Auto) PT 19.5 H INR 1.8 APTT 36 H Sodium Potassium Chloride Carbon Dioxide Anion Gap BUN Creatinine Est GFR ( Amer) Est GFR (Non-Af Amer) POC Glucose (mg/dL) 315 H Random Glucose Calcium Phosphorus Magnesium Total Bilirubin AST ALT Alkaline Phosphatase Total Protein Albumin Globulin Albumin/Globulin Ratio Blood Type Antibody Screen Fingerstick Blood Sugar Results: 263 Review of Systems - Review of Systems Review of Systems: As per HPI Assessment/Plan - Assessment and Plan (Free Text) Assessment: 77 y/o male with PMhx of DM, PVD, h/o duodenal perforation s/p surgical correction presents to [facility] (formerly [facility]) with abdominal pain and dx with incidental finding of pulmonary embolism. 02/01/18: Patient found to have acute GI Bleed. Plan: Neuro: GCS: 15 Sedation: None Cardio: A: NSTEMI (Type II), Hypotension, HLD, Multivessel CAD, Wide Complex Tachycardia (Resolved) Pressors: None ECHO on 12/25 showed 65%-70% EF and Grade I Abnormal Relaxation Pattern. Heparin Held 2/2 to GI Bleed Cardiology on Consult, Recs Appreciated Not a candidate for CABG per Cardiology Continue Crestor 20 HS Digoxin BP Tolerates Started Midodrine 2.5 mg PO TID Pulm: A: PE No indication for full Anticoagulation due to adequate Oxygenation, only a small subsegmental defect on CT and Anemia Pulmonology on Consult, Recs Appreciated. ID A: Sepsis (Resolve) Afebrile,No Leukocytosis Blood Culture - NEGATIVE | Urine Culture - NEGATIVE | MRSA - Negative Flagyl 500 Q8H, Vancomycin 1g Daily, Aztreonam 2gm Q8H [employer] Coverage - DISCONTINUED GI A: s/p Duodenal ulcer perforation repair, Abdominal Abcess, Upper GI Bleed? Peripancreatic fluid collection measured 7 cm x 4 cm on 12/24/2017. It currently measures 6 x 1. 5cm Small peripancreatic fluid collection is not amendable to percutaneious drainage per IR. GI on Conuslt, Recs Appreciated IR on Consult, Recs Appreciated Gen Surg on Consult, Recs Appreciated Diet: Puree Diet w/ Thin Liquids Protonix 40 IV Q12H Renal A: Hypomagnesemia Replenished magnesium Endo A: Elevated Blood Sugar Novolog ISS Q6H Lantus 10 SC Daily Consider HgBA1C Heme/Onc A: Anemia, Thrombocytopenia Monitor H/H Low HgB Today, Transfused 1 Unit of PRBC's Monitor plts. Proph Protonix 40 IV Q12 SCD's Patient seen and discussed with ICU Attending Francisco Baker, PGY-1 <Rosa Washington M - Last Filed: 02/02/18 18:47> CCU Objective - Vital Signs / Intake & Output Vital Signs (Last 4 hours): Vital Signs Temp Pulse Resp BP Pulse Ox 02/02/18 18:00 108 H 14 100 02/02/18 17:58 96 H 18 102/66 100 02/02/18 17:00 110 H 16 98 02/02/18 16:59 99 H 15 102/68 98 02/02/18 16:00 97.8 F 120 H 14 97 02/02/18 15:58 102 H 15 104/79 98 02/02/18 15:00 106 H 14 100 02/02/18 14:57 105 H 19 101/47 L 97 02/02/18 14:42 95 H 15 108/57 L 100 Intake and Output (Last 8hrs): Intake & Output 02/02/18 02/02/18 02/02/18 06:59 14:59 22:59 Intake Total 984 692 283 Output Total 600 500 Balance 384 692 -217 Weight 124 lb 10 oz Intake: Intake, IV Amount 480 220 0 Right Distal Port PICC 80 220 Right Proximal Port PICC 400 0 TPN/PPN 336 126 Blood Product 283 283 Apheresis Rbc Cp2d As3 Lr 283 1st Unit [id number] Lipid 168 63 Output: Urine 600 500 Urethral (Paulson) 600 Urine, Voided 500 Other: # Bowel Movements 3 1 - Medications Active Medications: Active Medications Generic Name Dose Route Start Last Admin Trade Name Freq PRN Reason Stop Dose Admin Hydromorphone HCl 0.5 mg 01/30/18 09:10 02/02/18 05:41 Dilaudid IVP 0.5 mg Q4H PRN Administration Pain, severe (8-10) Insulin Aspart 0 unit 02/02/18 12:00 02/02/18 17:50 Novolog SC 3 unit Q6H KAROLINE Administration Protocol Insulin Glargine 10 unit 02/02/18 10:00 02/02/18 09:58 Lantus SC 10 units DAILY KAROLINE Administration Midodrine 2.5 mg 02/02/18 10:00 02/02/18 17:07 Proamatine PO 2.5 mg TID KAROLINE Administration Multivitamins 1 tab 01/27/18 10:00 02/02/18 09:58 Hexavitamin PO 1 tab DAILY KAROLINE Administration Pantoprazole Sodium 40 mg 02/02/18 09:45 02/02/18 09:58 Protonix Inj IVP 40 mg Q12H KAROLINE Administration Rosuvastatin Calcium 20 mg 01/26/18 22:00 02/01/18 21:55 Crestor PO 20 mg HS KAROLINE Administration - Patient Studies Lab Studies: Lab Studies 02/02/18 02/02/18 02/02/18 Range/Units 11:11 10:21 05:55 WBC (4.8-10.8) K/uL RBC (4.40-5.90) Mil/uL Hgb (12.0-18.0) g/dL Hct (35.0-51.0) % MCV (80.0-94.0) fL MCH (27.0-31.0) pg MCHC (33.0-37.0) g/dL RDW (11.5-14.5) % Plt Count (130-400) K/uL MPV (7.2-11.7) fL Neut % (Auto) (50.0-75.0) % Lymph % (Auto) (20.0-40.0) % Starr % (Auto) (0.0-10.0) % Eos % (Auto) (0.0-4.0) % Baso % (Auto) (0.0-2.0) % Neut # (Auto) (1.8-7.0) K/uL Lymph # (Auto) (1.0-4.3) K/uL Starr # (Auto) (0.0-0.8) K/uL Eos # (Auto) (0.0-0.7) K/uL Baso # (Auto) (0.0-0.2) K/uL PT 19.5 H (9.7-12.2) SECONDS INR 1.8 APTT 36 H (21-34) SECONDS Sodium 148 (132-148) mmol/L Potassium 4.5 (3.6-5.2) mmol/L Chloride 119 H (98-107) mmol/L Carbon Dioxide 20 L (22-30) mmol/L Anion Gap 13 (10-20) BUN 46 H (9-20) mg/dL Creatinine 0.9 (0.8-1.5) mg/dL Est GFR ( Amer) > 60 Est GFR (Non-Af Amer) > 60 POC Glucose (mg/dL) 315 H (65-110) mg/dL Random Glucose 256 H (75-110) mg/dL Calcium 9.1 (8.6-10.4) mg/dl Phosphorus 3.0 (2.5-4.5) mg/dL Magnesium 1.4 L (1.6-2.3) mg/dL Total Bilirubin 0.4 (0.2-1.3) mg/dL AST 23 (17-59) U/L ALT 24 (21-72) U/L Alkaline Phosphatase 44 (38-126) U/L Total Protein 4.5 L (6.3-8.3) g/dL Albumin 2.1 L (3.5-5.0) g/dL Globulin 2.4 (2.2-3.9) gm/dL Albumin/Globulin Ratio 0.9 L (1.0-2.1) Blood Type Antibody Screen 02/02/18 02/02/18 02/02/18 Range/Units 05:53 05:30 05:28 WBC 8.2 (4.8-10.8) K/uL RBC 2.35 L (4.40-5.90) Mil/uL Hgb 7.1 L (12.0-18.0) g/dL Hct 21.2 L (35.0-51.0) % MCV 90.5 (80.0-94.0) fL MCH 30.3 (27.0-31.0) pg MCHC 33.5 (33.0-37.0) g/dL RDW 16.6 H (11.5-14.5) % Plt Count 107 L (130-400) K/uL MPV 10.1 (7.2-11.7) fL Neut % (Auto) 81.9 H (50.0-75.0) % Lymph % (Auto) 15.2 L (20.0-40.0) % Starr % (Auto) 2.8 (0.0-10.0) % Eos % (Auto) 0.1 (0.0-4.0) % Baso % (Auto) 0.0 (0.0-2.0) % Neut # (Auto) 6.7 (1.8-7.0) K/uL Lymph # (Auto) 1.2 (1.0-4.3) K/uL Starr # (Auto) 0.2 (0.0-0.8) K/uL Eos # (Auto) 0.0 (0.0-0.7) K/uL Baso # (Auto) 0.0 (0.0-0.2) K/uL PT (9.7-12.2) SECONDS INR APTT (21-34) SECONDS Sodium (132-148) mmol/L Potassium (3.6-5.2) mmol/L Chloride (98-107) mmol/L Carbon Dioxide (22-30) mmol/L Anion Gap (10-20) BUN (9-20) mg/dL Creatinine (0.8-1.5) mg/dL Est GFR ( Amer) Est GFR (Non-Af Amer) POC Glucose (mg/dL) 383 H 340 H (65-110) mg/dL Random Glucose (75-110) mg/dL Calcium (8.6-10.4) mg/dl Phosphorus (2.5-4.5) mg/dL Magnesium (1.6-2.3) mg/dL Total Bilirubin (0.2-1.3) mg/dL AST (17-59) U/L ALT (21-72) U/L Alkaline Phosphatase (38-126) U/L Total Protein (6.3-8.3) g/dL Albumin (3.5-5.0) g/dL Globulin (2.2-3.9) gm/dL Albumin/Globulin Ratio (1.0-2.1) Blood Type Antibody Screen 02/01/18 02/01/18 01/31/18 Range/Units 23:22 22:05 10:19 WBC 9.6 (4.8-10.8) K/uL RBC 2.68 L (4.40-5.90) Mil/uL Hgb 9.0 L (12.0-18.0) g/dL Hct 24.4 L (35.0-51.0) % MCV 91.0 (80.0-94.0) fL MCH 33.6 H (27.0-31.0) pg MCHC 37.0 (33.0-37.0) g/dL RDW 17.2 H (11.5-14.5) % Plt Count 108 L (130-400) K/uL MPV 9.2 (7.2-11.7) fL Neut % (Auto) (50.0-75.0) % Lymph % (Auto) (20.0-40.0) % Starr % (Auto) (0.0-10.0) % Eos % (Auto) (0.0-4.0) % Baso % (Auto) (0.0-2.0) % Neut # (Auto) (1.8-7.0) K/uL Lymph # (Auto) (1.0-4.3) K/uL Starr # (Auto) (0.0-0.8) K/uL Eos # (Auto) (0.0-0.7) K/uL Baso # (Auto) (0.0-0.2) K/uL PT (9.7-12.2) SECONDS INR APTT (21-34) SECONDS Sodium (132-148) mmol/L Potassium (3.6-5.2) mmol/L Chloride (98-107) mmol/L Carbon Dioxide (22-30) mmol/L Anion Gap (10-20) BUN (9-20) mg/dL Creatinine (0.8-1.5) mg/dL Est GFR ( Amer) Est GFR (Non-Af Amer) POC Glucose (mg/dL) 308 H (65-110) mg/dL Random Glucose (75-110) mg/dL Calcium (8.6-10.4) mg/dl Phosphorus (2.5-4.5) mg/dL Magnesium (1.6-2.3) mg/dL Total Bilirubin (0.2-1.3) mg/dL AST (17-59) U/L ALT (21-72) U/L Alkaline Phosphatase (38-126) U/L Total Protein (6.3-8.3) g/dL Albumin (3.5-5.0) g/dL Globulin (2.2-3.9) gm/dL Albumin/Globulin Ratio (1.0-2.1) Blood Type O POSITIVE Antibody Screen Negative Laboratory Results - last 24 hr 01/31/18 02/01/18 02/01/18 10:19 22:05 23:22 WBC 9.6 RBC 2.68 L Hgb 9.0 L Hct 24.4 L MCV 91.0 MCH 33.6 H MCHC 37.0 RDW 17.2 H Plt Count 108 L MPV 9.2 Neut % (Auto) Lymph % (Auto) Starr % (Auto) Eos % (Auto) Baso % (Auto) Neut # (Auto) Lymph # (Auto) Starr # (Auto) Eos # (Auto) Baso # (Auto) PT INR APTT Sodium Potassium Chloride Carbon Dioxide Anion Gap BUN Creatinine Est GFR ( Amer) Est GFR (Non-Af Amer) POC Glucose (mg/dL) 308 H Random Glucose Calcium Phosphorus Magnesium Total Bilirubin AST ALT Alkaline Phosphatase Total Protein Albumin Globulin Albumin/Globulin Ratio Blood Type O POSITIVE Antibody Screen Negative 02/02/18 02/02/18 02/02/18 05:28 05:30 05:53 WBC 8.2 RBC 2.35 L Hgb 7.1 L Hct 21.2 L MCV 90.5 MCH 30.3 MCHC 33.5 RDW 16.6 H Plt Count 107 L MPV 10.1 Neut % (Auto) 81.9 H Lymph % (Auto) 15.2 L Starr % (Auto) 2.8 Eos % (Auto) 0.1 Baso % (Auto) 0.0 Neut # (Auto) 6.7 Lymph # (Auto) 1.2 Starr # (Auto) 0.2 Eos # (Auto) 0.0 Baso # (Auto) 0.0 PT INR APTT Sodium Potassium Chloride Carbon Dioxide Anion Gap BUN Creatinine Est GFR ( Amer) Est GFR (Non-Af Amer) POC Glucose (mg/dL) 340 H 383 H Random Glucose Calcium Phosphorus Magnesium Total Bilirubin AST ALT Alkaline Phosphatase Total Protein Albumin Globulin Albumin/Globulin Ratio Blood Type Antibody Screen 0502/02/18 02/02/18 05:55 10:21 11:11 WBC RBC Hgb Hct MCV MCH MCHC RDW Plt Count MPV Neut % (Auto) Lymph % (Auto) Starr % (Auto) Eos % (Auto) Baso % (Auto) Neut # (Auto) Lymph # (Auto) Starr # (Auto) Eos # (Auto) Baso # (Auto) PT 19.5 H INR 1.8 APTT 36 H Sodium 148 Potassium 4.5 Chloride 119 H Carbon Dioxide 20 L Anion Gap 13 BUN 46 H Creatinine 0.9 Est GFR ( Amer) > 60 Est GFR (Non-Af Amer) > 60 POC Glucose (mg/dL) 315 H Random Glucose 256 H Calcium 9.1 Phosphorus 3.0 Magnesium 1.4 L Total Bilirubin 0.4 AST 23 ALT 24 Alkaline Phosphatase 44 Total Protein 4.5 L Albumin 2.1 L Globulin 2.4 Albumin/Globulin Ratio 0.9 L Blood Type Antibody Screen Critical Care Progress Note - Nutrition Nutrition: Nutrition Category Date Time Status NPO Diet [DIET] Diets 02/02/18 Dinner Active Assessment/Plan - Assessment and Plan (Free Text) Plan: Above resident note reviewed and verified. Patient seen and examined at bedside. Patient with h/o duodenal bleeding admitted to ICU for hypotension and adn tachycardia. Acute on chronic blood loss anemia -Suspect slow and chronic GI bleed now requiring 3 units of blood and episodic decrease in hb, continue serial cbc and transfuse to keep hemodynamic stability -NPO -IV PPI -b/l pleural effusion: would hold IVF as patient is (+)balance -it hypoglycemic, would start D5 at 42 ml/hr (~ 1liter per day) -NPO for endoscopy in AM -Prognosis guarded. -cbc at 9 PM - Date & Time Date: 02/02/18 Time: 09:10"
--- NOTE | 2018-02-02 14:20 | CP.PCM.PN ---
Subjective - Date & Time of Evaluation Date of Evaluation: 02/02/18 Time of Evaluation: 14:15 - Subjective Subjective: CC: Follow up GI bleed Hgb dropped again. Review of RN notes reveals "tarry " stool yesterday afternoon. Patient ate today. Receiving PRBC transfusion at present. pt is laying in black bloody stool D/W resident and RN Objective - Vital Signs/Intake and Output Vital Signs (last 24 hours): Temp Pulse Resp BP Pulse Ox 97.6 F 106 H 16 113/59 L 99 02/02/18 12:42 02/02/18 14:12 02/02/18 14:12 02/02/18 14:12 02/02/18 14:12 Intake and Output: 02/02/18 02/02/18 06:59 18:59 Intake Total 1436 409 Output Total 600 Balance 836 409 - Medications Medications: Current Medications Hydromorphone HCl (Dilaudid) 0.5 mg IVP Q4H PRN PRN Reason: Pain, severe (8-10) Last Admin: 02/02/18 05:41 Dose: 0.5 mg Insulin Aspart (Novolog) 0 unit SC Q6H KAROLINE PRN Reason: Protocol Last Admin: 02/02/18 13:31 Dose: 6 unit Insulin Glargine (Lantus) 10 unit SC DAILY [facility] Last Admin: 02/02/18 09:58 Dose: 10 units Midodrine (Proamatine) 2.5 mg PO TID [facility] Last Admin: 02/02/18 13:31 Dose: 2.5 mg Multivitamins (Hexavitamin) 1 tab PO DAILY [facility] Last Admin: 02/02/18 09:58 Dose: 1 tab Pantoprazole Sodium (Protonix Inj) 40 mg IVP Q12H [facility]AROLINE Last Admin: 02/02/18 09:58 Dose: 40 mg Rosuvastatin Calcium (Crestor) 20 mg PO HS [facility] Last Admin: 02/01/18 21:55 Dose: 20 mg - Labs Labs: 02/02/18 05:53 02/02/18 05:55 PT 19.5 SECONDS (9.7-12.2) H 02/02/18 10:21 INR 1.8 02/02/18 10:21 APTT 36 SECONDS (21-34) H 02/02/18 10:21 - Constitutional Appears: Chronically Ill - Respiratory Exam Respiratory Exam: Decreased Breath Sounds - Cardiovascular Exam Cardiovascular Exam: Tachycardia, REGULAR RHYTHM - GI/Abdominal Exam GI & Abdominal Exam: Soft, Normal Bowel Sounds. absent: Tenderness, Mass Assessment and Plan (1) Abdominal pain Status: Acute (2) Pulmonary embolism Status: Acute (3) Upper GI bleed Assessment & Plan: Recurrent melena, with Hgb drop. Patient had duodenal patch surgery in December for perforated DU. Rec: transfuse PRBCs as needed. Will make NPO and plan on EGD within next 24 hrs. No family presently available. Will need medical clearance for EGD in view of recent PE and STEMI. Status: Acute (4) Acute non-ST elevation myocardial infarction (NSTEMI) Status: Acute (5) Perforated abdominal viscus Status: Acute
[2018-02-03] MEDS: (Novolog) Insulin Aspart, Recombinant 100 u/ml 10 ml vial SC SCH ×5 (00:59→23:53)
--- NOTE | 2018-02-03 04:37 | CP.PCM.PN ---
Subjective - Date & Time of Evaluation Date of Evaluation: 02/02/18 Time of Evaluation: 19:40 - Subjective Subjective: Pt seen and examined at bedside, Hgb dropped again. Review of RN notes reveals "tarry " stool yesterday afternoon. Patient ate today. Receiving PRBC transfusion at present. pt is laying in black bloody stool, pt is for GI eval and possible EGD Objective - Vital Signs/Intake and Output Vital Signs (last 24 hours): Temp Pulse Resp BP Pulse Ox 97.3 F L 106 H 11 L 130/66 97 02/03/18 00:00 02/03/18 03:00 02/03/18 03:00 02/03/18 02:59 02/03/18 03:00 Intake and Output: 02/02/18 02/03/18 18:59 06:59 Intake Total 975 0 Output Total 500 Balance 475 0 - Medications Medications: Current Medications Hydromorphone HCl (Dilaudid) 0.5 mg IVP Q4H PRN PRN Reason: Pain, severe (8-10) Last Admin: 02/02/18 21:31 Dose: 0.5 mg Insulin Aspart (Novolog) 0 unit SC Q6H [facility] PRN Reason: Protocol Last Admin: 02/03/18 00:59 Dose: Not Given Insulin Glargine (Lantus) 10 unit SC DAILY [facility] Last Admin: 02/02/18 09:58 Dose: 10 units Midodrine (Proamatine) 2.5 mg PO TID [facility] Last Admin: 02/02/18 17:07 Dose: 2.5 mg Multivitamins (Hexavitamin) 1 tab PO DAILY [facility] Last Admin: 02/02/18 09:58 Dose: 1 tab Pantoprazole Sodium (Protonix Inj) 40 mg IVP Q12H [facility] Last Admin: 02/02/18 21:31 Dose: 40 mg Rosuvastatin Calcium (Crestor) 20 mg PO HS [facility] Last Admin: 02/02/18 21:31 Dose: 20 mg - Labs Labs: 02/02/18 05:53 02/02/18 05:55 PT 19.5 SECONDS (9.7-12.2) H 02/02/18 10:21 INR 1.8 02/02/18 10:21 APTT 36 SECONDS (21-34) H 02/02/18 10:21 - Constitutional Appears: No Acute Distress - Head Exam Head Exam: ATRAUMATIC, NORMAL INSPECTION, NORMOCEPHALIC - Eye Exam Eye Exam: EOMI, Normal appearance, PERRL Pupil Exam: NORMAL ACCOMODATION, PERRL - ENT Exam ENT Exam: Mucous Membranes Moist, Normal Exam - Neck Exam Neck Exam: Full ROM, Normal Inspection. absent: Lymphadenopathy - Respiratory Exam Respiratory Exam: Clear to Ausculation Bilateral, NORMAL BREATHING PATTERN - Cardiovascular Exam Cardiovascular Exam: REGULAR RHYTHM, +S1, +S2. absent: Murmur - GI/Abdominal Exam GI & Abdominal Exam: Soft, Normal Bowel Sounds. absent: Tenderness - Rectal Exam Rectal Exam: Deferred Assessment and Plan (1) Abdominal pain Status: Acute (2) Hypotension (arterial) Status: Acute (3) Pulmonary embolism Status: Acute (4) Upper GI bleed Status: Acute (5) Acute non-ST elevation myocardial infarction (NSTEMI) Status: Acute (6) CHF (congestive heart failure) Status: Acute (7) Diabetes mellitus Status: Acute (8) Diabetic nephropathy Status: Acute (9) Failure to thrive in adult Status: Acute (10) Intraabdominal fluid collection Status: Acute (11) Pulmonary emboli Status: Suspected
[2018-02-03 06:28] LABS: HEMOGLOBIN 7.1 g/dL (12.0-18.0); MEAN CELL VOLUME 86.2 fL (80.0-94.0); MEAN CORPUSCULAR HEMOGLOBIN 28.3 pg (27.0-31.0); MEAN CORPUSCULAR HGB CONC 32.8 g/dL (33.0-37.0); MEAN PLATELET VOLUME 10.5 fL (7.2-11.7); RBC 2.52 Mil/uL (4.40-5.90); RED CELL DISTRIBUTION WIDTH 19.5 % (11.5-14.5)
[2018-02-03 06:45] LABS: ALB/GLOB RATIO 0.8 (1.0-2.1); ALBUMIN 1.8 g/dL (3.5-5.0); ALT/SGPT 24 U/L (21-72); AST/SGOT 18 U/L (17-59); BLOOD UREA NITROGEN 50 mg/dL (9-20); CALCIUM 9.2 mg/dl (8.6-10.4); GFR AFRICAN-AMERICAN > 60; GFR NON-AFRICAN AMERICAN > 60
[2018-02-03 06:51] LABS: INR 1.6; PROTHROMBIN TIME 17.6 SECONDS (9.7-12.2)
[2018-02-03] MEDS ORDERED: Phytonadione 10 mg/ml Inj (Adult) IV STA ×2 (07:24→10:19)
--- NOTE | 2018-02-03 07:25 | CP.PCM.PN ---
Subjective - Date & Time of Evaluation Date of Evaluation: 02/03/18 Time of Evaluation: 07:00 - Subjective Subjective: PAtient seen and examined at bedside. Patient with baseline tachycardia, Objective - Vital Signs/Intake and Output Vital Signs (last 24 hours): Temp Pulse Resp BP Pulse Ox 97.3 F L 102 H 11 L 119/70 100 02/03/18 04:00 02/03/18 06:00 02/03/18 06:00 02/03/18 05:58 02/03/18 06:00 Intake and Output: 02/03/18 02/03/18 06:59 18:59 Intake Total 240 Output Total 450 Balance -210 - Medications Medications: Current Medications Hydromorphone HCl (Dilaudid) 0.5 mg IVP Q4H PRN PRN Reason: Pain, severe (8-10) Last Admin: 02/02/18 21:31 Dose: 0.5 mg Insulin Aspart (Novolog) 0 unit SC Q6H [facility] PRN Reason: Protocol Last Admin: 02/03/18 05:40 Dose: Not Given Insulin Glargine (Lantus) 10 unit SC DAILY [facility] Last Admin: 02/02/18 09:58 Dose: 10 units Midodrine (Proamatine) 2.5 mg PO TID [facility] Last Admin: 02/02/18 17:07 Dose: 2.5 mg Multivitamins (Hexavitamin) 1 tab PO DAILY [facility] Last Admin: 02/02/18 09:58 Dose: 1 tab Pantoprazole Sodium (Protonix Inj) 40 mg IVP Q12H [facility] Last Admin: 02/02/18 21:31 Dose: 40 mg Phytonadione (Vitamin K Inj) 10 mg IV STAT STA Stop: 02/03/18 07:25 Rosuvastatin Calcium (Crestor) 20 mg PO HS [facility] Last Admin: 02/02/18 21:31 Dose: 20 mg - Labs Labs: 02/03/18 06:18 02/03/18 06:16 PT 17.6 SECONDS (9.7-12.2) H 02/03/18 06:18 INR 1.6 02/03/18 06:18 APTT 36 SECONDS (21-34) H 02/02/18 10:21 - Constitutional Appears: Non-toxic - Head Exam Head Exam: ATRAUMATIC, NORMAL INSPECTION - Eye Exam Eye Exam: EOMI - ENT Exam ENT Exam: Mucous Membranes Moist - Respiratory Exam Respiratory Exam: Rales, NORMAL BREATHING PATTERN - Cardiovascular Exam Cardiovascular Exam: Irregular Rhythm, +S1, +S2 - GI/Abdominal Exam GI & Abdominal Exam: Soft. absent: Guarding, Rigid, Tenderness - Extremities Exam Extremities Exam: Pedal Edema - Neurological Exam Neurological Exam: Alert, Awake, Oriented x3 Assessment and Plan - Assessment and Plan (Free Text) Assessment: Acute on chronic blood loss anemia -Suspect slow and chronic GI bleed now requiring 3 units of blood and episodic decrease in hb, continue serial cbc and transfuse to keep hemodynamic stability -02/02/2018 9PM CBC pending -today morning cbc reveals decrease in cbc -will transfuse 2 units -hypernatremia: continue D5 at 42 ml/hr -NPO -IV PPI -b/l pleural effusion: chronic -it hypoglycemic, would start D5 at 42 ml/hr (~ 1liter per day) -pending endoscopy today -Prognosis guarded.
[2018-02-03] MEDS ORDERED: Digoxin 500 mcg/2ml (0.5 mg/2ml) Inj IVP ONE ×2 (07:43→10:30)
--- NOTE | 2018-02-03 07:47 | CP.PCM.PN ---
Subjective - Date & Time of Evaluation Date of Evaluation: 02/03/18 Time of Evaluation: 07:35 - Subjective Subjective: patient has black tarry stools. appears comfortable, but chronically ill. denies chest pain Objective - Vital Signs/Intake and Output Vital Signs (last 24 hours): Temp Pulse Resp BP Pulse Ox 97.3 F L 102 H 11 L 119/70 100 02/03/18 04:00 02/03/18 06:00 02/03/18 06:00 02/03/18 05:58 02/03/18 06:00 Intake and Output: 02/03/18 02/03/18 06:59 18:59 Intake Total 240 Output Total 450 Balance -210 - Medications Medications: Current Medications Digoxin (Lanoxin) 0.5 mg IVP ONCE ONE Stop: 02/03/18 07:44 Hydromorphone HCl (Dilaudid) 0.5 mg IVP Q4H PRN PRN Reason: Pain, severe (8-10) Last Admin: 02/02/18 21:31 Dose: 0.5 mg Dextrose (Dextrose 5% In Water 1000 Ml) 1,000 mls @ 42 mls/hr IV .[id number] [facility] [place] Insulin Aspart (Novolog) 0 unit SC Q6H [facility] PRN Reason: Protocol Last Admin: 02/03/18 05:40 Dose: Not Given Insulin Glargine (Lantus) 10 unit SC DAILY [facility] Last Admin: 02/02/18 09:58 Dose: 10 units Midodrine (Proamatine) 2.5 mg PO TID [facility] [place] Last Admin: 02/02/18 17:07 Dose: 2.5 mg Multivitamins (Hexavitamin) 1 tab PO DAILY [facility] Last Admin: 02/02/18 09:58 Dose: 1 tab Pantoprazole Sodium (Protonix Inj) 40 mg IVP Q12H [facility] Last Admin: 02/02/18 21:31 Dose: 40 mg Rosuvastatin Calcium (Crestor) 20 mg PO HS [facility] [place] Last Admin: 02/02/18 21:31 Dose: 20 mg - Labs Labs: 02/03/18 06:18 02/03/18 06:16 PT 17.6 SECONDS (9.7-12.2) H 02/03/18 06:18 INR 1.6 02/03/18 06:18 APTT 36 SECONDS (21-34) H 02/02/18 10:21 - Constitutional Appears: Chronically Ill - Head Exam Head Exam: NORMAL INSPECTION - Eye Exam Eye Exam: Normal appearance - ENT Exam ENT Exam: Mucous Membranes Dry - Neck Exam Neck Exam: Normal Inspection - Respiratory Exam Respiratory Exam: Decreased Breath Sounds - Cardiovascular Exam Cardiovascular Exam: Tachycardia, Irregular Rhythm - GI/Abdominal Exam GI & Abdominal Exam: Hypoactive Bowel Sounds - Rectal Exam Rectal Exam: Deferred - Extremities Exam Extremities Exam: absent: Pedal Edema - Back Exam Back Exam: NORMAL INSPECTION - Neurological Exam Neurological Exam: Alert - Psychiatric Exam Psychiatric exam: Normal Affect - Skin Skin Exam: Normal Color Assessment and Plan (1) CAD (coronary artery disease) Assessment & Plan: not a candidate for CABG medical therapy Status: Acute (2) Atrial fibrillation Assessment & Plan: tachcyardic. will give digoxin now. not a candidate for anticoagulation due to bleeding Status: Acute (3) Upper GI bleed Assessment & Plan: requires endoscopy. this is a low riks procedure. patient has multiple comorbiidiites which increases his risk for complications, however this is a necessary procedure. will give digoxin now to assist with rate control and proceed with endoscopy Status: Acute
[2018-02-03] MEDS ORDERED: Propofol 10 mg/ml Inj (20 ML) ONE (08:43)
[2018-02-03] MEDS ORDERED: Etomidate 20 mg/10ml Inj IV ONE (08:49)
[2018-02-03] MEDS ORDERED: Phenylephrine 10 mg/ml Inj ONE (08:49)
[2018-02-03 10:25] VITALS: PULSE 105
[2018-02-03] MEDS: Multiple Vitamins Tab PO SCH (10:26)
[2018-02-03] MEDS ORDERED: Pantoprazole 80 MG in Sodium Chloride 0.9% 100 ML IVP SCH (10:30)
[2018-02-03] MEDS: Pantoprazole 80 MG in Sodium Chloride 0.9% 100 ML IVPB SCH ×2 (10:50→20:31)
[2018-02-03] MEDS: (Lantus) Insulin Glargine, Recombinant SC SCH (10:53)
--- NOTE | 2018-02-03 12:12 | CP.PCM.PN ---
Subjective - Date & Time of Evaluation Date of Evaluation: 02/03/18 Time of Evaluation: 12:12 - Subjective Subjective: Pulmonary Follow up Covering Dr. Faye The Patient was seen and examined at the bedside, Medical records reviewed, and management issues were discussed and formulated with the house staff. Events reviewed Pain issues, skin care, head of the bed elevation, glycemic control were addressed. Patient confused, intermittently follow commands Patient complains of generalized weakness. Denies any fevers, chills, SOB, chest pain or abdominal pain. Afebrile Critically ill patient with acute hypoxemic respiratory failure ( Atelectasis, pleural effusion, Pulmonary venous congestion and small subsegmental defect on CT), septic shock ( Patient now off pressors) and Toxic metabolic encephalopathy Now with Acute GI bleeding, seen by GI, Scheduled for endoscopy Pt on Protonix BID SQ heparin on Hold Failed swallow evaluation, Pt NPO On TPN Objective - Vital Signs/Intake and Output Vital Signs (last 24 hours): Temp Pulse Resp BP Pulse Ox 97.4 F L 100 H 12 109/57 L 100 02/03/18 08:05 02/03/18 08:05 02/03/18 08:05 02/03/18 08:05 02/03/18 06:00 Intake and Output: 02/03/18 02/03/18 06:59 18:59 Intake Total 240 50 Output Total 450 Balance -210 50 - Medications Medications: Current Medications Hydromorphone HCl (Dilaudid) 0.5 mg IVP Q4H PRN PRN Reason: Pain, severe (8-10) Last Admin: 02/02/18 21:31 Dose: 0.5 mg Dextrose (Dextrose 5% In Water 1000 Ml) 1,000 mls @ 42 mls/hr IV .[id number] [facility] Last Admin: 02/03/18 10:50 Dose: 42 mls/hr Pantoprazole Sodium 80 mg/ (Sodium Chloride) 100 mls @ 10 mls/hr IVPB .Q10H [facility] PRN Reason: 8 MG/HR Last Admin: 02/03/18 10:50 Dose: 10 mls/hr Insulin Aspart (Novolog) 0 unit SC Q6H [facility] PRN Reason: Protocol Last Admin: 02/03/18 12:06 Dose: 4 unit Insulin Glargine (Lantus) 10 unit SC DAILY [facility] Last Admin: 02/03/18 10:53 Dose: 10 units Midodrine (Proamatine) 2.5 mg PO TID [facility] Last Admin: 02/03/18 12:00 Dose: 2.5 mg Multivitamins (Hexavitamin) 1 tab PO DAILY [facility] Last Admin: 02/03/18 10:26 Dose: 1 tab Rosuvastatin Calcium (Crestor) 20 mg PO HS [facility] Last Admin: 02/02/18 21:31 Dose: 20 mg - Labs Labs: 02/03/18 06:18 02/03/18 06:16 PT 17.6 SECONDS (9.7-12.2) H 02/03/18 06:18 INR 1.6 02/03/18 06:18 APTT 36 SECONDS (21-34) H 02/02/18 10:21 - Constitutional Appears: Well, Older Than Stated Age, Confused, Chronically Ill - Head Exam Head Exam: ATRAUMATIC, NORMAL INSPECTION - Eye Exam Eye Exam: EOMI, Normal appearance. absent: Conjunctival injection Pupil Exam: NORMAL ACCOMODATION, PERRL - ENT Exam ENT Exam: Mucous Membranes Moist - Neck Exam Neck Exam: Full ROM. absent: Lymphadenopathy, Tenderness, Thyromegaly - Respiratory Exam Respiratory Exam: Decreased Breath Sounds, Rales, Rhonchi. absent: Accessory Muscle Use, Chest Wall Tenderness, Clear to Ausculation Bilateral, Prolonged Expiratory Phase, Wheezes, Respiratory Distress, Stridor - Cardiovascular Exam Cardiovascular Exam: REGULAR RHYTHM, RRR, +S1, +S2. absent: Bradycardia, Tachycardia, JVD - Rectal Exam Rectal Exam: Black Stool - Extremities Exam Extremities Exam: Full ROM, Pedal Edema. absent: Normal Inspection, Tenderness - Back Exam Back Exam: absent: CVA tenderness (L), CVA tenderness (R) - Neurological Exam Neurological Exam: Alert, Altered, Awake Assessment and Plan (1) Acute respiratory failure with hypoxia Status: Acute (2) Pulmonary embolism Status: Acute (3) Toxic metabolic encephalopathy Status: Acute (4) Sepsis associated hypotension Status: Acute (5) Atrial fibrillation Status: Acute (6) CAD (coronary artery disease) Status: Acute - Assessment and Plan (Free Text) Assessment: Critically ill patient with acute hypoxemic respiratory failure ( Atelectasis, pleural effusion, Pulmonary venous congestion and small subsegmental defect on CT), septic shock ( Patient now off pressors) and Toxic metabolic encephalopathy Now with Acute GI bleeding, seen by GI, Scheduled for endoscopy Continue current management, IV antibiotics, avoid all sedative, medications reviewed. Holding all AC and antiplatelets/ASA in light of acute Gi bleeding Supplemental Oxygen to keep Sat >94% No need for throacocentsis Neuro checks Continue Protonix BID SQ heparin on Hold Failed swallow evaluation, Pt NPO On TPN Aggressive pulmonary toilet Maintain aspiration precautions HOB maintained at 30 degrees GI/DVT PPX BS control, it hypoglycemic, would start IV fluids with D5W I have reviewed all the relevant clinical, laboratory, hemodynamic, radiographic data and medications Discussed with the family in details diagnosis, treatment plans and alternatives. Code status: Full code Total critical care time 38 minutes
[2018-02-03] MEDS ORDERED: Albumin Human 25% (12.5 gm/50 ml) IV ONE (14:02)
[2018-02-03] MEDS ORDERED: Vancomycin 1 gm/NS 200 ml 1 GM/200 ML BAG IVPB STA (14:03)
[2018-02-03 14:36] LABS: BASO % 0.2 % (0.0-2.0); EOS % 0.3 % (0.0-4.0); HEMOGLOBIN 8.6 g/dL (12.0-18.0); LYMPH # 1.4 K/uL (1.0-4.3); LYMPH % 16.8 % (20.0-40.0); MEAN CORPUSCULAR HEMOGLOBIN 29.6 pg (27.0-31.0); MEAN CORPUSCULAR HGB CONC 33.4 g/dL (33.0-37.0); MEAN PLATELET VOLUME 10.1 fL (7.2-11.7); MONO # 0.5 K/uL (0.0-0.8); MONO % 5.5 % (0.0-10.0); NEUT # 6.5 K/uL (1.8-7.0); NEUT % 77.2 % (50.0-75.0); NRBC % 0.1 % (0.0-2.0); RBC 2.91 Mil/uL (4.40-5.90); RED CELL DISTRIBUTION WIDTH 19.8 % (11.5-14.5); WHITE BLOOD COUNT 8.4 K/uL (4.8-10.8)
[2018-02-03 14:39] LABS: MEAN CELL VOLUME 88.8 fL (80.0-94.0)
[2018-02-03] MEDS: Aztreonam 2 GM in Sodium Chloride 0.9% 100 ML IVPB SCH ×2 (15:19→21:00)
--- NOTE | 2018-02-03 17:34 | RAD ---
HISTORY: post endoscopy abdominal pain COMPARISON: No prior. FINDINGS: BOWEL: Normal. No obstruction. No gross free air. BONES: Normal. OTHER FINDINGS: Phleboliths disease at the inferior left pelvis soft tissues. Incidental note is made of dense mitral annular calcification heart. IMPRESSION: Nonobstructive bowel gas pattern.
[2018-02-03 21:23] LABS: BASO # 0.1 K/uL (0.0-0.2); BASO % 0.8 % (0.0-2.0); EOS % 0.6 % (0.0-4.0); HEMOGLOBIN 8.7 g/dL (12.0-18.0); LYMPH # 1.3 K/uL (1.0-4.3); LYMPH % 16.8 % (20.0-40.0); MEAN CORPUSCULAR HEMOGLOBIN 30.3 pg (27.0-31.0); MEAN CORPUSCULAR HGB CONC 33.7 g/dL (33.0-37.0); MEAN PLATELET VOLUME 9.7 fL (7.2-11.7); MONO # 0.4 K/uL (0.0-0.8); MONO % 5.4 % (0.0-10.0); NEUT # 5.8 K/uL (1.8-7.0); NEUT % 76.4 % (50.0-75.0); NRBC % 0.1 % (0.0-2.0); RBC 2.88 Mil/uL (4.40-5.90); RED CELL DISTRIBUTION WIDTH 18.7 % (11.5-14.5); WHITE BLOOD COUNT 7.6 K/uL (4.8-10.8)
[2018-02-03] MEDS: metroNIDAZOLE IV 500 mg/100 ml 500 MG/100 ML BAG IVPB SCH (21:59)
[2018-02-03] MEDS: HYDROmorphone 0.5 mg/0.5 ml ISec IVP PRN (22:41)
[2018-02-04] MEDS: metroNIDAZOLE IV 500 mg/100 ml 500 MG/100 ML BAG IVPB SCH ×3 (05:00→21:21)
[2018-02-04] MEDS: Pantoprazole 80 MG in Sodium Chloride 0.9% 100 ML IVPB SCH ×2 (06:00→16:15)
[2018-02-04] MEDS: Aztreonam 2 GM in Sodium Chloride 0.9% 100 ML IVPB SCH ×3 (06:00→21:22)
[2018-02-04] MEDS: (Novolog) Insulin Aspart, Recombinant 100 u/ml 10 ml vial SC SCH ×3 (06:35→17:44)
[2018-02-04 06:37] LABS: INR 1.5; PROTHROMBIN TIME 15.9 SECONDS (9.7-12.2)
[2018-02-04 06:37] LABS: BASO % 0.3 % (0.0-2.0); EOS # 0.1 K/uL (0.0-0.7); EOS % 1.3 % (0.0-4.0); HEMOGLOBIN 9.3 g/dL (12.0-18.0); LYMPH # 1.1 K/uL (1.0-4.3); LYMPH % 14.9 % (20.0-40.0); MEAN CELL VOLUME 90.8 fL (80.0-94.0); MEAN CORPUSCULAR HEMOGLOBIN 30.8 pg (27.0-31.0); MEAN CORPUSCULAR HGB CONC 33.9 g/dL (33.0-37.0); MEAN PLATELET VOLUME 9.8 fL (7.2-11.7); MONO # 0.4 K/uL (0.0-0.8); MONO % 5.5 % (0.0-10.0); NEUT # 5.9 K/uL (1.8-7.0); NRBC % 0.1 % (0.0-2.0); RBC 3.02 Mil/uL (4.40-5.90); RED CELL DISTRIBUTION WIDTH 18.9 % (11.5-14.5); WHITE BLOOD COUNT 7.6 K/uL (4.8-10.8)
[2018-02-04 06:46] LABS: ALBUMIN 2.3 g/dL (3.5-5.0); ALT/SGPT 26 U/L (21-72); AST/SGOT 18 U/L (17-59); BLOOD UREA NITROGEN 34 mg/dL (9-20); CALCIUM 8.8 mg/dl (8.6-10.4); GFR AFRICAN-AMERICAN > 60; GFR NON-AFRICAN AMERICAN > 60
--- NOTE | 2018-02-04 07:08 | CP.PCM.PN ---
Subjective - Date & Time of Evaluation Date of Evaluation: 02/04/18 Time of Evaluation: 19:00 - Subjective Subjective: pt seen and examined at bedside, he is weak and pt is chronically sick, his condition is some what stable, no shortness of breath, chest pain Objective - Vital Signs/Intake and Output Vital Signs (last 24 hours): Temp Pulse Resp BP Pulse Ox 98.2 F 87 12 121/64 99 02/04/18 04:00 02/04/18 06:51 02/04/18 06:51 02/04/18 06:51 02/04/18 06:51 Intake and Output: 02/04/18 02/04/18 06:59 18:59 Intake Total 908 Output Total 1300 Balance -392 - Medications Medications: Current Medications Hydromorphone HCl (Dilaudid) 0.5 mg IVP Q4H PRN PRN Reason: Pain, severe (8-10) Last Admin: 02/03/18 22:41 Dose: 0.5 mg Dextrose (Dextrose 5% In Water 1000 Ml) 1,000 mls @ 42 mls/hr IV .[id number] [facility] Last Admin: 02/03/18 10:50 Dose: 42 mls/hr Pantoprazole Sodium 80 mg/ (Sodium Chloride) 100 mls @ 10 mls/hr IVPB .Q10H [facility] PRN Reason: 8 MG/HR Last Admin: 02/04/18 06:00 Dose: 10 mls/hr Aztreonam 2 gm/ Sodium (Chloride) 100 mls @ 100 mls/hr IVPB Q8H [facility] PRN Reason: Protocol Last Admin: 02/04/18 06:00 Dose: 100 mls/hr Metronidazole (Flagyl) 500 mg in 100 mls @ 100 mls/hr IVPB Q8 [facility] PRN Reason: Protocol Last Admin: 02/04/18 05:00 Dose: 100 mls/hr Insulin Aspart (Novolog) 0 unit SC Q6H [facility] PRN Reason: Protocol Last Admin: 02/04/18 06:35 Dose: 4 unit Insulin Glargine (Lantus) 10 unit SC DAILY [facility] Last Admin: 02/03/18 10:53 Dose: 10 units Midodrine (Proamatine) 2.5 mg PO TID [facility] Last Admin: 02/03/18 17:12 Dose: 2.5 mg Multivitamins (Hexavitamin) 1 tab PO DAILY [facility] Last Admin: 02/03/18 10:26 Dose: 1 tab Rosuvastatin Calcium (Crestor) 20 mg PO HS [facility] Last Admin: 02/03/18 21:32 Dose: 20 mg - Labs Labs: 02/04/18 06:19 02/04/18 06:19 PT 15.9 SECONDS (9.7-12.2) H 02/04/18 06:22 INR 1.5 02/04/18 06:22 APTT 32 SECONDS (21-34) 02/04/18 06:22 Assessment and Plan (1) Abdominal pain Status: Acute (2) Hypotension (arterial) Status: Acute (3) Pulmonary embolism Status: Acute (4) Upper GI bleed Status: Acute (5) Acute non-ST elevation myocardial infarction (NSTEMI) Status: Acute (6) CHF (congestive heart failure) Status: Acute (7) Diabetes mellitus Status: Acute (8) Diabetic nephropathy Status: Acute (9) Failure to thrive in adult Status: Acute (10) Intraabdominal fluid collection Status: Acute (11) Pulmonary emboli Status: Suspected
--- NOTE | 2018-02-04 07:08 | CP.PCM.PN ---
Subjective - Date & Time of Evaluation Date of Evaluation: 02/03/18 Time of Evaluation: 19:00 - Subjective Subjective: pt seen and examined, improving, he is weak and anemic, s/p endoscopy which shows an ulcer, pt is NAD, afebrile Objective - Vital Signs/Intake and Output Vital Signs (last 24 hours): Temp Pulse Resp BP Pulse Ox 98.2 F 87 12 121/64 99 02/04/18 04:00 02/04/18 06:51 02/04/18 06:51 02/04/18 06:51 02/04/18 06:51 Intake and Output: 02/04/18 02/04/18 06:59 18:59 Intake Total 908 Output Total 1300 Balance -392 - Medications Medications: Current Medications Hydromorphone HCl (Dilaudid) 0.5 mg IVP Q4H PRN PRN Reason: Pain, severe (8-10) Last Admin: 02/03/18 22:41 Dose: 0.5 mg Dextrose (Dextrose 5% In Water 1000 Ml) 1,000 mls @ 42 mls/hr IV .[id number] [facility] Last Admin: 02/03/18 10:50 Dose: 42 mls/hr Pantoprazole Sodium 80 mg/ (Sodium Chloride) 100 mls @ 10 mls/hr IVPB .Q10H [facility] PRN Reason: 8 MG/HR Last Admin: 02/04/18 06:00 Dose: 10 mls/hr Aztreonam 2 gm/ Sodium (Chloride) 100 mls @ 100 mls/hr IVPB Q8H [facility] PRN Reason: Protocol Last Admin: 02/04/18 06:00 Dose: 100 mls/hr Metronidazole (Flagyl) 500 mg in 100 mls @ 100 mls/hr IVPB Q8 [facility] PRN Reason: Protocol Last Admin: 02/04/18 05:00 Dose: 100 mls/hr Insulin Aspart (Novolog) 0 unit SC Q6H [facility] PRN Reason: Protocol Last Admin: 02/04/18 06:35 Dose: 4 unit Insulin Glargine (Lantus) 10 unit SC DAILY [facility] Last Admin: 02/03/18 10:53 Dose: 10 units Midodrine (Proamatine) 2.5 mg PO TID [facility] Last Admin: 02/03/18 17:12 Dose: 2.5 mg Multivitamins (Hexavitamin) 1 tab PO DAILY [facility] Last Admin: 02/03/18 10:26 Dose: 1 tab Rosuvastatin Calcium (Crestor) 20 mg PO HS [facility] Last Admin: 02/03/18 21:32 Dose: 20 mg - Labs Labs: 02/04/18 06:19 02/04/18 06:19 PT 15.9 SECONDS (9.7-12.2) H 02/04/18 06:22 INR 1.5 02/04/18 06:22 APTT 32 SECONDS (21-34) 02/04/18 06:22 - Constitutional Appears: No Acute Distress, Chronically Ill - Head Exam Head Exam: ATRAUMATIC, NORMAL INSPECTION, NORMOCEPHALIC - Eye Exam Eye Exam: EOMI, Normal appearance, PERRL Pupil Exam: NORMAL ACCOMODATION, PERRL - Respiratory Exam Respiratory Exam: Decreased Breath Sounds, Rhonchi, Wheezes - Cardiovascular Exam Cardiovascular Exam: REGULAR RHYTHM, +S1, +S2. absent: Murmur - GI/Abdominal Exam GI & Abdominal Exam: Soft, Normal Bowel Sounds. absent: Tenderness - Rectal Exam Rectal Exam: Deferred Assessment and Plan (1) Abdominal pain Status: Acute (2) Hypotension (arterial) Status: Acute (3) Pulmonary embolism Status: Acute (4) Upper GI bleed Status: Acute (5) Acute non-ST elevation myocardial infarction (NSTEMI) Status: Acute (6) CHF (congestive heart failure) Status: Acute (7) Diabetes mellitus Status: Acute (8) Diabetic nephropathy Status: Acute (9) Failure to thrive in adult Status: Acute (10) Intraabdominal fluid collection Status: Acute (11) Pulmonary emboli Status: Suspected
[2018-02-04] MEDS: Magnesium Sulfate 1 gm in D5W 1 GM/100 ML BAG IVPB SCH ×2 (08:40→09:05)
[2018-02-04] MEDS: Potassium Chloride 20 mEq/15 ml LIQ UD PO SCH ×2 (08:41→13:44)
[2018-02-04] MEDS: (Lantus) Insulin Glargine, Recombinant SC SCH (09:18)
[2018-02-04] MEDS: Multiple Vitamins Tab PO SCH (09:18)
--- NOTE | 2018-02-04 11:28 | CP.PCM.PN ---
Subjective - Date & Time of Evaluation Date of Evaluation: 02/04/18 Time of Evaluation: 08:00 - Subjective Subjective: Patient seen and examined at bedside. Patient denies any abdominal pain, denies any chest pain. HR controlled, no events overnight Objective - Vital Signs/Intake and Output Vital Signs (last 24 hours): Temp Pulse Resp BP Pulse Ox 98.5 F 83 14 126/66 100 02/04/18 08:00 02/04/18 09:51 02/04/18 09:51 02/04/18 09:51 02/04/18 09:51 Intake and Output: 02/04/18 02/04/18 06:59 18:59 Intake Total 908 364 Output Total 1300 0 Balance -392 364 - Medications Medications: Current Medications Hydromorphone HCl (Dilaudid) 0.5 mg IVP Q4H PRN PRN Reason: Pain, severe (8-10) Last Admin: 02/03/18 22:41 Dose: 0.5 mg Dextrose (Dextrose 5% In Water 1000 Ml) 1,000 mls @ 42 mls/hr IV .[id number] [facility] Last Admin: 02/04/18 08:21 Dose: Not Given Pantoprazole Sodium 80 mg/ (Sodium Chloride) 100 mls @ 10 mls/hr IVPB .Q10H [facility] PRN Reason: 8 MG/HR Last Admin: 02/04/18 06:00 Dose: 10 mls/hr Aztreonam 2 gm/ Sodium (Chloride) 100 mls @ 100 mls/hr IVPB Q8H [facility] PRN Reason: Protocol Last Admin: 02/04/18 06:00 Dose: 100 mls/hr Metronidazole (Flagyl) 500 mg in 100 mls @ 100 mls/hr IVPB Q8 [facility] PRN Reason: Protocol Last Admin: 02/04/18 05:00 Dose: 100 mls/hr Potassium Chloride (Potassium Chloride 10 Meq/100 Ml) 10 meq in 100 mls @ 100 mls/hr IVPB Q1H [facility] Stop: 02/04/18 11:29 Last Admin: 02/04/18 11:00 Dose: 100 mls/hr Insulin Aspart (Novolog) 0 unit SC Q6H [facility] PRN Reason: Protocol Last Admin: 02/04/18 06:35 Dose: 4 unit Insulin Glargine (Lantus) 10 unit SC DAILY [facility] Last Admin: 02/04/18 09:18 Dose: 10 units Midodrine (Proamatine) 2.5 mg PO TID [facility] Last Admin: 02/04/18 09:20 Dose: 2.5 mg Multivitamins (Hexavitamin) 1 tab PO DAILY [facility] Last Admin: 02/04/18 09:18 Dose: 1 tab Potassium Chloride (Potassium Chloride Oral Soln) 40 meq PO Q6H [facility] Stop: 02/04/18 14:31 Last Admin: 02/04/18 08:41 Dose: 40 meq Rosuvastatin Calcium (Crestor) 20 mg PO HS [facility] Last Admin: 02/03/18 21:32 Dose: 20 mg - Labs Labs: 02/04/18 06:19 02/04/18 06:19 PT 15.9 SECONDS (9.7-12.2) H 02/04/18 06:22 INR 1.5 02/04/18 06:22 APTT 32 SECONDS (21-34) 02/04/18 06:22 - Constitutional Appears: Well, Non-toxic, No Acute Distress - Head Exam Head Exam: NORMAL INSPECTION - Eye Exam Eye Exam: Normal appearance - ENT Exam ENT Exam: Mucous Membranes Moist - Cardiovascular Exam Cardiovascular Exam: Irregular Rhythm, +S1, +S2, Murmur - GI/Abdominal Exam GI & Abdominal Exam: Soft, Normal Bowel Sounds. absent: Firm, Guarding, Rigid, Tenderness - Rectal Exam Rectal Exam: Black Stool - Extremities Exam Extremities Exam: Pedal Edema - Neurological Exam Neurological Exam: Alert, Awake Assessment and Plan - Assessment and Plan (Free Text) Assessment: 77 y/o amle with pmx of DM, PVD, h/o duodenal perforation s/p surgical correction presents to [facility] with abdominal pain and dx with incidental finding of pulmonary embolism. -Abdominal pain: suspect 2nd Upper Gi bleed, protoinx ggt, s/p endoscopy confirming Duodenal bleeding, monitor serial cbc -Sepsis: empirically rx with abx, lactic resolved, will de-escalate abx if no source found -PE: Oxygen requirement low, nasal canula, LE dopplers neg, will benefit from IVC filter placement as antocoagulation is contraindicated in light of GI bleeding -NSTEMI: likely type II [place], hold asa and IV heparin (2nd Gi bleed), rate control with lopressor as BP tolerates /(dig if BP low) -Anemia: s/p 2 units of PRBC infusion, monitor serial cbc to keep hb/hct > 8/24 -on clear liquid as per GI -DVT ppx SCD -PUD ppx protonix -check and replace electrolytes Patient remains hemodynamically stable. f/u cbc t 9 PM no moyer, no central line -offer IVC filter placement
--- NOTE | 2018-02-04 11:47 | CP.PCM.PN ---
Subjective - Date & Time of Evaluation Date of Evaluation: 02/04/18 Time of Evaluation: 11:44 - Subjective Subjective: CC: follow up GI bleed Hemodynamically stable. No further melenic BMs. Hgb stable In ICU On PPI continuous infusion for bleeding Duodenal ulcer Objective - Vital Signs/Intake and Output Vital Signs (last 24 hours): Temp Pulse Resp BP Pulse Ox 98.5 F 88 13 130/69 100 02/04/18 08:00 02/04/18 11:21 02/04/18 11:21 02/04/18 11:21 02/04/18 11:21 Intake and Output: 02/04/18 02/04/18 06:59 18:59 Intake Total 908 826 Output Total 1300 0 Balance -392 826 - Medications Medications: Current Medications Hydromorphone HCl (Dilaudid) 0.5 mg IVP Q4H PRN PRN Reason: Pain, severe (8-10) Last Admin: 02/03/18 22:41 Dose: 0.5 mg Dextrose (Dextrose 5% In Water 1000 Ml) 1,000 mls @ 42 mls/hr IV .[id number] [facility] Last Admin: 02/04/18 08:21 Dose: Not Given Pantoprazole Sodium 80 mg/ (Sodium Chloride) 100 mls @ 10 mls/hr IVPB .Q10H [facility] PRN Reason: 8 MG/HR Last Admin: 02/04/18 06:00 Dose: 10 mls/hr Aztreonam 2 gm/ Sodium (Chloride) 100 mls @ 100 mls/hr IVPB Q8H [facility] PRN Reason: Protocol Last Admin: 02/04/18 06:00 Dose: 100 mls/hr Metronidazole (Flagyl) 500 mg in 100 mls @ 100 mls/hr IVPB Q8 [facility] PRN Reason: Protocol Last Admin: 02/04/18 05:00 Dose: 100 mls/hr Insulin Aspart (Novolog) 0 unit SC Q6H [facility] PRN Reason: Protocol Last Admin: 02/04/18 06:35 Dose: 4 unit Insulin Glargine (Lantus) 10 unit SC DAILY [facility] Last Admin: 02/04/18 09:18 Dose: 10 units Midodrine (Proamatine) 2.5 mg PO TID [facility] Last Admin: 02/04/18 09:20 Dose: 2.5 mg Multivitamins (Hexavitamin) 1 tab PO DAILY [facility] Last Admin: 02/04/18 09:18 Dose: 1 tab Potassium Chloride (Potassium Chloride Oral Soln) 40 meq PO Q6H [facility] Stop: 02/04/18 14:31 Last Admin: 02/04/18 08:41 Dose: 40 meq Rosuvastatin Calcium (Crestor) 20 mg PO HS [facility] Last Admin: 02/03/18 21:32 Dose: 20 mg - Labs Labs: 02/04/18 06:19 02/04/18 06:19 PT 15.9 SECONDS (9.7-12.2) H 02/04/18 06:22 INR 1.5 02/04/18 06:22 APTT 32 SECONDS (21-34) 02/04/18 06:22 - Constitutional Appears: Cachectic, Chronically Ill - Head Exam Head Exam: NORMOCEPHALIC - Eye Exam Eye Exam: absent: Scleral icterus - Neck Exam Neck Exam: Normal Inspection - Respiratory Exam Respiratory Exam: NORMAL BREATHING PATTERN - Cardiovascular Exam Cardiovascular Exam: REGULAR RHYTHM - GI/Abdominal Exam GI & Abdominal Exam: Soft. absent: Guarding, Tenderness, Mass - Rectal Exam Rectal Exam: Deferred - Neurological Exam Neurological Exam: Alert, Awake - Psychiatric Exam Psychiatric exam: Flat Affect - Skin Skin Exam: Pallor. absent: Warm Assessment and Plan (1) Abdominal pain Assessment & Plan: Due to DU. Better. Status: Acute (2) Pulmonary embolism Assessment & Plan: Minor. Anticoagulation presently contraindicated due to recent life threatening GI bleed. If embolism is a concern recommend IVC filter Status: Acute (3) Upper GI bleed Assessment & Plan: S/P EGD yesterday- Large DU with blood clot Continue PPI continuous infusion Advance diet as cautiously, tolerated Status: Acute (4) Acute non-ST elevation myocardial infarction (NSTEMI) Assessment & Plan: management by ICU team Status: Acute (5) Perforated abdominal viscus Assessment & Plan: Duodenal patch last month Status: Acute
[2018-02-04 21:28] LABS: BASO % 0.4 % (0.0-2.0); EOS # 0.1 K/uL (0.0-0.7); EOS % 1.2 % (0.0-4.0); HEMOGLOBIN 9.4 g/dL (12.0-18.0); LYMPH # 1.3 K/uL (1.0-4.3); LYMPH % 17.1 % (20.0-40.0); MEAN CELL VOLUME 89.6 fL (80.0-94.0); MEAN CORPUSCULAR HEMOGLOBIN 30.1 pg (27.0-31.0); MEAN CORPUSCULAR HGB CONC 33.6 g/dL (33.0-37.0); MEAN PLATELET VOLUME 9.7 fL (7.2-11.7); MONO # 0.4 K/uL (0.0-0.8); MONO % 5.8 % (0.0-10.0); NEUT # 5.6 K/uL (1.8-7.0); NEUT % 75.5 % (50.0-75.0); RBC 3.12 Mil/uL (4.40-5.90); RED CELL DISTRIBUTION WIDTH 19.2 % (11.5-14.5); WHITE BLOOD COUNT 7.4 K/uL (4.8-10.8)
--- NOTE | 2018-02-04 21:44 | CP.PCM.PN ---
Subjective - Date & Time of Evaluation Date of Evaluation: 02/04/18 Time of Evaluation: 21:44 - Subjective Subjective: Pulmonary Follow up Covering Dr. Faye The Patient was seen and examined at the bedside, Medical records reviewed, and management issues were discussed and formulated with the house staff. Events reviewed Patient confused, intermittently follow commands Patient complains of generalized weakness. Denies any fevers, chills, SOB, chest pain or abdominal pain. Afebrile Underwent endoscopy Pt on Protonix BID ASA/AC on Hold On TPN Objective - Vital Signs/Intake and Output Vital Signs (last 24 hours): Temp Pulse Resp BP Pulse Ox 97.5 F L 76 15 129/67 96 02/04/18 20:00 02/04/18 20:36 02/04/18 20:36 02/04/18 20:36 02/04/18 20:36 Intake and Output: 02/04/18 02/05/18 18:59 06:59 Intake Total 1456 104 Output Total 650 0 Balance 806 104 - Medications Medications: Current Medications Hydromorphone HCl (Dilaudid) 0.5 mg IVP Q4H PRN PRN Reason: Pain, severe (8-10) Last Admin: 02/03/18 22:41 Dose: 0.5 mg Dextrose (Dextrose 5% In Water 1000 Ml) 1,000 mls @ 42 mls/hr IV .[id number] [facility] Last Admin: 02/04/18 17:17 Dose: 42 mls/hr Pantoprazole Sodium 80 mg/ (Sodium Chloride) 100 mls @ 10 mls/hr IVPB .Q10H [facility] PRN Reason: 8 MG/HR Last Admin: 02/04/18 16:15 Dose: 10 mls/hr Aztreonam 2 gm/ Sodium (Chloride) 100 mls @ 100 mls/hr IVPB Q8H [facility] PRN Reason: Protocol Last Admin: 02/04/18 21:22 Dose: 100 mls/hr Metronidazole (Flagyl) 500 mg in 100 mls @ 100 mls/hr IVPB Q8 [facility] PRN Reason: Protocol Last Admin: 02/04/18 21:21 Dose: 100 mls/hr Insulin Aspart (Novolog) 0 unit SC Q6H [facility] PRN Reason: Protocol Last Admin: 02/04/18 17:44 Dose: 4 unit Insulin Glargine (Lantus) 10 unit SC DAILY [facility] Last Admin: 02/04/18 09:18 Dose: 10 units Midodrine (Proamatine) 2.5 mg PO TID [facility] Last Admin: 02/04/18 17:15 Dose: 2.5 mg Multivitamins (Hexavitamin) 1 tab PO DAILY [facility] Last Admin: 02/04/18 09:18 Dose: 1 tab Rosuvastatin Calcium (Crestor) 20 mg PO HS [facility] Last Admin: 02/04/18 21:21 Dose: 20 mg - Labs Labs: 02/04/18 21:19 02/04/18 06:19 PT 15.9 SECONDS (9.7-12.2) H 02/04/18 06:22 INR 1.5 02/04/18 06:22 APTT 32 SECONDS (21-34) 02/04/18 06:22 - Head Exam Head Exam: ATRAUMATIC, NORMAL INSPECTION, NORMOCEPHALIC - Eye Exam Pupil Exam: NORMAL ACCOMODATION, PERRL - ENT Exam ENT Exam: Mucous Membranes Moist - Neck Exam Neck Exam: Full ROM, Normal Inspection - Respiratory Exam Respiratory Exam: Decreased Breath Sounds, Rales, Rhonchi. absent: Accessory Muscle Use, Chest Wall Tenderness, Wheezes, Stridor - Cardiovascular Exam Cardiovascular Exam: REGULAR RHYTHM, RRR, +S1, +S2. absent: JVD, Murmur - GI/Abdominal Exam GI & Abdominal Exam: Distended, Normal Bowel Sounds. absent: Firm, Guarding, Rigid, Soft - Extremities Exam Extremities Exam: Full ROM, Normal Capillary Refill, Pedal Edema. absent: Calf Tenderness, Joint Swelling, Normal Inspection Assessment and Plan (1) Respiratory insufficiency Assessment & Plan: Acute hypoxemic respiratory failure ( Atelectasis, pleural effusion, Pulmonary venous congestion and small subsegmental defect on CT) No indication for full Anticoagulation due to Improved Oxygenation, only a small subsegmental defect on CT, GI bleeding and Anemia Status: Acute (2) Pulmonary embolism Status: Acute (3) Upper GI bleed Status: Acute (4) Sepsis associated hypotension Status: Acute
--- NOTE | 2018-02-04 23:23 | CP.PCM.PN ---
Subjective - Date & Time of Evaluation Date of Evaluation: 02/04/18 Time of Evaluation: 20:30 - Subjective Subjective: Patient seen and evaluated denies chest pain and dyspnea C/O Abdominal pain Objective - Vital Signs/Intake and Output Vital Signs (last 24 hours): Temp Pulse Resp BP Pulse Ox 97.5 F L 74 27 H 127/67 96 02/04/18 20:00 02/04/18 22:00 02/04/18 22:00 02/04/18 22:01 02/04/18 22:00 Intake and Output: 02/04/18 02/05/18 18:59 06:59 Intake Total 1456 324 Output Total 650 0 Balance 806 324 - Medications Medications: Current Medications Hydromorphone HCl (Dilaudid) 0.5 mg IVP Q4H PRN PRN Reason: Pain, severe (8-10) Last Admin: 02/03/18 22:41 Dose: 0.5 mg Dextrose (Dextrose 5% In Water 1000 Ml) 1,000 mls @ 42 mls/hr IV .[id number] [facility] Last Admin: 02/04/18 17:17 Dose: 42 mls/hr Pantoprazole Sodium 80 mg/ (Sodium Chloride) 100 mls @ 10 mls/hr IVPB .Q10H [facility] PRN Reason: 8 MG/HR Last Admin: 02/04/18 16:15 Dose: 10 mls/hr Aztreonam 2 gm/ Sodium (Chloride) 100 mls @ 100 mls/hr IVPB Q8H [facility] PRN Reason: Protocol Last Admin: 02/04/18 21:22 Dose: 100 mls/hr Metronidazole (Flagyl) 500 mg in 100 mls @ 100 mls/hr IVPB Q8 [facility] PRN Reason: Protocol Last Admin: 02/04/18 21:21 Dose: 100 mls/hr Insulin Aspart (Novolog) 0 unit SC Q6H [facility] PRN Reason: Protocol Last Admin: 02/04/18 17:44 Dose: 4 unit Insulin Glargine (Lantus) 10 unit SC DAILY [facility] Last Admin: 02/04/18 09:18 Dose: 10 units Midodrine (Proamatine) 2.5 mg PO TID [facility] Last Admin: 02/04/18 17:15 Dose: 2.5 mg Multivitamins (Hexavitamin) 1 tab PO DAILY [facility] Last Admin: 02/04/18 09:18 Dose: 1 tab Rosuvastatin Calcium (Crestor) 20 mg PO HS [facility] Last Admin: 02/04/18 21:21 Dose: 20 mg - Labs Labs: 02/04/18 21:19 02/04/18 06:19 PT 15.9 SECONDS (9.7-12.2) H 02/04/18 06:22 INR 1.5 02/04/18 06:22 APTT 32 SECONDS (21-34) 02/04/18 06:22 - Constitutional Appears: Chronically Ill - Head Exam Head Exam: ATRAUMATIC - Eye Exam Eye Exam: EOMI Pupil Exam: NORMAL ACCOMODATION - ENT Exam ENT Exam: Mucous Membranes Moist - Neck Exam Neck Exam: Full ROM - Respiratory Exam Respiratory Exam: Clear to Ausculation Bilateral - Cardiovascular Exam Cardiovascular Exam: +S1, +S2 - GI/Abdominal Exam GI & Abdominal Exam: Soft - Extremities Exam Extremities Exam: Full ROM - Neurological Exam Neurological Exam: Alert - Skin Skin Exam: Warm Assessment and Plan - Assessment and Plan (Free Text) Assessment: Assessment and Plan (1) CAD (coronary artery disease) Assessment & Plan: not a candidate for CABG medical therapy Status: Acute (2) Atrial fibrillation Assessment & Plan: tachcyardic. will give digoxin now. not a candidate for anticoagulation due to bleeding Status: Acute (3) Upper GI bleed Assessment & Plan: requires endoscopy. this is a low riks procedure. patient has multiple comorbiidiites which increases his risk for complications, however this is a necessary procedure. will give digoxin now to assist with rate control and proceed with endoscopy Status: Acute
[2018-02-05] MEDS: (Novolog) Insulin Aspart, Recombinant 100 u/ml 10 ml vial SC SCH ×4 (00:59→17:18)
[2018-02-05] MEDS: Pantoprazole 80 MG in Sodium Chloride 0.9% 100 ML IVPB SCH ×2 (02:50→13:16)
[2018-02-05] MEDS: metroNIDAZOLE IV 500 mg/100 ml 500 MG/100 ML BAG IVPB SCH ×3 (05:02→22:07)
[2018-02-05] MEDS: Aztreonam 2 GM in Sodium Chloride 0.9% 100 ML IVPB SCH ×3 (05:15→22:07)
[2018-02-05 06:33] LABS: BASO % 0.2 % (0.0-2.0); EOS # 0.1 K/uL (0.0-0.7); EOS % 1.9 % (0.0-4.0); LYMPH # 1.3 K/uL (1.0-4.3); LYMPH % 16.7 % (20.0-40.0); MEAN CELL VOLUME 89.7 fL (80.0-94.0); MEAN CORPUSCULAR HEMOGLOBIN 30.7 pg (27.0-31.0); MEAN CORPUSCULAR HGB CONC 34.2 g/dL (33.0-37.0); MONO # 0.4 K/uL (0.0-0.8); MONO % 5.3 % (0.0-10.0); NEUT # 5.9 K/uL (1.8-7.0); NEUT % 75.9 % (50.0-75.0); NRBC % 0.2 % (0.0-2.0); RBC 2.94 Mil/uL (4.40-5.90); WHITE BLOOD COUNT 7.8 K/uL (4.8-10.8)
[2018-02-05 06:59] LABS: ALB/GLOB RATIO 0.9 (1.0-2.1); ALBUMIN 2.2 g/dL (3.5-5.0); ALT/SGPT 30 U/L (21-72); AST/SGOT 22 U/L (17-59); BLOOD UREA NITROGEN 24 mg/dL (9-20); CALCIUM 9.1 mg/dl (8.6-10.4); GFR AFRICAN-AMERICAN > 60; GFR NON-AFRICAN AMERICAN > 60
[2018-02-05] MEDS ORDERED: Potassium Phosphate 15 MMOLE in Dextrose 5% In Water 250 ML IVPB ONE (07:29)
[2018-02-05] MEDS ORDERED: Potassium Phosphate 15 MMOLE in Sodium Chloride 0.9% 250 ML IVPB ONE (08:30)
[2018-02-05] MEDS: (Lantus) Insulin Glargine, Recombinant SC SCH (09:27)
[2018-02-05] MEDS: Multiple Vitamins Tab PO SCH (09:27)
--- NOTE | 2018-02-05 10:11 | CP.PCM.PN ---
Subjective - Date & Time of Evaluation Date of Evaluation: 02/05/18 Time of Evaluation: 10:09 - Subjective Subjective: CC: GI bleed No BMs. Hgb stable Poor appetite In ICU. On PPI drip Objective - Vital Signs/Intake and Output Vital Signs (last 24 hours): Temp Pulse Resp BP Pulse Ox 98.9 F 90 19 132/73 94 L 02/05/18 08:00 02/05/18 08:01 02/05/18 08:01 02/05/18 08:01 02/05/18 08:01 Intake and Output: 02/05/18 02/05/18 06:59 18:59 Intake Total 856 182 Output Total 200 0 Balance 656 182 - Medications Medications: Current Medications Hydromorphone HCl (Dilaudid) 0.5 mg IVP Q4H PRN PRN Reason: Pain, severe (8-10) Last Admin: 02/03/18 22:41 Dose: 0.5 mg Pantoprazole Sodium 80 mg/ (Sodium Chloride) 100 mls @ 10 mls/hr IVPB .Q10H [facility] PRN Reason: 8 MG/HR Last Admin: 02/05/18 02:50 Dose: 10 mls/hr Aztreonam 2 gm/ Sodium (Chloride) 100 mls @ 100 mls/hr IVPB Q8H [facility] PRN Reason: Protocol Last Admin: 02/05/18 05:15 Dose: 100 mls/hr Metronidazole (Flagyl) 500 mg in 100 mls @ 100 mls/hr IVPB Q8 [facility] PRN Reason: Protocol Last Admin: 02/05/18 05:02 Dose: 100 mls/hr Potassium Phosphate 15 mmole/ (Sodium Chloride) 255 mls @ 42.5 mls/hr IVPB ONCE ONE Stop: 02/05/18 14:29 Last Admin: 02/05/18 09:27 Dose: 42.5 mls/hr Multivitamins/Vitamin C 10 ml/Insulin Human Regular 10 unit / Amino Acids 1, 010.1 mls @ 42 mls/hr IV .Q24H [facility] Stop: 02/06/18 17:59 Insulin Aspart (Novolog) 0 unit SC Q6H [facility] PRN Reason: Protocol Last Admin: 02/05/18 06:22 Dose: Not Given Insulin Glargine (Lantus) 10 unit SC DAILY [facility] Last Admin: 02/05/18 09:27 Dose: 10 units Midodrine (Proamatine) 2.5 mg PO TID [facility] Last Admin: 02/05/18 09:27 Dose: 2.5 mg Multivitamins (Hexavitamin) 1 tab PO DAILY [facility] Last Admin: 02/05/18 09:27 Dose: 1 tab - Labs Labs: 02/05/18 06:26 02/05/18 06:26 PT 15.9 SECONDS (9.7-12.2) H 02/04/18 06:22 INR 1.5 02/04/18 06:22 APTT 32 SECONDS (21-34) 02/04/18 06:22 - Constitutional Appears: Older Than Stated Age, Cachectic, Chronically Ill - Eye Exam Eye Exam: absent: Scleral icterus - Respiratory Exam Respiratory Exam: Decreased Breath Sounds - Cardiovascular Exam Cardiovascular Exam: REGULAR RHYTHM - GI/Abdominal Exam GI & Abdominal Exam: Soft. absent: Tenderness - Neurological Exam Neurological Exam: Awake Assessment and Plan (1) Abdominal pain Assessment & Plan: Resolved Status: Acute (2) Pulmonary embolism Assessment & Plan: Management per medical team Status: Acute (3) Upper GI bleed Assessment & Plan: Stable Continue PPI drip today then change to bolus Status: Acute (4) Acute non-ST elevation myocardial infarction (NSTEMI) Status: Acute (5) Perforated abdominal viscus Status: Acute
--- NOTE | 2018-02-05 13:11 | CP.CCUPN ---
CCU Subjective - Physician Review Events Since Last Encounter (Free Text): 02/05/18 13:08 Patient is currently sitting up in the chair. Mild shortness of breath noted. Patient is eating liquid diet, soft diet. Tolerating well. No abdominal pain. No chest pain. Vital signs otherwise stable. Critical Care Time Spent (in minutes): 45 CCU Objective - Vital Signs / Intake & Output Vital Signs (Last 4 hours): Vital Signs Temp Pulse Resp BP Pulse Ox 02/05/18 13:02 117/72 02/05/18 13:01 98 H 13 95 02/05/18 13:00 105 H 17 94 L 02/05/18 12:02 97 H 18 133/74 95 02/05/18 12:00 98.5 F 96 H 15 95 02/05/18 11:01 100 H 14 130/73 94 L 02/05/18 11:00 103 H 19 93 L 02/05/18 10:02 96 H 15 129/71 95 02/05/18 10:00 99 H 14 96 Intake and Output (Last 8hrs): Intake & Output 02/04/18 02/05/18 02/05/18 22:59 06:59 14:59 Intake Total 690 532 442 Output Total 650 200 300 Balance 40 332 142 Weight 128 lb 9.6 oz Intake: Intake, IV Amount 590 532 322 Right Distal Port PICC 510 452 252 Right Proximal Port PICC 80 80 70 Oral 100 120 Output: Urine 650 200 300 Urine, Voided 650 200 300 Emesis 0 0 Other: # Bowel Movements 0 0 - Physical Exam Narrative Physical Exam (Free Text): 02/05/18 13:11 On examination: Chest minimal expiratory wheezing noted Regular heart sound Abdomen minimal tenderness noted. But nonspecific. Edema 1+ noted. [employer] alert awake oriented 3 no function illogical deficit Head: Positive for: Atraumatic, Normocephalic Pupils: Positive for: PERRL Mouth: Positive for: Moist Mucous Membranes Neck: Positive for: Normal Range of Motion Cardiovascular: Positive for: Regular Rate and Rhythm, Normal S1, S2 Abdomen: Positive for: Normal Bowel Sounds, Other (midline surgical Scar). Negative for: Tenderness, Peritoneal Signs Upper Extremity: Positive for: Edema Lower Extremity: Positive for: Edema - Medications Active Medications: Active Medications Generic Name Dose Route Start Last Admin Trade Name Freq PRN Reason Stop Dose Admin Hydromorphone HCl 0.5 mg 01/30/18 09:10 02/03/18 22:41 Dilaudid IVP 0.5 mg Q4H PRN Administration Pain, severe (8-10) Pantoprazole Sodium 80 mg/ 100 mls @ 10 mls/hr 02/03/18 10:30 02/05/18 02:50 Sodium Chloride IVPB 10 mls/hr .Q10H [facility] Administration 8 MG/HR Aztreonam 2 gm/ Sodium 100 mls @ 100 mls/hr 02/03/18 14:15 02/05/18 05:15 Chloride IVPB 100 mls/hr Q8H [facility] Administration Protocol Metronidazole 500 mg in 100 mls @ 100 mls/hr 02/03/18 22:00 02/05/18 05:02 Flagyl IVPB 100 mls/hr Q8 [facility] Administration Protocol Potassium Phosphate 15 mmole/ 255 mls @ 42.5 mls/hr 02/05/18 08:30 02/05/18 09:27 Sodium Chloride IVPB 02/05/18 14:29 42.5 mls/hr ONCE ONE Administration Multivitamins/Vitamin C 10 ml/ 1,010.1 mls @ 42 mls/hr 02/05/18 18:00 Insulin Human Regular 10 unit IV 02/06/18 17:59 / Amino Acids .Q24H [facility] Insulin Aspart 0 unit 02/02/18 12:00 02/05/18 11:38 Novolog SC 3 unit Q6H [facility] Administration Protocol Insulin Glargine 10 unit 02/02/18 10:00 02/05/18 09:27 Lantus SC 10 units DAILY [facility] Administration Midodrine 2.5 mg 02/02/18 10:00 02/05/18 09:27 Proamatine PO 2.5 mg TID [facility] Administration Multivitamins 1 tab 01/27/18 10:00 02/05/18 09:27 Hexavitamin PO 1 tab DAILY [facility] Administration - Patient Studies Lab Studies: Lab Studies 02/05/18 02/05/18 02/05/18 Range/Units 11:27 06:26 06:26 WBC 7.8 (4.8-10.8) K/uL RBC 2.94 L (4.40-5.90) Mil/uL Hgb 9.0 L (12.0-18.0) g/dL Hct 26.4 L (35.0-51.0) % MCV 89.7 (80.0-94.0) fL MCH 30.7 (27.0-31.0) pg MCHC 34.2 (33.0-37.0) g/dL RDW 19.0 H (11.5-14.5) % Plt Count 111 L (130-400) K/uL MPV 10.0 (7.2-11.7) fL Neut % (Auto) 75.9 H (50.0-75.0) % Lymph % (Auto) 16.7 L (20.0-40.0) % [place] % (Auto) 5.3 (0.0-10.0) % Eos % (Auto) 1.9 (0.0-4.0) % Baso % (Auto) 0.2 (0.0-2.0) % Neut # (Auto) 5.9 (1.8-7.0) K/uL Lymph # (Auto) 1.3 (1.0-4.3) K/uL [place] # (Auto) 0.4 (0.0-0.8) K/uL Eos # (Auto) 0.1 (0.0-0.7) K/uL Baso # (Auto) 0.0 (0.0-0.2) K/uL Sodium 149 H (132-148) mmol/L Potassium 3.8 (3.6-5.2) mmol/L Chloride 119 H (98-107) mmol/L Carbon Dioxide 24 (22-30) mmol/L Anion Gap 10 (10-20) BUN 24 H (9-20) mg/dL Creatinine 0.8 (0.8-1.5) mg/dL Est GFR ( Amer) > 60 Est GFR (Non-Af Amer) > 60 POC Glucose (mg/dL) 240 H (65-110) mg/dL Random Glucose 158 H (75-110) mg/dL Calcium 9.1 (8.6-10.4) mg/dl Phosphorus 1.7 L (2.5-4.5) mg/dL Magnesium 1.6 (1.6-2.3) mg/dL Total Bilirubin 0.6 (0.2-1.3) mg/dL AST 22 (17-59) U/L ALT 30 (21-72) U/L Alkaline Phosphatase 53 (38-126) U/L Total Protein 4.7 L (6.3-8.3) g/dL Albumin 2.2 L (3.5-5.0) g/dL Globulin 2.5 (2.2-3.9) gm/dL Albumin/Globulin Ratio 0.9 L (1.0-2.1) Toxicology Panel 02/05/18 02/04/18 02/04/18 Range/Units 05:56 23:44 21:19 WBC 7.4 (4.8-10.8) K/uL RBC 3.12 L (4.40-5.90) Mil/uL Hgb 9.4 L (12.0-18.0) g/dL Hct 27.9 L (35.0-51.0) % MCV 89.6 (80.0-94.0) fL MCH 30.1 (27.0-31.0) pg MCHC 33.6 (33.0-37.0) g/dL RDW 19.2 H (11.5-14.5) % Plt Count 116 L (130-400) K/uL MPV 9.7 (7.2-11.7) fL Neut % (Auto) 75.5 H (50.0-75.0) % Lymph % (Auto) 17.1 L (20.0-40.0) % [place] % (Auto) 5.8 (0.0-10.0) % Eos % (Auto) 1.2 (0.0-4.0) % Baso % (Auto) 0.4 (0.0-2.0) % Neut # (Auto) 5.6 (1.8-7.0) K/uL Lymph # (Auto) 1.3 (1.0-4.3) K/uL [place] # (Auto) 0.4 (0.0-0.8) K/uL Eos # (Auto) 0.1 (0.0-0.7) K/uL Baso # (Auto) 0.0 (0.0-0.2) K/uL Sodium (132-148) mmol/L Potassium (3.6-5.2) mmol/L Chloride (98-107) mmol/L Carbon Dioxide (22-30) mmol/L Anion Gap (10-20) BUN (9-20) mg/dL Creatinine (0.8-1.5) mg/dL Est GFR ( Amer) Est GFR (Non-Af Amer) POC Glucose (mg/dL) 186 H 293 H (65-110) mg/dL Random Glucose (75-110) mg/dL Calcium (8.6-10.4) mg/dl Phosphorus (2.5-4.5) mg/dL Magnesium (1.6-2.3) mg/dL Total Bilirubin (0.2-1.3) mg/dL AST (17-59) U/L ALT (21-72) U/L Alkaline Phosphatase (38-126) U/L Total Protein (6.3-8.3) g/dL Albumin (3.5-5.0) g/dL Globulin (2.2-3.9) gm/dL Albumin/Globulin Ratio (1.0-2.1) Toxicology Panel 02/04/18 01/27/18 Range/Units 17:41 17:10 WBC (4.8-10.8) K/uL RBC (4.40-5.90) Mil/uL Hgb (12.0-18.0) g/dL Hct (35.0-51.0) % MCV (80.0-94.0) fL MCH (27.0-31.0) pg MCHC (33.0-37.0) g/dL RDW (11.5-14.5) % Plt Count (130-400) K/uL MPV (7.2-11.7) fL Neut % (Auto) (50.0-75.0) % Lymph % (Auto) (20.0-40.0) % [place] % (Auto) (0.0-10.0) % Eos % (Auto) (0.0-4.0) % Baso % (Auto) (0.0-2.0) % Neut # (Auto) (1.8-7.0) K/uL Lymph # (Auto) (1.0-4.3) K/uL [place] # (Auto) (0.0-0.8) K/uL Eos # (Auto) (0.0-0.7) K/uL Baso # (Auto) (0.0-0.2) K/uL Sodium (132-148) mmol/L Potassium (3.6-5.2) mmol/L Chloride (98-107) mmol/L Carbon Dioxide (22-30) mmol/L Anion Gap (10-20) BUN (9-20) mg/dL Creatinine (0.8-1.5) mg/dL Est GFR ( Amer) Est GFR (Non-Af Amer) POC Glucose (mg/dL) 281 H (65-110) mg/dL Random Glucose (75-110) mg/dL Calcium (8.6-10.4) mg/dl Phosphorus (2.5-4.5) mg/dL Magnesium (1.6-2.3) mg/dL Total Bilirubin (0.2-1.3) mg/dL AST (17-59) U/L ALT (21-72) U/L Alkaline Phosphatase (38-126) U/L Total Protein (6.3-8.3) g/dL Albumin (3.5-5.0) g/dL Globulin (2.2-3.9) gm/dL Albumin/Globulin Ratio (1.0-2.1) Toxicology Panel see note Laboratory Results - last 24 hr 01/27/18 02/04/18 02/04/18 17:10 17:41 21:19 WBC 7.4 RBC 3.12 L Hgb 9.4 L Hct 27.9 L MCV 89.6 MCH 30.1 MCHC 33.6 RDW 19.2 H Plt Count 116 L MPV 9.7 Neut % (Auto) 75.5 H Lymph % (Auto) 17.1 L [place] % (Auto) 5.8 Eos % (Auto) 1.2 Baso % (Auto) 0.4 Neut # (Auto) 5.6 Lymph # (Auto) 1.3 [place] # (Auto) 0.4 Eos # (Auto) 0.1 Baso # (Auto) 0.0 Sodium Potassium Chloride Carbon Dioxide Anion Gap BUN Creatinine Est GFR ( Amer) Est GFR (Non-Af Amer) POC Glucose (mg/dL) 281 H Random Glucose Calcium Phosphorus Magnesium Total Bilirubin AST ALT Alkaline Phosphatase Total Protein Albumin Globulin Albumin/Globulin Ratio Toxicology Panel see note 02/04/18 02/05/18 02/05/18 23:44 05:56 06:26 WBC 7.8 RBC 2.94 L Hgb 9.0 L Hct 26.4 L MCV 89.7 MCH 30.7 MCHC 34.2 RDW 19.0 H Plt Count 111 L MPV 10.0 Neut % (Auto) 75.9 H Lymph % (Auto) 16.7 L [place] % (Auto) 5.3 Eos % (Auto) 1.9 Baso % (Auto) 0.2 Neut # (Auto) 5.9 Lymph # (Auto) 1.3 [place] # (Auto) 0.4 Eos # (Auto) 0.1 Baso # (Auto) 0.0 Sodium Potassium Chloride Carbon Dioxide Anion Gap BUN Creatinine Est GFR ( Amer) Est GFR (Non-Af Amer) POC Glucose (mg/dL) 293 H 186 H Random Glucose Calcium Phosphorus Magnesium Total Bilirubin AST ALT Alkaline Phosphatase Total Protein Albumin Globulin Albumin/Globulin Ratio Toxicology Panel 02/05/18 02/05/18 06:26 11:27 WBC RBC Hgb Hct MCV MCH MCHC RDW Plt Count MPV Neut % (Auto) Lymph % (Auto) [place] % (Auto) Eos % (Auto) Baso % (Auto) Neut # (Auto) Lymph # (Auto) [place] # (Auto) Eos # (Auto) Baso # (Auto) Sodium 149 H Potassium 3.8 Chloride 119 H Carbon Dioxide 24 Anion Gap 10 BUN 24 H Creatinine 0.8 Est GFR ( Amer) > 60 Est GFR (Non-Af Amer) > 60 POC Glucose (mg/dL) 240 H Random Glucose 158 H Calcium 9.1 Phosphorus 1.7 L Magnesium 1.6 Total Bilirubin 0.6 AST 22 ALT 30 Alkaline Phosphatase 53 Total Protein 4.7 L Albumin 2.2 L Globulin 2.5 Albumin/Globulin Ratio 0.9 L Toxicology Panel Fingerstick Blood Sugar Results: 240 Review of Systems - Review of Systems All systems: reviewed and no additional remarkable complaints except Critical Care Progress Note - Nutrition Nutrition: Nutrition Category Date Time Status Liquid Diet [DIET] Diets 02/03/18 Dinner Active Assessment/Plan (1) Abdominal pain Assessment and plan: Patient underwent duodenal ulcer perforation surgery. Patient readmitted with abdominal pain Patient had a GI bleed Received a blood transfusion, on PPI. Patient also had an episode PE, DVT. Patient is not on anticoagulation because of the GI bleed. He will be closely monitored. Will need to possibly IVC filter given the high risk of bleeding. Clinical stable. Possibly transfer to floor Current Visit: Yes Status: Acute (2) Pulmonary embolism Current Visit: Yes Status: Acute
--- NOTE | 2018-02-05 16:30 | CP.PCM.PN ---
Subjective - Date & Time of Evaluation Date of Evaluation: 02/05/18 Time of Evaluation: 12:05 - Subjective Subjective: Patient seen and evaluated Denies chest pain and dyspnea CAD: Multi vessel disease s/p Abdominal surgery Medical management Objective - Vital Signs/Intake and Output Vital Signs (last 24 hours): Temp Pulse Resp BP Pulse Ox 98.5 F 94 H 19 114/69 95 02/05/18 12:00 02/05/18 15:02 02/05/18 15:02 02/05/18 15:02 02/05/18 15:02 Intake and Output: 02/05/18 02/05/18 06:59 18:59 Intake Total 856 804 Output Total 200 300 Balance 656 504 - Medications Medications: Current Medications Hydromorphone HCl (Dilaudid) 0.5 mg IVP Q4H PRN PRN Reason: Pain, severe (8-10) Last Admin: 02/03/18 22:41 Dose: 0.5 mg Pantoprazole Sodium 80 mg/ (Sodium Chloride) 100 mls @ 10 mls/hr IVPB .Q10H [facility] PRN Reason: 8 MG/HR Last Admin: 02/05/18 13:16 Dose: 10 mls/hr Aztreonam 2 gm/ Sodium (Chloride) 100 mls @ 100 mls/hr IVPB Q8H [facility] PRN Reason: Protocol Last Admin: 02/05/18 13:18 Dose: 100 mls/hr Metronidazole (Flagyl) 500 mg in 100 mls @ 100 mls/hr IVPB Q8 [facility] PRN Reason: Protocol Last Admin: 02/05/18 13:10 Dose: 100 mls/hr Multivitamins/Vitamin C 10 ml/Insulin Human Regular 10 unit / Amino Acids 1, 010.1 mls @ 42 mls/hr IV .Q24H [facility] Stop: 02/06/18 17:59 Insulin Aspart (Novolog) 0 unit SC Q6H [facility] PRN Reason: Protocol Last Admin: 02/05/18 11:38 Dose: 3 unit Insulin Glargine (Lantus) 10 unit SC DAILY [facility] Last Admin: 02/05/18 09:27 Dose: 10 units Midodrine (Proamatine) 2.5 mg PO TID [facility] Last Admin: 02/05/18 13:09 Dose: 2.5 mg Multivitamins (Hexavitamin) 1 tab PO DAILY [facility] Last Admin: 02/05/18 09:27 Dose: 1 tab - Labs Labs: 02/05/18 06:26 02/05/18 06:26 PT 15.9 SECONDS (9.7-12.2) H 02/04/18 06:22 INR 1.5 02/04/18 06:22 APTT 32 SECONDS (21-34) 02/04/18 06:22
[2018-02-05] MEDS ORDERED: PPN # 1 IV SCH (18:00)
--- NOTE | 2018-02-05 22:31 | CP.PCM.PN ---
Subjective - Date & Time of Evaluation Date of Evaluation: 02/05/18 Time of Evaluation: 19:00 - Subjective Subjective: Pt is weak and pt is chronically sick, his condition is some what stable, no shortness of breath, chest pain Objective - Vital Signs/Intake and Output Vital Signs (last 24 hours): Temp Pulse Resp BP Pulse Ox 97.8 F 86 15 141/72 97 02/05/18 20:00 02/05/18 21:00 02/05/18 21:00 02/05/18 21:02 02/05/18 21:00 Intake and Output: 02/05/18 02/06/18 18:59 06:59 Intake Total 976 156 Output Total 740 0 Balance 236 156 - Medications Medications: Current Medications Hydromorphone HCl (Dilaudid) 0.5 mg IVP Q4H PRN PRN Reason: Pain, severe (8-10) Last Admin: 02/03/18 22:41 Dose: 0.5 mg Pantoprazole Sodium 80 mg/ (Sodium Chloride) 100 mls @ 10 mls/hr IVPB .Q10H [facility] PRN Reason: 8 MG/HR Last Admin: 02/05/18 13:16 Dose: 10 mls/hr Aztreonam 2 gm/ Sodium (Chloride) 100 mls @ 100 mls/hr IVPB Q8H [facility] PRN Reason: Protocol Last Admin: 02/05/18 22:07 Dose: 100 mls/hr Metronidazole (Flagyl) 500 mg in 100 mls @ 100 mls/hr IVPB Q8 [facility] PRN Reason: Protocol Last Admin: 02/05/18 22:07 Dose: 100 mls/hr Multivitamins/Vitamin C 10 ml/Insulin Human Regular 10 unit / Amino Acids 1, 010.1 mls @ 42 mls/hr IV .Q24H [facility] Stop: 02/06/18 17:59 Last Admin: 02/05/18 17:07 Dose: 42 mls/hr Insulin Aspart (Novolog) 0 unit SC Q6H [facility] PRN Reason: Protocol Last Admin: 02/05/18 17:18 Dose: 3 unit Insulin Glargine (Lantus) 10 unit SC DAILY [facility] Last Admin: 02/05/18 09:27 Dose: 10 units Midodrine (Proamatine) 2.5 mg PO TID [facility] Last Admin: 02/05/18 17:07 Dose: 2.5 mg Multivitamins (Hexavitamin) 1 tab PO DAILY [facility] Last Admin: 02/05/18 09:27 Dose: 1 tab - Labs Labs: 02/05/18 06:26 02/05/18 06:26 PT 15.9 SECONDS (9.7-12.2) H 02/04/18 06:22 INR 1.5 02/04/18 06:22 APTT 32 SECONDS (21-34) 02/04/18 06:22 - Constitutional Appears: No Acute Distress, Chronically Ill - Head Exam Head Exam: ATRAUMATIC, NORMAL INSPECTION, NORMOCEPHALIC - Eye Exam Eye Exam: EOMI, Normal appearance, PERRL Pupil Exam: NORMAL ACCOMODATION, PERRL - ENT Exam ENT Exam: Mucous Membranes Moist, Normal Exam - Respiratory Exam Respiratory Exam: Decreased Breath Sounds - Cardiovascular Exam Cardiovascular Exam: REGULAR RHYTHM, +S1, +S2. absent: Murmur - GI/Abdominal Exam GI & Abdominal Exam: Soft, Normal Bowel Sounds. absent: Tenderness - Rectal Exam Rectal Exam: Fecal Impaction Assessment and Plan (1) Abdominal pain Status: Acute (2) Hypotension (arterial) Status: Acute (3) Pulmonary embolism Status: Acute (4) Upper GI bleed Status: Acute (5) Acute non-ST elevation myocardial infarction (NSTEMI) Status: Acute (6) CHF (congestive heart failure) Status: Acute (7) Diabetes mellitus Status: Acute (8) Diabetic nephropathy Status: Acute (9) Failure to thrive in adult Status: Acute (10) Intraabdominal fluid collection Status: Acute (11) Pulmonary emboli Status: Suspected
[2018-02-06] MEDS: (Novolog) Insulin Aspart, Recombinant 100 u/ml 10 ml vial SC SCH ×4 (00:50→17:46)
[2018-02-06] MEDS: Pantoprazole 80 MG in Sodium Chloride 0.9% 100 ML IVPB SCH ×4 (00:51→13:18)
[2018-02-06] MEDS: metroNIDAZOLE IV 500 mg/100 ml 500 MG/100 ML BAG IVPB SCH ×3 (05:06→22:00)
[2018-02-06] MEDS: Aztreonam 2 GM in Sodium Chloride 0.9% 100 ML IVPB SCH ×3 (05:23→22:29)
[2018-02-06 06:44] LABS: BASO % 0.2 % (0.0-2.0); EOS # 0.2 K/uL (0.0-0.7); EOS % 2.1 % (0.0-4.0); HEMOGLOBIN 9.3 g/dL (12.0-18.0); LYMPH # 1.8 K/uL (1.0-4.3); LYMPH % 20.4 % (20.0-40.0); MEAN CELL VOLUME 89.6 fL (80.0-94.0); MEAN CORPUSCULAR HEMOGLOBIN 30.5 pg (27.0-31.0); MEAN PLATELET VOLUME 9.9 fL (7.2-11.7); MONO # 0.5 K/uL (0.0-0.8); MONO % 5.4 % (0.0-10.0); NEUT # 6.5 K/uL (1.8-7.0); NEUT % 71.9 % (50.0-75.0); NRBC % 0.2 % (0.0-2.0); RBC 3.05 Mil/uL (4.40-5.90); RED CELL DISTRIBUTION WIDTH 19.1 % (11.5-14.5)
[2018-02-06 07:01] LABS: ALB/GLOB RATIO 0.8 (1.0-2.1); ALT/SGPT 36 U/L (21-72); AST/SGOT 28 U/L (17-59); BLOOD UREA NITROGEN 21 mg/dL (9-20); CALCIUM 8.9 mg/dl (8.6-10.4); GFR AFRICAN-AMERICAN > 60; GFR NON-AFRICAN AMERICAN > 60
[2018-02-06] MEDS: Magnesium Sulfate 1 gm in D5W 1 GM/100 ML BAG IVPB SCH ×2 (09:39→10:11)
[2018-02-06] MEDS: Multiple Vitamins Tab PO SCH (09:40)
[2018-02-06] MEDS: (Lantus) Insulin Glargine, Recombinant SC SCH (09:41)
--- NOTE | 2018-02-06 11:20 | CP.CCUPN ---
"<Francisco Baker - Last Filed: 02/06/18 11:17> CCU Subjective - Physician Review Subjective (Free Text): Patient seen and examined at bedside. No overnight events reported. Patient reports denies any abdominal pain, fever, chills, SOB, chest pain, or new changes in bowel habits. CCU Objective - Vital Signs / Intake & Output Intake and Output (Last 8hrs): Intake & Output 02/05/18 02/06/18 02/06/18 22:59 06:59 14:59 Intake Total 620 716 Output Total 740 Balance -120 716 Weight 129 lb 1.6 oz Intake: Intake, IV Amount 490 716 Right Distal Port PICC 410 636 Right Proximal Port PICC 80 80 Oral 130 Output: Urine 740 Urine, Voided 740 Emesis 0 Other: # Bowel Movements 1 - Physical Exam Head: Positive for: Atraumatic, Normocephalic Pupils: Positive for: PERRL Mouth: Positive for: Moist Mucous Membranes Neck: Positive for: Normal Range of Motion Cardiovascular: Positive for: Regular Rate and Rhythm, Normal S1, S2 Abdomen: Positive for: Normal Bowel Sounds, Other (midline surgical Scar). Negative for: Tenderness, Peritoneal Signs Upper Extremity: Positive for: Edema Lower Extremity: Positive for: Edema Neurological: Positive for: GCS=15 Psychiatric: Positive for: Alert, Oriented x 3 - Medications Active Medications: Active Medications Generic Name Dose Route Start Last Admin Trade Name Freq PRN Reason Stop Dose Admin Hydromorphone HCl 0.5 mg 01/30/18 09:10 02/03/18 22:41 Dilaudid IVP 0.5 mg Q4H PRN Administration Pain, severe (8-10) Pantoprazole Sodium 80 mg/ 100 mls @ 10 mls/hr 02/03/18 10:30 02/06/18 09:40 Sodium Chloride IVPB Not Given .Q10H [facility]INE 8 MG/HR Aztreonam 2 gm/ Sodium 100 mls @ 100 mls/hr 02/03/18 14:15 02/06/18 05:23 Chloride IVPB 100 mls/hr Q8H [facility] Administration Protocol Metronidazole 500 mg in 100 mls @ 100 mls/hr 02/03/18 22:00 02/06/18 05:06 Flagyl IVPB 100 mls/hr Q8 [facility] Administration Protocol Multivitamins/Vitamin C 10 ml/ 1,010.1 mls @ 42 mls/hr 02/05/18 18:00 17:07 Insulin Human Regular 10 unit IV 02/06/18 17:59 42 mls/hr / Amino Acids .Q24H [facility] Administration Insulin Aspart 0 unit 02/02/18 12:00 02/06/18 05:39 Novolog SC Not Given Q6H [facility] Protocol Insulin Glargine 10 unit 02/02/18 10:00 02/06/18 09:41 Lantus SC 10 units DAILY [facility] Administration Midodrine 2.5 mg 02/02/18 10:00 02/06/18 09:40 Proamatine PO 2.5 mg TID [facility] Administration Multivitamins 1 tab 01/27/18 10:00 02/06/18 09:40 Hexavitamin PO 1 tab DAILY [facility] Administration - Patient Studies Lab Studies: Lab Studies 02/06/18 02/06/18 02/06/18 Range/Units 06:36 06:35 05:32 WBC 9.0 (4.8-10.8) K/uL RBC 3.05 L (4.40-5.90) Mil/uL Hgb 9.3 L (12.0-18.0) g/dL Hct 27.3 L (35.0-51.0) % MCV 89.6 (80.0-94.0) fL MCH 30.5 (27.0-31.0) pg MCHC 34.0 (33.0-37.0) g/dL RDW 19.1 H (11.5-14.5) % Plt Count 102 L (130-400) K/uL MPV 9.9 (7.2-11.7) fL Neut % (Auto) 71.9 (50.0-75.0) % Lymph % (Auto) 20.4 (20.0-40.0) % Wayne % (Auto) 5.4 (0.0-10.0) % Eos % (Auto) 2.1 (0.0-4.0) % Baso % (Auto) 0.2 (0.0-2.0) % Neut # (Auto) 6.5 (1.8-7.0) K/uL Lymph # (Auto) 1.8 (1.0-4.3) K/uL Wayne # (Auto) 0.5 (0.0-0.8) K/uL Eos # (Auto) 0.2 (0.0-0.7) K/uL Baso # (Auto) 0.0 (0.0-0.2) K/uL Sodium 146 (132-148) mmol/L Potassium 3.8 (3.6-5.2) mmol/L Chloride 117 H (98-107) mmol/L Carbon Dioxide 23 (22-30) mmol/L Anion Gap 10 (10-20) BUN 21 H (9-20) mg/dL Creatinine 0.7 L (0.8-1.5) mg/dL Est GFR ( Amer) > 60 Est GFR (Non-Af Amer) > 60 POC Glucose (mg/dL) 86 (65-110) mg/dL Random Glucose 77 (75-110) mg/dL Calcium 8.9 (8.6-10.4) mg/dl Phosphorus 2.5 (2.5-4.5) mg/dL Magnesium 1.3 L (1.6-2.3) mg/dL Total Bilirubin 0.5 (0.2-1.3) mg/dL AST 28 (17-59) U/L ALT 36 (21-72) U/L Alkaline Phosphatase 52 (38-126) U/L Total Protein 4.5 L (6.3-8.3) g/dL Albumin 2.0 L (3.5-5.0) g/dL Globulin 2.5 (2.2-3.9) gm/dL Albumin/Globulin Ratio 0.8 L (1.0-2.1) 02/05/18 02/05/18 02/05/18 Range/Units 23:48 17:13 11:27 WBC (4.8-10.8) K/uL RBC (4.40-5.90) Mil/uL Hgb (12.0-18.0) g/dL Hct (35.0-51.0) % MCV (80.0-94.0) fL MCH (27.0-31.0) pg MCHC (33.0-37.0) g/dL RDW (11.5-14.5) % Plt Count (130-400) K/uL MPV (7.2-11.7) fL Neut % (Auto) (50.0-75.0) % Lymph % (Auto) (20.0-40.0) % Wayne % (Auto) (0.0-10.0) % Eos % (Auto) (0.0-4.0) % Baso % (Auto) (0.0-2.0) % Neut # (Auto) (1.8-7.0) K/uL Lymph # (Auto) (1.0-4.3) K/uL Wayne # (Auto) (0.0-0.8) K/uL Eos # (Auto) (0.0-0.7) K/uL Baso # (Auto) (0.0-0.2) K/uL Sodium (132-148) mmol/L Potassium (3.6-5.2) mmol/L Chloride (98-107) mmol/L Carbon Dioxide (22-30) mmol/L Anion Gap (10-20) BUN (9-20) mg/dL Creatinine (0.8-1.5) mg/dL Est GFR ( Amer) Est GFR (Non-Af Amer) POC Glucose (mg/dL) 108 201 H 240 H (65-110) mg/dL Random Glucose (75-110) mg/dL Calcium (8.6-10.4) mg/dl Phosphorus (2.5-4.5) mg/dL Magnesium (1.6-2.3) mg/dL Total Bilirubin (0.2-1.3) mg/dL AST (17-59) U/L ALT (21-72) U/L Alkaline Phosphatase (38-126) U/L Total Protein (6.3-8.3) g/dL Albumin (3.5-5.0) g/dL Globulin (2.2-3.9) gm/dL Albumin/Globulin Ratio (1.0-2.1) Laboratory Results - last 24 hr 02/05/18 02/05/18 02/05/18 11:27 17:13 23:48 WBC RBC Hgb Hct MCV MCH MCHC RDW Plt Count MPV Neut % (Auto) Lymph % (Auto) Wayne % (Auto) Eos % (Auto) Baso % (Auto) Neut # (Auto) Lymph # (Auto) Wayne # (Auto) Eos # (Auto) Baso # (Auto) Sodium Potassium Chloride Carbon Dioxide Anion Gap BUN Creatinine Est GFR ( Amer) Est GFR (Non-Af Amer) POC Glucose (mg/dL) 240 H 201 H 108 Random Glucose Calcium Phosphorus Magnesium Total Bilirubin AST ALT Alkaline Phosphatase Total Protein Albumin Globulin Albumin/Globulin Ratio 02/06/18 02/06/18 02/06/18 05:32 06:35 06:36 WBC 9.0 RBC 3.05 L Hgb 9.3 L Hct 27.3 L MCV 89.6 MCH 30.5 MCHC 34.0 RDW 19.1 H Plt Count 102 L MPV 9.9 Neut % (Auto) 71.9 Lymph % (Auto) 20.4 Wayne % (Auto) 5.4 Eos % (Auto) 2.1 Baso % (Auto) 0.2 Neut # (Auto) 6.5 Lymph # (Auto) 1.8 Wayne # (Auto) 0.5 Eos # (Auto) 0.2 Baso # (Auto) 0.0 Sodium 146 Potassium 3.8 Chloride 117 H Carbon Dioxide 23 Anion Gap 10 BUN 21 H Creatinine 0.7 L Est GFR ( Amer) > 60 Est GFR (Non-Af Amer) > 60 POC Glucose (mg/dL) 86 Random Glucose 77 Calcium 8.9 Phosphorus 2.5 Magnesium 1.3 L Total Bilirubin 0.5 AST 28 ALT 36 Alkaline Phosphatase 52 Total Protein 4.5 L Albumin 2.0 L Globulin 2.5 Albumin/Globulin Ratio 0.8 L Fingerstick Blood Sugar Results: 83 Review of Systems - Review of Systems Review of Systems: As per subjective Critical Care Progress Note - Nutrition Nutrition: Nutrition Category Date Time Status Liquid Diet [DIET] Diets 02/03/18 Dinner Active Assessment/Plan - Assessment and Plan (Free Text) Assessment: 77 y/o male with PMhx of DM, PVD, h/o duodenal perforation s/p surgical correction presents to [facility] with abdominal pain and dx with incidental finding of pulmonary embolism. 02/01/18: Patient found to have acute GI Bleed. Plan: Neuro: GCS: 15 Sedation: None Cardio: A: NSTEMI (Type II), Hypotension (Stable), HLD, Multivessel CAD, Wide Complex Tachycardia (Resolved) Pressors: None ECHO on 4/16 showed 65%-70% EF and Grade I Abnormal Relaxation Pattern. Heparin Held 2/2 to GI Bleed Cardiology on Consult, Recs Appreciated Not a candidate for CABG per Cardiology Continue Crestor 20 HS Digoxin BP Tolerates Continue Midodrine 2.5 mg PO TID Pulm: A: PE No indication for full Anticoagulation due to adequate Oxygenation, only a small subsegmental defect on CT and Anemia Pulmonology on Consult, Recs Appreciated. ID A: Sepsis (Resolve) Afebrile,No Leukocytosis Blood Culture - NEGATIVE | Urine Culture - NEGATIVE | MRSA - Negative Flagyl 500 Q8H, Vancomycin 1g Daily, Aztreonam 2gm Q8H [employer] - DISCONTINUED GI A: s/p Duodenal ulcer perforation repair, Abdominal Abcess, Upper GI Bleed? Peripancreatic fluid collection measured 7 cm x 4 cm on 12/24/2017. It currently measures 6 x 1. 5cm Small peripancreatic fluid collection is not amendable to percutaneious drainage per IR. Endoscopy (02/03): Clotted Blood without active bleeding in the duodenal bulb. One non-bleeding duodenal ulcer with adherant clot. GI on Conuslt, Recs Appreciated IR on Consult, Recs Appreciated Gen Surg on Consult, Recs Appreciated Cont. Protonix IV Drip (Day 3) Diet: Clear Liquid Renal A: Hypomagnesemia Replenished magnesium Endo A: Elevated Blood Sugar Novolog ISS Q6H Lantus 10 SC Daily Consider HgBA1C Heme/Onc A: Anemia (Stale), Thrombocytopenia Monitor H/H HgB 9.3 Today which is up form 9.0 Yesterday. Proph Protonix IVP Pharm DVT Proph Contraindicated due to Thrombocytopenia/GI Bleed SCD's Patient seen and discussed with ICU Attending Francisco Baker, PGY-1 <Obed Faey S - Last Filed: 02/06/18 17:25> CCU Objective - Vital Signs / Intake & Output Vital Signs (Last 4 hours): Vital Signs Pulse Resp BP Pulse Ox 02/06/18 15:02 105 H 20 126/78 96 02/06/18 14:01 114 H 19 130/85 96 Intake and Output (Last 8hrs): Intake & Output 02/06/18 02/06/18 02/06/18 06:59 14:59 22:59 Intake Total 716 916 142 Balance 716 916 142 Weight 129 lb 1.6 oz Intake: Intake, IV Amount 716 716 142 Right Distal Port PICC 636 336 42 Right Proximal 2 300 100 Right Proximal Port PICC 80 80 0 Oral 200 Other: # Bowel Movements 1 - Medications Active Medications: Active Medications Generic Name Dose Route Start Last Admin Trade Name Freq PRN Reason Stop Dose Admin Hydromorphone HCl 0.5 mg 01/30/18 09:10 02/03/18 22:41 Dilaudid IVP 0.5 mg Q4H PRN Administration Pain, severe (8-10) Aztreonam 2 gm/ Sodium 100 mls @ 100 mls/hr 02/03/18 14:15 02/06/18 14:30 Chloride IVPB 100 mls/hr Q8H [facility] Administration Protocol Metronidazole 500 mg in 100 mls @ 100 mls/hr 02/03/18 22:00 02/06/18 13:12 Flagyl IVPB 100 mls/hr Q8 [facility] Administration Protocol Multivitamins/Vitamin C 10 ml/ 1,010.1 mls @ 42 mls/hr 02/05/18 18:00 17:07 Insulin Human Regular 10 unit IV 02/06/18 17:59 42 mls/hr / Amino Acids .Q24H [facility] Administration Multivitamins/Vitamin C 10 ml/ 1,010.1 mls @ 42 mls/hr 02/06/18 18:00 Insulin Human Regular 10 unit IV 02/07/18 17:59 / Amino Acids .Q24H [facility] Insulin Aspart 0 unit 02/02/18 12:00 02/06/18 13:15 Novolog SC 3 unit Q6H [facility] Administration Protocol Insulin Glargine 10 unit 02/02/18 10:00 02/06/18 09:41 Lantus SC 10 units DAILY [facility] Administration Midodrine 2.5 mg 02/02/18 10:00 02/06/18 13:27 Proamatine PO 2.5 mg TID [facility] Administration Multivitamins 1 tab 01/27/18 10:00 02/06/18 09:40 Hexavitamin PO 1 tab DAILY [facility] Administration Pantoprazole Sodium 40 mg 02/06/18 18:00 Protonix Susp GT BID [facility]OLINE - Patient Studies Lab Studies: Lab Studies 02/06/18 02/06/18 02/06/18 Range/Units 11:25 06:36 06:35 WBC 9.0 (4.8-10.8) K/uL RBC 3.05 L (4.40-5.90) Mil/uL Hgb 9.3 L (12.0-18.0) g/dL Hct 27.3 L (35.0-51.0) % MCV 89.6 (80.0-94.0) fL MCH 30.5 (27.0-31.0) pg MCHC 34.0 (33.0-37.0) g/dL RDW 19.1 H (11.5-14.5) % Plt Count 102 L (130-400) K/uL MPV 9.9 (7.2-11.7) fL Neut % (Auto) 71.9 (50.0-75.0) % Lymph % (Auto) 20.4 (20.0-40.0) % Wayne % (Auto) 5.4 (0.0-10.0) % Eos % (Auto) 2.1 (0.0-4.0) % Baso % (Auto) 0.2 (0.0-2.0) % Neut # (Auto) 6.5 (1.8-7.0) K/uL Lymph # (Auto) 1.8 (1.0-4.3) K/uL Wayne # (Auto) 0.5 (0.0-0.8) K/uL Eos # (Auto) 0.2 (0.0-0.7) K/uL Baso # (Auto) 0.0 (0.0-0.2) K/uL Sodium 146 (132-148) mmol/L Potassium 3.8 (3.6-5.2) mmol/L Chloride 117 H (98-107) mmol/L Carbon Dioxide 23 (22-30) mmol/L Anion Gap 10 (10-20) BUN 21 H (9-20) mg/dL Creatinine 0.7 L (0.8-1.5) mg/dL Est GFR ( Amer) > 60 Est GFR (Non-Af Amer) > 60 POC Glucose (mg/dL) 219 H (65-110) mg/dL Random Glucose 77 (75-110) mg/dL Calcium 8.9 (8.6-10.4) mg/dl Phosphorus 2.5 (2.5-4.5) mg/dL Magnesium 1.3 L (1.6-2.3) mg/dL Total Bilirubin 0.5 (0.2-1.3) mg/dL AST 28 (17-59) U/L ALT 36 (21-72) U/L Alkaline Phosphatase 52 (38-126) U/L Total Protein 4.5 L (6.3-8.3) g/dL Albumin 2.0 L (3.5-5.0) g/dL Globulin 2.5 (2.2-3.9) gm/dL Albumin/Globulin Ratio 0.8 L (1.0-2.1) 02/06/18 02/05/18 02/05/18 Range/Units 05:32 23:48 17:13 WBC (4.8-10.8) K/uL RBC (4.40-5.90) Mil/uL Hgb (12.0-18.0) g/dL Hct (35.0-51.0) % MCV (80.0-94.0) fL MCH (27.0-31.0) pg MCHC (33.0-37.0) g/dL RDW (11.5-14.5) % Plt Count (130-400) K/uL MPV (7.2-11.7) fL Neut % (Auto) (50.0-75.0) % Lymph % (Auto) (20.0-40.0) % Wayne % (Auto) (0.0-10.0) % Eos % (Auto) (0.0-4.0) % Baso % (Auto) (0.0-2.0) % Neut # (Auto) (1.8-7.0) K/uL Lymph # (Auto) (1.0-4.3) K/uL Wayne # (Auto) (0.0-0.8) K/uL Eos # (Auto) (0.0-0.7) K/uL Baso # (Auto) (0.0-0.2) K/uL Sodium (132-148) mmol/L Potassium (3.6-5.2) mmol/L Chloride (98-107) mmol/L Carbon Dioxide (22-30) mmol/L Anion Gap (10-20) BUN (9-20) mg/dL Creatinine (0.8-1.5) mg/dL Est GFR ( Amer) Est GFR (Non-Af Amer) POC Glucose (mg/dL) 86 108 201 H (65-110) mg/dL Random Glucose (75-110) mg/dL Calcium (8.6-10.4) mg/dl Phosphorus (2.5-4.5) mg/dL Magnesium (1.6-2.3) mg/dL Total Bilirubin (0.2-1.3) mg/dL AST (17-59) U/L ALT (21-72) U/L Alkaline Phosphatase (38-126) U/L Total Protein (6.3-8.3) g/dL Albumin (3.5-5.0) g/dL Globulin (2.2-3.9) gm/dL Albumin/Globulin Ratio (1.0-2.1) Laboratory Results - last 24 hr 02/05/18 02/05/18 02/06/18 17:13 23:48 05:32 WBC RBC Hgb Hct MCV MCH MCHC RDW Plt Count MPV Neut % (Auto) Lymph % (Auto) Wayne % (Auto) Eos % (Auto) Baso % (Auto) Neut # (Auto) Lymph # (Auto) Wayne # (Auto) Eos # (Auto) Baso # (Auto) Sodium Potassium Chloride Carbon Dioxide Anion Gap BUN Creatinine Est GFR ( Amer) Est GFR (Non-Af Amer) POC Glucose (mg/dL) 201 H 108 86 Random Glucose Calcium Phosphorus Magnesium Total Bilirubin AST ALT Alkaline Phosphatase Total Protein Albumin Globulin Albumin/Globulin Ratio 02/06/18 02/06/18 02/06/18 06:35 06:36 11:25 WBC 9.0 RBC 3.05 L Hgb 9.3 L Hct 27.3 L MCV 89.6 MCH 30.5 MCHC 34.0 RDW 19.1 H Plt Count 102 L MPV 9.9 Neut % (Auto) 71.9 Lymph % (Auto) 20.4 Wayne % (Auto) 5.4 Eos % (Auto) 2.1 Baso % (Auto) 0.2 Neut # (Auto) 6.5 Lymph # (Auto) 1.8 Wayne # (Auto) 0.5 Eos # (Auto) 0.2 Baso # (Auto) 0.0 Sodium 146 Potassium 3.8 Chloride 117 H Carbon Dioxide 23 Anion Gap 10 BUN 21 H Creatinine 0.7 L Est GFR ( Amer) > 60 Est GFR (Non-Af Amer) > 60 POC Glucose (mg/dL) 219 H Random Glucose 77 Calcium 8.9 Phosphorus 2.5 Magnesium 1.3 L Total Bilirubin 0.5 AST 28 ALT 36 Alkaline Phosphatase 52 Total Protein 4.5 L Albumin 2.0 L Globulin 2.5 Albumin/Globulin Ratio 0.8 L Critical Care Progress Note - Nutrition Nutrition: Nutrition Category Date Time Status Consistent Carbohydrate [DIET] Diets 02/06/18 Dinner Active Assessment/Plan (1) Hypotension (arterial) Current Visit: Yes Status: Acute (2) Abdominal pain Current Visit: Yes Status: Acute (3) Pulmonary embolism Current Visit: Yes Status: Acute (4) Acute non-ST elevation myocardial infarction (NSTEMI) Current Visit: No Status: Acute Attending/Attestation - Attestation I have personally seen and examined this patient.: Yes I have fully participated in the care of the patient.: Yes I have reviewed all pertinent clinical information: Yes Notes (Text): 02/06/18 17:24 Patient seen and examined in the intensive care unit. Case discussed with house staff in the morning. No further bleeding noted with H&H stable Continue Protonix Continue PPN IV antibiotics Physical therapy"
--- NOTE | 2018-02-06 14:15 | CP.PCM.PN ---
Subjective - Date & Time of Evaluation Date of Evaluation: 02/06/18 Time of Evaluation: 14:14 - Subjective Subjective: CC: F/U GI bleed Remains in ICU. Frail. Poor appetite No Further bleeding noted. Hgb stable On PPI drip Objective - Vital Signs/Intake and Output Vital Signs (last 24 hours): Temp Pulse Resp BP Pulse Ox 97.1 F L 96 H 21 145/81 94 L 02/06/18 04:00 02/06/18 06:00 02/06/18 06:00 02/06/18 06:02 02/06/18 06:00 Intake and Output: 02/06/18 02/06/18 06:59 18:59 Intake Total 1054 Output Total 300 Balance 754 - Medications Medications: Current Medications Hydromorphone HCl (Dilaudid) 0.5 mg IVP Q4H PRN PRN Reason: Pain, severe (8-10) Last Admin: 02/03/18 22:41 Dose: 0.5 mg Pantoprazole Sodium 80 mg/ (Sodium Chloride) 100 mls @ 10 mls/hr IVPB .Q10H [facility] PRN Reason: 8 MG/HR Last Admin: 02/06/18 13:18 Dose: 10 mls/hr Aztreonam 2 gm/ Sodium (Chloride) 100 mls @ 100 mls/hr IVPB Q8H [facility] PRN Reason: Protocol Last Admin: 02/06/18 05:23 Dose: 100 mls/hr Metronidazole (Flagyl) 500 mg in 100 mls @ 100 mls/hr IVPB Q8 [facility] PRN Reason: Protocol Last Admin: 02/06/18 13:12 Dose: 100 mls/hr Multivitamins/Vitamin C 10 ml/Insulin Human Regular 10 unit / Amino Acids 1, 010.1 mls @ 42 mls/hr IV .Q24H [facility]OLINE Stop: 02/06/18 17:59 Last Admin: 02/05/18 17:07 Dose: 42 mls/hr Multivitamins/Vitamin C 10 ml/Insulin Human Regular 10 unit / Amino Acids 1, 010.1 mls @ 42 mls/hr IV .Q24H [facility]OLINE Stop: 02/07/18 17:59 Insulin Aspart (Novolog) 0 unit SC Q6H K[facility]OLINE PRN Reason: Protocol Last Admin: 05/29/18 13:15 Dose: 3 unit Insulin Glargine (Lantus) 10 unit SC DAILY [facility] Last Admin: 02/06/18 09:41 Dose: 10 units Midodrine (Proamatine) 2.5 mg PO TID [facility] Last Admin: 02/06/18 13:27 Dose: 2.5 mg Multivitamins (Hexavitamin) 1 tab PO DAILY [facility] Last Admin: 02/06/18 09:40 Dose: 1 tab - Labs Labs: 02/06/18 06:35 02/06/18 06:36 PT 15.9 SECONDS (9.7-12.2) H 02/04/18 06:22 INR 1.5 02/04/18 06:22 APTT 32 SECONDS (21-34) 02/04/18 06:22 - Constitutional Appears: Chronically Ill - Respiratory Exam Respiratory Exam: NORMAL BREATHING PATTERN - Cardiovascular Exam Cardiovascular Exam: REGULAR RHYTHM - GI/Abdominal Exam GI & Abdominal Exam: Soft, Normal Bowel Sounds. absent: Tenderness Assessment and Plan (1) Abdominal pain Assessment & Plan: DU Resolved Status: Acute (2) Pulmonary embolism Status: Acute (3) Upper GI bleed Assessment & Plan: Resolved May change Protonix to PO Status: Acute (4) Acute non-ST elevation myocardial infarction (NSTEMI) Status: Acute (5) Perforated abdominal viscus Status: Acute
--- NOTE | 2018-02-06 17:01 | CP.PCM.PN ---
Subjective - Date & Time of Evaluation Date of Evaluation: 02/06/18 Time of Evaluation: 11:55 - Subjective Subjective: Patient seen and evaluated denies chest pain and dyspnea Objective - Vital Signs/Intake and Output Vital Signs (last 24 hours): Temp Pulse Resp BP Pulse Ox 97.1 F L 105 H 20 126/78 96 02/06/18 04:00 02/06/18 15:02 02/06/18 15:02 02/06/18 15:02 02/06/18 15:02 Intake and Output: 02/06/18 02/06/18 06:59 18:59 Intake Total 1054 1058 Output Total 300 Balance 754 1058 - Medications Medications: Current Medications Hydromorphone HCl (Dilaudid) 0.5 mg IVP Q4H PRN PRN Reason: Pain, severe (8-10) Last Admin: 02/03/18 22:41 Dose: 0.5 mg Aztreonam 2 gm/ Sodium (Chloride) 100 mls @ 100 mls/hr IVPB Q8H [facility] PRN Reason: Protocol Last Admin: 02/06/18 14:30 Dose: 100 mls/hr Metronidazole (Flagyl) 500 mg in 100 mls @ 100 mls/hr IVPB Q8 [facility] PRN Reason: Protocol Last Admin: 02/06/18 13:12 Dose: 100 mls/hr Multivitamins/Vitamin C 10 ml/Insulin Human Regular 10 unit / Amino Acids 1, 010.1 mls @ 42 mls/hr IV .Q24H [facility] Stop: 02/06/18 17:59 Last Admin: 02/05/18 17:07 Dose: 42 mls/hr Multivitamins/Vitamin C 10 ml/Insulin Human Regular 10 unit / Amino Acids 1, 010.1 mls @ 42 mls/hr IV .Q24H [facility] Stop: 02/07/18 17:59 Insulin Aspart (Novolog) 0 unit SC Q6H [facility] PRN Reason: Protocol Last Admin: 02/06/18 13:15 Dose: 3 unit Insulin Glargine (Lantus) 10 unit SC DAILY [facility] Last Admin: 02/06/18 09:41 Dose: 10 units Midodrine (Proamatine) 2.5 mg PO TID [facility] Last Admin: 02/06/18 13:27 Dose: 2.5 mg Multivitamins (Hexavitamin) 1 tab PO DAILY [facility] Last Admin: 02/06/18 09:40 Dose: 1 tab Pantoprazole Sodium (Protonix Ec Tab) 40 mg PO BID [facility] - Labs Labs: 02/06/18 06:35 02/06/18 06:36 PT 15.9 SECONDS (9.7-12.2) H 02/04/18 06:22 INR 1.5 02/04/18 06:22 APTT 32 SECONDS (21-34) 02/04/18 06:22 - Head Exam Head Exam: ATRAUMATIC, NORMAL INSPECTION - Eye Exam Eye Exam: EOMI, Normal appearance Pupil Exam: NORMAL ACCOMODATION - ENT Exam ENT Exam: Mucous Membranes Moist, Normal Exam - Neck Exam Neck Exam: Full ROM, Normal Inspection - Respiratory Exam Respiratory Exam: Clear to Ausculation Bilateral, NORMAL BREATHING PATTERN - Cardiovascular Exam Cardiovascular Exam: REGULAR RHYTHM, +S1, +S2 - GI/Abdominal Exam GI & Abdominal Exam: Soft, Normal Bowel Sounds - Extremities Exam Extremities Exam: Full ROM - Neurological Exam Neurological Exam: Alert, Awake - Psychiatric Exam Psychiatric exam: Normal Affect - Skin Skin Exam: Dry, Warm Assessment and Plan - Assessment and Plan (Free Text) Assessment: (1) CAD (coronary artery disease) Assessment & Plan: not a candidate for CABG medical therapy at present Status: Acute (2) Atrial fibrillation Assessment & Plan: tachcyardic. will give digoxin now. not a candidate for anticoagulation due to bleeding Status: Acute (3) Upper GI bleed Assessment & Plan: Mgt as per GI Status: Acute
[2018-02-06] MEDS: Pantoprazole 40 mg Susp UD GT SCH (17:51)
[2018-02-06] MEDS ORDERED: PPN # 2 IV SCH (18:00)
[2018-02-06] MEDS: HYDROmorphone 0.5 mg/0.5 ml ISec IVP PRN (20:17)
--- NOTE | 2018-02-06 23:03 | CP.PCM.PN ---
Subjective - Date & Time of Evaluation Date of Evaluation: 02/06/18 Time of Evaluation: 20:00 - Subjective Subjective: PT SEEN AND EXAMINED Objective - Vital Signs/Intake and Output Vital Signs (last 24 hours): Temp Pulse Resp BP Pulse Ox 97.3 F L 94 H 15 116/62 96 02/06/18 20:00 02/06/18 21:01 02/06/18 21:01 02/06/18 21:01 02/06/18 21:01 Intake and Output: 02/06/18 02/07/18 18:59 06:59 Intake Total 1264 126 Output Total 400 Balance 864 126 - Medications Medications: Current Medications Hydromorphone HCl (Dilaudid) 0.5 mg IVP Q4H PRN PRN Reason: Pain, severe (8-10) Last Admin: 02/06/18 20:17 Dose: 0.5 mg Aztreonam 2 gm/ Sodium (Chloride) 100 mls @ 100 mls/hr IVPB Q8H [facility] PRN Reason: Protocol Last Admin: 02/06/18 22:29 Dose: 100 mls/hr Metronidazole (Flagyl) 500 mg in 100 mls @ 100 mls/hr IVPB Q8 [facility] PRN Reason: Protocol Last Admin: 02/06/18 22:00 Dose: 100 mls/hr Multivitamins/Vitamin C 10 ml/Insulin Human Regular 10 unit / Amino Acids 1, 010.1 mls @ 42 mls/hr IV .Q24H [facility] Stop: 02/07/18 17:59 Last Admin: 02/06/18 17:37 Dose: 42 mls/hr Insulin Aspart (Novolog) 0 unit SC Q6H [facility] PRN Reason: Protocol Last Admin: 02/06/18 17:46 Dose: 4 unit Insulin Glargine (Lantus) 10 unit SC DAILY [facility] Last Admin: 02/06/18 09:41 Dose: 10 units Midodrine (Proamatine) 2.5 mg PO TID [facility] Last Admin: 02/06/18 17:50 Dose: 2.5 mg Multivitamins (Hexavitamin) 1 tab PO DAILY [facility] Last Admin: 02/06/18 09:40 Dose: 1 tab Pantoprazole Sodium (Protonix Susp) 40 mg GT BID [facility] Last Admin: 02/06/18 17:51 Dose: 40 mg - Labs Labs: 02/06/18 06:35 02/06/18 06:36 PT 15.9 SECONDS (9.7-12.2) H 02/04/18 06:22 INR 1.5 02/04/18 06:22 APTT 32 SECONDS (21-34) 02/04/18 06:22 - Constitutional Appears: No Acute Distress, Chronically Ill - Head Exam Head Exam: ATRAUMATIC, NORMAL INSPECTION, NORMOCEPHALIC - Eye Exam Eye Exam: EOMI, Normal appearance, PERRL Pupil Exam: NORMAL ACCOMODATION, PERRL - Respiratory Exam Respiratory Exam: Clear to Ausculation Bilateral, NORMAL BREATHING PATTERN - Cardiovascular Exam Cardiovascular Exam: REGULAR RHYTHM, +S1, +S2. absent: Murmur - GI/Abdominal Exam GI & Abdominal Exam: Soft, Normal Bowel Sounds. absent: Tenderness Assessment and Plan (1) Abdominal pain Status: Acute (2) Hypotension (arterial) Status: Acute (3) Pulmonary embolism Status: Acute (4) Upper GI bleed Status: Acute (5) Acute non-ST elevation myocardial infarction (NSTEMI) Status: Acute (6) CHF (congestive heart failure) Status: Acute (7) Diabetes mellitus Status: Acute (8) Diabetic nephropathy Status: Acute (9) Failure to thrive in adult Status: Acute (10) Intraabdominal fluid collection Status: Acute (11) Pulmonary emboli Status: Suspected
[2018-02-07] MEDS: metroNIDAZOLE IV 500 mg/100 ml 500 MG/100 ML BAG IVPB SCH ×3 (05:45→21:23)
[2018-02-07] MEDS: Aztreonam 2 GM in Sodium Chloride 0.9% 100 ML IVPB SCH ×3 (05:46→21:22)
[2018-02-07] MEDS: (Novolog) Insulin Aspart, Recombinant 100 u/ml 10 ml vial SC SCH ×4 (06:00→17:57)
[2018-02-07 06:35] LABS: BASO % 0.3 % (0.0-2.0); EOS # 0.3 K/uL (0.0-0.7); EOS % 3.2 % (0.0-4.0); HEMOGLOBIN 10.3 g/dL (12.0-18.0); LYMPH # 2.4 K/uL (1.0-4.3); LYMPH % 25.6 % (20.0-40.0); MEAN CELL VOLUME 90.2 fL (80.0-94.0); MEAN CORPUSCULAR HEMOGLOBIN 30.3 pg (27.0-31.0); MEAN CORPUSCULAR HGB CONC 33.6 g/dL (33.0-37.0); MEAN PLATELET VOLUME 9.7 fL (7.2-11.7); MONO # 0.4 K/uL (0.0-0.8); MONO % 4.8 % (0.0-10.0); NEUT # 6.1 K/uL (1.8-7.0); NEUT % 66.1 % (50.0-75.0); NRBC % 0.1 % (0.0-2.0); RBC 3.4 Mil/uL (4.40-5.90); RED CELL DISTRIBUTION WIDTH 19.6 % (11.5-14.5); WHITE BLOOD COUNT 9.3 K/uL (4.8-10.8)
[2018-02-07 06:55] LABS: ALB/GLOB RATIO 0.8 (1.0-2.1); ALBUMIN 2.1 g/dL (3.5-5.0); ALT/SGPT 26 U/L (21-72); AST/SGOT 30 U/L (17-59); BLOOD UREA NITROGEN 21 mg/dL (9-20); CALCIUM 8.9 mg/dl (8.6-10.4); GFR AFRICAN-AMERICAN > 60; GFR NON-AFRICAN AMERICAN > 60
[2018-02-07] MEDS: (Lantus) Insulin Glargine, Recombinant SC SCH (09:56)
[2018-02-07] MEDS: Pantoprazole 40 mg Susp UD GT SCH ×2 (09:57→17:18)
[2018-02-07] MEDS: Multiple Vitamins Tab PO SCH (09:58)
[2018-02-07] MEDS: Metoprolol Succinate 12.5 mg XL PO SCH (09:58)
--- NOTE | 2018-02-07 10:11 | CP.PCM.PN ---
Subjective - Date & Time of Evaluation Date of Evaluation: 02/07/18 Time of Evaluation: 10:08 - Subjective Subjective: CC: GI bleed No further bleeding. Hgb stable On oral PPI Poor appetite. Discussed with RN- patient will eat if puree and if assistance provided Objective - Vital Signs/Intake and Output Vital Signs (last 24 hours): Temp Pulse Resp BP Pulse Ox 98.1 F 95 H 16 102/60 99 02/07/18 04:00 02/07/18 07:01 02/07/18 07:01 02/07/18 07:01 02/07/18 07:01 Intake and Output: 02/07/18 02/07/18 06:59 18:59 Intake Total 884 142 Output Total 450 Balance 434 142 - Medications Medications: Current Medications Hydromorphone HCl (Dilaudid) 0.5 mg IVP Q4H PRN PRN Reason: Pain, severe (8-10) Last Admin: 02/06/18 20:17 Dose: 0.5 mg Aztreonam 2 gm/ Sodium (Chloride) 100 mls @ 100 mls/hr IVPB Q8H [facility] PRN Reason: Protocol Last Admin: 02/07/18 05:46 Dose: 100 mls/hr Metronidazole (Flagyl) 500 mg in 100 mls @ 100 mls/hr IVPB Q8 [facility] PRN Reason: Protocol Last Admin: 02/07/18 05:45 Dose: 100 mls/hr Multivitamins/Vitamin C 10 ml/Insulin Human Regular 10 unit / Amino Acids 1, 010.1 mls @ 42 mls/hr IV .Q24H [facility] Stop: 02/07/18 17:59 Last Admin: 02/06/18 17:37 Dose: 42 mls/hr Insulin Aspart (Novolog) 0 unit SC Q6H [facility] PRN Reason: Protocol Last Admin: 02/07/18 06:00 Dose: Not Given Insulin Glargine (Lantus) 10 unit SC DAILY [facility] Last Admin: 02/07/18 09:56 Dose: 10 units Metoprolol Succinate (Toprol Xl) 12.5 mg PO DAILY [facility] Last Admin: 02/07/18 09:58 Dose: Not Given Midodrine (Proamatine) 2.5 mg PO TID [facility] Last Admin: 02/07/18 09:58 Dose: 2.5 mg Multivitamins (Hexavitamin) 1 tab PO DAILY [facility] Last Admin: 02/07/18 09:58 Dose: 1 tab Pantoprazole Sodium (Protonix Susp) 40 mg GT BID [facility] Last Admin: 02/07/18 09:57 Dose: 40 mg Rosuvastatin Calcium (Crestor) 5 mg PO HS [facility] - Labs Labs: 02/07/18 06:32 02/07/18 06:32 PT 15.9 SECONDS (9.7-12.2) H 02/04/18 06:22 INR 1.5 02/04/18 06:22 APTT 32 SECONDS (21-34) 02/04/18 06:22 - Constitutional Appears: Chronically Ill - Head Exam Head Exam: NORMOCEPHALIC - Respiratory Exam Respiratory Exam: Clear to Ausculation Bilateral - Cardiovascular Exam Cardiovascular Exam: REGULAR RHYTHM - GI/Abdominal Exam GI & Abdominal Exam: Soft. absent: Tenderness Assessment and Plan (1) Abdominal pain Assessment & Plan: Chronic. Stable Status: Acute (2) Pulmonary embolism Status: Acute (3) Upper GI bleed Assessment & Plan: Stable Indefinite PPI recommended If not eating puree, recommend NG insertion and NG feeds (rather than PPN) Status: Acute (4) Acute non-ST elevation myocardial infarction (NSTEMI) Status: Acute (5) Perforated abdominal viscus Status: Acute
[2018-02-07] MEDS ORDERED: PPN#3 IV SCH (18:00)
[2018-02-07] MEDS: traZODone 25 mg Tab PO SCH (21:22)
[2018-02-07] MEDS: HYDROmorphone 0.5 mg/0.5 ml ISec IVP PRN (22:37)
--- NOTE | 2018-02-07 23:58 | CP.PCM.PN ---
Subjective - Date & Time of Evaluation Date of Evaluation: 02/07/18 Time of Evaluation: 18:00 - Subjective Subjective: Pt seen and examined at bedside,pt have LE edema, albumin is low that can be contributing to her LE edema, pt is weak and apetite is poor, i spoke to Laura her power of compliance attorney about her grave prognosis and inabilty to thrive although No further bleeding. Hgb stable On oral PPI Poor appetite. Objective - Vital Signs/Intake and Output Vital Signs (last 24 hours): Temp Pulse Resp BP Pulse Ox 99 F 95 H 17 103/65 97 02/07/18 20:00 02/07/18 20:00 02/07/18 20:00 02/07/18 20:00 02/07/18 20:00 Intake and Output: 02/07/18 02/08/18 18:59 06:59 Intake Total 704 418 Output Total 400 0 Balance 304 418 - Medications Medications: Current Medications Hydromorphone HCl (Dilaudid) 0.5 mg IVP Q4H PRN PRN Reason: Pain, severe (8-10) Last Admin: 02/07/18 22:37 Dose: 0.5 mg Aztreonam 2 gm/ Sodium (Chloride) 100 mls @ 100 mls/hr IVPB Q8H [facility] PRN Reason: Protocol Last Admin: 02/07/18 21:22 Dose: 100 mls/hr Metronidazole (Flagyl) 500 mg in 100 mls @ 100 mls/hr IVPB Q8 [facility] PRN Reason: Protocol Last Admin: 02/07/18 21:23 Dose: 100 mls/hr Multivitamins/Vitamin C 10 ml/Chromium/Copper/Manganese/Zinc 1 ml/ Amino Acids 1,011 mls @ 42 mls/hr IV .Q24H [facility] Stop: 02/08/18 17:59 Last Admin: 02/07/18 17:16 Dose: 42 mls/hr Insulin Aspart (Novolog) 0 unit SC Q6H [facility] PRN Reason: Protocol Last Admin: 02/07/18 17:57 Dose: Not Given Insulin Glargine (Lantus) 10 unit SC DAILY [facility] Last Admin: 02/07/18 09:56 Dose: 10 units Metoprolol Succinate (Toprol Xl) 12.5 mg PO DAILY [facility] Last Admin: 02/07/18 09:58 Dose: Not Given Midodrine (Proamatine) 2.5 mg PO TID [facility] Last Admin: 02/07/18 17:16 Dose: 2.5 mg Multivitamins (Hexavitamin) 1 tab PO DAILY [facility] Last Admin: 02/07/18 09:58 Dose: 1 tab Pantoprazole Sodium (Protonix Susp) 40 mg GT BID [facility] Last Admin: 02/07/18 17:18 Dose: 40 mg Rosuvastatin Calcium (Crestor) 5 mg PO HS [facility] Last Admin: 02/07/18 21:22 Dose: 5 mg Sertraline HCl (Zoloft) 25 mg PO DAILY [facility] Last Admin: 02/07/18 13:22 Dose: 25 mg Trazodone HCl (Desyrel) 25 mg PO HS [facility] Last Admin: 02/07/18 21:22 Dose: 25 mg - Labs Labs: 02/07/18 06:32 02/07/18 06:32 PT 15.9 SECONDS (9.7-12.2) H 02/04/18 06:22 INR 1.5 02/04/18 06:22 APTT 32 SECONDS (21-34) 02/04/18 06:22 - Constitutional Appears: No Acute Distress, Chronically Ill - Head Exam Head Exam: ATRAUMATIC, NORMAL INSPECTION, NORMOCEPHALIC - Eye Exam Eye Exam: EOMI, Normal appearance, PERRL Pupil Exam: NORMAL ACCOMODATION, PERRL - Respiratory Exam Respiratory Exam: Decreased Breath Sounds, Rales - Cardiovascular Exam Cardiovascular Exam: REGULAR RHYTHM, +S1, +S2. absent: Murmur - GI/Abdominal Exam GI & Abdominal Exam: Soft, Normal Bowel Sounds. absent: Tenderness - Rectal Exam Rectal Exam: Deferred Assessment and Plan (1) Abdominal pain Status: Acute (2) Hypotension (arterial) Status: Acute (3) Pulmonary embolism Status: Acute (4) Upper GI bleed Status: Acute (5) Acute non-ST elevation myocardial infarction (NSTEMI) Status: Acute (6) CHF (congestive heart failure) Status: Acute (7) Diabetes mellitus Status: Acute (8) Diabetic nephropathy Status: Acute (9) Failure to thrive in adult Status: Acute (10) Intraabdominal fluid collection Status: Acute (11) Pulmonary emboli Status: Suspected
--- NOTE | 2018-02-08 05:07 | CP.PCM.PN ---
Subjective - Date & Time of Evaluation Date of Evaluation: 02/07/18 Time of Evaluation: 22:35 - Subjective Subjective: Patient seen and evaluated Denies chest pain and dyspnea Poor appetite and not eating well Physical examination - Constitutional Appears: No Acute Distress, Chronically Ill - Head Exam Head Exam: ATRAUMATIC, NORMAL INSPECTION, NORMOCEPHALIC - Eye Exam Eye Exam: EOMI, Normal appearance, PERRL Pupil Exam: NORMAL ACCOMODATION, PERRL - Respiratory Exam Respiratory Exam: Decreased Breath Sounds, Rales - Cardiovascular Exam Cardiovascular Exam: REGULAR RHYTHM, +S1, +S2. absent: Murmur - GI/Abdominal Exam GI & Abdominal Exam: Soft, Normal Bowel Sounds. absent: Tenderness - Rectal Exam Rectal Exam: Deferred Objective - Vital Signs/Intake and Output Vital Signs (last 24 hours): Temp Pulse Resp BP Pulse Ox 97.5 F L 101 H 16 115/78 95 02/08/18 00:00 02/08/18 01:00 02/08/18 00:00 02/08/18 00:00 02/08/18 00:00 Intake and Output: 02/07/18 02/08/18 18:59 06:59 Intake Total 704 586 Output Total 400 0 Balance 304 586 - Medications Medications: Current Medications Hydromorphone HCl (Dilaudid) 0.5 mg IVP Q4H PRN PRN Reason: Pain, severe (8-10) Last Admin: 02/07/18 22:37 Dose: 0.5 mg Aztreonam 2 gm/ Sodium (Chloride) 100 mls @ 100 mls/hr IVPB Q8H [facility] PRN Reason: Protocol Last Admin: 02/07/18 21:22 Dose: 100 mls/hr Metronidazole (Flagyl) 500 mg in 100 mls @ 100 mls/hr IVPB Q8 [facility] PRN Reason: Protocol Last Admin: 02/07/18 21:23 Dose: 100 mls/hr Multivitamins/Vitamin C 10 ml/Chromium/Copper/Manganese/Zinc 1 ml/ Amino Acids 1,011 mls @ 42 mls/hr IV .Q24H [facility] Stop: 02/08/18 17:59 Last Admin: 02/07/18 17:16 Dose: 42 mls/hr Insulin Aspart (Novolog) 0 unit SC Q6H [facility] PRN Reason: Protocol Last Admin: 02/08/18 00:00 Dose: Not Given Insulin Glargine (Lantus) 10 unit SC DAILY [facility] Last Admin: 02/07/18 09:56 Dose: 10 units Metoprolol Succinate (Toprol Xl) 12.5 mg PO DAILY [facility] Last Admin: 02/07/18 09:58 Dose: Not Given Midodrine (Proamatine) 2.5 mg PO TID [facility] Last Admin: 02/07/18 17:16 Dose: 2.5 mg Multivitamins (Hexavitamin) 1 tab PO DAILY [facility] Last Admin: 02/07/18 09:58 Dose: 1 tab Pantoprazole Sodium (Protonix Susp) 40 mg GT BID [facility] Last Admin: 02/07/18 17:18 Dose: 40 mg Rosuvastatin Calcium (Crestor) 5 mg PO HS [facility] Last Admin: 02/07/18 21:22 Dose: 5 mg Sertraline HCl (Zoloft) 25 mg PO DAILY [facility] Last Admin: 02/07/18 13:22 Dose: 25 mg Trazodone HCl (Desyrel) 25 mg PO HS [facility] Last Admin: 02/07/18 21:22 Dose: 25 mg - Labs Labs: 02/07/18 06:32 02/07/18 06:32 PT 15.9 SECONDS (9.7-12.2) H 02/04/18 06:22 INR 1.5 02/04/18 06:22 APTT 32 SECONDS (21-34) 02/04/18 06:22 Assessment and Plan - Assessment and Plan (Free Text) Assessment: (1) CAD (coronary artery disease) Assessment & Plan: not a candidate for CABG medical therapy at present Status: Acute (2) Atrial fibrillation Assessment & Plan: tachcyardic. will give digoxin now. not a candidate for anticoagulation due to bleeding Status: Acute (3) Upper GI bleed Assessment & Plan: Mgt as per GI Status: Acute
[2018-02-08] MEDS: metroNIDAZOLE IV 500 mg/100 ml 500 MG/100 ML BAG IVPB SCH ×3 (05:41→21:42)
[2018-02-08] MEDS: Aztreonam 2 GM in Sodium Chloride 0.9% 100 ML IVPB SCH ×3 (05:42→21:31)
[2018-02-08] MEDS: (Novolog) Insulin Aspart, Recombinant 100 u/ml 10 ml vial SC SCH ×5 (05:43→23:58)
--- NOTE | 2018-02-08 08:31 | CP.PCM.PN ---
Subjective - Date & Time of Evaluation Date of Evaluation: 02/08/18 Time of Evaluation: 08:28 - Subjective Subjective: f/u GI bleed. Pt feeling better. No hematemesis. RN is present. Denies fever, chills, SZ, diarrhea, HOLLAND, cough, RB, melena, hematuria, hemoptysis. + constip x 2 days. Objective - Vital Signs/Intake and Output Vital Signs (last 24 hours): Temp Pulse Resp BP Pulse Ox 98.7 F 93 H 15 104/59 L 95 02/08/18 08:00 02/08/18 08:00 02/08/18 08:00 02/08/18 08:00 02/08/18 08:00 Intake and Output: 02/08/18 02/08/18 06:59 18:59 Intake Total 954 159 Output Total 350 Balance 604 159 - Medications Medications: Current Medications Hydromorphone HCl (Dilaudid) 0.5 mg IVP Q4H PRN PRN Reason: Pain, severe (8-10) Last Admin: 02/07/18 22:37 Dose: 0.5 mg Aztreonam 2 gm/ Sodium (Chloride) 100 mls @ 100 mls/hr IVPB Q8H [facility] PRN Reason: Protocol Last Admin: 02/08/18 05:42 Dose: 100 mls/hr Metronidazole (Flagyl) 500 mg in 100 mls @ 100 mls/hr IVPB Q8 [facility] PRN Reason: Protocol Last Admin: 02/08/18 05:41 Dose: 100 mls/hr Multivitamins/Vitamin C 10 ml/Chromium/Copper/Manganese/Zinc 1 ml/ Amino Acids 1,011 mls @ 42 mls/hr IV .Q24H [facility] Stop: 02/08/18 17:59 Last Admin: 02/07/18 17:16 Dose: 42 mls/hr Insulin Aspart (Novolog) 0 unit SC Q6H [facility] PRN Reason: Protocol Last Admin: 02/08/18 05:43 Dose: 3 unit Insulin Glargine (Lantus) 10 unit SC DAILY [facility] Last Admin: 02/07/18 09:56 Dose: 10 units Metoprolol Succinate (Toprol Xl) 12.5 mg PO DAILY [facility] Last Admin: 02/07/18 09:58 Dose: Not Given Midodrine (Proamatine) 2.5 mg PO TID [facility] Last Admin: 02/07/18 17:16 Dose: 2.5 mg Multivitamins (Hexavitamin) 1 tab PO DAILY [facility] Last Admin: 02/07/18 09:58 Dose: 1 tab Pantoprazole Sodium (Protonix Susp) 40 mg GT BID [facility] Last Admin: 02/07/18 17:18 Dose: 40 mg Rosuvastatin Calcium (Crestor) 5 mg PO HS [facility] Last Admin: 02/07/18 21:22 Dose: 5 mg Sertraline HCl (Zoloft) 25 mg PO DAILY [facility] Last Admin: 02/07/18 13:22 Dose: 25 mg Trazodone HCl (Desyrel) 25 mg PO HS [facility] Last Admin: 02/07/18 21:22 Dose: 25 mg - Labs Labs: 02/07/18 06:32 02/07/18 06:32 PT 15.9 SECONDS (9.7-12.2) H 02/04/18 06:22 INR 1.5 02/04/18 06:22 APTT 32 SECONDS (21-34) 02/04/18 06:22 - Constitutional Appears: Non-toxic - Neck Exam Neck Exam: absent: Tenderness - Respiratory Exam Respiratory Exam: Clear to Ausculation Bilateral - Cardiovascular Exam Cardiovascular Exam: RRR - GI/Abdominal Exam GI & Abdominal Exam: Soft, Normal Bowel Sounds. absent: Rigid, Tenderness, Mass - Extremities Exam Extremities Exam: absent: Calf Tenderness - Neurological Exam Neurological Exam: Alert, Awake Assessment and Plan (1) Upper GI bleed Assessment & Plan: No bleeding.. Hb is stable. Status: Acute (2) Constipation Assessment & Plan: add colace Status: Acute (3) Abdominal pain Assessment & Plan: better Status: Acute (4) Hypotension (arterial) Status: Acute (5) Pulmonary embolism Status: Acute (6) Acute non-ST elevation myocardial infarction (NSTEMI) Status: Acute (7) Diabetes mellitus Status: Acute (8) GERD (gastroesophageal reflux disease) Status: Acute (9) Perforated abdominal viscus Status: Acute (10) Sepsis associated hypotension Status: Acute (11) Status post exploratory laparotomy Status: Acute (12) Abnormal CT of the abdomen Assessment & Plan: collection. Status: Acute
[2018-02-08] MEDS: Pantoprazole 40 mg Susp UD GT SCH ×2 (10:30→17:59)
[2018-02-08] MEDS: Multiple Vitamins Tab PO SCH (10:30)
[2018-02-08] MEDS: Metoprolol Succinate 12.5 mg XL PO SCH (10:32)
[2018-02-08] MEDS: (Lantus) Insulin Glargine, Recombinant SC SCH (10:56)
[2018-02-08] MEDS ORDERED: PPN # 4 IV SCH (18:00)
--- NOTE | 2018-02-08 20:29 | CP.PCM.PN ---
Subjective - Date & Time of Evaluation Date of Evaluation: 02/08/18 Time of Evaluation: 10:25 - Subjective Subjective: Patient seen and evaluated Denies chest pain and dyspnea Poor appetite and not eating well Physical examination - Constitutional Appears: No Acute Distress, Chronically Ill - Head Exam Head Exam: ATRAUMATIC, NORMAL INSPECTION, NORMOCEPHALIC - Eye Exam Eye Exam: EOMI, Normal appearance, PERRL Pupil Exam: NORMAL ACCOMODATION, PERRL - Respiratory Exam Respiratory Exam: Decreased Breath Sounds, Rales - Cardiovascular Exam Cardiovascular Exam: REGULAR RHYTHM, +S1, +S2. absent: Murmur - GI/Abdominal Exam GI & Abdominal Exam: Soft, Normal Bowel Sounds. absent: Tenderness - Rectal Exam Rectal Exam: Deferred Objective - Vital Signs/Intake and Output Vital Signs (last 24 hours): Temp Pulse Resp BP Pulse Ox 98.2 F 84 16 124/71 96 02/08/18 20:00 02/08/18 20:00 02/08/18 20:00 02/08/18 20:00 02/08/18 20:00 Intake and Output: 02/08/18 02/09/18 18:59 06:59 Intake Total 929 84 Balance 929 84 - Medications Medications: Current Medications Docusate Sodium (Colace) 100 mg PO BID [facility] Last Admin: 02/08/18 17:59 Dose: 100 mg Hydromorphone HCl (Dilaudid) 0.5 mg IVP Q4H PRN PRN Reason: Pain, severe (8-10) Last Admin: 02/07/18 22:37 Dose: 0.5 mg Aztreonam 2 gm/ Sodium (Chloride) 100 mls @ 100 mls/hr IVPB Q8H [facility] PRN Reason: Protocol Last Admin: 02/08/18 15:15 Dose: 100 mls/hr Metronidazole (Flagyl) 500 mg in 100 mls @ 100 mls/hr IVPB Q8 [facility] PRN Reason: Protocol Last Admin: 02/08/18 14:00 Dose: 100 mls/hr Multivitamins/Vitamin C 10 ml/Chromium/Copper/Manganese/Zinc 1 ml/ Amino Acids 1,011 mls @ 42 mls/hr IV .Q24H [facility] Stop: 02/09/18 17:59 Last Admin: 02/08/18 18:01 Dose: 42 mls/hr Insulin Aspart (Novolog) 0 unit SC Q6H [facility] PRN Reason: Protocol Last Admin: 02/08/18 17:59 Dose: 3 unit Insulin Glargine (Lantus) 10 unit SC DAILY [facility] Last Admin: 02/08/18 10:56 Dose: 10 units Metoprolol Succinate (Toprol Xl) 12.5 mg PO DAILY [facility] Last Admin: 02/08/18 10:32 Dose: 12.5 mg Midodrine (Proamatine) 2.5 mg PO TID [facility] Last Admin: 02/08/18 17:59 Dose: 2.5 mg Multivitamins (Hexavitamin) 1 tab PO DAILY [facility] Last Admin: 02/08/18 10:30 Dose: 1 tab Pantoprazole Sodium (Protonix Susp) 40 mg GT BID [facility] Last Admin: 02/08/18 17:59 Dose: 40 mg Rosuvastatin Calcium (Crestor) 5 mg PO HS [facility] Last Admin: 02/07/18 21:22 Dose: 5 mg Sertraline HCl (Zoloft) 25 mg PO DAILY [facility] Last Admin: 02/08/18 10:30 Dose: 25 mg Trazodone HCl (Desyrel) 25 mg PO HS [facility] Last Admin: 02/07/18 21:22 Dose: 25 mg - Labs Labs: 02/07/18 06:32 02/07/18 06:32 PT 15.9 SECONDS (9.7-12.2) H 02/04/18 06:22 INR 1.5 02/04/18 06:22 APTT 32 SECONDS (21-34) 02/04/18 06:22 Assessment and Plan - Assessment and Plan (Free Text) Assessment: (1) CAD (coronary artery disease) Assessment & Plan: not a candidate for CABG medical therapy at present Status: Acute (2) Atrial fibrillation Assessment & Plan: tachcyardic. will give digoxin now. not a candidate for anticoagulation due to bleeding Status: Acute (3) Upper GI bleed Assessment & Plan: Mgt as per GI Status: Acute
[2018-02-08] MEDS: traZODone 25 mg Tab PO SCH (21:33)
--- NOTE | 2018-02-08 23:20 | CP.PCM.PN ---
Subjective - Date & Time of Evaluation Date of Evaluation: 02/08/18 Time of Evaluation: 18:35 - Subjective Subjective: PT SEEN AND Examined,, is weak, on peripheral parental nutrition,he is afebrile , no sob, nausea, vomitting, he is also found to be have DVT in UE at site of catherer Objective - Vital Signs/Intake and Output Vital Signs (last 24 hours): Temp Pulse Resp BP Pulse Ox 98.2 F 84 16 124/71 96 02/08/18 20:00 02/08/18 20:00 02/08/18 20:00 02/08/18 20:00 02/08/18 20:00 Intake and Output: 02/08/18 02/09/18 18:59 06:59 Intake Total 929 418 Balance 929 418 - Medications Medications: Current Medications Docusate Sodium (Colace) 100 mg PO BID [facility] Last Admin: 02/08/18 17:59 Dose: 100 mg Hydromorphone HCl (Dilaudid) 0.5 mg IVP Q4H PRN PRN Reason: Pain, severe (8-10) Last Admin: 02/07/18 22:37 Dose: 0.5 mg Aztreonam 2 gm/ Sodium (Chloride) 100 mls @ 100 mls/hr IVPB Q8H [facility] PRN Reason: Protocol Last Admin: 02/08/18 21:31 Dose: 100 mls/hr Metronidazole (Flagyl) 500 mg in 100 mls @ 100 mls/hr IVPB Q8 [facility] PRN Reason: Protocol Last Admin: 02/08/18 21:42 Dose: 100 mls/hr Multivitamins/Vitamin C 10 ml/Chromium/Copper/Manganese/Zinc 1 ml/ Amino Acids 1,011 mls @ 42 mls/hr IV .Q24H [facility] Stop: 02/09/18 17:59 Last Admin: 02/08/18 18:01 Dose: 42 mls/hr Insulin Aspart (Novolog) 0 unit SC Q6H [facility] PRN Reason: Protocol Last Admin: 02/08/18 17:59 Dose: 3 unit Insulin Glargine (Lantus) 10 unit SC DAILY [facility] Last Admin: 02/08/18 10:56 Dose: 10 units Metoprolol Succinate (Toprol Xl) 12.5 mg PO DAILY [facility] Last Admin: 02/08/18 10:32 Dose: 12.5 mg Midodrine (Proamatine) 2.5 mg PO TID [facility] Last Admin: 02/08/18 17:59 Dose: 2.5 mg Multivitamins (Hexavitamin) 1 tab PO DAILY [facility] Last Admin: 02/08/18 10:30 Dose: 1 tab Pantoprazole Sodium (Protonix Susp) 40 mg GT BID [facility] Last Admin: 02/08/18 17:59 Dose: 40 mg Rosuvastatin Calcium (Crestor) 5 mg PO HS [facility] Last Admin: 02/08/18 21:33 Dose: 5 mg Sertraline HCl (Zoloft) 25 mg PO DAILY [facility] Last Admin: 02/08/18 10:30 Dose: 25 mg Trazodone HCl (Desyrel) 25 mg PO HS [facility] Last Admin: 02/08/18 21:33 Dose: 25 mg - Labs Labs: 02/07/18 06:32 02/07/18 06:32 PT 15.9 SECONDS (9.7-12.2) H 02/04/18 06:22 INR 1.5 02/04/18 06:22 APTT 32 SECONDS (21-34) 02/04/18 06:22 - Constitutional Appears: No Acute Distress, Chronically Ill - Head Exam Head Exam: ATRAUMATIC, NORMAL INSPECTION, NORMOCEPHALIC - Eye Exam Eye Exam: EOMI, Normal appearance, PERRL Pupil Exam: NORMAL ACCOMODATION, PERRL - Respiratory Exam Respiratory Exam: Decreased Breath Sounds, Rales, Rhonchi - Cardiovascular Exam Cardiovascular Exam: REGULAR RHYTHM, +S1, +S2. absent: Murmur - GI/Abdominal Exam GI & Abdominal Exam: Soft, Normal Bowel Sounds. absent: Tenderness - Rectal Exam Rectal Exam: Deferred Assessment and Plan (1) Abdominal pain Status: Acute (2) Hypotension (arterial) Status: Acute (3) Pulmonary embolism Status: Acute (4) Upper GI bleed Status: Acute (5) Acute non-ST elevation myocardial infarction (NSTEMI) Status: Acute (6) CHF (congestive heart failure) Status: Acute (7) Diabetes mellitus Status: Acute (8) Diabetic nephropathy Status: Acute (9) Failure to thrive in adult Status: Acute (10) Intraabdominal fluid collection Status: Acute (11) Pulmonary emboli Status: Suspected (12) DVT of upper extremity (deep vein thrombosis) Status: Acute - Assessment and Plan (Free Text) Plan: Monitor pt current medications continued TPN
[2018-02-08] MEDS: HYDROmorphone 0.5 mg/0.5 ml ISec IVP PRN (23:31)
--- NOTE | 2018-02-09 03:27 | CARD ---
APPROVED REPORT EKG Measurement Heart [id number] <Conclusion> Atrial fibrillation with rapid ventricular response Left anterior fascicular block Possible Lateral infarct, age undetermined Cannot rule out Inferior infarct (masked by fascicular block?), age undetermined Abnormal ECG
[2018-02-09] MEDS: metroNIDAZOLE IV 500 mg/100 ml 500 MG/100 ML BAG IVPB SCH (05:37)
[2018-02-09] MEDS: Aztreonam 2 GM in Sodium Chloride 0.9% 100 ML IVPB SCH (05:38)
[2018-02-09] MEDS: (Novolog) Insulin Aspart, Recombinant 100 u/ml 10 ml vial SC SCH ×3 (05:39→18:17)
[2018-02-09] MEDS: HYDROmorphone 0.5 mg/0.5 ml ISec IVP PRN (08:17)
[2018-02-09] MEDS: Metoprolol Succinate 12.5 mg XL PO SCH (09:35)
[2018-02-09] MEDS: Pantoprazole 40 mg Susp UD GT SCH (09:35)
[2018-02-09] MEDS: Multiple Vitamins Tab PO SCH (09:35)
[2018-02-09] MEDS: (Lantus) Insulin Glargine, Recombinant SC SCH (09:36)
--- NOTE | 2018-02-09 10:31 | VASCLAB ---
PROCEDURE: Upper Extremity Venous Duplex Exam HISTORY: Edema PRIORS: None. TECHNIQUE: Bilateral upper extremity, internal jugular, subclavian, axillary, brachial, ulnar, radial, basilic and upper cephalic veins were evaluated. Flow was assessed with color Doppler, compressibility, assessment of phasic flow and augmentation response. Report prepared by JAIDA Lofton, RVT FINDINGS: RIGHT: 1. Internal Jugular: 1.1. Compressibility - Fully compressible: Thrombus - None : Flow - Phasic: Augmentation -Normal: Reflux - None. 2. Subclavian: 2.1. Compressibility - Partial: Thrombus - Acute : Flow - Absent : Augmentation -None: Reflux - None. 3. Axillary: 3.1. Compressibility - Partial: Thrombus - Acute : Flow - Absent : Augmentation -None: Reflux - None. 4. Brachial: 4.1. Compressibility - Partial: Thrombus - Acute: Flow - Absent : Augmentation -None: Reflux - None. 5. Ulnar: 5.1. Compressibility - Fully compressible: Thrombus - None: Flow - Phasic: Augmentation -Normal: Reflux - None. 6. Radial: 6.1. Compressibility - Fully compressible: Thrombus - None: Flow - Phasic: Augmentation - Normal: Reflux - None. 7. Cephalic: 7.1. Compressibility - Fully compressible: Thrombus - None: Flow - Phasic: Augmentation -Normal: Reflux - None. 8. Basilic: 8.1. Compressibility - Partial: Thrombus - Acute: Flow - Absent : Augmentation -None: Reflux - None. LEFT: 1. Internal Jugular: 1.1. Compressibility - Fully compressible: Thrombus - None : Flow - Phasic: Augmentation -Normal: Reflux - None. 2. Subclavian: 2.1. Compressibility - Fully compressible: Thrombus - None : Flow - Phasic: Augmentation -Normal: Reflux - None. 3. Axillary: 3.1. Compressibility - Fully compressible: Thrombus - None : Flow - Phasic: Augmentation -Normal: Reflux - None. 4. Brachial: 4.1. Compressibility - Fully compressible: Thrombus - None: Flow - Phasic: Augmentation -Normal: Reflux - None. 5. Ulnar: 5.1. Compressibility - Fully compressible: Thrombus - None: Flow - Phasic: Augmentation -Normal: Reflux - None. 6. Radial: 6.1. Compressibility - Fully compressible: Thrombus - None: Flow - Phasic: Augmentation - Normal: Reflux - None. 7. Cephalic: 7.1. Compressibility - Partial: Thrombus - Acute: Flow - Absent : Augmentation -None: Reflux - None. 8. Basilic: 8.1. Compressibility - Partial: Thrombus - Acute: Flow - Absent : Augmentation -None: Reflux - None. OTHER FINDINGS: Right: None. Left: None. IMPRESSION: Right: Occlusive acute thrombosis of the right subclavian, axillary, brachial and basilic veins with severe reduction of the venous return. Left: Occlusive superficial acute thrombosis of the left cephalic and basilic veins with severe reduction of the venous return. No evidence of deep vein thrombosis of the left upper extremity with excellent venous flow. Normal valve function noted of the left side. Findings were reported to ICU nurse Homa at 3: 00 p.m.
--- NOTE | 2018-02-09 14:29 | CP.PCM.PN ---
Subjective - Date & Time of Evaluation Date of Evaluation: 02/09/18 Time of Evaluation: 14:27 - Subjective Subjective: CC: follow up GI Bled, duodenal ulcer No further signs of bleeding, stable hemodynamics Ate 50-75% of meals past 12 hours Objective - Vital Signs/Intake and Output Vital Signs (last 24 hours): Temp Pulse Resp BP Pulse Ox 98.3 F 96 H 12 101/65 97 02/09/18 12:00 02/09/18 12:00 02/09/18 12:00 02/09/18 12:00 02/09/18 12:00 Intake and Output: 02/09/18 02/09/18 06:59 18:59 Intake Total 1004 554 Output Total 1000 10 Balance 4 544 - Medications Medications: Current Medications Docusate Sodium (Colace) 100 mg PO BID [facility] Last Admin: 02/09/18 09:35 Dose: 100 mg Hydromorphone HCl (Dilaudid) 0.5 mg IVP Q4H PRN PRN Reason: Pain, severe (8-10) Last Admin: 02/09/18 08:17 Dose: 0.5 mg Multivitamins/Vitamin C 10 ml/Chromium/Copper/Manganese/Zinc 1 ml/ Amino Acids 1,011 mls @ 42 mls/hr IV .Q24H [facility] Stop: 02/09/18 17:59 Last Admin: 02/08/18 18:01 Dose: 42 mls/hr Multivitamins/Vitamin C 10 ml/Chromium/Copper/Manganese/Zinc 1 ml/ Amino Acids 1,011 mls @ 42 mls/hr IV .Q24H [facility] Stop: 02/10/18 17:59 Insulin Aspart (Novolog) 0 unit SC Q6H [facility] PRN Reason: Protocol Last Admin: 02/09/18 12:00 Dose: 4 unit Insulin Glargine (Lantus) 10 unit SC DAILY [facility] Last Admin: 02/09/18 09:36 Dose: 10 units Metoprolol Succinate (Toprol Xl) 12.5 mg PO DAILY [facility] Last Admin: 02/09/18 09:35 Dose: 12.5 mg Midodrine (Proamatine) 2.5 mg PO TID [facility] Last Admin: 02/09/18 13:17 Dose: 2.5 mg Multivitamins (Hexavitamin) 1 tab PO DAILY [facility] Last Admin: 02/09/18 09:35 Dose: 1 tab Pantoprazole Sodium (Protonix Susp) 40 mg PO BID [facility] Rosuvastatin Calcium (Crestor) 5 mg PO HS [facility] Last Admin: 02/08/18 21:33 Dose: 5 mg Sertraline HCl (Zoloft) 25 mg PO DAILY [facility] Last Admin: 02/09/18 09:36 Dose: 25 mg Trazodone HCl (Desyrel) 25 mg PO HS [facility] Last Admin: 02/08/18 21:33 Dose: 25 mg - Labs Labs: 02/07/18 06:32 02/07/18 06:32 PT 15.9 SECONDS (9.7-12.2) H 02/04/18 06:22 INR 1.5 02/04/18 06:22 APTT 32 SECONDS (21-34) 02/04/18 06:22 - Constitutional Appears: Chronically Ill - Head Exam Head Exam: NORMOCEPHALIC - Eye Exam Eye Exam: absent: Scleral icterus - Respiratory Exam Respiratory Exam: NORMAL BREATHING PATTERN - Cardiovascular Exam Cardiovascular Exam: REGULAR RHYTHM - GI/Abdominal Exam GI & Abdominal Exam: Soft. absent: Tenderness Assessment and Plan (1) Abdominal pain Status: Acute (2) Pulmonary embolism Status: Acute (3) Upper GI bleed Assessment & Plan: Stable Continue protonix Monitor PO intake.Recommend nutritional supplements. If needed, NG feeds. Status: Acute (4) Acute non-ST elevation myocardial infarction (NSTEMI) Status: Acute (5) Perforated abdominal viscus Status: Acute
[2018-02-09] MEDS: Pantoprazole 40 mg Susp UD PO SCH (17:43)
[2018-02-09] MEDS ORDERED: PPN # 5 IV SCH (18:00)
[2018-02-09] MEDS: traZODone 25 mg Tab PO SCH (21:21)
[2018-02-10] MEDS: (Novolog) Insulin Aspart, Recombinant 100 u/ml 10 ml vial SC SCH ×4 (00:09→18:12)
--- NOTE | 2018-02-10 01:38 | CP.PCM.PN ---
Subjective - Date & Time of Evaluation Date of Evaluation: 02/09/18 Time of Evaluation: 17:10 - Subjective Subjective: Patient seen and evaluated Denies chest pain and dyspnea Physical examination - Constitutional Appears: No Acute Distress, Chronically Ill - Head Exam Head Exam: ATRAUMATIC, NORMAL INSPECTION, NORMOCEPHALIC - Eye Exam Eye Exam: EOMI, Normal appearance, PERRL Pupil Exam: NORMAL ACCOMODATION, PERRL - Respiratory Exam Respiratory Exam: Decreased Breath Sounds, Rales - Cardiovascular Exam Cardiovascular Exam: REGULAR RHYTHM, +S1, +S2. absent: Murmur - GI/Abdominal Exam GI & Abdominal Exam: Soft, Normal Bowel Sounds. absent: Tenderness - Rectal Exam Rectal Exam: Deferred Objective - Vital Signs/Intake and Output Vital Signs (last 24 hours): Temp Pulse Resp BP Pulse Ox 98.8 F 81 16 108/63 96 02/09/18 20:00 02/09/18 20:00 02/09/18 20:00 02/09/18 20:00 02/09/18 20:00 Intake and Output: 02/09/18 02/10/18 18:59 06:59 Intake Total 882 302 Output Total 310 Balance 572 302 - Medications Medications: Current Medications Docusate Sodium (Colace) 100 mg PO BID [facility] Last Admin: 02/09/18 17:43 Dose: 100 mg Hydromorphone HCl (Dilaudid) 0.5 mg IVP Q4H PRN PRN Reason: Pain, severe (8-10) Last Admin: 02/09/18 08:17 Dose: 0.5 mg Multivitamins/Vitamin C 10 ml/Chromium/Copper/Manganese/Zinc 1 ml/ Amino Acids 1,011 mls @ 42 mls/hr IV .Q24H [facility] Stop: 02/10/18 17:59 Last Admin: 02/09/18 17:44 Dose: 42 mls/hr Insulin Aspart (Novolog) 0 unit SC Q6H [facility] PRN Reason: Protocol Last Admin: 02/10/18 00:09 Dose: Not Given Insulin Glargine (Lantus) 10 unit SC DAILY [facility] Last Admin: 02/09/18 09:36 Dose: 10 units Metoprolol Succinate (Toprol Xl) 12.5 mg PO DAILY [facility] Last Admin: 02/09/18 09:35 Dose: 12.5 mg Midodrine (Proamatine) 2.5 mg PO TID [facility] Last Admin: 02/09/18 17:43 Dose: 2.5 mg Multivitamins (Hexavitamin) 1 tab PO DAILY [facility] Last Admin: 02/09/18 09:35 Dose: 1 tab Pantoprazole Sodium (Protonix Susp) 40 mg PO BID [facility] Last Admin: 02/09/18 17:43 Dose: 40 mg Rosuvastatin Calcium (Crestor) 5 mg PO HS [facility] Last Admin: 02/09/18 21:22 Dose: 5 mg Sertraline HCl (Zoloft) 25 mg PO DAILY [facility] Last Admin: 02/09/18 09:36 Dose: 25 mg Trazodone HCl (Desyrel) 25 mg PO [facility] Last Admin: 02/09/18 21:21 Dose: 25 mg - Labs Labs: 02/07/18 06:32 02/07/18 06:32 PT 15.9 SECONDS (9.7-12.2) H 02/04/18 06:22 INR 1.5 02/04/18 06:22 APTT 32 SECONDS (21-34) 02/04/18 06:22 Assessment and Plan - Assessment and Plan (Free Text) Assessment: (1) CAD (coronary artery disease) Assessment & Plan: not a candidate for CABG medical therapy at present Status: Acute (2) Atrial fibrillation Assessment & Plan: tachcyardic. will give digoxin now. not a candidate for anticoagulation due to bleeding Status: Acute (3) Upper GI bleed Assessment & Plan: Mgt as per GI Status: Acute
--- NOTE | 2018-02-10 03:52 | CP.PCM.PN ---
Subjective - Date & Time of Evaluation Date of Evaluation: 02/09/18 Time of Evaluation: 19:00 - Subjective Subjective: Pt seen and evaluated, is weak, on peripheral parental nutrition,he is afebrile , no sob, nausea, vomitting, he is also found to be have DVT in UE at site of catherer Objective - Vital Signs/Intake and Output Vital Signs (last 24 hours): Temp Pulse Resp BP Pulse Ox 98.2 F 81 17 100/55 L 96 02/10/18 00:00 02/10/18 01:00 02/10/18 00:00 02/10/18 00:00 02/10/18 00:00 Intake and Output: 02/09/18 02/10/18 18:59 06:59 Intake Total 882 386 Output Total 310 Balance 572 386 - Medications Medications: Current Medications Docusate Sodium (Colace) 100 mg PO BID [facility] Last Admin: 02/09/18 17:43 Dose: 100 mg Hydromorphone HCl (Dilaudid) 0.5 mg IVP Q4H PRN PRN Reason: Pain, severe (8-10) Last Admin: 02/09/18 08:17 Dose: 0.5 mg Multivitamins/Vitamin C 10 ml/Chromium/Copper/Manganese/Zinc 1 ml/ Amino Acids 1,011 mls @ 42 mls/hr IV .Q24H [facility] Stop: 02/10/18 17:59 Last Admin: 02/09/18 17:44 Dose: 42 mls/hr Insulin Aspart (Novolog) 0 unit SC Q6H [facility] PRN Reason: Protocol Last Admin: 02/10/18 00:09 Dose: Not Given Insulin Glargine (Lantus) 10 unit SC DAILY [facility] Last Admin: 02/09/18 09:36 Dose: 10 units Metoprolol Succinate (Toprol Xl) 12.5 mg PO DAILY [facility] Last Admin: 02/09/18 09:35 Dose: 12.5 mg Midodrine (Proamatine) 2.5 mg PO TID [facility] Last Admin: 02/09/18 17:43 Dose: 2.5 mg Multivitamins (Hexavitamin) 1 tab PO DAILY [facility] Last Admin: 02/09/18 09:35 Dose: 1 tab Pantoprazole Sodium (Protonix Susp) 40 mg PO BID [facility] Last Admin: 02/09/18 17:43 Dose: 40 mg Rosuvastatin Calcium (Crestor) 5 mg PO HS [facility] Last Admin: 02/09/18 21:22 Dose: 5 mg Sertraline HCl (Zoloft) 25 mg PO DAILY [facility] Last Admin: 02/09/18 09:36 Dose: 25 mg Trazodone HCl (Desyrel) 25 mg PO HS [facility] Last Admin: 02/09/18 21:21 Dose: 25 mg - Labs Labs: 02/07/18 06:32 02/07/18 06:32 PT 15.9 SECONDS (9.7-12.2) H 02/04/18 06:22 INR 1.5 02/04/18 06:22 APTT 32 SECONDS (21-34) 02/04/18 06:22 - Constitutional Appears: Chronically Ill, Other (weak, emaciated) - Eye Exam Eye Exam: EOMI, Normal appearance, PERRL Pupil Exam: NORMAL ACCOMODATION, PERRL - Respiratory Exam Respiratory Exam: Accessory Muscle Use, Rhonchi - Cardiovascular Exam Cardiovascular Exam: REGULAR RHYTHM, +S1, +S2. absent: Murmur - GI/Abdominal Exam GI & Abdominal Exam: Soft, Normal Bowel Sounds. absent: Tenderness Assessment and Plan (1) Abdominal pain Status: Acute (2) Hypotension (arterial) Status: Acute (3) Pulmonary embolism Status: Acute (4) Upper GI bleed Status: Acute (5) Acute non-ST elevation myocardial infarction (NSTEMI) Status: Acute (6) CHF (congestive heart failure) Status: Acute (7) Diabetes mellitus Status: Acute (8) Diabetic nephropathy Status: Acute (9) Failure to thrive in adult Status: Acute (10) Intraabdominal fluid collection Status: Acute (11) Pulmonary emboli Status: Suspected - Assessment and Plan (Free Text) Plan: continue medical managment parental nutrition
--- NOTE | 2018-02-10 06:02 | CP.PCM.PN ---
Subjective - Date & Time of Evaluation Date of Evaluation: 02/10/18 Time of Evaluation: 19:00 - Subjective Subjective: Pt is seen and examined today Objective - Vital Signs/Intake and Output Vital Signs (last 24 hours): Temp Pulse Resp BP Pulse Ox 98.7 F 88 16 109/56 L 98 02/10/18 04:00 02/10/18 04:00 02/10/18 04:00 02/10/18 04:00 02/10/18 04:00 Intake and Output: 02/09/18 02/10/18 18:59 06:59 Intake Total 882 554 Output Total 310 950 Balance 572 -396 - Medications Medications: Current Medications Docusate Sodium (Colace) 100 mg PO BID [facility] Last Admin: 02/09/18 17:43 Dose: 100 mg Hydromorphone HCl (Dilaudid) 0.5 mg IVP Q4H PRN PRN Reason: Pain, severe (8-10) Last Admin: 02/09/18 08:17 Dose: 0.5 mg Multivitamins/Vitamin C 10 ml/Chromium/Copper/Manganese/Zinc 1 ml/ Amino Acids 1,011 mls @ 42 mls/hr IV .Q24H [facility] Stop: 02/10/18 17:59 Last Admin: 02/09/18 17:44 Dose: 42 mls/hr Insulin Aspart (Novolog) 0 unit SC Q6H [facility] PRN Reason: Protocol Last Admin: 02/10/18 05:54 Dose: Not Given Insulin Glargine (Lantus) 10 unit SC DAILY [facility] Last Admin: 02/09/18 09:36 Dose: 10 units Metoprolol Succinate (Toprol Xl) 12.5 mg PO DAILY [facility] Last Admin: 02/09/18 09:35 Dose: 12.5 mg Midodrine (Proamatine) 2.5 mg PO TID [facility] Last Admin: 02/09/18 17:43 Dose: 2.5 mg Multivitamins (Hexavitamin) 1 tab PO DAILY [facility] Last Admin: 02/09/18 09:35 Dose: 1 tab Pantoprazole Sodium (Protonix Susp) 40 mg PO BID [facility] Last Admin: 02/09/18 17:43 Dose: 40 mg Rosuvastatin Calcium (Crestor) 5 mg PO [facility] Last Admin: 06/01/18 21:22 Dose: 5 mg Sertraline HCl (Zoloft) 25 mg PO DAILY [facility] Last Admin: 02/09/18 09:36 Dose: 25 mg Trazodone HCl (Desyrel) 25 mg PO HS [facility] Last Admin: 02/09/18 21:21 Dose: 25 mg - Labs Labs: 02/07/18 06:32 02/07/18 06:32 PT 15.9 SECONDS (9.7-12.2) H 02/04/18 06:22 INR 1.5 02/04/18 06:22 APTT 32 SECONDS (21-34) 02/04/18 06:22 Assessment and Plan (1) Abdominal pain Status: Acute (2) Hypotension (arterial) Status: Acute (3) Pulmonary embolism Status: Acute (4) Upper GI bleed Status: Acute (5) Acute non-ST elevation myocardial infarction (NSTEMI) Status: Acute (6) CHF (congestive heart failure) Status: Acute (7) Diabetes mellitus Status: Acute (8) Diabetic nephropathy Status: Acute (9) Failure to thrive in adult Status: Acute (10) Intraabdominal fluid collection Status: Acute (11) Pulmonary emboli Status: Suspected
[2018-02-10] MEDS: (Lantus) Insulin Glargine, Recombinant SC SCH (09:38)
[2018-02-10] MEDS: Metoprolol Succinate 12.5 mg XL PO SCH (09:38)
[2018-02-10] MEDS: Pantoprazole 40 mg Susp UD PO SCH ×2 (09:38→17:43)
--- NOTE | 2018-02-10 11:23 | CP.PCM.PN ---
Subjective - Date & Time of Evaluation Date of Evaluation: 02/10/18 Time of Evaluation: 11:21 - Subjective Subjective: Patient is lethargic this morning. He complains of abdominal pain during palpation of the abdomen. Objective - Vital Signs/Intake and Output Vital Signs (last 24 hours): Temp Pulse Resp BP Pulse Ox 98.4 F 80 17 103/56 L 96 02/10/18 08:00 02/10/18 08:14 02/10/18 08:00 02/10/18 08:00 02/10/18 08:00 Intake and Output: 02/10/18 02/10/18 06:59 18:59 Intake Total 554 318 Output Total 950 Balance -396 318 - Medications Medications: Current Medications Docusate Sodium (Colace) 100 mg PO BID [facility] Last Admin: 02/10/18 09:38 Dose: 100 mg Hydromorphone HCl (Dilaudid) 0.5 mg IVP Q4H PRN PRN Reason: Pain, severe (8-10) Last Admin: 02/09/18 08:17 Dose: 0.5 mg Multivitamins/Vitamin C 10 ml/Chromium/Copper/Manganese/Zinc 1 ml/ Amino Acids 1,011 mls @ 42 mls/hr IV .Q24H [facility] Stop: 02/10/18 17:59 Last Admin: 02/09/18 17:44 Dose: 42 mls/hr Multivitamins/Vitamin C 10 ml/Chromium/Copper/Manganese/Zinc 1 ml/ Amino Acids 1,011 mls @ 42 mls/hr IV .Q24H [facility] Stop: 02/11/18 17:59 Insulin Aspart (Novolog) 0 unit SC Q6H [facility] PRN Reason: Protocol Last Admin: 02/10/18 05:54 Dose: Not Given Insulin Glargine (Lantus) 10 unit SC DAILY [facility] Last Admin: 02/10/18 09:38 Dose: 10 units Metoprolol Succinate (Toprol Xl) 12.5 mg PO DAILY [facility] Last Admin: 02/10/18 09:38 Dose: Not Given Midodrine (Proamatine) 2.5 mg PO TID [facility] Last Admin: 02/10/18 09:38 Dose: 2.5 mg Multivitamins (Hexavitamin) 1 tab PO DAILY [facility] Last Admin: 06/01/18 09:35 Dose: 1 tab Pantoprazole Sodium (Protonix Susp) 40 mg PO BID [facility] Last Admin: 02/10/18 09:38 Dose: 40 mg Rosuvastatin Calcium (Crestor) 5 mg PO HS [facility] Last Admin: 02/09/18 21:22 Dose: 5 mg Sertraline HCl (Zoloft) 25 mg PO DAILY [facility] Last Admin: 02/10/18 09:38 Dose: 25 mg Trazodone HCl (Desyrel) 25 mg PO HS [facility] Last Admin: 02/09/18 21:21 Dose: 25 mg - Labs Labs: 02/07/18 06:32 02/07/18 06:32 PT 15.9 SECONDS (9.7-12.2) H 02/04/18 06:22 INR 1.5 02/04/18 06:22 APTT 32 SECONDS (21-34) 02/04/18 06:22 - Constitutional Appears: Confused - Head Exam Head Exam: ATRAUMATIC, NORMOCEPHALIC - Eye Exam Eye Exam: EOMI, PERRL - Neck Exam Neck Exam: absent: Lymphadenopathy, Thyromegaly - Respiratory Exam Respiratory Exam: NORMAL BREATHING PATTERN. absent: Rales, Rhonchi, Wheezes - Cardiovascular Exam Cardiovascular Exam: REGULAR RHYTHM, +S1, +S2. absent: Gallop, Rubs, Murmur - GI/Abdominal Exam GI & Abdominal Exam: Soft, Tenderness, Normal Bowel Sounds. absent: Mass, Organomegaly - Rectal Exam Rectal Exam: Deferred - Extremities Exam Extremities Exam: absent: Calf Tenderness, Pedal Edema Assessment and Plan (1) Abdominal pain Assessment & Plan: Patient is more lethargic this morning. Will repeat labs. Status: Acute
[2018-02-10] MEDS ORDERED: PPN # 6 IV SCH (18:00)
[2018-02-10] MEDS: traZODone 25 mg Tab PO SCH (21:07)
[2018-02-10] MEDS: HYDROmorphone 0.5 mg/0.5 ml ISec IVP PRN (23:14)
[2018-02-11 06:06] LABS: BASO # 0.1 K/uL (0.0-0.2); BASO % 1.2 % (0.0-2.0); EOS # 0.1 K/uL (0.0-0.7); EOS % 2.7 % (0.0-4.0); HEMOGLOBIN 8.2 g/dL (12.0-18.0); LYMPH # 1.6 K/uL (1.0-4.3); LYMPH % 35.4 % (20.0-40.0); MEAN CELL VOLUME 91.7 fL (80.0-94.0); MEAN CORPUSCULAR HEMOGLOBIN 30.7 pg (27.0-31.0); MEAN CORPUSCULAR HGB CONC 33.5 g/dL (33.0-37.0); MEAN PLATELET VOLUME 9.8 fL (7.2-11.7); MONO # 0.3 K/uL (0.0-0.8); MONO % 7.5 % (0.0-10.0); NEUT # 2.4 K/uL (1.8-7.0); NEUT % 53.2 % (50.0-75.0); NRBC % 0.2 % (0.0-2.0); RBC 2.68 Mil/uL (4.40-5.90); RED CELL DISTRIBUTION WIDTH 20.2 % (11.5-14.5); WHITE BLOOD COUNT 4.6 K/uL (4.8-10.8)
[2018-02-11 06:26] LABS: ALB/GLOB RATIO 0.7 (1.0-2.1); ALBUMIN 1.9 g/dL (3.5-5.0); ALT/SGPT 23 U/L (21-72); AST/SGOT 24 U/L (17-59); BLOOD UREA NITROGEN 21 mg/dL (9-20); CALCIUM 8.6 mg/dl (8.6-10.4); GFR AFRICAN-AMERICAN > 60; GFR NON-AFRICAN AMERICAN > 60
[2018-02-11 06:26] LABS: INR 1.2; PROTHROMBIN TIME 13.6 SECONDS (9.7-12.2)
[2018-02-11] MEDS: HYDROmorphone 0.5 mg/0.5 ml ISec IVP PRN (06:36)
--- NOTE | 2018-02-11 07:51 | CP.PCM.PN ---
Subjective - Date & Time of Evaluation Date of Evaluation: 02/10/18 Time of Evaluation: 14:50 - Subjective Subjective: Patient seen and evaluated Denies chest pain and dyspnea Physical examination - Constitutional Appears: No Acute Distress, Chronically Ill - Head Exam Head Exam: ATRAUMATIC, NORMAL INSPECTION, NORMOCEPHALIC - Eye Exam Eye Exam: EOMI, Normal appearance, PERRL Pupil Exam: NORMAL ACCOMODATION, PERRL - Respiratory Exam Respiratory Exam: Decreased Breath Sounds, Rales - Cardiovascular Exam Cardiovascular Exam: REGULAR RHYTHM, +S1, +S2. absent: Murmur - GI/Abdominal Exam GI & Abdominal Exam: Soft, Normal Bowel Sounds. absent: Tenderness - Rectal Exam Rectal Exam: Deferred Objective - Vital Signs/Intake and Output Vital Signs (last 24 hours): Temp Pulse Resp BP Pulse Ox 98.5 F 83 12 111/71 95 02/11/18 04:00 02/11/18 04:00 02/11/18 04:00 02/11/18 03:53 02/11/18 04:00 Intake and Output: 02/11/18 02/11/18 06:59 18:59 Intake Total 604 Output Total 800 Balance -196 - Medications Medications: Current Medications Docusate Sodium (Colace) 100 mg PO BID [facility] Last Admin: 02/10/18 17:42 Dose: 100 mg Hydromorphone HCl (Dilaudid) 0.5 mg IVP Q4H PRN PRN Reason: Pain, severe (8-10) Last Admin: 02/11/18 06:36 Dose: 0.5 mg Multivitamins/Vitamin C 10 ml/Chromium/Copper/Manganese/Zinc 1 ml/ Amino Acids 1,011 mls @ 42 mls/hr IV .Q24H [facility] Stop: 02/11/18 17:59 Last Admin: 02/10/18 17:41 Dose: 42 mls/hr Insulin Aspart (Novolog) 0 unit SC ACHS [facility] PRN Reason: Protocol Insulin Glargine (Lantus) 10 unit SC DAILY [facility] Last Admin: 02/10/18 09:38 Dose: 10 units Metoprolol Succinate (Toprol Xl) 12.5 mg PO DAILY [facility] Last Admin: 02/10/18 09:38 Dose: Not Given Midodrine (Proamatine) 2.5 mg PO TID [facility] Last Admin: 02/10/18 17:45 Dose: 2.5 mg Multivitamins (Hexavitamin) 1 tab PO DAILY [facility] Last Admin: 02/09/18 09:35 Dose: 1 tab Pantoprazole Sodium (Protonix Susp) 40 mg PO BID [facility] Last Admin: 02/10/18 17:43 Dose: 40 mg Rosuvastatin Calcium (Crestor) 5 mg PO HS [facility] Last Admin: 02/10/18 21:07 Dose: 5 mg Sertraline HCl (Zoloft) 25 mg PO DAILY [facility] Last Admin: 02/10/18 09:38 Dose: 25 mg Trazodone HCl (Desyrel) 25 mg PO HS [facility] Last Admin: 02/10/18 21:07 Dose: 25 mg - Labs Labs: 02/11/18 06:00 02/11/18 06:00 PT 13.6 SECONDS (9.7-12.2) H 02/11/18 04:00 INR 1.2 02/11/18 04:00 APTT 32 SECONDS (21-34) 02/04/18 06:22 Assessment and Plan - Assessment and Plan (Free Text) Assessment: (1) CAD (coronary artery disease) Assessment & Plan: not a candidate for CABG medical therapy at present Status: Acute (2) Atrial fibrillation Assessment & Plan: tachcyardic. will give digoxin now. not a candidate for anticoagulation due to bleeding Status: Acute (3) Upper GI bleed Assessment & Plan: Mgt as per GI Status: Acute
[2018-02-11] MEDS: (Novolog) Insulin Aspart, Recombinant 100 u/ml 10 ml vial SC SCH ×4 (08:18→21:43)
[2018-02-11] MEDS: (Lantus) Insulin Glargine, Recombinant SC SCH (09:30)
[2018-02-11] MEDS: Pantoprazole 40 mg Susp UD PO SCH ×2 (09:30→17:12)
[2018-02-11] MEDS: Metoprolol Succinate 12.5 mg XL PO SCH (09:31)
--- NOTE | 2018-02-11 09:42 | CP.PCM.PN ---
Subjective - Date & Time of Evaluation Date of Evaluation: 02/11/18 Time of Evaluation: 09:39 - Subjective Subjective: Patient is more alert today. He continues to complain of abdominal pain. He denies having nausea and vomiting. The nursing staff reports no bleeding overnight. Objective - Vital Signs/Intake and Output Vital Signs (last 24 hours): Temp Pulse Resp BP Pulse Ox 98.2 F 82 12 97/57 L 98 02/11/18 08:00 02/11/18 09:31 02/11/18 09:31 02/11/18 09:32 02/11/18 09:31 Intake and Output: 02/11/18 02/11/18 06:59 18:59 Intake Total 604 Output Total 800 Balance -196 - Medications Medications: Current Medications Docusate Sodium (Colace) 100 mg PO BID [facility] Last Admin: 02/11/18 09:30 Dose: 100 mg Hydromorphone HCl (Dilaudid) 0.5 mg IVP Q4H PRN PRN Reason: Pain, severe (8-10) Last Admin: 02/11/18 06:36 Dose: 0.5 mg Multivitamins/Vitamin C 10 ml/Chromium/Copper/Manganese/Zinc 1 ml/ Amino Acids 1,011 mls @ 42 mls/hr IV .Q24H [facility] Stop: 02/11/18 17:59 Last Admin: 02/10/18 17:41 Dose: 42 mls/hr Insulin Aspart (Novolog) 0 unit SC ACHS [facility] PRN Reason: Protocol Last Admin: 02/11/18 08:18 Dose: 3 unit Insulin Glargine (Lantus) 10 unit SC DAILY [facility] Last Admin: 02/11/18 09:30 Dose: 10 units Metoprolol Succinate (Toprol Xl) 12.5 mg PO DAILY [facility] Last Admin: 02/11/18 09:31 Dose: Not Given Midodrine (Proamatine) 2.5 mg PO TID [facility] Last Admin: 02/11/18 09:31 Dose: 2.5 mg Multivitamins (Hexavitamin) 1 tab PO DAILY [facility] Last Admin: 02/09/18 09:35 Dose: 1 tab Pantoprazole Sodium (Protonix Susp) 40 mg PO BID [facility] Last Admin: 02/11/18 09:30 Dose: 40 mg Rosuvastatin Calcium (Crestor) 5 mg PO [facility] Last Admin: 02/10/18 21:07 Dose: 5 mg Sertraline HCl (Zoloft) 25 mg PO DAILY [facility] Last Admin: 02/11/18 09:31 Dose: 25 mg Trazodone HCl (Desyrel) 25 mg PO HS [facility] Last Admin: 02/10/18 21:07 Dose: 25 mg - Labs Labs: 02/11/18 06:00 02/11/18 06:00 PT 13.6 SECONDS (9.7-12.2) H 02/11/18 04:00 INR 1.2 02/11/18 04:00 APTT 32 SECONDS (21-34) 02/04/18 06:22 - Constitutional Appears: No Acute Distress - Head Exam Head Exam: ATRAUMATIC, NORMOCEPHALIC - Eye Exam Eye Exam: EOMI, PERRL - Neck Exam Neck Exam: absent: Lymphadenopathy, Thyromegaly - Respiratory Exam Respiratory Exam: NORMAL BREATHING PATTERN. absent: Rales, Rhonchi, Wheezes - Cardiovascular Exam Cardiovascular Exam: REGULAR RHYTHM, +S1, +S2. absent: Gallop, Rubs, Murmur - GI/Abdominal Exam GI & Abdominal Exam: Soft, Normal Bowel Sounds. absent: Tenderness, Mass, Organomegaly - Rectal Exam Rectal Exam: Deferred - Extremities Exam Extremities Exam: absent: Calf Tenderness, Pedal Edema Assessment and Plan (1) Abdominal pain Assessment & Plan: Pain is essentially unchanged. However, the HGB from this morning is down to 8.2. Will repeat the CBC and check stool for occult blood. Status: Acute
--- NOTE | 2018-02-11 11:06 | CP.PCM.PN ---
Subjective - Date & Time of Evaluation Date of Evaluation: 02/11/18 Time of Evaluation: 11:02 - Subjective Subjective: Pulmonary Follow up, Covering Dr. Faye The Patient was seen and examined at the bedside, Medical records reviewed, and management issues were discussed and formulated with the house staff. Events reviewed Today he looks comfortable and no apparent distress, saturating well at 94-98% on room air. Patient only complains of Abd pain, on PRN Dilauded Denies any fevers, chills, SOB or chest pain. Afebrile On Parentral nutrition Objective - Vital Signs/Intake and Output Vital Signs (last 24 hours): Temp Pulse Resp BP Pulse Ox 98.2 F 84 12 97/57 L 98 02/11/18 08:00 02/11/18 10:00 02/11/18 09:31 02/11/18 09:32 02/11/18 09:31 Intake and Output: 02/11/18 02/11/18 06:59 18:59 Intake Total 604 Output Total 800 Balance -196 - Medications Medications: Current Medications Docusate Sodium (Colace) 100 mg PO BID [facility] Last Admin: 02/11/18 09:30 Dose: 100 mg Hydromorphone HCl (Dilaudid) 0.5 mg IVP Q4H PRN PRN Reason: Pain, severe (8-10) Last Admin: 02/11/18 06:36 Dose: 0.5 mg Multivitamins/Vitamin C 10 ml/Chromium/Copper/Manganese/Zinc 1 ml/ Amino Acids 1,011 mls @ 42 mls/hr IV .Q24H [facility] Stop: 02/11/18 17:59 Last Admin: 02/10/18 17:41 Dose: 42 mls/hr Insulin Aspart (Novolog) 0 unit SC ACHS [facility] PRN Reason: Protocol Last Admin: 02/11/18 08:18 Dose: 3 unit Insulin Glargine (Lantus) 10 unit SC DAILY [facility] Last Admin: 02/11/18 09:30 Dose: 10 units Metoprolol Succinate (Toprol Xl) 12.5 mg PO DAILY [facility] Last Admin: 02/11/18 09:31 Dose: Not Given Midodrine (Proamatine) 2.5 mg PO TID [facility] Last Admin: 02/11/18 09:31 Dose: 2.5 mg Multivitamins (Hexavitamin) 1 tab PO DAILY [facility] Last Admin: 02/09/18 09:35 Dose: 1 tab Pantoprazole Sodium (Protonix Susp) 40 mg PO BID [facility] Last Admin: 02/11/18 09:30 Dose: 40 mg Rosuvastatin Calcium (Crestor) 5 mg PO HS [facility] Last Admin: 02/10/18 21:07 Dose: 5 mg Sertraline HCl (Zoloft) 25 mg PO DAILY [facility] Last Admin: 02/11/18 09:31 Dose: 25 mg Trazodone HCl (Desyrel) 25 mg PO HS [facility] Last Admin: 02/10/18 21:07 Dose: 25 mg - Labs Labs: 02/11/18 06:00 02/11/18 06:00 PT 13.6 SECONDS (9.7-12.2) H 02/11/18 04:00 INR 1.2 02/11/18 04:00 APTT 32 SECONDS (21-34) 02/04/18 06:22 - Constitutional Appears: Well, Non-toxic, No Acute Distress - Head Exam Head Exam: ATRAUMATIC, NORMAL INSPECTION - Eye Exam Eye Exam: EOMI, Normal appearance Pupil Exam: NORMAL ACCOMODATION, PERRL - Neck Exam Neck Exam: Full ROM, Normal Inspection - Respiratory Exam Respiratory Exam: Clear to Ausculation Bilateral, NORMAL BREATHING PATTERN. absent: Accessory Muscle Use, Rales, Rhonchi, Wheezes - Cardiovascular Exam Cardiovascular Exam: REGULAR RHYTHM, RRR, +S1, +S2. absent: Bradycardia, Tachycardia, JVD - GI/Abdominal Exam GI & Abdominal Exam: Distended, Soft, Normal Bowel Sounds. absent: Firm, Guarding, Rigid - Back Exam Back Exam: absent: CVA tenderness (L), CVA tenderness (R) - Neurological Exam Neurological Exam: Alert, Awake Assessment and Plan (1) Respiratory insufficiency Assessment & Plan: Acute hypoxemic respiratory failure ( Atelectasis, pleural effusion, Pulmonary venous congestion and small subsegmental defect on CT) No indication for full Anticoagulation due to Improved Oxygenation, only a small subsegmental defect on CT, GI bleeding and Anemia Today he looks comfortable and no apparent distress, saturating well at 94-98% on room air. Status: Acute (2) Pulmonary embolism Status: Acute (3) Upper GI bleed Status: Acute (4) Sepsis associated hypotension Status: Acute
[2018-02-11 11:36] LABS: EOS # 0.1 K/uL (0.0-0.7); EOS % 2.5 % (0.0-4.0); HEMOGLOBIN 8.1 g/dL (12.0-18.0); LYMPH # 1.3 K/uL (1.0-4.3); LYMPH % 32.4 % (20.0-40.0); MEAN CORPUSCULAR HEMOGLOBIN 30.8 pg (27.0-31.0); MEAN CORPUSCULAR HGB CONC 32.8 g/dL (33.0-37.0); MEAN PLATELET VOLUME 10.3 fL (7.2-11.7); MONO # 0.3 K/uL (0.0-0.8); MONO % 7.7 % (0.0-10.0); NEUT # 2.3 K/uL (1.8-7.0); NEUT % 56.4 % (50.0-75.0); RBC 2.62 Mil/uL (4.40-5.90); RED CELL DISTRIBUTION WIDTH 20.2 % (11.5-14.5); WHITE BLOOD COUNT 4.2 K/uL (4.8-10.8)
[2018-02-11 11:45] LABS: MEAN CELL VOLUME 93.8 fL (80.0-94.0)
[2018-02-11] MEDS ORDERED: PPN#7 IV ONE (18:00)
[2018-02-11 19:46] LABS: BASO # 0.1 K/uL (0.0-0.2); EOS # 0.1 K/uL (0.0-0.7); HEMOGLOBIN 8.1 g/dL (12.0-18.0); LYMPH # 1.6 K/uL (1.0-4.3); LYMPH % 31.8 % (20.0-40.0); MEAN CORPUSCULAR HEMOGLOBIN 30.4 pg (27.0-31.0); MEAN CORPUSCULAR HGB CONC 32.3 g/dL (33.0-37.0); MEAN PLATELET VOLUME 9.7 fL (7.2-11.7); MONO # 0.3 K/uL (0.0-0.8); MONO % 6.6 % (0.0-10.0); NEUT # 2.9 K/uL (1.8-7.0); NEUT % 58.6 % (50.0-75.0); NRBC % 0.1 % (0.0-2.0); RBC 2.68 Mil/uL (4.40-5.90); RED CELL DISTRIBUTION WIDTH 19.7 % (11.5-14.5)
--- NOTE | 2018-02-11 21:36 | CP.PCM.PN ---
Subjective - Date & Time of Evaluation Date of Evaluation: 02/11/18 Time of Evaluation: 07:50 - Subjective Subjective: Patient seen and evaluated Denies chest pain and dyspnea Physical examination - Constitutional Appears: No Acute Distress, Chronically Ill - Head Exam Head Exam: ATRAUMATIC, NORMAL INSPECTION, NORMOCEPHALIC - Eye Exam Eye Exam: EOMI, Normal appearance, PERRL Pupil Exam: NORMAL ACCOMODATION, PERRL - Respiratory Exam Respiratory Exam: Decreased Breath Sounds, Rales - Cardiovascular Exam Cardiovascular Exam: REGULAR RHYTHM, +S1, +S2. absent: Murmur - GI/Abdominal Exam GI & Abdominal Exam: Soft, Normal Bowel Sounds. absent: Tenderness - Rectal Exam Rectal Exam: Deferred Objective - Vital Signs/Intake and Output Vital Signs (last 24 hours): Temp Pulse Resp BP Pulse Ox 98 F 78 17 104/62 99 02/11/18 20:00 02/11/18 20:00 02/11/18 20:00 02/11/18 19:53 02/11/18 20:00 Intake and Output: 02/11/18 02/12/18 18:59 06:59 Intake Total 744 Output Total 600 Balance 144 - Medications Medications: Current Medications Docusate Sodium (Colace) 100 mg PO BID [facility] Last Admin: 02/11/18 17:13 Dose: 100 mg Hydromorphone HCl (Dilaudid) 0.5 mg IVP Q4H PRN PRN Reason: Pain, severe (8-10) Last Admin: 02/11/18 06:36 Dose: 0.5 mg Chromium/Copper/Manganese/Zinc (1 ml/ Amino Acids) 1,001 mls @ 42 mls/hr IV .[id number] ONE Stop: 02/12/18 17:49 Last Admin: 02/11/18 17:29 Dose: 42 mls/hr Insulin Aspart (Novolog) 0 unit SC ACHS [facility] PRN Reason: Protocol Last Admin: 02/11/18 17:11 Dose: 3 unit Insulin Glargine (Lantus) 10 unit SC DAILY [facility] Last Admin: 02/11/18 09:30 Dose: 10 units Metoprolol Succinate (Toprol Xl) 12.5 mg PO DAILY [facility] Last Admin: 02/11/18 09:31 Dose: Not Given Midodrine (Proamatine) 2.5 mg PO TID [facility] Last Admin: 02/11/18 17:12 Dose: 2.5 mg Multivitamins (Hexavitamin) 1 tab PO DAILY [facility] Last Admin: 02/09/18 09:35 Dose: 1 tab Pantoprazole Sodium (Protonix Susp) 40 mg PO BID [facility] Last Admin: 02/11/18 17:12 Dose: 40 mg Rosuvastatin Calcium (Crestor) 5 mg PO HS [facility] Last Admin: 02/10/18 21:07 Dose: 5 mg Sertraline HCl (Zoloft) 25 mg PO DAILY [facility] Last Admin: 02/11/18 09:31 Dose: 25 mg Trazodone HCl (Desyrel) 25 mg PO HS [facility] Last Admin: 02/10/18 21:07 Dose: 25 mg - Labs Labs: 02/11/18 19:39 02/11/18 06:00 PT 13.6 SECONDS (9.7-12.2) H 02/11/18 04:00 INR 1.2 02/11/18 04:00 APTT 32 SECONDS (21-34) 02/04/18 06:22 Assessment and Plan - Assessment and Plan (Free Text) Assessment: (1) CAD (coronary artery disease) Assessment & Plan: not a candidate for CABG medical therapy at present Status: Acute (2) Atrial fibrillation Assessment & Plan: tachcyardic. will give digoxin now. not a candidate for anticoagulation due to bleeding Status: Acute (3) Upper GI bleed Assessment & Plan: Mgt as per GI Status: Acute
[2018-02-11] MEDS: traZODone 25 mg Tab PO SCH (21:43)
[2018-02-12] MEDS: HYDROmorphone 0.5 mg/0.5 ml ISec IVP PRN ×2 (02:40→19:55)
--- NOTE | 2018-02-12 04:53 | CP.PCM.PN ---
Subjective - Date & Time of Evaluation Date of Evaluation: 02/11/18 Time of Evaluation: 20:00 - Subjective Subjective: Pt seen and evaluated, not actively bleeding, no mealnotic stools now, however he had drop in Hb, no fever, chills, nausea, vomiting Objective - Vital Signs/Intake and Output Vital Signs (last 24 hours): Temp Pulse Resp BP Pulse Ox 98.3 F 86 13 117/71 98 02/12/18 03:58 02/12/18 04:00 02/12/18 04:00 02/12/18 03:53 02/12/18 04:00 Intake and Output: 02/11/18 02/12/18 18:59 06:59 Intake Total 744 Output Total 600 Balance 144 - Medications Medications: Current Medications Docusate Sodium (Colace) 100 mg PO BID [facility] Last Admin: 02/11/18 17:13 Dose: 100 mg Hydromorphone HCl (Dilaudid) 0.5 mg IVP Q4H PRN PRN Reason: Pain, severe (8-10) Last Admin: 02/12/18 02:40 Dose: 0.5 mg Chromium/Copper/Manganese/Zinc (1 ml/ Amino Acids) 1,001 mls @ 42 mls/hr IV .[id number] ONE Stop: 02/12/18 17:49 Last Admin: 02/11/18 17:29 Dose: 42 mls/hr Insulin Aspart (Novolog) 0 unit SC ACHS [facility] PRN Reason: Protocol Last Admin: 02/11/18 21:43 Dose: Not Given Insulin Glargine (Lantus) 10 unit SC DAILY [facility] Last Admin: 02/11/18 09:30 Dose: 10 units Metoprolol Succinate (Toprol Xl) 12.5 mg PO DAILY [facility] Last Admin: 02/11/18 09:31 Dose: Not Given Midodrine (Proamatine) 2.5 mg PO TID [facility] Last Admin: 02/11/18 17:12 Dose: 2.5 mg Multivitamins (Hexavitamin) 1 tab PO DAILY [facility] Last Admin: 02/09/18 09:35 Dose: 1 tab Pantoprazole Sodium (Protonix Susp) 40 mg PO BID [facility] Last Admin: 02/11/18 17:12 Dose: 40 mg Rosuvastatin Calcium (Crestor) 5 mg PO HS [facility] Last Admin: 02/11/18 21:43 Dose: 5 mg Sertraline HCl (Zoloft) 25 mg PO DAILY [facility] Last Admin: 02/11/18 09:31 Dose: 25 mg Trazodone HCl (Desyrel) 25 mg PO HS [facility] Last Admin: 02/11/18 21:43 Dose: 25 mg - Labs Labs: 02/11/18 19:39 02/11/18 06:00 PT 13.6 SECONDS (9.7-12.2) H 02/11/18 04:00 INR 1.2 02/11/18 04:00 APTT 32 SECONDS (21-34) 02/04/18 06:22 - Constitutional Appears: No Acute Distress, Chronically Ill - Head Exam Head Exam: ATRAUMATIC, NORMAL INSPECTION, NORMOCEPHALIC - Eye Exam Eye Exam: EOMI, Normal appearance, PERRL Pupil Exam: NORMAL ACCOMODATION, PERRL - Respiratory Exam Respiratory Exam: Decreased Breath Sounds, Rhonchi - Cardiovascular Exam Cardiovascular Exam: REGULAR RHYTHM, +S1, +S2. absent: Murmur - GI/Abdominal Exam GI & Abdominal Exam: Soft, Normal Bowel Sounds. absent: Tenderness Assessment and Plan (1) Abdominal pain Status: Acute (2) Hypotension (arterial) Status: Acute (3) Pulmonary embolism Status: Acute (4) Upper GI bleed Status: Acute (5) Acute non-ST elevation myocardial infarction (NSTEMI) Status: Acute (6) CHF (congestive heart failure) Status: Acute (7) Diabetes mellitus Status: Acute (8) Diabetic nephropathy Status: Acute (9) Failure to thrive in adult Status: Acute (10) Intraabdominal fluid collection Status: Acute (11) Pulmonary emboli Status: Suspected
[2018-02-12 06:31] LABS: BASO % 0.9 % (0.0-2.0); EOS # 0.2 K/uL (0.0-0.7); EOS % 3.7 % (0.0-4.0); HEMOGLOBIN 8.3 g/dL (12.0-18.0); LYMPH # 1.7 K/uL (1.0-4.3); LYMPH % 40.4 % (20.0-40.0); MEAN CELL VOLUME 90.8 fL (80.0-94.0); MEAN CORPUSCULAR HEMOGLOBIN 29.9 pg (27.0-31.0); MEAN CORPUSCULAR HGB CONC 32.9 g/dL (33.0-37.0); MEAN PLATELET VOLUME 9.5 fL (7.2-11.7); MONO # 0.4 K/uL (0.0-0.8); MONO % 9.2 % (0.0-10.0); NEUT % 45.8 % (50.0-75.0); NRBC % 0.1 % (0.0-2.0); RBC 2.78 Mil/uL (4.40-5.90); RED CELL DISTRIBUTION WIDTH 19.2 % (11.5-14.5); WHITE BLOOD COUNT 4.3 K/uL (4.8-10.8)
[2018-02-12] MEDS: (Novolog) Insulin Aspart, Recombinant 100 u/ml 10 ml vial SC SCH ×4 (07:51→21:10)
[2018-02-12] MEDS: Pantoprazole 40 mg Susp UD PO SCH (09:37)
[2018-02-12] MEDS: Metoprolol Succinate 12.5 mg XL PO SCH (09:37)
[2018-02-12] MEDS: (Lantus) Insulin Glargine, Recombinant SC SCH (10:31)
--- NOTE | 2018-02-12 16:12 | CP.PCM.PN ---
Subjective - Date & Time of Evaluation Date of Evaluation: 02/12/18 Time of Evaluation: 16:07 - Subjective Subjective: F/U GI bleed, poor PO intake In ICU. Hgb low but no overt bleeding. Stool OB positive. We are asked to perform PEG as patient has poor PO intake Trial of NG feeds has not been initiated. Discussed with TELEVISION REPAIRER Objective - Vital Signs/Intake and Output Vital Signs (last 24 hours): Temp Pulse Resp BP Pulse Ox 98.1 F 93 H 21 98/56 L 97 02/12/18 12:00 02/12/18 12:07 02/12/18 11:24 02/12/18 11:24 02/12/18 11:24 Intake and Output: 02/12/18 02/12/18 06:59 18:59 Intake Total 654 Output Total 1300 Balance -646 - Medications Medications: Current Medications Docusate Sodium (Colace) 100 mg PO BID [facility] Last Admin: 02/12/18 09:37 Dose: 100 mg Hydromorphone HCl (Dilaudid) 0.5 mg IVP Q4H PRN PRN Reason: Pain, severe (8-10) Last Admin: 02/12/18 02:40 Dose: 0.5 mg Chromium/Copper/Manganese/Zinc (1 ml/ Amino Acids) 1,001 mls @ 42 mls/hr IV .[id number] ONE Stop: 02/12/18 17:49 Last Admin: 02/11/18 17:29 Dose: 42 mls/hr Chromium/Copper/Manganese/Zinc 1 ml/ Insulin Human Regular 10 unit/ Multivitamins/Vitamin C 10 ml/ Amino Acids 1,011.1 mls @ 42 mls/hr IV .Q24H [facility] Stop: 02/13/18 17:59 Insulin Aspart (Novolog) 0 unit SC ACHS [facility] PRN Reason: Protocol Last Admin: 02/12/18 11:35 Dose: 3 unit Insulin Glargine (Lantus) 10 unit SC DAILY [facility] Last Admin: 02/12/18 10:31 Dose: 10 units Metoprolol Succinate (Toprol Xl) 12.5 mg PO DAILY [facility] Last Admin: 02/12/18 09:37 Dose: Not Given Midodrine (Proamatine) 2.5 mg PO TID [facility] Last Admin: 06/04/18 14:04 Dose: 2.5 mg Multivitamins (Hexavitamin) 1 tab PO DAILY [facility] Last Admin: 02/09/18 09:35 Dose: 1 tab Pantoprazole Sodium (Protonix Ec Tab) 40 mg PO BID [facility] Rosuvastatin Calcium (Crestor) 5 mg PO HS [facility] Last Admin: 02/11/18 21:43 Dose: 5 mg Sertraline HCl (Zoloft) 25 mg PO DAILY [facility] Last Admin: 02/12/18 09:37 Dose: 25 mg Trazodone HCl (Desyrel) 25 mg PO HS [facility] Last Admin: 02/11/18 21:43 Dose: 25 mg - Labs Labs: 02/12/18 06:16 02/11/18 06:00 PT 13.6 SECONDS (9.7-12.2) H 02/11/18 04:00 INR 1.2 02/11/18 04:00 APTT 32 SECONDS (21-34) 02/04/18 06:22 - Constitutional Appears: Chronically Ill - Head Exam Head Exam: NORMOCEPHALIC - Cardiovascular Exam Cardiovascular Exam: REGULAR RHYTHM - GI/Abdominal Exam GI & Abdominal Exam: Soft. absent: Tenderness Assessment and Plan (1) Abdominal pain Status: Acute (2) Pulmonary embolism Status: Acute (3) Upper GI bleed Assessment & Plan: stable Continue Protonix Status: Acute (4) Acute non-ST elevation myocardial infarction (NSTEMI) Status: Acute (5) Perforated abdominal viscus Status: Acute (6) Failure to thrive in adult Assessment & Plan: Not eating well, poor appetite PEG would be technically difficult in this patient s/p recent duodenal surgery, and increased risk of cardiac complications s/p recent OR. Given these circumstances I will reiterate my recommendation to trial on NG feeds first. Patient does not want PEG, in my brief discussion with him but is willing to try NG feeds. Discussed with TELEVISION REPAIRER Status: Acute
[2018-02-12] MEDS: Pantoprazole 40 mg EC Tab PO SCH (17:13)
[2018-02-12] MEDS ORDERED: PPN #8 IV ONE (18:00)
[2018-02-12] MEDS: traZODone 25 mg Tab PO SCH (21:35)
--- NOTE | 2018-02-13 00:07 | CP.PCM.PN ---
Subjective - Date & Time of Evaluation Date of Evaluation: 02/12/18 Time of Evaluation: 09:40 - Subjective Subjective: Patient seen and evaluated Denies chest pain and dyspnea Objective - Vital Signs/Intake and Output Vital Signs (last 24 hours): Temp Pulse Resp BP Pulse Ox 99.6 F 87 14 98/47 L 99 02/12/18 20:00 02/12/18 20:00 02/12/18 20:00 02/12/18 19:24 02/12/18 20:00 Intake and Output: 02/12/18 02/13/18 18:59 06:59 Intake Total 704 Output Total 750 Balance -46 - Medications Medications: Current Medications Docusate Sodium (Colace) 100 mg PO BID [facility] Last Admin: 02/12/18 17:13 Dose: 100 mg Hydromorphone HCl (Dilaudid) 0.5 mg IVP Q4H PRN PRN Reason: Pain, severe (8-10) Last Admin: 02/12/18 19:55 Dose: 0.5 mg Chromium/Copper/Manganese/Zinc 1 ml/ Insulin Human Regular 10 unit/ Multivitamins/Vitamin C 10 ml/ Amino Acids 1,011.1 mls @ 42 mls/hr IV .Q24H ONE Stop: 02/13/18 17:59 Last Admin: 02/12/18 17:22 Dose: 42 mls/hr Insulin Aspart (Novolog) 0 unit SC ACHS [facility] PRN Reason: Protocol Last Admin: 02/12/18 21:10 Dose: Not Given Insulin Glargine (Lantus) 10 unit SC DAILY [facility] Last Admin: 02/12/18 10:31 Dose: 10 units Metoprolol Succinate (Toprol Xl) 12.5 mg PO DAILY [facility] Last Admin: 02/12/18 09:37 Dose: Not Given Midodrine (Proamatine) 2.5 mg PO TID [facility] Last Admin: 02/12/18 17:15 Dose: 2.5 mg Multivitamins (Hexavitamin) 1 tab PO DAILY [facility] Last Admin: 02/09/18 09:35 Dose: 1 tab Pantoprazole Sodium (Protonix Ec Tab) 40 mg PO BID [facility] Last Admin: 02/12/18 17:13 Dose: 40 mg Rosuvastatin Calcium (Crestor) 5 mg PO HS [facility] Last Admin: 02/12/18 21:35 Dose: 5 mg Sertraline HCl (Zoloft) 25 mg PO DAILY [facility] Last Admin: 02/12/18 09:37 Dose: 25 mg Trazodone HCl (Desyrel) 25 mg PO [facility] Last Admin: 02/12/18 21:35 Dose: 25 mg - Labs Labs: 02/12/18 06:16 02/11/18 06:00 PT 13.6 SECONDS (9.7-12.2) H 02/11/18 04:00 INR 1.2 02/11/18 04:00 APTT 32 SECONDS (21-34) 02/04/18 06:22
[2018-02-13 06:13] LABS: BASO % 0.5 % (0.0-2.0); EOS # 0.1 K/uL (0.0-0.7); EOS % 2.7 % (0.0-4.0); HEMOGLOBIN 7.9 g/dL (12.0-18.0); LYMPH # 2.4 K/uL (1.0-4.3); LYMPH % 47.3 % (20.0-40.0); MEAN CELL VOLUME 91.7 fL (80.0-94.0); MEAN CORPUSCULAR HEMOGLOBIN 30.5 pg (27.0-31.0); MEAN CORPUSCULAR HGB CONC 33.3 g/dL (33.0-37.0); MEAN PLATELET VOLUME 10.1 fL (7.2-11.7); MONO # 0.5 K/uL (0.0-0.8); MONO % 10.2 % (0.0-10.0); NEUT % 39.3 % (50.0-75.0); NRBC % 0.1 % (0.0-2.0); RBC 2.6 Mil/uL (4.40-5.90)
[2018-02-13 06:33] LABS: ALB/GLOB RATIO 0.7 (1.0-2.1); ALBUMIN 1.9 g/dL (3.5-5.0); ALT/SGPT 26 U/L (21-72); AST/SGOT 41 U/L (17-59); BLOOD UREA NITROGEN 19 mg/dL (9-20); CALCIUM 8.9 mg/dl (8.6-10.4); GFR AFRICAN-AMERICAN > 60; GFR NON-AFRICAN AMERICAN > 60
[2018-02-13] MEDS: (Novolog) Insulin Aspart, Recombinant 100 u/ml 10 ml vial SC SCH ×4 (08:09→21:42)
--- NOTE | 2018-02-13 09:02 | CP.PCM.PN ---
Subjective - Date & Time of Evaluation Date of Evaluation: 02/13/18 Time of Evaluation: 08:20 - Subjective Subjective: f/u anemai Objective - Vital Signs/Intake and Output Vital Signs (last 24 hours): Temp Pulse Resp BP Pulse Ox 98.5 F 101 H 24 107/66 94 L 02/13/18 04:00 02/13/18 04:00 02/13/18 04:00 02/13/18 03:24 02/13/18 04:00 Intake and Output: 02/13/18 02/13/18 06:59 18:59 Intake Total 604 Output Total 1000 Balance -396 - Medications Medications: Current Medications Docusate Sodium (Colace) 100 mg PO BID [facility] Last Admin: 02/12/18 17:13 Dose: 100 mg Hydromorphone HCl (Dilaudid) 0.5 mg IVP Q4H PRN PRN Reason: Pain, severe (8-10) Last Admin: 02/12/18 19:55 Dose: 0.5 mg Chromium/Copper/Manganese/Zinc 1 ml/ Insulin Human Regular 10 unit/ Multivitamins/Vitamin C 10 ml/ Amino Acids 1,011.1 mls @ 42 mls/hr IV .Q24H ONE Stop: 02/13/18 17:59 Last Admin: 02/12/18 17:22 Dose: 42 mls/hr Insulin Aspart (Novolog) 0 unit SC ACHS [facility] PRN Reason: Protocol Last Admin: 02/13/18 08:09 Dose: 2 unit Insulin Glargine (Lantus) 10 unit SC DAILY [facility] Last Admin: 02/12/18 10:31 Dose: 10 units Metoprolol Succinate (Toprol Xl) 12.5 mg PO DAILY [facility] Last Admin: 02/12/18 09:37 Dose: Not Given Midodrine (Proamatine) 2.5 mg PO TID [facility] Last Admin: 02/12/18 17:15 Dose: 2.5 mg Multivitamins (Hexavitamin) 1 tab PO DAILY [facility] Last Admin: 02/09/18 09:35 Dose: 1 tab Pantoprazole Sodium (Protonix Ec Tab) 40 mg PO BID [facility] Last Admin: 02/12/18 17:13 Dose: 40 mg Rosuvastatin Calcium (Crestor) 5 mg PO HS [facility] Last Admin: 02/12/18 21:35 Dose: 5 mg Sertraline HCl (Zoloft) 25 mg PO DAILY [facility] Last Admin: 02/12/18 09:37 Dose: 25 mg Trazodone HCl (Desyrel) 25 mg PO HS [facility] Last Admin: 02/12/18 21:35 Dose: 25 mg - Labs Labs: 02/13/18 06:06 02/13/18 06:06 PT 13.6 SECONDS (9.7-12.2) H 02/11/18 04:00 INR 1.2 02/11/18 04:00 APTT 32 SECONDS (21-34) 02/04/18 06:22 - Constitutional Appears: Non-toxic - Neck Exam Neck Exam: absent: Tenderness - Respiratory Exam Respiratory Exam: Clear to Ausculation Bilateral - Cardiovascular Exam Cardiovascular Exam: RRR - GI/Abdominal Exam GI & Abdominal Exam: Soft, Normal Bowel Sounds. absent: Guarding, Tenderness, Mass, Rebound - Extremities Exam Extremities Exam: absent: Calf Tenderness - Neurological Exam Neurological Exam: Alert, Awake. absent: Oriented x3 - Skin Skin Exam: Intact Assessment and Plan (1) Upper GI bleed Assessment & Plan: Hb drift down. No overt bleeding Status: Acute (2) Constipation Status: Acute (3) Abdominal pain Assessment & Plan: Much better Status: Acute (4) Hypotension (arterial) Status: Acute (5) Pulmonary embolism Status: Acute (6) Acute non-ST elevation myocardial infarction (NSTEMI) Status: Acute (7) Diabetes mellitus Status: Acute (8) GERD (gastroesophageal reflux disease) Status: Acute (9) Perforated abdominal viscus Status: Acute (10) Sepsis associated hypotension Status: Acute (11) Status post exploratory laparotomy Status: Acute (12) Abnormal CT of the abdomen Assessment & Plan: Collection. Status: Acute (13) Failure to thrive in adult Assessment & Plan: Peg would be difficult in this pt with recent duod surgery and an abdom collection. Encourage p.o. Consider NG tube- short term. Status: Acute
[2018-02-13] MEDS: Metoprolol Succinate 12.5 mg XL PO SCH (10:38)
[2018-02-13] MEDS: Pantoprazole 40 mg EC Tab PO SCH ×2 (10:39→18:34)
[2018-02-13] MEDS: (Lantus) Insulin Glargine, Recombinant SC SCH (10:47)
--- NOTE | 2018-02-13 13:58 | CP.PCM.PN ---
Subjective - Date & Time of Evaluation Date of Evaluation: 02/12/18 Time of Evaluation: 18:00 - Subjective Subjective: Pt seen In ICU. Hgb low but no overt bleeding. Stool OB positive. advised to perform PEG as patient has poor PO intake Trial of NG feeds has not been initiated. Objective - Vital Signs/Intake and Output Vital Signs (last 24 hours): Temp Pulse Resp BP Pulse Ox 98.5 F 109 H 19 109/70 99 02/13/18 08:00 02/13/18 11:24 02/13/18 11:24 02/13/18 11:24 02/13/18 11:24 Intake and Output: 02/13/18 02/13/18 06:59 18:59 Intake Total 604 Output Total 1000 Balance -396 - Medications Medications: Current Medications Docusate Sodium (Colace) 100 mg PO BID [facility] Last Admin: 02/13/18 10:39 Dose: 100 mg Hydromorphone HCl (Dilaudid) 0.5 mg IVP Q4H PRN PRN Reason: Pain, severe (8-10) Last Admin: 02/12/18 19:55 Dose: 0.5 mg Chromium/Copper/Manganese/Zinc 1 ml/ Insulin Human Regular 10 unit/ Multivitamins/Vitamin C 10 ml/ Amino Acids 1,011.1 mls @ 42 mls/hr IV .Q24H ONE Stop: 02/13/18 17:59 Last Admin: 02/12/18 17:22 Dose: 42 mls/hr Chromium/Copper/Manganese/Zinc 1 ml/ Insulin Human Regular 10 unit/ Multivitamins/Vitamin C 10 ml/ Amino Acids 1,011.1 mls @ 42 mls/hr IV .Q24H ONE Stop: 02/14/18 17:59 Insulin Aspart (Novolog) 0 unit SC ACHS [facility] PRN Reason: Protocol Last Admin: 02/13/18 12:20 Dose: 4 unit Insulin Glargine (Lantus) 10 unit SC DAILY [facility] Last Admin: 02/13/18 10:47 Dose: 10 units Metoprolol Succinate (Toprol Xl) 12.5 mg PO DAILY [facility] Last Admin: 02/13/18 10:38 Dose: 12.5 mg Midodrine (Proamatine) 2.5 mg PO TID [facility] Last Admin: 02/13/18 10:38 Dose: 2.5 mg Multivitamins (Hexavitamin) 1 tab PO DAILY [facility] Last Admin: 02/09/18 09:35 Dose: 1 tab Pantoprazole Sodium (Protonix Ec Tab) 40 mg PO BID [facility] Last Admin: 02/13/18 10:39 Dose: 40 mg Rosuvastatin Calcium (Crestor) 5 mg PO HS [facility] Last Admin: 02/12/18 21:35 Dose: 5 mg Sertraline HCl (Zoloft) 25 mg PO DAILY [facility] Last Admin: 02/13/18 10:39 Dose: 25 mg Trazodone HCl (Desyrel) 25 mg PO HS [facility] Last Admin: 02/12/18 21:35 Dose: 25 mg - Labs Labs: 02/13/18 06:06 02/13/18 06:06 PT 13.6 SECONDS (9.7-12.2) H 02/11/18 04:00 INR 1.2 02/11/18 04:00 APTT 32 SECONDS (21-34) 02/04/18 06:22 Assessment and Plan (1) Abdominal pain Status: Acute (2) Hypotension (arterial) Status: Acute (3) Pulmonary embolism Status: Acute (4) Upper GI bleed Status: Acute (5) Acute non-ST elevation myocardial infarction (NSTEMI) Status: Acute (6) CHF (congestive heart failure) Status: Acute (7) Diabetes mellitus Status: Acute (8) Diabetic nephropathy Status: Acute (9) Failure to thrive in adult Status: Acute (10) Intraabdominal fluid collection Status: Acute (11) Pulmonary emboli Status: Suspected
[2018-02-13] MEDS ORDERED: PPN #9 IV ONE (18:00)
[2018-02-13] MEDS: traZODone 25 mg Tab PO SCH (21:18)
[2018-02-14 07:09] LABS: BASO % 0.8 % (0.0-2.0); EOS # 0.1 K/uL (0.0-0.7); EOS % 2.2 % (0.0-4.0); HEMOGLOBIN 8.1 g/dL (12.0-18.0); LYMPH # 2.1 K/uL (1.0-4.3); LYMPH % 44.6 % (20.0-40.0); MEAN CELL VOLUME 90.2 fL (80.0-94.0); MEAN CORPUSCULAR HEMOGLOBIN 30.1 pg (27.0-31.0); MEAN CORPUSCULAR HGB CONC 33.4 g/dL (33.0-37.0); MONO # 0.5 K/uL (0.0-0.8); MONO % 10.2 % (0.0-10.0); NEUT % 42.2 % (50.0-75.0); NRBC % 0.1 % (0.0-2.0); RBC 2.7 Mil/uL (4.40-5.90); RED CELL DISTRIBUTION WIDTH 18.3 % (11.5-14.5); WHITE BLOOD COUNT 4.8 K/uL (4.8-10.8)
[2018-02-14 07:28] LABS: ALB/GLOB RATIO 0.7 (1.0-2.1); ALT/SGPT 51 U/L (21-72); AST/SGOT 63 U/L (17-59); BLOOD UREA NITROGEN 18 mg/dL (9-20); CALCIUM 8.9 mg/dl (8.6-10.4); GFR AFRICAN-AMERICAN > 60; GFR NON-AFRICAN AMERICAN > 60
[2018-02-14] MEDS: (Novolog) Insulin Aspart, Recombinant 100 u/ml 10 ml vial SC SCH ×4 (07:30→21:31)
--- NOTE | 2018-02-14 09:20 | CP.PCM.PN ---
Subjective - Date & Time of Evaluation Date of Evaluation: 02/13/18 Time of Evaluation: 18:00 - Subjective Subjective: pt is improving, he is eating well, afebrile, no shortness of breath, we shall contact the career and technology education teacher for future plan of care Objective - Vital Signs/Intake and Output Vital Signs (last 24 hours): Temp Pulse Resp BP Pulse Ox 98.2 F 91 H 18 136/75 98 02/14/18 07:00 02/14/18 07:00 02/14/18 07:00 02/14/18 07:00 02/14/18 07:00 Intake and Output: 02/14/18 02/14/18 06:59 18:59 Intake Total 204 360 Output Total 800 Balance -596 360 - Medications Medications: Current Medications Docusate Sodium (Colace) 100 mg PO BID [facility] Last Admin: 02/13/18 18:26 Dose: Not Given Hydromorphone HCl (Dilaudid) 0.5 mg IVP Q4H PRN PRN Reason: Pain, severe (8-10) Last Admin: 02/12/18 19:55 Dose: 0.5 mg Chromium/Copper/Manganese/Zinc 1 ml/ Insulin Human Regular 10 unit/ Multivitamins/Vitamin C 10 ml/ Amino Acids 1,011.1 mls @ 42 mls/hr IV .Q24H ONE Stop: 02/14/18 17:59 Last Admin: 02/13/18 17:11 Dose: 42 mls/hr Insulin Aspart (Novolog) 0 unit SC ACHS [facility] PRN Reason: Protocol Last Admin: 02/13/18 21:42 Dose: Not Given Insulin Glargine (Lantus) 10 unit SC DAILY [facility] Last Admin: 02/13/18 10:47 Dose: 10 units Metoprolol Succinate (Toprol Xl) 12.5 mg PO DAILY [facility] Last Admin: 02/13/18 10:38 Dose: 12.5 mg Midodrine (Proamatine) 2.5 mg PO TID [facility] Last Admin: 02/13/18 18:34 Dose: 2.5 mg Multivitamins (Hexavitamin) 1 tab PO DAILY [facility] Last Admin: 02/09/18 09:35 Dose: 1 tab Pantoprazole Sodium (Protonix Ec Tab) 40 mg PO BID [facility] Last Admin: 02/13/18 18:34 Dose: 40 mg Rosuvastatin Calcium (Crestor) 5 mg PO HS [facility] Last Admin: 02/13/18 21:18 Dose: 5 mg Sertraline HCl (Zoloft) 25 mg PO DAILY [facility] Last Admin: 02/13/18 10:39 Dose: 25 mg Trazodone HCl (Desyrel) 25 mg PO HS [facility] Last Admin: 02/13/18 21:18 Dose: 25 mg - Labs Labs: 02/14/18 07:01 02/14/18 07:01 PT 13.6 SECONDS (9.7-12.2) H 02/11/18 04:00 INR 1.2 02/11/18 04:00 APTT 32 SECONDS (21-34) 02/04/18 06:22 - Constitutional Appears: No Acute Distress - Head Exam Head Exam: ATRAUMATIC, NORMAL INSPECTION, NORMOCEPHALIC - Eye Exam Eye Exam: EOMI, Normal appearance, PERRL Pupil Exam: NORMAL ACCOMODATION, PERRL - Respiratory Exam Respiratory Exam: Clear to Ausculation Bilateral, NORMAL BREATHING PATTERN - Cardiovascular Exam Cardiovascular Exam: REGULAR RHYTHM, +S1, +S2. absent: Murmur - GI/Abdominal Exam GI & Abdominal Exam: Soft, Normal Bowel Sounds. absent: Tenderness - Rectal Exam Rectal Exam: Deferred Assessment and Plan (1) Abdominal pain Status: Acute (2) Hypotension (arterial) Status: Acute (3) Pulmonary embolism Status: Acute (4) Upper GI bleed Status: Acute (5) Acute non-ST elevation myocardial infarction (NSTEMI) Status: Acute (6) CHF (congestive heart failure) Status: Acute (7) Diabetes mellitus Status: Acute (8) Diabetic nephropathy Status: Acute (9) Failure to thrive in adult Status: Acute (10) Intraabdominal fluid collection Status: Acute (11) Pulmonary emboli Status: Suspected
[2018-02-14] MEDS: Pantoprazole 40 mg EC Tab PO SCH ×2 (09:40→17:26)
[2018-02-14] MEDS: Metoprolol Succinate 12.5 mg XL PO SCH (09:42)
[2018-02-14] MEDS: (Lantus) Insulin Glargine, Recombinant SC SCH (09:48)
--- NOTE | 2018-02-14 12:57 | CP.PCM.PN ---
Subjective - Date & Time of Evaluation Date of Evaluation: 02/14/18 Time of Evaluation: 12:54 - Subjective Subjective: Fair appetite bar attendant reviewed. Eating better. Recommend swallow eval Objective - Vital Signs/Intake and Output Vital Signs (last 24 hours): Temp Pulse Resp BP Pulse Ox 98.2 F 91 H 18 136/75 98 02/14/18 07:00 02/14/18 07:00 02/14/18 07:00 02/14/18 07:00 02/14/18 07:00 Intake and Output: 02/14/18 02/14/18 06:59 18:59 Intake Total 204 360 Output Total 800 Balance -596 360 - Medications Medications: Current Medications Docusate Sodium (Colace) 100 mg PO BID [facility] Last Admin: 02/14/18 09:40 Dose: 100 mg Hydromorphone HCl (Dilaudid) 0.5 mg IVP Q4H PRN PRN Reason: Pain, severe (8-10) Last Admin: 02/12/18 19:55 Dose: 0.5 mg Chromium/Copper/Manganese/Zinc 1 ml/ Insulin Human Regular 10 unit/ Multivitamins/Vitamin C 10 ml/ Amino Acids 1,011.1 mls @ 42 mls/hr IV .Q24H ONE Stop: 02/14/18 17:59 Last Admin: 02/13/18 17:11 Dose: 42 mls/hr Chromium/Copper/Manganese/Zinc 1 ml/ Insulin Human Regular 10 unit/ Multivitamins/Vitamin C 10 ml/ Amino Acids 1,011.1 mls @ 42 mls/hr IV .Q24H ONE Stop: 02/15/18 17:59 Insulin Aspart (Novolog) 0 unit SC ACHS [facility] PRN Reason: Protocol Last Admin: 02/14/18 07:30 Dose: Not Given Insulin Glargine (Lantus) 10 unit SC DAILY [facility] Last Admin: 02/13/18 10:47 Dose: 10 units Metoprolol Succinate (Toprol Xl) 12.5 mg PO DAILY [facility] Last Admin: 02/14/18 09:42 Dose: 12.5 mg Midodrine (Proamatine) 2.5 mg PO TID [facility] Last Admin: 02/14/18 09:48 Dose: Not Given Multivitamins (Hexavitamin) 1 tab PO DAILY [facility] Last Admin: 02/09/18 09:35 Dose: 1 tab Pantoprazole Sodium (Protonix Ec Tab) 40 mg PO BID [facility] Last Admin: 02/14/18 09:40 Dose: 40 mg Rosuvastatin Calcium (Crestor) 5 mg PO HS [facility] Last Admin: 02/13/18 21:18 Dose: 5 mg Sertraline HCl (Zoloft) 25 mg PO DAILY [facility] Last Admin: 02/14/18 09:40 Dose: 25 mg Trazodone HCl (Desyrel) 25 mg PO HS [facility] Last Admin: 02/13/18 21:18 Dose: 25 mg - Labs Labs: 02/14/18 07:01 02/14/18 07:01 PT 13.6 SECONDS (9.7-12.2) H 02/11/18 04:00 INR 1.2 02/11/18 04:00 APTT 32 SECONDS (21-34) 02/04/18 06:22 - Constitutional Appears: Chronically Ill - Eye Exam Eye Exam: absent: Scleral icterus - Respiratory Exam Respiratory Exam: NORMAL BREATHING PATTERN - Cardiovascular Exam Cardiovascular Exam: Tachycardia - GI/Abdominal Exam GI & Abdominal Exam: Soft. 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 Hopefully positive trend continues and we can avoid feeding tubes Consider swallow evaluation Status: Acute
[2018-02-14] MEDS ORDERED: PPN #10 IV ONE (18:00)
[2018-02-14] MEDS: HYDROmorphone 0.5 mg/0.5 ml ISec IVP PRN (21:27)
[2018-02-14] MEDS: traZODone 25 mg Tab PO SCH (21:27)
--- NOTE | 2018-02-14 22:44 | CP.PCM.PN ---
Subjective - Date & Time of Evaluation Date of Evaluation: 02/13/18 Time of Evaluation: 07:00 - Subjective Subjective: Patient seen and evaluated Denies chest pain and dyspnea Objective - Vital Signs/Intake and Output Vital Signs (last 24 hours): Temp Pulse Resp BP Pulse Ox 97.5 F L 81 18 114/68 99 02/14/18 15:00 02/14/18 16:33 02/14/18 15:00 02/14/18 15:00 02/14/18 15:00 Intake and Output: 02/14/18 02/15/18 18:59 06:59 Intake Total 696 Output Total 650 600 Balance 46 -600 - Medications Medications: Current Medications Docusate Sodium (Colace) 100 mg PO BID [facility] Last Admin: 02/14/18 17:26 Dose: 100 mg Hydromorphone HCl (Dilaudid) 0.5 mg IVP Q4H PRN PRN Reason: Pain, severe (8-10) Last Admin: 02/14/18 21:27 Dose: 0.5 mg Insulin Aspart (Novolog) 0 unit SC [facility] PRN Reason: Protocol Last Admin: 02/14/18 21:31 Dose: Not Given Insulin Glargine (Lantus) 10 unit SC DAILY [facility] Last Admin: 02/14/18 09:48 Dose: 10 units Metoprolol Succinate (Toprol Xl) 12.5 mg PO DAILY [facility] Last Admin: 02/14/18 09:42 Dose: 12.5 mg Midodrine (Proamatine) 2.5 mg PO TID [facility] Last Admin: 02/14/18 17:27 Dose: 2.5 mg Multivitamins (Hexavitamin) 1 tab PO DAILY [facility] Last Admin: 02/09/18 09:35 Dose: 1 tab Pantoprazole Sodium (Protonix Ec Tab) 40 mg PO BID [facility] Last Admin: 02/14/18 17:26 Dose: 40 mg Rosuvastatin Calcium (Crestor) 5 mg PO [facility] Last Admin: 02/14/18 21:27 Dose: 5 mg Sertraline HCl (Zoloft) 25 mg PO DAILY [facility] Last Admin: 02/14/18 09:40 Dose: 25 mg Trazodone HCl (Desyrel) 25 mg PO [facility] Last Admin: 02/14/18 21:27 Dose: 25 mg - Labs Labs: 02/14/18 07:01 02/14/18 07:01 PT 13.6 SECONDS (9.7-12.2) H 02/11/18 04:00 INR 1.2 02/11/18 04:00 APTT 32 SECONDS (21-34) 02/04/18 06:22
--- NOTE | 2018-02-14 22:49 | CP.PCM.PN ---
Subjective - Date & Time of Evaluation Date of Evaluation: 02/14/18 Time of Evaluation: 07:10 - Subjective Subjective: Patient seen and evaluated Denies chest pain and dyspnea Objective - Vital Signs/Intake and Output Vital Signs (last 24 hours): Temp Pulse Resp BP Pulse Ox 97.5 F L 81 18 114/68 99 02/14/18 15:00 02/14/18 16:33 02/14/18 15:00 02/14/18 15:00 02/14/18 15:00 Intake and Output: 02/14/18 02/15/18 18:59 06:59 Intake Total 696 Output Total 650 600 Balance 46 -600 - Medications Medications: Current Medications Docusate Sodium (Colace) 100 mg PO BID [facility] Last Admin: 02/14/18 17:26 Dose: 100 mg Hydromorphone HCl (Dilaudid) 0.5 mg IVP Q4H PRN PRN Reason: Pain, severe (8-10) Last Admin: 02/14/18 21:27 Dose: 0.5 mg Insulin Aspart (Novolog) 0 unit SC [facility] PRN Reason: Protocol Last Admin: 02/14/18 21:31 Dose: Not Given Insulin Glargine (Lantus) 10 unit SC DAILY [facility] Last Admin: 02/14/18 09:48 Dose: 10 units Metoprolol Succinate (Toprol Xl) 12.5 mg PO DAILY [facility] Last Admin: 02/14/18 09:42 Dose: 12.5 mg Midodrine (Proamatine) 2.5 mg PO TID [facility] Last Admin: 02/14/18 17:27 Dose: 2.5 mg Multivitamins (Hexavitamin) 1 tab PO DAILY [facility] Last Admin: 02/09/18 09:35 Dose: 1 tab Pantoprazole Sodium (Protonix Ec Tab) 40 mg PO BID [facility] Last Admin: 02/14/18 17:26 Dose: 40 mg Rosuvastatin Calcium (Crestor) 5 mg PO [facility] Last Admin: 02/14/18 21:27 Dose: 5 mg Sertraline HCl (Zoloft) 25 mg PO DAILY [facility] Last Admin: 02/14/18 09:40 Dose: 25 mg Trazodone HCl (Desyrel) 25 mg PO [facility] Last Admin: 02/14/18 21:27 Dose: 25 mg - Labs Labs: 02/14/18 07:01 02/14/18 07:01 PT 13.6 SECONDS (9.7-12.2) H 02/11/18 04:00 INR 1.2 02/11/18 04:00 APTT 32 SECONDS (21-34) 02/04/18 06:22
[2018-02-15 07:56] LABS: BASO % 0.9 % (0.0-2.0); EOS # 0.1 K/uL (0.0-0.7); EOS % 1.8 % (0.0-4.0); HEMOGLOBIN 7.9 g/dL (12.0-18.0); LYMPH # 2.1 K/uL (1.0-4.3); LYMPH % 41.3 % (20.0-40.0); MEAN CELL VOLUME 90.5 fL (80.0-94.0); MEAN CORPUSCULAR HEMOGLOBIN 29.8 pg (27.0-31.0); MEAN CORPUSCULAR HGB CONC 32.9 g/dL (33.0-37.0); MEAN PLATELET VOLUME 9.9 fL (7.2-11.7); MONO # 0.6 K/uL (0.0-0.8); MONO % 12.2 % (0.0-10.0); NEUT # 2.2 K/uL (1.8-7.0); NEUT % 43.8 % (50.0-75.0); NRBC % 0.1 % (0.0-2.0); RBC 2.64 Mil/uL (4.40-5.90); RED CELL DISTRIBUTION WIDTH 18.4 % (11.5-14.5)
[2018-02-15 08:11] LABS: ALB/GLOB RATIO 0.7 (1.0-2.1); ALT/SGPT 44 U/L (21-72); AST/SGOT 52 U/L (17-59); BLOOD UREA NITROGEN 16 mg/dL (9-20); CALCIUM 8.8 mg/dl (8.6-10.4); GFR AFRICAN-AMERICAN > 60; GFR NON-AFRICAN AMERICAN > 60
--- NOTE | 2018-02-15 08:20 | CP.PCM.PN ---
Subjective - Date & Time of Evaluation Date of Evaluation: 02/14/18 Time of Evaluation: 19:50 - Subjective Subjective: Pt seen and examined , is doing well, no GI bleeding now, tolerating diet, PPN is being stopped, he is more alert, afebrile Objective - Vital Signs/Intake and Output Vital Signs (last 24 hours): Temp Pulse Resp BP Pulse Ox 97.5 F L 93 H 18 106/64 100 02/15/18 07:00 02/15/18 07:00 02/15/18 07:00 02/15/18 07:00 02/15/18 07:00 Intake and Output: 02/15/18 02/15/18 06:59 18:59 Output Total 1050 Balance -1050 - Medications Medications: Current Medications Docusate Sodium (Colace) 100 mg PO BID [facility] Last Admin: 02/14/18 17:26 Dose: 100 mg Hydromorphone HCl (Dilaudid) 0.5 mg IVP Q4H PRN PRN Reason: Pain, severe (8-10) Last Admin: 02/14/18 21:27 Dose: 0.5 mg Insulin Aspart (Novolog) 0 unit SC ACHS [facility] PRN Reason: Protocol Last Admin: 02/14/18 21:31 Dose: Not Given Insulin Glargine (Lantus) 10 unit SC DAILY [facility] Last Admin: 02/14/18 09:48 Dose: 10 units Metoprolol Succinate (Toprol Xl) 12.5 mg PO DAILY [facility] Last Admin: 02/14/18 09:42 Dose: 12.5 mg Midodrine (Proamatine) 2.5 mg PO TID [facility] Last Admin: 02/14/18 17:27 Dose: 2.5 mg Multivitamins (Hexavitamin) 1 tab PO DAILY [facility] Last Admin: 02/09/18 09:35 Dose: 1 tab Pantoprazole Sodium (Protonix Ec Tab) 40 mg PO BID [facility] Last Admin: 02/14/18 17:26 Dose: 40 mg Rosuvastatin Calcium (Crestor) 5 mg PO HS [facility] Last Admin: 02/14/18 21:27 Dose: 5 mg Sertraline HCl (Zoloft) 25 mg PO DAILY [facility] Last Admin: 02/14/18 09:40 Dose: 25 mg Trazodone HCl (Desyrel) 25 mg PO [facility] Last Admin: 02/14/18 21:27 Dose: 25 mg - Labs Labs: 02/15/18 07:45 02/15/18 07:45 PT 13.6 SECONDS (9.7-12.2) H 02/11/18 04:00 INR 1.2 02/11/18 04:00 APTT 32 SECONDS (21-34) 02/04/18 06:22 - Constitutional Appears: No Acute Distress - Head Exam Head Exam: ATRAUMATIC, NORMAL INSPECTION, NORMOCEPHALIC - Eye Exam Eye Exam: EOMI, Normal appearance, PERRL Pupil Exam: NORMAL ACCOMODATION, PERRL - Respiratory Exam Respiratory Exam: Decreased Breath Sounds, Rales, Rhonchi - Cardiovascular Exam Cardiovascular Exam: REGULAR RHYTHM, +S1, +S2. absent: Murmur - GI/Abdominal Exam GI & Abdominal Exam: Soft, Normal Bowel Sounds. absent: Tenderness - Rectal Exam Rectal Exam: Deferred Assessment and Plan (1) Abdominal pain Status: Acute (2) Hypotension (arterial) Status: Acute (3) Pulmonary embolism Status: Acute (4) Upper GI bleed Status: Acute (5) Acute non-ST elevation myocardial infarction (NSTEMI) Status: Acute (6) CHF (congestive heart failure) Status: Acute (7) Diabetes mellitus Status: Acute (8) Diabetic nephropathy Status: Acute (9) Failure to thrive in adult Status: Acute (10) Intraabdominal fluid collection Status: Acute (11) Pulmonary emboli Status: Suspected
[2018-02-15] MEDS: (Novolog) Insulin Aspart, Recombinant 100 u/ml 10 ml vial SC SCH ×4 (08:30→21:26)
[2018-02-15] MEDS: (Lantus) Insulin Glargine, Recombinant SC SCH (09:39)
[2018-02-15] MEDS: Metoprolol Succinate 12.5 mg XL PO SCH (09:39)
[2018-02-15] MEDS: Pantoprazole 40 mg EC Tab PO SCH ×2 (09:39→17:40)
--- NOTE | 2018-02-15 09:54 | CP.PCM.PN ---
Subjective - Date & Time of Evaluation Date of Evaluation: 02/15/18 Time of Evaluation: 09:35 - Subjective Subjective: F/u GI bleed, anemia, FTT Pt seen with RN. Denies fever, chills, [place], cough, RB, melena, abd pain, CP, SOB, SZ Objective - Vital Signs/Intake and Output Vital Signs (last 24 hours): Temp Pulse Resp BP Pulse Ox 97.5 F L 93 H 18 106/64 100 02/15/18 07:00 02/15/18 07:00 02/15/18 07:00 02/15/18 07:00 02/15/18 07:00 Intake and Output: 02/15/18 02/15/18 06:59 18:59 Output Total 1050 Balance -1050 - Medications Medications: Current Medications Docusate Sodium (Colace) 100 mg PO BID [facility] Last Admin: 02/15/18 09:39 Dose: 100 mg Hydromorphone HCl (Dilaudid) 0.5 mg IVP Q4H PRN PRN Reason: Pain, severe (8-10) Last Admin: 02/14/18 21:27 Dose: 0.5 mg Insulin Aspart (Novolog) 0 unit SC ACHS [facility] PRN Reason: Protocol Last Admin: 02/15/18 08:30 Dose: 2 unit Insulin Glargine (Lantus) 10 unit SC DAILY [facility] Last Admin: 02/15/18 09:39 Dose: 10 units Metoprolol Succinate (Toprol Xl) 12.5 mg PO DAILY [facility] Last Admin: 02/15/18 09:39 Dose: 12.5 mg Midodrine (Proamatine) 2.5 mg PO TID [facility] Last Admin: 02/15/18 09:39 Dose: 2.5 mg Multivitamins (Hexavitamin) 1 tab PO DAILY [facility] Last Admin: 02/09/18 09:35 Dose: 1 tab Pantoprazole Sodium (Protonix Ec Tab) 40 mg PO BID [facility] Last Admin: 02/15/18 09:39 Dose: 40 mg Rosuvastatin Calcium (Crestor) 5 mg PO HS [facility] Last Admin: 02/14/18 21:27 Dose: 5 mg Sertraline HCl (Zoloft) 25 mg PO DAILY [facility] Last Admin: 02/15/18 09:39 Dose: 25 mg Trazodone HCl (Desyrel) 25 mg PO HS [facility] Last Admin: 02/14/18 21:27 Dose: 25 mg - Labs Labs: 02/15/18 07:45 02/15/18 07:45 PT 13.6 SECONDS (9.7-12.2) H 02/11/18 04:00 INR 1.2 02/11/18 04:00 APTT 32 SECONDS (21-34) 02/04/18 06:22 - Constitutional Appears: Non-toxic - Neck Exam Neck Exam: absent: Tenderness - Respiratory Exam Respiratory Exam: Clear to Ausculation Bilateral - Cardiovascular Exam Cardiovascular Exam: RRR - GI/Abdominal Exam GI & Abdominal Exam: Soft, Normal Bowel Sounds. absent: Tenderness - Extremities Exam Extremities Exam: absent: Calf Tenderness - Neurological Exam Neurological Exam: Alert, Awake Assessment and Plan (1) Upper GI bleed Assessment & Plan: Hb around 8. No melena. Recent EGD showed oozing at duid ulcer surg site. Status: Acute (2) Constipation Assessment & Plan: Laxatives as needed. Status: Acute (3) Abdominal pain Assessment & Plan: Better Status: Acute (4) Hypotension (arterial) Status: Acute (5) Pulmonary embolism Status: Acute (6) Acute non-ST elevation myocardial infarction (NSTEMI) Status: Acute (7) Diabetes mellitus Status: Acute (8) GERD (gastroesophageal reflux disease) Status: Acute (9) Perforated abdominal viscus Status: Acute (10) Sepsis associated hypotension Status: Acute (11) Status post exploratory laparotomy Status: Acute (12) Abnormal CT of the abdomen Assessment & Plan: Collection. abdomen Status: Acute (13) Failure to thrive in adult Assessment & Plan: Rn reports swallows ok- but occ eats 75%, and occ less.. Patient is encouraged to take p.o. Give ENSURE> Placing a PEG in this patient is diffficult due to his: Poor medical condition, recent duod surgery, recent GI bleed from duod site. Status: Acute
[2018-02-15] MEDS: traZODone 25 mg Tab PO SCH (21:19)
--- NOTE | 2018-02-15 22:32 | CP.PCM.PN ---
Subjective - Date & Time of Evaluation Date of Evaluation: 02/15/18 Time of Evaluation: 06:30 - Subjective Subjective: Patient seen and evaluated Comfortable Denies chest pain and dyspnea Objective - Vital Signs/Intake and Output Vital Signs (last 24 hours): Temp Pulse Resp BP Pulse Ox 97.6 F 75 18 114/69 100 02/15/18 15:00 02/15/18 18:00 02/15/18 15:00 02/15/18 15:00 02/15/18 15:00 Intake and Output: 02/15/18 02/16/18 18:59 06:59 Output Total 300 250 Balance -300 -250 - Medications Medications: Current Medications Docusate Sodium (Colace) 100 mg PO BID [facility] Last Admin: 02/15/18 17:40 Dose: 100 mg Hydromorphone HCl (Dilaudid) 0.5 mg IVP Q4H PRN PRN Reason: Pain, severe (8-10) Last Admin: 02/14/18 21:27 Dose: 0.5 mg Insulin Aspart (Novolog) 0 unit SC [facility] PRN Reason: Protocol Last Admin: 02/15/18 21:26 Dose: Not Given Insulin Glargine (Lantus) 10 unit SC DAILY [facility] Last Admin: 02/15/18 09:39 Dose: 10 units Metoprolol Succinate (Toprol Xl) 12.5 mg PO DAILY [facility] Last Admin: 02/15/18 09:39 Dose: 12.5 mg Midodrine (Proamatine) 2.5 mg PO TID [facility] Last Admin: 02/15/18 17:31 Dose: Not Given Multivitamins (Hexavitamin) 1 tab PO DAILY [facility] Last Admin: 02/09/18 09:35 Dose: 1 tab Pantoprazole Sodium (Protonix Ec Tab) 40 mg PO BID [facility] Last Admin: 02/15/18 17:40 Dose: 40 mg Rosuvastatin Calcium (Crestor) 5 mg PO [facility] Last Admin: 02/15/18 21:19 Dose: 5 mg Sertraline HCl (Zoloft) 25 mg PO DAILY [facility] Last Admin: 02/15/18 09:39 Dose: 25 mg Trazodone HCl (Desyrel) 25 mg PO HS [facility] Last Admin: 02/15/18 21:19 Dose: 25 mg - Labs Labs: 02/15/18 07:45 06/07/18 07:45 PT 13.6 SECONDS (9.7-12.2) H 02/11/18 04:00 INR 1.2 02/11/18 04:00 APTT 32 SECONDS (21-34) 02/04/18 06:22
[2018-02-15] MEDS: HYDROmorphone 0.5 mg/0.5 ml ISec IVP PRN (23:39)
[2018-02-16] MEDS ORDERED: Metoprolol Succinate 25 mg XL Tab PO SCH (04:18)
[2018-02-16 06:08] LABS: BASO % 0.8 % (0.0-2.0); EOS # 0.1 K/uL (0.0-0.7); EOS % 1.4 % (0.0-4.0); HEMOGLOBIN 7.8 g/dL (12.0-18.0); LYMPH % 38.1 % (20.0-40.0); MEAN CELL VOLUME 89.8 fL (80.0-94.0); MEAN CORPUSCULAR HEMOGLOBIN 29.7 pg (27.0-31.0); MEAN PLATELET VOLUME 9.3 fL (7.2-11.7); MONO # 0.7 K/uL (0.0-0.8); MONO % 13.1 % (0.0-10.0); NEUT # 2.4 K/uL (1.8-7.0); NEUT % 46.6 % (50.0-75.0); RBC 2.64 Mil/uL (4.40-5.90); RED CELL DISTRIBUTION WIDTH 17.5 % (11.5-14.5); WHITE BLOOD COUNT 5.2 K/uL (4.8-10.8)
[2018-02-16] MEDS: HYDROmorphone 0.5 mg/0.5 ml ISec IVP PRN (07:11)
[2018-02-16 07:32] LABS: ALB/GLOB RATIO 0.7 (1.0-2.1); ALBUMIN 2.1 g/dL (3.5-5.0); ALT/SGPT 47 U/L (21-72); AST/SGOT 56 U/L (17-59); BLOOD UREA NITROGEN 13 mg/dL (9-20); CALCIUM 8.9 mg/dl (8.6-10.4); GFR AFRICAN-AMERICAN > 60; GFR NON-AFRICAN AMERICAN > 60
[2018-02-16] MEDS: (Novolog) Insulin Aspart, Recombinant 100 u/ml 10 ml vial SC SCH ×3 (08:09→17:36)
--- NOTE | 2018-02-16 09:32 | CP.PCM.PN ---
Subjective - Date & Time of Evaluation Date of Evaluation: 02/15/18 Time of Evaluation: 18:45 - Subjective Subjective: pt is seen and evaluated at bedside, is on medical management Objective - Vital Signs/Intake and Output Vital Signs (last 24 hours): Temp Pulse Resp BP Pulse Ox 99.2 F 94 H 18 99/57 L 98 02/16/18 07:58 02/16/18 07:58 02/16/18 07:58 02/16/18 07:58 02/16/18 07:58 Intake and Output: 02/16/18 02/16/18 06:59 18:59 Output Total 650 Balance -650 - Medications Medications: Current Medications Cyproheptadine HCl (Periactin) 2 mg PO TID [facility] Docusate Sodium (Colace) 100 mg PO BID [facility] Last Admin: 02/15/18 17:40 Dose: 100 mg Hydromorphone HCl (Dilaudid) 0.5 mg IVP Q4H PRN PRN Reason: Pain, severe (8-10) Last Admin: 02/16/18 07:11 Dose: 0.5 mg Insulin Aspart (Novolog) 0 unit SC [facility] PRN Reason: Protocol Last Admin: 02/16/18 08:09 Dose: Not Given Insulin Glargine (Lantus) 10 unit SC DAILY [facility] Last Admin: 02/15/18 09:39 Dose: 10 units Metoprolol Succinate (Toprol Xl) 25 mg PO DAILY [facility] Midodrine (Proamatine) 2.5 mg PO TID [facility] Last Admin: 02/15/18 17:31 Dose: Not Given Multivitamins (Hexavitamin) 1 tab PO DAILY [facility] Last Admin: 02/09/18 09:35 Dose: 1 tab Pantoprazole Sodium (Protonix Ec Tab) 40 mg PO BID [facility] Last Admin: 02/15/18 17:40 Dose: 40 mg Rosuvastatin Calcium (Crestor) 5 mg PO [facility] Last Admin: 02/15/18 21:19 Dose: 5 mg Sertraline HCl (Zoloft) 25 mg PO DAILY [facility] Last Admin: 02/15/18 09:39 Dose: 25 mg Trazodone HCl (Desyrel) 25 mg PO [facility] Last Admin: 02/15/18 21:19 Dose: 25 mg - Labs Labs: 02/16/18 05:58 02/16/18 05:58 PT 13.6 SECONDS (9.7-12.2) H 02/11/18 04:00 INR 1.2 02/11/18 04:00 APTT 32 SECONDS (21-34) 02/04/18 06:22 Assessment and Plan (1) Abdominal pain Status: Acute (2) Hypotension (arterial) Status: Acute (3) Pulmonary embolism Status: Acute (4) Upper GI bleed Status: Acute (5) Acute non-ST elevation myocardial infarction (NSTEMI) Status: Acute (6) CHF (congestive heart failure) Status: Acute (7) Diabetes mellitus Status: Acute (8) Diabetic nephropathy Status: Acute (9) Failure to thrive in adult Status: Acute (10) Intraabdominal fluid collection Status: Acute (11) Pulmonary emboli Status: Suspected
[2018-02-16] MEDS ORDERED: Cyproheptadine 2 mg Tab PO SCH (10:00)
[2018-02-16] MEDS: Pantoprazole 40 mg EC Tab PO SCH ×2 (11:14→17:37)
[2018-02-16] MEDS: (Lantus) Insulin Glargine, Recombinant SC SCH (11:14)
--- NOTE | 2018-02-16 13:42 | CP.PCM.PN ---
Subjective - Date & Time of Evaluation Date of Evaluation: 02/16/18 Time of Evaluation: 13:39 - Subjective Subjective: CC: Poor appetite No GI bleeding Anemic Fair appetite/meal intake today Objective - Vital Signs/Intake and Output Vital Signs (last 24 hours): Temp Pulse Resp BP Pulse Ox 99.2 F 94 H 18 99/57 L 98 02/16/18 07:58 02/16/18 07:58 02/16/18 07:58 02/16/18 07:58 02/16/18 07:58 Intake and Output: 02/16/18 02/16/18 06:59 18:59 Output Total 650 Balance -650 - Medications Medications: Current Medications Cyproheptadine HCl (Periactin) 4 mg PO TID [facility] Docusate Sodium (Colace) 100 mg PO BID [facility] Last Admin: 02/16/18 11:14 Dose: 100 mg Hydromorphone HCl (Dilaudid) 0.5 mg IVP Q4H PRN PRN Reason: Pain, severe (8-10) Last Admin: 02/16/18 07:11 Dose: 0.5 mg Insulin Aspart (Novolog) 0 unit SC [facility] PRN Reason: Protocol Last Admin: 02/16/18 08:09 Dose: Not Given Insulin Glargine (Lantus) 10 unit SC DAILY [facility] Last Admin: 02/16/18 11:14 Dose: 10 units Metoprolol Succinate (Toprol Xl) 25 mg PO DAILY [facility] Last Admin: 02/16/18 11:14 Dose: 25 mg Midodrine (Proamatine) 2.5 mg PO TID [facility] Last Admin: 02/16/18 11:15 Dose: Not Given Multivitamins (Hexavitamin) 1 tab PO DAILY [facility] Last Admin: 02/09/18 09:35 Dose: 1 tab Pantoprazole Sodium (Protonix Ec Tab) 40 mg PO BID [facility] Last Admin: 02/16/18 11:14 Dose: 40 mg Rosuvastatin Calcium (Crestor) 5 mg PO [facility] Last Admin: 02/15/18 21:19 Dose: 5 mg Sertraline HCl (Zoloft) 25 mg PO DAILY [facility] Last Admin: 02/16/18 11:14 Dose: 25 mg Trazodone HCl (Desyrel) 25 mg PO [facility] Last Admin: 02/15/18 21:19 Dose: 25 mg - Labs Labs: 02/16/18 05:58 02/16/18 05:58 PT 13.6 SECONDS (9.7-12.2) H 02/11/18 04:00 INR 1.2 02/11/18 04:00 APTT 32 SECONDS (21-34) 02/04/18 06:22 - Constitutional Appears: Chronically Ill - Respiratory Exam Respiratory Exam: NORMAL BREATHING PATTERN - GI/Abdominal Exam GI & Abdominal Exam: Soft. absent: Tenderness Assessment and Plan (1) Abdominal pain Status: Acute (2) Pulmonary embolism Status: Acute (3) Upper GI bleed Assessment & Plan: stable DU with blood clot on EGD 2 weeks ago senior living PPI needed Status: Acute (4) Acute non-ST elevation myocardial infarction (NSTEMI) Status: Acute (5) Perforated abdominal viscus Status: Acute (6) Failure to thrive in adult Assessment & Plan: Eating inconsistently High risk PEG - see previous notes. Prefer nutritional supplements and encouragement from staff to eat. Swallow eval not able to be done, pt refused. Status: Acute
--- NOTE | 2018-02-16 14:12 | CP.PCM.PN ---
Subjective - Date & Time of Evaluation Date of Evaluation: 02/16/18 Time of Evaluation: 14:12 - Subjective Subjective: PATIENT WAS ADMITTED FOR PULM EMBOLISM AND ABDOMINAL PAIN ALERT Objective - Vital Signs/Intake and Output Vital Signs (last 24 hours): Temp Pulse Resp BP Pulse Ox 99.2 F 94 H 18 99/57 L 98 02/16/18 07:58 02/16/18 07:58 02/16/18 07:58 02/16/18 07:58 02/16/18 07:58 Intake and Output: 02/16/18 02/16/18 06:59 18:59 Output Total 650 Balance -650 - Medications Medications: Current Medications Cyproheptadine HCl (Periactin) 4 mg PO TID [facility] Last Admin: 02/16/18 13:48 Dose: Not Given Docusate Sodium (Colace) 100 mg PO BID [facility] Last Admin: 02/16/18 11:14 Dose: 100 mg Hydromorphone HCl (Dilaudid) 0.5 mg IVP Q4H PRN PRN Reason: Pain, severe (8-10) Last Admin: 02/16/18 07:11 Dose: 0.5 mg Insulin Aspart (Novolog) 0 unit SC [facility] PRN Reason: Protocol Last Admin: 02/16/18 13:26 Dose: 3 unit Insulin Glargine (Lantus) 10 unit SC DAILY [facility] Last Admin: 02/16/18 11:14 Dose: 10 units Metoprolol Succinate (Toprol Xl) 25 mg PO DAILY [facility] Last Admin: 02/16/18 11:14 Dose: 25 mg Midodrine (Proamatine) 2.5 mg PO TID [facility] Last Admin: 02/16/18 13:50 Dose: 2.5 mg Multivitamins (Hexavitamin) 1 tab PO DAILY [facility] Last Admin: 02/09/18 09:35 Dose: 1 tab Pantoprazole Sodium (Protonix Ec Tab) 40 mg PO BID [facility] Last Admin: 02/16/18 11:14 Dose: 40 mg Rosuvastatin Calcium (Crestor) 5 mg PO [facility] Last Admin: 02/15/18 21:19 Dose: 5 mg Sertraline HCl (Zoloft) 25 mg PO DAILY [facility] Last Admin: 02/16/18 11:14 Dose: 25 mg Trazodone HCl (Desyrel) 25 mg PO [facility] Last Admin: 02/15/18 21:19 Dose: 25 mg - Labs Labs: 02/16/18 05:58 02/16/18 05:58 PT 13.6 SECONDS (9.7-12.2) H 02/11/18 04:00 INR 1.2 02/11/18 04:00 APTT 32 SECONDS (21-34) 02/04/18 06:22 Assessment and Plan - Assessment and Plan (Free Text) Assessment: PATEINT SEEN AND EXAMINED AT THE BEDSIDE LUNG SOUND CLEAR ANNA / AFEBRILE / LAB WORK WNL / VITAL SIGN STABLE NO SIGN OF DISTRESS NOTED CT REVIEWED. PERIPANCREATIC FLUID COLLECTION MEASURED 7 CM X 4 CM ON 12/24/2017. IT CURRENTLY MEASURES 6 X 1. 5CM. THE SMALL PERIPANCREATIC FLUID COLLECTION IS NOT AMENABLE TO PERCUTANEOUS DRAINAGE. PULM EMBOLISM NO INDICATION FOR FULL ANTICOAGULATION DUE TO ADEQUATE OXYGENATION, ONLY A SMALL SUBSEGMENTAL DEFECT ON CT AND ANEMIA PULMONOLOGY ON CONSULT ALEYDA PÉREZ APPRECIATED. NSTEMI (TYPE II), HYPOTENSION (STABLE), HLD, MULTIVESSEL CAD, WIDE COMPLEX TACHYCARDIA (RESOLVED) ECHO ON 12/25 SHOWED 65%-70% EF AND GRADE I ABNORMAL RELAXATION PATTERN. CARDIOLOGY ON CONSULT ALEYDA ROSALES APPRECIATED NOT A CANDIDATE FOR CABG PER CARDIOLOGY PER GI DR ISATU ROBERTSON WITH BLOOD CLOT ON EGD 2 WEEKS AGO GROUP HOME PPI NEEDED HIGH RISK PEG - PREFER NUTRITIONAL SUPPLEMENTS AND ENCOURAGEMENT CALORIE COUNT DONE PATIENT ATE ABOUT 75 % OF HIS MEAL DISCUSS WITH DR COATS WHO AGREE AND CLEAR FOR DC PLACE UNDER THE SERVICE OF DR PITTMAN AT [facility]---CALL DR PITTMAN FOR ADMITTING ORDER CONTINUE ALL YOUR HOME MEDICATION ACTIVITY TOLERATED AND FACILITY PROTOCOL CALL DR PITTMAN FOR FURTHER ORDER
[2018-02-16 17:45] VITALS: BP 95/59; PULSE 78; RESP 18; TEMP 99; O2SAT 100
--- NOTE | 2018-02-17 00:10 | CP.PCM.DIS ---
Provider - Provider Date of Admission: 01/26/18 21:49 Attending physician: Alex Pittman MD Time Spent in preparation of Discharge (in minutes): 45 Diagnosis - Discharge Diagnosis (1) Abdominal pain Status: Acute (2) Hypotension (arterial) Status: Acute (3) Pulmonary embolism Status: Acute (4) Upper GI bleed Status: Acute (5) Acute non-ST elevation myocardial infarction (NSTEMI) Status: Acute (6) CHF (congestive heart failure) Status: Acute (7) Diabetes mellitus Status: Acute (8) Diabetic nephropathy Status: Acute (9) Failure to thrive in adult Status: Acute (10) Intraabdominal fluid collection Status: Acute (11) Pulmonary emboli Status: Suspected Hospital Course - Lab Results Lab Results: Micro Results 02/13/18 22:20 Nose MRSA Culture (Admit) - Final MRSA NOT DETECTED 01/27/18 08:57 Blood-Venous Blood Culture - Final NO GROWTH AFTER 5 DAYS 01/27/18 08:57 Blood-Venous Blood Culture - Final NO GROWTH AFTER 5 DAYS 01/27/18 08:57 Urine,Catheterized Urine Culture - Final No Growth (<1,000 CFU/ML) 01/27/18 07:09 Nose MRSA Culture (Admit) - Final MRSA NOT DETECTED Most Recent Lab Values WBC 5.2 K/uL (4.8-10.8) 02/16/18 05:58 RBC 2.64 Mil/uL (4.40-5.90) L 02/16/18 05:58 Hgb 7.8 g/dL (12.0-18.0) L 02/16/18 05:58 Hct 23.7 % (35.0-51.0) L 02/16/18 05:58 MCV 89.8 fL (80.0-94.0) 02/16/18 05:58 MCH 29.7 pg (27.0-31.0) 02/16/18 05:58 MCHC 33.0 g/dL (33.0-37.0) 02/16/18 05:58 RDW 17.5 % (11.5-14.5) H 02/16/18 05:58 Plt Count 185 K/uL (130-400) 02/16/18 05:58 MPV 9.3 fL (7.2-11.7) 02/16/18 05:58 Neut % (Auto) 46.6 % (50.0-75.0) L 02/16/18 05:58 Lymph % (Auto) 38.1 % (20.0-40.0) 02/16/18 05:58 Titus % (Auto) 13.1 % (0.0-10.0) H 02/16/18 05:58 Eos % (Auto) 1.4 % (0.0-4.0) 02/16/18 05:58 Baso % (Auto) 0.8 % (0.0-2.0) 02/16/18 05:58 Neut # (Auto) 2.4 K/uL (1.8-7.0) 02/16/18 05:58 Lymph # (Auto) 2.0 K/uL (1.0-4.3) 02/16/18 05:58 Titus # (Auto) 0.7 K/uL (0.0-0.8) 02/16/18 05:58 Eos # (Auto) 0.1 K/uL (0.0-0.7) 02/16/18 05:58 Baso # (Auto) 0.0 K/uL (0.0-0.2) 02/16/18 05:58 Neutrophils % (Manual) 96 % (50-75) H 01/30/18 06:06 Band Neutrophils % 4 % (0-2) H 01/28/18 07:09 Lymphocytes % (Manual) 2 % (20-40) L 01/30/18 06:06 Monocytes % (Manual) 2 % (0-10) 01/30/18 06:06 Toxic Granulation Present 01/28/18 07:09 Platelet Estimate Normal (NORMAL) 01/30/18 06:06 Large Platelets Present 01/28/18 07:09 Giant Platelets Present 01/28/18 07:09 Polychromasia Slight 01/30/18 06:06 Hypochromasia (manual) Slight 01/30/18 06:06 Poikilocytosis (manual Slight 01/28/18 22:58 Anisocytosis (manual) Slight 01/28/18 22:58 Ovalocytes Slight 01/28/18 22:58 PT 13.6 SECONDS (9.7-12.2) H 02/11/18 04:00 INR 1.2 02/11/18 04:00 APTT 32 SECONDS (21-34) 02/04/18 06:22 Puncture Site Rb 01/27/18 12:24 pCO2 29 mm/Hg (35-45) L 01/27/18 12:24 pO2 98 mm/Hg (80-100) 01/27/18 12:24 HCO3 20.6 mmol/L (21-28) L 01/27/18 12:24 ABG pH 7.40 (7.35-7.45) 01/27/18 12:24 ABG Total CO2 18.9 mmol/L (22-28) L 01/27/18 12:24 ABG O2 Saturation 99.3 % (95-98) H 01/27/18 12:24 ABG Base Excess -5.5 mmol/L (-2.0-3.0) L 01/27/18 12:24 Eyal Test Na 01/27/18 12:24 ABG Potassium 4.3 mmol/L (3.6-5.2) 01/27/18 12:24 VBG pH 7.37 (7.32-7.43) 01/27/18 04:00 VBG pCO2 40 mmHg (40-60) 01/27/18 04:00 VBG HCO3 21.7 mmol/L 01/27/18 04:00 VBG Total CO2 24.3 mmol/L (22-28) 01/27/18 04:00 VBG O2 Sat (Calc) 40.6 % (40-65) 01/27/18 04:00 VBG Base Excess -2.0 mmol/L (0.0-2.0) L 01/27/18 04:00 VBG Potassium 3.5 mmol/L (3.6-5.2) L 01/27/18 04:00 A-a O2 Difference 80.0 mm/Hg 01/27/18 12:24 Respiratory Index 0.8 01/27/18 12:24 Sodium 140.0 mmol/l (132-148) 01/27/18 12:24 Chloride 111.0 mmol/L (98-107) H 01/27/18 12:24 Glucose 406 mg/dl (75-110) H* 01/27/18 12:24 Lactate 4.2 mmol/L (0.7-2.1) H* 05/19/18 12:24 Liter Flow 3.0 01/27/18 12:24 FiO2 30.0 % 01/27/18 12:24 Crit Value Called To Dr sherine mcleod 01/27/18 12:24 Crit Value Called By Sonam hinkle [employer] area supervisor 01/27/18 12:24 Crit Value Read Back Y 01/27/18 12:24 Blood Gas Notified Time 1230 01/27/18 12:24 Sodium 136 mmol/L (132-148) 02/16/18 05:58 Potassium 3.6 mmol/L (3.6-5.2) 02/16/18 05:58 Chloride 102 mmol/L (98-107) 02/16/18 05:58 Carbon Dioxide 28 mmol/L (22-30) 02/16/18 05:58 Anion Gap 9 (10-20) L 02/16/18 05:58 BUN 13 mg/dL (9-20) 02/16/18 05:58 Creatinine 0.8 mg/dL (0.8-1.5) 02/16/18 05:58 Est GFR ( Amer) > 60 02/16/18 05:58 Est GFR (Non-Af Amer) > 60 02/16/18 05:58 POC Glucose (mg/dL) 155 mg/dL (65-110) H 02/16/18 16:06 Random Glucose 109 mg/dL (75-110) 02/16/18 05:58 Lactic Acid 1.3 mmol/L (0.7-2.1) 02/03/18 21:07 Calcium 8.9 mg/dl (8.6-10.4) 02/16/18 05:58 Phosphorus 2.4 mg/dL (2.5-4.5) L 02/11/18 06:00 Magnesium 1.1 mg/dL (1.6-2.3) L 02/11/18 06:00 Total Bilirubin < 0.1 mg/dL (0.2-1.3) L 02/16/18 05:58 AST 56 U/L (17-59) 02/16/18 05:58 ALT 47 U/L (21-72) 02/16/18 05:58 Alkaline Phosphatase 75 U/L (38-126) 02/16/18 05:58 Troponin I 0.5170 ng/mL (0.00-0.120) H* 01/28/18 07:09 Total Protein 4.8 g/dL (6.3-8.3) L 02/16/18 05:58 Albumin 2.1 g/dL (3.5-5.0) L 02/16/18 05:58 Globulin 2.8 gm/dL (2.2-3.9) 02/16/18 05:58 Albumin/Globulin Ratio 0.7 (1.0-2.1) L 02/16/18 05:58 Lipase 297 U/L (23-300) 01/26/18 16:27 Ethanolamine None detected 01/27/18 17:10 Arterial Blood Potassium 4.3 mmol/L (3.6-5.2) 01/27/18 12:24 Venous Blood Potassium 3.5 mmol/L (3.6-5.2) L 01/27/18 04:00 Urine Color Yellow (YELLOW) 01/26/18 17:31 Urine Clarity Clear (Clear) 01/26/18 17:31 Urine pH 6.0 (5.0-8.0) 01/26/18 17:31 Ur Specific [place] 1.023 (1.003-1.030) 01/26/18 17:31 Urine Protein 1+ mg/dL (NEGATIVE) H 01/26/18 17:31 Urine Glucose (UA) 3+ mg/dL (Normal) H 01/26/18 17:31 Urine Ketones Negative mg/dL (NEGATIVE) 01/26/18 17:31 Urine Blood Negative (NEGATIVE) 01/26/18 17:31 Urine Nitrate Negative (NEGATIVE) 01/26/18 17:31 Urine Bilirubin Negative (NEGATIVE) 01/26/18 17:31 Urine Urobilinogen Normal mg/dL (0.2-1.0) 01/26/18 17:31 Ur Leukocyte Esterase Neg [place]/uL (Negative) 01/26/18 17:31 Urine WBC (Auto) < 1 /hpf (0-5) 01/26/18 17:31 Urine RBC (Auto) < 1 /hpf (0-3) 01/26/18 17:31 Urine Bacteria Occ (<OCC) H 01/26/18 17:31 Stool Occult Blood Positive (NEGATIVE) H 02/11/18 17:18 Random Vancomycin 15.3 ug/mL 01/30/18 06:06 Urine Opiates Screen Negative (NEGATIVE) 01/27/18 14:56 Urine Methadone Screen Negative (NEGATIVE) 01/27/18 14:56 Ur Barbiturates Screen Positive (NEGATIVE) H 01/27/18 14:56 Ur Phencyclidine Scrn Negative (NEGATIVE) 01/27/18 14:56 Ur Amphetamines Screen Negative (NEGATIVE) 01/27/18 14:56 U Benzodiazepines Scrn Negative (NEGATIVE) 01/27/18 14:56 U Oth Cocaine Metabols Negative (NEGATIVE) 01/27/18 14:56 U Cannabinoids Screen Negative (NEGATIVE) 01/27/18 14:56 Toxicology Panel see note 01/27/18 17:10 Methyl Alcohol Level None detected 01/27/18 17:10 Isopropanol None detected 01/27/18 17:10 Acetone Level None detected 01/27/18 17:10 Blood Type O POSITIVE 02/03/18 14:26 Antibody Screen Negative 02/03/18 14:26 - Hospital Course Hospital Course: PATEINT SEEN AND EXAMINED AT THE BEDSIDE LUNG SOUND CLEAR ANNA / AFEBRILE / LAB WORK WNL / VITAL SIGN STABLE NO SIGN OF DISTRESS NOTED CT REVIEWED. PERIPANCREATIC FLUID COLLECTION MEASURED 7 CM X 4 CM ON 12/24/2017. IT CURRENTLY MEASURES 6 X 1. 5CM. THE SMALL PERIPANCREATIC FLUID COLLECTION IS NOT AMENABLE TO PERCUTANEOUS DRAINAGE. PULM EMBOLISM NO INDICATION FOR FULL ANTICOAGULATION DUE TO ADEQUATE OXYGENATION, ONLY A SMALL SUBSEGMENTAL DEFECT ON CT AND ANEMIA PULMONOLOGY ON CONSULT ALEYDA PÉREZ APPRECIATED. NSTEMI (TYPE II), HYPOTENSION (STABLE), HLD, MULTIVESSEL CAD, WIDE COMPLEX TACHYCARDIA (RESOLVED) ECHO ON 12/25 SHOWED 65%-70% EF AND GRADE I ABNORMAL RELAXATION PATTERN. CARDIOLOGY ON CONSULT ALEYDA ROSALES APPRECIATED NOT A CANDIDATE FOR CABG PER CARDIOLOGY PER GI DR ISATU ROBERTSON WITH BLOOD CLOT ON EGD 2 WEEKS AGO [employer] PPI NEEDED HIGH RISK PEG - PREFER NUTRITIONAL SUPPLEMENTS AND ENCOURAGEMENT CALORIE COUNT DONE PATIENT ATE ABOUT 75 % OF HIS MEAL CLEAR FOR DC TO [facility] UNDER THE SERVICE OF DR PITTMAN AT [facility]---CALL DR PITTMAN FOR ADMITTING ORDER CONTINUE ALL YOUR HOME MEDICATION ACTIVITY TOLERATED AND FACILITY PROTOCOL CALL DR ZAIN FOR FURTHER ORDER Discharge Exam - Head Exam Head Exam: ATRAUMATIC, NORMAL INSPECTION, NORMOCEPHALIC Discharge Plan - Follow Up Plan Condition: SERIOUS Disposition: HOME/ ROUTINE Instructions: Atrial Fibrillation (DC), Gastrointestinal Bleeding (DC), Pulmonary Embolism (Blood Clot in the Lungs) (DC), Low Blood Pressure (DC) Additional Instructions: PLACE UNDER THE SERVICE OF DR PITTMAN AT [facility]---CALL DR PITTMAN FOR ADMITTING ORDER CONTINUE ALL YOUR HOME MEDICATION STOP ANY ANTICOAGULANT DUE TO HIGH RISK OF BLEEDING NEW PRESCRIPTION GIVEN PERIACTIN ENSURE SUPPLEMENT ACTIVITY TOLERATED AND FACILITY PROTOCOL PATIENT NEED TO BE FEED AT ALL TIME CALL DR PITTMAN FOR FURTHER ORDER Referrals: Obed Faye MD [Staff Provider] - Brandon Milan MD [Staff Provider] - Alex Pittman MD [Staff Provider] - Duke Armijo Jr., MD [Staff Provider] - Spencer Dawson MD [Staff Provider] -
== END 2018-02-16 19:45 | DRG 871 ==
LOC: C.ER 14:58 → C.6T 21:49 → C.9E 21:49 → C.9I 01-27 06:10 → C.5S 02-13 22:14
PROVIDERS: ADMIT Internal Medicine; ATTEND Internal Medicine
PROC: 06HY33Z Insertion of Infusion Device into Lower Vein, Percutaneous Approach (ICD-10-PCS; 2018-01-27)
PROC: 02HV33Z Insertion of Infusion Device into Superior Vena Cava, Percutaneous Approach (ICD-10-PCS; 2018-01-29)
PROC: 0DJ08ZZ Inspection of Upper Intestinal Tract, Via Natural or Artificial Opening Endoscopic (ICD-10-PCS; principal; 2018-02-03 09:00)
DX: A41.9 Sepsis, unspecified organism (principal); I21.A1 Myocardial infarction type 2; I26.99 Other pulmonary embolism without acute cor pulmonale; J96.01 Acute respiratory failure with hypoxia; G92 Toxic encephalopathy; R65.21 Severe sepsis with septic shock; I82.629 Acute embolism and thrombosis of deep veins of unspecified upper extremity; J98.11 Atelectasis; K26.9 Duodenal ulcer, unspecified as acute or chronic, without hemorrhage or perforation; E78.5 Hyperlipidemia, unspecified; E83.42 Hypomagnesemia; E11.65 Type 2 diabetes mellitus with hyperglycemia; I11.0 Hypertensive heart disease with heart failure; I25.10 Atherosclerotic heart disease of native coronary artery without angina pectoris; I48.91 Unspecified atrial fibrillation; I50.9 Heart failure, unspecified; D50.0 Iron deficiency anemia secondary to blood loss (chronic); D69.6 Thrombocytopenia, unspecified; E11.649 Type 2 diabetes mellitus with hypoglycemia without coma; Z87.891 Personal history of nicotine dependence; K59.09 Other constipation; K29.60 Other gastritis without bleeding; E11.51 Type 2 diabetes mellitus with diabetic peripheral angiopathy without gangrene; E11.21 Type 2 diabetes mellitus with diabetic nephropathy; R62.7 Adult failure to thrive; Z88.0 Allergy status to penicillin

== ENCOUNTER 2018-02-21 12:35 | Inpatient (IN) | payer MEDICARE ==
[2018-02-21 12:35] VITALS: PULSE 105; BMI 26.4
[2018-02-21] MEDS ORDERED: Sodium Chloride 0.9% 500 ML IV ONE ×2 (13:40→15:30)
--- NOTE | 2018-02-21 13:41 | RAD ---
PROCEDURE: CHEST RADIOGRAPH, 1 VIEW HISTORY: WEAKNESS COMPARISON: Chest radiograph dated 02/01/2018 FINDINGS: LUNGS: Stable chronic prominence of the bilateral interstitial markings with superimposed pulmonary vascular congestion and bibasilar atelectasis PLEURA: Small bilateral pleural effusions. No appreciable pneumothorax. CARDIOVASCULAR: Atherosclerotic aortic calcifications. Cardiomediastinal silhouette stably enlarged. OSSEOUS STRUCTURES: Scoliosis. Unchanged. VISUALIZED UPPER ABDOMEN: Normal. OTHER FINDINGS: Right upper extremity PICC no longer present. IMPRESSION: Pulmonary vascular congestion and small bilateral pleural effusion.
[2018-02-21 13:49] LABS: BASO # 0.1 K/uL (0.0-0.2); BASO % 0.9 % (0.0-2.0); EOS # 0.2 K/uL (0.0-0.7); HEMOGLOBIN 9.9 g/dL (12.0-18.0); LYMPH # 3.7 K/uL (1.0-4.3); LYMPH % 44.9 % (20.0-40.0); MEAN CELL VOLUME 89.5 fL (80.0-94.0); MEAN CORPUSCULAR HEMOGLOBIN 29.1 pg (27.0-31.0); MEAN CORPUSCULAR HGB CONC 32.5 g/dL (33.0-37.0); MEAN PLATELET VOLUME 9.1 fL (7.2-11.7); MONO # 0.5 K/uL (0.0-0.8); MONO % 6.4 % (0.0-10.0); NEUT # 3.7 K/uL (1.8-7.0); NEUT % 45.8 % (50.0-75.0); NRBC % 0.1 % (0.0-2.0); RBC 3.39 Mil/uL (4.40-5.90); RED CELL DISTRIBUTION WIDTH 17.6 % (11.5-14.5); WHITE BLOOD COUNT 8.2 K/uL (4.8-10.8)
[2018-02-21 14:21] LABS: ALB/GLOB RATIO 0.8 (1.0-2.1); ALBUMIN 2.7 g/dL (3.5-5.0); ALT/SGPT 231 U/L (21-72); AST/SGOT 199 U/L (17-59); BLOOD UREA NITROGEN 9 mg/dL (9-20); CALCIUM 9.2 mg/dl (8.6-10.4); GFR AFRICAN-AMERICAN > 60; GFR NON-AFRICAN AMERICAN > 60
[2018-02-21 14:27] LABS: CK-MB 1.56 ng/mL (0.0-3.38)
--- NOTE | 2018-02-21 14:27 | C.PDOC ---
History Of Present Illness Patiet sent from [place] for evaluation of generalized weakness, lethargy and poor appetite. Patient is awake and alert, is c/o feeling diffuse body pain but is not specific about location. History is limited due to clinical condition. Time Seen by Provider: 02/21/18 13:08 Chief Complaint (Nursing): Weakness/Neurological Deficit History Per: Patient, Other ([place] records, EMS) History/Exam Limitations: clinical condition Past Medical History Reviewed: Historical Data, Nursing Documentation, Vital Signs Vital Signs: Last Vital Signs Temp 97 F L 02/22/18 15:00 Pulse 78 02/22/18 18:00 Resp 20 02/22/18 15:00 BP 111/74 02/22/18 18:17 Pulse Ox 100 02/22/18 15:00 - Medical History PMH: Arthritis, HTN, Hypercholesterolemia, Hyperlipidemia - [facility] Procedures ASSISTANCE WITH RESPIRATORY VENTILATION, 24-96 HRS, CPAP (12/22/17) DRAINAGE OF ABDOMINAL WALL WITH DRAIN DEV, OPEN APPROACH (12/22/17) FLUOROSCOPY OF LEFT HEART USING OTHER CONTRAST (12/22/17) FLUOROSCOPY OF MULTIPLE CORONARY ARTERIES USING OTH CONTRAST (12/22/17) INSERT OF INFUSION PUMP INTO ABD SUBCU/FASCIA, OPEN APPROACH (12/22/17) INSERTION OF INFUSION DEV INTO SUP VENA CAVA, PERC APPROACH (01/26/18) INSERTION OF INFUSION DEVICE INTO LOWER VEIN, PERC APPROACH (01/26/18) INSPECTION OF UPPER INTESTINAL TRACT, ENDO (01/26/18) INTRODUCTION OF ANALG/HYPNOT/SEDAT INTO SUBCU, PERC APPROACH (12/22/17) MEASURE OF CARDIAC SAMPL & PRESSURE, L HEART, PERC APPROACH (12/22/17) SUPPLEMENT DUODENUM WITH AUTOL SUB, OPEN APPROACH (12/22/17) Family History: States: No Known Family Hx - Social History Hx Tobacco Use: No Hx Alcohol Use: No Hx Substance Use: No - Immunization History Hx Tetanus Toxoid Vaccination: No Hx Influenza Vaccination: Yes Hx Pneumococcal Vaccination: Yes Review Of Systems Review Of Systems: ROS cannot be obtained secondary to pt's inabilty to answer questions. Physical Exam - Physical Exam Appears: Non-toxic, Chronically Ill, Other (cachectic and fatigued appearing ) Skin: Dry Eye(s): bilateral: Normal Inspection Oral Mucosa: Dry, Other (fissured tongue ) Cardiovascular: Rhythm Regular Respiratory: Normal Breath Sounds, No Rales, No Rhonchi, No Wheezing Gastrointestinal/Abdominal: Normal Exam, Bowel Sounds, Soft, No Tenderness Neurological/Psych: Other (awake & alert, but minimally verbal, moving all 4 extremities spontaneously) ED Course And Treatment - Laboratory Results Result Diagrams: 02/22/18 06:24 02/22/18 06:24 ECG: Interpreted By Me, Viewed By Me (sinus rhythm 97bpm with PVCs, left axis deviation, T wave inversions aVL, no acute ST changes) ECG Interpretation: Abnormal O2 Sat by Pulse Oximetry: 95 (ra) Pulse Ox Interpretation: Normal - Radiology CXR: Interpreted by Me, Viewed By Me (pulmonary vascular congestion ) CXR Interpretation: No: Infiltrates - CT Scan/US ct head Other Rad Studies (CT/US): Read By Radiologist, Radiology Report Reviewed CT/US Interpretation: Accession No. : [id number]. Patient Name / ID : DAVID David / [id number]. Exam Date : 02/21/2018 17:23:02 ( Approved ). Study Comment : Sex / Age : M / 77Y. Creator : Tony Colin MD. Dictator : Tony Colin MD. Cash Accountant : Quad Stayer : Tony Colin MD. Approver2 : Report Date : 02/21/2018 17:48:53. My Comment : . PROCEDURE: CT HEAD WITHOUT CONTRAST. HISTORY: AMS. COMPARISON: 10/29/2017. TECHNIQUE: Axial computed tomography images were obtained through the head/ brain without intravenous contrast. Radiation dose: Total exam DLP = 936.68 mGy-cm. This CT exam was performed using one or more of the following dose reduction techniques: Automated exposure control, adjustment of the mA and/or kV according to patient size, and/or use of iterative reconstruction technique. FINDINGS: HEMORRHAGE: No intracranial hemorrhage. BRAIN: No mass effect or edema. Moderate diffuse atrophy. Moderate periventricular white matter lucency with patchy and confluent deep white matter lucency, consistent age- related microvascular ischemic change. Small old bilateral basal ganglia and thalamic lacunar infarcts. No evidence of acute infarct. VENTRICLES: Unremarkable. No hydrocephalus. CALVARIUM: Unremarkable. PARANASAL SINUSES: Unremarkable as visualized. No significant inflammatory changes. MASTOID AIR CELLS: Very small nonspecific left mastoid effusion. OTHER FINDINGS: None. IMPRESSION: No intracranial mass, hemorrhage or evidence of acute infarct. Atrophy and chronic white matter ischemic change. 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 Progress Note: Blood work, UA, CXR, EKG, CT head ordered and reviewed. Prior records reviewed, patient has h/o RUE DVT, was deemed unfit for anticoagulation during prior admission. 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 - Physician Consult Information Physician Contacted: Alex Siddiqui Outcome Of Conversation: Discussed patient with PMD, agrees with obs tele for dehydration, lethargy Disposition - Disposition Disposition: HOSPITALIZED Disposition Time: 16:47 Condition: STABLE - Clinical Impression Clinical Impression: Lethargy, Dehydration Decision To Admit - Pt Status Changed To: Hospital Disposition Of: Observation - InPatient: Physician Admission Certification: I certify that this patient requires 2 or more midnights of care for the following reason:: see notes - . Bed Request Type: Regular Admitting Physician: Alex Siddiqui Patient Diagnosis: Dehydration, Lethargy
[2018-02-21 16:15] LABS: URINE BILIRUBIN NEGATIVE (NEGATIVE); URINE BLOOD NEGATIVE (NEGATIVE); URINE CLARITY Clear (Clear); URINE COLOR Yellow (YELLOW); URINE GLUCOSE (UA) 1+ mg/dL (Normal); URINE LEUKOCYTE ESTERASE NEG Leu/uL (Negative); URINE PROTEIN NEGATIVE (NEGATIVE); URINE UROBILINOGEN NORMAL mg/dL (0.2-1.0)
--- NOTE | 2018-02-21 17:50 | CT ---
PROCEDURE: CT HEAD WITHOUT CONTRAST. HISTORY: AMS COMPARISON: 10/29/2017 TECHNIQUE: Axial computed tomography images were obtained through the head/brain without intravenous contrast. Radiation dose: Total exam DLP = 936.68 mGy-cm. This CT exam was performed using one or more of the following dose reduction techniques: Automated exposure control, adjustment of the mA and/or kV according to patient size, and/or use of iterative reconstruction technique. FINDINGS: HEMORRHAGE: No intracranial hemorrhage. BRAIN: No mass effect or edema. Moderate diffuse atrophy. Moderate periventricular white matter lucency with patchy and confluent deep white matter lucency, consistent age-related microvascular ischemic change. Small old bilateral basal ganglia and thalamic lacunar infarcts. No evidence of acute infarct. VENTRICLES: Unremarkable. No hydrocephalus. CALVARIUM: Unremarkable. PARANASAL SINUSES: Unremarkable as visualized. No significant inflammatory changes. MASTOID AIR CELLS: Very small nonspecific left mastoid effusion OTHER FINDINGS: None. IMPRESSION: No intracranial mass, hemorrhage or evidence of acute infarct. Atrophy and chronic white matter ischemic change. 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
[2018-02-21] MEDS ORDERED: Sodium Chloride 0.9% 1,000 ML IV STA (18:10)
[2018-02-21] MEDS: Lactated Ringer's 1,000 ML IV SCH (22:18)
[2018-02-22 01:22] VITALS: RESP 20
[2018-02-22] MEDS: Lactated Ringer's 1,000 ML IV SCH (05:53)
[2018-02-22 06:59] LABS: HEMOGLOBIN 9.1 g/dL (12.0-18.0); MEAN CELL VOLUME 89.1 fL (80.0-94.0); MEAN CORPUSCULAR HEMOGLOBIN 29.3 pg (27.0-31.0); MEAN CORPUSCULAR HGB CONC 32.9 g/dL (33.0-37.0); MEAN PLATELET VOLUME 8.7 fL (7.2-11.7); RBC 3.12 Mil/uL (4.40-5.90); RED CELL DISTRIBUTION WIDTH 17.3 % (11.5-14.5); WHITE BLOOD COUNT 6.2 K/uL (4.8-10.8)
[2018-02-22 07:33] LABS: ALB/GLOB RATIO 0.7 (1.0-2.1); ALBUMIN 2.3 g/dL (3.5-5.0); ALT/SGPT 163 U/L (21-72); AST/SGOT 88 U/L (17-59); BLOOD UREA NITROGEN 9 mg/dL (9-20); CALCIUM 9.1 mg/dl (8.6-10.4); GFR AFRICAN-AMERICAN > 60; GFR NON-AFRICAN AMERICAN > 60
[2018-02-22] MEDS ORDERED: Multiple Vitamins Tab PO SCH (10:00)
[2018-02-22] MEDS ORDERED: Pantoprazole 40 mg Susp UD PO SCH (10:00)
--- NOTE | 2018-02-22 15:19 | CP.PCM.PN ---
Subjective - Date & Time of Evaluation Date of Evaluation: 02/22/18 Time of Evaluation: 15:00 - Subjective Subjective: Patient seen today, awake, alert, oriented to person an d place , denies any chest pain, sob, headache, dizziness, blurred vision, c/o body ache Objective - Vital Signs/Intake and Output Vital Signs (last 24 hours): Temp Pulse Resp BP Pulse Ox 98.1 F 88 20 104/70 99 02/22/18 08:31 02/22/18 08:31 02/22/18 08:31 02/22/18 10:53 02/22/18 08:31 - Medications Medications: Current Medications Cyproheptadine HCl (Periactin) 4 mg PO [facility] Last Admin: 02/21/18 22:28 Dose: 4 mg Docusate Sodium (Colace) 100 mg PO BID [facility] Last Admin: 02/22/18 10:53 Dose: 100 mg Metoprolol Tartrate (Lopressor) 25 mg PO BID [facility] Last Admin: 02/22/18 10:53 Dose: 25 mg Midodrine (Proamatine) 2.5 mg PO TID [facility] Last Admin: 02/22/18 13:30 Dose: 2.5 mg Multivitamins (Hexavitamin) 1 tab PO DAILY [facility] Last Admin: 02/22/18 10:53 Dose: 1 tab Pantoprazole Sodium (Protonix Susp) 40 mg PO DAILY [facility] Last Admin: 02/22/18 10:56 Dose: 40 mg Rosuvastatin Calcium (Crestor) 20 mg PO [facility] Last Admin: 02/21/18 22:28 Dose: 20 mg Sertraline HCl (Zoloft) 25 mg PO DAILY [facility] Last Admin: 02/22/18 10:53 Dose: 25 mg Sitagliptin Phosphate (Januvia) 50 mg PO DAILY [facility] Last Admin: 02/22/18 10:53 Dose: 50 mg - Labs Labs: 02/22/18 06:24 02/22/18 06:24 - Constitutional Appears: Well, No Acute Distress - Respiratory Exam Respiratory Exam: Clear to Ausculation Bilateral, NORMAL BREATHING PATTERN - Cardiovascular Exam Cardiovascular Exam: REGULAR RHYTHM, +S1, +S2 - Neurological Exam Neurological Exam: Alert, Awake Assessment and Plan - Assessment and Plan (Free Text) Assessment: A/P 77 yr old male with pmhx of Arthritis, HTN, Hypercholesterolemia, Hyperlipidemia admitted with dehydration, lathargy CT- head- No intracranial mass, hemorrhage or evidence of acute infarct. Atrophy and chronic white matter ischemic change. 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 Patient clinically improved with IV hydration and mental status back to base line patient tolerated diet ,50% consumed as per RN with assistance seen by Dr. Siddiqui, today, stable for discharge back to [facility] today and Dr. Siddiqui will follow the patient at Rehab
[2018-02-22 15:50] VITALS: PULSE 78; TEMP 97
[2018-02-22 18:16] VITALS: BP 111/74
--- NOTE | 2018-02-22 18:28 | CARD ---
APPROVED REPORT EKG Measurement Heart [id number] <Conclusion> Sinus rhythm with premature supraventricular complexes Left anterior fascicular block Nonspecific T wave abnormalit Borderline low voltage in limb leads Probaly misplaced precordial leads. Please repeat Abnormal ECG
--- NOTE | 2018-02-22 22:34 | CP.PCM.HP ---
History of Present Illness - History of Present Illness History of Present Illness: CC: weakness, lethargy and fever HPI: 77 year old male with h/o type 2 DM, CAD, s/p SD s/p perforated peptic ulcer disease and abdominal surgery, pt was in custodial recently discharged from [facility], he is pale and sick, he developed weakness and lethargy and heel ulcer, he was drowsy and incontinent with Paulson in place,pt was transfer to hospital again for further evaluation Present on Admission - Present on Admission Any Indicators Present on Admission: Yes Review of Systems - Review of Systems Systems not reviewed;Unavailable: Acuity of Condition - Constitutional Constitutional: Fever, Malaise, Weakness - EENT Eyes: absent: As Per HPI, Blind Spots, Blurred Vision, Change in Vision, Decreased Night Vision, Diplopia, Discharge, Dry Eye, Exophthalmos, Floaters, Irritation, Itchy Eyes, Loss of Peripheral Vision, Pain, Photophobia, Requires Corrective Lenses, Sees Flashes, Spots in Vision, Tunnel Vision, Other Visual Disturbances, Loss of Vision, Other Ears: Dizziness. absent: As Per HPI, Decreased Hearing, Ear Discharge, Ear Pain , Tinnitus, Abnormal Hearing, Disequilibrium, Other Nose/Mouth/Throat: absent: As Per HPI, Epistaxis, Nasal Congestion, Nasal Discharge, Nasal Obstruction, Nasal Trauma, Nose Pain, Post Nasal Drip, Sinus Pain, Sinus Pressure, Bleeding Gums, Change in Voice, Dental Pain, Dry Mouth, Dysphagia, Halitosis, Hoarsness, Lip Swelling, Mouth Lesions, Mouth Pain, Odynophagia, Sore Throat, Throat Swelling, Tongue Swelling, Facial Pain, Neck Pain, Neck Mass, Other - Cardiovascular Cardiovascular: absent: As Per HPI, Acrocyanosis, Chest Pain, Chest Pain at Rest , Chest Pain with Activity, Claudication, Diaphoresis, Dyspnea, Dyspnea on Exertion, Edema, Irregular Heart Rhythm, Pain Radiating to Arm/Neck/Jaw, Leg Edema, Leg Ulcers, Lightheadedness, Orthopnea, Palpitations, Paroxysmal Nocturnal Dyspnea, Pedal Edema, Radiating Pain, Rapid Heart Rate, Slow Heart Rate, Syncope, Other - Respiratory Respiratory: Dyspnea - Gastrointestinal Gastrointestinal: Abdominal Pain - Genitourinary Genitourinary: Other (incontinent) - Musculoskeletal Musculoskeletal: Muscle Weakness, Myalgias - Integumentary Integumentary: absent: As Per HPI, Acne, Alopecia, Bleeding Lesions, Change in Hair, Change in Nails, Change in Pigmentation, Changing Lesions, Dry Skin, Erythema, Furuncle, Hirsutism, Lesions, New Lesions, Non-Healing Lesions, Photosensitivity, Pruritus, Rash, Skin Pain, Skin Ulcer, Sores, Striae, Swelling , Unusual Bruising, Wounds, Jaundice, Other - Psychiatric Psychiatric: absent: As Per HPI, Abnormal Sleep Pattern, Anhedonia, Anxiety, Auditory Hallucinations, Behavioral Changes, Change in Appetite, Change in Libido, Confusion, Depression, Difficulty Concentrating, Hallucinations, Homicidal Ideation, Hopelessness, Irritability, Memory Loss, Mood Swings, Panic Attacks, Paranoia, Suicidal Ideation, Visual Hallucinations, Tactile Hallucinations, Other Past Patient History - Infectious Disease Hx of Infectious Diseases: None - Past Medical History & Family History Past Medical History?: Yes - Past Social History Smoking Status: Former Smoker - CARDIAC Hx Hypercholesterolemia: Yes Hx Hypertension: Yes - PULMONARY Hx Respiratory Disorders: No - NEUROLOGICAL Hx Neurological Disorder: Yes Hx Syncope: Yes - HEENT Hx HEENT Problems: No - RENAL Hx Chronic Kidney Disease: No - ENDOCRINE/METABOLIC Hx Diabetes Mellitus Type 2: Yes - HEMATOLOGICAL/ONCOLOGICAL Hx Blood Disorders: No - INTEGUMENTARY Hx Dermatological Problems: No - MUSCULOSKELETAL/RHEUMATOLOGICAL Hx Arthritis: Yes - GASTROINTESTINAL Hx Gastrointestinal Disorders: Yes Hx Gastroesophageal Reflux: Yes - GENITOURINARY/GYNECOLOGICAL Hx Genitourinary Disorders: No - PSYCHIATRIC Hx Substance Use: No - SURGICAL HISTORY Hx Surgeries: Yes Other/Comment: left knee replacement, and left nerve repair, left and right hand nerve repair, Exp.Lap 12/22/17, - ANESTHESIA Hx Anesthesia: Yes Hx Anesthesia Reactions: No Hx Malignant Hyperthermia: No Meds Home Medications: Home Medication List Medication Instructions Recorded Confirmed Type Rosuvastatin Calcium [Crestor] 10 mg PO HS #0 tab 02/22/18 02/21/18 Rx Allergies/Adverse Reactions: Allergies Allergy/AdvReac Type Severity Reaction Status Date / Time Penicillins Allergy Mild Verified 01/26/18 15:08 Physical Exam - Constitutional Appears: No Acute Distress, Chronically Ill - Head Exam Head Exam: ATRAUMATIC, NORMAL INSPECTION, NORMOCEPHALIC - Eye Exam Eye Exam: EOMI, Normal appearance, PERRL Pupil Exam: NORMAL ACCOMODATION, PERRL - ENT Exam ENT Exam: Mucous Membranes Dry - Neck Exam Neck exam: Positive for: Normal Inspection - Respiratory Exam Respiratory Exam: Clear to Auscultation Bilateral, NORMAL BREATHING PATTERN - Cardiovascular Exam Cardiovascular Exam: REGULAR RHYTHM - GI/Abdominal Exam GI & Abdominal Exam: Normal Bowel Sounds, Soft. absent: Tenderness - Extremities Exam Additional comments: swelling on right wrist on dorsum, no erythema Results - Vital Signs Recent Vital Signs: Last Vital Signs Temp 97 F L 02/22/18 15:00 Pulse 78 02/22/18 15:00 Resp 20 02/22/18 15:00 BP 111/74 02/22/18 18:17 Pulse Ox 100 02/22/18 15:00 - Labs Result Diagrams: 02/22/18 06:24 02/22/18 06:24 Labs: Laboratory Results - last 24 hr 02/22/18 02/22/18 02/22/18 06:24 06:24 12:52 WBC 6.2 RBC 3.12 L Hgb 9.1 L Hct 27.8 L MCV 89.1 MCH 29.3 MCHC 32.9 L RDW 17.3 H Plt Count 309 MPV 8.7 Sodium 143 Potassium 3.6 Chloride 106 Carbon Dioxide 26 Anion Gap 14 BUN 9 Creatinine 0.8 Est GFR ( Amer) > 60 Est GFR (Non-Af Amer) > 60 POC Glucose (mg/dL) 247 H Random Glucose 169 H Calcium 9.1 Total Bilirubin 0.3 AST 88 H D ALT 163 H D Alkaline Phosphatase 167 H Total Protein 5.4 L Albumin 2.3 L Globulin 3.1 Albumin/Globulin Ratio 0.7 L 02/22/18 16:49 WBC RBC Hgb Hct MCV MCH MCHC RDW Plt Count MPV Sodium Potassium Chloride Carbon Dioxide Anion Gap BUN Creatinine Est GFR ( Amer) Est GFR (Non-Af Amer) POC Glucose (mg/dL) 260 H Random Glucose Calcium Total Bilirubin AST ALT Alkaline Phosphatase Total Protein Albumin Globulin Albumin/Globulin Ratio Assessment & Plan (1) Dehydration Status: Acute (2) Abdominal pain Status: Acute (3) CAD (coronary artery disease) Status: Acute (4) CHF (congestive heart failure) Status: Acute (5) Diabetes mellitus Status: Acute (6) Hypotension (arterial) Status: Acute
--- NOTE | 2018-02-22 22:47 | CP.PCM.DIS ---
Provider - Provider Date of Admission: 02/21/18 19:20 Attending physician: Alex Siddiqui MD Time Spent in preparation of Discharge (in minutes): 45 Diagnosis - Discharge Diagnosis (1) Dehydration Status: Acute (2) Abdominal pain Status: Acute (3) CAD (coronary artery disease) Status: Acute (4) CHF (congestive heart failure) Status: Acute (5) Diabetes mellitus Status: Acute (6) Hypotension (arterial) Status: Acute Hospital Course - Lab Results Lab Results: Micro Results 02/21/18 13:00 Blood Blood Culture - Preliminary NO GROWTH AFTER 24 HOURS 02/21/18 15:00 Blood Blood Culture - Preliminary NO GROWTH AFTER 24 HOURS 02/21/18 16:08 Urine Urine Culture - Final No Growth (<1,000 CFU/ML) Most Recent Lab Values WBC 6.2 K/uL (4.8-10.8) 02/22/18 06:24 RBC 3.12 Mil/uL (4.40-5.90) L 02/22/18 06:24 Hgb 9.1 g/dL (12.0-18.0) L 02/22/18 06:24 Hct 27.8 % (35.0-51.0) L 02/22/18 06:24 MCV 89.1 fL (80.0-94.0) 02/22/18 06:24 MCH 29.3 pg (27.0-31.0) 02/22/18 06:24 MCHC 32.9 g/dL (33.0-37.0) L 02/22/18 06:24 RDW 17.3 % (11.5-14.5) H 02/22/18 06:24 Plt Count 309 K/uL (130-400) 02/22/18 06:24 MPV 8.7 fL (7.2-11.7) 02/22/18 06:24 Neut % (Auto) 45.8 % (50.0-75.0) L 02/21/18 13:40 Lymph % (Auto) 44.9 % (20.0-40.0) H 02/21/18 13:40 Henry % (Auto) 6.4 % (0.0-10.0) 02/21/18 13:40 Eos % (Auto) 2.0 % (0.0-4.0) 02/21/18 13:40 Baso % (Auto) 0.9 % (0.0-2.0) 02/21/18 13:40 Neut # (Auto) 3.7 K/uL (1.8-7.0) 02/21/18 13:40 Lymph # (Auto) 3.7 K/uL (1.0-4.3) 02/21/18 13:40 Henry # (Auto) 0.5 K/uL (0.0-0.8) 02/21/18 13:40 Eos # (Auto) 0.2 K/uL (0.0-0.7) 02/21/18 13:40 Baso # (Auto) 0.1 K/uL (0.0-0.2) 02/21/18 13:40 Sodium 143 mmol/L (132-148) 02/22/18 06:24 Potassium 3.6 mmol/L (3.6-5.2) 02/22/18 06:24 Chloride 106 mmol/L (98-107) 02/22/18 06:24 Carbon Dioxide 26 mmol/L (22-30) 02/22/18 06:24 Anion Gap 14 (10-20) 02/22/18 06:24 BUN 9 mg/dL (9-20) 02/22/18 06:24 Creatinine 0.8 mg/dL (0.8-1.5) 02/22/18 06:24 Est GFR ( Amer) > 60 02/22/18 06:24 Est GFR (Non-Af Amer) > 60 02/22/18 06:24 POC Glucose (mg/dL) 260 mg/dL (65-110) H 02/22/18 16:49 Random Glucose 169 mg/dL (75-110) H 02/22/18 06:24 Calcium 9.1 mg/dl (8.6-10.4) 02/22/18 06:24 Total Bilirubin 0.3 mg/dL (0.2-1.3) 02/22/18 06:24 AST 88 U/L (17-59) H D 02/22/18 06:24 ALT 163 U/L (21-72) H D 02/22/18 06:24 Alkaline Phosphatase 167 U/L (38-126) H 02/22/18 06:24 Ammonia < 9 umol/L (9-33) L 02/21/18 17:13 Total Creatine Kinase < 20 U/L (55-170) L 02/21/18 13:40 CK-MB (Mass) 1.56 ng/mL (0.0-3.38) 02/21/18 13:40 Total Protein 5.4 g/dL (6.3-8.3) L 02/22/18 06:24 Albumin 2.3 g/dL (3.5-5.0) L 02/22/18 06:24 Globulin 3.1 gm/dL (2.2-3.9) 02/22/18 06:24 Albumin/Globulin Ratio 0.7 (1.0-2.1) L 02/22/18 06:24 Urine Color Yellow (YELLOW) 02/21/18 16:08 Urine Clarity Clear (Clear) 02/21/18 16:08 Urine pH 7.0 (5.0-8.0) 02/21/18 16:08 Ur Specific [place] 1.012 (1.003-1.030) 02/21/18 16:08 Urine Protein Negative mg/dL (NEGATIVE) 02/21/18 16:08 Urine Glucose (UA) 1+ mg/dL (Normal) H 02/21/18 16:08 Urine Ketones Trace mg/dL (NEGATIVE) 02/21/18 16:08 Urine Blood Negative (NEGATIVE) 02/21/18 16:08 Urine Nitrate Negative (NEGATIVE) 02/21/18 16:08 Urine Bilirubin Negative (NEGATIVE) 02/21/18 16:08 Urine Urobilinogen Normal mg/dL (0.2-1.0) 02/21/18 16:08 Ur Leukocyte Esterase Neg Lenore/uL (Negative) 02/21/18 16:08 Urine WBC (Auto) < 1 /hpf (0-5) 02/21/18 16:08 Urine RBC (Auto) < 1 /hpf (0-3) 02/21/18 16:08 Discharge Exam - Head Exam Head Exam: ATRAUMATIC, NORMAL INSPECTION, NORMOCEPHALIC - Eye Exam Eye Exam: EOMI, Normal appearance, PERRL Pupil Exam: NORMAL ACCOMODATION, PERRL - ENT Exam ENT Exam: Mucous Membranes Moist - Respiratory Exam Respiratory Exam: Decreased Breath Sounds, Rales, Rhonchi - Cardiovascular Exam Cardiovascular Exam: +S1, +S2, Systolic Murmur - GI/Abdominal Exam GI & Abdominal Exam: Normal Bowel Sounds Discharge Plan - Follow Up Plan Condition: GOOD Disposition: HOME/ ROUTINE Instructions: Heart Failure, Adult (DC), Dehydration, Adult (DC), Carbohydrate Counting Diet, Diabetes Diet , Coronary Heart Disease (DC) Additional Instructions: Please call Dr. Siddiqui upon patient arrival to the facility continue medication as per Med. rec. PLEASE REPEAT CBC, CMP ON MONDAY HOLD CRESTOR UNTIL MONDAY THEN RESUME Referrals: Alex Siddiqui MD [Staff Provider] -
--- NOTE | 2018-02-23 09:32 | VASCLAB ---
PROCEDURE: Upper Extremity Venous Duplex Exam HISTORY: B/L UE swelling, r/o DVT PRIORS: 02/08/2018, abnormal. TECHNIQUE: Bilateral upper extremity, internal jugular, subclavian, axillary, brachial, ulnar, radial, basilic and upper cephalic veins were evaluated. Flow was assessed with color Doppler, compressibility, assessment of phasic flow and augmentation response. Report prepared by Kathie Aquino Joann FINDINGS: RIGHT: 1. Internal Jugular: 1.1. Compressibility - Fully compressible: Thrombus - None : Flow - Phasic: Augmentation -Normal: Reflux - None. 2. Subclavian: 2.1. Compressibility - Incompressible: Thrombus - Chronic : Flow - Reduced : Augmentation -Normal: Reflux - None. 3. Axillary: 3.1. Compressibility - Incompressible: Thrombus - Chronic : Flow - Reduced : Augmentation -Normal: Reflux - None. 4. Brachial: (one vein non compressible) 4.1. Compressibility - Partial: Thrombus - Chronic: Flow - Reduced : Augmentation -Normal: Reflux - None. 5. Ulnar: 5.1. Compressibility - Fully compressible: Thrombus - None: Flow - Phasic: Augmentation -Normal: Reflux - None. 6. Radial: 6.1. Compressibility - Fully compressible: Thrombus - None: Flow - Phasic: Augmentation - Normal: Reflux - None. 7. Cephalic: 7.1. Compressibility - Fully compressible: Thrombus - None: Flow - Phasic: Augmentation -Normal: Reflux - None. 8. Basilic: 8.1. Compressibility - Fully compressible: Thrombus - None: Flow - Phasic: Augmentation -Normal: Reflux - None. LEFT: 1. Internal Jugular: 1.1. Compressibility - Fully compressible: Thrombus - None : Flow - Phasic: Augmentation -Normal: Reflux - None. 2. Subclavian: 2.1. Compressibility - Fully compressible: Thrombus - None : Flow - Phasic: Augmentation -Normal: Reflux - None. 3. Axillary: 3.1. Compressibility - Fully compressible: Thrombus - None : Flow - Phasic: Augmentation -Normal: Reflux - None. 4. Brachial: 4.1. Compressibility - Fully compressible: Thrombus - None: Flow - Phasic: Augmentation -Normal: Reflux - None. 5. Ulnar: 5.1. Compressibility - Fully compressible: Thrombus - None: Flow - Phasic: Augmentation -Normal: Reflux - None. 6. Radial: 6.1. Compressibility - Fully compressible: Thrombus - None: Flow - Phasic: Augmentation - Normal: Reflux - None. 7. Cephalic: (non compressible at the antecubital level) 7.1. Compressibility - Partial: Thrombus - Chronic: Flow - Reduced : Augmentation -Normal: Reflux - None. 8. Basilic: 8.1. Unable to visualize. OTHER FINDINGS: Right: None. Left: None. 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 Left: Superficial phlebitis of the left cephalic vein at the antecubital level. Findings were reported by the echo vascular tech to Dr. Addison at 2:44 p.m.
[2018-02-23 15:41] VITALS: O2SAT 95
== END 2018-02-22 21:20 | DRG 641 ==
LOC: C.ER 12:35 → C.9E 16:47 → C.3T 18:27 → OBSVTOIN 19:20 → C.6T 22:15
PROVIDERS: ADMIT Internal Medicine; ATTEND Internal Medicine
DX: E86.0 Dehydration (principal); E11.621 Type 2 diabetes mellitus with foot ulcer; E78.00 Pure hypercholesterolemia, unspecified; R32 Unspecified urinary incontinence; I95.9 Hypotension, unspecified; I11.0 Hypertensive heart disease with heart failure; R10.9 Unspecified abdominal pain; Z96.652 Presence of left artificial knee joint; I25.10 Atherosclerotic heart disease of native coronary artery without angina pectoris; I50.9 Heart failure, unspecified; K21.9 Gastro-esophageal reflux disease without esophagitis; Z87.891 Personal history of nicotine dependence; I25.2 Old myocardial infarction

== ENCOUNTER 2018-04-03 21:15 | Inpatient (IN) | payer MEDICARE ==
[2018-04-03 21:15] VITALS: PULSE 105; BMI 26.4
--- NOTE | 2018-04-03 22:02 | C.PDOC ---
History Of Present Illness 77 y/o male presents to ED from long-term with a report of SOB and lethargy. Patient was previously discharged from [facility] after he was admitted for being in the ICU for a month with final diagnosis of acute CHF, CAD, HTN, NV , GERD and dehydration. Patient also had prior discharge on january 27 for HTN, Lethargy and weakness on February 21, and perforated ulcer on December 22 which required immediate surgery. Patient has PMHx of diabetes Type 2, peptic ulcer, NV, and PE. Currently, sisters at bedside say patient is DNI, DNR, and patient is acutely altered. Denies any other physical complaints. Time Seen by Provider: 04/03/18 21:19 Chief Complaint (Nursing): Altered Mental Status History Per: Patient History/Exam Limitations: None Onset/Duration Of Symptoms: Hrs Onset Of Symptoms: <3 Hours Current Symptoms Are (Timing): Still Present Usual Baseline: Other (Lethargic ) Exacerbating Factor(s): Unknown Use Of Anticoag/Antiplatelets: No Recent travel outside of the [place]: No Associated Symptoms: Other (SOB and Lethargic ) Past Medical History Reviewed: Historical Data, Nursing Documentation, Vital Signs Vital Signs: Last Vital Signs Temp 98.6 F 04/03/18 21:29 Pulse 110 H 04/04/18 00:14 Resp 20 04/04/18 00:14 BP 120/69 04/04/18 00:14 Pulse Ox 100 04/04/18 00:14 - Medical History PMH: Arthritis, HTN, Hypercholesterolemia, Hyperlipidemia - [facility] Procedures ASSISTANCE WITH RESPIRATORY VENTILATION, 24-96 HRS, CPAP (12/22/17) DRAINAGE OF ABDOMINAL WALL WITH DRAIN DEV, OPEN APPROACH (12/22/17) FLUOROSCOPY OF LEFT HEART USING OTHER CONTRAST (12/22/17) FLUOROSCOPY OF MULTIPLE CORONARY ARTERIES USING OTH CONTRAST (12/22/17) INSERT OF INFUSION PUMP INTO ABD SUBCU/FASCIA, OPEN APPROACH (12/22/17) INSERTION OF INFUSION DEV INTO SUP VENA CAVA, PERC APPROACH (01/26/18) INSERTION OF INFUSION DEVICE INTO LOWER VEIN, PERC APPROACH (01/26/18) INSPECTION OF UPPER INTESTINAL TRACT, ENDO (01/26/18) INTRODUCTION OF ANALG/HYPNOT/SEDAT INTO SUBCU, PERC APPROACH (12/22/17) MEASURE OF CARDIAC SAMPL & PRESSURE, L HEART, PERC APPROACH (12/22/17) SUPPLEMENT DUODENUM WITH AUTOL SUB, OPEN APPROACH (12/22/17) Family History: States: No Known Family Hx - Social History Hx Tobacco Use: No Hx Alcohol Use: No Hx Substance Use: No - Immunization History Hx Tetanus Toxoid Vaccination: No Hx Influenza Vaccination: Yes Hx Pneumococcal Vaccination: Yes Review Of Systems Review Of Systems: ROS cannot be obtained secondary to pt's inabilty to answer questions. Constitutional: Negative for: Fever, Chills Eyes: Negative for: Pain, Vision Change ENT: Negative for: Ear Pain, Ear Discharge Physical Exam - Physical Exam Appears: In Acute Distress, Confused, Chronically Ill Skin: Normal Color, Warm, Dry Head: Atraumatic Eye(s): bilateral: Normal Inspection, PERRL, EOMI Ear(s): Bilateral: Normal Nose: Normal Oral Mucosa: Dry Lips: Pale Teeth: Edentulous Neck: Normal, Normal ROM Chest: Symmetrical Cardiovascular: Rhythm Regular Respiratory: Normal Breath Sounds Gastrointestinal/Abdominal: Normal Exam, Bowel Sounds Rectal: Deferred Back: Normal Inspection Male Genital: Normal Inspection Extremity: Normal ROM Extremity: Bilateral: Atraumatic, No Pedal Edema, Normal Color And Temperature, Normal ROM ED Course And Treatment - Laboratory Results Result Diagrams: 04/03/18 22:35 04/03/18 21:51 O2 Sat by Pulse Oximetry: 99 (RA) Pulse Ox Interpretation: Normal Critical Care Time - Critical Care Note Total Time (in mins): 45 Documented critical care: time excludes all time spent performing seperately billable procedures. Medical Decision Making Medical Decision Making: pt require and received my immediate medical attention for life threatening illness. appears very ill. Ordered BG, blood work, EKG, CXR, cultures, and urianlysis. Recent blood work 02/22: * WBC: 9.5 * Hgb: 9 * Creatnin: 12/.9 * Blood work 03/05 unremarkable Current Labs: * Rectal temperature: 98.6 * Glucose: 954)Troponin: .122- NONSTEMI * NI GAP: 22/ * BMP: 1220 EKG: * Sinus Tachycardic at 102 bpm * Incomplete RBBB * LAFB * No ischemic changes * RI interval: 138 ms * QRS duration: 102 ms * QT/QTc: 354/461 ms * * spoke with gravel truck driver- more likely this is severe dehydration with severe hyperglycemia with starvation ketoacidosis. insulin R 15 units 1v, aggressive fluid hydration/ broad spectrum abx/and admission to MICU. * Pt is DNA / DNI. Disposition Counseled Patient/Family Regarding: Diagnosis - Disposition Disposition Time: 00:28 Condition: CRITICAL - Clinical Impression Clinical Impression: Sepsis associated hypotension, Pulmonary embolism, Failure to thrive in adult, Lethargy, Hyperosmolar non-ketotic state in patient with type 2 diabetes mellitus, Hyperglycemia, Elevated BUN, Non-STEMI (non-ST elevated myocardial infarction) - Scribe Statement The provider has reviewed the documentation as recorded by the Scribe Antonette Colindres All medical record entries made by the Francescoibpoly were at my direction and personally dictated by me. I have reviewed the chart and agree that the record accurately reflects my personal performance of the history, physical exam, medical decision making, and the department course for this patient. I have also personally directed, reviewed, and agree with the discharge instructions and disposition.
[2018-04-03 22:11] LABS: VENOUS BLOOD GAS BASE EXCESS 4.9 mmol/L (0.0-2.0); VENOUS BLOOD GAS PCO2 62 mmHg (40-60); VENOUS BLOOD GAS PO2 19 mm/Hg (30-55); VENOUS BLOOD PH 7.33 (7.32-7.43)
[2018-04-03] MEDS ORDERED: Sodium Chloride 0.9% 500 ML IV ONE ×3 (22:46→23:22)
[2018-04-03 23:07] LABS: BASO % 0.2 % (0.0-2.0); HEMOGLOBIN 11.2 g/dL (12.0-18.0); LYMPH # 1.2 K/uL (1.0-4.3); LYMPH % 14.6 % (20.0-40.0); MEAN CELL VOLUME 90.6 fL (80.0-94.0); MEAN CORPUSCULAR HGB CONC 30.9 g/dL (33.0-37.0); MEAN PLATELET VOLUME 10.3 fL (7.2-11.7); MONO # 0.5 K/uL (0.0-0.8); MONO % 5.8 % (0.0-10.0); NEUT # 6.7 K/uL (1.8-7.0); NEUT % 79.4 % (50.0-75.0); NRBC % 0.2 % (0.0-2.0); RBC 3.98 Mil/uL (4.40-5.90); RED CELL DISTRIBUTION WIDTH 18.5 % (11.5-14.5); WHITE BLOOD COUNT 8.4 K/uL (4.8-10.8)
[2018-04-03 23:12] LABS: ALB/GLOB RATIO 1.2 (1.0-2.1); ALBUMIN 3.8 g/dL (3.5-5.0); ALT/SGPT 22 U/L (21-72); AST/SGOT 19 U/L (17-59); B-TYPE NATRIURETIC PEPTIDE 1220 pg/mL (0-900); BLOOD UREA NITROGEN 73 mg/dL (9-20); CALCIUM 12.3 mg/dl (8.6-10.4); GFR AFRICAN-AMERICAN > 60; GFR NON-AFRICAN AMERICAN 59
[2018-04-03] MEDS ORDERED: Insulin Human Regular 100 UNIT in Sodium Chloride 0.9% 99 ML IV SCH (23:15)
[2018-04-03 23:21] LABS: PROTHROMBIN TIME 10.6 SECONDS (9.7-12.2)
[2018-04-03] MEDS ORDERED: Sodium Chloride 0.9% 1,000 ML IV ONE (23:22)
[2018-04-03] MEDS ORDERED: (Novolin R) Insulin Human Regular 100 units/ml vial IV STA (23:23)
[2018-04-03 23:57] LABS: ABG ALLEN TEST POS; ARTERIAL BLOOD GAS HCO3 25.2 mmol/L (21-28); ARTERIAL BLOOD GAS HEMOGLOBIN 9.8 g/dL (11.7-17.4); ARTERIAL BLOOD GAS PCO2 37 mm/Hg (35-45); ARTERIAL BLOOD GAS PH 7.43 (7.35-7.45); ARTERIAL BLOOD GAS PO2 99 mm/Hg (80-100); ARTERIAL BLOOD GAS TCO2 25.7 mmol/L (22-28)
[2018-04-04] MEDS ORDERED: (Novolin R) Insulin Human Regular 100 units/ml vial ONE
[2018-04-04] MEDS ORDERED: Sodium Chloride 0.9% 500 ML IV ONE
--- NOTE | 2018-04-04 00:26 | CP.PCM.CON ---
History of Present Illness - History of Present Illness History of Present Illness: 77yo M. PMHx HTN, dyslipidemia, GERD, DM type 2, CAD x 3v, VA, perforated peptic ulcer s/p ex-lap with rachelle patch repair (12/22/17). Discharged to rehab with recurrent readmissions. Today p/w AMS, with hyperglycemia, dehydration, and hypercarbia. Review of Systems - Review of Systems Systems not reviewed;Unavailable: Altered Mental Status Past Patient History - Infectious Disease Hx of Infectious Diseases: None - Past Medical History & Family History Past Medical History?: Yes - Past Social History Smoking Status: Former Smoker - CARDIAC Hx Hypercholesterolemia: Yes Hx Hypertension: Yes - PULMONARY Hx Respiratory Disorders: No - NEUROLOGICAL Hx Neurological Disorder: Yes Hx Syncope: Yes - HEENT Hx HEENT Problems: No - RENAL Hx Chronic Kidney Disease: No - ENDOCRINE/METABOLIC Hx Diabetes Mellitus Type 2: Yes - HEMATOLOGICAL/ONCOLOGICAL Hx Blood Disorders: No - INTEGUMENTARY Hx Dermatological Problems: No - MUSCULOSKELETAL/RHEUMATOLOGICAL Hx Arthritis: Yes - GASTROINTESTINAL Hx Gastrointestinal Disorders: Yes Hx Gastroesophageal Reflux: Yes - GENITOURINARY/GYNECOLOGICAL Hx Genitourinary Disorders: No - PSYCHIATRIC Hx Substance Use: No - SURGICAL HISTORY Hx Surgeries: Yes Other/Comment: left knee replacement, and left nerve repair, left and right hand nerve repair, Exp.Lap 12/22/17, - ANESTHESIA Hx Anesthesia: Yes Hx Anesthesia Reactions: No Hx Malignant Hyperthermia: No Meds Allergies/Adverse Reactions: Allergies Allergy/AdvReac Type Severity Reaction Status Date / Time Penicillins Allergy Mild Verified 01/26/18 15:08 Physical Exam - Constitutional Appears: Cachectic - Head Exam Head Exam: ATRAUMATIC, NORMAL INSPECTION, NORMOCEPHALIC - Eye Exam Eye Exam: EOMI, Normal appearance, PERRL Pupil Exam: NORMAL ACCOMODATION, PERRL - Respiratory Exam Respiratory Exam: Clear to Auscultation Bilateral, NORMAL BREATHING PATTERN - Cardiovascular Exam Cardiovascular Exam: Tachycardia - GI/Abdominal Exam GI & Abdominal Exam: Normal Bowel Sounds, Soft. absent: Tenderness Results - Vital Signs Recent Vital Signs: Last Vital Signs Temp 98.6 F 04/03/18 21:29 Pulse 110 H 04/04/18 00:14 Resp 20 04/04/18 00:14 BP 120/69 04/04/18 00:14 Pulse Ox 100 04/04/18 00:14 - Labs Result Diagrams: 04/03/18 22:35 04/03/18 21:51 Labs: Laboratory Results - last 24 hr 04/03/18 04/03/18 04/03/18 21:51 21:54 22:05 WBC RBC Hgb Hct MCV MCH MCHC RDW Plt Count MPV Neut % (Auto) Lymph % (Auto) Harnett % (Auto) Eos % (Auto) Baso % (Auto) Neut # (Auto) Lymph # (Auto) [place]ett # (Auto) Eos # (Auto) Baso # (Auto) PT INR APTT D-Dimer, Quantitative Puncture Site pCO2 pO2 19 L HCO3 ABG pH ABG Total CO2 ABG O2 Saturation ABG Base Excess ABG Hemoglobin ABG Carboxyhemoglobin POC ABG HHb (Measured) ABG Methemoglobin Eyal Test VBG pH 7.33 VBG pCO2 62 H VBG HCO3 26.8 VBG Total CO2 34.6 H VBG O2 Sat (Calc) 32.9 L VBG Base Excess 4.9 H VBG Potassium 5.0 Hgb O2 Saturation Glucose 568 H* D Lactate 2.1 Liter Flow Crit Value Called To Er nurse Crit Value Called By Georgie rt Crit Value Read Back Y Blood Gas Notified Time 2210 Sodium 148 148.0 Potassium 5.6 H Chloride 103 106.0 Carbon Dioxide 29 Anion Gap 22 H BUN 73 H Creatinine 1.2 Est GFR ( Amer) > 60 Est GFR (Non-Af Amer) 59 POC Glucose (mg/dL) > 500 H* Random Glucose 954 H* D Lactic Acid Calcium 12.3 H Phosphorus 3.6 Magnesium 1.8 Total Bilirubin 0.5 AST 19 ALT 22 Alkaline Phosphatase 128 H D Troponin I 0.1220 H* C-React Prot High Sens NT-Pro-B Natriuret Pep 1220 H Total Protein 7.0 Albumin 3.8 Globulin 3.2 Albumin/Globulin Ratio 1.2 Plasma Cortisol PM Venous Blood Potassium 5.0 04/03/18 04/03/18 04/03/18 22:35 22:35 22:35 WBC RBC Hgb Hct MCV MCH MCHC RDW Plt Count MPV Neut % (Auto) Lymph % (Auto) Harnett % (Auto) Eos % (Auto) Baso % (Auto) Neut # (Auto) Lymph # (Auto) Harnett # (Auto) Eos # (Auto) Baso # (Auto) PT INR APTT D-Dimer, Quantitative Puncture Site pCO2 pO2 HCO3 ABG pH ABG Total CO2 ABG O2 Saturation ABG Base Excess ABG Hemoglobin ABG Carboxyhemoglobin POC ABG HHb (Measured) ABG Methemoglobin Eyal Test VBG pH VBG pCO2 VBG HCO3 VBG Total CO2 VBG O2 Sat (Calc) VBG Base Excess VBG Potassium Hgb O2 Saturation Glucose Lactate Liter Flow Crit Value Called To Crit Value Called By Crit Value Read Back Blood Gas Notified Time Sodium Potassium Chloride Carbon Dioxide Anion Gap BUN Creatinine Est GFR ( Amer) Est GFR (Non-Af Amer) POC Glucose (mg/dL) Random Glucose Lactic Acid 1.6 Calcium Phosphorus Magnesium Total Bilirubin AST ALT Alkaline Phosphatase Troponin I C-React Prot High Sens 9.62 H NT-Pro-B Natriuret Pep Total Protein Albumin Globulin Albumin/Globulin Ratio Plasma Cortisol PM 40.3 H Venous Blood Potassium 04/03/18 04/03/18 04/03/18 22:35 22:35 23:45 WBC 8.4 RBC 3.98 L Hgb 11.2 L D Hct 36.1 MCV 90.6 MCH 28.0 MCHC 30.9 L RDW 18.5 H Plt Count 242 MPV 10.3 Neut % (Auto) 79.4 H Lymph % (Auto) 14.6 L Harnett % (Auto) 5.8 Eos % (Auto) 0.0 Baso % (Auto) 0.2 Neut # (Auto) 6.7 Lymph # (Auto) 1.2 Harnett # (Auto) 0.5 Eos # (Auto) 0.0 Baso # (Auto) 0.0 PT 10.6 INR 1.0 APTT 24 D-Dimer, Quantitative 1665 H Puncture Site R rad pCO2 37 pO2 99 HCO3 25.2 ABG pH 7.43 ABG Total CO2 25.7 ABG O2 Saturation 99.0 H ABG Base Excess 0.4 ABG Hemoglobin 9.8 L ABG Carboxyhemoglobin 1.6 H POC ABG HHb (Measured) 1.0 ABG Methemoglobin 1.5 Eyal Test Pos VBG pH VBG pCO2 VBG HCO3 VBG Total CO2 VBG O2 Sat (Calc) VBG Base Excess VBG Potassium Hgb O2 Saturation 95.9 Glucose Lactate Liter Flow 2.0 Crit Value Called To Crit Value Called By Crit Value Read Back Blood Gas Notified Time Sodium Potassium Chloride Carbon Dioxide Anion Gap BUN Creatinine Est GFR ( Amer) Est GFR (Non-Af Amer) POC Glucose (mg/dL) Random Glucose Lactic Acid Calcium Phosphorus Magnesium Total Bilirubin AST ALT Alkaline Phosphatase Troponin I C-React Prot High Sens NT-Pro-B Natriuret Pep Total Protein Albumin Globulin Albumin/Globulin Ratio Plasma Cortisol PM Venous Blood Potassium Assessment & Plan (1) Metabolic encephalopathy Assessment and Plan: 77yo M. PMHx HTN, dyslipidemia, GERD, DM type 2, CAD x 3v, VA, perforated peptic ulcer s/p ex-lap with rachelle patch repair (12/22/17). p/w AMS, with hyperglycemia, dehydration, and hypercarbia. Neuro: altered mental status Pulm: hypercapnia, will start on BIPAP if patient tolerates. CV: hemodynamically stable Hem: no acute issues Renal: dehydration, NS@125, no documented CHF on echo from 12/2017, but could still have undocumented diastolic HF, so will have to monitor closely. Endo: DM type 2, severe hyperglycemia, HHNS. minimal anion gap - 16, CO2 >16, not DKA, starting insulin drip with fluids for HHNS. GI: NPO. patient has severe protein calorie malnutrition with cachexia. ID: no acute issues DVT proph - heparin sq GI proph - protonix moyer for strict I/O's during acute illness Code status - DNR/DNI He has not recovered from his abdominal surgery and will never recover. He should be made hospice, will consult palliative care. Critical Care Time spent 35 minutes Multi-disciplinary rounds were performed with house staff, nursing, speech therapy, respiratory therapy, pharmacy and nutrition with integrated input from the primary team/attending and other consulting services. The documented time is cumulative and includes review of patient data/exams/labs/chart review and examination of the patient on rounds and throughout the day; time is exclusive of any procedures or teaching time. Status: Acute
[2018-04-04 00:35] LABS: URINE BILIRUBIN NEGATIVE (NEGATIVE); URINE BLOOD NEGATIVE (NEGATIVE); URINE CLARITY Clear (Clear); URINE COLOR Yellow (YELLOW); URINE GLUCOSE (UA) 3+ mg/dL (Normal); URINE LEUKOCYTE ESTERASE NEG Leu/uL (Negative); URINE PROTEIN NEGATIVE (NEGATIVE); URINE UROBILINOGEN NORMAL mg/dL (0.2-1.0)
[2018-04-04 00:46] LABS: VENOUS BLOOD GAS BASE EXCESS 2.4 mmol/L (0.0-2.0); VENOUS BLOOD GAS PCO2 58 mmHg (40-60); VENOUS BLOOD GAS PO2 25 mm/Hg (30-55); VENOUS BLOOD PH 7.32 (7.32-7.43)
[2018-04-04] MEDS ORDERED: Dextrose 50% SYRINGE Inj (50 ml) IV PRN (01:13)
[2018-04-04] MEDS ORDERED: Glucagon Recombinant 1 mg Inj IM PRN (01:13)
[2018-04-04] MEDS ORDERED: Insulin Human Regular 100 UNIT in Sodium Chloride 0.9% 99 ML IV SCH ×2 (01:15→01:44)
[2018-04-04] MEDS: Sodium Chloride 0.9% 1,000 ML IV SCH ×4 (02:40→20:17)
[2018-04-04 05:42] LABS: BASO # 0.1 K/uL (0.0-0.2); BASO % 0.6 % (0.0-2.0); HEMOGLOBIN 10.2 g/dL (12.0-18.0); LYMPH # 1.5 K/uL (1.0-4.3); LYMPH % 16.1 % (20.0-40.0); MEAN CELL VOLUME 87.6 fL (80.0-94.0); MEAN CORPUSCULAR HEMOGLOBIN 27.9 pg (27.0-31.0); MEAN CORPUSCULAR HGB CONC 31.9 g/dL (33.0-37.0); MEAN PLATELET VOLUME 10.1 fL (7.2-11.7); MONO # 0.4 K/uL (0.0-0.8); MONO % 4.5 % (0.0-10.0); NEUT # 7.2 K/uL (1.8-7.0); NEUT % 78.8 % (50.0-75.0); RBC 3.67 Mil/uL (4.40-5.90); RED CELL DISTRIBUTION WIDTH 18.7 % (11.5-14.5); WHITE BLOOD COUNT 9.1 K/uL (4.8-10.8)
[2018-04-04 06:34] LABS: ALBUMIN 3.2 g/dL (3.5-5.0); ALT/SGPT 6 U/L (21-72); AST/SGOT 15 U/L (17-59); BLOOD UREA NITROGEN 59 mg/dL (9-20); CALCIUM 11.4 mg/dl (8.6-10.4); GFR AFRICAN-AMERICAN > 60; GFR NON-AFRICAN AMERICAN > 60
--- NOTE | 2018-04-04 06:34 | CT ---
Date of service: 04/03/2018 PROCEDURE: CT HEAD WITHOUT CONTRAST. HISTORY: altered mental status COMPARISON: Comparison is made with 02/21/2018 TECHNIQUE: Axial computed tomography images were obtained through the head/brain without intravenous contrast. Radiation dose: Total exam DLP = 1054.08 mGy-cm. This CT exam was performed using one or more of the following dose reduction techniques: Automated exposure control, adjustment of the mA and/or kV according to patient size, and/or use of iterative reconstruction technique. FINDINGS: HEMORRHAGE: No intracranial hemorrhage. BRAIN: No mass effect or edema. Moderate volume loss is again noted. Moderate to extensive white matter changes are again noted suggestive of chronic microvascular ischemic disease. VENTRICLES: Unremarkable. No hydrocephalus. CALVARIUM: Unremarkable. PARANASAL SINUSES: Left frontal mucosal thickening and almost complete opacification noted. Mild right maxillary sinus mucosal thickening. MASTOID AIR CELLS: Unremarkable as visualized. No inflammatory changes. OTHER FINDINGS: None. IMPRESSION: No evidence of acute intracranial hemorrhage intracranial collection mass effect or midline shift. Moderate volume loss and moderate chronic microvascular white matter ischemic disease. Almost complete opacification of the left frontal sinus suggestive of sinusitis. Preliminary report was submitted by [facility].
[2018-04-04] MEDS ORDERED: Magnesium Sulfate 1 gm in D5W 1 GM/100 ML BAG IVPB ONE (09:27)
--- NOTE | 2018-04-04 09:27 | RAD ---
Date of service: 04/03/2018 HISTORY: Sepsis Patient COMPARISON: Portable chest 02/21/2018. FINDINGS: LUNGS: No acute pulmonary disease appreciated bilaterally. Prior bibasilar opacity has resolved. PLEURA: No significant pleural effusion identified, no pneumothorax apparent. CARDIOVASCULAR: Normal. OSSEOUS STRUCTURES: No significant abnormalities. VISUALIZED UPPER ABDOMEN: Normal. OTHER FINDINGS: None. IMPRESSION: Erosions of prior bibasilar opacity. No acute cardiopulmonary disease appreciable at this time.
[2018-04-04] MEDS ORDERED: Potassium Phosphate 15 MMOLE in Sodium Chloride 0.9% 250 ML IVPB ONE (10:00)
[2018-04-04] MEDS: (Novolin R) Insulin Human Regular 100 units/ml vial SC SCH ×3 (10:17→18:05)
--- NOTE | 2018-04-04 11:43 | CARD ---
APPROVED REPORT Date of service: 04/03/2018 EKG Measurement Heart [id number] <Conclusion> Sinus tachycardia Incomplete right bundle branch block Left anterior fascicular block Possible Lateral infarct, age undetermined Abnormal ECG
--- NOTE | 2018-04-04 13:50 | CP.PCM.CON ---
History of Present Illness - History of Present Illness History of Present Illness: Palliative consult requested by Doctor Davis for goals of care discussion Patient is 77 yo male admitted from [place] with lethargy and SOB noted on day of admission. Patient was dehydrated as well. Na 157, Blood sugar 740. Severity of symptoms made patient lethargic, unable to provide medical Hx. His sister Laura who is also a POA advocated for patient. Patient was hospitalized on January 27 at [facility] for HTN and [place] when he spent 30 days on ICU. Prior to this admission, on December 22, patient was admitted for emergency surgery due to perforated GI ulcer. PMH: CAH, CAD, HTN, GERD, perforated stomach ulcer, DM, [place], PE Soc. Hx: [place] resident, single, sister Laura Jeronimo [phone] POA Fam Hx: Mother with DM Review of Systems - Review of Systems All systems: reviewed and no additional remarkable complaints except Review of Systems: ROS unobtainable from patient due to lethargy. ROS obtained from nursing. Per nursing patient has been very lethargic , unable to swallow and is on IVF. Past Patient History - Infectious Disease Hx of Infectious Diseases: None - Past Medical History & Family History Past Medical History?: Yes - Past Social History Smoking Status: Former Smoker - CARDIAC Hx Hypercholesterolemia: Yes Hx Hypertension: Yes - PULMONARY Hx Respiratory Disorders: No - NEUROLOGICAL Hx Neurological Disorder: Yes Hx Syncope: Yes - HEENT Hx HEENT Problems: No - RENAL Hx Chronic Kidney Disease: No - ENDOCRINE/METABOLIC Hx Diabetes Mellitus Type 2: Yes - HEMATOLOGICAL/ONCOLOGICAL Hx Blood Disorders: No - INTEGUMENTARY Hx Dermatological Problems: No - MUSCULOSKELETAL/RHEUMATOLOGICAL Hx Arthritis: Yes - GASTROINTESTINAL Hx Gastrointestinal Disorders: Yes Hx Gastroesophageal Reflux: Yes - GENITOURINARY/GYNECOLOGICAL Hx Genitourinary Disorders: No - PSYCHIATRIC Hx Substance Use: No - SURGICAL HISTORY Hx Surgeries: Yes Other/Comment: left knee replacement, and left nerve repair, left and right hand nerve repair, Exp.Lap 12/22/17, - ANESTHESIA Hx Anesthesia: Yes Hx Anesthesia Reactions: No Hx Malignant Hyperthermia: No Meds Allergies/Adverse Reactions: Allergies Allergy/AdvReac Type Severity Reaction Status Date / Time Penicillins Allergy Mild Verified 01/26/18 15:08 - Medications Medications: Current Medications Dextrose (Dextrose 50% Inj) 0 ml IV STAT PRN; Protocol PRN Reason: Hypoglycemia Protocol Dextrose (Glutose 15) 0 gm PO ONCE PRN; Protocol PRN Reason: Hypoglycemia Protocol Glucagon (Glucagen Diagnostic Kit) 0 mg IM STAT PRN; Protocol PRN Reason: Hypoglycemia Protocol Heparin Sodium (Porcine) (Heparin) 5,000 units SC Q12H [facility] Last Admin: 04/04/18 01:41 Dose: 5,000 units Sodium Chloride (Sodium Chloride 0.9%) 1,000 mls @ 125 mls/hr IV .Q8H [facility] Last Admin: 04/04/18 11:24 Dose: 125 mls/hr Dextrose (Dextrose 5% In Water 1000 Ml) 1,000 mls @ 0 mls/hr IV .Q0M PRN; Protocol; Per Protocol PRN Reason: Hypoglycemia Protocol Potassium Phosphate 15 mmole/ (Sodium Chloride) 255 mls @ 42.5 mls/hr IVPB ONCE ONE Stop: 04/04/18 15:59 Last Admin: 04/04/18 10:01 Dose: 42.5 mls/hr Insulin Human Regular (Novolin R) 0 unit SC Q2 KAROLINE PRN Reason: Protocol Last Admin: 04/04/18 12:38 Dose: 2 units Pantoprazole Sodium (Protonix Inj) 40 mg IVP DAILY [facility] Last Admin: 04/04/18 09:36 Dose: 40 mg Physical Exam - Constitutional Appears: Chronically Ill - Head Exam Head Exam: ATRAUMATIC, NORMAL INSPECTION, NORMOCEPHALIC - Eye Exam Eye Exam: EOMI, Normal appearance, PERRL Pupil Exam: NORMAL ACCOMODATION, PERRL - ENT Exam ENT Exam: Mucous Membranes Dry - Neck Exam Neck exam: Positive for: Normal Inspection - Respiratory Exam Respiratory Exam: Decreased Breath Sounds, NORMAL BREATHING PATTERN - Cardiovascular Exam Cardiovascular Exam: Tachycardia, Irregular Rhythm - GI/Abdominal Exam GI & Abdominal Exam: Diminished Bowel Sounds, Soft - Rectal Exam Rectal Exam: Deferred - Exam Exam: NORMAL INSPECTION - Extremities Exam Extremities exam: Positive for: normal inspection - Back Exam Back exam: NORMAL INSPECTION - Neurological Exam Neurological exam: Alert, Altered - Psychiatric Exam Psychiatric exam: Flat Affect - Skin Skin Exam: Dry, Intact, Normal Color, Warm Results - Vital Signs Recent Vital Signs: Last Vital Signs Temp 97.8 F 04/04/18 12:00 Pulse 93 H 04/04/18 12:07 Resp 17 04/04/18 12:07 BP 92/65 L 04/04/18 12:07 Pulse Ox 100 04/04/18 12:00 - Labs Result Diagrams: 04/04/18 05:37 04/04/18 05:37 Labs: Laboratory Results - last 24 hr 04/03/18 04/03/18 04/03/18 21:51 21:54 22:05 WBC RBC Hgb Hct MCV MCH MCHC RDW Plt Count MPV Neut % (Auto) Lymph % (Auto) Collin % (Auto) Eos % (Auto) Baso % (Auto) Neut # (Auto) Lymph # (Auto) Collin # (Auto) Eos # (Auto) Baso # (Auto) PT INR APTT D-Dimer, Quantitative Puncture Site pCO2 pO2 19 L HCO3 ABG pH ABG Total CO2 ABG O2 Saturation ABG Base Excess ABG Hemoglobin ABG Carboxyhemoglobin POC ABG HHb (Measured) ABG Methemoglobin Eyal Test VBG pH 7.33 VBG pCO2 62 H VBG HCO3 26.8 VBG Total CO2 34.6 H VBG O2 Sat (Calc) 32.9 L VBG Base Excess 4.9 H VBG Potassium 5.0 Hgb O2 Saturation Glucose 568 H* D Lactate 2.1 Liter Flow Crit Value Called To Er nurse Crit Value Called By Georgie rt Crit Value Read Back Y Blood Gas Notified Time 2210 Sodium 148 148.0 Potassium 5.6 H Chloride 103 106.0 Carbon Dioxide 29 Anion Gap 22 H BUN 73 H Creatinine 1.2 Est GFR ( Amer) > 60 Est GFR (Non-Af Amer) 59 POC Glucose (mg/dL) > 500 H* Random Glucose 954 H* D Lactic Acid Calcium 12.3 H Phosphorus 3.6 Magnesium 1.8 Total Bilirubin 0.5 AST 19 ALT 22 Alkaline Phosphatase 128 H D Troponin I 0.1220 H* C-React Prot High Sens NT-Pro-B Natriuret Pep 1220 H Total Protein 7.0 Albumin 3.8 Globulin 3.2 Albumin/Globulin Ratio 1.2 Procalcitonin Plasma Cortisol PM Venous Blood Potassium 5.0 Urine Color Urine Clarity Urine pH Ur Specific [place] Urine Protein Urine Glucose (UA) Urine Ketones Urine Blood Urine Nitrate Urine Bilirubin Urine Urobilinogen Ur Leukocyte Esterase Urine WBC (Auto) 07/24/18 07/24/18 07/24/18 22:35 22:35 22:35 WBC RBC Hgb Hct MCV MCH MCHC RDW Plt Count MPV Neut % (Auto) Lymph % (Auto) Collin % (Auto) Eos % (Auto) Baso % (Auto) Neut # (Auto) Lymph # (Auto) Collin # (Auto) Eos # (Auto) Baso # (Auto) PT INR APTT D-Dimer, Quantitative Puncture Site pCO2 pO2 HCO3 ABG pH ABG Total CO2 ABG O2 Saturation ABG Base Excess ABG Hemoglobin ABG Carboxyhemoglobin POC ABG HHb (Measured) ABG Methemoglobin Eyal Test VBG pH VBG pCO2 VBG HCO3 VBG Total CO2 VBG O2 Sat (Calc) VBG Base Excess VBG Potassium Hgb O2 Saturation Glucose Lactate Liter Flow Crit Value Called To Crit Value Called By Crit Value Read Back Blood Gas Notified Time Sodium Potassium Chloride Carbon Dioxide Anion Gap BUN Creatinine Est GFR ( Amer) Est GFR (Non-Af Amer) POC Glucose (mg/dL) Random Glucose Lactic Acid Calcium Phosphorus Magnesium Total Bilirubin AST ALT Alkaline Phosphatase Troponin I C-React Prot High Sens 9.62 H NT-Pro-B Natriuret Pep Total Protein Albumin Globulin Albumin/Globulin Ratio Procalcitonin 0.07 L Plasma Cortisol PM 40.3 H Venous Blood Potassium Urine Color Urine Clarity Urine pH Ur Specific [place] Urine Protein Urine Glucose (UA) Urine Ketones Urine Blood Urine Nitrate Urine Bilirubin Urine Urobilinogen Ur Leukocyte Esterase Urine WBC (Auto) 04/03/18 04/03/18 04/03/18 22:35 22:35 22:35 WBC 8.4 RBC 3.98 L Hgb 11.2 L D Hct 36.1 MCV 90.6 MCH 28.0 MCHC 30.9 L RDW 18.5 H Plt Count 242 MPV 10.3 Neut % (Auto) 79.4 H Lymph % (Auto) 14.6 L Collin % (Auto) 5.8 Eos % (Auto) 0.0 Baso % (Auto) 0.2 Neut # (Auto) 6.7 Lymph # (Auto) 1.2 Collin # (Auto) 0.5 Eos # (Auto) 0.0 Baso # (Auto) 0.0 PT 10.6 INR 1.0 APTT 24 D-Dimer, Quantitative 1665 H Puncture Site pCO2 pO2 HCO3 ABG pH ABG Total CO2 ABG O2 Saturation ABG Base Excess ABG Hemoglobin ABG Carboxyhemoglobin POC ABG HHb (Measured) ABG Methemoglobin Eyal Test VBG pH VBG pCO2 VBG HCO3 VBG Total CO2 VBG O2 Sat (Calc) VBG Base Excess VBG Potassium Hgb O2 Saturation Glucose Lactate Liter Flow Crit Value Called To Crit Value Called By Crit Value Read Back Blood Gas Notified Time Sodium Potassium Chloride Carbon Dioxide Anion Gap BUN Creatinine Est GFR ( Amer) Est GFR (Non-Af Amer) POC Glucose (mg/dL) Random Glucose Lactic Acid 1.6 Calcium Phosphorus Magnesium Total Bilirubin AST ALT Alkaline Phosphatase Troponin I C-React Prot High Sens NT-Pro-B Natriuret Pep Total Protein Albumin Globulin Albumin/Globulin Ratio Procalcitonin Plasma Cortisol PM Venous Blood Potassium Urine Color Urine Clarity Urine pH Ur Specific [place] Urine Protein Urine Glucose (UA) Urine Ketones Urine Blood Urine Nitrate Urine Bilirubin Urine Urobilinogen Ur Leukocyte Esterase Urine WBC (Auto) 04/03/18 04/04/18 04/04/18 23:45 00:23 00:37 WBC RBC Hgb Hct MCV MCH MCHC RDW Plt Count MPV Neut % (Auto) Lymph % (Auto) Collin % (Auto) Eos % (Auto) Baso % (Auto) Neut # (Auto) Lymph # (Auto) Collin # (Auto) Eos # (Auto) Baso # (Auto) PT INR APTT D-Dimer, Quantitative Puncture Site R rad pCO2 37 pO2 99 25 L HCO3 25.2 ABG pH 7.43 ABG Total CO2 25.7 ABG O2 Saturation 99.0 H ABG Base Excess 0.4 ABG Hemoglobin 9.8 L ABG Carboxyhemoglobin 1.6 H POC ABG HHb (Measured) 1.0 ABG Methemoglobin 1.5 Eyal Test Pos VBG pH 7.32 VBG pCO2 58 VBG HCO3 25.2 VBG Total CO2 31.7 H VBG O2 Sat (Calc) 42.2 VBG Base Excess 2.4 H VBG Potassium 4.6 Hgb O2 Saturation 95.9 Glucose 740 H* D Lactate 2.7 H Liter Flow 2.0 Crit Value Called To Linda ross rn Crit Value Called By Paulina worley rt Crit Value Read Back Y Blood Gas Notified Time 46 Sodium 150.0 H Potassium Chloride 110.0 H Carbon Dioxide Anion Gap BUN Creatinine Est GFR ( Amer) Est GFR (Non-Af Amer) POC Glucose (mg/dL) Random Glucose Lactic Acid Calcium Phosphorus Magnesium Total Bilirubin AST ALT Alkaline Phosphatase Troponin I C-React Prot High Sens NT-Pro-B Natriuret Pep Total Protein Albumin Globulin Albumin/Globulin Ratio Procalcitonin Plasma Cortisol PM Venous Blood Potassium 4.6 Urine Color Yellow Urine Clarity Clear Urine pH 5.0 Ur Specific [place] 1.026 Urine Protein Negative Urine Glucose (UA) 3+ H Urine Ketones Trace Urine Blood Negative Urine Nitrate Negative Urine Bilirubin Negative Urine Urobilinogen Normal Ur Leukocyte Esterase Neg Urine WBC (Auto) 1 04/04/18 04/04/18 04/04/18 01:09 02:04 03:19 WBC RBC Hgb Hct MCV MCH MCHC RDW Plt Count MPV Neut % (Auto) Lymph % (Auto) Collin % (Auto) Eos % (Auto) Baso % (Auto) Neut # (Auto) Lymph # (Auto) Collin # (Auto) Eos # (Auto) Baso # (Auto) PT INR APTT D-Dimer, Quantitative Puncture Site pCO2 pO2 HCO3 ABG pH ABG Total CO2 ABG O2 Saturation ABG Base Excess ABG Hemoglobin ABG Carboxyhemoglobin POC ABG HHb (Measured) ABG Methemoglobin Eyal Test VBG pH VBG pCO2 VBG HCO3 VBG Total CO2 VBG O2 Sat (Calc) VBG Base Excess VBG Potassium Hgb O2 Saturation Glucose Lactate Liter Flow Crit Value Called To Crit Value Called By Crit Value Read Back Blood Gas Notified Time Sodium Potassium Chloride Carbon Dioxide Anion Gap BUN Creatinine Est GFR ( Amer) Est GFR (Non-Af Amer) POC Glucose (mg/dL) > 500 H* > 500 H* > 500 H* Random Glucose Lactic Acid Calcium Phosphorus Magnesium Total Bilirubin AST ALT Alkaline Phosphatase Troponin I C-React Prot High Sens NT-Pro-B Natriuret Pep Total Protein Albumin Globulin Albumin/Globulin Ratio Procalcitonin Plasma Cortisol PM Venous Blood Potassium Urine Color Urine Clarity Urine pH Ur Specific [place] Urine Protein Urine Glucose (UA) Urine Ketones Urine Blood Urine Nitrate Urine Bilirubin Urine Urobilinogen Ur Leukocyte Esterase Urine WBC (Auto) 04/04/18 04/04/18 04/04/18 04:08 05:09 05:37 WBC 9.1 RBC 3.67 L Hgb 10.2 L Hct 32.1 L MCV 87.6 D MCH 27.9 MCHC 31.9 L RDW 18.7 H Plt Count 213 MPV 10.1 Neut % (Auto) 78.8 H Lymph % (Auto) 16.1 L Collin % (Auto) 4.5 Eos % (Auto) 0.0 Baso % (Auto) 0.6 Neut # (Auto) 7.2 H Lymph # (Auto) 1.5 Collin # (Auto) 0.4 Eos # (Auto) 0.0 Baso # (Auto) 0.1 PT INR APTT D-Dimer, Quantitative Puncture Site pCO2 pO2 HCO3 ABG pH ABG Total CO2 ABG O2 Saturation ABG Base Excess ABG Hemoglobin ABG Carboxyhemoglobin POC ABG HHb (Measured) ABG Methemoglobin Eyal Test VBG pH VBG pCO2 VBG HCO3 VBG Total CO2 VBG O2 Sat (Calc) VBG Base Excess VBG Potassium Hgb O2 Saturation Glucose Lactate Liter Flow Crit Value Called To Crit Value Called By Crit Value Read Back Blood Gas Notified Time Sodium Potassium Chloride Carbon Dioxide Anion Gap BUN Creatinine Est GFR ( Amer) Est GFR (Non-Af Amer) POC Glucose (mg/dL) > 500 H* > 500 H* Random Glucose Lactic Acid Calcium Phosphorus Magnesium Total Bilirubin AST ALT Alkaline Phosphatase Troponin I C-React Prot High Sens NT-Pro-B Natriuret Pep Total Protein Albumin Globulin Albumin/Globulin Ratio Procalcitonin Plasma Cortisol PM Venous Blood Potassium Urine Color Urine Clarity Urine pH Ur Specific [place] Urine Protein Urine Glucose (UA) Urine Ketones Urine Blood Urine Nitrate Urine Bilirubin Urine Urobilinogen Ur Leukocyte Esterase Urine WBC (Auto) 04/04/18 04/04/18 04/04/18 05:37 06:20 07:19 WBC RBC Hgb Hct MCV MCH MCHC RDW Plt Count MPV Neut % (Auto) Lymph % (Auto) Collin % (Auto) Eos % (Auto) Baso % (Auto) Neut # (Auto) Lymph # (Auto) Collin # (Auto) Eos # (Auto) Baso # (Auto) PT INR APTT D-Dimer, Quantitative Puncture Site pCO2 pO2 HCO3 ABG pH ABG Total CO2 ABG O2 Saturation ABG Base Excess ABG Hemoglobin ABG Carboxyhemoglobin POC ABG HHb (Measured) ABG Methemoglobin Eyal Test VBG pH VBG pCO2 VBG HCO3 VBG Total CO2 VBG O2 Sat (Calc) VBG Base Excess VBG Potassium Hgb O2 Saturation Glucose Lactate Liter Flow Crit Value Called To Crit Value Called By Crit Value Read Back Blood Gas Notified Time Sodium 157 H Potassium 3.6 Chloride 116 H Carbon Dioxide 24 Anion Gap 21 H BUN 59 H Creatinine 1.1 Est GFR ( Amer) > 60 Est GFR (Non-Af Amer) > 60 POC Glucose (mg/dL) 483 H* 311 H Random Glucose 467 H* D Lactic Acid Calcium 11.4 H Phosphorus 2.0 L Magnesium 1.5 L Total Bilirubin 0.3 AST 15 L D ALT 6 L D Alkaline Phosphatase 103 Troponin I C-React Prot High Sens NT-Pro-B Natriuret Pep Total Protein 6.2 L Albumin 3.2 L Globulin 3.0 Albumin/Globulin Ratio 1.0 Procalcitonin Plasma Cortisol PM Venous Blood Potassium Urine Color Urine Clarity Urine pH Ur Specific [place] Urine Protein Urine Glucose (UA) Urine Ketones Urine Blood Urine Nitrate Urine Bilirubin Urine Urobilinogen Ur Leukocyte Esterase Urine WBC (Auto) 04/04/18 04/04/18 04/04/18 08:06 09:06 10:14 WBC RBC Hgb Hct MCV MCH MCHC RDW Plt Count MPV Neut % (Auto) Lymph % (Auto) Collin % (Auto) Eos % (Auto) Baso % (Auto) Neut # (Auto) Lymph # (Auto) Collin # (Auto) Eos # (Auto) Baso # (Auto) PT INR APTT D-Dimer, Quantitative Puncture Site pCO2 pO2 HCO3 ABG pH ABG Total CO2 ABG O2 Saturation ABG Base Excess ABG Hemoglobin ABG Carboxyhemoglobin POC ABG HHb (Measured) ABG Methemoglobin Eyal Test VBG pH VBG pCO2 VBG HCO3 VBG Total CO2 VBG O2 Sat (Calc) VBG Base Excess VBG Potassium Hgb O2 Saturation Glucose Lactate Liter Flow Crit Value Called To Crit Value Called By Crit Value Read Back Blood Gas Notified Time Sodium Potassium Chloride Carbon Dioxide Anion Gap BUN Creatinine Est GFR ( Amer) Est GFR (Non-Af Amer) POC Glucose (mg/dL) 254 H 178 H 159 H Random Glucose Lactic Acid Calcium Phosphorus Magnesium Total Bilirubin AST ALT Alkaline Phosphatase Troponin I C-React Prot High Sens NT-Pro-B Natriuret Pep Total Protein Albumin Globulin Albumin/Globulin Ratio Procalcitonin Plasma Cortisol PM Venous Blood Potassium Urine Color Urine Clarity Urine pH Ur Specific [place] Urine Protein Urine Glucose (UA) Urine Ketones Urine Blood Urine Nitrate Urine Bilirubin Urine Urobilinogen Ur Leukocyte Esterase Urine WBC (Auto) 04/04/18 12:10 WBC RBC Hgb Hct MCV MCH MCHC RDW Plt Count MPV Neut % (Auto) Lymph % (Auto) Collin % (Auto) Eos % (Auto) Baso % (Auto) Neut # (Auto) Lymph # (Auto) Collin # (Auto) Eos # (Auto) Baso # (Auto) PT INR APTT D-Dimer, Quantitative Puncture Site pCO2 pO2 HCO3 ABG pH ABG Total CO2 ABG O2 Saturation ABG Base Excess ABG Hemoglobin ABG Carboxyhemoglobin POC ABG HHb (Measured) ABG Methemoglobin Eyal Test VBG pH VBG pCO2 VBG HCO3 VBG Total CO2 VBG O2 Sat (Calc) VBG Base Excess VBG Potassium Hgb O2 Saturation Glucose Lactate Liter Flow Crit Value Called To Crit Value Called By Crit Value Read Back Blood Gas Notified Time Sodium Potassium Chloride Carbon Dioxide Anion Gap BUN Creatinine Est GFR ( Amer) Est GFR (Non-Af Amer) POC Glucose (mg/dL) 177 H Random Glucose Lactic Acid Calcium Phosphorus Magnesium Total Bilirubin AST ALT Alkaline Phosphatase Troponin I C-React Prot High Sens NT-Pro-B Natriuret Pep Total Protein Albumin Globulin Albumin/Globulin Ratio Procalcitonin Plasma Cortisol PM Venous Blood Potassium Urine Color Urine Clarity Urine pH Ur Specific [place] Urine Protein Urine Glucose (UA) Urine Ketones Urine Blood Urine Nitrate Urine Bilirubin Urine Urobilinogen Ur Leukocyte Esterase Urine WBC (Auto) Assessment & Plan - Assessment and Plan (Free Text) Assessment: Palliative consult DNR/DNI, there is no Advance directive on chart, PPS 10 % I reviewed all medical records, diagnostic studies and examined patient in bed. Patient is very lethargic, eyes closed, responds to verbal stimuli , says " is very tired". Skin is dry with pressure sores to both heels. Breath sounds diminished, no cough, O2Sat 100%. Abdomen soft, tender to touch, old surgical scar to mid abdomen. patient does not take PO intake due to lethargy. Limited active and passive ROM. BP 89/58, HR 97. IVF of Na Cl 0.9 % at 125 cc on board. Blood sugar today 157. Patient's sister Laura called for family meeting and is coming today around 3 pm. 3: 15 pm Patient sister is not yet here for family meeting. I discussed patient's condition with medical communication specialist Doctor Richard. Patient was to be given NGT for nutritionand hopefully once he gets stronger, PO will be introduced. I discussed patient;s condition with Doctor Siddiqui . Per Doctor Artur, patient's sister refused Hospice care for the patient offered in the past. We agreed that patient should be treated conservatively with accent on increased comfort. Impression * Hypernatremia * Hyperglicemia, uncontrolled * Dehydration * Lethargy * Weakness Suggestion * Continue IVF for rehydration and to normalize Sodium level * Novolin IM per sliding scale for elevate blood sugar * Agree with NGT for nutrition and hydration * Assist with ADLs, * NPO * Aspiration precautions Palliative care will continue to fallow up with patient and his sister for POLST completion to support DNR/DNI status
--- NOTE | 2018-04-04 15:17 | RAD ---
Date of service: 04/04/2018 HISTORY: ngt COMPARISON: 04/03/2018 FINDINGS: LUNGS: No active pulmonary disease. PLEURA: No significant pleural effusion identified, no pneumothorax apparent. CARDIOVASCULAR: Normal heart size. No congestive change. Nasogastric tube extends to left upper quadrant of abdomen. OSSEOUS STRUCTURES: No significant abnormalities. VISUALIZED UPPER ABDOMEN: Normal. OTHER FINDINGS: None. IMPRESSION: New nasogastric tube. Otherwise unremarkable.
--- NOTE | 2018-04-04 15:59 | CP.CCUPN ---
CCU Subjective - Physician Review Subjective (Free Text): 04/04/18 15:44 77 yo M w/ PMHx of DM2, HTN, HLD, CAD, [place], GERD, perforated peptic ulcer(s/p ex- lap w/ rachelle patch 12/22/17), dehydration(requiring admission 02/21) admitted to ICU w/ AMS, HHNS, dehydration. Pt off insulin drip, now SS. NGT w/ feeds as tolerated CCU Objective - Vital Signs / Intake & Output Vital Signs (Last 4 hours): Vital Signs Temp Pulse Resp BP Pulse Ox 04/04/18 12:07 93 H 17 92/65 L 04/04/18 12:00 97.8 F 94 H 27 H 100 Intake and Output (Last 8hrs): Intake & Output 04/04/18 04/04/18 04/04/18 06:59 14:59 22:59 Intake Total 2577 908.5 Output Total 350 250 Balance 2227 658.5 Weight 110 lb Intake: IV 29 45 Intake, IV Amount 2548 863.5 Left Antecubital 2500 725 Lt AC 48 138.5 Output: Urine 350 250 Condom 350 250 Other: Voiding Method Incontinent # Bowel Movements 0 0 - Physical Exam Physical Exam Limitations: Positive for: Altered Mental Status Head: Positive for: Atraumatic, Normocephalic Extroacular Muscles: Positive for: EOMI Mouth: Positive for: Dry Respiratory/Chest: Positive for: Clear to Auscultation Cardiovascular: Positive for: Regular Rate and Rhythm Abdomen: Negative for: Tenderness, Distention Upper Extremity: Positive for: Normal Inspection Lower Extremity: Positive for: Normal Inspection Psychiatric: Positive for: Lethargic - Medications Active Medications: Active Medications Generic Name Dose Route Start Last Admin Trade Name Freq PRN Reason Stop Dose Admin Dextrose 0 ml 04/04/18 01:13 Dextrose 50% Inj IV STAT PRN Hypoglycemia Protocol Protocol Dextrose 0 gm 04/04/18 01:13 Glutose 15 PO ONCE PRN Hypoglycemia Protocol Protocol Glucagon 0 mg 04/04/18 01:13 Glucagen Diagnostic Kit IM STAT PRN Hypoglycemia Protocol Protocol Heparin Sodium (Porcine) 5,000 units 04/04/18 01:30 04/04/18 01:41 Heparin SC 5,000 units Q12H KAROLINE Administration Sodium Chloride 1,000 mls @ 125 mls/hr 04/04/18 01:15 04/04/18 11:24 Sodium Chloride 0.9% IV 125 mls/hr .Q8H KAROLINE Administration Dextrose 1,000 mls @ 0 mls/hr 04/04/18 01:13 Dextrose 5% In Water 1000 Ml IV .Q0M PRN Hypoglycemia Protocol Protocol Per Protocol Potassium Phosphate 15 mmole/ 255 mls @ 42.5 mls/hr 04/04/18 10:00 04/04/18 10:01 Sodium Chloride IVPB 04/04/18 15:59 42.5 mls/hr ONCE ONE Administration Insulin Human Regular 0 unit 04/04/18 18:00 Novolin R SC Q6 KAROLINE Protocol Pantoprazole Sodium 40 mg 04/04/18 10:00 04/04/18 09:36 Protonix Inj IVP 40 mg DAILY KAROLINE Administration - Patient Studies Lab Studies: Lab Studies 04/04/18 04/04/18 04/04/18 Range/Units 14:05 12:10 10:14 WBC (4.8-10.8) K/uL RBC (4.40-5.90) Mil/uL Hgb (12.0-18.0) g/dL Hct (35.0-51.0) % MCV (80.0-94.0) fL MCH (27.0-31.0) pg MCHC (33.0-37.0) g/dL RDW (11.5-14.5) % Plt Count (130-400) K/uL MPV (7.2-11.7) fL Neut % (Auto) (50.0-75.0) % Lymph % (Auto) (20.0-40.0) % [place] % (Auto) (0.0-10.0) % Eos % (Auto) (0.0-4.0) % Baso % (Auto) (0.0-2.0) % Neut # (Auto) (1.8-7.0) K/uL Lymph # (Auto) (1.0-4.3) K/uL [place] # (Auto) (0.0-0.8) K/uL Eos # (Auto) (0.0-0.7) K/uL Baso # (Auto) (0.0-0.2) K/uL PT (9.7-12.2) SECONDS INR APTT (21-34) SECONDS D-Dimer, Quantitative (0-243) ng/mlDDU Puncture Site pCO2 (35-45) mm/Hg pO2 (30-55) mm/Hg HCO3 (21-28) mmol/L ABG pH (7.35-7.45) ABG Total CO2 (22-28) mmol/L ABG O2 Saturation (95-98) % ABG Base Excess (-2.0-3.0) mmol/L ABG Hemoglobin (11.7-17.4) g/dL ABG Carboxyhemoglobin (0.5-1.5) % POC ABG HHb (Measured) (0.0-5.0) % ABG Methemoglobin (0.0-3.0) % Eyal Test VBG pH (7.32-7.43) VBG pCO2 (40-60) mmHg VBG HCO3 mmol/L VBG Total CO2 (22-28) mmol/L VBG O2 Sat (Calc) (40-65) % VBG Base Excess (0.0-2.0) mmol/L VBG Potassium (3.6-5.2) mmol/L Hgb O2 Saturation (95.0-98.0) % Glucose (75-110) mg/dl Lactate (0.7-2.1) mmol/L Liter Flow Crit Value Called To Crit Value Called By Crit Value Read Back Blood Gas Notified Time Sodium (132-148) mmol/L Potassium (3.6-5.2) mmol/L Chloride (98-107) mmol/L Carbon Dioxide (22-30) mmol/L Anion Gap (10-20) BUN (9-20) mg/dL Creatinine (0.8-1.5) mg/dL Est GFR ( Amer) Est GFR (Non-Af Amer) POC Glucose (mg/dL) 157 H 177 H 159 H (65-110) mg/dL Random Glucose (75-110) mg/dL Lactic Acid (0.7-2.1) mmol/L Calcium (8.6-10.4) mg/dl Phosphorus (2.5-4.5) mg/dL Magnesium (1.6-2.3) mg/dL Total Bilirubin (0.2-1.3) mg/dL AST (17-59) U/L ALT (21-72) U/L Alkaline Phosphatase (38-126) U/L Troponin I (0.00-0.120) ng/mL C-React Prot High Sens (1.00-3.00) mg/L NT-Pro-B Natriuret Pep (0-900) pg/mL Total Protein (6.3-8.3) g/dL Albumin (3.5-5.0) g/dL Globulin (2.2-3.9) gm/dL Albumin/Globulin Ratio (1.0-2.1) Procalcitonin (0.19-0.49) NG/ML Plasma Cortisol PM (1.7-14.1) ug/dL Venous Blood Potassium (3.6-5.2) mmol/L Urine Color (YELLOW) Urine Clarity (Clear) Urine pH (5.0-8.0) Ur Specific [place] (1.003-1.030) Urine Protein (NEGATIVE) mg/dL Urine Glucose (UA) (Normal) mg/dL Urine Ketones (NEGATIVE) mg/dL Urine Blood (NEGATIVE) Urine Nitrate (NEGATIVE) Urine Bilirubin (NEGATIVE) Urine Urobilinogen (0.2-1.0) mg/dL Ur Leukocyte Esterase (Negative) [place]/uL Urine WBC (Auto) (0-5) /hpf 04/04/18 04/04/18 04/04/18 Range/Units 09:06 08:06 07:19 WBC (4.8-10.8) K/uL RBC (4.40-5.90) Mil/uL Hgb (12.0-18.0) g/dL Hct (35.0-51.0) % MCV (80.0-94.0) fL MCH (27.0-31.0) pg MCHC (33.0-37.0) g/dL RDW (11.5-14.5) % Plt Count (130-400) K/uL MPV (7.2-11.7) fL Neut % (Auto) (50.0-75.0) % Lymph % (Auto) (20.0-40.0) % [place] % (Auto) (0.0-10.0) % Eos % (Auto) (0.0-4.0) % Baso % (Auto) (0.0-2.0) % Neut # (Auto) (1.8-7.0) K/uL Lymph # (Auto) (1.0-4.3) K/uL [place] # (Auto) (0.0-0.8) K/uL Eos # (Auto) (0.0-0.7) K/uL Baso # (Auto) (0.0-0.2) K/uL PT (9.7-12.2) SECONDS INR APTT (21-34) SECONDS D-Dimer, Quantitative (0-243) ng/mlDDU Puncture Site pCO2 (35-45) mm/Hg pO2 (30-55) mm/Hg HCO3 (21-28) mmol/L ABG pH (7.35-7.45) ABG Total CO2 (22-28) mmol/L ABG O2 Saturation (95-98) % ABG Base Excess (-2.0-3.0) mmol/L ABG Hemoglobin (11.7-17.4) g/dL ABG Carboxyhemoglobin (0.5-1.5) % POC ABG HHb (Measured) (0.0-5.0) % ABG Methemoglobin (0.0-3.0) % Eyal Test VBG pH (7.32-7.43) VBG pCO2 (40-60) mmHg VBG HCO3 mmol/L VBG Total CO2 (22-28) mmol/L VBG O2 Sat (Calc) (40-65) % VBG Base Excess (0.0-2.0) mmol/L VBG Potassium (3.6-5.2) mmol/L Hgb O2 Saturation (95.0-98.0) % Glucose (75-110) mg/dl Lactate (0.7-2.1) mmol/L Liter Flow Crit Value Called To Crit Value Called By Crit Value Read Back Blood Gas Notified Time Sodium (132-148) mmol/L Potassium (3.6-5.2) mmol/L Chloride (98-107) mmol/L Carbon Dioxide (22-30) mmol/L Anion Gap (10-20) BUN (9-20) mg/dL Creatinine (0.8-1.5) mg/dL Est GFR ( Amer) Est GFR (Non-Af Amer) POC Glucose (mg/dL) 178 H 254 H 311 H (65-110) mg/dL Random Glucose (75-110) mg/dL Lactic Acid (0.7-2.1) mmol/L Calcium (8.6-10.4) mg/dl Phosphorus (2.5-4.5) mg/dL Magnesium (1.6-2.3) mg/dL Total Bilirubin (0.2-1.3) mg/dL AST (17-59) U/L ALT (21-72) U/L Alkaline Phosphatase (38-126) U/L Troponin I (0.00-0.120) ng/mL C-React Prot High Sens (1.00-3.00) mg/L NT-Pro-B Natriuret Pep (0-900) pg/mL Total Protein (6.3-8.3) g/dL Albumin (3.5-5.0) g/dL Globulin (2.2-3.9) gm/dL Albumin/Globulin Ratio (1.0-2.1) Procalcitonin (0.19-0.49) NG/ML Plasma Cortisol PM (1.7-14.1) ug/dL Venous Blood Potassium (3.6-5.2) mmol/L Urine Color (YELLOW) Urine Clarity (Clear) Urine pH (5.0-8.0) Ur Specific [place] (1.003-1.030) Urine Protein (NEGATIVE) mg/dL Urine Glucose (UA) (Normal) mg/dL Urine Ketones (NEGATIVE) mg/dL Urine Blood (NEGATIVE) Urine Nitrate (NEGATIVE) Urine Bilirubin (NEGATIVE) Urine Urobilinogen (0.2-1.0) mg/dL Ur Leukocyte Esterase (Negative) [place]/uL Urine WBC (Auto) (0-5) /hpf 04/04/18 04/04/18 04/04/18 Range/Units 06:20 05:37 05:37 WBC 9.1 (4.8-10.8) K/uL RBC 3.67 L (4.40-5.90) Mil/uL Hgb 10.2 L (12.0-18.0) g/dL Hct 32.1 L (35.0-51.0) % MCV 87.6 D (80.0-94.0) fL MCH 27.9 (27.0-31.0) pg MCHC 31.9 L (33.0-37.0) g/dL RDW 18.7 H (11.5-14.5) % Plt Count 213 (130-400) K/uL MPV 10.1 (7.2-11.7) fL Neut % (Auto) 78.8 H (50.0-75.0) % Lymph % (Auto) 16.1 L (20.0-40.0) % [place] % (Auto) 4.5 (0.0-10.0) % Eos % (Auto) 0.0 (0.0-4.0) % Baso % (Auto) 0.6 (0.0-2.0) % Neut # (Auto) 7.2 H (1.8-7.0) K/uL Lymph # (Auto) 1.5 (1.0-4.3) K/uL [place] # (Auto) 0.4 (0.0-0.8) K/uL Eos # (Auto) 0.0 (0.0-0.7) K/uL Baso # (Auto) 0.1 (0.0-0.2) K/uL PT (9.7-12.2) SECONDS INR APTT (21-34) SECONDS D-Dimer, Quantitative (0-243) ng/mlDDU Puncture Site pCO2 (35-45) mm/Hg pO2 (30-55) mm/Hg HCO3 (21-28) mmol/L ABG pH (7.35-7.45) ABG Total CO2 (22-28) mmol/L ABG O2 Saturation (95-98) % ABG Base Excess (-2.0-3.0) mmol/L ABG Hemoglobin (11.7-17.4) g/dL ABG Carboxyhemoglobin (0.5-1.5) % POC ABG HHb (Measured) (0.0-5.0) % ABG Methemoglobin (0.0-3.0) % Eyal Test VBG pH (7.32-7.43) VBG pCO2 (40-60) mmHg VBG HCO3 mmol/L VBG Total CO2 (22-28) mmol/L VBG O2 Sat (Calc) (40-65) % VBG Base Excess (0.0-2.0) mmol/L VBG Potassium (3.6-5.2) mmol/L Hgb O2 Saturation (95.0-98.0) % Glucose (75-110) mg/dl Lactate (0.7-2.1) mmol/L Liter Flow Crit Value Called To Crit Value Called By Crit Value Read Back Blood Gas Notified Time Sodium 157 H (132-148) mmol/L Potassium 3.6 (3.6-5.2) mmol/L Chloride 116 H (98-107) mmol/L Carbon Dioxide 24 (22-30) mmol/L Anion Gap 21 H (10-20) BUN 59 H (9-20) mg/dL Creatinine 1.1 (0.8-1.5) mg/dL Est GFR ( Amer) > 60 Est GFR (Non-Af Amer) > 60 POC Glucose (mg/dL) 483 H* (65-110) mg/dL Random Glucose 467 H* D (75-110) mg/dL Lactic Acid (0.7-2.1) mmol/L Calcium 11.4 H (8.6-10.4) mg/dl Phosphorus 2.0 L (2.5-4.5) mg/dL Magnesium 1.5 L (1.6-2.3) mg/dL Total Bilirubin 0.3 (0.2-1.3) mg/dL AST 15 L D (17-59) U/L ALT 6 L D (21-72) U/L Alkaline Phosphatase 103 (38-126) U/L Troponin I (0.00-0.120) ng/mL C-React Prot High Sens (1.00-3.00) mg/L NT-Pro-B Natriuret Pep (0-900) pg/mL Total Protein 6.2 L (6.3-8.3) g/dL Albumin 3.2 L (3.5-5.0) g/dL Globulin 3.0 (2.2-3.9) gm/dL Albumin/Globulin Ratio 1.0 (1.0-2.1) Procalcitonin (0.19-0.49) NG/ML Plasma Cortisol PM (1.7-14.1) ug/dL Venous Blood Potassium (3.6-5.2) mmol/L Urine Color (YELLOW) Urine Clarity (Clear) Urine pH (5.0-8.0) Ur Specific [place] (1.003-1.030) Urine Protein (NEGATIVE) mg/dL Urine Glucose (UA) (Normal) mg/dL Urine Ketones (NEGATIVE) mg/dL Urine Blood (NEGATIVE) Urine Nitrate (NEGATIVE) Urine Bilirubin (NEGATIVE) Urine Urobilinogen (0.2-1.0) mg/dL Ur Leukocyte Esterase (Negative) [place]/uL Urine WBC (Auto) (0-5) /hpf 04/04/18 04/04/18 04/04/18 Range/Units 05:09 04:08 03:19 WBC (4.8-10.8) K/uL RBC (4.40-5.90) Mil/uL Hgb (12.0-18.0) g/dL Hct (35.0-51.0) % MCV (80.0-94.0) fL MCH (27.0-31.0) pg MCHC (33.0-37.0) g/dL RDW (11.5-14.5) % Plt Count (130-400) K/uL MPV (7.2-11.7) fL Neut % (Auto) (50.0-75.0) % Lymph % (Auto) (20.0-40.0) % [place] % (Auto) (0.0-10.0) % Eos % (Auto) (0.0-4.0) % Baso % (Auto) (0.0-2.0) % Neut # (Auto) (1.8-7.0) K/uL Lymph # (Auto) (1.0-4.3) K/uL [place] # (Auto) (0.0-0.8) K/uL Eos # (Auto) (0.0-0.7) K/uL Baso # (Auto) (0.0-0.2) K/uL PT (9.7-12.2) SECONDS INR APTT (21-34) SECONDS D-Dimer, Quantitative (0-243) ng/mlDDU Puncture Site pCO2 (35-45) mm/Hg pO2 (30-55) mm/Hg HCO3 (21-28) mmol/L ABG pH (7.35-7.45) ABG Total CO2 (22-28) mmol/L ABG O2 Saturation (95-98) % ABG Base Excess (-2.0-3.0) mmol/L ABG Hemoglobin (11.7-17.4) g/dL ABG Carboxyhemoglobin (0.5-1.5) % POC ABG HHb (Measured) (0.0-5.0) % ABG Methemoglobin (0.0-3.0) % Eyal Test VBG pH (7.32-7.43) VBG pCO2 (40-60) mmHg VBG HCO3 mmol/L VBG Total CO2 (22-28) mmol/L VBG O2 Sat (Calc) (40-65) % VBG Base Excess (0.0-2.0) mmol/L VBG Potassium (3.6-5.2) mmol/L Hgb O2 Saturation (95.0-98.0) % Glucose (75-110) mg/dl Lactate (0.7-2.1) mmol/L Liter Flow Crit Value Called To Crit Value Called By Crit Value Read Back Blood Gas Notified Time Sodium (132-148) mmol/L Potassium (3.6-5.2) mmol/L Chloride (98-107) mmol/L Carbon Dioxide (22-30) mmol/L Anion Gap (10-20) BUN (9-20) mg/dL Creatinine (0.8-1.5) mg/dL Est GFR ( Amer) Est GFR (Non-Af Amer) POC Glucose (mg/dL) > 500 H* > 500 H* > 500 H* (65-110) mg/dL Random Glucose (75-110) mg/dL Lactic Acid (0.7-2.1) mmol/L Calcium (8.6-10.4) mg/dl Phosphorus (2.5-4.5) mg/dL Magnesium (1.6-2.3) mg/dL Total Bilirubin (0.2-1.3) mg/dL AST (17-59) U/L ALT (21-72) U/L Alkaline Phosphatase (38-126) U/L Troponin I (0.00-0.120) ng/mL C-React Prot High Sens (1.00-3.00) mg/L NT-Pro-B Natriuret Pep (0-900) pg/mL Total Protein (6.3-8.3) g/dL Albumin (3.5-5.0) g/dL Globulin (2.2-3.9) gm/dL Albumin/Globulin Ratio (1.0-2.1) Procalcitonin (0.19-0.49) NG/ML Plasma Cortisol PM (1.7-14.1) ug/dL Venous Blood Potassium (3.6-5.2) mmol/L Urine Color (YELLOW) Urine Clarity (Clear) Urine pH (5.0-8.0) Ur Specific [place] (1.003-1.030) Urine Protein (NEGATIVE) mg/dL Urine Glucose (UA) (Normal) mg/dL Urine Ketones (NEGATIVE) mg/dL Urine Blood (NEGATIVE) Urine Nitrate (NEGATIVE) Urine Bilirubin (NEGATIVE) Urine Urobilinogen (0.2-1.0) mg/dL Ur Leukocyte Esterase (Negative) [place]/uL Urine WBC (Auto) (0-5) /hpf 04/04/18 04/04/18 04/04/18 Range/Units 02:04 01:09 00:37 WBC (4.8-10.8) K/uL RBC (4.40-5.90) Mil/uL Hgb (12.0-18.0) g/dL Hct (35.0-51.0) % MCV (80.0-94.0) fL MCH (27.0-31.0) pg MCHC (33.0-37.0) g/dL RDW (11.5-14.5) % Plt Count (130-400) K/uL MPV (7.2-11.7) fL Neut % (Auto) (50.0-75.0) % Lymph % (Auto) (20.0-40.0) % [place] % (Auto) (0.0-10.0) % Eos % (Auto) (0.0-4.0) % Baso % (Auto) (0.0-2.0) % Neut # (Auto) (1.8-7.0) K/uL Lymph # (Auto) (1.0-4.3) K/uL [place] # (Auto) (0.0-0.8) K/uL Eos # (Auto) (0.0-0.7) K/uL Baso # (Auto) (0.0-0.2) K/uL PT (9.7-12.2) SECONDS INR APTT (21-34) SECONDS D-Dimer, Quantitative (0-243) ng/mlDDU Puncture Site pCO2 (35-45) mm/Hg pO2 25 L (30-55) mm/Hg HCO3 (21-28) mmol/L ABG pH (7.35-7.45) ABG Total CO2 (22-28) mmol/L ABG O2 Saturation (95-98) % ABG Base Excess (-2.0-3.0) mmol/L ABG Hemoglobin (11.7-17.4) g/dL ABG Carboxyhemoglobin (0.5-1.5) % POC ABG HHb (Measured) (0.0-5.0) % ABG Methemoglobin (0.0-3.0) % Eyal Test VBG pH 7.32 (7.32-7.43) VBG pCO2 58 (40-60) mmHg VBG HCO3 25.2 mmol/L VBG Total CO2 31.7 H (22-28) mmol/L VBG O2 Sat (Calc) 42.2 (40-65) % VBG Base Excess 2.4 H (0.0-2.0) mmol/L VBG Potassium 4.6 (3.6-5.2) mmol/L Hgb O2 Saturation (95.0-98.0) % Glucose 740 H* D (75-110) mg/dl Lactate 2.7 H (0.7-2.1) mmol/L Liter Flow Crit Value Called To Linda nevarez ecclesiastical worker Crit Value Called By Paulina worley rt Crit Value Read Back Y Blood Gas Notified Time 46 Sodium 150.0 H (132-148) mmol/L Potassium (3.6-5.2) mmol/L Chloride 110.0 H (98-107) mmol/L Carbon Dioxide (22-30) mmol/L Anion Gap (10-20) BUN (9-20) mg/dL Creatinine (0.8-1.5) mg/dL Est GFR ( Amer) Est GFR (Non-Af Amer) POC Glucose (mg/dL) > 500 H* > 500 H* (65-110) mg/dL Random Glucose (75-110) mg/dL Lactic Acid (0.7-2.1) mmol/L Calcium (8.6-10.4) mg/dl Phosphorus (2.5-4.5) mg/dL Magnesium (1.6-2.3) mg/dL Total Bilirubin (0.2-1.3) mg/dL AST (17-59) U/L ALT (21-72) U/L Alkaline Phosphatase (38-126) U/L Troponin I (0.00-0.120) ng/mL C-React Prot High Sens (1.00-3.00) mg/L NT-Pro-B Natriuret Pep (0-900) pg/mL Total Protein (6.3-8.3) g/dL Albumin (3.5-5.0) g/dL Globulin (2.2-3.9) gm/dL Albumin/Globulin Ratio (1.0-2.1) Procalcitonin (0.19-0.49) NG/ML Plasma Cortisol PM (1.7-14.1) ug/dL Venous Blood Potassium 4.6 (3.6-5.2) mmol/L Urine Color (YELLOW) Urine Clarity (Clear) Urine pH (5.0-8.0) Ur Specific [place] (1.003-1.030) Urine Protein (NEGATIVE) mg/dL Urine Glucose (UA) (Normal) mg/dL Urine Ketones (NEGATIVE) mg/dL Urine Blood (NEGATIVE) Urine Nitrate (NEGATIVE) Urine Bilirubin (NEGATIVE) Urine Urobilinogen (0.2-1.0) mg/dL Ur Leukocyte Esterase (Negative) [place]/uL Urine WBC (Auto) (0-5) /hpf 04/04/18 04/03/18 04/03/18 Range/Units 00:23 23:45 22:35 WBC (4.8-10.8) K/uL RBC (4.40-5.90) Mil/uL Hgb (12.0-18.0) g/dL Hct (35.0-51.0) % MCV (80.0-94.0) fL MCH (27.0-31.0) pg MCHC (33.0-37.0) g/dL RDW (11.5-14.5) % Plt Count (130-400) K/uL MPV (7.2-11.7) fL Neut % (Auto) (50.0-75.0) % Lymph % (Auto) (20.0-40.0) % [place] % (Auto) (0.0-10.0) % Eos % (Auto) (0.0-4.0) % Baso % (Auto) (0.0-2.0) % Neut # (Auto) (1.8-7.0) K/uL Lymph # (Auto) (1.0-4.3) K/uL [place] # (Auto) (0.0-0.8) K/uL Eos # (Auto) (0.0-0.7) K/uL Baso # (Auto) (0.0-0.2) K/uL PT 10.6 (9.7-12.2) SECONDS INR 1.0 APTT 24 (21-34) SECONDS D-Dimer, Quantitative 1665 H (0-243) ng/mlDDU Puncture Site R rad pCO2 37 (35-45) mm/Hg pO2 99 (30-55) mm/Hg HCO3 25.2 (21-28) mmol/L ABG pH 7.43 (7.35-7.45) ABG Total CO2 25.7 (22-28) mmol/L ABG O2 Saturation 99.0 H (95-98) % ABG Base Excess 0.4 (-2.0-3.0) mmol/L ABG Hemoglobin 9.8 L (11.7-17.4) g/dL ABG Carboxyhemoglobin 1.6 H (0.5-1.5) % POC ABG HHb (Measured) 1.0 (0.0-5.0) % ABG Methemoglobin 1.5 (0.0-3.0) % Eyal Test Pos VBG pH (7.32-7.43) VBG pCO2 (40-60) mmHg VBG HCO3 mmol/L VBG Total CO2 (22-28) mmol/L VBG O2 Sat (Calc) (40-65) % VBG Base Excess (0.0-2.0) mmol/L VBG Potassium (3.6-5.2) mmol/L Hgb O2 Saturation 95.9 (95.0-98.0) % Glucose (75-110) mg/dl Lactate (0.7-2.1) mmol/L Liter Flow 2.0 Crit Value Called To Crit Value Called By Crit Value Read Back Blood Gas Notified Time Sodium (132-148) mmol/L Potassium (3.6-5.2) mmol/L Chloride (98-107) mmol/L Carbon Dioxide (22-30) mmol/L Anion Gap (10-20) BUN (9-20) mg/dL Creatinine (0.8-1.5) mg/dL Est GFR ( Amer) Est GFR (Non-Af Amer) POC Glucose (mg/dL) (65-110) mg/dL Random Glucose (75-110) mg/dL Lactic Acid (0.7-2.1) mmol/L Calcium (8.6-10.4) mg/dl Phosphorus (2.5-4.5) mg/dL Magnesium (1.6-2.3) mg/dL Total Bilirubin (0.2-1.3) mg/dL AST (17-59) U/L ALT (21-72) U/L Alkaline Phosphatase (38-126) U/L Troponin I (0.00-0.120) ng/mL C-React Prot High Sens (1.00-3.00) mg/L NT-Pro-B Natriuret Pep (0-900) pg/mL Total Protein (6.3-8.3) g/dL Albumin (3.5-5.0) g/dL Globulin (2.2-3.9) gm/dL Albumin/Globulin Ratio (1.0-2.1) Procalcitonin (0.19-0.49) NG/ML Plasma Cortisol PM (1.7-14.1) ug/dL Venous Blood Potassium (3.6-5.2) mmol/L Urine Color Yellow (YELLOW) Urine Clarity Clear (Clear) Urine pH 5.0 (5.0-8.0) Ur Specific [place] 1.026 (1.003-1.030) Urine Protein Negative (NEGATIVE) mg/dL Urine Glucose (UA) 3+ H (Normal) mg/dL Urine Ketones Trace (NEGATIVE) mg/dL Urine Blood Negative (NEGATIVE) Urine Nitrate Negative (NEGATIVE) Urine Bilirubin Negative (NEGATIVE) Urine Urobilinogen Normal (0.2-1.0) mg/dL Ur Leukocyte Esterase Neg (Negative) [place]ore/uL Urine WBC (Auto) 1 (0-5) /hpf 04/03/18 04/03/18 04/03/18 Range/Units 22:35 22:35 22:35 WBC 8.4 (4.8-10.8) K/uL RBC 3.98 L (4.40-5.90) Mil/uL Hgb 11.2 L D (12.0-18.0) g/dL Hct 36.1 (35.0-51.0) % MCV 90.6 (80.0-94.0) fL MCH 28.0 (27.0-31.0) pg MCHC 30.9 L (33.0-37.0) g/dL RDW 18.5 H (11.5-14.5) % Plt Count 242 (130-400) K/uL MPV 10.3 (7.2-11.7) fL Neut % (Auto) 79.4 H (50.0-75.0) % Lymph % (Auto) 14.6 L (20.0-40.0) % [place] % (Auto) 5.8 (0.0-10.0) % Eos % (Auto) 0.0 (0.0-4.0) % Baso % (Auto) 0.2 (0.0-2.0) % Neut # (Auto) 6.7 (1.8-7.0) K/uL Lymph # (Auto) 1.2 (1.0-4.3) K/uL [place] # (Auto) 0.5 (0.0-0.8) K/uL Eos # (Auto) 0.0 (0.0-0.7) K/uL Baso # (Auto) 0.0 (0.0-0.2) K/uL PT (9.7-12.2) SECONDS INR APTT (21-34) SECONDS D-Dimer, Quantitative (0-243) ng/mlDDU Puncture Site pCO2 (35-45) mm/Hg pO2 (30-55) mm/Hg HCO3 (21-28) mmol/L ABG pH (7.35-7.45) ABG Total CO2 (22-28) mmol/L ABG O2 Saturation (95-98) % ABG Base Excess (-2.0-3.0) mmol/L ABG Hemoglobin (11.7-17.4) g/dL ABG Carboxyhemoglobin (0.5-1.5) % POC ABG HHb (Measured) (0.0-5.0) % ABG Methemoglobin (0.0-3.0) % Eyal Test VBG pH (7.32-7.43) VBG pCO2 (40-60) mmHg VBG HCO3 mmol/L VBG Total CO2 (22-28) mmol/L VBG O2 Sat (Calc) (40-65) % VBG Base Excess (0.0-2.0) mmol/L VBG Potassium (3.6-5.2) mmol/L Hgb O2 Saturation (95.0-98.0) % Glucose (75-110) mg/dl Lactate (0.7-2.1) mmol/L Liter Flow Crit Value Called To Crit Value Called By Crit Value Read Back Blood Gas Notified Time Sodium (132-148) mmol/L Potassium (3.6-5.2) mmol/L Chloride (98-107) mmol/L Carbon Dioxide (22-30) mmol/L Anion Gap (10-20) BUN (9-20) mg/dL Creatinine (0.8-1.5) mg/dL Est GFR ( Amer) Est GFR (Non-Af Amer) POC Glucose (mg/dL) (65-110) mg/dL Random Glucose (75-110) mg/dL Lactic Acid 1.6 (0.7-2.1) mmol/L Calcium (8.6-10.4) mg/dl Phosphorus (2.5-4.5) mg/dL Magnesium (1.6-2.3) mg/dL Total Bilirubin (0.2-1.3) mg/dL AST (17-59) U/L ALT (21-72) U/L Alkaline Phosphatase (38-126) U/L Troponin I (0.00-0.120) ng/mL C-React Prot High Sens (1.00-3.00) mg/L NT-Pro-B Natriuret Pep (0-900) pg/mL Total Protein (6.3-8.3) g/dL Albumin (3.5-5.0) g/dL Globulin (2.2-3.9) gm/dL Albumin/Globulin Ratio (1.0-2.1) Procalcitonin (0.19-0.49) NG/ML Plasma Cortisol PM 40.3 H (1.7-14.1) ug/dL Venous Blood Potassium (3.6-5.2) mmol/L Urine Color (YELLOW) Urine Clarity (Clear) Urine pH (5.0-8.0) Ur Specific [place] (1.003-1.030) Urine Protein (NEGATIVE) mg/dL Urine Glucose (UA) (Normal) mg/dL Urine Ketones (NEGATIVE) mg/dL Urine Blood (NEGATIVE) Urine Nitrate (NEGATIVE) Urine Bilirubin (NEGATIVE) Urine Urobilinogen (0.2-1.0) mg/dL Ur Leukocyte Esterase (Negative) [place]/uL Urine WBC (Auto) (0-5) /hpf 04/03/18 04/03/18 04/03/18 Range/Units 22:35 22:35 22:05 WBC (4.8-10.8) K/uL RBC (4.40-5.90) Mil/uL Hgb (12.0-18.0) g/dL Hct (35.0-51.0) % MCV (80.0-94.0) fL MCH (27.0-31.0) pg MCHC (33.0-37.0) g/dL RDW (11.5-14.5) % Plt Count (130-400) K/uL MPV (7.2-11.7) fL Neut % (Auto) (50.0-75.0) % Lymph % (Auto) (20.0-40.0) % [place] % (Auto) (0.0-10.0) % Eos % (Auto) (0.0-4.0) % Baso % (Auto) (0.0-2.0) % Neut # (Auto) (1.8-7.0) K/uL Lymph # (Auto) (1.0-4.3) K/uL [place] # (Auto) (0.0-0.8) K/uL Eos # (Auto) (0.0-0.7) K/uL Baso # (Auto) (0.0-0.2) K/uL PT (9.7-12.2) SECONDS INR APTT (21-34) SECONDS D-Dimer, Quantitative (0-243) ng/mlDDU Puncture Site pCO2 (35-45) mm/Hg pO2 19 L (30-55) mm/Hg HCO3 (21-28) mmol/L ABG pH (7.35-7.45) ABG Total CO2 (22-28) mmol/L ABG O2 Saturation (95-98) % ABG Base Excess (-2.0-3.0) mmol/L ABG Hemoglobin (11.7-17.4) g/dL ABG Carboxyhemoglobin (0.5-1.5) % POC ABG HHb (Measured) (0.0-5.0) % ABG Methemoglobin (0.0-3.0) % Eyal Test VBG pH 7.33 (7.32-7.43) VBG pCO2 62 H (40-60) mmHg VBG HCO3 26.8 mmol/L VBG Total CO2 34.6 H (22-28) mmol/L VBG O2 Sat (Calc) 32.9 L (40-65) % VBG Base Excess 4.9 H (0.0-2.0) mmol/L VBG Potassium 5.0 (3.6-5.2) mmol/L Hgb O2 Saturation (95.0-98.0) % Glucose 568 H* D (75-110) mg/dl Lactate 2.1 (0.7-2.1) mmol/L Liter Flow Crit Value Called To Er nurse Crit Value Called By Georgie rt Crit Value Read Back Y Blood Gas Notified Time 2210 Sodium 148.0 (132-148) mmol/L Potassium (3.6-5.2) mmol/L Chloride 106.0 (98-107) mmol/L Carbon Dioxide (22-30) mmol/L Anion Gap (10-20) BUN (9-20) mg/dL Creatinine (0.8-1.5) mg/dL Est GFR ( Amer) Est GFR (Non-Af Amer) POC Glucose (mg/dL) (65-110) mg/dL Random Glucose (75-110) mg/dL Lactic Acid (0.7-2.1) mmol/L Calcium (8.6-10.4) mg/dl Phosphorus (2.5-4.5) mg/dL Magnesium (1.6-2.3) mg/dL Total Bilirubin (0.2-1.3) mg/dL AST (17-59) U/L ALT (21-72) U/L Alkaline Phosphatase (38-126) U/L Troponin I (0.00-0.120) ng/mL C-React Prot High Sens 9.62 H (1.00-3.00) mg/L NT-Pro-B Natriuret Pep (0-900) pg/mL Total Protein (6.3-8.3) g/dL Albumin (3.5-5.0) g/dL Globulin (2.2-3.9) gm/dL Albumin/Globulin Ratio (1.0-2.1) Procalcitonin 0.07 L (0.19-0.49) NG/ML Plasma Cortisol PM (1.7-14.1) ug/dL Venous Blood Potassium 5.0 (3.6-5.2) mmol/L Urine Color (YELLOW) Urine Clarity (Clear) Urine pH (5.0-8.0) Ur Specific [place] (1.003-1.030) Urine Protein (NEGATIVE) mg/dL Urine Glucose (UA) (Normal) mg/dL Urine Ketones (NEGATIVE) mg/dL Urine Blood (NEGATIVE) Urine Nitrate (NEGATIVE) Urine Bilirubin (NEGATIVE) Urine Urobilinogen (0.2-1.0) mg/dL Ur Leukocyte Esterase (Negative) [place]/uL Urine WBC (Auto) (0-5) /hpf 04/03/18 04/03/18 Range/Units 21:54 21:51 WBC (4.8-10.8) K/uL RBC (4.40-5.90) Mil/uL Hgb (12.0-18.0) g/dL Hct (35.0-51.0) % MCV (80.0-94.0) fL MCH (27.0-31.0) pg MCHC (33.0-37.0) g/dL RDW (11.5-14.5) % Plt Count (130-400) K/uL MPV (7.2-11.7) fL Neut % (Auto) (50.0-75.0) % Lymph % (Auto) (20.0-40.0) % [place] % (Auto) (0.0-10.0) % Eos % (Auto) (0.0-4.0) % Baso % (Auto) (0.0-2.0) % Neut # (Auto) (1.8-7.0) K/uL Lymph # (Auto) (1.0-4.3) K/uL [place] # (Auto) (0.0-0.8) K/uL Eos # (Auto) (0.0-0.7) K/uL Baso # (Auto) (0.0-0.2) K/uL PT (9.7-12.2) SECONDS INR APTT (21-34) SECONDS D-Dimer, Quantitative (0-243) ng/mlDDU Puncture Site pCO2 (35-45) mm/Hg pO2 (30-55) mm/Hg HCO3 (21-28) mmol/L ABG pH (7.35-7.45) ABG Total CO2 (22-28) mmol/L ABG O2 Saturation (95-98) % ABG Base Excess (-2.0-3.0) mmol/L ABG Hemoglobin (11.7-17.4) g/dL ABG Carboxyhemoglobin (0.5-1.5) % POC ABG HHb (Measured) (0.0-5.0) % ABG Methemoglobin (0.0-3.0) % Eyal Test VBG pH (7.32-7.43) VBG pCO2 (40-60) mmHg VBG HCO3 mmol/L VBG Total CO2 (22-28) mmol/L VBG O2 Sat (Calc) (40-65) % VBG Base Excess (0.0-2.0) mmol/L VBG Potassium (3.6-5.2) mmol/L Hgb O2 Saturation (95.0-98.0) % Glucose (75-110) mg/dl Lactate (0.7-2.1) mmol/L Liter Flow Crit Value Called To Crit Value Called By Crit Value Read Back Blood Gas Notified Time Sodium 148 (132-148) mmol/L Potassium 5.6 H (3.6-5.2) mmol/L Chloride 103 (98-107) mmol/L Carbon Dioxide 29 (22-30) mmol/L Anion Gap 22 H (10-20) BUN 73 H (9-20) mg/dL Creatinine 1.2 (0.8-1.5) mg/dL Est GFR ( Amer) > 60 Est GFR (Non-Af Amer) 59 POC Glucose (mg/dL) > 500 H* (65-110) mg/dL Random Glucose 954 H* D (75-110) mg/dL Lactic Acid (0.7-2.1) mmol/L Calcium 12.3 H (8.6-10.4) mg/dl Phosphorus 3.6 (2.5-4.5) mg/dL Magnesium 1.8 (1.6-2.3) mg/dL Total Bilirubin 0.5 (0.2-1.3) mg/dL AST 19 (17-59) U/L ALT 22 (21-72) U/L Alkaline Phosphatase 128 H D (38-126) U/L Troponin I 0.1220 H* (0.00-0.120) ng/mL C-React Prot High Sens (1.00-3.00) mg/L NT-Pro-B Natriuret Pep 1220 H (0-900) pg/mL Total Protein 7.0 (6.3-8.3) g/dL Albumin 3.8 (3.5-5.0) g/dL Globulin 3.2 (2.2-3.9) gm/dL Albumin/Globulin Ratio 1.2 (1.0-2.1) Procalcitonin (0.19-0.49) NG/ML Plasma Cortisol PM (1.7-14.1) ug/dL Venous Blood Potassium (3.6-5.2) mmol/L Urine Color (YELLOW) Urine Clarity (Clear) Urine pH (5.0-8.0) Ur Specific [place] (1.003-1.030) Urine Protein (NEGATIVE) mg/dL Urine Glucose (UA) (Normal) mg/dL Urine Ketones (NEGATIVE) mg/dL Urine Blood (NEGATIVE) Urine Nitrate (NEGATIVE) Urine Bilirubin (NEGATIVE) Urine Urobilinogen (0.2-1.0) mg/dL Ur Leukocyte Esterase (Negative) Lenore/uL Urine WBC (Auto) (0-5) /hpf Laboratory Results - last 24 hr 04/03/18 04/03/18 04/03/18 21:51 21:54 22:05 WBC RBC Hgb Hct MCV MCH MCHC RDW Plt Count MPV Neut % (Auto) Lymph % (Auto) [place] % (Auto) Eos % (Auto) Baso % (Auto) Neut # (Auto) Lymph # (Auto) [place] # (Auto) Eos # (Auto) Baso # (Auto) PT INR APTT D-Dimer, Quantitative Puncture Site pCO2 pO2 19 L HCO3 ABG pH ABG Total CO2 ABG O2 Saturation ABG Base Excess ABG Hemoglobin ABG Carboxyhemoglobin POC ABG HHb (Measured) ABG Methemoglobin Eyal Test VBG pH 7.33 VBG pCO2 62 H VBG HCO3 26.8 VBG Total CO2 34.6 H VBG O2 Sat (Calc) 32.9 L VBG Base Excess 4.9 H VBG Potassium 5.0 Hgb O2 Saturation Glucose 568 H* D Lactate 2.1 Liter Flow Crit Value Called To Er nurse Crit Value Called By Georgie rt Crit Value Read Back Y Blood Gas Notified Time 2210 Sodium 148 148.0 Potassium 5.6 H Chloride 103 106.0 Carbon Dioxide 29 Anion Gap 22 H BUN 73 H Creatinine 1.2 Est GFR ( Amer) > 60 Est GFR (Non-Af Amer) 59 POC Glucose (mg/dL) > 500 H* Random Glucose 954 H* D Lactic Acid Calcium 12.3 H Phosphorus 3.6 Magnesium 1.8 Total Bilirubin 0.5 AST 19 ALT 22 Alkaline Phosphatase 128 H D Troponin I 0.1220 H* C-React Prot High Sens NT-Pro-B Natriuret Pep 1220 H Total Protein 7.0 Albumin 3.8 Globulin 3.2 Albumin/Globulin Ratio 1.2 Procalcitonin Plasma Cortisol PM Venous Blood Potassium 5.0 Urine Color Urine Clarity Urine pH Ur Specific [place] Urine Protein Urine Glucose (UA) Urine Ketones Urine Blood Urine Nitrate Urine Bilirubin Urine Urobilinogen Ur Leukocyte Esterase Urine WBC (Auto) 04/03/18 04/03/18 04/03/18 22:35 22:35 22:35 WBC RBC Hgb Hct MCV MCH MCHC RDW Plt Count MPV Neut % (Auto) Lymph % (Auto) [place] % (Auto) Eos % (Auto) Baso % (Auto) Neut # (Auto) Lymph # (Auto) [place] # (Auto) Eos # (Auto) Baso # (Auto) PT INR APTT D-Dimer, Quantitative Puncture Site pCO2 pO2 HCO3 ABG pH ABG Total CO2 ABG O2 Saturation ABG Base Excess ABG Hemoglobin ABG Carboxyhemoglobin POC ABG HHb (Measured) ABG Methemoglobin Eyal Test VBG pH VBG pCO2 VBG HCO3 VBG Total CO2 VBG O2 Sat (Calc) VBG Base Excess VBG Potassium Hgb O2 Saturation Glucose Lactate Liter Flow Crit Value Called To Crit Value Called By Crit Value Read Back Blood Gas Notified Time Sodium Potassium Chloride Carbon Dioxide Anion Gap BUN Creatinine Est GFR ( Amer) Est GFR (Non-Af Amer) POC Glucose (mg/dL) Random Glucose Lactic Acid Calcium Phosphorus Magnesium Total Bilirubin AST ALT Alkaline Phosphatase Troponin I C-React Prot High Sens 9.62 H NT-Pro-B Natriuret Pep Total Protein Albumin Globulin Albumin/Globulin Ratio Procalcitonin 0.07 L Plasma Cortisol PM 40.3 H Venous Blood Potassium Urine Color Urine Clarity Urine pH Ur Specific [place] Urine Protein Urine Glucose (UA) Urine Ketones Urine Blood Urine Nitrate Urine Bilirubin Urine Urobilinogen Ur Leukocyte Esterase Urine WBC (Auto) 04/03/18 04/03/18 04/03/18 22:35 22:35 22:35 WBC 8.4 RBC 3.98 L Hgb 11.2 L D Hct 36.1 MCV 90.6 MCH 28.0 MCHC 30.9 L RDW 18.5 H Plt Count 242 MPV 10.3 Neut % (Auto) 79.4 H Lymph % (Auto) 14.6 L [place] % (Auto) 5.8 Eos % (Auto) 0.0 Baso % (Auto) 0.2 Neut # (Auto) 6.7 Lymph # (Auto) 1.2 [place] # (Auto) 0.5 Eos # (Auto) 0.0 Baso # (Auto) 0.0 PT 10.6 INR 1.0 APTT 24 D-Dimer, Quantitative 1665 H Puncture Site pCO2 pO2 HCO3 ABG pH ABG Total CO2 ABG O2 Saturation ABG Base Excess ABG Hemoglobin ABG Carboxyhemoglobin POC ABG HHb (Measured) ABG Methemoglobin Eyal Test VBG pH VBG pCO2 VBG HCO3 VBG Total CO2 VBG O2 Sat (Calc) VBG Base Excess VBG Potassium Hgb O2 Saturation Glucose Lactate Liter Flow Crit Value Called To Crit Value Called By Crit Value Read Back Blood Gas Notified Time Sodium Potassium Chloride Carbon Dioxide Anion Gap BUN Creatinine Est GFR ( Amer) Est GFR (Non-Af Amer) POC Glucose (mg/dL) Random Glucose Lactic Acid 1.6 Calcium Phosphorus Magnesium Total Bilirubin AST ALT Alkaline Phosphatase Troponin I C-React Prot High Sens NT-Pro-B Natriuret Pep Total Protein Albumin Globulin Albumin/Globulin Ratio Procalcitonin Plasma Cortisol PM Venous Blood Potassium Urine Color Urine Clarity Urine pH Ur Specific [place] Urine Protein Urine Glucose (UA) Urine Ketones Urine Blood Urine Nitrate Urine Bilirubin Urine Urobilinogen Ur Leukocyte Esterase Urine WBC (Auto) 04/03/18 04/04/18 04/04/18 23:45 00:23 00:37 WBC RBC Hgb Hct MCV MCH MCHC RDW Plt Count MPV Neut % (Auto) Lymph % (Auto) [place] % (Auto) Eos % (Auto) Baso % (Auto) Neut # (Auto) Lymph # (Auto) [place] # (Auto) Eos # (Auto) Baso # (Auto) PT INR APTT D-Dimer, Quantitative Puncture Site R rad pCO2 37 pO2 99 25 L HCO3 25.2 ABG pH 7.43 ABG Total CO2 25.7 ABG O2 Saturation 99.0 H ABG Base Excess 0.4 ABG Hemoglobin 9.8 L ABG Carboxyhemoglobin 1.6 H POC ABG HHb (Measured) 1.0 ABG Methemoglobin 1.5 Eyal Test Pos VBG pH 7.32 VBG pCO2 58 VBG HCO3 25.2 VBG Total CO2 31.7 H VBG O2 Sat (Calc) 42.2 VBG Base Excess 2.4 H VBG Potassium 4.6 Hgb O2 Saturation 95.9 Glucose 740 H* D Lactate 2.7 H Liter Flow 2.0 Crit Value Called To Linda ross rn Crit Value Called By Paulina worley rt Crit Value Read Back Y Blood Gas Notified Time 46 Sodium 150.0 H Potassium Chloride 110.0 H Carbon Dioxide Anion Gap BUN Creatinine Est GFR ( Amer) Est GFR (Non-Af Amer) POC Glucose (mg/dL) Random Glucose Lactic Acid Calcium Phosphorus Magnesium Total Bilirubin AST ALT Alkaline Phosphatase Troponin I C-React Prot High Sens NT-Pro-B Natriuret Pep Total Protein Albumin Globulin Albumin/Globulin Ratio Procalcitonin Plasma Cortisol PM Venous Blood Potassium 4.6 Urine Color Yellow Urine Clarity Clear Urine pH 5.0 Ur Specific [place] 1.026 Urine Protein Negative Urine Glucose (UA) 3+ H Urine Ketones Trace Urine Blood Negative Urine Nitrate Negative Urine Bilirubin Negative Urine Urobilinogen Normal Ur Leukocyte Esterase Neg Urine WBC (Auto) 1 04/04/18 04/04/18 04/04/18 01:09 02:04 03:19 WBC RBC Hgb Hct MCV MCH MCHC RDW Plt Count MPV Neut % (Auto) Lymph % (Auto) [place] % (Auto) Eos % (Auto) Baso % (Auto) Neut # (Auto) Lymph # (Auto) [place] # (Auto) Eos # (Auto) Baso # (Auto) PT INR APTT D-Dimer, Quantitative Puncture Site pCO2 pO2 HCO3 ABG pH ABG Total CO2 ABG O2 Saturation ABG Base Excess ABG Hemoglobin ABG Carboxyhemoglobin POC ABG HHb (Measured) ABG Methemoglobin Eyal Test VBG pH VBG pCO2 VBG HCO3 VBG Total CO2 VBG O2 Sat (Calc) VBG Base Excess VBG Potassium Hgb O2 Saturation Glucose Lactate Liter Flow Crit Value Called To Crit Value Called By Crit Value Read Back Blood Gas Notified Time Sodium Potassium Chloride Carbon Dioxide Anion Gap BUN Creatinine Est GFR ( Amer) Est GFR (Non-Af Amer) POC Glucose (mg/dL) > 500 H* > 500 H* > 500 H* Random Glucose Lactic Acid Calcium Phosphorus Magnesium Total Bilirubin AST ALT Alkaline Phosphatase Troponin I C-React Prot High Sens NT-Pro-B Natriuret Pep Total Protein Albumin Globulin Albumin/Globulin Ratio Procalcitonin Plasma Cortisol PM Venous Blood Potassium Urine Color Urine Clarity Urine pH Ur Specific [place] Urine Protein Urine Glucose (UA) Urine Ketones Urine Blood Urine Nitrate Urine Bilirubin Urine Urobilinogen Ur Leukocyte Esterase Urine WBC (Auto) 04/04/18 04/04/18 04/04/18 04:08 05:09 05:37 WBC 9.1 RBC 3.67 L Hgb 10.2 L Hct 32.1 L MCV 87.6 D MCH 27.9 MCHC 31.9 L RDW 18.7 H Plt Count 213 MPV 10.1 Neut % (Auto) 78.8 H Lymph % (Auto) 16.1 L [place] % (Auto) 4.5 Eos % (Auto) 0.0 Baso % (Auto) 0.6 Neut # (Auto) 7.2 H Lymph # (Auto) 1.5 [place] # (Auto) 0.4 Eos # (Auto) 0.0 Baso # (Auto) 0.1 PT INR APTT D-Dimer, Quantitative Puncture Site pCO2 pO2 HCO3 ABG pH ABG Total CO2 ABG O2 Saturation ABG Base Excess ABG Hemoglobin ABG Carboxyhemoglobin POC ABG HHb (Measured) ABG Methemoglobin Eyal Test VBG pH VBG pCO2 VBG HCO3 VBG Total CO2 VBG O2 Sat (Calc) VBG Base Excess VBG Potassium Hgb O2 Saturation Glucose Lactate Liter Flow Crit Value Called To Crit Value Called By Crit Value Read Back Blood Gas Notified Time Sodium Potassium Chloride Carbon Dioxide Anion Gap BUN Creatinine Est GFR ( Amer) Est GFR (Non-Af Amer) POC Glucose (mg/dL) > 500 H* > 500 H* Random Glucose Lactic Acid Calcium Phosphorus Magnesium Total Bilirubin AST ALT Alkaline Phosphatase Troponin I C-React Prot High Sens NT-Pro-B Natriuret Pep Total Protein Albumin Globulin Albumin/Globulin Ratio Procalcitonin Plasma Cortisol PM Venous Blood Potassium Urine Color Urine Clarity Urine pH Ur Specific [place] Urine Protein Urine Glucose (UA) Urine Ketones Urine Blood Urine Nitrate Urine Bilirubin Urine Urobilinogen Ur Leukocyte Esterase Urine WBC (Auto) 04/04/18 04/04/18 04/04/18 05:37 06:20 07:19 WBC RBC Hgb Hct MCV MCH MCHC RDW Plt Count MPV Neut % (Auto) Lymph % (Auto) [place] % (Auto) Eos % (Auto) Baso % (Auto) Neut # (Auto) Lymph # (Auto) [place] # (Auto) Eos # (Auto) Baso # (Auto) PT INR APTT D-Dimer, Quantitative Puncture Site pCO2 pO2 HCO3 ABG pH ABG Total CO2 ABG O2 Saturation ABG Base Excess ABG Hemoglobin ABG Carboxyhemoglobin POC ABG HHb (Measured) ABG Methemoglobin Eyal Test VBG pH VBG pCO2 VBG HCO3 VBG Total CO2 VBG O2 Sat (Calc) VBG Base Excess VBG Potassium Hgb O2 Saturation Glucose Lactate Liter Flow Crit Value Called To Crit Value Called By Crit Value Read Back Blood Gas Notified Time Sodium 157 H Potassium 3.6 Chloride 116 H Carbon Dioxide 24 Anion Gap 21 H BUN 59 H Creatinine 1.1 Est GFR ( Amer) > 60 Est GFR (Non-Af Amer) > 60 POC Glucose (mg/dL) 483 H* 311 H Random Glucose 467 H* D Lactic Acid Calcium 11.4 H Phosphorus 2.0 L Magnesium 1.5 L Total Bilirubin 0.3 AST 15 L D ALT 6 L D Alkaline Phosphatase 103 Troponin I C-React Prot High Sens NT-Pro-B Natriuret Pep Total Protein 6.2 L Albumin 3.2 L Globulin 3.0 Albumin/Globulin Ratio 1.0 Procalcitonin Plasma Cortisol PM Venous Blood Potassium Urine Color Urine Clarity Urine pH Ur Specific [place] Urine Protein Urine Glucose (UA) Urine Ketones Urine Blood Urine Nitrate Urine Bilirubin Urine Urobilinogen Ur Leukocyte Esterase Urine WBC (Auto) 04/04/18 04/04/18 04/04/18 08:06 09:06 10:14 WBC RBC Hgb Hct MCV MCH MCHC RDW Plt Count MPV Neut % (Auto) Lymph % (Auto) [place] % (Auto) Eos % (Auto) Baso % (Auto) Neut # (Auto) Lymph # (Auto) [place] # (Auto) Eos # (Auto) Baso # (Auto) PT INR APTT D-Dimer, Quantitative Puncture Site pCO2 pO2 HCO3 ABG pH ABG Total CO2 ABG O2 Saturation ABG Base Excess ABG Hemoglobin ABG Carboxyhemoglobin POC ABG HHb (Measured) ABG Methemoglobin Eyal Test VBG pH VBG pCO2 VBG HCO3 VBG Total CO2 VBG O2 Sat (Calc) VBG Base Excess VBG Potassium Hgb O2 Saturation Glucose Lactate Liter Flow Crit Value Called To Crit Value Called By Crit Value Read Back Blood Gas Notified Time Sodium Potassium Chloride Carbon Dioxide Anion Gap BUN Creatinine Est GFR ( Amer) Est GFR (Non-Af Amer) POC Glucose (mg/dL) 254 H 178 H 159 H Random Glucose Lactic Acid Calcium Phosphorus Magnesium Total Bilirubin AST ALT Alkaline Phosphatase Troponin I C-React Prot High Sens NT-Pro-B Natriuret Pep Total Protein Albumin Globulin Albumin/Globulin Ratio Procalcitonin Plasma Cortisol PM Venous Blood Potassium Urine Color Urine Clarity Urine pH Ur Specific [place] Urine Protein Urine Glucose (UA) Urine Ketones Urine Blood Urine Nitrate Urine Bilirubin Urine Urobilinogen Ur Leukocyte Esterase Urine WBC (Auto) 04/04/18 04/04/18 12:10 14:05 WBC RBC Hgb Hct MCV MCH MCHC RDW Plt Count MPV Neut % (Auto) Lymph % (Auto) [place] % (Auto) Eos % (Auto) Baso % (Auto) Neut # (Auto) Lymph # (Auto) [place] # (Auto) Eos # (Auto) Baso # (Auto) PT INR APTT D-Dimer, Quantitative Puncture Site pCO2 pO2 HCO3 ABG pH ABG Total CO2 ABG O2 Saturation ABG Base Excess ABG Hemoglobin ABG Carboxyhemoglobin POC ABG HHb (Measured) ABG Methemoglobin Eyal Test VBG pH VBG pCO2 VBG HCO3 VBG Total CO2 VBG O2 Sat (Calc) VBG Base Excess VBG Potassium Hgb O2 Saturation Glucose Lactate Liter Flow Crit Value Called To Crit Value Called By Crit Value Read Back Blood Gas Notified Time Sodium Potassium Chloride Carbon Dioxide Anion Gap BUN Creatinine Est GFR ( Amer) Est GFR (Non-Af Amer) POC Glucose (mg/dL) 177 H 157 H Random Glucose Lactic Acid Calcium Phosphorus Magnesium Total Bilirubin AST ALT Alkaline Phosphatase Troponin I C-React Prot High Sens NT-Pro-B Natriuret Pep Total Protein Albumin Globulin Albumin/Globulin Ratio Procalcitonin Plasma Cortisol PM Venous Blood Potassium Urine Color Urine Clarity Urine pH Ur Specific [place] Urine Protein Urine Glucose (UA) Urine Ketones Urine Blood Urine Nitrate Urine Bilirubin Urine Urobilinogen Ur Leukocyte Esterase Urine WBC (Auto) EKG/Cardiology Studies: Cardiology / EKG Studies 04/03/18 21:51 ELECTROCARDIOGRAM Stat Comment: Mode Of Transportation: Reason For Exam: Sepsis Patient Fingerstick Blood Sugar Results: 177 Review of Systems - Review of Systems Systems not reviewed;Unavailable: Altered Mental Status Critical Care Progress Note - Nutrition Nutrition: Nutrition Category Date Time Status NPO Diet [DIET] Diets 04/04/18 Breakfast Active Assessment/Plan - Assessment and Plan (Free Text) Assessment: 77 yo M admitted w/ AMS, dehydration, HHNS Neuro: AMS, improving -head CT neg for any acute pathology -f/u left sinusitis Pulm: -NC GI: Nutrition -glucerna tube feeds via NGT Renal: Dehydration -NS @100 -UOP goal >25/hr Endo: HHNS-stable, off insulin drip DM2 -ISS q6 Ppx: -heparin 5000 bid -protonix 40 -SCD Dispo: -pt sister refusing hospice Case discussed w/ Dr. Yunier Ramos PGY1 - Date & Time Date: 04/04/18 Time: 16:25
--- NOTE | 2018-04-04 23:48 | CP.PCM.HP ---
History of Present Illness - History of Present Illness History of Present Illness: CC: Weakness, lethargy HPI: 77 y/o male with history of type 2 DM, CAD, RI, Perforated PUD s/p laprotomy,chronincally sick, [facility] resident [facility] ED from [facility] with a report of SOB and lethargy. Patient was previously discharged from [facility] after he was admitted for being in the ICU for a month with final diagnosis of acute CHF, CAD, HTN, RI, GERD and dehydration. Patient also had prior discharge on january 27 for HTN, Lethargy and weakness on February 21, and perforated ulcer on December 22 which required immediate surgery. Patient has PMHx of diabetes Type 2, peptic ulcer, RI, and PE. Currently, sisters at bedside say patient is DNI, DNR, and patient is acutely altered. Denies any other physical complaints.Pt was found to have hyperglycemia and increased BUN/ Creatinine, was hospitalized, he prefers to b e immobile and dosent want to talk, he is on Iv fluids and insulin and now feeling better. Present on Admission - Present on Admission Any Indicators Present on Admission: Yes Review of Systems - Review of Systems Systems not reviewed;Unavailable: Acuity of Condition - Constitutional Constitutional: Fatigue, Lethargy, Malaise, Weakness - EENT Eyes: absent: As Per HPI, Blind Spots, Blurred Vision, Change in Vision, Decreased Night Vision, Diplopia, Discharge, Dry Eye, Exophthalmos, Floaters, Irritation, Itchy Eyes, Loss of Peripheral Vision, Pain, Photophobia, Requires Corrective Lenses, Sees Flashes, Spots in Vision, Tunnel Vision, Other Visual Disturbances, Loss of Vision, Other Nose/Mouth/Throat: absent: As Per HPI, Epistaxis, Nasal Congestion, Nasal Discharge, Nasal Obstruction, Nasal Trauma, Nose Pain, Post Nasal Drip, Sinus Pain, Sinus Pressure, Bleeding Gums, Change in Voice, Dental Pain, Dry Mouth, Dysphagia, Halitosis, Hoarsness, Lip Swelling, Mouth Lesions, Mouth Pain, Odynophagia, Sore Throat, Throat Swelling, Tongue Swelling, Facial Pain, Neck Pain, Neck Mass, Other - Cardiovascular Cardiovascular: absent: As Per HPI, Acrocyanosis, Chest Pain, Chest Pain at Rest , Chest Pain with Activity, Claudication, Diaphoresis, Dyspnea, Dyspnea on Exertion, Edema, Irregular Heart Rhythm, Pain Radiating to Arm/Neck/Jaw, Leg Edema, Leg Ulcers, Lightheadedness, Orthopnea, Palpitations, Paroxysmal Nocturnal Dyspnea, Pedal Edema, Radiating Pain, Rapid Heart Rate, Slow Heart Rate, Syncope, Other - Respiratory Respiratory: absent: As Per HPI, Cough, Dyspnea, Hemoptysis, Dyspnea on Exertion , Wheezing, Snoring, Stridor, Pain on Inspiration, Chest Congestion, Excessive Mucous Production, Change in Mucous Color, Pain with Coughing, Other - Gastrointestinal Gastrointestinal: Constipation - Genitourinary Genitourinary: absent: As Per HPI, Change in Urinary Stream, Difficulty Urinating, Dysuria, Flank Pain, Hematuria, Pyuria, Nocturia, Urinary Incontinence, Urinary Frequency, Urinary Hesitance, Urinary Urgency, Voiding Freq/Small Amts, Freq UTI, Hx Renal/Bladder Calculi, Hx /Renal Surgery, Bladder Distension, Other - Musculoskeletal Musculoskeletal: Abnormal Gait, Muscle Weakness, Myalgias - Integumentary Integumentary: Dry Skin - Neurological Neurological: Confusion - Psychiatric Psychiatric: Anhedonia Past Patient History - Infectious Disease Hx of Infectious Diseases: None - Past Medical History & Family History Past Medical History?: Yes - Past Social History Smoking Status: Former Smoker - CARDIAC Hx Hypercholesterolemia: Yes Hx Hypertension: Yes - PULMONARY Hx Respiratory Disorders: No - NEUROLOGICAL Hx Neurological Disorder: Yes Hx Syncope: Yes - HEENT Hx HEENT Problems: No - RENAL Hx Chronic Kidney Disease: No - ENDOCRINE/METABOLIC Hx Diabetes Mellitus Type 2: Yes - HEMATOLOGICAL/ONCOLOGICAL Hx Blood Disorders: No - INTEGUMENTARY Hx Dermatological Problems: No - MUSCULOSKELETAL/RHEUMATOLOGICAL Hx Arthritis: Yes - GASTROINTESTINAL Hx Gastrointestinal Disorders: Yes Hx Gastroesophageal Reflux: Yes - GENITOURINARY/GYNECOLOGICAL Hx Genitourinary Disorders: No - PSYCHIATRIC Hx Substance Use: No - SURGICAL HISTORY Hx Surgeries: Yes Other/Comment: left knee replacement, and left nerve repair, left and right hand nerve repair, Exp.Lap 12/22/17, - ANESTHESIA Hx Anesthesia: Yes Hx Anesthesia Reactions: No Hx Malignant Hyperthermia: No Meds Allergies/Adverse Reactions: Allergies Allergy/AdvReac Type Severity Reaction Status Date / Time Penicillins Allergy Mild Verified 01/26/18 15:08 Physical Exam - Constitutional Appears: Confused, Cachectic Additional comments: pale, weak male - Eye Exam Eye Exam: EOMI, Normal appearance, PERRL Pupil Exam: NORMAL ACCOMODATION, PERRL - ENT Exam ENT Exam: Mucous Membranes Moist, Normal Exam - Respiratory Exam Respiratory Exam: Clear to Auscultation Bilateral, NORMAL BREATHING PATTERN - Cardiovascular Exam Cardiovascular Exam: REGULAR RHYTHM - GI/Abdominal Exam GI & Abdominal Exam: Normal Bowel Sounds, Soft. absent: Tenderness Additional comments: post op wound is clean - Rectal Exam Rectal Exam: Deferred Results - Vital Signs Recent Vital Signs: Last Vital Signs Temp 97.5 F L 04/04/18 20:00 Pulse 92 H 04/04/18 21:07 Resp 16 04/04/18 21:07 BP 107/53 L 04/04/18 21:07 Pulse Ox 100 04/04/18 21:00 - Labs Result Diagrams: 04/04/18 05:37 04/04/18 05:37 Labs: Laboratory Results - last 24 hr 04/03/18 04/03/18 04/04/18 22:35 23:45 00:23 WBC RBC Hgb Hct MCV MCH MCHC RDW Plt Count MPV Neut % (Auto) Lymph % (Auto) [place] % (Auto) Eos % (Auto) Baso % (Auto) Neut # (Auto) Lymph # (Auto) [place] # (Auto) Eos # (Auto) Baso # (Auto) Puncture Site R rad pCO2 37 pO2 99 HCO3 25.2 ABG pH 7.43 ABG Total CO2 25.7 ABG O2 Saturation 99.0 H ABG Base Excess 0.4 ABG Hemoglobin 9.8 L ABG Carboxyhemoglobin 1.6 H POC ABG HHb (Measured) 1.0 ABG Methemoglobin 1.5 Eyal Test Pos VBG pH VBG pCO2 VBG HCO3 VBG Total CO2 VBG O2 Sat (Calc) VBG Base Excess VBG Potassium Hgb O2 Saturation 95.9 Sodium Chloride Glucose Lactate Liter Flow 2.0 Crit Value Called To Crit Value Called By Crit Value Read Back Blood Gas Notified Time Potassium Carbon Dioxide Anion Gap BUN Creatinine Est GFR ( Amer) Est GFR (Non-Af Amer) POC Glucose (mg/dL) Random Glucose Calcium Phosphorus Magnesium Total Bilirubin AST ALT Alkaline Phosphatase Total Protein Albumin Globulin Albumin/Globulin Ratio Procalcitonin 0.07 L Venous Blood Potassium Urine Color Yellow Urine Clarity Clear Urine pH 5.0 Ur Specific [place] 1.026 Urine Protein Negative Urine Glucose (UA) 3+ H Urine Ketones Trace Urine Blood Negative Urine Nitrate Negative Urine Bilirubin Negative Urine Urobilinogen Normal Ur Leukocyte Esterase Neg Urine WBC (Auto) 1 04/04/18 04/04/18 04/04/18 00:37 01:09 02:04 WBC RBC Hgb Hct MCV MCH MCHC RDW Plt Count MPV Neut % (Auto) Lymph % (Auto) [place] % (Auto) Eos % (Auto) Baso % (Auto) Neut # (Auto) Lymph # (Auto) [place] # (Auto) Eos # (Auto) Baso # (Auto) Puncture Site pCO2 pO2 25 L HCO3 ABG pH ABG Total CO2 ABG O2 Saturation ABG Base Excess ABG Hemoglobin ABG Carboxyhemoglobin POC ABG HHb (Measured) ABG Methemoglobin Eyal Test VBG pH 7.32 VBG pCO2 58 VBG HCO3 25.2 VBG Total CO2 31.7 H VBG O2 Sat (Calc) 42.2 VBG Base Excess 2.4 H VBG Potassium 4.6 Hgb O2 Saturation Sodium 150.0 H Chloride 110.0 H Glucose 740 H* D Lactate 2.7 H Liter Flow Crit Value Called To Linda nevarez picker/puller Crit Value Called By Paulina worley rt Crit Value Read Back Y Blood Gas Notified Time 46 Potassium Carbon Dioxide Anion Gap BUN Creatinine Est GFR ( Amer) Est GFR (Non-Af Amer) POC Glucose (mg/dL) > 500 H* > 500 H* Random Glucose Calcium Phosphorus Magnesium Total Bilirubin AST ALT Alkaline Phosphatase Total Protein Albumin Globulin Albumin/Globulin Ratio Procalcitonin Venous Blood Potassium 4.6 Urine Color Urine Clarity Urine pH Ur Specific [place] Urine Protein Urine Glucose (UA) Urine Ketones Urine Blood Urine Nitrate Urine Bilirubin Urine Urobilinogen Ur Leukocyte Esterase Urine WBC (Auto) 04/04/18 04/04/18 04/04/18 03:19 04:08 05:09 WBC RBC Hgb Hct MCV MCH MCHC RDW Plt Count MPV Neut % (Auto) Lymph % (Auto) [place] % (Auto) Eos % (Auto) Baso % (Auto) Neut # (Auto) Lymph # (Auto) [place] # (Auto) Eos # (Auto) Baso # (Auto) Puncture Site pCO2 pO2 HCO3 ABG pH ABG Total CO2 ABG O2 Saturation ABG Base Excess ABG Hemoglobin ABG Carboxyhemoglobin POC ABG HHb (Measured) ABG Methemoglobin Eyal Test VBG pH VBG pCO2 VBG HCO3 VBG Total CO2 VBG O2 Sat (Calc) VBG Base Excess VBG Potassium Hgb O2 Saturation Sodium Chloride Glucose Lactate Liter Flow Crit Value Called To Crit Value Called By Crit Value Read Back Blood Gas Notified Time Potassium Carbon Dioxide Anion Gap BUN Creatinine Est GFR ( Amer) Est GFR (Non-Af Amer) POC Glucose (mg/dL) > 500 H* > 500 H* > 500 H* Random Glucose Calcium Phosphorus Magnesium Total Bilirubin AST ALT Alkaline Phosphatase Total Protein Albumin Globulin Albumin/Globulin Ratio Procalcitonin Venous Blood Potassium Urine Color Urine Clarity Urine pH Ur Specific [place] Urine Protein Urine Glucose (UA) Urine Ketones Urine Blood Urine Nitrate Urine Bilirubin Urine Urobilinogen Ur Leukocyte Esterase Urine WBC (Auto) 04/04/18 04/04/18 04/04/18 05:37 05:37 06:20 WBC 9.1 RBC 3.67 L Hgb 10.2 L Hct 32.1 L MCV 87.6 D MCH 27.9 MCHC 31.9 L RDW 18.7 H Plt Count 213 MPV 10.1 Neut % (Auto) 78.8 H Lymph % (Auto) 16.1 L [place] % (Auto) 4.5 Eos % (Auto) 0.0 Baso % (Auto) 0.6 Neut # (Auto) 7.2 H Lymph # (Auto) 1.5 [place] # (Auto) 0.4 Eos # (Auto) 0.0 Baso # (Auto) 0.1 Puncture Site pCO2 pO2 HCO3 ABG pH ABG Total CO2 ABG O2 Saturation ABG Base Excess ABG Hemoglobin ABG Carboxyhemoglobin POC ABG HHb (Measured) ABG Methemoglobin Eyal Test VBG pH VBG pCO2 VBG HCO3 VBG Total CO2 VBG O2 Sat (Calc) VBG Base Excess VBG Potassium Hgb O2 Saturation Sodium 157 H Chloride 116 H Glucose Lactate Liter Flow Crit Value Called To Crit Value Called By Crit Value Read Back Blood Gas Notified Time Potassium 3.6 Carbon Dioxide 24 Anion Gap 21 H BUN 59 H Creatinine 1.1 Est GFR ( Amer) > 60 Est GFR (Non-Af Amer) > 60 POC Glucose (mg/dL) 483 H* Random Glucose 467 H* D Calcium 11.4 H Phosphorus 2.0 L Magnesium 1.5 L Total Bilirubin 0.3 AST 15 L D ALT 6 L D Alkaline Phosphatase 103 Total Protein 6.2 L Albumin 3.2 L Globulin 3.0 Albumin/Globulin Ratio 1.0 Procalcitonin Venous Blood Potassium Urine Color Urine Clarity Urine pH Ur Specific [place] Urine Protein Urine Glucose (UA) Urine Ketones Urine Blood Urine Nitrate Urine Bilirubin Urine Urobilinogen Ur Leukocyte Esterase Urine WBC (Auto) 04/04/18 04/04/18 04/04/18 07:19 08:06 09:06 WBC RBC Hgb Hct MCV MCH MCHC RDW Plt Count MPV Neut % (Auto) Lymph % (Auto) [place] % (Auto) Eos % (Auto) Baso % (Auto) Neut # (Auto) Lymph # (Auto) [place] # (Auto) Eos # (Auto) Baso # (Auto) Puncture Site pCO2 pO2 HCO3 ABG pH ABG Total CO2 ABG O2 Saturation ABG Base Excess ABG Hemoglobin ABG Carboxyhemoglobin POC ABG HHb (Measured) ABG Methemoglobin Eyal Test VBG pH VBG pCO2 VBG HCO3 VBG Total CO2 VBG O2 Sat (Calc) VBG Base Excess VBG Potassium Hgb O2 Saturation Sodium Chloride Glucose Lactate Liter Flow Crit Value Called To Crit Value Called By Crit Value Read Back Blood Gas Notified Time Potassium Carbon Dioxide Anion Gap BUN Creatinine Est GFR ( Amer) Est GFR (Non-Af Amer) POC Glucose (mg/dL) 311 H 254 H 178 H Random Glucose Calcium Phosphorus Magnesium Total Bilirubin AST ALT Alkaline Phosphatase Total Protein Albumin Globulin Albumin/Globulin Ratio Procalcitonin Venous Blood Potassium Urine Color Urine Clarity Urine pH Ur Specific [place] Urine Protein Urine Glucose (UA) Urine Ketones Urine Blood Urine Nitrate Urine Bilirubin Urine Urobilinogen Ur Leukocyte Esterase Urine WBC (Auto) 04/04/18 04/04/18 04/04/18 10:14 12:10 14:05 WBC RBC Hgb Hct MCV MCH MCHC RDW Plt Count MPV Neut % (Auto) Lymph % (Auto) [place] % (Auto) Eos % (Auto) Baso % (Auto) Neut # (Auto) Lymph # (Auto) [place] # (Auto) Eos # (Auto) Baso # (Auto) Puncture Site pCO2 pO2 HCO3 ABG pH ABG Total CO2 ABG O2 Saturation ABG Base Excess ABG Hemoglobin ABG Carboxyhemoglobin POC ABG HHb (Measured) ABG Methemoglobin Eyal Test VBG pH VBG pCO2 VBG HCO3 VBG Total CO2 VBG O2 Sat (Calc) VBG Base Excess VBG Potassium Hgb O2 Saturation Sodium Chloride Glucose Lactate Liter Flow Crit Value Called To Crit Value Called By Crit Value Read Back Blood Gas Notified Time Potassium Carbon Dioxide Anion Gap BUN Creatinine Est GFR ( Amer) Est GFR (Non-Af Amer) POC Glucose (mg/dL) 159 H 177 H 157 H Random Glucose Calcium Phosphorus Magnesium Total Bilirubin AST ALT Alkaline Phosphatase Total Protein Albumin Globulin Albumin/Globulin Ratio Procalcitonin Venous Blood Potassium Urine Color Urine Clarity Urine pH Ur Specific [place] Urine Protein Urine Glucose (UA) Urine Ketones Urine Blood Urine Nitrate Urine Bilirubin Urine Urobilinogen Ur Leukocyte Esterase Urine WBC (Auto) Assessment & Plan (1) Hyperosmolar non-ketotic state in patient with type 2 diabetes mellitus Status: Acute (2) Elevated BUN Status: Acute (3) Hyperglycemia Status: Acute (4) Lethargy Status: Acute (5) CAD (coronary artery disease) Status: Acute (6) Hypotension (arterial) Status: Acute
[2018-04-05] MEDS: Sodium Chloride 0.9% 1,000 ML IV SCH ×3 (03:00→10:07)
[2018-04-05] MEDS: (Novolin R) Insulin Human Regular 100 units/ml vial SC SCH ×4 (06:41→18:19)
[2018-04-05 06:44] LABS: BASO % 0.4 % (0.0-2.0); EOS # 0.1 K/uL (0.0-0.7); EOS % 0.9 % (0.0-4.0); HEMOGLOBIN 8.8 g/dL (12.0-18.0); LYMPH # 2.4 K/uL (1.0-4.3); LYMPH % 25.6 % (20.0-40.0); MEAN CELL VOLUME 86.8 fL (80.0-94.0); MEAN CORPUSCULAR HEMOGLOBIN 27.4 pg (27.0-31.0); MEAN CORPUSCULAR HGB CONC 31.5 g/dL (33.0-37.0); MEAN PLATELET VOLUME 9.5 fL (7.2-11.7); MONO # 0.5 K/uL (0.0-0.8); MONO % 4.9 % (0.0-10.0); NEUT # 6.3 K/uL (1.8-7.0); NEUT % 68.2 % (50.0-75.0); NRBC % 0.1 % (0.0-2.0); RBC 3.21 Mil/uL (4.40-5.90); RED CELL DISTRIBUTION WIDTH 18.4 % (11.5-14.5); WHITE BLOOD COUNT 9.3 K/uL (4.8-10.8)
[2018-04-05 07:24] LABS: ALB/GLOB RATIO 0.9 (1.0-2.1); ALBUMIN 2.6 g/dL (3.5-5.0); ALT/SGPT 16 U/L (21-72); AST/SGOT 18 U/L (17-59); BLOOD UREA NITROGEN 39 mg/dL (9-20); CALCIUM 10.8 mg/dl (8.6-10.4); GFR AFRICAN-AMERICAN > 60; GFR NON-AFRICAN AMERICAN > 60
[2018-04-05] MEDS: Acetaminophen 650mg/20.3ml solution UD PO PRN ×3 (13:26→22:30)
--- NOTE | 2018-04-05 14:55 | CP.CCUPN ---
<Macey Ramos - Last Filed: 04/05/18 15:49> CCU Subjective - Physician Review Subjective (Free Text): 0 77 yo M w/ PMHx of DM2, HTN, HLD, CAD, CA, GERD, perforated peptic ulcer(s/p ex- lap w/ rachelle patch 12/22/17), dehydration(requiring admission 02/21) admitted to ICU w/ AMS, HHNS, dehydration. ISS. NGT w/ feeds as tolerated w/ free water. 04/05/18 15:35 CCU Objective - Vital Signs / Intake & Output Vital Signs (Last 4 hours): Vital Signs Temp Pulse Resp BP Pulse Ox 04/05/18 14:07 104 H 13 115/76 100 04/05/18 14:00 104 H 11 L 100 04/05/18 13:08 106/66 04/05/18 13:00 91 H 16 100 04/05/18 12:07 99 H 18 103/61 100 04/05/18 12:00 98.7 F 104 H 21 100 04/05/18 11:07 96 H 16 106/62 04/05/18 11:00 98 H 13 100 Intake and Output (Last 8hrs): Intake & Output 04/04/18 04/05/18 04/05/18 22:59 06:59 14:59 Intake Total 940 1160 1645 Output Total 100 600 Balance 863 919 8107 Weight 111 lb Intake: Intake, IV Amount 850 800 675 Left Antecubital 850 800 675 Tube Feeding 90 120 190 Other 240 780 Output: Urine 100 600 Condom 100 600 Other: # Bowel Movements 0 - Physical Exam Head: Positive for: Atraumatic, Normocephalic Extroacular Muscles: Positive for: EOMI Mouth: Positive for: Dry Respiratory/Chest: Positive for: Clear to Auscultation Cardiovascular: Positive for: Regular Rate and Rhythm Abdomen: Negative for: Tenderness, Distention Upper Extremity: Positive for: Normal Inspection Lower Extremity: Positive for: Normal Inspection Psychiatric: Positive for: Lethargic - Medications Active Medications: Active Medications Generic Name Dose Route Start Last Admin Trade Name Freq PRN Reason Stop Dose Admin Acetaminophen 650 mg 04/05/18 13:15 04/05/18 13:26 Tylenol 650mg/20.3ml Solution Ud PO 650 mg Q4H PRN Administration Pain, moderate (4-7) Ascorbic Acid 500 mg 04/05/18 10:00 04/05/18 10:07 Vitamin C 500 Mg Tab PO 500 mg DAILY KAROLINE Administration Dextrose 0 ml 04/04/18 01:13 Dextrose 50% Inj IV STAT PRN Hypoglycemia Protocol Protocol Dextrose 0 gm 04/04/18 01:13 Glutose 15 PO ONCE PRN Hypoglycemia Protocol Protocol Glucagon 0 mg 04/04/18 01:13 Glucagen Diagnostic Kit IM STAT PRN Hypoglycemia Protocol Protocol Heparin Sodium (Porcine) 5,000 units 04/04/18 01:30 04/05/18 13:17 Heparin SC 5,000 units Q12H KAROLINE Administration Dextrose 1,000 mls @ 0 mls/hr 04/04/18 01:13 Dextrose 5% In Water 1000 Ml IV .Q0M PRN Hypoglycemia Protocol Protocol Per Protocol Sodium Chloride 1,000 mls @ 75 mls/hr 04/05/18 09:53 04/05/18 10:07 Sodium Chloride 0.9% IV 75 mls/hr .[id number] KAROLINE Administration Insulin Human Regular 0 unit 04/04/18 18:00 04/05/18 11:51 Novolin R SC 4 units Q6 KAROLINE Administration Protocol Midodrine 2.5 mg 04/05/18 10:00 04/05/18 11:51 Proamatine PO 2.5 mg TID KAROLINE Administration Pantoprazole Sodium 40 mg 04/04/18 10:00 04/05/18 10:06 Protonix Inj IVP 40 mg DAILY KAROLINE Administration Zinc Sulfate 220 mg 04/05/18 10:00 04/05/18 10:07 Zinc Sulfate 220 Mg Cap PO 220 mg DAILY KAROLINE Administration - Patient Studies Lab Studies: Microbiology Studies 04/04/18 00:23 Urine Culture - Final Urine,Catheterized No Growth (<1,000 CFU/ML) 04/04/18 05:37 MRSA Culture (Admit) - Final Nose MRSA NOT DETECTED 04/04/18 06:41 Blood Culture - Preliminary Blood NO GROWTH AFTER 24 HOURS 04/04/18 06:38 Blood Culture - Preliminary Blood NO GROWTH AFTER 24 HOURS Lab Studies 04/05/18 04/05/18 04/05/18 Range/Units 11:46 10:56 06:36 WBC (4.8-10.8) K/uL RBC (4.40-5.90) Mil/uL Hgb (12.0-18.0) g/dL Hct (35.0-51.0) % MCV (80.0-94.0) fL MCH (27.0-31.0) pg MCHC (33.0-37.0) g/dL RDW (11.5-14.5) % Plt Count (130-400) K/uL MPV (7.2-11.7) fL Neut % (Auto) (50.0-75.0) % Lymph % (Auto) (20.0-40.0) % [place] % (Auto) (0.0-10.0) % Eos % (Auto) (0.0-4.0) % Baso % (Auto) (0.0-2.0) % Neut # (Auto) (1.8-7.0) K/uL Lymph # (Auto) (1.0-4.3) K/uL [place] # (Auto) (0.0-0.8) K/uL Eos # (Auto) (0.0-0.7) K/uL Baso # (Auto) (0.0-0.2) K/uL Sodium 160 H* (132-148) mmol/L Potassium 4.5 (3.6-5.2) mmol/L Chloride 125 H (98-107) mmol/L Carbon Dioxide 21 L (22-30) mmol/L Anion Gap 18 (10-20) BUN 39 H (9-20) mg/dL Creatinine 1.1 (0.8-1.5) mg/dL Est GFR ( Amer) > 60 Est GFR (Non-Af Amer) > 60 POC Glucose (mg/dL) 277 H (65-110) mg/dL Random Glucose 311 H (75-110) mg/dL Calcium 10.8 H (8.6-10.4) mg/dl Phosphorus 3.0 (2.5-4.5) mg/dL Magnesium 1.6 (1.6-2.3) mg/dL Total Bilirubin 0.3 (0.2-1.3) mg/dL AST 18 (17-59) U/L ALT 16 L D (21-72) U/L Alkaline Phosphatase 73 (38-126) U/L Total Protein 5.5 L (6.3-8.3) g/dL Albumin 2.6 L (3.5-5.0) g/dL Globulin 2.9 (2.2-3.9) gm/dL Albumin/Globulin Ratio 0.9 L (1.0-2.1) B-Hydroxybutyrate 0.69 H (0.02-0.27) mM 04/05/18 04/05/18 04/04/18 Range/Units 06:36 06:34 23:53 WBC 9.3 (4.8-10.8) K/uL RBC 3.21 L (4.40-5.90) Mil/uL Hgb 8.8 L (12.0-18.0) g/dL Hct 27.9 L (35.0-51.0) % MCV 86.8 (80.0-94.0) fL MCH 27.4 (27.0-31.0) pg MCHC 31.5 L (33.0-37.0) g/dL RDW 18.4 H (11.5-14.5) % Plt Count 199 (130-400) K/uL MPV 9.5 (7.2-11.7) fL Neut % (Auto) 68.2 (50.0-75.0) % Lymph % (Auto) 25.6 (20.0-40.0) % [place] % (Auto) 4.9 (0.0-10.0) % Eos % (Auto) 0.9 (0.0-4.0) % Baso % (Auto) 0.4 (0.0-2.0) % Neut # (Auto) 6.3 (1.8-7.0) K/uL Lymph # (Auto) 2.4 (1.0-4.3) K/uL [place] # (Auto) 0.5 (0.0-0.8) K/uL Eos # (Auto) 0.1 (0.0-0.7) K/uL Baso # (Auto) 0.0 (0.0-0.2) K/uL Sodium (132-148) mmol/L Potassium (3.6-5.2) mmol/L Chloride (98-107) mmol/L Carbon Dioxide (22-30) mmol/L Anion Gap (10-20) BUN (9-20) mg/dL Creatinine (0.8-1.5) mg/dL Est GFR ( Amer) Est GFR (Non-Af Amer) POC Glucose (mg/dL) 327 H 197 H (65-110) mg/dL Random Glucose (75-110) mg/dL Calcium (8.6-10.4) mg/dl Phosphorus (2.5-4.5) mg/dL Magnesium (1.6-2.3) mg/dL Total Bilirubin (0.2-1.3) mg/dL AST (17-59) U/L ALT (21-72) U/L Alkaline Phosphatase (38-126) U/L Total Protein (6.3-8.3) g/dL Albumin (3.5-5.0) g/dL Globulin (2.2-3.9) gm/dL Albumin/Globulin Ratio (1.0-2.1) B-Hydroxybutyrate (0.02-0.27) mM 07/25/18 Range/Units 17:45 WBC (4.8-10.8) K/uL RBC (4.40-5.90) Mil/uL Hgb (12.0-18.0) g/dL Hct (35.0-51.0) % MCV (80.0-94.0) fL MCH (27.0-31.0) pg MCHC (33.0-37.0) g/dL RDW (11.5-14.5) % Plt Count (130-400) K/uL MPV (7.2-11.7) fL Neut % (Auto) (50.0-75.0) % Lymph % (Auto) (20.0-40.0) % [place] % (Auto) (0.0-10.0) % Eos % (Auto) (0.0-4.0) % Baso % (Auto) (0.0-2.0) % Neut # (Auto) (1.8-7.0) K/uL Lymph # (Auto) (1.0-4.3) K/uL [place] # (Auto) (0.0-0.8) K/uL Eos # (Auto) (0.0-0.7) K/uL Baso # (Auto) (0.0-0.2) K/uL Sodium (132-148) mmol/L Potassium (3.6-5.2) mmol/L Chloride (98-107) mmol/L Carbon Dioxide (22-30) mmol/L Anion Gap (10-20) BUN (9-20) mg/dL Creatinine (0.8-1.5) mg/dL Est GFR ( Amer) Est GFR (Non-Af Amer) POC Glucose (mg/dL) 162 H (65-110) mg/dL Random Glucose (75-110) mg/dL Calcium (8.6-10.4) mg/dl Phosphorus (2.5-4.5) mg/dL Magnesium (1.6-2.3) mg/dL Total Bilirubin (0.2-1.3) mg/dL AST (17-59) U/L ALT (21-72) U/L Alkaline Phosphatase (38-126) U/L Total Protein (6.3-8.3) g/dL Albumin (3.5-5.0) g/dL Globulin (2.2-3.9) gm/dL Albumin/Globulin Ratio (1.0-2.1) B-Hydroxybutyrate (0.02-0.27) mM Laboratory Results - last 24 hr 04/04/18 04/04/18 04/05/18 17:45 23:53 06:34 WBC RBC Hgb Hct MCV MCH MCHC RDW Plt Count MPV Neut % (Auto) Lymph % (Auto) [place] % (Auto) Eos % (Auto) Baso % (Auto) Neut # (Auto) Lymph # (Auto) [place] # (Auto) Eos # (Auto) Baso # (Auto) Sodium Potassium Chloride Carbon Dioxide Anion Gap BUN Creatinine Est GFR ( Amer) Est GFR (Non-Af Amer) POC Glucose (mg/dL) 162 H 197 H 327 H Random Glucose Calcium Phosphorus Magnesium Total Bilirubin AST ALT Alkaline Phosphatase Total Protein Albumin Globulin Albumin/Globulin Ratio B-Hydroxybutyrate 04/05/18 04/05/18 04/05/18 06:36 06:36 10:56 WBC 9.3 RBC 3.21 L Hgb 8.8 L Hct 27.9 L MCV 86.8 MCH 27.4 MCHC 31.5 L RDW 18.4 H Plt Count 199 MPV 9.5 Neut % (Auto) 68.2 Lymph % (Auto) 25.6 [place] % (Auto) 4.9 Eos % (Auto) 0.9 Baso % (Auto) 0.4 Neut # (Auto) 6.3 Lymph # (Auto) 2.4 [place] # (Auto) 0.5 Eos # (Auto) 0.1 Baso # (Auto) 0.0 Sodium 160 H* Potassium 4.5 Chloride 125 H Carbon Dioxide 21 L Anion Gap 18 BUN 39 H Creatinine 1.1 Est GFR ( Amer) > 60 Est GFR (Non-Af Amer) > 60 POC Glucose (mg/dL) Random Glucose 311 H Calcium 10.8 H Phosphorus 3.0 Magnesium 1.6 Total Bilirubin 0.3 AST 18 ALT 16 L D Alkaline Phosphatase 73 Total Protein 5.5 L Albumin 2.6 L Globulin 2.9 Albumin/Globulin Ratio 0.9 L B-Hydroxybutyrate 0.69 H 04/05/18 11:46 WBC RBC Hgb Hct MCV MCH MCHC RDW Plt Count MPV Neut % (Auto) Lymph % (Auto) [place] % (Auto) Eos % (Auto) Baso % (Auto) Neut # (Auto) Lymph # (Auto) [place] # (Auto) Eos # (Auto) Baso # (Auto) Sodium Potassium Chloride Carbon Dioxide Anion Gap BUN Creatinine Est GFR ( Amer) Est GFR (Non-Af Amer) POC Glucose (mg/dL) 277 H Random Glucose Calcium Phosphorus Magnesium Total Bilirubin AST ALT Alkaline Phosphatase Total Protein Albumin Globulin Albumin/Globulin Ratio B-Hydroxybutyrate Fingerstick Blood Sugar Results: 277 Assessment/Plan - Assessment and Plan (Free Text) Assessment: 77 yo M admitted w/ AMS, dehydration, HHNS Neuro: AMS, improving -head CT neg for any acute pathology -f/u left sinusitis Pulm: -NC GI: Nutrition -glucerna tube feeds via NGT @55 -free water 300ml q4 NGT Renal: Hypernatremia 2/2 Dehydration/shock -NS @75 -free water 300 q4 -UOP goal >25/hr Endo: HHNS-stable, off insulin drip DM2 -ISS q6 -Lantus 10U Ppx: -heparin 5000 bid -protonix 40 -SCD Dispo: -pt sister refusing hospice -free water deficit of 3.6L -free water 300ml <[place],Schneider M - Last Filed: 04/07/18 09:31> CCU Objective - Vital Signs / Intake & Output Vital Signs (Last 4 hours): Vital Signs Pulse Resp BP Pulse Ox 04/07/18 06:01 81 15 137/74 100 Intake and Output (Last 8hrs): Intake & Output 04/06/18 04/07/18 04/07/18 22:59 06:59 14:59 Intake Total 1302.5 1340 Output Total 800 800 Balance 502.5 540 Weight 127 lb 3.2 oz Intake: Intake, IV Amount 567.5 600 Left Antecubital 567.5 600 Tube Feeding 435 440 Other 300 300 Output: Urine 800 800 Condom 800 800 - Medications Active Medications: Active Medications Generic Name Dose Route Start Last Admin Trade Name Freq PRN Reason Stop Dose Admin Acetaminophen 650 mg 04/05/18 13:15 04/06/18 17:24 Tylenol 650mg/20.3ml Solution Ud PO 650 mg Q4H PRN Administration Pain, moderate (4-7) Ascorbic Acid 500 mg 04/05/18 10:00 04/06/18 09:04 Vitamin C 500 Mg Tab PO 500 mg DAILY KAROLINE Administration Dextrose 0 ml 04/04/18 01:13 Dextrose 50% Inj IV STAT PRN Hypoglycemia Protocol Protocol Dextrose 0 gm 04/04/18 01:13 Glutose 15 PO ONCE PRN Hypoglycemia Protocol Protocol Escitalopram Oxalate 5 mg 04/06/18 23:50 04/07/18 01:37 Lexapro PO 5 mg DAILY KAROLINE Administration Glucagon 0 mg 04/04/18 01:13 Glucagen Diagnostic Kit IM STAT PRN Hypoglycemia Protocol Protocol Heparin Sodium (Porcine) 5,000 units 04/04/18 01:30 04/07/18 01:36 Heparin SC 5,000 units Q12H KAROLINE Administration Insulin Glargine 10 unit 04/05/18 22:00 04/06/18 21:01 Lantus SC 10 u HS KAROLINE Administration Insulin Human Regular 0 unit 04/04/18 18:00 04/07/18 06:47 Novolin R SC Not Given Q6 KAROLINE Protocol Midodrine 2.5 mg 04/05/18 10:00 04/06/18 17:24 Proamatine PO 2.5 mg TID KAROLINE Administration Pantoprazole Sodium 40 mg 04/04/18 10:00 04/06/18 09:04 Protonix Inj IVP 40 mg DAILY KAROLINE Administration Sucralfate 1 gm 04/06/18 18:00 04/06/18 21:00 Carafate Oral Susp PO 1 gm QID KAROLINE Administration Zinc Sulfate 220 mg 04/05/18 10:00 04/06/18 09:04 Zinc Sulfate 220 Mg Cap PO 220 mg DAILY KAROLINE Administration - Patient Studies Lab Studies: Microbiology Studies 04/04/18 06:41 Blood Culture - Preliminary Blood NO GROWTH AFTER 3 DAYS 04/04/18 06:38 Blood Culture - Preliminary Blood NO GROWTH AFTER 3 DAYS Lab Studies 04/07/18 04/07/18 04/07/18 Range/Units 06:14 06:14 05:49 WBC 9.5 (4.8-10.8) K/uL RBC 3.32 L (4.40-5.90) Mil/uL Hgb 9.2 L (12.0-18.0) g/dL Hct 28.7 L (35.0-51.0) % MCV 86.5 (80.0-94.0) fL MCH 27.8 (27.0-31.0) pg MCHC 32.1 L (33.0-37.0) g/dL RDW 18.5 H (11.5-14.5) % Plt Count 169 (130-400) K/uL MPV 10.4 (7.2-11.7) fL Neut % (Auto) 63.6 (50.0-75.0) % Lymph % (Auto) 25.0 (20.0-40.0) % [place] % (Auto) 3.5 (0.0-10.0) % Eos % (Auto) 7.1 H (0.0-4.0) % Baso % (Auto) 0.8 (0.0-2.0) % Neut # (Auto) 6.0 (1.8-7.0) K/uL Lymph # (Auto) 2.4 (1.0-4.3) K/uL [place] # (Auto) 0.3 (0.0-0.8) K/uL Eos # (Auto) 0.7 (0.0-0.7) K/uL Baso # (Auto) 0.1 (0.0-0.2) K/uL Sodium 146 (132-148) mmol/L Potassium 4.2 (3.6-5.2) mmol/L Chloride 113 H (98-107) mmol/L Carbon Dioxide 23 (22-30) mmol/L Anion Gap 14 (10-20) BUN 29 H (9-20) mg/dL Creatinine 0.8 (0.8-1.5) mg/dL Est GFR ( Amer) > 60 Est GFR (Non-Af Amer) > 60 POC Glucose (mg/dL) 130 H (65-110) mg/dL Random Glucose 143 H (75-110) mg/dL Calcium 9.9 (8.6-10.4) mg/dl Phosphorus 2.5 (2.5-4.5) mg/dL Magnesium 1.6 (1.6-2.3) mg/dL Total Bilirubin 0.1 L (0.2-1.3) mg/dL AST 19 (17-59) U/L ALT 23 (21-72) U/L Alkaline Phosphatase 95 (38-126) U/L Total Protein 5.3 L (6.3-8.3) g/dL Albumin 2.5 L (3.5-5.0) g/dL Globulin 2.8 (2.2-3.9) gm/dL Albumin/Globulin Ratio 0.9 L (1.0-2.1) 04/06/18 04/06/18 04/06/18 Range/Units 23:53 17:30 12:22 WBC (4.8-10.8) K/uL RBC (4.40-5.90) Mil/uL Hgb (12.0-18.0) g/dL Hct (35.0-51.0) % MCV (80.0-94.0) fL MCH (27.0-31.0) pg MCHC (33.0-37.0) g/dL RDW (11.5-14.5) % Plt Count (130-400) K/uL MPV (7.2-11.7) fL Neut % (Auto) (50.0-75.0) % Lymph % (Auto) (20.0-40.0) % [place] % (Auto) (0.0-10.0) % Eos % (Auto) (0.0-4.0) % Baso % (Auto) (0.0-2.0) % Neut # (Auto) (1.8-7.0) K/uL Lymph # (Auto) (1.0-4.3) K/uL [place] # (Auto) (0.0-0.8) K/uL Eos # (Auto) (0.0-0.7) K/uL Baso # (Auto) (0.0-0.2) K/uL Sodium (132-148) mmol/L Potassium (3.6-5.2) mmol/L Chloride (98-107) mmol/L Carbon Dioxide (22-30) mmol/L Anion Gap (10-20) BUN (9-20) mg/dL Creatinine (0.8-1.5) mg/dL Est GFR ( Amer) Est GFR (Non-Af Amer) POC Glucose (mg/dL) 154 H 176 H 148 H (65-110) mg/dL Random Glucose (75-110) mg/dL Calcium (8.6-10.4) mg/dl Phosphorus (2.5-4.5) mg/dL Magnesium (1.6-2.3) mg/dL Total Bilirubin (0.2-1.3) mg/dL AST (17-59) U/L ALT (21-72) U/L Alkaline Phosphatase (38-126) U/L Total Protein (6.3-8.3) g/dL Albumin (3.5-5.0) g/dL Globulin (2.2-3.9) gm/dL Albumin/Globulin Ratio (1.0-2.1) Laboratory Results - last 24 hr 04/06/18 04/06/18 04/06/18 12:22 17:30 23:53 WBC RBC Hgb Hct MCV MCH MCHC RDW Plt Count MPV Neut % (Auto) Lymph % (Auto) [place] % (Auto) Eos % (Auto) Baso % (Auto) Neut # (Auto) Lymph # (Auto) [place] # (Auto) Eos # (Auto) Baso # (Auto) Sodium Potassium Chloride Carbon Dioxide Anion Gap BUN Creatinine Est GFR ( Amer) Est GFR (Non-Af Amer) POC Glucose (mg/dL) 148 H 176 H 154 H Random Glucose Calcium Phosphorus Magnesium Total Bilirubin AST ALT Alkaline Phosphatase Total Protein Albumin Globulin Albumin/Globulin Ratio 04/07/18 04/07/18 04/07/18 05:49 06:14 06:14 WBC 9.5 RBC 3.32 L Hgb 9.2 L Hct 28.7 L MCV 86.5 MCH 27.8 MCHC 32.1 L RDW 18.5 H Plt Count 169 MPV 10.4 Neut % (Auto) 63.6 Lymph % (Auto) 25.0 [place] % (Auto) 3.5 Eos % (Auto) 7.1 H Baso % (Auto) 0.8 Neut # (Auto) 6.0 Lymph # (Auto) 2.4 [place] # (Auto) 0.3 Eos # (Auto) 0.7 Baso # (Auto) 0.1 Sodium 146 Potassium 4.2 Chloride 113 H Carbon Dioxide 23 Anion Gap 14 BUN 29 H Creatinine 0.8 Est GFR ( Amer) > 60 Est GFR (Non-Af Amer) > 60 POC Glucose (mg/dL) 130 H Random Glucose 143 H Calcium 9.9 Phosphorus 2.5 Magnesium 1.6 Total Bilirubin 0.1 L AST 19 ALT 23 Alkaline Phosphatase 95 Total Protein 5.3 L Albumin 2.5 L Globulin 2.8 Albumin/Globulin Ratio 0.9 L Assessment/Plan - Assessment and Plan (Free Text) Assessment: Above patient was seen and examined at bedside. Patient is not responsive 2nd dehydration. above resident documents my clinical findings and management - Date & Time Date: 04/05/18 Time: 09:31
[2018-04-05] MEDS: (Lantus) Insulin Glargine, Recombinant SC SCH (21:15)
--- NOTE | 2018-04-05 23:46 | CP.PCM.PN ---
Subjective - Date & Time of Evaluation Date of Evaluation: 04/05/18 Time of Evaluation: 19:00 - Subjective Subjective: pt seen and examined at bedsise, looks chronically sick, weak, is hypernatremic , Objective - Vital Signs/Intake and Output Vital Signs (last 24 hours): Temp Pulse Resp BP Pulse Ox 98.3 F 80 14 104/54 L 100 04/05/18 20:00 04/05/18 22:01 04/05/18 22:01 04/05/18 22:01 04/05/18 22:01 Intake and Output: 04/05/18 04/06/18 18:59 06:59 Intake Total 2165 760 Balance 2165 760 - Medications Medications: Current Medications Acetaminophen (Tylenol 650mg/20.3ml Solution Ud) 650 mg PO Q4H PRN PRN Reason: Pain, moderate (4-7) Last Admin: 04/05/18 22:30 Dose: 650 mg Ascorbic Acid (Vitamin C 500 Mg Tab) 500 mg PO DAILY [facility] Last Admin: 04/05/18 10:07 Dose: 500 mg Dextrose (Dextrose 50% Inj) 0 ml IV STAT PRN; Protocol PRN Reason: Hypoglycemia Protocol Dextrose (Glutose 15) 0 gm PO ONCE PRN; Protocol PRN Reason: Hypoglycemia Protocol Glucagon (Glucagen Diagnostic Kit) 0 mg IM STAT PRN; Protocol PRN Reason: Hypoglycemia Protocol Heparin Sodium (Porcine) (Heparin) 5,000 units SC Q12H [facility] Last Admin: 04/05/18 13:17 Dose: 5,000 units Dextrose (Dextrose 5% In Water 1000 Ml) 1,000 mls @ 0 mls/hr IV .Q0M PRN; Protocol; Per Protocol PRN Reason: Hypoglycemia Protocol Sodium Chloride (Sodium Chloride 0.9%) 1,000 mls @ 75 mls/hr IV .[id number] [facility] Last Admin: 04/05/18 10:07 Dose: 75 mls/hr Insulin Glargine (Lantus) 10 unit SC HS [facility] Last Admin: 04/05/18 21:15 Dose: 10 u Insulin Human Regular (Novolin R) 0 unit SC Q6 KAROLINE PRN Reason: Protocol Last Admin: 04/05/18 18:19 Dose: 6 units Midodrine (Proamatine) 2.5 mg PO TID [facility] Last Admin: 04/05/18 18:20 Dose: 2.5 mg Pantoprazole Sodium (Protonix Inj) 40 mg IVP DAILY KAROLINE Last Admin: 04/05/18 10:06 Dose: 40 mg Zinc Sulfate (Zinc Sulfate 220 Mg Cap) 220 mg PO DAILY KAROLINE Last Admin: 04/05/18 10:07 Dose: 220 mg - Labs Labs: 04/05/18 06:36 04/05/18 06:36 PT 10.6 SECONDS (9.7-12.2) 04/03/18 22:35 INR 1.0 04/03/18 22:35 APTT 24 SECONDS (21-34) 04/03/18 22:35 Assessment and Plan (1) Hyperosmolar non-ketotic state in patient with type 2 diabetes mellitus Status: Acute (2) Elevated BUN Status: Acute (3) Hyperglycemia Status: Acute (4) Lethargy Status: Acute (5) CAD (coronary artery disease) Status: Acute (6) Hypotension (arterial) Status: Acute
[2018-04-06] MEDS: (Novolin R) Insulin Human Regular 100 units/ml vial SC SCH ×4 (00:40→17:33)
[2018-04-06] MEDS: Acetaminophen 650mg/20.3ml solution UD PO PRN ×3 (06:00→17:24)
[2018-04-06 06:30] LABS: BASO # 0.1 K/uL (0.0-0.2); BASO % 0.9 % (0.0-2.0); EOS # 0.3 K/uL (0.0-0.7); EOS % 3.6 % (0.0-4.0); LYMPH # 2.5 K/uL (1.0-4.3); LYMPH % 31.1 % (20.0-40.0); MEAN CELL VOLUME 87.6 fL (80.0-94.0); MEAN CORPUSCULAR HEMOGLOBIN 27.9 pg (27.0-31.0); MEAN CORPUSCULAR HGB CONC 31.8 g/dL (33.0-37.0); MEAN PLATELET VOLUME 9.9 fL (7.2-11.7); MONO # 0.3 K/uL (0.0-0.8); MONO % 4.1 % (0.0-10.0); NEUT # 4.8 K/uL (1.8-7.0); NEUT % 60.3 % (50.0-75.0); NRBC % 0.2 % (0.0-2.0); RBC 3.22 Mil/uL (4.40-5.90); RED CELL DISTRIBUTION WIDTH 18.3 % (11.5-14.5); WHITE BLOOD COUNT 7.9 K/uL (4.8-10.8)
[2018-04-06 06:48] LABS: ALBUMIN 2.8 g/dL (3.5-5.0); ALT/SGPT 15 U/L (21-72); AST/SGOT 19 U/L (17-59); BLOOD UREA NITROGEN 32 mg/dL (9-20); CALCIUM 10.7 mg/dl (8.6-10.4); GFR AFRICAN-AMERICAN > 60; GFR NON-AFRICAN AMERICAN > 60
--- NOTE | 2018-04-06 08:05 | CP.CCUPN ---
<Kanika Ramoseca - Last Filed: 04/06/18 14:57> CCU Subjective - Physician Review Subjective (Free Text): 77 yo M w/ PMHx of DM2, HTN, HLD, CAD, ID, GERD, perforated peptic ulcer(s/p ex- lap w/ rachelle patch 12/22/17), dehydration(requiring admission 02/21) admitted to ICU w/ AMS, HHNS, dehydration. ISS. NGT w/ feeds as tolerated w/ free water. 04/06/18 11:47 CCU Objective - Vital Signs / Intake & Output Vital Signs (Last 4 hours): Vital Signs Pulse Resp BP Pulse Ox 04/06/18 07:01 83 17 119/68 100 04/06/18 07:00 86 14 100 04/06/18 06:01 71 14 116/77 100 04/06/18 05:01 104/65 04/06/18 05:00 81 13 100 Intake and Output (Last 8hrs): Intake & Output 04/05/18 04/06/18 04/06/18 22:59 06:59 14:59 Intake Total 1165 1625 120 Output Total 550 Balance 1165 1075 120 Weight 125 lb 7 oz Intake: Intake, IV Amount 375 600 75 Left Antecubital 375 600 75 Oral 300 700 Tube Feeding 190 325 45 Other 300 Output: Urine 550 Condom 550 Other: # Bowel Movements 1 - Physical Exam Head: Positive for: Atraumatic, Normocephalic Extroacular Muscles: Positive for: EOMI Mouth: Positive for: Dry Respiratory/Chest: Positive for: Clear to Auscultation Cardiovascular: Positive for: Regular Rate and Rhythm Abdomen: Negative for: Tenderness, Distention Upper Extremity: Positive for: Normal Inspection Lower Extremity: Positive for: Normal Inspection Psychiatric: Positive for: Lethargic - Medications Active Medications: Active Medications Generic Name Dose Route Start Last Admin Trade Name Freq PRN Reason Stop Dose Admin Acetaminophen 650 mg 04/05/18 13:15 04/06/18 06:00 Tylenol 650mg/20.3ml Solution Ud PO 650 mg Q4H PRN Administration Pain, moderate (4-7) Ascorbic Acid 500 mg 04/05/18 10:00 04/05/18 10:07 Vitamin C 500 Mg Tab PO 500 mg DAILY KAROLINE Administration Dextrose 0 ml 04/04/18 01:13 Dextrose 50% Inj IV STAT PRN Hypoglycemia Protocol Protocol Dextrose 0 gm 04/04/18 01:13 Glutose 15 PO ONCE PRN Hypoglycemia Protocol Protocol Glucagon 0 mg 04/04/18 01:13 Glucagen Diagnostic Kit IM STAT PRN Hypoglycemia Protocol Protocol Heparin Sodium (Porcine) 5,000 units 04/04/18 01:30 04/06/18 00:40 Heparin SC 5,000 units Q12H KAROLINE Administration Dextrose 1,000 mls @ 0 mls/hr 04/04/18 01:13 Dextrose 5% In Water 1000 Ml IV .Q0M PRN Hypoglycemia Protocol Protocol Per Protocol Sodium Chloride 1,000 mls @ 75 mls/hr 04/05/18 09:53 04/06/18 00:00 Sodium Chloride 0.9% IV 75 mls/hr .[id number] KAROLINE Administration Magnesium Sulfate/Dextrose 1 gm in 100 mls @ 300 mls/hr 04/06/18 08:15 Magnesium Sulfate 1 Gm/100 Ml D5w IVPB 04/06/18 09:04 Q30M KAROLINE Potassium Phosphate 15 mmole/ 255 mls @ 42.5 mls/hr 04/06/18 07:56 Sodium Chloride IVPB 04/06/18 13:55 ONCE ONE Insulin Glargine 10 unit 04/05/18 22:00 04/05/18 21:15 Lantus SC 10 u HS KAROLINE Administration Insulin Human Regular 0 unit 04/04/18 18:00 04/06/18 06:00 Novolin R SC 3 units Q6 KAROLINE Administration Protocol Midodrine 2.5 mg 04/05/18 10:00 04/05/18 18:20 Proamatine PO 2.5 mg TID KAROLINE Administration Pantoprazole Sodium 40 mg 04/04/18 10:00 04/05/18 10:06 Protonix Inj IVP 40 mg DAILY KAROLINE Administration Zinc Sulfate 220 mg 04/05/18 10:00 04/05/18 10:07 Zinc Sulfate 220 Mg Cap PO 220 mg DAILY KAROLINE Administration - Patient Studies Lab Studies: Microbiology Studies 04/04/18 06:41 Blood Culture - Preliminary Blood NO GROWTH AFTER 48 HOURS 04/04/18 06:38 Blood Culture - Preliminary Blood NO GROWTH AFTER 48 HOURS 04/04/18 00:23 Urine Culture - Final Urine,Catheterized No Growth (<1,000 CFU/ML) 04/04/18 05:37 MRSA Culture (Admit) - Final Nose MRSA NOT DETECTED Lab Studies 04/06/18 04/06/18 04/06/18 Range/Units 06:18 06:18 05:47 WBC 7.9 (4.8-10.8) K/uL RBC 3.22 L (4.40-5.90) Mil/uL Hgb 9.0 L (12.0-18.0) g/dL Hct 28.2 L (35.0-51.0) % MCV 87.6 (80.0-94.0) fL MCH 27.9 (27.0-31.0) pg MCHC 31.8 L (33.0-37.0) g/dL RDW 18.3 H (11.5-14.5) % Plt Count 158 (130-400) K/uL MPV 9.9 (7.2-11.7) fL Neut % (Auto) 60.3 (50.0-75.0) % Lymph % (Auto) 31.1 (20.0-40.0) % [place] % (Auto) 4.1 (0.0-10.0) % Eos % (Auto) 3.6 (0.0-4.0) % Baso % (Auto) 0.9 (0.0-2.0) % Neut # (Auto) 4.8 (1.8-7.0) K/uL Lymph # (Auto) 2.5 (1.0-4.3) K/uL [place] # (Auto) 0.3 (0.0-0.8) K/uL Eos # (Auto) 0.3 (0.0-0.7) K/uL Baso # (Auto) 0.1 (0.0-0.2) K/uL Sodium 153 H (132-148) mmol/L Potassium 4.4 (3.6-5.2) mmol/L Chloride 120 H (98-107) mmol/L Carbon Dioxide 22 (22-30) mmol/L Anion Gap 16 (10-20) BUN 32 H (9-20) mg/dL Creatinine 0.9 (0.8-1.5) mg/dL Est GFR ( Amer) > 60 Est GFR (Non-Af Amer) > 60 POC Glucose (mg/dL) 233 H (65-110) mg/dL Random Glucose 205 H (75-110) mg/dL Calcium 10.7 H (8.6-10.4) mg/dl Phosphorus 2.1 L (2.5-4.5) mg/dL Magnesium 1.4 L (1.6-2.3) mg/dL Total Bilirubin 0.1 L (0.2-1.3) mg/dL AST 19 (17-59) U/L ALT 15 L (21-72) U/L Alkaline Phosphatase 96 (38-126) U/L Total Protein 5.6 L (6.3-8.3) g/dL Albumin 2.8 L (3.5-5.0) g/dL Globulin 2.9 (2.2-3.9) gm/dL Albumin/Globulin Ratio 1.0 (1.0-2.1) B-Hydroxybutyrate (0.02-0.27) mM 04/06/18 04/05/18 04/05/18 Range/Units 00:20 17:48 11:46 WBC (4.8-10.8) K/uL RBC (4.40-5.90) Mil/uL Hgb (12.0-18.0) g/dL Hct (35.0-51.0) % MCV (80.0-94.0) fL MCH (27.0-31.0) pg MCHC (33.0-37.0) g/dL RDW (11.5-14.5) % Plt Count (130-400) K/uL MPV (7.2-11.7) fL Neut % (Auto) (50.0-75.0) % Lymph % (Auto) (20.0-40.0) % [place] % (Auto) (0.0-10.0) % Eos % (Auto) (0.0-4.0) % Baso % (Auto) (0.0-2.0) % Neut # (Auto) (1.8-7.0) K/uL Lymph # (Auto) (1.0-4.3) K/uL [place] # (Auto) (0.0-0.8) K/uL Eos # (Auto) (0.0-0.7) K/uL Baso # (Auto) (0.0-0.2) K/uL Sodium (132-148) mmol/L Potassium (3.6-5.2) mmol/L Chloride (98-107) mmol/L Carbon Dioxide (22-30) mmol/L Anion Gap (10-20) BUN (9-20) mg/dL Creatinine (0.8-1.5) mg/dL Est GFR ( Amer) Est GFR (Non-Af Amer) POC Glucose (mg/dL) 320 H 326 H 277 H (65-110) mg/dL Random Glucose (75-110) mg/dL Calcium (8.6-10.4) mg/dl Phosphorus (2.5-4.5) mg/dL Magnesium (1.6-2.3) mg/dL Total Bilirubin (0.2-1.3) mg/dL AST (17-59) U/L ALT (21-72) U/L Alkaline Phosphatase (38-126) U/L Total Protein (6.3-8.3) g/dL Albumin (3.5-5.0) g/dL Globulin (2.2-3.9) gm/dL Albumin/Globulin Ratio (1.0-2.1) B-Hydroxybutyrate (0.02-0.27) mM // Range/Units 10:56 WBC (4.8-10.8) K/uL RBC (4.40-5.90) Mil/uL Hgb (12.0-18.0) g/dL Hct (35.0-51.0) % MCV (80.0-94.0) fL MCH (27.0-31.0) pg MCHC (33.0-37.0) g/dL RDW (11.5-14.5) % Plt Count (130-400) K/uL MPV (7.2-11.7) fL Neut % (Auto) (50.0-75.0) % Lymph % (Auto) (20.0-40.0) % [place] % (Auto) (0.0-10.0) % Eos % (Auto) (0.0-4.0) % Baso % (Auto) (0.0-2.0) % Neut # (Auto) (1.8-7.0) K/uL Lymph # (Auto) (1.0-4.3) K/uL [place] # (Auto) (0.0-0.8) K/uL Eos # (Auto) (0.0-0.7) K/uL Baso # (Auto) (0.0-0.2) K/uL Sodium (132-148) mmol/L Potassium (3.6-5.2) mmol/L Chloride (98-107) mmol/L Carbon Dioxide (22-30) mmol/L Anion Gap (10-20) BUN (9-20) mg/dL Creatinine (0.8-1.5) mg/dL Est GFR ( Amer) Est GFR (Non-Af Amer) POC Glucose (mg/dL) (65-110) mg/dL Random Glucose (75-110) mg/dL Calcium (8.6-10.4) mg/dl Phosphorus (2.5-4.5) mg/dL Magnesium (1.6-2.3) mg/dL Total Bilirubin (0.2-1.3) mg/dL AST (17-59) U/L ALT (21-72) U/L Alkaline Phosphatase (38-126) U/L Total Protein (6.3-8.3) g/dL Albumin (3.5-5.0) g/dL Globulin (2.2-3.9) gm/dL Albumin/Globulin Ratio (1.0-2.1) B-Hydroxybutyrate 0.69 H (0.02-0.27) mM Laboratory Results - last 24 hr 04/05/18 04/05/18 04/05/18 10:56 11:46 17:48 WBC RBC Hgb Hct MCV MCH MCHC RDW Plt Count MPV Neut % (Auto) Lymph % (Auto) [place] % (Auto) Eos % (Auto) Baso % (Auto) Neut # (Auto) Lymph # (Auto) [place] # (Auto) Eos # (Auto) Baso # (Auto) Sodium Potassium Chloride Carbon Dioxide Anion Gap BUN Creatinine Est GFR ( Amer) Est GFR (Non-Af Amer) POC Glucose (mg/dL) 277 H 326 H Random Glucose Calcium Phosphorus Magnesium Total Bilirubin AST ALT Alkaline Phosphatase Total Protein Albumin Globulin Albumin/Globulin Ratio B-Hydroxybutyrate 0.69 H 04/06/18 04/06/18 04/06/18 00:20 05:47 06:18 WBC 7.9 RBC 3.22 L Hgb 9.0 L Hct 28.2 L MCV 87.6 MCH 27.9 MCHC 31.8 L RDW 18.3 H Plt Count 158 MPV 9.9 Neut % (Auto) 60.3 Lymph % (Auto) 31.1 [place] % (Auto) 4.1 Eos % (Auto) 3.6 Baso % (Auto) 0.9 Neut # (Auto) 4.8 Lymph # (Auto) 2.5 [place] # (Auto) 0.3 Eos # (Auto) 0.3 Baso # (Auto) 0.1 Sodium Potassium Chloride Carbon Dioxide Anion Gap BUN Creatinine Est GFR ( Amer) Est GFR (Non-Af Amer) POC Glucose (mg/dL) 320 H 233 H Random Glucose Calcium Phosphorus Magnesium Total Bilirubin AST ALT Alkaline Phosphatase Total Protein Albumin Globulin Albumin/Globulin Ratio B-Hydroxybutyrate 04/06/18 06:18 WBC RBC Hgb Hct MCV MCH MCHC RDW Plt Count MPV Neut % (Auto) Lymph % (Auto) [place] % (Auto) Eos % (Auto) Baso % (Auto) Neut # (Auto) Lymph # (Auto) [place] # (Auto) Eos # (Auto) Baso # (Auto) Sodium 153 H Potassium 4.4 Chloride 120 H Carbon Dioxide 22 Anion Gap 16 BUN 32 H Creatinine 0.9 Est GFR ( Amer) > 60 Est GFR (Non-Af Amer) > 60 POC Glucose (mg/dL) Random Glucose 205 H Calcium 10.7 H Phosphorus 2.1 L Magnesium 1.4 L Total Bilirubin 0.1 L AST 19 ALT 15 L Alkaline Phosphatase 96 Total Protein 5.6 L Albumin 2.8 L Globulin 2.9 Albumin/Globulin Ratio 1.0 B-Hydroxybutyrate Fingerstick Blood Sugar Results: 233 Review of Systems - Cardiovascular Cardiovascular: absent: Chest Pain, Diaphoresis, Palpitations - Respiratory Respiratory: absent: Cough, Dyspnea - Gastrointestinal Gastrointestinal: absent: Abdominal Pain, Diarrhea, Nausea, Vomiting Assessment/Plan - Assessment and Plan (Free Text) Assessment: 77 yo M admitted for AMS, dehydration, HHNS Neuro: AMS, improving -head CT neg for any acute pathology -f/u left sinusitis Pulm: -NC -CXR shows fluid overload -cut down fluids GI: Nutrition -glucerna tube feeds via NGT PEG -GI consult Dr. Mendez Renal: Dehydration/Hypernatremia -NS @100 -free water, 300 q feeds -UOP goal >25/hr -cut down IVF, fluid overload -diuretics contraindicated in hypernatremia Endo: HHNS-stable, off insulin drip DM2 -ISS q6 Ppx: -heparin 5000 bid -protonix 40 -SCD Dispo: -pt sister refusing hospice Case discussed w/ Dr. Yunier Ramos PGY1 <Rosa Washington - Last Filed: 04/07/18 09:33> CCU Objective - Vital Signs / Intake & Output Vital Signs (Last 4 hours): Vital Signs Pulse Resp BP Pulse Ox 04/07/18 06:01 81 15 137/74 100 Intake and Output (Last 8hrs): Intake & Output 04/06/18 04/07/18 04/07/18 22:59 06:59 14:59 Intake Total 1302.5 1340 Output Total 800 800 Balance 502.5 540 Weight 127 lb 3.2 oz Intake: Intake, IV Amount 567.5 600 Left Antecubital 567.5 600 Tube Feeding 435 440 Other 300 300 Output: Urine 800 800 Condom 800 800 - Medications Active Medications: Active Medications Generic Name Dose Route Start Last Admin Trade Name Freq PRN Reason Stop Dose Admin Acetaminophen 650 mg 04/05/18 13:15 04/06/18 17:24 Tylenol 650mg/20.3ml Solution Ud PO 650 mg Q4H PRN Administration Pain, moderate (4-7) Ascorbic Acid 500 mg 04/05/18 10:00 04/06/18 09:04 Vitamin C 500 Mg Tab PO 500 mg DAILY KAROLINE Administration Dextrose 0 ml 04/04/18 01:13 Dextrose 50% Inj IV STAT PRN Hypoglycemia Protocol Protocol Dextrose 0 gm 04/04/18 01:13 Glutose 15 PO ONCE PRN Hypoglycemia Protocol Protocol Escitalopram Oxalate 5 mg 04/06/18 23:50 04/07/18 01:37 Lexapro PO 5 mg DAILY KAROLINE Administration Glucagon 0 mg 04/04/18 01:13 Glucagen Diagnostic Kit IM STAT PRN Hypoglycemia Protocol Protocol Heparin Sodium (Porcine) 5,000 units 04/04/18 01:30 04/07/18 01:36 Heparin SC 5,000 units Q12H KAROLINE Administration Insulin Glargine 10 unit 04/05/18 22:00 04/06/18 21:01 Lantus SC 10 u HS KAROLINE Administration Insulin Human Regular 0 unit 04/04/18 18:00 04/07/18 06:47 Novolin R SC Not Given Q6 [facility] Protocol Midodrine 2.5 mg 04/05/18 10:00 04/06/18 17:24 Proamatine PO 2.5 mg TID KAROLINE Administration Pantoprazole Sodium 40 mg 04/04/18 10:00 04/06/18 09:04 Protonix Inj IVP 40 mg DAILY KAROLINE Administration Sucralfate 1 gm 04/06/18 18:00 04/06/18 21:00 Carafate Oral Susp PO 1 gm QID KAROLINE Administration Zinc Sulfate 220 mg 04/05/18 10:00 04/06/18 09:04 Zinc Sulfate 220 Mg Cap PO 220 mg DAILY KAROLINE Administration - Patient Studies Lab Studies: Microbiology Studies 04/04/18 06:41 Blood Culture - Preliminary Blood NO GROWTH AFTER 3 DAYS 04/04/18 06:38 Blood Culture - Preliminary Blood NO GROWTH AFTER 3 DAYS Lab Studies 04/07/18 04/07/18 04/07/18 Range/Units 06:14 06:14 05:49 WBC 9.5 (4.8-10.8) K/uL RBC 3.32 L (4.40-5.90) Mil/uL Hgb 9.2 L (12.0-18.0) g/dL Hct 28.7 L (35.0-51.0) % MCV 86.5 (80.0-94.0) fL MCH 27.8 (27.0-31.0) pg MCHC 32.1 L (33.0-37.0) g/dL RDW 18.5 H (11.5-14.5) % Plt Count 169 (130-400) K/uL MPV 10.4 (7.2-11.7) fL Neut % (Auto) 63.6 (50.0-75.0) % Lymph % (Auto) 25.0 (20.0-40.0) % [place] % (Auto) 3.5 (0.0-10.0) % Eos % (Auto) 7.1 H (0.0-4.0) % Baso % (Auto) 0.8 (0.0-2.0) % Neut # (Auto) 6.0 (1.8-7.0) K/uL Lymph # (Auto) 2.4 (1.0-4.3) K/uL [place] # (Auto) 0.3 (0.0-0.8) K/uL Eos # (Auto) 0.7 (0.0-0.7) K/uL Baso # (Auto) 0.1 (0.0-0.2) K/uL Sodium 146 (132-148) mmol/L Potassium 4.2 (3.6-5.2) mmol/L Chloride 113 H (98-107) mmol/L Carbon Dioxide 23 (22-30) mmol/L Anion Gap 14 (10-20) BUN 29 H (9-20) mg/dL Creatinine 0.8 (0.8-1.5) mg/dL Est GFR ( Amer) > 60 Est GFR (Non-Af Amer) > 60 POC Glucose (mg/dL) 130 H (65-110) mg/dL Random Glucose 143 H (75-110) mg/dL Calcium 9.9 (8.6-10.4) mg/dl Phosphorus 2.5 (2.5-4.5) mg/dL Magnesium 1.6 (1.6-2.3) mg/dL Total Bilirubin 0.1 L (0.2-1.3) mg/dL AST 19 (17-59) U/L ALT 23 (21-72) U/L Alkaline Phosphatase 95 (38-126) U/L Total Protein 5.3 L (6.3-8.3) g/dL Albumin 2.5 L (3.5-5.0) g/dL Globulin 2.8 (2.2-3.9) gm/dL Albumin/Globulin Ratio 0.9 L (1.0-2.1) 04/06/18 04/06/18 04/06/18 Range/Units 23:53 17:30 12:22 WBC (4.8-10.8) K/uL RBC (4.40-5.90) Mil/uL Hgb (12.0-18.0) g/dL Hct (35.0-51.0) % MCV (80.0-94.0) fL MCH (27.0-31.0) pg MCHC (33.0-37.0) g/dL RDW (11.5-14.5) % Plt Count (130-400) K/uL MPV (7.2-11.7) fL Neut % (Auto) (50.0-75.0) % Lymph % (Auto) (20.0-40.0) % [place] % (Auto) (0.0-10.0) % Eos % (Auto) (0.0-4.0) % Baso % (Auto) (0.0-2.0) % Neut # (Auto) (1.8-7.0) K/uL Lymph # (Auto) (1.0-4.3) K/uL [place] # (Auto) (0.0-0.8) K/uL Eos # (Auto) (0.0-0.7) K/uL Baso # (Auto) (0.0-0.2) K/uL Sodium (132-148) mmol/L Potassium (3.6-5.2) mmol/L Chloride (98-107) mmol/L Carbon Dioxide (22-30) mmol/L Anion Gap (10-20) BUN (9-20) mg/dL Creatinine (0.8-1.5) mg/dL Est GFR ( Amer) Est GFR (Non-Af Amer) POC Glucose (mg/dL) 154 H 176 H 148 H (65-110) mg/dL Random Glucose (75-110) mg/dL Calcium (8.6-10.4) mg/dl Phosphorus (2.5-4.5) mg/dL Magnesium (1.6-2.3) mg/dL Total Bilirubin (0.2-1.3) mg/dL AST (17-59) U/L ALT (21-72) U/L Alkaline Phosphatase (38-126) U/L Total Protein (6.3-8.3) g/dL Albumin (3.5-5.0) g/dL Globulin (2.2-3.9) gm/dL Albumin/Globulin Ratio (1.0-2.1) Laboratory Results - last 24 hr 04/06/18 04/06/18 04/06/18 12:22 17:30 23:53 WBC RBC Hgb Hct MCV MCH MCHC RDW Plt Count MPV Neut % (Auto) Lymph % (Auto) [place] % (Auto) Eos % (Auto) Baso % (Auto) Neut # (Auto) Lymph # (Auto) [place] # (Auto) Eos # (Auto) Baso # (Auto) Sodium Potassium Chloride Carbon Dioxide Anion Gap BUN Creatinine Est GFR ( Amer) Est GFR (Non-Af Amer) POC Glucose (mg/dL) 148 H 176 H 154 H Random Glucose Calcium Phosphorus Magnesium Total Bilirubin AST ALT Alkaline Phosphatase Total Protein Albumin Globulin Albumin/Globulin Ratio 04/07/18 04/07/18 04/07/18 05:49 06:14 06:14 WBC 9.5 RBC 3.32 L Hgb 9.2 L Hct 28.7 L MCV 86.5 MCH 27.8 MCHC 32.1 L RDW 18.5 H Plt Count 169 MPV 10.4 Neut % (Auto) 63.6 Lymph % (Auto) 25.0 [place] % (Auto) 3.5 Eos % (Auto) 7.1 H Baso % (Auto) 0.8 Neut # (Auto) 6.0 Lymph # (Auto) 2.4 [place] # (Auto) 0.3 Eos # (Auto) 0.7 Baso # (Auto) 0.1 Sodium 146 Potassium 4.2 Chloride 113 H Carbon Dioxide 23 Anion Gap 14 BUN 29 H Creatinine 0.8 Est GFR ( Amer) > 60 Est GFR (Non-Af Amer) > 60 POC Glucose (mg/dL) 130 H Random Glucose 143 H Calcium 9.9 Phosphorus 2.5 Magnesium 1.6 Total Bilirubin 0.1 L AST 19 ALT 23 Alkaline Phosphatase 95 Total Protein 5.3 L Albumin 2.5 L Globulin 2.8 Albumin/Globulin Ratio 0.9 L Assessment/Plan - Assessment and Plan (Free Text) Assessment: PAtient seen and examined at bedside. patient much more awake alert. -as per nursing patient able to eat; however not sufficient to met his daily caloric reqiurment -failure to thrive -goals of care to be discussed wiht POA -Blood sugar controlled -continue to monitor -aspiration precautions - Date & Time Date: 04/06/18 Time: 19:00
[2018-04-06] MEDS: Magnesium Sulfate 1 gm in D5W 1 GM/100 ML BAG IVPB SCH ×2 (08:20→09:00)
[2018-04-06] MEDS ORDERED: Potassium Phosphate 15 MMOLE in Sodium Chloride 0.9% 250 ML IVPB ONE (09:00)
--- NOTE | 2018-04-06 10:36 | RAD ---
Date of service: 04/06/2018 HISTORY: Follow-up COMPARISON: 04/04/2018 FINDINGS: LUNGS: There are low lung volumes. There is airspace disease in the right lower lobe. There is subsegmental atelectasis in the left lung base. PLEURA: No significant pleural effusion identified, no pneumothorax apparent. CARDIOVASCULAR: Stable OSSEOUS STRUCTURES: No significant abnormalities. VISUALIZED UPPER ABDOMEN: Normal. OTHER FINDINGS: The nasogastric tube terminates in the stomach. IMPRESSION: Low lung volumes. Airspace disease in the right lower lobe may represent pneumonia. Nasogastric tube terminates in the stomach. No other significant interval change.
[2018-04-06] MEDS: Sodium Chloride 0.9% 1,000 ML IV SCH ×2 (13:09)
--- NOTE | 2018-04-06 14:04 | CP.PCM.CON ---
History of Present Illness - History of Present Illness History of Present Illness: GI Fellow PGY4, Consult note. Consulted for PEG tube. Suresh Aldana is a frail, chronically ill appearing 77yo M with extensive medical history and recurrent ICU admission now presenting with AMS. Patient is unable to feed himself and is severely hypernatremic from dehydration. Family refusing hospice discussion and asking for PEG tube. Importantly, this patient had gastric perforation 12/27 from PUD. He had open lap and Colin patch placement per records. 01/26/18 - Duodenal ulcer bleed while in ICU. PMHx -HTN, GERD, DM, CAD PSHx - see above FMHx - unable to confirm SocHx - Unable to confirm Unable to complete 12pt ROS due to AMS. Past Patient History - Infectious Disease Hx of Infectious Diseases: None - Past Medical History & Family History Past Medical History?: Yes - Past Social History Smoking Status: Former Smoker - CARDIAC Hx Hypercholesterolemia: Yes Hx Hypertension: Yes - PULMONARY Hx Respiratory Disorders: No - NEUROLOGICAL Hx Neurological Disorder: Yes Hx Syncope: Yes - HEENT Hx HEENT Problems: No - RENAL Hx Chronic Kidney Disease: No - ENDOCRINE/METABOLIC Hx Diabetes Mellitus Type 2: Yes - HEMATOLOGICAL/ONCOLOGICAL Hx Blood Disorders: No - INTEGUMENTARY Hx Dermatological Problems: No - MUSCULOSKELETAL/RHEUMATOLOGICAL Hx Arthritis: Yes - GASTROINTESTINAL Hx Gastrointestinal Disorders: Yes Hx Gastroesophageal Reflux: Yes - GENITOURINARY/GYNECOLOGICAL Hx Genitourinary Disorders: No - PSYCHIATRIC Hx Substance Use: No - SURGICAL HISTORY Hx Surgeries: Yes Other/Comment: left knee replacement, and left nerve repair, left and right hand nerve repair, Exp.Lap 12/22/17, - ANESTHESIA Hx Anesthesia: Yes Hx Anesthesia Reactions: No Hx Malignant Hyperthermia: No Meds Allergies/Adverse Reactions: Allergies Allergy/AdvReac Type Severity Reaction Status Date / Time Penicillins Allergy Mild Verified 01/26/18 15:08 - Medications Medications: Current Medications Acetaminophen (Tylenol 650mg/20.3ml Solution Ud) 650 mg PO Q4H PRN PRN Reason: Pain, moderate (4-7) Last Admin: 04/06/18 09:32 Dose: 650 mg Ascorbic Acid (Vitamin C 500 Mg Tab) 500 mg PO DAILY KAROLINE Last Admin: 04/06/18 09:04 Dose: 500 mg Dextrose (Dextrose 50% Inj) 0 ml IV STAT PRN; Protocol PRN Reason: Hypoglycemia Protocol Dextrose (Glutose 15) 0 gm PO ONCE PRN; Protocol PRN Reason: Hypoglycemia Protocol Glucagon (Glucagen Diagnostic Kit) 0 mg IM STAT PRN; Protocol PRN Reason: Hypoglycemia Protocol Heparin Sodium (Porcine) (Heparin) 5,000 units SC Q12H [facility] Last Admin: 04/06/18 13:09 Dose: 5,000 units Dextrose (Dextrose 5% In Water 1000 Ml) 1,000 mls @ 0 mls/hr IV .Q0M PRN; Protocol; Per Protocol PRN Reason: Hypoglycemia Protocol Sodium Chloride (Sodium Chloride 0.9%) 1,000 mls @ 75 mls/hr IV .[id number] [facility] Last Admin: 04/06/18 13:09 Dose: 75 mls/hr Potassium Phosphate 15 mmole/ (Sodium Chloride) 255 mls @ 42.5 mls/hr IVPB ONCE ONE Stop: 04/06/18 14:59 Last Admin: 04/06/18 09:07 Dose: 42.5 mls/hr Insulin Glargine (Lantus) 10 unit SC HS [facility] Last Admin: 04/05/18 21:15 Dose: 10 u Insulin Human Regular (Novolin R) 0 unit SC Q6 [facility] PRN Reason: Protocol Last Admin: 04/06/18 12:25 Dose: Not Given Midodrine (Proamatine) 2.5 mg PO TID [facility] Last Admin: 04/06/18 13:09 Dose: 2.5 mg Pantoprazole Sodium (Protonix Inj) 40 mg IVP DAILY [facility] Last Admin: 04/06/18 09:04 Dose: 40 mg Zinc Sulfate (Zinc Sulfate 220 Mg Cap) 220 mg PO DAILY [facility] Last Admin: 04/06/18 09:04 Dose: 220 mg Physical Exam - Constitutional Appears: Non-toxic, Confused, Cachectic, Chronically Ill - Eye Exam Eye Exam: Normal appearance - ENT Exam ENT Exam: Normal Exam - Respiratory Exam Respiratory Exam: Clear to Auscultation Bilateral, NORMAL BREATHING PATTERN. absent: Wheezes - Cardiovascular Exam Cardiovascular Exam: REGULAR RHYTHM, +S1, +S2 - GI/Abdominal Exam GI & Abdominal Exam: Normal Bowel Sounds, Soft. absent: Distended, Tenderness - Extremities Exam Extremities exam: Positive for: normal inspection - Neurological Exam Neurological exam: Altered - Psychiatric Exam Psychiatric exam: Depressed, Flat Affect - Skin Skin Exam: Dry, Intact Results - Vital Signs Recent Vital Signs: Last Vital Signs Temp 98.5 F 04/06/18 04:00 Pulse 76 04/06/18 12:00 Resp 14 04/06/18 12:00 BP 120/73 04/06/18 12:00 Pulse Ox 99 04/06/18 12:00 - Labs Result Diagrams: 04/06/18 06:18 04/06/18 06:18 Labs: Laboratory Results - last 24 hr 04/05/18 04/06/18 04/06/18 17:48 00:20 05:47 WBC RBC Hgb Hct MCV MCH MCHC RDW Plt Count MPV Neut % (Auto) Lymph % (Auto) [place] % (Auto) Eos % (Auto) Baso % (Auto) Neut # (Auto) Lymph # (Auto) [place] # (Auto) Eos # (Auto) Baso # (Auto) Sodium Potassium Chloride Carbon Dioxide Anion Gap BUN Creatinine Est GFR ( Amer) Est GFR (Non-Af Amer) POC Glucose (mg/dL) 326 H 320 H 233 H Random Glucose Calcium Phosphorus Magnesium Total Bilirubin AST ALT Alkaline Phosphatase Total Protein Albumin Globulin Albumin/Globulin Ratio 04/06/18 04/06/18 06:18 06:18 WBC 7.9 RBC 3.22 L Hgb 9.0 L Hct 28.2 L MCV 87.6 MCH 27.9 MCHC 31.8 L RDW 18.3 H Plt Count 158 MPV 9.9 Neut % (Auto) 60.3 Lymph % (Auto) 31.1 [place] % (Auto) 4.1 Eos % (Auto) 3.6 Baso % (Auto) 0.9 Neut # (Auto) 4.8 Lymph # (Auto) 2.5 [place] # (Auto) 0.3 Eos # (Auto) 0.3 Baso # (Auto) 0.1 Sodium 153 H Potassium 4.4 Chloride 120 H Carbon Dioxide 22 Anion Gap 16 BUN 32 H Creatinine 0.9 Est GFR ( Amer) > 60 Est GFR (Non-Af Amer) > 60 POC Glucose (mg/dL) Random Glucose 205 H Calcium 10.7 H Phosphorus 2.1 L Magnesium 1.4 L Total Bilirubin 0.1 L AST 19 ALT 15 L Alkaline Phosphatase 96 Total Protein 5.6 L Albumin 2.8 L Globulin 2.9 Albumin/Globulin Ratio 1.0 Assessment & Plan - Assessment and Plan (Free Text) Assessment: 77M with history of gastric perforation, chronically ill and severely malnourished presented with AMS. Family requesting PEG tube. #Severely malnourished #Failure to thrive #Hx Gastric perforation from PUD s.p Colin patch 12/27 #Hx acute GI bleed from duodenal ulcer 01/26/18 #DM #HTN #CAD #Anemia #Hypovolemic hypernatremia Plan: -Start carafate -Continue PPI -Continue to monitor Hb and signs of bleeding -After discussion with patient and nurse, there is no immediate desire by patient or patient family for PEG tube. Unfortunately, patient is unable to feed himself and family is not interested in comfort measures. Patient cannot have NGT placed permanently or high risk of esophageal erosion, aspiration. -We are happy to help place a PEG tube when all parties are in agreement. - Date & Time Date: 04/06/18 Time: 14:54
[2018-04-06] MEDS: Sucralfate 1 gm/10 ml Oral Susp UD PO SCH ×2 (17:24→21:00)
[2018-04-06] MEDS ORDERED: (Lantus) Insulin Glargine, Recombinant SC SCH (20:00)
[2018-04-06] MEDS ORDERED: Oxycodone/Acetaminophen 5/325 mg Tab PO STA (20:54)
[2018-04-06] MEDS: (Lantus) Insulin Glargine, Recombinant SC SCH (21:01)
[2018-04-07] MEDS: (Novolin R) Insulin Human Regular 100 units/ml vial SC SCH ×4 (00:27→17:31)
[2018-04-07] MEDS: Sodium Chloride 0.9% 1,000 ML IV SCH (02:00)
[2018-04-07 06:23] LABS: BASO # 0.1 K/uL (0.0-0.2); BASO % 0.8 % (0.0-2.0); EOS # 0.7 K/uL (0.0-0.7); EOS % 7.1 % (0.0-4.0); HEMOGLOBIN 9.2 g/dL (12.0-18.0); LYMPH # 2.4 K/uL (1.0-4.3); MEAN CELL VOLUME 86.5 fL (80.0-94.0); MEAN CORPUSCULAR HEMOGLOBIN 27.8 pg (27.0-31.0); MEAN CORPUSCULAR HGB CONC 32.1 g/dL (33.0-37.0); MEAN PLATELET VOLUME 10.4 fL (7.2-11.7); MONO # 0.3 K/uL (0.0-0.8); MONO % 3.5 % (0.0-10.0); NEUT % 63.6 % (50.0-75.0); NRBC % 0.1 % (0.0-2.0); RBC 3.32 Mil/uL (4.40-5.90); RED CELL DISTRIBUTION WIDTH 18.5 % (11.5-14.5); WHITE BLOOD COUNT 9.5 K/uL (4.8-10.8)
[2018-04-07 06:54] LABS: ALB/GLOB RATIO 0.9 (1.0-2.1); ALBUMIN 2.5 g/dL (3.5-5.0); ALT/SGPT 23 U/L (21-72); AST/SGOT 19 U/L (17-59); BLOOD UREA NITROGEN 29 mg/dL (9-20); CALCIUM 9.9 mg/dl (8.6-10.4); GFR AFRICAN-AMERICAN > 60; GFR NON-AFRICAN AMERICAN > 60
[2018-04-07] MEDS: Sucralfate 1 gm/10 ml Oral Susp UD PO SCH ×4 (10:20→21:23)
[2018-04-07] MEDS: Acetaminophen 650mg/20.3ml solution UD PO PRN ×3 (11:20→23:05)
--- NOTE | 2018-04-07 12:22 | PN ---
DATE: 04/07/2018 LOCATION: ICU . SUBJECTIVE: This is a 77-year-old male seen early in rounds and for GI consultation on 04/06/2018, reexamined again today without any significant clinical changes or reported active bleeding. The patient has a status of DNR and DNI, and family so far hesitated for any possible PEG insertion as requested and recommended by the admitting medical staff as well as myself. Today's lab showed hemoglobin 9.2, hematocrit 27.7. Blood glucose level of 130. The patient had electrolyte imbalance with low phosphorus 2.1, low magnesium 1.4, with albumin 2.8. PHYSICAL EXAMINATION: GENERAL: A 77-year-old male. VITAL SIGNS: Afebrile with pulse of 76, respiratory rate of 16-18, and blood pressure of 132/72. HEENT: Showed pale, dry oral mucous membranes. Nonicteric sclerae. LUNGS: A few scattered crepitation. Decreased air entry at bases. HEART: Positive S1 and S2. ABDOMEN: Soft. Bowel sounds are present with mild generalized tenderness. No mass or organomegaly. No rebound tenderness or guarding. EXTREMITIES: Without significant clubbing, cyanosis, or edema. NEUROLOGIC: No new reported neurological deficits, sensory or motor. The patient was admitted with change of mental status. IMPRESSION: 1. Hypoalbuminemia, malnutrition. 2. Electrolyte imbalance. 3. Known history of bleeding duodenal ulcer with reported perforated gastric wall before. 4. Known history of hypertension, coronary artery disease, diabetes mellitus. 5. Failure to thrive. 6. Anemia, most likely secondary to above. 7. Electrolyte imbalance, severe, with hypernatremia, hypomagnesemia, hypophosphatemia. SUGGESTIONS: 1. Continue conservative treatment. 2. Will consider PEG insertion if the family agreed; otherwise, surgical followup to follow. Sangeeta Carey MD
--- NOTE | 2018-04-07 15:04 | CP.PCM.PN ---
Subjective - Date & Time of Evaluation Date of Evaluation: 04/06/18 Time of Evaluation: 20:40 - Subjective Subjective: Patient seen and examined Objective - Vital Signs/Intake and Output Vital Signs (last 24 hours): Temp Pulse Resp BP Pulse Ox 97.7 F 96 H 36 H 144/93 H 100 04/07/18 12:00 04/07/18 14:58 04/07/18 14:01 04/07/18 14:01 04/07/18 14:01 Intake and Output: 04/07/18 04/07/18 06:59 18:59 Intake Total 2160 Output Total 1100 Balance 1060 - Medications Medications: Current Medications Acetaminophen (Tylenol 650mg/20.3ml Solution Ud) 650 mg PO Q4H PRN PRN Reason: Pain, moderate (4-7) Last Admin: 04/07/18 11:20 Dose: 650 mg Ascorbic Acid (Vitamin C 500 Mg Tab) 500 mg PO DAILY [facility] Last Admin: 04/07/18 10:21 Dose: 500 mg Dextrose (Dextrose 50% Inj) 0 ml IV STAT PRN; Protocol PRN Reason: Hypoglycemia Protocol Dextrose (Glutose 15) 0 gm PO ONCE PRN; Protocol PRN Reason: Hypoglycemia Protocol Escitalopram Oxalate (Lexapro) 5 mg PO DAILY [facility] Last Admin: 04/07/18 10:21 Dose: 5 mg Glucagon (Glucagen Diagnostic Kit) 0 mg IM STAT PRN; Protocol PRN Reason: Hypoglycemia Protocol Heparin Sodium (Porcine) (Heparin) 5,000 units SC Q12H [facility] Last Admin: 04/07/18 01:36 Dose: 5,000 units Insulin Glargine (Lantus) 10 unit SC HS [facility] Last Admin: 04/06/18 21:01 Dose: 10 u Insulin Human Regular (Novolin R) 0 unit SC Q6 [facility] PRN Reason: Protocol Last Admin: 04/07/18 06:47 Dose: Not Given Midodrine (Proamatine) 2.5 mg PO TID [facility] Last Admin: 04/07/18 10:21 Dose: 2.5 mg Pantoprazole Sodium (Protonix Inj) 40 mg IVP DAILY [facility] Last Admin: 04/07/18 10:22 Dose: 40 mg Sucralfate (Carafate Oral Susp) 1 gm PO QID [facility] Last Admin: 04/07/18 10:20 Dose: 1 gm Zinc Sulfate (Zinc Sulfate 220 Mg Cap) 220 mg PO DAILY [facility] Last Admin: 04/07/18 10:20 Dose: 220 mg - Labs Labs: 04/07/18 06:14 04/07/18 06:14 PT 10.6 SECONDS (9.7-12.2) 04/03/18 22:35 INR 1.0 04/03/18 22:35 APTT 24 SECONDS (21-34) 04/03/18 22:35 Assessment and Plan (1) Hyperosmolar non-ketotic state in patient with type 2 diabetes mellitus Status: Acute (2) Elevated BUN Status: Acute (3) Hyperglycemia Status: Acute (4) Lethargy Status: Acute (5) CAD (coronary artery disease) Status: Acute (6) Hypotension (arterial) Status: Acute
--- NOTE | 2018-04-07 15:05 | CP.PCM.PN ---
Subjective - Date & Time of Evaluation Date of Evaluation: 04/07/18 Time of Evaluation: 19:35 - Subjective Subjective: patient seen and examined Objective - Vital Signs/Intake and Output Vital Signs (last 24 hours): Temp Pulse Resp BP Pulse Ox 97.7 F 96 H 36 H 144/93 H 100 04/07/18 12:00 04/07/18 14:58 04/07/18 14:01 04/07/18 14:01 04/07/18 14:01 Intake and Output: 04/07/18 04/07/18 06:59 18:59 Intake Total 2160 Output Total 1100 Balance 1060 - Medications Medications: Current Medications Acetaminophen (Tylenol 650mg/20.3ml Solution Ud) 650 mg PO Q4H PRN PRN Reason: Pain, moderate (4-7) Last Admin: 04/07/18 11:20 Dose: 650 mg Ascorbic Acid (Vitamin C 500 Mg Tab) 500 mg PO DAILY [facility] Last Admin: 04/07/18 10:21 Dose: 500 mg Dextrose (Dextrose 50% Inj) 0 ml IV STAT PRN; Protocol PRN Reason: Hypoglycemia Protocol Dextrose (Glutose 15) 0 gm PO ONCE PRN; Protocol PRN Reason: Hypoglycemia Protocol Escitalopram Oxalate (Lexapro) 5 mg PO DAILY [facility] Last Admin: 04/07/18 10:21 Dose: 5 mg Glucagon (Glucagen Diagnostic Kit) 0 mg IM STAT PRN; Protocol PRN Reason: Hypoglycemia Protocol Heparin Sodium (Porcine) (Heparin) 5,000 units SC Q12H [facility] Last Admin: 04/07/18 01:36 Dose: 5,000 units Insulin Glargine (Lantus) 10 unit SC HS [facility] Last Admin: 04/06/18 21:01 Dose: 10 u Insulin Human Regular (Novolin R) 0 unit SC Q6 [facility] PRN Reason: Protocol Last Admin: 04/07/18 06:47 Dose: Not Given Midodrine (Proamatine) 2.5 mg PO TID [facility] Last Admin: 04/07/18 10:21 Dose: 2.5 mg Pantoprazole Sodium (Protonix Inj) 40 mg IVP DAILY [facility] Last Admin: 04/07/18 10:22 Dose: 40 mg Sucralfate (Carafate Oral Susp) 1 gm PO QID [facility] Last Admin: 04/07/18 10:20 Dose: 1 gm Zinc Sulfate (Zinc Sulfate 220 Mg Cap) 220 mg PO DAILY [facility] Last Admin: 04/07/18 10:20 Dose: 220 mg - Labs Labs: 04/07/18 06:14 04/07/18 06:14 PT 10.6 SECONDS (9.7-12.2) 04/03/18 22:35 INR 1.0 04/03/18 22:35 APTT 24 SECONDS (21-34) 04/03/18 22:35 Assessment and Plan (1) Hyperosmolar non-ketotic state in patient with type 2 diabetes mellitus Status: Acute (2) Elevated BUN Status: Acute (3) Hyperglycemia Status: Acute (4) Lethargy Status: Acute (5) CAD (coronary artery disease) Status: Acute (6) Hypotension (arterial) Status: Acute
[2018-04-07] MEDS: (Lantus) Insulin Glargine, Recombinant SC SCH (21:23)
[2018-04-08] MEDS: (Novolin R) Insulin Human Regular 100 units/ml vial SC SCH ×5 (01:23→23:40)
[2018-04-08] MEDS: Acetaminophen 650mg/20.3ml solution UD PO PRN ×4 (06:07→22:05)
[2018-04-08] MEDS: Sucralfate 1 gm/10 ml Oral Susp UD PO SCH ×4 (10:08→22:05)
--- NOTE | 2018-04-08 13:35 | PN ---
DATE: 04/08/2018 LOCATION: ICU SUBJECTIVE: This is a 77-year-old male seen early in rounds in the intensive care unit without any significant clinical changes or reported active bleeding, with NG tube still in place and intact. The patient able to tolerate some sips of apple juice as per the nursing staff with one bowel movement of soft fecal material. No reported active bleeding. No reported chills or fever recently. The entire chart was reviewed including but not limited to the most recent lab and radiology study results, current and the previous medication list, current and the previous medical events. Today's lab showed blood glucose level of latest 83. However, the patient still has low hemoglobin and hematocrit with low albumin and low total protein. PHYSICAL EXAMINATION: GENERAL: A 77-year-old male in a status of DNR and DNI as per the record. VITAL SIGNS: Afebrile with pulse of 88, respiratory rate of 20 to 22, blood pressure 120/64. HEENT: Showed pale, dry oral mucous membrane. Nonicteric sclerae. LUNGS: A few scattered crepitation. Decreased air entry at bases. HEART: Positive S1 and S2. ABDOMEN: Soft. Bowel sounds are present but hypoactive. No mass or organomegaly. No rebound tenderness or guarding. EXTREMITIES: Lower extremities, mild edematous changes. No clubbing or cyanosis. It has to be mentioned that the patient unable to give adequate information, and all the information obtained from the medical staff, nursing staff, as well as the medical record. IMPRESSION: 1. Malnutrition with failure to thrive and hypoalbuminemia, hypoproteinemia. 2. The patient is a candidate for a peripherally inserted central catheter insertion, so far no final decision as per the family. 3. Known history of bleeding duodenal ulcer with perforated gastric wall before, treated surgically. 4. Electrolyte imbalance. 5. Anemia, most likely secondary to above and chronic disease. 6. Known history of hypertension, coronary artery disease, myocardial infarction, hyperlipidemia with recent change of mental status and dehydration. SUGGESTIONS: 1. Continue current management. 2. Central hyperalimentation. 3. Increase NG tube feeding as tolerated. Sangeeta Carey MD [facility] # [id number]
[2018-04-08] MEDS: (Lantus) Insulin Glargine, Recombinant SC SCH (22:06)
--- NOTE | 2018-04-08 23:30 | CP.PCM.PN ---
Subjective - Date & Time of Evaluation Date of Evaluation: 04/08/18 Time of Evaluation: 18:45 - Subjective Subjective: pt seen and examined, pt is feeling well,except he has a sleep disturbance at night and cant sleep well, labs repeated, blood sugars are down Objective - Vital Signs/Intake and Output Vital Signs (last 24 hours): Temp Pulse Resp BP Pulse Ox 98.5 F 85 15 117/66 100 04/08/18 20:00 04/08/18 08:01 04/08/18 08:01 04/08/18 08:01 04/08/18 08:01 Intake and Output: 04/08/18 04/09/18 18:59 06:59 Intake Total 55 Output Total 100 Balance -45 - Medications Medications: Current Medications Acetaminophen (Tylenol 650mg/20.3ml Solution Ud) 650 mg PO Q4H PRN PRN Reason: Pain, moderate (4-7) Last Admin: 04/08/18 22:05 Dose: 650 mg Ascorbic Acid (Vitamin C 500 Mg Tab) 500 mg PO DAILY [facility] Last Admin: 04/08/18 10:08 Dose: 500 mg Dextrose (Dextrose 50% Inj) 0 ml IV STAT PRN; Protocol PRN Reason: Hypoglycemia Protocol Dextrose (Glutose 15) 0 gm PO ONCE PRN; Protocol PRN Reason: Hypoglycemia Protocol Escitalopram Oxalate (Lexapro) 5 mg PO DAILY [facility] Last Admin: 04/08/18 10:08 Dose: 5 mg Glucagon (Glucagen Diagnostic Kit) 0 mg IM STAT PRN; Protocol PRN Reason: Hypoglycemia Protocol Heparin Sodium (Porcine) (Heparin) 5,000 units SC Q12H [facility] Last Admin: 04/08/18 18:44 Dose: 5,000 units Insulin Glargine (Lantus) 10 unit SC HS [facility] Last Admin: 04/08/18 22:06 Dose: 10 u Insulin Human Regular (Novolin R) 0 unit SC Q6 [facility] PRN Reason: Protocol Last Admin: 04/08/18 18:45 Dose: 4 units Midodrine (Proamatine) 2.5 mg PO TID [facility] Last Admin: 04/08/18 18:45 Dose: 2.5 mg Pantoprazole Sodium (Protonix Inj) 40 mg IVP DAILY [facility] Last Admin: 04/08/18 10:09 Dose: 40 mg Sucralfate (Carafate Oral Susp) 1 gm PO QID [facility] Last Admin: 04/08/18 22:05 Dose: 1 gm Zinc Sulfate (Zinc Sulfate 220 Mg Cap) 220 mg PO DAILY [facility] Last Admin: 04/08/18 10:08 Dose: 220 mg Zolpidem Tartrate (Ambien) 5 mg PO HS PRN PRN Reason: Insomnia Last Admin: 04/07/18 23:06 Dose: 5 mg - Labs Labs: 04/07/18 06:14 04/07/18 06:14 PT 10.6 SECONDS (9.7-12.2) 04/03/18 22:35 INR 1.0 04/03/18 22:35 APTT 24 SECONDS (21-34) 04/03/18 22:35 - Constitutional Appears: No Acute Distress - Head Exam Head Exam: ATRAUMATIC, NORMAL INSPECTION, NORMOCEPHALIC - Eye Exam Eye Exam: EOMI, Normal appearance, PERRL Pupil Exam: NORMAL ACCOMODATION, PERRL - ENT Exam ENT Exam: Mucous Membranes Moist, Normal Exam - Respiratory Exam Respiratory Exam: Clear to Ausculation Bilateral, NORMAL BREATHING PATTERN - Cardiovascular Exam Cardiovascular Exam: REGULAR RHYTHM, +S1, +S2. absent: Murmur - GI/Abdominal Exam GI & Abdominal Exam: Soft, Normal Bowel Sounds. absent: Tenderness Assessment and Plan (1) Hyperosmolar non-ketotic state in patient with type 2 diabetes mellitus Status: Acute (2) Elevated BUN Status: Acute (3) Hyperglycemia Status: Acute (4) Lethargy Status: Acute (5) CAD (coronary artery disease) Status: Acute (6) Hypotension (arterial) Status: Acute
[2018-04-09] MEDS: Acetaminophen 650mg/20.3ml solution UD PO PRN ×3 (04:15→18:01)
[2018-04-09 04:41] LABS: HEMOGLOBIN 8.3 g/dL (12.0-18.0); MEAN CELL VOLUME 85.4 fL (80.0-94.0); MEAN CORPUSCULAR HEMOGLOBIN 27.2 pg (27.0-31.0); MEAN CORPUSCULAR HGB CONC 31.8 g/dL (33.0-37.0); MEAN PLATELET VOLUME 10.2 fL (7.2-11.7); RBC 3.05 Mil/uL (4.40-5.90); RED CELL DISTRIBUTION WIDTH 18.8 % (11.5-14.5); WHITE BLOOD COUNT 8.7 K/uL (4.8-10.8)
[2018-04-09 05:00] LABS: ALB/GLOB RATIO 0.9 (1.0-2.1); ALBUMIN 2.6 g/dL (3.5-5.0); ALT/SGPT 27 U/L (21-72); AST/SGOT 26 U/L (17-59); BLOOD UREA NITROGEN 32 mg/dL (9-20); CALCIUM 10.5 mg/dl (8.6-10.4); GFR AFRICAN-AMERICAN > 60; GFR NON-AFRICAN AMERICAN > 60
[2018-04-09] MEDS: (Novolin R) Insulin Human Regular 100 units/ml vial SC SCH ×3 (05:03→17:27)
[2018-04-09] MEDS: Sucralfate 1 gm/10 ml Oral Susp UD PO SCH ×4 (11:48→22:08)
--- NOTE | 2018-04-09 15:29 | CP.PCM.PN ---
Subjective - Date & Time of Evaluation Date of Evaluation: 04/09/18 Time of Evaluation: 03:30 - Subjective Subjective: Patient examined in bed alert, and oriented X 3, with speech that is clear. Patient complains of general pain trough out his body. When asked to describe pain , patient says" my stomach hurts, my back hurts, everything hurts". Patient given Tylenol 650 mg for pain. NGT out. Patient swallows well. Objective - Vital Signs/Intake and Output Vital Signs (last 24 hours): Temp Pulse Resp BP Pulse Ox 98.4 F 86 18 129/83 100 04/09/18 07:00 04/09/18 07:15 04/09/18 07:00 04/09/18 07:00 04/09/18 07:00 Intake and Output: 04/09/18 04/09/18 06:59 18:59 Intake Total 1095 200 Output Total 200 500 Balance 895 -300 - Medications Medications: Current Medications Acetaminophen (Tylenol 650mg/20.3ml Solution Ud) 650 mg PO Q4H PRN PRN Reason: Pain, moderate (4-7) Last Admin: 04/09/18 12:00 Dose: 650 mg Ascorbic Acid (Vitamin C 500 Mg Tab) 500 mg PO DAILY [facility] Last Admin: 04/09/18 11:48 Dose: 500 mg Dextrose (Dextrose 50% Inj) 0 ml IV STAT PRN; Protocol PRN Reason: Hypoglycemia Protocol Dextrose (Glutose 15) 0 gm PO ONCE PRN; Protocol PRN Reason: Hypoglycemia Protocol Escitalopram Oxalate (Lexapro) 5 mg PO DAILY [facility] Last Admin: 04/09/18 11:48 Dose: 5 mg Glucagon (Glucagen Diagnostic Kit) 0 mg IM STAT PRN; Protocol PRN Reason: Hypoglycemia Protocol Heparin Sodium (Porcine) (Heparin) 5,000 units SC Q12H [facility] Last Admin: 04/09/18 05:02 Dose: 5,000 units Insulin Glargine (Lantus) 10 unit SC HS [facility] Last Admin: 04/08/18 22:06 Dose: 10 u Insulin Human Regular (Novolin R) 0 unit SC Q6 [facility] PRN Reason: Protocol Last Admin: 04/09/18 12:44 Dose: 4 units Midodrine (Proamatine) 2.5 mg PO TID [facility] Last Admin: 07/30/18 15:01 Dose: 2.5 mg Pantoprazole Sodium (Protonix Inj) 40 mg IVP DAILY [facility] Last Admin: 04/09/18 11:47 Dose: 40 mg Sucralfate (Carafate Oral Susp) 1 gm PO QID [facility] Last Admin: 04/09/18 15:00 Dose: 1 gm Zinc Sulfate (Zinc Sulfate 220 Mg Cap) 220 mg PO DAILY [facility] Last Admin: 04/09/18 11:48 Dose: 220 mg Zolpidem Tartrate (Ambien) 5 mg PO HS PRN PRN Reason: Insomnia Last Admin: 04/07/18 23:06 Dose: 5 mg - Labs Labs: 04/09/18 04:34 04/09/18 04:34 PT 10.6 SECONDS (9.7-12.2) 04/03/18 22:35 INR 1.0 04/03/18 22:35 APTT 24 SECONDS (21-34) 04/03/18 22:35 - Constitutional Appears: Chronically Ill - Head Exam Head Exam: ATRAUMATIC - Eye Exam Eye Exam: EOMI, Normal appearance, PERRL Pupil Exam: NORMAL ACCOMODATION, PERRL - ENT Exam ENT Exam: Mucous Membranes Moist, Normal Exam - Neck Exam Neck Exam: Full ROM, Normal Inspection - Respiratory Exam Respiratory Exam: Decreased Breath Sounds, NORMAL BREATHING PATTERN - Cardiovascular Exam Cardiovascular Exam: Tachycardia - GI/Abdominal Exam GI & Abdominal Exam: Normal Bowel Sounds - Rectal Exam Rectal Exam: Deferred - Exam Exam: NORMAL INSPECTION - Extremities Exam Extremities Exam: Normal Capillary Refill, Normal Inspection Additional comments: pressure sore to both heals. - Back Exam Back Exam: NORMAL INSPECTION - Neurological Exam Neurological Exam: Alert Neuro motor strength exam: Left Upper Extremity: 2/1, Right Upper Extremity: 2/1 , Left Lower Extremity: 0, Right Lower Extremity: 0 - Psychiatric Exam Psychiatric exam: Normal Affect, Normal Mood - Skin Skin Exam: Normal Color, Warm Assessment and Plan - Assessment and Plan (Free Text) Assessment: Patient examined in bed, alert to place and person. Patient is post removal of NGT. Tolerates PO well. I fed patient the whole container of vanilla pudding. Patient reports generalized pain. Pain worsens with mobility. Patient is unable to reposition on his own and resists assistance due to pain. LEs with very limited ROM. Patient is incontinent of bowel and bladder. [place] catheter at bed side. Concern was regarding patient's nutrition until today. As of today, NGT out and patient tolerates PO well. PEG is not option any more. I tried to discuss goals of care with patient today, but he was not really able to fully participate in discussion. Patient was able to clearly indicate that he would not want any aggressive measures including PEG, CPR or MV assistance. His DNR/DNI status was explained to patient and he agreed. His sister in law Sanchez was on her way to visit and we agreed to meet today at 3 pm and discuss further goals of care. 4 : 20 pm Goals of care discussed with patient's sister in law Sanchez, who is his POA, in presence of patient. I reviewed patient's clinical presentation. She was happy to hear that patient was able to tolerate soft food. I elicited her expectations of further care. She stated understanding of patient's chronic condition and her goal is that patient remains comfortable for the rest of his life. Laura clearly stated " I would never allow PEG tube" I offered more information about comfort care at the setting of [place]. She agreed. This was shared with Tania [employer] for Hospice eval today, if possible. Impression * Chronically ill male * Generalized weakness, unable to feed himself, needs max assistance with care * Chronic, generalized pain * Limited ROM to LEs due to pain * B/L heels pressure sores * Sister in law Sanchez advocates for comfort care only Suggestion * Assist with ADLs * Spoon feed at each meal * Aspiration precautions * Tylenol PRN for pain * Reposition in bed for comfort * Of load both heels * Transfer to [place] with Hospice Care if OK with Doctor Artur Palliative care will sign off on this patient at this time Advance planing time 35 min
--- NOTE | 2018-04-09 16:04 | PN ---
DATE: 04/09/2018 LOCATION: 659, bed A. SUBJECTIVE: This is a 77-year-old male seen out of the intensive care unit, in a state of DNR and DNI, appeared to be somewhat verbally more responsive and oriented, still had NG tube in place for feeding and the medication purposes. The entire chart is reviewed including but not limited to the most recent lab and radiology study results, current and the previous medication list, current and the previous medical events. The patient showed no evidence of chills or fever and no reported chest pain, palpitation or significant shortness of breath this morning. No reported active GI bleeding. Today's lab showed hemoglobin of 8.3, hematocrit 26 with normal platelet count with CO2 content of 31 indicative of respiratory alkalosis, BUN 32, creatinine of 0.8. Blood glucose level 145, calcium 10.5, alkaline phosphatase 141, albumin 2.6, total protein 5.4 PHYSICAL EXAMINATION: GENERAL: A 77-year-old male. VITAL SIGNS: Afebrile with pulse of 88, respiratory rate 20 to 22, blood pressure of 132/80. HEENT: Showed pale, dry oral mucous membrane. Nonicteric sclerae. LUNGS: Few scattered crepitation. Decreased air entry at bases. HEART: Positive S1 and S2. ABDOMEN: Soft with mild distention and mild generalized tenderness. No mass or organomegaly. No rebound tenderness or guarding. RECTAL: The patient refused. EXTREMITIES: Without significant clubbing, cyanosis or edema. NEUROLOGIC: No reported new neurological deficits, sensory or motor. IMPRESSION: 1. Dysphagia, failure to thrive with hypoproteinemia, hypoalbuminemia with malnutrition. 2. Dehydration. 3. Diabetes mellitus, poorly-controlled. 4. Known history of hypertension, coronary artery disease. 5. Anemia, most likely secondary to above. 6. The patient is a candidate for percutaneous endoscopic gastrostomy insertion, family refusing so far. 7. Electrolyte imbalance, gradually improving. 8. Reported history of hyperlipidemia, myocardial infarction with recent change of mental status. SUGGESTIONS: 1. Continue current management. 2. Central hyperalimentation. 3. No further aggressive GI workup in the meantime as per family statement. Further recommendation to follow. Sangeeta Carey MD [facility] # [id number]
[2018-04-09] MEDS: (Lantus) Insulin Glargine, Recombinant SC SCH (22:08)
[2018-04-10] MEDS: Acetaminophen 650mg/20.3ml solution UD PO PRN ×3 (00:16→11:08)
[2018-04-10] MEDS: (Novolin R) Insulin Human Regular 100 units/ml vial SC SCH ×3 (01:08→12:05)
[2018-04-10 07:54] VITALS: RESP 18; O2SAT 100
[2018-04-10] MEDS: Sucralfate 1 gm/10 ml Oral Susp UD PO SCH ×2 (09:44→13:51)
--- NOTE | 2018-04-10 12:57 | CP.PCM.PN ---
Subjective - Date & Time of Evaluation Date of Evaluation: 04/10/18 Time of Evaluation: 12:00 - Subjective Subjective: Patient seen today, awake, alert, NAD , c/o generalized pain , tolerating puree diet a febrile Objective - Vital Signs/Intake and Output Vital Signs (last 24 hours): Temp Pulse Resp BP Pulse Ox 98.5 F 78 18 104/64 100 04/10/18 07:00 04/10/18 09:42 04/10/18 07:00 04/10/18 09:42 04/10/18 07:00 Intake and Output: 04/10/18 04/10/18 06:59 18:59 Intake Total 320 240 Output Total 400 Balance -80 240 - Medications Medications: Current Medications Acetaminophen (Tylenol 650mg/20.3ml Solution Ud) 650 mg PO Q4H PRN PRN Reason: Pain, moderate (4-7) Last Admin: 04/10/18 11:08 Dose: 650 mg Ascorbic Acid (Vitamin C 500 Mg Tab) 500 mg PO DAILY [facility] Last Admin: 04/10/18 09:44 Dose: 500 mg Dextrose (Dextrose 50% Inj) 0 ml IV STAT PRN; Protocol PRN Reason: Hypoglycemia Protocol Dextrose (Glutose 15) 0 gm PO ONCE PRN; Protocol PRN Reason: Hypoglycemia Protocol Escitalopram Oxalate (Lexapro) 5 mg PO DAILY [facility] Last Admin: 04/10/18 09:44 Dose: 5 mg Glucagon (Glucagen Diagnostic Kit) 0 mg IM STAT PRN; Protocol PRN Reason: Hypoglycemia Protocol Heparin Sodium (Porcine) (Heparin) 5,000 units SC Q12H [facility] Last Admin: 04/10/18 05:42 Dose: 5,000 units Insulin Glargine (Lantus) 10 unit SC HS [facility] Last Admin: 04/09/18 22:08 Dose: 10 u Insulin Human Regular (Novolin R) 0 unit SC Q6 [facility] PRN Reason: Protocol Last Admin: 04/10/18 12:05 Dose: 4 units Midodrine (Proamatine) 2.5 mg PO TID [facility] Last Admin: 04/10/18 09:44 Dose: 2.5 mg Pantoprazole Sodium (Protonix Inj) 40 mg IVP DAILY [facility] Last Admin: 04/10/18 09:44 Dose: 40 mg Sucralfate (Carafate Oral Susp) 1 gm PO QID [facility] Last Admin: 04/10/18 09:44 Dose: 1 gm Zinc Sulfate (Zinc Sulfate 220 Mg Cap) 220 mg PO DAILY [facility] Last Admin: 04/10/18 09:44 Dose: 220 mg Zolpidem Tartrate (Ambien) 5 mg PO HS PRN PRN Reason: Insomnia Last Admin: 04/07/18 23:06 Dose: 5 mg - Labs Labs: 04/09/18 04:34 04/09/18 04:34 PT 10.6 SECONDS (9.7-12.2) 04/03/18 22:35 INR 1.0 04/03/18 22:35 APTT 24 SECONDS (21-34) 04/03/18 22:35 - Constitutional Appears: No Acute Distress - Respiratory Exam Respiratory Exam: Decreased Breath Sounds, NORMAL BREATHING PATTERN - Cardiovascular Exam Cardiovascular Exam: REGULAR RHYTHM, +S1, +S2 - Neurological Exam Neurological Exam: Alert, Awake Assessment and Plan - Assessment and Plan (Free Text) Assessment: A/P 77yo M. PMHx HTN, dyslipidemia, GERD, DM type 2, CAD x 3v, [place], perforated peptic ulcer s/p ex-lap with rachelle patch repair sent from correction for AMS , admitted to ICU for hyperglycemia, dehydration, and hypercarbia after stabilized in ICU and patient transferred to floor Patient passed swallow eval and puree diet started and tolerating well D/w Dr. Siddiqui, patient cleared for discharge back to [facility] today and hospice can evaluate patient at [facility] SW/ CM will contact family and arrange transportation
--- NOTE | 2018-04-10 15:58 | CP.PCM.PN ---
Subjective - Date & Time of Evaluation Date of Evaluation: 04/09/18 Time of Evaluation: 19:30 - Subjective Subjective: Patient examined in bed alert, and oriented X 3, with speech that is clear. Patient complains of general pain trough out his body. When asked to describe pain , patient says" my stomach hurts, my back hurts, everything hurts". Patient given Tylenol 650 mg for pain. NGT out. Patient swallows well. Objective - Vital Signs/Intake and Output Vital Signs (last 24 hours): Temp Pulse Resp BP Pulse Ox 98.5 F 79 18 107/61 100 04/10/18 07:00 04/10/18 13:49 04/10/18 07:00 04/10/18 13:49 04/10/18 07:00 Intake and Output: 04/10/18 04/10/18 06:59 18:59 Intake Total 320 360 Output Total 400 300 Balance -80 60 - Medications Medications: Current Medications Acetaminophen (Tylenol 650mg/20.3ml Solution Ud) 650 mg PO Q4H PRN PRN Reason: Pain, moderate (4-7) Last Admin: 04/10/18 11:08 Dose: 650 mg Ascorbic Acid (Vitamin C 500 Mg Tab) 500 mg PO DAILY [facility] Last Admin: 04/10/18 09:44 Dose: 500 mg Dextrose (Dextrose 50% Inj) 0 ml IV STAT PRN; Protocol PRN Reason: Hypoglycemia Protocol Dextrose (Glutose 15) 0 gm PO ONCE PRN; Protocol PRN Reason: Hypoglycemia Protocol Escitalopram Oxalate (Lexapro) 5 mg PO DAILY [facility] Last Admin: 04/10/18 09:44 Dose: 5 mg Glucagon (Glucagen Diagnostic Kit) 0 mg IM STAT PRN; Protocol PRN Reason: Hypoglycemia Protocol Heparin Sodium (Porcine) (Heparin) 5,000 units SC Q12H [facility] Last Admin: 04/10/18 05:42 Dose: 5,000 units Insulin Glargine (Lantus) 10 unit SC HS [facility] Last Admin: 04/09/18 22:08 Dose: 10 u Insulin Human Regular (Novolin R) 0 unit SC Q6 KAROLINE PRN Reason: Protocol Last Admin: 04/10/18 12:05 Dose: 4 units Midodrine (Proamatine) 2.5 mg PO TID [facility] Last Admin: 04/10/18 13:50 Dose: 2.5 mg Pantoprazole Sodium (Protonix Inj) 40 mg IVP DAILY [facility] Last Admin: 04/10/18 09:44 Dose: 40 mg Sucralfate (Carafate Oral Susp) 1 gm PO QID [facility] Last Admin: 04/10/18 13:51 Dose: 1 gm Zinc Sulfate (Zinc Sulfate 220 Mg Cap) 220 mg PO DAILY [facility] Last Admin: 04/10/18 09:44 Dose: 220 mg Zolpidem Tartrate (Ambien) 5 mg PO HS PRN PRN Reason: Insomnia Last Admin: 04/07/18 23:06 Dose: 5 mg - Labs Labs: 04/09/18 04:34 04/09/18 04:34 PT 10.6 SECONDS (9.7-12.2) 04/03/18 22:35 INR 1.0 04/03/18 22:35 APTT 24 SECONDS (21-34) 04/03/18 22:35 Assessment and Plan (1) Hyperosmolar non-ketotic state in patient with type 2 diabetes mellitus Status: Acute (2) Elevated BUN Status: Acute (3) Hyperglycemia Status: Acute (4) Lethargy Status: Acute (5) CAD (coronary artery disease) Status: Acute (6) Hypotension (arterial) Status: Acute
--- NOTE | 2018-04-10 15:58 | CP.PCM.DIS ---
Provider - Provider Date of Admission: 04/03/18 23:39 Attending physician: Alex Siddiqui MD Time Spent in preparation of Discharge (in minutes): 45 Diagnosis - Discharge Diagnosis (1) Hyperosmolar non-ketotic state in patient with type 2 diabetes mellitus Status: Acute (2) Elevated BUN Status: Acute (3) Hyperglycemia Status: Acute (4) Lethargy Status: Acute (5) CAD (coronary artery disease) Status: Acute (6) Hypotension (arterial) Status: Acute Hospital Course - Lab Results Lab Results: Micro Results 04/09/18 06:12 Naris MRSA Culture - Final MRSA NOT DETECTED 04/04/18 06:41 Blood Blood Culture - Final NO GROWTH AFTER 5 DAYS 04/04/18 06:41 Blood Gram Stain - Final TEST NOT PERFORMED 04/04/18 06:38 Blood Blood Culture - Final NO GROWTH AFTER 5 DAYS 04/04/18 06:38 Blood Gram Stain - Final TEST NOT PERFORMED 04/04/18 00:23 Urine,Catheterized Urine Culture - Final No Growth (<1,000 CFU/ML) 04/04/18 05:37 Nose MRSA Culture (Admit) - Final MRSA NOT DETECTED Most Recent Lab Values WBC 8.7 K/uL (4.8-10.8) 04/09/18 04:34 RBC 3.05 Mil/uL (4.40-5.90) L 04/09/18 04:34 Hgb 8.3 g/dL (12.0-18.0) L 04/09/18 04:34 Hct 26.0 % (35.0-51.0) L 04/09/18 04:34 MCV 85.4 fL (80.0-94.0) 04/09/18 04:34 MCH 27.2 pg (27.0-31.0) 04/09/18 04:34 MCHC 31.8 g/dL (33.0-37.0) L 04/09/18 04:34 RDW 18.8 % (11.5-14.5) H 04/09/18 04:34 Plt Count 192 K/uL (130-400) 04/09/18 04:34 MPV 10.2 fL (7.2-11.7) 04/09/18 04:34 Neut % (Auto) 63.6 % (50.0-75.0) 04/07/18 06:14 Lymph % (Auto) 25.0 % (20.0-40.0) 04/07/18 06:14 [place] % (Auto) 3.5 % (0.0-10.0) 04/07/18 06:14 Eos % (Auto) 7.1 % (0.0-4.0) H 04/07/18 06:14 Baso % (Auto) 0.8 % (0.0-2.0) 04/07/18 06:14 Neut # (Auto) 6.0 K/uL (1.8-7.0) 04/07/18 06:14 Lymph # (Auto) 2.4 K/uL (1.0-4.3) 04/07/18 06:14 [place] # (Auto) 0.3 K/uL (0.0-0.8) 04/07/18 06:14 Eos # (Auto) 0.7 K/uL (0.0-0.7) 04/07/18 06:14 Baso # (Auto) 0.1 K/uL (0.0-0.2) 04/07/18 06:14 PT 10.6 SECONDS (9.7-12.2) 04/03/18 22:35 INR 1.0 04/03/18 22:35 APTT 24 SECONDS (21-34) 04/03/18 22:35 D-Dimer, Quantitative 1665 ng/mlDDU (0-243) H 04/03/18 22:35 Puncture Site R rad 04/03/18 23:45 pCO2 37 mm/Hg (35-45) 04/03/18 23:45 pO2 25 mm/Hg (30-55) L 04/04/18 00:37 HCO3 25.2 mmol/L (21-28) 04/03/18 23:45 ABG pH 7.43 (7.35-7.45) 04/03/18 23:45 ABG Total CO2 25.7 mmol/L (22-28) 04/03/18 23:45 ABG O2 Saturation 99.0 % (95-98) H 04/03/18 23:45 ABG Base Excess 0.4 mmol/L (-2.0-3.0) 04/03/18 23:45 ABG Hemoglobin 9.8 g/dL (11.7-17.4) L 04/03/18 23:45 ABG Carboxyhemoglobin 1.6 % (0.5-1.5) H 04/03/18 23:45 POC ABG HHb (Measured) 1.0 % (0.0-5.0) 04/03/18 23:45 ABG Methemoglobin 1.5 % (0.0-3.0) 04/03/18 23:45 Eyal Test Pos 04/03/18 23:45 VBG pH 7.32 (7.32-7.43) 04/04/18 00:37 VBG pCO2 58 mmHg (40-60) 04/04/18 00:37 VBG HCO3 25.2 mmol/L 04/04/18 00:37 VBG Total CO2 31.7 mmol/L (22-28) H 04/04/18 00:37 VBG O2 Sat (Calc) 42.2 % (40-65) 04/04/18 00:37 VBG Base Excess 2.4 mmol/L (0.0-2.0) H 04/04/18 00:37 VBG Potassium 4.6 mmol/L (3.6-5.2) 04/04/18 00:37 Hgb O2 Saturation 95.9 % (95.0-98.0) 04/03/18 23:45 Sodium 150.0 mmol/l (132-148) H 04/04/18 00:37 Chloride 110.0 mmol/L (98-107) H 04/04/18 00:37 Glucose 740 mg/dl (75-110) H* D 04/04/18 00:37 Lactate 2.7 mmol/L (0.7-2.1) H 04/04/18 00:37 Liter Flow 2.0 04/03/18 23:45 Crit Value Called To Linda ross rn 04/04/18 00:37 Crit Value Called By Paulina worley rt 04/04/18 00:37 Crit Value Read Back Y 04/04/18 00:37 Blood Gas Notified Time 46 04/04/18 00:37 Sodium 144 mmol/L (132-148) 04/09/18 04:34 Potassium 4.7 mmol/L (3.6-5.2) 04/09/18 04:34 Chloride 108 mmol/L (98-107) H 04/09/18 04:34 Carbon Dioxide 31 mmol/L (22-30) H 04/09/18 04:34 Anion Gap 10 (10-20) 04/09/18 04:34 BUN 32 mg/dL (9-20) H 04/09/18 04:34 Creatinine 0.8 mg/dL (0.8-1.5) 04/09/18 04:34 Est GFR ( Amer) > 60 04/09/18 04:34 Est GFR (Non-Af Amer) > 60 04/09/18 04:34 POC Glucose (mg/dL) 260 mg/dL (65-110) H 04/10/18 11:02 Random Glucose 102 mg/dL (75-110) 04/09/18 04:34 Lactic Acid 1.6 mmol/L (0.7-2.1) 04/03/18 22:35 Calcium 10.5 mg/dl (8.6-10.4) H 04/09/18 04:34 Phosphorus 2.5 mg/dL (2.5-4.5) 04/07/18 06:14 Magnesium 1.6 mg/dL (1.6-2.3) 04/07/18 06:14 Total Bilirubin 0.1 mg/dL (0.2-1.3) L 04/09/18 04:34 AST 26 U/L (17-59) 04/09/18 04:34 ALT 27 U/L (21-72) 04/09/18 04:34 Alkaline Phosphatase 141 U/L (38-126) H D 04/09/18 04:34 Troponin I 0.1220 ng/mL (0.00-0.120) H* 04/03/18 21:51 C-React Prot High Sens 9.62 mg/L (1.00-3.00) H 04/03/18 22:35 NT-Pro-B Natriuret Pep 1220 pg/mL (0-900) H 04/03/18 21:51 Total Protein 5.4 g/dL (6.3-8.3) L 04/09/18 04:34 Albumin 2.6 g/dL (3.5-5.0) L 04/09/18 04:34 Globulin 2.8 gm/dL (2.2-3.9) 04/09/18 04:34 Albumin/Globulin Ratio 0.9 (1.0-2.1) L 04/09/18 04:34 Procalcitonin 0.07 NG/ML (0.19-0.49) L 04/03/18 22:35 Plasma Cortisol PM 40.3 ug/dL (1.7-14.1) H 04/03/18 22:35 Venous Blood Potassium 4.6 mmol/L (3.6-5.2) 04/04/18 00:37 Urine Color Yellow (YELLOW) 04/04/18 00:23 Urine Clarity Clear (Clear) 04/04/18 00:23 Urine pH 5.0 (5.0-8.0) 04/04/18 00:23 Ur Specific [place] 1.026 (1.003-1.030) 04/04/18 00:23 Urine Protein Negative mg/dL (NEGATIVE) 04/04/18 00:23 Urine Glucose (UA) 3+ mg/dL (Normal) H 04/04/18 00:23 Urine Ketones Trace mg/dL (NEGATIVE) 04/04/18 00:23 Urine Blood Negative (NEGATIVE) 04/04/18 00:23 Urine Nitrate Negative (NEGATIVE) 04/04/18 00:23 Urine Bilirubin Negative (NEGATIVE) 04/04/18 00:23 Urine Urobilinogen Normal mg/dL (0.2-1.0) 04/04/18 00:23 Ur Leukocyte Esterase Neg [place]/uL (Negative) 04/04/18 00:23 Urine WBC (Auto) 1 /hpf (0-5) 04/04/18 00:23 B-Hydroxybutyrate 0.69 mM (0.02-0.27) H 04/05/18 10:56 - Hospital Course Hospital Course: A/P 77yo M. PMHx HTN, dyslipidemia, GERD, DM type 2, CAD x 3v, MO, perforated peptic ulcer s/p ex-lap with rachelle patch [facility] , admitted to ICU for hyperglycemia, dehydration, and hypercarbia after stabilized in ICU and patient transferred to floor Patient passed swallow eval and puree diet started and tolerating well patient cleared for discharge back to [facility] today and hospice can evaluate patient at [facility] SW/ CM will contact family and arrange transportation Discharge Exam - Head Exam Head Exam: ATRAUMATIC - Eye Exam Eye Exam: EOMI, Normal appearance, PERRL Pupil Exam: NORMAL ACCOMODATION, PERRL - ENT Exam ENT Exam: Mucous Membranes Moist - Respiratory Exam Respiratory Exam: Clear to PA & Lateral, NORMAL BREATHING PATTERN - Cardiovascular Exam Cardiovascular Exam: REGULAR RHYTHM, +S1, +S2 - GI/Abdominal Exam GI & Abdominal Exam: Normal Bowel Sounds - Additional Findings Additional findings: HE IS AAOX 3 C/O GENERALIZED WEAKNESS Discharge Plan - Follow Up Plan Condition: CRITICAL Disposition: SNF FAC W/PLAN READMIS Instructions: Heart Failure, Adult (DC), Dehydration, Adult (DC), Heart Attack (DC), Coronary Heart Disease (DC), Pureed Diet Additional Instructions: Please call Dr. Siddiqui upon patient arrival to the Facility Please call [facility] to evaluate patient if eligible for hospice Please continue with puree diet with honey thick liquid with HOB elevated 45 and mouth care after feeding , with strict aspiration precautions Referrals: Alex Siddiqui MD [Staff Provider] -
[2018-04-10 17:14] VITALS: BP 130/80; TEMP 98.2
[2018-04-10 17:16] VITALS: PULSE 85
== END 2018-04-10 17:18 | DRG 637 ==
LOC: C.ER 21:15 → C.9I 23:39 → C.6T 04-09 05:28
PROVIDERS: ADMIT Internal Medicine; ATTEND Internal Medicine
PROC: 3E0G76Z Introduction of Nutritional Substance into Upper GI, Via Natural or Artificial Opening (ICD-10-PCS; principal; 2018-04-04)
PROC: 0DH67UZ Insertion of Feeding Device into Stomach, Via Natural or Artificial Opening (ICD-10-PCS; 2018-04-04)
DX: E11.00 Type 2 diabetes mellitus with hyperosmolarity without nonketotic hyperglycemic-hyperosmolar coma (NKHHC) (principal); E43 Unspecified severe protein-calorie malnutrition; I21.4 Non-ST elevation (NSTEMI) myocardial infarction; G93.41 Metabolic encephalopathy; E87.4 Mixed disorder of acid-base balance; I50.30 Unspecified diastolic (congestive) heart failure; E87.0 Hyperosmolality and hypernatremia; R64 Cachexia; R57.9 Shock, unspecified; D63.8 Anemia in other chronic diseases classified elsewhere; E77.8 Other disorders of glycoprotein metabolism; E83.39 Other disorders of phosphorus metabolism; E83.42 Hypomagnesemia; E86.0 Dehydration; E86.1 Hypovolemia; I11.0 Hypertensive heart disease with heart failure; I25.10 Atherosclerotic heart disease of native coronary artery without angina pectoris; I45.10 Unspecified right bundle-branch block; K21.9 Gastro-esophageal reflux disease without esophagitis; R94.4 Abnormal results of kidney function studies; L89.619 Pressure ulcer of right heel, unspecified stage; L89.629 Pressure ulcer of left heel, unspecified stage; R13.10 Dysphagia, unspecified; R62.7 Adult failure to thrive; R32 Unspecified urinary incontinence; K28.9 Gastrojejunal ulcer, unspecified as acute or chronic, without hemorrhage or perforation; R53.1 Weakness; E78.5 Hyperlipidemia, unspecified; E78.00 Pure hypercholesterolemia, unspecified; M19.90 Unspecified osteoarthritis, unspecified site; Z66 Do not resuscitate; Z51.5 Encounter for palliative care; Z96.652 Presence of left artificial knee joint; Z86.711 Personal history of pulmonary embolism; Z87.891 Personal history of nicotine dependence; I25.2 Old myocardial infarction

== ENCOUNTER 2018-04-18 04:38 | Inpatient (IN) | payer MEDICARE ==
[2018-04-18 04:38] VITALS: PULSE 105; BMI 26.4
--- NOTE | 2018-04-18 05:08 | C.PDOC ---
History Of Present Illness [place] for [place] pain and some nausea for about 3 days. Pt had a perforated ulcer with a rachelle patch in december No f/c/n/v. patient states that he is a DNR/DNI. Dull, aching pain. Time Seen by Provider: 04/18/18 05:08 Chief Complaint (Nursing): Abdominal Pain Past Medical History Reviewed: Historical Data, Nursing Documentation, Vital Signs Vital Signs: Last Vital Signs Temp 98 F 04/18/18 04:48 Pulse 107 H 04/18/18 06:05 Resp 14 04/18/18 06:05 BP 110/72 04/18/18 06:05 Pulse Ox 99 04/18/18 06:13 - Medical History PMH: Arthritis, HTN, Hypercholesterolemia, Hyperlipidemia, Pulmonary Embolism Denies: Chronic Kidney Disease - [facility] Procedures ASSISTANCE WITH RESPIRATORY VENTILATION, 24-96 HRS, CPAP (12/22/17) DRAINAGE OF ABDOMINAL WALL WITH DRAIN DEV, OPEN APPROACH (12/22/17) FLUOROSCOPY OF LEFT HEART USING OTHER CONTRAST (12/22/17) FLUOROSCOPY OF MULTIPLE CORONARY ARTERIES USING OTH CONTRAST (12/22/17) INSERT OF INFUSION PUMP INTO ABD SUBCU/FASCIA, OPEN APPROACH (12/22/17) INSERTION OF FEEDING DEVICE INTO STOMACH, VIA OPENING (04/03/18) INSERTION OF INFUSION DEV INTO SUP VENA CAVA, PERC APPROACH (01/26/18) INSERTION OF INFUSION DEVICE INTO LOWER VEIN, PERC APPROACH (01/26/18) INSPECTION OF UPPER INTESTINAL TRACT, ENDO (01/26/18) INTRODUCTION OF ANALG/HYPNOT/SEDAT INTO SUBCU, PERC APPROACH (12/22/17) INTRODUCTION OF NUTRITIONAL INTO UP GI, VIA OPENING (04/03/18) MEASURE OF CARDIAC SAMPL & PRESSURE, L HEART, PERC APPROACH (12/22/17) SUPPLEMENT DUODENUM WITH AUTOL SUB, OPEN APPROACH (12/22/17) Family History: States: No Known Family Hx - Social History Hx Tobacco Use: No Hx Alcohol Use: No Hx Substance Use: No - Immunization History Hx Tetanus Toxoid Vaccination: No Hx Influenza Vaccination: Yes Hx Pneumococcal Vaccination: Yes Review Of Systems Constitutional: Negative for: Fever, Chills Eyes: Negative for: Vision Change ENT: Negative for: Throat Pain Cardiovascular: Negative for: Chest Pain Respiratory: Negative for: Shortness of Breath Gastrointestinal: Positive for: Nausea, Abdominal Pain Genitourinary: Negative for: Dysuria Musculoskeletal: Negative for: Back Pain Skin: Negative for: Rash Neurological: Positive for: Weakness (generalized) Psych: Negative for: Anxiety, Depression Physical Exam - Physical Exam Appears: Non-toxic Skin: Warm, Dry, Pale Head: Normacephalic Eye(s): bilateral: Normal Inspection Oral Mucosa: Dry Lips: Other (dry) Neck: Supple Chest: Symmetrical Cardiovascular: Rhythm Regular (tachy) Respiratory: No Rales, Rhonchi, No Wheezing Gastrointestinal/Abdominal: Bowel Sounds (tympanic to percussion), Soft, Tenderness, No Distention, No Guarding, Other (surgical scaar) Back: No CVA Tenderness Extremity: No Pedal Edema Extremity: Bilateral: Atraumatic Pulses: Left Dorsalis Pedis: Normal, Right Dorsalis Pedis: Normal Neurological/Psych: Oriented x3 Gait: Unable To Assess ED Course And Treatment - Laboratory Results Result Diagrams: 04/18/18 05:36 04/18/18 05:36 ECG: Interpreted By Me, Viewed By Me ECG Rhythm: Sinus Tachycardia (109), R BBB, Nonspecific Changes O2 Sat by Pulse Oximetry: 99 Pulse Ox Interpretation: Normal Disposition Counseled Patient/Family Regarding: Studies Performed, Diagnosis - Disposition Referrals: Alex Siddiqui MD [Primary Care Provider] - Disposition Time: 05:08 Condition: FAIR Forms: [facility] (Luxembourgish) - Clinical Impression Clinical Impression: Abdominal pain Physician Patient Turnover Patient Signed Over To: Jose Cruz Medrano Handoff Comments: pending ct scan and dispostion
[2018-04-18] MEDS ORDERED: Sodium Chloride 0.9% 1,000 ML IV ONE (05:10)
[2018-04-18] MEDS ORDERED: Sodium Chloride 0.9% 1,000 ML ONE (05:20)
[2018-04-18 05:25] LABS: VENOUS BLOOD GAS BASE EXCESS 7.3 mmol/L (0.0-2.0); VENOUS BLOOD GAS PCO2 53 mmHg (40-60); VENOUS BLOOD GAS PO2 30 mm/Hg (30-55); VENOUS BLOOD PH 7.41 (7.32-7.43)
[2018-04-18 05:40] LABS: BASO % 0.1 % (0.0-2.0); HEMOGLOBIN 9.7 g/dL (12.0-18.0); LYMPH # 0.4 K/uL (1.0-4.3); LYMPH % 4.6 % (20.0-40.0); MEAN CELL VOLUME 86.1 fL (80.0-94.0); MEAN CORPUSCULAR HEMOGLOBIN 27.5 pg (27.0-31.0); MEAN CORPUSCULAR HGB CONC 31.9 g/dL (33.0-37.0); MEAN PLATELET VOLUME 8.3 fL (7.2-11.7); MONO # 0.2 K/uL (0.0-0.8); MONO % 2.1 % (0.0-10.0); NEUT # 9.1 K/uL (1.8-7.0); NEUT % 93.2 % (50.0-75.0); PLATELET COUNT 360 K/uL (130-400); RBC 3.54 Mil/uL (4.40-5.90); RED CELL DISTRIBUTION WIDTH 18.2 % (11.5-14.5); WHITE BLOOD COUNT 9.8 K/uL (4.8-10.8)
[2018-04-18 05:42] LABS: URINE BACTERIA RARE (<OCC); URINE BILIRUBIN NEGATIVE (NEGATIVE); URINE BLOOD NEGATIVE (NEGATIVE); URINE CLARITY Hazy (Clear); URINE COLOR Yellow (YELLOW); URINE GLUCOSE (UA) 3+ mg/dL (Normal); URINE LEUKOCYTE ESTERASE NEG Leu/uL (Negative); URINE PROTEIN 1+ mg/dL (NEGATIVE); URINE UROBILINOGEN NORMAL mg/dL (0.2-1.0)
[2018-04-18 05:52] LABS: PROTHROMBIN TIME 10.7 SECONDS (9.7-12.2)
[2018-04-18 05:54] LABS: ALBUMIN 3.5 g/dL (3.5-5.0); ALT/SGPT 12 U/L (21-72); AST/SGOT 26 U/L (17-59); BLOOD UREA NITROGEN 21 mg/dL (9-20); CALCIUM 11.4 mg/dl (8.6-10.4); GFR NON-AFRICAN AMERICAN > 60; LIPASE 137 U/L (23-300)
[2018-04-18] MEDS ORDERED: Iodixanol 320 MG/ML 100 ML BOTTLE IV ONE (06:35)
[2018-04-18 06:55] LABS: ANISOCYTOSIS SLIGHT; LYMPHOCYTE 6 % (20-40); MONOCYTE 4 % (0-10); NEUTROPHIL 90 % (50-75); PLATELET ESTIMATE NORMAL (NORMAL); POIKILOCYTOSIS SLIGHT; TOTAL CELLS COUNTED 100
--- NOTE | 2018-04-18 08:27 | RAD ---
Date of service: 04/18/2018 PROCEDURE: CHEST RADIOGRAPH, 1 VIEW HISTORY: abd pain COMPARISON: 04/06/2018 FINDINGS: LUNGS: Clear. PLEURA: Minimal blunting of both costophrenic angles may reflect pleural effusion or chronic pleural thickening. CARDIOVASCULAR: Normal. OSSEOUS STRUCTURES: No significant abnormalities. VISUALIZED UPPER ABDOMEN: Normal. OTHER FINDINGS: None. IMPRESSION: Possible very small bilateral pleural effusion. No acute infiltrate.
[2018-04-18] MEDS ORDERED: (Novolin R) Insulin Human Regular 100 units/ml vial IV ONE (08:33)
[2018-04-18] MEDS ORDERED: (Novolin R) Insulin Human Regular 100 units/ml vial ONE (09:43)
--- NOTE | 2018-04-18 11:14 | CT ---
Date of service: 04/18/2018 PROCEDURE: CT Abdomen and Pelvis with contrast HISTORY: abd pain, s/p gastric repair COMPARISON: 01/26/2018 TECHNIQUE: Contrast dose: 100 mL Visipaque 320 Radiation dose: Total exam DLP = 465.19 mGy-cm. This CT exam was performed using one or more of the following dose reduction techniques: Automated exposure control, adjustment of the mA and/or kV according to patient size, and/or use of iterative reconstruction technique. FINDINGS: LOWER THORAX: Right lower lobe subsegmental atelectasis. LIVER: Normal size, contour and attenuation. No mass. No biliary ductal dilatation. There is intrahepatic biliary gas noted in the left lobe of the liver, of uncertain etiology. This is seen in conjunction with a small amount of gas within the gallbladder lumen. Possible prior sphincterotomy or the result of gallstone passage. Unlikely the result of cholangitis. GALLBLADDER AND BILE DUCTS: Small amount of gas seen within the gallbladder lumen. No calcified gallstones. No mural thickening or pericholecystic fluid. PANCREAS: Unremarkable. No gross lesion or ductal dilatation. SPLEEN: Unremarkable. ADRENALS: Unremarkable. No mass. KIDNEYS AND URETERS: Unremarkable. No hydronephrosis. No solid mass. VASCULATURE: Unremarkable. No aortic aneurysm. BOWEL: Unremarkable stomach. No evidence of prior gastric surgery on this examination. No evidence of bowel obstruction. Mild retained fecal matter. No abnormal bowel loops. APPENDIX: Appendix not identified. No secondary findings to suggest acute appendicitis. PERITONEUM: Previously identified upper abdominal fluid collection cephalad to the pancreas is no longer evident. Likely postoperative collection that has resolved. LYMPH NODES: Unremarkable. No enlarged lymph nodes. BLADDER: Unremarkable. REPRODUCTIVE: Unremarkable prostate BONES: No acute fracture. Grade 1-2 anterolisthesis at L5-S1, degenerative in origin. OTHER FINDINGS: None. IMPRESSION: Small amount of intrahepatic biliary gas in the left lobe of the liver and small amount of gas seen within the gallbladder lumen, of uncertain etiology. This represents interval change since the prior examination of 01/26/2018. Differential diagnosis includes status post sphincterotomy, status post passage of gallstone recent, or less likely, an infectious/inflammatory process with gas producing organism. Resolution of previously identified upper abdominal fluid collection. Additional minor findings as above. The preliminary findings for this examination were reported by [employer] at 8:06 a.m. on 04/18/2018. There is concurrence of this report with the preliminary findings.
[2018-04-18] MEDS: metroNIDAZOLE IV 500 mg/100 ml 500 MG/100 ML BAG IVPB SCH ×2 (13:39→21:50)
[2018-04-18] MEDS: Sodium Chloride 0.9% 1,000 ML IV SCH (13:40)
[2018-04-18] MEDS: (Novolin R) Insulin Human Regular 100 units/ml vial SC SCH ×2 (17:57→21:50)
--- NOTE | 2018-04-18 18:08 | CP.PCM.CON ---
<Yennifer Lugo - Last Filed: 04/18/18 18:19> History of Present Illness - History of Present Illness History of Present Illness: GENERAL SURGERY CONSULT NOTE FOR DR. VILLA 77yo M with PMHx of perforated duodenal ulcer 12/2017 s/p exlap and rachelle patch repair, CAD s/p cardiac cath, chronic constipation presents to [facility] from [facility] with chronic generalized pain with abdominal pain. The pain has been intermittent over the past 4 months since the surgery. Nothing exacerbates the pain. Pain is unrelated to eating. Patient was recently admitted from 04/03 to 04/10 for failure to thrive, dehydration, hyperglycemia. Pt passed swallow eval with pureed diet. PMH: CAD w/ tripple vessel disease, HTN, HLD, DM, GERD, perforated duodenal ulcer, PE PSH: perforated duodenal ulcer s/p ex lap & rachelle patch on 12/22/17, CABG ALL: PCN SocialHx: Denies tobacco, etoh, recreational drug use Past Patient History - Infectious Disease Hx of Infectious Diseases: None - Past Medical History & Family History Past Medical History?: Yes - Past Social History Smoking Status: Former Smoker - CARDIAC Hx Cardiac Disorders: Yes Hx Hypercholesterolemia: Yes Hx Hypertension: Yes - PULMONARY Hx Respiratory Disorders: Yes Hx Pulmonary Embolism: Yes - NEUROLOGICAL Hx Neurological Disorder: Yes Hx Syncope: Yes - HEENT Hx HEENT Problems: No - RENAL Hx Chronic Kidney Disease: No - ENDOCRINE/METABOLIC Hx Diabetes Mellitus Type 2: Yes - HEMATOLOGICAL/ONCOLOGICAL Hx Blood Disorders: No - INTEGUMENTARY Hx Dermatological Problems: No - MUSCULOSKELETAL/RHEUMATOLOGICAL Hx Arthritis: Yes Hx Falls: Yes - GASTROINTESTINAL Hx Gastrointestinal Disorders: Yes Hx Gastroesophageal Reflux: Yes - GENITOURINARY/GYNECOLOGICAL Hx Genitourinary Disorders: No - PSYCHIATRIC Hx Substance Use: No - SURGICAL HISTORY Hx Surgeries: Yes Other/Comment: left knee replacement, and left nerve repair, left and right hand nerve repair, Exp.Lap 12/22/17, - ANESTHESIA Hx Anesthesia: Yes Hx Anesthesia Reactions: No Hx Malignant Hyperthermia: No Has any member of the family had a problem w/ anesthesia?: No Meds Allergies/Adverse Reactions: Allergies Allergy/AdvReac Type Severity Reaction Status Date / Time Penicillins Allergy Mild Verified 04/18/18 04:45 - Medications Medications: Current Medications Acetaminophen (Tylenol 650mg/20.3ml Solution Ud) 650 mg PO Q4H PRN PRN Reason: Pain, moderate (4-7) Ascorbic Acid (Vitamin C 500 Mg Tab) 500 mg PO DAILY [facility] Escitalopram Oxalate (Lexapro) 5 mg PO DAILY [facility] Sodium Chloride (Sodium Chloride 0.9%) 1,000 mls @ 80 mls/hr IV .[id number] [facility] Last Admin: 04/18/18 13:40 Dose: 80 mls/hr Metronidazole (Flagyl) 500 mg in 100 mls @ 100 mls/hr IVPB Q8H [facility] PRN Reason: Protocol Last Admin: 04/18/18 13:39 Dose: 100 mls/hr Insulin Human Regular (Novolin R) 0 unit SC ACHS [facility] PRN Reason: Protocol Last Admin: 04/18/18 17:57 Dose: 4 units Midodrine (Proamatine) 2.5 mg PO TID [facility] Last Admin: 04/18/18 17:57 Dose: 2.5 mg Pantoprazole Sodium (Protonix Inj) 40 mg IVP DAILY [facility] Zinc Sulfate (Zinc Sulfate 220 Mg Cap) 220 mg PO DAILY [facility] Zolpidem Tartrate (Ambien) 5 mg PO HS PRN PRN Reason: Insomnia Physical Exam - Constitutional Appears: Non-toxic, No Acute Distress, Chronically Ill - Head Exam Head Exam: ATRAUMATIC, NORMAL INSPECTION - Respiratory Exam Respiratory Exam: NORMAL BREATHING PATTERN. absent: Respiratory Distress - Cardiovascular Exam Cardiovascular Exam: +S1, +S2 - GI/Abdominal Exam GI & Abdominal Exam: Soft, Tenderness (mild generalized tenderness). absent: Distended, Rebound, Rigid - Neurological Exam Neurological exam: Alert - Psychiatric Exam Psychiatric exam: Normal Affect, Normal Mood - Skin Skin Exam: Dry, Normal Color, Warm Results - Vital Signs Recent Vital Signs: Last Vital Signs Temp 97.9 F 04/18/18 15:00 Pulse 88 04/18/18 15:00 Resp 20 04/18/18 15:00 BP 115/70 04/18/18 15:00 Pulse Ox 100 04/18/18 15:00 - Labs Result Diagrams: 04/18/18 05:36 04/18/18 05:36 Labs: Laboratory Results - last 24 hr 04/18/18 04/18/18 04/18/18 04:46 05:20 05:36 WBC 9.8 RBC 3.54 L Hgb 9.7 L Hct 30.5 L MCV 86.1 MCH 27.5 MCHC 31.9 L RDW 18.2 H Plt Count 360 D MPV 8.3 Neut % (Auto) 93.2 H Lymph % (Auto) 4.6 L [place] % (Auto) 2.1 Eos % (Auto) 0.0 Baso % (Auto) 0.1 Neut # (Auto) 9.1 H Lymph # (Auto) 0.4 L [place] # (Auto) 0.2 Eos # (Auto) 0.0 Baso # (Auto) 0.0 Neutrophils % (Manual) 90 H Lymphocytes % (Manual) 6 L Monocytes % (Manual) 4 Platelet Estimate Normal Poikilocytosis (manual Slight Anisocytosis (manual) Slight PT INR APTT pO2 30 VBG pH 7.41 VBG pCO2 53 VBG HCO3 29.6 VBG Total CO2 35.2 H VBG O2 Sat (Calc) 59.4 VBG Base Excess 7.3 H VBG Potassium 4.2 Sodium 138.0 Chloride 103.0 Glucose 351 H Lactate 1.7 Potassium Carbon Dioxide Anion Gap BUN Creatinine Est GFR ( Amer) Est GFR (Non-Af Amer) POC Glucose (mg/dL) 333 H Random Glucose Calcium Total Bilirubin AST ALT Alkaline Phosphatase Total Protein Albumin Globulin Albumin/Globulin Ratio Lipase Venous Blood Potassium 4.2 Urine Color Urine Clarity Urine pH Ur Specific [place] Urine Protein Urine Glucose (UA) Urine Ketones Urine Blood Urine Nitrate Urine Bilirubin Urine Urobilinogen Ur Leukocyte Esterase Urine WBC (Auto) Urine RBC (Auto) Urine Bacteria 04/18/18 04/18/18 04/18/18 05:36 05:36 05:36 WBC RBC Hgb Hct MCV MCH MCHC RDW Plt Count MPV Neut % (Auto) Lymph % (Auto) [place] % (Auto) Eos % (Auto) Baso % (Auto) Neut # (Auto) Lymph # (Auto) [place] # (Auto) Eos # (Auto) Baso # (Auto) Neutrophils % (Manual) Lymphocytes % (Manual) Monocytes % (Manual) Platelet Estimate Poikilocytosis (manual Anisocytosis (manual) PT 10.7 INR 1.0 APTT 32 pO2 VBG pH VBG pCO2 VBG HCO3 VBG Total CO2 VBG O2 Sat (Calc) VBG Base Excess VBG Potassium Sodium 137 Chloride 96 L Glucose Lactate Potassium 4.5 Carbon Dioxide 34 H Anion Gap 13 BUN 21 H Creatinine 0.8 Est GFR ( Amer) > 60 Est GFR (Non-Af Amer) > 60 POC Glucose (mg/dL) Random Glucose 339 H Calcium 11.4 H Total Bilirubin 0.4 AST 26 ALT 12 L D Alkaline Phosphatase 94 Total Protein 7.1 Albumin 3.5 D Globulin 3.6 Albumin/Globulin Ratio 1.0 Lipase 137 Venous Blood Potassium Urine Color Yellow Urine Clarity Hazy Urine pH 6.0 Ur Specific [place] 1.017 Urine Protein 1+ H Urine Glucose (UA) 3+ H Urine Ketones Trace Urine Blood Negative Urine Nitrate Negative Urine Bilirubin Negative Urine Urobilinogen Normal Ur Leukocyte Esterase Neg Urine WBC (Auto) 2 Urine RBC (Auto) < 1 Urine Bacteria Rare 04/18/18 04/18/18 04/18/18 09:42 10:59 17:01 WBC RBC Hgb Hct MCV MCH MCHC RDW Plt Count MPV Neut % (Auto) Lymph % (Auto) [place] % (Auto) Eos % (Auto) Baso % (Auto) Neut # (Auto) Lymph # (Auto) [place] # (Auto) Eos # (Auto) Baso # (Auto) Neutrophils % (Manual) Lymphocytes % (Manual) Monocytes % (Manual) Platelet Estimate Poikilocytosis (manual Anisocytosis (manual) PT INR APTT pO2 VBG pH VBG pCO2 VBG HCO3 VBG Total CO2 VBG O2 Sat (Calc) VBG Base Excess VBG Potassium Sodium Chloride Glucose Lactate Potassium Carbon Dioxide Anion Gap BUN Creatinine Est GFR ( Amer) Est GFR (Non-Af Amer) POC Glucose (mg/dL) 354 H 251 H 286 H Random Glucose Calcium Total Bilirubin AST ALT Alkaline Phosphatase Total Protein Albumin Globulin Albumin/Globulin Ratio Lipase Venous Blood Potassium Urine Color Urine Clarity Urine pH Ur Specific [place] Urine Protein Urine Glucose (UA) Urine Ketones Urine Blood Urine Nitrate Urine Bilirubin Urine Urobilinogen Ur Leukocyte Esterase Urine WBC (Auto) Urine RBC (Auto) Urine Bacteria Assessment & Plan - Assessment and Plan (Free Text) Assessment: 77yo M with PMHx of perforated duodenal ulcer 12/2017 s/p exlap and rachelle patch repair, CAD s/p cardiac cath, chronic constipation presents with generalized pain - CT Abd/Pelvis: no acute findings, mild retained fecal matter - No acute surgical intervention necessary - Recommend stool softeners - Discussed plan with Dr. Daisy Lugo PGY-4 <Fred Villa - Last Filed: 04/29/18 19:13> Meds - Medications Medications: Current Medications Acetaminophen (Tylenol 650mg/20.3ml Solution Ud) 650 mg PO Q4H PRN PRN Reason: Pain, moderate (4-7) Last Admin: 04/26/18 21:30 Dose: 650 mg Acetaminophen/Codeine Phosphate (Tylenol/Codeine 300 Mg/30 Mg) 2 ea PO Q4 PRN PRN Reason: Pain, moderate (4-7) Last Admin: 04/29/18 08:17 Dose: 2 ea Ascorbic Acid (Vitamin C 500 Mg Tab) 500 mg PO DAILY [facility] Last Admin: 04/29/18 10:21 Dose: 500 mg Docusate Sodium (Colace) 100 mg PO BID [facility] Last Admin: 04/29/18 17:19 Dose: 100 mg Escitalopram Oxalate (Lexapro) 10 mg PO DAILY [facility] Last Admin: 04/29/18 10:19 Dose: 10 mg Gabapentin (Neurontin) 100 mg PO TID [facility] Last Admin: 04/29/18 17:19 Dose: 100 mg Metronidazole (Flagyl) 500 mg in 100 mls @ 100 mls/hr IVPB Q8H [facility] PRN Reason: Protocol Last Admin: 04/29/18 12:30 Dose: 100 mls/hr Insulin Human Regular (Novolin R) 0 unit SC ACHS [facility] PRN Reason: Protocol Last Admin: 04/29/18 17:20 Dose: Not Given Magnesium Oxide (Mag-Ox) 400 mg PO DAILY [facility] Stop: 04/30/18 22:01 Last Admin: 04/29/18 10:19 Dose: 400 mg Midodrine (Proamatine) 2.5 mg PO TID [facility] Last Admin: 04/29/18 17:19 Dose: 2.5 mg Morphine Sulfate (Morphine) 2 mg IVP DAILY PRN PRN Reason: Pain, severe (8-10) Last Admin: 04/28/18 05:59 Dose: 2 mg Pantoprazole Sodium (Protonix Ec Tab) 40 mg PO DAILY [facility] Last Admin: 04/29/18 10:19 Dose: 40 mg Tamsulosin HCl (Flomax) 0.4 mg PO BID [facility] Last Admin: 04/29/18 17:19 Dose: 0.4 mg Zinc Sulfate (Zinc Sulfate 220 Mg Cap) 220 mg PO DAILY [facility] Last Admin: 04/29/18 10:19 Dose: 220 mg Zolpidem Tartrate (Ambien) 5 mg PO HS PRN PRN Reason: Insomnia Last Admin: 04/28/18 00:53 Dose: 5 mg Results - Vital Signs Recent Vital Signs: Last Vital Signs Temp 98.8 F 04/29/18 16:50 Pulse 90 04/29/18 16:50 Resp 20 04/29/18 16:50 BP 98/64 L 04/29/18 16:50 Pulse Ox 97 04/29/18 16:50 - Labs Result Diagrams: 04/29/18 08:58 04/29/18 08:58 Labs: Laboratory Results - last 24 hr 04/29/18 04/29/18 08:58 08:58 WBC 6.7 RBC 3.55 L Hgb 9.9 L Hct 30.2 L MCV 85.1 MCH 27.9 MCHC 32.7 L RDW 18.2 H Plt Count 259 MPV 8.4 Neut % (Auto) 62.7 Lymph % (Auto) 25.1 [place] % (Auto) 8.2 Eos % (Auto) 3.2 Baso % (Auto) 0.8 Neut # (Auto) 4.2 Lymph # (Auto) 1.7 [place] # (Auto) 0.6 Eos # (Auto) 0.2 Baso # (Auto) 0.1 Sodium 139 Potassium 4.1 Chloride 108 H Carbon Dioxide 24 Anion Gap 11 BUN 8 L Creatinine 0.7 L Est GFR ( Amer) > 60 Est GFR (Non-Af Amer) > 60 Random Glucose 238 H Calcium 9.9 Total Bilirubin 0.2 AST 15 L D ALT 23 Alkaline Phosphatase 117 Total Protein 5.4 L Albumin 2.4 L Globulin 3.0 Albumin/Globulin Ratio 0.8 L Attending/Attestation - Attestation I have personally seen and examined this patient.: Yes I have fully participated in the care of the patient.: Yes I have reviewed all pertinent clinical information: Yes Notes (Text): Pt was seen and examined at bedside Agree with above note and assessment Pt with abdominal pain and mild tenderness Labs and radiology reviewed Ass: Chronic Constipation, multiple co-morbidities Plan: Stool softner and Fleet enema c.w current mx Plan d.w pt and primary team in detail Risk and benefit explained in detail.
[2018-04-18] MEDS: Acetaminophen 650mg/20.3ml solution UD PO PRN (20:01)
--- NOTE | 2018-04-19 00:02 | CP.PCM.HP ---
History of Present Illness - History of Present Illness History of Present Illness: CC: abdominal pain, weaknessx 1 day HPI: 77yo elderly male who is longterm resident with PMHx of perforated duodenal ulcer 12/2017 s/p exlap and rachelle patch repair, CAD s/p cardiac cath, chronic constipation presents to [facility] from [facility] with chronic generalized pain with abdominal pain. The pain has been intermittent over the past 4 months since the surgery. Nothing exacerbates the pain. Pain is unrelated to eating. Patient was recently admitted from 04/03 to 04/10 for failure to thrive, dehydration, hyperglycemia. Pt passed swallow eval with pureed diet. PMH: CAD w/ tripple vessel disease, HTN, HLD, DM, GERD, perforated duodenal ulcer, PE, diabetic peripheral neuropathy PSH: perforated duodenal ulcer s/p ex lap & rachelle patch on 12/22/17, CABG ALL: PCN SocialHx: Denies tobacco, etoh, recreational drug use Present on Admission - Present on Admission Any Indicators Present on Admission: Yes Review of Systems - Review of Systems Systems not reviewed;Unavailable: Acuity of Condition, Dementia - Constitutional Constitutional: Fatigue, Lethargy, Malaise, Weakness - EENT Eyes: absent: As Per HPI, Blind Spots, Blurred Vision, Change in Vision, Decreased Night Vision, Diplopia, Discharge, Dry Eye, Exophthalmos, Floaters, Irritation, Itchy Eyes, Loss of Peripheral Vision, Pain, Photophobia, Requires Corrective Lenses, Sees Flashes, Spots in Vision, Tunnel Vision, Other Visual Disturbances, Loss of Vision, Other Ears: absent: As Per HPI, Decreased Hearing, Ear Discharge, Ear Pain, Tinnitus, Abnormal Hearing, Disequilibrium, Dizziness, Other - Cardiovascular Cardiovascular: Dyspnea - Respiratory Respiratory: absent: As Per HPI, Cough, Dyspnea, Hemoptysis, Dyspnea on Exertion , Wheezing, Snoring, Stridor, Pain on Inspiration, Chest Congestion, Excessive Mucous Production, Change in Mucous Color, Pain with Coughing, Other - Gastrointestinal Gastrointestinal: Abdominal Pain, Bloating, Change in Bowel Habits, Constipation , Nausea, Vomiting - Genitourinary Genitourinary: absent: As Per HPI, Change in Urinary Stream, Difficulty Urinating, Dysuria, Flank Pain, Hematuria, Pyuria, Nocturia, Urinary Incontinence, Urinary Frequency, Urinary Hesitance, Urinary Urgency, Voiding Freq/Small Amts, Freq UTI, Hx Renal/Bladder Calculi, Hx /Renal Surgery, Bladder Distension, Other - Musculoskeletal Musculoskeletal: Back Pain, Limited Range of Motion, Muscle Weakness, Myalgias - Integumentary Integumentary: absent: As Per HPI, Acne, Alopecia, Bleeding Lesions, Change in Hair, Change in Nails, Change in Pigmentation, Changing Lesions, Dry Skin, Erythema, Furuncle, Hirsutism, Lesions, New Lesions, Non-Healing Lesions, Photosensitivity, Pruritus, Rash, Skin Pain, Skin Ulcer, Sores, Striae, Swelling , Unusual Bruising, Wounds, Jaundice, Other - Neurological Neurological: Abnormal Gait, Dizziness Past Patient History - Infectious Disease Hx of Infectious Diseases: None - Past Medical History & Family History Past Medical History?: Yes - Past Social History Smoking Status: Former Smoker - CARDIAC Hx Cardiac Disorders: Yes Hx Hypercholesterolemia: Yes Hx Hypertension: Yes - PULMONARY Hx Respiratory Disorders: Yes Hx Pulmonary Embolism: Yes - NEUROLOGICAL Hx Neurological Disorder: Yes Hx Syncope: Yes - HEENT Hx HEENT Problems: No - RENAL Hx Chronic Kidney Disease: No - ENDOCRINE/METABOLIC Hx Diabetes Mellitus Type 2: Yes - HEMATOLOGICAL/ONCOLOGICAL Hx Blood Disorders: No - INTEGUMENTARY Hx Dermatological Problems: No - MUSCULOSKELETAL/RHEUMATOLOGICAL Hx Arthritis: Yes Hx Falls: Yes - GASTROINTESTINAL Hx Gastrointestinal Disorders: Yes Hx Gastroesophageal Reflux: Yes - GENITOURINARY/GYNECOLOGICAL Hx Genitourinary Disorders: No - PSYCHIATRIC Hx Substance Use: No - SURGICAL HISTORY Hx Surgeries: Yes Other/Comment: left knee replacement, and left nerve repair, left and right hand nerve repair, Exp.Lap 12/22/17, - ANESTHESIA Hx Anesthesia: Yes Hx Anesthesia Reactions: No Hx Malignant Hyperthermia: No Has any member of the family had a problem w/ anesthesia?: No Meds Allergies/Adverse Reactions: Allergies Allergy/AdvReac Type Severity Reaction Status Date / Time Penicillins Allergy Mild Verified 04/18/18 04:45 Physical Exam - Constitutional Appears: No Acute Distress, Confused, Cachectic, Chronically Ill - Head Exam Head Exam: ATRAUMATIC, NORMAL INSPECTION, NORMOCEPHALIC - Eye Exam Eye Exam: EOMI, Normal appearance, PERRL Pupil Exam: NORMAL ACCOMODATION, PERRL - ENT Exam ENT Exam: Mucous Membranes Moist, Normal Exam - Respiratory Exam Respiratory Exam: Clear to Auscultation Bilateral, NORMAL BREATHING PATTERN - Cardiovascular Exam Cardiovascular Exam: REGULAR RHYTHM - GI/Abdominal Exam GI & Abdominal Exam: Hypoactive Bowel Sounds, Soft, Tenderness - Neurological Exam Neurological exam: Abnormal Gait - Skin Skin Exam: Pallor Results - Vital Signs Recent Vital Signs: Last Vital Signs Temp 98.2 F 04/18/18 23:07 Pulse 89 04/18/18 23:07 Resp 20 04/18/18 23:07 BP 122/73 04/18/18 23:07 Pulse Ox 98 04/18/18 23:07 - Labs Result Diagrams: 04/18/18 05:36 04/18/18 05:36 Labs: Laboratory Results - last 24 hr 04/18/18 04/18/18 04/18/18 04:46 05:20 05:36 WBC 9.8 RBC 3.54 L Hgb 9.7 L Hct 30.5 L MCV 86.1 MCH 27.5 MCHC 31.9 L RDW 18.2 H Plt Count 360 D MPV 8.3 Neut % (Auto) 93.2 H Lymph % (Auto) 4.6 L [place] % (Auto) 2.1 Eos % (Auto) 0.0 Baso % (Auto) 0.1 Neut # (Auto) 9.1 H Lymph # (Auto) 0.4 L [place] # (Auto) 0.2 Eos # (Auto) 0.0 Baso # (Auto) 0.0 Neutrophils % (Manual) 90 H Lymphocytes % (Manual) 6 L Monocytes % (Manual) 4 Platelet Estimate Normal Poikilocytosis (manual Slight Anisocytosis (manual) Slight PT INR APTT pO2 30 VBG pH 7.41 VBG pCO2 53 VBG HCO3 29.6 VBG Total CO2 35.2 H VBG O2 Sat (Calc) 59.4 VBG Base Excess 7.3 H VBG Potassium 4.2 Sodium 138.0 Chloride 103.0 Glucose 351 H Lactate 1.7 Potassium Carbon Dioxide Anion Gap BUN Creatinine Est GFR ( Amer) Est GFR (Non-Af Amer) POC Glucose (mg/dL) 333 H Random Glucose Calcium Total Bilirubin AST ALT Alkaline Phosphatase Total Protein Albumin Globulin Albumin/Globulin Ratio Lipase Venous Blood Potassium 4.2 Urine Color Urine Clarity Urine pH Ur Specific [place] Urine Protein Urine Glucose (UA) Urine Ketones Urine Blood Urine Nitrate Urine Bilirubin Urine Urobilinogen Ur Leukocyte Esterase Urine WBC (Auto) Urine RBC (Auto) Urine Bacteria 04/18/18 04/18/18 04/18/18 05:36 05:36 05:36 WBC RBC Hgb Hct MCV MCH MCHC RDW Plt Count MPV Neut % (Auto) Lymph % (Auto) [place] % (Auto) Eos % (Auto) Baso % (Auto) Neut # (Auto) Lymph # (Auto) [place] # (Auto) Eos # (Auto) Baso # (Auto) Neutrophils % (Manual) Lymphocytes % (Manual) Monocytes % (Manual) Platelet Estimate Poikilocytosis (manual Anisocytosis (manual) PT 10.7 INR 1.0 APTT 32 pO2 VBG pH VBG pCO2 VBG HCO3 VBG Total CO2 VBG O2 Sat (Calc) VBG Base Excess VBG Potassium Sodium 137 Chloride 96 L Glucose Lactate Potassium 4.5 Carbon Dioxide 34 H Anion Gap 13 BUN 21 H Creatinine 0.8 Est GFR ( Amer) > 60 Est GFR (Non-Af Amer) > 60 POC Glucose (mg/dL) Random Glucose 339 H Calcium 11.4 H Total Bilirubin 0.4 AST 26 ALT 12 L D Alkaline Phosphatase 94 Total Protein 7.1 Albumin 3.5 D Globulin 3.6 Albumin/Globulin Ratio 1.0 Lipase 137 Venous Blood Potassium Urine Color Yellow Urine Clarity Hazy Urine pH 6.0 Ur Specific [place] 1.017 Urine Protein 1+ H Urine Glucose (UA) 3+ H Urine Ketones Trace Urine Blood Negative Urine Nitrate Negative Urine Bilirubin Negative Urine Urobilinogen Normal Ur Leukocyte Esterase Neg Urine WBC (Auto) 2 Urine RBC (Auto) < 1 Urine Bacteria Rare 04/18/18 04/18/18 04/18/18 09:42 10:59 17:01 WBC RBC Hgb Hct MCV MCH MCHC RDW Plt Count MPV Neut % (Auto) Lymph % (Auto) [place] % (Auto) Eos % (Auto) Baso % (Auto) Neut # (Auto) Lymph # (Auto) [place] # (Auto) Eos # (Auto) Baso # (Auto) Neutrophils % (Manual) Lymphocytes % (Manual) Monocytes % (Manual) Platelet Estimate Poikilocytosis (manual Anisocytosis (manual) PT INR APTT pO2 VBG pH VBG pCO2 VBG HCO3 VBG Total CO2 VBG O2 Sat (Calc) VBG Base Excess VBG Potassium Sodium Chloride Glucose Lactate Potassium Carbon Dioxide Anion Gap BUN Creatinine Est GFR ( Amer) Est GFR (Non-Af Amer) POC Glucose (mg/dL) 354 H 251 H 286 H Random Glucose Calcium Total Bilirubin AST ALT Alkaline Phosphatase Total Protein Albumin Globulin Albumin/Globulin Ratio Lipase Venous Blood Potassium Urine Color Urine Clarity Urine pH Ur Specific [place] Urine Protein Urine Glucose (UA) Urine Ketones Urine Blood Urine Nitrate Urine Bilirubin Urine Urobilinogen Ur Leukocyte Esterase Urine WBC (Auto) Urine RBC (Auto) Urine Bacteria 04/18/18 20:52 WBC RBC Hgb Hct MCV MCH MCHC RDW Plt Count MPV Neut % (Auto) Lymph % (Auto) [place] % (Auto) Eos % (Auto) Baso % (Auto) Neut # (Auto) Lymph # (Auto) [place] # (Auto) Eos # (Auto) Baso # (Auto) Neutrophils % (Manual) Lymphocytes % (Manual) Monocytes % (Manual) Platelet Estimate Poikilocytosis (manual Anisocytosis (manual) PT INR APTT pO2 VBG pH VBG pCO2 VBG HCO3 VBG Total CO2 VBG O2 Sat (Calc) VBG Base Excess VBG Potassium Sodium Chloride Glucose Lactate Potassium Carbon Dioxide Anion Gap BUN Creatinine Est GFR ( Amer) Est GFR (Non-Af Amer) POC Glucose (mg/dL) 235 H Random Glucose Calcium Total Bilirubin AST ALT Alkaline Phosphatase Total Protein Albumin Globulin Albumin/Globulin Ratio Lipase Venous Blood Potassium Urine Color Urine Clarity Urine pH Ur Specific [place] Urine Protein Urine Glucose (UA) Urine Ketones Urine Blood Urine Nitrate Urine Bilirubin Urine Urobilinogen Ur Leukocyte Esterase Urine WBC (Auto) Urine RBC (Auto) Urine Bacteria Assessment & Plan (1) Cachectic Status: Acute (2) Abdominal pain Status: Acute (3) CAD (coronary artery disease) Status: Acute (4) Dehydration Status: Acute (5) Diabetes mellitus Status: Acute
[2018-04-19] MEDS: metroNIDAZOLE IV 500 mg/100 ml 500 MG/100 ML BAG IVPB SCH ×3 (04:37→20:12)
[2018-04-19] MEDS: Sodium Chloride 0.9% 1,000 ML IV SCH ×3 (04:39→13:48)
[2018-04-19] MEDS: Acetaminophen 650mg/20.3ml solution UD PO PRN ×2 (04:41→14:24)
[2018-04-19] MEDS: (Novolin R) Insulin Human Regular 100 units/ml vial SC SCH ×4 (08:39→21:10)
[2018-04-19] MEDS: Enoxaparin 40 mg Syringe SC SCH (09:39)
[2018-04-19] MEDS ORDERED: Pantoprazole 40 mg Susp UD PO SCH (10:00)
[2018-04-20] MEDS: metroNIDAZOLE IV 500 mg/100 ml 500 MG/100 ML BAG IVPB SCH ×3 (04:44→21:25)
[2018-04-20] MEDS: Sodium Chloride 0.9% 1,000 ML IV SCH ×2 (04:45→14:57)
[2018-04-20] MEDS: (Novolin R) Insulin Human Regular 100 units/ml vial SC SCH ×4 (07:38→22:49)
[2018-04-20 07:47] LABS: BASO % 0.3 % (0.0-2.0); EOS # 0.3 K/uL (0.0-0.7); EOS % 4.4 % (0.0-4.0); HEMOGLOBIN 8.9 g/dL (12.0-18.0); LYMPH # 1.2 K/uL (1.0-4.3); LYMPH % 17.6 % (20.0-40.0); MEAN CELL VOLUME 86.1 fL (80.0-94.0); MEAN CORPUSCULAR HEMOGLOBIN 27.7 pg (27.0-31.0); MEAN CORPUSCULAR HGB CONC 32.2 g/dL (33.0-37.0); MEAN PLATELET VOLUME 8.1 fL (7.2-11.7); MONO # 0.3 K/uL (0.0-0.8); MONO % 4.9 % (0.0-10.0); NEUT # 4.9 K/uL (1.8-7.0); NEUT % 72.8 % (50.0-75.0); RBC 3.21 Mil/uL (4.40-5.90); WHITE BLOOD COUNT 6.7 K/uL (4.8-10.8)
[2018-04-20 07:54] LABS: ALB/GLOB RATIO 0.9 (1.0-2.1); ALBUMIN 2.6 g/dL (3.5-5.0); ALT/SGPT 22 U/L (21-72); AST/SGOT 22 U/L (17-59); BLOOD UREA NITROGEN 14 mg/dL (9-20); CALCIUM 10.5 mg/dl (8.6-10.4); GFR NON-AFRICAN AMERICAN > 60
[2018-04-20] MEDS: Enoxaparin 40 mg Syringe SC SCH (09:25)
[2018-04-20] MEDS: Acetaminophen 650mg/20.3ml solution UD PO PRN (09:26)
--- NOTE | 2018-04-20 17:25 | US ---
Date of service: 04/20/2018 PROCEDURE: Ultrasound of the Kidneys HISTORY: hematuria COMPARISON: None available. TECHNIQUE: Sonogram of the kidneys. FINDINGS: RIGHT KIDNEY: Measures: 4.4 x 4.2 x 8 cm. Normal in size, contour and echogenicity. No stone, solid mass lesion or hydronephrosis visualized. LEFT KIDNEY: Measures: 4 x 4.2 x 10.2 cm. Normal in size, contour and echogenicity. No stone, solid mass lesion or hydronephrosis visualized. OTHER FINDINGS: None. IMPRESSION: Unremarkable renal sonogram.
[2018-04-20 18:12] LABS: SQUAMOUS EPITHIAL 6 /hpf (0-5); URINE BACTERIA FEW (<OCC); URINE BILIRUBIN NEGATIVE (NEGATIVE); URINE BLOOD 3+ (NEGATIVE); URINE GLUCOSE (UA) 3+ mg/dL (Normal); URINE LEUKOCYTE ESTERASE TRACE Leu/uL (Negative); URINE PROTEIN 1+ mg/dL (NEGATIVE); URINE UROBILINOGEN NORMAL mg/dL (0.2-1.0)
[2018-04-20 18:13] LABS: URINE CLARITY Turbid (Clear); URINE COLOR RED (YELLOW)
[2018-04-20 19:40] LABS: HEMOGLOBIN 9.3 g/dL (12.0-18.0); MEAN CELL VOLUME 87.6 fL (80.0-94.0); MEAN CORPUSCULAR HEMOGLOBIN 27.3 pg (27.0-31.0); MEAN CORPUSCULAR HGB CONC 31.2 g/dL (33.0-37.0); MEAN PLATELET VOLUME 7.9 fL (7.2-11.7); RBC 3.41 Mil/uL (4.40-5.90); RED CELL DISTRIBUTION WIDTH 17.8 % (11.5-14.5); WHITE BLOOD COUNT 9.5 K/uL (4.8-10.8)
--- NOTE | 2018-04-20 23:48 | CP.PCM.PN ---
Subjective - Date & Time of Evaluation Date of Evaluation: 04/20/18 Time of Evaluation: 20:00 - Subjective Subjective: Pt seen and examined, he developed extensive hematuria, his urine is maroon colored and viscous, no h/o prior kidney stones, he c/o burning in feet and generalized body ache Objective - Vital Signs/Intake and Output Vital Signs (last 24 hours): Temp Pulse Resp BP Pulse Ox 98.5 F 86 20 97/66 L 98 04/20/18 16:13 04/20/18 16:13 04/20/18 16:13 04/20/18 16:13 04/20/18 16:13 Intake and Output: 04/20/18 04/21/18 18:59 06:59 Intake Total 880 1090 Output Total 200 600 Balance 680 490 - Medications Medications: Current Medications Acetaminophen (Tylenol 650mg/20.3ml Solution Ud) 650 mg PO Q4H PRN PRN Reason: Pain, moderate (4-7) Last Admin: 04/20/18 09:26 Dose: 650 mg Ascorbic Acid (Vitamin C 500 Mg Tab) 500 mg PO DAILY [facility] Last Admin: 04/20/18 09:25 Dose: 500 mg Docusate Sodium (Colace) 100 mg PO BID [facility] Last Admin: 04/20/18 17:16 Dose: 100 mg Enoxaparin Sodium (Lovenox) 40 mg SC DAILY [facility] Last Admin: 04/20/18 09:25 Dose: 40 mg Escitalopram Oxalate (Lexapro) 5 mg PO DAILY [facility] Last Admin: 04/20/18 09:25 Dose: 5 mg Gabapentin (Neurontin) 100 mg PO TID [facility] Last Admin: 04/20/18 17:16 Dose: 100 mg Sodium Chloride (Sodium Chloride 0.9%) 1,000 mls @ 80 mls/hr IV .[id number] [facility] Last Admin: 04/20/18 14:57 Dose: Not Given Metronidazole (Flagyl) 500 mg in 100 mls @ 100 mls/hr IVPB Q8H [facility] PRN Reason: Protocol Last Admin: 04/20/18 21:25 Dose: 100 mls/hr Aztreonam 500 mg/ Sodium (Chloride) 50 mls @ 100 mls/hr IVPB Q8H [facility] PRN Reason: Protocol Last Admin: 04/20/18 17:32 Dose: 100 mls/hr Insulin Human Regular (Novolin R) 0 unit SC ACHS [facility] PRN Reason: Protocol Last Admin: 04/20/18 22:49 Dose: Not Given Midodrine (Proamatine) 2.5 mg PO TID [facility] Last Admin: 04/20/18 17:16 Dose: 2.5 mg Pantoprazole Sodium (Protonix Inj) 40 mg IVP DAILY [facility] Last Admin: 04/20/18 09:25 Dose: 40 mg Zinc Sulfate (Zinc Sulfate 220 Mg Cap) 220 mg PO DAILY [facility] Last Admin: 04/20/18 09:25 Dose: 220 mg Zolpidem Tartrate (Ambien) 5 mg PO HS PRN PRN Reason: Insomnia Last Admin: 04/20/18 21:25 Dose: 5 mg - Labs Labs: 04/20/18 19:36 04/20/18 07:33 PT 10.7 SECONDS (9.7-12.2) 04/18/18 05:36 INR 1.0 04/18/18 05:36 APTT 32 SECONDS (21-34) 04/18/18 05:36 - Constitutional Appears: No Acute Distress, Chronically Ill - Head Exam Head Exam: ATRAUMATIC, NORMAL INSPECTION, NORMOCEPHALIC - Eye Exam Eye Exam: EOMI, Normal appearance, PERRL Pupil Exam: NORMAL ACCOMODATION, PERRL - ENT Exam ENT Exam: Mucous Membranes Moist, Normal Exam - Cardiovascular Exam Cardiovascular Exam: REGULAR RHYTHM, +S1, +S2. absent: Murmur - GI/Abdominal Exam GI & Abdominal Exam: Soft, Normal Bowel Sounds. absent: Tenderness - Rectal Exam Rectal Exam: Deferred Assessment and Plan (1) Cachectic Status: Acute (2) Abdominal pain Status: Acute (3) CAD (coronary artery disease) Status: Acute (4) Dehydration Status: Acute (5) Diabetes mellitus Status: Acute (6) Hematuria Assessment & Plan: renal/urology eval no trauma no h/o prior kidney stones R/O UTI,Hemorhagic cystitis, Kidney stones, BPH, bladder cancer Renal U/S neg Status: Acute
--- NOTE | 2018-04-21 00:22 | CP.PCM.PN ---
Subjective - Date & Time of Evaluation Date of Evaluation: 04/19/18 Time of Evaluation: 18:30 - Subjective Subjective: Pt seen and examined, is c/o flank pain, weak and lethargic, for U/S renal and urology eval due to hematuria Objective - Vital Signs/Intake and Output Vital Signs (last 24 hours): Temp Pulse Resp BP Pulse Ox 98.5 F 81 20 94/62 L 95 04/20/18 23:30 04/20/18 23:30 04/20/18 23:30 04/20/18 23:30 04/20/18 23:30 Intake and Output: 04/20/18 04/21/18 18:59 06:59 Intake Total 880 1090 Output Total 200 600 Balance 680 490 - Medications Medications: Current Medications Acetaminophen (Tylenol 650mg/20.3ml Solution Ud) 650 mg PO Q4H PRN PRN Reason: Pain, moderate (4-7) Last Admin: 04/20/18 09:26 Dose: 650 mg Ascorbic Acid (Vitamin C 500 Mg Tab) 500 mg PO DAILY [facility] Last Admin: 04/20/18 09:25 Dose: 500 mg Docusate Sodium (Colace) 100 mg PO BID [facility] Last Admin: 04/20/18 17:16 Dose: 100 mg Enoxaparin Sodium (Lovenox) 40 mg SC DAILY [facility] Last Admin: 04/20/18 09:25 Dose: 40 mg Escitalopram Oxalate (Lexapro) 5 mg PO DAILY [facility] Last Admin: 04/20/18 09:25 Dose: 5 mg Gabapentin (Neurontin) 100 mg PO TID [facility] Last Admin: 04/20/18 17:16 Dose: 100 mg Sodium Chloride (Sodium Chloride 0.9%) 1,000 mls @ 80 mls/hr IV .[id number] [facility] Last Admin: 04/20/18 14:57 Dose: Not Given Metronidazole (Flagyl) 500 mg in 100 mls @ 100 mls/hr IVPB Q8H [facility] PRN Reason: Protocol Last Admin: 04/20/18 21:25 Dose: 100 mls/hr Aztreonam 500 mg/ Sodium (Chloride) 50 mls @ 100 mls/hr IVPB Q8H [facility] PRN Reason: Protocol Last Admin: 04/20/18 17:32 Dose: 100 mls/hr Insulin Human Regular (Novolin R) 0 unit SC ACHS [facility] PRN Reason: Protocol Last Admin: 04/20/18 22:49 Dose: Not Given Midodrine (Proamatine) 2.5 mg PO TID [facility] Last Admin: 04/20/18 17:16 Dose: 2.5 mg Pantoprazole Sodium (Protonix Inj) 40 mg IVP DAILY [facility] Last Admin: 04/20/18 09:25 Dose: 40 mg Zinc Sulfate (Zinc Sulfate 220 Mg Cap) 220 mg PO DAILY [facility] Last Admin: 04/20/18 09:25 Dose: 220 mg Zolpidem Tartrate (Ambien) 5 mg PO HS PRN PRN Reason: Insomnia Last Admin: 04/20/18 21:25 Dose: 5 mg - Labs Labs: 04/20/18 19:36 04/20/18 07:33 PT 10.7 SECONDS (9.7-12.2) 04/18/18 05:36 INR 1.0 04/18/18 05:36 APTT 32 SECONDS (21-34) 04/18/18 05:36 Assessment and Plan (1) Cachectic Status: Acute (2) Abdominal pain Status: Acute (3) CAD (coronary artery disease) Status: Acute (4) Dehydration Status: Acute (5) Diabetes mellitus Status: Acute (6) Hematuria Status: Acute
[2018-04-21] MEDS: Sodium Chloride 0.9% 1,000 ML IV SCH ×2 (03:35→15:56)
[2018-04-21] MEDS: metroNIDAZOLE IV 500 mg/100 ml 500 MG/100 ML BAG IVPB SCH ×3 (04:03→20:59)
[2018-04-21 06:33] LABS: BASO % 0.4 % (0.0-2.0); EOS # 0.3 K/uL (0.0-0.7); EOS % 4.7 % (0.0-4.0); LYMPH # 1.7 K/uL (1.0-4.3); LYMPH % 27.9 % (20.0-40.0); MEAN CELL VOLUME 85.6 fL (80.0-94.0); MEAN CORPUSCULAR HGB CONC 32.7 g/dL (33.0-37.0); MEAN PLATELET VOLUME 7.9 fL (7.2-11.7); MONO # 0.5 K/uL (0.0-0.8); MONO % 7.6 % (0.0-10.0); NEUT # 3.6 K/uL (1.8-7.0); NEUT % 59.4 % (50.0-75.0); RBC 2.87 Mil/uL (4.40-5.90); RED CELL DISTRIBUTION WIDTH 17.9 % (11.5-14.5)
[2018-04-21 06:47] LABS: ALB/GLOB RATIO 0.8 (1.0-2.1); ALBUMIN 2.2 g/dL (3.5-5.0); ALT/SGPT 26 U/L (21-72); AST/SGOT 16 U/L (17-59); BLOOD UREA NITROGEN 11 mg/dL (9-20); CALCIUM 10.2 mg/dl (8.6-10.4); GFR NON-AFRICAN AMERICAN > 60
[2018-04-21] MEDS: (Novolin R) Insulin Human Regular 100 units/ml vial SC SCH ×4 (08:30→21:24)
[2018-04-21] MEDS ORDERED: Potassium Chloride 20 mEq/15 ml LIQ UD PO ONE (09:30)
[2018-04-21] MEDS: Enoxaparin 40 mg Syringe SC SCH (09:34)
[2018-04-21] MEDS: Acetaminophen 650mg/20.3ml solution UD PO PRN ×2 (18:52→22:28)
--- NOTE | 2018-04-21 19:44 | US ---
Date of service: 04/21/2018 PROCEDURE: Ultrasound examination of the pelvis HISTORY: hematuria COMPARISON: Comparison is made to the previous CT of the abdomen and pelvis dated 04/18/2018 TECHNIQUE: Ultrasound examination of the bladder and prostate were obtained. FINDINGS: The urinary bladder is mildly distended. The ureteral jets are not clearly visualized. There is hypoechoic structure at the posterior aspect of the bladder of uncertain etiology. The bladder measures 11.3 x 7 x 9 centimeter with a total volume of 502 mL. No evidence of significant postvoid residual. The prostate measures 3.9 x 4.6 x 3.4 centimeter with a total volume of 31.6 mm IMPRESSION: As described above.
--- NOTE | 2018-04-21 23:30 | CON ---
Copied To: Cherelle Longo MD Attending MD: Cherelle Longo MD DATE: 04/21/2018 HISTORY OF PRESENT ILLNESS: The patient is a 77-year-old male who presented with severe abdominal pain. The patient has gross hematuria. I was called to see him because of that. Apparently, the patient voiding frequently and has abdominal pain and was passing fresh blood through the urethra. The patient has no Paulson and he has external condom. History of frequency and lower abdominal pain for the last few months. Apparently, patient has abdominal surgery few years back, and later, he continued to have pain. Renal ultrasound was done on this admission which revealed no hydro and no stone and no mass. PHYSICAL EXAMINATION: ABDOMEN: Tender epigastric area, severe tenderness of the suprapubic area but there is no fullness. GENITOURINARY: Testis in the scrotum. Penis within normal limits. RECTUM: 1-1/2 plus firm. Very difficult to evaluate because the patient is not cooperative. LABORATORY DATA: Urine revealed many rbc's and the patient dropped his hematocrit. IMPRESSION: Hematuria, rule out bladder lesion. PLAN: Pelvic ultrasound, urine culture, and PSA. I will follow him. Cherelle Longo MD
[2018-04-22] MEDS: Acetaminophen 650mg/20.3ml solution UD PO PRN ×3 (04:00→15:55)
[2018-04-22] MEDS: Sodium Chloride 0.9% 1,000 ML IV SCH ×2 (04:02→16:00)
[2018-04-22] MEDS: metroNIDAZOLE IV 500 mg/100 ml 500 MG/100 ML BAG IVPB SCH ×3 (04:04→21:51)
[2018-04-22 07:54] LABS: BASO % 0.3 % (0.0-2.0); EOS # 0.2 K/uL (0.0-0.7); EOS % 3.9 % (0.0-4.0); HEMOGLOBIN 9.5 g/dL (12.0-18.0); LYMPH # 1.4 K/uL (1.0-4.3); LYMPH % 26.8 % (20.0-40.0); MEAN CELL VOLUME 87.1 fL (80.0-94.0); MEAN CORPUSCULAR HEMOGLOBIN 28.1 pg (27.0-31.0); MEAN CORPUSCULAR HGB CONC 32.3 g/dL (33.0-37.0); MONO # 0.4 K/uL (0.0-0.8); MONO % 8.1 % (0.0-10.0); NEUT # 3.2 K/uL (1.8-7.0); NEUT % 60.9 % (50.0-75.0); RBC 3.37 Mil/uL (4.40-5.90); RED CELL DISTRIBUTION WIDTH 16.9 % (11.5-14.5); WHITE BLOOD COUNT 5.2 K/uL (4.8-10.8)
[2018-04-22 08:15] LABS: ALB/GLOB RATIO 0.7 (1.0-2.1); ALBUMIN 2.1 g/dL (3.5-5.0); ALT/SGPT 26 U/L (21-72); AST/SGOT 26 U/L (17-59); BLOOD UREA NITROGEN 10 mg/dL (9-20); CALCIUM 9.7 mg/dl (8.6-10.4); GFR NON-AFRICAN AMERICAN > 60
[2018-04-22] MEDS: (Novolin R) Insulin Human Regular 100 units/ml vial SC SCH ×4 (08:15→21:20)
[2018-04-22] MEDS: Enoxaparin 40 mg Syringe SC SCH (09:12)
--- NOTE | 2018-04-22 21:16 | CP.PCM.PN ---
Subjective - Date & Time of Evaluation Date of Evaluation: 04/21/18 Time of Evaluation: 18:30 - Subjective Subjective: Pt seen and examined, he still have hematuria, he is weak , hb dropped, urine has 9575 rbcs, seen by urology on antibiotics Objective - Vital Signs/Intake and Output Vital Signs (last 24 hours): Temp Pulse Resp BP Pulse Ox 97.6 F 86 18 107/67 98 04/22/18 15:44 04/22/18 15:44 04/22/18 15:44 04/22/18 15:44 04/22/18 15:44 Intake and Output: 04/22/18 04/23/18 18:59 06:59 Intake Total 1200 Output Total 650 Balance 550 - Medications Medications: Current Medications Acetaminophen (Tylenol 650mg/20.3ml Solution Ud) 650 mg PO Q4H PRN PRN Reason: Pain, moderate (4-7) Last Admin: 04/22/18 15:55 Dose: 650 mg Ascorbic Acid (Vitamin C 500 Mg Tab) 500 mg PO DAILY [facility] Last Admin: 04/22/18 09:12 Dose: 500 mg Docusate Sodium (Colace) 100 mg PO BID [facility] Last Admin: 04/22/18 17:28 Dose: 100 mg Enoxaparin Sodium (Lovenox) 40 mg SC DAILY [facility] Last Admin: 04/22/18 09:12 Dose: Not Given Escitalopram Oxalate (Lexapro) 5 mg PO DAILY [facility] Last Admin: 04/22/18 09:14 Dose: 5 mg Gabapentin (Neurontin) 100 mg PO TID [facility] Last Admin: 04/22/18 17:28 Dose: 100 mg Sodium Chloride (Sodium Chloride 0.9%) 1,000 mls @ 80 mls/hr IV .[id number] [facility] Last Admin: 04/22/18 16:00 Dose: 80 mls/hr Metronidazole (Flagyl) 500 mg in 100 mls @ 100 mls/hr IVPB Q8H [facility] PRN Reason: Protocol Last Admin: 04/22/18 13:51 Dose: 100 mls/hr Aztreonam 500 mg/ Sodium (Chloride) 50 mls @ 100 mls/hr IVPB Q8H [facility] PRN Reason: Protocol Last Admin: 04/22/18 17:28 Dose: 100 mls/hr Insulin Human Regular (Novolin R) 0 unit SC ACHS [facility] PRN Reason: Protocol Last Admin: 04/22/18 17:28 Dose: 2 units Midodrine (Proamatine) 2.5 mg PO TID [facility] Last Admin: 04/22/18 17:28 Dose: 2.5 mg Pantoprazole Sodium (Protonix Inj) 40 mg IVP DAILY [facility] Last Admin: 04/22/18 09:11 Dose: 40 mg Tamsulosin HCl (Flomax) 0.4 mg PO BID [facility] Last Admin: 04/22/18 17:28 Dose: 0.4 mg Zinc Sulfate (Zinc Sulfate 220 Mg Cap) 220 mg PO DAILY [facility] Last Admin: 04/22/18 09:12 Dose: 220 mg Zolpidem Tartrate (Ambien) 5 mg PO HS PRN PRN Reason: Insomnia Last Admin: 04/20/18 21:25 Dose: 5 mg - Labs Labs: 04/22/18 07:27 04/22/18 07:27 PT 10.7 SECONDS (9.7-12.2) 04/18/18 05:36 INR 1.0 04/18/18 05:36 APTT 32 SECONDS (21-34) 04/18/18 05:36 - Constitutional Appears: No Acute Distress - Head Exam Head Exam: ATRAUMATIC, NORMAL INSPECTION, NORMOCEPHALIC - Eye Exam Eye Exam: EOMI, Normal appearance, PERRL Pupil Exam: NORMAL ACCOMODATION, PERRL - ENT Exam ENT Exam: Mucous Membranes Moist, Normal Exam - Respiratory Exam Respiratory Exam: Clear to Ausculation Bilateral, NORMAL BREATHING PATTERN - Cardiovascular Exam Cardiovascular Exam: REGULAR RHYTHM, +S1, +S2. absent: Murmur - GI/Abdominal Exam GI & Abdominal Exam: Soft, Normal Bowel Sounds. absent: Tenderness - Rectal Exam Rectal Exam: Deferred Assessment and Plan (1) Cachectic Status: Acute (2) Abdominal pain Status: Acute (3) CAD (coronary artery disease) Status: Acute (4) Dehydration Status: Acute (5) Diabetes mellitus Status: Acute (6) Hematuria Status: Acute
--- NOTE | 2018-04-22 21:16 | CP.PCM.PN ---
Subjective - Date & Time of Evaluation Date of Evaluation: 04/22/18 Time of Evaluation: 18:30 - Subjective Subjective: Pt seen and examined, he still have hematuria, he is weak , hb dropped, urine has 9575 rbcs, seen by urology on antibiotics Objective - Vital Signs/Intake and Output Vital Signs (last 24 hours): Temp Pulse Resp BP Pulse Ox 97.6 F 86 18 107/67 98 04/22/18 15:44 04/22/18 15:44 04/22/18 15:44 04/22/18 15:44 04/22/18 15:44 Intake and Output: 04/22/18 04/23/18 18:59 06:59 Intake Total 1200 Output Total 650 Balance 550 - Medications Medications: Current Medications Acetaminophen (Tylenol 650mg/20.3ml Solution Ud) 650 mg PO Q4H PRN PRN Reason: Pain, moderate (4-7) Last Admin: 04/22/18 15:55 Dose: 650 mg Ascorbic Acid (Vitamin C 500 Mg Tab) 500 mg PO DAILY [facility] Last Admin: 04/22/18 09:12 Dose: 500 mg Docusate Sodium (Colace) 100 mg PO BID [facility] Last Admin: 04/22/18 17:28 Dose: 100 mg Enoxaparin Sodium (Lovenox) 40 mg SC DAILY [facility] Last Admin: 04/22/18 09:12 Dose: Not Given Escitalopram Oxalate (Lexapro) 5 mg PO DAILY [facility] Last Admin: 04/22/18 09:14 Dose: 5 mg Gabapentin (Neurontin) 100 mg PO TID [facility] Last Admin: 04/22/18 17:28 Dose: 100 mg Sodium Chloride (Sodium Chloride 0.9%) 1,000 mls @ 80 mls/hr IV .[id number] [facility] Last Admin: 04/22/18 16:00 Dose: 80 mls/hr Metronidazole (Flagyl) 500 mg in 100 mls @ 100 mls/hr IVPB Q8H [facility] PRN Reason: Protocol Last Admin: 04/22/18 13:51 Dose: 100 mls/hr Aztreonam 500 mg/ Sodium (Chloride) 50 mls @ 100 mls/hr IVPB Q8H [facility] PRN Reason: Protocol Last Admin: 04/22/18 17:28 Dose: 100 mls/hr Insulin Human Regular (Novolin R) 0 unit SC ACHS [facility] PRN Reason: Protocol Last Admin: 04/22/18 17:28 Dose: 2 units Midodrine (Proamatine) 2.5 mg PO TID [facility] Last Admin: 04/22/18 17:28 Dose: 2.5 mg Pantoprazole Sodium (Protonix Inj) 40 mg IVP DAILY [facility] Last Admin: 04/22/18 09:11 Dose: 40 mg Tamsulosin HCl (Flomax) 0.4 mg PO BID [facility] Last Admin: 04/22/18 17:28 Dose: 0.4 mg Zinc Sulfate (Zinc Sulfate 220 Mg Cap) 220 mg PO DAILY [facility] Last Admin: 04/22/18 09:12 Dose: 220 mg Zolpidem Tartrate (Ambien) 5 mg PO HS PRN PRN Reason: Insomnia Last Admin: 04/20/18 21:25 Dose: 5 mg - Labs Labs: 04/22/18 07:27 04/22/18 07:27 PT 10.7 SECONDS (9.7-12.2) 04/18/18 05:36 INR 1.0 04/18/18 05:36 APTT 32 SECONDS (21-34) 04/18/18 05:36 Assessment and Plan (1) Cachectic Status: Acute (2) Abdominal pain Status: Acute (3) CAD (coronary artery disease) Status: Acute (4) Dehydration Status: Acute (5) Diabetes mellitus Status: Acute (6) Hematuria Status: Acute
--- NOTE | 2018-04-23 00:27 | CARD ---
APPROVED REPORT Date of service: 04/18/2018 EKG Measurement Heart [id number] <Conclusion> Sinus tachycardia Left axis deviation Incomplete right bundle branch block Abnormal ECG
[2018-04-23] MEDS: metroNIDAZOLE IV 500 mg/100 ml 500 MG/100 ML BAG IVPB SCH ×3 (04:19→20:47)
[2018-04-23] MEDS: Sodium Chloride 0.9% 1,000 ML IV SCH ×2 (04:19→17:48)
--- NOTE | 2018-04-23 08:24 | CON ---
Copied To: Cherelle Longo MD Attending MD: Cherelle Longo MD DATE: 04/23/2018 The patient with hematuria and chronic retention. Pelvic ultrasounds revealed moderate fullness of the bladder with defect in the dome, rule out lesion, possible bladder tumor because of the hematuria. We will do Psychology and followup. Most likely, I will do cystoscopy when some of the results are back. Cherelle Longo MD
[2018-04-23 08:34] LABS: BASO % 0.4 % (0.0-2.0); EOS # 0.3 K/uL (0.0-0.7); EOS % 6.2 % (0.0-4.0); HEMOGLOBIN 9.7 g/dL (12.0-18.0); LYMPH # 1.4 K/uL (1.0-4.3); MEAN CELL VOLUME 86.3 fL (80.0-94.0); MEAN CORPUSCULAR HEMOGLOBIN 28.2 pg (27.0-31.0); MEAN CORPUSCULAR HGB CONC 32.7 g/dL (33.0-37.0); MONO # 0.5 K/uL (0.0-0.8); MONO % 9.1 % (0.0-10.0); NEUT # 2.8 K/uL (1.8-7.0); NEUT % 55.3 % (50.0-75.0); RBC 3.43 Mil/uL (4.40-5.90); RED CELL DISTRIBUTION WIDTH 17.4 % (11.5-14.5)
[2018-04-23 08:41] LABS: ALB/GLOB RATIO 0.8 (1.0-2.1); ALT/SGPT 26 U/L (21-72); AST/SGOT 22 U/L (17-59); BLOOD UREA NITROGEN 8 mg/dL (9-20); CALCIUM 9.6 mg/dl (8.6-10.4); GFR NON-AFRICAN AMERICAN > 60
[2018-04-23] MEDS: (Novolin R) Insulin Human Regular 100 units/ml vial SC SCH ×4 (09:52→21:45)
[2018-04-23] MEDS: Acetaminophen 650mg/20.3ml solution UD PO PRN ×2 (09:59)
[2018-04-23] MEDS ORDERED: Potassium Chloride 20 mEq/15 ml LIQ UD PO ONE (12:15)
--- NOTE | 2018-04-23 20:54 | CP.PCM.PN ---
Objective - Vital Signs/Intake and Output Vital Signs (last 24 hours): Temp Pulse Resp BP Pulse Ox 97.4 F L 81 20 104/67 99 04/23/18 16:00 04/23/18 16:00 04/23/18 16:00 04/23/18 16:00 04/23/18 16:00 Intake and Output: 04/23/1818 18:59 06:59 Intake Total 480 Output Total 275 Balance 205 - Medications Medications: Current Medications Acetaminophen (Tylenol 650mg/20.3ml Solution Ud) 650 mg PO Q4H PRN PRN Reason: Pain, moderate (4-7) Last Admin: 04/23/18 09:59 Dose: 650 mg Ascorbic Acid (Vitamin C 500 Mg Tab) 500 mg PO DAILY [facility] Last Admin: 04/23/18 09:58 Dose: 500 mg Docusate Sodium (Colace) 100 mg PO BID [facility] Last Admin: 04/23/18 17:46 Dose: 100 mg Enoxaparin Sodium (Lovenox) 40 mg SC DAILY [facility] Last Admin: 04/22/18 09:12 Dose: Not Given Escitalopram Oxalate (Lexapro) 5 mg PO DAILY [facility] Last Admin: 04/23/18 09:58 Dose: 5 mg Gabapentin (Neurontin) 100 mg PO TID [facility] Last Admin: 04/23/18 17:46 Dose: 100 mg Sodium Chloride (Sodium Chloride 0.9%) 1,000 mls @ 80 mls/hr IV .[id number] [facility] Last Admin: 04/23/18 17:48 Dose: 80 mls/hr Metronidazole (Flagyl) 500 mg in 100 mls @ 100 mls/hr IVPB Q8H [facility] PRN Reason: Protocol Last Admin: 04/23/18 20:47 Dose: 100 mls/hr Aztreonam 500 mg/ Sodium (Chloride) 50 mls @ 100 mls/hr IVPB Q8H [facility] PRN Reason: Protocol Last Admin: 04/23/18 17:46 Dose: 100 mls/hr Insulin Human Regular (Novolin R) 0 unit SC ACHS [facility] PRN Reason: Protocol Last Admin: 04/23/18 17:20 Dose: 3 units Midodrine (Proamatine) 2.5 mg PO TID [facility] Last Admin: 04/23/18 17:48 Dose: 2.5 mg Morphine Sulfate (Morphine) 2 mg IVP DAILY [facility] PRN Reason: Pain, severe (8-10) Last Admin: 04/23/18 13:41 Dose: 2 mg Pantoprazole Sodium (Protonix Inj) 40 mg IVP DAILY [facility] Last Admin: 04/23/18 09:58 Dose: 40 mg Tamsulosin HCl (Flomax) 0.4 mg PO BID [facility] Last Admin: 04/23/18 17:48 Dose: 0.4 mg Zinc Sulfate (Zinc Sulfate 220 Mg Cap) 220 mg PO DAILY [facility] Last Admin: 04/23/18 09:58 Dose: 220 mg Zolpidem Tartrate (Ambien) 5 mg PO HS PRN PRN Reason: Insomnia Last Admin: 04/20/18 21:25 Dose: 5 mg - Labs Labs: 04/23/18 08:18 04/23/18 08:18 PT 10.7 SECONDS (9.7-12.2) 04/18/18 05:36 INR 1.0 04/18/18 05:36 APTT 32 SECONDS (21-34) 04/18/18 05:36 Assessment and Plan (1) Cachectic Status: Acute (2) Abdominal pain Status: Acute (3) CAD (coronary artery disease) Status: Acute (4) Dehydration Status: Acute (5) Diabetes mellitus Status: Acute (6) Hematuria Status: Acute
[2018-04-24] MEDS: metroNIDAZOLE IV 500 mg/100 ml 500 MG/100 ML BAG IVPB SCH ×3 (04:06→20:28)
[2018-04-24] MEDS: Acetaminophen 650mg/20.3ml solution UD PO PRN ×2 (05:57→20:29)
[2018-04-24] MEDS: Sodium Chloride 0.9% 1,000 ML IV SCH ×3 (07:50→18:52)
[2018-04-24] MEDS: (Novolin R) Insulin Human Regular 100 units/ml vial SC SCH ×4 (08:20→21:16)
--- NOTE | 2018-04-24 09:09 | PN ---
Copied To: Alex Siddiqui MD Attending MD: Alex Siddiqui MD DATE: 04/23/2018 SUBJECTIVE: The patient has less hematuria. His swelling is better, and he is here for cystoscopy. I discussed with the , the power of estate planning attorney, and she is agreeable for cystoscopy. Patient is afebrile. He is on antibiotics, and his urine has improved with hematuria. PHYSICAL EXAMINATION: VITAL SIGNS: Blood pressure 104/67, pulse 51, respiratory rate 20, temperature 97.4. LUNGS: Clear. CARDIOVASCULAR: S1, S2, regular. ABDOMEN: Soft. ASSESSMENT: 1. Hemorrhagic cystitis, rule out nephrolithiasis, rule out malignant neoplasm of the bladder. Cystoscopy tomorrow. 2. Hypertension. 3. Type 2 diabetes. 4. Diabetic neuropathy, painful. PLAN: Continue current medication. Monitor patient. Alex Siddiqui MD
--- NOTE | 2018-04-24 23:44 | CP.PCM.PN ---
Objective - Vital Signs/Intake and Output Vital Signs (last 24 hours): Temp Pulse Resp BP Pulse Ox 97.4 F L 98 H 18 91/56 L 94 L 04/24/18 16:00 04/24/18 16:00 04/24/18 16:00 04/24/18 16:00 04/24/18 16:00 Intake and Output: 04/24/1818 18:59 06:59 Intake Total 1140 Output Total 200 400 Balance 940 -400 - Medications Medications: Current Medications Acetaminophen (Tylenol 650mg/20.3ml Solution Ud) 650 mg PO Q4H PRN PRN Reason: Pain, moderate (4-7) Last Admin: 04/24/18 20:29 Dose: 650 mg Ascorbic Acid (Vitamin C 500 Mg Tab) 500 mg PO DAILY [facility] Last Admin: 04/24/18 09:52 Dose: 500 mg Docusate Sodium (Colace) 100 mg PO BID [facility] Last Admin: 04/24/18 17:18 Dose: 100 mg Enoxaparin Sodium (Lovenox) 40 mg SC DAILY [facility] Last Admin: 04/22/18 09:12 Dose: Not Given Escitalopram Oxalate (Lexapro) 5 mg PO DAILY [facility] Last Admin: 04/24/18 09:52 Dose: 5 mg Gabapentin (Neurontin) 100 mg PO TID [facility] Last Admin: 04/24/18 17:18 Dose: 100 mg Sodium Chloride (Sodium Chloride 0.9%) 1,000 mls @ 80 mls/hr IV .[id number] [facility] Last Admin: 04/24/18 18:52 Dose: Not Given Metronidazole (Flagyl) 500 mg in 100 mls @ 100 mls/hr IVPB Q8H [facility] PRN Reason: Protocol Last Admin: 04/24/18 20:28 Dose: 100 mls/hr Aztreonam 500 mg/ Sodium (Chloride) 50 mls @ 100 mls/hr IVPB Q8H [facility] PRN Reason: Protocol Last Admin: 04/24/18 17:18 Dose: 100 mls/hr Insulin Human Regular (Novolin R) 0 unit SC ACHS [facility] PRN Reason: Protocol Last Admin: 04/24/18 21:16 Dose: Not Given Midodrine (Proamatine) 2.5 mg PO TID [facility] Last Admin: 04/24/18 17:18 Dose: 2.5 mg Morphine Sulfate (Morphine) 2 mg IVP DAILY [facility] PRN Reason: Pain, severe (8-10) Last Admin: 04/24/18 09:53 Dose: 2 mg Pantoprazole Sodium (Protonix Inj) 40 mg IVP DAILY [facility] Last Admin: 04/24/18 09:52 Dose: 40 mg Tamsulosin HCl (Flomax) 0.4 mg PO BID [facility] Last Admin: 04/24/18 17:18 Dose: 0.4 mg Zinc Sulfate (Zinc Sulfate 220 Mg Cap) 220 mg PO DAILY [facility] Last Admin: 04/24/18 09:52 Dose: 220 mg Zolpidem Tartrate (Ambien) 5 mg PO HS PRN PRN Reason: Insomnia Last Admin: 04/20/18 21:25 Dose: 5 mg - Labs Labs: 18 08:18 04/23/18 08:18 PT 10.7 SECONDS (9.7-12.2) 04/18/18 05:36 INR 1.0 04/18/18 05:36 APTT 32 SECONDS (21-34) 04/18/18 05:36 Assessment and Plan (1) Cachectic Status: Acute (2) Abdominal pain Status: Acute (3) CAD (coronary artery disease) Status: Acute (4) Dehydration Status: Acute (5) Diabetes mellitus Status: Acute (6) Hematuria Status: Acute
[2018-04-25] MEDS: metroNIDAZOLE IV 500 mg/100 ml 500 MG/100 ML BAG IVPB SCH ×3 (05:12→21:22)
[2018-04-25] MEDS: Sodium Chloride 0.9% 1,000 ML IV SCH (06:38)
[2018-04-25 07:04] LABS: BASO % 0.7 % (0.0-2.0); EOS # 0.3 K/uL (0.0-0.7); EOS % 7.9 % (0.0-4.0); HEMOGLOBIN 8.2 g/dL (12.0-18.0); LYMPH # 1.4 K/uL (1.0-4.3); LYMPH % 35.5 % (20.0-40.0); MEAN CELL VOLUME 86.1 fL (80.0-94.0); MEAN CORPUSCULAR HEMOGLOBIN 27.7 pg (27.0-31.0); MEAN CORPUSCULAR HGB CONC 32.1 g/dL (33.0-37.0); MEAN PLATELET VOLUME 8.2 fL (7.2-11.7); MONO # 0.4 K/uL (0.0-0.8); MONO % 10.4 % (0.0-10.0); NEUT # 1.8 K/uL (1.8-7.0); NEUT % 45.5 % (50.0-75.0); NRBC % 0.2 % (0.0-2.0); RBC 2.96 Mil/uL (4.40-5.90); RED CELL DISTRIBUTION WIDTH 17.9 % (11.5-14.5); WHITE BLOOD COUNT 4.1 K/uL (4.8-10.8)
[2018-04-25 07:39] LABS: BLOOD UREA NITROGEN 6 mg/dL (9-20); CALCIUM 7.7 mg/dl (8.6-10.4); GFR NON-AFRICAN AMERICAN > 60
[2018-04-25] MEDS: (Novolin R) Insulin Human Regular 100 units/ml vial SC SCH ×4 (07:55→21:38)
[2018-04-25] MEDS ORDERED: Sodium Chloride 0.45% 1,000 ML IV SCH (08:15)
[2018-04-25] MEDS ORDERED: Dextrose 5%/0.45% NS 1,000 ML IV SCH (08:15)
--- NOTE | 2018-04-25 09:18 | PN ---
Copied To: Alex Siddiqui MD Attending MD: Alex Siddiqui MD DATE: 04/24/2018 SUBJECTIVE: The patient is for cystoscopy, pending consent from power of privacy attorney. The patient is afebrile, decreased hematuria. No shortness of breath. PHYSICAL EXAMINATION VITAL SIGNS: Blood pressure 101/62, pulse 75, respiratory rate 20, temperature 97.6. LUNGS: Clear. CARDIOPULMONARY: S1, S2 regular. ABDOMEN: Soft. ASSESSMENT: 1. Hemorrhagic cystitis. 2. Dehydration. 3. Hypertension. 4. Coronary artery disease. PLAN: Medical management, monitor the patient. Alex Siddiqui MD
[2018-04-25] MEDS ORDERED: Ciprofloxacin 400mg/200ml D5W 0 MG/0 ML BAG IVPB ONE (12:54)
[2018-04-25] MEDS: Acetaminophen 650mg/20.3ml solution UD PO PRN ×2 (16:49→21:20)
--- NOTE | 2018-04-25 22:46 | CP.PCM.CON ---
History of Present Illness - History of Present Illness History of Present Illness: Podiatry consult note for Dr. Reyes, 77yo male who is [place] [facility] resident with PMHx of CAD, HTN, HLD, DM, GERD, perforated duodenal ulcer with bilateral heel deep tissue injury. Patient is a poor historian. Patient states he has been diabetic for a very long time and cannot recall how long the heel wounds have been present. Patient states his entire body is always hurting. Patient denies seeing a manager building. Patient denies any other pedal complains at this time. Patient denies fever/nausea/ vomiting. PMH: CAD w/ tripple vessel disease, HTN, HLD, DM, GERD, perforated duodenal ulcer, PE, diabetic peripheral neuropathy PSH: perforated duodenal ulcer s/p ex lap & rachelle patch on 12/22/17, CABG ALL: PCN SocialHx: Denies tobacco, etoh, recreational drug use Past Patient History - Infectious Disease Hx of Infectious Diseases: None - Past Medical History & Family History Past Medical History?: Yes - Past Social History Smoking Status: Former Smoker - CARDIAC Hx Cardiac Disorders: Yes Hx Hypercholesterolemia: Yes Hx Hypertension: Yes - PULMONARY Hx Respiratory Disorders: Yes Hx Pulmonary Embolism: Yes - NEUROLOGICAL Hx Neurological Disorder: Yes Hx Syncope: Yes - HEENT Hx HEENT Problems: No - RENAL Hx Chronic Kidney Disease: No - ENDOCRINE/METABOLIC Hx Diabetes Mellitus Type 2: Yes - HEMATOLOGICAL/ONCOLOGICAL Hx Blood Disorders: No - INTEGUMENTARY Hx Dermatological Problems: No - MUSCULOSKELETAL/RHEUMATOLOGICAL Hx Arthritis: Yes Hx Falls: Yes - GASTROINTESTINAL Hx Gastrointestinal Disorders: Yes Hx Gastroesophageal Reflux: Yes - GENITOURINARY/GYNECOLOGICAL Hx Genitourinary Disorders: No - PSYCHIATRIC Hx Substance Use: No - SURGICAL HISTORY Hx Surgeries: Yes Other/Comment: left knee replacement, and left nerve repair, left and right hand nerve repair, Exp.Lap 12/22/17, - ANESTHESIA Hx Anesthesia: Yes Hx Anesthesia Reactions: No Hx Malignant Hyperthermia: No Has any member of the family had a problem w/ anesthesia?: No Meds Allergies/Adverse Reactions: Allergies Allergy/AdvReac Type Severity Reaction Status Date / Time Penicillins Allergy Mild Verified 04/18/18 04:45 - Medications Medications: Current Medications Acetaminophen (Tylenol 650mg/20.3ml Solution Ud) 650 mg PO Q4H PRN PRN Reason: Pain, moderate (4-7) Last Admin: 04/25/18 21:20 Dose: 650 mg Ascorbic Acid (Vitamin C 500 Mg Tab) 500 mg PO DAILY [facility] Last Admin: 04/25/18 09:15 Dose: Not Given Docusate Sodium (Colace) 100 mg PO BID [facility] Last Admin: 04/25/18 17:07 Dose: Not Given Enoxaparin Sodium (Lovenox) 40 mg SC DAILY [facility] Last Admin: 04/22/18 09:12 Dose: Not Given Escitalopram Oxalate (Lexapro) 10 mg PO DAILY [facility] Gabapentin (Neurontin) 100 mg PO TID [facility] Last Admin: 04/25/18 17:01 Dose: 100 mg Metronidazole (Flagyl) 500 mg in 100 mls @ 100 mls/hr IVPB Q8H [facility] PRN Reason: Protocol Last Admin: 04/25/18 21:22 Dose: 100 mls/hr Insulin Human Regular (Novolin R) 0 unit SC ACHS [facility] PRN Reason: Protocol Last Admin: 04/25/18 21:38 Dose: 3 units Midodrine (Proamatine) 2.5 mg PO TID [facility] Last Admin: 04/25/18 17:01 Dose: 2.5 mg Morphine Sulfate (Morphine) 2 mg IVP DAILY PRN PRN Reason: Pain, severe (8-10) Last Admin: 04/24/18 09:53 Dose: 2 mg Pantoprazole Sodium (Protonix Inj) 40 mg IVP DAILY [facility] Last Admin: 04/25/18 09:18 Dose: 40 mg Tamsulosin HCl (Flomax) 0.4 mg PO BID [facility] Last Admin: 04/25/18 17:01 Dose: 0.4 mg Zinc Sulfate (Zinc Sulfate 220 Mg Cap) 220 mg PO DAILY [facility] Last Admin: 04/25/18 09:15 Dose: Not Given Zolpidem Tartrate (Ambien) 5 mg PO HS PRN PRN Reason: Insomnia Last Admin: 04/25/18 21:27 Dose: 5 mg Physical Exam - Constitutional Appears: Well, Non-toxic, No Acute Distress - Head Exam Head Exam: ATRAUMATIC, NORMOCEPHALIC - Extremities Exam Additional comments: Bilateral lower extremity focused exam: Vascular: DP 2/4 b/l, PT non-palpable, Temperature gradient warm to cool from proximal legs to tip of toes, CFT >3 secs x10, no erythema noted in the lower extremity, no edema noted Neuro: protective sensation diminished via ipswich 0/4 b/l Derm: deep tissue injury to bilateral heel noted; Right heel: hyperkeratotic border with necrotic base at the plantar posterior aspect of the heel, mild malodor noted, no drainage, no erythema, no purulence, no probe to bone, no undermining, no tunneling, no tracking, no clinical signs of infection Left heel: superficial ulceration noted with 100% granular base at the plantar posterior aspect of the heel, no malodor, no drainage, no probe to bone, no undermining, no tracking, no tunneling, no erythema, no purulence, no clinical signs of infection Ortho: mild pain on palpation, diffuse pain on palpation to bilateral lower extremity - Neurological Exam Neurological exam: Alert, Oriented x3 - Psychiatric Exam Psychiatric exam: Normal Affect, Normal Mood Results - Vital Signs Recent Vital Signs: Last Vital Signs Temp 97.3 F L 04/25/18 16:00 Pulse 97 H 04/25/18 16:00 Resp 20 04/25/18 16:00 BP 118/74 04/25/18 16:00 Pulse Ox 97 04/25/18 16:00 - Labs Result Diagrams: 04/26/18 07:38 04/26/18 07:38 Labs: Laboratory Results - last 24 hr 04/25/18 04/25/18 04/25/18 06:23 06:58 06:58 WBC 4.1 L RBC 2.96 L Hgb 8.2 L Hct 25.5 L MCV 86.1 MCH 27.7 MCHC 32.1 L RDW 17.9 H Plt Count 180 MPV 8.2 Neut % (Auto) 45.5 L Lymph % (Auto) 35.5 Colbert % (Auto) 10.4 H Eos % (Auto) 7.9 H Baso % (Auto) 0.7 Neut # (Auto) 1.8 Lymph # (Auto) 1.4 Colbert # (Auto) 0.4 Eos # (Auto) 0.3 Baso # (Auto) 0.0 Sodium 140 Potassium 3.2 L Chloride 117 H Carbon Dioxide 18 L Anion Gap 9 L BUN 6 L Creatinine 0.6 L Est GFR ( Amer) > 60 Est GFR (Non-Af Amer) > 60 POC Glucose (mg/dL) 186 H Random Glucose 147 H Calcium 7.7 L 04/25/18 04/25/18 04/25/18 11:11 16:28 21:08 WBC RBC Hgb Hct MCV MCH MCHC RDW Plt Count MPV Neut % (Auto) Lymph % (Auto) Colbert % (Auto) Eos % (Auto) Baso % (Auto) Neut # (Auto) Lymph # (Auto) Colbert # (Auto) Eos # (Auto) Baso # (Auto) Sodium Potassium Chloride Carbon Dioxide Anion Gap BUN Creatinine Est GFR ( Amer) Est GFR (Non-Af Amer) POC Glucose (mg/dL) 207 H 240 H 356 H Random Glucose Calcium Assessment & Plan - Assessment and Plan (Free Text) Assessment: 77 yo male with PMHx of CAD, HTN, HLD, DM with peripheral neuropathy, GERD, perforated duodenal ulcer with deep tissue injury to bilateral heel Plan: Patient seen and evaluated History and plan discussed in detail with the attending, Dr. Reyes. Chart, labs and vitals reviewed; WBC 4.1, afebrile Wound cultures taken from bilateral heel wounds and order placed Bilateral heel dressed with xeroform, gauze, ABD and kerlix. Patient to remain in multipodus boots at all times X-rays reviewed: no osseous changes noted Podiatry will follow patient while in house
--- NOTE | 2018-04-25 23:11 | CP.PCM.PN ---
Objective - Vital Signs/Intake and Output Vital Signs (last 24 hours): Temp Pulse Resp BP Pulse Ox 97.3 F L 97 H 20 118/74 97 04/25/18 16:00 04/25/18 16:00 04/25/18 16:00 04/25/18 16:00 04/25/18 16:00 Intake and Output: 04/25/18 04/26/18 18:59 06:59 Intake Total 640 Output Total 600 Balance 40 - Medications Medications: Current Medications Acetaminophen (Tylenol 650mg/20.3ml Solution Ud) 650 mg PO Q4H PRN PRN Reason: Pain, moderate (4-7) Last Admin: 04/25/18 21:20 Dose: 650 mg Ascorbic Acid (Vitamin C 500 Mg Tab) 500 mg PO DAILY [facility] Last Admin: 04/25/18 09:15 Dose: Not Given Docusate Sodium (Colace) 100 mg PO BID [facility] Last Admin: 04/25/18 17:07 Dose: Not Given Enoxaparin Sodium (Lovenox) 40 mg SC DAILY [facility] Last Admin: 04/22/18 09:12 Dose: Not Given Escitalopram Oxalate (Lexapro) 10 mg PO DAILY [facility] Gabapentin (Neurontin) 100 mg PO TID [facility] Last Admin: 04/25/18 17:01 Dose: 100 mg Metronidazole (Flagyl) 500 mg in 100 mls @ 100 mls/hr IVPB Q8H [facility] PRN Reason: Protocol Last Admin: 04/25/18 21:22 Dose: 100 mls/hr Insulin Human Regular (Novolin R) 0 unit SC ACHS [facility] PRN Reason: Protocol Last Admin: 04/25/18 21:38 Dose: 3 units Midodrine (Proamatine) 2.5 mg PO TID [facility] Last Admin: 04/25/18 17:01 Dose: 2.5 mg Morphine Sulfate (Morphine) 2 mg IVP DAILY PRN PRN Reason: Pain, severe (8-10) Last Admin: 04/24/18 09:53 Dose: 2 mg Pantoprazole Sodium (Protonix Inj) 40 mg IVP DAILY [facility] Last Admin: 04/25/18 09:18 Dose: 40 mg Tamsulosin HCl (Flomax) 0.4 mg PO BID [facility] Last Admin: 04/25/18 17:01 Dose: 0.4 mg Zinc Sulfate (Zinc Sulfate 220 Mg Cap) 220 mg PO DAILY [facility] Last Admin: 04/25/18 09:15 Dose: Not Given Zolpidem Tartrate (Ambien) 5 mg PO HS PRN PRN Reason: Insomnia Last Admin: 04/25/18 21:27 Dose: 5 mg - Labs Labs: 04/25/18 06:58 04/25/18 06:58 PT 10.7 SECONDS (9.7-12.2) 04/18/18 05:36 INR 1.0 04/18/18 05:36 APTT 32 SECONDS (21-34) 04/18/18 05:36 Assessment and Plan (1) Cachectic Status: Acute (2) Abdominal pain Status: Acute (3) CAD (coronary artery disease) Status: Acute (4) Dehydration Status: Acute (5) Diabetes mellitus Status: Acute (6) Hematuria Status: Acute
--- NOTE | 2018-04-26 02:24 | PN ---
Copied To: Cherelle Longo MD Attending MD: Cherelle Longo MD DATE: 04/25/2018 FOLLOWUP The patient with incontinence and hematuria. Today, the plan was to do cystoscopy, but it could not be done. The patient has no gross hematuria at this stage. Mild suprapubic tenderness and no fullness. I talked to the power of head of strategy to reverse the DNR before we do any cystoscopy. The patient will be scheduled soon. Cherelle Longo MD
[2018-04-26] MEDS: metroNIDAZOLE IV 500 mg/100 ml 500 MG/100 ML BAG IVPB SCH ×3 (04:08→21:30)
--- NOTE | 2018-04-26 05:30 | PN ---
Copied To: Alex Siddiqui MD Attending MD: Alex Siddiqui MD DATE: 04/25/2018 SUBJECTIVE: The patient has resolved hematuria. He has burning in the feet. He has infection in the foot. He denies any fever or chills. No cough. PHYSICAL EXAMINATION: VITAL SIGNS: Blood pressure 118/74, pulse 97, respiratory rate 20, temperature 97.3. LUNGS: Clear. CARDIOVASCULAR: S1, S2, regular. ABDOMEN: Soft. ASSESSMENT: 1. Right foot infection. 2. Type 2 diabetes. 3. Hypertension. 4. Hemorrhagic cystitis. PLAN: Continue current medication. Monitor the patient. Alex Siddiqui MD
[2018-04-26] MEDS: Acetaminophen 650mg/20.3ml solution UD PO PRN ×3 (05:41→21:30)
--- NOTE | 2018-04-26 07:42 | RAD ---
Date of service: 04/25/2018 PROCEDURE: Bilateral Feet Radiographs. HISTORY: bilateral heel ulcers COMPARISON: None. FINDINGS: BONES: Right Foot: No fracture. Inferior calcaneal cortical ill definition of unknown chronicity more conspicuous than on left side. Given history of heel ulcers the possibility of a cell osteomyelitis here is a consideration. However top-normal variant is also in differential and is favored no direct ulcer ulcer is present here are the plantar surface There is questionable posterior superficial skin ulceration/ soft tissue changes question where the immediately subjacent posterior calcaneal cortex is unremarkable -intact. Left Foot: No fracture equivocal cortical ill definition inferior calcaneus with possible contiguous faint plantar aponeurotic calcifications. The precise site of the left heel ulcer not known. Same considerations mentioned above in the right here needed be considered. The posterior calcaneal cortex is intact.There is defect of the left 1st distal phalanx medial aspect edges are sharp not ill-defined as would typically expected an osteomyelitis. Postsurgical changes and/or prior trauma here is favored. JOINTS: Right Foot: Diffuse osteoarthrosis Left Foot: Diffuse osteoarthrosis SOFT TISSUES: Right Foot: As above Left Foot: As above OTHER FINDINGS: None. IMPRESSION: Severe generalized osteopenia. The slight cortical ill definition - most notably of the inferior right calcaneus is indeterminate its clinical significance (if any). . Clinical correlation with the site of ulcer is needed. Here top normal variant versus potential osteomyelitis are considerations. The findings are more notable on the right side than left side. If no directly contiguous ulcer here than top normal variants favored Elsewhere no periosteal reaction or cortical destruction seen to suggest an acute osteomyelitis. There is defect of the left 1st distal phalanx medial aspect edges are sharp not ill-defined as would typically expected an osteomyelitis. Postsurgical changes and/or prior trauma here is favored. Left medial os tibial externum developmental variant also noted.
[2018-04-26 07:51] LABS: BASO % 0.7 % (0.0-2.0); EOS # 0.3 K/uL (0.0-0.7); EOS % 5.3 % (0.0-4.0); HEMOGLOBIN 9.5 g/dL (12.0-18.0); LYMPH # 1.5 K/uL (1.0-4.3); LYMPH % 28.7 % (20.0-40.0); MEAN CELL VOLUME 85.5 fL (80.0-94.0); MEAN CORPUSCULAR HGB CONC 32.7 g/dL (33.0-37.0); MEAN PLATELET VOLUME 8.2 fL (7.2-11.7); MONO # 0.7 K/uL (0.0-0.8); MONO % 12.9 % (0.0-10.0); NEUT # 2.7 K/uL (1.8-7.0); NEUT % 52.4 % (50.0-75.0); NRBC % 0.1 % (0.0-2.0); RBC 3.4 Mil/uL (4.40-5.90); RED CELL DISTRIBUTION WIDTH 17.8 % (11.5-14.5); WHITE BLOOD COUNT 5.1 K/uL (4.8-10.8)
[2018-04-26 08:23] LABS: BLOOD UREA NITROGEN 9 mg/dL (9-20); CALCIUM 9.3 mg/dl (8.6-10.4); GFR NON-AFRICAN AMERICAN > 60
[2018-04-26] MEDS: Magnesium Sulfate 1 gm in D5W 1 GM/100 ML BAG IVPB SCH ×5 (09:42→20:00)
[2018-04-26] MEDS: (Novolin R) Insulin Human Regular 100 units/ml vial SC SCH ×4 (09:42→21:36)
--- NOTE | 2018-04-26 14:20 | CP.PCM.PN ---
Subjective - Date & Time of Evaluation Date of Evaluation: 04/26/18 Time of Evaluation: 11:00 - Subjective Subjective: Podiatry Progress Note- Dr. Reyes 77 y.o M seen and evaluated at bedside for bilaterally heel ulceration secondary to pressure. Patient is seen resting comfortably in bed and awake. Multipodus boots on during visitation. Patient reports mild pain to bilateral heels L>R right. Patient reports he slept okay last night. Denies fever, shortness of breath, chest pains or chills. Objective - Vital Signs/Intake and Output Vital Signs (last 24 hours): Temp Pulse Resp BP Pulse Ox 97.6 F 98 H 18 129/79 97 04/26/18 07:03 04/26/18 07:03 04/26/18 07:03 04/26/18 07:03 04/26/18 07:03 Intake and Output: 04/26/18 04/26/18 06:59 18:59 Output Total 350 Balance -350 - Medications Medications: Current Medications Acetaminophen (Tylenol 650mg/20.3ml Solution Ud) 650 mg PO Q4H PRN PRN Reason: Pain, moderate (4-7) Last Admin: 04/26/18 05:41 Dose: 650 mg Ascorbic Acid (Vitamin C 500 Mg Tab) 500 mg PO DAILY [facility] Last Admin: 04/26/18 09:41 Dose: 500 mg Docusate Sodium (Colace) 100 mg PO BID [facility] Last Admin: 04/26/18 09:41 Dose: 100 mg Enoxaparin Sodium (Lovenox) 40 mg SC DAILY [facility] Last Admin: 04/22/18 09:12 Dose: Not Given Escitalopram Oxalate (Lexapro) 10 mg PO DAILY [facility] Last Admin: 04/26/18 09:41 Dose: 10 mg Gabapentin (Neurontin) 100 mg PO TID [facility] Last Admin: 04/26/18 13:00 Dose: 100 mg Metronidazole (Flagyl) 500 mg in 100 mls @ 100 mls/hr IVPB Q8H [facility] PRN Reason: Protocol Last Admin: 04/26/18 12:50 Dose: 100 mls/hr Magnesium Sulfate/Dextrose (Magnesium Sulfate 1 Gm/100 Ml D5w) 1 gm in 100 mls @ 100 mls/hr IVPB Q1 [facility] Stop: 04/26/18 15:59 Last Admin: 04/26/18 14:17 Dose: 100 mls/hr Insulin Human Regular (Novolin R) 0 unit SC ACHS [facility] PRN Reason: Protocol Last Admin: 04/26/18 12:51 Dose: 3 units Midodrine (Proamatine) 2.5 mg PO TID [facility] Last Admin: 04/26/18 13:00 Dose: 2.5 mg Morphine Sulfate (Morphine) 2 mg IVP DAILY PRN PRN Reason: Pain, severe (8-10) Last Admin: 04/26/18 09:58 Dose: 2 mg Pantoprazole Sodium (Protonix Inj) 40 mg IVP DAILY [facility] Last Admin: 04/26/18 09:41 Dose: 40 mg Tamsulosin HCl (Flomax) 0.4 mg PO BID [facility] Last Admin: 04/26/18 09:41 Dose: 0.4 mg Zinc Sulfate (Zinc Sulfate 220 Mg Cap) 220 mg PO DAILY [facility] Last Admin: 04/26/18 09:41 Dose: 220 mg Zolpidem Tartrate (Ambien) 5 mg PO HS PRN PRN Reason: Insomnia Last Admin: 04/25/18 21:27 Dose: 5 mg - Labs Labs: 04/26/18 07:38 04/26/18 07:38 PT 10.7 SECONDS (9.7-12.2) 04/18/18 05:36 INR 1.0 04/18/18 05:36 APTT 32 SECONDS (21-34) 04/18/18 05:36 - Constitutional Appears: Well, Non-toxic, No Acute Distress - Extremities Exam Extremities Exam: absent: Calf Tenderness Additional comments: Bilateral lower extremity focused exam: Vascular: DP 2/4 b/l, PT non-palpable, temperature gradient warm to cool from proximal knees to distal toes, CFT >3 secs x10 digit, no erythema noted to the entire lower extremity, no appreciable edema noted Neuro: protective sensation diminished via ipswich 0/4 b/l Derm: ulcerations to bilateral posterior plantar heels noted. Right heel: hyperkeratotic border with necrotic wound base at the plantar posterior aspect of the heel, mild malodor noted, minimal purulence drainage about .5cc expressed, tiny opening to the eschar noted at distal lateral aspect of the heel. No erythema, no probe to bone, no undermining, no tunneling, no tracking, no streaking, no abscess or fluctance Left heel: deep tissue injury noted to the posterior plantar heel with deep tissue bruising at the plantar posterior aspect of the heel, no opening, no malodor, no drainage, no probe to bone, no undermining, no tracking, no tunneling, no erythema, no purulence, no clinical signs of infection to left Ortho: mild pain on palpation, diffuse pain on palpation to bilateral lower extremity - Neurological Exam Neurological Exam: Alert, Awake, Oriented x3 - Psychiatric Exam Psychiatric exam: Normal Affect, Normal Mood Assessment and Plan - Assessment and Plan (Free Text) Assessment: 77 y.o male with PMHx of CAD, HTN, HLD, DM with peripheral neuropathy, GERD, perforated duodenal ulcer with bilateral heel ulcerations secondary to pressure Plan: Patient seen and evaluated Plan discussed in detail with the attending, Dr. Reyes Chart, labs and vitals reviewed; WBC 5.1, afebrile X-rays reviewed: no osseous changes noted Cleansed bilateral heels with betadine, dressed with betadine wet to dry, dsd, abd and kerlix Placed in multipodus boots. Patient to remain in multipodus boots at all times while in bed to offloading Podiatry will follow patient while in house
--- NOTE | 2018-04-26 23:26 | CP.PCM.PN ---
Objective - Vital Signs/Intake and Output Vital Signs (last 24 hours): Temp Pulse Resp BP Pulse Ox 98 F 90 18 107/69 99 04/26/18 16:17 04/26/18 16:17 04/26/18 16:17 04/26/18 16:17 04/26/18 16:17 Intake and Output: 04/26/18 04/27/18 18:59 06:59 Output Total 250 Balance -250 - Medications Medications: Current Medications Acetaminophen (Tylenol 650mg/20.3ml Solution Ud) 650 mg PO Q4H PRN PRN Reason: Pain, moderate (4-7) Last Admin: 04/26/18 21:30 Dose: 650 mg Ascorbic Acid (Vitamin C 500 Mg Tab) 500 mg PO DAILY [facility] Last Admin: 04/26/18 09:41 Dose: 500 mg Docusate Sodium (Colace) 100 mg PO BID [facility] Last Admin: 04/26/18 17:29 Dose: Not Given Enoxaparin Sodium (Lovenox) 40 mg SC DAILY [facility] Last Admin: 04/22/18 09:12 Dose: Not Given Escitalopram Oxalate (Lexapro) 10 mg PO DAILY [facility] Last Admin: 04/26/18 09:41 Dose: 10 mg Gabapentin (Neurontin) 100 mg PO TID [facility] Last Admin: 04/26/18 17:25 Dose: 100 mg Metronidazole (Flagyl) 500 mg in 100 mls @ 100 mls/hr IVPB Q8H [facility] PRN Reason: Protocol Last Admin: 04/26/18 21:30 Dose: 100 mls/hr Insulin Human Regular (Novolin R) 0 unit SC ACHS [facility] PRN Reason: Protocol Last Admin: 04/26/18 21:36 Dose: Not Given Midodrine (Proamatine) 2.5 mg PO TID [facility] Last Admin: 04/26/18 17:25 Dose: 2.5 mg Morphine Sulfate (Morphine) 2 mg IVP DAILY PRN PRN Reason: Pain, severe (8-10) Last Admin: 04/26/18 09:58 Dose: 2 mg Pantoprazole Sodium (Protonix Inj) 40 mg IVP DAILY [facility] Last Admin: 04/26/18 09:41 Dose: 40 mg Tamsulosin HCl (Flomax) 0.4 mg PO BID [facility] Last Admin: 04/26/18 17:25 Dose: 0.4 mg Zinc Sulfate (Zinc Sulfate 220 Mg Cap) 220 mg PO DAILY [facility] Last Admin: 04/26/18 09:41 Dose: 220 mg Zolpidem Tartrate (Ambien) 5 mg PO HS PRN PRN Reason: Insomnia Last Admin: 04/25/18 21:27 Dose: 5 mg - Labs Labs: 04/26/18 07:38 04/26/18 07:38 PT 10.7 SECONDS (9.7-12.2) 04/18/18 05:36 INR 1.0 04/18/18 05:36 APTT 32 SECONDS (21-34) 04/18/18 05:36 Assessment and Plan (1) Cachectic Status: Acute (2) Abdominal pain Status: Acute (3) CAD (coronary artery disease) Status: Acute (4) Dehydration Status: Acute (5) Diabetes mellitus Status: Acute (6) Hematuria Status: Acute
[2018-04-27] MEDS: metroNIDAZOLE IV 500 mg/100 ml 500 MG/100 ML BAG IVPB SCH ×3 (04:57→21:48)
--- NOTE | 2018-04-27 05:23 | PN ---
Copied To: Alex Siddiqui MD Attending MD: Alex Siddiqui MD DATE: 04/26/2018 SUBJECTIVE: The patient has resolving hematuria. He still has 4 weeks. He feels better. He was seen by Podiatry. He is on wound care. He is afebrile. No shortness of breath. No chest pain. PHYSICAL EXAMINATION: VITAL SIGNS: Blood pressure 107/69, pulse 90, respiratory rate 18, temperature 98. LUNGS: Clear. CVS: S1, S2 regular. ABDOMEN: Soft. Nontender. Bowel sounds are positive. ASSESSMENT: 1. Hemorrhagic cystitis. 2. Hypertension. 3. Type 2 diabetes, on insulin. 4. Diabetic peripheral neuropathy, and right diabetic foot. PLAN: Continue current medications. Monitor the patient. The patient is for cystoscopy. He is medically stable for cystoscopy tomorrow. Alex Siddiqui MD
[2018-04-27 08:07] LABS: BASO % 0.6 % (0.0-2.0); EOS # 0.4 K/uL (0.0-0.7); EOS % 6.9 % (0.0-4.0); HEMOGLOBIN 9.6 g/dL (12.0-18.0); LYMPH # 1.7 K/uL (1.0-4.3); LYMPH % 30.6 % (20.0-40.0); MEAN CELL VOLUME 84.6 fL (80.0-94.0); MEAN CORPUSCULAR HEMOGLOBIN 27.9 pg (27.0-31.0); MEAN PLATELET VOLUME 8.3 fL (7.2-11.7); MONO # 0.5 K/uL (0.0-0.8); MONO % 9.5 % (0.0-10.0); NEUT # 2.9 K/uL (1.8-7.0); NEUT % 52.4 % (50.0-75.0); NRBC % 0.1 % (0.0-2.0); RBC 3.43 Mil/uL (4.40-5.90); RED CELL DISTRIBUTION WIDTH 17.8 % (11.5-14.5); WHITE BLOOD COUNT 5.6 K/uL (4.8-10.8)
[2018-04-27 08:19] LABS: BLOOD UREA NITROGEN 6 mg/dL (9-20); CALCIUM 8.9 mg/dl (8.6-10.4); GFR NON-AFRICAN AMERICAN > 60
[2018-04-27] MEDS: (Novolin R) Insulin Human Regular 100 units/ml vial SC SCH ×4 (08:21→22:15)
[2018-04-27] MEDS: Magnesium Sulfate 1 gm in D5W 1 GM/100 ML BAG IVPB SCH ×2 (09:20→09:21)
[2018-04-27] MEDS ORDERED: Midazolam 2 MG/2 ML VIAL ONE (13:41)
[2018-04-27] MEDS ORDERED: metroNIDAZOLE IV 500 mg/100 ml 500 MG/100 ML BAG ONE (13:53)
[2018-04-27] MEDS ORDERED: Propofol 10 mg/ml Inj (20 ML) ONE (13:54)
--- NOTE | 2018-04-27 16:07 | CP.PCM.PCO ---
Physician Communication Note - Physician Communication Note Physician Communication Note: no blood thinners secondary to hematuria
--- NOTE | 2018-04-27 17:01 | CP.PCM.PN ---
Subjective - Date & Time of Evaluation Date of Evaluation: 04/27/18 Time of Evaluation: 12:00 - Subjective Subjective: Podiatry Progress Note- Dr. Reyes 77 y.o M seen and evaluated at bedside for bilaterally heel ulceration secondary to pressure. Patient is seen resting comfortably in bed and awake. Multipodus boots on during visitation. Patient reports the same pain to bilateral heels L>R right. Denies fever, shortness of breath, chest pains or chills. Objective - Vital Signs/Intake and Output Vital Signs (last 24 hours): Temp Pulse Resp BP Pulse Ox 97.5 F L 94 H 18 115/76 94 L 04/27/18 16:00 04/27/18 16:00 04/27/18 16:00 04/27/18 16:00 04/27/18 16:00 Intake and Output: 04/27/18 04/27/18 06:59 18:59 Intake Total 100 180 Output Total 250 600 Balance -150 -420 - Medications Medications: Current Medications Acetaminophen (Tylenol 650mg/20.3ml Solution Ud) 650 mg PO Q4H PRN PRN Reason: Pain, moderate (4-7) Last Admin: 04/26/18 21:30 Dose: 650 mg Ascorbic Acid (Vitamin C 500 Mg Tab) 500 mg PO DAILY [facility] Last Admin: 04/27/18 10:25 Dose: 500 mg Docusate Sodium (Colace) 100 mg PO BID [facility] Last Admin: 04/27/18 09:19 Dose: 100 mg Escitalopram Oxalate (Lexapro) 10 mg PO DAILY [facility] Last Admin: 04/27/18 09:20 Dose: 10 mg Gabapentin (Neurontin) 100 mg PO TID [facility] Last Admin: 04/27/18 13:47 Dose: Not Given Metronidazole (Flagyl) 500 mg in 100 mls @ 100 mls/hr IVPB Q8H [facility] PRN Reason: Protocol Last Admin: 04/27/18 12:32 Dose: Not Given Insulin Human Regular (Novolin R) 0 unit SC ACHS [facility] PRN Reason: Protocol Last Admin: 04/27/18 12:32 Dose: Not Given Magnesium Oxide (Mag-Ox) 400 mg PO DAILY [facility] Stop: 04/30/18 22:01 Midodrine (Proamatine) 2.5 mg PO TID [facility] Last Admin: 04/27/18 13:48 Dose: Not Given Morphine Sulfate (Morphine) 2 mg IVP DAILY PRN PRN Reason: Pain, severe (8-10) Last Admin: 04/27/18 09:27 Dose: 2 mg Pantoprazole Sodium (Protonix Inj) 40 mg IVP DAILY [facility] Last Admin: 04/27/18 09:19 Dose: 40 mg Potassium Chloride (K-Dur 20 Meq Er Tab) 20 meq PO DAILY [facility] Stop: 04/29/18 18:01 Tamsulosin HCl (Flomax) 0.4 mg PO BID [facility] Last Admin: 04/27/18 09:19 Dose: 0.4 mg Zinc Sulfate (Zinc Sulfate 220 Mg Cap) 220 mg PO DAILY [facility] Last Admin: 04/27/18 09:19 Dose: 220 mg Zolpidem Tartrate (Ambien) 5 mg PO HS PRN PRN Reason: Insomnia Last Admin: 04/25/18 21:27 Dose: 5 mg - Labs Labs: 04/27/18 07:52 04/27/18 07:52 PT 10.7 SECONDS (9.7-12.2) 04/18/18 05:36 INR 1.0 04/18/18 05:36 APTT 32 SECONDS (21-34) 04/18/18 05:36 - Constitutional Appears: Well, Non-toxic, No Acute Distress - Extremities Exam Extremities Exam: absent: Calf Tenderness Additional comments: Bilateral lower extremity focused exam: Vascular: DP 2/4 b/l, PT non-palpable, temperature gradient warm to cool from proximal knees to distal toes, CFT >3 secs x10 digit, no erythema noted to the entire lower extremity, no appreciable edema noted Neuro: protective sensation diminished via ipswich 0/4 b/l Derm: ulcerations to bilateral posterior plantar heels noted. Right heel: hyperkeratotic border with necrotic wound base at the plantar posterior aspect of the heel measuring approximately 8 cm x8 cm, mild malodor noted, mild drainage , superficial opening to the eschar noted at distal lateral aspect of the heel. No erythema, no probe to bone, no undermining, no tunneling, no tracking, no streaking, no abscess or fluctance Left heel: deep tissue injury noted to the posterior plantar heel with deep tissue bruising at the plantar posterior aspect of the heel measuring approximately 6 cm x 7 cm , no opening, no malodor, no drainage, no probe to bone, no undermining, no tracking, no tunneling, no erythema, no purulence, no clinical signs of infection to left Ortho: mild pain on palpation, diffuse pain on palpation to bilateral lower extremity - Neurological Exam Neurological Exam: Alert, Awake - Psychiatric Exam Psychiatric exam: Normal Affect, Normal Mood Assessment and Plan - Assessment and Plan (Free Text) Assessment: 77 y.o male with PMHx of CAD, HTN, HLD, DM with peripheral neuropathy, GERD, perforated duodenal ulcer with bilateral heel ulcerations secondary to pressure and DM Plan: Patient seen and evaluated Plan discussed in detail with the attending, Dr. Reyes Chart, labs and vitals reviewed; WBC 5.6, afebrile X-rays final IMPRESSION: Severe generalized osteopenia. The slight cortical ill definition - most notably of the inferior right calcaneus is indeterminate its clinical significance (if any). . Clinical correlation with the site of ulcer is needed. Here top normal variant versus potential osteomyelitis are considerations. The findings are more notable on the right side than left side. If no directly contiguous ulcer here than top normal variants favored Elsewhere no periosteal reaction or cortical destruction seen to suggest an acute osteomyelitis. There is defect of the left 1st distal phalanx medial aspect edges are sharp not ill-defined as would typically expected an osteomyelitis. Postsurgical changes and/or prior trauma here is favored. Left medial os tibial externum developmental variant also noted. Will order MRI to r/o osteomyelitis of the heel Cleansed bilateral heels with betadine, dressed with betadine wet to dry, dsd, abd and kerlix Wound culture taken of right foot- pending Placed in multipodus boots Patient to remain in multipodus boots at all times while in bed to offloading Podiatry will follow patient while in house
[2018-04-27] MEDS: Potassium Chloride 20 mEq ER Tab PO SCH (17:22)
[2018-04-27] MEDS: Acetaminophen-Codeine 300/30 mg Tab PO PRN (22:09)
--- NOTE | 2018-04-27 23:18 | CP.PCM.PN ---
Objective - Vital Signs/Intake and Output Vital Signs (last 24 hours): Temp Pulse Resp BP Pulse Ox 97.5 F L 94 H 18 115/76 94 L 04/27/18 16:00 04/27/18 16:00 04/27/18 16:00 04/27/18 16:00 04/27/18 16:00 Intake and Output: 04/27/1818 18:59 06:59 Intake Total 180 Output Total 600 Balance -420 - Medications Medications: Current Medications Acetaminophen (Tylenol 650mg/20.3ml Solution Ud) 650 mg PO Q4H PRN PRN Reason: Pain, moderate (4-7) Last Admin: 04/26/18 21:30 Dose: 650 mg Acetaminophen/Codeine Phosphate (Tylenol/Codeine 300 Mg/30 Mg) 2 ea PO Q4 PRN PRN Reason: Pain, moderate (4-7) Last Admin: 04/27/18 22:09 Dose: 2 ea Ascorbic Acid (Vitamin C 500 Mg Tab) 500 mg PO DAILY [facility] Last Admin: 04/27/18 10:25 Dose: 500 mg Docusate Sodium (Colace) 100 mg PO BID [facility] Last Admin: 04/27/18 18:00 Dose: 100 mg Escitalopram Oxalate (Lexapro) 10 mg PO DAILY [facility] Last Admin: 04/27/18 09:20 Dose: 10 mg Gabapentin (Neurontin) 100 mg PO TID [facility] Last Admin: 04/27/18 17:22 Dose: 100 mg Metronidazole (Flagyl) 500 mg in 100 mls @ 100 mls/hr IVPB Q8H [facility] PRN Reason: Protocol Last Admin: 04/27/18 21:48 Dose: 100 mls/hr Insulin Human Regular (Novolin R) 0 unit SC ACHS [facility] PRN Reason: Protocol Last Admin: 04/27/18 22:15 Dose: Not Given Magnesium Oxide (Mag-Ox) 400 mg PO DAILY [facility] Stop: 04/30/18 22:01 Midodrine (Proamatine) 2.5 mg PO TID [facility] Last Admin: 04/27/18 17:22 Dose: 2.5 mg Morphine Sulfate (Morphine) 2 mg IVP DAILY PRN PRN Reason: Pain, severe (8-10) Last Admin: 04/27/18 09:27 Dose: 2 mg Pantoprazole Sodium (Protonix Ec Tab) 40 mg PO DAILY [facility] Potassium Chloride (K-Dur 20 Meq Er Tab) 20 meq PO DAILY [facility] Stop: 04/29/18 18:01 Last Admin: 04/27/18 17:22 Dose: 20 meq Tamsulosin HCl (Flomax) 0.4 mg PO BID [facility] Last Admin: 04/27/18 18:00 Dose: 0.4 mg Zinc Sulfate (Zinc Sulfate 220 Mg Cap) 220 mg PO DAILY [facility] Last Admin: 04/27/18 09:19 Dose: 220 mg Zolpidem Tartrate (Ambien) 5 mg PO HS PRN PRN Reason: Insomnia Last Admin: 04/25/18 21:27 Dose: 5 mg - Labs Labs: 04/27/18 07:52 04/27/18 07:52 PT 10.7 SECONDS (9.7-12.2) 04/18/18 05:36 INR 1.0 04/18/18 05:36 APTT 32 SECONDS (21-34) 04/18/18 05:36 Assessment and Plan (1) Cachectic Status: Acute (2) Abdominal pain Status: Acute (3) CAD (coronary artery disease) Status: Acute (4) Dehydration Status: Acute (5) Diabetes mellitus Status: Acute (6) Hematuria Status: Acute
--- NOTE | 2018-04-28 04:51 | PN ---
Copied To: Alex Siddiqui MD Attending MD: Alex Siddiqui MD DATE: 04/27/2018 SUBJECTIVE: The patient is status post cystoscopy. He is afebrile. No chest pain. He has some postop pain. PHYSICAL EXAMINATION: VITAL SIGNS: Blood pressure 113/76, pulse 94, respiratory rate 18, and temperature 97.5. LUNGS: Clear. CARDIOVASCULAR SYSTEM: S1 and S2 regular. ABDOMEN: Soft. ASSESSMENT: 1. Hemorrhagic cystitis, status post cystoscopy. 2. Diabetes. 3. Coronary artery disease. PLAN: Medical management. Monitor the patient. Alex Siddiqui MD
[2018-04-28] MEDS: metroNIDAZOLE IV 500 mg/100 ml 500 MG/100 ML BAG IVPB SCH ×3 (05:13→20:36)
[2018-04-28 08:42] LABS: BASO % 0.8 % (0.0-2.0); EOS # 0.2 K/uL (0.0-0.7); EOS % 4.2 % (0.0-4.0); HEMOGLOBIN 9.4 g/dL (12.0-18.0); LYMPH # 1.4 K/uL (1.0-4.3); LYMPH % 24.3 % (20.0-40.0); MEAN CELL VOLUME 85.1 fL (80.0-94.0); MEAN CORPUSCULAR HEMOGLOBIN 27.8 pg (27.0-31.0); MEAN CORPUSCULAR HGB CONC 32.6 g/dL (33.0-37.0); MEAN PLATELET VOLUME 8.3 fL (7.2-11.7); MONO # 0.5 K/uL (0.0-0.8); MONO % 9.1 % (0.0-10.0); NEUT # 3.6 K/uL (1.8-7.0); NEUT % 61.6 % (50.0-75.0); NRBC % 0.2 % (0.0-2.0); RBC 3.39 Mil/uL (4.40-5.90); WHITE BLOOD COUNT 5.9 K/uL (4.8-10.8)
[2018-04-28 08:59] LABS: BLOOD UREA NITROGEN 7 mg/dL (9-20); CALCIUM 9.4 mg/dl (8.6-10.4); GFR NON-AFRICAN AMERICAN > 60
[2018-04-28] MEDS ORDERED: Gadodiamide 287 mg/ml 20 ml IV ONE (09:20)
[2018-04-28] MEDS: Pantoprazole 40 mg EC Tab PO SCH (10:17)
[2018-04-28] MEDS: Potassium Chloride 20 mEq ER Tab PO SCH (10:17)
[2018-04-28] MEDS: (Novolin R) Insulin Human Regular 100 units/ml vial SC SCH ×4 (10:19→21:21)
[2018-04-28] MEDS: Acetaminophen-Codeine 300/30 mg Tab PO PRN ×3 (10:31→19:17)
--- NOTE | 2018-04-28 10:42 | CP.PCM.PN ---
Subjective - Date & Time of Evaluation Date of Evaluation: 04/28/18 Time of Evaluation: 10:39 - Subjective Subjective: Podiatry Progress Note for Dr. Reyes 77 yo male, seen and evaluated at bedside, for b/l heel DTI. Patient is resting comfortably in bed, however in mild pain to his b/l heels. Patient is resting in multipodus boots as requested. Patient notes that he just returned from getting his MRI of his b/l heels. Denies N/V/F/SOB/CP. Objective - Vital Signs/Intake and Output Vital Signs (last 24 hours): Temp Pulse Resp BP Pulse Ox 98.3 F 98 H 20 116/73 94 L 04/28/18 08:02 04/28/18 08:02 04/28/18 08:02 04/28/18 08:02 04/28/18 08:02 Intake and Output: 04/28/18 04/28/18 06:59 18:59 Intake Total 440 220 Output Total 100 Balance 440 120 - Medications Medications: Current Medications Acetaminophen (Tylenol 650mg/20.3ml Solution Ud) 650 mg PO Q4H PRN PRN Reason: Pain, moderate (4-7) Last Admin: 04/26/18 21:30 Dose: 650 mg Acetaminophen/Codeine Phosphate (Tylenol/Codeine 300 Mg/30 Mg) 2 ea PO Q4 PRN PRN Reason: Pain, moderate (4-7) Last Admin: 04/28/18 10:31 Dose: 2 ea Ascorbic Acid (Vitamin C 500 Mg Tab) 500 mg PO DAILY [facility] Last Admin: 04/28/18 10:17 Dose: 500 mg Docusate Sodium (Colace) 100 mg PO BID [facility] Last Admin: 04/28/18 10:17 Dose: 100 mg Escitalopram Oxalate (Lexapro) 10 mg PO DAILY [facility] Last Admin: 04/28/18 10:17 Dose: 10 mg Gabapentin (Neurontin) 100 mg PO TID [facility] Last Admin: 04/28/18 10:18 Dose: 100 mg Metronidazole (Flagyl) 500 mg in 100 mls @ 100 mls/hr IVPB Q8H [facility] PRN Reason: Protocol Last Admin: 04/28/18 05:13 Dose: 100 mls/hr Insulin Human Regular (Novolin R) 0 unit SC ACHS [facility] PRN Reason: Protocol Last Admin: 04/28/18 10:19 Dose: 4 units Magnesium Oxide (Mag-Ox) 400 mg PO DAILY [facility] Stop: 04/30/18 22:01 Midodrine (Proamatine) 2.5 mg PO TID [facility] Last Admin: 04/28/18 10:19 Dose: Not Given Morphine Sulfate (Morphine) 2 mg IVP DAILY PRN PRN Reason: Pain, severe (8-10) Last Admin: 04/28/18 05:59 Dose: 2 mg Pantoprazole Sodium (Protonix Ec Tab) 40 mg PO DAILY [facility] Last Admin: 04/28/18 10:17 Dose: 40 mg Potassium Chloride (K-Dur 20 Meq Er Tab) 20 meq PO DAILY [facility] Stop: 04/29/18 18:01 Last Admin: 04/28/18 10:17 Dose: 20 meq Tamsulosin HCl (Flomax) 0.4 mg PO BID [facility] Last Admin: 04/28/18 10:18 Dose: 0.4 mg Zinc Sulfate (Zinc Sulfate 220 Mg Cap) 220 mg PO DAILY [facility] Last Admin: 04/28/18 10:17 Dose: 220 mg Zolpidem Tartrate (Ambien) 5 mg PO HS PRN PRN Reason: Insomnia Last Admin: 04/28/18 00:53 Dose: 5 mg - Labs Labs: 04/28/18 08:20 04/28/18 08:20 PT 10.7 SECONDS (9.7-12.2) 04/18/18 05:36 INR 1.0 04/18/18 05:36 APTT 32 SECONDS (21-34) 04/18/18 05:36 - Constitutional Appears: Well, Non-toxic, No Acute Distress - Head Exam Head Exam: ATRAUMATIC, NORMOCEPHALIC - Extremities Exam Additional comments: Bilateral lower extremity focused exam: Vascular: DP 2/4 bilaterally, PT 1/4 bilaterally, temperature gradient warm to cool from proximal knees to distal toes, CFT >3 secs x10 digit, no edema noted bilaterally Ortho: mild pain on palpation to bilateral heels Neuro: Gross sensation intact, protective sensation diminished b/l Derm: Right heel: hyperkeratotic border with necrotic wound base at the plantar posterior aspect of the heel measuring approximately 8 cm x8 cm, mild malodor noted, mild drainage , superficial opening to the eschar noted at distal lateral aspect of the heel. No erythema, no probe to bone, no undermining, no tunneling, no tracking, no streaking, no abscess or fluctance Left heel: deep tissue injury noted to the posterior plantar heel with deep tissue bruising at the plantar posterior aspect of the heel measuring approximately 6 cm x 7 cm , no opening, no malodor, no drainage, no probe to bone, no undermining, no tracking, no tunneling, no erythema, no purulence, no clinical signs of infection to left - Neurological Exam Neurological Exam: Alert, Awake, Oriented x3 - Psychiatric Exam Psychiatric exam: Normal Affect, Normal Mood Assessment and Plan - Assessment and Plan (Free Text) Assessment: 77 yo male seen and evaluated for bilateral deep tissue injury to heels secondary to pressure and DM Plan: Patient seen and evaluated Plan discussed in detail with Dr. Reyes Chart, labs and vitals reviewed; afebrile and absent leukocytosis MRI ordered and taken to r/o osteomyelitis of heels; results pending Wounds dressed with betadine wet to dry, dsd, abd and kerlix Wound culture taken of right foot; staph aureus Placed in multipodus boots and advised to wear at all times while in bed to offload heels Podiatry will follow patient while in house
--- NOTE | 2018-04-28 16:52 | MRI ---
MRI left hindfoot History: Ulcer. Evaluate for osteomyelitis. Comparison: None available. Technique: Multi-echo multiplanar sequences were performed through the left hindfoot without the use of intravenous contrast. Findings: Please note the study was limited secondary to prominent patient motion artifact and patient noncompliance. Prominent soft tissue ulceration/defect seen within the posterior soft tissues at the level of the posterior calcaneus. At that level, there is a suggestion of a 1.4 centimeter focal area of enhancing increased STIR signal which may represent a developing phlegmon and/or abscess collection as demonstrated on series 12, image 28. Clinical correlation. The soft tissue defect extends to the level of the posterior cortex of the posterior calcaneus. Some minimal reactive edema is seen within the posterior lateral calcaneus with some minimal patchy decreased T1 signal. These findings likely do not represent a gross acute osteomyelitis ; however, some mild early acute infectious changes cannot be excluded given the associated mild reactive edema. Clinical correlation. 6 millimeter subchondral cyst formation and or intraosseous ganglia formation seen within the anterior to mid talus with some mild surrounding reactive edema. Small to moderate ankle joint effusion. Degenerative changes noted at the dorsal aspect of the talonavicular joint space. Subchondral cyst formation noted at the base of the 3rd metatarsal bone. Prominent thickening of the plantar fascia measuring up to 1.2 centimeters suggestive for a moderate plantar fascitis. Adjacent bony spurring of the calcaneus. 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 Moderate ankle joint effusion. Fraying with increased signal seen within the deep fibers of deltoid ligament which may represent sprain and or partial tearing. 5 millimeter subchondral cyst formation noted within the mid calcaneus near the sinus tarsi. Degenerative changes noted at the talonavicular joint space. Minimal reactive edema seen within the dorsal aspect of the navicular bone. Minimal reactive edema noted at the base of 4th metatarsal bone. Reticulation and edema within soft tissues. Anterior extensor tendons are preserved. Mild tenosynovitis of posterior tibial tendon sheath. Remainder of the medial flexor tendons are preserved. Suggestion of a partial split tear of the peroneus brevis tendon. Anterior and posterior tibiofibular ligaments appear preserved. Moderate grade sprains of the anterior and posterior talofibular ligaments. Impression: Please note the study was limited secondary to prominent patient motion artifact and patient noncompliance. 1. Prominent soft tissue ulceration/defect seen within the posterior soft tissues at the level of the posterior calcaneus. At that level, there is a suggestion of a 1.4 centimeter focal area of enhancing increased STIR signal which may represent a developing phlegmon and/or abscess collection as demonstrated on series 12, image 28. Clinical correlation. The soft tissue defect extends to the level of the posterior cortex of the posterior calcaneus. Some minimal reactive edema is seen within the posterior lateral calcaneus with some minimal patchy decreased T1 signal. These findings likely do not represent a gross acute osteomyelitis ; however, some mild early acute infectious changes cannot be excluded given the associated mild reactive edema. Clinical correlation. 2. 6 millimeter subchondral cyst formation and or intraosseous ganglia formation seen within the anterior to mid talus with some mild surrounding reactive edema. 3. Small to moderate ankle joint effusion. 4. Degenerative changes noted at the dorsal aspect of the talonavicular joint space. 5. Subchondral cyst formation noted at the base of the 3rd metatarsal bone. 6. Prominent thickening of the plantar fascia measuring up to 1.2 centimeters suggestive for a moderate plantar fascitis. Adjacent bony spurring of the calcaneus. 7. 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 8. Fraying with increased signal seen within the deep fibers of deltoid ligament which may represent sprain and or partial tearing. 9. 5 millimeter subchondral cyst formation noted within the mid calcaneus near the sinus tarsi. 10. Degenerative changes noted at the talonavicular joint space. 11. Minimal reactive edema seen within the dorsal aspect of the navicular bone. 12. Minimal reactive edema noted at the base of 4th metatarsal bone. 13. Reticulation and edema within soft tissues. 14. Mild tenosynovitis of posterior tibial tendon sheath. Remainder of the medial flexor tendons are preserved. Suggestion of a partial split tear of the peroneus brevis tendon. 15. Moderate grade sprains of the anterior and posterior talofibular ligaments.
[2018-04-28] MEDS: Magnesium Oxide 400 mg Tab UD PO SCH (21:14)
--- NOTE | 2018-04-28 22:00 | CP.PCM.PN ---
Objective - Vital Signs/Intake and Output Vital Signs (last 24 hours): Temp Pulse Resp BP Pulse Ox 98.4 F 103 H 20 95/57 L 98 04/28/18 16:28 04/28/18 16:28 04/28/18 16:28 04/28/18 16:28 04/28/18 16:28 Intake and Output: 04/28/18 04/29/18 18:59 06:59 Intake Total 680 Output Total 600 Balance 80 - Medications Medications: Current Medications Acetaminophen (Tylenol 650mg/20.3ml Solution Ud) 650 mg PO Q4H PRN PRN Reason: Pain, moderate (4-7) Last Admin: 04/26/18 21:30 Dose: 650 mg Acetaminophen/Codeine Phosphate (Tylenol/Codeine 300 Mg/30 Mg) 2 ea PO Q4 PRN PRN Reason: Pain, moderate (4-7) Last Admin: 04/28/18 19:17 Dose: 2 ea Ascorbic Acid (Vitamin C 500 Mg Tab) 500 mg PO DAILY [facility] Last Admin: 04/28/18 10:17 Dose: 500 mg Docusate Sodium (Colace) 100 mg PO BID [facility] Last Admin: 04/28/18 18:13 Dose: 100 mg Escitalopram Oxalate (Lexapro) 10 mg PO DAILY [facility] Last Admin: 04/28/18 10:17 Dose: 10 mg Gabapentin (Neurontin) 100 mg PO TID [facility] Last Admin: 04/28/18 18:14 Dose: 100 mg Metronidazole (Flagyl) 500 mg in 100 mls @ 100 mls/hr IVPB Q8H [facility] PRN Reason: Protocol Last Admin: 04/28/18 20:36 Dose: 100 mls/hr Insulin Human Regular (Novolin R) 0 unit SC ACHS [facility] PRN Reason: Protocol Last Admin: 04/28/18 21:21 Dose: Not Given Magnesium Oxide (Mag-Ox) 400 mg PO DAILY [facility] Stop: 04/30/18 22:01 Last Admin: 04/28/18 21:14 Dose: 400 mg Midodrine (Proamatine) 2.5 mg PO TID [facility] Last Admin: 04/28/18 18:15 Dose: 2.5 mg Morphine Sulfate (Morphine) 2 mg IVP DAILY PRN PRN Reason: Pain, severe (8-10) Last Admin: 04/28/18 05:59 Dose: 2 mg Pantoprazole Sodium (Protonix Ec Tab) 40 mg PO DAILY [facility] Last Admin: 04/28/18 10:17 Dose: 40 mg Potassium Chloride (K-Dur 20 Meq Er Tab) 20 meq PO DAILY [facility] Stop: 04/29/18 18:01 Last Admin: 04/28/18 10:17 Dose: 20 meq Tamsulosin HCl (Flomax) 0.4 mg PO BID [facility] Last Admin: 04/28/18 18:13 Dose: 0.4 mg Zinc Sulfate (Zinc Sulfate 220 Mg Cap) 220 mg PO DAILY [facility] Last Admin: 04/28/18 10:17 Dose: 220 mg Zolpidem Tartrate (Ambien) 5 mg PO HS PRN PRN Reason: Insomnia Last Admin: 04/28/18 00:53 Dose: 5 mg - Labs Labs: 04/28/18 08:20 04/28/18 08:20 PT 10.7 SECONDS (9.7-12.2) 04/18/18 05:36 INR 1.0 04/18/18 05:36 APTT 32 SECONDS (21-34) 04/18/18 05:36 Assessment and Plan (1) Cachectic Status: Acute (2) Abdominal pain Status: Acute (3) CAD (coronary artery disease) Status: Acute (4) Dehydration Status: Acute (5) Diabetes mellitus Status: Acute (6) Hematuria Status: Acute
--- NOTE | 2018-04-29 02:35 | PN ---
Copied To: Alex Siddiqui MD Attending MD: Alex Siddiqui MD DATE: 04/28/2018 SUBJECTIVE: The patient is postop. He has postop pain. He denies any fever or chills. His hemorrhagic cystitis has improved. No fever. He is feeling better. PHYSICAL EXAMINATION: VITAL SIGNS: Blood pressure 95/57, pulse 103, respiratory rate 20, and temperature 98.4. LUNGS: Clear. CARDIOVASCULAR SYSTEM: S1 and S2 regular. ABDOMEN: Soft, nontender. Ranulfo sounds are positive. Paulson site is clean. ASSESSMENT: 1. Hemorrhagic cystitis, improved. 2. Dehydration. 3. Anemia due to chronic disease. 4. Type 2 diabetes. PLAN: Medical management. Monitor the patient. Alex Siddiqui MD
[2018-04-29] MEDS: metroNIDAZOLE IV 500 mg/100 ml 500 MG/100 ML BAG IVPB SCH ×3 (04:25→20:41)
[2018-04-29] MEDS: (Novolin R) Insulin Human Regular 100 units/ml vial SC SCH ×4 (08:13→21:04)
[2018-04-29] MEDS: Acetaminophen-Codeine 300/30 mg Tab PO PRN ×2 (08:17→21:06)
[2018-04-29 09:20] LABS: BASO # 0.1 K/uL (0.0-0.2); BASO % 0.8 % (0.0-2.0); EOS # 0.2 K/uL (0.0-0.7); EOS % 3.2 % (0.0-4.0); HEMOGLOBIN 9.9 g/dL (12.0-18.0); LYMPH # 1.7 K/uL (1.0-4.3); LYMPH % 25.1 % (20.0-40.0); MEAN CELL VOLUME 85.1 fL (80.0-94.0); MEAN CORPUSCULAR HEMOGLOBIN 27.9 pg (27.0-31.0); MEAN CORPUSCULAR HGB CONC 32.7 g/dL (33.0-37.0); MEAN PLATELET VOLUME 8.4 fL (7.2-11.7); MONO # 0.6 K/uL (0.0-0.8); MONO % 8.2 % (0.0-10.0); NEUT # 4.2 K/uL (1.8-7.0); NEUT % 62.7 % (50.0-75.0); RBC 3.55 Mil/uL (4.40-5.90); RED CELL DISTRIBUTION WIDTH 18.2 % (11.5-14.5); WHITE BLOOD COUNT 6.7 K/uL (4.8-10.8)
[2018-04-29 09:23] LABS: ALB/GLOB RATIO 0.8 (1.0-2.1); ALBUMIN 2.4 g/dL (3.5-5.0); ALT/SGPT 23 U/L (21-72); AST/SGOT 15 U/L (17-59); BLOOD UREA NITROGEN 8 mg/dL (9-20); CALCIUM 9.9 mg/dl (8.6-10.4); GFR NON-AFRICAN AMERICAN > 60
[2018-04-29] MEDS: Potassium Chloride 20 mEq ER Tab PO SCH (10:18)
[2018-04-29] MEDS: Pantoprazole 40 mg EC Tab PO SCH (10:19)
[2018-04-29] MEDS: Magnesium Oxide 400 mg Tab UD PO SCH (10:19)
--- NOTE | 2018-04-29 20:37 | CP.PCM.PN ---
Subjective - Date & Time of Evaluation Date of Evaluation: 04/29/18 Time of Evaluation: 20:35 - Subjective Subjective: Podiatry Progress Note for Dr. Reyes 77 yo male seen and evaluated at bedside for b/l heel DTI. Patient states that he feels well today, however his bilateral heels continue to cause him pain. Patient continues to wear multipodus boots in bed at all times. Denies N/V/F/ SOB. Objective - Vital Signs/Intake and Output Vital Signs (last 24 hours): Temp Pulse Resp BP Pulse Ox 98.8 F 90 20 98/64 L 97 04/29/18 16:50 04/29/18 16:50 04/29/18 16:50 04/29/18 16:50 04/29/18 16:50 Intake and Output: 04/29/18 04/30/18 18:59 06:59 Output Total 250 Balance -250 - Medications Medications: Current Medications Acetaminophen (Tylenol 650mg/20.3ml Solution Ud) 650 mg PO Q4H PRN PRN Reason: Pain, moderate (4-7) Last Admin: 04/26/18 21:30 Dose: 650 mg Acetaminophen/Codeine Phosphate (Tylenol/Codeine 300 Mg/30 Mg) 2 ea PO Q4 PRN PRN Reason: Pain, moderate (4-7) Last Admin: 04/29/18 08:17 Dose: 2 ea Ascorbic Acid (Vitamin C 500 Mg Tab) 500 mg PO DAILY [facility] Last Admin: 04/29/18 10:21 Dose: 500 mg Docusate Sodium (Colace) 100 mg PO BID [facility] Last Admin: 04/29/18 17:19 Dose: 100 mg Escitalopram Oxalate (Lexapro) 10 mg PO DAILY [facility] Last Admin: 04/29/18 10:19 Dose: 10 mg Gabapentin (Neurontin) 100 mg PO TID [facility] Last Admin: 04/29/18 17:19 Dose: 100 mg Metronidazole (Flagyl) 500 mg in 100 mls @ 100 mls/hr IVPB Q8H [facility] PRN Reason: Protocol Last Admin: 04/29/18 12:30 Dose: 100 mls/hr Insulin Human Regular (Novolin R) 0 unit SC ACHS [facility] PRN Reason: Protocol Last Admin: 04/29/18 17:20 Dose: Not Given Magnesium Oxide (Mag-Ox) 400 mg PO DAILY [facility] Stop: 04/30/18 22:01 Last Admin: 04/29/18 10:19 Dose: 400 mg Midodrine (Proamatine) 2.5 mg PO TID [facility] Last Admin: 04/29/18 17:19 Dose: 2.5 mg Morphine Sulfate (Morphine) 2 mg IVP DAILY PRN PRN Reason: Pain, severe (8-10) Last Admin: 04/28/18 05:59 Dose: 2 mg Pantoprazole Sodium (Protonix Ec Tab) 40 mg PO DAILY [facility] Last Admin: 04/29/18 10:19 Dose: 40 mg Tamsulosin HCl (Flomax) 0.4 mg PO BID [facility] Last Admin: 04/29/18 17:19 Dose: 0.4 mg Zinc Sulfate (Zinc Sulfate 220 Mg Cap) 220 mg PO DAILY [facility] Last Admin: 04/29/18 10:19 Dose: 220 mg Zolpidem Tartrate (Ambien) 5 mg PO HS PRN PRN Reason: Insomnia Last Admin: 04/28/18 00:53 Dose: 5 mg - Labs Labs: 04/29/18 08:58 04/29/18 08:58 PT 10.7 SECONDS (9.7-12.2) 04/18/18 05:36 INR 1.0 04/18/18 05:36 APTT 32 SECONDS (21-34) 04/18/18 05:36 - Constitutional Appears: Well, Non-toxic, No Acute Distress - Head Exam Head Exam: ATRAUMATIC, NORMOCEPHALIC - Extremities Exam Additional comments: Bilateral LE focused exam: Vascular: DP/PT 1/4 bilaterally, TG warm to cool from proximal knees to distal toes, CFT >3 secs x10 digit, no edema noted bilaterally Ortho: pain upon palpation to bilateral heels, no pain elicited with calf compression bilaterally Neuro: Gross sensation intact, protective sensation diminished b/l Derm: Right heel: hyperkeratotic border with necrotic wound base at the plantar posterior aspect of the heel measuring approximately 8 cm x8 cm, mild malodor noted, mild drainage , superficial opening to the eschar noted at distal lateral aspect of the heel. No erythema, no probe to bone, no undermining, no tunneling, no tracking, no streaking, no abscess or fluctance Left heel: deep tissue injury noted to the posterior plantar heel with deep tissue bruising at the plantar posterior aspect of the heel measuring approximately 6 cm x 7 cm , no opening, no malodor, no drainage, no probe to bone, no undermining, no tracking, no tunneling, no erythema, no purulence, no clinical signs of infection to left - Neurological Exam Neurological Exam: Alert, Awake - Psychiatric Exam Psychiatric exam: Normal Affect, Normal Mood Assessment and Plan - Assessment and Plan (Free Text) Assessment: 77 yo male seen and evaluated for bilateral DTI to heels secondary to pressure and DM Plan: Patient seen and evaluated Plan discussed in detail with Dr. Reyes Chart, labs and vitals reviewed; afebrile and absent leukocytosis (04/29) MRI of left hindfoot taken to r/o OM of heel; Study was limited secondary to prominent patient motion. Suggestion of 1.4 cm focal area of enhanced signal which may represent developing abscess collection. Findings likely do not represent a gross acute OM however some mild early acute infectious changes cannot be excluded given associated reactive edema. Wounds dressed with betadine wet to dry, dsd, abd and kerlix Wound culture taken of right foot; staph aureus (04/27) Continue to wear multipodus boots at all times while in bed Podiatry will follow patient while in house
--- NOTE | 2018-04-29 20:51 | CP.PCM.PN ---
Objective - Vital Signs/Intake and Output Vital Signs (last 24 hours): Temp Pulse Resp BP Pulse Ox 98.8 F 90 20 98/64 L 97 04/29/18 16:50 04/29/18 16:50 04/29/18 16:50 04/29/18 16:50 04/29/18 16:50 Intake and Output: 04/29/18 04/30/18 18:59 06:59 Output Total 250 Balance -250 - Medications Medications: Current Medications Acetaminophen (Tylenol 650mg/20.3ml Solution Ud) 650 mg PO Q4H PRN PRN Reason: Pain, moderate (4-7) Last Admin: 04/26/18 21:30 Dose: 650 mg Acetaminophen/Codeine Phosphate (Tylenol/Codeine 300 Mg/30 Mg) 2 ea PO Q4 PRN PRN Reason: Pain, moderate (4-7) Last Admin: 04/29/18 08:17 Dose: 2 ea Ascorbic Acid (Vitamin C 500 Mg Tab) 500 mg PO DAILY [facility] Last Admin: 04/29/18 10:21 Dose: 500 mg Docusate Sodium (Colace) 100 mg PO BID [facility] Last Admin: 04/29/18 17:19 Dose: 100 mg Escitalopram Oxalate (Lexapro) 10 mg PO DAILY [facility] Last Admin: 04/29/18 10:19 Dose: 10 mg Gabapentin (Neurontin) 100 mg PO TID [facility] Last Admin: 04/29/18 17:19 Dose: 100 mg Metronidazole (Flagyl) 500 mg in 100 mls @ 100 mls/hr IVPB Q8H [facility] PRN Reason: Protocol Last Admin: 04/29/18 20:41 Dose: 100 mls/hr Insulin Human Regular (Novolin R) 0 unit SC ACHS [facility] PRN Reason: Protocol Last Admin: 04/29/18 17:20 Dose: Not Given Magnesium Oxide (Mag-Ox) 400 mg PO DAILY [facility] Stop: 04/30/18 22:01 Last Admin: 04/29/18 10:19 Dose: 400 mg Midodrine (Proamatine) 2.5 mg PO TID [facility] Last Admin: 04/29/18 17:19 Dose: 2.5 mg Morphine Sulfate (Morphine) 2 mg IVP DAILY PRN PRN Reason: Pain, severe (8-10) Last Admin: 04/28/18 05:59 Dose: 2 mg Pantoprazole Sodium (Protonix Ec Tab) 40 mg PO DAILY [facility] Last Admin: 04/29/18 10:19 Dose: 40 mg Tamsulosin HCl (Flomax) 0.4 mg PO BID [facility] Last Admin: 04/29/18 17:19 Dose: 0.4 mg Zinc Sulfate (Zinc Sulfate 220 Mg Cap) 220 mg PO DAILY [facility] Last Admin: 04/29/18 10:19 Dose: 220 mg Zolpidem Tartrate (Ambien) 5 mg PO HS PRN PRN Reason: Insomnia Last Admin: 04/28/18 00:53 Dose: 5 mg - Labs Labs: 04/29/18 08:58 04/29/18 08:58 PT 10.7 SECONDS (9.7-12.2) 04/18/18 05:36 INR 1.0 04/18/18 05:36 APTT 32 SECONDS (21-34) 04/18/18 05:36 Assessment and Plan (1) Cachectic Status: Acute (2) Abdominal pain Status: Acute (3) CAD (coronary artery disease) Status: Acute (4) Dehydration Status: Acute (5) Diabetes mellitus Status: Acute (6) Hematuria Status: Acute
--- NOTE | 2018-04-30 01:48 | PN ---
Copied To: Alex Siddiqui MD Attending MD: Alex Siddiqui MD DATE: 04/29/2018 SUBJECTIVE: The patient is feeling better. He gets pain. He denies any shortness of breath. No chest pain. He is status post cystoscopy. PHYSICAL EXAMINATION: VITAL SIGNS: Blood pressure 98/64, pulse 90, respiratory rate 20, temperature 98.8. LUNGS: Clear. CVS: S1, S2. Regular. ABDOMEN: Soft. ASSESSMENT: 1. Hemorrhagic cystitis, status post cystoscopy. 2. Right foot infection. 3. Type 2 diabetes. 4. Hypertension. 5. Coronary artery disease. PLAN: Medical management, possible transfer to senior living in the a.m. Alex Siddiqui MD
[2018-04-30] MEDS ORDERED: Gadodiamide 287 mg/ml 20 ml IV ONE (03:00)
[2018-04-30] MEDS: metroNIDAZOLE IV 500 mg/100 ml 500 MG/100 ML BAG IVPB SCH ×2 (04:30→12:13)
[2018-04-30] MEDS: (Novolin R) Insulin Human Regular 100 units/ml vial SC SCH ×4 (08:01→21:36)
--- NOTE | 2018-04-30 08:32 | CP.PCM.PN ---
Subjective - Date & Time of Evaluation Date of Evaluation: 04/30/18 Time of Evaluation: 08:28 - Subjective Subjective: Podiatry Progress Note for Dr. Reyes 77 yo male seen and evaluated at bedside for b/l heel DTI, R>L. Patient is resting in bed, in NAD. Patient reports he did not sleep well last night. Reports pain to the entire body and to the bilateral heels. Patient denies nausea, fever, shortness of breath, chest pains or chills. Patient continues to wear multipodus boots in bed at all times. Dressing clean, dry, and intact Objective - Vital Signs/Intake and Output Vital Signs (last 24 hours): Temp Pulse Resp BP Pulse Ox 98.5 F 100 H 20 109/70 95 04/30/18 05:30 04/30/18 05:30 04/30/18 05:30 04/30/18 05:30 04/30/18 05:30 Intake and Output: 04/30/18 04/30/18 06:59 18:59 Intake Total 300 Output Total 200 Balance 100 - Medications Medications: Current Medications Acetaminophen (Tylenol 650mg/20.3ml Solution Ud) 650 mg PO Q4H PRN PRN Reason: Pain, moderate (4-7) Last Admin: 04/26/18 21:30 Dose: 650 mg Acetaminophen/Codeine Phosphate (Tylenol/Codeine 300 Mg/30 Mg) 2 ea PO Q4 PRN PRN Reason: Pain, moderate (4-7) Last Admin: 04/29/18 21:06 Dose: 2 ea Ascorbic Acid (Vitamin C 500 Mg Tab) 500 mg PO DAILY [facility] Last Admin: 04/29/18 10:21 Dose: 500 mg Docusate Sodium (Colace) 100 mg PO BID [facility] Last Admin: 04/29/18 17:19 Dose: 100 mg Escitalopram Oxalate (Lexapro) 10 mg PO DAILY [facility] Last Admin: 04/29/18 10:19 Dose: 10 mg Gabapentin (Neurontin) 100 mg PO TID [facility] Last Admin: 04/29/18 17:19 Dose: 100 mg Metronidazole (Flagyl) 500 mg in 100 mls @ 100 mls/hr IVPB Q8H [facility] PRN Reason: Protocol Last Admin: 04/30/18 04:30 Dose: 100 mls/hr Insulin Human Regular (Novolin R) 0 unit SC ACHS [facility] PRN Reason: Protocol Last Admin: 04/30/18 08:01 Dose: 2 units Magnesium Oxide (Mag-Ox) 400 mg PO DAILY [facility] Stop: 04/30/18 22:01 Last Admin: 04/29/18 10:19 Dose: 400 mg Midodrine (Proamatine) 2.5 mg PO TID [facility] Last Admin: 04/29/18 17:19 Dose: 2.5 mg Morphine Sulfate (Morphine) 2 mg IVP DAILY PRN PRN Reason: Pain, severe (8-10) Last Admin: 04/30/18 01:00 Dose: 2 mg Pantoprazole Sodium (Protonix Ec Tab) 40 mg PO DAILY [facility] Last Admin: 04/29/18 10:19 Dose: 40 mg Tamsulosin HCl (Flomax) 0.4 mg PO BID [facility] Last Admin: 04/29/18 17:19 Dose: 0.4 mg Zinc Sulfate (Zinc Sulfate 220 Mg Cap) 220 mg PO DAILY [facility] Last Admin: 04/29/18 10:19 Dose: 220 mg Zolpidem Tartrate (Ambien) 5 mg PO HS PRN PRN Reason: Insomnia Last Admin: 04/28/18 00:53 Dose: 5 mg - Labs Labs: 04/29/18 08:58 04/29/18 08:58 PT 10.7 SECONDS (9.7-12.2) 04/18/18 05:36 INR 1.0 04/18/18 05:36 APTT 32 SECONDS (21-34) 04/18/18 05:36 - Constitutional Appears: Well, Non-toxic, No Acute Distress - Extremities Exam Extremities Exam: absent: Calf Tenderness Additional comments: Bilateral LE focused exam: Vascular: DP/PT 1/4 bilaterally, TG warm to cool from proximal knees to distal toes, CFT >3 secs x10 digit, no edema noted bilaterally Ortho: pain upon palpation to bilateral heels, no pain elicited with calf compression bilaterally Neuro: Gross sensation intact, protective sensation diminished b/l Derm: Right heel: hyperkeratotic border with necrotic wound base at the plantar posterior aspect of the heel measuring approximately 8 cm x8 cm, mild malodor, superficial opening to the eschar noted at distal lateral aspect of the heel. There was .3 cc of purulence from the eschar opening. No erythema, no probe to bone, no undermining, no tunneling, no tracking, no streaking, no abscess or fluctance Left heel: deep tissue injury noted to the posterior plantar heel with deep tissue bruising at the plantar posterior aspect of the heel measuring approximately 6 cm x 7 cm , no opening, no malodor, no drainage, no probe to bone, no undermining, no tracking, no tunneling, no erythema, no purulence, no clinical signs of infection to left, left heel soft tissue is soft unable to appreciate fluctanance or abscess - Neurological Exam Neurological Exam: Alert, Awake, Oriented x3 - Psychiatric Exam Psychiatric exam: Normal Affect, Normal Mood Assessment and Plan - Assessment and Plan (Free Text) Assessment: 77 yo male seen and evaluated for bilateral DTI to heels secondary to pressure and DM, r/o OM Plan: Patient seen and evaluated Plan discussed in detail with Dr. Reyes Chart, labs and vitals reviewed; afebrile and absent leukocytosis (04/29) MRI of left hindfoot taken to r/o OM of heel; Study was limited secondary to prominent patient motion. Suggestion of 1.4 cm focal area of enhanced signal which may represent developing abscess collection. Findings likely do not represent a gross acute OM however some mild early acute infectious changes cannot be excluded given associated reactive edema. Ordered MRI of right heel Wounds dressed with betadine wet to dry, dsd, abd and kerlix WC R heel: staph aureus (04/27) Continue to wear multipodus boots at all times while in bed Podiatry will follow patient while in house
--- NOTE | 2018-04-30 08:45 | OP ---
Copied To: Cherelle Longo MD Attending MD: Cherelle Longo MD PROCEDURE DATE: 04/27/2018 PREOPERATIVE DIAGNOSES: Hematuria, rule out bladder tumor, prostatic hypertrophy. POSTOPERATIVE DIAGNOSES: Hematuria, prostatic hypertrophy, no evidence of any bladder tumor. PROCEDURES: Cystoscopy, irrigating of some clots. DESCRIPTION OF PROCEDURE: While the patient in lithotomy position and after starting anesthesia, genitalia were prepped and draped in sterile fashion. A #22 scope was inserted under direct vision, which revealed the urethra normal. Moderate prostatic enlargement, but not causing any obstruction. The bladder neck opened and not elevated. Bladder itself showed trabeculation 1+, no tumor, multiple small clots irrigated out. Inspecting the bladder totally dome, lateral wall, and floor all normal except for trabeculation. No evidence of any tumor or stone. Both orifices localized on the trigone and within normal limit. After emptying the bladder, the scope was removed. The patient was transferred to the recovery room. I called the family and mostly likely we will send him home tomorrow. Cherelle Longo MD
[2018-04-30] MEDS: Acetaminophen-Codeine 300/30 mg Tab PO PRN ×2 (09:13→19:08)
[2018-04-30] MEDS: Pantoprazole 40 mg EC Tab PO SCH (09:16)
[2018-04-30] MEDS: Magnesium Oxide 400 mg Tab UD PO SCH (09:16)
--- NOTE | 2018-04-30 16:05 | MRI ---
MRI right hindfoot History: Ulceration. Evaluate for osteomyelitis. Comparison: X-ray dated 04/25/2018 Technique: Multi-echo multiplanar sequences were performed through the right hindfoot without and with the use of intravenous contrast. Findings: Limited study secondary to prominent patient motion artifact. Soft tissue ulceration/defect seen within the posterior soft tissues at the level of the heel. At the level of the posterior calcaneus, there is mild patchy decreased T1 signal, mild patchy increased STIR signal, and mild patchy post-contrast enhancement concerning for early acute and or developing acute osteomyelitis. Clinical correlation. Mild patchy reactive edema seen within the medial malleolus of the distal tibia, nonspecific. 2-3 millimeter subchondral cyst formation within the mid calcaneus. Degenerative changes noted at the talonavicular joint space. Mild reactive edema and or subchondral cyst formation noted at the bases of the 3rd and 4th metatarsal bones. Achilles tendon preserved. Marked thickening of plantar fascia measuring up to 1 centimeters suggestive for a moderate to severe plantar fasciitis. 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 Small ankle joint effusion. Anterior extensor tendons are preserved. Medial flexor tendons are preserved. Split tear of the peroneus brevis tendon at the ankle mortise. Peroneus longus tendon appears preserved. Anterior and posterior tibiofibular ligaments are preserved. Anterior and posterior talofibular are preserved Fraying with increased signal seen within the deep fibers of the deltoid ligament suggestive for a moderate grade sprain and or partial tearing. Impression: Limited study secondary to prominent patient motion artifact. 1. Soft tissue ulceration/defect seen within the posterior soft tissues at the level of the heel. At the level of the posterior calcaneus, there is mild patchy decreased T1 signal, mild patchy increased STIR signal, and mild patchy post-contrast enhancement concerning for early acute and or developing acute osteomyelitis. Clinical correlation. 2. Mild patchy reactive edema seen within the medial malleolus of the distal tibia, nonspecific. 3. Marked thickening of plantar fascia measuring up to 1 centimeters suggestive for a moderate to severe plantar fasciitis. 4. 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 5. Split tear of the peroneus brevis tendon at the ankle mortise. 6. Fraying with increased signal seen within the deep fibers of the deltoid ligament suggestive for a moderate grade sprain and or partial tearing. Additional findings as above.
[2018-04-30] MEDS ORDERED: Oxycodone/Acetaminophen 5/325 mg Tab PO PRN (19:34)
[2018-04-30] MEDS ORDERED: Acetaminophen 650mg/20.3ml solution UD PO PRN (19:45)
--- NOTE | 2018-04-30 23:50 | CP.PCM.PN ---
Objective - Vital Signs/Intake and Output Vital Signs (last 24 hours): Temp Pulse Resp BP Pulse Ox 98.9 F 97 H 20 103/67 96 04/30/18 23:28 04/30/18 23:28 04/30/18 23:28 04/30/18 23:28 04/30/18 23:28 Intake and Output: 04/30/18 05/01/18 18:59 06:59 Intake Total 500 250 Output Total 300 Balance 200 250 - Medications Medications: Current Medications Acetaminophen (Tylenol 650mg/20.3ml Solution Ud) 650 mg PO Q4H PRN PRN Reason: Pain, Mild (1-3) Ascorbic Acid (Vitamin C 500 Mg Tab) 500 mg PO DAILY [facility] Last Admin: 04/30/18 09:18 Dose: 500 mg Collagenase (Santyl) 0 gm TOP DAILY [facility] Docusate Sodium (Colace) 100 mg PO BID [facility] Last Admin: 04/30/18 17:14 Dose: 100 mg Escitalopram Oxalate (Lexapro) 10 mg PO DAILY [facility] Last Admin: 04/30/18 09:15 Dose: 10 mg Gabapentin (Neurontin) 300 mg PO TID [facility] Vancomycin/Sodium Chloride (Vancomycin 1 Gm/Ns 200 Ml) 1 gm in 200 mls @ 133 mls/hr IVPB Q12H [facility] PRN Reason: Protocol Stop: 05/06/18 00:01 Aztreonam 1 gm/ Sodium (Chloride) 100 mls @ 200 mls/hr IVPB Q8H [facility] PRN Reason: Protocol Insulin Human Regular (Novolin R) 0 unit SC ACHS [facility] PRN Reason: Protocol Last Admin: 04/30/18 21:36 Dose: 2 units Metronidazole (Flagyl) 500 mg PO Q8H [facility] Last Admin: 04/30/18 21:34 Dose: 500 mg Midodrine (Proamatine) 2.5 mg PO TID [facility] Last Admin: 04/30/18 17:15 Dose: 2.5 mg Oxycodone/Acetaminophen (Percocet 5/325 Mg Tab) 2 tab PO Q4H PRN PRN Reason: Pain, moderate (4-7) Stop: 05/03/18 19:35 Pantoprazole Sodium (Protonix Ec Tab) 40 mg PO DAILY [facility] Last Admin: 04/30/18 09:16 Dose: 40 mg Tamsulosin HCl (Flomax) 0.4 mg PO BID [facility] Last Admin: 04/30/18 17:14 Dose: 0.4 mg Zinc Sulfate (Zinc Sulfate 220 Mg Cap) 220 mg PO DAILY [facility] Last Admin: 04/30/18 09:15 Dose: 220 mg Zolpidem Tartrate (Ambien) 5 mg PO HS PRN PRN Reason: Insomnia Last Admin: 04/28/18 00:53 Dose: 5 mg - Labs Labs: 04/29/18 08:58 04/29/18 08:58 PT 10.7 SECONDS (9.7-12.2) 04/18/18 05:36 INR 1.0 04/18/18 05:36 APTT 32 SECONDS (21-34) 04/18/18 05:36 Assessment and Plan (1) Cachectic Status: Acute (2) Abdominal pain Status: Acute (3) CAD (coronary artery disease) Status: Acute (4) Dehydration Status: Acute (5) Diabetes mellitus Status: Acute (6) Hematuria Status: Acute
[2018-05-01] MEDS: Vancomycin 1 gm/NS 200 ml 1 GM/200 ML BAG IVPB SCH ×3 (00:12→14:29)
[2018-05-01] MEDS: Aztreonam 1 GM in Sodium Chloride 0.9% 100 ML IVPB SCH ×3 (01:59→17:28)
[2018-05-01] MEDS: (Novolin R) Insulin Human Regular 100 units/ml vial SC SCH ×5 (08:33→21:20)
[2018-05-01] MEDS: Pantoprazole 40 mg EC Tab PO SCH (09:31)
[2018-05-01] MEDS: Collagenase 250 Units/gm Ointment(30 gm) TOP SCH ×2 (09:32→09:33)
--- NOTE | 2018-05-01 09:50 | CP.PCM.CON ---
History of Present Illness - History of Present Illness History of Present Illness: 77yo M presents to [facility] from [facility] with chronic generalized pain with abdominal pain. The pain has been intermittent over the past 4 months since the surgery. Has hx of bilat heel deep tissue injury. Patient is a poor historian. Patient states he has been diabetic for a very long time and cannot recall how long the heel wounds have been present referred for ID eval of OM + PCN allergy PMH: CAD w/ tripple vessel disease, HTN, HLD, DM, GERD, perforated duodenal ulcer, PE , perforated duodenal ulcer 12/2017 s/p exlap and rachelle patch repair , CAD s/p cardiac cath, chronic constipation PSH: perforated duodenal ulcer s/p ex lap & rachelle patch on 12/22/17, CABG ALL: PCN SocialHx: Denies tobacco, etoh, recreational drug use Review of Systems - Review of Systems All systems: reviewed and no additional remarkable complaints except - Constitutional Constitutional: As Per HPI - EENT Eyes: absent: As Per HPI, Blind Spots, Blurred Vision, Change in Vision, Decreased Night Vision, Diplopia, Discharge, Dry Eye, Exophthalmos, Floaters, Irritation, Itchy Eyes, Loss of Peripheral Vision, Pain, Photophobia, Requires Corrective Lenses, Sees Flashes, Spots in Vision, Tunnel Vision, Other Visual Disturbances, Loss of Vision, Other Ears: absent: As Per HPI, Decreased Hearing, Ear Discharge, Ear Pain, Tinnitus, Abnormal Hearing, Disequilibrium, Dizziness, Other Nose/Mouth/Throat: absent: As Per HPI, Epistaxis, Nasal Congestion, Nasal Discharge, Nasal Obstruction, Nasal Trauma, Nose Pain, Post Nasal Drip, Sinus Pain, Sinus Pressure, Bleeding Gums, Change in Voice, Dental Pain, Dry Mouth, Dysphagia, Halitosis, Hoarsness, Lip Swelling, Mouth Lesions, Mouth Pain, Odynophagia, Sore Throat, Throat Swelling, Tongue Swelling, Facial Pain, Neck Pain, Neck Mass, Other - Cardiovascular Cardiovascular: As Per HPI - Respiratory Respiratory: absent: As Per HPI, Cough, Dyspnea, Hemoptysis, Dyspnea on Exertion , Wheezing, Snoring, Stridor, Pain on Inspiration, Chest Congestion, Excessive Mucous Production, Change in Mucous Color, Pain with Coughing, Other - Gastrointestinal Gastrointestinal: As Per HPI - Genitourinary Genitourinary: absent: As Per HPI, Change in Urinary Stream, Difficulty Urinating, Dysuria, Flank Pain, Hematuria, Pyuria, Nocturia, Urinary Incontinence, Urinary Frequency, Urinary Hesitance, Urinary Urgency, Voiding Freq/Small Amts, Freq UTI, Hx Renal/Bladder Calculi, Hx /Renal Surgery, Bladder Distension, Other - Musculoskeletal Musculoskeletal: As Per HPI - Integumentary Integumentary: As Per HPI, Skin Pain, Wounds - Neurological Neurological: As Per HPI - Psychiatric Psychiatric: absent: As Per HPI, Abnormal Sleep Pattern, Anhedonia, Anxiety, Auditory Hallucinations, Behavioral Changes, Change in Appetite, Change in Libido, Confusion, Depression, Difficulty Concentrating, Hallucinations, Homicidal Ideation, Hopelessness, Irritability, Memory Loss, Mood Swings, Panic Attacks, Paranoia, Suicidal Ideation, Visual Hallucinations, Tactile Hallucinations, Other - Endocrine Endocrine: As Per HPI - Hematologic/Lymphatic Hematologic: absent: As Per HPI, Easy Bleeding, Easy Bruising, Lymphadenopathy, Other Past Patient History - Infectious Disease Hx of Infectious Diseases: None - Past Medical History & Family History Past Medical History?: Yes - Past Social History Smoking Status: Former Smoker - CARDIAC Hx Cardiac Disorders: Yes Hx Hypercholesterolemia: Yes Hx Hypertension: Yes - PULMONARY Hx Respiratory Disorders: Yes Hx Pulmonary Embolism: Yes - NEUROLOGICAL Hx Neurological Disorder: Yes Hx Syncope: Yes - HEENT Hx HEENT Problems: No - RENAL Hx Chronic Kidney Disease: No - ENDOCRINE/METABOLIC Hx Diabetes Mellitus Type 2: Yes - HEMATOLOGICAL/ONCOLOGICAL Hx Blood Disorders: No - INTEGUMENTARY Hx Dermatological Problems: No - MUSCULOSKELETAL/RHEUMATOLOGICAL Hx Arthritis: Yes Hx Falls: Yes - GASTROINTESTINAL Hx Gastrointestinal Disorders: Yes Hx Gastroesophageal Reflux: Yes - GENITOURINARY/GYNECOLOGICAL Hx Genitourinary Disorders: No - PSYCHIATRIC Hx Substance Use: No - SURGICAL HISTORY Hx Surgeries: Yes Other/Comment: left knee replacement, and left nerve repair, left and right hand nerve repair, Exp.Lap 12/22/17, - ANESTHESIA Hx Anesthesia: Yes Hx Anesthesia Reactions: No Hx Malignant Hyperthermia: No Has any member of the family had a problem w/ anesthesia?: No Meds Allergies/Adverse Reactions: Allergies Allergy/AdvReac Type Severity Reaction Status Date / Time Penicillins Allergy Mild Verified 04/18/18 04:45 - Medications Medications: Current Medications Acetaminophen (Tylenol 650mg/20.3ml Solution Ud) 650 mg PO Q4H PRN PRN Reason: Pain, Mild (1-3) Ascorbic Acid (Vitamin C 500 Mg Tab) 500 mg PO DAILY [facility] Last Admin: 05/01/18 09:38 Dose: 500 mg Collagenase (Santyl) 0 gm TOP DAILY [facility] Last Admin: 05/01/18 09:33 Dose: Not Given Docusate Sodium (Colace) 100 mg PO BID [facility] Last Admin: 05/01/18 09:31 Dose: 100 mg Escitalopram Oxalate (Lexapro) 10 mg PO DAILY [facility] Last Admin: 05/01/18 09:31 Dose: 10 mg Gabapentin (Neurontin) 300 mg PO TID [facility] Last Admin: 05/01/18 09:31 Dose: 300 mg Vancomycin/Sodium Chloride (Vancomycin 1 Gm/Ns 200 Ml) 1 gm in 200 mls @ 133 mls/hr IVPB Q12H [facility] PRN Reason: Protocol Stop: 05/06/18 00:01 Last Admin: 05/01/18 00:12 Dose: 133 mls/hr Aztreonam 1 gm/ Sodium (Chloride) 100 mls @ 200 mls/hr IVPB Q8H [facility] PRN Reason: Protocol Last Admin: 05/01/18 09:47 Dose: 200 mls/hr Insulin Glargine (Lantus) 8 unit SC HS [facility] Insulin Human Regular (Novolin R) 0 unit SC ACHS [facility] PRN Reason: Protocol Last Admin: 05/01/18 08:44 Dose: Not Given Metronidazole (Flagyl) 500 mg PO Q8H [facility] Last Admin: 05/01/18 05:23 Dose: 500 mg Midodrine (Proamatine) 2.5 mg PO TID [facility] Last Admin: 05/01/18 09:31 Dose: 2.5 mg Oxycodone/Acetaminophen (Percocet 5/325 Mg Tab) 2 tab PO Q4H PRN PRN Reason: Pain, moderate (4-7) Stop: 05/03/18 19:35 Last Admin: 05/01/18 06:01 Dose: 2 tab Pantoprazole Sodium (Protonix Ec Tab) 40 mg PO DAILY [facility] Last Admin: 05/01/18 09:31 Dose: 40 mg Tamsulosin HCl (Flomax) 0.4 mg PO BID [facility] Last Admin: 05/01/18 09:31 Dose: 0.4 mg Zinc Sulfate (Zinc Sulfate 220 Mg Cap) 220 mg PO DAILY [facility] Last Admin: 05/01/18 09:31 Dose: 220 mg Zolpidem Tartrate (Ambien) 5 mg PO HS PRN PRN Reason: Insomnia Last Admin: 05/01/18 00:24 Dose: 5 mg Physical Exam - Constitutional Appears: Non-toxic, Cachectic, Chronically Ill - Head Exam Head Exam: NORMOCEPHALIC - Eye Exam Eye Exam: PERRL. absent: Scleral icterus - ENT Exam ENT Exam: Mucous Membranes Dry - Neck Exam Neck exam: Negative for: Lymphadenopathy - Respiratory Exam Respiratory Exam: Decreased Breath Sounds - Cardiovascular Exam Cardiovascular Exam: REGULAR RHYTHM - GI/Abdominal Exam GI & Abdominal Exam: Diminished Bowel Sounds, Soft. absent: Tenderness - Rectal Exam Rectal Exam: Deferred - Exam Exam: NORMAL INSPECTION - Extremities Exam Extremities exam: Positive for: pedal edema, tenderness, pedal pulses present. Negative for: calf tenderness - Back Exam Back exam: absent: CVA tenderness (L), CVA tenderness (R) - Neurological Exam Neurological exam: Alert, CN II-XII Intact, Oriented x3, Reflexes Normal - Psychiatric Exam Psychiatric exam: Normal Mood - Skin Skin Exam: Dry, Intact Results - Vital Signs Recent Vital Signs: Last Vital Signs Temp 98.0 F 05/01/18 08:03 Pulse 98 H 05/01/18 08:03 Resp 20 05/01/18 08:03 BP 99/64 L 05/01/18 08:03 Pulse Ox 94 L 05/01/18 08:03 - Labs Result Diagrams: 04/29/18 08:58 04/29/18 08:58 Labs: Laboratory Results - last 24 hr 04/27/18 04/28/18 04/28/18 21:11 07:30 11:02 POC Glucose (mg/dL) 281 H 227 H 295 H 04/28/18 04/28/18 04/29/18 16:42 21:19 07:11 POC Glucose (mg/dL) 190 H 254 H 252 H 04/29/18 04/29/18 04/29/18 11:01 16:10 20:57 POC Glucose (mg/dL) 200 H 121 H 160 H 04/30/18 04/30/18 04/30/18 07:07 11:58 16:05 POC Glucose (mg/dL) 182 H 249 H 245 H 04/30/18 05/01/18 05/01/18 21:03 02:31 07:10 POC Glucose (mg/dL) 313 H 202 H 226 H Assessment & Plan (1) Osteomyelitis of ankle and foot Status: Acute - Assessment and Plan (Free Text) Assessment: OM of foot / heel podiatry following iv rx for 6-8 weeks
--- NOTE | 2018-05-01 13:31 | PN ---
Copied To: Alex Siddiqui MD Attending MD: Alex Siddiqui MD DATE: 05/01/2018 SUBJECTIVE: The patient feels weak. He has a lot of pain in the feet. The patient's right foot MRI is positive for osteomyelitis. He is for ID eval. Blood sugars are . PHYSICAL EXAMINATION: VITAL SIGNS: BP 103/67, pulse 97, respiratory rate 20, temperature 98.9. SKIN: Pale. LUNGS: Clear. CVS: S1, S2 regular. ABDOMEN: Soft, nontender. ASSESSMENT: 1. Osteomyelitis of right foot. 2. Type 2 diabetes. 3. Coronary artery disease. 4. Hypertension. PLAN: Admit. Detailed orders written. Seen and examined. Alex Siddiqui MD
--- NOTE | 2018-05-01 14:14 | CP.PCM.PN ---
Subjective - Date & Time of Evaluation Date of Evaluation: 05/01/18 Time of Evaluation: 10:00 - Subjective Subjective: Podiatry Progress Note for Dr. Reyes 77 yo male seen and evaluated at bedside for b/l heel DTI, R>L with underlying OM to bilaterall heels. Patient is resting in bed, in NAD. Patient reports that he is doing okay. Reports same pain to the entire body and bilateral heels. Patient denies nausea, fever, shortness of breath, chest pains or chills. Patient continues to wear multipodus boots in bed. Dressing clean, dry , and intact Objective - Vital Signs/Intake and Output Vital Signs (last 24 hours): Temp Pulse Resp BP Pulse Ox 98.0 F 98 H 20 99/64 L 94 L 05/01/18 08:03 05/01/18 08:03 05/01/18 08:03 05/01/18 08:03 05/01/18 08:03 Intake and Output: 05/01/18 05/01/18 06:59 18:59 Intake Total 250 540 Output Total 300 Balance 250 240 - Medications Medications: Current Medications Acetaminophen (Tylenol 650mg/20.3ml Solution Ud) 650 mg PO Q4H PRN PRN Reason: Pain, Mild (1-3) Ascorbic Acid (Vitamin C 500 Mg Tab) 500 mg PO DAILY [facility] Last Admin: 05/01/18 09:38 Dose: 500 mg Collagenase (Santyl) 0 gm TOP DAILY [facility] Last Admin: 05/01/18 09:33 Dose: Not Given Docusate Sodium (Colace) 100 mg PO BID [facility] Last Admin: 05/01/18 09:31 Dose: 100 mg Escitalopram Oxalate (Lexapro) 10 mg PO DAILY [facility] Last Admin: 05/01/18 09:31 Dose: 10 mg Gabapentin (Neurontin) 300 mg PO TID [facility] Last Admin: 05/01/18 09:31 Dose: 300 mg Vancomycin/Sodium Chloride (Vancomycin 1 Gm/Ns 200 Ml) 1 gm in 200 mls @ 133 mls/hr IVPB Q12H [facility] PRN Reason: Protocol Stop: 05/06/18 00:01 Last Admin: 05/01/18 12:40 Dose: Not Given Aztreonam 1 gm/ Sodium (Chloride) 100 mls @ 200 mls/hr IVPB Q8H [facility] PRN Reason: Protocol Last Admin: 05/01/18 09:47 Dose: 200 mls/hr Insulin Glargine (Lantus) 8 unit SC HS [facility] Insulin Human Regular (Novolin R) 0 unit SC ACHS [facility] PRN Reason: Protocol Last Admin: 05/01/18 12:29 Dose: 4 units Metronidazole (Flagyl) 500 mg PO Q8H [facility] Last Admin: 05/01/18 12:32 Dose: 500 mg Midodrine (Proamatine) 2.5 mg PO TID [facility] Last Admin: 05/01/18 09:31 Dose: 2.5 mg Oxycodone/Acetaminophen (Percocet 5/325 Mg Tab) 1 tab PO Q4H PRN PRN Reason: Pain, moderate (4-7) Stop: 05/03/18 19:35 Pantoprazole Sodium (Protonix Ec Tab) 40 mg PO DAILY [facility] Last Admin: 05/01/18 09:31 Dose: 40 mg Tamsulosin HCl (Flomax) 0.4 mg PO BID [facility] Last Admin: 05/01/18 09:31 Dose: 0.4 mg Zinc Sulfate (Zinc Sulfate 220 Mg Cap) 220 mg PO DAILY [facility] Last Admin: 05/01/18 09:31 Dose: 220 mg Zolpidem Tartrate (Ambien) 5 mg PO HS PRN PRN Reason: Insomnia Last Admin: 05/01/18 00:24 Dose: 5 mg - Labs Labs: 04/29/18 08:58 04/29/18 08:58 PT 10.7 SECONDS (9.7-12.2) 04/18/18 05:36 INR 1.0 04/18/18 05:36 APTT 32 SECONDS (21-34) 04/18/18 05:36 - Constitutional Appears: Well, Non-toxic, No Acute Distress - Extremities Exam Extremities Exam: absent: Calf Tenderness Additional comments: Bilateral LE focused exam: Vascular: DP/PT 1/4 bilaterally, TG warm to cool from proximal knees to distal toes, CFT >3 secs x10 digit, no edema noted bilaterally Ortho: pain upon palpation to bilateral heels, no pain elicited with calf compression bilaterally Neuro: Gross sensation intact, protective sensation diminished b/l Derm: Right heel: hyperkeratotic border with necrotic wound base at the plantar posterior aspect of the heel measuring approximately 8 cm x8 cm, decreased malodor, superficial opening to the eschar noted at distal lateral aspect of the heel. There was .3 cc of purulence from the eschar opening. No erythema, no probe to bone, no undermining, no tunneling, no tracking, no streaking, no abscess or fluctance Left heel: deep tissue injury noted to the posterior plantar heel with deep tissue bruising at the plantar posterior aspect of the heel measuring approximately 6 cm x 7 cm , no opening, no malodor, no drainage, no probe to bone, no undermining, no tracking, no tunneling, no erythema, no purulence, no clinical signs of infection to left, left heel is soft, unable to appreciate fluctanance or abscess - Neurological Exam Neurological Exam: Alert, Awake - Psychiatric Exam Psychiatric exam: Normal Affect, Normal Mood Assessment and Plan - Assessment and Plan (Free Text) Assessment: 77 yo male seen and evaluated for bilateral DTI to heels secondary to pressure and DM and underlying OM to heels Plan: Patient seen and evaluated Plan discussed in detail with Dr. Reyes Chart, labs and vitals reviewed; afebrile and absent leukocytosis (04/29) MRI of left hindfoot- IMpression Study was limited secondary to prominent patient motion. Suggestion of 1.4 cm focal area of enhanced signal which may represent developing abscess collection. Findings likely do not represent a gross acute OM however some mild early acute infectious changes cannot be excluded given associated reactive edema. MRI of right hindfoot- Impression: 1. Soft tissue ulceration/defect seen within the posterior soft tissues at the level of the heel. At the level of the posterior calcaneus, there is mild patchy decreased T1 signal, mild patchy increased STIR signal, and mild patchy post-contrast enhancement concerning for early acute and or developing acute osteomyelitis. Clinical correlation. Santyl ordered Wounds dressed with santyl, dsd, abd and kerlix WC R heel: staph aureus (04/27) Podiatry with treat conservatively. No surgical intervention at this time IV abx per ID for treatment of OM Continue to wear multipodus boots at all times while in bed Podiatry will follow patient while in house
[2018-05-01] MEDS: Oxycodone/Acetaminophen 5/325 mg Tab PO PRN (19:24)
[2018-05-01] MEDS: (Lantus) Insulin Glargine, Recombinant SC SCH (21:15)
--- NOTE | 2018-05-01 22:14 | CP.PCM.PN ---
Objective - Vital Signs/Intake and Output Vital Signs (last 24 hours): Temp Pulse Resp BP Pulse Ox 98.0 F 95 H 20 110/72 95 05/01/18 16:32 05/01/18 16:32 05/01/18 16:32 05/01/18 16:32 05/01/18 16:32 Intake and Output: 05/01/18 05/02/18 18:59 06:59 Intake Total 1090 Output Total 600 Balance 490 - Medications Medications: Current Medications Acetaminophen (Tylenol 650mg/20.3ml Solution Ud) 650 mg PO Q4H PRN PRN Reason: Pain, Mild (1-3) Ascorbic Acid (Vitamin C 500 Mg Tab) 500 mg PO DAILY [facility] Last Admin: 05/01/18 09:38 Dose: 500 mg Collagenase (Santyl) 0 gm TOP DAILY [facility] Last Admin: 05/01/18 09:33 Dose: Not Given Docusate Sodium (Colace) 100 mg PO BID [facility] Last Admin: 05/01/18 17:27 Dose: 100 mg Escitalopram Oxalate (Lexapro) 10 mg PO DAILY [facility] Last Admin: 05/01/18 09:31 Dose: 10 mg Gabapentin (Neurontin) 300 mg PO TID [facility] Last Admin: 05/01/18 17:27 Dose: 300 mg Vancomycin/Sodium Chloride (Vancomycin 1 Gm/Ns 200 Ml) 1 gm in 200 mls @ 133 mls/hr IVPB Q12H [facility] PRN Reason: Protocol Stop: 05/06/18 00:01 Last Admin: 05/01/18 14:29 Dose: 133 mls/hr Aztreonam 1 gm/ Sodium (Chloride) 100 mls @ 200 mls/hr IVPB Q8H [facility] PRN Reason: Protocol Last Admin: 05/01/18 17:28 Dose: 200 mls/hr Insulin Glargine (Lantus) 8 unit SC HS [facility] Last Admin: 05/01/18 21:15 Dose: 8 u Insulin Human Regular (Novolin R) 0 unit SC ACHS [facility] PRN Reason: Protocol Last Admin: 05/01/18 21:20 Dose: Not Given Metronidazole (Flagyl) 500 mg PO Q8H [facility] Last Admin: 05/01/18 21:14 Dose: 500 mg Midodrine (Proamatine) 2.5 mg PO TID [facility] Last Admin: 05/01/18 17:27 Dose: 2.5 mg Oxycodone/Acetaminophen (Percocet 5/325 Mg Tab) 1 tab PO Q4H PRN PRN Reason: Pain, moderate (4-7) Stop: 05/03/18 19:35 Last Admin: 05/01/18 19:24 Dose: 1 tab Pantoprazole Sodium (Protonix Ec Tab) 40 mg PO DAILY [facility] Last Admin: 05/01/18 09:31 Dose: 40 mg Tamsulosin HCl (Flomax) 0.4 mg PO BID [facility] Last Admin: 05/01/18 17:27 Dose: 0.4 mg Zinc Sulfate (Zinc Sulfate 220 Mg Cap) 220 mg PO DAILY [facility] Last Admin: 05/01/18 09:31 Dose: 220 mg Zolpidem Tartrate (Ambien) 5 mg PO HS PRN PRN Reason: Insomnia Last Admin: 05/01/18 00:24 Dose: 5 mg - Labs Labs: 04/29/18 08:58 04/29/18 08:58 PT 10.7 SECONDS (9.7-12.2) 04/18/18 05:36 INR 1.0 04/18/18 05:36 APTT 32 SECONDS (21-34) 04/18/18 05:36 Assessment and Plan (1) Cachectic Status: Acute (2) Abdominal pain Status: Acute (3) CAD (coronary artery disease) Status: Acute (4) Dehydration Status: Acute (5) Diabetes mellitus Status: Acute (6) Hematuria Status: Acute
[2018-05-02] MEDS: Vancomycin 1 gm/NS 200 ml 1 GM/200 ML BAG IVPB SCH ×2 (00:42→13:29)
[2018-05-02] MEDS: Aztreonam 1 GM in Sodium Chloride 0.9% 100 ML IVPB SCH ×3 (02:22→17:24)
--- NOTE | 2018-05-02 03:34 | PN ---
Copied To: Alex Siddiqui MD Attending MD: Alex Siddiqui MD DATE: 05/01/2018 SUBJECTIVE: The patient is complaining of foot pain. His blood sugars are also high. He is afebrile. His wound culture is growing staph which is pansensitive except penicillin. He is on antibiotics per ID. He is for PICC line and possible long-term antibiotics. Yesterday, he was started on Lantus. We will adjust his doses of Lantus according to his sugar response. In the meantime, he is afebrile. He is on antibiotics. He is seen by Dr. Fuentes. PHYSICAL EXAMINATION: VITAL SIGNS: BP 110/72, pulse 95, respiratory rate 20, temperature 98. LUNGS: Clear. CARDIOVASCULAR SYSTEM: S1 and S2 are regular. ABDOMEN: Soft. ASSESSMENT: 1. Right foot osteomyelitis, on antibiotics. 2. Diabetes with peripheral neuropathy. 3. Hypertension. 4. Coronary artery disease. PLAN: Medical management. Monitor the patient. Alex Siddiqui MD
[2018-05-02 08:01] LABS: BASO % 0.8 % (0.0-2.0); EOS # 0.4 K/uL (0.0-0.7); EOS % 6.6 % (0.0-4.0); HEMOGLOBIN 9.4 g/dL (12.0-18.0); LYMPH # 1.2 K/uL (1.0-4.3); LYMPH % 21.8 % (20.0-40.0); MEAN CELL VOLUME 84.6 fL (80.0-94.0); MEAN CORPUSCULAR HEMOGLOBIN 27.6 pg (27.0-31.0); MEAN CORPUSCULAR HGB CONC 32.6 g/dL (33.0-37.0); MEAN PLATELET VOLUME 8.1 fL (7.2-11.7); MONO # 0.6 K/uL (0.0-0.8); MONO % 10.3 % (0.0-10.0); NEUT # 3.2 K/uL (1.8-7.0); NEUT % 60.5 % (50.0-75.0); NRBC % 0.1 % (0.0-2.0); RBC 3.4 Mil/uL (4.40-5.90); RED CELL DISTRIBUTION WIDTH 18.1 % (11.5-14.5); WHITE BLOOD COUNT 5.4 K/uL (4.8-10.8)
[2018-05-02] MEDS: (Novolin R) Insulin Human Regular 100 units/ml vial SC SCH ×4 (08:24→21:24)
[2018-05-02 08:31] LABS: BLOOD UREA NITROGEN 10 mg/dL (9-20); CALCIUM 10.2 mg/dl (8.6-10.4); GFR NON-AFRICAN AMERICAN > 60
[2018-05-02] MEDS: Collagenase 250 Units/gm Ointment(30 gm) TOP SCH (10:15)
[2018-05-02] MEDS: Pantoprazole 40 mg EC Tab PO SCH (11:11)
--- NOTE | 2018-05-02 11:26 | CP.PCM.PN ---
Subjective - Date & Time of Evaluation Date of Evaluation: 05/02/18 Time of Evaluation: 11:24 - Subjective Subjective: Podiatry Progress Note for Dr. Reyes 77 yo male seen and evaluated at bedside for b/l heel DTI, R>L with underlying OM to bilateral heels. Patient is resting in bed, in NAD. Patient expresses pain to the feet. Right heel pain is worse than left. Patient also reports pain everywhere. Patient denies nausea, fever, shortness of breath, chest pains or chills. Patient continues to wear multipodus boots in bed. Dressing clean, dry , and intact Objective - Vital Signs/Intake and Output Vital Signs (last 24 hours): Temp Pulse Resp BP Pulse Ox 98.0 F 88 20 94/64 L 97 05/02/18 08:00 05/02/18 08:00 05/02/18 08:00 05/02/18 08:00 05/02/18 08:00 Intake and Output: 05/02/18 05/02/18 06:59 18:59 Intake Total 350 450 Output Total 500 200 Balance -150 250 - Medications Medications: Current Medications Acetaminophen (Tylenol 650mg/20.3ml Solution Ud) 650 mg PO Q4H PRN PRN Reason: Pain, Mild (1-3) Ascorbic Acid (Vitamin C 500 Mg Tab) 500 mg PO DAILY [facility] Last Admin: 05/02/18 11:11 Dose: Not Given Collagenase (Santyl) 0 gm TOP DAILY [facility] Last Admin: 05/01/18 09:33 Dose: Not Given Docusate Sodium (Colace) 100 mg PO BID [facility] Last Admin: 05/02/18 11:11 Dose: Not Given Escitalopram Oxalate (Lexapro) 10 mg PO DAILY [facility] Last Admin: 05/02/18 11:11 Dose: Not Given Gabapentin (Neurontin) 300 mg PO TID [facility] Last Admin: 05/02/18 11:11 Dose: Not Given Vancomycin/Sodium Chloride (Vancomycin 1 Gm/Ns 200 Ml) 1 gm in 200 mls @ 133 mls/hr IVPB Q12H [facility] PRN Reason: Protocol Stop: 05/06/18 00:01 Last Admin: 05/02/18 00:42 Dose: 133 mls/hr Aztreonam 1 gm/ Sodium (Chloride) 100 mls @ 200 mls/hr IVPB Q8H [facility] PRN Reason: Protocol Last Admin: 05/02/18 02:22 Dose: 200 mls/hr Insulin Glargine (Lantus) 8 unit SC HS [facility] Last Admin: 05/01/18 21:15 Dose: 8 u Insulin Human Regular (Novolin R) 0 unit SC ACHS [facility] PRN Reason: Protocol Last Admin: 05/02/18 08:24 Dose: 4 units Metronidazole (Flagyl) 500 mg PO Q8H [facility] Last Admin: 05/02/18 04:54 Dose: 500 mg Midodrine (Proamatine) 2.5 mg PO TID [facility] Last Admin: 05/02/18 11:11 Dose: Not Given Oxycodone/Acetaminophen (Percocet 5/325 Mg Tab) 1 tab PO Q4H PRN PRN Reason: Pain, moderate (4-7) Stop: 05/03/18 19:35 Last Admin: 05/01/18 19:24 Dose: 1 tab Pantoprazole Sodium (Protonix Ec Tab) 40 mg PO DAILY [facility] Last Admin: 05/02/18 11:11 Dose: Not Given Tamsulosin HCl (Flomax) 0.4 mg PO BID [facility] Last Admin: 05/02/18 11:11 Dose: Not Given Zinc Sulfate (Zinc Sulfate 220 Mg Cap) 220 mg PO DAILY [facility] Last Admin: 05/02/18 11:12 Dose: Not Given Zolpidem Tartrate (Ambien) 5 mg PO HS PRN PRN Reason: Insomnia Last Admin: 05/01/18 00:24 Dose: 5 mg - Labs Labs: 05/02/18 07:38 05/02/18 07:38 PT 10.7 SECONDS (9.7-12.2) 04/18/18 05:36 INR 1.0 04/18/18 05:36 APTT 32 SECONDS (21-34) 04/18/18 05:36 - Constitutional Appears: Well, Non-toxic, No Acute Distress - Extremities Exam Extremities Exam: absent: Calf Tenderness Additional comments: Bilateral LE focused exam: Vascular: DP/PT 1/4 bilaterally, TG warm to cool from proximal knees to distal toes, CFT >3 secs x10 digit, no edema noted bilaterally Ortho: pain upon palpation to bilateral heels, no pain elicited with calf compression bilaterally Neuro: Gross sensation intact, protective sensation diminished b/l Derm: Right heel: hyperkeratotic border with necrotic wound base at the plantar posterior aspect of the heel measuring approximately 8 cm x8 cm, decreased malodor, superficial opening to the eschar noted at distal lateral aspect of the heel. There was .3 cc of purulence from the eschar opening. No erythema, no probe to bone, no undermining, no tunneling, no tracking, no streaking, no abscess or fluctance Left heel: deep tissue injury noted to the posterior plantar heel with deep tissue bruising at the plantar posterior aspect of the heel measuring approximately 6 cm x 7 cm , no opening, no malodor, no drainage, no probe to bone, no undermining, no tracking, no tunneling, no erythema, no purulence, no clinical signs of infection to left, left heel is soft, unable to appreciate fluctanance or abscess - Neurological Exam Neurological Exam: Alert, Awake - Psychiatric Exam Psychiatric exam: Normal Affect, Normal Mood Assessment and Plan - Assessment and Plan (Free Text) Assessment: 77 yo male seen and evaluated for bilateral DTI to heels secondary to pressure and DM and underlying OM to heels Plan: Patient seen and evaluated Plan discussed in detail with Dr. Reyes Chart, labs and vitals reviewed; afebrile and absent leukocytosis WBC 5.4 MRI of left hindfoot- IMpression Study was limited secondary to prominent patient motion. Suggestion of 1.4 cm focal area of enhanced signal which may represent developing abscess collection. Findings likely do not represent a gross acute OM however some mild early acute infectious changes cannot be excluded given associated reactive edema. MRI of right hindfoot- Impression: 1. Soft tissue ulceration/defect seen within the posterior soft tissues at the level of the heel. At the level of the posterior calcaneus, there is mild patchy decreased T1 signal, mild patchy increased STIR signal, and mild patchy post-contrast enhancement concerning for early acute and or developing acute osteomyelitis. Clinical correlation. Wounds dressed with santyl, dsd, abd and kerlix WC R heel: staph aureus (04/27) WC L heel: no growth Podiatry with treat conservatively. No surgical intervention at this time IV abx per ID for treatment of OM Continue to wear multipodus boots at all times while in bed Podiatry will follow patient while in house
--- NOTE | 2018-05-02 11:31 | PCM.SURG1 ---
Surgeon's Initial Post Op Note - Surgeon's Notes Surgeon: Dom Pablo MD Pulley Worker: NONE Type of Anesthesia: Local Pre-Operative Diagnosis: Poor venous access, Operative Findings: Subclavian vein stenosis Post-Operative Diagnosis: Poor venous access, central venous stenosis Operation Performed: Single lumen midline picc placement, 20 cm. Tip is in axillary vein. Specimen/Specimens Removed: NONE Estimated Blood Loss: EBL {In ML}: 5 Blood Products Given: N/A Drains Used: No Drains Post-Op Condition: Fair Date of Surgery/Procedure: 05/02/18 Time of Surgery/Procedure: 11:30
[2018-05-02] MEDS: Enoxaparin 40 mg Syringe SC SCH (14:15)
--- NOTE | 2018-05-02 14:20 | RAD ---
PROCEDURE: Date of procedure: 05/02/2018 Procedure: 1. Placement of a right arm PICC with ultrasound and fluoroscopic guidance, CPT 92612 2. PICC tip confirmation with spot radiograph and is in the superior vena cava Medications: 1 percent lidocaine Total Fluoro time: 23.7seconds Radiation: 10 mGy EBL: 2 cc HISTORY: Infection requiring long-term IV antibiotics TECHNIQUE: Following informed consent and procedure time-out, the patient was placed supine on the interventional table and the right arm prepped and draped in the usual sterile fashion. Ultrasound showed a patent and compressible right brachial vein. After the skin was anesthetized with lidocaine, the right kidney vein was accessed with micro micropuncture technique using ultrasound guidance. A guidewire was then advanced under fluoroscopic guidance into the vein. An image documenting ultrasound guidance for vascular access was permanently saved. There was difficulty advancing guidewire centrally secondary subclavian vein stenosis. The length of the single-lumen 4 [place] PICC was trimmed to 20 centimeters and advanced through a peel-away sheath. The PICC was position with tip of PICC confirm a spot radiograph the axillary. The PICC was secured to the patient's skin. The PICC was flushed. A biopatch and sterile dressing was applied. IMPRESSION: Placement of a single-lumen 4 [place] PICC trimmed to 20 centimeters via right brachial vein. There is stenosis of the subclavian vein. The tip of the PICC is confirmed with spot radiograph and is in the superior vena cava.
--- NOTE | 2018-05-02 14:34 | US ---
Date of procedure: 05/02/2018 Procedure: Ultrasound guidance for vascular access HISTORY: Infection requiring long-term IV antibiotics TECHNIQUE: Following informed consent and procedure time-out, the patient placed supine on the interventional table and the right arm prepped and draped in the usual sterile fashion. Ultrasound showed a patent and compressible brachial vein. After the skin was anesthetized with lidocaine, the brachial vein was accessed with micro micropuncture technique using ultrasound guidance. An image documenting ultrasound guidance for vascular access was permanently saved. IMPRESSION: Ultrasound guidance for vascular access for placement of PICC.
[2018-05-02 16:05] VITALS: O2SAT 95
--- NOTE | 2018-05-02 19:24 | CP.PCM.PN ---
Subjective - Date & Time of Evaluation Date of Evaluation: 05/02/18 Time of Evaluation: 08:00 - Subjective Subjective: events noted IV rx in progress Objective - Vital Signs/Intake and Output Vital Signs (last 24 hours): Temp Pulse Resp BP Pulse Ox 98.6 F 118 H 18 104/55 L 95 05/02/18 16:04 05/02/18 16:04 05/02/18 16:04 05/02/18 16:04 05/02/18 16:04 Intake and Output: 05/02/18 05/03/18 18:59 06:59 Intake Total 1100 Output Total 500 Balance 600 - Medications Medications: Current Medications Acetaminophen (Tylenol 650mg/20.3ml Solution Ud) 650 mg PO Q4H PRN PRN Reason: Pain, Mild (1-3) Ascorbic Acid (Vitamin C 500 Mg Tab) 500 mg PO DAILY [facility] Last Admin: 05/02/18 11:11 Dose: Not Given Collagenase (Santyl) 0 gm TOP DAILY [facility] Last Admin: 05/01/18 09:33 Dose: Not Given Docusate Sodium (Colace) 100 mg PO BID [facility] Last Admin: 05/02/18 17:23 Dose: 100 mg Enoxaparin Sodium (Lovenox) 40 mg SC DAILY [facility] Last Admin: 05/02/18 14:15 Dose: 40 mg Escitalopram Oxalate (Lexapro) 10 mg PO DAILY [facility] Last Admin: 05/02/18 11:11 Dose: Not Given Gabapentin (Neurontin) 300 mg PO TID [facility] Last Admin: 05/02/18 17:23 Dose: 300 mg Vancomycin/Sodium Chloride (Vancomycin 1 Gm/Ns 200 Ml) 1 gm in 200 mls @ 133 mls/hr IVPB Q12H [facility] PRN Reason: Protocol Stop: 05/06/18 00:01 Last Admin: 05/02/18 13:29 Dose: 133 mls/hr Aztreonam 1 gm/ Sodium (Chloride) 100 mls @ 200 mls/hr IVPB Q8H [facility] PRN Reason: Protocol Last Admin: 05/02/18 17:24 Dose: 200 mls/hr Insulin Glargine (Lantus) 8 unit SC HS [facility] Last Admin: 05/01/18 21:15 Dose: 8 u Insulin Human Regular (Novolin R) 0 unit SC ACHS [facility] PRN Reason: Protocol Last Admin: 05/02/18 17:25 Dose: 3 units Metronidazole (Flagyl) 500 mg PO Q8H [facility] Last Admin: 05/02/18 13:40 Dose: 500 mg Midodrine (Proamatine) 2.5 mg PO TID [facility] Last Admin: 05/02/18 17:23 Dose: 2.5 mg Oxycodone/Acetaminophen (Percocet 5/325 Mg Tab) 1 tab PO Q4H PRN PRN Reason: Pain, moderate (4-7) Stop: 05/03/18 19:35 Last Admin: 05/01/18 19:24 Dose: 1 tab Pantoprazole Sodium (Protonix Ec Tab) 40 mg PO DAILY [facility] Last Admin: 05/02/18 11:11 Dose: Not Given Tamsulosin HCl (Flomax) 0.4 mg PO BID [facility] Last Admin: 05/02/18 17:23 Dose: 0.4 mg Zinc Sulfate (Zinc Sulfate 220 Mg Cap) 220 mg PO DAILY [facility] Last Admin: 05/02/18 11:12 Dose: Not Given Zolpidem Tartrate (Ambien) 5 mg PO HS PRN PRN Reason: Insomnia Last Admin: 05/01/18 00:24 Dose: 5 mg - Labs Labs: 05/02/18 07:38 05/02/18 07:38 PT 10.7 SECONDS (9.7-12.2) 04/18/18 05:36 INR 1.0 04/18/18 05:36 APTT 32 SECONDS (21-34) 04/18/18 05:36 Assessment and Plan (1) Osteomyelitis of ankle and foot Status: Acute
[2018-05-02] MEDS: Oxycodone/Acetaminophen 5/325 mg Tab PO PRN (21:10)
[2018-05-02] MEDS: (Lantus) Insulin Glargine, Recombinant SC SCH (21:25)
--- NOTE | 2018-05-02 23:11 | CP.PCM.PN ---
Objective - Vital Signs/Intake and Output Vital Signs (last 24 hours): Temp Pulse Resp BP Pulse Ox 98.6 F 118 H 18 104/55 L 95 05/02/18 16:04 05/02/18 16:04 05/02/18 16:04 05/02/18 16:04 05/02/18 16:04 Intake and Output: 05/02/18 05/03/18 18:59 06:59 Intake Total 1100 350 Output Total 500 350 Balance 600 0 - Medications Medications: Current Medications Acetaminophen (Tylenol 650mg/20.3ml Solution Ud) 650 mg PO Q4H PRN PRN Reason: Pain, Mild (1-3) Ascorbic Acid (Vitamin C 500 Mg Tab) 500 mg PO DAILY [facility] Last Admin: 05/02/18 11:11 Dose: Not Given Collagenase (Santyl) 0 gm TOP DAILY [facility] Last Admin: 05/01/18 09:33 Dose: Not Given Docusate Sodium (Colace) 100 mg PO BID [facility] Last Admin: 05/02/18 17:23 Dose: 100 mg Enoxaparin Sodium (Lovenox) 40 mg SC DAILY [facility] Last Admin: 05/02/18 14:15 Dose: 40 mg Escitalopram Oxalate (Lexapro) 10 mg PO DAILY [facility] Last Admin: 05/02/18 11:11 Dose: Not Given Gabapentin (Neurontin) 300 mg PO TID [facility] Last Admin: 05/02/18 17:23 Dose: 300 mg Vancomycin/Sodium Chloride (Vancomycin 1 Gm/Ns 200 Ml) 1 gm in 200 mls @ 133 mls/hr IVPB Q12H [facility] PRN Reason: Protocol Stop: 05/06/18 00:01 Last Admin: 05/02/18 13:29 Dose: 133 mls/hr Aztreonam 1 gm/ Sodium (Chloride) 100 mls @ 200 mls/hr IVPB Q8H [facility] PRN Reason: Protocol Last Admin: 05/02/18 17:24 Dose: 200 mls/hr Insulin Glargine (Lantus) 8 unit SC HS [facility] Last Admin: 05/02/18 21:25 Dose: 8 u Insulin Human Regular (Novolin R) 0 unit SC ACHS [facility] PRN Reason: Protocol Last Admin: 05/02/18 21:24 Dose: Not Given Metronidazole (Flagyl) 500 mg PO Q8H [facility] Last Admin: 05/02/18 21:24 Dose: 500 mg Midodrine (Proamatine) 2.5 mg PO TID [facility] Last Admin: 05/02/18 17:23 Dose: 2.5 mg Oxycodone/Acetaminophen (Percocet 5/325 Mg Tab) 1 tab PO Q4H PRN PRN Reason: Pain, moderate (4-7) Stop: 05/03/18 19:35 Last Admin: 05/02/18 21:10 Dose: 1 tab Pantoprazole Sodium (Protonix Ec Tab) 40 mg PO DAILY [facility] Last Admin: 05/02/18 11:11 Dose: Not Given Tamsulosin HCl (Flomax) 0.4 mg PO BID [facility] Last Admin: 05/02/18 17:23 Dose: 0.4 mg Zinc Sulfate (Zinc Sulfate 220 Mg Cap) 220 mg PO DAILY [facility] Last Admin: 05/02/18 11:12 Dose: Not Given Zolpidem Tartrate (Ambien) 5 mg PO HS PRN PRN Reason: Insomnia Last Admin: 05/01/18 00:24 Dose: 5 mg - Labs Labs: 05/02/18 07:38 05/02/18 07:38 PT 10.7 SECONDS (9.7-12.2) 04/18/18 05:36 INR 1.0 04/18/18 05:36 APTT 32 SECONDS (21-34) 04/18/18 05:36 Assessment and Plan (1) Cachectic Status: Acute (2) Abdominal pain Status: Acute (3) CAD (coronary artery disease) Status: Acute (4) Dehydration Status: Acute (5) Diabetes mellitus Status: Acute (6) Hematuria Status: Acute
[2018-05-02] MEDS ORDERED: Pantoprazole 20 mg EC Tab PO SCH (23:20)
[2018-05-03 00:04] VITALS: RESP 20
[2018-05-03] MEDS: Vancomycin 1 gm/NS 200 ml 1 GM/200 ML BAG IVPB SCH ×2 (00:23→12:37)
[2018-05-03] MEDS: Aztreonam 1 GM in Sodium Chloride 0.9% 100 ML IVPB SCH ×2 (02:33→10:27)
--- NOTE | 2018-05-03 05:19 | PN ---
Copied To: Alex Siddiqui MD Attending MD: Alex Siddiqui MD DATE: 05/02/2018 SUBJECTIVE: The patient is on antibiotic for osteomyelitis, Staph in wound, pansensitive. The patient is afebrile. He gets pain in the foot at times. His MRI of the foot is examined. had extensive foot problems on the MRI. PHYSICAL EXAMINATION: VITAL SIGNS: Blood pressure 104/55, pulse 118, respiratory rate 16, temperature 98.6. LUNGS: Clear. No rales. No rhonchi. CVS: S1, S2 regular. ABDOMEN: Soft. ASSESSMENT: 1. Osteomyelitis of foot. 2. Coronary artery disease. 3. Type 2 diabetes. 4. Anemia of chronic disease. PLAN: Antibiotics, PICC line, wound care. The patient is for possible transfer to move to the [facility]. Alex Siddiqui MD
[2018-05-03] MEDS: (Novolin R) Insulin Human Regular 100 units/ml vial SC SCH ×2 (07:34→12:16)
[2018-05-03 08:06] VITALS: BP 99/63; PULSE 108; TEMP 98.4
[2018-05-03] MEDS: Enoxaparin 40 mg Syringe SC SCH (09:17)
[2018-05-03] MEDS: Oxycodone/Acetaminophen 5/325 mg Tab PO PRN (09:18)
[2018-05-03] MEDS ORDERED: Metoprolol Succinate 25 mg XL Tab PO SCH (10:00)
--- NOTE | 2018-05-03 12:09 | CP.PCM.PN ---
Subjective - Date & Time of Evaluation Date of Evaluation: 05/03/18 Time of Evaluation: 10:00 - Subjective Subjective: Podiatry Progress Note for Dr. Reyes 77 yo male seen and evaluated at bedside for b/l heel DTI, R>L with underlying OM to bilateral heels. Patient reports the same pain to the lower extremity. Patient denies nausea, fever, shortness of breath, chest pains or chills. Multipodus on during visitation. Dressing is clean dry and intact Objective - Vital Signs/Intake and Output Vital Signs (last 24 hours): Temp Pulse Resp BP Pulse Ox 98.4 F 108 H 20 99/63 L 95 05/03/18 08:04 05/03/18 08:04 05/03/18 08:04 05/03/18 08:04 05/03/18 08:04 Intake and Output: 05/03/18 05/03/18 06:59 18:59 Intake Total 850 Output Total 650 Balance 200 - Medications Medications: Current Medications Acetaminophen (Tylenol 650mg/20.3ml Solution Ud) 650 mg PO Q4H PRN PRN Reason: Pain, Mild (1-3) Ascorbic Acid (Vitamin C 500 Mg Tab) 500 mg PO DAILY [facility] Last Admin: 05/03/18 09:18 Dose: 500 mg Collagenase (Santyl) 0 gm TOP DAILY [facility] Last Admin: 05/01/18 09:33 Dose: Not Given Docusate Sodium (Colace) 100 mg PO BID [facility] Last Admin: 05/03/18 09:18 Dose: 100 mg Enoxaparin Sodium (Lovenox) 40 mg SC DAILY [facility] Last Admin: 05/03/18 09:17 Dose: 40 mg Escitalopram Oxalate (Lexapro) 10 mg PO DAILY [facility] Last Admin: 05/03/18 09:18 Dose: 10 mg Gabapentin (Neurontin) 300 mg PO TID [facility] Last Admin: 05/03/18 09:18 Dose: 300 mg Vancomycin/Sodium Chloride (Vancomycin 1 Gm/Ns 200 Ml) 1 gm in 200 mls @ 133 mls/hr IVPB Q12H [facility] PRN Reason: Protocol Stop: 05/06/18 00:01 Last Admin: 05/03/18 00:23 Dose: 133 mls/hr Aztreonam 1 gm/ Sodium (Chloride) 100 mls @ 200 mls/hr IVPB Q8H [facility] PRN Reason: Protocol Last Admin: 05/03/18 10:27 Dose: 200 mls/hr Insulin Glargine (Lantus) 8 unit SC HS [facility] Last Admin: 05/02/18 21:25 Dose: 8 u Insulin Human Regular (Novolin R) 0 unit SC [facility] PRN Reason: Protocol Last Admin: 05/03/18 07:34 Dose: Not Given Metoprolol Succinate (Toprol Xl) 25 mg PO DAILY [facility] Last Admin: 05/03/18 09:19 Dose: Not Given Metronidazole (Flagyl) 500 mg PO Q8H [facility] Last Admin: 05/03/18 05:24 Dose: 500 mg Midodrine (Proamatine) 2.5 mg PO TID [facility] Last Admin: 05/03/18 09:18 Dose: 2.5 mg Oxycodone/Acetaminophen (Percocet 5/325 Mg Tab) 1 tab PO Q4H PRN PRN Reason: Pain, moderate (4-7) Stop: 05/03/18 19:35 Last Admin: 05/03/18 09:18 Dose: 1 tab Pantoprazole Sodium (Protonix Ec Tab) 20 mg PO DAILY [facility] Last Admin: 05/03/18 09:18 Dose: 20 mg Tamsulosin HCl (Flomax) 0.4 mg PO BID [facility] Last Admin: 05/03/18 09:18 Dose: 0.4 mg Zinc Sulfate (Zinc Sulfate 220 Mg Cap) 220 mg PO DAILY [facility] Last Admin: 05/03/18 09:18 Dose: 220 mg Zolpidem Tartrate (Ambien) 5 mg PO PRN PRN Reason: Insomnia Last Admin: 05/01/18 00:24 Dose: 5 mg - Labs Labs: 05/02/18 07:38 05/02/18 07:38 PT 10.7 SECONDS (9.7-12.2) 04/18/18 05:36 INR 1.0 04/18/18 05:36 APTT 32 SECONDS (21-34) 04/18/18 05:36 - Constitutional Appears: Well, Non-toxic, No Acute Distress - Extremities Exam Extremities Exam: absent: Calf Tenderness Additional comments: Bilateral LE focused exam: Vascular: DP/PT 1/4 bilaterally, TG warm to cool from proximal knees to distal toes, CFT >3 secs x10 digit, no edema noted bilaterally Ortho: pain upon palpation to bilateral heels, no pain elicited with calf compression bilaterally Neuro: Gross sensation intact, protective sensation diminished b/l Derm: Right heel: hyperkeratotic border with necrotic wound base at the plantar posterior aspect of the heel measuring approximately 8 cm x8 cm, absent malodor , superficial opening to the eschar noted at distal lateral aspect of the heel. There was no purulence from the eschar opening today. No erythema, no probe to bone, no undermining, no tunneling, no tracking, no streaking, no abscess or fluctance Left heel: deep tissue injury noted to the posterior plantar heel with deep tissue bruising at the plantar posterior aspect of the heel measuring approximately 6 cm x 7 cm , no opening, no malodor, no drainage, no probe to bone, no undermining, no tracking, no tunneling, no erythema, no purulence, no clinical signs of infection to left, left heel is soft, unable to appreciate fluctanance or abscess - Psychiatric Exam Psychiatric exam: Depressed, Normal Affect Assessment and Plan - Assessment and Plan (Free Text) Assessment: 77 yo male seen and evaluated for bilateral DTI to heels secondary to pressure and DM and underlying OM to heels Plan: Patient seen and evaluated Plan discussed in detail with Dr. Reyes Chart, labs and vitals reviewed; afebrile and absent leukocytosis WBC 5.4 MRI of left hindfoot- IMpression Study was limited secondary to prominent patient motion. Suggestion of 1.4 cm focal area of enhanced signal which may represent developing abscess collection. Findings likely do not represent a gross acute OM however some mild early acute infectious changes cannot be excluded given associated reactive edema. MRI of right hindfoot- Impression: 1. Soft tissue ulceration/defect seen within the posterior soft tissues at the level of the heel. At the level of the posterior calcaneus, there is mild patchy decreased T1 signal, mild patchy increased STIR signal, and mild patchy post-contrast enhancement concerning for early acute and or developing acute osteomyelitis. Clinical correlation. Wounds dressed with santyl, dsd, abd and kerlix WC R heel: staph aureus (04/27) WC L heel: no growth Podiatry with treat conservatively. No surgical intervention at this time IV abx per ID for treatment of OM Continue to wear multipodus boots at all times while in bed Podiatry will follow patient while in house Upon discharge, patient dressing should be done daily. Cleansed bilateral heels with saline solution, pat dry, applied santyl with saline w2d, dsd, abd, and kerlix Patient to continue wearing multipodus boots at all times while in bed.
--- NOTE | 2018-05-03 13:36 | VASCLAB ---
Date of service: 05/02/2018 PROCEDURE: Left Upper Extremity Venous Duplex Exam HISTORY: left arm swelling, r/o dvt PRIORS: None. TECHNIQUE: Left upper extremity, internal jugular, subclavian, axillary, brachial, ulnar, radial, basilic and upper cephalic veins were evaluated. Flow was assessed with color Doppler, compressibility, assessment of phasic flow and augmentation response. Report prepared by Elbert Garcia, JAIDA, RVT FINDINGS: LEFT: 1. Internal Jugular: 1.1. Compressibility - Fully compressible: Thrombus - None : Flow - Phasic: Augmentation -Normal: Reflux - None. 2. Subclavian: 2.1. Compressibility - Fully compressible: Thrombus - None : Flow - Phasic: Augmentation -Normal: Reflux - None. 3. Axillary: 3.1. Compressibility - Fully compressible: Thrombus - None : Flow - Phasic: Augmentation -Normal: Reflux - None. 4. Brachial: 4.1. Compressibility - Fully compressible: Thrombus - None: Flow - Phasic: Augmentation -Normal: Reflux - None. 5. Ulnar: 5.1. Compressibility - Fully compressible: Thrombus - None: Flow - Phasic: Augmentation -Normal: Reflux - None. 6. Radial: 6.1. Compressibility - Fully compressible: Thrombus - None: Flow - Phasic: Augmentation - Normal: Reflux - None. 7. Cephalic: 7.1. Compressibility - Incompressible: Thrombus - Chronic: Flow - Absent : Augmentation -None: Reflux - None. 8. Basilic: 8.1. Compressibility - Partial: Thrombus - Chronic: Flow - Reduced : Augmentation -None: Reflux - None. OTHER FINDINGS: Left: GURVINDER Cohen notified about the findings. 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 Normal venous flow noted in the right internal jugular and right subclavian veins.
[2018-05-03] MEDS: Collagenase 250 Units/gm Ointment(30 gm) TOP SCH (14:16)
--- NOTE | 2018-05-03 14:25 | CP.PCM.PN ---
Subjective - Date & Time of Evaluation Date of Evaluation: 05/03/18 Time of Evaluation: 11:25 - Subjective Subjective: Patient seen today, denies any chest pain, abdominal pain, sob, c/o generalized pain , improved with pain medications, tolerating diet , no hematuria noted No overnight event reported by RN a febrile Objective - Vital Signs/Intake and Output Vital Signs (last 24 hours): Temp Pulse Resp BP Pulse Ox 98.4 F 108 H 20 99/63 L 95 05/03/18 08:04 05/03/18 08:04 05/03/18 08:04 05/03/18 08:04 05/03/18 08:04 Intake and Output: 05/03/18 05/03/18 06:59 18:59 Intake Total 850 Output Total 650 Balance 200 - Labs Labs: 05/02/18 07:38 05/02/18 07:38 PT 10.7 SECONDS (9.7-12.2) 04/18/18 05:36 INR 1.0 04/18/18 05:36 APTT 32 SECONDS (21-34) 04/18/18 05:36 Assessment and Plan - Assessment and Plan (Free Text) Assessment: A/P 77yr old male with PMHx of perforated duodenal ulcer 12/2017 s/p exlap and rachelle patch repair, CAD s/p cardiac cath, chronic constipation presented to the emergency room with abdominal pain CT Abd/Pelvis: shows no acute findings, mild retained fecal matter, Dr. Garcia called for surgical consult and No acute surgical intervention needed and Recommend stool softeners patient tolerated diet without issues. Patients developed acute hematuria during hospital stay and required blood transfusion from acute blood loss and Dr. Longo consulted for hematuraia and and cystoscopy performed with multiple blood clots and no tumor , Dr. Longo recommends no blood thinners Bone scan + OM and Dr. Fuentes on consult recommends to continue antibiotics - vanco q12 x for 6 weeks Todays vanco trough 27.8 and d/w Dr. Siddiqui, will hold todays dose and will continue wiht vanco 1 gm daily and do vanco trough q weekly to adjust dose D/W Dr. Siddiqui pt stable for discharge back to [facility] and Dr. Siddiqui will follow the patient at [facility]
--- NOTE | 2018-05-03 21:34 | CP.PCM.DIS ---
Provider - Provider Date of Admission: 04/18/18 08:27 Attending physician: Alex Siddiqui MD Diagnosis - Discharge Diagnosis (1) Cachectic Status: Acute (2) Abdominal pain Status: Acute (3) CAD (coronary artery disease) Status: Acute (4) Dehydration Status: Acute (5) Diabetes mellitus Status: Acute (6) Hematuria Status: Acute Hospital Course - Lab Results Lab Results: Micro Results 04/25/18 22:24 Foot - Left Gram Stain - Final 04/25/18 22:24 Foot - Left Wound Culture - Final No growth. 04/27/18 07:53 Foot - Right Gram Stain - Final 04/27/18 07:53 Foot - Right Wound Culture - Final Staphylococcus Aureus 04/25/18 22:24 Foot - Right Gram Stain - Final 04/25/18 22:24 Foot - Right Wound Culture - Final Staphylococcus Aureus 04/21/18 06:40 Urine,Paulson Urine Culture - Final No Growth (<1,000 CFU/ML) Most Recent Lab Values WBC 5.4 K/uL (4.8-10.8) 05/02/18 07:38 RBC 3.40 Mil/uL (4.40-5.90) L 05/02/18 07:38 Hgb 9.4 g/dL (12.0-18.0) L 05/02/18 07:38 Hct 28.8 % (35.0-51.0) L 05/02/18 07:38 MCV 84.6 fL (80.0-94.0) 05/02/18 07:38 MCH 27.6 pg (27.0-31.0) 05/02/18 07:38 MCHC 32.6 g/dL (33.0-37.0) L 05/02/18 07:38 RDW 18.1 % (11.5-14.5) H 05/02/18 07:38 Plt Count 232 K/uL (130-400) 05/02/18 07:38 MPV 8.1 fL (7.2-11.7) 05/02/18 07:38 Neut % (Auto) 60.5 % (50.0-75.0) 05/02/18 07:38 Lymph % (Auto) 21.8 % (20.0-40.0) 05/02/18 07:38 Blair % (Auto) 10.3 % (0.0-10.0) H 05/02/18 07:38 Eos % (Auto) 6.6 % (0.0-4.0) H 05/02/18 07:38 Baso % (Auto) 0.8 % (0.0-2.0) 05/02/18 07:38 Neut # (Auto) 3.2 K/uL (1.8-7.0) 05/02/18 07:38 Lymph # (Auto) 1.2 K/uL (1.0-4.3) 05/02/18 07:38 Blair # (Auto) 0.6 K/uL (0.0-0.8) 05/02/18 07:38 Eos # (Auto) 0.4 K/uL (0.0-0.7) 05/02/18 07:38 Baso # (Auto) 0.0 K/uL (0.0-0.2) 05/02/18 07:38 Neutrophils % (Manual) 90 % (50-75) H 04/18/18 05:36 Lymphocytes % (Manual) 6 % (20-40) L 04/18/18 05:36 Monocytes % (Manual) 4 % (0-10) 04/18/18 05:36 Platelet Estimate Normal (NORMAL) 04/18/18 05:36 Poikilocytosis (manual Slight 04/18/18 05:36 Anisocytosis (manual) Slight 04/18/18 05:36 PT 10.7 SECONDS (9.7-12.2) 04/18/18 05:36 INR 1.0 04/18/18 05:36 APTT 32 SECONDS (21-34) 04/18/18 05:36 pO2 30 mm/Hg (30-55) 04/18/18 05:20 VBG pH 7.41 (7.32-7.43) 04/18/18 05:20 VBG pCO2 53 mmHg (40-60) 04/18/18 05:20 VBG HCO3 29.6 mmol/L 04/18/18 05:20 VBG Total CO2 35.2 mmol/L (22-28) H 04/18/18 05:20 VBG O2 Sat (Calc) 59.4 % (40-65) 04/18/18 05:20 VBG Base Excess 7.3 mmol/L (0.0-2.0) H 04/18/18 05:20 VBG Potassium 4.2 mmol/L (3.6-5.2) 04/18/18 05:20 Sodium 138.0 mmol/l (132-148) 04/18/18 05:20 Chloride 103.0 mmol/L (98-107) 04/18/18 05:20 Glucose 351 mg/dl (75-110) H 04/18/18 05:20 Lactate 1.7 mmol/L (0.7-2.1) 04/18/18 05:20 Sodium 141 mmol/L (132-148) 05/02/18 07:38 Potassium 4.1 mmol/L (3.6-5.2) 05/02/18 07:38 Chloride 110 mmol/L (98-107) H 05/02/18 07:38 Carbon Dioxide 26 mmol/L (22-30) 05/02/18 07:38 Anion Gap 10 (10-20) 05/02/18 07:38 BUN 10 mg/dL (9-20) 05/02/18 07:38 Creatinine 0.6 mg/dL (0.8-1.5) L 05/02/18 07:38 Est GFR ( Amer) > 60 05/02/18 07:38 Est GFR (Non-Af Amer) > 60 05/02/18 07:38 POC Glucose (mg/dL) 171 mg/dL (65-110) H 05/03/18 11:16 Random Glucose 238 mg/dL (75-110) H 05/02/18 07:38 Calcium 10.2 mg/dl (8.6-10.4) 05/02/18 07:38 Magnesium 1.4 mg/dL (1.6-2.3) L 04/28/18 08:20 Total Bilirubin 0.2 mg/dL (0.2-1.3) 04/29/18 08:58 AST 15 U/L (17-59) L D 04/29/18 08:58 ALT 23 U/L (21-72) 04/29/18 08:58 Alkaline Phosphatase 117 U/L (38-126) 04/29/18 08:58 Total Protein 5.4 g/dL (6.3-8.3) L 04/29/18 08:58 Albumin 2.4 g/dL (3.5-5.0) L 04/29/18 08:58 Globulin 3.0 gm/dL (2.2-3.9) 04/29/18 08:58 Albumin/Globulin Ratio 0.8 (1.0-2.1) L 04/29/18 08:58 Lipase 137 U/L (23-300) 04/18/18 05:36 Prostate Specific Ag 0.466 ng/mL (0.00-4.0) 04/22/18 07:27 Venous Blood Potassium 4.2 mmol/L (3.6-5.2) 04/18/18 05:20 Urine Color Red (YELLOW) 04/20/18 15:54 Urine Clarity Turbid (Clear) 04/20/18 15:54 Urine pH 6.0 (5.0-8.0) 04/20/18 15:54 Ur Specific Dutton 1.005 (1.003-1.030) 04/20/18 15:54 Urine Protein 1+ mg/dL (NEGATIVE) H 04/20/18 15:54 Urine Glucose (UA) 3+ mg/dL (Normal) H 04/20/18 15:54 Urine Ketones Negative mg/dL (NEGATIVE) 04/20/18 15:54 Urine Blood 3+ (NEGATIVE) H 04/20/18 15:54 Urine Nitrate Negative (NEGATIVE) 04/20/18 15:54 Urine Bilirubin Negative (NEGATIVE) 04/20/18 15:54 Urine Urobilinogen Normal mg/dL (0.2-1.0) 04/20/18 15:54 Ur Leukocyte Esterase Trace Lenore/uL (Negative) 04/20/18 15:54 Urine WBC (Auto) 10 /hpf (0-5) H 04/20/18 15:54 Urine RBC (Auto) 9175 /hpf (0-3) H 04/20/18 15:54 Ur Squamous Epith Cells 6 /hpf (0-5) H 04/20/18 15:54 Urine Bacteria Few (<OCC) H 04/20/18 15:54 Vancomycin Trough 27.8 ug/mL (5.0-10.0) H 05/03/18 11:17 Blood Type O POSITIVE 04/21/18 15:24 Antibody Screen Negative 04/21/18 15:24 Discharge Exam - Head Exam Head Exam: NORMOCEPHALIC Discharge Plan - Discharge Medications Prescriptions: Vancomycin/0.9 % Sod Chloride [Vanco 1 Gram/150 ml-0.9% NaCl] 1 gm IV DAILY #28 plast..bag - Follow Up Plan Condition: FAIR Disposition: REHAB FACILITY/REHAB UNIT Instructions: Osteomyelitis (DC), Enoxaparin, Vancomycin, Acute Abdominal Pain (DC) Additional Instructions: Pt may be discharged back to [facility] as per Dr. Siddiqui. Continue Vancomycin 1gm daily x 6 weeks until June 10. Monitor R arm closely for infiltration. Lovenox 40mg SC x 1 week.then aspirin Bilateral leg wound care, Clean daily with NS, apply santyl and Kerlinx daily, Kepp heel pads on, follow up with podiatry Keep left arm elevated with pillow Labs q/sean: CBC, BMP, Vanco trough, keep trough level between 10-20, F/u with Infectious disease MD. Call Dr. Sawyer for podiatry consult Referrals: Alex Siddiqui MD [Staff Provider] -
== END 2018-05-03 14:22 | DRG 948 ==
LOC: C.ER 04:38 → SUPCPDRO 04:38 → C.9E 08:27 → C.5S 08:53 → C.3T 04-26 22:26
PROVIDERS: ADMIT Internal Medicine; ATTEND Internal Medicine
PROC: 3E1K88X Irrigation of Genitourinary Tract using Irrigating Substance, Via Natural or Artificial Opening Endoscopic, Diagnostic (ICD-10-PCS; 2018-04-27)
PROC: 02HV33Z Insertion of Infusion Device into Superior Vena Cava, Percutaneous Approach (ICD-10-PCS; principal; 2018-05-02)
DX: R64 Cachexia (principal); I82.722 Chronic embolism and thrombosis of deep veins of left upper extremity; M86.171 Other acute osteomyelitis, right ankle and foot; D63.8 Anemia in other chronic diseases classified elsewhere; E11.42 Type 2 diabetes mellitus with diabetic polyneuropathy; L89.629 Pressure ulcer of left heel, unspecified stage; L89.619 Pressure ulcer of right heel, unspecified stage; E11.621 Type 2 diabetes mellitus with foot ulcer; Z79.4 Long term (current) use of insulin; I10 Essential (primary) hypertension; I25.10 Atherosclerotic heart disease of native coronary artery without angina pectoris; E78.00 Pure hypercholesterolemia, unspecified; E86.0 Dehydration; K21.9 Gastro-esophageal reflux disease without esophagitis; R33.8 Other retention of urine; E11.69 Type 2 diabetes mellitus with other specified complication; N30.91 Cystitis, unspecified with hematuria; N40.1 Benign prostatic hyperplasia with lower urinary tract symptoms; B95.61 Methicillin susceptible Staphylococcus aureus infection as the cause of diseases classified elsewhere; B96.89 Other specified bacterial agents as the cause of diseases classified elsewhere; R10.9 Unspecified abdominal pain